=== PATIENT | male | born 1945 | race Caucasian/White ===

== ENCOUNTER 2023-08-05 12:43 | Outpatient (CLI) | payer MEDICARE, BC, SELFPAY ==
--- OUTSIDE RECORDS SUMMARY | 2023-08-05 12:52 | XMS_ITS | Encounter Summary ---
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 Organization [facility] Address [address] [place] [address] Support Name Relationship Address Phone JAVIER DE PAZ Next of Kin [phone] [place] [address] LC DE PAZLU Emergency Contact [phone] [place] [address] JAVIER DE PAZ Next of Kin [phone] [address] Insurance Providers: All historical and current Section Date Range: From patient's date of to the date document was created. This section includes the names of all active insurance providers for the patient. Insurance Provider Type of Coverage Plan Name Start of Policy Coverage End of Policy Coverage Group Number Member ID Insurance Provider's Telephone Number Policy Kevin's Name Patient's Relationship to Policy Kevin BS [place] [facility] [id number] Jan 05, 2010 [id number] [employer] ANUSHA DE PAZ PATIENT MEDICARE ([facility]) MEDICARE () PART A Jan 05, 2010 PART A [id number] [phone] ANUSHA DE PAZ PATIENT MEDICARE ([facility]) MEDICARE () PART B Jan 05, 2010 PART B [id number] [phone] ANUSHA DE PAZ PATIENT MEDICARE ([place]) MEDICARE () PART A Jan 05, 2010 PART A [id number] [facility] ANUSHA DE PAZ PATIENT MEDICARE (WN) MEDICARE (M) PART A Jan 05, 2010 PART A [id number] [phone] ANUSHA DE PAZ PATIENT MEDICARE ([facility]) MEDICARE (M) PART B Jan 05, 2010 PART B [id number] [facility] [phone] ANUSHA DE PAZ PATIENT Selected Encounter This section includes the information on record at [facility] for the Encounter. Date/Time Encounter Type Encounter Description Reason Pro vider Source Feb 19, 2023 08:08 PM Outpatient Encounter COMMUNITY CARE CONSULT I[facility] Encounter Template Text not used by [facility] Plan of Treatment: Future Appointments (+ 6 months) and Future Tests (+/- 45 days) The Plan of Treatment section includes future care activities for the patient from all [facility] treatmentfacilities. This section includes future appointments and future orders which are active, pending or scheduled. Future Appointments This section includes appointments that were scheduled to occur 6 months from the date of the Encounter, up to a maximum of 20 appointments. The data comes from all [facility] treatment facilities. Appointment Date/Time Appointment Type Appointme nt Facility Name Apr 16, 2023 12:00 PM [facility] Jul 17, 2023 03:00 PM [facility] Social History: Smoking Status (Most current) and Tobacco Use (All prior to encounter date) This section includes the most current, and the historical, smoking and tobacco- related health factors from the [facility] facility where the Encounter took place. Current Smoking Status This section includes the most current smoking, or tobacco-related health factor, from the [facility] facility where the Encounter took place. Date/Time Current Smoking Status Comment Liam itheather August 07, 2022 01:30 PM VA-TOBACCO FORMER USER [facility] Tobacco Use History This section includes a history of the smoking, or tobacco-related health factors, that were collected on or before the date of the Encounter. The data comes from the [facility] facility where the Encounter took place. 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 [facility] Mar 29, 2019 10:59 AM VA-TOBACCO USE MED NO [facility] Mar 29, 2019 10:59 AM VA-TOBACCO USE WI 30 MIN OF WAKE UP [facility] Mar 29, 2019 10:59 AM VA-TOBACCO USER EVERY DAY [facility] Feb 17, 2018 03:39 PM VA-TOBACCO USE 30 YEARS OR MORE [facility] Feb 17, 2018 03:39 PM VA-TOBACCO USE ADVICE [facility] Feb 17, 2018 03:39 PM VA-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 USE 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 NO [facility] Feb 17, 2018 03:39 PM VA-TOBACCO USE MED NO [facility] Feb 17, 2018 03:39 PM VA-TOBACCO USE WI 30 MIN OF WAKE UP [facility] Feb 17, 2018 03:39 PM VA-TOBACCO USER EVERY DAY [facility] Feb 12, 2017 12:38 PM CURRENT TOBACCO USER [facility] Apr 25, 2015 07:50 AM CURRENT TOBACCO USER [facility] Apr 21, 2014 08:25 AM CURRENT TOBACCO USER [facility] Apr 20, 2013 10:04 AM CURRENT TOBACCO USER [facility] Mar 20, 2012 09:53 AM CURRENT TOBACCO USER [facility] Feb 06, 2011 09:44 AM CURRENT TOBACCO USER [facility] Jan 02, 2010 09:22 AM CURRENT TOBACCO USER [facility] Encounter Notes: All associated encounter notes This section contains the clinical notes associated to the Encounter. Date/Time Encounter Note(s) Provider Source Feb 19, 2023 08:08 PM PHARMACY NOTE: LOCAL TITLE: PHARMACY NON [facility] CARE MEDICATIONS STANDARD TITLE: PHARMACY NOTE DATE OF NOTE: FEB 19, 2023@20:08 ENTRY DATE: FEB 19, 2023@20:08:55 AUTHOR: ZULEYKA ESTRADA EXP COSIGNER: URGENCY: STATUS: COMPLETED [facility] RECEIVED electronic prescription(s) (eRX(s)) from NON[facility] Provider: VANITA WELCH Date eRX received: Feb Outside (NON-[facility]) provider not authorized to write for prescription(s) through [facility] pharmacy. Prescription request REDIRECTED via FAX to [facility] for review: eRx Reference #: [id number] eRx Prescription Information: eRx Drug: furosemide 20 mg tablet (LASIX) eRx Qty: 45 eRx Refills: 3 eRx Days Supply: eRx Written Date: FEB 19, 2023 eRx Issue Date: Prohibit Renewals: No eRx Sig: Lasix to 20 mg on Friday, Friday and Friday. eRx Reference #: [id number] eRx Drug: potassium chloride ER 10 mEq tablet,extended release(part/cryst) (potassium chloride) eRx Qty: 45 eRx Refills: 3 eRx Days Supply: eRx Written Date: FEB 19, 2023 eRx Issue Date: Prohibit Renewals: No eRx Sig: Potassium 10 meq on Friday, Friday and Friday. /naina/ ZULEYKA ESTRADA pharmacist Signed: 02/19/2023 20:10 ZULEYKA ESTRADA [facility]
--- OUTSIDE RECORDS SUMMARY | 2023-08-05 12:52 | XMS_ITS | Continuity of Care Document ---
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 It does not include entries that were removed or entered in error. Problem Status Onset Date Problem Type Date of Resolution Comments Source CVD - Cerebrovascular Disease ([facility] 39894842) Active 03/19/20 20 Condition May 01, 2020 Entered By: YOAV CHAUHAN Comment: 03/19/20: L MCA CVA, Admit ANW. Cardio-embol ic d/t Warfarin DC [facility] CAD - Coronary Artery Disease ([facility] 61608193) Active 01/27/20 20 Condition Mar 13, 2020 Entered By: YOAV CHAUHAN Comment: 01/27/20: LAD and Dx stented w/SATHYA at [facility]. Plavix +ASA thru 01/26/21 [facility] Peripheral arterial insufficiency Active 01/21/20 20 Condition Mar 13, 2020 Entered By: YOAV CHAUHAN Comment: 01/21/20: L femoral Art occlusion per [facility]-->Fem -Tibial bypass planned [facility] Allergic rhinitis (SNOMED CT 07988807) Active Condition [facility] Atrial fibrillation (SNOMED CT 56703163) Active Condition Apr 26, 2015 Entered By: YOAV CHAUHAN Comment: Warfarin through Miryam Rodriguez [facility] Co-Managed Care Active Condition Dec 25, 2017 Entered By: YOAV CHAUHAN Comment: Dr Garcia, Michael [place], F: [phone] , [facility] COPD - Chronic Obstructive Pulmonary Disease ([facility] [id number]) Active Condition Dec 25, 2017 Entered By: YOAV CHAUHAN Comment: Mometasone & Albuterol MDI's [facility] [place] of toe Active Condition Sep 08, 2019 Entered By: YOAV CHAUHAN Comment: R middle toe [facility] Current smoker Active Condition Apr 082015 Entered By: YOAV CHAUHAN Comment: Cigars, not cigarettes [facility] Essential hypertension (SNOMED CT 80549466) Active Condition [facility] Glucose intolerance Active Condition [facility] Nocturia due to benign prostatic hypertrophy Active Condition [facility] Health Maintenance (ICD-9-CM V65.9) Inactive Condition 04/26/2015 [place] MANCILLA [facility] Diagnosis: ICD-10-CM Z00.01 Encounter for general adult medical exam w abnormal findings [facility] Diagnosis [facility] Diagnosis: ICD-10-CM Z79.01 halfway (current) use of anticoagulants Active Diagnosis [facility] Diagnosis: ICD-10-CM Z76.0 Encounter for issue of repeat prescription Active Diagnosis [facility] Medications Combined list of outpatient medications from Department of Defense and Veterans Affairs facilities.Medications provided include 1) outpatient medications from the last 15 months, and 2) patient-reported medications. Medication Details Route Status Patient Instructions Prescription Expires Prescription Number Last Dispense Date Ordering Provider Order Date Order Qty Source ALBUTEROL 90MCG/ACTUA T (CFC-F) INHL,ORAL,8 .5GM DOSE COUNTER INHALE 2 PUFFS BY INHALATI ON FOUR TIMES A DAY NEEDED FOR SHORTNES S OF BREATH INHALA TION HOLD 07/17/2024 [id number] AFRICA CHAUHAN 2023 2 [facility] ALBUTEROL 90MCG/ACTUA T (CFC-F) INHL,ORAL,8 .5GM DOSE COUNTER INHALE 2 PUFFS BY INHALATI ON FOUR TIMES A DAY NEEDED FOR SHORTNES S OF BREATH INHALA TION DISCONT INUED 08/08/2023 [id number] 3 AFRICA CHAUHAN 2022 2 [facility] APIXABAN 5MG TAB TAKE ONE TABLET BY MOUTH EVERY 12 HOURS TO PREVENT BLOOD CLOTS AND STROKE (ELIQUIS ) ORALLY ACTIVE 05/29/2024 [id number] 4 MARIANO GARCIA 2023 180 [facility] APIXABAN 5MG TAB TAKE ONE TABLET BY MOUTH EVERY 12 HOURS TO PREVENT BLOOD CLOTS AND STROKE (ELIQUIS ) ORALLY DISCONT INUED 05/09/2023 [id number] 3 MARIANO GARCIA 2022 180 [facility] APIXABAN 5MG TAB TAKE ONE TABLET BY MOUTH EVERY 12 HOURS TAKE DIRECTED BY [facility], . (TRAVELI NG VET-CONT INUATION OF THERAPY) ORAL 06/08/2022 [id number] 3 CÉSAR GALLEGOS 2022 28 [facility] KEATING [facility] CHOLECALCIF JONNA 25MCG (1,000UNIT) TAB TAKE FIVE TABLETS BY MOUTH QOD ORALLY ACTIVE AFRICA CHAUHAN 2016 [facility] FLUOCINONID E 0.1% CREAM,TOP APPLY A THIN LAYER TOPICALL Y TWICE A DAY NEEDED FOR RASH TOPICA LLY ACTIVE 12/13/2023 [id number] 3 AFRICA CHAUHAN 2022 60 [facility] FLUTICASONE 250MCG/SALM ETEROL 50MCG INHL,ORAL,D ISKUS,60 INHALE 1 PUFF BY INHALATI ON TWICE A DAY FOR COPD INHALA TION ACTIVE 07/17/2024 [id number] 4 AFRICA CHAUHAN 2023 3 [facility] FLUTICASONE 250MCG/SALM ETEROL 50MCG INHL,ORAL,D ISKUS,60 INHALE 1 PUFF BY INHALATI ON TWICE A DAY FOR COPD THIS REPLACES YOUR MOMETASO NE INHALA TION DISCONT INUED 08/08/2023 [id number] 4 AFRICA CHAUHAN 2022 3 [facility] FUROSEMIDE 20MG TAB TAKE ONE TABLET BY MOUTH THREE TIMES A WEEK FOR HEART FAILURE ORALLY ACTIVE 02/25/2024 [id number] 3 Hong DONAHUE 2022 39 [facility] FUROSEMIDE 20MG TAB TAKE ONE TABLET BY MOUTH EVERY OTHER DAY FOR HEART FAILURE ORALLY DISCONT INUED (EDIT) 08/13/2023 [id number] 3 AFRICA CHAUHAN [place] 2022 45 [facility] FUROSEMIDE 20MG TAB TAKE ONE TABLET BY MOUTH EVERY MORNING FOR HEART FAILURE ORALLY DISCONT INUED 08/08/2023 [id number] 3 AFRICA CHAUHAN [place] 2022 90 [facility] FUROSEMIDE 20MG TAB TAKE ONE TABLET BY MOUTH EVERY MORNING FOR HEART FAILURE ORALLY DISCONT INUED 11/16/2022 [id number] 3 CHAUHAN, AFRICA CHARLTON 2021 90 [facility] HYDROCHLORO THIAZIDE 12.5MG TAB TAKE ONE TABLET BY MOUTH EVERY DAY FOR BLOOD PRESSURE ORALLY DISCONT INUED 08/08/2023 [id number] 3 CHAUHAN, AFRICA CHARLTON 2022 90 [facility] METOPROLOL SUCCINATE 100MG TAB,SA TAKE ONE AND ONE-HALF TABLETS BY MOUTH EVERY DAY ORALLY DISCONT INUED 11/16/2022 [id number] 3 TIEN AFRICA CHARLTON 2021 135 [facility] METOPROLOL SUCCINATE 50MG TAB,SA TAKE THREE TABLETS BY MOUTH EVERY DAY FOR BLOOD PRESSURE ORALLY DISCONT INUED 08/08/2023 [id number] 3 CHAUHAN, AFRICA CHARLTON 2022 270 [facility] METOPROLOL TARTRATE 100MG TAB TAKE ONE TABLET BY MOUTH TWICE A DAY FOR BLOOD PRESSURE ORALLY ACTIVE 12/13/2023 [id number] 4 TIEN AFRICA CHARLTON 2022 180 [facility] MOMETASONE FUROATE 220MCG/INHL INHL,ORAL,6 0 INHALE 1 PUFF BY MOUTH TWICE A DAY TO PREVENT TROUBLE BREATHIN G TWIST COVER ON AND OFF TO LOAD NEXT DOSERI NSE MOUTH AFTER USING * DO NOT WASH INHALER ORALLY DISCONT INUED 11/16/2022 [id number] 3 CHAUHAN, AFRICA LATESHA 2021 3 [facility] NIFEDIPINE (EQV-CC) 60MG TAB,SA TAKE ONE TABLET BY MOUTH EVERY DAY FOR BLOOD PRESSURE ORALLY DISCONT INUED BY PROVIDE R 08/08/2023 [id number] 3 AFRICA CHAUHAN 2022 90 [facility] NIFEDIPINE (EQV-CC) 60MG TAB,SA TAKE ONE TABLET BY MOUTH EVERY DAY FOR BLOOD PRESSURE ORALLY DISCONT INUED 09/11/2022 [id number] 3 AFRICA CHAUHAN 2022 90 [facility] NIFEDIPINE (EQV-CC) 60MG TAB,SA TAKE ONE TABLET BY MOUTH EVERY DAY FOR BLOOD PRESSURE ORALLY DISCONT INUED 08/28/2022 [id number] 3 AFRICA CHAUHAN 2022 90 [facility] NIFEDIPINE (EQV-CC) 90MG TAB,SA TAKE ONE TABLET BY MOUTH EVERY DAY FOR BLOOD PRESSURE ORALLY SUSPEND ED 07/17/2024 [id number] 4 AFRICA CHAUHAN 2023 90 [facility] NIFEDIPINE (EQV-CC) 90MG TAB,SA TAKE ONE TABLET BY MOUTH EVERY DAY FOR BLOOD PRESSURE INCREASE D DOSE PER CO-MANAG ED CARE INCREASE D DOSE PER CO-MANAG ED CARE ORALLY DISCONT INUED 12/13/2023 [id number] 4 AFRICA CHAUHAN 2022 90 [facility] POTASSIUM CHLORIDE 10MEQ TAB,SA TAKE ONE TABLET BY MOUTH THREE TIMES A WEEK FOR POTASSIU M SUPPLEME NT TAKE WITH FUROSEMI DE ORALLY ACTIVE 02/25/2024 [id number] 3 Hong DONAHUE UCESAR A 2022 39 [facility] POTASSIUM CHLORIDE 10MEQ TAB,SA TAKE ONE TABLET BY MOUTH EVERY OTHER DAY FOR POTASSIU M SUPPLEME NT ORALLY DISCONT INUED (EDIT) 08/13/2023 [id number] 3 AFRICA CHAUHAN 2022 45 [facility] POTASSIUM CHLORIDE 10MEQ TAB,SA TAKE ONE TABLET BY MOUTH EVERY DAY FOR CONGESTI VE HEART FAILURE ORALLY DISCONT INUED 08/08/2023 [id number] 3 AFRICA CHAUHAN 2022 90 [facility] POTASSIUM CHLORIDE 10MEQ TAB,SA TAKE ONE TABLET BY MOUTH EVERY DAY FOR CONGESTI VE HEART FAILURE ORALLY DISCONT INUED 11/16/2022 [id number] 3 AFRICA CHAUHAN 2021 90 [facility] ROSUVASTATI N CA 20MG TAB TAKE ONE TABLET BY MOUTH AT BEDTIME FOR CORONARY ARTERY DISEASE ORALLY HOLD 07/17/2024 [id number] AFRICA CHAUHAN 2023 90 [facility] ROSUVASTATI N CA 20MG TAB TAKE ONE TABLET BY MOUTH AT BEDTIME FOR CORONARY ARTERY DISEASE ORALLY DISCONT INUED 08/08/2023 [id number] 4 AFRICA CHAUHAN 2022 90 [facility] ROSUVASTATI N CA 40MG TAB TAKE ONE-HALF TABLET BY MOUTH AT BEDTIME FOR CORONARY ARTERY DISEASE ORALLY DISCONT INUED 11/15/2022 [id number] 3 AFRICA CHAUHAN 2021 45 [facility] TAMSULOSIN HCL 0.4MG CAP TAKE ONE CAPSULE BY MOUTH EVERY EVENING FOR PROSTATE ORALLY ACTIVE 07/17/2024 [id number] 4 AFRICA CHAUHAN 2023 30 [facility] Allergies, Adverse Reactions, Alerts Combined list of allergies from Department of Defense and Veterans Affairs facilities. It does not include entries that were removed or entered in error. Substance Category Reaction Severity Reaction type Status Date Reported Comments Source LISINOPRIL Propensity to adverse reactions to drug (finding) Cough active 0 [facility] Immunizations Combined list of available immunizations from the Department of Defense and Veterans Affairs facilities. Immunization Series Date Given Administered By Site Reaction Lot Number CVX Code Drug Admissions Assistant Status Comments Source COVID-19 ([employer]), MRNA, LNP-S, BIVALENT, PF, 30 MCG/0.3 ML DOSE 2022 300 complet ed [facility] COVID-19 (PFIZER), MRNA, LNP-S, PF, 30 MCG/0.3 ML DOSE, JAMES-SUCROSE (AGES 12+ YEARS) 2021 217 complet ed [facility] COVID-19 (PFIZER), MRNA, LNP-S, PF, 30 MCG/0.3 ML DOSE 2020 208 complet ed [facility] ZOSTER RECOMBINANT 2 2020 187 complet [facility] INFLUENZA VACCINE, QUADRIVALENT, ADJUVANTED 2020 205 complet ed [facility] INFLUENZA, UNSPECIFIED FORMULATION 2020 88 complet ed [facility] ZOSTER RECOMBINANT 1 2020 187 complet [facility] COVID-19 (PFIZER), MRNA, LNP-S, PF, 30 MCG/0.3 ML DOSE 2 2020 208 complet ed [facility] COVID-19 (PFIZER), MRNA, LNP-S, PF, 30 MCG/0.3 ML DOSE 1 2020 208 complet ed [facility] INFLUENZA VACCINE, QUADRIVALENT, ADJUVANTED 2019 205 complet ed [facility] INFLUENZA, TRIVALENT, ADJUVANTED 2018 168 complet ed [facility] INFLUENZA, SEASONAL, INJECTABLE 2018 141 complet ed [facility] INFLUENZA, SEASONAL, INJECTABLE 2017 141 complet ed [facility] INFLUENZA, TRIVALENT, ADJUVANTED 2017 168 complet ed [facility] INFLUENZA, HIGH DOSE SEASONAL 2016 135 complet ed [facility] PNEUMOCOCCAL POLYSACCHARID E PPV23 2016 33 complet ed [employer] , [id number], 06/03/18 [facility] TD (ADULT), 2 LF TETANUS TOXOID, PRESERVATIVE FREE, ADSORBED 2016 09 complet ed [employer] [id number], 12/19/18 [facility] INFLUENZA, HIGH DOSE SEASONAL 2016 135 complet ed [facility] PNEUMOCOCCAL POLYSACCHARID E PPV23 2016 33 complet ed [facility] INFLUENZA, HIGH DOSE SEASONAL 2015 135 complet ed [facility] PNEUMOCOCCAL CONJUGATE PCV 13 2015 133 complet ed [employer] [facility] PNEUMOCOCCAL CONJUGATE PCV 13 2014 133 complet ed [facility] INFLUENZA, UNSPECIFIED FORMULATION 2013 88 complet ed [facility] INFLUENZA, UNSPECIFIED FORMULATION 2013 88 complet ed [facility] INFLUENZA, UNSPECIFIED FORMULATION 2011 88 complet ed [facility] INFLUENZA, UNSPECIFIED FORMULATION 2010 88 complet ed [facility] PNEUMOCOCCAL, UNSPECIFIED FORMULATION 2009 109 complet ed [employer],093 02, 011 [facility] TDAP 2009 115 complet ed [facility] ZOSTER LIVE 2008 121 complet ed [facility] TDAP 2007 115 complet ed private [facility] ZOSTER LIVE 2006 121 complet ed [facility] Results Combined list of recent chemistry, hematology and other laboratory results from Department of Defense and Veterans Affairs, ranging from 15 months to all on record, depending upon the facility. Order Name Results Value Reference Range Date Interpretation Specimen Comments Source URINALYS IS COLOR OF URINE COLORLES S 07/16 Specimen Type: URINE No comment entered. Ordering Provider: TERRENCE CHAUHAN Report Released Date/Time: Jul 17, 2023 04:23 PM Reporting Lab: [facility] [address] Performing Lab: [facility] [address] [facility] URINALYS IS SPECIFIC GRAVITY OF URINE 1.006 1.003 - 1.035 07/16 Specimen Type: URINE No comment entered. Ordering Provider: TERRENCE CHAUHAN Report Released Date/Time: Jul 17, 2023 04:23 PM Reporting Lab: [facility] [address] Performing Lab: [facility] [address] [facility] URINALYS IS BILIRUBIN. TOTAL [PRESENCE] IN URINE BY TEST STRIP NEGATIVE 07/16 Specimen Type: URINE No comment entered. Ordering Provider: TERRENCE CHAUHAN Report Released Date/Time: Jul 17, 2023 04:23 PM Reporting Lab: [facility] [address] Performing Lab: [facility] [address] [place] [facility] URINALYS IS KETONES [MASS/VOLU ME] IN URINE BY TEST STRIP NEGATIVE 07/16 Specimen Type: URINE No comment entered. Ordering Provider: TERRENCE CHAUHAN Report Released Date/Time: Jul 17, 2023 04:23 PM Reporting Lab: [facility] [address] Performing Lab: [facility] [address] [place] [facility] URINALYS IS GLUCOSE [MASS/VOLU ME] IN URINE BY TEST STRIP NEGATIVE 07/16 Specimen Type: URINE No comment entered. Ordering Provider: TERRENCE CHAUHAN Report Released Date/Time: Jul 17, 2023 04:23 PM Reporting Lab: [facility] [address] Performing Lab: [facility] [address] [place] [facility] URINALYS IS PROTEIN [MASS/VOLU ME] IN URINE BY TEST STRIP NEGATIVE 07/16 Specimen Type: URINE No comment entered. Ordering Provider: TERRENCE CHAUHAN Report Released Date/Time: Jul 17, 2023 04:23 PM Reporting Lab: [facility] [address] Performing Lab: [facility] [address] [place] [facility] URINALYS IS PH OF URINE BY TEST STRIP 7.0 5.0 - 8.0 07/16 Specimen Type: URINE No comment entered. Ordering Provider: TERRENCE CHAUHAN Report Released Date/Time: Jul 17, 2023 04:23 PM Reporting Lab: [facility] [address] Performing Lab: [facility] [address] [place] [facility] URINALYS IS LEUKOCYTES [#/AREA] IN URINE SEDIMENT BY MICROSCOPY HIGH POWER FIELD <1 0 - 7 07/16 Specimen Type: URINE No comment entered. Ordering Provider: TERRENCE CHAUHAN Report Released Date/Time: Jul 17, 2023 04:23 PM Reporting Lab: [facility] [address] Performing Lab: [facility] [address] [place] [facility] URINALYS IS BACTERIA [PRESENCE] IN URINE SEDIMENT BY LIGHT MICROSCOPY NONE SEEN 07/16 Specimen Type: URINE No comment entered. Ordering Provider: TERRENCE CHAUHAN Report Released Date/Time: Jul 17, 2023 04:23 PM Reporting Lab: [facility] [address] Performing Lab: [facility] [address] [place] [facility] URINALYS IS ERYTHROCYT ES [#/AREA] IN URINE SEDIMENT BY MICROSCOPY HIGH POWER FIELD <1 0 - 3 07/16 Specimen Type: URINE No comment entered. Ordering Provider: TERRENCE CHAUHAN Report Released Date/Time: Jul 17, 2023 04:23 PM Reporting Lab: [facility] [address] Performing Lab: [facility] [address] [place] [facility] URINALYS IS APPEARANCE OF URINE CLEAR 07/16 Specimen Type: URINE No comment entered. Ordering Provider: TERRENCE CHAUHAN Report Released Date/Time: Jul 17, 2023 04:23 PM Reporting Lab: [facility] [address] Performing Lab: [facility] [phone] [place] [facility] URINALYS IS EPITHELIAL CELLS.SQUA MOUS [#/AREA] IN URINE SEDIMENT BY MICROSCOPY HIGH POWER FIELD NONE SEEN 07/16 Specimen Type: URINE No comment entered. Ordering Provider: TERRENCE CHAUHAN Report Released Date/Time: Jul 17, 2023 04:23 PM Reporting Lab: [facility] [address] Performing Lab: [facility] [address] [place] [facility] URINALYS IS HEMOGLOBIN [PRESENCE] IN URINE BY TEST STRIP NEGATIVE 07/16 Specimen Type: URINE No comment entered. Ordering Provider: TERRENCE CHAUHAN Report Released Date/Time: Jul 17, 2023 04:23 PM Reporting Lab: [facility] [address] Performing Lab: [facility] [address] [place] [facility] URINALYS IS NITRITE [PRESENCE] IN URINE BY TEST STRIP NEGATIVE 07/16 Specimen Type: URINE No comment entered. Ordering Provider: TERRENCE CHAUHAN Report Released Date/Time: Jul 17, 2023 04:23 PM Reporting Lab: [facility] [address] Performing Lab: [facility] [address] [place] [facility] URINALYS IS LEUKOCYTE ESTERASE [PRESENCE] IN URINE BY TEST STRIP NEGATIVE 07/16 Specimen Type: URINE No comment entered. Ordering Provider: TERRENCE CHAUHAN Report Released Date/Time: Jul 17, 2023 04:23 PM Reporting Lab: [facility] [address] Performing Lab: [facility] [address] [place] [facility] HEMOGLOB IN A1C HEMOGLOBIN A1C/HEMOGL OBIN.TOTAL IN BLOOD 6.0 4.0 - 6.0 07/16 Specimen Type: BLOOD Comment: Values obtained from A1C measurement s can vary. For typical A1C assays, a reported value of 7.0 could actually be between 6.7 and 7.3 if measured by a reference method. A reported value of 9.0 could actually be between 8.7 and 9.3. Ref: http://www. ngsp.org/[place] Pdata.asp Ordering Provider: TERRENCE CHAUHAN Report Released Date/Time: August 07, 2022 02:21 PM Reporting Lab: [facility] [address] Performing Lab: [facility] [address] [place] [facility] BASIC METABOLI C PANEL+MG CREATININE [MASS/VOLU ME] IN SERUM OR PLASMA 1.3 0.7 - 1.2 07/16 H Specimen Type: PLASMA No comment entered. Ordering Provider: TERRENCE CHAUHAN Report Released Date/Time: August 07, 2022 02:21 PM Reporting Lab: [facility] [address] Performing Lab: [facility] [address] [place] [facility] BASIC METABOLI C PANEL+MG UREA NITROGEN [MASS/VOLU ME] IN SERUM OR PLASMA 15 8 - 26 07/16 Specimen Type: PLASMA No comment entered. Ordering Provider: TERRENCE CHAUHAN Report Released Date/Time: August 07, 2022 02:21 PM Reporting Lab: [facility] [address] Performing Lab: [facility] [address] [place] [facility] BASIC METABOLI C PANEL+MG GLUCOSE [MASS/VOLU ME] IN SERUM OR PLASMA 84 70 - 100 07/16 Specimen Type: PLASMA No comment entered. Ordering Provider: TERRENCE CHAUHAN Report Released Date/Time: August 07, 2022 02:21 PM Reporting Lab: [facility] [address] Performing Lab: [facility] [address] [place] [facility] BASIC METABOLI C PANEL+MG SODIUM [MOLES/VOL UME] IN SERUM OR PLASMA 137 136 - 145 07/16 Specimen Type: PLASMA No comment entered. Ordering Provider: TERRENCE CHAUHAN Report Released Date/Time: August 07, 2022 02:21 PM Reporting Lab: [facility] [address] Performing Lab: [facility] [address] [place] [facility] BASIC METABOLI C PANEL+MG POTASSIUM [MOLES/VOL UME] IN SERUM OR PLASMA 4.6 3.5 - 5.1 07/16 Specimen Type: PLASMA No comment entered. Ordering Provider: TERRENCE CHAUHAN Report Released Date/Time: August 07, 2022 02:21 PM Reporting Lab: [facility] [address] Performing Lab: [facility] [address] [place] [facility] BASIC METABOLI C PANEL+MG CHLORIDE [MOLES/VOL UME] IN SERUM OR PLASMA 105 98 - 107 07/16 Specimen Type: PLASMA No comment entered. Ordering Provider: TERRENCE CHAUHAN Report Released Date/Time: August 07, 2022 02:21 PM Reporting Lab: [facility] [address] Performing Lab: [facility] [address] [place] [facility] BASIC METABOLI C PANEL+MG CARBON DIOXIDE, TOTAL [MOLES/VOL UME] IN SERUM OR PLASMA 24 22 - 29 07/16 Specimen Type: PLASMA No comment entered. Ordering Provider: TERRENCE CHAUHAN Report Released Date/Time: August 07, 2022 02:21 PM Reporting Lab: [facility] [address] Performing Lab: [facility] [address] [place] [facility] BASIC METABOLI C PANEL+MG CALCIUM [MASS/VOLU ME] IN SERUM OR PLASMA 8.9 8.4 - 10.2 07/16 Specimen Type: PLASMA No comment entered. Ordering Provider: TERRENCE CHAUHAN Report Released Date/Time: August 07, 2022 02:21 PM Reporting Lab: [facility] [address] Performing Lab: [facility] [address] [place] [facility] BASIC METABOLI C PANEL+MG MAGNESIUM [MASS/VOLU ME] IN SERUM OR PLASMA 2.1 1.6 - 2.6 07/16 Specimen Type: PLASMA No comment entered. Ordering Provider: TERRENCE CHAUHAN Report Released Date/Time: August 07, 2022 02:21 PM Reporting Lab: [facility] [address] Performing Lab: [facility] [address] [place] [facility] BASIC METABOLI C PANEL+MG ANION GAP IN SERUM OR PLASMA 8 5 - 15 07/16 Specimen Type: PLASMA No comment entered. Ordering Provider: TERRENCE CHAUHAN Report Released Date/Time: August 07, 2022 02:21 PM Reporting Lab: [facility] [address] Performing Lab: [facility] [address] [place] [facility] BASIC METABOLI C PANEL+MG GLOMERULAR FILTRATION RATE/1.73 SQ M.PREDICTE D [VOLUME RATE/AREA] IN SERUM, PLASMA OR BLOOD BY CREATININE -BASED FORMULA (CKD-EPI 2020) 56 60 07/16 L Specimen Type: PLASMA No comment entered. Ordering Provider: TERRENCE CHAUHAN Report Released Date/Time: August 07, 2022 02:21 PM Reporting Lab: [facility] [address] Performing Lab: [facility] [address] [place] [facility] CBC LEUKOCYTES [#/VOLUME] IN BLOOD BY AUTOMATED COUNT 8.72 4.0 - 11.0 07/16 Specimen Type: BLOOD No comment entered. Ordering Provider: TERRENCE CHAUHAN Report Released Date/Time: August 07, 2022 02:21 PM Reporting Lab: [facility] [address] Performing Lab: [facility] [address] [place] [facility] CBC ERYTHROCYT ES [#/VOLUME] IN BLOOD BY AUTOMATED COUNT 4.11 4.6 - 6.2 07/16 L Specimen Type: BLOOD No comment entered. Ordering Provider: TERRENCE CHAUHAN Report Released Date/Time: August 07, 2022 02:21 PM Reporting Lab: [facility] [address] Performing Lab: [facility] [id number] [place] [facility] CBC HEMOGLOBIN [MASS/VOLU ME] IN BLOOD 13.4 13.5 - 17.9 07/16 L Specimen Type: BLOOD No comment entered. Ordering Provider: TERRENCE CHAUHAN Report Released Date/Time: August 07, 2022 02:21 PM Reporting Lab: [facility] [id number] Performing Lab: [facility] [address] [place] [facility] CBC HEMATOCRIT [VOLUME FRACTION] OF BLOOD BY AUTOMATED COUNT 39.7 41 - 54 07/16 L Specimen Type: BLOOD No comment entered. Ordering Provider: TERRENCE CHAUHAN Report Released Date/Time: August 07, 2022 02:21 PM Reporting Lab: [facility] [id number] Performing Lab: [facility] [address] [place] [facility] CBC MCV [ENTITIC VOLUME] BY AUTOMATED COUNT 96.6 80 - 100 07/16 Specimen Type: BLOOD No comment entered. Ordering Provider: TERRENCE CHAUHAN Report Released Date/Time: August 07, 2022 02:21 PM Reporting Lab: [facility] [address] Performing Lab: [facility] [address] [place] [facility] CBC MCH [ENTITIC MASS] BY AUTOMATED COUNT 32.6 27 - 33 07/16 Specimen Type: BLOOD No comment entered. Ordering Provider: TERRENCE CHAUHAN Report Released Date/Time: August 07, 2022 02:21 PM Reporting Lab: [facility] [address] Performing Lab: [facility] [address] [place] [facility] CBC MCHC [MASS/VOLU ME] BY AUTOMATED COUNT 33.8 32.0 - 37.5 07/16 Specimen Type: BLOOD No comment entered. Ordering Provider: TERRENCE CHAUHAN Report Released Date/Time: August 07, 2022 02:21 PM Reporting Lab: [facility] [address] Performing Lab: [facility] [address] [place] [facility] CBC PLATELETS [#/VOLUME] IN BLOOD BY AUTOMATED COUNT 159 150 - 400 07/16 Specimen Type: BLOOD No comment entered. Ordering Provider: TERRENCE CHAUHAN Report Released Date/Time: August 07, 2022 02:21 PM Reporting Lab: [facility] [address] Performing Lab: [facility] [address] [place] [facility] CBC PLATELET MEAN VOLUME [ENTITIC VOLUME] IN BLOOD BY AUTOMATED COUNT 9.6 7.4 - 10.4 07/16 Specimen Type: BLOOD No comment entered. Ordering Provider: TERRENCE CHAUHAN Report Released Date/Time: August 07, 2022 02:21 PM Reporting Lab: [facility] [address] Performing Lab: [facility] [address] [place] [facility] CBC ERYTHROCYT E DISTRIBUTI ON WIDTH [RATIO] BY AUTOMATED COUNT 14.1 11.5 - 14.5 07/16 Specimen Type: BLOOD No comment entered. Ordering Provider: TERRENCE CHAUHAN Report Released Date/Time: August 07, 2022 02:21 PM Reporting Lab: [facility] [address] Performing Lab: [facility] [address] [place] [facility] LIVER FUNCTION TESTS BILIRUBIN. TOTAL [MASS/VOLU ME] IN SERUM OR PLASMA 0.8 0.2 - 1.2 07/16 Specimen Type: PLASMA No comment entered. Ordering Provider: TERRENCE CHAUHAN Report Released Date/Time: August 07, 2022 02:21 PM Reporting Lab: [facility] [address] Performing Lab: [facility] [address] [place] [facility] LIVER FUNCTION TESTS ALKALINE PHOSPHATAS E [ENZYMATIC ACTIVITY/V OLUME] IN SERUM OR PLASMA 52 40 - 150 07/16 Specimen Type: PLASMA No comment entered. Ordering Provider: TERRENCE CHAUHAN Report Released Date/Time: August 07, 2022 02:21 PM Reporting Lab: [facility] [address] Performing Lab: [facility] [address] [place] [facility] LIVER FUNCTION TESTS ALANINE AMINOTRANS FERASE [ENZYMATIC ACTIVITY/V OLUME] IN SERUM OR PLASMA 20 <55 - 55 07/16 Specimen Type: PLASMA No comment entered. Ordering Provider: TERRENCE CHAUHAN Report Released Date/Time: August 07, 2022 02:21 PM Reporting Lab: [facility] [address] Performing Lab: [facility] [address] [place] [facility] LIVER FUNCTION TESTS ASPARTATE AMINOTRANS FERASE [ENZYMATIC ACTIVITY/V OLUME] IN SERUM OR PLASMA 19 <34 - 34 07/16 Specimen Type: PLASMA No comment entered. Ordering Provider: TERRENCE CHAUHAN Report Released Date/Time: August 07, 2022 02:21 PM Reporting Lab: [facility] [address] Performing Lab: [facility] [address] [place] [facility] LIVER FUNCTION TESTS GAMMA GLUTAMYL TRANSFERAS E [ENZYMATIC ACTIVITY/V OLUME] IN SERUM OR PLASMA 38 <64 - 64 07/16 Specimen Type: PLASMA No comment entered. Ordering Provider: TERRENCE CHAUHAN Report Released Date/Time: August 07, 2022 02:21 PM Reporting Lab: [facility] [address] Performing Lab: [facility] [address] [place] [facility] PSA PROSTATE SPECIFIC AG [MASS/VOLU ME] IN SERUM OR PLASMA 3.84 <4.00 - 4.00 07/16 Specimen Type: SERUM No comment entered. Ordering Provider: TERRENCE CHAUHAN Report Released Date/Time: August 07, 2022 02:21 PM Reporting Lab: [facility] [address] Performing Lab: [place] [address] [place] [facility] CREATINI NE(INCLU SATHYA EGFR) CREATININE [MASS/VOLU ME] IN SERUM OR PLASMA 1.2 0.7 - 1.2 04/16 Specimen Type: PLASMA No comment entered. Ordering Provider: HUYEN HYLTON Report Released Date/Time: Mar 07, 2023 02:00 PM Reporting Lab: [facility] [address] Performing Lab: [facility] [address] [place] [facility] CREATINI NE(INCLU SATHYA EGFR) GLOMERULAR FILTRATION RATE/1.73 SQ M.PREDICTE D [VOLUME RATE/AREA] IN SERUM, PLASMA OR BLOOD BY CREATININE -BASED FORMULA (CKD-EPI 2020) 62 60 04/16 Specimen Type: PLASMA No comment entered. Ordering Provider: HUYEN HYLTON Report Released Date/Time: Mar 07, 2023 02:00 PM Reporting Lab: [facility] [address] Performing Lab: [place] [id number] [facility] CBC LEUKOCYTES [#/VOLUME] IN BLOOD BY AUTOMATED COUNT 8.06 4.0 - 11.0 04/16 Specimen Type: BLOOD No comment entered. Ordering Provider: HUYEN HYLTON Report Released Date/Time: Mar 07, 2023 02:00 PM Reporting Lab: [place] [address] Performing Lab: [facility] [address] [place] [facility] CBC ERYTHROCYT ES [#/VOLUME] IN BLOOD BY AUTOMATED COUNT 4.03 4.6 - 6.2 04/16 L Specimen Type: BLOOD No comment entered. Ordering Provider: HUYEN HYLTON Report Released Date/Time: Mar 07, 2023 02:00 PM Reporting Lab: [facility] [address] Performing Lab: [facility] [address] [place] [facility] CBC HEMOGLOBIN [MASS/VOLU ME] IN BLOOD 13.1 13.5 - 17.9 04/16 L Specimen Type: BLOOD No comment entered. Ordering Provider: HUYEN HYLTON Report Released Date/Time: Mar 07, 2023 02:00 PM Reporting Lab: [place] [address] Performing Lab: [place] [id number] [place] [facility] CBC HEMATOCRIT [VOLUME FRACTION] OF BLOOD BY AUTOMATED COUNT 38.9 41 - 54 04/16 L Specimen Type: BLOOD No comment entered. Ordering Provider: HUYEN HYLTON Report Released Date/Time: Mar 07, 2023 02:00 PM Reporting Lab: [facility] [address] Performing Lab: [facility] [address] [place] [facility] CBC MCV [ENTITIC VOLUME] BY AUTOMATED COUNT 96.5 80 - 100 04/16 Specimen Type: BLOOD No comment entered. Ordering Provider: HUYEN HYLTON Report Released Date/Time: Mar 07, 2023 02:00 PM Reporting Lab: [facility] [address] Performing Lab: [facility] [address] [place] [facility] CBC MCH [ENTITIC MASS] BY AUTOMATED COUNT 32.5 27 - 33 04/16 Specimen Type: BLOOD No comment entered. Ordering Provider: HUYEN HYLTON Report Released Date/Time: Mar 07, 2023 02:00 PM Reporting Lab: [facility] [address] Performing Lab: [facility] [address] [place] [facility] CBC MCHC [MASS/VOLU ME] BY AUTOMATED COUNT 33.7 32.0 - 37.5 04/16 Specimen Type: BLOOD No comment entered. Ordering Provider: HUYEN HYLTON Report Released Date/Time: Mar 07, 2023 02:00 PM Reporting Lab: [facility] [address] Performing Lab: [place] [address] [place] [facility] CBC PLATELETS [#/VOLUME] IN BLOOD BY AUTOMATED COUNT 157 150 - 400 04/16 Specimen Type: BLOOD No comment entered. Ordering Provider: HUYEN HYLTON Report Released Date/Time: Mar 07, 2023 02:00 PM Reporting Lab: [facility] [address] Performing Lab: [facility] [address] [place] [facility] CBC PLATELET MEAN VOLUME [ENTITIC VOLUME] IN BLOOD BY AUTOMATED COUNT 9.7 7.4 - 10.4 04/16 Specimen Type: BLOOD No comment entered. Ordering Provider: HUYEN HYLTON Report Released Date/Time: Mar 07, 2023 02:00 PM Reporting Lab: [facility] [address] Performing Lab: [facility] [address] [place] [facility] CBC ERYTHROCYT E DISTRIBUTI ON WIDTH [RATIO] BY AUTOMATED COUNT 14.5 11.5 - 14.5 04/16 Specimen Type: BLOOD No comment entered. Ordering Provider: HUYEN HYLTON Report Released Date/Time: Mar 07, 2023 02:00 PM Reporting Lab: [facility] [address] Performing Lab: [facility] [address] [place] [facility] AST/SGOT ASPARTATE AMINOTRANS FERASE [ENZYMATIC ACTIVITY/V OLUME] IN SERUM OR PLASMA 22 <34 - 34 04/16 Specimen Type: PLASMA No comment entered. Ordering Provider: HUYEN HYLTON Report Released Date/Time: Mar 07, 2023 02:00 PM Reporting Lab: [facility] [address] Performing Lab: [facility] [address] [place] [facility] ALT/SGPT ALANINE AMINOTRANS FERASE [ENZYMATIC ACTIVITY/V OLUME] IN SERUM OR PLASMA 19 <55 - 55 04/16 Specimen Type: PLASMA No comment entered. Ordering Provider: HUYEN HYLTON Report Released Date/Time: Mar 07, 2023 02:00 PM Reporting Lab: [facility] [address] Performing Lab: [facility] [address] [place] [facility] Vital Signs Combined list of inpatient and outpatient Vital Signs from Department of Defense and Veterans Affairs, ranging from 12 months to all on record, depending upon the facility. Vital Sign Value Date Comments Source Encounters Combined list of: 1) Encounters from 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 2) Encounters from the Department of Defense facilities going back up to 280 months. Location Location Details Encounter Type Encounter Number Reason For Visit Attending Provider ADM Date DC Date Status Disposition Source [place] [facility] Outpatient Encounter [id number] 02/13 [facility] [place] [facility] Outpatient Encounter [id number] OLESYA ROGERS 02/14 [facility] [place] [facility] Outpatient Encounter [id number] 02/14 [facility] [place] [facility] Outpatient Encounter [id number] 04/24 [facility] EMERGENC[facility] VISIT [facility] [place] [id number] Diagnos is: ICD-10- CM Z76.0 Encount er for issue of repeat prescri ption<b r/> AICHA GALLEGOS 05/09 [facility] Outpatient Encounter [id number] 05/09 [facility] [place] [facility] Outpatient Encounter [id number] 06/12 [facility] [place] [facility] Outpatient Encounter [id number] 07/15 [place] [facility] [place] [facility] OFFICE O/P EST MOD 30-39 MIN [id number] Diagnos is: ICD-10- CM Z00.01 Encount er for general adult medical exam w abnorma l finding s
DANETTE LIN LY E 08/07 [place] [facility] [place] [facility] Outpatient Encounter [id number] 08/07 [place] [facility] [place] [facility] Outpatient Encounter [id number] OLESYA ROGERS 08/12 [place] [facility] [place] [facility] Outpatient Encounter [id number] OLESYA ROGERS M 08/12 [place] [facility] [place] [facility] Outpatient Encounter [id number] Ana CHAUHAN 09/12 [place] [facility] [place] [facility] Outpatient Encounter [id number] 11/06 [place] [facility] [place] [facility] Outpatient Encounter [id number] 12/08 [place] [facility] [place] [facility] Outpatient Encounter [id number] 12/12 [place] [facility] [place] [facility] Outpatient Encounter [id number] 01/17 [place] [facility] [place] [facility] Outpatient Encounter [id number] 02/19 [place] [facility] [place] [facility] Outpatient Encounter [id number] 02/24 [place] [facility] [place] [facility] Outpatient Encounter [id number] 03/07 [place] [facility] [place] [facility] QNHP OL DIG ASSMT&MGMT 5-10 [id number] Diagnos is: 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
ELLEN GARCIA 05/29 [facility] OFFICE O/P EST MOD 30 MIN [id number] Diagnos is: ICD-10- CM Z00.01 Encount er for general adult medical exam w abnorma l finding s
Ana CHAUHAN 07/16 [facility] Outpatient Encounter [id number] 07/17 [facility] Social History Combined list of available smoking, tobacco, and other social history from Department of Defense and Veterans Affairs facilities. Social History Type Response Date Comment Sour e Tobacco smoking status NHIS NE-TOBACCO FORMER USER 07/17/2023 [facility] History of tobacco use NE-TOBACCO QUIT 1 TO < 5 YRS 07/17/2023 [facility] History of tobacco use NE-TOBACCO FORMER USER 08/07/2022 [facility] History of tobacco use NE-TOBACCO FORMER USER 10/16/2020 [facility] History of tobacco use NE-TOBACCO USE CO UNSEL NO 03/29/2019 [facility] History of tobacco use NE-TOBACCO USE WI 30 MIN OF WAKEUP 02/17/2018 [facility] History of tobacco use CURRENT TOBACCO USER 02/12/2017 [facility] History of tobacco use CURRENT TOBACCO USER 04/25/2015 [facility] History of tobacco use CURRENT TOBACCO USER 04/21/2014 [facility] History of tobacco use CURRENT TOBACCO USER 04/20/2013 [facility] History of tobacco use CURRENT TOBACCO USER 03/20/2012 [facility] History of tobacco use CURRENT TOBACCO USER 02/06/2011 [facility] History of tobacco use CURRENT TOBACCO USER 01/02/2010 [facility]
--- OUTSIDE RECORDS SUMMARY | 2023-08-05 12:52 | XMS_ITS | Encounter Summary ---
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 Organization [facility] Address [address] [place] [address] Support Name Relationship Address Phone JAVIER DE PAZ Next of Kin [phone] [place] [address] LC DE PAZLU Emergency Contact [phone] [place] [phone] JAVIER DE PAZ Next of Kin [phone] [place] [address] Insurance Providers: All historical and current [...] Patient's Relationship to Policy Kevin BS [place] [facility] ([facility]) [facility] [id number] Jan 05, 2010 [id number] [employer] ANUSHA DE PAZ PATIENT MEDICARE ([facility]) MEDICARE () PART A Jan 05, 2010 PART A [id number] [phone] ANUSHA DE PAZ PATIENT MEDICARE (WN) MEDICARE () PART B Jan 05, 2010 PART B [id number] ANUSHA DE PAZ PATIENT MEDICARE (WN) MEDICARE () PART A Jan 05, 2010 PART A [id number] [facility] ANUSHA DE PAZ PATIENT MEDICARE (WN) MEDICARE (M) PART B Jan 05, 2010 PART B [id number] [facility] [phone] ANUSHA DE PAZ PATIENT MEDICARE ([facility]) MEDICARE () PART A Jan 05, 2010 PART A [id number] [facility] [phone] ANUSHA DE PAZ PATIENT Selected Encounter This section includes the information on record at [facility] for the Encounter. Date/Time Encounter Type Encounter Description Reason Pro vider Source August 07, 2022 03:17 PM Outpatient Encounter [facility] Encounter Template Text not used by [facility] Plan of Treatment: Future Appointments (+ 6 months) and Future Tests (+/- 45 days) The Plan of Treatment section includes future care activities for the patient from all [facility] treatmentfacilities. This section includes future appointments and future orders which are active, pending or scheduled. Future Appointments This section includes appointments that were scheduled to occur 6 months from the date of the Encounter, up to a maximum of 20 appointments. The data comes from all [facility] treatment facilities. Appointment Date/Time Appointment Type Appointme nt Facility Name Sep 11, 2022 08:30 AM AMBULATORY - NONE [facility] Lab Results: +/- 30 days of the encounter This section includes the Chemistry and Hematology Lab Results on record with [facility] for the patient. Radiology Reports and Pathology Reports are provided separately, in subsequent sections. Lab Results This section contains the Chemistry/Hematology Results that were resulted 30 days before or 30 daysafter the date of the Encounter. Date/Time Source Result Type Result - Unit Interpretation Reference Range Comment August 07, 2022 01:16 PM [facility] HEMOGLOBIN A1C Specimen Type: BLOOD Comment: Values obtained from A1C measurements can vary. For typical A1C assays, a reported value of 7.0 could actually be between 6.7 and 7.3 if measured by a reference method. A reported value of 9.0 could actually be between 8.7 and 9.3. Ref: http://www.ngs p.org/CAPdata. asp Ordering Provider: SARAH CHAUHAN Report Released Date/Time: May 30, 2022 06:05 AM Reporting Lab: [facility] [phone] Performing Lab: [facility] [phone] HEMOGLOBIN A1C 5.9 4.0-6.0 August 07, 2022 01:16 PM [facility] BASIC METABOLIC PANEL+MG Specimen Type: PLASMA No comment entered. Ordering Provider: SARAH CHAUHAN Report Released Date/Time: May 30, 2022 06:05 AM Reporting Lab: [facility] [phone] Performing Lab: [facility] [id number] CREATININE 1.0 0.7-1.2 UREA NITROGEN 16 8-26 GLUCOSE 106 H 70-100 SODIUM 136 136-145 POTASSIUM 3.9 3.5-5.1 CHLORIDE 102 98-107 CO2 25 22-29 CALCIUM 9.1 8.4-10.2 MAGNESIUM 1.9 1.6-2.6 ANION GAP 9 5-15 .CREAT EGFR(CKD-EPI) 78 >60 August 07, 2022 01:16 PM [facility] LIVER FUNCTION TESTS Specimen Type: PLASMA No comment entered. Ordering Provider: SARAH CHAUHAN Report Released Date/Time: May 30, 2022 06:05 AM Reporting Lab: [facility] [id number] Performing Lab: [facility] [phone] BILIRUBIN, TOTAL 1.3 H 0.2-1.2 ALKALINE PHOSPHATASE 51 40-150 ALT/SGPT 14 <55 AST/SGOT 13 <34 GAMMA GTP 36 <64 DIR. BILIRUBIN 0.4 <0.5 August 07, 2022 01:16 PM [facility] CBC Specimen Type: BLOOD No comment entered. Ordering Provider: SARAH CHAUHAN Report Released Date/Time: May 30, 2022 06:05 AM Reporting Lab: [facility] [phone] Performing Lab: [facility] [phone] WBC 10.37 4.0-11.0 RBC 4.03 L 4.6-6.2 HGB 12.7 L 13.5-17.9 HCT 38.6 L 41-54 MCV 95.8 80-100 MCH 31.5 27-33 MCHC 32.9 32.0-37.5 PLT 173 150-400 MPV 9.7 7.4-10.4 RDW 13.8 11.5-14.5 August 07, 2022 01:16 PM [facility] AST/SGOT Specimen Type: PLASMA No comment entered. Ordering Provider: GALINDO HYLTON Report Released Date/Time: Jul 15, 2022 08:30 AM Reporting Lab: [facility] [phone] Performing Lab: [facility] [phone] AST/SGOT 12 <34 August 07, 2022 01:16 PM [facility] CREATININE(INCLUDES EGFR) Specimen Type: PLASMA No comment entered. Ordering Provider: GALINDO HYLTON Report Released Date/Time: Jul 15, 2022 08:30 AM Reporting Lab: [facility] [phone] Performing Lab: [facility] [address] CREATININE 1.0 0.7-1.2 .CREAT EGFR(CKD-EPI) 78 >60 August 07, 2022 01:16 PM [facility] CBC Specimen Type: BLOOD No comment entered. Ordering Provider: GALINDO HYLTON Report Released Date/Time: Jul 15, 2022 08:30 AM Reporting Lab: [facility] [phone] Performing Lab: [facility] [address] WBC 10.43 4.0-11.0 RBC 4.02 L 4.6-6.2 HGB 12.7 L 13.5-17.9 HCT 38.4 L 41-54 MCV 95.5 80-100 MCH 31.6 27-33 MCHC 33.1 32.0-37.5 PLT 161 150-400 MPV 9.4 7.4-10.4 RDW 13.8 11.5-14.5 August 07, 2022 01:16 PM [facility] ALT/SGPT Specimen Type: PLASMA No comment entered. Ordering Provider: GALINDO HYLTON Report Released Date/Time: Jul 15, 2022 08:30 AM Reporting Lab: [facility] [phone] Performing Lab: [facility] [phone] ALT/SGPT 12 <55 Vital Signs: All taken on the encounter date This section contains inpatient and outpatient Vital Signs collected on the date of the Encounter. Date/Time Temperature Pulse Blood Pressure Respiratory Rate SP02 Pain Height Weight Body Mass Index Source August 07, 2022 01:30 PM 97.6 F 86 /min 146/83 mm[Hg] 16 /min 97 % 1 197 lb 25 [facility] Social History: Smoking Status (Most current) and Tobacco Use (All prior to encounter date) This section includes the most current, and the historical, smoking and tobacco- related health factors from the [facility] facility where the Encounter took place. Current Smoking Status This section includes the most current smoking, or tobacco-related health factor, from the [facility] facility where the Encounter took place. Date/Time Current Smoking Status Comment Liam ity August 07, 2022 01:30 PM VA-TOBACCO FORMER USER [facility] Tobacco Use History This section includes a history of the smoking, or tobacco-related health factors, that were collected on or before the date of the Encounter. The data comes from the [facility] facility where the Encounter took place. 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 [facility] Mar 29, 2019 10:59 AM VA-TOBACCO USE MED NO [facility] Mar 29, 2019 10:59 AM VA-TOBACCO USE WI 30 MIN OF WAKE UP [facility] Mar 29, 2019 10:59 AM VA-TOBACCO USER EVERY DAY [facility] Feb 17, 2018 03:39 PM VA-TOBACCO USE 30 YEARS OR MORE [facility] Feb 17, 2018 03:39 PM VA-TOBACCO USE ADVICE [facility] Feb 17, 2018 03:39 PM 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 [facility] Feb 17, 2018 03:39 PM VA-TOBACCO USE MED NO [facility] Feb 17, 2018 03:39 PM VA-TOBACCO USE WI 30 MIN OF WAKE UP [facility] Feb 17, 2018 03:39 PM VA-TOBACCO USER EVERY DAY [facility] Feb 12, 2017 12:38 PM CURRENT TOBACCO USER [facility] Apr 25, 2015 07:50 AM CURRENT TOBACCO USER [facility] Apr 21, 2014 08:25 AM CURRENT TOBACCO USER [facility] Apr 20, 2013 10:04 AM CURRENT TOBACCO USER [facility] Mar 20, 2012 09:53 AM CURRENT TOBACCO USER [facility] Feb 06, 2011 09:44 AM CURRENT TOBACCO USER [facility] Jan 02, 2010 09:22 AM CURRENT TOBACCO USER [facility] Encounter Notes: All associated encounter notes This section contains the clinical notes associated to the Encounter. Date/Time Encounter Note(s) Provider Source August 07, 2022 03:17 PM EDUCATION NOTE: LOCAL TITLE: EDUCATION MEDICATION INSTRUCTION STANDARD TITLE: EDUCATION NOTE DATE OF NOTE: AUGUST 07, 2022@15:17 ENTRY DATE: AUGUST 07, 2022@15:17:37 AUTHOR: YOMI JOINER EXP COSIGNER: URGENCY: STATUS: COMPLETED MEDICATION EDUCATION PARTICIPANTS: Patient TEACHING STRATEGY: Face to Face READINESS TO LEARN: No barriers identified LEARNING NEEDS/OBJECTIVES Participant(s) indicates readiness to learn and has been instructed on indications, side effects, and directions for use. Participant(s) will receive medication information sheets for medications filled. Education included discussion of the following: New medication(s): WIXELA, ALBUTEROL MDI PATIENT/FAMILY RESPONSE (OUTCOME): Verbalizes critical information about the topic FOLLOW-UP RECOMMENDED: None needed /naina/ YOMI JOINER Pharmacist Signed: 08/07/2022 15:18 YOMI JOINER [facility]
--- OUTSIDE RECORDS SUMMARY | 2023-08-05 12:52 | XMS_ITS | Encounter Summary ---
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 Organization [facility] Address [address] [place] [address] Support Name Relationship Address Phone JAVIER DE PAZ Next of Kin [phone] [place] [address] LC DE PAZLU Emergency Contact [address] [place], [place] [phone] JAVIER DE PAZ Next of Kin [phone] [place] [address] Insurance Providers: All historical and current [...] Patient's Relationship to Policy Kevin BS [place] [facility] [id number] Jan 05, 2010 [id number] [employer] ANUSHA DE PAZ PATIENT MEDICARE (WNR) MEDICARE () PART A Jan 05, 2010 PART A [id number] [phone] ANUSHA DE PAZ PATIENT MEDICARE (WNR) MEDICARE (M) PART B Jan 05, 2010 PART B [id number] [phone] ANUSHA DE PAZ PATIENT MEDICARE (WNR) MEDICARE (M) PART A Jan 05, 2010 PART A [id number] [facility] ANUSHA DE PAZ PATIENT MEDICARE (WNR) MEDICARE (M) PART A Jan 05, 2010 PART A [id number] [facility] [phone] ANUSHA DE PAZ PATIENT MEDICARE (WNR) MEDICARE () PART B Jan 05, 2010 PART B [id number] [facility] [phone] ANUSHA DE PAZ PATIENT Selected Encounter This section includes the information on record at AL for the Encounter. Date/Time Encounter Type Encounter Description Reason Provider Source Jul 17, 2023 03:00 PM OFFICE O/P EST MOD 30 MIN PRIMARY CARE/MEDICINE ICD-10-CM Z00.01 Encounter for general adult medical exam w abnormal findings SARAH CONCEPCION E Encounter Template Text not used by AL Assessments - Encounter Diagnoses This section includes the primary and secondary diagnoses documented for the Encounter. Date/Time Primary/Secondary Diagnosis Diagnosis Name Provider Source Jul 18, 2023 06:19 AM PRIMARY Encounter for general adult medical exam w abnormal findings ANAIS CONCEPCION [facility] Jul 18, 2023 06:19 AM SECONDARY Athscl heart disease of [place] coronary artery w/o ang pctrs CONCEPCION,ANAIS VASQUEZ [facility] Jul 18, 2023 06:19 AM SECONDARY Benign prostatic hyperplasia with lower urinary tract symp ANAIS CONCEPCION [facility] Jul 18, 2023 06:19 AM SECONDARY Cerebrovascular disease, unspecified CONCEPCION,ANAIS [facility] Jul 18, 2023 06:19 AM SECONDARY Chronic atrial fibrillation, unspecified CONCEPCION,ANAIS VASQUEZ [facility] Jul 18, 2023 06:19 AM SECONDARY Chronic obstructive pulmonary disease, unspecified CONCEPCION,ANAIS [facility] Jul 18, 2023 06:19 AM SECONDARY Essential (primary) hypertension [facility]NA[facility] Jul 18, 2023 06:19 AM SECONDARY Hyperglycemia, unspecified [facility]CEPCIONANAIS [facility] Jul 18, 2023 06:19 AM SECONDARY Peripheral vascular disease, unspecified CONCEPCION,ANAIS [facility] Lab Results: +/- 30 days of the encounter This section includes the Chemistry and Hematology Lab Results on record with AL for the patient. Radiology Reports and Pathology Reports are provided separately, in subsequent sections. Lab Results This section contains the Chemistry/Hematology Results that were resulted 30 days before or 30 daysafter the date of the Encounter. Date/Time Source Result Type Result - Unit Interpretation Reference Range Comment Jul 17, 2023 04:34 PM [facility] URINALYSIS Specimen Type: URINE No comment entered. Ordering Provider: SARAH CONCEPCION Report Released Date/Time: Jul 17, 2023 04:23 PM Reporting Lab: [facility] [id number] Performing Lab: [facility] [id number] URINE COLOR COLORLESS SPECIFIC GRAVITY 1.006 1.003-1.035 URINE BILIRUBIN NEGATIVE NEGATIVE URINE KETONES NEGATIVE NEGATIVE URINE GLUCOSE NEGATIVE See_Comment URINE PROTEIN NEGATIVE See_Comment URINE PH 7.0 5.0-8.0 URINE WBC/HPF <1 0-7 URINE BACTERIA NONE SEEN URINE RBC/HPF <1 0-3 APPEARANCE CLEAR SQUAMOUS EPITHELIAL NONE SEEN URINE BLOOD NEGATIVE NEGATIVE URINE NITRITE NEGATIVE NEGATIVE LEUKOCYTE ESTERASE NEGATIVE NEGATIVE Jul 17, 2023 02:17 PM [facility] HEMOGLOBIN A1C Specimen Type: BLOOD Comment: Values obtained from A1C measurements can vary. For typical A1C assays, a reported value of 7.0 could actually be between 6.7 and 7.3 if measured by a reference method. A reported value of 9.0 could actually be between 8.7 and 9.3. Ref: http://www.ngs p.org/CAPdata. asp Ordering Provider: SARAH CONCEPCION Report Released Date/Time: August 07, 2022 02:21 PM Reporting Lab: [facility] [id number] Performing Lab: [facility] [address] HEMOGLOBIN A1C 6.0 4.0-6.0 Jul 17, 2023 02:17 PM [facility] BASIC METABOLIC PANEL+MG Specimen Type: PLASMA No comment entered. Ordering Provider: SARAH CONCEPCION Report Released Date/Time: August 07, 2022 02:21 PM Reporting Lab: [facility] [id number] Performing Lab: [facility] [address] CREATININE 1.3 H 0.7-1.2 UREA NITROGEN 15 8-26 GLUCOSE 84 70-100 SODIUM 137 136-145 POTASSIUM 4.6 3.5-5.1 CHLORIDE 105 98-107 CO2 24 22-29 CALCIUM 8.9 8.4-10.2 MAGNESIUM 2.1 1.6-2.6 ANION GAP 8 5-15 .CREAT EGFR(CKD-EPI) 56 L >60 Jul 17, 2023 02:17 PM [facility] CBC Specimen Type: BLOOD No comment entered. Ordering Provider: SARAH CONCEPCION Report Released Date/Time: August 07, 2022 02:21 PM Reporting Lab: [facility] [id number] Performing Lab: [facility] [address] WBC 8.72 4.0-11.0 RBC 4.11 L 4.6-6.2 HGB 13.4 L 13.5-17.9 HCT 39.7 L 41-54 MCV 96.6 80-100 MCH 32.6 27-33 MCHC 33.8 32.0-37.5 PLT 159 150-400 MPV 9.6 7.4-10.4 RDW 14.1 11.5-14.5 Jul 17, 2023 02:17 PM [facility] LIVER FUNCTION TESTS Specimen Type: PLASMA No comment entered. Ordering Provider: SARAH CONCEPCOIN Report Released Date/Time: August 07, 2022 02:21 PM Reporting Lab: [facility] [address] Performing Lab: [facility] [address] BILIRUBIN, TOTAL 0.8 0.2-1.2 ALKALINE PHOSPHATASE 52 40-150 ALT/SGPT 20 <55 AST/SGOT 19 <34 GAMMA GTP 38 <64 Jul 17, 2023 02:17 PM [facility] PSA Specimen Type: SERUM No comment entered. Ordering Provider: SARAH CONCEPCION Report Released Date/Time: August 07, 2022 02:21 PM Reporting Lab: [facility] [address] Performing Lab: [facility] [address] PSA 3.84 <4.00 Vital Signs: All taken on the encounter date This section contains inpatient and outpatient Vital Signs collected on the date of the Encounter. Date/Time Temperature Pulse Blood Pressure Respiratory Rate SP02 Pain Height Weight Body Mass Index Source Jul 17, 2023 03:21 PM 74 142/90 [facility] Jul 17, 2023 03:03 PM 98.1 82 135/93 16 96 0 74 202.7 26 [facility] Social History: Smoking Status (Most current) and Tobacco Use (All prior to encounter date) This section includes the most current, and the historical, smoking and tobacco- related health factors from the AL facility where the Encounter took place. Current Smoking Status This section includes the most current smoking, or tobacco-related health factor, from the AL facility where the Encounter took place. Date/Time Current Smoking Status Comment Liam ity Jul 17, 2023 03:00 PM VA-TOBACCO FORMER USER [facility] Tobacco Use History This section includes a history of the smoking, or tobacco-related health factors, that were collected on or before the date of the Encounter. The data comes from the AL facility where the Encounter took place. 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 [facility] Mar 29, 2019 10:59 AM VA-TOBACCO USE MED NO [facility] Mar 29, 2019 10:59 AM VA-TOBACCO USE WI 30 MIN OF WAKE UP [facility] Mar 29, 2019 10:59 AM VA-TOBACCO USER EVERY DAY [facility] Feb 17, 2018 03:39 PM VA-TOBACCO USE 30 YEARS OR MORE [facility] Feb 17, 2018 03:39 PM VA-TOBACCO USE ADVICE [facility] Feb 17, 2018 03:39 PM VA-TOBACCO USE MANAGER CUSTOMER NO [facility] Feb 17, 2018 03:39 PM VA-TOBACCO USE MED NO [facility] Feb 17, 2018 03:39 PM VA-TOBACCO USE WI 30 MIN OF WAKE UP [facility] Feb 17, 2018 03:39 PM VA-TOBACCO USER EVERY DAY [facility] Feb 12, 2017 12:38 PM CURRENT TOBACCO USER [facility] Apr 25, 2015 07:50 AM CURRENT TOBACCO USER [facility] Apr 21, 2014 08:25 AM CURRENT TOBACCO USER [facility] Apr 20, 2013 10:04 AM CURRENT TOBACCO USER [facility] Mar 20, 2012 09:53 AM CURRENT TOBACCO USER [facility] Feb 06, 2011 09:44 AM CURRENT TOBACCO USER [facility] Jan 02, 2010 09:22 AM CURRENT TOBACCO USER [facility] Encounter Notes: All associated encounter notes This section contains the clinical notes associated to the Encounter. Date/Time Encounter Note(s) Provider Source Jul 17, 2023 04:32 PM ADMINISTRATIVE NOTE: LOCAL TITLE: AFTER VISIT SUMMARY NOTE STANDARD TITLE: ADMINISTRATIVE NOTE DICT DATE: JUL 17, 2023@16:32:08 ENTRY DATE: JUL 17, 2023@16:32:08 DICTATED BY: MORGAN CONCEPCION EXP COSIGNER: URGENCY: STATUS: COMPLETED The patient was provided with a copy of an after-visit summary at the conclusion of the visit. A copy of the after-visit summary provided to the patient is available in [employer]. SCANNED DOCUMENT SIGNATURE NOT REQUIRED Electronically Filed: 07/17/2023 by: Morgan Concepcion MD Staff Physician MORGAN CONCEPCION [facility] Jul 17, 2023 03:25 PM INTERNAL MEDICINE NOTE: LOCAL TITLE: MEDICINE CLINIC NOTE STANDARD TITLE: INTERNAL MEDICINE NOTE DATE OF NOTE: JUL 17, 2023@15:25 ENTRY DATE: JUL 17, 2023@15:25:20 AUTHOR: MORGAN CONCEPCION EXP DENISIGNER: URGENCY: STATUS: COMPLETED ASSESSMENT AND PLAN Co-Managed Health Care. 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 No focal deficits. Does appear to have some receptive cognitive difficulties. Atrial fibrillation on Apixaban for anticoagulation, Metoprolol SA for rate control. Coronary artery disease status post stenting in 2020. Rosuvastatin for lipids. Hypertension treated with Nifedipine SA. L leg edema on Furosemide/KCl M-W-F. Trial of w/holding Furosemide to see if cramping will improve, continue daytime use of compression stocking(s). BPH w/Bladder Outlet Obstruction and >100ml void residual today. Trial Tamsulosin 0.4mg qday. f/u by phone next week. Lab results discussed w/pt, letter sent. Return to Clinic: Annual exam. 's 78 yr old male here for Annual Co-Management exam and follow up of problems per problem list. Co-Managed at [facility] in [place], last seen 3 months ago. 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 No focal deficits at this point. Atrial fibrillation, apixaban for anticoagulation and Metoprolol succinate for rate control. Previous stent placement in 2019. Hypertension on Nifedipine SA and Metoprolol succinate. 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 Still follows with [facility] for this. Wears knee-high compression stocking on the left leg and takes Furosemide 3 days a week. Notes cramping if he does not drink 3 glasses of water every day and wonders if it is related to the furosemide. COPD with continued exertional dyspnea. Treated with Wixela and Albuterol inhaler as needed for acute exacerbations. Hyperglycemia/prediabetes, A1c typically around 6.0%. He decided against particiapation in the IMPACT study of Metformin and prediabetes and heart disease. History of acute prostatitis in 2020 with normal PSA following treatment. He notes significant issues with polyuria at night and sense of incomplete voiding. SH: PMH/PSH/ALLERGIES Active problems - Computerized Problem List is the source for the followin. Essential hypertension (SNOMED CT 99461570) 2. Atrial fibrillation (SNOMED CT 85847424) - Warfarin through [facility] 3. Allergic rhinitis (SNOMED CT 03147994) 4. Current smoker - Cigars, not cigarettes 5. Glucose intolerance 6. COPD - Chronic Obstructive Pulmonary Disease ([facility] [id number]) - Mometasone & Albuterol MDI's 7. Co-Managed Care - Dr Garcia, [facility], F: [phone], 8. [place] of toe - R middle toe 9. Peripheral arterial insufficiency - 01/21/20: L femoral Art occlusion per [facility]-->Fem-Tibial bypass planned 10. CAD - Coronary Artery Disease ([facility] [id number]) - 01/27/20: LAD and Dx stented w/SATHYA at [facility]. Plavix +ASA thru 01/26/21 11. CVD - Cerebrovascular Disease ([facility] [id number]) - 03/19/20: L MCA CVA, Admit ANW. Cardio-embolic d/t Warfarin DC SURGERIES - NONE FOUND LISINOPRIL (Mar 05, 2010) FINAL MEDICATION RECONCILIATION See Medication Reconciliation below IM - Immunizations ADMINISTERED Immunization Series Date Facility Reaction Info COVID-19 ([facility]), MRNA, LNP-S, * 04/24/2022 [facility] [facility] COVID-19 ([facility]), MRNA, LNP-S, * 02/09/2021 [facility] [facility] COVID-19 ([facility]), MRNA, LNP-S, * 2 [facility] ([facility]), MRNA, LNP-S, * 1 05/27/2020 [facility]* COVID-19 ([facility] [facility]), MRNA, LNP-S, * 08/24/2021 [facility] [facility] INFLUENZA VACCINE, QUADRIVALENT,* 12/29/2020 [facility] [facility] INFLU[place] VACCINE, QUADRIVALENT,* 01/06/2020 [facility] [facility] [place], HIGH DOSE SEASONAL 02/12/2017 [place]* INFLUENZA, HIGH DOSE SEASONAL 04/09/2016 [facility] [facility] IN[place], HIGH DOSE SEASONAL 04/25/2015 [place] INFLUENZA, SEASONAL, INJECTABLE [place]* INFLUENZA, SEASONAL, INJECTABLE [place] INFLUENZA, TRIVALENT, ADJUVANTED 02/24/2019 [facility] [facility] INFLUEN[place], TRIVALENT, ADJUVANTED 12/23/2017 [facility] [facility] INFLUENZA, UNSPECIFIED FORMULATI* 12/29/2020 [facility]* INFLUENZA, UNSPECIFIED FORMULATI* 02/07/2014 [place] INFLUENZA, UNSPECIFIED FORMULATI* 04/20/2013 [place] INFLUENZA, UNSPECIFIED FORMULATI* 03/20/2012 [place]* INFLUENZA, UNSPECIFIED FORMULATI* 02/06/2011 [place]* PNEUMOCOCCAL CONJUGATE PCV 13 04/25/2015 [place] <C> PNEUMOCOCCAL CONJUGATE PCV 13 07/05/2014 [facility] [facility] PNEUMOCOCCAL POLYSACCHARIDE PPV23 02/12/2017 [place]* <C> PNEUMOCOCCAL POLYSACCHARIDE PPV23 04/09/2016 [facility] [facility] PNEUMOCOCCAL, UNSPECIFIED FORMUL* 01/02/2010 [place]* <C> TD (ADULT), 2 LF TETANUS TOXOID,* 02/12/2017 [place]* <C> TDAP 04/24/2009 [facility] [facility] TDAP 04/07/2007 [place]* <C> ZOSTER LIVE [place] ZOSTER LIVE 10/31/2006 [facility] [facility] ZOSTER RECOMBINANT 2 01/18/2021 [place]* ZOSTER RECOMBINANT 1 10/16/2020 [place]* CONTRAINDICATED No data available REFUSED ======= Immunization Date Facility Info INFLUENZA, UNSPECIFIED FORMULATI* 08/07/2022 [place]* <I> <C> See the Detailed Immunizations Health Summary Component[DIM] for Comments <I> See the Detailed Immunizations Health Summary Component[DIM] for Additional Information * Value is truncated; see the Detailed Immunizations Health Summary Component [DIM] for complete text EXAM Today's vital signs per nurse: Pulse 74 (07/17/2023 15:21) Blood pressure Measurement DT BP 07/17/2023 15:21 142/90 07/17/2023 15:03 135/93 08/07/2022 13:30 146/83 Weight Measurement DT WEIGHT LB(KG)[BMI] 07/17/2023 15:03 202.7(91.94)[26] 08/07/2022 13:30 197(89.36)[25] 10/16/2020 14:11 182(82.55)[23] BMI 26.1 Ambulatory without assistance or devices. No respiratory distress evident. Conversant and seems to have some difficulty understanding our conversation, asks for clarification multiple times. No carotid bruits. Heart sounds are irregularly irregular, no murmurs. Lungs are clear and full throughout. Compression stocking on the left leg. Extensive scarring over the medial lower leg, suggesting possibility of compartment syndrome surgery related to his vascular disease. PVR: 111 ml LAB PROSTATE SPECIFIC ANTIGEN: 3.84 HGB A1C: 6.0 GLUCOSE: 84 UREA NITROGEN: 15 CREATININE: 1.3 H CREATININE EGFR (CKD-EPI): 56 L SODIUM: 137 POTASSIUM: 4.6 MAGNESIUM: 2.1 CHLORIDE: 105 CO2: 24 CALCIUM: 8.9 ANION GAP: 8 BILIRUBIN,TOTAL: 0.8 ALKALINE PHOSPHATASE(37C): 52 SGOT(37C): 19 SGPT(37C): 20 GAMMA-GTP(): 38 WBC: 8.72 RBC: 4.11 L HGB: 13.4 L HCT: 39.7 L MCV: 96.6 MCH: 32.6 MCHC: 33.8 RDW: 14.1 PLT: 159 MPV: 9.6 Collection DT Spec HGBA1C 07/17/2023 14:17 BLOOD 6.0 08/07/2022 13:16 BLOOD 5.9 10/16/2020 13:54 BLOOD 6.0 PSA 3.84 SERUM (07/17/23 14:17) 14.49 H SERUM (10/16/20 13:54) 2.60 SERUM (03/29/19 10:06) Medication Reconciliation: Education Evaluations *Was medication education provided for NEW medications or CHANGES to medications? (including medication name, dose, route, reason for use, and potential side effects). Yes. Verbal education was provided to patient/caregiver and patient/caregiver verbalized understanding. TERATOGENIC MED & CONTRACEPTION REVIEW (Optional)... = MEDICATION RECONCILIATION = List Given: An updated medication list was provided to the patient/caregiver. Active and Recently Outpatient Medications (including Supplies): Issue Date Status Last Fill Active Outpatient Medications Refills Expiration 1) ALBUTEROL 90MCG (CFC-F) 200D ORAL INHL ACTIVE Issu:08-07-22 Qty: 2 for 50 days Sig: INHALE 2 Refills: 6 Last:08-07-22 PUFFS BY INHALATION FOUR TIMES A DAY Expr:08-08-23 NEEDED FOR SHORTNESS OF BREATH 2) APIXABAN 5MG TAB Qty: 180 for 90 days ACTIVE Issu:05-29-23 Sig: TAKE ONE TABLET BY MOUTH EVERY 12 Refills: 3 Last:06-08-23 HOURS TO PREVENT BLOOD CLOTS AND Expr:05-29-24 STROKE (ELIQUIS) 3) FLUOCINONIDE 0.1% TOP CREAM Qty: 60 for ACTIVE Issu:12-12-22 30 days Sig: APPLY A THIN LAYER Refills: 2 Last:12-13-22 TOPICALLY TWICE A DAY NEEDED FOR Expr:12-13-23 RASH 4) FLUTICAS 250/SALMETEROL 50 INHL DISK 60 ACTIVE Issu:08-07-22 Qty: 3 for 90 days Sig: INHALE 1 PUFF Refills: 0 Last:04-24-23 BY INHALATION TWICE A DAY FOR COPD Expr:08-08-23 THIS REPLACES YOUR MOMETASONE 5) FUROSEMIDE 20MG TAB Qty: 39 for 90 days ACTIVE Issu:02-24-23 Sig: TAKE ONE TABLET BY MOUTH THREE Refills: 3 Last:02-28-23 TIMES A WEEK FOR HEART FAILURE Expr:02-25-24 6) METOPROLOL TARTRATE 100MG TAB Qty: 180 ACTIVE Issu:12-12-22 for 90 days Sig: TAKE ONE TABLET BY Refills: 1 Last:06-20-23 MOUTH TWICE A DAY FOR BLOOD PRESSURE Expr:12-13-23 7) NIFEDIPINE (EQV-CC) 90MG SA TAB Qty: 90 ACTIVE Issu:12-12-22 for 90 days Sig: TAKE ONE TABLET BY Refills: 2 Last:07-01-23 MOUTH EVERY DAY FOR BLOOD PRESSURE Expr:12-13-23 INCREASED DOSE PER CO-MANAGED CARE 8) POTASSIUM CHLORIDE 10MEQ SA TAB Qty: 39 ACTIVE Issu:02-24-23 for 90 days Sig: TAKE ONE TABLET BY Refills: 3 Last:02-28-23 MOUTH THREE TIMES A WEEK FOR POTASSIUM Expr:02-25-24 SUPPLEMENT TAKE WITH FUROSEMIDE 9) ROSUVASTATIN CA 20MG TAB Qty: 90 for 90 ACTIVE Issu:08-07-22 days Sig: TAKE ONE TABLET BY MOUTH AT Refills: 0 Last:06-09-23 BEDTIME FOR CORONARY ARTERY DISEASE Expr:08-08-23 10) TAMSULOSIN HCL 0.4MG CAP Qty: 30 for 30 ACTIVE Issu:07-17-23 days Sig: TAKE ONE CAPSULE BY MOUTH Refills: 11 Last:07-17-23 EVERY EVENING FOR PROSTATE Expr:07-17-24 Issue Date Status Last Fill Pending Outpatient Medications Refills Expiration 1) ALBUTEROL 90MCG (CFC-F) 200D ORAL INHL PENDING Qty: 2 Sig: INHALE 2 PUFFS BY Refills: 0 INHALATION FOUR TIMES A DAY NEEDED 2) FLUTICAS 250/SALMETEROL 50 INHL DISK 60 PENDING Qty: 3 Sig: INHALE 1 PUFF BY Refills: 0 INHALATION TWICE A DAY THIS REPLACES YOUR MOMETASONE 3) NIFEDIPINE (EQV-CC) 90MG SA TAB Qty: 90 PENDING Sig: TAKE ONE TABLET BY MOUTH EVERY Refills: 0 DAY INCREASED DOSE PER CO-MANAGED CARE 4) ROSUVASTATIN CA 20MG TAB Qty: 90 Sig: PENDING TAKE ONE TABLET BY MOUTH AT BEDTIME Refills: 0 Issue Date Status Last Fill Inactive Outpatient Medications Refills Expiration 1) APIXABAN 5MG TAB Qty: 180 for 90 days DISCONTINUED Issu:05-08-22 Sig: TAKE ONE TABLET BY MOUTH EVERY 12 Refills: 0 Last:03-20-23 HOURS TO PREVENT BLOOD CLOTS AND Expr:05-09-23 STROKE (ELIQUIS) 2) FUROSEMIDE 20MG TAB Qty: 45 for 90 days DISCONTINUED Issu:08-12-22 Sig: TAKE ONE TABLET BY MOUTH EVERY (EDIT) Last:11-08-22 OTHER DAY FOR HEART FAILURE Refills: 2 Expr:08-13-23 3) FUROSEMIDE 20MG TAB Qty: 90 for 90 days DISCONTINUED Issu:08-07-22 Sig: TAKE ONE TABLET BY MOUTH EVERY Refills: 3 Last:08-07-22 MORNING FOR HEART FAILURE Expr:08-08-23 4) HYDROCHLOROTHIAZIDE 12.5MG TAB Qty: 90 DISCONTINUED Issu:08-07-22 for 90 days Sig: TAKE ONE TABLET BY Refills: 3 Last:08-07-22 MOUTH EVERY DAY FOR BLOOD PRESSURE Expr:08-08-23 5) METOPROLOL SUCCINATE 50MG SA TAB Qty: DISCONTINUED Issu:08-07-22 270 for 90 days Sig: TAKE THREE Refills: 3 Last:09-23-22 TABLETS BY MOUTH EVERY DAY FOR BLOOD Expr:08-08-23 PRESSURE 6) NIFEDIPINE (EQV-CC) 60MG SA TAB Qty: 90 DISCONTINUED Issu:08-07-22 for 90 days Sig: TAKE ONE TABLET BY Refills: 2 Last:02-20-23 MOUTH EVERY DAY FOR BLOOD PRESSURE Expr:08-08-23 7) POTASSIUM CHLORIDE 10MEQ SA TAB Qty: 45 DISCONTINUED Issu:08-12-22 for 90 days Sig: TAKE ONE TABLET BY (EDIT) Last:11-08-22 MOUTH EVERY OTHER DAY FOR POTASSIUM Refills: 2 Expr:08-13-23 SUPPLEMENT 8) POTASSIUM CHLORIDE 10MEQ SA TAB Qty: 90 DISCONTINUED Issu:08-07-22 for 90 days Sig: TAKE ONE TABLET BY Refills: 3 Last:08-07-22 MOUTH EVERY DAY FOR CONGESTIVE HEART Expr:08-08-23 FAILURE Start Date Active Non-VA Medications Refills Expiration 1) Non-VA CHOLECALCIF 25MCG (D3-1,000UNIT) ACTIVE TAB Si UNIT MOUTH EVERY OTHER DAY 23 Total Medications Follow Up Colonoscopy: Colonoscopy is due based on information available to this reminder. Patient has arranged or is choosing to arrange a Colonoscopy independent of and w/out assistance from this AL. Through [facility]. /naina/ Morgan Concepcion MD Staff Physician Signed: 07/18/2023 06:19 MORGAN CONCEPCION [facility] Jul 17, 2023 03:09 PM INTERNAL MEDICINE OUTPATIENT NOTE: LOCAL TITLE: MEDICINE CLINIC NURSING NOTE STANDARD TITLE: INTERNAL MEDICINE OUTPATIENT NOTE DATE OF NOTE: JUL 17, 2023@15:09 ENTRY DATE: JUL 17, 2023@15:09:18 AUTHOR: ANNA COTTRELL EXP COSIGNER: URGENCY: STATUS: COMPLETED MEDICINE CLINIC NURSING NOTE Has ADDENDA TYPE OF VISIT: Appointment Check In Type of appointment: In-person appointment REASON FOR VISIT: Annual and some concerns related increased need to urinate and needs medication renewal ALLERGIES: LISINOPRIL (Mar 05, 2010) VITAL SIGNS: Blood Pressure: 135/93 (07/17/2023 15:03) Pulse: 82 (07/17/2023 15:03) Respiration: 16 (07/17/2023 15:03) Temperature: 98.1 F [36.7 C] (07/17/2023 15:03) Weight: 202.7 lb [91.94 kg] (07/17/2023 15:03) Height: 74 in [188.0 cm] (07/17/2023 15:03) BMI: 26.1 O2 Sat: 96% (07/17/2023 15:03) Pain: 0 (07/17/2023 15:03) PAIN SCREEN: Patient is not having significant pain that they wish to discuss with their provider today. MEDICATION Active Outpatient Medications (including Supplies): ALBUTEROL 90MCG (CFC-F) 200D ORAL INHL INHALE 2 PUFFS BY ACTIVE INHALATION FOUR TIMES A DAY NEEDED FOR SHORTNESS OF BREATH APIXABAN 5MG TAB TAKE ONE TABLET BY MOUTH EVERY 12 HOURS ACTIVE TO PREVENT BLOOD CLOTS AND STROKE (ELIQUIS) FLUOCINONIDE 0.1% TOP CREAM APPLY A THIN LAYER TOPICALLY ACTIVE TWICE A DAY NEEDED FOR RASH FLUTICAS 250/SALMETEROL 50 INHL DISK 60 INHALE 1 PUFF BY ACTIVE INHALATION TWICE A DAY FOR COPD THIS REPLACES YOUR MOMETASONE FUROSEMIDE 20MG TAB TAKE ONE TABLET BY MOUTH THREE TIMES A ACTIVE WEEK FOR HEART FAILURE METOPROLOL TARTRATE 100MG TAB TAKE ONE TABLET BY MOUTH ACTIVE TWICE A DAY FOR BLOOD PRESSURE NIFEDIPINE (EQV-CC) 60MG SA TAB TAKE ONE TABLET BY MOUTH ACTIVE EVERY DAY FOR BLOOD PRESSURE NIFEDIPINE (EQV-CC) 90MG SA TAB TAKE ONE TABLET BY MOUTH ACTIVE EVERY DAY FOR BLOOD PRESSURE INCREASED DOSE PER CO-MANAGED CARE POTASSIUM CHLORIDE 10MEQ SA TAB TAKE ONE TABLET BY MOUTH ACTIVE THREE TIMES A WEEK FOR POTASSIUM SUPPLEMENT TAKE WITH FUROSEMIDE ROSUVASTATIN CA 20MG TAB TAKE ONE TABLET BY MOUTH AT ACTIVE BEDTIME FOR CORONARY ARTERY DISEASE Non-VA CHOLECALCIF 25MCG (D3-1,000UNIT) TAB 5000 UNIT ACTIVE MOUTH EVERY OTHER DAY Over the Counter/Herbal Medications: The patient denies taking any outside medications or herbals. Nursing Annual Screening: Fall History Screen During the past 12 months, have you had any falls? Patient does not report any falls in the past 12 months. MEDICATIONS: Patient is on one of the following medication classes: Antihypertensives, Antidepressants, Antipsychotics, Diuretics, or Controlled substance medication used for pain. Script Talk Screen Are you able to read your prescription bottles with your glasses, magnifiers or other aids? Yes or patient not taking any prescriptions. Skin Screen Patient reports any current pressure ulcers, a history of pressure ulcers, or a wound from a medical social consultant or Patient is bed-confined or a wheelchair-user or Patient requires assistance to transfer/change position No, Skin Screen is Negative Home Abuse/Violence Screen Is your home free of abuse and violence? Yes MOVE! Program Screen Body Mass Index (BMI)= 26.1 [place]: Collection DT Specimen Test Name Result Units Ref Range 07/17/2023 14:17 BLOOD !! HEMOGLOBIN A1C 6.0 % 4.0 - 6.0 !! Indicates COMMENTS AVAILABLE...Refer to Interim Lab Report. Wil Kaplan Hgb A1C: No data available [place] Hgb A1C: No data available Point of Care Hgb A1C: POC HGB A1C____ Outpatient Nutrition Screen Body Mass Index (BMI)= 26.1 [place]: Collection DT Specimen Test Name Result Units Ref Range 07/17/2023 14:17 BLOOD !! HEMOGLOBIN A1C 6.0 % 4.0 - 6.0 !! Indicates COMMENTS AVAILABLE...Refer to Interim Lab Report. Wil Kaplan Hgb A1C: No data available [place] Hgb A1C: No data available Point of Care Hgb A1C: POC HGB A1C____ Is patient's BMI less than 18.5? No Does patient have swallowing, coughing, or chewing problems affecting oral intake? No Has patient experienced unplanned weight loss or gain greater than 10 pounds over the last 2 months? No Is patient's Hgb A1C (Glycosylated Hemoglobin) greater than 9.5? No Is patient receiving Total Parenteral Nutrition (TPN) or Tube Feedings? No Patient Health Education Screen BARRIERS/SPECIAL NEEDS: Physical limitations Hearing limitations Visual limitations PREFERRED STYLE OF LEARNING: Watching something Listening Reading Client Assistive Service (GABBY) Screen Does the patient require assistance with outpatient visit? No Tobacco Use Screening: The patient is a former tobacco user. The patient quit one to less than 5 years ago. Alcohol Use Screen (AUDIT-C): Alcohol Screen: SCREEN FOR ALCOHOL (AUDIT-C) An alcohol screening test (AUDIT-C) was positive (score=6). 1. How often did you have a drink containing alcohol in the past year? Consider a drink to be a 12 ounce can or bottle of regular beer, 8 ounces of malt liquor, a 5 ounce glass of table wine, or a 1.5 ounce shot of liquor (like scotch, gin, or vodka). Four or more times a week 2. How many drinks containing alcohol did you have on a typical day when you were drinking in the past year? Three or four drinks 3. How often did you have six or more drinks on one occasion in the past year? Less than monthly Licensed Independent Provider notified of positive screen and need for follow-up. Name of provider notified: Morgan Concepcion Homelessness/Food Insecurity Screen: In the past 2 months, have you been living in stable housing that you own, rent, or stay in as part of a household? Yes - Living in stable housing. Are you worried or concerned that in the next 2 months you may NOT have stable housing that you own, rent, or stay in as part of a household? No - Not worried about housing near future The reports the following: Within the past 12 months, you worried whether your food would run out before you got money to buy more. Never true Within the past 12 months, the food you bought just didn't last and you didn't have money to get more. Never true Food Assistance Programs [facility] Food Assistance [facility] Depression Screening: Perform PHQ-2 A PHQ-2 screen was performed. The score was 0 which is a negative screen for depression. Over the past two weeks, how often have you been bothered by the following problems? 1. Little interest or pleasure in doing things Not at all 2. Feeling down, depressed, or hopeless Not at all Suicide Screen: C-SSRS Screening Boyle-Suicide Severity Rating Scale (C-SSRS Screener) 1. Over the past month, have you wished you were or wished you could go to sleep and not wake up? No 2. Over the past month, have you had any actual thoughts of killing yourself? No 3. Over the past month, have you been thinking about how you might do this? Response not required due to responses to other questions. 4. Over the past month, have you had these thoughts and had some intention of acting on them? Response not required due to responses to other questions. 5. Over the past month, have you started to work out or worked out the details of how to kill yourself? Response not required due to responses to other questions. 6. If yes, at any time in the past month did you intend to carry out this plan? Response not required due to responses to other questions. 7. In your lifetime, have you ever done anything, started to do anything, or prepared to do anything to end your life (for example, collected pills, obtained a gun, gave away valuables, went to the roof but didn't jump)? No 8. If YES, was this within the past 3 months? Response not required due to responses to other questions. /naina/ ANNA COTTRELL SOLAR POWER INSTALLER Signed: 07/17/2023 15:19 07/17/2023 ADDENDUM STATUS: COMPLETED Procedure: Residual Urine Participant instructed and verbalized understanding of procedure. Patient instructed and verbalizes that they have emptied the bladder completely. Ultrasound RU: 111 ting /naina/ ANNA COTTRELL SOLAR POWER INSTALLER Signed: 07/17/2023 16:33 ANNA COTTRELL [facility] Jul 17, 2023 02:25 PM ADVANCE DIRECTIVE: LOCAL TITLE: AD NOTIFICATION AND SCREENING STANDARD TITLE: ADVANCE DIRECTIVE DATE OF NOTE: JUL 17, 2023@14:25 ENTRY DATE: JUL 17, 2023@14:25:41 AUTHOR: AURELIA EGAN EXP COSIGNER: URGENCY: STATUS: COMPLETED ADVANCE DIRECTIVE NOTIFICATION: Patient was given written notification of the following rights: 1. Accept or refuse any medical treatment. 2. Complete a durable power of assistant city attorney for health care. 3. Complete a living will. ADVANCE DIRECTIVE SCREENING: Does patient have an Advance Directive? The patient does not have an Advance Directive. The patient does not wish to create an Advance Directive for health care. Comment: DECLINED /naina/ AURELIA EGAN [facility] Corporate Account Director Signed: 07/17/2023 14:26 AURELIA EGAN [facility]
--- OUTSIDE RECORDS SUMMARY | 2023-08-05 12:52 | XMS_ITS | Encounter Summary ---
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 Organization [facility] ns Affairs Address [address] [place] [address] Support Name Relationship Address Phone JAVIER DE PAZ Next of Kin [phone] [address] [address] DE PAZLU Emergency Contact [phone] [phone] JAVIER DE PAZ Next of Kin [phone] [address] [address] Insurance Providers: All historical [...] Kevin's Name Patient's Relationship to Policy Kevin BC BS [place] [facility] ([facility]) [facility] [id number] Jan 05, 2010 [id number] DEPENDS ON GROUP ANUSHA DE PAZ PATIENT MEDICARE (WN) MEDICARE () PART A Jan 05, 2010 PART A [id number] [phone] ANUSHA DE PAZ PATIENT MEDICARE (WNR) MEDICARE (M) PART B Jan 05, 2010 PART B [id number] [phone] ANUSHA DE PAZ PATIENT MEDICARE (WNR) MEDICARE (M) PART A Jan 05, 2010 PART A [id number] [facility] ANUSHA DE PAZ PATIENT MEDICARE (WNR) MEDICARE (M) PART A Jan 05, 2010 PART A [id number] ANUSHA DE PAZ PATIENT MEDICARE (WNR) MEDICARE (M) PART B Jan 05, 2010 PART B [id number] [facility] [phone] ANUSHA DE PAZ PATIENT Selected Encounter This section includes the information on record at [place] for the Encounter. Date/Time Encounter Type Encounter Description Reason Pro vider Source Jul 18, 2023 12:00 AM Outpatient Encounter EVENT (HISTORICAL) IHE Encounter Template Text not used by [place] Lab Results: +/- 30 days of the [...] Range Comment Jul 17, 2023 04:34 PM [facility] URINALYSIS Specimen Type: URINE No comment entered. Ordering Provider: SARAH CHAUHAN Report Released Date/Time: Jul 17, 2023 04:23 PM Reporting Lab: [facility] [id number] Performing Lab: [facility] [id number] URINE COLOR COLORLESS SPECIFIC GRAVITY 1.006 1.003-1.035 URINE BILIRUBIN NEGATIVE NEGATIVE URINE KETONES NEGATIVE NEGATIVE URINE GLUCOSE NEGATIVE See_Comment URINE PROTEIN NEGATIVE See_Comment URINE PH 7.0 5.0-8.0 URINE WBC/HPF <1 0-7 URINE BACTERIA NONE SEEN URINE RBC/HPF <1 0-3 APPEARANCE CLEAR SQUAMOUS EPITHELIAL NONE SEEN URINE BLOOD NEGATIVE NEGATIVE URINE NITRITE NEGATIVE NEGATIVE LEUKOCYTE ESTERASE NEGATIVE NEGATIVE Jul 17, 2023 02:17 PM [facility] HEMOGLOBIN A1C Specimen Type: BLOOD Comment: Values obtained from A1C measurements can vary. For typical A1C assays, a reported value of 7.0 could actually be between 6.7 and 7.3 if measured by a reference method. A reported value of 9.0 could actually be between 8.7 and 9.3. Ref: http://www.ngs p.org/CAPdata. asp Ordering Provider: SARAH CHAUHAN Report Released Date/Time: August 07, 2022 02:21 PM Reporting Lab: [facility] [id number] Performing Lab: [facility] [id number] HEMOGLOBIN A1C 6.0 4.0-6.0 Jul 17, 2023 02:17 PM [facility] BASIC METABOLIC PANEL+MG Specimen Type: PLASMA No comment entered. Ordering Provider: SARAH CHAUHAN Report Released Date/Time: August 07, 2022 02:21 PM Reporting Lab: [facility] [id number] Performing Lab: [facility] [id number] CREATININE 1.3 H 0.7-1.2 UREA NITROGEN 15 8-26 GLUCOSE 84 70-100 SODIUM 137 136-145 POTASSIUM 4.6 3.5-5.1 CHLORIDE 105 98-107 CO2 24 22-29 CALCIUM 8.9 8.4-10.2 MAGNESIUM 2.1 1.6-2.6 ANION GAP 8 5-15 .CREAT EGFR(CKD-EPI) 56 L >60 Jul 17, 2023 02:17 PM [facility] CBC Specimen Type: BLOOD No comment entered. Ordering Provider: SARAH CHAUHAN Report Released Date/Time: August 07, 2022 02:21 PM Reporting Lab: [facility] [phone] Performing Lab: [facility] [id number] WBC 8.72 4.0-11.0 RBC 4.11 L 4.6-6.2 HGB 13.4 L 13.5-17.9 HCT 39.7 L 41-54 MCV 96.6 80-100 MCH 32.6 27-33 MCHC 33.8 32.0-37.5 PLT 159 150-400 MPV 9.6 7.4-10.4 RDW 14.1 11.5-14.5 Jul 17, 2023 02:17 PM [facility] LIVER FUNCTION TESTS Specimen Type: PLASMA No comment entered. Ordering Provider: SARAH CHAUHAN Report Released Date/Time: August 07, 2022 02:21 PM Reporting Lab: [facility] [phone] Performing Lab: [facility] [address] BILIRUBIN, TOTAL 0.8 0.2-1.2 ALKALINE PHOSPHATASE 52 40-150 ALT/SGPT 20 <55 AST/SGOT 19 <34 GAMMA GTP 38 <64 Jul 17, 2023 02:17 PM [facility] PSA Specimen Type: SERUM No comment entered. Ordering Provider: SARAH CHAUHAN Report Released Date/Time: August 07, 2022 02:21 PM Reporting Lab: [facility] [id number] Performing Lab: [facility] [address] PSA 3.84 <4.00 Social History: Smoking Status (Most current) and [...] took place. Date/Time Current Smoking Status Comment Facil ity Jul 17, 2023 03:00 PM VA-TOBACCO FORMER USER [facility] Tobacco Use History This section includes a history of the smoking, or tobacco-related health factors, that were collected on or before the date of the Encounter. The data comes from the [place] facility where the Encounter took place. Date/Time Smoking Status/Tobacco Use Comment F acility Jul 17, 2023 03:00 PM VA-TOBACCO QUIT 1 TO < 5 YRS [facility] August 07, 2022 01:30 PM VA-TOBACCO FORMER USER [facility] August 07, 2022 01:30 PM VA-TOBACCO QUIT 1 TO < 5 YRS [facility] Oct 16, 2020 02:45 PM VA-TOBACCO FORMER USER [facility] Oct 16, 2020 02:45 PM VA-TOBACCO QUIT 15 YRS OR MORE [facility] Mar 29, 2019 10:59 AM VA-TOBACCO USE > 1 5 LESS THAN 30 YEARS [facility] Mar 29, 2019 10:59 AM VA-TOBACCO USE ADVICE [facility] Mar 29, 2019 10:59 AM VA-TOBACCO USE CRUSHED STONE GRADER NO [facility] Mar 29, 2019 10:59 AM VA-TOBACCO USE MED NO [facility] Mar 29, 2019 10:59 AM VA-TOBACCO USE WI 30 MIN OF WAKE UP [facility] Mar 29, 2019 10:59 AM VA-TOBACCO USER EVERY DAY [facility] Feb 17, 2018 03:39 PM VA-TOBACCO USE 30 YEARS OR MORE [facility] Feb 17, 2018 03:39 PM VA-TOBACCO USE ADVICE [facility] Feb 17, 2018 03:39 PM VA-TOBACCO USE CRUSHED STONE GRADER NO [facility] Feb 17, 2018 03:39 PM VA-TOBACCO USE MED NO [facility] Feb 17, 2018 03:39 PM VA-TOBACCO USE WI 30 MIN OF WAKE UP [facility] Feb 17, 2018 03:39 PM VA-TOBACCO USER EVERY DAY [facility] Feb 12, 2017 12:38 PM CURRENT TOBACCO USER [facility] Apr 25, 2015 07:50 AM CURRENT TOBACCO USER [facility] Apr 21, 2014 08:25 AM CURRENT TOBACCO USER [facility] Apr 20, 2013 10:04 AM CURRENT TOBACCO USER [facility] Mar 20, 2012 09:53 AM CURRENT TOBACCO USER [facility] Feb 06, 2011 09:44 AM CURRENT TOBACCO USER [facility] Jan 02, 2010 09:22 AM CURRENT TOBACCO USER [facility]
--- OUTSIDE RECORDS SUMMARY | 2023-08-05 12:52 | XMS_ITS | Encounter Summary ---
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 Organization Department of Vetera Affairs Address [address] [place] [address] Support Name Relationship Address Phone JAVIER DE PAZ Next of Kin [address] [place] [address] LC DE PAZLU Emergency Contact [phone] [address] [place] [phone] JAVIER DE PAZ Next [place] [address] [place] [address] Insurance Providers: All historical and current [...] Patient's Relationship to Policy Kevin BS [facility] ORGANIZ [id number] Jan 05, 2010 [id number] DEPENDS ON GROUP ANUSHA DE PAZ PATIENT MEDICARE ([facility]) MEDICARE () PART A Jan 05, 2010 PART A [id number] [phone] ANUSHA DE PAZ PATIENT MEDICARE (WN) MEDICARE () PART B Jan 05, 2010 PART B [id number] [phone] ANUSHA DE PAZ PATIENT MEDICARE (WN) MEDICARE () PART A Jan 05, 2010 PART A [id number] [facility] ANUSHA DE PAZ PATIENT MEDICARE (WNR) MEDICARE (M) PART A Jan 05, 2010 PART A [id number] [phone] ANUSHA DE PAZ PATIENT MEDICARE ([facility]) MEDICARE () PART B Jan 05, 2010 PART B [id number] [facility] [phone] ANUSHA DE PAZ PATIENT Selected Encounter This section includes the information on record at [place] for the Encounter. Date/Time Encounter Type Encounter Description Reason Provider Source May 29, 2023 09:41 AM QNHP OL DIG ASSMT&MGMT 5-10 CLINICAL PHARMACY ICD-10-CM Z79.01 long term care social worker (current) use of anticoagulants GERRI GARCIA [facility] Encounter Template Text not used by [place] Assessments - Encounter Diagnoses This section includes the primary and secondary diagnoses documented for the Encounter. Date/Time Primary/Secondary Diagnosis Diagnosis Name Provider Source May 29, 2023 09:46 AM PRIMARY care home (current) use of anticoagulants GERRI GARCIA [facility] May 29, 2023 09:46 AM SECONDARY Unspecified atrial fibrillation GERRI GARCIA [facility] Plan of Treatment: Future Appointments (+ 6 months) and Future Tests (+/- 45 days) The Plan of Treatment section includes future care activities for the patient from [facility] [place] [facility] This section includes future appointments and future orders which are active, pending or scheduled. Future Appointments This section includes appointments that were scheduled to occur 6 months from the date of the Encounter, up to a maximum of 20 appointments. The data comes from all [place] treatment facilities. Appointment Date/Time Appointment Type Appointme nt Facility Name Jul 17, 2023 03:00 PM AMBULATORY - MEDICINE [facility] Social History: Smoking Status (Most current) and Tobacco Use (All prior to encounter date) This section includes the most current, and the historical, smoking and tobacco- related health factors from the [place] facility where the Encounter took place. Current Smoking Status This section includes the most current smoking, or tobacco-related health factor, from the [place] facility where the Encounter took place. Date/Time Current Smoking Status Comment Facil ity August 07, 2022 01:30 PM VA-TOBACCO FORMER USER [facility] Tobacco Use History This section includes a history of the smoking, or tobacco-related health factors, that were collected on or before the date of the Encounter. The data comes from the [place] facility where the Encounter took place. Date/Time Smoking Status/Tobacco Use Comment F acility August 07, 2022 01:30 PM [place]-TOBACCO QUIT 1 TO < 5 YRS [facility] Oct 16, 2020 02:45 PM VA-TOBACCO FORMER USER [facility] Oct 16, 2020 02:45 PM VA-TOBACCO QUIT 15 YRS OR MORE [facility] Mar 29, 2019 10:59 AM VA-TOBACCO USE > 1 5 LESS THAN 30 YEARS [facility] Mar 29, 2019 10:59 AM VA-TOBACCO USE ADVICE [facility] Mar 29, 2019 10:59 AM VA-TOBACCO USE TECHNICAL ENGINEER NO [facility] Mar 29, 2019 10:59 AM VA-TOBACCO USE MED NO [facility] Mar 29, 2019 10:59 AM VA-TOBACCO USE [place] 30 MIN OF WAKE UP [facility] Mar 29, 2019 10:59 AM VA-TOBACCO USER EVERY DAY [facility] Feb 17, 2018 03:39 PM VA-TOBACCO USE 30 YEARS OR MORE [facility] Feb 17, 2018 03:39 PM VA-TOBACCO USE ADVICE [facility] Feb 17, 2018 03:39 PM VA-TOBACCO USE TECHNICAL ENGINEER NO [facility] Feb 17, 2018 03:39 PM VA-TOBACCO USE MED NO [facility] Feb 17, 2018 03:39 PM VA-TOBACCO USE WI 30 MIN OF WAKE UP [facility] Feb 17, 2018 03:39 PM VA-TOBACCO USER EVERY DAY [facility] Feb 12, 2017 12:38 PM CURRENT TOBACCO USER [facility] Apr 25, 2015 07:50 AM CURRENT TOBACCO USER [facility] Apr 21, 2014 08:25 AM CURRENT TOBACCO USER [facility] Apr 20, 2013 10:04 AM CURRENT TOBACCO USER [facility] Mar 20, 2012 09:53 AM CURRENT TOBACCO USER [facility] Feb 06, 2011 09:44 AM CURRENT TOBACCO USER [facility] Jan 02, 2010 09:22 AM CURRENT TOBACCO USER [facility] Encounter Notes: All associated encounter notes This section contains the clinical notes associated to the Encounter. Date/Time Encounter Note(s) Provider Source May 29, 2023 09:41 AM PHARMACY OUTPATIEN T MEDICATION MGT NOTE: LOCAL TITLE: PHARMACY ANTICOAGULATION CLINIC F/U STANDARD TITLE: PHARMACY OUTPATIENT MEDICATION MGT NOTE DATE OF NOTE: MAY 29, 2023@09:41 ENTRY DATE: MAY 29, 2023@09:41:20 AUTHOR: COURT GARCIA COSIGNER: URGENCY: STATUS: COMPLETED DOAC DASHBOARD ALERT - Anticoagulant: Apixaban 5mg every 12 hours (6AM &6PM) - Indication: Atrial fibrillation - Relevant PMH: - 03/19/20 CVA, INR was 1.6 at the time - SATHYA X2 (non-VA) 01/2020 - Prior major bleeds: none - Prior anticoagulants: warfarin - Start date: 03/2020 - Anticipated duration: indefinite - CHADS2-VASC = 7 (age-2, CVA-2, htn, vasc dis, HF) - HAS-BLED = 4 (age, anemia, CVA, alc) SUBJECTIVE/OBJECTIVE: Obtained from chart review. Dashboard flags: Renewal due Labs ==== Age: 78 Height: 75 in [190.5 cm] (10/16/2020 14:11) Weight: 197 lb [89.36 kg] (08/07/2022 13:30) Collection DT Specimen Test Name Result Units Ref Range 04/16/2023 11:34 PLASMA CREATININE 1.2 mg/dL 0.7 - 1.2 08/07/2022 13:16 PLASMA CREATININE 1.0 mg/dL 0.7 - 1.2 08/07/2022 13:16 PLASMA CREATININE 1.0 mg/dL 0.7 - 1.2 12/13/2021 10:43 PLASMA CREATININE 1.0 mg/dL 0.7 - 1.2 05/22/2021 14:19 PLASMA CREATININE 1.0 mg/dL 0.7 - 1.2 10/16/2020 13:54 PLASMA CREATININE 0.9 mg/dL 0.7 - 1.2 03/29/2019 10:06 PLASMA CREATININE 0.9 mg/dL 0.7 - 1.2 03/18/2018 13:20 PLASMA!! CREATININE 0.8 mg/dL .7 - 1.2 02/12/2017 12:08 PLASMA CREATININE 0.8 mg/dL .7 - 1.2 04/25/2015 06:33 PLASMA CREATININE 0.9 mg/dL .7 - 1.2 Cockcroft & Gault (Actual body weight) = 64.1 mL/min Collection DT Spec WBC HGB HCT PLT MCV 04/16/2023 11:34 BLOOD 8.06 13.1 L 38.9 L 157 96.5 08/07/2022 13:16 BLOOD 10.37 12.7 L 38.6 L 173 95.8 08/07/2022 13:16 BLOOD 10.43 12.7 L 38.4 L 161 95.5 Collection DT Specimen Test Name Result Units Ref Range 08/07/2022 13:16 PLASMA BILIRUBIN, TOTAL 1.3 H mg/dL 0.2 - 1.2 08/07/2022 13:16 PLASMA ALKALINE PHOSPHAT 51 U/L 40 - 150 04/16/2023 11:34 PLASMA AST/SGOT 22 U/L Ref: <=34 04/16/2023 11:34 PLASMA ALT/SGPT 19 U/L Ref: <=55 08/07/2022 13:16 PLASMA GAMMA GTP 36 U/L Ref: <=64 08/07/2022 13:16 PLASMA DIR. BILIRUBIN 0.4 mg/dL Ref: <=0.5 ASSESSMENT/PLAN: Per chart review, appropriate for continued anticoagulant use. No contraindications noted. Benefit of therapy continues to outweigh risk. Lab monitoring current and without concern. No evidence of recent bleeding or thrombotic events. - Continue anticoagulation at current dose. - Monitor dashboard for labs, drug interactions, and compliance. - Dashboard flags reviewed/cleared, if applicable. - Lab monitoring frequency defined by dashboard or as clinically indicated. - Rx reviewed - renewed for 90ds w/ refills. Time spent: 15 min /naina/ Court Garcia, Pharm.D. Clinical Dowel Pin Worker Signed: 05/29/2023 09:46 [address] GARC[address] [facility]
--- OUTSIDE RECORDS SUMMARY | 2023-08-05 12:52 | XMS_ITS | Encounter Summary ---
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 Organization [facility] Address [address] [place] [address] Support Name Relationship Address Phone JAVIER DE PAZ Next of Kin [id number] [place] [address] LC DE PAZLU Emergency Contact [address] [place], [place] [phone] JAVIER DE PAZ Next of Kin [phone] [place] [address] Insurance Providers: All historical and current [...] Patient's Relationship to Policy Kevin BS [place] [facility] ([facility] [id number] Jan 05, 2010 [id number] [employer] ON [employer] ANUSHA DE PAZ PATIENT MEDICARE ([facility]) MEDICARE (M) PART A Jan 05, 2010 PART A [id number] [phone] ANUSHA DE PAZ PATIENT MEDICARE (WN) MEDICARE (M) PART B Jan 05, 2010 PART B [id number] [phone] ANUSHA DE PAZ PATIENT MEDICARE (WNR) MEDICARE (M) PART A Jan 05, 2010 PART A [id number] [facility] ANUSHA DE PAZ PATIENT MEDICARE (WNR) MEDICARE (M) PART A Jan 05, 2010 PART A [id number] [facility] [phone] ANUSHA DE PAZ PATIENT MEDICARE (WNR) MEDICARE (M) PART B Jan 05, 2010 PART B [id number] [facility] [phone] DE PAZANUSHA SUBRAMANIAN PATIENT Selected Encounter This section includes the information on record at [place] for the Encounter. Date/Time Encounter Type Encounter Description Reason Provider Source August 07, 2022 01:30 PM OFFICE O/P EST MOD 30-39 MIN PRIMARY CARE/MEDICINE ICD-10-CM Z00.01 Encounter for general adult medical exam w abnormal findings FEROZ LIN Encounter Template Text not used by [place] Assessments - Encounter Diagnoses This section includes the primary and secondary diagnoses documented for the Encounter. Date/Time Primary/Secondary Diagnosis Diagnosis Name Provider Source August 07, 2022 05:21 PM PRIMARY Encounter for general adult medical exam w abnormal findings ANAIS CON[facility] August 07, 2022 05:21 PM SECONDARY Athscl heart disease of [place] coronary artery w/o ang pctrs ANAIS [facility] August 07, 2022 05:21 PM SECONDARY Cerebrovascular disease, unspecified [facility] August 07, 2022 05:21 PM SECONDARY Chronic atrial fibrillation, unspecified [facility] August 07, 2022 05:21 PM SECONDARY Chronic obstructive pulmonary disease, unspecified [facility] August 07, 2022 05:21 PM SECONDARY Essential (primary) hypertension ANAIS [facility] August 07, 2022 05:21 PM SECONDARY Peripheral vascular disease, unspecified [facility] August 07, 2022 05:21 PM SECONDARY [facility] Plan of Treatment: Future Appointments (+ 6 months) and Future Tests (+/- 45 days) The Plan of Treatment section includes future care activities for the patient from [facility]. This section includes future appointments and future orders which are active, pending or scheduled. Future Appointments This section includes appointments that were scheduled to occur 6 months from the date of the Encounter, up to a maximum of 20 appointments. The data comes from all [place] treatment facilities. Appointment Date/Time Appointment Type Appointme nt Facility Name Sep 11, 2022 08:30 AM [facility] Results: +/- 30 days of the encounter This section includes the Chemistry and Hematology Lab Results on record with [place] for the patient. Radiology Reports and Pathology Reports are provided separately, in subsequent sections. Lab Results This section contains the Chemistry/Hematology Results that were resulted 30 days before or 30 daysafter the date of the Encounter. Date/Time Source Result Type Result - Unit Interpretation Reference Range Comment August 07, 2022 01:16 PM [facility] HEMOGLOBIN A1C Specimen Type: BLOOD Comment: Values obtained from A1C measurements can vary. For typical A1C assays, a reported value of 7.0 could actually be between 6.7 and 7.3 if measured by a reference method. A reported value of 9.0 could actually be between 8.7 and 9.3. Ref: [email or web address] [email or web address]/CAPdata. asp Ordering Provider: SARAH CONCEPCION Report Released Date/Time: May 30, 2022 06:05 AM Reporting Lab: [facility] [id number] Performing Lab: [facility] [id number] HEMOGLOBIN A1C 5.9 4.0-6.0 August 07, 2022 01:16 PM [facility] BASIC METABOLIC PANEL+MG Specimen Type: PLASMA No comment entered. Ordering Provider: SARAH CONCEPCION Report Released Date/Time: May 30, 2022 06:05 AM Reporting Lab: [facility] [id number] Performing Lab: [facility] [id number] CREATININE 1.0 0.7-1.2 UREA NITROGEN 16 8-26 GLUCOSE 106 H 70-100 SODIUM 136 136-145 POTASSIUM 3.9 3.5-5.1 CHLORIDE 102 98-107 CO2 25 22-29 CALCIUM 9.1 8.4-10.2 MAGNESIUM 1.9 1.6-2.6 ANION GAP 9 5-15 .CREAT EGFR(CKD-EPI) 78 >60 August 07, 2022 01:16 PM [facility] CBC Specimen Type: BLOOD No comment entered. Ordering Provider: SARAH CONCEPCION Report Released Date/Time: May 30, 2022 06:05 AM Reporting Lab: [facility] [id number] Performing Lab: [facility] [id number] WBC 10.37 4.0-11.0 RBC 4.03 L 4.6-6.2 HGB 12.7 L 13.5-17.9 HCT 38.6 L 41-54 MCV 95.8 80-100 MCH 31.5 27-33 MCHC 32.9 32.0-37.5 PLT 173 150-400 MPV 9.7 7.4-10.4 RDW 13.8 11.5-14.5 August 07, 2022 01:16 PM [facility] LIVER FUNCTION TESTS Specimen Type: PLASMA No comment entered. Ordering Provider: SARAH CONCEPCION Report Released Date/Time: May 30, 2022 06:05 AM Reporting Lab: [facility] [phone] Performing Lab: [facility] [phone] BILIRUBIN, TOTAL 1.3 H 0.2-1.2 ALKALINE PHOSPHATASE 51 40-150 ALT/SGPT 14 <55 AST/SGOT 13 <34 GAMMA GTP 36 <64 DIR. BILIRUBIN 0.4 <0.5 August 07, 2022 01:16 PM [facility] CREATININE(INCLUDES EGFR) Specimen Type: PLASMA No comment entered. Ordering Provider: GALINDO HYLTON Report Released Date/Time: Jul 15, 2022 08:30 AM Reporting Lab: [facility] [phone] Performing Lab: [facility] [phone] CREATININE 1.0 0.7-1.2 .CREAT EGFR(CKD-EPI) 78 >60 August 07, 2022 01:16 PM [facility] CBC Specimen Type: BLOOD No comment entered. Ordering Provider: GALINDO HYLTON Report Released Date/Time: Jul 15, 2022 08:30 AM Reporting Lab: [facility] [phone] Performing Lab: [facility] [id number] WBC 10.43 4.0-11.0 RBC 4.02 L 4.6-6.2 HGB 12.7 L 13.5-17.9 HCT 38.4 L 41-54 MCV 95.5 80-100 MCH 31.6 27-33 MCHC 33.1 32.0-37.5 PLT 161 150-400 MPV 9.4 7.4-10.4 RDW 13.8 11.5-14.5 August 07, 2022 01:16 PM [facility] AST/SGOT Specimen Type: PLASMA No comment entered. Ordering Provider: GALINDO HYLTON Report Released Date/Time: Jul 15, 2022 08:30 AM Reporting Lab: [facility] [phone] Performing Lab: [facility] [phone] AST/SGOT 12 <34 August 07, 2022 01:16 PM [facility] ALT/SGPT Specimen Type: PLASMA No comment entered. Ordering Provider: GALINDO HYLTON Report Released Date/Time: Jul 15, 2022 08:30 AM Reporting Lab: [facility] [phone] Performing Lab: [facility] [phone] ALT/SGPT 12 <55 Vital Signs: All taken on the encounter date This section contains inpatient and outpatient Vital Signs collected on the date of the Encounter. Date/Time Temperature Pulse Blood Pressure Respiratory Rate SP02 Pain Height Weight Body Mass Index Source August 07, 2022 01:30 PM 97.6 F 86 /min 146/83 mm[Hg] 16 /min 97 % 1 197 lb 25 [place] [facility] Social History: Smoking Status (Most current) and Tobacco Use (All prior to encounter date) This section includes the most current, and the historical, smoking and tobacco- related health factors from the [place] facility where the Encounter took place. Current Smoking Status This section includes the most current smoking, or tobacco-related health factor, from the [place] facility where the Encounter took place. Date/Time Current Smoking Status Comment Liam shah August 07, 2022 01:30 PM VA-TOBACCO FORMER USER [facility] Tobacco Use History This section includes a history of the smoking, or tobacco-related health factors, that were collected on or before the date of the Encounter. The data comes from the [place] facility where the Encounter took place. Date/Time Smoking Status/Tobacco Use Comment F amy August 07, 2022 01:30 PM VA-TOBACCO QUIT 1 TO < 5 YRS [facility] Oct 16, 2020 02:45 PM VA-TOBACCO FORMER USER [facility] Oct 16, 2020 02:45 PM VA-TOBACCO QUIT 15 YRS OR MORE [facility] Mar 29, 2019 10:59 AM VA-TOBACCO USE > 1 5 LESS THAN 30 YEARS [facility] Mar 29, 2019 10:59 AM VA-TOBACCO USE ADVICE [facility] Mar 29, 2019 10:59 AM VA-TOBACCO USE COLLATOR NO [facility] Mar 29, 2019 10:59 AM VA-TOBACCO USE MED NO [facility] Mar 29, 2019 10:59 AM VA-TOBACCO USE WI 30 MIN OF WAKE UP [facility] Mar 29, 2019 10:59 AM VA-TOBACCO USER EVERY DAY [facility] Feb 17, 2018 03:39 PM VA-TOBACCO USE 30 YEARS OR MORE [facility] Feb 17, 2018 03:39 PM VA-TOBACCO USE ADVICE [facility] Feb 17, 2018 03:39 PM VA-TOBACCO USE COLLATOR NO [facility] Feb 17, 2018 03:39 PM VA-TOBACCO USE MED NO [facility] Feb 17, 2018 03:39 PM VA-TOBACCO USE WI 30 MIN OF WAKE UP [facility] Feb 17, 2018 03:39 PM VA-TOBACCO USER EVERY DAY [facility] Feb 12, 2017 12:38 PM CURRENT TOBACCO USER [facility] Apr 25, 2015 07:50 AM CURRENT TOBACCO USER [facility] Apr 21, 2014 08:25 AM CURRENT TOBACCO USER [facility] Apr 20, 2013 10:04 AM CURRENT TOBACCO USER [facility] Mar 20, 2012 09:53 AM CURRENT TOBACCO USER [facility] Feb 06, 2011 09:44 AM CURRENT TOBACCO USER [facility] Jan 02, 2010 09:22 AM CURRENT TOBACCO USER [facility] Encounter Notes: All associated encounter notes This section contains the clinical notes associated to the Encounter. Date/Time Encounter Note(s) Provider Source August 07, 2022 02:16 PM ADMINISTRATIVE NOTE: LOCAL TITLE: AFTER VISIT SUMMARY NOTE STANDARD TITLE: ADMINISTRATIVE NOTE DICT DATE: AUGUST 07, 2022@14:16:15 ENTRY DATE: AUGUST 07, 2022@14:16:15 DICTATED BY: MORGAN CONCEPCION COSIGNER: URGENCY: STATUS: COMPLETED The patient was provided with a copy of an after-visit summary at the conclusion of the visit. A copy of the after-visit summary provided to the patient is available in [employer]. SCANNED DOCUMENT SIGNATURE NOT REQUIRED Electronically Filed: 08/07/2022 by: Morgan Concepcion MD Staff Physician MORGAN CON[facility]PC[facility] August 07, 2022 01:40 PM INTERNAL MEDICINE NOTE: LOCAL TITLE: MEDICINE CLINIC NOTE STANDARD TITLE: INTERNAL MEDICINE NOTE DATE OF NOTE: AUGUST 07, 2022@13:40 ENTRY DATE: AUGUST 07, 2022@13:40:09 AUTHOR: MORGAN CONCEPCIONIGNER: URGENCY: STATUS: COMPLETED MEDICINE CLINIC NOTE Has ADDENDA ASSESSMENT AND PLAN Co-Managed Health Care. Immunizations up to date COPD with continued exertional dyspnea. New prescription for Wixela in place of mometasone. Encouraged him to use his Albuterol inhaler as needed for acute exacerbations. Atrial fibrillation, apixaban for anticoagulation and Metoprolol succinate for rate control. Previous stent placement in 2019. Peripheral artery disease with left femoral artery occlusion followed by [facility]. 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 No focal deficits at this point. Hypertension with fair treatment on Nifedipine SA and HCTZ, in addition to the Metoprolol succinate. Hypoglycemia/prediabetes, A1c down to 5.9% today. He was interested in speaking with the study RN regarding the IMPACT study of Metformin and prediabetes and heart disease. History of acute prostatitis in 2020 with normal PSA following treatment. Mild anemia persists, likely related to his anticoagulation. Excessive alcohol use, encouraged him to have no more than 2 alcoholic drinks in a day. Lab results discussed w/pt, letter sent. Return to Clinic: Annual exam. 77 yr old male here for Annual Co-Management exam and follow up of problems per problem list. Co-Managed at [facility] in [place]. Increasing exertional dyspnea despite Mometasone BID. Used his Albuterol MDI in the middle of the night for the first time last week and that really helped! Chronic atrial fibrillation on Apixaban and Metoprolol succinate, no bleeding significant bruising issues. Noted to have elevated PSA above 14 with suspected acute prostatitis when I last saw him in late 2020. Follow-up PSA done a month later by his Co-Managed Care physician showed that it had returned to a normal level, around 2.5. He denies any further urinary symptoms. Hypertension treated with Nifedipine and HCTZ. Mild hyperglycemia in the past, A1c as high as 6.1% in 2019. Mild anemia noted since October,, hemoglobin in the mid 11 range the lowest seen. Likely related to his anticoagulation therapy. SH: Lives in [place], has regular physician there that he sees for Annual Medicare exam. His daughter lives in [place] and often comes with him, but she was home sick today. Tells me that he has 3 cocktails every evening and we discussed that it may be a bit much. [facility]/PSH/ALLERGIES Active problems - Computerized Problem List is the source for the followin. Essential hypertension (SNOMED CT 11582358) 2. Atrial fibrillation (SNOMED CT 49923172) - Warfarin through [facility] 3. Allergic rhinitis (SNOMED CT 25730820) 4. Current smoker - Cigars, not cigarettes 5. Glucose intolerance 6. COPD - Chronic Obstructive Pulmonary Disease ([facility] 24927301) - Mometasone & Albuterol MDI's 7. Co-Managed Care - Dr Garcia, [facility], F: [phone], 8. [place] of toe - R middle toe 9. Peripheral arterial insufficiency - 01/21/20: L femoral Art occlusion per [facility]-->Fem-Tibial bypass planned 10. CAD - Coronary Artery Disease ([facility] [id number]) - 01/27/20: LAD and Dx stented w/SATHYA at [facility]. Plavix +ASA thru 01/26/21 11. CVD - Cerebrovascular Disease ([facility] [id number]) - 03/19/20: L MCA CVA, Admit ANW. Cardio-embolic d/t Warfarin DC SURGERIES - NONE FOUND LISINOPRIL (Mar 05, 2010) FINAL MEDICATION RECONCILIATION See Medication Reconciliation below IM - Immunizations Immunization Series Date Facility Reaction Info COVID-19 ([employer]), MRNA, LNP-S, P* 2 06/17/2020 [place]* 1 05/27/2020 [place]* INFLUENZA, HIGH DOSE [place] 02/12/2017 [place] 04/25/2015 [place] INFLUENZA, SEASONAL, INJECTABLE [place]* [place] INFLUENZA, UNSPECIFIED FORMULATIO* 12/29/2020 [facility]* 02/07/2014 [place] 04/20/2013 [place] 03/20/2012 [place] 02/06/2011 [place] PNEUMOCOCCAL CONJUGATE PCV 13 04/25/2015 [place] <C> PNEUMOCOCCAL POLYSACCHARIDE PPV23 02/12/2017 [place] <C> PNEUMOCOCCAL, UNSPECIFIED FORMULA* 01/02/2010 [place] <C> TD (ADULT), 2 LF TETANUS TOXOID,* 02/12/2017 [place] <C> TDAP 04/07/2007 [facility]* <C> ZOSTER LIVE [place] ZOSTER RECOMBINANT 2 01/18/2021 [place]* 1 10/16/2020 [place] EXAM Today's vital signs per nurse: Pulse 86 (08/07/2022 13:30) Blood pressure Measurement DT BP 08/07/2022 13:30 146/83 10/16/2020 14:11 118/78 09/08/2019 08:33 137/87 Weight Measurement DT WEIGHT LB(KG)[BMI] 08/07/2022 13:30 197(89.36)[25] 10/16/2020 14:11 182(82.55)[23] 09/08/2019 08:33 182(82.55)[23] BMI 24.7 Walks in without assistance, though he does have mildly unsteady gait. He called his daughter, Hanna, on the phone and she was part of our visit for several minutes. She often comes with him to his appointments. No cervical adenopathy or carotid bruits. Heart sounds are irregularly irregular, pulse in the 80s to 90 range. Lungs are clear and full. No significant lower extremity edema. LAB HGB A1C: 5.9 GLUCOSE: 106 H SODIUM: 136 POTASSIUM: 3.9 MAGNESIUM: 1.9 CHLORIDE: 102 CO2: 25 CALCIUM: 9.1 ANION GAP: 9 ALKALINE PHOSPHATASE(37C): 51 SGOT(37C): 13 SGPT(37C): 14 GAMMA-GTP(): 36 WBC: 10.37 RBC: 4.03 L HGB: 12.7 L HCT: 38.6 L MCV: 95.8 MCH: 31.5 MCHC: 32.9 RDW: 13.8 PLT: 173 MPV: 9.7 HGB 12.7 L BLOOD (08/07/22 13:16) 13.3 L BLOOD (12/13/21 10:43) Collection DT Spec HGBA1C 08/07/2022 13:16 BLOOD 5.9 10/16/2020 13:54 BLOOD 6.0 03/29/2019 10:06 BLOOD 6.1 H PSA 2.48 (f/u done at [facility] 11/24/20) PSA 14.49 H SERUM (10/16/20 13:54) 2.60 SERUM (03/29/19 10:06) Follow-up Pos Alcohol : Patient's AUDIT-C score was greater than or equal to 5; brief alcohol intervention is indicated. Shared concern that the patient may be drinking at unhealthy levels known to increase his/her risk of alcohol related health problems. Specifically the following were reviewed: High blood pressure, stroke, dementia The patient was advised/informed to drink within safe limits, which are no more than 2 drinks per day on average and no more than 4 drinks on any one day AND no more than 14 drinks per week. Will discuss again at next visit. Medication Reconciliation: Education Evaluations *Was medication education provided for NEW medications or CHANGES to medications? (including medication name, dose, route, reason for use, and potential side effects). No new medications or medication changes during this encounter. TERATOGENIC MED & CONTRACEPTION REVIEW (Optional)... = [...] TAB Qty: 180 for 90 days ACTIVE Issu:05-08-22 Sig: TAKE ONE TABLET BY MOUTH EVERY 12 Refills: 3 Last:05-26-22 HOURS TO PREVENT BLOOD CLOTS AND Expr:05-09-23 STROKE (ELIQUIS) 3) FLUTICAS 250/SALMETEROL 50 INHL DISK 60 ACTIVE Issu:08-07-22 Qty: 3 for 90 days Sig: INHALE 1 PUFF Refills: 3 Last:08-07-22 BY INHALATION TWICE A DAY FOR COPD Expr:08-08-23 THIS REPLACES YOUR MOMETASONE 4) FUROSEMIDE 20MG TAB Qty: 90 for 90 days ACTIVE Issu:11-15-21 Sig: TAKE ONE TABLET BY MOUTH EVERY Refills: 1 Last:06-06-22 MORNING FOR HEART FAILURE Expr:11-16-22 5) HYDROCHLOROTHIAZIDE 25MG TAB Qty: 45 ACTIVE Issu:11-15-21 for 90 days Sig: TAKE ONE-HALF TABLET Refills: 3 Last:11-16-21 BY MOUTH EVERY DAY Expr:11-16-22 6) METOPROLOL SUCCINATE 100MG SA TAB Qty: ACTIVE (S) Issu:11-15-21 135 for 90 days Sig: TAKE ONE AND Refills: 0 Last:09-22-22 ONE-HALF TABLETS BY MOUTH EVERY DAY Expr:11-16-22 7) NIFEDIPINE (EQV-CC) 60MG SA TAB Qty: 90 ACTIVE Issu:06-13-22 for 90 days Sig: TAKE ONE TABLET BY Refills: 0 Last:08-19-22 MOUTH EVERY DAY FOR BLOOD PRESSURE Expr:09-11-22 8) POTASSIUM CHLORIDE 10MEQ SA TAB Qty: 90 ACTIVE Issu:11-15-21 for 90 days Sig: TAKE ONE TABLET BY Refills: 0 Last:08-15-22 MOUTH EVERY DAY FOR CONGESTIVE HEART Expr:11-16-22 FAILURE 9) ROSUVASTATIN CA 40MG TAB Qty: 45 for 90 ACTIVE Issu:11-14-21 days Sig: TAKE ONE-HALF TABLET BY Refills: 1 Last:05-16-22 MOUTH AT BEDTIME FOR CORONARY ARTERY Expr:11-15-22 DISEASE Issue Date Status Last Fill Pending Outpatient Medications Refills Expiration 1) FUROSEMIDE 20MG TAB Qty: 90 Sig: TAKE PENDING ONE TABLET BY MOUTH EVERY MORNING FOR Refills: 0 HEART FAILURE 2) HYDROCHLOROTHIAZIDE 12.5MG TAB Qty: 90 PENDING Sig: TAKE ONE TABLET BY MOUTH EVERY Refills: 0 DAY 3) METOPROLOL SUCCINATE 50MG SA TAB Qty: PENDING 135 Sig: TAKE THREE TABLETS BY MOUTH Refills: 0 EVERY DAY 4) NIFEDIPINE (EQV-CC) 60MG SA TAB Qty: 90 PENDING Sig: TAKE ONE TABLET BY MOUTH EVERY Refills: 0 DAY 5) POTASSIUM CHLORIDE 10MEQ SA TAB Qty: 90 PENDING Sig: TAKE ONE TABLET BY MOUTH EVERY Refills: 0 DAY FOR CONGESTIVE HEART FAILURE 6) ROSUVASTATIN CA 20MG TAB Qty: 90 Sig: PENDING TAKE ONE TABLET BY MOUTH AT BEDTIME Refills: 0 FOR CORONARY ARTERY DISEASE Issue Date Status Last Fill Inactive Outpatient Medications Refills Expiration 1) APIXABAN 5MG TAB Qty: 180 for 90 days DISCONTINUED Issu:05-11-21 Sig: TAKE ONE TABLET BY MOUTH EVERY 12 Refills: 0 Last:03-07-22 HOURS TO PREVENT BLOOD CLOTS AND Expr:05-12-22 STROKE (ELIQUIS) 2) CLOPIDOGREL BISULFATE 75MG TAB Qty: 90 DISCONTINUED Issu:08-07-21 for 90 days Sig: TAKE ONE TABLET BY Refills: 0 Last:10-28-21 MOUTH EVERY DAY FOR STENT THROUGH Expr:08-08-22 12/06/21 3) MOMETASONE FUROATE 220MCG ORAL INHL 60 DISCONTINUED Issu:11-15-21 Qty: 3 for 90 days Sig: INHALE 1 PUFF Refills: 1 Last:06-10-22 BY MOUTH TWICE A DAY TO PREVENT Expr:11-16-22 TROUBLE BREATHING TWIST COVER ON AND OFF TO LOAD NEXT DOSERINSE MOUTH AFTER USING * DO NOT WASH INHALER 4) NIFEDIPINE (EQV-CC) 60MG SA TAB Qty: 90 DISCONTINUED Issu:05-30-22 for 90 days Sig: TAKE ONE TABLET BY Refills: 0 Last:05-31-22 MOUTH EVERY DAY FOR BLOOD PRESSURE Expr:08-28-22 Start Date Active Non-VA Medications Refills Expiration 1) Non-VA CHOLECALCIF 25MCG (D3-1,000UNIT) ACTIVE TAB Si UNIT MOUTH EVERY OTHER DAY 20 Total Medications /naina/ Morgan Concepcion MD Staff Physician Signed: 08/07/2022 17:21 08/12/2022 ADDENDUM STATUS: COMPLETED Daughter states that he has not been taking HCTZ for several months; I will Discontinue from our Medication List. Per her message, I will also change Furosemide and KCl to QOD use, as he is currently using it that way. /naina/ Morgan Concepcion MD Staff Physician Signed: 08/12/2022 10:39 Receipt Acknowledged By: 08/12/2022 10:42 /es/ ARIS ROGERS RN REGISTERED NURSE MORGAN CONCEPCION [facility] August 07, 2022 01:33 PM INTERNAL MEDICINE OUTPATIENT NOTE: LOCAL TITLE: MEDICINE CLINIC NURSING NOTE STANDARD TITLE: INTERNAL MEDICINE OUTPATIENT NOTE DATE OF NOTE: AUGUST 07, 2022@13:33 ENTRY DATE: AUGUST 07, 2022@13:33:30 AUTHOR: JENNY DAVALOS EXP COSIGNER: URGENCY: STATUS: COMPLETED TYPE OF VISIT: Appointment Check In Type of appointment: In-person appointment REASON FOR VISIT: Annual visit ALLERGIES: LISINOPRIL (Mar 05, 2010) VITAL SIGNS: Blood Pressure: 146/83 (08/07/2022 13:30) recheck 145/79 Pulse: 86 (08/07/2022 13:30) Respiration: 16 (08/07/2022 13:30) Temperature: 97.6 F [36.4 C] (08/07/2022 13:30) Weight: 197 lb [89.36 kg] (08/07/2022 13:30) Height: 75 in [190.5 cm] (10/16/2020 14:11) BMI: 24.7 O2 Sat: 97% (08/07/2022 13:30) Pain: 1 (08/07/2022 13:30) PAIN SCREEN: Patient is having significant pain that they would like to talk to their provider about today. Old (Chronic) (began more than 6 months ago) Patient states their average pain this past week is 1 Patient states the average number on how the chronic pain affects their enjoyment of life the past week is 1 Patient states during the past week the average number on how the pain has interfered with their general activity is 1 Pain Education Patient indicates readiness to learn and verbalizes understanding of the following: Understanding what pain is Has concerns/questions, advised to discuss with provider MEDICATION Active Outpatient Medications (including Supplies): APIXABAN 5MG TAB TAKE ONE TABLET BY MOUTH EVERY 12 HOURS ACTIVE TO PREVENT BLOOD CLOTS AND STROKE (ELIQUIS) FUROSEMIDE 20MG TAB TAKE ONE TABLET BY MOUTH EVERY MORNING ACTIVE FOR HEART FAILURE HYDROCHLOROTHIAZIDE 25MG TAB TAKE ONE-HALF TABLET BY MOUTH ACTIVE EVERY DAY METOPROLOL SUCCINATE 100MG SA TAB TAKE ONE AND ONE-HALF ACTIVE (S) TABLETS BY MOUTH EVERY DAY MOMETASONE FUROATE 220MCG ORAL INHL 60 INHALE 1 PUFF BY ACTIVE MOUTH TWICE A DAY TO PREVENT TROUBLE BREATHING TWIST COVER ON AND OFF TO LOAD NEXT DOSERINSE MOUTH AFTER USING * DO NOT WASH INHALER NIFEDIPINE (EQV-CC) 60MG SA TAB TAKE ONE TABLET BY MOUTH ACTIVE EVERY DAY FOR BLOOD PRESSURE POTASSIUM CHLORIDE 10MEQ SA TAB TAKE ONE TABLET BY MOUTH ACTIVE EVERY DAY FOR CONGESTIVE HEART FAILURE ROSUVASTATIN CA 40MG TAB TAKE ONE-HALF TABLET BY MOUTH AT ACTIVE BEDTIME FOR CORONARY ARTERY DISEASE Non-VA CHOLECALCIF 25MCG (D3-1,000UNIT) TAB 5000 UNIT ACTIVE MOUTH EVERY OTHER DAY Over the Counter/Herbal Medications: The patient states that they take some outside medications and/or herbals. Toxic Exposure Screening: The /caregiver was asked if they believe the experienced any toxic exposure(s), such as Airborne Hazards and Open Burn Pit, [place] [employer] related exposures, Agent [place], Radiation, contaminated water at [place] or other such exposures, while serving in the [employer]. has no concerns about toxic exposure(s) while serving in the [employer]. The /caregiver was informed that we will continue to ask this screening question every 5 years. They can contact their provider/healthcare team if they have concerns about exposures and would like to be screened sooner. Printed information was offered and provided if desired. Suicide Screen: C-SSRS Screening [place] Suicide Severity Rating Scale (C-SSRS) screener 1. Over the past month, have you [...] required due to responses to other questions. Influenza Immunization: The patient declines to receive the recommended dose of seasonal influenza vaccine. Immunization: INFLUENZA, UNSPECIFIED FORMULATION Refusal Reason: PATIENT DECISION Patient refuses all immunization(s) in the FLU group Date Documented: 08/07/22 13:35 Depression Screening: Perform PHQ-2 A PHQ-2 screen was performed. The score was 0 which is a negative screen for depression. Over the past two weeks, how often have you been bothered by the following problems? 1. Little interest or pleasure in doing things Not at all 2. Feeling down, depressed, or hopeless Not at all Alcohol Use Screen (AUDIT-C): Alcohol Screen: SCREEN FOR ALCOHOL (AUDIT-C) An alcohol screening test (AUDIT-C) was positive (score=5). 1. How often did you have a drink containing alcohol in the past year? Four or more times a week 2. How many drinks containing alcohol did you have on a typical day when you were drinking in the past year? Three or four drinks 3. How often did you have six or more drinks on one occasion in the past year? Never Tobacco Use Screening: The patient is a former tobacco user. The patient quit one to less than 5 years ago. Nursing Annual Screening: Fall History Screen During the past 12 months, have you had any falls? Patient does not report any falls in the past 12 months. MEDICATIONS: Patient is on one of the following medication classes: Antihypertensives, Antidepressants, Antipsychotics, Diuretics, or Controlled substance medication used for pain. FALL RISK ADVICE: Fall Risk Advice provided. Handout entitled Fall Prevention At Home reviewed and given to patient and/or significant other. Script Talk Screen Are you able to read your prescription bottles with your glasses, magnifiers or other aids? Yes or patient not taking any prescriptions. Skin Screen Patient reports any current pressure ulcers, a history of pressure ulcers, or a wound from a biomedical engineering aide or Patient is bed-confined or a wheelchair-user or Patient requires assistance to transfer/change position No, Skin Screen is Negative Home Abuse/Violence Screen Is your home free of abuse and violence? Yes MOVE! Program Screen Body Mass Index (BMI)= 24.7 Tate: Collection DT Specimen Test Name Result Units Ref Range 08/07/2022 13:16 BLOOD !! HEMOGLOBIN A1C 5.9 % 4.0 - 6.0 !! Indicates COMMENTS AVAILABLE...Refer to Interim Lab Report. [place] Hgb A1C: No data available [place] Hgb A1C: No data available Point of Care Hgb A1C: POC HGB A1C____ Outpatient Nutrition Screen Body Mass Index (BMI)= 24.7 Tate: Collection DT Specimen Test Name Result Units Ref Range 08/07/2022 13:16 BLOOD !! HEMOGLOBIN A1C 5.9 % 4.0 - 6.0 !! Indicates COMMENTS AVAILABLE...Refer to Interim Lab Report. [place] Hgb A1C: No data available [place] Hgb A1C: No data available Point of [...] No Patient Health Education Screen BARRIERS/SPECIAL NEEDS: Visual limitations PREFERRED STYLE OF LEARNING: No preference stated Client Assistive Service (GABBY) Screen Does the patient require assistance with outpatient visit? Naomie /naina/ JENNY DAVALOS LPN LPN Signed: 08/07/2022 13:38 JENNY DAVALOS [facility]
--- OUTSIDE RECORDS SUMMARY | 2023-08-05 12:52 | XMS_ITS | Encounter Summary ---
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 Organization [facility] Address [address] [place] [address] Support Name Relationship Address Phone JAVIER DE PAZ Next of Kin [phone] [place] [address] LC DE PAZLU Emergency Contact [phone] [place] [address] JAVIER DE PAZ Next of Kin [phone] [address] Insurance Providers: All historical [...] Patient's Relationship to Policy Kevin BS [place] [facility] [id number] Jan 05, 2010 [id number] [employer] ANUSHA DE PAZ PATIENT MEDICARE ([facility]) MEDICARE () PART A Jan 05, 2010 PART A [id number] ANUSHA DE PAZ PATIENT MEDICARE ([facility]) MEDICARE () PART B Jan 05, 2010 PART B [id number] ANUSHA DE PAZ PATIENT MEDICARE (WN) MEDICARE () PART A Jan 05, 2010 PART A [id number] [facility] ANUSHA DE PAZ PATIENT MEDICARE (WN) MEDICARE (M) PART A Jan 05, 2010 PART A [id number] [phone] ANUSHA DE PAZ PATIENT MEDICARE ([facility]) MEDICARE (M) PART B Jan 05, 2010 PART B [id number] [facility] [phone] ANUSHA DE PAZ PATIENT Selected Encounter This section includes the information on record at [facility] for the Encounter. Date/Time Encounter Type Encounter Description Reason Pro vider Source Nov 06, 2022 11:12 AM Outpatient Encounter COMMUNITY CARE CONSULT IHE Encounter Template Text not used by [facility] Plan of Treatment: Future Appointments (+ 6 months) and Future Tests (+/- 45 days) The Plan of Treatment section includes future care activities for the patient from all [facility] treatmentfacilities. This section includes future appointments and future orders which are active, pending or scheduled. Future Appointments This section includes appointments that were scheduled to occur 6 months from the date of the Encounter, up to a maximum of 20 appointments. The data comes from all [place] treatment facilities. Appointment Date/Time Appointment Type Appointme nt Facility Name Apr 16, 2023 12:00 PM AMBULATORY - NONE [facility] Social History: Smoking Status (Most current) and Tobacco Use (All prior to encounter date) This section includes the most current, and the historical, smoking and tobacco- related health factors from the [facility] facility where the Encounter took place. Current Smoking Status This section includes the most current smoking, or tobacco-related health factor, from the [place] facility where the Encounter took place. Date/Time Current Smoking Status Comment Facil ity August 07, 2022 01:30 PM VA-TOBACCO FORMER USER [facility] Tobacco Use History This section includes a history of the smoking, or tobacco-related health factors, that were collected on or before the date of the Encounter. The data comes from the [place] facility where the Encounter took place. Date/Time Smoking Status/Tobacco Use Comment F acility August 07, 2022 01:30 PM VA-TOBACCO QUIT 1 TO < 5 YRS [facility] Oct 16, 2020 02:45 PM VA-TOBACCO FORMER USER [facility] Oct 16, 2020 02:45 PM VA-TOBACCO QUIT 15 YRS OR MORE [facility] Mar 29, 2019 10:59 AM VA-TOBACCO USE > 1 5 LESS THAN 30 YEARS [facility] Mar 29, 2019 10:59 AM VA-TOBACCO USE ADVICE [facility] Mar 29, 2019 10:59 AM VA-TOBACCO USE TRACER CLERK NO [facility] Mar 29, 2019 10:59 AM VA-TOBACCO USE MED NO [facility] Mar 29, 2019 10:59 AM VA-TOBACCO USE WI 30 MIN OF WAKE UP [facility] Mar 29, 2019 10:59 AM VA-TOBACCO USER EVERY DAY [facility] Feb 17, 2018 03:39 PM VA-TOBACCO USE 30 YEARS OR MORE [facility] Feb 17, 2018 03:39 PM VA-TOBACCO USE ADVICE [facility] Feb 17, 2018 03:39 PM VA-TOBACCO USE TRACER CLERK NO [facility] Feb 17, 2018 03:39 PM VA-TOBACCO USE MED NO [facility] Feb 17, 2018 03:39 PM VA-TOBACCO USE WI 30 MIN OF WAKE UP [facility] Feb 17, 2018 03:39 PM VA-TOBACCO USER EVERY DAY [facility] Feb 12, 2017 12:38 PM CURRENT TOBACCO USER [facility] Apr 25, 2015 07:50 AM CURRENT TOBACCO USER [facility] Apr 21, 2014 08:25 AM CURRENT TOBACCO USER [facility] Apr 20, 2013 10:04 AM CURRENT TOBACCO USER [facility] Mar 20, 2012 09:53 AM CURRENT TOBACCO USER [facility] Feb 06, 2011 09:44 AM CURRENT TOBACCO USER [facility] Jan 02, 2010 09:22 AM CURRENT TOBACCO USER [facility] Encounter Notes: All associated encounter notes This section contains the clinical notes associated to the Encounter. Date/Time Encounter Note(s) Provider Source Nov 06, 2022 11:12 AM PHARMACY NOTE: LOCAL TITLE: PHARMACY NON [place] CARE MEDICATIONS STANDARD TITLE: PHARMACY NOTE DATE OF NOTE: NOV 06, 2022@11:12 ENTRY DATE: NOV 06, 2022@11:12:23 AUTHOR: ZOFIA CORREA COSIGNER: URGENCY: STATUS: COMPLETED [facility] Outpatient Pharmacy RECEIVED electronic prescription(s) (eRX(s)) from NON-VA Provider: VANITA WELCH Date eRX received: Nov not eligible to receive non-VA prescription(s) at this time. Prescription(s) REDIRECTED via FAX to [facility] ([facility] eRx Prescription Information: 1. ANUSHA DE PAZ 45 NIFEdipine ER 90 mg melly WELCH MA N 11/06/22 2. ANUSHA DE PAZ 45 metoprolol succinate ZAYDA WELCH N 11/06/22 3. ANUSHA DE PAZ 45 fluocinonide 0.05 % melly WELCH MA N 11/06/22 4. ANUSHA DE PAZ 45 mometasone 220 mcg/ac ZAYDA WELCH 11/06/22 5. ANUSHA DE PAZ 45 potassium chloride ER ZAYDA WELCH 11/06/22 6. ANUSHA DE PAZ 45 furosemide 20 mg tabl ZAYDA WELCH 11/06/22 7. ANUSHA DE PAZ 45 rosuvastatin 20 mg ta ZAYDA WELCH 11/06/22 8. ANUSHA DE PAZ 45 metoprolol succinate ZAYDA WELCH 11/06/22 /naina/ JB GOMEZ Pharmacist Signed: 11/06/2022 11:17 JB CORREA [facility]
--- OUTSIDE RECORDS SUMMARY | 2023-08-05 12:52 | XMS_ITS | Clinical Summary ---
Author Name Unknown Organization [facility] Address [place], [place] [address] Care Team Providers Care Line Decorator Name Role Phone Klever Monte MD Primary Care Provider [phone] Allergies Active Allergy Reactions Criticality Noted Date Comments Lisinopril Cough 03/05/2010 Medications Medication Sig Dispensed Refills Start Date End Date Status albuterol HFA (PRO-AIR; VENTOLIN; PROVENTIL) 90 mcg/actuation inhalerIndications: Panlobular emphysema (HC) Inhale 1-2 Puffs by mouth every 4 hours if needed (cough or wheezing). 0 05/16/2021 Active cholecalciferol, Vitamin D3, 5,000 unit tab tabletIndications:V itamin D deficiency Take 1 orally every other day 0 05/16/2021 Active Blood Pressure MonitorIndications: Essential hypertension For home use to monitor BP 1 Each 07/02/2021 Active metoprolol succinate (TOPROL XL) 100 mg Sustained-Release tabletIndications:C oronary artery disease involving [place] coronary artery of [place] heart with angina pectoris (HC),Permanent atrial fibrillation with rapid ventricular response (HC) Take 1 Tablet (100 mg) by mouth two times daily. 180 Tablet 3 11/06/2022 Active fluocinonide 0.05% topical (LIDEX) 0.05 % creamIndications:Mehta nd eczema Apply topically to affected area(s) two times daily. 30 g 2 11/06/2022 Active rosuvastatin (CRESTOR) 20 mg tabletIndications:C erebrovascular accident (CVA) due to thrombosis of left anterior cerebral artery (HC) Take 1 Tablet (20 mg) by mouth at bedtime. 90 Tablet 3 11/06/2022 Active apixaban (ELIQUIS) 5 mg tabletIndications:P ermanent atrial fibrillation with rapid ventricular response (HC),Cerebrovascula r accident (CVA) due to thrombosis of left anterior cerebral artery (HC) Take 1 Tablet (5 mg) by mouth two times daily. 180 Tablet 3 11/06/2022 Active NIFEdipine (PROCARDIA XL) 90 mg extended-release tabletIndications:P ermanent atrial fibrillation with rapid ventricular response (HC) Take 1 Tablet (90 mg) by mouth once daily before a meal. 90 Tablet 3 11/06/2022 Active fluticasone propion-salmeteroL (ADVAIR) 250-50 mcg/Dose diskus inhaler Inhale 1 Puff by mouth every 12 hours. Active furosemide (LASIX) 20 mg tabletIndications:C hronic diastolic congestive heart failure (HC) Lasix to 20 mg on Friday, Friday and Friday. 45 Tablet 3 02/19/2023 Active potassium chloride 10 mEq extended-release tablet (part/cryst)Indicat ions:Chronic diastolic congestive heart failure (HC) Potassium 10 meq on Friday, Friday and Friday. 45 Tablet 3 02/19/2023 Active trimethoprim-sulfam ethoxazole, 160-800 mg, (BACTRIM DS, SEPTRA DS) tabIndications:Cell ulitis, unspecified cellulitis site Take 1 Tablet by mouth two times daily for 7 days. 14 Tablet 08/01/2023 08/08/2023 Active Active Problems Problem Noted Date Diagnosed Date Chronic diastolic congestive heart failure 08/01 Surgical wound, non healing 05/26/2020 Open wound of right great toe 05/26/2020 Cerebrovascular accident (CV A) due to thrombosis of left anterior cerebral artery 04/05/2020 Stroke 03/20/2020 Acute ischemic stroke 03/20/2020 BPH (benign prostatic hyperplasia) 03/19/2020 Permanent atrial fibrillatio n with rapid ventricular response 02/11/2020 Coronary artery disease invo lving [place] coronary artery of [place] heart with angina pectoris 01/27/2020 Overview: - coronary angiogram 01/27/2020 - PCI to LAD and LCx PAD (peripheral artery disease) 11/08/2019 Overview: Hx of left femoral- PT bypass 07/18/20 1. ultrasound-guided percutaneous access of the right common femoral artery 2. Diagnostic pelvic angiogram 3. Diagnostic left lower extremity angiogram 4. Plain balloon angioplasty of the left common femoral to posterior tibial artery great saphenous vein bypass with a 4 mm x 200 mm plain balloon 5. Drug-coated balloon angioplasty of the left common femoral to posterior tibial artery great saphenous vein bypass with a 4 mm x 200 mm followed by 150 mm long balloon 6. Percutaneous closure of the right common femoral artery with a single Perclose pro glide device 08/01/20 1. LLE angiogram 2. COOK VACUUM KETTLE of [place] peroneal Panlobular emphysema 10/21/2018 COPD exacerbation 09/09/2018 Acute on chronic systolic CHF (congestive heart failure) 09/09/2018 Pulmonary hypertension 11/11/2016 Overview: Noted on 11/04/16 echo Vitamin D deficiency 03/27/2015 Cardiomyopathy 03/21/2015 Overview: EF 45-50% on 11/04/16 echo Adenomatous colon polyp 03/05/2012 Overview: Colonoscopy 02/2012 polyps repeat in 5 years Pulmonary nodules 04/24/2009 Benign neoplasm of colon 12/15/2006 Overview: Colonoscopy 03/2017 polyp repeat in 5 years Colonoscopy 11/2022 multiple TA, repeat in 3 years Benign localized hyperplasia of prostate without urinary obstruction and other lower urinary tract symptoms (LUTS) 10/31/2006 Impotence of organic origin 10/31/2006 Tobacco use disorder 10/31/2006 Chronic atrial fibrillation 08/07/2006 Hyponatremia Wound, surgical, infected Resolved Problems Problem Noted Date Diagnosed Date Resolved Date Anticoagulation monitoring, DOAC 06/02/2020 09/09/2022 Concern about stroke without diagnosis 03/19/2020 03/20/2020 Anticoagulation monitoring, INR range 2-3 02/21/2014 06/02/2020 Secondary cardiomyopathy, unspecified 10/31/2006 03/21/2015 Impaired fasting glucose Encounters Date Type Department Care Team Description 08/04/2023 8:35 AM CDT Office Visit [facility] [address] [place] [address] Jena Pascual PA Follow Up (Boil) 08/04/2023 Travel 08/01/2023 8:35 AM CDT Office Visit [facility] [address] [place] [address] Jena Pascual PA Derm Problem 08/01/2023 Travel from Last 3 Months Immunizations Name Administration Dates Next Due AMB INFLUENZA IIV3 (AGE 65+ YRS) PF (Flu Clinic Only) 02/24/2019 COVID-19 vaccine (Pfizer-Bio NTech 30mcg/0.3mL) 12YO+ JAMES-SUCROSE PF, MDV 08/24/2021 COVID-19 vaccine ([employer]-Bio NTech 30mcg/0.3mL) PF, MDV 06/17/2020,05/27/2020 Influenza Virus, Unspecified 12/29/2020, 01/05/2018,02/12/2017,2015,02/07/2014,04/20/2013,03/20/2012,1 04/08/2010 Influenza, High-dose Inactivated 04/09/2016 Influenza, IIV3 (Age >=3 years) 02/05/2019 Influenza, Inactivated AIIV4 (Age 65+ Years) Preserv Free 12/29/2020,01/06/2020 Influenza, Inactivated IIV3 (Age 65+ Years) Preserv Free 12/23/2017 Pneumococcal Poly,23-Valent (Pneumovax) 02/12/2017,04/09/2016,12/14/1997 Pneumococcal conj 13-Valent (Prevnar 13) 04/25/2015,07/05/2014 Pneumococcal, Unspecified 01/02/2010 Td (Age >=7 Years) 02/12/2017 Tdap 04/24/2009,04/07/2007 Zoster (Shingrix-RZV, recombinant) 01/18/2021, Zoster (Zostavax-ZVL, live) 04/07/2008, 7 Family History Medical History Relation Name Comments Other Father accidental deat h at 40 Diabetes Mother Other Mother dementia Diabetes Sister 5 Relation Name Status Comments Brother 1 Alive Brother 2 Alive Daughter 1 Alive Daughter 2 Alive Daughter 3 Alive Father (Age 40) accidental Mother (Age 92) dementia Sister 1 Alive Sister 2 Alive Sister 3 Alive Sister 4 Alive Sister 5 Social History Tobacco Use Types Packs/Day Years Used Date Smoking Tobacco: Former Cigarettes 1 28.8 0 04/07/1991 - 01/15/2020 Cigars Smokeless Tobacco: Never Tobacco Cessation:Counseling Given: Yes Comments:TIP 02/08/2020, 01/28/2020 Alcohol Use Standard Drinks/Week Comments Not Currently 0 (1 standard drink = 0.6 oz pur e alcohol) see screening PHQ-2 Answer Date Recorded PHQ-2 TOTAL SCORE 0 11/06/2022 Social Connections Answer Date Recorded Frequency of Communication with Friends and Fami ly 0 08/01/2023 Alcohol Use Answer Date Recorded How often do you have a drink containing alcohol ? 4 11/06/2022 How many drinks containing a lcohol do you have on a typical day when you are drinking? 1 11/06/2022 How often do you have five or more drinks on one occasion? 2 11/06/2022 Financial Resource Strain Answer Date R ecorded Difficulty of Paying Living Expenses 3 08/01/2023 Difficulty of Paying Living Expenses Not on file 08/01/2023 Food Insecurity Answer Date Recorded Worried About Running Out of Food in the Last Ye ar 1 08/01/2023 Transportation Needs Answer Date Record ed Lack of Transportation (Medical) 1 08/01/2023 Housing Stability Answer Date Recorded Unable to Pay for Housing in the Last Year 1 08/01/2023 Sex and Gender Information Value Date Recorded Sex Assigned at Not on file Gender Identity Not on file Sexual Orientation Not on file Obstetrics History Last Filed Vital Signs Vital Sign Reading Time Taken Comments Blood Pressure 112/68 08/04/2023 8:35 AM CDT Pulse 77 08/04/2023 8:35 AM CDT Temperature 36.5 ??C (97.7 ??F) 08/04/2023 8:35 AM CD T Respiratory Rate 18 03/17/2023 3:35 PM SPLITTER OPERATOR Oxygen Saturation 96% 08/04/2023 8:35 AM CDT Inhaled Oxygen Concentration - - Weight 90.7 kg (200 lb) 08/04/2023 8:35 AM CDT Height 190.5 cm (6' 3) 03/17/2023 2:07 PM SPLITTER OPERATOR Body Mass Index 25 03/17/2023 2:07 PM SPLITTER OPERATOR Plan of Treatment Upcoming Encounters Date Type Department Care Team (Late st Contact Info) Description 08/06/2023 1:40 PM CDT Nurse/Clinic Staff Only [facility] [address] [place] [address] Health Maintenance Due Date Last Done Comments Low Dose CT (for lung CA) ag e 50-80 08/30/2011 08/29/2010 COVID-19 vaccine series ( season) 2022 04/24/2022, 08/24/2021, 02/09/2021, Additional history exists BMI (ht and wt on same day) for age 18+ 11/07/2023 11/06/2022, 11/01/2021, 05/16/2021, Additional history exists Medicare Wellness for age 65+ 11/07/2023, 05/16/2021, 10/12/2019, Additional history exists Depression screening for age 12+ 11/09/2023 11/08/2022, 11/06/2022, 11/06/2022, Additional history exists Influenza for age 65+ 12/07/2023 12/29/2020 , 12/29/2020, 01/06/2020, Additional history exists Tetanus booster 02/12/2027 02/12/2017, 04/07, 04/07/2007 Tdap Completed 04/24/2009, 04/07/2007 Pneumococcal series for age 65+ Completed 02/12/2017, 04/09/2016, 04/25/2015, Additional history exists Zoster (shingles) series for age 50+ Completed 01/18/2021, 10/16/2020, 04/07/2008, Additional history exists Hepatitis C screening for ag e 18-79 Completed 05/16/2021 Procedures Procedure Name Priority Date/Time Associated Diagnosis Comments AEROBIC BACTERIAL CULTURE, STAIN Routine 08/01/2023 9:30 AM CDT Abscess of back ANTI HCV Routine 05/16/2021 3:20 PM SPLITTER OPERATOR Need for hepatitis C screening test CT CHEST WO Routine 08/29/2010 4:53 PM CDT Pulmonary nodules from Last 3 Months or Most Recently Relevant to Health Maintenance Results * AEROBIC BACTERIAL CULTURE, STAIN (08/01/2023 9:30 AM CDT) CULTURE No Growth. 08/03/2023 3:00 PM CDT [facility] GRAM STAIN 4+ RBCs 08/03/2023 3:00 PM CDT [facility] GRAM STAIN 1+ PMNs 08/03/2023 3:00 PM CDT [facility] GRAM STAIN No Epithelial cells 08/03/2023 3:00 PM CDT [facility] GRAM STAIN 4+ Gram Positive Cocci 08/03/2023 3:00 PM CDT [facility] GRAM STAIN 3+ Gram Negative Bacilli 08/03/2023 3:00 PM CDT [facility] Other (Other) Non-Blood / Unknown 08/01/2023 9:30 AM CDT 08/01/2023 9:31 AM CDT [facility] [address] [place], [place] [address] * ANTI HCV (05/16/2021 3:20 PM SPLITTER OPERATOR) HEPATITIS C ANTIBODY Non-React edelmira Non-React edelmira 05/17/2021 1:21 AM SPLITTER OPERATOR [facility] Comment:Antibodies to HCV no t detected; does not exclude the possibility of exposure to HCV. Blood BLOOD SPECIMEN / Unknown Venipuncture / Unknown 05/16/2021 3:20 PM SPLITTER OPERATOR 05/16/2021 3:25 PM SPLITTER OPERATOR Zak Garcia MD SEND OUTS [facility] [address] [place] [address], [place] * CT CHEST WO CONTRAST (08/29/2010 4:53 PM CDT) Anatomical Region Laterality Modality CHEST, THORAX, HEART Computed To mography Impressions 08/30/2010 2:43 PM CDT ?? 1. ??The previously-seen pulmonary nodules have resolved. 2. ??The infiltrate at the left lung base has also resolved. ?? 3. ??No masses, nodules or significant mediastinal lymphadenopathy is identified. 4. ??There is some scattered fibrosis seen, particularly in the right middle lobe, but the previous infiltrates have resolved. ?? 5. ??Incidental note is made of a stable diverticulum off there stomach and a probable 3.8-cm cyst off the right kidney on image #153 of series #2. ? Narrative 08/30/2010 2:[address] CHEST WITHOUT CONTRAST CLINICAL HISTORY: ??Follow up pulmonary nodule. ?? TECHNIQUE: ??The chest was scanned from the apices through the lung bases without contrast. ?? COMPARISON: ??Prior CT of the chest of 09/27/08. ?? FINDINGS: ??The previously-seen nodule in the right upper lobe appears to have resolved. ??The nodule in the right lung seen previously near the oblique fissure in the right lower lobe has also resolved and the 3 to 4-mm nodule in the right upper lobe on image #67 is also not seen with certainty. ??Lungs are now clear. ??No masses or nodules are identified. ?? There is some fibrosis seen in the region of the right middle lobe on image #79 of series #3, and there are some scattered emphysematous changes noted. ??The moderate-sized area of atelectasis or consolidation involving the basilar portion of the left lower lobe has resolved. ?? Procedure Note Naman Lenz MD - 08/30/2010 CT CHEST WITHOUT CONTRAST CLINICAL HISTORY: Follow up pulmonary nodule. TECHNIQUE: The chest was scanned from the apices through the lung baseswithout contrast. COMPARISON: Prior CT of the chest of 09/27/08. FINDINGS: The previously-seen nodule in the right upper lobe appears tohave resolved. The nodule in the right lung seen previously near theoblique fissure in the right lower lobe has also resolved and the 3 to4-mm nodule in the right upper lobe on image #67 is also not seen withcertainty. Lungs are now clear. No masses or nodules are identified.There is some fibrosis seen in the region of the right middle lobe onimage #79 of series #3, and there are some scattered emphysematous changesnoted. The moderate-sized area of atelectasis or consolidation involvingthe basilar portion of the left lower lobe has resolved. IMPRESSION: 1. The previously-seen pulmonary nodules have resolved. 2. The infiltrate at the left lung base has also resolved. 3. No masses, nodules or significant mediastinal lymphadenopathy isidentified. 4. There is some scattered fibrosis seen, particularly in the rightmiddle lobe, but the previous infiltrates have resolved. 5. Incidental note is made of a stable diverticulum off there stomach raj probable 3.8-cm cyst off the right kidney on image #153 of series #2. Zak Garcia MD CT from Last 3 Months or Most Recently Relevant to Health Maintenance Advance Directives * Full Code (Latest Code Status on File) Date Activated Date Inactivated Comments 08/01/2020 10:36 PM 08/02/2020 1:46 PM Question Answer Comments Code Status Discussion: Discussed * Full Code Date Activated Date Inactivated Comments 03/19/2020 6:44 PM 03/21/2020 5:11 PM Question Answer Comments Code Status Discussion: Discussed * Full Code Date Activated Date Inactivated Comments 03/13/2020 6:56 PM 03/16/2020 4:39 PM Question Answer Comments Code Status Discussion: Discussed * Full Code Date Activated Date Inactivated Comments 02/02/2020 6:13 AM 02/17/2020 12:53 PM Question Answer Comments Code Status Discussion: Not Discussed * Full Code Date Activated Date Inactivated Comments 01/27/2020 3:22 PM 01/28/2020 2:06 PM Question Answer Comments Code Status Discussion: Discussed Care Teams Line Decorator Relationship Specialty Start Date End Date Klever Monte [place] [address] PCP - General Family Practice 06/12/22
--- OUTSIDE RECORDS SUMMARY | 2023-08-05 12:52 | XMS_ITS | Encounter Summary ---
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 Organization [facility] Address [address] [place] [address] Support Name Relationship Address Phone JAVIER DE PAZ Next of Kin [address] [place] [address] [place] Emergency Contact [phone] [place] [address] JAVIER DE PAZ Next of Kin [address] [address] [address] Insurance Providers: All historical [...] Patient's Relationship to Policy Kevin BS [place] [facility] ([facility]) [facility] [id number] Jan 05, 2010 [id number] [employer] ANUSHA DE PAZ PATIENT MEDICARE ([facility]) MEDICARE () PART A Jan 05, 2010 PART A [id number] [phone] ANUSHA DE PAZ PATIENT MEDICARE ([facility]) MEDICARE () PART B Jan 05, 2010 PART B [id number] [phone] ANUSHA DE PAZ PATIENT MEDICARE (WN) MEDICARE () PART A Jan 05, 2010 PART A [id number] [facility] ANUSHA DE PAZ PATIENT MEDICARE (WN) MEDICARE (M) PART A Jan 05, 2010 PART A [id number] [phone] ANUSHA DE PAZ PATIENT MEDICARE ([facility]) MEDICARE (M) PART B Jan 05, 2010 PART B [id number] [facility] [phone] ANUSHA DE PAZ PATIENT Selected Encounter This section includes the information on record at [place] for the Encounter. Date/Time Encounter Type Encounter Description Reason Pro vider Source Dec 08, 2022 11:11 AM Outpatient Encounter [facility] CONSULT IHE Encounter Template Text not used by [place] Plan of Treatment: Future Appointments (+ 6 months) and Future Tests (+/- 45 days) The Plan of Treatment section includes future care activities for the patient from all [place] treatmentfacilities. This section includes future appointments and future orders which are active, pending or scheduled. Future Appointments This section includes appointments that were scheduled to occur 6 months from the date of the Encounter, up to a maximum of 20 appointments. The data comes from all [place] treatment facilities. Appointment Date/Time Appointment Type Appointme nt Facility Name Apr 16, 2023 12:00 PM AMBULATORY - NONE [facility] Social History: Smoking Status (Most current) and Tobacco Use (All prior to encounter date) This section includes the most current, and the historical, smoking and tobacco- related health factors from the PR facility where the Encounter took place. Current Smoking Status This section includes the most current smoking, or tobacco-related health factor, from the PR facility where the Encounter took place. Date/Time Current Smoking Status Comment Facil ity August 07, 2022 01:30 PM VA-TOBACCO FORMER USER [facility] Tobacco Use History This section includes a history of the smoking, or tobacco-related health factors, that were collected on or before the date of the Encounter. The data comes from the PR facility where the Encounter took place. 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 NO [facility] Mar 29, 2019 10:59 AM VA-TOBACCO USE MED NO [facility] Mar 29, 2019 10:59 AM VA-TOBACCO USE WI 30 MIN OF WAKE UP [facility] Mar 29, 2019 10:59 AM VA-TOBACCO USER EVERY DAY [facility] Feb 17, 2018 03:39 PM VA-TOBACCO USE 30 YEARS OR MORE [facility] Feb 17, 2018 03:39 PM VA-TOBACCO USE ADVICE [facility] Feb 17, 2018 03:39 PM VA-TOBACCO USE 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 NO [facility] Feb 17, 2018 03:39 PM VA-TOBACCO USE MED NO [facility] Feb 17, 2018 03:39 PM VA-TOBACCO USE WI 30 MIN OF WAKE UP [facility] Feb 17, 2018 03:39 PM VA-TOBACCO USER EVERY DAY [facility] Feb 12, 2017 12:38 PM CURRENT TOBACCO USER [facility] Apr 25, 2015 07:50 AM CURRENT TOBACCO USER [facility] Apr 21, 2014 08:25 AM CURRENT TOBACCO USER [facility] Apr 20, 2013 10:04 AM CURRENT TOBACCO USER [facility] Mar 20, 2012 09:53 AM CURRENT TOBACCO USER [facility] Feb 06, 2011 09:44 AM CURRENT TOBACCO USER [facility] Jan 02, 2010 09:22 AM CURRENT TOBACCO USER [facility] Encounter Notes: All associated encounter notes This section contains the clinical notes associated to the Encounter. Date/Time Encounter Note(s) Provider Source Dec 08, 2022 11:11 AM PHARMACY NOTE: LOCAL TITLE: PHARMACY NON PR CARE MEDICATIONS STANDARD TITLE: PHARMACY NOTE DATE OF NOTE: DEC 08, 2022@11:11 ENTRY DATE: DEC 08, 2022@11:11:15 AUTHOR: NATHEN MCPHERSON EXP COSIGNER: URGENCY: STATUS: COMPLETED [facility] Outpatient Pharmacy RECEIVED electronic prescription(s) (eRX(s)) from NON-PR Provider: VANITA WELCH Date eRX received: Dec [place] not eligible to receive non-VA prescription(s) at this time. Prescription(s) REDIRECTED via FAX to: [X][facility] ([facility]ual) [facility] [ ]Other: [ ] [facility] ([facility]) [ ] [facility] eRx Reference #: [id number] eRx Prescription Information: eRx Drug: mometasone 200 mcg/actuation HFA aerosol inhaler eRx Qty: 3 eRx Refills: 3 eRx Days Supply: eRx Written Date: DEC 06, 2022 eRx Issue Date: Prohibit Renewals: No eRx Sig: Inhale 1 Puff by mouth two times daily. /naina/ NATHEN MCPHERSON Pharmacist Signed: 12/08/2022 11:12 NATHEN MCPHERSON [facility]
--- OUTSIDE RECORDS SUMMARY | 2023-08-05 12:53 | XMS_ITS | Data Portability ---
Author Name Unknown Address [address] [place] [address] Phone [phone] Organization [place] [facility], [employer] Address [address] [place] [address] Assessment Encounter Date Assessment Date Assessment LastModified by Organization Details LastModified Time 04/24/2022 04/24/2022 Nails debrided 1-5 as previously documented. The patient will be seen in 3 months or sooner if problems arise. Not available 04/24/2022 11:14:41 07/24/2022 07/24/2022 Nails debrided 1-5 as previously documented. The patient will be seen in 3 months or sooner if problems arise. ABN signed today. Not available 07/24/2022 10:35:51 10/23/2022 10/23/2022 Nails debrided 1-5 as previously documented. The patient will be seen in 3 months or sooner if problems arise. ABN signed today. Not available 10/23/2022 11:44:47 Plan of Treatment Reminders Order Date Submit Date Provider Last Modified By Organization Details Last Modified Time Details Appointments None record ed. Lab None record ed. Referral None record ed. Procedures None record ed. Surgeries None record ed. Imaging None record ed. Medication Orders None record ed. Patient TargetsNo targets recorded. Patient InstructionsNo instructions recorded. Reason for Referral None Reported. Problems Name Status Onset Date Resolution Date Notes Provider Name and Address Organization Details Recorded Time Tobacco user Active 2015 Tobacco user; Original Code: 711094781 Origi nal Codesystem: SNOMED CT Classificati on: Medical Confirm ation Status: Probable Not Available [facility] Onychomycosis of toenails Active 2015 Onychomycosis of toenails; Original Code: 5960434850 Orig inal Codesystem: SNOMED CT Classificati on: Medical Confirm ation Status: Confirmed Not Available [facility] 09:10:17 Heart disease Active 2021 Heart disease; Original Code: 37498793 Origin al Codesystem: SNOMED CT Classificati on: Medical Confirm ation Status: Confirmed Not Available [facility] 09:10:17 Corns and callus Active 2015 Corns and callus; Original Code: 084782959 Origi nal Codesystem: SNOMED CT Classificati on: Medical Confirm ation Status: Confirmed Not Available [facility] 09:10:17 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; Original Code: 6415314171 Orig inal Codesystem: SNOMED CT Classificati on: Medical Confirm ation Status: Confirmed Not Available [facility] 09:10:17 Foot pain Active 2015 Foot pain; Original Code: 388563438 Origi nal Codesystem: SNOMED CT Classificati on: Medical Confirm ation Status: Confirmed Not Available [facility] 3 09:10:17 Acquired hallux valgus Active 2015 Acquired hallux valgus; Original Code: 759485271 Origi nal Codesystem: SNOMED CT Classificati on: Medical Confirm ation Status: Confirmed Not Available [facility] 3 09:10:17 Acquired hallux malleus Active 2015 Acquired hallux malleus; Original Code: 80348120 Origin al Codesystem: SNOMED CT Classificati on: Medical Confirm ation Status: Confirmed Not Available [facility] 3 09:10:17 Atrial fibrillation Active 2015 Atrial fibrillation; Original Code: 84238588 Origin al Codesystem: SNOMED CT Classificati on: Medical Confirm ation Status: Confirmed Not Available [facility] 3 09:10:17 Hypertensive disorder Active 2015 Hypertensive disorder; Original Code: 7552606120 Orig inal Codesystem: SNOMED CT Classificati on: Medical Confirm ation Status: Confirmed Not Available [facility] 09:10:17 Notes:H/O: anticoagulant the bharti Original Code: 758040047 Original Codesystem: SNOMED CT Classification: Medical Confirmation Status: Confirmed Problem Notes None recorded. Procedures Surgical History Date Name Laterality Status Provider Name and Address Organization Details Recorded Time 10/24/[address] Hong Andres, DIANE [address] [place] [address], [phone], [facility] 10/23/2022 11:44:57 07/25/[address] Hong Andres DPM [address] [place] [address], [phone], [facility] 07/24/2022 10:35:10 04/24/[address] Hong Andres DPM [address] [place] [address], [phone], [facility] 04/24/2022 11:13:18 Imaging Results None recorded. Procedure Notes None recorded. Medical Equipment None Reported. Allergies No known drug allergies Medications Name Sig Start Date Stop Date Status Note LastModified by Organization Details LastModified Time fluocinonide 0.05 % topical cream APPLY TOPICALLY TO AFFECTED AREA(S) 2 TIMES DAILY active Not Available Not Available No t Available Vitals Date Recorded Body height Body mass index (BMI) Body weight Provider Name and Address Organization Details Last Updated DateTime 04/24/2022 190.5 cm 25 kg/m2 16793.47 g [facility] 04/24/2022 10:32:58 Social History None recorded. Functional Status None recorded. Mental Status None recorded. Family History Nothing Reported. Medical History No medical history recorded. Past Encounters Encounter ID Performer Location Encounter Start Date Encounter Closed Date Diagnosis/Indication Diagnosis SNOMED-CT Code [id number] Too Andres DPM [place] [facility] [address] [place] [address] 04/24/2022 10:31:04 04/24/2022 13:46:36 Onychomycosis 577881041 Peripheral vascular disease 138151366 4776 Too Andres DPM [place] [facility] [address] [place] [address] 07/24/2022 10:14:25 07/25/2022 09:45:42 Onychomycosis 593781276 Peripheral vascular disease [id number] 7314 Too Andres DPM [place] [facility] [address] [place] [address] 10/23/2022 10:13:43 10/24/2022 09:44:58 Onychomycosis 676778270 Peripheral vascular disease 260005252 Health Concerns Section Related Observation LastModified by Organization Detai ls LastModified Time None Recorded Concern Status LastModified by Organization Details LastModified Time None Recorded Advance Directives Directive None Recorded Payers Encounter Date Sequence Insurance Name Policy Number Policy Kevin Covered Member ID Kevin Member ID Guarantor Name 10/23/2022 1 [place] [id number] Bola Zurita [id number] Bola Zurita 07/24/2022 1 [place] [id number] Bola Zurita [id number] Bola Zurita 04/24/2022 1 [place] [id number] Bola Zurita [id number] Bola Zurita Notes Date Note Type Note Provider Name and Address Organization Details Recorded Time 04/24/2022 text/html HPI Notes: Pawel salmeron is a 77 year old male established patient who presents with the chief complaint. Presents today for evaluation of problematic toenails and feet in general. They relate chronic thickening and deformity to their toenails that has not responded to self-trimming, topical ecoa-ert-vgtootc anti-fungal therapy, foot soaks, and other similar conservative treatments. Nails are painful with catching on shoegear and socks. Denies any recent foot injury or infection. Claudication symptoms: No Burning symptoms: No Paresthesia: Subjective numbness to the left lower extremity consistent with his previous surgical procedures performed through Vascular surgery in the [facility] Patient presents for further evaluation and treatment options. Too Andres DPM [address] [place], [phone], [facility] 04/24/2022 11:14:44 07/24/2022 text/html HPI Notes: Pawel salmeron is a 77 year old male established patient who presents with the chief complaint. Presents today for evaluation of problematic toenails and feet in general. They relate chronic thickening and deformity to their toenails that has not responded to self-trimming, topical vxwy-sxl-tlnsphv anti-fungal therapy, foot soaks, and other similar conservative treatments. Nails are painful with catching on shoegear and socks. Denies any recent foot injury or infection. Claudication symptoms: No Burning symptoms: No Paresthesia: Subjective numbness to the left lower extremity consistent with his previous surgical procedures performed through Vascular surgery in [facility] Patient presents for further evaluation and treatment options. Too Andres DPM [address] [place], [address], [facility] 07/24/2022 10:35:54 10/23/2022 text/html HPI Notes: Pawel salmeron is a 77 year old male established patient who presents with the chief complaint. Presents today for evaluation of problematic toenails and feet in general. They relate chronic thickening and deformity to their toenails that has not responded to self-trimming, topical aqfj-lud-ogyqywv anti-fungal therapy, foot soaks, and other similar conservative treatments. Nails are painful with catching on shoegear and socks. Denies any recent foot injury or infection. Claudication symptoms: No Burning symptoms: No Paresthesia: Subjective numbness to the left lower extremity consistent with his previous surgical procedures performed through Vascular surgery in [facility] Patient presents for further evaluation and treatment options. Too Andres DPM [address] [place], [address], [facility] 10/23/2022 11:45:19
== END 2023-08-05 12:44 | disposition home or self-care (01) ==
LOC: WOUND 12:48
PROVIDERS: PCP Family Medicine; Visit Provider Nurse Practitioner Family
DX: L02.212 Cutaneous abscess of back [any part, except buttock and flank] (principal); L72.0 Epidermal cyst
CPT/HCPCS: 11043; 87070; 88304; G0463

== ENCOUNTER 2023-08-07 11:38 | Outpatient (CLI) | payer MEDICARE, BC, SELFPAY ==
--- OUTSIDE RECORDS SUMMARY | 2023-08-07 11:40 | XMS_ITS | Clinical Summary ---
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 LLE angiogram 2. 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 [phone] Unknown, Doctor 08/04/2023 8:35 AM CDT Office Visit [facility] [address] [place] [address] Jena Pascual PA Follow Up (Boil) 08/04/2023 Travel 08/01/2023 8:35 AM CDT Office Visit [facility] [address] [place] [address] Jena Pascual PA Derm Problem 08/01/2023 Travel from Last 3 Months Immunizations Name Administration Dates Next Due AMB INFLUENZA IIV3 (AGE 65+ YRS) PF (Flu Clinic Only) 02/24/2019 COVID-19 vaccine (Pfizer-Bio NTech 30mcg/0.3mL) 12YO+ JAMES-SUCROSE PF, MDV 08/24/2021 COVID-19 vaccine (PanTheryx-Bio NTech 30mcg/0.3mL) PF, MDV 06/17/2020,05/27/2020 Influenza Virus, [...] T Respiratory Rate 18 03/17/2023 3:35 PM PIT SUPERVISOR Oxygen Saturation 96% 08/04/2023 8:35 AM CDT Inhaled Oxygen Concentration - - Weight 90.7 kg (200 lb) 08/04/2023 8:35 AM CDT Height 190.5 cm (6' 3) 03/17/2023 2:07 PM PIT SUPERVISOR Body Mass Index 25 03/17/2023 2:07 PM PIT SUPERVISOR Plan of Treatment Health Maintenance Due Date Last Done Comments Low Dose CT (for lung CA) ag e 50-80 08/30/2011 08/29/2010 COVID-19 vaccine series (2022- season) 2022 04/24/2022, 08/24/2021, 02/09/2021, Additional history [...] back ANTI HCV Routine 05/16/2021 3:20 PM PIT SUPERVISOR Need for hepatitis C screening test CT CHEST WO Routine 08/29/2010 4:53 PM CDT Pulmonary nodules from Last 3 Months or Most Recently Relevant to Health Maintenance Results * AEROBIC BACTERIAL CULTURE, STAIN (08/01/2023 9:30 AM CDT) Pathologist [facility] CULTURE No Growth. 08/03/2023 3:00 PM CDT [facility] GRAM STAIN 4+ RBCs 08/03/2023 3:00 PM CDT [facility] GRAM STAIN 1+ PMNs 08/03/2023 3:00 PM CDT [facility] GRAM STAIN No Epithelial cells 08/03/2023 3:00 PM CDT [facility] GRAM STAIN 4+ Gram Positive Cocci 08/03/2023 3:00 PM CDT [facility] GRAM STAIN 3+ Gram Negative Bacilli 08/03/2023 3:00 PM CDT [facility] Other (Other) Non-Blood / Unknown 08/01/2023 9:30 AM CDT 08/01/2023 9:31 AM CDT Jena RICHARDSON [facility] [address] * ANTI HCV (05/16/2021 3:20 PM PIT SUPERVISOR) HEPATITIS C ANTIBODY Non-React edelmira Non-React edelmira 05/17/2021 1:21 AM PIT SUPERVISOR [facility] Comment:Antibodies to HCV no t detected; does not exclude the possibility of exposure to HCV. Blood BLOOD SPECIMEN / Unknown Venipuncture / Unknown 05/16/2021 3:20 PM PIT SUPERVISOR 05/16/2021 3:25 PM PIT SUPERVISOR Zak Garcia MD SEND OUTS [facility] [address] [place] [address], [place] * CT CHEST WO CONTRAST (08/29/2010 [...] Comments Code Status Discussion: Discussed Care Teams Vending Supervisor Relationship Specialty Start Date End Date Klever Monte MD [address] [place] [address] PCP - General Family Practice 06/12/22
--- OUTSIDE RECORDS SUMMARY | 2023-08-07 11:40 | XMS_ITS | Continuity of Care Document ---
Author Name [facility] Organization [facility] Care Team Providers Care Mask Inspector Name Role Phone [facility] Unavailable Unavailable Problems Combined list of problems from Department of Defense and Veterans Affairs facilities. It does not include entries that were removed or entered in error. Problem Status Onset Date Problem Type Date of Resolution Comments Source CVD - Cerebrovascular Disease ([facility] 24864587) Active 03/19/20 20 Condition May 01, 2020 Entered By: YOAV CHAUHAN Comment: 03/19/20: L MCA CVA, Admit ANW. Cardio-embol ic d/t Warfarin DC [facility] CAD - Coronary Artery Disease ([facility] 47256348) Active 01/27/20 20 Condition Mar 13, 2020 Entered By: YOAV CHAUAHN Comment: 01/27/20: LAD and Dx stented w/SATHYA at [facility]. Plavix +ASA thru 01/26/21 [facility] Peripheral arterial insufficiency Active 01/21/20 20 Condition Mar 13, 2020 Entered By: YOAV CHAUHAN Comment: 01/21/20: L femoral Art occlusion per [facility]-->Fem -Tibial bypass planned [facility] Allergic rhinitis (SNOMED CT 77862183) Active Condition [facility] Atrial fibrillation (SNOMED CT 62159327) Active Condition Apr 26, 2015 Entered By: YOAV CHAUHAN Comment: Warfarin through Miryam Rodriguez [facility] Co-Managed Care Active Condition Dec 25, 2017 Entered By: YOAV CHAUHAN Comment: Dr Garcia, Michael [place], F: [phone] , [facility] COPD - Chronic Obstructive Pulmonary Disease ([facility] 73993221) Active Condition Dec 25, 2017 Entered By: YOAV CHAUHAN Comment: Mometasone & Albuterol MDI's [facility] [place] of toe Active Condition Sep 08, 2019 Entered By: YOAV CHAUHAN Comment: R middle toe [facility] Current smoker Active Condition Apr 082015 Entered By: YOAV CHAUHAN Comment: Cigars, not cigarettes [facility] Essential hypertension (SNOMED CT 37390110) Active Condition [facility] Glucose intolerance Active Condition [facility] Nocturia due to benign prostatic hypertrophy Active Condition [facility] Health Maintenance (ICD-9-CM V65.9) Inactive Condition 04/26/[address] [facility] Diagnosis: ICD-10-CM Z00.01 Encounter for general adult medical exam w abnormal findings [facility] Diagnosis: ICD-10-CM Z79.01 custodial (current) use of anticoagulants [facility] Diagnosis: ICD-10-CM Z76.0 Encounter for issue of repeat prescription Active Diagnosis [facility] Medications Combined list of outpatient medications from [...] S OF BREATH INHALA TION HOLD 07/17/2024 [id number] AFRICA CHAUHAN 2023 2 [facility] ALBUTEROL 90MCG/ACTUA T (CFC-F) INHL,ORAL,8 .5GM DOSE COUNTER INHALE 2 PUFFS BY INHALATI ON FOUR TIMES A DAY NEEDED FOR SHORTNES S OF BREATH INHALA TION DISCONT INUED 08/08/2023 [id number] 3 AFRICA CHAUHAN 2022 2 [facility] APIXABAN 5MG TAB TAKE ONE TABLET BY MOUTH EVERY 12 HOURS TO PREVENT BLOOD CLOTS AND STROKE (ELIQUIS ) ORALLY ACTIVE 05/29/2024 [id number] MARIANO GARCIA 2023 180 [facility] APIXABAN 5MG TAB TAKE ONE TABLET BY MOUTH EVERY 12 HOURS TO PREVENT BLOOD CLOTS AND STROKE (ELIQUIS ) ORALLY DISCONT INUED 05/09/2023 [id number] 3 MARIANO GARCIA 2022 180 [facility] APIXABAN 5MG TAB TAKE ONE TABLET BY MOUTH EVERY 12 HOURS TAKE DIRECTED BY [facility], [phone]. (TRAVELI NG VET-CONT INUATION OF THERAPY) ORAL 06/08/2022 [id number] CÉSAR GALLEGOS 2022 28 [facility] L CHOLECALCIF JONNA 25MCG (1,000UNIT) TAB TAKE FIVE TABLETS BY MOUTH QOD ORALLY ACTIVE AFRICA CHAUHAN 2016 [facility] FLUOCINONID E 0.1% CREAM,TOP APPLY A THIN LAYER TOPICALL Y TWICE A DAY NEEDED FOR RASH TOPICA LLY ACTIVE 12/13/2023 [id number] 3 AFRICA CHAUHAN 2022 60 [facility] FLUTICASONE 250MCG/SALM ETEROL 50MCG INHL,ORAL,D ISKUS,60 INHALE 1 PUFF BY INHALATI ON TWICE A DAY FOR COPD INHALA TION ACTIVE 07/17/2024 [id number] 4 AFRICA CHAUHAN 2023 3 [facility] FLUTICASONE 250MCG/SALM ETEROL 50MCG INHL,ORAL,D ISKUS,60 INHALE 1 PUFF BY INHALATI ON TWICE A DAY FOR COPD THIS REPLACES YOUR MOMETASO NE INHALA TION DISCONT INUED 08/08/2023 [id number] 4 AFRICA CHAUHAN 2022 3 [facility] FUROSEMIDE 20MG TAB TAKE ONE TABLET BY MOUTH THREE TIMES A WEEK FOR HEART FAILURE ORALLY ACTIVE 02/25/2024 [id number] 3 Hong DONAHUE 2022 39 [facility] FUROSEMIDE 20MG TAB TAKE ONE TABLET BY MOUTH EVERY OTHER DAY FOR HEART FAILURE ORALLY DISCONT INUED (EDIT) 08/13/2023 [id number] 3 AFRICA CHAUHAN [place] 2022 45 [facility] FUROSEMIDE 20MG TAB TAKE ONE TABLET BY MOUTH EVERY MORNING FOR HEART FAILURE ORALLY DISCONT INUED 08/08/2023 [id number] 3 AFRICA CHAUHAN [place] 2022 90 [facility] FUROSEMIDE 20MG TAB TAKE ONE TABLET BY MOUTH EVERY MORNING FOR HEART FAILURE ORALLY DISCONT INUED 11/16/2022 [id number] 3 CHAUHAN, AFRICA CHARLTON 2021 90 [facility] HYDROCHLORO THIAZIDE 12.5MG TAB TAKE ONE TABLET BY MOUTH EVERY DAY FOR BLOOD PRESSURE ORALLY DISCONT INUED 08/08/2023 [id number] 3 CHAUHAN, AFRICA CHARLTON 2022 90 [facility] METOPROLOL SUCCINATE 100MG TAB,SA TAKE ONE AND ONE-HALF TABLETS BY MOUTH EVERY DAY ORALLY DISCONT INUED 11/16/2022 [id number] 3 TIEN AFRICA CHARLTON 2021 135 [facility] METOPROLOL SUCCINATE 50MG TAB,SA TAKE THREE TABLETS BY MOUTH EVERY DAY FOR BLOOD PRESSURE ORALLY DISCONT INUED 08/08/2023 [id number] 3 CHAUHAN, AFRICA CHARLTON 2022 270 [facility] METOPROLOL TARTRATE 100MG TAB TAKE ONE TABLET BY MOUTH TWICE A DAY FOR BLOOD PRESSURE ORALLY ACTIVE 12/13/2023 [id number] 4 TIEN AFRICA CHARLTON 2022 180 [facility] MOMETASONE FUROATE 220MCG/INHL INHL,ORAL,6 0 INHALE 1 PUFF BY MOUTH TWICE A DAY TO PREVENT TROUBLE BREATHIN G TWIST COVER ON AND OFF TO LOAD NEXT DOSERI NSE MOUTH AFTER USING * DO NOT WASH INHALER ORALLY DISCONT INUED 11/16/2022 [id number] 3 CHAUHAN, AFRICA LATESHA 2021 3 [facility] NIFEDIPINE (EQV-CC) 60MG TAB,SA TAKE ONE TABLET BY MOUTH EVERY DAY FOR BLOOD PRESSURE ORALLY DISCONT INUED BY PROVIDE R 08/08/2023 [id number] 3 AFRICA CHAUHAN 2022 90 [facility] NIFEDIPINE (EQV-CC) 60MG TAB,SA TAKE ONE TABLET BY MOUTH EVERY DAY FOR BLOOD PRESSURE ORALLY DISCONT INUED 09/11/2022 [id number] 3 AFRICA CHAUHAN 2022 90 [facility] NIFEDIPINE (EQV-CC) 60MG TAB,SA TAKE ONE TABLET BY MOUTH EVERY DAY FOR BLOOD PRESSURE ORALLY DISCONT INUED 08/28/2022 [id number] 3 AFRICA CHAUHAN 2022 90 [facility] NIFEDIPINE (EQV-CC) 90MG TAB,SA TAKE ONE TABLET BY MOUTH EVERY DAY FOR BLOOD PRESSURE ORALLY SUSPEND ED 07/17/2024 [id number] 4 AFRICA CHAUHAN 2023 90 [facility] NIFEDIPINE (EQV-CC) 90MG TAB,SA TAKE ONE TABLET BY MOUTH EVERY DAY FOR BLOOD PRESSURE INCREASE D DOSE PER CO-MANAG ED CARE INCREASE D DOSE PER CO-MANAG ED CARE ORALLY DISCONT INUED 12/13/2023 [id number] 4 AFRICA CHAUHAN 2022 90 [facility] POTASSIUM CHLORIDE 10MEQ TAB,SA TAKE ONE TABLET BY MOUTH THREE TIMES A WEEK FOR POTASSIU M SUPPLEME NT TAKE WITH FUROSEMI DE ORALLY ACTIVE 02/25/2024 [id number] 3 Hong DONAHUE UCESAR A 2022 39 [facility] POTASSIUM CHLORIDE 10MEQ TAB,SA TAKE ONE TABLET BY MOUTH EVERY OTHER DAY FOR POTASSIU M SUPPLEME NT ORALLY DISCONT INUED (EDIT) 08/13/2023 [id number] 3 AFRICA CHAUHAN 2022 45 [facility] POTASSIUM CHLORIDE 10MEQ TAB,SA TAKE ONE TABLET BY MOUTH EVERY DAY FOR CONGESTI VE HEART FAILURE ORALLY DISCONT INUED 08/08/2023 [id number] 3 AFRICA CHAUHAN 2022 90 [facility] POTASSIUM CHLORIDE 10MEQ TAB,SA TAKE ONE TABLET BY MOUTH EVERY DAY FOR CONGESTI VE HEART FAILURE ORALLY DISCONT INUED 11/16/2022 [id number] 3 AFRICA CHAUHAN 2021 90 [facility] ROSUVASTATI N CA 20MG TAB TAKE ONE TABLET BY MOUTH AT BEDTIME FOR CORONARY ARTERY DISEASE ORALLY HOLD 07/17/2024 [id number] AFRICA CHAUHAN 2023 90 [facility] ROSUVASTATI N CA 20MG TAB TAKE ONE TABLET BY MOUTH AT BEDTIME FOR CORONARY ARTERY DISEASE ORALLY DISCONT INUED 08/08/2023 [id number] 4 AFRICA CHAUHAN 2022 90 [facility] ROSUVASTATI N CA 40MG TAB TAKE ONE-HALF TABLET BY MOUTH AT BEDTIME FOR CORONARY ARTERY DISEASE ORALLY DISCONT INUED 11/15/2022 [id number] 3 AFRICA CHAUHAN 2021 45 [facility] TAMSULOSIN HCL 0.4MG CAP TAKE ONE CAPSULE BY MOUTH EVERY EVENING FOR PROSTATE ORALLY ACTIVE 07/17/2024 [id number] 4 AFRICA CHAUHAN 2023 30 [facility] Allergies, Adverse Reactions, Alerts Combined list of allergies from Department of Defense and Veterans Affairs facilities. It does not include entries that were removed or entered in error. Substance Category Reaction Severity Reaction type Status Date Reported Comments Source LISINOPRIL Propensity to adverse reactions to drug (finding) Cough active 0 [facility] Immunizations Combined list of available immunizations from the Department of Defense and Veterans Affairs facilities. Immunization Series Date Given Administered By Site Reaction Lot Number CVX Code Drug Car Dispatcher Status Comments Source COVID-19 (CrowdMed), MRNA, LNP-S, BIVALENT, PF, 30 MCG/0.3 ML DOSE 2022 300 complet ed [facility] COVID-19 (PFIZER), MRNA, LNP-S, PF, 30 MCG/0.3 ML DOSE, JAMES-SUCROSE (AGES 12+ YEARS) 2021 217 complet ed [facility] COVID-19 (PFIZER), MRNA, LNP-S, PF, 30 MCG/0.3 ML DOSE 2020 208 complet ed [facility] ZOSTER RECOMBINANT 2 2020 187 complet [facility] INFLUENZA VACCINE, QUADRIVALENT, ADJUVANTED 2020 205 complet ed [facility] INFLUENZA, UNSPECIFIED FORMULATION 2020 88 complet ed [facility] ZOSTER RECOMBINANT 1 2020 187 complet [facility] COVID-19 (PFIZER), MRNA, LNP-S, PF, 30 MCG/0.3 ML DOSE 2 2020 208 complet ed [facility] COVID-19 (PFIZER), MRNA, LNP-S, PF, 30 MCG/0.3 ML DOSE 1 2020 208 complet ed [facility] INFLUENZA VACCINE, QUADRIVALENT, ADJUVANTED 2019 205 complet ed [facility] INFLUENZA, TRIVALENT, ADJUVANTED 2018 168 complet ed [facility] INFLUENZA, SEASONAL, INJECTABLE 2018 141 complet ed [facility] INFLUENZA, SEASONAL, INJECTABLE 2017 141 complet ed [facility] INFLUENZA, TRIVALENT, ADJUVANTED 2017 168 complet ed [facility] INFLUENZA, HIGH DOSE SEASONAL 2016 135 complet ed [facility] PNEUMOCOCCAL POLYSACCHARID E PPV23 2016 33 complet ed [employer] , [id number], 06/03/18 [facility] TD (ADULT), 2 LF TETANUS TOXOID, PRESERVATIVE FREE, ADSORBED 2016 09 complet ed [employer] [id number], 12/19/18 [facility] INFLUENZA, HIGH DOSE SEASONAL 2016 135 complet ed [facility] PNEUMOCOCCAL POLYSACCHARID E PPV23 2016 33 complet ed [facility] INFLUENZA, HIGH DOSE SEASONAL 2015 135 complet ed [facility] PNEUMOCOCCAL CONJUGATE PCV 13 2015 133 complet ed [employer] [facility] PNEUMOCOCCAL CONJUGATE PCV 13 2014 133 complet ed [facility] INFLUENZA, UNSPECIFIED FORMULATION 2013 88 complet ed [facility] INFLUENZA, UNSPECIFIED FORMULATION 2013 88 complet ed [facility] INFLUENZA, UNSPECIFIED FORMULATION 2011 88 complet ed [facility] INFLUENZA, UNSPECIFIED FORMULATION 2010 88 complet ed [facility] PNEUMOCOCCAL, UNSPECIFIED FORMULATION 2009 109 complet ed [employer],093 02, 011 [facility] TDAP 2009 115 complet ed [facility] ZOSTER LIVE 2008 121 complet ed [facility] TDAP 2007 115 complet ed private [facility] ZOSTER LIVE 2006 121 complet ed [facility] Results Combined list of recent chemistry, hematology [...] Jul 17, 2023 04:23 PM Reporting Lab: [facility] [address] Performing Lab: [facility] [address] [facility] URINALYS IS SPECIFIC GRAVITY OF URINE 1.006 1.003 - 1.035 07/16 Specimen Type: URINE No comment entered. Ordering Provider: TERRENCE CHAUHAN Report Released Date/Time: Jul 17, 2023 04:23 PM Reporting Lab: [facility] [address] Performing Lab: [facility] [address] [facility] URINALYS IS BILIRUBIN. TOTAL [PRESENCE] IN URINE BY TEST STRIP NEGATIVE 07/16 Specimen Type: URINE No comment entered. Ordering Provider: TERRENCE CHAUHAN Report Released Date/Time: Jul 17, 2023 04:23 PM Reporting Lab: [facility] [address] Performing Lab: [facility] [address] [place] [facility] URINALYS IS KETONES [MASS/VOLU ME] IN URINE BY TEST STRIP NEGATIVE 07/16 Specimen Type: URINE No comment entered. Ordering Provider: TERRENCE CHAUHAN Report Released Date/Time: Jul 17, 2023 04:23 PM Reporting Lab: [facility] [address] Performing Lab: [facility] [address] [place] [address] [facility] URINALYS IS GLUCOSE [MASS/VOLU ME] IN URINE BY TEST STRIP NEGATIVE 07/16 Specimen Type: URINE No comment entered. Ordering Provider: TERRENCE CHAUHAN Report Released Date/Time: Jul 17, 2023 04:23 PM Reporting Lab: [facility] [address] Performing Lab: [facility] [address] [place] [address] [facility] URINALYS IS PROTEIN [MASS/VOLU ME] IN URINE BY TEST STRIP NEGATIVE 07/16 Specimen Type: URINE No comment entered. Ordering Provider: TERRENCE CHAUHAN Report Released Date/Time: Jul 17, 2023 04:23 PM Reporting Lab: [facility] [address] Performing Lab: [facility] [phone] [place] [address] [facility] URINALYS IS PH OF URINE BY TEST STRIP 7.0 5.0 - 8.0 07/16 Specimen Type: URINE No comment entered. Ordering Provider: TERRENCE CHAUHAN Report Released Date/Time: Jul 17, 2023 04:23 PM Reporting Lab: [facility] [address] Performing Lab: [facility] [address] [place] [facility] URINALYS IS LEUKOCYTES [#/AREA] IN URINE SEDIMENT BY MICROSCOPY HIGH POWER FIELD <1 0 - 7 07/16 Specimen Type: URINE No comment entered. Ordering Provider: TERRENCE CHAUHAN Report Released Date/Time: Jul 17, 2023 04:23 PM Reporting Lab: [facility] [phone] Performing Lab: [facility] [address] [place] [address] [facility] URINALYS IS BACTERIA [PRESENCE] IN URINE SEDIMENT BY LIGHT MICROSCOPY NONE SEEN 07/16 Specimen Type: URINE No comment entered. Ordering Provider: TERRENCE CHAUHAN Report Released Date/Time: Jul 17, 2023 04:23 PM Reporting Lab: [facility] [phone] Performing Lab: [facility] [address] [place] [facility] URINALYS IS ERYTHROCYT ES [#/AREA] IN URINE SEDIMENT BY MICROSCOPY HIGH POWER FIELD <1 0 - 3 07/16 Specimen Type: URINE No comment entered. Ordering Provider: TERRENCE CHAUHAN Report Released Date/Time: Jul 17, 2023 04:23 PM Reporting Lab: [facility] [address] Performing Lab: [facility] [address] [place] [facility] URINALYS IS APPEARANCE OF URINE CLEAR 07/16 Specimen Type: URINE No comment entered. Ordering Provider: TERRENCE CHAUHAN Report Released Date/Time: Jul 17, 2023 04:23 PM Reporting Lab: [facility] [address] Performing Lab: [facility] [address] [place] [address] [facility] URINALYS IS EPITHELIAL CELLS.SQUA MOUS [#/AREA] IN URINE SEDIMENT BY MICROSCOPY HIGH POWER FIELD NONE SEEN 07/16 Specimen Type: URINE No comment entered. Ordering Provider: TERRENCE CHAUHAN Report Released Date/Time: Jul 17, 2023 04:23 PM Reporting Lab: [facility] [address] Performing Lab: [facility] [address] [place] [facility] URINALYS IS HEMOGLOBIN [PRESENCE] IN URINE BY TEST STRIP NEGATIVE 07/16 Specimen Type: URINE No comment entered. Ordering Provider: TERRENCE CHAUHAN Report Released Date/Time: Jul 17, 2023 04:23 PM Reporting Lab: [facility] [phone] Performing Lab: [facility] [address] [place] [facility] URINALYS IS NITRITE [PRESENCE] IN URINE BY TEST STRIP NEGATIVE 07/16 Specimen Type: URINE No comment entered. Ordering Provider: TERRENCE CHAUHAN Report Released Date/Time: Jul 17, 2023 04:23 PM Reporting Lab: [facility] [address] Performing Lab: [facility] [address] [place] [address] [facility] URINALYS IS LEUKOCYTE ESTERASE [PRESENCE] IN URINE BY TEST STRIP NEGATIVE 07/16 Specimen Type: URINE No comment entered. Ordering Provider: TERRENCE CHAUHAN Report Released Date/Time: Jul 17, 2023 04:23 PM Reporting Lab: [facility] [address] Performing Lab: [facility] [address] [place] [facility] HEMOGLOB IN A1C HEMOGLOBIN A1C/HEMOGL OBIN.TOTAL IN [...] August 07, 2022 02:21 PM Reporting Lab: [facility] [address] Performing Lab: [facility] [address] [place] [address] [facility] BASIC METABOLI C PANEL+MG CREATININE [MASS/VOLU ME] IN SERUM OR PLASMA 1.3 0.7 - 1.2 07/16 H Specimen Type: PLASMA No comment entered. Ordering Provider: TERRENCE CHAUHAN Report Released Date/Time: August 07, 2022 02:21 PM Reporting Lab: [facility] [address] Performing Lab: [facility] [address] [place] [address] [facility] BASIC METABOLI C PANEL+MG UREA NITROGEN [MASS/VOLU ME] IN SERUM OR PLASMA 15 8 - 26 07/16 Specimen Type: PLASMA No comment entered. Ordering Provider: TERRENEC CHAUHAN Report Released Date/Time: August 07, 2022 02:21 PM Reporting Lab: [facility] [address] Performing Lab: [facility] [address] [place] [facility] BASIC METABOLI C PANEL+MG GLUCOSE [MASS/VOLU ME] IN SERUM OR PLASMA 84 70 - 100 07/16 Specimen Type: PLASMA No comment entered. Ordering Provider: TERRENCE CHAUHAN Report Released Date/Time: August 07, 2022 02:21 PM Reporting Lab: [facility] [phone] Performing Lab: [facility] [address] [place] [facility] BASIC METABOLI C PANEL+MG SODIUM [MOLES/VOL UME] IN SERUM OR PLASMA 137 136 - 145 07/16 Specimen Type: PLASMA No comment entered. Ordering Provider: TERRENCE CHAUHAN Report Released Date/Time: August 07, 2022 02:21 PM Reporting Lab: [facility] [address] Performing Lab: [facility] [address] [place] [facility] BASIC METABOLI C PANEL+MG POTASSIUM [MOLES/VOL UME] IN SERUM OR PLASMA 4.6 3.5 - 5.1 07/16 Specimen Type: PLASMA No comment entered. Ordering Provider: TERRENCE CHAUHAN Report Released Date/Time: August 07, 2022 02:21 PM Reporting Lab: [facility] [address] Performing Lab: [facility] [address] [place] [address] [facility] BASIC METABOLI C PANEL+MG CHLORIDE [MOLES/VOL UME] IN SERUM OR PLASMA 105 98 - 107 07/16 Specimen Type: PLASMA No comment entered. Ordering Provider: TERRENCE CHAUHAN Report Released Date/Time: August 07, 2022 02:21 PM Reporting Lab: [facility] [address] Performing Lab: [facility] [address] [place] [facility] BASIC METABOLI C PANEL+MG CARBON DIOXIDE, TOTAL [MOLES/VOL UME] IN SERUM OR PLASMA 24 22 - 29 07/16 Specimen Type: PLASMA No comment entered. Ordering Provider: TERRENCE CHAUHAN Report Released Date/Time: August 07, 2022 02:21 PM Reporting Lab: [facility] [address] Performing Lab: [facility] [address] [place] [facility] BASIC METABOLI C PANEL+MG CALCIUM [MASS/VOLU ME] IN SERUM OR PLASMA 8.9 8.4 - 10.2 07/16 Specimen Type: PLASMA No comment entered. Ordering Provider: ETRRENCE CHAUHAN Report Released Date/Time: August 07, 2022 02:21 PM Reporting Lab: [facility] [address] Performing Lab: [facility] [address] [place] [facility] BASIC METABOLI C PANEL+MG MAGNESIUM [MASS/VOLU ME] IN SERUM OR PLASMA 2.1 1.6 - 2.6 07/16 Specimen Type: PLASMA No comment entered. Ordering Provider: TERRENCE CHAUHAN Report Released Date/Time: August 07, 2022 02:21 PM Reporting Lab: [facility] [address] Performing Lab: [facility] [address] [place] [address] [facility] BASIC METABOLI C PANEL+MG ANION GAP IN SERUM OR PLASMA 8 5 - 15 07/16 Specimen Type: PLASMA No comment entered. Ordering Provider: TERRENCE CHAUHAN Report Released Date/Time: August 07, 2022 02:21 PM Reporting Lab: [facility] [address] Performing Lab: [facility] [address] [place] [address] [facility] BASIC METABOLI C PANEL+MG GLOMERULAR FILTRATION RATE/1.73 SQ M.PREDICTE D [VOLUME RATE/AREA] IN SERUM, PLASMA OR BLOOD BY CREATININE -BASED FORMULA (CKD-EPI 2020) 56 60 07/16 L Specimen Type: PLASMA No comment entered. Ordering Provider: TERRENCE CHAUHAN Report Released Date/Time: August 07, 2022 02:21 PM Reporting Lab: [facility] [address] Performing Lab: [facility] [address] [place] [facility] CBC LEUKOCYTES [#/VOLUME] IN BLOOD BY AUTOMATED COUNT 8.72 4.0 - 11.0 07/16 Specimen Type: BLOOD No comment entered. Ordering Provider: TERRENCE CHAUHAN Report Released Date/Time: August 07, 2022 02:21 PM Reporting Lab: [facility] [address] Performing Lab: [facility] [address] [place] [address] [facility] CBC ERYTHROCYT ES [#/VOLUME] IN BLOOD BY AUTOMATED COUNT 4.11 4.6 - 6.2 07/16 L Specimen Type: BLOOD No comment entered. Ordering Provider: TERRENCE CHAUHAN Report Released Date/Time: August 07, 2022 02:21 PM Reporting Lab: [facility] [address] Performing Lab: [facility] [address] [place] [facility] CBC HEMOGLOBIN [MASS/VOLU ME] IN BLOOD 13.4 13.5 - 17.9 07/16 L Specimen Type: BLOOD No comment entered. Ordering Provider: TERRENCE CHAUHAN Report Released Date/Time: August 07, 2022 02:21 PM Reporting Lab: [facility] [address] Performing Lab: [facility] [address] [place] [facility] CBC HEMATOCRIT [VOLUME FRACTION] OF BLOOD BY AUTOMATED COUNT 39.7 41 - 54 07/16 L Specimen Type: BLOOD No comment entered. Ordering Provider: TERRENCE CHAUHAN Report Released Date/Time: August 07, 2022 02:21 PM Reporting Lab: [facility] [address] Performing Lab: [facility] [address] [place] [facility] CBC MCV [ENTITIC VOLUME] BY AUTOMATED COUNT 96.6 80 - 100 07/16 Specimen Type: BLOOD No comment entered. Ordering Provider: TERRENCE CHAUHAN Report Released Date/Time: August 07, 2022 02:21 PM Reporting Lab: [facility] [address] Performing Lab: [facility] [address] [place] [facility] CBC MCH [ENTITIC MASS] BY AUTOMATED COUNT 32.6 27 - 33 07/16 Specimen Type: BLOOD No comment entered. Ordering Provider: TERRENCE CHAUHAN Report Released Date/Time: August 07, 2022 02:21 PM Reporting Lab: [facility] [address] Performing Lab: [facility] [address] [place] [facility] CBC MCHC [MASS/VOLU ME] BY AUTOMATED COUNT 33.8 32.0 - 37.5 07/16 Specimen Type: BLOOD No comment entered. Ordering Provider: TERRENCE CHAUHAN Report Released Date/Time: August 07, 2022 02:21 PM Reporting Lab: [facility] [phone] Performing Lab: [facility] [phone] [place] [facility] CBC PLATELETS [#/VOLUME] IN BLOOD BY AUTOMATED COUNT 159 150 - 400 07/16 Specimen Type: BLOOD No comment entered. Ordering Provider: TERRENCE CHAUHAN Report Released Date/Time: August 07, 2022 02:21 PM Reporting Lab: [facility] [phone] Performing Lab: [facility] [phone] [place] [facility] CBC PLATELET MEAN VOLUME [ENTITIC VOLUME] IN BLOOD BY AUTOMATED COUNT 9.6 7.4 - 10.4 07/16 Specimen Type: BLOOD No comment entered. Ordering Provider: TERRENCE CHAUHAN Report Released Date/Time: August 07, 2022 02:21 PM Reporting Lab: [facility] [phone] Performing Lab: [facility] [phone] [place] [facility] CBC ERYTHROCYT E DISTRIBUTI ON WIDTH [RATIO] BY AUTOMATED COUNT 14.1 11.5 - 14.5 07/16 Specimen Type: BLOOD No comment entered. Ordering Provider: TERRENCE CHAUHAN Report Released Date/Time: August 07, 2022 02:21 PM Reporting Lab: [facility] [phone] Performing Lab: [facility] [phone] [place] [address] [facility] LIVER FUNCTION TESTS BILIRUBIN. TOTAL [MASS/VOLU ME] IN SERUM OR PLASMA 0.8 0.2 - 1.2 07/16 Specimen Type: PLASMA No comment entered. Ordering Provider: TERRENCE CHAUHAN Report Released Date/Time: August 07, 2022 02:21 PM Reporting Lab: [facility] [phone] Performing Lab: [facility] [id number] [place] [facility] LIVER FUNCTION TESTS ALKALINE PHOSPHATAS E [ENZYMATIC ACTIVITY/V OLUME] IN SERUM OR PLASMA 52 40 - 150 07/16 Specimen Type: PLASMA No comment entered. Ordering Provider: TERRENCE CHAUHAN Report Released Date/Time: August 07, 2022 02:21 PM Reporting Lab: [facility] [address] Performing Lab: [facility] [address] [place] [address] [facility] LIVER FUNCTION TESTS ALANINE AMINOTRANS FERASE [ENZYMATIC ACTIVITY/V OLUME] IN SERUM OR PLASMA 20 <55 - 55 07/16 Specimen Type: PLASMA No comment entered. Ordering Provider: TERRENCE CHAUHAN Report Released Date/Time: August 07, 2022 02:21 PM Reporting Lab: [facility] [address] Performing Lab: [facility] [address] [place] [facility] LIVER FUNCTION TESTS ASPARTATE AMINOTRANS FERASE [ENZYMATIC ACTIVITY/V OLUME] IN SERUM OR PLASMA 19 <34 - 34 07/16 Specimen Type: PLASMA No comment entered. Ordering Provider: TERRENCE CHAUHAN Report Released Date/Time: August 07, 2022 02:21 PM Reporting Lab: [facility] [address] Performing Lab: [facility] [address] [place] [facility] LIVER FUNCTION TESTS GAMMA GLUTAMYL TRANSFERAS E [ENZYMATIC ACTIVITY/V OLUME] IN SERUM OR PLASMA 38 <64 - 64 07/16 Specimen Type: PLASMA No comment entered. Ordering Provider: TERRENCE CHAUHAN Report Released Date/Time: August 07, 2022 02:21 PM Reporting Lab: [facility] [address] Performing Lab: [facility] [address] [place] [facility] PSA PROSTATE SPECIFIC AG [MASS/VOLU ME] IN SERUM OR PLASMA 3.84 <4.00 - 4.00 07/16 Specimen Type: SERUM No comment entered. Ordering Provider: TERRENCE CHAUHAN Report Released Date/Time: August 07, 2022 02:21 PM Reporting Lab: [facility] [address] Performing Lab: [place] [address] [place] [address] [facility] CREATINI NE(INCLU SATHYA EGFR) CREATININE [MASS/VOLU ME] IN SERUM OR PLASMA 1.2 0.7 - 1.2 04/16 Specimen Type: PLASMA No comment entered. Ordering Provider: HUYEN HYLTON Report Released Date/Time: Mar 07, 2023 02:00 PM Reporting Lab: [facility] [address] Performing Lab: [facility] [address] [place] [address] [facility] CREATINI NE(INCLU SATHYA EGFR) GLOMERULAR FILTRATION RATE/1.73 SQ M.PREDICTE D [VOLUME RATE/AREA] IN SERUM, PLASMA OR BLOOD BY CREATININE -BASED FORMULA (CKD-EPI 2020) 62 60 04/16 Specimen Type: PLASMA No comment entered. Ordering Provider: HUYEN HYLTON Report Released Date/Time: Mar 07, 2023 02:00 PM Reporting Lab: [facility] [address] Performing Lab: [place] [id number] [facility] CBC LEUKOCYTES [#/VOLUME] IN BLOOD BY AUTOMATED COUNT 8.06 4.0 - 11.0 04/16 Specimen Type: BLOOD No comment entered. Ordering Provider: HUYEN HYLTON Report Released Date/Time: Mar 07, 2023 02:00 PM Reporting Lab: [place] [address] Performing Lab: [facility] [address] [place] [address] [facility] CBC ERYTHROCYT ES [#/VOLUME] IN BLOOD BY AUTOMATED COUNT 4.03 4.6 - 6.2 04/16 L Specimen Type: BLOOD No comment entered. Ordering Provider: HUYEN HYLTON Report Released Date/Time: Mar 07, 2023 02:00 PM Reporting Lab: [facility] [address] Performing Lab: [facility] [address] [place] [facility] CBC HEMOGLOBIN [MASS/VOLU ME] IN BLOOD 13.1 13.5 - 17.9 04/16 L Specimen Type: BLOOD No comment entered. Ordering Provider: HUYEN HYLTON Report Released Date/Time: Mar 07, 2023 02:00 PM Reporting Lab: [place] [address] Performing Lab: [place] [id number] [place] [facility] CBC HEMATOCRIT [VOLUME FRACTION] OF BLOOD BY AUTOMATED COUNT 38.9 41 - 54 04/16 L Specimen Type: BLOOD No comment entered. Ordering Provider: HUYEN HYLTON Report Released Date/Time: Mar 07, 2023 02:00 PM Reporting Lab: [facility] [address] Performing Lab: [facility] [address] [place] [address] [facility] CBC MCV [ENTITIC VOLUME] BY AUTOMATED COUNT 96.5 80 - 100 04/16 Specimen Type: BLOOD No comment entered. Ordering Provider: HUYEN HYLTON Report Released Date/Time: Mar 07, 2023 02:00 PM Reporting Lab: [facility] [address] Performing Lab: [facility] [address] [place] [facility] CBC MCH [ENTITIC MASS] BY AUTOMATED COUNT 32.5 27 - 33 04/16 Specimen Type: BLOOD No comment entered. Ordering Provider: HUYEN HYLTON Report Released Date/Time: Mar 07, 2023 02:00 PM Reporting Lab: [facility] [address] Performing Lab: [facility] [address] [place] [facility] CBC MCHC [MASS/VOLU ME] BY AUTOMATED COUNT 33.7 32.0 - 37.5 04/16 Specimen Type: BLOOD No comment entered. Ordering Provider: HUYEN HYLTON Report Released Date/Time: Mar 07, 2023 02:00 PM Reporting Lab: [facility] [address] Performing Lab: [place] [address] [place] [facility] CBC PLATELETS [#/VOLUME] IN BLOOD BY AUTOMATED COUNT 157 150 - 400 04/16 Specimen Type: BLOOD No comment entered. Ordering Provider: HUYEN HYLTON Report Released Date/Time: Mar 07, 2023 02:00 PM Reporting Lab: [facility] [address] Performing Lab: [facility] [address] [place] [facility] CBC PLATELET MEAN VOLUME [ENTITIC VOLUME] IN BLOOD BY AUTOMATED COUNT 9.7 7.4 - 10.4 04/16 Specimen Type: BLOOD No comment entered. Ordering Provider: HUYEN HYLTON Report Released Date/Time: Mar 07, 2023 02:00 PM Reporting Lab: [facility] [address] Performing Lab: [facility] [address] [place] [address] [facility] CBC ERYTHROCYT E DISTRIBUTI ON WIDTH [RATIO] BY AUTOMATED COUNT 14.5 11.5 - 14.5 04/16 Specimen Type: BLOOD No comment entered. Ordering Provider: HUYEN HYLTON Report Released Date/Time: Mar 07, 2023 02:00 PM Reporting Lab: [facility] [address] Performing Lab: [facility] [address] [place] [facility] AST/SGOT ASPARTATE AMINOTRANS FERASE [ENZYMATIC ACTIVITY/V OLUME] IN SERUM OR PLASMA 22 <34 - 34 04/16 Specimen Type: PLASMA No comment entered. Ordering Provider: HUYEN HYLTON Report Released Date/Time: Mar 07, 2023 02:00 PM Reporting Lab: [facility] [address] Performing Lab: [facility] [address] [place] [facility] ALT/SGPT ALANINE AMINOTRANS FERASE [ENZYMATIC ACTIVITY/V OLUME] IN SERUM OR PLASMA 19 <55 - 55 04/16 Specimen Type: PLASMA No comment entered. Ordering Provider: HUYEN HYLTON Report Released Date/Time: Mar 07, 2023 02:00 PM Reporting Lab: [facility] [address] Performing Lab: [facility] [address] [place] [facility] Vital Signs Combined list of inpatient and [...] DC Date Status Disposition Source [place] [facility] Outpatient Encounter [id number] 02/13 [facility] [place] [facility] Outpatient Encounter [id number] OLESYA ROGERS 02/14 [facility] [place] [facility] Outpatient Encounter [id number] 02/14 [facility] [place] [facility] Outpatient Encounter [id number] 04/24 [facility] EMERGENCY DEPT VISIT [facility] [id number] Diagnos is: ICD-10- CM Z76.0 Encount er for issue of repeat prescri ption<b r/> AICHA GALLEGOS 05/09 [facility] HOSPITA L [facility] Outpatient Encounter [id number] 05/09 [facility] [place] [facility] Outpatient Encounter [id number] 06/12 [facility] [place] [facility] Outpatient Encounter [id number] 07/[address] [place] [facility] [place] [facility] OFFICE O/P EST MOD 30-39 MIN [id number] Diagnos is: ICD-10- CM Z00.01 Encount er for general adult medical exam w abnorma l finding s
DANETTE LIN LY E 08/[address] [place] [facility] [facility] [place] [facility] Outpatient Encounter [id number] 08/[address] [place] [facility] [place] [facility] Outpatient Encounter [id number] OLESYA ROGERS 08/[address] [place] [facility] [place] [facility] Outpatient Encounter [id number] OLESYA ROGERS M 08/[address] [place] [facility] [place] [facility] Outpatient Encounter [id number] Ana CHAUHAN 09/12 [place] [place] [facility] Outpatient Encounter [id number] 11/06 [facility] [place] [facility] Outpatient Encounter [id number] 12/[address] [place] [facility] [place] [facility] Outpatient Encounter [id number] 12/[address] [place] [facility] [place] [facility] Outpatient Encounter [id number] 01/17 [place] [facility] [place] [facility] Outpatient Encounter [id number] 02/[address] [place] [facility] [place] [facility] Outpatient Encounter [id number] 02/[address] [place] [facility] [place] [facility] Outpatient Encounter [id number] 03/07 [place] [facility] [place] [facility] QNHP OL DIG ASSMT&MGMT 5-10 [id number] Diagnos is: ICD-10- CM Z79.01 custodial (curren t) use of anticoa gulants
ELLEN GARCIA 05/29 [facility] OFFICE O/P EST MOD 30 MIN [id number] Diagnos is: ICD-10- CM Z00.01 Encount er for general adult medical exam w abnorma l finding s
Ana CHAUHAN 07/16 [facility] Outpatient Encounter [id number] 07/17 [facility] Social History Combined list of available smoking, tobacco, and other social history from Department of Defense and Veterans Affairs facilities. Social History Type Response Date Comment Sour e Tobacco smoking status NHIS NV-TOBACCO FORMER USER 07/17/2023 [facility] History of tobacco use NV-TOBACCO QUIT 1 TO < 5 YRS 07/17/2023 [facility] History of tobacco use NV-TOBACCO FORMER USER 08/07/2022 [facility] History of tobacco use NV-TOBACCO FORMER USER 10/16/2020 [facility] History of tobacco use NV-TOBACCO USE CO UNSEL NO 03/29/2019 [facility] History of tobacco use NV-TOBACCO USE WI 30 MIN OF WAKEUP 02/17/2018 [facility] History of tobacco use CURRENT TOBACCO USER 02/12/2017 [facility] History of tobacco use CURRENT TOBACCO USER 04/25/2015 [facility] History of tobacco use CURRENT TOBACCO USER 04/21/2014 [facility] History of tobacco use CURRENT TOBACCO USER 04/20/2013 [facility] History of tobacco use CURRENT TOBACCO USER 03/20/2012 [facility] History of tobacco use CURRENT TOBACCO USER 02/06/2011 [facility] History of tobacco use CURRENT TOBACCO USER 01/02/2010 [facility]
--- OUTSIDE RECORDS SUMMARY | 2023-08-07 11:41 | XMS_ITS | Data Portability ---
Author Name Unknown Address [address] [place] [address] Phone [phone] Organization [place] [facility], [employer] Address [address] [place] [address] Assessment Encounter Date Assessment Date Assessment LastModified [...] user Active 2015 Tobacco user; Original Code: 888079840 Origi nal Codesystem: SNOMED CT Classificati on: Medical Confirm ation Status: Probable Not Available [facility] Onychomycosis of toenails Active 2015 Onychomycosis of toenails; Original Code: 9090778974 Orig inal Codesystem: SNOMED CT Classificati on: Medical Confirm ation Status: Confirmed Not Available [facility] 3 09:10:17 Heart disease Active 2021 Heart disease; Original Code: 41602033 Origin al Codesystem: SNOMED CT Classificati on: Medical Confirm ation Status: Confirmed Not Available [facility] 3 09:10:17 Corns and callus Active 2015 Corns and callus; Original Code: 981214721 Origi nal Codesystem: SNOMED CT Classificati on: Medical Confirm ation Status: Confirmed Not Available [facility] 3 09:10:17 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; Original Code: 2615111226 Orig inal Codesystem: SNOMED CT Classificati on: Medical Confirm ation Status: Confirmed Not Available [facility] 3 09:10:17 Foot pain Active 2015 Foot pain; Original Code: 439172010 Origi nal Codesystem: SNOMED CT Classificati on: Medical Confirm ation Status: Confirmed Not Available [facility] 3 09:10:17 Acquired hallux valgus Active 2015 Acquired hallux valgus; Original Code: 633107562 Origi nal Codesystem: SNOMED CT Classificati on: Medical Confirm ation Status: Confirmed Not Available [facility] 3 09:10:17 Acquired hallux malleus Active 2015 Acquired hallux malleus; Original Code: 83161941 Origin al Codesystem: SNOMED CT Classificati on: Medical Confirm ation Status: Confirmed Not Available [facility] 3 09:10:17 Atrial fibrillation Active 2015 Atrial fibrillation; Original Code: 50736331 Origin al Codesystem: SNOMED CT Classificati on: Medical Confirm ation Status: Confirmed Not Available [facility] 3 09:10:17 Hypertensive disorder Active 2015 Hypertensive disorder; Original Code: 4979169202 Orig inal Codesystem: SNOMED CT Classificati on: Medical Confirm ation Status: Confirmed Not Available [facility] 09:10:17 Notes:H/O: anticoagulant the bharti Original Code: 923674232 Original Codesystem: SNOMED CT Classification: Medical Confirmation Status: Confirmed Problem Notes None recorded. Procedures Surgical History Date Name Laterality Status Provider Name and Address Organization Details Recorded Time 10/24/[address] Hong Andres, DIANE [address] [place] [address], [phone], [facility] 10/23/2022 11:44:57 07/25/[address] Hong Andres DPM [address] [place] [address], [phone], [facility] 07/24/2022 10:35:10 04/24/[address] Hong Andres DPM [address] [place] [address], [phone], [facility] 04/24/2022 11:13:18 [...] Updated DateTime 04/24/2022 190.5 cm 25 kg/m2 15238.47 g Mamta ness [facility] 04/24/2022 10:32:58 Social History None recorded. Functional Status None recorded. Mental Status None recorded. Family History Nothing Reported. Medical History No medical history recorded. Past Encounters Encounter ID Performer Location Encounter Start Date Encounter Closed Date Diagnosis/Indication Diagnosis SNOMED-CT Code [id number] Too Andres DPM [facility] [address] [place] [address] 04/24/2022 10:31:04 04/24/2022 13:46:36 Onychomycosis 301043361 Peripheral vascular disease [id number] 4776 Too Andres DPM [facility] [address] [place] [address] 07/24/2022 10:14:25 07/25/2022 09:45:42 Onychomycosis 888594246 Peripheral vascular disease [id number] 7314 Too Andres DPM [facility] [address] [place] [address] 10/23/2022 10:13:43 10/24/2022 09:44:58 Onychomycosis 941266484 Peripheral vascular disease 827180995 Health Concerns Section Related Observation LastModified by Organization Detai ls LastModified Time None Recorded Concern Status LastModified by Organization Details LastModified Time None Recorded Advance Directives Directive None Recorded Payers Encounter Date Sequence Insurance Name Policy Number Policy Kevin Covered Member ID Kevin Member ID Guarantor Name 10/23/2022 1 [place] [id number] Bola Zurita [id number] Bola Zurita 07/24/2022 1 [place] [id number] Bola Zurita [id number] Bola Zurita 04/24/2022 1 [place] [id number] Bola Zurita [id number] Bola Zurita Notes Date Note Type Note Provider Name and Address Organization Details Recorded Time 04/24/2022 text/html HPI Notes: Pawel salmeron is a 77 year old male established patient who presents with the chief complaint. Presents today for evaluation of problematic toenails and feet in general. They relate chronic thickening and deformity to their toenails that has not responded to self-trimming, topical yvsx-iuc-ldbhzqs anti-fungal therapy, foot soaks, and other similar conservative treatments. Nails are painful with catching on shoegear and socks. Denies any recent foot injury or infection. Claudication symptoms: No Burning symptoms: No Paresthesia: Subjective numbness to the left lower extremity consistent with his previous surgical procedures performed through [facility] surgery in the [facility] Patient presents for further evaluation and treatment options. Too Andres DPM [address] [place], [address], [facility] 04/24/2022 11:14:44 07/24/2022 text/html HPI Notes: Pawel salmeron is a 77 year old male established patient who presents with the chief complaint. Presents today for evaluation of problematic toenails and feet in general. They relate chronic thickening and deformity to their toenails that has not responded to self-trimming, topical wrxi-ksz-wsliybm anti-fungal therapy, foot soaks, and other similar conservative treatments. Nails are painful with catching on shoegear and socks. Denies any recent foot injury or infection. Claudication symptoms: No Burning symptoms: No Paresthesia: Subjective numbness to the left lower extremity consistent with his previous surgical procedures performed through Vascular surgery in [facility] Patient presents for further evaluation and treatment options. Too Andres DPM [address] [place], [address], [facility] 07/24/2022 10:35:54 10/23/2022 text/html HPI Notes: Pawel salmeron is a 77 year old male established patient who presents with the chief complaint. Presents today for evaluation of problematic toenails and feet in general. They relate chronic thickening and deformity to their toenails that has not responded to self-trimming, topical suqx-opb-rzclkyj anti-fungal therapy, foot soaks, and other similar conservative treatments. Nails are painful with catching on shoegear and socks. Denies any recent foot injury or infection. Claudication symptoms: No Burning symptoms: No Paresthesia: Subjective numbness to the left lower extremity consistent with his previous surgical procedures performed through Vascular surgery in [facility] Patient presents for further evaluation and treatment options. Too Andres DPM [address] [place], [address], [facility] 10/23/2022 11:45:19
== END 2023-08-07 11:39 | disposition home or self-care (01) ==
LOC: WOUND 11:38
PROVIDERS: PCP Family Medicine; Visit Provider Nurse Practitioner Family
DX: L02.212 Cutaneous abscess of back [any part, except buttock and flank] (principal)
CPT/HCPCS: G0463

== ENCOUNTER 2023-08-11 10:59 | Outpatient (CLI) | payer MEDICARE, BC, SELFPAY ==
--- OUTSIDE RECORDS SUMMARY | 2023-08-11 11:02 | XMS_ITS | Continuity of Care Document ---
Author Name [facility] Organization [facility] Care Team Providers Care Hot Kettle Tender Name Role Phone [facility] Unavailable Unavailable Problems Combined list of problems from Department of Defense and Veterans Affairs facilities. It does not include entries that were removed or entered in error. Problem Status Onset Date Problem Type Date of Resolution Comments Source CVD - Cerebrovascular Disease ([facility] 85315122) Active 03/19/20 20 Condition May 01, 2020 Entered By: YOAV CHAUHAN Comment: 03/19/20: L MCA CVA, Admit ANW. Cardio-embol ic d/t Warfarin DC [facility] CAD - Coronary Artery Disease ([facility] [id number]) Active 01/27/20 20 Condition Mar 13, 2020 Entered By: YOAV CHAUHAN Comment: 01/27/20: LAD and Dx stented w/SATHYA at [facility]. Plavix +ASA thru 01/26/21 [facility] Peripheral arterial insufficiency Active 01/21/20 20 Condition Mar 13, 2020 Entered By: YOAV CHAUHAN Comment: 01/21/20: L femoral Art occlusion per [facility]-->Fem -Tibial bypass planned [facility] Allergic rhinitis (SNOMED CT 28170368) Active Condition [facility] Atrial fibrillation (SNOMED CT 06157209) Active Condition Apr 26, 2015 Entered By: YOAV CHAUHAN Comment: Warfarin through Miryam Rodriguez [facility] Co-Managed Care Active Condition Dec 25, 2017 Entered By: YOAV CHAUHAN Comment: Dr Garcia, Michael [place], F: [phone] , [facility] COPD - Chronic Obstructive Pulmonary Disease ([facility] 57419397) Active Condition Dec 25, 2017 Entered By: YOAV CHAUHAN Comment: Mometasone & Albuterol MDI's [facility] [place] of toe Active Condition Sep 08, 2019 Entered By: YOAV CHAUHAN Comment: R middle toe [facility] Current smoker Active Condition Apr 082015 Entered By: YOAV CHAUHAN Comment: Cigars, not cigarettes [facility] Essential hypertension (SNOMED CT 13574228) Active Condition [facility] Glucose intolerance Active Condition [facility] Nocturia due to benign prostatic hypertrophy Active Condition [facility] Health Maintenance (ICD-9-CM V65.9) Inactive Condition 04/26/2015 BELGICA MANCILLA [facility] Diagnosis: ICD-10-CM Z00.01 Encounter for general adult medical exam w abnormal findings Active Diagnosis [facility] Diagnosis: ICD-10-CM Z79.01 [facility] (current) use of anticoagulants Active Diagnosis [facility] [place] [facility] Diagnosis: ICD-10-CM Z76.0 Encounter for issue of repeat prescription Active Diagnosis [facility] Medications Combined list of outpatient medications from [...] S OF BREATH INHALA TION HOLD 07/17/2024 [id number] AFRICA CHAUHAN 2023 2 [facility] ALBUTEROL 90MCG/ACTUA T (CFC-F) INHL,ORAL,8 .5GM DOSE COUNTER INHALE 2 PUFFS BY INHALATI ON FOUR TIMES A DAY NEEDED FOR SHORTNES S OF BREATH INHALA TION DISCONT INUED 08/08/2023 [id number] 3 AFRICA CHAUHAN 2022 2 [facility] APIXABAN 5MG TAB TAKE ONE TABLET BY MOUTH EVERY 12 HOURS TO PREVENT BLOOD CLOTS AND STROKE (ELIQUIS ) ORALLY ACTIVE 05/29/2024 [id number] 4 MARIANO GARCIA 2023 180 [facility] APIXABAN 5MG TAB TAKE ONE TABLET BY MOUTH EVERY 12 HOURS TO PREVENT BLOOD CLOTS AND STROKE (ELIQUIS ) ORALLY DISCONT INUED 05/09/2023 [id number] 3 MARIANO GARCIA 2022 180 [facility] APIXABAN 5MG TAB TAKE ONE TABLET BY MOUTH EVERY 12 HOURS TAKE DIRECTED BY [facility], . (TRAVELI NG VET-CONT INUATION OF THERAPY) ORAL 06/08/2022 [id number] CÉSAR GALLEGOS 2022 28 MARCUS KEATING [facility] CHOLECALCIF JONNA 25MCG (1,000UNIT) TAB TAKE FIVE TABLETS BY MOUTH QOD ORALLY ACTIVE AFRICA CHAUHAN 2016 [facility] FLUOCINONID E 0.1% CREAM,TOP APPLY A THIN LAYER TOPICALL Y TWICE A DAY NEEDED FOR RASH TOPICA LLY ACTIVE 12/13/2023 [id number] 3 AFRICA CHAUHAN 2022 60 [facility] FLUTICASONE 250MCG/SALM ETEROL 50MCG INHL,ORAL,D ISKUS,60 INHALE 1 PUFF BY INHALATI ON TWICE A DAY FOR COPD INHALA TION ACTIVE 07/17/2024 [id number] 4 AFRICA CHAUHAN 2023 3 [facility] FLUTICASONE 250MCG/SALM ETEROL 50MCG INHL,ORAL,D ISKUS,60 INHALE 1 PUFF BY INHALATI ON TWICE A DAY FOR COPD THIS REPLACES YOUR MOMETASO NE INHALA TION DISCONT INUED 08/08/2023 [id number] 4 AFRICA CHAUHAN 2022 3 [facility] FUROSEMIDE 20MG TAB TAKE ONE TABLET BY MOUTH THREE TIMES A WEEK FOR HEART FAILURE ORALLY ACTIVE 02/25/2024 [id number] 3 Hong DONAHUE 2022 39 [facility] FUROSEMIDE 20MG TAB TAKE ONE TABLET BY MOUTH EVERY OTHER DAY FOR HEART FAILURE ORALLY DISCONT INUED (EDIT) 08/13/2023 [id number] 3 AFRICA CHAUHAN [place] 2022 45 [facility] FUROSEMIDE 20MG TAB TAKE ONE TABLET BY MOUTH EVERY MORNING FOR HEART FAILURE ORALLY DISCONT INUED 08/08/2023 [id number] 3 AFRICA CHAUHAN [place] 2022 90 [facility] FUROSEMIDE 20MG TAB TAKE ONE TABLET BY MOUTH EVERY MORNING FOR HEART FAILURE ORALLY DISCONT INUED 11/16/2022 [id number] CHAUHAN, AFRICA CHARLTON 2021 90 [facility] HYDROCHLORO THIAZIDE 12.5MG TAB TAKE ONE TABLET BY MOUTH EVERY DAY FOR BLOOD PRESSURE ORALLY DISCONT INUED 08/08/2023 [id number] 3 CHAUHAN, AFRICA CHARLTON 2022 90 [facility] METOPROLOL SUCCINATE 100MG TAB,SA TAKE ONE AND ONE-HALF TABLETS BY MOUTH EVERY DAY ORALLY DISCONT INUED 11/16/2022 [id number] 3 TIEN AFRICA CHARLTON 2021 135 [facility] METOPROLOL SUCCINATE 50MG TAB,SA TAKE THREE TABLETS BY MOUTH EVERY DAY FOR BLOOD PRESSURE ORALLY DISCONT INUED 08/08/2023 [id number] CHAUHAN, AFRICA CHARLTON 2022 270 [facility] METOPROLOL TARTRATE 100MG TAB TAKE ONE TABLET BY MOUTH TWICE A DAY FOR BLOOD PRESSURE ORALLY ACTIVE 12/13/2023 [id number] 4 TIEN AFRICA CHARLTON 2022 180 [facility] MOMETASONE FUROATE 220MCG/INHL INHL,ORAL,6 0 INHALE 1 PUFF BY MOUTH TWICE A DAY TO PREVENT TROUBLE BREATHIN G TWIST COVER ON AND OFF TO LOAD NEXT DOSERI NSE MOUTH AFTER USING * DO NOT WASH INHALER ORALLY DISCONT INUED 11/16/2022 [id number] CHAUHAN, AFRICA LATESHA 2021 3 [facility] NIFEDIPINE (EQV-CC) 60MG TAB,SA TAKE ONE TABLET BY MOUTH EVERY DAY FOR BLOOD PRESSURE ORALLY DISCONT INUED BY PROVIDE R 08/08/2023 [id number] 3 AFRICA CHAUHAN 2022 90 [facility] NIFEDIPINE (EQV-CC) 60MG TAB,SA TAKE ONE TABLET BY MOUTH EVERY DAY FOR BLOOD PRESSURE ORALLY DISCONT INUED 09/11/2022 [id number] 3 AFRICA CHAUHAN 2022 90 [facility] NIFEDIPINE (EQV-CC) 60MG TAB,SA TAKE ONE TABLET BY MOUTH EVERY DAY FOR BLOOD PRESSURE ORALLY DISCONT INUED 08/28/2022 [id number] 3 AFRICA CHAUHAN 2022 90 [facility] NIFEDIPINE (EQV-CC) 90MG TAB,SA TAKE ONE TABLET BY MOUTH EVERY DAY FOR BLOOD PRESSURE ORALLY SUSPEND ED 07/17/2024 [id number] 4 AFRICA CHAUHAN 2023 90 [facility] NIFEDIPINE (EQV-CC) 90MG TAB,SA TAKE ONE TABLET BY MOUTH EVERY DAY FOR BLOOD PRESSURE INCREASE D DOSE PER CO-MANAG ED CARE INCREASE D DOSE PER CO-MANAG ED CARE ORALLY DISCONT INUED 12/13/2023 [id number] 4 AFRICA CHAUHAN 2022 90 [facility] POTASSIUM CHLORIDE 10MEQ TAB,SA TAKE ONE TABLET BY MOUTH THREE TIMES A WEEK FOR POTASSIU M SUPPLEME NT TAKE WITH FUROSEMI DE ORALLY ACTIVE 02/25/2024 [id number] 3 Hong DONAHUE [facility]ES[facility] A 2022 39 [facility] POTASSIUM CHLORIDE 10MEQ TAB,SA TAKE ONE TABLET BY MOUTH EVERY OTHER DAY FOR POTASSIU M SUPPLEME NT ORALLY DISCONT INUED (EDIT) 08/13/2023 [id number] 3 AFRICA CHAUHAN 2022 45 [facility] POTASSIUM CHLORIDE 10MEQ TAB,SA TAKE ONE TABLET BY MOUTH EVERY DAY FOR CONGESTI VE HEART FAILURE ORALLY DISCONT INUED 08/08/2023 [id number] 3 AFRICA CHAUHAN 2022 90 [facility] POTASSIUM CHLORIDE 10MEQ TAB,SA TAKE ONE TABLET BY MOUTH EVERY DAY FOR CONGESTI VE HEART FAILURE ORALLY DISCONT INUED 11/16/2022 [id number] 3 AFRICA CHAUHAN 2021 90 [facility] ROSUVASTATI N CA 20MG TAB TAKE ONE TABLET BY MOUTH AT BEDTIME FOR CORONARY ARTERY DISEASE ORALLY HOLD 07/17/2024 [id number] AFRICA CHAUHAN 2023 90 [facility] ROSUVASTATI N CA 20MG TAB TAKE ONE TABLET BY MOUTH AT BEDTIME FOR CORONARY ARTERY DISEASE ORALLY DISCONT INUED 08/08/2023 [id number] 4 AFRICA CHAUHAN 2022 90 [facility] ROSUVASTATI N CA 40MG TAB TAKE ONE-HALF TABLET BY MOUTH AT BEDTIME FOR CORONARY ARTERY DISEASE ORALLY DISCONT INUED 11/15/2022 [id number] 3 AFRICA CHAUHAN 2021 45 [facility] TAMSULOSIN HCL 0.4MG CAP TAKE ONE CAPSULE BY MOUTH EVERY EVENING FOR PROSTATE ORALLY ACTIVE 07/17/2024 [id number] 4 AFRICA CHAUHAN 2023 30 [facility] Allergies, Adverse Reactions, Alerts Combined list of allergies from Department of Defense and Veterans Affairs facilities. It does not include entries that were removed or entered in error. Substance Category Reaction Severity Reaction type Status Date Reported Comments Source LISINOPRIL Propensity to adverse reactions to drug (finding) Cough active 0 [facility] Immunizations Combined list of available immunizations from the Department of Defense and Veterans Affairs facilities. Immunization Series Date Given Administered By Site Reaction Lot Number CVX Code Drug Shuttle Fitting Supervisor Status Comments Source COVID-19 (Mercateo), MRNA, LNP-S, BIVALENT, PF, 30 MCG/0.3 ML DOSE 2022 300 complet ed [facility] COVID-19 (PFIZER), MRNA, LNP-S, PF, 30 MCG/0.3 ML DOSE, JAMES-SUCROSE (AGES 12+ YEARS) 2021 217 complet ed [facility] COVID-19 (PFIZER), MRNA, LNP-S, PF, 30 MCG/0.3 ML DOSE 2020 208 complet ed [facility] ZOSTER RECOMBINANT 2 2020 187 complet [facility] INFLUENZA VACCINE, QUADRIVALENT, ADJUVANTED 2020 205 complet ed [facility] INFLUENZA, UNSPECIFIED FORMULATION 2020 88 complet ed [facility] ZOSTER RECOMBINANT 1 2020 187 complet [facility] COVID-19 (PFIZER), MRNA, LNP-S, PF, 30 MCG/0.3 ML DOSE 2 2020 208 complet ed [facility] COVID-19 (PFIZER), MRNA, LNP-S, PF, 30 MCG/0.3 ML DOSE 1 2020 208 complet ed [facility] INFLUENZA VACCINE, QUADRIVALENT, ADJUVANTED 2019 205 complet ed [facility] INFLUENZA, TRIVALENT, ADJUVANTED 2018 168 complet ed [facility] INFLUENZA, SEASONAL, INJECTABLE 2018 141 complet ed [facility] INFLUENZA, SEASONAL, INJECTABLE 2017 141 complet ed [facility] INFLUENZA, TRIVALENT, ADJUVANTED 2017 168 complet ed [facility] INFLUENZA, HIGH DOSE SEASONAL 2016 135 complet ed [facility] PNEUMOCOCCAL POLYSACCHARID E PPV23 2016 33 complet ed [employer] , [id number], 06/03/18 [facility] TD (ADULT), 2 LF TETANUS TOXOID, PRESERVATIVE FREE, ADSORBED 2016 09 complet ed [employer] [id number], 12/19/18 [facility] INFLUENZA, HIGH DOSE SEASONAL 2016 135 complet ed [facility] PNEUMOCOCCAL POLYSACCHARID E PPV23 2016 33 complet ed [facility] INFLUENZA, HIGH DOSE SEASONAL 2015 135 complet ed [facility] PNEUMOCOCCAL CONJUGATE PCV 13 2015 133 complet ed [employer] [facility] PNEUMOCOCCAL CONJUGATE PCV 13 2014 133 complet ed [facility] INFLUENZA, UNSPECIFIED FORMULATION 2013 88 complet ed [facility] INFLUENZA, UNSPECIFIED FORMULATION 2013 88 complet ed [facility] INFLUENZA, UNSPECIFIED FORMULATION 2011 88 complet ed [facility] INFLUENZA, UNSPECIFIED FORMULATION 2010 88 complet ed [facility] PNEUMOCOCCAL, UNSPECIFIED FORMULATION 2009 109 complet ed [employer],093 02, 011 [facility] TDAP 2009 115 complet ed [facility] ZOSTER LIVE 2008 121 complet ed [facility] TDAP 2007 115 complet ed private [facility] ZOSTER LIVE 2006 121 complet ed [facility] Results Combined list of recent [...] Jul 17, 2023 04:23 PM Reporting Lab: [facility] [phone] Performing Lab: [facility] [address] [facility] URINALYS IS SPECIFIC GRAVITY OF URINE 1.006 1.003 - 1.035 07/16 Specimen Type: URINE No comment entered. Ordering Provider: TERRENCE CHAUHAN Report Released Date/Time: Jul 17, 2023 04:23 PM Reporting Lab: [facility] [address] Performing Lab: [facility] [address] [facility] URINALYS IS BILIRUBIN. TOTAL [PRESENCE] IN URINE BY TEST STRIP NEGATIVE 07/16 Specimen Type: URINE No comment entered. Ordering Provider: TERRENCE CHAUHAN Report Released Date/Time: Jul 17, 2023 04:23 PM Reporting Lab: [facility] [address] Performing Lab: [facility] [address] [place] [facility] URINALYS IS KETONES [MASS/VOLU ME] IN URINE BY TEST STRIP NEGATIVE 07/16 Specimen Type: URINE No comment entered. Ordering Provider: TERRENCE CHAUHAN Report Released Date/Time: Jul 17, 2023 04:23 PM Reporting Lab: [facility] [address] Performing Lab: [facility] [address] [place] [facility] URINALYS IS GLUCOSE [MASS/VOLU ME] IN URINE BY TEST STRIP NEGATIVE 07/16 Specimen Type: URINE No comment entered. Ordering Provider: TERRENCE CHAUHAN Report Released Date/Time: Jul 17, 2023 04:23 PM Reporting Lab: [facility] [address] Performing Lab: [facility] [address] [place] [facility] URINALYS IS PROTEIN [MASS/VOLU ME] IN URINE BY TEST STRIP NEGATIVE 07/16 Specimen Type: URINE No comment entered. Ordering Provider: TERRENCE CHAUHAN Report Released Date/Time: Jul 17, 2023 04:23 PM Reporting Lab: [facility] [address] Performing Lab: [facility] [address] [place] [facility] URINALYS IS PH OF URINE BY TEST STRIP 7.0 5.0 - 8.0 07/16 Specimen Type: URINE No comment entered. Ordering Provider: TERRENCE CHAUHAN Report Released Date/Time: Jul 17, 2023 04:23 PM Reporting Lab: [facility] [address] Performing Lab: [facility] [address] [place] [facility] URINALYS IS LEUKOCYTES [#/AREA] IN URINE SEDIMENT BY MICROSCOPY HIGH POWER FIELD <1 0 - 7 07/16 Specimen Type: URINE No comment entered. Ordering Provider: TERRENCE CHAUHAN Report Released Date/Time: Jul 17, 2023 04:23 PM Reporting Lab: [facility] [address] Performing Lab: [facility] [address] [place] [facility] URINALYS IS BACTERIA [PRESENCE] IN URINE SEDIMENT BY LIGHT MICROSCOPY NONE SEEN 07/16 Specimen Type: URINE No comment entered. Ordering Provider: TERRENCE CHAUHAN Report Released Date/Time: Jul 17, 2023 04:23 PM Reporting Lab: [facility] [address] Performing Lab: [facility] [address] [place] [facility] URINALYS IS ERYTHROCYT ES [#/AREA] IN URINE SEDIMENT BY MICROSCOPY HIGH POWER FIELD <1 0 - 3 07/16 Specimen Type: URINE No comment entered. Ordering Provider: TERRENCE CHAUHAN Report Released Date/Time: Jul 17, 2023 04:23 PM Reporting Lab: [facility] [address] Performing Lab: [facility] [address] [place] [facility] URINALYS IS APPEARANCE OF URINE CLEAR 07/16 Specimen Type: URINE No comment entered. Ordering Provider: TERRENCE CHAUHAN Report Released Date/Time: Jul 17, 2023 04:23 PM Reporting Lab: [facility] [address] Performing Lab: [facility] [address] [place] [facility] URINALYS IS EPITHELIAL CELLS.SQUA MOUS [#/AREA] IN URINE SEDIMENT BY MICROSCOPY HIGH POWER FIELD NONE SEEN 07/16 Specimen Type: URINE No comment entered. Ordering Provider: TERRENCE CHAUHAN Report Released Date/Time: Jul 17, 2023 04:23 PM Reporting Lab: [facility] [address] Performing Lab: [facility] [address] [place] [facility] URINALYS IS HEMOGLOBIN [PRESENCE] IN URINE BY TEST STRIP NEGATIVE 07/16 Specimen Type: URINE No comment entered. Ordering Provider: TERRENCE CHAUHAN Report Released Date/Time: Jul 17, 2023 04:23 PM Reporting Lab: [facility] [address] Performing Lab: [facility] [address] [place] [facility] URINALYS IS NITRITE [PRESENCE] IN URINE BY TEST STRIP NEGATIVE 07/16 Specimen Type: URINE No comment entered. Ordering Provider: TERRENCE CHAUHAN Report Released Date/Time: Jul 17, 2023 04:23 PM Reporting Lab: [facility] [address] Performing Lab: [facility] [address] [place] [facility] URINALYS IS LEUKOCYTE ESTERASE [PRESENCE] IN URINE BY TEST STRIP NEGATIVE 07/16 Specimen Type: URINE No comment entered. Ordering Provider: TERRENCE CHAUHAN Report Released Date/Time: Jul 17, 2023 04:23 PM Reporting Lab: [facility] [address] Performing Lab: [facility] [address] [place] [facility] HEMOGLOB IN A1C HEMOGLOBIN A1C/HEMOGL OBIN.TOTAL [...] August 07, 2022 02:21 PM Reporting Lab: [facility] [address] Performing Lab: [facility] [address] [place] [facility] BASIC METABOLI C PANEL+MG CREATININE [MASS/VOLU ME] IN SERUM OR PLASMA 1.3 0.7 - 1.2 07/16 H Specimen Type: PLASMA No comment entered. Ordering Provider: TERRENCE CHAUHAN Report Released Date/Time: August 07, 2022 02:21 PM Reporting Lab: [facility] [address] Performing Lab: [facility] [address] [place] [facility] BASIC METABOLI C PANEL+MG UREA NITROGEN [MASS/VOLU ME] IN SERUM OR PLASMA 15 8 - 26 07/16 Specimen Type: PLASMA No comment entered. Ordering Provider: TERRENCE CHAUHAN Report Released Date/Time: August 07, 2022 02:21 PM Reporting Lab: [facility] [address] Performing Lab: [facility] [address] [place] [facility] BASIC METABOLI C PANEL+MG GLUCOSE [MASS/VOLU ME] IN SERUM OR PLASMA 84 70 - 100 07/16 Specimen Type: PLASMA No comment entered. Ordering Provider: TERRENCE CHAUHAN Report Released Date/Time: August 07, 2022 02:21 PM Reporting Lab: [facility] [address] Performing Lab: [facility] [address] [place] [facility] BASIC METABOLI C PANEL+MG SODIUM [MOLES/VOL UME] IN SERUM OR PLASMA 137 136 - 145 07/16 Specimen Type: PLASMA No comment entered. Ordering Provider: TERRENCE CHAUHAN Report Released Date/Time: August 07, 2022 02:21 PM Reporting Lab: [facility] [address] Performing Lab: [facility] [address] [place] [facility] BASIC METABOLI C PANEL+MG POTASSIUM [MOLES/VOL UME] IN SERUM OR PLASMA 4.6 3.5 - 5.1 07/16 Specimen Type: PLASMA No comment entered. Ordering Provider: TERRENCE CHAUHAN Report Released Date/Time: August 07, 2022 02:21 PM Reporting Lab: [facility] [address] Performing Lab: [facility] [address] [place] [facility] BASIC METABOLI C PANEL+MG CHLORIDE [MOLES/VOL UME] IN SERUM OR PLASMA 105 98 - 107 07/16 Specimen Type: PLASMA No comment entered. Ordering Provider: TERRENCE CHAUHAN Report Released Date/Time: August 07, 2022 02:21 PM Reporting Lab: [facility] [address] Performing Lab: [facility] [address] [place] [facility] BASIC METABOLI C PANEL+MG CARBON DIOXIDE, TOTAL [MOLES/VOL UME] IN SERUM OR PLASMA 24 22 - 29 07/16 Specimen Type: PLASMA No comment entered. Ordering Provider: TERRENCE CHAUHAN Report Released Date/Time: August 07, 2022 02:21 PM Reporting Lab: [facility] [address] Performing Lab: [facility] [address] [place] [facility] BASIC METABOLI C PANEL+MG CALCIUM [MASS/VOLU ME] IN SERUM OR PLASMA 8.9 8.4 - 10.2 07/16 Specimen Type: PLASMA No comment entered. Ordering Provider: TERRENCE CHAUHAN Report Released Date/Time: August 07, 2022 02:21 PM Reporting Lab: [facility] [address] Performing Lab: [facility] [address] [place] [facility] BASIC METABOLI C PANEL+MG MAGNESIUM [MASS/VOLU ME] IN SERUM OR PLASMA 2.1 1.6 - 2.6 07/16 Specimen Type: PLASMA No comment entered. Ordering Provider: TERRENCE CHAUHAN Report Released Date/Time: August 07, 2022 02:21 PM Reporting Lab: [facility] [address] Performing Lab: [facility] [address] [place] [facility] BASIC METABOLI C PANEL+MG ANION GAP IN SERUM OR PLASMA 8 5 - 15 07/16 Specimen Type: PLASMA No comment entered. Ordering Provider: TERRENCE CHAUHAN Report Released Date/Time: August 07, 2022 02:21 PM Reporting Lab: [facility] [address] Performing Lab: [facility] [address] [place] [facility] BASIC METABOLI C PANEL+MG GLOMERULAR FILTRATION RATE/1.73 SQ M.PREDICTE D [VOLUME RATE/AREA] IN SERUM, PLASMA OR BLOOD BY CREATININE -BASED FORMULA (CKD-EPI 2020) 56 60 07/16 L Specimen Type: PLASMA No comment entered. Ordering Provider: TERRENCE CHAUHAN Report Released Date/Time: August 07, 2022 02:21 PM Reporting Lab: [facility] [address] Performing Lab: [facility] [address] [place] [facility] CBC LEUKOCYTES [#/VOLUME] IN BLOOD BY AUTOMATED COUNT 8.72 4.0 - 11.0 07/16 Specimen Type: BLOOD No comment entered. Ordering Provider: TERRENCE CHAUHAN Report Released Date/Time: August 07, 2022 02:21 PM Reporting Lab: [facility] [address] Performing Lab: [facility] [address] [place] [facility] CBC ERYTHROCYT ES [#/VOLUME] IN BLOOD BY AUTOMATED COUNT 4.11 4.6 - 6.2 07/16 L Specimen Type: BLOOD No comment entered. Ordering Provider: TERRENCE CHAUHAN Report Released Date/Time: August 07, 2022 02:21 PM Reporting Lab: [facility] [address] Performing Lab: [facility] [address] [place] [facility] CBC HEMOGLOBIN [MASS/VOLU ME] IN BLOOD 13.4 13.5 - 17.9 07/16 L Specimen Type: BLOOD No comment entered. Ordering Provider: TERRENCE CHAUHAN Report Released Date/Time: August 07, 2022 02:21 PM Reporting Lab: [facility] [address] Performing Lab: [facility] [address] [place] [facility] CBC HEMATOCRIT [VOLUME FRACTION] OF BLOOD BY AUTOMATED COUNT 39.7 41 - 54 07/16 L Specimen Type: BLOOD No comment entered. Ordering Provider: TERRENCE CHAUHAN Report Released Date/Time: August 07, 2022 02:21 PM Reporting Lab: [facility] [address] Performing Lab: [facility] [address] [place] [facility] CBC MCV [ENTITIC VOLUME] BY AUTOMATED COUNT 96.6 80 - 100 07/16 Specimen Type: BLOOD No comment entered. Ordering Provider: TERRENCE CHAUHAN Report Released Date/Time: August 07, 2022 02:21 PM Reporting Lab: [facility] [id number] Performing Lab: [facility] [address] [place] [facility] CBC MCH [ENTITIC MASS] BY AUTOMATED COUNT 32.6 27 - 33 07/16 Specimen Type: BLOOD No comment entered. Ordering Provider: TERRENCE CHAUHAN Report Released Date/Time: August 07, 2022 02:21 PM Reporting Lab: [facility] [phone] Performing Lab: [facility] [address] [place] [facility] CBC MCHC [MASS/VOLU ME] BY AUTOMATED COUNT 33.8 32.0 - 37.5 07/16 Specimen Type: BLOOD No comment entered. Ordering Provider: TERRENCE CHAUHAN Report Released Date/Time: August 07, 2022 02:21 PM Reporting Lab: [facility] [phone] Performing Lab: [facility] [phone] [place] [facility] CBC PLATELETS [#/VOLUME] IN BLOOD BY AUTOMATED COUNT 159 150 - 400 07/16 Specimen Type: BLOOD No comment entered. Ordering Provider: TERRENCE CHAUHAN Report Released Date/Time: August 07, 2022 02:21 PM Reporting Lab: [facility] [phone] Performing Lab: [facility] [phone] [place] [facility] CBC PLATELET MEAN VOLUME [ENTITIC VOLUME] IN BLOOD BY AUTOMATED COUNT 9.6 7.4 - 10.4 07/16 Specimen Type: BLOOD No comment entered. Ordering Provider: TERRENCE CHAUHAN Report Released Date/Time: August 07, 2022 02:21 PM Reporting Lab: [facility] [address] Performing Lab: [facility] [address] [place] [facility] CBC ERYTHROCYT E DISTRIBUTI ON WIDTH [RATIO] BY AUTOMATED COUNT 14.1 11.5 - 14.5 07/16 Specimen Type: BLOOD No comment entered. Ordering Provider: TERRENCE CHAUHAN Report Released Date/Time: August 07, 2022 02:21 PM Reporting Lab: [facility] [address] Performing Lab: [facility] [address] [place] [facility] LIVER FUNCTION TESTS BILIRUBIN. TOTAL [MASS/VOLU ME] IN SERUM OR PLASMA 0.8 0.2 - 1.2 07/16 Specimen Type: PLASMA No comment entered. Ordering Provider: TERRENCE CHAUHAN Report Released Date/Time: August 07, 2022 02:21 PM Reporting Lab: [facility] [address] Performing Lab: [facility] [address] [place] [facility] LIVER FUNCTION TESTS ALKALINE PHOSPHATAS E [ENZYMATIC ACTIVITY/V OLUME] IN SERUM OR PLASMA 52 40 - 150 07/16 Specimen Type: PLASMA No comment entered. Ordering Provider: TERRENCE CHAUHAN Report Released Date/Time: August 07, 2022 02:21 PM Reporting Lab: [facility] [address] Performing Lab: [facility] [address] [place] [facility] LIVER FUNCTION TESTS ALANINE AMINOTRANS FERASE [ENZYMATIC ACTIVITY/V OLUME] IN SERUM OR PLASMA 20 <55 - 55 07/16 Specimen Type: PLASMA No comment entered. Ordering Provider: TERRENCE CHAUHAN Report Released Date/Time: August 07, 2022 02:21 PM Reporting Lab: [facility] [address] Performing Lab: [facility] [address] [place] [facility] LIVER FUNCTION TESTS ASPARTATE AMINOTRANS FERASE [ENZYMATIC ACTIVITY/V OLUME] IN SERUM OR PLASMA 19 <34 - 34 07/16 Specimen Type: PLASMA No comment entered. Ordering Provider: TERRENCE CHAUHAN Report Released Date/Time: August 07, 2022 02:21 PM Reporting Lab: [facility] [address] Performing Lab: [facility] [address] [place] [facility] LIVER FUNCTION TESTS GAMMA GLUTAMYL TRANSFERAS E [ENZYMATIC ACTIVITY/V OLUME] IN SERUM OR PLASMA 38 <64 - 64 07/16 Specimen Type: PLASMA No comment entered. Ordering Provider: TERRENCE CHAUHAN Report Released Date/Time: August 07, 2022 02:21 PM Reporting Lab: [facility] [address] Performing Lab: [facility] [address] [place] [facility] PSA PROSTATE SPECIFIC AG [MASS/VOLU ME] IN SERUM OR PLASMA 3.84 <4.00 - 4.00 07/16 Specimen Type: SERUM No comment entered. Ordering Provider: TERRENCE CHAUHAN Report Released Date/Time: August 07, 2022 02:21 PM Reporting Lab: [facility] [address] Performing Lab: [place] [address] [place] [facility] CREATINI NE(INCLU SATHYA EGFR) CREATININE [MASS/VOLU ME] IN SERUM OR PLASMA 1.2 0.7 - 1.2 04/16 Specimen Type: PLASMA No comment entered. Ordering Provider: HUYEN HYLTON Report Released Date/Time: Mar 07, 2023 02:00 PM Reporting Lab: [facility] [address] Performing Lab: [facility] [address] [place] [facility] CREATINI NE(INCLU SATHYA EGFR) GLOMERULAR FILTRATION RATE/1.73 SQ M.PREDICTE D [VOLUME RATE/AREA] IN SERUM, PLASMA OR BLOOD BY CREATININE -BASED FORMULA (CKD-EPI 2020) 62 60 04/16 Specimen Type: PLASMA No comment entered. Ordering Provider: HUYEN HYLTON Report Released Date/Time: Mar 07, 2023 02:00 PM Reporting Lab: [facility] [address] Performing Lab: [place] [id number] [facility] CBC LEUKOCYTES [#/VOLUME] IN BLOOD BY AUTOMATED COUNT 8.06 4.0 - 11.0 04/16 Specimen Type: BLOOD No comment entered. Ordering Provider: HUYEN HYLTON Report Released Date/Time: Mar 07, 2023 02:00 PM Reporting Lab: [place] [address] Performing Lab: [facility] [address] [place] [facility] CBC ERYTHROCYT ES [#/VOLUME] IN BLOOD BY AUTOMATED COUNT 4.03 4.6 - 6.2 04/16 L Specimen Type: BLOOD No comment entered. Ordering Provider: HUYEN HYLTON Report Released Date/Time: Mar 07, 2023 02:00 PM Reporting Lab: [facility] [address] Performing Lab: [facility] [address] [place] [facility] CBC HEMOGLOBIN [MASS/VOLU ME] IN BLOOD 13.1 13.5 - 17.9 04/16 L Specimen Type: BLOOD No comment entered. Ordering Provider: HUYEN HYLTON Report Released Date/Time: Mar 07, 2023 02:00 PM Reporting Lab: [place] [address] Performing Lab: [place] [phone] [place] [facility] CBC HEMATOCRIT [VOLUME FRACTION] OF BLOOD BY AUTOMATED COUNT 38.9 41 - 54 04/16 L Specimen Type: BLOOD No comment entered. Ordering Provider: HUYEN HYLTON Report Released Date/Time: Mar 07, 2023 02:00 PM Reporting Lab: [facility] [address] Performing Lab: [facility] [address] [place] [facility] CBC MCV [ENTITIC VOLUME] BY AUTOMATED COUNT 96.5 80 - 100 04/16 Specimen Type: BLOOD No comment entered. Ordering Provider: HUYEN HYLTON Report Released Date/Time: Mar 07, 2023 02:00 PM Reporting Lab: [facility] [address] Performing Lab: [facility] [address] [place] [facility] CBC MCH [ENTITIC MASS] BY AUTOMATED COUNT 32.5 27 - 33 04/16 Specimen Type: BLOOD No comment entered. Ordering Provider: HUYEN HYLTON Report Released Date/Time: Mar 07, 2023 02:00 PM Reporting Lab: [facility] [address] Performing Lab: [facility] [address] [place] [facility] CBC MCHC [MASS/VOLU ME] BY AUTOMATED COUNT 33.7 32.0 - 37.5 04/16 Specimen Type: BLOOD No comment entered. Ordering Provider: HUYEN HYLTON Report Released Date/Time: Mar 07, 2023 02:00 PM Reporting Lab: [facility] [address] Performing Lab: [place] [address] [place] [facility] CBC PLATELETS [#/VOLUME] IN BLOOD BY AUTOMATED COUNT 157 150 - 400 04/16 Specimen Type: BLOOD No comment entered. Ordering Provider: HUYEN HYLTON Report Released Date/Time: Mar 07, 2023 02:00 PM Reporting Lab: [facility] [address] Performing Lab: [facility] [address] [place] [facility] CBC PLATELET MEAN VOLUME [ENTITIC VOLUME] IN BLOOD BY AUTOMATED COUNT 9.7 7.4 - 10.4 04/16 Specimen Type: BLOOD No comment entered. Ordering Provider: HUYEN HYLTON Report Released Date/Time: Mar 07, 2023 02:00 PM Reporting Lab: [facility] [address] Performing Lab: [facility] [address] [place] [facility] CBC ERYTHROCYT E DISTRIBUTI ON WIDTH [RATIO] BY AUTOMATED COUNT 14.5 11.5 - 14.5 04/16 Specimen Type: BLOOD No comment entered. Ordering Provider: HUYEN HYLTON Report Released Date/Time: Mar 07, 2023 02:00 PM Reporting Lab: [facility] [address] Performing Lab: [facility] [address] [place] [facility] AST/SGOT ASPARTATE AMINOTRANS FERASE [ENZYMATIC ACTIVITY/V OLUME] IN SERUM OR PLASMA 22 <34 - 34 04/16 Specimen Type: PLASMA No comment entered. Ordering Provider: HUYEN HYLTON Report Released Date/Time: Mar 07, 2023 02:00 PM Reporting Lab: [facility] [address] Performing Lab: [facility] [address] [place] [facility] ALT/SGPT ALANINE AMINOTRANS FERASE [ENZYMATIC ACTIVITY/V OLUME] IN SERUM OR PLASMA 19 <55 - 55 04/16 Specimen Type: PLASMA No comment entered. Ordering Provider: HUYEN HYLTON Report Released Date/Time: Mar 07, 2023 02:00 PM Reporting Lab: [facility] [address] Performing Lab: [facility] [address] [place] [facility] Vital Signs Combined list of inpatient [...] DC Date Status Disposition Source [place] [facility] Outpatient Encounter [id number] 02/13 [facility] [place] [facility] Outpatient Encounter [id number] OLESYA ROGERS 02/14 [facility] [place] [facility] Outpatient Encounter [id number] 02/14 [facility] [place] [facility] Outpatient Encounter [id number] 04/24 [facility] EMERGENCY DEPT VISIT [facility] [id number] Diagnos is: ICD-10- CM Z76.0 Encount er for issue of repeat prescri ption<b r/> AICHA GALLEGOS 05/09 [facility] Outpatient Encounter [id number] 05/09 [facility] [place] [facility] Outpatient Encounter [id number] 06/12 [facility] [place] [facility] Outpatient Encounter [id number] 07/15 [place] [facility] [place] [facility] OFFICE O/P EST MOD 30-39 MIN [id number] Diagnos is: ICD-10- CM Z00.01 Encount er for general adult medical exam w abnorma l finding s
DANETTE LIN LY E 08/07 [place] [facility] [place] [facility] Outpatient Encounter [id number] 08/07 [place] [facility] [place] [facility] Outpatient Encounter [id number] OLESYA ROGERS 08/12 [place] [facility] [place] [facility] Outpatient Encounter [id number] OLESYA ROGERS M 08/12 [place] [facility] [place] [facility] Outpatient Encounter [id number] Ana CHAUHAN 09/12 [place] [facility] [place] [facility] Outpatient Encounter [id number] 11/06 [place] [facility] [place] [facility] Outpatient Encounter [id number] 12/08 [place] [facility] [place] [facility] Outpatient Encounter [id number] 12/12 [place] [facility] [place] [facility] Outpatient Encounter [id number] 01/17 [place] [facility] [place] [facility] Outpatient Encounter [id number] 02/19 [place] [facility] [place] [facility] Outpatient Encounter [id number] 02/24 [place] [facility] [place] [facility] Outpatient Encounter [id number] 03/07 [place] [facility] [place] [facility] QNHP OL DIG ASSMT&MGMT 5-10 [id number] Diagnos is: ICD-10- CM Z79.01 [facility] (curren t) use of anticoa gulants
ELLEN GARCIA 05/29 [facility] OFFICE O/P EST MOD 30 MIN [id number] Diagnos is: ICD-10- CM Z00.01 Encount er for general adult medical exam w abnorma l finding s
Ana CHAUHAN 07/16 [facility] Outpatient Encounter [id number] 07/17 [facility] Social History Combined list of available smoking, tobacco, and other social history from Department of Defense and Veterans Affairs facilities. Social History Type Response Date Comment Sour e Tobacco smoking status NHIS [place] FORMER USER 07/17/2023 [facility] History of tobacco use [place]-TOBACCO QUIT 1 TO < 5 YRS 07/17/2023 [facility] History of tobacco use [place] FORMER USER 08/07/2022 [facility] History of tobacco use [place]-TO[place]CO FORMER USER 10/16/2020 [facility] History of tobacco use [place]-TO[place]ACCO USE CO UNSEL NO 03/29/2019 [facility] History of tobacco use [place]-TOBACCO USE WI 30 MIN OF WAKEUP 02/17/2018 [facility] History of tobacco use CURRENT TOBACCO USER 02/12/2017 [facility] History of tobacco use CURRENT TOBACCO USER 04/25/2015 [facility] History of tobacco use CURRENT TOBACCO USER 04/21/2014 [facility] History of tobacco use CURRENT TOBACCO USER 04/20/2013 [facility] History of tobacco use CURRENT TOBACCO USER 03/20/2012 [facility] History of tobacco use CURRENT TOBACCO USER 02/06/2011 [facility] History of tobacco use CURRENT TOBACCO USER 01/02/2010 [facility]
--- OUTSIDE RECORDS SUMMARY | 2023-08-11 11:02 | XMS_ITS | Clinical Summary ---
Author Name Unknown Organization [facility] Address [place], [place] [address] Care Team Providers Care Job Checker Name Role Phone Klever Monte MD Primary Care Provider [phone]- [phone] Allergies Active Allergy Reactions Criticality Noted Date [...] mg Sustained-Release tabletIndications:C oronary artery disease involving [facility] coronary artery of [facility] [place] heart with angina pectoris (HC),Permanent atrial fibrillation [...] 7 days. 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 LLE angiogram 2. ADMINISTRATION PHYSICIAN of [facility] peroneal Panlobular emphysema 10/21/2018 COPD exacerbation 09/09/2018 [...] Department Care Team Description 08/05/2023 Lab Requisition [facility] [phone] Unknown, Doctor 08/04/2023 8:35 AM CDT Office Visit [facility] [address] [place] [address] Jena Pascual PA Follow Up (Boil) 08/04/2023 Travel 08/01/2023 8:35 AM CDT Office Visit [facility] [address] [place] [address] Jean Pascual PA Derm Problem 08/01/2023 Travel from Last 3 Months Immunizations Name Administration Dates Next Due AMB INFLUENZA IIV3 (AGE 65+ YRS) PF (Flu Clinic Only) 02/24/2019 COVID-19 vaccine (Pfizer-Bio NTech 30mcg/0.3mL) 12YO+ JAMES-SUCROSE PF, MDV 08/24/2021 COVID-19 vaccine (Pfizer-Bio NTech 30mcg/0.3mL) PF, MDV 06/17/2020,05/27/2020 Influenza Virus, [...] T Respiratory Rate 18 03/17/2023 3:35 PM BEEF SELECTOR Oxygen Saturation 96% 08/04/2023 8:35 AM CDT Inhaled Oxygen Concentration - - Weight 90.7 kg (200 lb) 08/04/2023 8:35 AM CDT Height 190.5 cm (6' 3) 03/17/2023 2:07 PM BEEF SELECTOR Body Mass Index 25 03/17/2023 2:07 PM BEEF SELECTOR Plan of Treatment Health Maintenance Due Date [...] Procedure Name Priority Date/Time Associated Diagnosis Comments LAB TRACKING EVENT Routine 08/05/2023 2: 01 PM CDT PATH TISSUE EXAM Routine 08/05/2023 2:01 PM CDT AEROBIC BACTERIAL CULTURE, STAIN Routine 08/01/2023 9:30 AM CDT Abscess of back ANTI HCV Routine 05/16/2021 3:20 PM [facility]EE[facility]OR Need for hepatitis C screening test CT CHEST WO Routine 08/29/2010 4:53 PM CDT Pulmonary nodules from Last 3 Months or Most Recently Relevant to Health Maintenance Results * LAB TRACKING EVENT (08/05/2023 2:01 PM CDT) Other (Other) Client Collect / Unknown 08/05/2023 2:01 PM CDT 08/05/2023 9:37 PM CDT Doctor Unknown LAB BILL ONLY [facility] [address] [place] [place] [address], * PATH TISSUE EXAM (08/05/2023 2:01 PM CDT) Case Report Pathology Report ?Case: [id number] ? Authorizing Provider: ??Unknown, Doctor ?Collected: ? 08/05/2023 1401 ? Ordering Location: ? [facility] ?Received: ?08/06/2023 1013 ? Pathologist: ? Jose Rinaldi MD ? Specimen: ?Back ? 08/07/2023 4:47 PM CDT [facility] Final Diagnosis A) SKIN, BACK, CYST, EXCISION: 1. Epidermoid cyst 2. Negative for dysplasia or malignancy 08/07/2023 4:47 PM CDT [facility] Clinical Information back cyst 08/07/2023 4:47 PM CDT [facility] Gross Description A) Received in formalin, labeled with the patient's name and date of , is a 1.5 x 1.1 x 0.3 cm aggregate of pale-garcia cyst wall fragments admixed with garcia-white soft, friable cyst contents. ??The specimen is filtered and submitted entirely in 1 cassette. [facility] 08/06/2023 08/07/2023 4:47 PM CDT [facility] Microscopic Description The final diagnosis is based on microscopic examination of appropriate sections of all specimens. 08/07/2023 4:47 PM CDT [facility] Additional Information Interpreted at [facility] - [address] [address] 08/07/2023 4:47 PM CDT [facility] Other (Back) 08/05/2023 2:01 PM CDT 08/06/2023 10:13 AM CDT Doctor Unknown PATHOLOGY/CYTOLOGY [facility] [address] [place] [address], * AEROBIC BACTERIAL CULTURE, STAIN (08/01/2023 9:30 AM CDT) CULTURE No Growth. 08/03/2023 3:00 PM CDT [facility] GRAM STAIN 4+ RBCs 08/03/2023 3:00 PM CDT [facility] GRAM STAIN 1+ PMNs 08/03/2023 3:00 PM CDT [facility] GRAM STAIN No Epithelial cells 08/03/2023 3:00 PM CDT [facility] GRAM STAIN 4+ Gram Positive Cocci 08/03/2023 3:00 PM CDT [facility] GRAM STAIN 3+ Gram Negative Bacilli 08/03/2023 3:00 PM CDT [facility] Other (Other) Non-Blood / Unknown 08/01/2023 9:30 AM CDT 08/01/2023 9:31 AM CDT Jena RICHARDSON MICROBIOLOGY [facility] [address] [place] [address], * ANTI HCV (05/16/2021 3:20 PM BEEF SELECTOR) HEPATITIS C ANTIBODY Non-React edelmira Non-React edelmira 05/17/2021 1:21 AM BEEF SELECTOR [facility] Comment:Antibodies to HCV no t detected; does not exclude the possibility of exposure to HCV. Blood BLOOD SPECIMEN / Unknown Venipuncture / Unknown 05/16/2021 3:20 PM BEEF [facility]OR 05/16/2021 3:25 PM BEEF SELECTOR Zak Garcia MD SEND OUTS [facility] [address] [place] [address], * CT CHEST WO CONTRAST (08/29/2010 4:53 [...] Comments Code Status Discussion: Discussed Care Teams Job Checker Relationship Specialty Start Date End Date Klever Monte MD [address] [place] [address] PCP - General Family Practice 06/12/22
--- OUTSIDE RECORDS SUMMARY | 2023-08-11 11:02 | XMS_ITS | Data Portability ---
Author Name Unknown Address [address] [place] [address] Phone [phone] Organization [place] [facility], [employer] Address [address] [place] [address] Assessment Encounter Date Assessment Date Assessment LastModified [...] user Active 2015 Tobacco user; Original Code: 655976897 Origi nal Codesystem: SNOMED CT Classificati on: Medical Confirm ation Status: Probable Not Available [facility] Onychomycosis of toenails Active 2015 Onychomycosis of toenails; Original Code: 8287343784 Orig inal Codesystem: SNOMED CT Classificati on: Medical Confirm ation Status: Confirmed Not Available [facility] 09:10:17 Heart disease Active 2021 Heart disease; Original Code: 31206653 Origin al Codesystem: SNOMED CT Classificati on: Medical Confirm ation Status: Confirmed Not Available [facility] 09:10:17 Corns and callus Active 2015 Corns and callus; Original Code: [id number] Origi nal Codesystem: SNOMED CT Classificati on: Medical Confirm ation Status: Confirmed Not Available [facility] 09:10:17 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; Original Code: 4711498589 Orig inal Codesystem: SNOMED CT Classificati on: Medical Confirm ation Status: Confirmed Not Available [facility] 09:10:17 Foot pain Active 2015 Foot pain; Original Code: 917450639 Origi nal Codesystem: SNOMED CT Classificati on: Medical Confirm ation Status: Confirmed Not Available [facility] 09:10:17 Acquired hallux valgus Active 2015 Acquired hallux valgus; Original Code: 994830911 Origi nal Codesystem: SNOMED CT Classificati on: Medical Confirm ation Status: Confirmed Not Available [facility] 09:10:17 Acquired hallux malleus Active 2015 Acquired hallux malleus; Original Code: 09404351 Origin al Codesystem: SNOMED CT Classificati on: Medical Confirm ation Status: Confirmed Not Available [facility] 09:10:17 Atrial fibrillation Active 2015 Atrial fibrillation; Original Code: 95099727 Origin al Codesystem: SNOMED CT Classificati on: Medical Confirm ation Status: Confirmed Not Available [facility] 09:10:17 Hypertensive disorder Active 2015 Hypertensive disorder; Original Code: 2953632629 Orig inal Codesystem: SNOMED CT Classificati on: Medical Confirm ation Status: Confirmed Not Available [facility] 09:10:17 Notes:H/O: anticoagulant the bharti Original Code: 555999392 Original Codesystem: SNOMED CT Classification: Medical Confirmation Status: Confirmed Problem Notes None recorded. Procedures Surgical History Date Name Laterality Status Provider Name and Address Organization Details Recorded Time 10/24/[address] Hong Andres, DIANE [address] [place] [address], [phone], [facility] 10/23/2022 11:44:57 07/25/[address] Hong Andres DPM [address] [place] [address], [phone], [facility] 07/24/2022 10:35:10 04/24/[address] Hong Andres DPM [address] [place] [address], [phone], [facility] 04/24/2022 11:13:18 Imaging [...] Updated DateTime 04/24/2022 190.5 cm 25 kg/m2 89815.47 g Mamta ness [facility] 04/24/2022 10:32:58 Social History None recorded. Functional Status None recorded. Mental Status None recorded. Family History Nothing Reported. Medical History No medical history recorded. Past Encounters Encounter ID Performer Location Encounter Start Date Encounter Closed Date Diagnosis/Indication Diagnosis SNOMED-CT Code [id number] Too Andres DPM [place] [facility] [address] [place] [address] 04/24/2022 10:31:04 04/24/2022 13:46:36 Onychomycosis 704498524 Peripheral vascular disease [id number] Too Andres DPM [place] [facility] [address] [place] [address] 07/24/2022 10:14:25 07/25/2022 09:45:42 Onychomycosis 309327639 Peripheral vascular disease [id number] Too Andres DPM [place] [facility] [address] [place] [address] 10/23/2022 10:13:43 10/24/2022 09:44:58 Onychomycosis 467456601 Peripheral vascular disease 733447074 Health Concerns Section Related Observation LastModified by Organization Detai ls LastModified Time None Recorded Concern Status LastModified by Organization Details LastModified Time None Recorded Advance Directives Directive None Recorded Payers Encounter Date Sequence Insurance Name Policy Number Policy Kevin Covered Member ID Kevin Member ID Guarantor Name 10/23/2022 1 [place] [id number] Bola Zurita [id number] Bola Zurita 07/24/2022 1 [place] [id number] Bola Zurita [id number] Bola Zurita 04/24/2022 1 [place] [id number] Bola Zurita [id number] Bola Zurita Notes Date Note Type Note Provider Name and Address Organization Details Recorded Time 04/24/2022 text/html HPI Notes: Pawel salmeron is a 77 year old male established patient who presents with the chief complaint. Presents today for evaluation of problematic toenails and feet in general. They relate chronic thickening and deformity to their toenails that has not responded to self-trimming, topical qczx-cvf-aqtwgbr anti-fungal therapy, foot soaks, and other similar conservative treatments. Nails are painful with catching on shoegear and socks. Denies any recent foot injury or infection. Claudication symptoms: No Burning symptoms: No Paresthesia: Subjective numbness to the left lower extremity consistent with his previous surgical procedures performed through [facility] Patient presents for further evaluation and treatment options. Too Andres DPM [address] [place], [address], [facility] 04/24/2022 11:14:44 07/24/2022 text/html HPI Notes: Pawel salmeron is a 77 year old male established patient who presents with the chief complaint. Presents today for evaluation of problematic toenails and feet in general. They relate chronic thickening and deformity to their toenails that has not responded to self-trimming, topical myrs-pvi-rsrkjka anti-fungal therapy, foot soaks, and other similar conservative treatments. Nails are painful with catching on shoegear and socks. Denies any recent foot injury or infection. Claudication symptoms: No Burning symptoms: No Paresthesia: Subjective numbness to the left lower extremity consistent with his previous surgical procedures performed through Vascular surgery in [facility] Patient presents for further evaluation and treatment options. Too Andres DPM [address] [place], [address], [facility] 07/24/2022 10:35:54 10/23/2022 text/html HPI Notes: Pawel salmeron is a 77 year old male established patient who presents with the chief complaint. Presents today for evaluation of problematic toenails and feet in general. They relate chronic thickening and deformity to their toenails that has not responded to self-trimming, topical odcn-vsr-yfmeinf anti-fungal therapy, foot soaks, and other similar conservative treatments. Nails are painful with catching on shoegear and socks. Denies any recent foot injury or infection. Claudication symptoms: No Burning symptoms: No Paresthesia: Subjective numbness to the left lower extremity consistent with his previous surgical procedures performed through [facility]ascular surgery in [facility] Patient presents for further evaluation and treatment options. Too Andres DPM [address] [place], [address], [facility] 10/23/2022 11:45:19
== END 2023-08-11 11:00 | disposition home or self-care (01) ==
LOC: WOUND 11:00
PROVIDERS: PCP Family Medicine; Visit Provider Family Medicine
DX: L02.212 Cutaneous abscess of back [any part, except buttock and flank] (principal); L72.0 Epidermal cyst
CPT/HCPCS: 11042

== ENCOUNTER 2023-08-13 10:11 | Outpatient (CLI) | payer MEDICARE, BC, SELFPAY ==
--- OUTSIDE RECORDS SUMMARY | 2023-08-13 10:13 | XMS_ITS | Clinical Summary ---
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 LLE angiogram 2. MANAGER OF CASE of [place] peroneal Panlobular emphysema 10/21/2018 COPD exacerbation 09/09/2018 [...] Department Care Team Description 08/05/2023 Lab Requisition [facility] [phone] Unknown, Doctor 08/04/2023 8:35 AM CDT Office Visit [facility] [address] [place] [address] Jena Pascual PA Follow Up (Boil) 08/04/2023 Travel 08/01/2023 8:35 AM CDT Office Visit [facility] [address] [place] [address] Jena Pascual PA Derm Problem 08/01/2023 Travel [...] T Respiratory Rate 18 03/17/2023 3:35 PM [facility] Oxygen Saturation 96% 08/04/2023 8:35 AM CDT Inhaled Oxygen Concentration - - Weight 90.7 kg (200 lb) 08/04/2023 8:35 AM CDT Height 190.5 cm (6' 3) 03/17/2023 2:07 PM [facility] Body Mass Index 25 03/17/2023 2:07 PM [facility] Plan of Treatment Health Maintenance Due Date [...] back ANTI HCV Routine 05/16/2021 3:20 PM [facility] Need for hepatitis C screening test CT CHEST WO Routine 08/29/2010 4:53 PM CDT Pulmonary nodules from Last 3 Months or Most Recently Relevant to Health Maintenance Results * LAB TRACKING EVENT (08/05/2023 2:01 PM CDT) Other (Other) Client Collect / Unknown 08/05/2023 2:01 PM CDT 08/05/2023 9:37 PM CDT Doctor Unknown LAB BILL ONLY [facility] [address] [place] [address], * PATH TISSUE EXAM (08/05/2023 2:01 PM CDT) Case Report Pathology Report ?Case: [id number] ? Authorizing Provider: ??Unknown, Doctor ?Collected: ? 08/05/2023 1401 ? Ordering Location: ? [facility] ?Received: ?08/06/2023 1013 ? Pathologist: ? Jose Rinaldi MD ? Specimen: ?Back ? 08/07/2023 4:47 PM CDT [facility] Final Diagnosis A) SKIN, BACK, CYST, EXCISION: 1. Epidermoid cyst 2. Negative for dysplasia or malignancy 08/07/2023 4:47 PM CDT [facility] Clinical Information back cyst 08/07/2023 4:47 PM CDT [facility] Gross Description A) Received in formalin, labeled with the patient's name and date of , is a 1.5 x 1.1 x 0.3 cm aggregate of pale-garcia cyst wall fragments admixed with garcia-white soft, friable cyst contents. ??The specimen is filtered and submitted entirely in 1 cassette. [facility] 08/06/2023 08/07/2023 4:47 PM CDT [facility] Microscopic Description The final diagnosis is based on microscopic examination of appropriate sections of all specimens. 08/07/2023 4:47 PM CDT [facility] Additional Information Interpreted at [facility] - [address], [place] [address] 08/07/2023 4:47 PM CDT [facility] Other (Back) 08/05/2023 2:01 PM CDT 08/06/2023 10:13 AM CDT Doctor Unknown PATHOLOGY/CYTOLOGY [facility] [address] [place] [address], * AEROBIC BACTERIAL CULTURE, STAIN (08/01/2023 9:30 AM CDT) CULTURE No Growth. 08/03/2023 3:00 PM CDT [facility] GRAM STAIN 4+ RBCs 08/03/2023 3:00 PM CDT [facility] GRAM STAIN 1+ PMNs 08/03/2023 3:00 PM CDT [facility] GRAM STAIN No Epithelial cells 08/03/2023 3:00 PM CDT [facility] GRAM STAIN 4+ Gram Positive Cocci 08/03/2023 3:00 PM CDT [facility] GRAM STAIN 3+ Gram Negative Bacilli 08/03/2023 3:00 PM CDT [facility] Other (Other) Non-Blood / Unknown 08/01/2023 9:30 AM CDT 08/01/2023 9:31 AM CDT Jena RICHARDSON MICROBIOLOGY [facility] [address] [place] [address], * ANTI HCV (05/16/2021 3:20 PM [facility]) HEPATITIS C ANTIBODY Non-React edelmira Non-React edelmira 05/17/2021 1:21 AM [facility] Comment:Antibodies to HCV no t detected; does not exclude the possibility of exposure to HCV. Blood BLOOD SPECIMEN / Unknown Venipuncture / Unknown 05/16/2021 3:20 PM [facility] 05/16/2021 3:25 PM [facility] Zak Garcia MD SEND OUTS [facility] [address] [place] [address], * CT CHEST WO CONTRAST (08/29/2010 4:53 [...] Comments Code Status Discussion: Discussed Care Teams Ultra Sound Technician Relationship Specialty Start Date End Date Klever Monte MD [address] [place] [address] PCP - General Family Practice 06/12/22
--- OUTSIDE RECORDS SUMMARY | 2023-08-13 10:13 | XMS_ITS | Continuity of Care Document ---
Author Name [facility] Organization [facility] Care Team Providers Care Associate Editor Name Role Phone [facility] Unavailable Unavailable Problems Combined list of problems from Department of Defense and Veterans Affairs facilities. It does not include entries that were removed or entered in error. Problem Status Onset Date Problem Type Date of Resolution Comments Source CVD - Cerebrovascular Disease ([facility] 54437350) Active 03/19/20 20 Condition May 01, 2020 Entered By: YOAV CHAUHAN Comment: 03/19/20: L MCA CVA, Admit ANW. Cardio-embol ic d/t Warfarin DC [facility] CAD - Coronary Artery Disease ([facility] [id number]) Active 01/27/20 20 Condition Mar 13, 2020 Entered By: YOAV CHAUHAN Comment: 01/27/20: LAD and Dx stented w/SATHYA at [facility]. Plavix +ASA thru 01/26/21 [facility] Peripheral arterial insufficiency Active 01/21/20 20 Condition Mar 13, 2020 Entered By: YOAV CHAUHAN Comment: 01/21/20: L femoral Art occlusion per [facility]-->Fem -Tibial bypass planned [facility] Allergic rhinitis (SNOMED CT 12135516) Active Condition [facility] Atrial fibrillation (SNOMED CT 01798072) Active Condition Apr 26, 2015 Entered By: YOAV CHAUHAN Comment: Warfarin through Miryam Rodriguez [facility] Co-Managed Care Active Condition Dec 25, 2017 Entered By: YOAV CHAUHAN Comment: Dr Garcia, [place], F: [phone] , [facility] COPD - Chronic Obstructive Pulmonary Disease ([facility] [id number]) Active Condition Dec 25, 2017 Entered By: YOAV CHAUHAN Comment: Mometasone & Albuterol MDI's [facility] [place] of toe Active Condition Sep 08, 2019 Entered By: YOAV CHAUHAN Comment: R middle toe [facility] Current smoker Active Condition Apr 082015 Entered By: YOAV CHAUHAN Comment: Cigars, not cigarettes [facility] Essential hypertension (SNOMED CT 27369167) Active Condition [facility] Glucose intolerance Active Condition [facility] Nocturia due to benign prostatic hypertrophy Active Condition [facility] Health Maintenance (ICD-9-CM V65.9) Inactive Condition 04/26/2015 BELGICA MANCILLA [facility] Diagnosis: ICD-10-CM Z00.01 Encounter for general adult medical exam w abnormal findings Active Diagnosis [facility] Diagnosis: ICD-10-CM Z79.01 half-way (current) use of anticoagulants Active Diagnosis [facility] Knox [facility] Diagnosis: ICD-10-CM Z76.0 Encounter for issue of repeat prescription Active Diagnosis [facility] Medications Combined list of outpatient medications [...] S OF BREATH INHALA TION HOLD 07/17/2024 [id number] AFRICA CHAUHAN 2023 2 [facility] ALBUTEROL 90MCG/ACTUA T (CFC-F) INHL,ORAL,8 .5GM DOSE COUNTER INHALE 2 PUFFS BY INHALATI ON FOUR TIMES A DAY NEEDED FOR SHORTNES S OF BREATH INHALA TION DISCONT INUED 08/08/2023 [id number] 3 AFRICA CHAUHAN [address] [facility] APIXABAN 5MG TAB TAKE ONE TABLET BY MOUTH EVERY 12 HOURS TO PREVENT BLOOD CLOTS AND STROKE (ELIQUIS ) ORALLY ACTIVE 05/29/2024 [id number] 4 MARIAN[address] GARCIA [address] [facility] APIXABAN 5MG TAB TAKE ONE TABLET BY MOUTH EVERY 12 HOURS TO PREVENT BLOOD CLOTS AND STROKE (ELIQUIS ) ORALLY DISCONT INUED 05/09/2023 [id number] 3 MARIANO GARCIA 2022 180 [facility] CHOLECALCIF JONNA 25MCG (1,000UNIT) TAB TAKE FIVE TABLETS BY MOUTH QOD ORALLY ACTIVE AFRICA CHAUHAN 2016 [facility] FLUOCINONID E 0.1% CREAM,TOP APPLY A THIN LAYER TOPICALL Y TWICE A DAY NEEDED FOR RASH TOPICA LLY ACTIVE 12/13/2023 [id number] 3 AFRICA CHAUHAN 2022 60 [facility] FLUTICASONE 250MCG/SALM ETEROL 50MCG INHL,ORAL,D ISKUS,60 INHALE 1 PUFF BY INHALATI ON TWICE A DAY FOR COPD INHALA TION ACTIVE 07/17/2024 [id number] 4 AFRICA CHAUHAN 2023 3 [facility] FLUTICASONE 250MCG/SALM ETEROL 50MCG INHL,ORAL,D ISKUS,60 INHALE 1 PUFF BY INHALATI ON TWICE A DAY FOR COPD THIS REPLACES YOUR MOMETASO NE INHALA TION DISCONT INUED 08/08/2023 [id number] 4 AFRICA CHAUHAN 2022 3 [facility] FUROSEMIDE 20MG TAB TAKE ONE TABLET BY MOUTH THREE TIMES A WEEK FOR HEART FAILURE ORALLY ACTIVE 02/25/2024 [id number] Hong DONAHUE 2022 39 [facility] FUROSEMIDE 20MG TAB TAKE ONE TABLET BY MOUTH EVERY OTHER DAY FOR HEART FAILURE ORALLY DISCONT INUED (EDIT) 08/13/2023 [id number] 3 AFRICA CHAUHAN 2022 45 [facility] FUROSEMIDE 20MG TAB TAKE ONE TABLET BY MOUTH EVERY MORNING FOR HEART FAILURE ORALLY DISCONT INUED 08/08/2023 [id number] 3 AFRICA CHAUHAN 2022 90 [facility] FUROSEMIDE 20MG TAB TAKE ONE TABLET BY MOUTH EVERY MORNING FOR HEART FAILURE ORALLY DISCONT INUED 11/16/2022 [id number] 3 AFRICA CHAUHAN 2021 90 [facility] HYDROCHLORO THIAZIDE 12.5MG TAB TAKE ONE TABLET BY MOUTH EVERY DAY FOR BLOOD PRESSURE ORALLY DISCONT INUED 08/08/2023 [id number] 3 AFRICA CHAUHAN 2022 90 [facility] METOPROLOL SUCCINATE 100MG TAB,SA TAKE ONE AND ONE-HALF TABLETS BY MOUTH EVERY DAY ORALLY DISCONT INUED 11/16/2022 [id number] 3 AFRICA CHAUHAN 2021 135 [facility] METOPROLOL SUCCINATE 50MG TAB,SA TAKE THREE TABLETS BY MOUTH EVERY DAY FOR BLOOD PRESSURE ORALLY DISCONT INUED 08/08/2023 [id number] 3 AFRICA CHAUHAN 2022 270 [facility] METOPROLOL TARTRATE 100MG TAB TAKE ONE TABLET BY MOUTH TWICE A DAY FOR BLOOD PRESSURE ORALLY ACTIVE 12/13/2023 [id number] 4 AFRICA CHAUHAN 2022 180 [facility] MOMETASONE FUROATE 220MCG/INHL INHL,ORAL,6 0 INHALE 1 PUFF BY MOUTH TWICE A DAY TO PREVENT TROUBLE BREATHIN G TWIST COVER ON AND OFF TO LOAD NEXT DOSERI NSE MOUTH AFTER USING * DO NOT WASH INHALER ORALLY DISCONT INUED 11/16/2022 [id number] 3 AFRICA CHAUHAN 2021 3 [facility] NIFEDIPINE (EQV-CC) 60MG TAB,SA TAKE ONE TABLET BY MOUTH EVERY DAY FOR BLOOD PRESSURE ORALLY DISCONT INUED BY PROVIDE R 08/08/2023 [id number] 3 AFRICA CHAUHAN 2022 90 [facility] NIFEDIPINE (EQV-CC) 60MG TAB,SA TAKE ONE TABLET BY MOUTH EVERY DAY FOR BLOOD PRESSURE ORALLY DISCONT INUED 09/11/2022 [id number] 3 AFRICA CHAUHAN 2022 90 [facility] NIFEDIPINE (EQV-CC) 60MG TAB,SA TAKE ONE TABLET BY MOUTH EVERY DAY FOR BLOOD PRESSURE ORALLY DISCONT INUED 08/28/2022 [id number] 3 AFRICA CHAUHAN 2022 90 [facility] NIFEDIPINE (EQV-CC) 90MG TAB,SA TAKE ONE TABLET BY MOUTH EVERY DAY FOR BLOOD PRESSURE ORALLY SUSPEND ED 07/17/2024 [id number] 4 AFRICA CHAUHAN 2023 90 [facility] NIFEDIPINE (EQV-CC) 90MG TAB,SA TAKE ONE TABLET BY MOUTH EVERY DAY FOR BLOOD PRESSURE INCREASE D DOSE PER CO-MANAG ED CARE INCREASE D DOSE PER CO-MANAG ED CARE ORALLY DISCONT INUED 12/13/2023 [id number] 4 AFRICA CHAUHAN 2022 90 [facility] POTASSIUM CHLORIDE 10MEQ TAB,SA TAKE ONE TABLET BY MOUTH THREE TIMES A WEEK FOR POTASSIU M SUPPLEME NT TAKE WITH FUROSEMI DE ORALLY ACTIVE 02/25/2024 [id number] 3 Hong DONAHUE A 2022 39 [facility] POTASSIUM CHLORIDE 10MEQ TAB,SA TAKE ONE TABLET BY MOUTH EVERY OTHER DAY FOR POTASSIU M SUPPLEME NT ORALLY DISCONT INUED (EDIT) 08/13/2023 [id number] 3 AFRICA CHAUHAN 2022 45 [facility] POTASSIUM CHLORIDE 10MEQ TAB,SA TAKE ONE TABLET BY MOUTH EVERY DAY FOR CONGESTI VE HEART FAILURE ORALLY DISCONT INUED 08/08/2023 [id number] 3 AFRICA CHAUHAN 2022 90 [facility] POTASSIUM CHLORIDE 10MEQ TAB,SA TAKE ONE TABLET BY MOUTH EVERY DAY FOR CONGESTI VE HEART FAILURE ORALLY DISCONT INUED 11/16/2022 [id number] 3 AFRICA CHAUHAN 2021 90 [facility] ROSUVASTATI N CA 20MG TAB TAKE ONE TABLET BY MOUTH AT BEDTIME FOR CORONARY ARTERY DISEASE ORALLY HOLD 07/17/2024 [id number] AFRICA CHAUHAN [place] [address] [facility] ROSUVASTATI N CA 20MG TAB TAKE ONE TABLET BY MOUTH AT BEDTIME FOR CORONARY ARTERY DISEASE ORALLY DISCONT INUED 08/08/2023 [id number] 4 AFRICA CHAUHAN [place] [address] [facility] ROSUVASTATI N CA 40MG TAB TAKE ONE-HALF TABLET BY MOUTH AT BEDTIME FOR CORONARY ARTERY DISEASE ORALLY DISCONT INUED 11/15/2022 [id number] 3 AFRICA CHAUHAN LATESHA [address] [facility] TAMSULOSIN HCL 0.4MG CAP TAKE ONE CAPSULE BY MOUTH EVERY EVENING FOR PROSTATE ORALLY SUSPEND ED 07/17/2024 [id number] 4 AFRICA CHAUHAN [place] [address] [facility] Allergies, Adverse Reactions, Alerts Combined list of allergies from Department of Defense and Veterans Affairs facilities. It does not include entries that were removed or entered in error. Substance Category Reaction Severity Reaction type Status Date Reported Comments Source LISINOPRIL Propensity to adverse reactions to drug (finding) Cough active 0 [facility] Immunizations Combined list of available immunizations from the Department of Defense and Veterans Affairs facilities. 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 COVID-19 (Sefaira), MRNA, LNP-S, PF, 30 MCG/0.3 ML DOSE, JAMES-SUCROSE (AGES 12+ YEARS) [address] [facility] COVID-19 (Sefaira), MRNA, LNP-S, PF, 30 MCG/0.3 ML DOSE [address] [facility] ZOSTER RECOMBINANT [address] [facility] INFLUENZA VACCINE, QUADRIVALENT, ADJUVANTED [address] [facility] INFLUENZA, UNSPECIFIED FORMULATION [address] [facility] ZOSTER RECOMBINANT [address] [facility] COVID-19 (PFIZER), MRNA, LNP-S, PF, 30 MCG/0.3 ML DOSE 2 [address] [facility] COVID-19 (PFIZER), MRNA, LNP-S, PF, 30 MCG/0.3 ML DOSE 1 [address] [facility] INFLUENZA VACCINE, QUADRIVALENT, ADJUVANTED [address] [facility] INFLUENZA, TRIVALENT, ADJUVANTED [address] [facility] INFLUENZA, SEASONAL, INJECTABLE [address] [facility] INFLUENZA, SEASONAL, INJECTABLE [address] [facility] INFLUENZA, TRIVALENT, ADJUVANTED [address] [facility] INFLUENZA, HIGH DOSE SEASONAL [address] [facility] PNEUMOCOCCAL POLYSACCHARID E PPV23 2016 33 complet ed [employer] , [id number], 06/03/18 [facility] TD (ADULT), 2 LF TETANUS TOXOID, PRESERVATIVE FREE, ADSORBED 2016 09 complet ed [employer] [id number], 12/19/18 [facility] INFLUENZA, HIGH DOSE SEASONAL [address] [facility] PNEUMOCOCCAL POLYSACCHARID E PPV23 [address] [facility] INFLUENZA, HIGH DOSE SEASONAL [address] [facility] PNEUMOCOCCAL CONJUGATE PCV 13 2015 133 complet ed [employer] M [facility] PNEUMOCOCCAL CONJUGATE PCV 13 [address] [facility] INFLUENZA, UNSPECIFIED FORMULATION [address] [facility] INFLUENZA, UNSPECIFIED FORMULATION [address] [facility] INFLUENZA, UNSPECIFIED FORMULATION [address] [facility] INFLUENZA, UNSPECIFIED FORMULATION [address] [facility] PNEUMOCOCCAL, UNSPECIFIED FORMULATION 2009 109 complet ed [employer],093 02, 011 [facility] TDAP [address] [facility] ZOSTER LIVE [address] [facility] TDAP [address] [facility] ZOSTER LIVE [address] [facility] Results Combined list of recent chemistry, hematology [...] Jul 17, 2023 04:23 PM Reporting Lab: [facility] [address] Performing Lab: [facility] [address] [facility] URINALYS IS SPECIFIC GRAVITY OF URINE 1.006 1.003 - 1.035 07/16 Specimen Type: URINE No comment entered. Ordering Provider: TERRENCE CHAUHAN Report Released Date/Time: Jul 17, 2023 04:23 PM Reporting Lab: [facility] [address] Performing Lab: [facility] [address] [facility] URINALYS IS BILIRUBIN. TOTAL [PRESENCE] IN URINE BY TEST STRIP NEGATIVE 07/16 Specimen Type: URINE No comment entered. Ordering Provider: TERRENCE CHAUHAN Report Released Date/Time: Jul 17, 2023 04:23 PM Reporting Lab: [facility] [address] Performing Lab: [facility] [address] [facility] URINALYS IS KETONES [MASS/VOLU ME] IN URINE BY TEST STRIP NEGATIVE 07/16 Specimen Type: URINE No comment entered. Ordering Provider: TERRENCE CHAUHAN Report Released Date/Time: Jul 17, 2023 04:23 PM Reporting Lab: [facility] [address] Performing Lab: [facility] [address] [place] [facility] URINALYS IS GLUCOSE [MASS/VOLU ME] IN URINE BY TEST STRIP NEGATIVE 07/16 Specimen Type: URINE No comment entered. Ordering Provider: TERRENCE CHAUHAN Report Released Date/Time: Jul 17, 2023 04:23 PM Reporting Lab: [facility] [address] Performing Lab: [facility] [address] [place] [facility] URINALYS IS PROTEIN [MASS/VOLU ME] IN URINE BY TEST STRIP NEGATIVE 07/16 Specimen Type: URINE No comment entered. Ordering Provider: TERRENCE CHAUHAN Report Released Date/Time: Jul 17, 2023 04:23 PM Reporting Lab: [facility] [phone] Performing Lab: [facility] [address] [place] [facility] URINALYS IS PH OF URINE BY TEST STRIP 7.0 5.0 - 8.0 07/16 Specimen Type: URINE No comment entered. Ordering Provider: TERRENCE CHAUHAN Report Released Date/Time: Jul 17, 2023 04:23 PM Reporting Lab: [facility] [address] Performing Lab: [facility] [address] [place] [facility] URINALYS IS LEUKOCYTES [#/AREA] IN URINE SEDIMENT BY MICROSCOPY HIGH POWER FIELD <1 0 - 7 07/16 Specimen Type: URINE No comment entered. Ordering Provider: TERRENCE CHAUHAN Report Released Date/Time: Jul 17, 2023 04:23 PM Reporting Lab: [facility] [address] Performing Lab: [facility] [address] [place] [facility] URINALYS IS BACTERIA [PRESENCE] IN URINE SEDIMENT BY LIGHT MICROSCOPY NONE SEEN 07/16 Specimen Type: URINE No comment entered. Ordering Provider: TERRENCE CHAUHAN Report Released Date/Time: Jul 17, 2023 04:23 PM Reporting Lab: [facility] [phone] Performing Lab: [facility] [address] [place] [facility] URINALYS IS ERYTHROCYT ES [#/AREA] IN URINE SEDIMENT BY MICROSCOPY HIGH POWER FIELD <1 0 - 3 07/16 Specimen Type: URINE No comment entered. Ordering Provider: TERRENCE CHAUHAN Report Released Date/Time: Jul 17, 2023 04:23 PM Reporting Lab: [facility] [address] Performing Lab: [facility] [address] [place] [facility] URINALYS IS APPEARANCE OF URINE CLEAR 07/16 Specimen Type: URINE No comment entered. Ordering Provider: TERRENCE CHAUHAN Report Released Date/Time: Jul 17, 2023 04:23 PM Reporting Lab: [facility] [address] Performing Lab: [facility] [address] [place] [facility] URINALYS IS EPITHELIAL CELLS.SQUA MOUS [#/AREA] IN URINE SEDIMENT BY MICROSCOPY HIGH POWER FIELD NONE SEEN 07/16 Specimen Type: URINE No comment entered. Ordering Provider: TERRENCE CHAUHAN Report Released Date/Time: Jul 17, 2023 04:23 PM Reporting Lab: [facility] [address] Performing Lab: [facility] [address] [place] [facility] URINALYS IS HEMOGLOBIN [PRESENCE] IN URINE BY TEST STRIP NEGATIVE 07/16 Specimen Type: URINE No comment entered. Ordering Provider: TERRENCE CHAUHAN Report Released Date/Time: Jul 17, 2023 04:23 PM Reporting Lab: [facility] [address] Performing Lab: [facility] [address] [place] [facility] URINALYS IS NITRITE [PRESENCE] IN URINE BY TEST STRIP NEGATIVE 07/16 Specimen Type: URINE No comment entered. Ordering Provider: TERRENCE CHAUHAN Report Released Date/Time: Jul 17, 2023 04:23 PM Reporting Lab: [facility] [address] Performing Lab: [facility] [address] [place] [facility] URINALYS IS LEUKOCYTE ESTERASE [PRESENCE] IN URINE BY TEST STRIP NEGATIVE 07/16 Specimen Type: URINE No comment entered. Ordering Provider: TERRENCE CHAUHAN Report Released Date/Time: Jul 17, 2023 04:23 PM Reporting Lab: [facility] [address] Performing Lab: [facility] [address] [place] [facility] HEMOGLOB IN A1C HEMOGLOBIN A1C/HEMOGL OBIN.TOTAL [...] August 07, 2022 02:21 PM Reporting Lab: [facility] [address] Performing Lab: [facility] [address] [place] [facility] BASIC METABOLI C PANEL+MG CREATININE [MASS/VOLU ME] IN SERUM OR PLASMA 1.3 0.7 - 1.2 07/16 H Specimen Type: PLASMA No comment entered. Ordering Provider: TERRENCE CHAUHAN Report Released Date/Time: August 07, 2022 02:21 PM Reporting Lab: [facility] [address] Performing Lab: [facility] [address] [place] [facility] BASIC METABOLI C PANEL+MG UREA NITROGEN [MASS/VOLU ME] IN SERUM OR PLASMA 15 8 - 26 07/16 Specimen Type: PLASMA No comment entered. Ordering Provider: TERRENCE CHAUHAN Report Released Date/Time: August 07, 2022 02:21 PM Reporting Lab: [facility] [address] Performing Lab: [facility] [address] [place] [facility] BASIC METABOLI C PANEL+MG GLUCOSE [MASS/VOLU ME] IN SERUM OR PLASMA 84 70 - 100 07/16 Specimen Type: PLASMA No comment entered. Ordering Provider: TERRENCE CHAUHAN Report Released Date/Time: August 07, 2022 02:21 PM Reporting Lab: [facility] [address] Performing Lab: [facility] [address] [place] [facility] BASIC METABOLI C PANEL+MG SODIUM [MOLES/VOL UME] IN SERUM OR PLASMA 137 136 - 145 07/16 Specimen Type: PLASMA No comment entered. Ordering Provider: TERRENCE CHAUHAN Report Released Date/Time: August 07, 2022 02:21 PM Reporting Lab: [facility] [address] Performing Lab: [facility] [address] [place] [facility] BASIC METABOLI C PANEL+MG POTASSIUM [MOLES/VOL UME] IN SERUM OR PLASMA 4.6 3.5 - 5.1 07/16 Specimen Type: PLASMA No comment entered. Ordering Provider: TERRENCE CHAUHAN Report Released Date/Time: August 07, 2022 02:21 PM Reporting Lab: [facility] [address] Performing Lab: [facility] [address] [place] [facility] BASIC METABOLI C PANEL+MG CHLORIDE [MOLES/VOL UME] IN SERUM OR PLASMA 105 98 - 107 07/16 Specimen Type: PLASMA No comment entered. Ordering Provider: TERRENCE CHAUHAN Report Released Date/Time: August 07, 2022 02:21 PM Reporting Lab: [facility] [address] Performing Lab: [facility] [address] [place] [facility] BASIC METABOLI C PANEL+MG CARBON DIOXIDE, TOTAL [MOLES/VOL UME] IN SERUM OR PLASMA 24 22 - 29 07/16 Specimen Type: PLASMA No comment entered. Ordering Provider: TERRENCE CHAUHAN Report Released Date/Time: August 07, 2022 02:21 PM Reporting Lab: [facility] [address] Performing Lab: [facility] [address] [place] [facility] BASIC METABOLI C PANEL+MG CALCIUM [MASS/VOLU ME] IN SERUM OR PLASMA 8.9 8.4 - 10.2 07/16 Specimen Type: PLASMA No comment entered. Ordering Provider: TERRENCE CHAUHAN Report Released Date/Time: August 07, 2022 02:21 PM Reporting Lab: [facility] [address] Performing Lab: [facility] [address] [place] [facility] BASIC METABOLI C PANEL+MG MAGNESIUM [MASS/VOLU ME] IN SERUM OR PLASMA 2.1 1.6 - 2.6 07/16 Specimen Type: PLASMA No comment entered. Ordering Provider: TERRENCE CHAUHAN Report Released Date/Time: August 07, 2022 02:21 PM Reporting Lab: [facility] [address] Performing Lab: [facility] [address] [place] [facility] BASIC METABOLI C PANEL+MG ANION GAP IN SERUM OR PLASMA 8 5 - 15 07/16 Specimen Type: PLASMA No comment entered. Ordering Provider: TERRENCE CHAUHAN Report Released Date/Time: August 07, 2022 02:21 PM Reporting Lab: [facility] [address] Performing Lab: [facility] [address] [place] [facility] BASIC METABOLI C PANEL+MG GLOMERULAR FILTRATION RATE/1.73 SQ M.PREDICTE D [VOLUME RATE/AREA] IN SERUM, PLASMA OR BLOOD BY CREATININE -BASED FORMULA (CKD-EPI 2020) 56 60 07/16 L Specimen Type: PLASMA No comment entered. Ordering Provider: TERRENCE CHAUHAN Report Released Date/Time: August 07, 2022 02:21 PM Reporting Lab: [facility] [address] Performing Lab: [facility] [address] [place] [facility] CBC LEUKOCYTES [#/VOLUME] IN BLOOD BY AUTOMATED COUNT 8.72 4.0 - 11.0 07/16 Specimen Type: BLOOD No comment entered. Ordering Provider: TERRENCE CHAUHAN Report Released Date/Time: August 07, 2022 02:21 PM Reporting Lab: [facility] [address] Performing Lab: [facility] [address] [place] [facility] CBC ERYTHROCYT ES [#/VOLUME] IN BLOOD BY AUTOMATED COUNT 4.11 4.6 - 6.2 07/16 L Specimen Type: BLOOD No comment entered. Ordering Provider: TERRENCE CHAUHAN Report Released Date/Time: August 07, 2022 02:21 PM Reporting Lab: [facility] [address] Performing Lab: [facility] [address] [place] [facility] CBC HEMOGLOBIN [MASS/VOLU ME] IN BLOOD 13.4 13.5 - 17.9 07/16 L Specimen Type: BLOOD No comment entered. Ordering Provider: TERRENCE CHAUHAN Report Released Date/Time: August 07, 2022 02:21 PM Reporting Lab: [facility] [address] Performing Lab: [facility] [address] [place] [facility] CBC HEMATOCRIT [VOLUME FRACTION] OF BLOOD BY AUTOMATED COUNT 39.7 41 - 54 07/16 L Specimen Type: BLOOD No comment entered. Ordering Provider: TERRENCE CHAUHAN Report Released Date/Time: August 07, 2022 02:21 PM Reporting Lab: [facility] [phone] Performing Lab: [facility] [phone] [place] [facility] CBC MCV [ENTITIC VOLUME] BY AUTOMATED COUNT 96.6 80 - 100 07/16 Specimen Type: BLOOD No comment entered. Ordering Provider: TERRENCE CHAUHAN Report Released Date/Time: August 07, 2022 02:21 PM Reporting Lab: [facility] [phone] Performing Lab: [facility] [id number] [place] [facility] CBC MCH [ENTITIC MASS] BY AUTOMATED COUNT 32.6 27 - 33 07/16 Specimen Type: BLOOD No comment entered. Ordering Provider: TERRENCE CHAUHAN Report Released Date/Time: August 07, 2022 02:21 PM Reporting Lab: [facility] [id number] Performing Lab: [facility] [phone] [place] [facility] CBC MCHC [MASS/VOLU ME] BY AUTOMATED COUNT 33.8 32.0 - 37.5 07/16 Specimen Type: BLOOD No comment entered. Ordering Provider: TERRENCE CHAUHAN Report Released Date/Time: August 07, 2022 02:21 PM Reporting Lab: [facility] [phone] Performing Lab: [facility] [phone] [place] [facility] CBC PLATELETS [#/VOLUME] IN BLOOD BY AUTOMATED COUNT 159 150 - 400 07/16 Specimen Type: BLOOD No comment entered. Ordering Provider: TERRENCE CHAUHAN Report Released Date/Time: August 07, 2022 02:21 PM Reporting Lab: [facility] [address] Performing Lab: [facility] [address] [place] [facility] CBC PLATELET MEAN VOLUME [ENTITIC VOLUME] IN BLOOD BY AUTOMATED COUNT 9.6 7.4 - 10.4 07/16 Specimen Type: BLOOD No comment entered. Ordering Provider: TERRENCE CHAUHAN Report Released Date/Time: August 07, 2022 02:21 PM Reporting Lab: [facility] [address] Performing Lab: [facility] [address] [place] [facility] CBC ERYTHROCYT E DISTRIBUTI ON WIDTH [RATIO] BY AUTOMATED COUNT 14.1 11.5 - 14.5 07/16 Specimen Type: BLOOD No comment entered. Ordering Provider: TERRENCE CHAUHAN Report Released Date/Time: August 07, 2022 02:21 PM Reporting Lab: [facility] [address] Performing Lab: [facility] [address] [place] [facility] LIVER FUNCTION TESTS BILIRUBIN. TOTAL [MASS/VOLU ME] IN SERUM OR PLASMA 0.8 0.2 - 1.2 04/11 /2024 Specimen Type: PLASMA No comment entered. Ordering Provider: TERRENCE CHAUHAN Report Released Date/Time: August 07, 2022 02:21 PM Reporting Lab: [facility] [address] Performing Lab: [facility] [address] [place] [facility] LIVER FUNCTION TESTS ALKALINE PHOSPHATAS E [ENZYMATIC ACTIVITY/V OLUME] IN SERUM OR PLASMA 52 40 - 150 07/16 Specimen Type: PLASMA No comment entered. Ordering Provider: TERRENCE CHAUHAN Report Released Date/Time: August 07, 2022 02:21 PM Reporting Lab: [facility] [address] Performing Lab: [facility] [address] [place] [facility] LIVER FUNCTION TESTS ALANINE AMINOTRANS FERASE [ENZYMATIC ACTIVITY/V OLUME] IN SERUM OR PLASMA 20 <55 - 55 07/16 Specimen Type: PLASMA No comment entered. Ordering Provider: TERRENCE CHAUHAN Report Released Date/Time: August 07, 2022 02:21 PM Reporting Lab: [facility] [address] Performing Lab: [facility] [address] [place] [facility] LIVER FUNCTION TESTS ASPARTATE AMINOTRANS FERASE [ENZYMATIC ACTIVITY/V OLUME] IN SERUM OR PLASMA 19 <34 - 34 07/16 Specimen Type: PLASMA No comment entered. Ordering Provider: TERRENCE CHAUHAN Report Released Date/Time: August 07, 2022 02:21 PM Reporting Lab: [facility] [address] Performing Lab: [facility] [address] [place] [facility] LIVER FUNCTION TESTS GAMMA GLUTAMYL TRANSFERAS E [ENZYMATIC ACTIVITY/V OLUME] IN SERUM OR PLASMA 38 <64 - 64 07/16 Specimen Type: PLASMA No comment entered. Ordering Provider: TERRENCE CHAUHAN Report Released Date/Time: August 07, 2022 02:21 PM Reporting Lab: [facility] [address] Performing Lab: [facility] [address] [place] [facility] PSA PROSTATE SPECIFIC AG [MASS/VOLU ME] IN SERUM OR PLASMA 3.84 <4.00 - 4.00 07/16 Specimen Type: SERUM No comment entered. Ordering Provider: TERRENCE CHAUHAN Report Released Date/Time: August 07, 2022 02:21 PM Reporting Lab: [facility] [address] Performing Lab: [place] [phone] [facility] CREATINI NE(INCLU SATHYA EGFR) CREATININE [MASS/VOLU ME] IN SERUM OR PLASMA 1.2 0.7 - 1.2 04/16 Specimen Type: PLASMA No comment entered. Ordering Provider: HUYEN HYLTON Report Released Date/Time: Mar 07, 2023 02:00 PM Reporting Lab: [place] [address] Performing Lab: [address] [facility] CREATINI NE(INCLU SATHYA EGFR) GLOMERULAR FILTRATION RATE/1.73 SQ M.PREDICTE D [VOLUME RATE/AREA] IN SERUM, PLASMA OR BLOOD BY CREATININE -BASED FORMULA (CKD-EPI 2020) 62 60 04/16 Specimen Type: PLASMA No comment entered. Ordering Provider: HUYEN HYLTON Report Released Date/Time: Mar 07, 2023 02:00 PM Reporting Lab: [facility] [address] Performing Lab: [place] [address] [facility] AST/SGOT ASPARTATE AMINOTRANS FERASE [ENZYMATIC ACTIVITY/V OLUME] IN SERUM OR PLASMA 22 <34 - 34 04/16 Specimen Type: PLASMA No comment entered. Ordering Provider: HUYEN HYLTON Report Released Date/Time: Mar 07, 2023 02:00 PM Reporting Lab: [facility] [address] Performing Lab: [facility] [address] [facility] CBC LEUKOCYTES [#/VOLUME] IN BLOOD BY AUTOMATED COUNT 8.06 4.0 - 11.0 04/16 Specimen Type: BLOOD No comment entered. Ordering Provider: HUYEN HYLTON Report Released Date/Time: Mar 07, 2023 02:00 PM Reporting Lab: [address] Performing Lab: [address] [place] [facility] CBC ERYTHROCYT ES [#/VOLUME] IN BLOOD BY AUTOMATED COUNT 4.03 4.6 - 6.2 04/16 L Specimen Type: BLOOD No comment entered. Ordering Provider: HUYEN HYLTON Report Released Date/Time: Mar 07, 2023 02:00 PM Reporting Lab: [address] Performing Lab: [place] [id number] [place] [facility] CBC HEMOGLOBIN [MASS/VOLU ME] IN BLOOD 13.1 13.5 - 17.9 04/16 L Specimen Type: BLOOD No comment entered. Ordering Provider: HUYEN HYLTON Report Released Date/Time: Mar 07, 2023 02:00 PM Reporting Lab: [place] [address] Performing Lab: [place] [address] [place] [facility] CBC HEMATOCRIT [VOLUME FRACTION] OF BLOOD BY AUTOMATED COUNT 38.9 41 - 54 04/16 L Specimen Type: BLOOD No comment entered. Ordering Provider: HUYEN HYLTON Report Released Date/Time: Mar 07, 2023 02:00 PM Reporting Lab: [facility] [address] Performing Lab: [facility] [address] [place] [facility] CBC MCV [ENTITIC VOLUME] BY AUTOMATED COUNT 96.5 80 - 100 04/16 Specimen Type: BLOOD No comment entered. Ordering Provider: HUYEN HYLTON Report Released Date/Time: Mar 07, 2023 02:00 PM Reporting Lab: [facility] [address] Performing Lab: [address] [place] [facility] CBC MCH [ENTITIC MASS] BY AUTOMATED COUNT 32.5 27 - 33 04/16 Specimen Type: BLOOD No comment entered. Ordering Provider: HUYEN HYLTON Report Released Date/Time: Mar 07, 2023 02:00 PM Reporting Lab: [facility] [address] Performing Lab: [facility] [address] [place] [facility] CBC MCHC [MASS/VOLU ME] BY AUTOMATED COUNT 33.7 32.0 - 37.5 04/16 Specimen Type: BLOOD No comment entered. Ordering Provider: HUYEN HYLTON Report Released Date/Time: Mar 07, 2023 02:00 PM Reporting Lab: [facility] [address] Performing Lab: [facility] [address] [facility] CBC PLATELETS [#/VOLUME] IN BLOOD BY AUTOMATED COUNT 157 150 - 400 04/16 Specimen Type: BLOOD No comment entered. Ordering Provider: HUYEN HYLTON Report Released Date/Time: Mar 07, 2023 02:00 PM Reporting Lab: [facility] [address] Performing Lab: [facility] [address] [facility] CBC PLATELET MEAN VOLUME [ENTITIC VOLUME] IN BLOOD BY AUTOMATED COUNT 9.7 7.4 - 10.4 04/16 Specimen Type: BLOOD No comment entered. Ordering Provider: HUYEN HYLTON Report Released Date/Time: Mar 07, 2023 02:00 PM Reporting Lab: [facility] [address] Performing Lab: [facility] [address] [facility] CBC ERYTHROCYT E DISTRIBUTI ON WIDTH [RATIO] BY AUTOMATED COUNT 14.5 11.5 - 14.5 04/16 Specimen Type: BLOOD No comment entered. Ordering Provider: HUYEN HYLTON Report Released Date/Time: Mar 07, 2023 02:00 PM Reporting Lab: [facility] [address] Performing Lab: [facility] [address] [facility] ALT/SGPT ALANINE AMINOTRANS FERASE [ENZYMATIC ACTIVITY/V OLUME] IN SERUM OR PLASMA 19 <55 - 55 04/16 Specimen Type: PLASMA No comment entered. Ordering Provider: HUYEN HYLTON Report Released Date/Time: Mar 07, 2023 02:00 PM Reporting Lab: [facility] [address] Performing Lab: [facility] [address] [place] [facility] Vital Signs Combined list of inpatient [...] DC Date Status Disposition Source [place] [facility] Outpatient Encounter [id number] 02/13 [facility] [place] [facility] Outpatient Encounter [id number] OLESYA ROGERS 02/14 [facility] [place] [facility] Outpatient Encounter [id number] 02/14 [facility] [place] [facility] Outpatient Encounter [id number] 04/24 [facility] EMERGENCY DEPT VISIT [place] MDM [id number] Diagnos is: ICD-10- CM Z76.0 Encount er for issue of repeat prescri ption<b r/> AICHA GALLEGOS 05/09 [facility] Outpatient Encounter [id number] 05/09 [facility] Encounter [id number] 06/12 [facility] [place] [facility] Outpatient Encounter [id number] 07/15 [facility] [place] [facility] OFFICE O/P EST MOD 30-39 MIN [id number] Diagnos is: ICD-10- CM Z00.01 Encount er for general adult medical exam w abnorma l finding s
RILEYDANETTE LY E 08/07 [place] [facility] [place] [facility] Out[place] Encounter [id number] 08/07 [place] [facility] [place] [facility] Outpatient Encounter [id number] OLESYA ROGERS HIA M 08/12 [place] [facility] [place] [facility] Outpatient Encounter [id number] OLESYA ROGERSA M 08/12 [place] [facility] [place] [facility] Outpatient Encounter [id number] Ana CHAUHAN 09/12 [place] [facility] [place] [facility] Outpatient Encounter [id number] 11/06 [place] [facility] [place] [facility] Outpatient Encounter [id number] 12/08 [place] [facility] [place] [facility] Outpatient Encounter [id number] 12/12 [place] [facility] [place] [facility] Outpatient Encounter [id number] 01/17 [place] [facility] [place] [facility] Outpatient Encounter [id number] 02/19 [place] [facility] [place] [facility] Outpatient Encounter [id number] 02/24 [place] [facility] [place] [facility] Outpatient Encounter [id number] 03/07 [place] [facility] [place] [facility] QNHP OL DIG ASSMT&MGMT 5-10 [id number] Diagnos is: ICD-10- CM Z79.01 casino porter (curren t) use of anticoa gulants
ELLEN GARCIA 05/29 [facility] [place] [facility] OFFICE O/P EST MOD 30 MIN [id number] Diagnos is: ICD-10- CM Z00.01 Encount er for general adult medical exam w abnorma l finding s
Ana CHAUHAN 07/16 [facility] Outpatient Encounter [id number] 07/17 [facility] Social History Combined list of available smoking, tobacco, and other social history from Department of Defense and Veterans Affairs facilities. Social History Type Response Date Comment Sourc e Tobacco smoking status [facility]-TOBACCO FORMER USER 07/17/2023 [facility] of [facility] 07/17/2023 [facility] History [facility] tobacco use [place] FORMER USER 08/07/2022 [facility] History of tobacco use [place]-TO[place]ACCO FORMER USER 10/16/2020 [facility] History of [facility] NO 03/29/2019 [facility] History of tobacco use [place]-TOBACCO USE WI 30 MIN OF WAKEUP 02/17/2018 [facility] History of tobacco use CURRENT TOBACCO USER 02/12/2017 [facility] History of tobacco use CURRENT TOBACCO USER 04/25/2015 [facility] History of tobacco use CURRENT TOBACCO USER 04/21/2014 [facility] History of tobacco use CURRENT TOBACCO USER 04/20/2013 [facility] History of tobacco use CURRENT TOBACCO USER 03/20/2012 [facility] History of tobacco use CURRENT TOBACCO USER 02/06/2011 [facility] History of tobacco use CURRENT TOBACCO USER 01/02/2010 [facility]
--- OUTSIDE RECORDS SUMMARY | 2023-08-13 10:14 | XMS_ITS | Data Portability ---
Author Name Unknown Address [address] [place] [address] Phone [phone] Organization [place] [facility], [employer] Address [address] [place] [address] Assessment Encounter Date Assessment Date Assessment LastModified [...] user Active 2015 Tobacco user; Original Code: 816403611 Origi nal Codesystem: SNOMED CT Classificati on: Medical Confirm ation Status: Probable Not Available [facility] 09[facility]17 Onychomycosis of toenails Active 2015 Onychomycosis of toenails; Original Code: 8384958673 Orig inal Codesystem: SNOMED CT Classificati on: Medical Confirm ation Status: Confirmed Not Available [facility] 09:10:17 Heart disease Active 2021 Heart disease; Original Code: 80627632 Origin al Codesystem: SNOMED CT Classificati on: Medical Confirm ation Status: Confirmed Not Available [facility] 09:10:17 Corns and callus Active 2015 Corns and callus; Original Code: 276391179 Origi nal Codesystem: SNOMED CT Classificati on: Medical Confirm ation Status: Confirmed Not Available [facility] 09:10:17 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; Original Code: 1776516288 Orig inal Codesystem: SNOMED CT Classificati on: Medical Confirm ation Status: Confirmed Not Available [facility] 09:10:17 Foot pain Active 2015 Foot pain; Original Code: 690542408 Origi nal Codesystem: SNOMED CT Classificati on: Medical Confirm ation Status: Confirmed Not Available [facility] 09:10:17 Acquired hallux valgus Active 2015 Acquired hallux valgus; Original Code: 571375204 Origi nal Codesystem: SNOMED CT Classificati on: Medical Confirm ation Status: Confirmed Not Available [facility] 09:10:17 Acquired hallux malleus Active 2015 Acquired hallux malleus; Original Code: 19152148 Origin al Codesystem: SNOMED CT Classificati on: Medical Confirm ation Status: Confirmed Not Available [facility] 09:10:17 Atrial fibrillation Active 2015 Atrial fibrillation; Original Code: 22245106 Origin al Codesystem: SNOMED CT Classificati on: Medical Confirm ation Status: Confirmed Not Available [facility] 09:10:17 Hypertensive disorder Active 2015 Hypertensive disorder; Original Code: 4017841619 Orig inal Codesystem: SNOMED CT Classificati on: Medical Confirm ation Status: Confirmed Not Available [facility] 09:10:17 Notes:H/O: anticoagulant the bharti Original Code: 048106938 Original Codesystem: SNOMED CT Classification: Medical Confirmation Status: Confirmed Problem Notes None recorded. Procedures Surgical History Date Name Laterality Status Provider Name and Address Organization Details Recorded Time 10/24/[address] Hong Andres, DIANE [address] [place] [address], [phone], [facility] 10/23/2022 11:44:57 07/25/[address] Hong Andres DPM [address] [place] [address], [phone], [facility] 07/24/2022 10:35:10 04/24/[address] Hong Andres DPM [address] [place] [address], [phone], [facility] 04/24/2022 11:13:18 Imaging [...] Updated DateTime 04/24/2022 190.5 cm 25 kg/m2 65057.47 g Mamta ness [facility] 04/24/2022 10:32:58 Social History None recorded. Functional Status None recorded. Mental Status None recorded. Family History Nothing Reported. Medical History No medical history recorded. Past Encounters Encounter ID Performer Location Encounter Start Date Encounter Closed Date Diagnosis/Indication Diagnosis SNOMED-CT Code [id number] Too Andres DPM [facility] [address] [place] [address] 04/24/2022 10:31:04 04/24/2022 13:46:36 Onychomycosis 621476493 Peripheral vascular disease [id number] Too Andres DPM [facility] [address] [place] [address] 07/24/2022 10:14:25 07/25/2022 09:45:42 Onychomycosis 750872783 Peripheral vascular disease [id number] 7314 Too Andres DPM [facility] [address] [place] [address] 10/23/2022 10:13:43 10/24/2022 09:44:58 Onychomycosis 221996495 Peripheral vascular disease 241612937 Health Concerns Section Related Observation LastModified by Organization Detai ls LastModified Time None Recorded Concern Status LastModified by Organization Details LastModified Time None Recorded Advance Directives Directive None Recorded Payers Encounter Date Sequence Insurance Name Policy Number Policy Kevin Covered Member ID Kevin Member ID Guarantor Name 10/23/2022 1 [place] [id number] Bola Zurita [id number] Bola Zurita 07/24/2022 1 [place] [id number] Bola Zurita [id number] Bola Zurita 04/24/2022 1 [place] [id number] Bola Zurita [id number] Bola Zurita Notes Date Note Type Note Provider Name and Address Organization Details Recorded Time 04/24/2022 text/html HPI Notes: Pawel salmeron is a 77 year old male established patient who presents with the chief complaint. Presents today for evaluation of problematic toenails and feet in general. They relate chronic thickening and deformity to their toenails that has not responded to self-trimming, topical deui-tja-kjeuibu anti-fungal therapy, foot soaks, and other similar conservative treatments. Nails are painful with catching on shoegear and socks. Denies any recent foot injury or infection. Claudication symptoms: No Burning symptoms: No Paresthesia: Subjective numbness to the left lower extremity consistent with his previous surgical procedures performed through [facility] surgery in the [facility] Patient presents for further evaluation and treatment options. Too Andres DPM [address] [place], [address], [facility] 04/24/2022 11:14:44 07/24/2022 text/html HPI Notes: Pawel salmeron is a 77 year old male established patient who presents with the chief complaint. Presents today for evaluation of problematic toenails and feet in general. They relate chronic thickening and deformity to their toenails that has not responded to self-trimming, topical ytsr-bfk-hzpmzph anti-fungal therapy, foot soaks, and other similar conservative treatments. Nails are painful with catching on shoegear and socks. Denies any recent foot injury or infection. Claudication symptoms: No Burning symptoms: No Paresthesia: Subjective numbness to the left lower extremity consistent with his previous surgical procedures performed through [facility] in [facility] Patient presents for further evaluation and treatment options. Too Andres DPM [address] [place], [address], [facility] 07/24/2022 10:35:54 10/23/2022 text/html HPI Notes: Pawel salmeron is a 77 year old male established patient who presents with the chief complaint. Presents today for evaluation of problematic toenails and feet in general. They relate chronic thickening and deformity to their toenails that has not responded to self-trimming, topical ekbf-job-vdziwje anti-fungal therapy, foot soaks, and other similar conservative treatments. Nails are painful with catching on shoegear and socks. Denies any recent foot injury or infection. Claudication symptoms: No Burning symptoms: No Paresthesia: Subjective numbness to the left lower extremity consistent with his previous surgical procedures performed through [facility] in [facility] Patient presents for further evaluation and treatment options. Too Andres DPM [address] [place], [address], [facility] 10/23/2022 11:45:19
== END 2023-08-13 10:12 | disposition home or self-care (01) ==
LOC: WOUND 10:11
PROVIDERS: PCP Family Medicine; Visit Provider Nurse Practitioner Family
DX: Z48.00 Encounter for change or removal of nonsurgical wound dressing (principal); L02.212 Cutaneous abscess of back [any part, except buttock and flank]; L72.0 Epidermal cyst
CPT/HCPCS: G0463

== ENCOUNTER 2023-08-15 15:15 | Outpatient (CLI) | payer MEDICARE, BC, SELFPAY ==
--- OUTSIDE RECORDS SUMMARY | 2023-08-15 15:17 | XMS_ITS | Clinical Summary ---
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 LLE angiogram 2. 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 Panlobular emphysema 10/21/2018 COPD exacerbation 09/09/2018 [...] Department Care Team Description 08/05/2023 Lab Requisition [facility] [phone] Unknown, Doctor 08/04/2023 8:35 AM CDT Office Visit [facility] [address] [place] [address] Jena Pascual PA Follow Up (Boil) 08/04/2023 Travel 08/01/2023 8:35 AM CDT Office Visit [facility] [address] [place] [address] Jena Pascual PA Derm Problem 08/01/2023 Travel [...] T Respiratory Rate 18 03/17/2023 3:35 PM A P MANAGER Oxygen Saturation 96% 08/04/2023 8:35 AM CDT Inhaled Oxygen Concentration - - Weight 90.7 kg (200 lb) 08/04/2023 8:35 AM CDT Height 190.5 cm (6' 3) 03/17/2023 2:07 PM A P MANAGER Body Mass Index 25 03/17/2023 2:07 PM A P MANAGER Plan of Treatment Health Maintenance Due Date [...] back ANTI HCV Routine 05/16/2021 3:20 PM A P MANAGER Need for hepatitis C screening test CT CHEST WO Routine 08/29/2010 4:53 PM CDT Pulmonary nodules from Last 3 Months or Most Recently Relevant to Health Maintenance Results * LAB TRACKING EVENT (08/05/2023 2:01 PM CDT) Other (Other) Client Collect / Unknown 08/05/2023 2:01 PM CDT 08/05/2023 9:37 PM CDT Doctor Unknown LAB BILL ONLY [facility] [address] [place] [place] [address], * PATH TISSUE EXAM (08/05/2023 2:01 PM CDT) Case Report Pathology Report ?Case: [id number] ? Authorizing Provider: ??Unknown, Doctor ?Collected: ? 08/05/2023 1401 ? Ordering Location: ? [facility] ?Received: ?08/06/2023 1013 ? Pathologist: ? Jose Rinaldi MD ? Specimen: ?Back ? 08/07/2023 4:47 PM CDT [facility] Final Diagnosis A) SKIN, BACK, CYST, EXCISION: 1. Epidermoid cyst 2. Negative for dysplasia or malignancy 08/07/2023 4:47 PM CDT [facility] Clinical Information back cyst 08/07/2023 4:47 PM CDT [facility] Gross Description A) Received in formalin, labeled with the patient's name and date of , is a 1.5 x 1.1 x 0.3 cm aggregate of pale-garcia cyst wall fragments admixed with garcia-white soft, friable cyst contents. ??The specimen is filtered and submitted entirely in 1 cassette. [facility] 08/06/2023 08/07/2023 4:47 PM CDT [facility] Microscopic Description The final diagnosis is based on microscopic examination of appropriate sections of all specimens. 08/07/2023 4:47 PM CDT [facility] Additional Information Interpreted at [facility] - [address], [place] [address] 08/07/2023 4:47 PM CDT [facility] Other (Back) 08/05/2023 2:01 PM CDT 08/06/2023 10:13 AM CDT Doctor Unknown PATHOLOGY/CYTOLOGY [facility] [address] [place] [address], * AEROBIC BACTERIAL CULTURE, STAIN (08/01/2023 9:30 AM CDT) CULTURE No Growth. 08/03/2023 3:00 PM CDT [facility] GRAM STAIN 4+ RBCs 08/03/2023 3:00 PM CDT [facility] GRAM STAIN 1+ PMNs 08/03/2023 3:00 PM CDT [facility] GRAM STAIN No Epithelial cells 08/03/2023 3:00 PM CDT [facility] GRAM STAIN 4+ Gram Positive Cocci 08/03/2023 3:00 PM CDT [facility] GRAM STAIN 3+ Gram Negative Bacilli 08/03/2023 3:00 PM CDT [facility] Other (Other) Non-Blood / Unknown 08/01/2023 9:30 AM CDT 08/01/2023 9:31 AM CDT Jena RICHARDSON MICROBIOLOGY [facility] [address] [place] [address], * ANTI HCV (05/16/2021 3:20 PM A P MANAGER) HEPATITIS C ANTIBODY Non-React edelmira Non-React edelmira 05/17/2021 1:21 AM A P MANAGER [facility] Comment:Antibodies to HCV no t detected; does not exclude the possibility of exposure to HCV. Blood BLOOD SPECIMEN / Unknown Venipuncture / Unknown 05/16/2021 3:20 PM A P MANAGER 05/16/2021 3:25 PM A P MANAGER Zak Garcia MD SEND OUTS [facility] [address] [place] [address], * CT CHEST WO CONTRAST (08/29/2010 4:53 [...] Comments Code Status Discussion: Discussed Care Teams Computer Trainer Relationship Specialty Start Date End Date Klever Monte MD [address] [place] [address] PCP - General Family Practice 06/12/22
--- OUTSIDE RECORDS SUMMARY | 2023-08-15 15:18 | XMS_ITS | Continuity of Care Document ---
Author Name [facility] Organization [facility] Care Team Providers Care Hydrometallurgical Engineer Name Role Phone [facility] Unavailable Unavailable Problems Combined list of problems from Department of Defense and Veterans Affairs facilities. It does not include entries that were removed or entered in error. Problem Status Onset Date Problem Type Date of Resolution Comments Source CVD - Cerebrovascular Disease ([facility] 57406393) Active 03/19/20 20 Condition May 01, 2020 Entered By: YOAV CHAUHAN Comment: 03/19/20: L MCA CVA, Admit ANW. Cardio-embol ic d/t Warfarin DC [facility] CAD - Coronary Artery Disease ([facility] 43074946) Active 01/27/20 20 Condition Mar 13, 2020 Entered By: YOAV CHAUHAN Comment: 01/27/20: LAD and Dx stented w/SATHYA at [facility]. Plavix +ASA thru 01/26/21 [facility] Peripheral arterial insufficiency Active 01/21/20 20 Condition Mar 13, 2020 Entered By: YOAV CHAUHAN Comment: 01/21/20: L femoral Art occlusion per [facility]-->Fem -Tibial bypass planned [facility] Allergic rhinitis (SNOMED CT 27133663) Active Condition [facility] Atrial fibrillation (SNOMED CT 30494154) Active Condition Apr 26, 2015 Entered By: YOAV CHAUHAN Comment: Warfarin through Miry[facility] Rodriguez [facility] Co-Managed Care Active Condition Dec 25, 2017 Entered By: YOAV CHAUHAN Comment: Dr Garcia, Michael [place], F: [phone] , [facility] COPD - Chronic Obstructive Pulmonary Disease ([facility] 22439250) Active Condition Dec 25, 2017 Entered By: YOAV CHAUHAN Comment: Mometasone & Albuterol MDI's [facility] Baker of toe Active Condition Sep 08, 2019 Entered By: YOAV CHAUHAN Comment: R middle toe [facility] Current smoker Active Condition Apr 082015 Entered By: YOAV CHAUHAN Comment: Cigars, not cigarettes [facility] Essential hypertension (SNOMED CT 06250449) Active Condition [facility] Glucose intolerance Active Condition [facility] Nocturia due to benign prostatic hypertrophy Active Condition [facility] Health Maintenance (ICD-9-CM V65.9) Inactive Condition 04/26/2015 BELGICA MANCILLA [facility] Diagnosis: ICD-10-CM Z00.01 Encounter for general adult medical exam w abnormal findings [facility] Diagnosis: 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 [facility] Diagnosis: ICD-10-CM Z76.0 Encounter for issue of repeat prescription Active Diagnosis [facility] Medications Combined list of outpatient medications [...] S OF BREATH INHALA TION HOLD 07/17/2024 [id number] AFRICA CHAUHAN 2023 2 [facility] ALBUTEROL 90MCG/ACTUA T (CFC-F) INHL,ORAL,8 .5GM DOSE COUNTER INHALE 2 PUFFS BY INHALATI ON FOUR TIMES A DAY NEEDED FOR SHORTNES S OF BREATH INHALA TION DISCONT INUED 08/08/2023 [id number] 3 AFRICA CHAUHAN 2022 2 [facility] APIXABAN 5MG TAB TAKE ONE TABLET BY MOUTH EVERY 12 HOURS TO PREVENT BLOOD CLOTS AND STROKE (ELIQUIS ) ORALLY ACTIVE 05/29/2024 [id number] MARIANO GARCIA 2023 180 [facility] APIXABAN 5MG TAB TAKE ONE TABLET BY MOUTH EVERY 12 HOURS TO PREVENT BLOOD CLOTS AND STROKE (ELIQUIS ) ORALLY DISCONT INUED 05/09/2023 [id number] 3 MARIANO GARCIA 2022 180 [facility] CHOLECALCIF JONNA 25MCG (1,000UNIT) TAB TAKE FIVE TABLETS BY MOUTH QOD ORALLY ACTIVE AFRICA CHAUHAN 2016 [facility] FLUOCINONID E 0.1% CREAM,TOP APPLY A THIN LAYER TOPICALL Y TWICE A DAY NEEDED FOR RASH TOPICA LLY ACTIVE 12/13/2023 [id number] 3 AFRICA CHAUHAN 2022 60 [facility] FLUTICASONE 250MCG/SALM ETEROL 50MCG INHL,ORAL,D ISKUS,60 INHALE 1 PUFF BY INHALATI ON TWICE A DAY FOR COPD INHALA TION ACTIVE 07/17/2024 [id number] 4 AFRICA CHAUHAN 2023 3 [facility] FLUTICASONE 250MCG/SALM ETEROL 50MCG INHL,ORAL,D ISKUS,60 INHALE 1 PUFF BY INHALATI ON TWICE A DAY FOR COPD THIS REPLACES YOUR MOMETASO NE INHALA TION DISCONT INUED 08/08/2023 [id number] 4 AFRICA CHAUHAN 2022 3 [facility] FUROSEMIDE 20MG TAB TAKE ONE TABLET BY MOUTH THREE TIMES A WEEK FOR HEART FAILURE ORALLY ACTIVE 02/25/2024 [id number] 3 Hong DONAHUE 2022 39 [facility] FUROSEMIDE 20MG TAB TAKE ONE TABLET BY MOUTH EVERY OTHER DAY FOR HEART FAILURE ORALLY DISCONT INUED (EDIT) 08/13/2023 [id number] 3 AFRICA CHAUHAN 2022 45 [facility] FUROSEMIDE 20MG TAB TAKE ONE TABLET BY MOUTH EVERY MORNING FOR HEART FAILURE ORALLY DISCONT INUED 08/08/2023 [id number] 3 AFRICA CHAUHAN 2022 90 [facility] FUROSEMIDE 20MG TAB TAKE ONE TABLET BY MOUTH EVERY MORNING FOR HEART FAILURE ORALLY DISCONT INUED 11/16/2022 [id number] 3 AFRICA CHAUHAN 2021 90 [facility] HYDROCHLORO THIAZIDE 12.5MG TAB TAKE ONE TABLET BY MOUTH EVERY DAY FOR BLOOD PRESSURE ORALLY DISCONT INUED 08/08/2023 [id number] 3 AFRICA CHAUHAN 2022 90 [facility] METOPROLOL SUCCINATE 100MG TAB,SA TAKE ONE AND ONE-HALF TABLETS BY MOUTH EVERY DAY ORALLY DISCONT INUED 11/16/2022 [id number] 3 AFRICA CHAUHAN 2021 135 [facility] METOPROLOL SUCCINATE 50MG TAB,SA TAKE THREE TABLETS BY MOUTH EVERY DAY FOR BLOOD PRESSURE ORALLY DISCONT INUED 08/08/2023 [id number] 3 AFRICA CHAUHAN 2022 270 [facility] METOPROLOL TARTRATE 100MG TAB TAKE ONE TABLET BY MOUTH TWICE A DAY FOR BLOOD PRESSURE ORALLY ACTIVE 12/13/2023 [id number] 4 AFRICA CHAUHAN 2022 180 [facility] MOMETASONE FUROATE 220MCG/INHL INHL,ORAL,6 0 INHALE 1 PUFF BY MOUTH TWICE A DAY TO PREVENT TROUBLE BREATHIN G TWIST COVER ON AND OFF TO LOAD NEXT DOSERI NSE MOUTH AFTER USING * DO NOT WASH INHALER ORALLY DISCONT INUED 11/16/2022 [id number] 3 AFRICA CHAUHAN 2021 3 [facility] NIFEDIPINE (EQV-CC) 60MG TAB,SA TAKE ONE TABLET BY MOUTH EVERY DAY FOR BLOOD PRESSURE ORALLY DISCONT INUED BY PROVIDE R 08/08/2023 [id number] 3 AFRICA CHAUHAN 2022 90 [facility] NIFEDIPINE (EQV-CC) 60MG TAB,SA TAKE ONE TABLET BY MOUTH EVERY DAY FOR BLOOD PRESSURE ORALLY DISCONT INUED 09/11/2022 [id number] 3 AFRICA CHAUHAN 2022 90 [facility] NIFEDIPINE (EQV-CC) 60MG TAB,SA TAKE ONE TABLET BY MOUTH EVERY DAY FOR BLOOD PRESSURE ORALLY DISCONT INUED 08/28/2022 [id number] 3 AFRICA CHAUHAN 2022 90 [facility] NIFEDIPINE (EQV-CC) 90MG TAB,SA TAKE ONE TABLET BY MOUTH EVERY DAY FOR BLOOD PRESSURE ORALLY SUSPEND ED 07/17/2024 [id number] 4 AFRICA CHAUHAN 2023 90 [facility] NIFEDIPINE (EQV-CC) 90MG TAB,SA TAKE ONE TABLET BY MOUTH EVERY DAY FOR BLOOD PRESSURE INCREASE D DOSE PER CO-MANAG ED CARE INCREASE D DOSE PER CO-MANAG ED CARE ORALLY DISCONT INUED 12/13/2023 [id number] 4 AFRICA CHAUHAN 2022 90 [facility] POTASSIUM CHLORIDE 10MEQ TAB,SA TAKE ONE TABLET BY MOUTH THREE TIMES A WEEK FOR POTASSIU M SUPPLEME NT TAKE WITH FUROSEMI DE ORALLY ACTIVE 02/25/2024 [id number] 3 Hong DONAHUE A 2022 39 [facility] POTASSIUM CHLORIDE 10MEQ TAB,SA TAKE ONE TABLET BY MOUTH EVERY OTHER DAY FOR POTASSIU M SUPPLEME NT ORALLY DISCONT INUED (EDIT) 08/13/2023 [id number] 3 AFRICA CHAUHAN 2022 45 [facility] POTASSIUM CHLORIDE 10MEQ TAB,SA TAKE ONE TABLET BY MOUTH EVERY DAY FOR CONGESTI VE HEART FAILURE ORALLY DISCONT INUED 08/08/2023 [id number] 3 AFRICA CHAUHAN 2022 90 [facility] POTASSIUM CHLORIDE 10MEQ TAB,SA TAKE ONE TABLET BY MOUTH EVERY DAY FOR CONGESTI VE HEART FAILURE ORALLY DISCONT INUED 11/16/2022 [id number] 3 AFRICA CHAUHAN 2021 90 [facility] ROSUVASTATI N CA 20MG TAB TAKE ONE TABLET BY MOUTH AT BEDTIME FOR CORONARY ARTERY DISEASE ORALLY HOLD 07/17/2024 [id number] AFRICA CHAUHAN 2023 90 [facility] ROSUVASTATI N CA 20MG TAB TAKE ONE TABLET BY MOUTH AT BEDTIME FOR CORONARY ARTERY DISEASE ORALLY DISCONT INUED 08/08/2023 [id number] 4 AFRICA CHAUHAN 2022 90 [facility] TAMSULOSIN HCL 0.4MG CAP TAKE ONE CAPSULE BY MOUTH EVERY EVENING FOR PROSTATE ORALLY ACTIVE 07/17/2024 [id number] 4 AFRICA CHAUHAN 2023 30 [facility] Allergies, Adverse Reactions, Alerts Combined list of allergies from Department of Defense and Veterans Affairs facilities. It does not include entries that were removed or entered in error. Substance Category Reaction Severity Reaction type Status Date Reported Comments Source LISINOPRIL Propensity to adverse reactions to drug (finding) Cough active 0 [facility] Immunizations Combined list of available immunizations from the Department of Defense and Veterans Affairs facilities. Immunization Series Date Given Administered By Site Reaction Lot Number CVX Code Drug Oceanographer Assistant Status Comments Source COVID-19 (FaceOn Mobile), MRNA, LNP-S, BIVALENT, PF, 30 MCG/0.3 ML DOSE 2022 300 complet ed [facility] COVID-19 (PFIZER), MRNA, LNP-S, PF, 30 MCG/0.3 ML DOSE, JAMES-SUCROSE (AGES 12+ YEARS) 2021 217 complet ed [facility] COVID-19 (PFIZER), MRNA, LNP-S, PF, 30 MCG/0.3 ML DOSE 2020 208 complet ed [facility] ZOSTER RECOMBINANT 2 2020 187 complet ed [facility] INFLUENZA VACCINE, QUADRIVALENT, ADJUVANTED 2020 205 complet ed [facility] INFLUENZA, UNSPECIFIED FORMULATION 2020 88 complet ed [facility] ZOSTER RECOMBINANT 1 2020 187 complet ed [facility] COVID-19 (FaceOn Mobile), MRNA, LNP-S, PF, 30 MCG/0.3 ML DOSE 2 2020 208 complet ed [facility] COVID-19 (PFIZER), MRNA, LNP-S, PF, 30 MCG/0.3 ML DOSE 1 2020 208 complet ed [facility] INFLUENZA VACCINE, QUADRIVALENT, ADJUVANTED 2019 205 complet ed [facility] INFLUENZA, TRIVALENT, ADJUVANTED 2018 168 complet ed [facility] INFLUENZA, SEASONAL, INJECTABLE 2018 141 complet ed [facility] INFLUENZA, SEASONAL, INJECTABLE 2017 141 complet ed [facility] INFLUENZA, TRIVALENT, ADJUVANTED 2017 168 complet ed [facility] INFLUENZA, HIGH DOSE SEASONAL 2016 135 complet ed [facility] PNEUMOCOCCAL POLYSACCHARID E PPV23 2016 33 complet ed [employer] , [id number], 06/03/18 [facility] TD (ADULT), 2 LF TETANUS TOXOID, PRESERVATIVE FREE, ADSORBED 2016 09 complet ed [employer] [id number], 12/19/18 [facility] INFLUENZA, HIGH DOSE SEASONAL 2016 135 complet ed [facility] PNEUMOCOCCAL POLYSACCHARID E PPV23 2016 33 complet ed [facility] INFLUENZA, HIGH DOSE SEASONAL 2015 135 complet ed [facility] PNEUMOCOCCAL CONJUGATE PCV 13 2015 133 complet ed [employer] [facility] PNEUMOCOCCAL CONJUGATE PCV 13 2014 133 complet ed [facility] INFLUENZA, UNSPECIFIED FORMULATION 2013 88 complet ed [facility] INFLUENZA, UNSPECIFIED FORMULATION 2013 88 complet ed [facility] INFLUENZA, UNSPECIFIED FORMULATION 2011 88 complet ed [facility] INFLUENZA, UNSPECIFIED FORMULATION 2010 88 complet ed [facility] PNEUMOCOCCAL, UNSPECIFIED FORMULATION 2009 109 complet ed [employer],093 02,10/21/ 011 [facility] TDAP 2009 115 complet ed [facility] ZOSTER LIVE 2008 121 complet ed [facility] TDAP 2007 115 complet ed private [facility] ZOSTER LIVE 2006 121 complet ed [facility] Results Combined list of recent [...] Jul 17, 2023 04:23 PM Reporting Lab: [facility] [address] Performing Lab: [facility] [address] [facility]INAL[facility] IS SPECIFIC GRAVITY OF URINE 1.006 1.003 - 1.035 07/16 Specimen Type: URINE No comment entered. Ordering Provider: TERRENCE CHAUHAN Report Released Date/Time: Jul 17, 2023 04:23 PM Reporting Lab: [facility] [address] Performing Lab: [facility] [address] [facility] URINALYS IS BILIRUBIN. TOTAL [PRESENCE] IN URINE BY TEST STRIP NEGATIVE 07/16 Specimen Type: URINE No comment entered. Ordering Provider: TERRENCE CHAUHAN Report Released Date/Time: Jul 17, 2023 04:23 PM Reporting Lab: [facility] [address] Performing Lab: [facility] [address] [facility] IS KETONES [MASS/VOLU ME] IN URINE BY TEST STRIP NEGATIVE 07/16 Specimen Type: URINE No comment entered. Ordering Provider: TERRENEC CHAUHAN Report Released Date/Time: Jul 17, 2023 04:23 PM Reporting Lab: [facility] [address] Performing Lab: [facility] [address] [facility] URINALYS IS GLUCOSE [MASS/VOLU ME] IN URINE BY TEST STRIP NEGATIVE 07/16 Specimen Type: URINE No comment entered. Ordering Provider: TERRENCE CHAUHAN Report Released Date/Time: Jul 17, 2023 04:23 PM Reporting Lab: [facility] [address] Performing Lab: [address] [place] [facility] URINALYS IS PROTEIN [MASS/VOLU ME] IN URINE BY TEST STRIP NEGATIVE 07/16 Specimen Type: URINE No comment entered. Ordering Provider: TERRENCE CHAUHAN Report Released Date/Time: Jul 17, 2023 04:23 PM Reporting Lab: [facility] [address] Performing Lab: [facility] [address] [place] [facility] URINALYS IS PH OF URINE BY TEST STRIP 7.0 5.0 - 8.0 07/16 Specimen Type: URINE No comment entered. Ordering Provider: TERRENCE CHAUHAN Report Released Date/Time: Jul 17, 2023 04:23 PM Reporting Lab: [facility] [address] Performing Lab: [facility] [address] [place] [facility] URINALYS IS LEUKOCYTES [#/AREA] IN URINE SEDIMENT BY MICROSCOPY HIGH POWER FIELD <1 0 - 7 07/16 Specimen Type: URINE No comment entered. Ordering Provider: TERRENCE CHAUHAN Report Released Date/Time: Jul 17, 2023 04:23 PM Reporting Lab: [facility] [address] Performing Lab: [facility] [address] [place] [facility] URINALYS IS BACTERIA [PRESENCE] IN URINE SEDIMENT BY LIGHT MICROSCOPY NONE SEEN 07/16 Specimen Type: URINE No comment entered. Ordering Provider: TERRENCE CHAUHAN Report Released Date/Time: Jul 17, 2023 04:23 PM Reporting Lab: [facility] [address] Performing Lab: [facility] [address] [place] [facility] URINALYS IS ERYTHROCYT ES [#/AREA] IN URINE SEDIMENT BY MICROSCOPY HIGH POWER FIELD <1 0 - 3 07/16 Specimen Type: URINE No comment entered. Ordering Provider: TERRENCE CHAUHAN Report Released Date/Time: Jul 17, 2023 04:23 PM Reporting Lab: [facility] [address] Performing Lab: [facility] [address] [place] [facility] URINALYS IS APPEARANCE OF URINE CLEAR 07/16 Specimen Type: URINE No comment entered. Ordering Provider: TERRENCE CHAUHAN Report Released Date/Time: Jul 17, 2023 04:23 PM Reporting Lab: [facility] [address] Performing Lab: [facility] [address] [place] [facility] URINALYS IS EPITHELIAL CELLS.SQUA MOUS [#/AREA] IN URINE SEDIMENT BY MICROSCOPY HIGH POWER FIELD NONE SEEN 07/16 Specimen Type: URINE No comment entered. Ordering Provider: TERRENCE CHAUHAN Report Released Date/Time: Jul 17, 2023 04:23 PM Reporting Lab: [facility] [address] Performing Lab: [facility] [address] [place] [facility] URINALYS IS HEMOGLOBIN [PRESENCE] IN URINE BY TEST STRIP NEGATIVE 07/16 Specimen Type: URINE No comment entered. Ordering Provider: TERRENCE CHAUHAN Report Released Date/Time: Jul 17, 2023 04:23 PM Reporting Lab: [facility] [address] Performing Lab: [facility] [address] [place] [facility] URINALYS IS NITRITE [PRESENCE] IN URINE BY TEST STRIP NEGATIVE 07/16 Specimen Type: URINE No comment entered. Ordering Provider: TERRENCE CHAUHAN Report Released Date/Time: Jul 17, 2023 04:23 PM Reporting Lab: [facility] [address] Performing Lab: [facility] [address] [place] [facility] URINALYS IS LEUKOCYTE ESTERASE [PRESENCE] IN URINE BY TEST STRIP NEGATIVE 07/16 Specimen Type: URINE No comment entered. Ordering Provider: TERRENCE CHAUHAN Report Released Date/Time: Jul 17, 2023 04:23 PM Reporting Lab: [facility] [address] Performing Lab: [facility] [address] [place] [facility] HEMOGLOB IN A1C HEMOGLOBIN A1C/HEMOGL OBIN.TOTAL [...] August 07, 2022 02:21 PM Reporting Lab: [facility] [address] Performing Lab: [facility] [address] [place] [facility] BASIC METABOLI C PANEL+MG CREATININE [MASS/VOLU ME] IN SERUM OR PLASMA 1.3 0.7 - 1.2 07/16 H Specimen Type: PLASMA No comment entered. Ordering Provider: TERRENCE CHAUHAN Report Released Date/Time: August 07, 2022 02:21 PM Reporting Lab: [facility] [address] Performing Lab: [facility] [address] [place] [facility] BASIC METABOLI C PANEL+MG UREA NITROGEN [MASS/VOLU ME] IN SERUM OR PLASMA 15 8 - 26 07/16 Specimen Type: PLASMA No comment entered. Ordering Provider: TERRENCE CHAUHAN Report Released Date/Time: August 07, 2022 02:21 PM Reporting Lab: [facility] [address] Performing Lab: [facility] [address] [place] [facility] BASIC METABOLI C PANEL+MG GLUCOSE [MASS/VOLU ME] IN SERUM OR PLASMA 84 70 - 100 07/16 Specimen Type: PLASMA No comment entered. Ordering Provider: TERRENCE CHAUHAN Report Released Date/Time: August 07, 2022 02:21 PM Reporting Lab: [facility] [address] Performing Lab: [facility] [address] [place] [facility] BASIC METABOLI C PANEL+MG SODIUM [MOLES/VOL UME] IN SERUM OR PLASMA 137 136 - 145 07/16 Specimen Type: PLASMA No comment entered. Ordering Provider: TERRENCE CHAUHAN Report Released Date/Time: August 07, 2022 02:21 PM Reporting Lab: [facility] [address] Performing Lab: [facility] [address] [place] [facility] BASIC METABOLI C PANEL+MG POTASSIUM [MOLES/VOL UME] IN SERUM OR PLASMA 4.6 3.5 - 5.1 07/16 Specimen Type: PLASMA No comment entered. Ordering Provider: TERRENCE CHAHUAN Report Released Date/Time: August 07, 2022 02:21 PM Reporting Lab: [facility] [address] Performing Lab: [facility] [address] [place] [facility] BASIC METABOLI C PANEL+MG CHLORIDE [MOLES/VOL UME] IN SERUM OR PLASMA 105 98 - 107 07/16 Specimen Type: PLASMA No comment entered. Ordering Provider: TERRENCE CHAUHAN Report Released Date/Time: August 07, 2022 02:21 PM Reporting Lab: [facility] [address] Performing Lab: [facility] [address] [place] [facility] BASIC METABOLI C PANEL+MG CARBON DIOXIDE, TOTAL [MOLES/VOL UME] IN SERUM OR PLASMA 24 22 - 29 07/16 Specimen Type: PLASMA No comment entered. Ordering Provider: TERRENCE CHAUHAN Report Released Date/Time: August 07, 2022 02:21 PM Reporting Lab: [facility] [address] Performing Lab: [facility] [address] [place] [facility] BASIC METABOLI C PANEL+MG CALCIUM [MASS/VOLU ME] IN SERUM OR PLASMA 8.9 8.4 - 10.2 07/16 Specimen Type: PLASMA No comment entered. Ordering Provider: TERRENCE CHAUHAN Report Released Date/Time: August 07, 2022 02:21 PM Reporting Lab: [facility] [address] Performing Lab: [facility] [address] [place] [facility] BASIC METABOLI C PANEL+MG MAGNESIUM [MASS/VOLU ME] IN SERUM OR PLASMA 2.1 1.6 - 2.6 07/16 Specimen Type: PLASMA No comment entered. Ordering Provider: TERRENCE CHAUHAN Report Released Date/Time: August 07, 2022 02:21 PM Reporting Lab: [facility] [address] Performing Lab: [facility] [address] [place] [facility] BASIC METABOLI C PANEL+MG ANION GAP IN SERUM OR PLASMA 8 5 - 15 07/16 Specimen Type: PLASMA No comment entered. Ordering Provider: TERRENCE CHAUHAN Report Released Date/Time: August 07, 2022 02:21 PM Reporting Lab: [facility] [address] Performing Lab: [facility] [address] [place] [facility] BASIC METABOLI C PANEL+MG GLOMERULAR FILTRATION RATE/1.73 SQ M.PREDICTE D [VOLUME RATE/AREA] IN SERUM, PLASMA OR BLOOD BY CREATININE -BASED FORMULA (CKD-EPI 2020) 56 60 07/16 L Specimen Type: PLASMA No comment entered. Ordering Provider: TERRENCE CHAUHAN Report Released Date/Time: August 07, 2022 02:21 PM Reporting Lab: [facility] [address] Performing Lab: [facility] [address] [place] [facility] CBC LEUKOCYTES [#/VOLUME] IN BLOOD BY AUTOMATED COUNT 8.72 4.0 - 11.0 07/16 Specimen Type: BLOOD No comment entered. Ordering Provider: TERRENCE CHAUHAN Report Released Date/Time: August 07, 2022 02:21 PM Reporting Lab: [facility] [address] Performing Lab: [facility] [address] [place] [facility] CBC ERYTHROCYT ES [#/VOLUME] IN BLOOD BY AUTOMATED COUNT 4.11 4.6 - 6.2 07/16 L Specimen Type: BLOOD No comment entered. Ordering Provider: TERRENCE CHAUHAN Report Released Date/Time: August 07, 2022 02:21 PM Reporting Lab: [facility] [address] Performing Lab: [facility] [address] [place] [facility] CBC HEMOGLOBIN [MASS/VOLU ME] IN BLOOD 13.4 13.5 - 17.9 07/16 L Specimen Type: BLOOD No comment entered. Ordering Provider: TERRENCE CHAHUAN Report Released Date/Time: August 07, 2022 02:21 PM Reporting Lab: [facility] [address] Performing Lab: [facility] [address] [place] [facility] CBC HEMATOCRIT [VOLUME FRACTION] OF BLOOD BY AUTOMATED COUNT 39.7 41 - 54 07/16 L Specimen Type: BLOOD No comment entered. Ordering Provider: TERRENCE CHAUHAN Report Released Date/Time: August 07, 2022 02:21 PM Reporting Lab: [facility] [address] Performing Lab: [facility] [address] [place] [facility] CBC MCV [ENTITIC VOLUME] BY AUTOMATED COUNT 96.6 80 - 100 07/16 Specimen Type: BLOOD No comment entered. Ordering Provider: TERRENCE CHAUHAN Report Released Date/Time: August 07, 2022 02:21 PM Reporting Lab: [facility] [address] Performing Lab: [facility] [address] [place] [facility] CBC MCH [ENTITIC MASS] BY AUTOMATED COUNT 32.6 27 - 33 07/16 Specimen Type: BLOOD No comment entered. Ordering Provider: TERRENCE CHAUHAN Report Released Date/Time: August 07, 2022 02:21 PM Reporting Lab: [facility] [address] Performing Lab: [facility] [address] [place] [facility] CBC MCHC [MASS/VOLU ME] BY AUTOMATED COUNT 33.8 32.0 - 37.5 07/16 Specimen Type: BLOOD No comment entered. Ordering Provider: TERRENCE CHAUHAN Report Released Date/Time: August 07, 2022 02:21 PM Reporting Lab: [facility] [address] Performing Lab: [facility] [address] [facility] CBC PLATELETS [#/VOLUME] IN BLOOD BY AUTOMATED COUNT 159 150 - 400 07/16 Specimen Type: BLOOD No comment entered. Ordering Provider: TERRENCE CHAUHAN Report Released Date/Time: August 07, 2022 02:21 PM Reporting Lab: [facility] [phone] Performing Lab: [facility] [phone] [place] [facility] CBC PLATELET MEAN VOLUME [ENTITIC VOLUME] IN BLOOD BY AUTOMATED COUNT 9.6 7.4 - 10.4 07/16 Specimen Type: BLOOD No comment entered. Ordering Provider: TERRENCE CHAUHAN Report Released Date/Time: August 07, 2022 02:21 PM Reporting Lab: [facility] [address] Performing Lab: [facility] [phone] [facility] ERYTHROCYT E DISTRIBUTI ON WIDTH [RATIO] BY AUTOMATED COUNT 14.1 11.5 - 14.5 07/16 Specimen Type: BLOOD No comment entered. Ordering Provider: TERRENCE CHAUHAN Report Released Date/Time: August 07, 2022 02:21 PM Reporting Lab: [facility] [phone] Performing Lab: [facility] [address] [facility] LIVER FUNCTION TESTS BILIRUBIN. TOTAL [MASS/VOLU ME] IN SERUM OR PLASMA 0.8 0.2 - 1.2 07/16 Specimen Type: PLASMA No comment entered. Ordering Provider: TERRENCE CHAUHAN Report Released Date/Time: August 07, 2022 02:21 PM Reporting Lab: [facility] [address] Performing Lab: [facility] [address] [place] [facility] LIVER FUNCTION TESTS ALKALINE PHOSPHATAS E [ENZYMATIC ACTIVITY/V OLUME] IN SERUM OR PLASMA 52 40 - 150 07/16 Specimen Type: PLASMA No comment entered. Ordering Provider: TERRENCE CHAUHAN Report Released Date/Time: August 07, 2022 02:21 PM Reporting Lab: [facility] [address] Performing Lab: [facility] [address] [place] [facility] LIVER FUNCTION TESTS ALANINE AMINOTRANS FERASE [ENZYMATIC ACTIVITY/V OLUME] IN SERUM OR PLASMA 20 <55 - 55 07/16 Specimen Type: PLASMA No comment entered. Ordering Provider: TERRENCE CHAUHAN Report Released Date/Time: August 07, 2022 02:21 PM Reporting Lab: [facility] [address] Performing Lab: [facility] [address] [place] [facility] LIVER FUNCTION TESTS ASPARTATE AMINOTRANS FERASE [ENZYMATIC ACTIVITY/V OLUME] IN SERUM OR PLASMA 19 <34 - 34 07/16 Specimen Type: PLASMA No comment entered. Ordering Provider: TERRENCE CHAUHAN Report Released Date/Time: August 07, 2022 02:21 PM Reporting Lab: [facility] [address] Performing Lab: [facility] [address] [place] [facility] LIVER FUNCTION TESTS GAMMA GLUTAMYL TRANSFERAS E [ENZYMATIC ACTIVITY/V OLUME] IN SERUM OR PLASMA 38 <64 - 64 07/16 Specimen Type: PLASMA No comment entered. Ordering Provider: TERRENCE CHAUHAN Report Released Date/Time: August 07, 2022 02:21 PM Reporting Lab: [facility] [address] Performing Lab: [facility] [address] [place] [facility] PSA PROSTATE SPECIFIC AG [MASS/VOLU ME] IN SERUM OR PLASMA 3.84 <4.00 - 4.00 07/16 Specimen Type: SERUM No comment entered. Ordering Provider: TERRENCE CHAUHAN Report Released Date/Time: August 07, 2022 02:21 PM Reporting Lab: [facility] [address] Performing Lab: [facility] [address] [place] [facility] CREATINI NE(INCLU SATHYA EGFR) CREATININE [MASS/VOLU ME] IN SERUM OR PLASMA 1.2 0.7 - 1.2 04/16 Specimen Type: PLASMA No comment entered. Ordering Provider: HUYEN HYLTON Report Released Date/Time: Mar 07, 2023 02:00 PM Reporting Lab: [facility] [address] Performing Lab: [facility] [address] [place] [facility] CREATINI NE(INCLU SATHYA EGFR) GLOMERULAR FILTRATION RATE/1.73 SQ M.PREDICTE D [VOLUME RATE/AREA] IN SERUM, PLASMA OR BLOOD BY CREATININE -BASED FORMULA (CKD-EPI 2020) 62 60 04/16 Specimen Type: PLASMA No comment entered. Ordering Provider: HUYEN HYLTON Report Released Date/Time: Mar 07, 2023 02:00 PM Reporting Lab: [facility] [address] Performing Lab: [facility] [address] [place] [facility] AST/SGOT ASPARTATE AMINOTRANS FERASE [ENZYMATIC ACTIVITY/V OLUME] IN SERUM OR PLASMA 22 <34 - 34 04/16 Specimen Type: PLASMA No comment entered. Ordering Provider: HUYEN HYLTON Report Released Date/Time: Mar 07, 2023 02:00 PM Reporting Lab: [facility] [address] Performing Lab: [facility] [address] [place] [facility] CBC LEUKOCYTES [#/VOLUME] IN BLOOD BY AUTOMATED COUNT 8.06 4.0 - 11.0 04/16 Specimen Type: BLOOD No comment entered. Ordering Provider: HUYEN HYLTON S Report Released Date/Time: Mar 07, 2023 02:00 PM Reporting Lab: [facility] [address] Performing Lab: [facility] [address] [place] [facility] CBC ERYTHROCYT ES [#/VOLUME] IN BLOOD BY AUTOMATED COUNT 4.03 4.6 - 6.2 04/16 L Specimen Type: BLOOD No comment entered. Ordering Provider: HUYEN HYLTON S Report Released Date/Time: Mar 07, 2023 02:00 PM Reporting Lab: [facility] [address] Performing Lab: [place] [address] [place] [facility] CBC HEMOGLOBIN [MASS/VOLU ME] IN BLOOD 13.1 13.5 - 17.9 04/16 L Specimen Type: BLOOD No comment entered. Ordering Provider: HUYEN HYLTON S Report Released Date/Time: Mar 07, 2023 02:00 PM Reporting Lab: [facility] [address] Performing Lab: [address] [place] [facility] CBC HEMATOCRIT [VOLUME FRACTION] OF BLOOD BY AUTOMATED COUNT 38.9 41 - 54 04/16 L Specimen Type: BLOOD No comment entered. Ordering Provider: HUYEN HYLTON S Report Released Date/Time: Mar 07, 2023 02:00 PM Reporting Lab: [facility] [address] Performing Lab: [facility] [address] [place] [facility] CBC MCV [ENTITIC VOLUME] BY AUTOMATED COUNT 96.5 80 - 100 04/16 Specimen Type: BLOOD No comment entered. Ordering Provider: HUYEN HYLTON S Report Released Date/Time: Mar 07, 2023 02:00 PM Reporting Lab: [facility] [address] Performing Lab: [facility] [address] [place] [facility] CBC MCH [ENTITIC MASS] BY AUTOMATED COUNT 32.5 27 - 33 04/16 Specimen Type: BLOOD No comment entered. Ordering Provider: HUYEN HYLTON S Report Released Date/Time: Mar 07, 2023 02:00 PM Reporting Lab: [facility] [address] Performing Lab: [facility] [address] [place] [facility] CBC MCHC [MASS/VOLU ME] BY AUTOMATED COUNT 33.7 32.0 - 37.5 04/16 Specimen Type: BLOOD No comment entered. Ordering Provider: HUYEN HYLTON Report Released Date/Time: Mar 07, 2023 02:00 PM Reporting Lab: [facility] [address] Performing Lab: [facility] [address] [place] [facility] CBC PLATELETS [#/VOLUME] IN BLOOD BY AUTOMATED COUNT 157 150 - 400 04/16 Specimen Type: BLOOD No comment entered. Ordering Provider: HUYEN HYLTON S Report Released Date/Time: Mar 07, 2023 02:00 PM Reporting Lab: [facility] [address] Performing Lab: [facility] [address] [place] [facility] CBC PLATELET MEAN VOLUME [ENTITIC VOLUME] IN BLOOD BY AUTOMATED COUNT 9.7 7.4 - 10.4 04/16 Specimen Type: BLOOD No comment entered. Ordering Provider: HUYEN HYLTON Report Released Date/Time: Mar 07, 2023 02:00 PM Reporting Lab: [facility] [address] Performing Lab: [facility] [address] [facility] CBC ERYTHROCYT E DISTRIBUTI ON WIDTH [RATIO] BY AUTOMATED COUNT 14.5 11.5 - 14.5 04/16 Specimen Type: BLOOD No comment entered. Ordering Provider: HUYEN HYLTON Report Released Date/Time: Mar 07, 2023 02:00 PM Reporting Lab: [facility] [address] Performing Lab: [facility] [address] [place] [facility] ALT/SGPT ALANINE AMINOTRANS FERASE [ENZYMATIC ACTIVITY/V OLUME] IN SERUM OR PLASMA 19 <55 - 55 04/16 Specimen Type: PLASMA No comment entered. Ordering Provider: HUYEN HYLTON Report Released Date/Time: Mar 07, 2023 02:00 PM Reporting Lab: [facility] [address] Performing Lab: [facility] [address] [facility] Vital Signs Combined list of inpatient and outpatient Vital Signs from Department of Defense and Veterans Affairs, ranging from 12 months to all on record, depending upon the facility. Vital Sign Value Date Comments Source Encounters Combined list of: 1) Encounters from [facility] facilities going back up to thelast 18 months. 2) Encounters from the Department of [facility] facilities going back up to 280 months. Location Location Details Encounter Type Encounter Number Reason For Visit Attending Provider ADM Date DC Date Status Disposition Source [place] [facility] Outpatient Encounter [id number] OLESYA ROGERS 02/14 [facility] [place] [facility] Outpatient Encounter [id number] 02/14 [facility] [place] [facility] Outpatient Encounter [id number] 04/24 [facility] EMERGENCY DEPT VISIT SF MDM [id number] Diagnos is: ICD-10- CM Z76.0 Encount er for issue of repeat prescri ption<b r/> AICHA GALLEGOS 05/09 [facility] Outpatient Encounter [id number] 05/09 [facility] Outpatient Encounter [id number] 06/12 [facility] [place] [facility] Outpatient Encounter [id number] 07/15 [facility] OFF[facility] O/P EST MOD 30-39 MIN [id number] Diagnos is: ICD-10- CM Z00.01 Encount er for general adult medical exam w abnorma l finding s
DANETTE LIN E 08/07 [facility] [place] [facility] Outpatient Encounter [id number] 08/07 [facility] [place] [facility] Outpatient Encounter [id number] OLESYA ROGERS 08/12 [facility] [place] [facility] Outpatient Encounter [id number] OLESYA ROGERS 08/12 [place] [facility] [place] [facility] Outpatient Encounter [id number] Ana CHAUHAN 09/12 [place] [facility] [place] [facility] Outpatient Encounter [id number] 11/06 [place] [facility] [place] [facility] Outpatient Encounter [id number] 12/08 [place] [facility] [place] [facility] Outpatient Encounter [id number] 12/12 [place] [facility] [place] [facility] Outpatient Encounter [id number] 01/17 [place] [place] [facility] Outpatient Encounter [id number] 02/19 [place] [facility] [place] [facility] Outpatient Encounter [id number] 02/24 [place] [facility] [place] [facility] Outpatient Encounter [id number] 03/07 [facility] [place] [facility] QNHP OL DIG ASSMT&MGMT 5-10 [id number] Diagnos is: ICD-10- CM Z79.01 FPC (curren t) use of anticoa gulants
ELLEN GARCIA 05/29 [facility] [place] [facility] OFF[place] O/P EST MOD 30 MIN [id number] Diagnos is: ICD-10- CM Z00.01 Encount er for general adult medical exam w abnorma l finding s
Ana CHAUHAN 07/16 [place] [facility] [place] [facility] Outpatient Encounter [id number] 07/17 [facility] Social History Combined list of available smoking, tobacco, and other social history from Department of Defense and Veterans Affairs facilities. Social History Type Response Date Comment Sour e Tobacco smoking status NHIS VA-TOBACCO FORMER USER 07/17/2023 [facility] History of tobacco use [place]-TOBACCO QUIT 1 TO < 5 YRS 07/17/2023 [facility] History of tobacco use VA-TOBACCO FORMER USER 08/07/2022 [facility] History of tobacco use [place]-TOBACCO FORMER USER 10/16/2020 [facility] History of tobacco use NJ-TOBACCO USE CO UNSEL NO 03/29/2019 [facility] History of tobacco use NJ-TOBACCO USE WI 30 MIN OF WAKEUP 02/17/2018 [facility] History of tobacco use CURRENT TOBACCO USER 02/12/2017 [facility] History of tobacco use CURRENT TOBACCO USER 04/25/2015 [facility] History of tobacco use CURRENT TOBACCO USER 04/21/2014 [facility] History of tobacco use CURRENT TOBACCO USER 04/20/2013 [facility] History of tobacco use CURRENT TOBACCO USER 03/20/2012 [facility] History of tobacco use CURRENT TOBACCO USER 02/06/2011 [facility] History of tobacco use CURRENT TOBACCO USER 01/02/2010 [facility]
--- OUTSIDE RECORDS SUMMARY | 2023-08-15 15:18 | XMS_ITS | Data Portability ---
Author Name Unknown Address [address] [place] [address] Phone [phone] Organization [place] [facility], [employer] Address [address] [place] [address] Assessment Encounter Date Assessment Date Assessment LastModified [...] user Active 2015 Tobacco user; Original Code: 668195559 Origi nal Codesystem: SNOMED CT Classificati on: Medical Confirm ation Status: Probable Not Available [facility] Onychomycosis of toenails Active 2015 Onychomycosis of toenails; Original Code: 0552701744 Orig inal Codesystem: SNOMED CT Classificati on: Medical Confirm ation Status: Confirmed Not Available [facility] 09:10:17 Heart disease Active 2021 Heart disease; Original Code: 72341668 Origin al Codesystem: SNOMED CT Classificati on: Medical Confirm ation Status: Confirmed Not Available [facility] 3 09:10:17 Corns and callus Active 2015 Corns and callus; Original Code: 666017419 Origi nal Codesystem: SNOMED CT Classificati on: Medical Confirm ation Status: Confirmed Not Available [facility] 3 09:10:17 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; Original Code: 0479203780 Orig inal Codesystem: SNOMED CT Classificati on: Medical Confirm ation Status: Confirmed Not Available [facility] 3 09:10:17 Foot pain Active 2015 Foot pain; Original Code: 231516714 Origi nal Codesystem: SNOMED CT Classificati on: Medical Confirm ation Status: Confirmed Not Available [facility] 3 09:10:17 Acquired hallux valgus Active 2015 Acquired hallux valgus; Original Code: 637929381 Origi nal Codesystem: SNOMED CT Classificati on: Medical Confirm ation Status: Confirmed Not Available [facility] 3 09:10:17 Acquired hallux malleus Active 2015 Acquired hallux malleus; Original Code: 71609911 Origin al Codesystem: SNOMED CT Classificati on: Medical Confirm ation Status: Confirmed Not Available [facility] 3 09:10:17 Atrial fibrillation Active 2015 Atrial fibrillation; Original Code: 79687895 Origin al Codesystem: SNOMED CT Classificati on: Medical Confirm ation Status: Confirmed Not Available [facility] 3 09:10:17 Hypertensive disorder Active 2015 Hypertensive disorder; Original Code: 9735777938 Orig inal Codesystem: SNOMED CT Classificati on: Medical Confirm ation Status: Confirmed Not Available [facility] 09:10:17 Notes:H/O: anticoagulant the bharti Original Code: 024188482 Original Codesystem: SNOMED CT Classification: Medical Confirmation Status: Confirmed Problem Notes None recorded. Procedures Surgical History Date Name Laterality Status Provider Name and Address Organization Details Recorded Time 10/24/[address] Hong Andres DPM [address] [place] [address], [phone], [facility] 10/23/2022 11:44:57 07/25/[address] Hong Andres DPM [address] [place] [address], [phone], [facility] 07/24/2022 10:35:10 04/24/[address] Hong Andres DPM [address] [place] [address], [phone], [facility] 04/24/2022 11:13:18 [...] Updated DateTime 04/24/2022 190.5 cm 25 kg/m2 66163.47 g Mamta Corbett [facility] 04/24/2022 10:32:58 Social History None recorded. Functional Status None recorded. Mental Status None recorded. Family History Nothing Reported. Medical History No medical history recorded. Past Encounters Encounter ID Performer Location Encounter Start Date Encounter Closed Date Diagnosis/Indication Diagnosis SNOMED-CT Code [id number] Too Andres DPM [facility] [address] [place] [address] [address] [place] [address] 04/24/2022 10:31:04 04/24/2022 13:46:36 Onychomycosis 348453033 Peripheral vascular disease [id number] Too Andres DPM [facility] [address] [place] [address] 07/24/2022 10:14:25 07/25/2022 09:45:42 Onychomycosis 963341417 Peripheral vascular disease [id number] 7314 oTo Andres DPM [facility] [address] [place] [address] 10/23/2022 10:13:43 10/24/2022 09:44:58 Onychomycosis 758075391 Peripheral vascular disease [id number] Health Concerns Section Related Observation LastModified by Organization Detai ls LastModified Time None Recorded Concern Status LastModified by Organization Details LastModified Time None Recorded Advance Directives Directive None Recorded Payers Encounter Date Sequence Insurance Name Policy Number Policy Kevin Covered Member ID Kevin Member ID Guarantor Name 10/23/2022 1 [facility]: ([place] [id number] Bola Zurita [id number] Bola Zurita 07/24/2022 1 [place] [id number] Bola Zurita [id number] Bola Zurita 04/24/2022 1 [place] [id number] Bola Zurita [id number] Bola Zurita Notes Date Note Type Note Provider Name and Address Organization Details Recorded Time 04/24/2022 text/html HPI Notes: Pawel salmeron is a 77 year old male established patient who presents with the chief complaint. Presents today for evaluation of problematic toenails and feet in general. They relate chronic thickening and deformity to their toenails that has not responded to self-trimming, topical pbnj-ukn-vvgchyu anti-fungal therapy, foot soaks, and other similar conservative treatments. Nails are painful with catching on shoegear and socks. Denies any recent foot injury or infection. Claudication symptoms: No Burning symptoms: No Paresthesia: Subjective numbness to the left lower extremity consistent with his previous surgical procedures performed through [facility] in the [facility] Patient presents for further evaluation and treatment options. Too Andres DPM [address] [place] [address], [phone], [facility] 04/24/2022 11:14:44 07/24/2022 text/html HPI Notes: Pawel salmeron is a 77 year old male established patient who presents with the chief complaint. Presents today for evaluation of problematic toenails and feet in general. They relate chronic thickening and deformity to their toenails that has not responded to self-trimming, topical qakc-hsx-fkdqfgz anti-fungal therapy, foot soaks, and other similar conservative treatments. Nails are painful with catching on shoegear and socks. Denies any recent foot injury or infection. Claudication symptoms: No Burning symptoms: No Paresthesia: Subjective numbness to the left lower extremity consistent with his previous surgical procedures performed through [facility] in [facility] Patient presents for further evaluation and treatment options. Too Andres DPM [address] [place], [address], [facility] 07/24/2022 10:35:54 10/23/2022 text/html HPI Notes: Pawel salmeron is a 77 year old male established patient who presents with the chief complaint. Presents today for evaluation of problematic toenails and feet in general. They relate chronic thickening and deformity to their toenails that has not responded to self-trimming, topical diid-kbs-qzeszfw anti-fungal therapy, foot soaks, and other similar conservative treatments. Nails are painful with catching on shoegear and socks. Denies any recent foot injury or infection. Claudication symptoms: No Burning symptoms: No Paresthesia: Subjective numbness to the left lower extremity consistent with his previous surgical procedures performed through [facility] in [facility] Patient presents for further evaluation and treatment options. Too Andres DPM [address] [place], [address], [facility] 10/23/2022 11:45:19
== END 2023-08-15 15:16 | disposition home or self-care (01) ==
LOC: WOUND 15:15
PROVIDERS: PCP Family Medicine; Visit Provider Nurse Practitioner Family
DX: L02.212 Cutaneous abscess of back [any part, except buttock and flank] (principal); L72.0 Epidermal cyst
CPT/HCPCS: G0463

== ENCOUNTER 2023-08-19 14:57 | Outpatient (CLI) | payer MEDICARE, BC, SELFPAY ==
--- OUTSIDE RECORDS SUMMARY | 2023-08-19 14:59 | XMS_ITS | Data Portability ---
Author Name Unknown Address [address] [place] [address] Phone [phone] Organization [place] [facility], [employer] Address [address] [place] [address] Assessment Encounter Date Assessment Date Assessment LastModified [...] user Active 2015 Tobacco user; Original Code: [id number] Origi nal Codesystem: SNOMED CT Classificati on: Medical Confirm ation Status: Probable Not Available [facility]17 Onychomycosis of toenails Active 2015 Onychomycosis of toenails; Original Code: [id number] Orig inal Codesystem: SNOMED CT Classificati on: Medical Confirm ation Status: Confirmed Not Available [facility] 09:10:17 Heart disease Active 2021 Heart disease; Original Code: [id number] Origin al Codesystem: SNOMED CT Classificati on: Medical Confirm ation Status: Confirmed Not Available [facility] 3 09:10:17 Corns and callus Active 2015 Corns and callus; Original Code: [id number] Origi nal Codesystem: SNOMED CT Classificati on: Medical Confirm ation Status: Confirmed Not Available [facility] 3 09:10:17 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; Original Code: [id number] Orig inal Codesystem: SNOMED CT Classificati on: Medical Confirm ation Status: Confirmed Not Available [facility] 3 09:10:17 Foot pain Active 2015 Foot pain; Original Code: 310801366 Origi nal Codesystem: SNOMED CT Classificati on: Medical Confirm ation Status: Confirmed Not Available [facility] 3 09:10:17 Acquired hallux valgus Active 2015 Acquired hallux valgus; Original Code: 903560346 Origi nal Codesystem: SNOMED CT Classificati on: Medical Confirm ation Status: Confirmed Not Available [facility] 3 09:10:17 Acquired hallux malleus Active 2015 Acquired hallux malleus; Original Code: 90103281 Origin al Codesystem: SNOMED CT Classificati on: Medical Confirm ation Status: Confirmed Not Available [facility] 3 09:10:17 Atrial fibrillation Active 2015 Atrial fibrillation; Original Code: 72884698 Origin al Codesystem: SNOMED CT Classificati on: Medical Confirm ation Status: Confirmed Not Available [facility] 3 09:10:17 Hypertensive disorder Active 2015 Hypertensive disorder; Original Code: [id number] Orig inal Codesystem: SNOMED CT Classificati on: Medical Confirm ation Status: Confirmed Not Available [facility] 09:10:17 Notes:H/O: anticoagulant the bharti Original Code: [id number] Original Codesystem: SNOMED CT Classification: Medical Confirmation Status: Confirmed Problem Notes None recorded. Procedures Surgical History Date Name Laterality Status Provider Name and Address Organization Details Recorded Time 10/24/[address] Hong Andres DPM [address] [place] [address], [phone], [facility] 10/23/2022 11:44:57 07/25/[address] Hong Andres DPM [address] [place] [address], [phone], [facility] 07/24/2022 10:35:10 04/24/[address] Hong Andres DPM [address] [place] [address], [phone], [facility] 04/24/2022 [...] Updated DateTime 04/24/2022 190.5 cm 25 kg/m2 08437.47 g Mamta Corbett [facility] 04/24/2022 10:32:58 Social History None recorded. Functional Status None recorded. Mental Status None recorded. Family History Nothing Reported. Medical History No medical history recorded. Past Encounters Encounter ID Performer Location Encounter Start Date Encounter Closed Date Diagnosis/Indication Diagnosis SNOMED-CT Code [id number] Too Andres DPM [facility] [address] [place] [address] [address] [place] [address] 04/24/2022 10:31:04 04/24/2022 13:46:36 Onychomycosis [id number] Peripheral vascular disease [id number] Too Andres DPM [facility] [address] [place] [address] 07/24/2022 10:14:25 07/25/2022 09:45:42 Onychomycosis 934985976 Peripheral vascular disease [id number] Too Andres DPM [facility] [address] [place] [address] 10/23/2022 10:13:43 10/24/2022 09:44:58 Onychomycosis 972364025 Peripheral vascular disease [id number] Health Concerns Section Related Observation LastModified by Organization Detai ls LastModified Time None Recorded Concern Status LastModified by Organization Details LastModified Time None Recorded Advance Directives Directive None Recorded Payers Encounter Date Sequence Insurance Name Policy Number Policy Kevin Covered Member ID Kevin Member ID Guarantor Name 10/23/2022 1 [facility]: (MEDICARE [place]PLAC[place]) [id number] Bola Zurita [id number] Bola Zurita 07/24/2022 1 [employer] [id number] Bola Zurita [id number] Bola Zurita 04/24/2022 1 [place] [id number] Bola Zurita [id number] Bola Zurita Notes Date Note Type Note Provider Name and Address Organization Details Recorded Time 04/24/2022 text/html HPI Notes: Pawel salmeron is a 77 year old male established patient who presents with the chief complaint. Presents today for evaluation of problematic toenails and feet in general. They relate chronic thickening and deformity to their toenails that has not responded to self-trimming, topical besv-dpt-oksyaqi anti-fungal therapy, foot soaks, and other similar conservative treatments. Nails are painful with catching on shoegear and socks. Denies any recent foot injury or infection. Claudication symptoms: No Burning symptoms: No Paresthesia: Subjective numbness to the left lower extremity consistent with his previous surgical procedures performed through Vascular surgery in the [facility] Patient presents for further evaluation and treatment options. Too Andres DPM [address] [place] [address], [phone], [facility] 04/24/2022 11:14:44 07/24/2022 text/html HPI Notes: Pawel salmeron is a 77 year old male established patient who presents with the chief complaint. Presents today for evaluation of problematic toenails and feet in general. They relate chronic thickening and deformity to their toenails that has not responded to self-trimming, topical dkda-ljx-heqjgbv anti-fungal therapy, foot soaks, and other similar conservative treatments. Nails are painful with catching on shoegear and socks. Denies any recent foot injury or infection. Claudication symptoms: No Burning symptoms: No Paresthesia: Subjective numbness to the left lower extremity consistent with his previous surgical procedures performed through Vascular surgery in [facility] Patient presents for further evaluation and treatment options. Too Andres DPM [address] [place], [address], [facility] 07/24/2022 10:35:54 10/23/2022 text/html HPI Notes: Pawel salmeron is a 77 year old male established patient who presents with the chief complaint. Presents today for evaluation of problematic toenails and feet in general. They relate chronic thickening and deformity to their toenails that has not responded to self-trimming, topical whzb-eam-svrjhsn anti-fungal therapy, foot soaks, and other similar conservative treatments. Nails are painful with catching on shoegear and socks. Denies any recent foot injury or infection. Claudication symptoms: No Burning symptoms: No Paresthesia: Subjective numbness to the left lower extremity consistent with his previous surgical procedures performed through Vascular surgery in [facility] Patient presents for further evaluation and treatment options. Too Andres DPM [address] [place], [address], [facility] 10/23/2022 11:45:19
--- OUTSIDE RECORDS SUMMARY | 2023-08-19 14:59 | XMS_ITS | Continuity of Care Document ---
Author Name [facility] Organization [facility] Care Team Providers Care Events And Promotions Assistant Name Role Phone [facility] Unavailable Unavailable Problems Combined list of problems from Department of Defense and Veterans Affairs facilities. It does not include entries that were removed or entered in error. Problem Status Onset Date Problem Type Date of Resolution Comments Source CVD - Cerebrovascular Disease ([facility] 28898301) Active 03/19/20 20 Condition May 01, 2020 Entered By: YOAV CHAUHAN Comment: 03/19/20: L MCA CVA, Admit ANW. Cardio-embol ic d/t Warfarin DC [facility] CAD - Coronary Artery Disease ([facility] 16458526) Active 01/27/20 20 Condition Mar 13, 2020 Entered By: YOAV CHAUHAN Comment: 01/27/20: LAD and Dx stented w/SATHYA at [facility]. Plavix +ASA thru 01/26/21 [facility] Peripheral arterial insufficiency Active 01/21/20 20 Condition Mar 13, 2020 Entered By: YOAV CHAUHAN Comment: 01/21/20: L femoral Art occlusion per [facility]-->Fem -Tibial bypass planned [facility] Allergic rhinitis (SNOMED CT 82000260) Active Condition [facility] Atrial fibrillation (SNOMED CT 72712259) Active Condition Apr 26, 2015 Entered By: YOAV CHAUHAN Comment: Warfarin through Miryam Rodriguez [facility] Co-Managed Care Active Condition Dec 25, 2017 Entered By: YOAV CHAUHAN Comment: Dr Garcia, Michael Moroni, F: [phone] , [facility] COPD - Chronic Obstructive Pulmonary Disease ([facility] 07896812) Active Condition Dec 25, 2017 Entered By: YOAV CHAUHAN Comment: Mometasone & Albuterol MDI's [facility] [place] of toe Active Condition Sep 08, 2019 Entered By: YOAV CHAUHAN Comment: R middle toe [facility] Current smoker Active Condition Apr 082015 Entered By: YOAV CHAUHAN Comment: Cigars, not cigarettes [facility] Essential hypertension (SNOMED CT 88177234) Active Condition [facility] Glucose intolerance Active Condition [facility] Nocturia due to benign prostatic hypertrophy Active Condition [facility] Health Maintenance (ICD-9-CM V65.9) Inactive Condition 04/26/2015 BELGICA MANCILLA [facility] Diagnosis: ICD-10-CM Z00.01 Encounter for general adult medical exam w abnormal findings [facility] Diagnosis: ICD-10-CM Z79.01 buttermaker continuous churn (current) use of anticoagulants [facility] Diagnosis: ICD-10-CM Z76.0 Encounter for [...] S OF BREATH INHALA TION HOLD 07/17/2024 [id number] AFRICA CHAUHAN 2023 2 [facility] ALBUTEROL 90MCG/ACTUA T (CFC-F) INHL,ORAL,8 .5GM DOSE COUNTER INHALE 2 PUFFS BY INHALATI ON FOUR TIMES A DAY NEEDED FOR SHORTNES S OF BREATH INHALA TION DISCONT INUED 08/08/2023 [id number] 3 AFRICA CHAUHAN 2022 2 [facility] APIXABAN 5MG TAB TAKE ONE TABLET BY MOUTH EVERY 12 HOURS TO PREVENT BLOOD CLOTS AND STROKE (ELIQUIS ) ORALLY ACTIVE 05/29/2024 [id number] 4 MARIANO GARCIA 2023 180 [facility] APIXABAN 5MG TAB TAKE ONE TABLET BY MOUTH EVERY 12 HOURS TO PREVENT BLOOD CLOTS AND STROKE (ELIQUIS ) ORALLY DISCONT INUED 05/09/2023 [id number] 3 MARIANO GARCIA 2022 180 [facility] CHOLECALCIF JONNA 25MCG (1,000UNIT) TAB TAKE FIVE TABLETS BY MOUTH QOD ORALLY ACTIVE AFRICA CHAUHAN 2016 [facility] FLUOCINONID E 0.1% CREAM,TOP APPLY A THIN LAYER TOPICALL Y TWICE A DAY NEEDED FOR RASH TOPICA LLY ACTIVE 12/13/2023 [id number] 3 AFRICA CHAUHAN 2022 60 [facility] FLUTICASONE 250MCG/SALM ETEROL 50MCG INHL,ORAL,D ISKUS,60 INHALE 1 PUFF BY INHALATI ON TWICE A DAY FOR COPD INHALA TION ACTIVE 07/17/2024 [id number] 4 AFRICA CHAUHAN 2023 3 [facility] FLUTICASONE 250MCG/SALM ETEROL 50MCG INHL,ORAL,D ISKUS,60 INHALE 1 PUFF BY INHALATI ON TWICE A DAY FOR COPD THIS REPLACES YOUR MOMETASO NE INHALA TION DISCONT INUED 08/08/2023 [id number] 4 AFRICA CHAUHAN 2022 3 [facility] FUROSEMIDE 20MG TAB TAKE ONE TABLET BY MOUTH THREE TIMES A WEEK FOR HEART FAILURE ORALLY ACTIVE 02/25/2024 [id number] 3 Hong DONAHUE 2022 39 [facility] FUROSEMIDE 20MG TAB TAKE ONE TABLET BY MOUTH EVERY OTHER DAY FOR HEART FAILURE ORALLY DISCONT INUED (EDIT) 08/13/2023 [id number] 3 AFRICA CHAUHAN 2022 45 [facility] FUROSEMIDE 20MG TAB TAKE ONE TABLET BY MOUTH EVERY MORNING FOR HEART FAILURE ORALLY DISCONT INUED 08/08/2023 [id number] 3 AFRICA CHAUHAN 2022 90 [facility] FUROSEMIDE 20MG TAB TAKE ONE TABLET BY MOUTH EVERY MORNING FOR HEART FAILURE ORALLY DISCONT INUED 11/16/2022 [id number] 3 AFRICA CHAUHAN 2021 90 [facility] HYDROCHLORO THIAZIDE 12.5MG TAB TAKE ONE TABLET BY MOUTH EVERY DAY FOR BLOOD PRESSURE ORALLY DISCONT INUED 08/08/2023 [id number] 3 AFRICA CHAUHAN 2022 90 [facility] METOPROLOL SUCCINATE 100MG TAB,SA TAKE ONE AND ONE-HALF TABLETS BY MOUTH EVERY DAY ORALLY DISCONT INUED 11/16/2022 [id number] 3 AFRICA CHAUHAN 2021 135 [facility] METOPROLOL SUCCINATE 50MG TAB,SA TAKE THREE TABLETS BY MOUTH EVERY DAY FOR BLOOD PRESSURE ORALLY DISCONT INUED 08/08/2023 [id number] 3 AFRICA CHAUHAN 2022 270 [facility] METOPROLOL TARTRATE 100MG TAB TAKE ONE TABLET BY MOUTH TWICE A DAY FOR BLOOD PRESSURE ORALLY ACTIVE 12/13/2023 [id number] 4 AFRICA CHAUHAN 2022 180 [facility] MOMETASONE FUROATE 220MCG/INHL INHL,ORAL,6 0 INHALE 1 PUFF BY MOUTH TWICE A DAY TO PREVENT TROUBLE BREATHIN G TWIST COVER ON AND OFF TO LOAD NEXT DOSERI NSE MOUTH AFTER USING * DO NOT WASH INHALER ORALLY DISCONT INUED 11/16/2022 [id number] 3 AFRICA CHAUHAN 2021 3 [facility] NIFEDIPINE (EQV-CC) 60MG TAB,SA TAKE ONE TABLET BY MOUTH EVERY DAY FOR BLOOD PRESSURE ORALLY DISCONT INUED BY PROVIDE R 08/08/2023 [id number] 3 AFRICA CHAUHAN 2022 90 [facility] NIFEDIPINE (EQV-CC) 60MG TAB,SA TAKE ONE TABLET BY MOUTH EVERY DAY FOR BLOOD PRESSURE ORALLY DISCONT INUED 09/11/2022 [id number] 3 AFRICA CHAUHAN 2022 90 [facility] NIFEDIPINE (EQV-CC) 60MG TAB,SA TAKE ONE TABLET BY MOUTH EVERY DAY FOR BLOOD PRESSURE ORALLY DISCONT INUED 08/28/2022 [id number] 3 AFRICA CHAUHAN 2022 90 [facility] NIFEDIPINE (EQV-CC) 90MG TAB,SA TAKE ONE TABLET BY MOUTH EVERY DAY FOR BLOOD PRESSURE ORALLY SUSPEND ED 07/17/2024 [id number] 4 AFRICA CHAUHAN 2023 90 [facility] NIFEDIPINE (EQV-CC) 90MG TAB,SA TAKE ONE TABLET BY MOUTH EVERY DAY FOR BLOOD PRESSURE INCREASE D DOSE PER CO-MANAG ED CARE INCREASE D DOSE PER CO-MANAG ED CARE ORALLY DISCONT INUED 12/13/2023 [id number] 4 AFRICA CHAUHAN 2022 90 [facility] POTASSIUM CHLORIDE 10MEQ TAB,SA TAKE ONE TABLET BY MOUTH THREE TIMES A WEEK FOR POTASSIU M SUPPLEME NT TAKE WITH FUROSEMI DE ORALLY ACTIVE 02/25/2024 [id number] 3 Hong DONAHUE A 2022 39 [facility] POTASSIUM CHLORIDE 10MEQ TAB,SA TAKE ONE TABLET BY MOUTH EVERY OTHER DAY FOR POTASSIU M SUPPLEME NT ORALLY DISCONT INUED (EDIT) 08/13/2023 [id number] 3 AFRICA CHAUHAN 2022 45 [facility] POTASSIUM CHLORIDE 10MEQ TAB,SA TAKE ONE TABLET BY MOUTH EVERY DAY FOR CONGESTI VE HEART FAILURE ORALLY DISCONT INUED 08/08/2023 [id number] 3 AFRICA CHAUHAN 2022 90 [facility] POTASSIUM CHLORIDE 10MEQ TAB,SA TAKE ONE TABLET BY MOUTH EVERY DAY FOR CONGESTI VE HEART FAILURE ORALLY DISCONT INUED 11/16/2022 [id number] 3 AFRICA CHAUHAN 2021 90 [facility] ROSUVASTATI N CA 20MG TAB TAKE ONE TABLET BY MOUTH AT BEDTIME FOR CORONARY ARTERY DISEASE ORALLY HOLD 07/17/2024 [id number] AFRICA CHAUHAN 2023 90 [facility] ROSUVASTATI N CA 20MG TAB TAKE ONE TABLET BY MOUTH AT BEDTIME FOR CORONARY ARTERY DISEASE ORALLY DISCONT INUED 08/08/2023 [id number] 4 AFRICA CHAUHAN 2022 90 [facility] TAMSULOSIN HCL 0.4MG CAP TAKE ONE CAPSULE BY MOUTH EVERY EVENING FOR PROSTATE ORALLY ACTIVE 07/17/2024 [id number] 4 AFRICA CHAUHAN 2023 30 [facility] Allergies, Adverse Reactions, Alerts Combined list of allergies from Department of Defense and Veterans Affairs facilities. It does not include entries that were removed or entered in error. Substance Category Reaction Severity Reaction type Status Date Reported Comments Source LISINOPRIL Propensity to adverse reactions to drug (finding) Cough active 0 [facility] Immunizations Combined list of available immunizations from the Department of Defense and Veterans Affairs facilities. Immunization Series Date Given Administered By Site Reaction Lot Number CVX Code Drug Beverage Specialist Status Comments Source COVID-19 ([employer] ASA), MRNA, LNP-S, BIVALENT, PF, 30 MCG/0.3 ML DOSE 2022 300 complet ed [facility] COVID-19 (PFIZER), MRNA, LNP-S, PF, 30 MCG/0.3 ML DOSE, JAMES-SUCROSE (AGES 12+ YEARS) 2021 217 complet ed [facility] COVID-19 (PFIZER), MRNA, LNP-S, PF, 30 MCG/0.3 ML DOSE 2020 208 complet ed [facility] ZOSTER RECOMBINANT 2 2020 187 complet ed [facility] INFLUENZA VACCINE, QUADRIVALENT, ADJUVANTED 2020 205 complet ed [facility] INFLUENZA, UNSPECIFIED FORMULATION 2020 88 complet ed [facility] ZOSTER RECOMBINANT 1 2020 187 complet ed [facility] COVID-19 ([employer] ASA), MRNA, LNP-S, PF, 30 MCG/0.3 ML DOSE 2 2020 208 complet ed [facility] COVID-19 (PFIZER), MRNA, LNP-S, PF, 30 MCG/0.3 ML DOSE 1 2020 208 complet ed [facility] INFLUENZA VACCINE, QUADRIVALENT, ADJUVANTED 2019 205 complet ed [facility] INFLUENZA, TRIVALENT, ADJUVANTED 2018 168 complet ed [facility] INFLUENZA, SEASONAL, INJECTABLE 2018 141 complet ed [facility] INFLUENZA, SEASONAL, INJECTABLE 2017 141 complet ed [facility] INFLUENZA, TRIVALENT, ADJUVANTED 2017 168 complet ed [facility] INFLUENZA, HIGH DOSE SEASONAL 2016 135 complet ed [facility] PNEUMOCOCCAL POLYSACCHARID E PPV23 2016 33 complet ed [employer] , [id number], 06/03/18 [facility] TD (ADULT), 2 LF TETANUS TOXOID, PRESERVATIVE FREE, ADSORBED 2016 09 complet ed [employer] [id number], 12/19/18 [facility] INFLUENZA, HIGH DOSE SEASONAL 2016 135 complet ed [facility] PNEUMOCOCCAL POLYSACCHARID E PPV23 2016 33 complet ed [facility] INFLUENZA, HIGH DOSE SEASONAL 2015 135 complet ed [facility] PNEUMOCOCCAL CONJUGATE PCV 13 2015 133 complet ed [employer] [facility] PNEUMOCOCCAL CONJUGATE PCV 13 2014 133 complet ed [facility] INFLUENZA, UNSPECIFIED FORMULATION 2013 88 complet ed [facility] INFLUENZA, UNSPECIFIED FORMULATION 2013 88 complet ed [facility] INFLUENZA, UNSPECIFIED FORMULATION 2011 88 complet ed [facility] INFLUENZA, UNSPECIFIED FORMULATION 2010 88 complet ed [facility] PNEUMOCOCCAL, UNSPECIFIED FORMULATION 2009 109 complet ed [employer],093 02,10/21/ 011 [facility] TDAP 2009 115 complet ed [facility] ZOSTER LIVE 2008 121 complet ed [facility] TDAP 2007 115 complet ed private [facility] ZOSTER LIVE 2006 121 complet ed [facility] Results Combined list of recent chemistry, [...] Jul 17, 2023 04:23 PM Reporting Lab: [facility] [address] Performing Lab: [facility] [address] [facility] URINALYS IS SPECIFIC GRAVITY OF URINE 1.006 1.003 - 1.035 07/16 Specimen Type: URINE No comment entered. Ordering Provider: TERRENCE CHAUHAN Report Released Date/Time: Jul 17, 2023 04:23 PM Reporting Lab: [facility] [address] Performing Lab: [facility] [address] [facility] URINALYS IS BILIRUBIN. TOTAL [PRESENCE] IN URINE BY TEST STRIP NEGATIVE 07/16 Specimen Type: URINE No comment entered. Ordering Provider: TERRENCE CHAUHAN Report Released Date/Time: Jul 17, 2023 04:23 PM Reporting Lab: [facility] [address] Performing Lab: [facility] [address] [facility] URINALYS IS KETONES [MASS/VOLU ME] IN URINE BY TEST STRIP NEGATIVE 07/16 Specimen Type: URINE No comment entered. Ordering Provider: TERRENCE CHAUHAN Report Released Date/Time: Jul 17, 2023 04:23 PM Reporting Lab: [facility] [address] Performing Lab: [facility] [address] [facility] URINALYS IS GLUCOSE [MASS/VOLU ME] IN URINE BY TEST STRIP NEGATIVE 07/16 Specimen Type: URINE No comment entered. Ordering Provider: TERRENCE CHAUHAN Report Released Date/Time: Jul 17, 2023 04:23 PM Reporting Lab: [facility] [address] Performing Lab: [address] [place] [facility] URINALYS IS PROTEIN [MASS/VOLU ME] IN URINE BY TEST STRIP NEGATIVE 07/16 Specimen Type: URINE No comment entered. Ordering Provider: TERRENCE CHAUHAN Report Released Date/Time: Jul 17, 2023 04:23 PM Reporting Lab: [facility] [address] Performing Lab: [facility] [address] [place] [facility] URINALYS IS PH OF URINE BY TEST STRIP 7.0 5.0 - 8.0 07/16 Specimen Type: URINE No comment entered. Ordering Provider: TERRENCE CHAUHAN Report Released Date/Time: Jul 17, 2023 04:23 PM Reporting Lab: [facility] [address] Performing Lab: [facility] [address] [place] [facility] URINALYS IS LEUKOCYTES [#/AREA] IN URINE SEDIMENT BY MICROSCOPY HIGH POWER FIELD <1 0 - 7 07/16 Specimen Type: URINE No comment entered. Ordering Provider: TERRENCE CHAUHAN Report Released Date/Time: Jul 17, 2023 04:23 PM Reporting Lab: [facility] [address] Performing Lab: [facility] [address] [place] [facility] URINALYS IS BACTERIA [PRESENCE] IN URINE SEDIMENT BY LIGHT MICROSCOPY NONE SEEN 07/16 Specimen Type: URINE No comment entered. Ordering Provider: TERRENCE CHAUHAN Report Released Date/Time: Jul 17, 2023 04:23 PM Reporting Lab: [facility] [address] Performing Lab: [facility] [address] [place] [facility] URINALYS IS ERYTHROCYT ES [#/AREA] IN URINE SEDIMENT BY MICROSCOPY HIGH POWER FIELD <1 0 - 3 07/16 Specimen Type: URINE No comment entered. Ordering Provider: TERRENCE CHAUHAN Report Released Date/Time: Jul 17, 2023 04:23 PM Reporting Lab: [facility] [address] Performing Lab: [facility] [address] [place] [facility] URINALYS IS APPEARANCE OF URINE CLEAR 07/16 Specimen Type: URINE No comment entered. Ordering Provider: TERRENCE CHAUHAN Report Released Date/Time: Jul 17, 2023 04:23 PM Reporting Lab: [facility] [address] Performing Lab: [facility] [address] [place] [facility] URINALYS IS EPITHELIAL CELLS.SQUA MOUS [#/AREA] IN URINE SEDIMENT BY MICROSCOPY HIGH POWER FIELD NONE SEEN 07/16 Specimen Type: URINE No comment entered. Ordering Provider: TERRENCE CHAUHAN Report Released Date/Time: Jul 17, 2023 04:23 PM Reporting Lab: [facility] [address] Performing Lab: [facility] [address] [place] [facility] URINALYS IS HEMOGLOBIN [PRESENCE] IN URINE BY TEST STRIP NEGATIVE 07/16 Specimen Type: URINE No comment entered. Ordering Provider: TERRENCE CHAUHAN Report Released Date/Time: Jul 17, 2023 04:23 PM Reporting Lab: [facility] [address] Performing Lab: [facility] [address] [place] [facility] URINALYS IS NITRITE [PRESENCE] IN URINE BY TEST STRIP NEGATIVE 07/16 Specimen Type: URINE No comment entered. Ordering Provider: TERRENCE CHAUHAN Report Released Date/Time: Jul 17, 2023 04:23 PM Reporting Lab: [facility] [address] Performing Lab: [facility] [address] [place] [facility] URINALYS IS LEUKOCYTE ESTERASE [PRESENCE] IN URINE BY TEST STRIP NEGATIVE 07/16 Specimen Type: URINE No comment entered. Ordering Provider: TERRENCE CHAUHAN Report Released Date/Time: Jul 17, 2023 04:23 PM Reporting Lab: [facility] [address] Performing Lab: [facility] [address] [place] [facility] HEMOGLOB IN A1C HEMOGLOBIN A1C/HEMOGL [...] August 07, 2022 02:21 PM Reporting Lab: [facility] [address] Performing Lab: [facility] [address] [place] [facility] BASIC METABOLI C PANEL+MG CREATININE [MASS/VOLU ME] IN SERUM OR PLASMA 1.3 0.7 - 1.2 07/16 H Specimen Type: PLASMA No comment entered. Ordering Provider: TERRENCE CHAUHAN Report Released Date/Time: August 07, 2022 02:21 PM Reporting Lab: [facility] [address] Performing Lab: [facility] [address] [place] [facility] BASIC METABOLI C PANEL+MG UREA NITROGEN [MASS/VOLU ME] IN SERUM OR PLASMA 15 8 - 26 07/16 Specimen Type: PLASMA No comment entered. Ordering Provider: TERRENCE CHAUHAN Report Released Date/Time: August 07, 2022 02:21 PM Reporting Lab: [facility] [address] Performing Lab: [facility] [address] [place] [facility] BASIC METABOLI C PANEL+MG GLUCOSE [MASS/VOLU ME] IN SERUM OR PLASMA 84 70 - 100 07/16 Specimen Type: PLASMA No comment entered. Ordering Provider: TERRENCE CHUAHAN Report Released Date/Time: August 07, 2022 02:21 PM Reporting Lab: [facility] [address] Performing Lab: [facility] [address] [place] [facility] BASIC METABOLI C PANEL+MG SODIUM [MOLES/VOL UME] IN SERUM OR PLASMA 137 136 - 145 07/16 Specimen Type: PLASMA No comment entered. Ordering Provider: TERRENCE CHAUHAN Report Released Date/Time: August 07, 2022 02:21 PM Reporting Lab: [facility] [address] Performing Lab: [facility] [address] [place] [facility] BASIC METABOLI C PANEL+MG POTASSIUM [MOLES/VOL UME] IN SERUM OR PLASMA 4.6 3.5 - 5.1 07/16 Specimen Type: PLASMA No comment entered. Ordering Provider: TERRENCE CHAUHAN Report Released Date/Time: August 07, 2022 02:21 PM Reporting Lab: [facility] [address] Performing Lab: [facility] [address] [place] [facility] BASIC METABOLI C PANEL+MG CHLORIDE [MOLES/VOL UME] IN SERUM OR PLASMA 105 98 - 107 07/16 Specimen Type: PLASMA No comment entered. Ordering Provider: TERRENCE CHAUHAN Report Released Date/Time: August 07, 2022 02:21 PM Reporting Lab: [facility] [address] Performing Lab: [facility] [address] [place] [facility] BASIC METABOLI C PANEL+MG CARBON DIOXIDE, TOTAL [MOLES/VOL UME] IN SERUM OR PLASMA 24 22 - 29 07/16 Specimen Type: PLASMA No comment entered. Ordering Provider: TERRENCE CHAUHAN Report Released Date/Time: August 07, 2022 02:21 PM Reporting Lab: [facility] [address] Performing Lab: [facility] [address] [place] [facility] BASIC METABOLI C PANEL+MG CALCIUM [MASS/VOLU ME] IN SERUM OR PLASMA 8.9 8.4 - 10.2 07/16 Specimen Type: PLASMA No comment entered. Ordering Provider: TERRENCE CHAUHAN Report Released Date/Time: August 07, 2022 02:21 PM Reporting Lab: [facility] [address] Performing Lab: [facility] [address] [place] [facility] BASIC METABOLI C PANEL+MG MAGNESIUM [MASS/VOLU ME] IN SERUM OR PLASMA 2.1 1.6 - 2.6 07/16 Specimen Type: PLASMA No comment entered. Ordering Provider: TERRENCE CHAUHAN Report Released Date/Time: August 07, 2022 02:21 PM Reporting Lab: [facility] [address] Performing Lab: [facility] [address] [place] [facility] BASIC METABOLI C PANEL+MG ANION GAP IN SERUM OR PLASMA 8 5 - 15 07/16 Specimen Type: PLASMA No comment entered. Ordering Provider: TERRENCE CHAUHAN Report Released Date/Time: August 07, 2022 02:21 PM Reporting Lab: [facility] [address] Performing Lab: [facility] [address] [place] [facility] BASIC METABOLI C PANEL+MG GLOMERULAR FILTRATION RATE/1.73 SQ M.PREDICTE D [VOLUME RATE/AREA] IN SERUM, PLASMA OR BLOOD BY CREATININE -BASED FORMULA (CKD-EPI 2020) 56 60 07/16 L Specimen Type: PLASMA No comment entered. Ordering Provider: TERRENCE CHAUHAN Report Released Date/Time: August 07, 2022 02:21 PM Reporting Lab: [facility] [address] Performing Lab: [facility] [address] [place] [facility] CBC LEUKOCYTES [#/VOLUME] IN BLOOD BY AUTOMATED COUNT 8.72 4.0 - 11.0 07/16 Specimen Type: BLOOD No comment entered. Ordering Provider: TERRENCE CHAUHAN Report Released Date/Time: August 07, 2022 02:21 PM Reporting Lab: [facility] [address] Performing Lab: [facility] [address] [place] [facility] CBC ERYTHROCYT ES [#/VOLUME] IN BLOOD BY AUTOMATED COUNT 4.11 4.6 - 6.2 07/16 L Specimen Type: BLOOD No comment entered. Ordering Provider: TERRENCE CHAUHAN Report Released Date/Time: August 07, 2022 02:21 PM Reporting Lab: [facility] [address] Performing Lab: [facility] [address] [place] [facility] CBC HEMOGLOBIN [MASS/VOLU ME] IN BLOOD 13.4 13.5 - 17.9 07/16 L Specimen Type: BLOOD No comment entered. Ordering Provider: TERRENCE CHAUHAN Report Released Date/Time: August 07, 2022 02:21 PM Reporting Lab: [facility] [phone] Performing Lab: [facility] [id number] [place] [facility] CBC HEMATOCRIT [VOLUME FRACTION] OF BLOOD BY AUTOMATED COUNT 39.7 41 - 54 07/16 L Specimen Type: BLOOD No comment entered. Ordering Provider: TERRENCE CHAUHAN Report Released Date/Time: August 07, 2022 02:21 PM Reporting Lab: [facility] [phone] Performing Lab: [facility] [phone] [place] [facility] CBC MCV [ENTITIC VOLUME] BY AUTOMATED COUNT 96.6 80 - 100 07/16 Specimen Type: BLOOD No comment entered. Ordering Provider: TERRENCE CHAUHAN Report Released Date/Time: August 07, 2022 02:21 PM Reporting Lab: [facility] [phone] Performing Lab: [facility] [address] [place] [facility] CBC MCH [ENTITIC MASS] BY AUTOMATED COUNT 32.6 27 - 33 07/16 Specimen Type: BLOOD No comment entered. Ordering Provider: TERRENCE CHAUHAN Report Released Date/Time: August 07, 2022 02:21 PM Reporting Lab: [facility] [address] Performing Lab: [facility] [address] [place] [facility] CBC MCHC [MASS/VOLU ME] BY AUTOMATED COUNT 33.8 32.0 - 37.5 07/16 Specimen Type: BLOOD No comment entered. Ordering Provider: TERRENCE CHAUHAN Report Released Date/Time: August 07, 2022 02:21 PM Reporting Lab: [facility] [address] Performing Lab: [facility] [address] [facility] CBC PLATELETS [#/VOLUME] IN BLOOD BY AUTOMATED COUNT 159 150 - 400 07/16 Specimen Type: BLOOD No comment entered. Ordering Provider: TERRENCE CHAUHAN Report Released Date/Time: August 07, 2022 02:21 PM Reporting Lab: [facility] [address] Performing Lab: [facility] [address] [place] [facility] CBC PLATELET MEAN VOLUME [ENTITIC VOLUME] IN BLOOD BY AUTOMATED COUNT 9.6 7.4 - 10.4 07/16 Specimen Type: BLOOD No comment entered. Ordering Provider: TERRENCE CHAUHAN Report Released Date/Time: August 07, 2022 02:21 PM Reporting Lab: [facility] [address] Performing Lab: [facility] [address] [facility] CBC ERYTHROCYT E DISTRIBUTI ON WIDTH [RATIO] BY AUTOMATED COUNT 14.1 11.5 - 14.5 07/16 Specimen Type: BLOOD No comment entered. Ordering Provider: TERRENCE CHAUHAN Report Released Date/Time: August 07, 2022 02:21 PM Reporting Lab: [facility] [address] Performing Lab: [facility] [address] [facility] LIVER FUNCTION TESTS BILIRUBIN. TOTAL [MASS/VOLU ME] IN SERUM OR PLASMA 0.8 0.2 - 1.2 07/16 Specimen Type: PLASMA No comment entered. Ordering Provider: TERRENCE CHAUHAN Report Released Date/Time: August 07, 2022 02:21 PM Reporting Lab: [facility] [address] Performing Lab: [facility] [address] [place] [facility] LIVER FUNCTION TESTS ALKALINE PHOSPHATAS E [ENZYMATIC ACTIVITY/V OLUME] IN SERUM OR PLASMA 52 40 - 150 07/16 Specimen Type: PLASMA No comment entered. Ordering Provider: TERRENCE CHAUHAN Report Released Date/Time: August 07, 2022 02:21 PM Reporting Lab: [facility] [address] Performing Lab: [facility] [address] [place] [facility] LIVER FUNCTION TESTS ALANINE AMINOTRANS FERASE [ENZYMATIC ACTIVITY/V OLUME] IN SERUM OR PLASMA 20 <55 - 55 07/16 Specimen Type: PLASMA No comment entered. Ordering Provider: TERRENCE CHAUHAN Report Released Date/Time: August 07, 2022 02:21 PM Reporting Lab: [facility] [address] Performing Lab: [facility] [address] [place] [facility] LIVER FUNCTION TESTS ASPARTATE AMINOTRANS FERASE [ENZYMATIC ACTIVITY/V OLUME] IN SERUM OR PLASMA 19 <34 - 34 07/16 Specimen Type: PLASMA No comment entered. Ordering Provider: TERRENCE CHAUHAN Report Released Date/Time: August 07, 2022 02:21 PM Reporting Lab: [facility] [address] Performing Lab: [facility] [address] [place] [facility] LIVER FUNCTION TESTS GAMMA GLUTAMYL TRANSFERAS E [ENZYMATIC ACTIVITY/V OLUME] IN SERUM OR PLASMA 38 <64 - 64 07/16 Specimen Type: PLASMA No comment entered. Ordering Provider: TERRENCE CHAUHAN Report Released Date/Time: August 07, 2022 02:21 PM Reporting Lab: [facility] [address] Performing Lab: [facility] [address] [place] [facility] PSA PROSTATE SPECIFIC AG [MASS/VOLU ME] IN SERUM OR PLASMA 3.84 <4.00 - 4.00 07/16 Specimen Type: SERUM No comment entered. Ordering Provider: TERRENCE CHAUHAN Report Released Date/Time: August 07, 2022 02:21 PM Reporting Lab: [facility] [address] Performing Lab: [facility] [address] [place] [facility] CREATINI NE(INCLU SATHYA EGFR) CREATININE [MASS/VOLU ME] IN SERUM OR PLASMA 1.2 0.7 - 1.2 04/16 Specimen Type: PLASMA No comment entered. Ordering Provider: HUYEN HYLTON Report Released Date/Time: Mar 07, 2023 02:00 PM Reporting Lab: [facility] [address] Performing Lab: [facility] [address] [place] [facility] CREATINI NE(INCLU SATHYA EGFR) GLOMERULAR FILTRATION RATE/1.73 SQ M.PREDICTE D [VOLUME RATE/AREA] IN SERUM, PLASMA OR BLOOD BY CREATININE -BASED FORMULA (CKD-EPI 2020) 62 60 04/16 Specimen Type: PLASMA No comment entered. Ordering Provider: HUYEN HYLTON Report Released Date/Time: Mar 07, 2023 02:00 PM Reporting Lab: [facility] [address] Performing Lab: [facility] [address] [place] [facility] AST/SGOT ASPARTATE AMINOTRANS FERASE [ENZYMATIC ACTIVITY/V OLUME] IN SERUM OR PLASMA 22 <34 - 34 04/16 Specimen Type: PLASMA No comment entered. Ordering Provider: HUYEN HYLTON Report Released Date/Time: Mar 07, 2023 02:00 PM Reporting Lab: [facility] [address] Performing Lab: [facility] [address] [place] [facility] CBC LEUKOCYTES [#/VOLUME] IN BLOOD BY AUTOMATED COUNT 8.06 4.0 - 11.0 04/16 Specimen Type: BLOOD No comment entered. Ordering Provider: HUYEN HYLTON S Report Released Date/Time: Mar 07, 2023 02:00 PM Reporting Lab: [facility] [address] Performing Lab: [facility] [address] [place] [facility] CBC ERYTHROCYT ES [#/VOLUME] IN BLOOD BY AUTOMATED COUNT 4.03 4.6 - 6.2 04/16 L Specimen Type: BLOOD No comment entered. Ordering Provider: HUYEN HYLTON S Report Released Date/Time: Mar 07, 2023 02:00 PM Reporting Lab: [facility] [address] Performing Lab: [place] [address] [place] [facility] CBC HEMOGLOBIN [MASS/VOLU ME] IN BLOOD 13.1 13.5 - 17.9 04/16 L Specimen Type: BLOOD No comment entered. Ordering Provider: HUYEN HYLTON S Report Released Date/Time: Mar 07, 2023 02:00 PM Reporting Lab: [facility] [address] Performing Lab: [address] [place] [facility] CBC HEMATOCRIT [VOLUME FRACTION] OF BLOOD BY AUTOMATED COUNT 38.9 41 - 54 04/16 L Specimen Type: BLOOD No comment entered. Ordering Provider: HUYEN HYLTON S Report Released Date/Time: Mar 07, 2023 02:00 PM Reporting Lab: [facility] [address] Performing Lab: [facility] [address] [place] [facility] CBC MCV [ENTITIC VOLUME] BY AUTOMATED COUNT 96.5 80 - 100 04/16 Specimen Type: BLOOD No comment entered. Ordering Provider: HUYEN HYLTON S Report Released Date/Time: Mar 07, 2023 02:00 PM Reporting Lab: [facility] [address] Performing Lab: [facility] [address] [place] [facility] CBC MCH [ENTITIC MASS] BY AUTOMATED COUNT 32.5 27 - 33 04/16 Specimen Type: BLOOD No comment entered. Ordering Provider: HUYEN HYLTON S Report Released Date/Time: Mar 07, 2023 02:00 PM Reporting Lab: [facility] [address] Performing Lab: [facility] [address] [place] [facility] CBC MCHC [MASS/VOLU ME] BY AUTOMATED COUNT 33.7 32.0 - 37.5 04/16 Specimen Type: BLOOD No comment entered. Ordering Provider: HUYEN HYLTON Report Released Date/Time: Mar 07, 2023 02:00 PM Reporting Lab: [facility] [address] Performing Lab: [facility] [address] [place] [facility] CBC PLATELETS [#/VOLUME] IN BLOOD BY AUTOMATED COUNT 157 150 - 400 04/16 Specimen Type: BLOOD No comment entered. Ordering Provider: HUYEN HYLTON S Report Released Date/Time: Mar 07, 2023 02:00 PM Reporting Lab: [facility] [address] Performing Lab: [facility] [address] [place] [facility] CBC PLATELET MEAN VOLUME [ENTITIC VOLUME] IN BLOOD BY AUTOMATED COUNT 9.7 7.4 - 10.4 04/16 Specimen Type: BLOOD No comment entered. Ordering Provider: HUYEN HYLTON Report Released Date/Time: Mar 07, 2023 02:00 PM Reporting Lab: [facility] [address] Performing Lab: [facility] [address] [facility] CBC ERYTHROCYT E DISTRIBUTI ON WIDTH [RATIO] BY AUTOMATED COUNT 14.5 11.5 - 14.5 04/16 Specimen Type: BLOOD No comment entered. Ordering Provider: HUYEN HYLTON Report Released Date/Time: Mar 07, 2023 02:00 PM Reporting Lab: [facility] [address] Performing Lab: [facility] [address] [place] [facility] ALT/SGPT ALANINE AMINOTRANS FERASE [ENZYMATIC ACTIVITY/V OLUME] IN SERUM OR PLASMA 19 <55 - 55 04/16 Specimen Type: PLASMA No comment entered. Ordering Provider: HUYEN HYLTON Report Released Date/Time: Mar 07, 2023 02:00 PM Reporting Lab: [facility] [address] Performing Lab: [facility] [address] [facility] Vital Signs Combined list of inpatient and outpatient Vital Signs from Department of Defense and Veterans Affairs, ranging from 12 months to all on record, depending upon the facility. Vital Sign Value Date Comments Source Encounters Combined list of: 1) Encounters from [facility] facilities going back up to thelast 18 months. 2) Encounters from the Department of [facility] facilities going back up to 280 months. Location Location Details Encounter Type Encounter Number Reason For Visit Attending Provider ADM Date DC Date Status Disposition Source [place] [facility] Outpatient Encounter [id number] OLESYA ROGERS 02/14 [facility] [place] [facility] Outpatient Encounter [id number] 02/14 [facility] [place] [facility] Outpatient Encounter [id number] 04/24 [facility] VIS[facility] [place] MDM [id number] Diagnos is: ICD-10- CM Z76.0 Encount er for issue of repeat prescri ption<b r/> AICHA GALLEGOS 05/09 [facility] Outpatient Encounter [id number] 05/09 [facility] Outpatient Encounter [id number] 06/12 [facility] [place] [facility] Outpatient Encounter [id number] 07/15 [facility] OFFICE O/P EST MOD 30-39 MIN [id number] Diagnos is: ICD-10- CM Z00.01 Encount er for general adult medical exam w abnorma l finding s
DANETTE LIN E 08/07 [facility] [place] [facility] Outpatient Encounter [id number] 08/07 [facility] [place] [facility] Outpatient Encounter [id number] OLESYA ROGERS 08/12 [facility] [place] [facility] Outpatient Encounter [id number] OLESYA ROGERS 08/12 [place] [facility] [place] [facility] Outpatient Encounter [id number] Ana CHAUHAN 09/12 [place] [facility] [place] [facility] Outpatient Encounter [id number] 11/06 [place] [facility] [place] [facility] Outpatient Encounter [id number] 12/08 [place] [facility] [place] [facility] Outpatient Encounter [id number] 12/12 [place] [facility] [place] [facility] Outpatient Encounter [id number] 01/17 [place] [facility] [place] [facility] Outpatient Encounter [id number] 02/19 [place] [facility] [place] [facility] Outpatient Encounter [id number] 02/24 [place] [facility] [place] [facility] Outpatient Encounter [id number] 03/07 [facility] [place] [facility] QNHP OL DIG ASSMT&MGMT 5-10 [id number] Diagnos is: ICD-10- CM Z79.01 nursing home (curren t) use of anticoa gulants
ELLEN GARCIA 05/29 [facility] [place] [facility] OFFICE O/P EST MOD 30 MIN [id number] Diagnos is: ICD-10- CM Z00.01 Encount er for general adult medical exam w abnorma l finding s
Ana CHAUHAN 07/16 [place] [facility] [place] [facility] Outpatient Encounter [id number] 07/17 [facility] Social History Combined list of available smoking, tobacco, and other social history from Department of Defense and Veterans Affairs facilities. Social History Type Response Date Comment Sour e Tobacco smoking status NHIS VA-TOBACCO FORMER USER 07/17/2023 [facility] History of tobacco use MT-TOBACCO QUIT 1 TO < 5 YRS 07/17/2023 [facility] History of tobacco use VA-TOBACCO FORMER USER 08/07/2022 [facility] History of tobacco use MT-TOBACCO FORMER USER 10/16/2020 [facility] History of tobacco use MT-TOBACCO USE CO UNSEL NO 03/29/2019 [facility] History of tobacco use MT-TOBACCO USE WI 30 MIN OF WAKEUP 02/17/2018 [facility] History of tobacco use CURRENT TOBACCO USER 02/12/2017 [facility] History of tobacco use CURRENT TOBACCO USER 04/25/2015 [facility] History of tobacco use CURRENT TOBACCO USER 04/21/2014 [facility] History of tobacco use CURRENT TOBACCO USER 04/20/2013 [facility] History of tobacco use CURRENT TOBACCO USER 03/20/2012 [facility] History of tobacco use CURRENT TOBACCO USER 02/06/2011 [facility] History of tobacco use CURRENT TOBACCO USER 01/02/2010 [facility]
--- OUTSIDE RECORDS SUMMARY | 2023-08-19 14:59 | XMS_ITS | Clinical Summary ---
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 LLE angiogram 2. 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 Panlobular emphysema 10/21/2018 COPD exacerbation 09/09/2018 [...] Department Care Team Description 08/05/2023 Lab Requisition [facility] [phone] Unknown, Doctor 08/04/2023 8:35 AM CDT Office Visit [facility] [address] [place] [address] Jena Pascual PA Follow Up (Boil) 08/04/2023 Travel 08/01/2023 8:35 AM CDT Office Visit [facility] [address] [place] [address] Jena Pascual PA Derm Problem 08/01/2023 Travel [...] T Respiratory Rate 18 03/17/2023 3:35 PM MAINTENANCE MACHINE REPAIRER Oxygen Saturation 96% 08/04/2023 8:35 AM CDT Inhaled Oxygen Concentration - - Weight 90.7 kg (200 lb) 08/04/2023 8:35 AM CDT Height 190.5 cm (6' 3) 03/17/2023 2:07 PM MAINTENANCE MACHINE REPAIRER Body Mass Index 25 03/17/2023 2:07 PM MAINTENANCE MACHINE REPAIRER Plan of Treatment Health Maintenance Due Date [...] back ANTI HCV Routine 05/16/2021 3:20 PM MAINTENANCE MACHINE REPAIRER Need for hepatitis C screening test CT CHEST WO Routine 08/29/2010 4:53 PM CDT Pulmonary nodules from Last 3 Months or Most Recently Relevant to Health Maintenance Results * LAB TRACKING EVENT (08/05/2023 2:01 PM CDT) Other (Other) Client Collect / Unknown 08/05/2023 2:01 PM CDT 08/05/2023 9:37 PM CDT Doctor Unknown LAB BILL ONLY [facility] [address] [place] [address], * PATH TISSUE EXAM (08/05/2023 2:01 PM CDT) Case Report Pathology Report ?Case: [id number] ? Authorizing Provider: ??Unknown, Doctor ?Collected: ? 08/05/2023 1401 ? Ordering Location: ? [facility] ?Received: ?08/06/2023 1013 ? Pathologist: ? Jose Rinaldi MD ? Specimen: ?Back ? 08/07/2023 4:47 PM CDT [facility] Final Diagnosis A) SKIN, BACK, CYST, EXCISION: 1. Epidermoid cyst 2. Negative for dysplasia or malignancy 08/07/2023 4:47 PM CDT [facility] Clinical Information back cyst 08/07/2023 4:47 PM CDT [facility] Gross Description A) Received in formalin, labeled with the patient's name and date of , is a 1.5 x 1.1 x 0.3 cm aggregate of pale-garcia cyst wall fragments admixed with garcia-white soft, friable cyst contents. ??The specimen is filtered and submitted entirely in 1 cassette. [facility] 08/06/2023 08/07/2023 4:47 PM CDT [facility] Microscopic Description The final diagnosis is based on microscopic examination of appropriate sections of all specimens. 08/07/2023 4:47 PM CDT [facility] Additional Information Interpreted at [facility] - [address], [place] [address] 08/07/2023 4:47 PM CDT [facility] Other (Back) 08/05/2023 2:01 PM CDT 08/06/2023 10:13 AM CDT Doctor Unknown PATHOLOGY/CYTOLOGY [facility] [address] [place] [address], * AEROBIC BACTERIAL CULTURE, STAIN (08/01/2023 9:30 AM CDT) CULTURE No Growth. 08/03/2023 3:00 PM CDT [facility] GRAM STAIN 4+ RBCs 08/03/2023 3:00 PM CDT [facility] GRAM STAIN 1+ PMNs 08/03/2023 3:00 PM CDT [facility] GRAM STAIN No Epithelial cells 08/03/2023 3:00 PM CDT [facility] GRAM STAIN 4+ Gram Positive Cocci 08/03/2023 3:00 PM CDT [facility] GRAM STAIN 3+ Gram Negative Bacilli 08/03/2023 3:00 PM CDT [facility] Other (Other) Non-Blood / Unknown 08/01/2023 9:30 AM CDT 08/01/2023 9:31 AM CDT Jena RICHARDSON MICROBIOLOGY [facility] [address] [place] [address], * ANTI HCV (05/16/2021 3:20 PM MAINTENANCE MACHINE REPAIRER) HEPATITIS C ANTIBODY Non-React edelmira Non-React edelmira 05/17/2021 1:21 AM MAINTENANCE MACHINE REPAIRER [facility] Comment:Antibodies to HCV no t detected; does not exclude the possibility of exposure to HCV. Blood BLOOD SPECIMEN / Unknown Venipuncture / Unknown 05/16/2021 3:20 PM MAINTENANCE MACHINE REPAIRER 05/16/2021 3:25 PM MAINTENANCE MACHINE REPAIRER Zak Garcia MD SEND OUTS [facility] [address] [place] [address], * CT CHEST WO CONTRAST (08/29/2010 4:53 [...] Comments Code Status Discussion: Discussed Care Teams Senior Clinical Sas Programmer Relationship Specialty Start Date End Date Klever Monte MD [address] [place] [address] PCP - General Family Practice 06/12/22
== END 2023-08-19 14:58 | disposition home or self-care (01) ==
LOC: WOUND 14:57
PROVIDERS: PCP Family Medicine; Visit Provider Nurse Practitioner Family
DX: L02.212 Cutaneous abscess of back [any part, except buttock and flank] (principal); L72.0 Epidermal cyst
CPT/HCPCS: 97597

== ENCOUNTER 2023-08-22 14:52 | Outpatient (CLI) | payer MEDICARE, BC, SELFPAY ==
--- OUTSIDE RECORDS SUMMARY | 2023-08-22 14:54 | XMS_ITS | Clinical Summary ---
Author Name Unknown Organization [employer] [facility] [employer] Address [place], [place] [address] Care Team Providers Care System Manager Name Role Phone Klever Monte MD Primary Care Provider [phone] Allergies Active Allergy Reactions Criticality Noted Date [...] mg Sustained-Release tabletIndications:C oronary artery disease involving [place] coronary artery of [place] heart with angina pectoris (HC),Permanent atrial fibrillation [...] response 02/11/2020 Coronary artery disease invo lving [place] coronary artery of [place] heart with angina pectoris 01/27/2020 Overview: - [...] glide device 08/01/20 1. LLE angiogram 2. 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 Panlobular emphysema 10/21/2018 COPD exacerbation 09/09/2018 [...] Department Care Team Description 08/05/2023 Lab Requisition [facility] [phone] Unknown, Doctor 08/04/2023 8:35 AM CDT Office Visit [facility] [address] [place] [address] Jena Pascual PA Follow Up (Boil) 08/04/2023 Travel 08/01/2023 8:35 AM CDT Office Visit [facility] [address] [place] [address] Jena Pascual PA Derm Problem 08/01/2023 Travel [...] T Respiratory Rate 18 03/17/2023 3:35 PM TECHNOLOGY COACH Oxygen Saturation 96% 08/04/2023 8:35 AM CDT Inhaled Oxygen Concentration - - Weight 90.7 kg (200 lb) 08/04/2023 8:35 AM CDT Height 190.5 cm (6' 3) 03/17/2023 2:07 PM TECHNOLOGY COACH Body Mass Index 25 03/17/2023 2:07 PM TECHNOLOGY COACH Plan of Treatment Health Maintenance Due Date [...] back ANTI HCV Routine 05/16/2021 3:20 PM TECHNOLOGY COACH Need for hepatitis C screening test CT CHEST WO Routine 08/29/2010 4:53 PM CDT Pulmonary nodules from Last 3 Months or Most Recently Relevant to Health Maintenance Results * LAB TRACKING EVENT (08/05/2023 2:01 PM CDT) Other (Other) Client Collect / Unknown 08/05/2023 2:01 PM CDT 08/05/2023 9:37 PM CDT Doctor Unknown LAB BILL ONLY [facility] [address] [place] [address], * PATH TISSUE EXAM (08/05/2023 2:01 PM CDT) Case Report Pathology Report ?Case: [id number] ? Authorizing Provider: ??Unknown, Doctor ?Collected: ? 08/05/2023 1401 ? Ordering Location: ? [facility] ?Received: ?08/06/2023 1013 ? Pathologist: ? Jose Rinaldi MD ? Specimen: ?Back ? 08/07/2023 4:47 PM CDT [facility] Final Diagnosis A) SKIN, BACK, CYST, EXCISION: 1. Epidermoid cyst 2. Negative for dysplasia or malignancy 08/07/2023 4:47 PM CDT [facility] Clinical Information back cyst 08/07/2023 4:47 PM CDT [facility] Gross Description A) Received in formalin, labeled with the patient's name and date of , is a 1.5 x 1.1 x 0.3 cm aggregate of pale-garcia cyst wall fragments admixed with garcia-white soft, friable cyst contents. ??The specimen is filtered and submitted entirely in 1 cassette. [facility] 08/06/2023 08/07/2023 4:47 PM CDT [facility] Microscopic Description The final diagnosis is based on microscopic examination of appropriate sections of all specimens. 08/07/2023 4:47 PM CDT [facility] Additional Information Interpreted at [facility] [place] [place] [facility] [place] [address] [address] 08/07/2023 4:47 PM CDT [facility] Other (Back) 08/05/2023 2:01 PM CDT 08/06/2023 10:13 AM CDT Doctor Unknown PATHOLOGY/CYTOLOGY [facility] [address] [place] [address], * AEROBIC BACTERIAL CULTURE, STAIN (08/01/2023 9:30 AM CDT) CULTURE No Growth. 08/03/2023 3:00 PM CDT [facility] GRAM STAIN 4+ RBCs 08/03/2023 3:00 PM CDT [facility] GRAM STAIN 1+ PMNs 08/03/2023 3:00 PM CDT [facility] GRAM STAIN No Epithelial cells 08/03/2023 3:00 PM CDT [facility] GRAM STAIN 4+ Gram Positive Cocci 08/03/2023 3:00 PM CDT [facility] GRAM STAIN 3+ Gram Negative Bacilli 08/03/2023 3:00 PM CDT [facility] Other (Other) Non-Blood / Unknown 08/01/2023 9:30 AM CDT 08/01/2023 9:31 AM CDT Jena RICHARDSON MICROBIOLOGY [facility] [address] [place] [address], * ANTI HCV (05/16/2021 3:20 PM TECHNOLOGY COACH) HEPATITIS C ANTIBODY Non-React edelmira Non-React edelmira 05/17/2021 1:21 AM TECHNOLOGY COACH [facility] Comment:Antibodies to HCV no t detected; does not exclude the possibility of exposure to HCV. Blood BLOOD SPECIMEN / Unknown Venipuncture / Unknown 05/16/2021 3:20 PM TECHNOLOGY COACH 05/16/2021 3:25 PM TECHNOLOGY COACH Zak Garcia MD SEND OUTS [facility] [address] [place] [address], * CT CHEST WO CONTRAST (08/29/2010 4:53 [...] Comments Code Status Discussion: Discussed Care Teams System Manager Relationship Specialty Start Date End Date Klever Monte MD [address] [place] [address] PCP - General Family Practice 06/12/22
--- OUTSIDE RECORDS SUMMARY | 2023-08-22 14:55 | XMS_ITS | Continuity of Care Document ---
Author Name [facility] Organization [facility] Care Team Providers Care Global Sales Executive Name Role Phone [facility] Unavailable Unavailable Problems Combined list of problems from Department of Defense and Veterans Affairs facilities. It does not include entries that were removed or entered in error. Problem Status Onset Date Problem Type Date of Resolution Comments Source CVD - Cerebrovascular Disease ([facility] 45535335) Active 03/19/20 20 Condition May 01, 2020 Entered By: YOAV CHAUHAN Comment: 03/19/20: L MCA CVA, Admit ANW. Cardio-embol ic d/t Warfarin DC [facility] CAD - Coronary Artery Disease ([facility] 08753006) Active 01/27/20 20 Condition Mar 13, 2020 Entered By: YOAV CHAUHAN Comment: 01/27/20: LAD and Dx stented w/SATHYA at [facility]. Plavix +ASA thru 01/26/21 [facility] Peripheral arterial insufficiency Active 01/21/20 20 Condition Mar 13, 2020 Entered By: YOAV CHAUHAN Comment: 01/21/20: L femoral Art occlusion per [facility]-->Fem -Tibial bypass planned [facility] Allergic rhinitis (SNOMED CT 31455567) Active Condition [facility] Atrial fibrillation (SNOMED CT 90005592) Active Condition Apr 26, 2015 Entered By: YOAV CHAUHAN Comment: Warfarin through Miryam Rodriguez [facility] Co-Managed Care Active Condition Dec 25, 2017 Entered By: YOAV CHAUHAN Comment: Dr Garcia, Michael Bassfield, F: [phone] , [facility] COPD - Chronic Obstructive Pulmonary Disease ([facility] 65033121) Active Condition Dec 25, 2017 Entered By: YOAV CHAUHAN Comment: Mometasone & Albuterol MDI's [facility] [place] toe Active Condition Sep 08, 2019 Entered By: YOAV CHAUHAN Comment: R middle toe [facility] Current smoker Active Condition Apr 082015 Entered By: YOAV CHAUHAN Comment: Cigars, not cigarettes [facility] Essential hypertension (SNOMED CT 45378033) Active Condition [facility] Glucose intolerance Active Condition [facility] Nocturia due to benign prostatic hypertrophy Active Condition [facility] Health Maintenance (ICD-9-CM V65.9) Inactive Condition 04/26/2015 [facility] Diagnosis: ICD-10-CM Z00.01 Encounter for general adult medical exam w abnormal findings Active Diagnosis [facility] Diagnosis: 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 Diagnosis [facility]ALAN Knox [facility] Diagnosis: ICD-10-CM Z76.0 Encounter for issue of repeat prescription Active Diagnosis [facility] Medications Combined list of outpatient medications [...] S OF BREATH INHALA TION HOLD 07/17/2024 [id number] AFRICA CHAUHAN 2023 2 [facility] ALBUTEROL 90MCG/ACTUA T (CFC-F) INHL,ORAL,8 .5GM DOSE COUNTER INHALE 2 PUFFS BY INHALATI ON FOUR TIMES A DAY NEEDED FOR SHORTNES S OF BREATH INHALA TION DISCONT INUED 08/08/2023 [id number] 3 AFRICA CHAUHAN 2022 2 [facility] APIXABAN 5MG TAB TAKE ONE TABLET BY MOUTH EVERY 12 HOURS TO PREVENT BLOOD CLOTS AND STROKE (ELIQUIS ) ORALLY ACTIVE 05/29/2024 [id number] MARIANO GARCIA 2023 180 [facility] APIXABAN 5MG TAB TAKE ONE TABLET BY MOUTH EVERY 12 HOURS TO PREVENT BLOOD CLOTS AND STROKE (ELIQUIS ) ORALLY DISCONT INUED 05/09/2023 [id number] 3 MARIANO GARCIA 2022 180 [facility] CHOLECALCIF JONNA 25MCG (1,000UNIT) TAB TAKE FIVE TABLETS BY MOUTH QOD ORALLY ACTIVE AFRICA CHAUHAN 2016 [facility] FLUOCINONID E 0.1% CREAM,TOP APPLY A THIN LAYER TOPICALL Y TWICE A DAY NEEDED FOR RASH TOPICA LLY ACTIVE 12/13/2023 [id number] 3 AFRICA CHAUHAN 2022 60 [facility] FLUTICASONE 250MCG/SALM ETEROL 50MCG INHL,ORAL,D ISKUS,60 INHALE 1 PUFF BY INHALATI ON TWICE A DAY FOR COPD INHALA TION ACTIVE 07/17/2024 [id number] 4 AFRICA CHAUHAN 2023 3 [facility] FLUTICASONE 250MCG/SALM ETEROL 50MCG INHL,ORAL,D ISKUS,60 INHALE 1 PUFF BY INHALATI ON TWICE A DAY FOR COPD THIS REPLACES YOUR MOMETASO NE INHALA TION DISCONT INUED 08/08/2023 [id number] 4 AFRICA CHAUHAN 2022 3 [facility] FUROSEMIDE 20MG TAB TAKE ONE TABLET BY MOUTH THREE TIMES A WEEK FOR HEART FAILURE ORALLY ACTIVE 02/25/2024 [id number] 3 Hong DONAHUE 2022 39 [facility] FUROSEMIDE 20MG TAB TAKE ONE TABLET BY MOUTH EVERY OTHER DAY FOR HEART FAILURE ORALLY DISCONT INUED (EDIT) 08/13/2023 [id number] 3 AFRICA CHAUHAN 2022 45 [facility] FUROSEMIDE 20MG TAB TAKE ONE TABLET BY MOUTH EVERY MORNING FOR HEART FAILURE ORALLY DISCONT INUED 08/08/2023 [id number] 3 AFRICA CHAUHAN 2022 90 [facility] FUROSEMIDE 20MG TAB TAKE ONE TABLET BY MOUTH EVERY MORNING FOR HEART FAILURE ORALLY DISCONT INUED 11/16/2022 [id number] 3 AFRICA CHAUHAN 2021 90 [facility] HYDROCHLORO THIAZIDE 12.5MG TAB TAKE ONE TABLET BY MOUTH EVERY DAY FOR BLOOD PRESSURE ORALLY DISCONT INUED 08/08/2023 [id number] 3 AFRICA CHAUHAN 2022 90 [facility] METOPROLOL SUCCINATE 100MG TAB,SA TAKE ONE AND ONE-HALF TABLETS BY MOUTH EVERY DAY ORALLY DISCONT INUED 11/16/2022 [id number] 3 AFRICA CHAUHAN 2021 135 [facility] METOPROLOL SUCCINATE 50MG TAB,SA TAKE THREE TABLETS BY MOUTH EVERY DAY FOR BLOOD PRESSURE ORALLY DISCONT INUED 08/08/2023 [id number] 3 AFRICA CHAUHAN 2022 270 [facility] METOPROLOL TARTRATE 100MG TAB TAKE ONE TABLET BY MOUTH TWICE A DAY FOR BLOOD PRESSURE ORALLY ACTIVE 12/13/2023 [id number] 4 AFRICA CHAUHAN 2022 180 [facility] MOMETASONE FUROATE 220MCG/INHL INHL,ORAL,6 0 INHALE 1 PUFF BY MOUTH TWICE A DAY TO PREVENT TROUBLE BREATHIN G TWIST COVER ON AND OFF TO LOAD NEXT DOSERI NSE MOUTH AFTER USING * DO NOT WASH INHALER ORALLY DISCONT INUED 11/16/2022 [id number] 3 AFRICA CHAUHAN 2021 3 [facility] NIFEDIPINE (EQV-CC) 60MG TAB,SA TAKE ONE TABLET BY MOUTH EVERY DAY FOR BLOOD PRESSURE ORALLY DISCONT INUED BY PROVIDE R 08/08/2023 [id number] 3 AFRICA CHAUHAN 2022 90 [facility] NIFEDIPINE (EQV-CC) 60MG TAB,SA TAKE ONE TABLET BY MOUTH EVERY DAY FOR BLOOD PRESSURE ORALLY DISCONT INUED 09/11/2022 [id number] 3 AFRICA CHAUHAN 2022 90 [facility] NIFEDIPINE (EQV-CC) 60MG TAB,SA TAKE ONE TABLET BY MOUTH EVERY DAY FOR BLOOD PRESSURE ORALLY DISCONT INUED 08/28/2022 [id number] 3 AFRICA CHAUHAN 2022 90 [facility] NIFEDIPINE (EQV-CC) 90MG TAB,SA TAKE ONE TABLET BY MOUTH EVERY DAY FOR BLOOD PRESSURE ORALLY SUSPEND ED 07/17/2024 [id number] 4 AFRICA CHAUHAN 2023 90 [facility] NIFEDIPINE (EQV-CC) 90MG TAB,SA TAKE ONE TABLET BY MOUTH EVERY DAY FOR BLOOD PRESSURE INCREASE D DOSE PER CO-MANAG ED CARE INCREASE D DOSE PER CO-MANAG ED CARE ORALLY DISCONT INUED 12/13/2023 [id number] 4 AFRICA CHAUHAN 2022 90 [facility] POTASSIUM CHLORIDE 10MEQ TAB,SA TAKE ONE TABLET BY MOUTH THREE TIMES A WEEK FOR POTASSIU M SUPPLEME NT TAKE WITH FUROSEMI DE ORALLY ACTIVE 02/25/2024 [id number] 3 Hong DONAHUE A 2022 39 [facility] POTASSIUM CHLORIDE 10MEQ TAB,SA TAKE ONE TABLET BY MOUTH EVERY OTHER DAY FOR POTASSIU M SUPPLEME NT ORALLY DISCONT INUED (EDIT) 08/13/2023 [id number] 3 AFRICA CHAUHAN 2022 45 [facility] POTASSIUM CHLORIDE 10MEQ TAB,SA TAKE ONE TABLET BY MOUTH EVERY DAY FOR CONGESTI VE HEART FAILURE ORALLY DISCONT INUED 08/08/2023 [id number] 3 AFRICA CHAUHAN 2022 90 [facility] POTASSIUM CHLORIDE 10MEQ TAB,SA TAKE ONE TABLET BY MOUTH EVERY DAY FOR CONGESTI VE HEART FAILURE ORALLY DISCONT INUED 11/16/2022 [id number] 3 AFRICA CHAUHAN 2021 90 [facility] ROSUVASTATI N CA 20MG TAB TAKE ONE TABLET BY MOUTH AT BEDTIME FOR CORONARY ARTERY DISEASE ORALLY HOLD 07/17/2024 [id number] AFRICA CHAUHAN 2023 90 [facility] ROSUVASTATI N CA 20MG TAB TAKE ONE TABLET BY MOUTH AT BEDTIME FOR CORONARY ARTERY DISEASE ORALLY DISCONT INUED 08/08/2023 [id number] 4 AFRICA CHAUHAN 2022 90 [facility] TAMSULOSIN HCL 0.4MG CAP TAKE ONE CAPSULE BY MOUTH EVERY EVENING FOR PROSTATE ORALLY ACTIVE 07/17/2024 [id number] 4 AFRICA CHAUHAN 2023 30 [facility] Allergies, Adverse Reactions, Alerts Combined list of allergies from Department of Defense and Veterans Affairs facilities. It does not include entries that were removed or entered in error. Substance Category Reaction Severity Reaction type Status Date Reported Comments Source LISINOPRIL Propensity to adverse reactions to drug (finding) Cough active 0 [facility] Immunizations Combined list of available immunizations from the Department of Defense and Veterans Affairs facilities. Immunization Series Date Given Administered By Site Reaction Lot Number CVX Code Drug Electrode Cleaner Status Comments Source COVID-19 (Giggzo), MRNA, LNP-S, BIVALENT, PF, 30 MCG/0.3 ML DOSE 2022 300 complet ed [facility] COVID-19 (PFIZER), MRNA, LNP-S, PF, 30 MCG/0.3 ML DOSE, JAMES-SUCROSE (AGES 12+ YEARS) 2021 217 complet ed [facility] COVID-19 (PFIZER), MRNA, LNP-S, PF, 30 MCG/0.3 ML DOSE 2020 208 complet ed [facility] ZOSTER RECOMBINANT 2 2020 187 complet ed [facility] INFLUENZA VACCINE, QUADRIVALENT, ADJUVANTED 2020 205 complet ed [facility] INFLUENZA, UNSPECIFIED FORMULATION 2020 88 complet ed [facility] ZOSTER RECOMBINANT 1 2020 187 complet ed [facility] COVID-19 (Giggzo), MRNA, LNP-S, PF, 30 MCG/0.3 ML DOSE 2 2020 208 complet ed [facility] COVID-19 (PFIZER), MRNA, LNP-S, PF, 30 MCG/0.3 ML DOSE 1 2020 208 complet ed [facility] INFLUENZA VACCINE, QUADRIVALENT, ADJUVANTED 2019 205 complet ed [facility] INFLUENZA, TRIVALENT, ADJUVANTED 2018 168 complet ed [facility] INFLUENZA, SEASONAL, INJECTABLE 2018 141 complet ed [facility] INFLUENZA, SEASONAL, INJECTABLE 2017 141 complet ed [facility] INFLUENZA, TRIVALENT, ADJUVANTED 2017 168 complet ed [facility] INFLUENZA, HIGH DOSE SEASONAL 2016 135 complet ed [facility] PNEUMOCOCCAL POLYSACCHARID E PPV23 2016 33 complet ed [employer] , [id number], 06/03/18 [facility] TD (ADULT), 2 LF TETANUS TOXOID, PRESERVATIVE FREE, ADSORBED 2016 09 complet ed [employer] [id number], 12/19/18 [facility] INFLUENZA, HIGH DOSE SEASONAL 2016 135 complet ed [facility] PNEUMOCOCCAL POLYSACCHARID E PPV23 2016 33 complet ed [facility] INFLUENZA, HIGH DOSE SEASONAL 2015 135 complet ed [facility] PNEUMOCOCCAL CONJUGATE PCV 13 2015 133 complet ed [employer] [facility] PNEUMOCOCCAL CONJUGATE PCV 13 2014 133 complet ed [facility] INFLUENZA, UNSPECIFIED FORMULATION 2013 88 complet ed [facility] INFLUENZA, UNSPECIFIED FORMULATION 2013 88 complet ed [facility] INFLUENZA, UNSPECIFIED FORMULATION 2011 88 complet ed [facility] INFLUENZA, UNSPECIFIED FORMULATION 2010 88 complet ed [facility] PNEUMOCOCCAL, UNSPECIFIED FORMULATION 2009 109 complet ed [employer],093 02,10/21/ 011 [facility] TDAP 2009 115 complet ed [facility] ZOSTER LIVE 2008 121 complet ed [facility] TDAP 2007 115 complet ed private [facility] ZOSTER LIVE 2006 121 complet ed [facility] Results Combined list of recent [...] PM Reporting Lab: [facility] [address] Performing Lab: [facility] [address] [facility] URINALYS IS SPECIFIC GRAVITY OF URINE 1.006 1.003 - 1.035 07/16 Specimen Type: URINE No comment entered. Ordering Provider: TERRENCE CHAUHAN Report Released Date/Time: Jul 17, 2023 04:23 PM Reporting Lab: [facility] [address] Performing Lab: [facility] [address] [facility] URINALYS IS BILIRUBIN. TOTAL [PRESENCE] IN URINE BY TEST STRIP NEGATIVE 07/16 Specimen Type: URINE No comment entered. Ordering Provider: TERRENCE CHAUHAN Report Released Date/Time: Jul 17, 2023 04:23 PM Reporting Lab: [facility] [address] Performing Lab: [facility] [address] [facility] URINALYS IS KETONES [MASS/VOLU ME] IN URINE BY TEST STRIP NEGATIVE 07/16 Specimen Type: URINE No comment entered. Ordering Provider: TERRENCE CHAUHAN Report Released Date/Time: Jul 17, 2023 04:23 PM Reporting Lab: [facility] [address] Performing Lab: [facility] [address] [facility] URINALYS IS GLUCOSE [MASS/VOLU ME] IN URINE BY TEST STRIP NEGATIVE 07/16 Specimen Type: URINE No comment entered. Ordering Provider: TERRENCE CHAUHAN Report Released Date/Time: Jul 17, 2023 04:23 PM Reporting Lab: [facility] [address] Performing Lab: [address] [place] [facility] URINALYS IS PROTEIN [MASS/VOLU ME] IN URINE BY TEST STRIP NEGATIVE 07/16 Specimen Type: URINE No comment entered. Ordering Provider: TERRENCE CHAUHAN Report Released Date/Time: Jul 17, 2023 04:23 PM Reporting Lab: [facility] [address] Performing Lab: [facility] [address] [place] [facility] URINALYS IS PH OF URINE BY TEST STRIP 7.0 5.0 - 8.0 07/16 Specimen Type: URINE No comment entered. Ordering Provider: TERRENCE CHAUHAN Report Released Date/Time: Jul 17, 2023 04:23 PM Reporting Lab: [facility] [address] Performing Lab: [facility] [address] [place] [facility] URINALYS IS LEUKOCYTES [#/AREA] IN URINE SEDIMENT BY MICROSCOPY HIGH POWER FIELD <1 0 - 7 07/16 Specimen Type: URINE No comment entered. Ordering Provider: TERRENCE CHAUHAN Report Released Date/Time: Jul 17, 2023 04:23 PM Reporting Lab: [facility] [address] Performing Lab: [facility] [address] [place] [facility] URINALYS IS BACTERIA [PRESENCE] IN URINE SEDIMENT BY LIGHT MICROSCOPY NONE SEEN 07/16 Specimen Type: URINE No comment entered. Ordering Provider: TERRENCE CHAUHAN Report Released Date/Time: Jul 17, 2023 04:23 PM Reporting Lab: [facility] [address] Performing Lab: [facility] [address] [place] [facility] URINALYS IS ERYTHROCYT ES [#/AREA] IN URINE SEDIMENT BY MICROSCOPY HIGH POWER FIELD <1 0 - 3 07/16 Specimen Type: URINE No comment entered. Ordering Provider: TERRENCE CHAUHAN Report Released Date/Time: Jul 17, 2023 04:23 PM Reporting Lab: [facility] [address] Performing Lab: [facility] [address] [place] [facility] URINALYS IS APPEARANCE OF URINE CLEAR 07/16 Specimen Type: URINE No comment entered. Ordering Provider: TERRENCE CHAUHAN Report Released Date/Time: Jul 17, 2023 04:23 PM Reporting Lab: [facility] [address] Performing Lab: [facility] [address] [place] [facility] URINALYS IS EPITHELIAL CELLS.SQUA MOUS [#/AREA] IN URINE SEDIMENT BY MICROSCOPY HIGH POWER FIELD NONE SEEN 07/16 Specimen Type: URINE No comment entered. Ordering Provider: TERRENCE CHAUHAN Report Released Date/Time: Jul 17, 2023 04:23 PM Reporting Lab: [facility] [address] Performing Lab: [facility] [address] [place] [facility] URINALYS IS HEMOGLOBIN [PRESENCE] IN URINE BY TEST STRIP NEGATIVE 07/16 Specimen Type: URINE No comment entered. Ordering Provider: TERRENCE CHAUHAN Report Released Date/Time: Jul 17, 2023 04:23 PM Reporting Lab: [facility] [address] Performing Lab: [facility] [address] [place] [facility] URINALYS IS NITRITE [PRESENCE] IN URINE BY TEST STRIP NEGATIVE 07/16 Specimen Type: URINE No comment entered. Ordering Provider: TERRENCE CHAUHAN Report Released Date/Time: Jul 17, 2023 04:23 PM Reporting Lab: [facility] [address] Performing Lab: [facility] [address] [place] [facility] URINALYS IS LEUKOCYTE ESTERASE [PRESENCE] IN URINE BY TEST STRIP NEGATIVE 07/16 Specimen Type: URINE No comment entered. Ordering Provider: TERRENCE CHAUHAN Report Released Date/Time: Jul 17, 2023 04:23 PM Reporting Lab: [facility] [address] Performing Lab: [facility] [address] [place] [facility] HEMOGLOB IN A1C HEMOGLOBIN A1C/HEMOGL OBIN.TOTAL [...] PM Reporting Lab: [facility] [address] Performing Lab: [facility] [address] [place] [facility] BASIC METABOLI C PANEL+MG CREATININE [MASS/VOLU ME] IN SERUM OR PLASMA 1.3 0.7 - 1.2 07/16 H Specimen Type: PLASMA No comment entered. Ordering Provider: TERRENCE CHAUHAN Report Released Date/Time: August 07, 2022 02:21 PM Reporting Lab: [facility] [address] Performing Lab: [facility] [address] [place] [facility] BASIC METABOLI C PANEL+MG UREA NITROGEN [MASS/VOLU ME] IN SERUM OR PLASMA 15 8 - 26 07/16 Specimen Type: PLASMA No comment entered. Ordering Provider: TERRENCE CHAUHAN Report Released Date/Time: August 07, 2022 02:21 PM Reporting Lab: [facility] [address] Performing Lab: [facility] [address] [place] [facility] BASIC METABOLI C PANEL+MG GLUCOSE [MASS/VOLU ME] IN SERUM OR PLASMA 84 70 - 100 07/16 Specimen Type: PLASMA No comment entered. Ordering Provider: TERRENCE CHAUHAN Report Released Date/Time: August 07, 2022 02:21 PM Reporting Lab: [facility] [address] Performing Lab: [facility] [address] [place] [facility] BASIC METABOLI C PANEL+MG SODIUM [MOLES/VOL UME] IN SERUM OR PLASMA 137 136 - 145 07/16 Specimen Type: PLASMA No comment entered. Ordering Provider: TERRENCE CHAUHAN Report Released Date/Time: August 07, 2022 02:21 PM Reporting Lab: [facility] [address] Performing Lab: [facility] [address] [place] [facility] BASIC METABOLI C PANEL+MG POTASSIUM [MOLES/VOL UME] IN SERUM OR PLASMA 4.6 3.5 - 5.1 07/16 Specimen Type: PLASMA No comment entered. Ordering Provider: TERRENCE CHAUHAN Report Released Date/Time: August 07, 2022 02:21 PM Reporting Lab: [facility] [address] Performing Lab: [facility] [address] [place] [facility] BASIC METABOLI C PANEL+MG CHLORIDE [MOLES/VOL UME] IN SERUM OR PLASMA 105 98 - 107 07/16 Specimen Type: PLASMA No comment entered. Ordering Provider: TERRENCE CHAUHAN Report Released Date/Time: August 07, 2022 02:21 PM Reporting Lab: [facility] [address] Performing Lab: [facility] [address] [place] [facility] BASIC METABOLI C PANEL+MG CARBON DIOXIDE, TOTAL [MOLES/VOL UME] IN SERUM OR PLASMA 24 22 - 29 07/16 Specimen Type: PLASMA No comment entered. Ordering Provider: TERRENCE CHAUHAN Report Released Date/Time: August 07, 2022 02:21 PM Reporting Lab: [facility] [address] Performing Lab: [facility] [address] [place] [facility] BASIC METABOLI C PANEL+MG CALCIUM [MASS/VOLU ME] IN SERUM OR PLASMA 8.9 8.4 - 10.2 07/16 Specimen Type: PLASMA No comment entered. Ordering Provider: TERRENCE CHAUHAN Report Released Date/Time: August 07, 2022 02:21 PM Reporting Lab: [facility] [address] Performing Lab: [facility] [address] [place] [facility] BASIC METABOLI C PANEL+MG MAGNESIUM [MASS/VOLU ME] IN SERUM OR PLASMA 2.1 1.6 - 2.6 07/16 Specimen Type: PLASMA No comment entered. Ordering Provider: TERRENCE CHAUHAN Report Released Date/Time: August 07, 2022 02:21 PM Reporting Lab: [facility] [address] Performing Lab: [facility] [address] [place] [facility] BASIC METABOLI C PANEL+MG ANION GAP IN SERUM OR PLASMA 8 5 - 15 07/16 Specimen Type: PLASMA No comment entered. Ordering Provider: TERRENCE CHAUHAN Report Released Date/Time: August 07, 2022 02:21 PM Reporting Lab: [facility] [address] Performing Lab: [facility] [address] [place] [facility] BASIC METABOLI C PANEL+MG GLOMERULAR FILTRATION RATE/1.73 SQ M.PREDICTE D [VOLUME RATE/AREA] IN SERUM, PLASMA OR BLOOD BY CREATININE -BASED FORMULA (CKD-EPI 2020) 56 60 07/16 L Specimen Type: PLASMA No comment entered. Ordering Provider: TERRENCE CHAUHAN Report Released Date/Time: August 07, 2022 02:21 PM Reporting Lab: [facility] [address] Performing Lab: [facility] [address] [place] [facility] CBC LEUKOCYTES [#/VOLUME] IN BLOOD BY AUTOMATED COUNT 8.72 4.0 - 11.0 07/16 Specimen Type: BLOOD No comment entered. Ordering Provider: TERRENCE CHAUHAN Report Released Date/Time: August 07, 2022 02:21 PM Reporting Lab: [facility] [address] Performing Lab: [facility] [address] [place] [facility] CBC ERYTHROCYT ES [#/VOLUME] IN BLOOD BY AUTOMATED COUNT 4.11 4.6 - 6.2 07/16 L Specimen Type: BLOOD No comment entered. Ordering Provider: TERRENCE CHAUHAN Report Released Date/Time: August 07, 2022 02:21 PM Reporting Lab: [facility] [address] Performing Lab: [facility] [address] [place] [facility] CBC HEMOGLOBIN [MASS/VOLU ME] IN BLOOD 13.4 13.5 - 17.9 07/16 L Specimen Type: BLOOD No comment entered. Ordering Provider: TERRENCE CHAUHAN Report Released Date/Time: August 07, 2022 02:21 PM Reporting Lab: [facility] [address] Performing Lab: [facility] [address] [place] [facility] CBC HEMATOCRIT [VOLUME FRACTION] OF BLOOD BY AUTOMATED COUNT 39.7 41 - 54 07/16 L Specimen Type: BLOOD No comment entered. Ordering Provider: TERRENCE CHAUHAN Report Released Date/Time: August 07, 2022 02:21 PM Reporting Lab: [facility] [address] Performing Lab: [facility] [address] [place] [facility] CBC MCV [ENTITIC VOLUME] BY AUTOMATED COUNT 96.6 80 - 100 07/16 Specimen Type: BLOOD No comment entered. Ordering Provider: TERRENCE CHAUHAN Report Released Date/Time: August 07, 2022 02:21 PM Reporting Lab: [facility] [address] Performing Lab: [facility] [address] [place] [facility] CBC MCH [ENTITIC MASS] BY AUTOMATED COUNT 32.6 27 - 33 07/16 Specimen Type: BLOOD No comment entered. Ordering Provider: TERRENCE CHAUHAN Report Released Date/Time: August 07, 2022 02:21 PM Reporting Lab: [facility] [address] Performing Lab: [facility] [phone] [place] [facility] CBC MCHC [MASS/VOLU ME] BY AUTOMATED COUNT 33.8 32.0 - 37.5 07/16 Specimen Type: BLOOD No comment entered. Ordering Provider: TERRENCE CHAUHAN Report Released Date/Time: August 07, 2022 02:21 PM Reporting Lab: [facility] [address] Performing Lab: [facility] [id number] [facility] CBC PLATELETS [#/VOLUME] IN BLOOD BY AUTOMATED COUNT 159 150 - 400 07/16 Specimen Type: BLOOD No comment entered. Ordering Provider: TERRENCE CHAUHAN Report Released Date/Time: August 07, 2022 02:21 PM Reporting Lab: [facility] [address] Performing Lab: [facility] [phone] [place] [facility] CBC PLATELET MEAN VOLUME [ENTITIC VOLUME] IN BLOOD BY AUTOMATED COUNT 9.6 7.4 - 10.4 07/16 Specimen Type: BLOOD No comment entered. Ordering Provider: TERRENCE CHAUHAN Report Released Date/Time: August 07, 2022 02:21 PM Reporting Lab: [facility] [id number] Performing Lab: [facility] [address] [facility] CBC ERYTHROCYT E DISTRIBUTI ON WIDTH [RATIO] BY AUTOMATED COUNT 14.1 11.5 - 14.5 07/16 Specimen Type: BLOOD No comment entered. Ordering Provider: TERRENCE CHAUHAN Report Released Date/Time: August 07, 2022 02:21 PM Reporting Lab: [facility] [address] Performing Lab: [facility] [address] [facility] LIVER FUNCTION TESTS BILIRUBIN. TOTAL [MASS/VOLU ME] IN SERUM OR PLASMA 0.8 0.2 - 1.2 07/16 Specimen Type: PLASMA No comment entered. Ordering Provider: TERRENCE CHAUHAN Report Released Date/Time: August 07, 2022 02:21 PM Reporting Lab: [facility] [address] Performing Lab: [facility] [address] [place] [facility] LIVER FUNCTION TESTS ALKALINE PHOSPHATAS E [ENZYMATIC ACTIVITY/V OLUME] IN SERUM OR PLASMA 52 40 - 150 07/16 Specimen Type: PLASMA No comment entered. Ordering Provider: TERRENCE CHAUHAN Report Released Date/Time: August 07, 2022 02:21 PM Reporting Lab: [facility] [address] Performing Lab: [facility] [address] [place] [facility] LIVER FUNCTION TESTS ALANINE AMINOTRANS FERASE [ENZYMATIC ACTIVITY/V OLUME] IN SERUM OR PLASMA 20 <55 - 55 07/16 Specimen Type: PLASMA No comment entered. Ordering Provider: TERRENCE CHAUHAN Report Released Date/Time: August 07, 2022 02:21 PM Reporting Lab: [facility] [address] Performing Lab: [facility] [address] [place] [facility] LIVER FUNCTION TESTS ASPARTATE AMINOTRANS FERASE [ENZYMATIC ACTIVITY/V OLUME] IN SERUM OR PLASMA 19 <34 - 34 07/16 Specimen Type: PLASMA No comment entered. Ordering Provider: TERRENCE CHAUHAN Report Released Date/Time: August 07, 2022 02:21 PM Reporting Lab: [facility] [address] Performing Lab: [facility] [address] [place] [facility] LIVER FUNCTION TESTS GAMMA GLUTAMYL TRANSFERAS E [ENZYMATIC ACTIVITY/V OLUME] IN SERUM OR PLASMA 38 <64 - 64 07/16 Specimen Type: PLASMA No comment entered. Ordering Provider: TERRENCE CHAUHAN Report Released Date/Time: August 07, 2022 02:21 PM Reporting Lab: [facility] [address] Performing Lab: [facility] [address] [place] [facility] PSA PROSTATE SPECIFIC AG [MASS/VOLU ME] IN SERUM OR PLASMA 3.84 <4.00 - 4.00 07/16 Specimen Type: SERUM No comment entered. Ordering Provider: TERRENCE CHAUHAN Report Released Date/Time: August 07, 2022 02:21 PM Reporting Lab: [facility] [address] Performing Lab: [facility] [address] [place] [facility] CREATINI NE(INCLU SATHYA EGFR) CREATININE [MASS/VOLU ME] IN SERUM OR PLASMA 1.2 0.7 - 1.2 04/16 Specimen Type: PLASMA No comment entered. Ordering Provider: HUYEN HYLTON Report Released Date/Time: Mar 07, 2023 02:00 PM Reporting Lab: [facility] [address] Performing Lab: [facility] [address] [place] [facility] CREATINI NE(INCLU SATHYA EGFR) GLOMERULAR FILTRATION RATE/1.73 SQ M.PREDICTE D [VOLUME RATE/AREA] IN SERUM, PLASMA OR BLOOD BY CREATININE -BASED FORMULA (CKD-EPI 2020) 62 60 04/16 Specimen Type: PLASMA No comment entered. Ordering Provider: HUYEN HYLTON Report Released Date/Time: Mar 07, 2023 02:00 PM Reporting Lab: [facility] [address] Performing Lab: [facility] [address] [place] [facility] AST/SGOT ASPARTATE AMINOTRANS FERASE [ENZYMATIC ACTIVITY/V OLUME] IN SERUM OR PLASMA 22 <34 - 34 04/16 Specimen Type: PLASMA No comment entered. Ordering Provider: HUYEN HYLTON Report Released Date/Time: Mar 07, 2023 02:00 PM Reporting Lab: [facility] [address] Performing Lab: [facility] [address] [place] [facility] CBC LEUKOCYTES [#/VOLUME] IN BLOOD BY AUTOMATED COUNT 8.06 4.0 - 11.0 04/16 Specimen Type: BLOOD No comment entered. Ordering Provider: HUYEN HYLTON S Report Released Date/Time: Mar 07, 2023 02:00 PM Reporting Lab: [facility] [address] Performing Lab: [facility] [address] [place] [facility] CBC ERYTHROCYT ES [#/VOLUME] IN BLOOD BY AUTOMATED COUNT 4.03 4.6 - 6.2 04/16 L Specimen Type: BLOOD No comment entered. Ordering Provider: HUYEN HYLTON S Report Released Date/Time: Mar 07, 2023 02:00 PM Reporting Lab: [facility] [address] Performing Lab: [place] [address] [place] [facility] CBC HEMOGLOBIN [MASS/VOLU ME] IN BLOOD 13.1 13.5 - 17.9 04/16 L Specimen Type: BLOOD No comment entered. Ordering Provider: HUYEN HYLTON S Report Released Date/Time: Mar 07, 2023 02:00 PM Reporting Lab: [facility] [address] Performing Lab: [address] [place] [facility] CBC HEMATOCRIT [VOLUME FRACTION] OF BLOOD BY AUTOMATED COUNT 38.9 41 - 54 04/16 L Specimen Type: BLOOD No comment entered. Ordering Provider: HUYEN HYLTON S Report Released Date/Time: Mar 07, 2023 02:00 PM Reporting Lab: [facility] [address] Performing Lab: [facility] [address] [place] [facility] CBC MCV [ENTITIC VOLUME] BY AUTOMATED COUNT 96.5 80 - 100 04/16 Specimen Type: BLOOD No comment entered. Ordering Provider: HUYEN HYLTON S Report Released Date/Time: Mar 07, 2023 02:00 PM Reporting Lab: [facility] [address] Performing Lab: [facility] [address] [place] [facility] CBC MCH [ENTITIC MASS] BY AUTOMATED COUNT 32.5 27 - 33 04/16 Specimen Type: BLOOD No comment entered. Ordering Provider: HUYEN HYLTON S Report Released Date/Time: Mar 07, 2023 02:00 PM Reporting Lab: [facility] [address] Performing Lab: [facility] [address] [place] [facility] CBC MCHC [MASS/VOLU ME] BY AUTOMATED COUNT 33.7 32.0 - 37.5 04/16 Specimen Type: BLOOD No comment entered. Ordering Provider: HUYEN HYLTON Report Released Date/Time: Mar 07, 2023 02:00 PM Reporting Lab: [facility] [address] Performing Lab: [facility] [address] [place] [facility] CBC PLATELETS [#/VOLUME] IN BLOOD BY AUTOMATED COUNT 157 150 - 400 04/16 Specimen Type: BLOOD No comment entered. Ordering Provider: HUYEN HYLTON S Report Released Date/Time: Mar 07, 2023 02:00 PM Reporting Lab: [facility] [address] Performing Lab: [facility] [address] [place] [facility] CBC PLATELET MEAN VOLUME [ENTITIC VOLUME] IN BLOOD BY AUTOMATED COUNT 9.7 7.4 - 10.4 04/16 Specimen Type: BLOOD No comment entered. Ordering Provider: HUYEN HYLTON Report Released Date/Time: Mar 07, 2023 02:00 PM Reporting Lab: [facility] [address] Performing Lab: [facility] [address] [facility] CBC ERYTHROCYT E DISTRIBUTI ON WIDTH [RATIO] BY AUTOMATED COUNT 14.5 11.5 - 14.5 04/16 Specimen Type: BLOOD No comment entered. Ordering Provider: HUYEN HYLTON Report Released Date/Time: Mar 07, 2023 02:00 PM Reporting Lab: [facility] [address] Performing Lab: [facility] [address] [place] [facility] ALT/SGPT ALANINE AMINOTRANS FERASE [ENZYMATIC ACTIVITY/V OLUME] IN SERUM OR PLASMA 19 <55 - 55 04/16 Specimen Type: PLASMA No comment entered. Ordering Provider: HUYEN HYLTON Report Released Date/Time: Mar 07, 2023 02:00 PM Reporting Lab: [facility] [address] Performing Lab: [facility] [address] [facility] Vital Signs Combined list of inpatient and outpatient Vital Signs from Department of Defense and Veterans Affairs, ranging from 12 months to all on record, depending upon the facility. Vital Sign Value Date Comments Source Encounters Combined list of: 1) Encounters from [facility] facilities going back up to thelast 18 months. 2) Encounters from the Department of [facility] facilities going back up to 280 months. Location Location Details Encounter Type Encounter Number Reason For Visit Attending Provider ADM Date DC Date Status Disposition Source [place] [facility] Outpatient Encounter [id number] OLESYA ROGERS 02/14 [facility] [place] [facility] Outpatient Encounter [id number] 02/14 [facility] [place] [facility] Outpatient Encounter [id number] 04/24 [facility] EM[facility]PT VISIT SF MDM [id number] Diagnos is: ICD-10- CM Z76.0 Encount er for issue of repeat prescri ption<b r/> AICHA GALLEGOS 05/09 [facility] Outpatient Encounter [id number] 05/09 [facility] Outpatient Encounter [id number] 06/12 [facility] [place] [facility] Outpatient Encounter [id number] 07/15 [facility] OFFICE O/P EST MOD 30-39 MIN [id number] Diagnos is: ICD-10- CM Z00.01 Encount er for general adult medical exam w abnorma l finding s
DANETTE LIN E 08/07 [facility] [place] [facility] Outpatient Encounter [id number] 08/07 [facility] [place] [facility] Outpatient Encounter [id number] OLESYA ROGERS 08/12 [facility] [place] [facility] Outpatient Encounter [id number] OLESYA ROGERS 08/12 [place] [facility] [place] [facility] Out[place] Encounter [id number] Ana CHAUHAN 09/12 [place] [facility] [place] [facility] Outpatient Encounter [id number] 11/06 [place] [facility] [place] [facility] Outpatient Encounter [id number] 12/08 [place] [facility] [place] [facility] Outpatient Encounter [id number] 12/12 [place] [facility] [place] [facility] Out[place] [facility]counter [id number] 01/17 [place] [facility] [place] [facility] Out[facility] Encounter [id number] 02/19 [facility] [place] [facility] Outpatient Encounter [id number] 02/24 [place] [facility] [place] [facility] Outpatient Encounter [id number] 03/07 [facility] [place] [facility] QNHP OL DIG ASSMT&MGMT 5-10 [id number] Diagnos is: ICD-10- CM Z79.01 penitentiary (curren t) use of anticoa gulants
ELLEN GARCIA 05/29 [facility] [place] [facility] OFFICE O/P EST MOD 30 MIN [id number] Diagnos is: ICD-10- CM Z00.01 Encount er for general adult medical exam w abnorma l finding s
Ana CHAUHAN 07/16 [place] [facility] [place] [facility] Outpatient Encounter [id number] 07/17 [facility] Social History Combined list of available smoking, tobacco, and other social history from Department of Defense and Veterans Affairs facilities. Social History Type Response Date Comment Sour e Tobacco smoking status NHIS [place]-TOBACCO FORMER USER 07/17/2023 [facility] History of tobacco use [place] QU[place] 1 TO < 5 YRS 07/17/2023 [facility] History of tobacco use VA-TOBACCO FORMER USER 08/07/2022 [facility] History of tobacco use [place] FORMER US[place] 10/16/2020 [facility] History of tobacco use [place]-TO[place] USE CO UNSEL NO 03/29/2019 [facility] History of tobacco use [place]-TOBACCO USE WI 30 MIN OF WAKEUP 02/17/2018 [facility] History of tobacco use CURRENT TOBACCO USER 02/12/2017 [facility] History of tobacco use CURRENT TOBACCO USER 04/25/2015 [facility] History of tobacco use CURRENT TOBACCO USER 04/21/2014 [facility] History of tobacco use CURRENT TOBACCO USER 04/20/2013 [facility] History of tobacco use CURRENT TOBACCO USER 03/20/2012 [facility] History of tobacco use CURRENT TOBACCO USER 02/06/2011 [facility] History of tobacco use CURRENT TOBACCO USER 01/02/2010 [facility]
--- OUTSIDE RECORDS SUMMARY | 2023-08-22 14:55 | XMS_ITS | Data Portability ---
Author Name Unknown Address [address] [place] [address] Phone [phone] Organization [place] - [facility], [employer] Address [address] [place] [address] Assessment Encounter Date Assessment Date Assessment LastModified [...] user Active 2015 Tobacco user; Original Code: 287797766 Origi nal Codesystem: SNOMED CT Classificati on: Medical Confirm ation Status: Probable Not Available [facility] 09[facility]17 Onychomycosis of toenails Active 2015 Onychomycosis of toenails; Original Code: 3213327391 Orig inal Codesystem: SNOMED CT Classificati on: Medical Confirm ation Status: Confirmed Not Available [facility] 09:10:17 Heart disease Active 2021 Heart disease; Original Code: 02363011 Origin al Codesystem: SNOMED CT Classificati on: Medical Confirm ation Status: Confirmed Not Available [facility] 09:10:17 Corns and callus Active 2015 Corns and callus; Original Code: 200906847 Origi nal Codesystem: SNOMED CT Classificati on: Medical Confirm ation Status: Confirmed Not Available [facility] 09:10:17 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; Original Code: 3448316509 Orig inal Codesystem: SNOMED CT Classificati on: Medical Confirm ation Status: Confirmed Not Available [facility] 09:10:17 Foot pain Active 2015 Foot pain; Original Code: 505911200 Origi nal Codesystem: SNOMED CT Classificati on: Medical Confirm ation Status: Confirmed Not Available [facility] 09:10:17 Acquired hallux valgus Active 2015 Acquired hallux valgus; Original Code: 135145101 Origi nal Codesystem: SNOMED CT Classificati on: Medical Confirm ation Status: Confirmed Not Available [facility] 09:10:17 Acquired hallux malleus Active 2015 Acquired hallux malleus; Original Code: 32593926 Origin al Codesystem: SNOMED CT Classificati on: Medical Confirm ation Status: Confirmed Not Available [facility] 3 09:10:17 Atrial fibrillation Active 2015 Atrial fibrillation; Original Code: 99192730 Origin al Codesystem: SNOMED CT Classificati on: Medical Confirm ation Status: Confirmed Not Available [facility] 3 09:10:17 Hypertensive disorder Active 2015 Hypertensive disorder; Original Code: 8772061836 Orig inal Codesystem: SNOMED CT Classificati on: Medical Confirm ation Status: Confirmed Not Available [facility] 09:10:17 Notes:H/O: anticoagulant the bharti Original Code: 733668604 Original Codesystem: SNOMED CT Classification: Medical Confirmation Status: Confirmed Problem Notes None recorded. Procedures Surgical History Date Name Laterality Status Provider Name and Address Organization Details Recorded Time 10/24/[address] Hong Andres DPM [address] [place] [address], [phone], [facility] 10/23/2022 11:44:57 07/25/[address] Hong Andres DPM [address] [place] [address], [phone], [facility] 07/24/2022 10:35:10 04/24/[address] Hong Andres DPM [address] [place] [address], [phone], [facility] 04/24/2022 [...] Updated DateTime 04/24/2022 190.5 cm 25 kg/m2 17239.47 g Mamta [facility] 04/24/2022 10:32:58 Social History None recorded. Functional Status None recorded. Mental Status None recorded. Family History Nothing Reported. Medical History No medical history recorded. Past Encounters Encounter ID Performer Location Encounter Start Date Encounter Closed Date Diagnosis/Indication Diagnosis SNOMED-CT Code [id number] Too Andres DPM [facility] [address] [place] [address] [address] [place] [address] 04/24/2022 10:31:04 04/24/2022 13:46:36 Onychomycosis 607432515 Peripheral vascular disease [id number] Too Andres DPM [facility] [address] [place] [address] 07/24/2022 10:14:25 07/25/2022 09:45:42 Onychomycosis 293659356 Peripheral vascular disease [id number] 7314 Too Andres DPM [facility] [address] [place] [address] 10/23/2022 10:13:43 10/24/2022 09:44:58 Onychomycosis 905649384 Peripheral vascular disease 242647003 Health Concerns Section Related Observation LastModified by Organization Detai ls LastModified Time None Recorded Concern Status LastModified by Organization Details LastModified Time None Recorded Advance Directives Directive None Recorded Payers Encounter Date Sequence Insurance Name Policy Number Policy Kevin Covered Member ID Kevin Member ID Guarantor Name 10/23/2022 1 [facility] ([place]PL[place] [id number] Bola Zurita [id number] Bola Zurita 07/24/2022 1 [employer] [id number] Bola Zurita [id number] Bola Zurita 04/24/2022 1 [place] [id number] Bola Zurita [id number] Bola Zurita Notes Date Note Type Note Provider Name and Address Organization Details Recorded Time 04/24/2022 text/html HPI Notes: Pawel salmeron is a 77 year old male established patient who presents with the chief complaint. Presents today for evaluation of problematic toenails and feet in general. They relate chronic thickening and deformity to their toenails that has not responded to self-trimming, topical gvla-ntj-knlvwmm anti-fungal therapy, foot soaks, and other similar conservative treatments. Nails are painful with catching on shoegear and socks. Denies any recent foot injury or infection. Claudication symptoms: No Burning symptoms: No Paresthesia: Subjective numbness to the left lower extremity consistent with his previous surgical procedures performed through [facility] surgery in the [facility] Patient presents for further evaluation and treatment options. Too Andres DPM [address] [place] [address], [phone], [facility] - [facility] 04/24/2022 11:14:44 07/24/2022 text/html HPI Notes: Pawel salmeron is a 77 year old male established patient who presents with the chief complaint. Presents today for evaluation of problematic toenails and feet in general. They relate chronic thickening and deformity to their toenails that has not responded to self-trimming, topical iink-uel-rqyhaky anti-fungal therapy, foot soaks, and other similar conservative treatments. Nails are painful with catching on shoegear and socks. Denies any recent foot injury or infection. Claudication symptoms: No Burning symptoms: No Paresthesia: Subjective numbness to the left lower extremity consistent with his previous surgical procedures performed through [facility] surgery in [facility] Patient presents for further evaluation and treatment options. Too Andres DPM [address] [place], [address], [facility] 07/24/2022 10:35:54 10/23/2022 text/html HPI Notes: Pawel salmeron is a 77 year old male established patient who presents with the chief complaint. Presents today for evaluation of problematic toenails and feet in general. They relate chronic thickening and deformity to their toenails that has not responded to self-trimming, topical joqx-uzq-datzspi anti-fungal therapy, foot soaks, and other similar conservative treatments. Nails are painful with catching on shoegear and socks. Denies any recent foot injury or infection. Claudication symptoms: No Burning symptoms: No Paresthesia: Subjective numbness to the left lower extremity consistent with his previous surgical procedures performed through [facility] in [facility] Patient presents for further evaluation and treatment options. Too Andres DPM [address] [place], [address], [facility] 10/23/2022 11:45:19
== END 2023-08-22 14:53 | disposition home or self-care (01) ==
LOC: WOUND 14:53
PROVIDERS: PCP Family Medicine; Visit Provider Nurse Practitioner Family
DX: L02.212 Cutaneous abscess of back [any part, except buttock and flank] (principal); L72.0 Epidermal cyst
CPT/HCPCS: G0463

== ENCOUNTER 2023-08-25 09:29 | Outpatient (CLI) | payer MEDICARE, BC, SELFPAY ==
--- OUTSIDE RECORDS SUMMARY | 2023-08-25 09:31 | XMS_ITS | Encounter Summary ---
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 Organization Department of Vetera Affairs Address [address] [place] [address] Support Name Relationship Address Phone JAVIER DE PAZ Next of [place] [address] [place] [address] LC DE PAZLU Emergency Contact [phone] [place] [phone] JAVIER DE PAZ Next of [place] [phone] [place] [address] Insurance Providers: All historical and current [...] Patient's Relationship to Policy Kevin BS [place] [facility] ([facility]) [facility] ORGANIZ [id number] Jan 05, 2010 [id number] DEPEN[employer] ON [employer] ANUSHA DE PAZ PATIENT MEDICARE ([facility]) MEDICARE () PART A Jan 05, 2010 PART A [id number] [phone] ANUSHA DE PAZ PATIENT MEDICARE (WN) MEDICARE (M) PART B Jan 05, 2010 PART B [id number] [phone] ANUSHA DE PAZ PATIENT MEDICARE (WN) MEDICARE () PART A Jan 05, 2010 PART A [id number] [facility] ANUSHA DE PAZ PATIENT MEDICARE (WNR) MEDICARE (M) PART A Jan 05, 2010 PART A [id number] [phone] ANUSHA DE PAZ PATIENT MEDICARE ([facility]) MEDICARE () PART B Jan 05, 2010 PART B [id number] [facility] [phone] ANUSHA DE PAZ PATIENT Selected Encounter This section includes the information on record at MD for the Encounter. Date/Time Encounter Type Encounter Description Reason Provider Source May 29, 2023 09:41 AM QNHP OL DIG ASSMT&MGMT 5-10 CLINICAL PHARMACY ICD-10-CM Z79.01 director long term care (current) use of anticoagulants EGRRI GARCIA [facility] Encounter Template Text not used by MD Assessments - Encounter Diagnoses This section includes the primary and secondary diagnoses documented for the Encounter. Date/Time Primary/Secondary Diagnosis Diagnosis Name Provider Source May 29, 2023 09:46 AM PRIMARY director long term care (current) use of anticoagulants GERRI GARCIA [facility] May 29, 2023 09:46 AM SECONDARY Unspecified atrial fibrillation GERRI GARCIA [facility] Plan of Treatment: Future Appointments (+ 6 months) and Future Tests (+/- 45 days) The Plan of Treatment section includes future care activities for the patient from all [facility] This section includes future appointments and future orders which are active, pending or scheduled. Future Appointments This section includes appointments that were scheduled to occur 6 months from the date of the Encounter, up to a maximum of 20 appointments. The data comes from all MD treatment facilities. Appointment Date/Time Appointment Type Appointme nt Facility Name Jul 17, 2023 03:00 PM AMBULATORY - MEDICINE [facility] Social History: Smoking Status (Most current) and Tobacco Use (All prior to encounter date) This section includes the most current, and the historical, smoking and tobacco- related health factors from the MD facility where the Encounter took place. Current Smoking Status This section includes the most current smoking, or tobacco-related health factor, from the MD facility where the Encounter took place. Date/Time Current Smoking Status Comment Facil ity August 07, 2022 01:30 PM MD-TOBACCO QUIT 1 TO < 5 YRS [facility] Tobacco Use History This section includes a history of the smoking, or tobacco-related health factors, that were collected on or before the date of the Encounter. The data comes from the MD facility where the Encounter took place. Date/Time Smoking Status/Tobacco Use Comment F acility August 07, 2022 01:30 PM MD-TOBACCO QUIT 1 TO < 5 YRS [facility] Oct 16, 2020 02:45 PM VA-TOBACCO FORMER USER [facility] Oct 16, 2020 02:45 PM VA-TOBACCO QUIT 15 YRS OR MORE [facility] Mar 29, 2019 10:59 AM VA-TOBACCO USE > 1 5 LESS THAN 30 YEARS [facility] Mar 29, 2019 10:59 AM VA-TOBACCO USE ADVICE [facility] Mar 29, 2019 10:59 AM VA-TOBACCO USE NATIONAL BUSINESS DIRECTOR NO [facility] Mar 29, 2019 10:59 AM VA-TOBACCO USE MED NO [facility] Mar 29, 2019 10:59 AM VA-TOBACCO USE WI 30 MIN OF WAKE UP [facility] Mar 29, 2019 10:59 AM VA-TOBACCO USER EVERY DAY [facility] Feb 17, 2018 03:39 PM VA-TOBACCO USE 30 YEARS OR MORE [facility] Feb 17, 2018 03:39 PM VA-TOBACCO USE ADVICE [facility] Feb 17, 2018 03:39 PM VA-TOBACCO USE NATIONAL BUSINESS DIRECTOR NO [facility] Feb 17, 2018 03:39 PM VA-TOBACCO USE MED NO [facility] Feb 17, 2018 03:39 PM VA-TOBACCO USE [place] 30 MIN OF WAKE UP [facility] Feb 17, 2018 03:39 PM VA-TOBACCO USER EVERY DAY [facility] Feb 12, 2017 12:38 PM CURRENT TOBACCO USER [facility] Apr 25, 2015 07:50 AM CURRENT TOBACCO USER [facility] Apr 21, 2014 08:25 AM CURRENT TOBACCO USER [facility] Apr 20, 2013 10:04 AM CURRENT TOBACCO USER [facility] Mar 20, 2012 09:53 AM CURRENT TOBACCO USER [facility] Feb 06, 2011 09:44 AM CURRENT TOBACCO USER [facility] Jan 02, 2010 09:22 AM CURRENT TOBACCO USER [facility] Encounter Notes: All associated encounter notes [...] 15 min /naina/ Court Garcia, Pharm.D. Clinical Solar Process Engineer Signed: 05/29/2023 09:46 [address] GARCIA [facility]
--- OUTSIDE RECORDS SUMMARY | 2023-08-25 09:31 | XMS_ITS | Encounter Summary ---
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 Organization Department of Vetera ns Affairs Address [address] [place] [address] Support Name Relationship Address Phone JAVIER DE PAZ Next of Kin [address] [place] [address] LC DE PAZLU Emergency Contact [phone] [address] [place] [phone] JAVIER DE PAZ Next of Kin [address] [address] [address] Insurance Providers: All historical [...] Relationship to Policy Kevin BC BS TX [facility] ([facility]) [facility] ORGANIZ [id number] Jan 05, 2010 [id number] [employer]EN[employer] ON [employer] ANUSHA DE PAZ PATIENT MEDICARE ([facility]) MEDICARE () PART A Jan 05, 2010 PART A [id number] [phone] ANUSHA DE PAZ PATIENT MEDICARE ([facility]) MEDICARE () PART B Jan 05, 2010 PART B [id number] [phone] ANUSHA DE PAZ PATIENT MEDICARE ([facility]) MEDICARE () PART A Jan 05, 2010 PART A [id number] [facility] ANUSHA DE PAZ PATIENT MEDICARE ([facility]) MEDICARE () PART B Jan 05, 2010 PART B [id number] [facility] [phone] ANUSHA DE PAZ PATIENT MEDICARE ([facility]) MEDICARE (M) PART A Jan 05, 2010 PART A [id number] [facility] [phone] ANUSHA DE PAZ PATIENT Selected Encounter This section includes the information on record at [place] for the Encounter. Date/Time Encounter Type Encounter Description Reason Pro vider Source Dec 08, 2022 11:11 AM Outpatient Encounter COMMUNITY CARE CONSULT IHE Encounter Template Text not used by SD Plan of Treatment: Future Appointments (+ 6 months) and Future Tests (+/- 45 days) The Plan of Treatment section includes future care activities for the patient from all [place] treatmentfacilities. This section includes future appointments and future orders which are active, pending or scheduled. Future Appointments This section includes appointments that were scheduled to occur 6 months from the date of the Encounter, up to a maximum of 20 appointments. The data comes from all [place] treatment facilities. Appointment Date/Time Appointment Type Appointme nt Facility Name Apr 16, 2023 12:00 PM AMBULATORY - NONE [facility] Social History: Smoking Status (Most current) and Tobacco Use (All prior to encounter date) This section includes the most current, and the historical, smoking and tobacco- related health factors from the SD facility where the Encounter took place. Current Smoking Status This section includes the most current smoking, or tobacco-related health factor, from the [place] facility where the Encounter took place. Date/Time Current Smoking Status Comment Facil ity August 07, 2022 01:30 PM VA-TOBACCO FORMER USER [facility] Tobacco Use History This section includes a history of the smoking, or tobacco-related health factors, that were collected on or before the date of the Encounter. The data comes from the [place] facility where the Encounter took place. 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 [facility] Mar 29, 2019 10:59 AM VA-TOBACCO USE MED NO [facility] Mar 29, 2019 10:59 AM VA-TOBACCO USE WI 30 MIN OF WAKE UP [facility] Mar 29, 2019 10:59 AM VA-TOBACCO USER EVERY DAY [facility] Feb 17, 2018 03:39 PM VA-TOBACCO USE 30 YEARS OR MORE [facility] Feb 17, 2018 03:39 PM VA-TOBACCO USE ADVICE [facility] Feb 17, 2018 03:39 PM 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 [facility] Feb 17, 2018 03:39 PM VA-TOBACCO USE MED NO [facility] Feb 17, 2018 03:39 PM VA-TOBACCO USE WI 30 MIN OF WAKE UP [facility] Feb 17, 2018 03:39 PM VA-TOBACCO USER EVERY DAY [facility] Feb 12, 2017 12:38 PM CURRENT TOBACCO USER [facility] Apr 25, 2015 07:50 AM CURRENT TOBACCO USER [facility] Apr 21, 2014 08:25 AM CURRENT TOBACCO USER [facility] Apr 20, 2013 10:04 AM CURRENT TOBACCO USER [facility] Mar 20, 2012 09:53 AM CURRENT TOBACCO USER [facility] Feb 06, 2011 09:44 AM CURRENT TOBACCO USER [facility] Jan 02, 2010 09:22 AM CURRENT TOBACCO USER [facility] Encounter Notes: All associated encounter notes This section contains the clinical notes associated to the Encounter. Date/Time Encounter Note(s) Provider Source Dec 08, 2022 11:11 AM PHARMACY NOTE: LOCAL TITLE: PHARMACY NON [place] CARE MEDICATIONS STANDARD TITLE: PHARMACY NOTE DATE OF NOTE: DEC 08, 2022@11:11 ENTRY DATE: DEC 08, 2022@11:11:15 AUTHOR: NATHEN MCPHERSON EXP COSIGNER: URGENCY: STATUS: COMPLETED [facility] Outpatient Pharmacy RECEIVED electronic prescription(s) (eRX(s)) from NON-SD Provider: VANITA WELCH Date eRX received: Dec [place] not eligible to receive non-VA prescription(s) at this time. Prescription(s) REDIRECTED via FAX to: [X][facility] (Dual) Care [ ]Other: [ ] [facility] ([facility]) [ ] [facility] eRx Reference #: [id number] eRx Prescription Information: eRx Drug: mometasone 200 mcg/actuation HFA aerosol inhaler eRx Qty: 3 eRx Refills: 3 eRx Days Supply: eRx Written Date: DEC 06, 2022 eRx Issue Date: Prohibit Renewals: No eRx Sig: Inhale 1 Puff by mouth two times daily. /naina/ NATHEN MCPHERSON Pharmacist Signed: 12/08/2022 11:12 NATHEN MCPHERSON [facility]
--- OUTSIDE RECORDS SUMMARY | 2023-08-25 09:31 | XMS_ITS | Encounter Summary ---
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 Organization Department of Vetera ns Affairs Address [address] [place] [address] Support Name Relationship Address Phone JAVIER DE PAZ Next of Kin [address] [place] [address] LC DE PAZLU Emergency Contact [address] [place] [phone] JAVIER DE PAZ Next of Kin [address] [address] [address] Insurance Providers: All historical [...] Relationship to Policy Kevin BC BS [place] [facility] ([facility]) [facility] ORGANIZ [id number] Jan 05, 2010 [id number] DEPENDS ON GROUP ANUSHA DE PAZ PATIENT MEDICARE ([facility]) MEDICARE () PART A Jan 05, 2010 PART A [id number] [phone] ANUSHA DE PAZ PATIENT MEDICARE ([facility]) MEDICARE () PART B Jan 05, 2010 PART B [id number] [phone] ANUSHA DE PAZ PATIENT MEDICARE (WN) MEDICARE () PART A Jan 05, 2010 PART A [id number] [facility] ANUSHA DE PAZ PATIENT MEDICARE (WN) MEDICARE () PART A Jan 05, 2010 PART A [id number] [phone] ANUSHA DE PAZ PATIENT MEDICARE ([facility]) MEDICARE (M) PART B Jan 05, 2010 PART B [id number] [facility] [phone] ANUSHA DE PAZ PATIENT Selected Encounter This section includes the information on record at [place] for the Encounter. Date/Time Encounter Type Encounter Description Reason Pro vider Source Feb 19, 2023 08:08 PM Outpatient Encounter COMMUNITY CARE CONSULT IHE Encounter Template Text not used by MA Plan of Treatment: Future Appointments (+ 6 months) and Future Tests (+/- 45 days) The Plan of Treatment section includes future care activities for the patient from all [place] treatmentfacilities. This section includes future appointments and future orders which are active, pending or scheduled. Future Appointments This section includes appointments that were scheduled to occur 6 months from the date of the Encounter, up to a maximum of 20 appointments. The data comes from all [place] treatment facilities. Appointment Date/Time Appointment Type Appointme nt Facility Name Apr 16, 2023 12:00 PM [facility] Jul 17, 2023 03:00 PM [facility] - [facility]ICINE [facility] Social History: Smoking Status (Most current) and Tobacco Use (All prior to encounter date) This section includes the most current, and the historical, smoking and tobacco- related health factors from the [place] facility where the Encounter took place. Current Smoking Status This section includes the most current smoking, or tobacco-related health factor, from the [place] facility where the Encounter took place. Date/Time Current Smoking Status Comment Liam itheather August 07, 2022 01:30 PM VA-TOBACCO FORMER USER [facility] Tobacco Use History This section includes a history of the smoking, or tobacco-related health factors, that were collected on or before the date of the Encounter. The data comes from the [place] facility where the Encounter took place. 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 [facility] Mar 29, 2019 10:59 AM VA-TOBACCO USE MED NO [facility] Mar 29, 2019 10:59 AM VA-TOBACCO USE WI 30 MIN OF WAKE UP [facility] Mar 29, 2019 10:59 AM VA-TOBACCO USER EVERY DAY [facility] Feb 17, 2018 03:39 PM VA-TOBACCO USE 30 YEARS OR MORE [facility] Feb 17, 2018 03:39 PM VA-TOBACCO USE ADVICE [facility] Feb 17, 2018 03:39 PM 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 [facility] Feb 17, 2018 03:39 PM VA-TOBACCO USE MED NO [facility] Feb 17, 2018 03:39 PM VA-TOBACCO USE WI 30 MIN OF WAKE UP [facility] Feb 17, 2018 03:39 PM VA-TOBACCO USER EVERY DAY [facility] Feb 12, 2017 12:38 PM CURRENT TOBACCO USER [facility] Apr 25, 2015 07:50 AM CURRENT TOBACCO USER [facility] Apr 21, 2014 08:25 AM CURRENT TOBACCO USER [facility] Apr 20, 2013 10:04 AM CURRENT TOBACCO USER [facility] Mar 20, 2012 09:53 AM CURRENT TOBACCO USER [facility] Feb 06, 2011 09:44 AM CURRENT TOBACCO USER [facility] Jan 02, 2010 09:22 AM CURRENT TOBACCO USER [facility] Encounter Notes: All associated encounter notes This section contains the clinical notes associated to the Encounter. Date/Time Encounter Note(s) Provider Source Feb 19, 2023 08:08 PM PHARMACY NOTE: LOCAL TITLE: PHARMACY NON [place] CARE MEDICATIONS STANDARD TITLE: PHARMACY NOTE DATE OF NOTE: FEB 19, 2023@20:08 ENTRY DATE: FEB 19, 2023@20:08:55 AUTHOR: ZULEYKA ESTRADA EXP COSIGNER: URGENCY: STATUS: COMPLETED [facility] RECEIVED electronic prescription(s) (eRX(s)) from NON-[place] Provider: VANITA WELCH Date eRX received: Feb Outside (NON-VA) provider not authorized to write for prescription(s) through [place] pharmacy. Prescription request REDIRECTED via FAX to [facility] for review: eRx Reference #: [id number] eRx Prescription Information: eRx Drug: furosemide 20 mg tablet (LASIX) eRx Qty: 45 eRx Refills: 3 eRx Days Supply: eRx Written Date: FEB 19, 2023 eRx Issue Date: Prohibit Renewals: No eRx Sig: Lasix to 20 mg on Friday, Friday and Friday. eRx Reference #: [id number] eRx Drug: potassium chloride ER 10 mEq tablet,extended release(part/cryst) (potassium chloride) eRx Qty: 45 eRx Refills: 3 eRx Days Supply: eRx Written Date: FEB 19, 2023 eRx Issue Date: Prohibit Renewals: No eRx Sig: Potassium 10 meq on Friday, Friday and Friday. /naina/ ZULEYKA ESTRADA pharmacist Signed: 02/19/2023 20:10 ZULEYKA ESTRADA [facility]
--- OUTSIDE RECORDS SUMMARY | 2023-08-25 09:31 | XMS_ITS | Continuity of Care Document ---
Author Name [facility] Organization [facility] Care Team Providers Care Jukebox Operator Name Role Phone [facility] Unavailable Unavailable Problems Combined list of problems from Department of Defense and Veterans Affairs facilities. It does not include entries that were removed or entered in error. Problem Status Onset Date Problem Type Date of Resolution Comments Source CVD - Cerebrovascular Disease ([facility] 77280406) Active 03/19/20 20 Condition May 01, 2020 Entered By: YOAV CHAUHAN Comment: 03/19/20: L MCA CVA, Admit ANW. Cardio-embol ic d/t Warfarin DC [facility] CAD - Coronary Artery Disease ([facility] 99698836) Active 01/27/20 20 Condition Mar 13, 2020 Entered By: YOAV CHAUHAN Comment: 01/27/20: LAD and Dx stented w/SATHYA at [facility]. Plavix +ASA thru 01/26/21 [facility] Peripheral arterial insufficiency Active 01/21/20 20 Condition Mar 13, 2020 Entered By: YOAV CHAUHAN Comment: 01/21/20: L femoral Art occlusion per [facility]-->Fem -Tibial bypass planned [facility] Allergic rhinitis (SNOMED CT 38417111) Active Condition [facility] Atrial fibrillation (SNOMED CT 57604722) Active Condition Apr 26, 2015 Entered By: YOAV CHAUHAN Comment: Warfarin through Miryam Rodriguez [facility] Co-Managed Care Active Condition Dec 25, 2017 Entered By: YOAV CHAUHAN Comment: Dr Garcia, Michael Red Bud, F: [phone] , [facility] COPD - Chronic Obstructive Pulmonary Disease ([facility] 28713155) Active Condition Dec 25, 2017 Entered By: YOAV CHAUHAN Comment: Mometasone & Albuterol MDI's [facility] [place] of toe Active Condition Sep 08, 2019 Entered By: YOAV CHAUHAN Comment: R middle toe [facility] Current smoker Active Condition Apr 082015 Entered By: YOAV CHAUHAN Comment: Cigars, not cigarettes [facility] Essential hypertension (SNOMED CT 92457613) Active Condition [facility] Glucose intolerance Active Condition [facility] Nocturia due to benign prostatic hypertrophy Active Condition [facility] Health Maintenance (ICD-9-CM V65.9) Inactive Condition 04/26/2015 BELGICA MANCILLA [facility] Diagnosis: ICD-10-CM Z00.01 Encounter for general adult medical exam w abnormal findings [facility] Diagnosis: 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 [facility] Diagnosis: ICD-10-CM Z76.0 Encounter for issue of repeat prescription Active Diagnosis [facility] Medications Combined list of outpatient medications from [...] S OF BREATH INHALA TION HOLD 07/17/2024 [id number] AFRICA CHAUHAN 2023 2 [facility] ALBUTEROL 90MCG/ACTUA T (CFC-F) INHL,ORAL,8 .5GM DOSE COUNTER INHALE 2 PUFFS BY INHALATI ON FOUR TIMES A DAY NEEDED FOR SHORTNES S OF BREATH INHALA TION DISCONT INUED 08/08/2023 [id number] 3 AFRICA CHAUHAN 2022 2 [facility] APIXABAN 5MG TAB TAKE ONE TABLET BY MOUTH EVERY 12 HOURS TO PREVENT BLOOD CLOTS AND STROKE (ELIQUIS ) ORALLY ACTIVE 05/29/2024 [id number] 4 MARIANO GARCIA 2023 180 [facility] APIXABAN 5MG TAB TAKE ONE TABLET BY MOUTH EVERY 12 HOURS TO PREVENT BLOOD CLOTS AND STROKE (ELIQUIS ) ORALLY DISCONT INUED 05/09/2023 [id number] 3 MARIANO GARCIA 2022 180 [facility] CHOLECALCIF JONNA 25MCG (1,000UNIT) TAB TAKE FIVE TABLETS BY MOUTH QOD ORALLY ACTIVE AFRICA CHAUHAN 2016 [facility] FLUOCINONID E 0.1% CREAM,TOP APPLY A THIN LAYER TOPICALL Y TWICE A DAY NEEDED FOR RASH TOPICA LLY ACTIVE 12/13/2023 [id number] 3 AFRICA CHAUHAN 2022 60 [facility] FLUTICASONE 250MCG/SALM ETEROL 50MCG INHL,ORAL,D ISKUS,60 INHALE 1 PUFF BY INHALATI ON TWICE A DAY FOR COPD INHALA TION ACTIVE 07/17/2024 [id number] 4 AFRICA CHAUHAN 2023 3 [facility] FLUTICASONE 250MCG/SALM ETEROL 50MCG INHL,ORAL,D ISKUS,60 INHALE 1 PUFF BY INHALATI ON TWICE A DAY FOR COPD THIS REPLACES YOUR MOMETASO NE INHALA TION DISCONT INUED 08/08/2023 [id number] 4 AFRICA CHAUHAN 2022 3 [facility] FUROSEMIDE 20MG TAB TAKE ONE TABLET BY MOUTH THREE TIMES A WEEK FOR HEART FAILURE ORALLY ACTIVE 02/25/2024 [id number] 3 Hong DONAHUE 2022 39 [facility] FUROSEMIDE 20MG TAB TAKE ONE TABLET BY MOUTH EVERY OTHER DAY FOR HEART FAILURE ORALLY DISCONT INUED (EDIT) 08/13/2023 [id number] 3 AFRICA CHAUHAN 2022 45 [facility] FUROSEMIDE 20MG TAB TAKE ONE TABLET BY MOUTH EVERY MORNING FOR HEART FAILURE ORALLY DISCONT INUED 08/08/2023 [id number] 3 AFRICA CHAUHAN 2022 90 [facility] FUROSEMIDE 20MG TAB TAKE ONE TABLET BY MOUTH EVERY MORNING FOR HEART FAILURE ORALLY DISCONT INUED 11/16/2022 [id number] 3 AFRICA CHAUHAN 2021 90 [facility] HYDROCHLORO THIAZIDE 12.5MG TAB TAKE ONE TABLET BY MOUTH EVERY DAY FOR BLOOD PRESSURE ORALLY DISCONT INUED 08/08/2023 [id number] 3 AFRICA CHAUHAN 2022 90 [facility] METOPROLOL SUCCINATE 100MG TAB,SA TAKE ONE AND ONE-HALF TABLETS BY MOUTH EVERY DAY ORALLY DISCONT INUED 11/16/2022 [id number] 3 AFRICA CHAUHAN 2021 135 [facility] METOPROLOL SUCCINATE 50MG TAB,SA TAKE THREE TABLETS BY MOUTH EVERY DAY FOR BLOOD PRESSURE ORALLY DISCONT INUED 08/08/2023 [id number] 3 AFRICA CHAUHAN 2022 270 [facility] METOPROLOL TARTRATE 100MG TAB TAKE ONE TABLET BY MOUTH TWICE A DAY FOR BLOOD PRESSURE ORALLY ACTIVE 12/13/2023 [id number] 4 AFRICA CHAUHAN 2022 180 [facility] MOMETASONE FUROATE 220MCG/INHL INHL,ORAL,6 0 INHALE 1 PUFF BY MOUTH TWICE A DAY TO PREVENT TROUBLE BREATHIN G TWIST COVER ON AND OFF TO LOAD NEXT DOSERI NSE MOUTH AFTER USING * DO NOT WASH INHALER ORALLY DISCONT INUED 11/16/2022 [id number] 3 AFRICA CHAUHAN 2021 3 [facility] NIFEDIPINE (EQV-CC) 60MG TAB,SA TAKE ONE TABLET BY MOUTH EVERY DAY FOR BLOOD PRESSURE ORALLY DISCONT INUED BY PROVIDE R 08/08/2023 [id number] 3 AFRICA CHAUHAN 2022 90 [facility] NIFEDIPINE (EQV-CC) 60MG TAB,SA TAKE ONE TABLET BY MOUTH EVERY DAY FOR BLOOD PRESSURE ORALLY DISCONT INUED 09/11/2022 [id number] 3 AFRICA CHAUHAN 2022 90 [facility] NIFEDIPINE (EQV-CC) 60MG TAB,SA TAKE ONE TABLET BY MOUTH EVERY DAY FOR BLOOD PRESSURE ORALLY DISCONT INUED 08/28/2022 [id number] 3 AFRICA CHAUHAN 2022 90 [facility] NIFEDIPINE (EQV-CC) 90MG TAB,SA TAKE ONE TABLET BY MOUTH EVERY DAY FOR BLOOD PRESSURE ORALLY SUSPEND ED 07/17/2024 [id number] 4 AFRICA CHAUHAN 2023 90 [facility] NIFEDIPINE (EQV-CC) 90MG TAB,SA TAKE ONE TABLET BY MOUTH EVERY DAY FOR BLOOD PRESSURE INCREASE D DOSE PER CO-MANAG ED CARE INCREASE D DOSE PER CO-MANAG ED CARE ORALLY DISCONT INUED 12/13/2023 [id number] 4 AFRICA CHAUHAN 2022 90 [facility] POTASSIUM CHLORIDE 10MEQ TAB,SA TAKE ONE TABLET BY MOUTH THREE TIMES A WEEK FOR POTASSIU M SUPPLEME NT TAKE WITH FUROSEMI DE ORALLY ACTIVE 02/25/2024 [id number] 3 Hong DONAHUE A 2022 39 [facility] POTASSIUM CHLORIDE 10MEQ TAB,SA TAKE ONE TABLET BY MOUTH EVERY OTHER DAY FOR POTASSIU M SUPPLEME NT ORALLY DISCONT INUED (EDIT) 08/13/2023 [id number] 3 AFRICA CHAUHAN 2022 45 [facility] POTASSIUM CHLORIDE 10MEQ TAB,SA TAKE ONE TABLET BY MOUTH EVERY DAY FOR CONGESTI VE HEART FAILURE ORALLY DISCONT INUED 08/08/2023 [id number] 3 AFRICA CHAUHAN 2022 90 [facility] POTASSIUM CHLORIDE 10MEQ TAB,SA TAKE ONE TABLET BY MOUTH EVERY DAY FOR CONGESTI VE HEART FAILURE ORALLY DISCONT INUED 11/16/2022 [id number] 3 AFRICA CHAUHAN 2021 90 [facility] ROSUVASTATI N CA 20MG TAB TAKE ONE TABLET BY MOUTH AT BEDTIME FOR CORONARY ARTERY DISEASE ORALLY HOLD 07/17/2024 [id number] AFRICA CHAUHAN 2023 90 [facility] ROSUVASTATI N CA 20MG TAB TAKE ONE TABLET BY MOUTH AT BEDTIME FOR CORONARY ARTERY DISEASE ORALLY DISCONT INUED 08/08/2023 [id number] 4 AFRICA CHAUHAN 2022 90 [facility] TAMSULOSIN HCL 0.4MG CAP TAKE ONE CAPSULE BY MOUTH EVERY EVENING FOR PROSTATE ORALLY ACTIVE 07/17/2024 [id number] 4 AFRICA CHAUHAN 2023 30 [facility] Allergies, Adverse Reactions, Alerts Combined list of allergies from Department of Defense and Veterans Affairs facilities. It does not include entries that were removed or entered in error. Substance Category Reaction Severity Reaction type Status Date Reported Comments Source LISINOPRIL Propensity to adverse reactions to drug (finding) Cough active 0 [facility] Immunizations Combined list of available immunizations from the Department of Defense and Veterans Affairs facilities. Immunization Series Date Given Administered By Site Reaction Lot Number CVX Code Drug Testboard Operator Status Comments Source COVID-19 (Beatpacking), MRNA, LNP-S, BIVALENT, PF, 30 MCG/0.3 ML DOSE 2022 300 complet ed [facility] COVID-19 (PFIZER), MRNA, LNP-S, PF, 30 MCG/0.3 ML DOSE, JAMES-SUCROSE (AGES 12+ YEARS) 2021 217 complet ed [facility] COVID-19 (PFIZER), MRNA, LNP-S, PF, 30 MCG/0.3 ML DOSE 2020 208 complet ed [facility] ZOSTER RECOMBINANT 2 2020 187 complet ed [facility] INFLUENZA VACCINE, QUADRIVALENT, ADJUVANTED 2020 205 complet ed [facility] INFLUENZA, UNSPECIFIED FORMULATION 2020 88 complet ed [facility] ZOSTER RECOMBINANT 1 2020 187 complet ed [facility] COVID-19 (Beatpacking), MRNA, LNP-S, PF, 30 MCG/0.3 ML DOSE 2 2020 208 complet ed [facility] COVID-19 (PFIZER), MRNA, LNP-S, PF, 30 MCG/0.3 ML DOSE 1 2020 208 complet ed [facility] INFLUENZA VACCINE, QUADRIVALENT, ADJUVANTED 2019 205 complet ed [facility] INFLUENZA, TRIVALENT, ADJUVANTED 2018 168 complet ed [facility] INFLUENZA, SEASONAL, INJECTABLE 2018 141 complet ed [facility] INFLUENZA, SEASONAL, INJECTABLE 2017 141 complet ed [facility] INFLUENZA, TRIVALENT, ADJUVANTED 2017 168 complet ed [facility] INFLUENZA, HIGH DOSE SEASONAL 2016 135 complet ed [facility] PNEUMOCOCCAL POLYSACCHARID E PPV23 2016 33 complet ed [employer] , [id number], 06/03/18 [facility] TD (ADULT), 2 LF TETANUS TOXOID, PRESERVATIVE FREE, ADSORBED 2016 09 complet ed [employer] [id number], 12/19/18 [facility] INFLUENZA, HIGH DOSE SEASONAL 2016 135 complet ed [facility] PNEUMOCOCCAL POLYSACCHARID E PPV23 2016 33 complet ed [facility] INFLUENZA, HIGH DOSE SEASONAL 2015 135 complet ed [facility] PNEUMOCOCCAL CONJUGATE PCV 13 2015 133 complet ed [employer] [facility] PNEUMOCOCCAL CONJUGATE PCV 13 2014 133 complet ed [facility] INFLUENZA, UNSPECIFIED FORMULATION 2013 88 complet ed [facility] INFLUENZA, UNSPECIFIED FORMULATION 2013 88 complet ed [facility] INFLUENZA, UNSPECIFIED FORMULATION 2011 88 complet ed [facility] INFLUENZA, UNSPECIFIED FORMULATION 2010 88 complet ed [facility] PNEUMOCOCCAL, UNSPECIFIED FORMULATION 2009 109 complet ed [employer],093 02,10/21/ 011 [facility] TDAP 2009 115 complet ed [facility] ZOSTER LIVE 2008 121 complet ed [facility] TDAP 2007 115 complet ed private [facility] ZOSTER LIVE 2006 121 complet ed [facility] Results Combined list of recent [...] Jul 17, 2023 04:23 PM Reporting Lab: [facility] [address] Performing Lab: [facility] [address] [facility] URINALYS IS SPECIFIC GRAVITY OF URINE 1.006 1.003 - 1.035 07/16 Specimen Type: URINE No comment entered. Ordering Provider: TERRENCE CHAUHAN Report Released Date/Time: Jul 17, 2023 04:23 PM Reporting Lab: [facility] [address] Performing Lab: [facility] [address] [facility] URINALYS IS BILIRUBIN. TOTAL [PRESENCE] IN URINE BY TEST STRIP NEGATIVE 07/16 Specimen Type: URINE No comment entered. Ordering Provider: TERRENCE CHAUHAN Report Released Date/Time: Jul 17, 2023 04:23 PM Reporting Lab: [facility] [address] Performing Lab: [facility] [address] [facility] URINALYS IS KETONES [MASS/VOLU ME] IN URINE BY TEST STRIP NEGATIVE 07/16 Specimen Type: URINE No comment entered. Ordering Provider: TERRENCE CHAUHAN Report Released Date/Time: Jul 17, 2023 04:23 PM Reporting Lab: [facility] [address] Performing Lab: [facility] [address] [facility] URINALYS IS GLUCOSE [MASS/VOLU ME] IN URINE BY TEST STRIP NEGATIVE 07/16 Specimen Type: URINE No comment entered. Ordering Provider: TERRENCE CHAUHAN Report Released Date/Time: Jul 17, 2023 04:23 PM Reporting Lab: [facility] [address] Performing Lab: [id number] [place] [facility] URINALYS IS PROTEIN [MASS/VOLU ME] IN URINE BY TEST STRIP NEGATIVE 07/16 Specimen Type: URINE No comment entered. Ordering Provider: TERRENCE CHAUHAN Report Released Date/Time: Jul 17, 2023 04:23 PM Reporting Lab: [facility] [address] Performing Lab: [facility] [address] [place] [facility] URINALYS IS PH OF URINE BY TEST STRIP 7.0 5.0 - 8.0 07/16 Specimen Type: URINE No comment entered. Ordering Provider: TERRENCE CHAUHAN Report Released Date/Time: Jul 17, 2023 04:23 PM Reporting Lab: [facility] [address] Performing Lab: [facility] [address] [place] [facility] URINALYS IS LEUKOCYTES [#/AREA] IN URINE SEDIMENT BY MICROSCOPY HIGH POWER FIELD <1 0 - 7 07/16 Specimen Type: URINE No comment entered. Ordering Provider: TERRENCE CHAUHAN Report Released Date/Time: Jul 17, 2023 04:23 PM Reporting Lab: [facility] [address] Performing Lab: [facility] [address] [place] [facility] URINALYS IS BACTERIA [PRESENCE] IN URINE SEDIMENT BY LIGHT MICROSCOPY NONE SEEN 07/16 Specimen Type: URINE No comment entered. Ordering Provider: TERRENCE CHAUHAN Report Released Date/Time: Jul 17, 2023 04:23 PM Reporting Lab: [facility] [address] Performing Lab: [facility] [address] [place] [facility] URINALYS IS ERYTHROCYT ES [#/AREA] IN URINE SEDIMENT BY MICROSCOPY HIGH POWER FIELD <1 0 - 3 07/16 Specimen Type: URINE No comment entered. Ordering Provider: TERRENCE CHAUHAN Report Released Date/Time: Jul 17, 2023 04:23 PM Reporting Lab: [facility] [address] Performing Lab: [facility] [address] [place] [facility] URINALYS IS APPEARANCE OF URINE CLEAR 07/16 Specimen Type: URINE No comment entered. Ordering Provider: TERRENCE CHAUHAN Report Released Date/Time: Jul 17, 2023 04:23 PM Reporting Lab: [facility] [address] Performing Lab: [facility] [address] [place] [facility] URINALYS IS EPITHELIAL CELLS.SQUA MOUS [#/AREA] IN URINE SEDIMENT BY MICROSCOPY HIGH POWER FIELD NONE SEEN 07/16 Specimen Type: URINE No comment entered. Ordering Provider: TERRENCE CHAUHAN Report Released Date/Time: Jul 17, 2023 04:23 PM Reporting Lab: [facility] [address] Performing Lab: [facility] [address] [place] [facility] URINALYS IS HEMOGLOBIN [PRESENCE] IN URINE BY TEST STRIP NEGATIVE 07/16 Specimen Type: URINE No comment entered. Ordering Provider: TERRENCE CHAUHAN Report Released Date/Time: Jul 17, 2023 04:23 PM Reporting Lab: [facility] [address] Performing Lab: [facility] [address] [place] [facility] URINALYS IS NITRITE [PRESENCE] IN URINE BY TEST STRIP NEGATIVE 07/16 Specimen Type: URINE No comment entered. Ordering Provider: TERRENCE CHAUHAN Report Released Date/Time: Jul 17, 2023 04:23 PM Reporting Lab: [facility] [address] Performing Lab: [facility] [address] [place] [facility] URINALYS IS LEUKOCYTE ESTERASE [PRESENCE] IN URINE BY TEST STRIP NEGATIVE 07/16 Specimen Type: URINE No comment entered. Ordering Provider: TERRENCE CHAUHAN Report Released Date/Time: Jul 17, 2023 04:23 PM Reporting Lab: [facility] [address] Performing Lab: [facility] [address] [place] [facility] HEMOGLOB IN A1C HEMOGLOBIN A1C/HEMOGL OBIN.TOTAL IN [...] August 07, 2022 02:21 PM Reporting Lab: [facility] [address] Performing Lab: [facility] [address] [place] [facility] BASIC METABOLI C PANEL+MG CREATININE [MASS/VOLU ME] IN SERUM OR PLASMA 1.3 0.7 - 1.2 07/16 H Specimen Type: PLASMA No comment entered. Ordering Provider: TERRENCE CHAUHAN Report Released Date/Time: August 07, 2022 02:21 PM Reporting Lab: [facility] [address] Performing Lab: [facility] [address] [place] [facility] BASIC METABOLI C PANEL+MG UREA NITROGEN [MASS/VOLU ME] IN SERUM OR PLASMA 15 8 - 26 07/16 Specimen Type: PLASMA No comment entered. Ordering Provider: TERRENCE CHAUHAN Report Released Date/Time: August 07, 2022 02:21 PM Reporting Lab: [facility] [address] Performing Lab: [facility] [address] [place] [facility] BASIC METABOLI C PANEL+MG GLUCOSE [MASS/VOLU ME] IN SERUM OR PLASMA 84 70 - 100 07/16 Specimen Type: PLASMA No comment entered. Ordering Provider: TERRENCE CHAUHAN Report Released Date/Time: August 07, 2022 02:21 PM Reporting Lab: [facility] [address] Performing Lab: [facility] [address] [place] [facility] BASIC METABOLI C PANEL+MG SODIUM [MOLES/VOL UME] IN SERUM OR PLASMA 137 136 - 145 07/16 Specimen Type: PLASMA No comment entered. Ordering Provider: TERRENCE CHAUHAN Report Released Date/Time: August 07, 2022 02:21 PM Reporting Lab: [facility] [address] Performing Lab: [facility] [address] [place] [facility] METABOLI C PANEL+MG POTASSIUM [MOLES/VOL UME] IN SERUM OR PLASMA 4.6 3.5 - 5.1 07/16 Specimen Type: PLASMA No comment entered. Ordering Provider: TERRENCE CHAUHAN Report Released Date/Time: August 07, 2022 02:21 PM Reporting Lab: [facility] [address] Performing Lab: [facility] [address] [place] [facility] BASIC METABOLI C PANEL+MG CHLORIDE [MOLES/VOL UME] IN SERUM OR PLASMA 105 98 - 107 07/16 Specimen Type: PLASMA No comment entered. Ordering Provider: TERRENCE CHAUHAN Report Released Date/Time: August 07, 2022 02:21 PM Reporting Lab: [facility] [address] Performing Lab: [facility] [address] [place] [facility] METABOLI C PANEL+MG CARBON DIOXIDE, TOTAL [MOLES/VOL UME] IN SERUM OR PLASMA 24 22 - 29 07/16 Specimen Type: PLASMA No comment entered. Ordering Provider: TERRENCE CHAUHAN Report Released Date/Time: August 07, 2022 02:21 PM Reporting Lab: [facility] [address] Performing Lab: [facility] [address] [place] [facility] METABOLI C PANEL+MG CALCIUM [MASS/VOLU ME] IN SERUM OR PLASMA 8.9 8.4 - 10.2 07/16 Specimen Type: PLASMA No comment entered. Ordering Provider: TERRENCE CHAUHAN Report Released Date/Time: August 07, 2022 02:21 PM Reporting Lab: [facility] [address] Performing Lab: [facility] [address] [place] [facility] METABOLI C PANEL+MG MAGNESIUM [MASS/VOLU ME] IN SERUM OR PLASMA 2.1 1.6 - 2.6 07/16 Specimen Type: PLASMA No comment entered. Ordering Provider: TERRENCE CHAUHAN Report Released Date/Time: August 07, 2022 02:21 PM Reporting Lab: [facility] [address] Performing Lab: [facility] [address] [place] [facility] METABOLI C PANEL+MG ANION GAP IN SERUM OR PLASMA 8 5 - 15 07/16 Specimen Type: PLASMA No comment entered. Ordering Provider: TERRENCE CHAUHAN Report Released Date/Time: August 07, 2022 02:21 PM Reporting Lab: [facility] [address] Performing Lab: [facility] [address] [place] [facility]OLI C PANEL+MG GLOMERULAR FILTRATION RATE/1.73 SQ M.PREDICTE D [VOLUME RATE/AREA] IN SERUM, PLASMA OR BLOOD BY CREATININE -BASED FORMULA (CKD-EPI 2020) 56 60 07/16 L Specimen Type: PLASMA No comment entered. Ordering Provider: TERRENCE CHAUHAN Report Released Date/Time: August 07, 2022 02:21 PM Reporting Lab: [facility] [address] Performing Lab: [facility] [address] [place] [facility] LIVER FUNCTION TESTS BILIRUBIN. TOTAL [MASS/VOLU ME] IN SERUM OR PLASMA 0.8 0.2 - 1.2 07/16 Specimen Type: PLASMA No comment entered. Ordering Provider: TERRENCE CHAUHAN Report Released Date/Time: August 07, 2022 02:21 PM Reporting Lab: [facility] [address] Performing Lab: [facility] [address] [place] [facility] LIVER FUNCTION TESTS ALKALINE PHOSPHATAS E [ENZYMATIC ACTIVITY/V OLUME] IN SERUM OR PLASMA 52 40 - 150 07/16 Specimen Type: PLASMA No comment entered. Ordering Provider: TERRENCE CHAUHAN Report Released Date/Time: August 07, 2022 02:21 PM Reporting Lab: [facility] [address] Performing Lab: [facility] [address] [place] [facility] LIVER FUNCTION TESTS ALANINE AMINOTRANS FERASE [ENZYMATIC ACTIVITY/V OLUME] IN SERUM OR PLASMA 20 <55 - 55 07/16 Specimen Type: PLASMA No comment entered. Ordering Provider: TERRENCE CHAUHAN Report Released Date/Time: August 07, 2022 02:21 PM Reporting Lab: [facility] [address] Performing Lab: [facility] [address] [place] [facility] LIVER FUNCTION TESTS ASPARTATE AMINOTRANS FERASE [ENZYMATIC ACTIVITY/V OLUME] IN SERUM OR PLASMA 19 <34 - 34 07/16 Specimen Type: PLASMA No comment entered. Ordering Provider: TERRENCE CHAUHAN Report Released Date/Time: August 07, 2022 02:21 PM Reporting Lab: [facility] [address] Performing Lab: [facility] [address] [place] [facility] LIVER FUNCTION TESTS GAMMA GLUTAMYL TRANSFERAS E [ENZYMATIC ACTIVITY/V OLUME] IN SERUM OR PLASMA 38 <64 - 64 07/16 Specimen Type: PLASMA No comment entered. Ordering Provider: TERRENCE CHAUHAN Report Released Date/Time: August 07, 2022 02:21 PM Reporting Lab: [facility] [address] Performing Lab: [facility] [address] [place] [facility] CBC LEUKOCYTES [#/VOLUME] IN BLOOD BY AUTOMATED COUNT 8.72 4.0 - 11.0 07/16 Specimen Type: BLOOD No comment entered. Ordering Provider: TERRENCE CHAUHAN Report Released Date/Time: August 07, 2022 02:21 PM Reporting Lab: [facility] [address] Performing Lab: [facility] [address] [place] [facility] CBC ERYTHROCYT ES [#/VOLUME] IN BLOOD BY AUTOMATED COUNT 4.11 4.6 - 6.2 07/16 L Specimen Type: BLOOD No comment entered. Ordering Provider: TERRENCE CHAUHAN Report Released Date/Time: August 07, 2022 02:21 PM Reporting Lab: [facility] [address] Performing Lab: [facility] [address] [place] [facility] CBC HEMOGLOBIN [MASS/VOLU ME] IN BLOOD 13.4 13.5 - 17.9 07/16 L Specimen Type: BLOOD No comment entered. Ordering Provider: TERRENCE CHAUHAN Report Released Date/Time: August 07, 2022 02:21 PM Reporting Lab: [facility] [id number] Performing Lab: [facility] [address] [place] [facility] HEMATOCRIT [VOLUME FRACTION] OF BLOOD BY AUTOMATED COUNT 39.7 41 - 54 07/16 L Specimen Type: BLOOD No comment entered. Ordering Provider: TERRENCE CHAUHAN Report Released Date/Time: August 07, 2022 02:21 PM Reporting Lab: [facility] [id number] Performing Lab: [facility] [id number] [place] [facility] CBC MCV [ENTITIC VOLUME] BY AUTOMATED COUNT 96.6 80 - 100 07/16 Specimen Type: BLOOD No comment entered. Ordering Provider: TERRENCE CHAUHAN Report Released Date/Time: August 07, 2022 02:21 PM Reporting Lab: [facility] [address] Performing Lab: [facility] [address] [place] [facility] CBC MCH [ENTITIC MASS] BY AUTOMATED COUNT 32.6 27 - 33 07/16 Specimen Type: BLOOD No comment entered. Ordering Provider: TERRENCE CHAUHAN Report Released Date/Time: August 07, 2022 02:21 PM Reporting Lab: [facility] [address] Performing Lab: [facility] [address] [place] [facility] CBC MCHC [MASS/VOLU ME] BY AUTOMATED COUNT 33.8 32.0 - 37.5 07/16 Specimen Type: BLOOD No comment entered. Ordering Provider: TERRENCE CHAUHAN Report Released Date/Time: August 07, 2022 02:21 PM Reporting Lab: [facility] [address] Performing Lab: [facility] [address] [place] [facility] CBC PLATELETS [#/VOLUME] IN BLOOD BY AUTOMATED COUNT 159 150 - 400 07/16 Specimen Type: BLOOD No comment entered. Ordering Provider: TERRENCE CHAUHAN Report Released Date/Time: August 07, 2022 02:21 PM Reporting Lab: [facility] [address] Performing Lab: [facility] [address] [place] [facility] CBC PLATELET MEAN VOLUME [ENTITIC VOLUME] IN BLOOD BY AUTOMATED COUNT 9.6 7.4 - 10.4 07/16 Specimen Type: BLOOD No comment entered. Ordering Provider: TERRENCE CHAUHAN Report Released Date/Time: August 07, 2022 02:21 PM Reporting Lab: [facility] [address] Performing Lab: [facility] [address] [place] [facility] CBC ERYTHROCYT E DISTRIBUTI ON WIDTH [RATIO] BY AUTOMATED COUNT 14.1 11.5 - 14.5 07/16 Specimen Type: BLOOD No comment entered. Ordering Provider: TERRENCE CHAUHAN Report Released Date/Time: August 07, 2022 02:21 PM Reporting Lab: [facility] [address] Performing Lab: [facility] [address] [place] [facility] PSA PROSTATE SPECIFIC AG [MASS/VOLU ME] IN SERUM OR PLASMA 3.84 <4.00 - 4.00 07/16 Specimen Type: SERUM No comment entered. Ordering Provider: TERRENCE CHAUHAN Report Released Date/Time: August 07, 2022 02:21 PM Reporting Lab: [facility] [address] Performing Lab: [facility] [address] [place] [facility] CREATINI NE(INCLU SATHYA EGFR) CREATININE [MASS/VOLU ME] IN SERUM OR PLASMA 1.2 0.7 - 1.2 04/16 Specimen Type: PLASMA No comment entered. Ordering Provider: HUYEN HYLTON Report Released Date/Time: Mar 07, 2023 02:00 PM Reporting Lab: [facility] [address] Performing Lab: [facility] [address] [place] [facility] CREATINI NE(INCLU SATHYA EGFR) GLOMERULAR FILTRATION RATE/1.73 SQ M.PREDICTE D [VOLUME RATE/AREA] IN SERUM, PLASMA OR BLOOD BY CREATININE -BASED FORMULA (CKD-EPI 2020) 62 60 04/16 Specimen Type: PLASMA No comment entered. Ordering Provider: HUYEN HYLTON Report Released Date/Time: Mar 07, 2023 02:00 PM Reporting Lab: [facility] [address] Performing Lab: [facility] [address] [place] [facility] AST/SGOT ASPARTATE AMINOTRANS FERASE [ENZYMATIC ACTIVITY/V OLUME] IN SERUM OR PLASMA 22 <34 - 34 04/16 Specimen Type: PLASMA No comment entered. Ordering Provider: HUYEN HYLTON Report Released Date/Time: Mar 07, 2023 02:00 PM Reporting Lab: [facility] [address] Performing Lab: [facility] [address] [place] [facility] CBC LEUKOCYTES [#/VOLUME] IN BLOOD BY AUTOMATED COUNT 8.06 4.0 - 11.0 04/16 Specimen Type: BLOOD No comment entered. Ordering Provider: HUYEN HYLTON S Report Released Date/Time: Mar 07, 2023 02:00 PM Reporting Lab: [facility] [address] Performing Lab: [facility] [address] [place] [facility] CBC ERYTHROCYT ES [#/VOLUME] IN BLOOD BY AUTOMATED COUNT 4.03 4.6 - 6.2 04/16 L Specimen Type: BLOOD No comment entered. Ordering Provider: HUYEN HYLTON S Report Released Date/Time: Mar 07, 2023 02:00 PM Reporting Lab: [facility] [address] Performing Lab: [place] [address] [place] [facility] CBC HEMOGLOBIN [MASS/VOLU ME] IN BLOOD 13.1 13.5 - 17.9 04/16 L Specimen Type: BLOOD No comment entered. Ordering Provider: HUYEN HYLTON S Report Released Date/Time: Mar 07, 2023 02:00 PM Reporting Lab: [facility] [address] Performing Lab: [address] [place] [facility] CBC HEMATOCRIT [VOLUME FRACTION] OF BLOOD BY AUTOMATED COUNT 38.9 41 - 54 04/16 L Specimen Type: BLOOD No comment entered. Ordering Provider: HUYEN HYLTON S Report Released Date/Time: Mar 07, 2023 02:00 PM Reporting Lab: [facility] [address] Performing Lab: [facility] [address] [place] [facility] CBC MCV [ENTITIC VOLUME] BY AUTOMATED COUNT 96.5 80 - 100 04/16 Specimen Type: BLOOD No comment entered. Ordering Provider: HUYEN HYLTON S Report Released Date/Time: Mar 07, 2023 02:00 PM Reporting Lab: [facility] [address] Performing Lab: [facility] [address] [place] [facility] CBC MCH [ENTITIC MASS] BY AUTOMATED COUNT 32.5 27 - 33 04/16 Specimen Type: BLOOD No comment entered. Ordering Provider: HUYEN HYLTON S Report Released Date/Time: Mar 07, 2023 02:00 PM Reporting Lab: [facility] [address] Performing Lab: [facility] [address] [place] [facility] CBC MCHC [MASS/VOLU ME] BY AUTOMATED COUNT 33.7 32.0 - 37.5 04/16 Specimen Type: BLOOD No comment entered. Ordering Provider: HUYEN HYLTON Report Released Date/Time: Mar 07, 2023 02:00 PM Reporting Lab: [facility] [address] Performing Lab: [facility] [address] [place] [facility] CBC PLATELETS [#/VOLUME] IN BLOOD BY AUTOMATED COUNT 157 150 - 400 04/16 Specimen Type: BLOOD No comment entered. Ordering Provider: HUYEN HYLTON S Report Released Date/Time: Mar 07, 2023 02:00 PM Reporting Lab: [facility] [address] Performing Lab: [facility] [address] [place] [facility] CBC PLATELET MEAN VOLUME [ENTITIC VOLUME] IN BLOOD BY AUTOMATED COUNT 9.7 7.4 - 10.4 04/16 Specimen Type: BLOOD No comment entered. Ordering Provider: HUYEN HYLTON Report Released Date/Time: Mar 07, 2023 02:00 PM Reporting Lab: [facility] [address] Performing Lab: [facility] [address] [facility] CBC ERYTHROCYT E DISTRIBUTI ON WIDTH [RATIO] BY AUTOMATED COUNT 14.5 11.5 - 14.5 04/16 Specimen Type: BLOOD No comment entered. Ordering Provider: HUYEN HYLTON Report Released Date/Time: Mar 07, 2023 02:00 PM Reporting Lab: [facility] [address] Performing Lab: [facility] [address] [place] [facility] ALT/SGPT ALANINE AMINOTRANS FERASE [ENZYMATIC ACTIVITY/V OLUME] IN SERUM OR PLASMA 19 <55 - 55 04/16 Specimen Type: PLASMA No comment entered. Ordering Provider: HUYEN HYLTON Report Released Date/Time: Mar 07, 2023 02:00 PM Reporting Lab: [facility] [address] Performing Lab: [facility] [address] [facility] Vital Signs Combined list of inpatient and outpatient Vital Signs from Department of Defense and Veterans Affairs, ranging from 12 months to all on record, depending upon the facility. Vital Sign Value Date Comments Source Encounters Combined list of: 1) Encounters from Department of [facility] facilities going back up to thelast 18 months. 2) Encounters from the Department of Defense facilities going back up to 280 months. Location Location Details Encounter Type Encounter Number Reason For Visit Attending Provider ADM Date DC Date Status Disposition Source [place] [facility] Outpatient Encounter [id number] 04/24 [facility] VISIT SF MDM [id number] Diagnos is: ICD-10- CM Z76.0 Encount er for issue of repeat prescri ption<b r/> AICHA GALLEGOS 05/09 [facility] Outpatient Encounter [id number] 05/09 [facility] Out[facility] Encounter [id number] 06/12 [facility] [place] [facility] Outpatient Encounter [id number] 07/15 [facility] [place] [facility] OFFICE O/P EST MOD 30-39 MIN [id number] Diagnos is: ICD-10- CM Z00.01 Encount er for general adult medical exam w abnorma l finding s
DANETTE LIN LY E 08/07 [facility] [place] [facility] Outpatient Encounter [id number] 08/07 [facility] [place] [facility] Outpatient Encounter [id number] OLESYA ROGERS 08/12 [facility] [place] [facility] Outpatient Encounter [id number] OLESYA ROGERS 08/12 [facility] [place] [facility] Outpatient Encounter [id number] Ana CHAUHAN 09/12 [place] [facility] [place] [facility] Outpatient Encounter [id number] 11/06 [place] [facility] [place] [facility] Outpatient Encounter [id number] 12/08 [place] [facility] [place] [facility] Outpatient Encounter [id number] 12/12 [place] [facility] [place] [facility] Outpatient Encounter [id number] 01/17 [place] [facility] [place] [facility] Outpatient Encounter [id number] 02/19 [place] [facility] [place] [facility] Outpatient Encounter [id number] 02/24 [place] [facility] [place] [facility] Outpatient Encounter [id number] 03/07 [place] [facility] [place] [facility] QNHP OL DIG ASSMT&MGMT 5-10 [id number] Diagnos is: ICD-10- CM 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
ELL[facility] GARCIA 05/29 [facility] [place] [facility] OFF[facility] O/P EST MOD 30 MIN [id number] Diagnos is: ICD-10- CM Z00.01 Encount er for general adult medical exam w abnorma l finding s
Ana CHAUHAN 07/16 [facility] [place] [facility] Outpatient Encounter [id number] 07/17 [facility] Social History Combined list of available smoking, tobacco, and other social history from Department of Defense and Veterans Affairs facilities. Social History Type Response Date Comment Sour e Tobacco smoking status [place] PR-TOBACCO FORMER USER 07/17/2023 [facility] History of tobacco use PR-TOBACCO QUIT 1 TO < 5 YRS 07/17/2023 [facility] History of tobacco use VA-TOBACCO FORMER USER 08/07/2022 [facility] History of tobacco use VA-TOBACCO FORMER USER 10/16/2020 [facility] History of tobacco use VA-TOBACCO USE CO UNSEL NO 03/29/2019 [facility] History of tobacco use VA-TOBACCO USE WI 30 MIN OF WAKEUP 02/17/2018 [facility] History of tobacco use CURRENT TOBACCO USER 02/12/2017 [facility] History of tobacco use CURRENT TOBACCO USER 04/25/2015 [facility] History of tobacco use CURRENT TOBACCO USER 04/21/2014 [facility] History of tobacco use CURRENT TOBACCO USER 04/20/2013 [facility] History of tobacco use CURRENT TOBACCO USER 03/20/2012 [facility] History of tobacco use CURRENT TOBACCO USER 02/06/2011 [facility] History of tobacco use CURRENT TOBACCO USER 01/02/2010 [facility]
--- OUTSIDE RECORDS SUMMARY | 2023-08-25 09:31 | XMS_ITS | Clinical Summary ---
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 LLE angiogram 2. WORK[employer] COMPENSATION [place] of [facility] cross peroneal Panlobular emphysema 10/21/2018 COPD exacerbation 09/09/2018 [...] Department Care Team Description 08/05/2023 Lab Requisition [facility] [phone] Unknown, Doctor 08/04/2023 8:35 AM CDT Office Visit [facility] [address] [place] [address] Jena Pascual PA Follow Up (Boil) 08/04/2023 Travel 08/01/2023 8:35 AM CDT Office Visit [facility] [address] [place] [address] Jena Pascual PA Derm Problem 08/01/2023 Travel [...] T Respiratory Rate 18 03/17/2023 3:35 PM MARKET RESEARCH SPECIALIST Oxygen Saturation 96% 08/04/2023 8:35 AM CDT Inhaled Oxygen Concentration - - Weight 90.7 kg (200 lb) 08/04/2023 8:35 AM CDT Height 190.5 cm (6' 3) 03/17/2023 2:07 PM MARKET RESEARCH SPECIALIST Body Mass Index 25 03/17/2023 2:07 PM MARKET RESEARCH SPECIALIST Plan of Treatment Health Maintenance Due Date [...] back ANTI HCV Routine 05/16/2021 3:20 PM MARKET RESEARCH SPECIALIST Need for hepatitis C screening test CT CHEST WO Routine 08/29/2010 4:53 PM CDT Pulmonary nodules from Last 3 Months or Most Recently Relevant to Health Maintenance Results * LAB TRACKING EVENT (08/05/2023 2:01 PM CDT) Other (Other) Client Collect / Unknown 08/05/2023 2:01 PM CDT 08/05/2023 9:37 PM CDT Doctor Unknown LAB BILL ONLY [facility] [address] [place] [address], * PATH TISSUE EXAM (08/05/2023 2:01 PM CDT) Case Report Pathology Report ?Case: [id number] ? Authorizing Provider: ??Unknown, Doctor ?Collected: ? 08/05/2023 1401 ? Ordering Location: ? [facility] ?Received: ?08/06/2023 1013 ? Pathologist: ? Jose Rinaldi MD ? Specimen: ?Back ? 08/07/2023 4:47 PM CDT [facility] Final Diagnosis A) SKIN, BACK, CYST, [...] [facility] Additional Information Interpreted at [facility] - [address], [place] [address] 08/07/2023 4:47 PM CDT [facility] Other (Back) 08/05/2023 2:01 PM CDT 08/06/2023 10:13 AM CDT Doctor Unknown PATHOLOGY/CYTOLOGY [facility] [address] [place] [address], * AEROBIC BACTERIAL CULTURE, STAIN (08/01/2023 9:30 AM CDT) CULTURE No Growth. 08/03/2023 3:00 PM CDT [facility] GRAM STAIN 4+ RBCs 08/03/2023 3:00 PM CDT [facility] GRAM STAIN 1+ PMNs 08/03/2023 3:00 PM CDT [facility] GRAM STAIN No Epithelial cells 08/03/2023 3:00 PM CDT [facility] GRAM STAIN 4+ Gram Positive Cocci 08/03/2023 3:00 PM CDT [facility] GRAM STAIN 3+ Gram Negative Bacilli 08/03/2023 3:00 PM CDT [facility] Other (Other) Non-Blood / Unknown 08/01/2023 9:30 AM CDT 08/01/2023 9:31 AM CDT Jena RICHARDSON MICROBIOLOGY [facility] [address] [place] [address], * ANTI HCV (05/16/2021 3:20 PM MARKET RESEARCH SPECIALIST) HEPATITIS C ANTIBODY Non-React edelmira Non-React edelmira 05/17/2021 1:21 AM MARKET RESEARCH SPECIALIST [facility] Comment:Antibodies to HCV no t detected; does not exclude the possibility of exposure to HCV. Blood BLOOD SPECIMEN / Unknown Venipuncture / Unknown 05/16/2021 3:20 PM MARKET RESEARCH SPECIALIST 05/16/2021 3:25 PM MARKET RESEARCH SPECIALIST Zak Garcia MD SEND OUTS [facility] [address] [place] [address], * CT CHEST WO CONTRAST (08/29/2010 4:53 [...] Comments Code Status Discussion: Discussed Care Teams Fruit Farmer Relationship Specialty Start Date End Date Klever Monte MD [address] [place] [address] PCP - General Family Practice 06/12/22
--- OUTSIDE RECORDS SUMMARY | 2023-08-25 09:31 | XMS_ITS | Encounter Summary ---
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 Organization [facility] Address [address] [place] [address] Support Name Relationship Address Phone JAVIER DE PAZ Next of Kin [address] [place] [address] LC DE PAZLU Emergency Contact [address] [place] [phone] JAVIER DE PAZ Next of Kin [address] [address] [address] Insurance Providers: All historical [...] Relationship to Policy Kevin BC BS [place] [facility] ([facility]) [facility] [id number] Jan 05, 2010 [id number] [employer] ANUSHA DE PAZ PATIENT MEDICARE ([facility]) MEDICARE () PART A Jan 05, 2010 PART A [id number] ANUSHA DE PAZ PATIENT MEDICARE ([facility]) MEDICARE () PART B Jan 05, 2010 PART B [id number] [phone] ANUSHA DE PAZ PATIENT MEDICARE (WN) MEDICARE () PART A Jan 05, 2010 PART A [id number] [facility] ANUSHA DE PAZ PATIENT MEDICARE (WN) MEDICARE () PART A Jan 05, 2010 PART A [id number] ANUSHA DE PAZ PATIENT MEDICARE ([facility]) MEDICARE (M) PART B Jan 05, 2010 PART B [id number] [facility] [phone] ANUSHA DE PAZ PATIENT Selected Encounter This section includes the information on record at CT for the Encounter. Date/Time Encounter Type Encounter Description Reason Pro vider Source Nov 06, 2022 11:12 AM Outpatient Encounter [facility] I[facility] Encounter Template Text not used by CT Plan of Treatment: Future Appointments (+ 6 months) and Future Tests (+/- 45 days) The Plan of Treatment section includes future care activities for the patient from all CT treatmentfacilities. This section includes future appointments and future orders which are active, pending or scheduled. Future Appointments This section includes appointments that were scheduled to occur 6 months from the date of the Encounter, up to a maximum of 20 appointments. The data comes from all CT treatment facilities. Appointment Date/Time Appointment Type Appointme nt Facility Name Apr 16, 2023 12:00 PM AMBULATORY - NONE [facility] Social History: Smoking Status (Most current) and Tobacco Use (All prior to encounter date) This section includes the most current, and the historical, smoking and tobacco- related health factors from the CT facility where the Encounter took place. Current Smoking Status This section includes the most current smoking, or tobacco-related health factor, from the CT facility where the Encounter took place. Date/Time Current Smoking Status Comment Facil ity August 07, 2022 01:30 PM VA-TOBACCO FORMER USER [facility] Tobacco Use History This section includes a history of the smoking, or tobacco-related health factors, that were collected on or before the date of the Encounter. The data comes from the CT facility where the Encounter took place. Date/Time Smoking Status/Tobacco Use Comment F acility August 07, 2022 01:30 PM VA-TOBACCO QUIT 1 TO < 5 YRS [facility] Oct 16, 2020 02:45 PM VA-TOBACCO FORMER USER [facility] Oct 16, 2020 02:45 PM VA-TOBACCO QUIT 15 YRS OR MORE [facility] Mar 29, 2019 10:59 AM VA-TOBACCO USE > 1 5 LESS THAN 30 YEARS [facility] Mar 29, 2019 10:59 AM VA-TOBACCO USE ADVICE [facility] Mar 29, 2019 10:59 AM VA-TOBACCO USE HARP REGULATOR NO [facility] Mar 29, 2019 10:59 AM VA-TOBACCO USE MED NO [facility] Mar 29, 2019 10:59 AM VA-TOBACCO USE WI 30 MIN OF WAKE UP [facility] Mar 29, 2019 10:59 AM VA-TOBACCO USER EVERY DAY [facility] Feb 17, 2018 03:39 PM VA-TOBACCO USE 30 YEARS OR MORE [facility] Feb 17, 2018 03:39 PM VA-TOBACCO USE ADVICE [facility] Feb 17, 2018 03:39 PM VA-TOBACCO USE HARP REGULATOR NO [facility] Feb 17, 2018 03:39 PM VA-TOBACCO USE MED NO [facility] Feb 17, 2018 03:39 PM VA-TOBACCO USE WI 30 MIN OF WAKE UP [facility] Feb 17, 2018 03:39 PM VA-TOBACCO USER EVERY DAY [facility] Feb 12, 2017 12:38 PM CURRENT TOBACCO USER [facility] Apr 25, 2015 07:50 AM CURRENT TOBACCO USER [facility] Apr 21, 2014 08:25 AM CURRENT TOBACCO USER [facility] Apr 20, 2013 10:04 AM CURRENT TOBACCO USER [facility] Mar 20, 2012 09:53 AM CURRENT TOBACCO USER [facility] Feb 06, 2011 09:44 AM CURRENT TOBACCO USER [facility] Jan 02, 2010 09:22 AM CURRENT TOBACCO USER [facility] Encounter Notes: All associated encounter notes This section contains the clinical notes associated to the Encounter. Date/Time Encounter Note(s) Provider Source Nov 06, 2022 11:12 AM PHARMACY NOTE: LOCAL TITLE: PHARMACY NON CT CARE MEDICATIONS STANDARD TITLE: PHARMACY NOTE DATE OF NOTE: NOV 06, 2022@11:12 ENTRY DATE: NOV 06, 2022@11:12:23 AUTHOR: ZOFIA CORREA COSIGNER: URGENCY: STATUS: COMPLETED [facility] Outpatient Pharmacy RECEIVED electronic prescription(s) (eRX(s)) from NON-VA Provider: VANITA WELCH Date eRX received: Nov not eligible to receive non-VA prescription(s) at this time. Prescription(s) REDIRECTED via FAX to [facility] (Dual[facility] Care eRx Prescription Information: 1. ANUSHA [...] GOMEZ Pharmacist Signed: 11/06/2022 11:17 JB CORREA [facility]
--- OUTSIDE RECORDS SUMMARY | 2023-08-25 09:32 | XMS_ITS | Encounter Summary ---
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 Organization Department of Vetera ns Affairs Address [address] [place] [address] Support Name Relationship Address Phone JAVIER DE PAZ Next of Kin [address] [address] [place] DE PAZLU Emergency Contact [phone] [phone] JAVIER DE PAZ Next of Kin [phone] [address] [address] Insurance Providers: All historical [...] Relationship to Policy Kevin BC BS [place] [facility] [id number] Jan 05, 2010 [id number] DEPENDS ON GROUP ANUSHA DE PAZ PATIENT MEDICARE (WN) MEDICARE (M) PART A Jan 05, 2010 PART A [id number] [phone] ANUSHA DE PAZ PATIENT MEDICARE (WNR) MEDICARE (M) PART B Jan 05, 2010 PART B [id number] [phone] ANUSHA DE PAZ PATIENT MEDICARE (WNR) MEDICARE (M) PART A Jan 05, 2010 PART A [id number] [facility] ANUSHA DE PAZ PATIENT MEDICARE (WNR) MEDICARE (M) PART A Jan 05, 2010 PART A [id number] ANUSHA DE PAZ PATIENT MEDICARE (WNR) MEDICARE (M) PART B Jan 05, 2010 PART B [id number] [facility] [phone] ANUSHA DE PAZ PATIENT Selected Encounter This section includes the information on record at DC for the Encounter. Date/Time Encounter Type Encounter Description Reason Pro vider Source Jul 18, 2023 12:00 AM Outpatient Encounter EVENT (HISTORICAL) IHE Encounter Template Text not used by DC Lab Results: +/- 30 days of the encounter This section includes the Chemistry and Hematology Lab Results on record with DC for the patient. Radiology Reports and Pathology Reports are provided separately, in subsequent sections. Lab Results This section contains the Chemistry/Hematology Results that were resulted 30 days before or 30 daysafter the date of the Encounter. Date/Time Source Result Type Result - Unit Interpretation Reference Range Comment Jul 17, 2023 04:34 PM [facility] URINALYSIS Specimen Type: URINE No comment entered. Ordering Provider: SARAH CHAUHAN Report Released Date/Time: Jul 17, 2023 04:23 PM Reporting Lab: [facility] [id number] Performing Lab: [facility] [address] URINE COLOR COLORLESS SPECIFIC GRAVITY 1.006 1.003-1.035 URINE BILIRUBIN NEGATIVE NEGATIVE URINE KETONES NEGATIVE NEGATIVE URINE GLUCOSE NEGATIVE See_Comment URINE PROTEIN NEGATIVE See_Comment URINE PH 7.0 5.0-8.0 URINE WBC/HPF <1 0-7 URINE BACTERIA NONE SEEN URINE RBC/HPF <1 0-3 APPEARANCE CLEAR SQUAMOUS EPITHELIAL NONE SEEN URINE BLOOD NEGATIVE NEGATIVE URINE NITRITE NEGATIVE NEGATIVE LEUKOCYTE ESTERASE NEGATIVE NEGATIVE Jul 17, 2023 02:17 PM [facility] HEMOGLOBIN A1C Specimen Type: BLOOD [...] August 07, 2022 02:21 PM Reporting Lab: [facility] [address] Performing Lab: [facility] [address] HEMOGLOBIN A1C 6.0 4.0-6.0 Jul 17, 2023 02:17 PM [facility] BASIC METABOLIC PANEL+MG Specimen Type: PLASMA No comment entered. Ordering Provider: SARAH CHAUHAN Report Released Date/Time: August 07, 2022 02:21 PM Reporting Lab: [facility] [address] Performing Lab: [facility] [address] CREATININE 1.3 H 0.7-1.2 UREA NITROGEN 15 8-26 GLUCOSE 84 70-100 SODIUM 137 136-145 POTASSIUM 4.6 3.5-5.1 CHLORIDE 105 98-107 CO2 24 22-29 CALCIUM 8.9 8.4-10.2 MAGNESIUM 2.1 1.6-2.6 ANION GAP 8 5-15 .CREAT EGFR(CKD-EPI) 56 L >60 Jul 17, 2023 02:17 PM [facility] CBC Specimen Type: BLOOD No comment entered. Ordering Provider: SARAH CHAUHAN Report Released Date/Time: August 07, 2022 02:21 PM Reporting Lab: [facility] [id number] Performing Lab: [facility] [address] WBC 8.72 4.0-11.0 RBC 4.11 L 4.6-6.2 HGB 13.4 L 13.5-17.9 HCT 39.7 L 41-54 MCV 96.6 80-100 MCH 32.6 27-33 MCHC 33.8 32.0-37.5 PLT 159 150-400 MPV 9.6 7.4-10.4 RDW 14.1 11.5-14.5 Jul 17, 2023 02:17 PM [facility] LIVER FUNCTION TESTS Specimen Type: PLASMA No comment entered. Ordering Provider: SARAH CHAUHAN Report Released Date/Time: August 07, 2022 02:21 PM Reporting Lab: [facility] [address] Performing Lab: [facility] [address] BILIRUBIN, TOTAL 0.8 0.2-1.2 ALKALINE PHOSPHATASE 52 40-150 ALT/SGPT 20 <55 AST/SGOT 19 <34 GAMMA GTP 38 <64 Jul 17, 2023 02:17 PM [facility] PSA Specimen Type: SERUM No comment entered. Ordering Provider: SARAH CHAUHAN Report Released Date/Time: August 07, 2022 02:21 PM Reporting Lab: [facility] [address] Performing Lab: [facility] [address] PSA 3.84 <4.00 Social History: Smoking Status (Most current) and Tobacco Use (All prior to encounter date) This section includes the most current, and the historical, smoking and tobacco- related health factors from the [place] facility where the Encounter took place. Current Smoking Status This section includes the most current smoking, or tobacco-related health factor, from the [place] facility where the Encounter took place. Date/Time Current Smoking Status Comment Facil ity Jul 17, 2023 03:00 PM VA-TOBACCO FORMER USER [facility] Tobacco Use History This section includes a history of the smoking, or tobacco-related health factors, that were collected on or before the date of the Encounter. The data comes from the [place] facility where the Encounter took place. Date/Time Smoking Status/Tobacco Use Comment F acility Jul 17, 2023 03:00 PM VA-TOBACCO QUIT 1 TO < 5 YRS [facility] August 07, 2022 01:30 PM VA-TOBACCO FORMER USER [facility] August 07, 2022 01:30 PM VA-TOBACCO QUIT 1 TO < 5 YRS [facility] Oct 16, 2020 02:45 PM VA-TOBACCO FORMER USER [facility] Oct 16, 2020 02:45 PM VA-TOBACCO QUIT 15 YRS OR MORE [facility] Mar 29, 2019 10:59 AM VA-TOBACCO USE > 1 5 LESS THAN 30 YEARS [facility] Mar 29, 2019 10:59 AM VA-TOBACCO USE ADVICE [facility] Mar 29, 2019 10:59 AM VA-TOBACCO USE CLINICAL EDUCATOR NO [facility] Mar 29, 2019 10:59 AM VA-TOBACCO USE MED NO [facility] Mar 29, 2019 10:59 AM VA-TOBACCO USE WI 30 MIN OF WAKE UP [facility] Mar 29, 2019 10:59 AM VA-TOBACCO USER EVERY DAY [facility] Feb 17, 2018 03:39 PM VA-TOBACCO USE 30 YEARS OR MORE [facility] Feb 17, 2018 03:39 PM VA-TOBACCO USE ADVICE [facility] Feb 17, 2018 03:39 PM VA-TOBACCO USE CLINICAL EDUCATOR NO [facility] Feb 17, 2018 03:39 PM VA-TOBACCO USE MED NO [facility] Feb 17, 2018 03:39 PM VA-TOBACCO USE WI 30 MIN OF WAKE UP [facility] Feb 17, 2018 03:39 PM VA-TOBACCO USER EVERY DAY [facility] Feb 12, 2017 12:38 PM CURRENT TOBACCO USER [facility] Apr 25, 2015 07:50 AM CURRENT TOBACCO USER [facility] Apr 21, 2014 08:25 AM CURRENT TOBACCO USER [facility] Apr 20, 2013 10:04 AM CURRENT TOBACCO USER [facility] Mar 20, 2012 09:53 AM CURRENT TOBACCO USER [facility] Feb 06, 2011 09:44 AM CURRENT TOBACCO USER [facility] Jan 02, 2010 09:22 AM CURRENT TOBACCO USER [facility]
--- OUTSIDE RECORDS SUMMARY | 2023-08-25 09:32 | XMS_ITS | Encounter Summary ---
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 Organization Department of Vetera ns Affairs Address [address] [place] [address] Support Name Relationship Address Phone JAVIER DE PAZ Next of [place] [address] [place] [address] LC DE PAZLU Emergency Contact [address] [address] [place], [place] [phone] JAVIER DE PAZ Next [place] [phone] [place] [address] Insurance Providers: All historical and current [...] to Policy Kevin BS [place] [facility] [id number] -[id number] Jan 05, 2010 [id number] DEPENDS ON GROUP ANUSHA DE PAZ PATIENT MEDICARE (WNR) MEDICARE (M) PART A Jan 05, 2010 PART A [id number] ANUSHA DE PAZ PATIENT MEDICARE (WNR) MEDICARE (M) PART B Jan 05, 2010 PART B [id number] [phone] ANUSHA DE PAZ PATIENT MEDICARE (WNR) MEDICARE (M) PART A Jan 05, 2010 PART A [id number] [facility] ANUSHA DE PAZ PATIENT MEDICARE (WNR) MEDICARE (M) PART A Jan 05, 2010 PART A [id number] [facility] [phone] ANUSHA DE PAZ PATIENT MEDICARE (WNR) MEDICARE () PART B Jan 05, 2010 PART B [id number] [facility] [phone] ANUSHA DE PAZ PATIENT Selected Encounter This section includes the information on record at [place] for the Encounter. Date/Time Encounter Type Encounter Description Reason Provider Source Jul 17, 2023 03:00 PM OFFICE O/P EST MOD 30 MIN PRIMARY CARE/MEDICINE ICD-10-CM Z00.01 Encounter for general adult medical exam w abnormal findings SARAH CONCEPCION E Encounter Template Text not used by [place] Assessments - Encounter Diagnoses This section includes the primary and secondary diagnoses documented for the Encounter. Date/Time Primary/Secondary Diagnosis Diagnosis Name Provider Source Jul 18, 2023 06:19 AM PRIMARY Encounter for general adult medical exam w abnormal findings ANAIS CONCEPCION [place] [facility] Jul 18, 2023 06:19 AM SECONDARY Athscl heart disease of [place] coronary artery w/o ang pctrs CONCEPCION,ANAIS VASQUEZ [place] [facility] Jul 18, 2023 06:19 AM SECONDARY Benign prostatic hyperplasia with lower urinary tract symp ANAIS CONCEPCION [facility] Jul 18, 2023 06:19 AM SECONDARY Cerebrovascular disease, unspecified CONCEPCION,ANAIS [facility] Jul 18, 2023 06:19 AM SECONDARY Chronic atrial fibrillation, unspecified CONCEPCION,ANAIS VASQUEZ [facility] Jul 18, 2023 06:19 AM SECONDARY Chronic obstructive pulmonary disease, unspecified CONCEPCION,ANAIS [facility] Jul 18, 2023 06:19 AM SECONDARY Essential (primary) hypertension TIENANAIS [facility] Jul 18, 2023 06:19 AM SECONDARY Hyperglycemia, unspecified CONCEPCIONANAIS [facility] Jul 18, 2023 06:19 AM SECONDARY Peripheral vascular disease, unspecified CONCEPCION,ANAIS [facility] Lab Results: +/- 30 days of the encounter This section includes the Chemistry and Hematology Lab Results on record with [place] for the patient. Radiology Reports and Pathology Reports are provided separately, in subsequent sections. Lab Results This section contains the Chemistry/Hematology Results that were resulted 30 days before or 30 daysafter the date of the Encounter. Date/Time Source Result Type Result - Unit Interpretation Reference Range Comment Jul 17, 2023 04:34 PM [facility] URINALYSIS Specimen Type: URINE No comment entered. Ordering Provider: SARAH CONCEPCION Report Released Date/Time: Jul 17, 2023 04:23 PM Reporting Lab: [facility] [address] Performing Lab: [facility] [address] URINE COLOR COLORLESS SPECIFIC GRAVITY 1.006 1.003-1.035 URINE BILIRUBIN NEGATIVE NEGATIVE URINE KETONES NEGATIVE NEGATIVE URINE GLUCOSE NEGATIVE See_Comment URINE PROTEIN NEGATIVE See_Comment URINE PH 7.0 5.0-8.0 URINE WBC/HPF <1 0-7 URINE BACTERIA NONE SEEN URINE RBC/HPF <1 0-3 APPEARANCE CLEAR SQUAMOUS EPITHELIAL NONE SEEN URINE BLOOD NEGATIVE NEGATIVE URINE NITRITE NEGATIVE NEGATIVE LEUKOCYTE ESTERASE NEGATIVE NEGATIVE Jul 17, 2023 02:17 PM [facility] HEMOGLOBIN A1C Specimen Type: BLOOD [...] August 07, 2022 02:21 PM Reporting Lab: [facility] [address] Performing Lab: [facility] [address] HEMOGLOBIN A1C 6.0 4.0-6.0 Jul 17, 2023 02:17 PM [facility] CBC Specimen Type: BLOOD No comment entered. Ordering Provider: SARAH CONCEPCION Report Released Date/Time: August 07, 2022 02:21 PM Reporting Lab: [facility] [address] Performing Lab: [facility] [address] WBC 8.72 4.0-11.0 RBC 4.11 L 4.6-6.2 HGB 13.4 L 13.5-17.9 HCT 39.7 L 41-54 MCV 96.6 80-100 MCH 32.6 27-33 MCHC 33.8 32.0-37.5 PLT 159 150-400 MPV 9.6 7.4-10.4 RDW 14.1 11.5-14.5 Jul 17, 2023 02:17 PM [facility] BASIC METABOLIC PANEL+MG Specimen Type: PLASMA No comment entered. Ordering Provider: SARAH CONCEPCION Report Released Date/Time: August 07, 2022 02:21 PM Reporting Lab: [facility] [address] Performing Lab: [facility] [address] CREATININE 1.3 H 0.7-1.2 UREA NITROGEN 15 8-26 GLUCOSE 84 70-100 SODIUM 137 136-145 POTASSIUM 4.6 3.5-5.1 CHLORIDE 105 98-107 CO2 24 22-29 CALCIUM 8.9 8.4-10.2 MAGNESIUM 2.1 1.6-2.6 ANION GAP 8 5-15 .CREAT EGFR(CKD-EPI) 56 L >60 Jul 17, 2023 02:17 PM [facility] PSA Specimen Type: SERUM No comment entered. Ordering Provider: SARAH CONCEPCION Report Released Date/Time: August 07, 2022 02:21 PM Reporting Lab: [facility] [address] Performing Lab: [facility] [address] PSA 3.84 <4.00 Jul 17, 2023 02:17 PM [facility] LIVER FUNCTION TESTS Specimen Type: PLASMA No comment entered. Ordering Provider: SARAH CONCEPCION Report Released Date/Time: August 07, 2022 02:21 PM Reporting Lab: [facility] [address] Performing Lab: [facility] [address] BILIRUBIN, TOTAL 0.8 0.2-1.2 ALKALINE PHOSPHATASE 52 40-150 ALT/SGPT 20 <55 AST/SGOT 19 <34 GAMMA GTP 38 <64 Vital Signs: All taken on the encounter date This section contains inpatient and outpatient Vital Signs collected on the date of the Encounter. Date/Time Temperature Pulse Blood Pressure Respiratory Rate SP02 Pain Height Weight Body Mass Index Source Jul 17, 2023 03:21 PM 74 142/90 [facility] Jul 17, 2023 03:03 PM 98.1 82 135/93 16 96 0 74 202.7 26 [facility] Social History: Smoking Status (Most current) [...] ity Jul 17, 2023 03:00 PM VA-TOBACCO QUIT 1 TO < 5 YRS [facility] Tobacco Use History This section includes a history of the smoking, or tobacco-related health factors, that were collected on or before the date of the Encounter. The data comes from the [place] facility where the Encounter took place. Date/Time Smoking Status/Tobacco Use Comment F acartie Jul 17, 2023 03:00 PM VA-TOBACCO QUIT 1 TO < 5 YRS [facility] August 07, 2022 01:30 PM VA-TOBACCO FORMER USER [facility] August 07, 2022 01:30 PM VA-TOBACCO QUIT 1 TO < 5 YRS [facility] Oct 16, 2020 02:45 PM VA-TOBACCO FORMER USER [facility] Oct 16, 2020 02:45 PM VA-TOBACCO QUIT 15 YRS OR MORE [facility] Mar 29, 2019 10:59 AM VA-TOBACCO USE > 1 5 LESS THAN 30 YEARS [facility] Mar 29, 2019 10:59 AM VA-TOBACCO USE ADVICE [facility] Mar 29, 2019 10:59 AM VA-TOBACCO USE STATE MANAGER NO [facility] Mar 29, 2019 10:59 AM VA-TOBACCO USE MED NO [facility] Mar 29, 2019 10:59 AM VA-TOBACCO USE WI 30 MIN OF WAKE UP [facility] Mar 29, 2019 10:59 AM VA-TOBACCO USER EVERY DAY [facility] Feb 17, 2018 03:39 PM VA-TOBACCO USE 30 YEARS OR MORE [facility] Feb 17, 2018 03:39 PM VA-TOBACCO USE ADVICE [facility] Feb 17, 2018 03:39 PM VA-TOBACCO USE STATE MANAGER NO [facility] Feb 17, 2018 03:39 PM VA-TOBACCO USE MED NO [facility] Feb 17, 2018 03:39 PM VA-TOBACCO USE WI 30 MIN OF WAKE UP [facility] Feb 17, 2018 03:39 PM VA-TOBACCO USER EVERY DAY [facility] Feb 12, 2017 12:38 PM CURRENT TOBACCO USER [facility] Apr 25, 2015 07:50 AM CURRENT TOBACCO USER [facility] Apr 21, 2014 08:25 AM CURRENT TOBACCO USER [facility] Apr 20, 2013 10:04 AM CURRENT TOBACCO USER [facility] Mar 20, 2012 09:53 AM CURRENT TOBACCO USER [facility] Feb 06, 2011 09:44 AM CURRENT TOBACCO USER [facility] Jan 02, 2010 09:22 AM CURRENT TOBACCO USER [facility] Encounter Notes: All associated encounter [...] provided to the patient is available in Notegraphy. SCANNED DOCUMENT SIGNATURE NOT REQUIRED Electronically Filed: 07/17/2023 by: Morgan Concepcion MD Staff Physician MORGAN CONCEPCION [facility] Jul 17, 2023 03:25 PM INTERNAL MEDICINE NOTE: LOCAL TITLE: MEDICINE CLINIC NOTE STANDARD TITLE: INTERNAL MEDICINE NOTE DATE OF NOTE: JUL 17, 2023@15:25 ENTRY DATE: JUL 17, 2023@15:25:20 AUTHOR: MORGAN CONCEPCION EXP COSIGNER: URGENCY: STATUS: COMPLETED ASSESSMENT AND PLAN Co-Managed Health Care. 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 No focal deficits. Does appear to have some receptive cognitive difficulties. Atrial fibrillation on Apixaban for anticoagulation, Metoprolol SA for rate control. Coronary artery disease status post stenting in 2020. Rosuvastatin for lipids. Hypertension treated with Nifedipine SA. L leg edema on Furosemide/KCl M-W-. Trial of w/holding Furosemide to see if [...] of problems per problem list. Co-Managed at [facility] in [place], last seen 3 months ago. History of [...] stents placed in 2019. Still follows with [facility] for this. Wears knee-high compression stocking [...] for the followin. Essential hypertension (SNOMED CT 60536255) 2. Atrial fibrillation (SNOMED CT 58505116) - Warfarin through [facility] 3. Allergic rhinitis (SNOMED CT 66623741) 4. Current smoker - Cigars, not cigarettes 5. Glucose intolerance 6. COPD - Chronic Obstructive Pulmonary Disease ([facility] 15618955) - Mometasone & Albuterol MDI's 7. Co-Managed Care - Dr Garcia, [facility], F: [phone], 8. Sod of toe - R middle toe 9. Peripheral arterial insufficiency - 01/21/20: L femoral Art occlusion per [facility]-->Fem-Tibial bypass planned 10. CAD - Coronary Artery Disease ([facility] 25474423) - 01/27/20: LAD and Dx stented w/SATHYA at [facility]. Plavix +ASA thru 01/26/21 11. CVD - Cerebrovascular Disease ([facility] 17134990) - 03/19/20: L MCA CVA, Admit ANW. Cardio-embolic d/t Warfarin DC SURGERIES - NONE FOUND LISINOPRIL (Mar 05, 2010) FINAL MEDICATION RECONCILIATION See Medication Reconciliation below IM - Immunizations ADMINISTERED Immunization Series Date Facility Reaction Info COVID-19 ([facility]), MRNA, LNP-S, * 04/24/2022 [facility] COVID-19 ([facility]), MRNA, LNP-S, * 02/09/2021 [facility] [facility] COVID-19 ([facility]), MRNA, LNP-S, * 2 06/17/2020 [facility]* COVID-19 ([employer]), MRNA, LNP-S, * 1 05/27/2020 [facility]* COVID-19 ([facility]), MRNA, LNP-S, * 08/24/2021 [facility] INFLUENZA VACCINE, QUADRIVALENT,* 12/29/2020 [facility] [facility] INFLU[place] VACCINE, QUADRIVALENT,* 01/06/2020 [facility] [facility] INFLUENZA, HIGH DOSE SEASONAL 02/12/2017 [place]* INFLUENZA, HIGH DOSE SEASONAL 04/09/2016 [facility] [facility] INFLUENZA, HIGH DOSE SEASONAL 04/25/2015 [place] INFLUENZA, [facility]ONAL, [facility], SEASONAL, INJECTABLE [place] INFLUENZA, TRIVALENT, ADJUVANTED 02/24/2019 [facility] [facility] INFLUENZA, TRIVALENT, ADJUVANTED 12/23/2017 [facility] [facility] INFLUENZA, UNSPECIFIED FORMULATI* 12/29/2020 [facility] INFLUENZA, UNSPECIFIED FORMULATI* 02/07/2014 [place]* INFLUENZA, [...] IIS TDAP 04/07/2007 [place]* <C> ZOSTER LIVE [place] ZOSTER LIVE 10/31/2006 [facility] [facility] ZOSTER RECOMBINANT [...] Last:08-07-22 MOUTH EVERY DAY FOR CONGESTIVE HEART Expr:05-03-24 FAILURE Start Date Active Non-VA Medications Refills Expiration 1) Non-VA CHOLECALCIF 25MCG (D3-1,000UNIT) ACTIVE TAB Si UNIT MOUTH EVERY OTHER DAY 23 Total Medications Follow Up Colonoscopy: Colonoscopy is due based on information available to this reminder. Patient has arranged or is choosing to arrange a Colonoscopy independent of and w/out assistance from this [place]. Through [facility]. /naina/ Morgan Concepcion MD Staff Physician Signed: 07/18/2023 06:19 MORGAN CONCEPCION [facility] Jul 17, 2023 03:09 PM INTERNAL MEDICINE [...] ulcers, or a wound from a medical parasitologist or Patient is bed-confined or a wheelchair-user or Patient requires assistance to transfer/change position No, Skin Screen is Negative Home Abuse/Violence Screen Is your home free of abuse and violence? Yes MOVE! Program Screen Body Mass Index (BMI)= 26.1 [place]: Collection DT Specimen Test Name Result Units Ref Range 07/17/2023 14:17 BLOOD !! HEMOGLOBIN A1C 6.0 % 4.0 - 6.0 !! Indicates COMMENTS AVAILABLE...Refer to Interim Lab Report. [facility] Hgb A1C: No data available [place] Hgb A1C: No data available Point of Care Hgb A1C: POC HGB A1C____ Outpatient Nutrition Screen Body Mass Index (BMI)= 26.1 [place]s: Collection DT Specimen Test Name Result Units Ref Range 07/17/2023 14:17 BLOOD !! HEMOGLOBIN A1C 6.0 % 4.0 - 6.0 !! Indicates COMMENTS AVAILABLE...Refer to Interim Lab Report. [facility] Hgb A1C: No data available [place] Hgb A1C: No data available Point of [...] Not worried about housing near future The [place] reports the following: Within the past 12 months, you worried whether your food would run out before you got money to buy more. Never true Within the past 12 months, the food you bought just didn't last and you didn't have money to get more. Never true Food Assistance Programs [facility] Food Assistance [facility] Depression Screening: Perform PHQ-2 A PHQ-2 screen was performed. The score was 0 which is a negative screen for depression. Over the past two weeks, how often have you been bothered by the following problems? 1. Little interest or pleasure in doing things Not at all 2. Feeling down, depressed, or hopeless Not at all Suicide Screen: C-SSRS Screening [place]-Suicide Severity Rating Scale (C-SSRS Screener) 1. Over [...] responses to other questions. /naina/ ANNA COTTRELL FILTER CHANGER Signed: 07/17/2023 15:19 07/17/2023 ADDENDUM STATUS: COMPLETED Procedure: Residual Urine Participant instructed and verbalized understanding of procedure. Patient instructed and verbalizes that they have emptied the bladder completely. Ultrasound RU: 111 cc /naina/ ANNA COTTRELL FILTER CHANGER Signed: 07/17/2023 16:33 ANNA COTTRELL [facility] Jul 17, 2023 02:25 PM ADVANCE DIRECTIVE: LOCAL TITLE: AD NOTIFICATION AND SCREENING STANDARD TITLE: ADVANCE DIRECTIVE DATE OF NOTE: JUL 17, 2023@14:25 ENTRY DATE: JUL 17, 2023@14:25:41 AUTHOR: AURELIA EGAN EXP COSIGNER: URGENCY: STATUS: COMPLETED ADVANCE DIRECTIVE NOTIFICATION: Patient was given written notification of the following rights: 1. Accept or refuse any medical treatment. 2. Complete a durable power of trade mark attorney for health care. 3. Complete a living will. ADVANCE DIRECTIVE SCREENING: Does patient have an Advance Directive? The patient does not have an Advance Directive. The patient does not wish to create an Advance Directive for health care. Comment: DECLINED /naina/ AURELIA EGAN Advance Brown Stock Washer Signed: 07/17/2023 14:26 AURELIA EGAN [facility]
--- OUTSIDE RECORDS SUMMARY | 2023-08-25 09:32 | XMS_ITS | Data Portability ---
Author Name Unknown Address [address] [place] [address] Phone [phone] Organization [place] [facility], [employer] Address [address] [place] [address] Assessment Encounter Date Assessment Date Assessment LastModified [...] user Active 2015 Tobacco user; Original Code: [id number] Origi nal Codesystem: SNOMED CT Classificati on: Medical Confirm ation Status: Probable Not Available [facility] Onychomycosis of toenails Active 2015 Onychomycosis of toenails; Original Code: [id number] Orig inal Codesystem: SNOMED CT Classificati on: Medical Confirm ation Status: Confirmed Not Available [facility] 09:10:17 Heart disease Active 2021 Heart disease; Original Code: 13842715 Origin al Codesystem: SNOMED CT Classificati on: Medical Confirm ation Status: Confirmed Not Available [facility] 3 09:10:17 Corns and callus Active 2015 Corns and callus; Original Code: [id number] Origi nal Codesystem: SNOMED CT Classificati on: Medical Confirm ation Status: Confirmed Not Available [facility] 3 09:10:17 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; Original Code: [id number] Orig inal Codesystem: SNOMED CT Classificati on: Medical Confirm ation Status: Confirmed Not Available [facility] 3 09:10:17 Foot pain Active 2015 Foot pain; Original Code: 511649797 Origi nal Codesystem: SNOMED CT Classificati on: Medical Confirm ation Status: Confirmed Not Available [facility] 3 09:10:17 Acquired hallux valgus Active 2015 Acquired hallux valgus; Original Code: 167130757 Origi nal Codesystem: SNOMED CT Classificati on: Medical Confirm ation Status: Confirmed Not Available [facility] 3 09:10:17 Acquired hallux malleus Active 2015 Acquired hallux malleus; Original Code: 60030611 Origin al Codesystem: SNOMED CT Classificati on: Medical Confirm ation Status: Confirmed Not Available [facility] 3 09:10:17 Atrial fibrillation Active 2015 Atrial fibrillation; Original Code: 82322668 Origin al Codesystem: SNOMED CT Classificati on: Medical Confirm ation Status: Confirmed Not Available [facility] 3 09:10:17 Hypertensive disorder Active 2015 Hypertensive disorder; Original Code: [id number] Orig inal Codesystem: SNOMED CT Classificati on: Medical Confirm ation Status: Confirmed Not Available [facility] 09:10:17 Notes:H/O: anticoagulant the bharti Original Code: [id number] Original Codesystem: SNOMED CT Classification: Medical Confirmation Status: Confirmed Problem Notes None recorded. Procedures Surgical History Date Name Laterality Status Provider Name and Address Organization Details Recorded Time 10/24/[address] Hong Andres DPM [address] [place] [address], [phone], [facility] 10/23/2022 11:44:57 07/25/[address] Hong Andres DPM [address] [place] [address], [phone], [facility] 07/24/2022 10:35:10 04/24/[address] Hong Andres DPM [address] [place] [address], [id number], [facility] [...] Updated DateTime 04/24/2022 190.5 cm 25 kg/m2 38518.47 g Mamta Corbett [facility] 04/24/2022 10:32:58 Social History None recorded. Functional Status None recorded. Mental Status None recorded. Family History Nothing Reported. Medical History No medical history recorded. Past Encounters Encounter ID Performer Location Encounter Start Date Encounter Closed Date Diagnosis/Indication Diagnosis SNOMED-CT Code [id number] Too Andres DPM [facility] [address] [place] [address] [address] [place] [address] 04/24/2022 10:31:04 04/24/2022 13:46:36 Onychomycosis [id number] Peripheral vascular disease [id number] 4776 Too Andres DPM [facility] [address] [place] [address] 07/24/2022 10:14:25 07/25/2022 09:45:42 Onychomycosis 700001767 Peripheral vascular disease [id number] 7314 Too Andres DPM [facility] [address] [place] [address] 10/23/2022 10:13:43 10/24/2022 09:44:58 Onychomycosis 362316847 Peripheral vascular disease [id number] Health Concerns Section Related Observation LastModified by Organization Detai ls LastModified Time None Recorded Concern Status LastModified by Organization Details LastModified Time None Recorded Advance Directives Directive None Recorded Payers Encounter Date Sequence Insurance Name Policy Number Policy Kevin Covered Member ID Kevin Member ID Guarantor Name 10/23/2022 1 [facility] [facility] [id number] Bola Zurita [id number] Bola Zurita 07/24/2022 1 [employer] [id number] Bola Zurita [id number] Bola Zurita 04/24/2022 1 [place] [id number] Bola Zurita [id number] Bola Zurita Notes Date Note Type Note Provider Name and Address Organization Details Recorded Time 04/24/2022 text/html HPI Notes: Pawel salmeron is a 77 year old male established patient who presents with the chief complaint. Presents today for evaluation of problematic toenails and feet in general. They relate chronic thickening and deformity to their toenails that has not responded to self-trimming, topical [id number]-zruaxma anti-fungal therapy, foot soaks, and other similar conservative treatments. Nails are painful with catching on shoegear and socks. Denies any recent foot injury or infection. Claudication symptoms: No Burning symptoms: No Paresthesia: Subjective numbness to the left lower extremity consistent with his previous surgical procedures performed through [facility] in the [facility] Patient presents for further evaluation and treatment options. Too Andres DPM [address] [place] [address], [phone], [facility] 04/24/2022 11:14:44 07/24/2022 text/html HPI Notes: Pawel salmeron is a 77 year old male established patient who presents with the chief complaint. Presents today for evaluation of problematic toenails and feet in general. They relate chronic thickening and deformity to their toenails that has not responded to self-trimming, topical [id number]-rkigmvj anti-fungal therapy, foot soaks, and other similar [...] and treatment options. Too Andres DPM [address] [place], [address], [facility] 07/24/2022 10:35:54 10/23/2022 text/html HPI Notes: Pawel salmeron is a 77 year old male established patient who presents with the chief complaint. Presents today for evaluation of problematic toenails and feet in general. They relate chronic thickening and deformity to their toenails that has not responded to self-trimming, topical [id number]-[id number] anti-fungal therapy, foot soaks, and other similar [...] and treatment options. Too Andres DPM [address] [place], [address], [facility] 10/23/2022 11:45:19
== END 2023-08-25 09:30 | disposition home or self-care (01) ==
LOC: WOUND 09:29
PROVIDERS: PCP Family Medicine; Visit Provider Nurse Practitioner Family
DX: L02.212 Cutaneous abscess of back [any part, except buttock and flank] (principal); L72.0 Epidermal cyst
CPT/HCPCS: 97597

== ENCOUNTER 2023-08-29 10:58 | Outpatient (CLI) | payer MEDICARE, BC, SELFPAY ==
--- OUTSIDE RECORDS SUMMARY | 2023-08-29 11:01 | XMS_ITS | Continuity of Care Document ---
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 It does not include entries that were removed or entered in error. Problem Status Onset Date Problem Type Date of Resolution Comments Source CVD - Cerebrovascular Disease ([facility] 93600208) Active 03/19/20 20 Condition May 01, 2020 Entered By: YOAV CHAUHAN Comment: 03/19/20: L MCA CVA, Admit ANW. Cardio-embol ic d/t Warfarin DC [facility] CAD - Coronary Artery Disease ([facility] [id number]) Active 01/27/20 20 Condition Mar 13, 2020 Entered By: YOAV CHAUHAN Comment: 01/27/20: LAD and Dx stented w/SATHYA at [facility]. Plavix +ASA thru 01/26/21 [facility] Peripheral arterial insufficiency Active 01/21/20 20 Condition Mar 13, 2020 Entered By: YOAV CHAUHAN Comment: 01/21/20: L femoral Art occlusion per [facility]-->Fem -Tibial bypass planned [facility] Allergic rhinitis (SNOMED CT 59164377) Active Condition [facility] Atrial fibrillation (SNOMED CT 39299627) Active Condition Apr 26, 2015 Entered By: YOAV CHAUHAN Comment: Warfarin through Miryam Rodriguez [facility] Co-Managed Care Active Condition Dec 25, 2017 Entered By: YOAV CHAUHAN Comment: Dr Garcia, Michael [place], F: [phone] , [facility] COPD - Chronic Obstructive Pulmonary Disease ([facility] 79401943) Active Condition Dec 25, 2017 Entered By: YOAV CHAUHAN Comment: Mometasone & Albuterol MDI's [facility] Beaver of toe Active Condition Sep 08, 2019 Entered By: YOAV CHAUHAN Comment: R middle toe [facility] Current smoker Active Condition Apr 082015 Entered By: YOAV CHAUHAN Comment: Cigars, not cigarettes [facility] Essential hypertension (SNOMED CT 71339956) Active Condition [facility] Glucose intolerance Active Condition [facility] Nocturia due to benign prostatic hypertrophy Active Condition [facility] Health Maintenance (ICD-9-CM V65.9) Inactive Condition 04/26/2015 BELGICA MANCILLA [facility] Diagnosis: ICD-10-CM Z00.01 Encounter for general adult medical exam w abnormal findings [facility] Diagnosis: 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 [facility] Diagnosis: ICD-10-CM Z76.0 Encounter for issue of repeat prescription Active Diagnosis [facility] Medications Combined list of outpatient medications from [...] S OF BREATH INHALA TION HOLD 07/17/2024 [id number] AFRICA CHAUHAN 2023 2 [facility] ALBUTEROL 90MCG/ACTUA T (CFC-F) INHL,ORAL,8 .5GM DOSE COUNTER INHALE 2 PUFFS BY INHALATI ON FOUR TIMES A DAY NEEDED FOR SHORTNES S OF BREATH INHALA TION DISCONT INUED 08/08/2023 [id number] 3 AFRICA CHAUHAN 2022 2 [facility] APIXABAN 5MG TAB TAKE ONE TABLET BY MOUTH EVERY 12 HOURS TO PREVENT BLOOD CLOTS AND STROKE (ELIQUIS ) ORALLY ACTIVE 05/29/2024 [id number] 4 MARIANO GARCIA 2023 180 [facility] APIXABAN 5MG TAB TAKE ONE TABLET BY MOUTH EVERY 12 HOURS TO PREVENT BLOOD CLOTS AND STROKE (ELIQUIS ) ORALLY DISCONT INUED 05/09/2023 [id number] 3 MARIANO GARCIA 2022 180 [facility] CHOLECALCIF JONNA 25MCG (1,000UNIT) TAB TAKE FIVE TABLETS BY MOUTH QOD ORALLY ACTIVE AFRICA CHAUHAN 2016 [facility] FLUOCINONID E 0.1% CREAM,TOP APPLY A THIN LAYER TOPICALL Y TWICE A DAY NEEDED FOR RASH TOPICA LLY ACTIVE 12/13/2023 [id number] 3 AFRICA CHAUHAN 2022 60 [facility] FLUTICASONE 250MCG/SALM ETEROL 50MCG INHL,ORAL,D ISKUS,60 INHALE 1 PUFF BY INHALATI ON TWICE A DAY FOR COPD INHALA TION ACTIVE 07/17/2024 [id number] 4 AFRICA CHAUHAN 2023 3 [facility] FLUTICASONE 250MCG/SALM ETEROL 50MCG INHL,ORAL,D ISKUS,60 INHALE 1 PUFF BY INHALATI ON TWICE A DAY FOR COPD THIS REPLACES YOUR MOMETASO NE INHALA TION DISCONT INUED 08/08/2023 [id number] 4 AFRICA CHAUHAN 2022 3 [facility] FUROSEMIDE 20MG TAB TAKE ONE TABLET BY MOUTH THREE TIMES A WEEK FOR HEART FAILURE ORALLY ACTIVE 02/25/2024 [id number] 3 Hong DONAHUE 2022 39 [facility] FUROSEMIDE 20MG TAB TAKE ONE TABLET BY MOUTH EVERY OTHER DAY FOR HEART FAILURE ORALLY DISCONT INUED (EDIT) 08/13/2023 [id number] 3 AFRICA CHAUHAN 2022 45 [facility] FUROSEMIDE 20MG TAB TAKE ONE TABLET BY MOUTH EVERY MORNING FOR HEART FAILURE ORALLY DISCONT INUED 08/08/2023 [id number] 3 AFRICA CHAUHAN 2022 90 [facility] FUROSEMIDE 20MG TAB TAKE ONE TABLET BY MOUTH EVERY MORNING FOR HEART FAILURE ORALLY DISCONT INUED 11/16/2022 [id number] 3 AFRICA CHAUHAN 2021 90 [facility] HYDROCHLORO THIAZIDE 12.5MG TAB TAKE ONE TABLET BY MOUTH EVERY DAY FOR BLOOD PRESSURE ORALLY DISCONT INUED 08/08/2023 [id number] 3 AFRICA CHAUHAN 2022 90 [facility] METOPROLOL SUCCINATE 100MG TAB,SA TAKE ONE AND ONE-HALF TABLETS BY MOUTH EVERY DAY ORALLY DISCONT INUED 11/16/2022 [id number] 3 AFRICA CHAUHAN 2021 135 [facility] METOPROLOL SUCCINATE 50MG TAB,SA TAKE THREE TABLETS BY MOUTH EVERY DAY FOR BLOOD PRESSURE ORALLY DISCONT INUED 08/08/2023 [id number] 3 AFRICA CHAUHAN 2022 270 [facility] METOPROLOL TARTRATE 100MG TAB TAKE ONE TABLET BY MOUTH TWICE A DAY FOR BLOOD PRESSURE ORALLY ACTIVE 12/13/2023 [id number] 4 AFRICA CHAUHAN 2022 180 [facility] MOMETASONE FUROATE 220MCG/INHL INHL,ORAL,6 0 INHALE 1 PUFF BY MOUTH TWICE A DAY TO PREVENT TROUBLE BREATHIN G TWIST COVER ON AND OFF TO LOAD NEXT DOSERI NSE MOUTH AFTER USING * DO NOT WASH INHALER ORALLY DISCONT INUED 11/16/2022 [id number] 3 AFRICA CHAUHAN 2021 3 [facility] NIFEDIPINE (EQV-CC) 60MG TAB,SA TAKE ONE TABLET BY MOUTH EVERY DAY FOR BLOOD PRESSURE ORALLY DISCONT INUED BY PROVIDE R 08/08/2023 [id number] 3 AFRICA CHAUHAN 2022 90 [facility] NIFEDIPINE (EQV-CC) 60MG TAB,SA TAKE ONE TABLET BY MOUTH EVERY DAY FOR BLOOD PRESSURE ORALLY DISCONT INUED 09/11/2022 [id number] 3 AFRICA CHAUHAN 2022 90 [facility] NIFEDIPINE (EQV-CC) 60MG TAB,SA TAKE ONE TABLET BY MOUTH EVERY DAY FOR BLOOD PRESSURE ORALLY DISCONT INUED 08/28/2022 [id number] 3 AFRICA CHAUHAN 2022 90 [facility] NIFEDIPINE (EQV-CC) 90MG TAB,SA TAKE ONE TABLET BY MOUTH EVERY DAY FOR BLOOD PRESSURE ORALLY SUSPEND ED 07/17/2024 [id number] 4 AFRICA CHAUHAN 2023 90 [facility] NIFEDIPINE (EQV-CC) 90MG TAB,SA TAKE ONE TABLET BY MOUTH EVERY DAY FOR BLOOD PRESSURE INCREASE D DOSE PER CO-MANAG ED CARE INCREASE D DOSE PER CO-MANAG ED CARE ORALLY DISCONT INUED 12/13/2023 [id number] 4 AFRICA CHAUHAN 2022 90 [facility] POTASSIUM CHLORIDE 10MEQ TAB,SA TAKE ONE TABLET BY MOUTH THREE TIMES A WEEK FOR POTASSIU M SUPPLEME NT TAKE WITH FUROSEMI DE ORALLY ACTIVE 02/25/2024 [id number] 3 Hong DONAHUE A 2022 39 [facility] POTASSIUM CHLORIDE 10MEQ TAB,SA TAKE ONE TABLET BY MOUTH EVERY OTHER DAY FOR POTASSIU M SUPPLEME NT ORALLY DISCONT INUED (EDIT) 08/13/2023 [id number] 3 AFRICA CHAUHAN 2022 45 [facility] POTASSIUM CHLORIDE 10MEQ TAB,SA TAKE ONE TABLET BY MOUTH EVERY DAY FOR CONGESTI VE HEART FAILURE ORALLY DISCONT INUED 08/08/2023 [id number] 3 AFRICA CHAUHAN 2022 90 [facility] POTASSIUM CHLORIDE 10MEQ TAB,SA TAKE ONE TABLET BY MOUTH EVERY DAY FOR CONGESTI VE HEART FAILURE ORALLY DISCONT INUED 11/16/2022 [id number] 3 AFRICA CHAUHAN 2021 90 [facility] ROSUVASTATI N CA 20MG TAB TAKE ONE TABLET BY MOUTH AT BEDTIME FOR CORONARY ARTERY DISEASE ORALLY HOLD 07/17/2024 [id number] AFRICA CHAUHAN 2023 90 [facility] ROSUVASTATI N CA 20MG TAB TAKE ONE TABLET BY MOUTH AT BEDTIME FOR CORONARY ARTERY DISEASE ORALLY DISCONT INUED 08/08/2023 [id number] 4 AFRICA CHAUHAN 2022 90 [facility] TAMSULOSIN HCL 0.4MG CAP TAKE ONE CAPSULE BY MOUTH EVERY EVENING FOR PROSTATE ORALLY ACTIVE 07/17/2024 [id number] 4 AFRICA CHAUHAN 2023 30 [facility] Allergies, Adverse Reactions, Alerts Combined list of allergies from Department of Defense and Veterans Affairs facilities. It does not include entries that were removed or entered in error. Substance Category Reaction Severity Reaction type Status Date Reported Comments Source LISINOPRIL Propensity to adverse reactions to drug (finding) Cough active 0 [facility] Immunizations Combined list of available immunizations from the Department of Defense and Veterans Affairs facilities. 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 Status Comments Source COVID-19 (MindQuilt), MRNA, LNP-S, BIVALENT, PF, 30 MCG/0.3 ML DOSE 2022 300 complet ed [facility] COVID-19 (PFIZER), MRNA, LNP-S, PF, 30 MCG/0.3 ML DOSE, JAMES-SUCROSE (AGES 12+ YEARS) 2021 217 complet ed [facility] COVID-19 (PFIZER), MRNA, LNP-S, PF, 30 MCG/0.3 ML DOSE 2020 208 complet ed [facility] ZOSTER RECOMBINANT 2 2020 187 complet ed [facility] INFLUENZA VACCINE, QUADRIVALENT, ADJUVANTED 2020 205 complet ed [facility] INFLUENZA, UNSPECIFIED FORMULATION 2020 88 complet ed [facility] ZOSTER RECOMBINANT 1 2020 187 complet ed [facility] COVID-19 (MindQuilt), MRNA, LNP-S, PF, 30 MCG/0.3 ML DOSE 2 2020 208 complet ed [facility] COVID-19 (PFIZER), MRNA, LNP-S, PF, 30 MCG/0.3 ML DOSE 1 2020 208 complet ed [facility] INFLUENZA VACCINE, QUADRIVALENT, ADJUVANTED 2019 205 complet ed [facility] INFLUENZA, TRIVALENT, ADJUVANTED 2018 168 complet ed [facility] INFLUENZA, SEASONAL, INJECTABLE 2018 141 complet ed [facility] INFLUENZA, SEASONAL, INJECTABLE 2017 141 complet ed [facility] INFLUENZA, TRIVALENT, ADJUVANTED 2017 168 complet ed [facility] INFLUENZA, HIGH DOSE SEASONAL 2016 135 complet ed [facility] PNEUMOCOCCAL POLYSACCHARID E PPV23 2016 33 complet ed [employer] , [id number], 06/03/18 [facility] TD (ADULT), 2 LF TETANUS TOXOID, PRESERVATIVE FREE, ADSORBED 2016 09 complet ed [employer] [id number], 12/19/18 [facility] INFLUENZA, HIGH DOSE SEASONAL 2016 135 complet ed [facility] PNEUMOCOCCAL POLYSACCHARID E PPV23 2016 33 complet ed [facility] INFLUENZA, HIGH DOSE SEASONAL 2015 135 complet ed [facility] PNEUMOCOCCAL CONJUGATE PCV 13 2015 133 complet ed [employer] [facility] PNEUMOCOCCAL CONJUGATE PCV 13 2014 133 complet ed [facility] INFLUENZA, UNSPECIFIED FORMULATION 2013 88 complet ed [facility] INFLUENZA, UNSPECIFIED FORMULATION 2013 88 complet ed [facility] INFLUENZA, UNSPECIFIED FORMULATION 2011 88 complet ed [facility] INFLUENZA, UNSPECIFIED FORMULATION 2010 88 complet ed [facility] PNEUMOCOCCAL, UNSPECIFIED FORMULATION 2009 109 complet ed [employer],093 02,10/21/ 011 [facility] TDAP 2009 115 complet ed [facility] ZOSTER LIVE 2008 121 complet ed [facility] TDAP 2007 115 complet ed private [facility] ZOSTER LIVE 2006 121 complet ed [facility] Results Combined list of recent chemistry, [...] 04:23 PM Reporting Lab: [facility] [address] Performing Lab: [facility] [address] [facility] URINALYS IS SPECIFIC GRAVITY OF URINE 1.006 1.003 - 1.035 07/16 Specimen Type: URINE No comment entered. Ordering Provider: TERRENCE CHAUHAN Report Released Date/Time: Jul 17, 2023 04:23 PM Reporting Lab: [facility] [address] Performing Lab: [facility] [address] [facility] URINALYS IS BILIRUBIN. TOTAL [PRESENCE] IN URINE BY TEST STRIP NEGATIVE 07/16 Specimen Type: URINE No comment entered. Ordering Provider: TERRENCE CHAUHAN Report Released Date/Time: Jul 17, 2023 04:23 PM Reporting Lab: [facility] [address] Performing Lab: [facility] [address] [facility] URINALYS IS KETONES [MASS/VOLU ME] IN URINE BY TEST STRIP NEGATIVE 07/16 Specimen Type: URINE No comment entered. Ordering Provider: TERRENCE CHAUHAN Report Released Date/Time: Jul 17, 2023 04:23 PM Reporting Lab: [facility] [address] Performing Lab: [facility] [address] [facility] URINALYS IS GLUCOSE [MASS/VOLU ME] IN URINE BY TEST STRIP NEGATIVE 07/16 Specimen Type: URINE No comment entered. Ordering Provider: TERRENCE CHAUHAN Report Released Date/Time: Jul 17, 2023 04:23 PM Reporting Lab: [facility] [address] Performing Lab: [address] [place] [facility] URINALYS IS PROTEIN [MASS/VOLU ME] IN URINE BY TEST STRIP NEGATIVE 07/16 Specimen Type: URINE No comment entered. Ordering Provider: TERRENCE CHAUHAN Report Released Date/Time: Jul 17, 2023 04:23 PM Reporting Lab: [facility] [address] Performing Lab: [facility] [address] [place] [facility] URINALYS IS PH OF URINE BY TEST STRIP 7.0 5.0 - 8.0 07/16 Specimen Type: URINE No comment entered. Ordering Provider: TERRENCE CHAUHAN Report Released Date/Time: Jul 17, 2023 04:23 PM Reporting Lab: [facility] [address] Performing Lab: [facility] [address] [place] [facility] URINALYS IS LEUKOCYTES [#/AREA] IN URINE SEDIMENT BY MICROSCOPY HIGH POWER FIELD <1 0 - 7 07/16 Specimen Type: URINE No comment entered. Ordering Provider: TERRENCE HCAUHAN Report Released Date/Time: Jul 17, 2023 04:23 PM Reporting Lab: [facility] [address] Performing Lab: [facility] [address] [place] [facility] URINALYS IS BACTERIA [PRESENCE] IN URINE SEDIMENT BY LIGHT MICROSCOPY NONE SEEN 07/16 Specimen Type: URINE No comment entered. Ordering Provider: TERRENCE CHAUHAN Report Released Date/Time: Jul 17, 2023 04:23 PM Reporting Lab: [facility] [address] Performing Lab: [facility] [address] [place] [facility] URINALYS IS ERYTHROCYT ES [#/AREA] IN URINE SEDIMENT BY MICROSCOPY HIGH POWER FIELD <1 0 - 3 07/16 Specimen Type: URINE No comment entered. Ordering Provider: TERRENCE CHAUHAN Report Released Date/Time: Jul 17, 2023 04:23 PM Reporting Lab: [facility] [address] Performing Lab: [facility] [address] [place] [facility] URINALYS IS APPEARANCE OF URINE CLEAR 07/16 Specimen Type: URINE No comment entered. Ordering Provider: TERERNCE CHAUHAN Report Released Date/Time: Jul 17, 2023 04:23 PM Reporting Lab: [facility] [address] Performing Lab: [facility] [address] [place] [facility] URINALYS IS EPITHELIAL CELLS.SQUA MOUS [#/AREA] IN URINE SEDIMENT BY MICROSCOPY HIGH POWER FIELD NONE SEEN 07/16 Specimen Type: URINE No comment entered. Ordering Provider: TERRENCE CHAUHAN Report Released Date/Time: Jul 17, 2023 04:23 PM Reporting Lab: [facility] [address] Performing Lab: [facility] [address] [place] [facility] URINALYS IS HEMOGLOBIN [PRESENCE] IN URINE BY TEST STRIP NEGATIVE 07/16 Specimen Type: URINE No comment entered. Ordering Provider: TERRENCE CHAUHAN Report Released Date/Time: Jul 17, 2023 04:23 PM Reporting Lab: [facility] [address] Performing Lab: [facility] [address] [place] [facility] URINALYS IS NITRITE [PRESENCE] IN URINE BY TEST STRIP NEGATIVE 07/16 Specimen Type: URINE No comment entered. Ordering Provider: TERRENCE CHAUHAN Report Released Date/Time: Jul 17, 2023 04:23 PM Reporting Lab: [facility] [address] Performing Lab: [facility] [address] [place] [facility] URINALYS IS LEUKOCYTE ESTERASE [PRESENCE] IN URINE BY TEST STRIP NEGATIVE 07/16 Specimen Type: URINE No comment entered. Ordering Provider: TERRENCE CHAUHAN Report Released Date/Time: Jul 17, 2023 04:23 PM Reporting Lab: [facility] [address] Performing Lab: [facility] [address] [place] [facility] HEMOGLOB IN A1C HEMOGLOBIN A1C/HEMOGL [...] 02:21 PM Reporting Lab: [facility] [address] Performing Lab: [facility] [address] [place] [facility] BASIC METABOLI C PANEL+MG CREATININE [MASS/VOLU ME] IN SERUM OR PLASMA 1.3 0.7 - 1.2 07/16 H Specimen Type: PLASMA No comment entered. Ordering Provider: TERRENCE CHAUHAN Report Released Date/Time: August 07, 2022 02:21 PM Reporting Lab: [facility] [address] Performing Lab: [facility] [address] [place] [facility] BASIC METABOLI C PANEL+MG UREA NITROGEN [MASS/VOLU ME] IN SERUM OR PLASMA 15 8 - 26 07/16 Specimen Type: PLASMA No comment entered. Ordering Provider: TERRENCE CHAUHAN Report Released Date/Time: August 07, 2022 02:21 PM Reporting Lab: [facility] [address] Performing Lab: [facility] [address] [place] [facility] BASIC METABOLI C PANEL+MG GLUCOSE [MASS/VOLU ME] IN SERUM OR PLASMA 84 70 - 100 07/16 Specimen Type: PLASMA No comment entered. Ordering Provider: TERRENCE CHAUHAN Report Released Date/Time: August 07, 2022 02:21 PM Reporting Lab: [facility] [address] Performing Lab: [facility] [address] [place] [facility] BASIC METABOLI C PANEL+MG SODIUM [MOLES/VOL UME] IN SERUM OR PLASMA 137 136 - 145 07/16 Specimen Type: PLASMA No comment entered. Ordering Provider: TERRENCE CHAUHAN Report Released Date/Time: August 07, 2022 02:21 PM Reporting Lab: [facility] [address] Performing Lab: [facility] [address] [place] [facility] BASIC METABOLI C PANEL+MG POTASSIUM [MOLES/VOL UME] IN SERUM OR PLASMA 4.6 3.5 - 5.1 07/16 Specimen Type: PLASMA No comment entered. Ordering Provider: TERRENCE CHAUHAN Report Released Date/Time: August 07, 2022 02:21 PM Reporting Lab: [facility] [address] Performing Lab: [facility] [address] [place] [facility] BASIC METABOLI C PANEL+MG CHLORIDE [MOLES/VOL UME] IN SERUM OR PLASMA 105 98 - 107 07/16 Specimen Type: PLASMA No comment entered. Ordering Provider: TERRENCE CHAUHAN Report Released Date/Time: August 07, 2022 02:21 PM Reporting Lab: [facility] [address] Performing Lab: [facility] [address] [place] [facility] BASIC METABOLI C PANEL+MG CARBON DIOXIDE, TOTAL [MOLES/VOL UME] IN SERUM OR PLASMA 24 22 - 29 07/16 Specimen Type: PLASMA No comment entered. Ordering Provider: TERRENCE CHAUHAN Report Released Date/Time: August 07, 2022 02:21 PM Reporting Lab: [facility] [address] Performing Lab: [facility] [address] [place] [facility] BASIC METABOLI C PANEL+MG CALCIUM [MASS/VOLU ME] IN SERUM OR PLASMA 8.9 8.4 - 10.2 07/16 Specimen Type: PLASMA No comment entered. Ordering Provider: TERRENCE CHAUHAN Report Released Date/Time: August 07, 2022 02:21 PM Reporting Lab: [facility] [address] Performing Lab: [facility] [address] [place] [facility] BASIC METABOLI C PANEL+MG MAGNESIUM [MASS/VOLU ME] IN SERUM OR PLASMA 2.1 1.6 - 2.6 07/16 Specimen Type: PLASMA No comment entered. Ordering Provider: TERRENCE CHAUHAN Report Released Date/Time: August 07, 2022 02:21 PM Reporting Lab: [facility] [address] Performing Lab: [facility] [address] [place] [facility] BASIC METABOLI C PANEL+MG ANION GAP IN SERUM OR PLASMA 8 5 - 15 07/16 Specimen Type: PLASMA No comment entered. Ordering Provider: TERRENCE CHAUHAN Report Released Date/Time: August 07, 2022 02:21 PM Reporting Lab: [facility] [address] Performing Lab: [facility] [address] [place] [facility] BASIC METABOLI C PANEL+MG GLOMERULAR FILTRATION RATE/1.73 SQ M.PREDICTE D [VOLUME RATE/AREA] IN SERUM, PLASMA OR BLOOD BY CREATININE -BASED FORMULA (CKD-EPI 2020) 56 60 07/16 L Specimen Type: PLASMA No comment entered. Ordering Provider: TERRENCE CHAUHAN Report Released Date/Time: August 07, 2022 02:21 PM Reporting Lab: [facility] [address] Performing Lab: [facility] [address] [place] [facility] LIVER FUNCTION TESTS BILIRUBIN. TOTAL [MASS/VOLU ME] IN SERUM OR PLASMA 0.8 0.2 - 1.2 07/16 Specimen Type: PLASMA No comment entered. Ordering Provider: TERRENCE CHAUHAN Report Released Date/Time: August 07, 2022 02:21 PM Reporting Lab: [facility] [address] Performing Lab: [facility] [address] [place] [facility] LIVER FUNCTION TESTS ALKALINE PHOSPHATAS E [ENZYMATIC ACTIVITY/V OLUME] IN SERUM OR PLASMA 52 40 - 150 07/16 Specimen Type: PLASMA No comment entered. Ordering Provider: TERRENCE CHAUHAN Report Released Date/Time: August 07, 2022 02:21 PM Reporting Lab: [facility] [address] Performing Lab: [facility] [address] [place] [facility] LIVER FUNCTION TESTS ALANINE AMINOTRANS FERASE [ENZYMATIC ACTIVITY/V OLUME] IN SERUM OR PLASMA 20 <55 - 55 07/16 Specimen Type: PLASMA No comment entered. Ordering Provider: TERRENCE CHAUHAN Report Released Date/Time: August 07, 2022 02:21 PM Reporting Lab: [facility] [address] Performing Lab: [facility] [address] [place] [facility] LIVER FUNCTION TESTS ASPARTATE AMINOTRANS FERASE [ENZYMATIC ACTIVITY/V OLUME] IN SERUM OR PLASMA 19 <34 - 34 07/16 Specimen Type: PLASMA No comment entered. Ordering Provider: TERRENCE CHAUHAN Report Released Date/Time: August 07, 2022 02:21 PM Reporting Lab: [facility] [address] Performing Lab: [facility] [address] [place] [facility] LIVER FUNCTION TESTS GAMMA GLUTAMYL TRANSFERAS E [ENZYMATIC ACTIVITY/V OLUME] IN SERUM OR PLASMA 38 <64 - 64 07/16 Specimen Type: PLASMA No comment entered. Ordering Provider: TERRENCE CHAUHAN Report Released Date/Time: August 07, 2022 02:21 PM Reporting Lab: [facility] [address] Performing Lab: [facility] [address] [place] [facility] CBC LEUKOCYTES [#/VOLUME] IN BLOOD BY AUTOMATED COUNT 8.72 4.0 - 11.0 07/16 Specimen Type: BLOOD No comment entered. Ordering Provider: TERRENCE CHAUHAN Report Released Date/Time: August 07, 2022 02:21 PM Reporting Lab: [facility] [address] Performing Lab: [facility] [address] [place] [facility] CBC ERYTHROCYT ES [#/VOLUME] IN BLOOD BY AUTOMATED COUNT 4.11 4.6 - 6.2 07/16 L Specimen Type: BLOOD No comment entered. Ordering Provider: TERRENCE CHAUHAN Report Released Date/Time: August 07, 2022 02:21 PM Reporting Lab: [facility] [id number] Performing Lab: [facility] [address] [place] [facility] CBC HEMOGLOBIN [MASS/VOLU ME] IN BLOOD 13.4 13.5 - 17.9 07/16 L Specimen Type: BLOOD No comment entered. Ordering Provider: TERRENCE CHAUHAN Report Released Date/Time: August 07, 2022 02:21 PM Reporting Lab: [facility] [id number] Performing Lab: [facility] [address] [place] [facility] CBC HEMATOCRIT [VOLUME FRACTION] OF BLOOD BY AUTOMATED COUNT 39.7 41 - 54 07/16 L Specimen Type: BLOOD No comment entered. Ordering Provider: TERRENCE CHAUHAN Report Released Date/Time: August 07, 2022 02:21 PM Reporting Lab: [facility] [address] Performing Lab: [facility] [id number] [place] [facility] CBC MCV [ENTITIC VOLUME] BY AUTOMATED COUNT 96.6 80 - 100 07/16 Specimen Type: BLOOD No comment entered. Ordering Provider: TERRENCE CHAUHAN Report Released Date/Time: August 07, 2022 02:21 PM Reporting Lab: [facility] [address] Performing Lab: [facility] [address] [place] [facility] CBC MCH [ENTITIC MASS] BY AUTOMATED COUNT 32.6 27 - 33 07/16 Specimen Type: BLOOD No comment entered. Ordering Provider: TERRENCE CHAUHAN Report Released Date/Time: August 07, 2022 02:21 PM Reporting Lab: [facility] [address] Performing Lab: [facility] [address] [place] [facility] CBC MCHC [MASS/VOLU ME] BY AUTOMATED COUNT 33.8 32.0 - 37.5 07/16 Specimen Type: BLOOD No comment entered. Ordering Provider: TERRENCE CHAUHAN Report Released Date/Time: August 07, 2022 02:21 PM Reporting Lab: [facility] [address] Performing Lab: [facility] [address] [place] [facility] CBC PLATELETS [#/VOLUME] IN BLOOD BY AUTOMATED COUNT 159 150 - 400 07/16 Specimen Type: BLOOD No comment entered. Ordering Provider: TERRENCE CHAUHAN Report Released Date/Time: August 07, 2022 02:21 PM Reporting Lab: [facility] [address] Performing Lab: [facility] [address] [place] [facility] CBC PLATELET MEAN VOLUME [ENTITIC VOLUME] IN BLOOD BY AUTOMATED COUNT 9.6 7.4 - 10.4 07/16 Specimen Type: BLOOD No comment entered. Ordering Provider: TERRENCE CHAUHAN Report Released Date/Time: August 07, 2022 02:21 PM Reporting Lab: [facility] [address] Performing Lab: [facility] [address] [place] [facility] CBC ERYTHROCYT E DISTRIBUTI ON WIDTH [RATIO] BY AUTOMATED COUNT 14.1 11.5 - 14.5 07/16 Specimen Type: BLOOD No comment entered. Ordering Provider: TERRENCE CHAUHAN Report Released Date/Time: August 07, 2022 02:21 PM Reporting Lab: [facility] [address] Performing Lab: [facility] [address] [place] [facility] PSA PROSTATE SPECIFIC AG [MASS/VOLU ME] IN SERUM OR PLASMA 3.84 <4.00 - 4.00 07/16 Specimen Type: SERUM No comment entered. Ordering Provider: TERRENCE CHAUHAN Report Released Date/Time: August 07, 2022 02:21 PM Reporting Lab: [facility] [address] Performing Lab: [facility] [address] [place] [facility] CREATINI NE(INCLU SATHYA EGFR) CREATININE [MASS/VOLU ME] IN SERUM OR PLASMA 1.2 0.7 - 1.2 04/16 Specimen Type: PLASMA No comment entered. Ordering Provider: HUYEN HYLTON Report Released Date/Time: Mar 07, 2023 02:00 PM Reporting Lab: [facility] [address] Performing Lab: [facility] [address] [place] [facility] CREATINI NE(INCLU SATHYA EGFR) GLOMERULAR FILTRATION RATE/1.73 SQ M.PREDICTE D [VOLUME RATE/AREA] IN SERUM, PLASMA OR BLOOD BY CREATININE -BASED FORMULA (CKD-EPI 2020) 62 60 04/16 Specimen Type: PLASMA No comment entered. Ordering Provider: HUYEN HYLTON Report Released Date/Time: Mar 07, 2023 02:00 PM Reporting Lab: [facility] [address] Performing Lab: [facility] [address] [place] [facility] AST/SGOT ASPARTATE AMINOTRANS FERASE [ENZYMATIC ACTIVITY/V OLUME] IN SERUM OR PLASMA 22 <34 - 34 04/16 Specimen Type: PLASMA No comment entered. Ordering Provider: HUYEN HYLTON Report Released Date/Time: Mar 07, 2023 02:00 PM Reporting Lab: [facility] [address] Performing Lab: [facility] [address] [place] [facility] CBC LEUKOCYTES [#/VOLUME] IN BLOOD BY AUTOMATED COUNT 8.06 4.0 - 11.0 04/16 Specimen Type: BLOOD No comment entered. Ordering Provider: HUYEN HYLTON S Report Released Date/Time: Mar 07, 2023 02:00 PM Reporting Lab: [facility] [address] Performing Lab: [facility] [address] [place] [facility] CBC ERYTHROCYT ES [#/VOLUME] IN BLOOD BY AUTOMATED COUNT 4.03 4.6 - 6.2 04/16 L Specimen Type: BLOOD No comment entered. Ordering Provider: HUYEN HYLTON S Report Released Date/Time: Mar 07, 2023 02:00 PM Reporting Lab: [facility] [address] Performing Lab: [place] [phone] [place] [facility] CBC HEMOGLOBIN [MASS/VOLU ME] IN BLOOD 13.1 13.5 - 17.9 04/16 L Specimen Type: BLOOD No comment entered. Ordering Provider: HUYEN HYLTON S Report Released Date/Time: Mar 07, 2023 02:00 PM Reporting Lab: [facility] [address] Performing Lab: [address] [place] [facility] CBC HEMATOCRIT [VOLUME FRACTION] OF BLOOD BY AUTOMATED COUNT 38.9 41 - 54 04/16 L Specimen Type: BLOOD No comment entered. Ordering Provider: HUYEN HYLTON S Report Released Date/Time: Mar 07, 2023 02:00 PM Reporting Lab: [facility] [address] Performing Lab: [facility] [address] [place] [facility] CBC MCV [ENTITIC VOLUME] BY AUTOMATED COUNT 96.5 80 - 100 04/16 Specimen Type: BLOOD No comment entered. Ordering Provider: HUYEN HYLTON S Report Released Date/Time: Mar 07, 2023 02:00 PM Reporting Lab: [facility] [address] Performing Lab: [facility] [address] [place] [facility] CBC MCH [ENTITIC MASS] BY AUTOMATED COUNT 32.5 27 - 33 04/16 Specimen Type: BLOOD No comment entered. Ordering Provider: HUYEN HYLTON S Report Released Date/Time: Mar 07, 2023 02:00 PM Reporting Lab: [facility] [address] Performing Lab: [facility] [address] [place] [facility] CBC MCHC [MASS/VOLU ME] BY AUTOMATED COUNT 33.7 32.0 - 37.5 04/16 Specimen Type: BLOOD No comment entered. Ordering Provider: HUYEN HYLTON Report Released Date/Time: Mar 07, 2023 02:00 PM Reporting Lab: [facility] [address] Performing Lab: [facility] [address] [place] [facility] CBC PLATELETS [#/VOLUME] IN BLOOD BY AUTOMATED COUNT 157 150 - 400 04/16 Specimen Type: BLOOD No comment entered. Ordering Provider: HUYEN HYLTON S Report Released Date/Time: Mar 07, 2023 02:00 PM Reporting Lab: [facility] [address] Performing Lab: [facility] [address] [place] [facility] CBC PLATELET MEAN VOLUME [ENTITIC VOLUME] IN BLOOD BY AUTOMATED COUNT 9.7 7.4 - 10.4 04/16 Specimen Type: BLOOD No comment entered. Ordering Provider: HUYEN HYLTON Report Released Date/Time: Mar 07, 2023 02:00 PM Reporting Lab: [facility] [address] Performing Lab: [facility] [address] [facility] CBC ERYTHROCYT E DISTRIBUTI ON WIDTH [RATIO] BY AUTOMATED COUNT 14.5 11.5 - 14.5 04/16 Specimen Type: BLOOD No comment entered. Ordering Provider: HUYEN HYLTON Report Released Date/Time: Mar 07, 2023 02:00 PM Reporting Lab: [facility] [address] Performing Lab: [facility] [address] [place] [facility] ALT/SGPT ALANINE AMINOTRANS FERASE [ENZYMATIC ACTIVITY/V OLUME] IN SERUM OR PLASMA 19 <55 - 55 04/16 Specimen Type: PLASMA No comment entered. Ordering Provider: HUYEN HYLTON Report Released Date/Time: Mar 07, 2023 02:00 PM Reporting Lab: [facility] [address] Performing Lab: [facility] [address] [facility] IS [facility] Vital Signs Combined list of inpatient and outpatient Vital Signs from Department of Defense and Veterans Affairs, ranging from 12 months to all on record, depending upon the facility. Vital Sign Value Date Comments Source Encounters Combined list of: 1) Encounters from Department of [facility] facilities going back up to thelast 18 months. 2) Encounters from the Department of Defense facilities going back up to 280 months. Location Location Details Encounter Type Encounter Number Reason For Visit Attending Provider ADM Date DC Date Status Disposition Source [place] [facility] Outpatient Encounter [id number] 04/24 [facility] EMERGENCY DEPT VISIT SF MDM [id number] Diagnos is: ICD-10- CM Z76.0 Encount er for issue of repeat prescri ption<b r/> AICHA GALLEGOS 05/09 [facility] Outpatient Encounter [id number] 05/09 [facility] Outpatient Encounter [id number] 06/12 [facility] [place] [facility] Outpatient Encounter [id number] 07/15 [facility] [place] [facility] OFFICE O/P EST MOD 30-39 MIN [id number] Diagnos is: ICD-10- CM Z00.01 Encount er for general adult medical exam w abnorma l finding s
DANETTE LIN LY E 08/07 [facility] [place] [facility] Outpatient Encounter [id number] 08/07 [facility] [place] [facility] Outpatient Encounter [id number] OLESYA ROGERS 08/12 [facility] [place] [facility] Outpatient Encounter [id number] OLESYA ROGERS 08/12 [facility] [place] [facility] Outpatient Encounter [id number] Ana CHAUHAN 09/12 [place] [facility] [place] [facility] Outpatient Encounter [id number] 11/06 [place] [facility] [place] [facility] Outpatient Encounter [id number] 12/08 [place] [facility] [place] [facility] Outpatient Encounter [id number] 12/12 [place] [facility] [place] [facility] Outpatient Encounter [id number] 01/17 [place] [facility] [place] [facility] Outpatient Encounter [id number] 02/19 [place] [facility] [place] [facility] Outpatient Encounter [id number] 02/24 [place] [facility] [place] [facility] Outpatient Encounter [id number] 03/07 [place] [facility] [place] [facility] QNHP OL DIG ASSMT&MGMT 5-10 [id number] Diagnos is: ICD-10- 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
ELLEN GARCIA 05/29 [facility] [place] [facility] OFFICE O/P EST MOD 30 MIN [id number] Diagnos is: ICD-10- CM Z00.01 Encount er for general adult medical exam w abnorma l finding s
Ana CHAUHAN 07/16 [facility] [place] [facility] Outpatient Encounter [id number] 07/17 [facility] Social History Combined list of available smoking, tobacco, and other social history from Department of Defense and Veterans Affairs facilities. Social History Type Response Date Comment Sour e Tobacco smoking status MAIS MS-TOBACCO FORMER USER 07/17/2023 [facility] History of tobacco use MS-TOBACCO QUIT 1 TO < 5 YRS 07/17/2023 [facility] History of tobacco use VA-TOBACCO FORMER USER 08/07/2022 [facility] History of tobacco use VA-TOBACCO FORMER USER 10/16/2020 [facility] History of tobacco use VA-TOBACCO USE CO UNSEL NO 03/29/2019 [facility] History of tobacco use VA-TOBACCO USE WI 30 MIN OF WAKEUP 02/17/2018 [facility] History of tobacco use CURRENT TOBACCO USER 02/12/2017 [facility] History of tobacco use CURRENT TOBACCO USER 04/25/2015 [facility] History of tobacco use CURRENT TOBACCO USER 04/21/2014 [facility] History of tobacco use CURRENT TOBACCO USER 04/20/2013 [facility] History of tobacco use CURRENT TOBACCO USER 03/20/2012 [facility] History of tobacco use CURRENT TOBACCO USER 02/06/2011 [facility] History of tobacco use CURRENT TOBACCO USER 01/02/2010 [facility]
--- OUTSIDE RECORDS SUMMARY | 2023-08-29 11:01 | XMS_ITS | Data Portability ---
Author Organization [place] - [facility], [employer] Address [address] [place] [address] Assessment Encounter Date Assessment Date Assessment LastModified [...] user Active 2015 Tobacco user; Original Code: 671390952 Origi nal Codesystem: SNOMED CT Classificati on: Medical Confirm ation Status: Probable Not Available [facility] 09:10:17 Onychomycosis of toenails Active 2015 Onychomycosis of toenails; Original Code: 9789772962 Orig inal Codesystem: SNOMED CT Classificati on: Medical Confirm ation Status: Confirmed Not Available [facility] 3 09:10:17 Heart disease Active 2021 Heart disease; Original Code: 86683197 Origin al Codesystem: SNOMED CT Classificati on: Medical Confirm ation Status: Confirmed Not Available [facility] 3 09:10:17 Corns and callus Active 2015 Corns and callus; Original Code: 275090587 Origi nal Codesystem: SNOMED CT Classificati on: Medical Confirm ation Status: Confirmed Not Available [facility] 3 09:10:17 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; Original Code: 4412773534 Orig inal Codesystem: SNOMED CT Classificati on: Medical Confirm ation Status: Confirmed Not Available [facility] 3 09:10:17 Foot pain Active 2015 Foot pain; Original Code: 963591447 Origi nal Codesystem: SNOMED CT Classificati on: Medical Confirm ation Status: Confirmed Not Available [facility] 3 09:10:17 Acquired hallux valgus Active 2015 Acquired hallux valgus; Original Code: 086028051 Origi nal Codesystem: SNOMED CT Classificati on: Medical Confirm ation Status: Confirmed Not Available [facility] 3 09:10:17 Acquired hallux malleus Active 2015 Acquired hallux malleus; Original Code: 21716455 Origin al Codesystem: SNOMED CT Classificati on: Medical Confirm ation Status: Confirmed Not Available [facility] 3 09:10:17 Atrial fibrillation Active 2015 Atrial fibrillation; Original Code: 15141927 Origin al Codesystem: SNOMED CT Classificati on: Medical Confirm ation Status: Confirmed Not Available [facility] 3 09:10:17 Hypertensive disorder Active 2015 Hypertensive disorder; Original Code: 8631267267 Orig inal Codesystem: SNOMED CT Classificati on: Medical Confirm ation Status: Confirmed Not Available [facility] 3 09:10:17 Notes:H/O: anticoagulant the rapy Original Code: 458272420 Original Codesystem: SNOMED CT Classification: Medical Confirmation Status: Confirmed Problem Notes None recorded. Procedures Surgical History Date Name Laterality Status Provider Name and Address Organization Details Recorded Time 10/24/[address] Hong Andres DPM [address] [place] [address], [phone], [facility] 10/23/2022 11:44:57 07/25/[address] Pitts completed Too Andres DPM [address] [place] [address], [phone], [facility] 07/24/2022 10:35:10 04/24/[address] Hong Andres DPM [address] [place] [address], [phone], [facility] 04/24/2022 11:13:18 [...] Updated DateTime 04/24/2022 190.5 cm 25 kg/m2 05996.47 g Mamta Corbett [facility] 04/24/2022 10:32:58 Social History None recorded. Functional Status None recorded. Mental Status None recorded. Family History Nothing Reported. Medical History No medical history recorded. Past Encounters Encounter ID Performer Location Encounter Start Date Encounter Closed Date Diagnosis/Indication Diagnosis SNOMED-CT Code [id number] Too Andres DPM [facility] [address] [place] [address] 04/24/2022 10:31:04 04/24/2022 13:46:36 Onychomycosis 915915394 Peripheral vascular disease [id number] [id number] Too Andres DPM [facility] [address] [place] [id number] 07/24/2022 10:14:25 07/25/2022 09:45:42 Onychomycosis 504867642 Peripheral vascular disease [id number] 7314 Too Andres DPM [facility] [address] [place] [address] 10/23/2022 10:13:43 10/24/2022 09:44:58 Onychomycosis 324619754 Peripheral vascular disease 834969819 Health Concerns Section Related Observation LastModified by Organization Detai ls LastModified Time None Recorded Concern Status LastModified by Organization Details LastModified Time None Recorded Advance Directives Directive None Recorded Payers Encounter Date Sequence Insurance Name Policy Number Policy Kevin Covered Member ID Kevin Member ID Guarantor Name 10/23/2022 1 [place] [id number] Bola Zurita [id number] Bola Zurita 07/24/2022 1 [place] [id number] Bola Zurita [id number] Bola Zurita 04/24/2022 1 [place] [id number] Bola J Parminder [id number] Bola Zurita Notes Date Note Type Note Provider Name and Address Organization Details Recorded Time 04/24/2022 text/html HPI Notes: Pawel salmeron is a 77 year old male established patient who presents with the chief complaint. Presents today for evaluation of problematic toenails and feet in general. They relate chronic thickening and deformity to their toenails that has not responded to self-trimming, topical clqi-log-owisppu anti-fungal therapy, foot soaks, and other similar conservative treatments. Nails are painful with catching on shoegear and socks. Denies any recent foot injury or infection. Claudication symptoms: No Burning symptoms: No Paresthesia: Subjective numbness to the left lower extremity consistent with his previous surgical procedures performed through [facility] surgery in [facility] Patient presents for further evaluation and treatment options. Too Andres DPM [address] [place], [address], [facility] 04/24/2022 11:14:44 07/24/2022 text/html HPI Notes: Pawel salmeron is a 77 year old male established patient who presents with the chief complaint. Presents today for evaluation of problematic toenails and feet in general. They relate chronic thickening and deformity to their toenails that has not responded to self-trimming, topical vcja-mnf-pzotffk anti-fungal therapy, foot soaks, and other similar conservative treatments. Nails are painful with catching on shoegear and socks. Denies any recent foot injury or infection. Claudication symptoms: No Burning symptoms: No Paresthesia: Subjective numbness to the left lower extremity consistent with his previous surgical procedures performed through Vascular surgery in [facility] Patient presents for further evaluation and treatment options. Too Andres DPM [address] [place], [address], [facility] 07/24/2022 10:35:54 10/23/2022 text/html HPI Notes: Pawel salmeron is a 77 year old male established patient who presents with the chief complaint. Presents today for evaluation of problematic toenails and feet in general. They relate chronic thickening and deformity to their toenails that has not responded to self-trimming, topical rkbs-qrr-qhptnku anti-fungal therapy, foot soaks, and other similar conservative treatments. Nails are painful with catching on shoegear and socks. Denies any recent foot injury or infection. Claudication symptoms: No Burning symptoms: No Paresthesia: Subjective numbness to the left lower extremity consistent with his previous surgical procedures performed through Vascular surgery in [facility] Patient presents for further evaluation and treatment options. Too Andres DPM [address] [place], [address], [facility] 10/23/2022 11:45:19
--- OUTSIDE RECORDS SUMMARY | 2023-08-29 11:01 | XMS_ITS | Clinical Summary ---
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 LLE angiogram 2. ETHANOL QUALITY LEADER of [place] peroneal Panlobular emphysema 10/21/2018 COPD exacerbation 09/09/2018 [...] Lab Requisition [facility] [phone] Unknown, Doctor 08/04/2023 8:35 AM CDT Office Visit [facility] [address] [place] [address] Jena Pascual PA Follow Up (Boil) 08/04/2023 Travel 08/01/2023 8:35 AM CDT Office Visit [facility] [address] [place] [address] Jena Pascual PA Derm Problem 08/01/2023 Travel from Last 3 Months Immunizations Name Administration Dates Next Due AMB INFLUENZA IIV3 (AGE 65+ YRS) PF (Flu Clinic Only) 02/24/2019 COVID-19 vaccine (Pfizer-Bio NTech 30mcg/0.3mL) 12YO+ JAMES-SUCROSE PF, MDV 08/24/2021 COVID-19 vaccine (Profilepasser-Bio NTech 30mcg/0.3mL) PF, MDV 06/17/2020,05/27/2020 Influenza Virus, [...] T Respiratory Rate 18 03/17/2023 3:35 PM DIETITIAN ASSISTANT Oxygen Saturation 96% 08/04/2023 8:35 AM CDT Inhaled Oxygen Concentration - - Weight 90.7 kg (200 lb) 08/04/2023 8:35 AM CDT Height 190.5 cm (6' 3) 03/17/2023 2:07 PM DIETITIAN ASSISTANT Body Mass Index 25 03/17/2023 2:07 PM DIETITIAN ASSISTANT Plan of Treatment Health Maintenance Due Date [...] back ANTI HCV Routine 05/16/2021 3:20 PM DIETITIAN ASSISTANT Need for hepatitis C screening test CT CHEST WO Routine 08/29/2010 4:53 PM CDT Pulmonary nodules from Last 3 Months or Most Recently Relevant to Health Maintenance Results * LAB TRACKING EVENT (08/05/2023 2:01 PM CDT) Other (Other) Client Collect / Unknown 08/05/2023 2:01 PM CDT 08/05/2023 9:37 PM CDT Doctor Unknown LAB BILL ONLY [facility] [address] [place] [address], * PATH TISSUE EXAM (08/05/2023 2:01 PM CDT) Case Report Pathology Report ?Case: [id number] ? Authorizing Provider: ??Unknown, Doctor ?Collected: ? 08/05/2023 1401 ? Ordering Location: ? [facility] ?Received: ?08/06/2023 1013 ? Pathologist: ? Jose Rinaldi MD ? Specimen: ?Back ? 08/07/2023 4:47 PM CDT [facility] Final Diagnosis A) SKIN, BACK, CYST, EXCISION: 1. Epidermoid cyst 2. Negative for dysplasia or malignancy 08/07/2023 4:47 PM CDT [facility] Clinical Information back cyst 08/07/2023 4:47 PM CDT [facility] Gross Description A) Received in formalin, labeled with the patient's name and date of , is a 1.5 x 1.1 x 0.3 cm aggregate of pale-garcia cyst wall fragments admixed with garcia-white soft, friable cyst contents. ??The specimen is filtered and submitted entirely in 1 cassette. LMG 08/06/2023 08/07/2023 4:47 PM CDT [facility] Microscopic Description The final diagnosis is based on microscopic examination of appropriate sections of all specimens. 08/07/2023 4:47 PM CDT [facility] Additional Information Interpreted at [facility] - [address], [place] [address] 08/07/2023 4:47 PM CDT [facility] Other (Back) 08/05/2023 2:01 PM CDT 08/06/2023 10:13 AM CDT Doctor Unknown PATHOLOGY/CYTOLOGY [facility] [address] [place] [address], * AEROBIC BACTERIAL CULTURE, STAIN (08/01/2023 9:30 AM CDT) CULTURE No Growth. 08/03/2023 3:00 PM CDT [facility] GRAM STAIN 4+ RBCs 08/03/2023 3:00 PM CDT [facility] GRAM STAIN 1+ PMNs 08/03/2023 3:00 PM CDT [facility] GRAM STAIN No Epithelial cells 08/03/2023 3:00 PM CDT [facility] GRAM STAIN 4+ Gram Positive Cocci 08/03/2023 3:00 PM CDT [facility] GRAM STAIN 3+ Gram Negative Bacilli 08/03/2023 3:00 PM CDT [facility] Other (Other) Non-Blood / Unknown 08/01/2023 9:30 AM CDT 08/01/2023 9:31 AM CDT Jena RICHARDSON [facility] [address] [place] [address], * ANTI HCV (05/16/2021 3:20 PM DIETITIAN ASSISTANT) HEPATITIS C ANTIBODY Non-React edelmira Non-React edelmira 05/17/2021 1:21 AM DIETITIAN ASSISTANT [facility] Comment:Antibodies to HCV no t detected; does not exclude the possibility of exposure to HCV. Blood BLOOD SPECIMEN / Unknown Venipuncture / Unknown 05/16/2021 3:20 PM DIETITIAN ASSISTANT 05/16/2021 3:25 PM DIETITIAN ASSISTANT Zak Garcia MD [facility] [address] [place] [address], * CT CHEST WO CONTRAST (08/29/2010 4:53 [...] Comments Code Status Discussion: Discussed Care Teams Dessert Cup Machine Feeder Relationship Specialty Start Date End Date Klever Monte MD [address] [place] [address] PCP - General Family Practice 06/12/22
== END 2023-08-29 10:59 | disposition home or self-care (01) ==
LOC: WOUND 10:58
PROVIDERS: PCP Family Medicine; Visit Provider Nurse Practitioner Family
DX: L02.212 Cutaneous abscess of back [any part, except buttock and flank] (principal); L72.0 Epidermal cyst
CPT/HCPCS: G0463

== ENCOUNTER 2023-09-02 15:30 | Outpatient (CLI) | payer MEDICARE, BC, SELFPAY ==
--- OUTSIDE RECORDS SUMMARY | 2023-09-02 15:32 | XMS_ITS | Data Portability ---
Author Organization [place] [facility], [employer] Address [address] [facility] [address] [place] [address] Assessment Encounter Date Assessment Date Assessment LastModified [...] user Active 2015 Tobacco user; Original Code: 907962780 Origi nal Codesystem: SNOMED CT Classificati on: Medical Confirm ation Status: Probable Not Available [facility] 09:10:17 Onychomycosis of toenails Active 2015 Onychomycosis of toenails; Original Code: 0166555791 Orig inal Codesystem: SNOMED CT Classificati on: Medical Confirm ation Status: Confirmed Not Available [facility] 3 09:10:17 Heart disease Active 2021 Heart disease; Original Code: 58944284 Origin al Codesystem: SNOMED CT Classificati on: Medical Confirm ation Status: Confirmed Not Available [facility] 3 09:10:17 Corns and callus Active 2015 Corns and callus; Original Code: 674163937 Origi nal Codesystem: SNOMED CT Classificati on: Medical Confirm ation Status: Confirmed Not Available [facility] 3 09:10:17 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; Original Code: 9475782595 Orig inal Codesystem: SNOMED CT Classificati on: Medical Confirm ation Status: Confirmed Not Available [facility] 3 09:10:17 Foot pain Active 2015 Foot pain; Original Code: 606159253 Origi nal Codesystem: SNOMED CT Classificati on: Medical Confirm ation Status: Confirmed Not Available [facility] 3 09:10:17 Acquired hallux valgus Active 2015 Acquired hallux valgus; Original Code: 591211570 Origi nal Codesystem: SNOMED CT Classificati on: Medical Confirm ation Status: Confirmed Not Available [facility] 3 09:10:17 Acquired hallux malleus Active 2015 Acquired hallux malleus; Original Code: 48503618 Origin al Codesystem: SNOMED CT Classificati on: Medical Confirm ation Status: Confirmed Not Available [facility] 3 09:10:17 Atrial fibrillation Active 2015 Atrial fibrillation; Original Code: 73940626 Origin al Codesystem: SNOMED CT Classificati on: Medical Confirm ation Status: Confirmed Not Available [facility] 3 09:10:17 Hypertensive disorder Active 2015 Hypertensive disorder; Original Code: 3115548150 Orig inal Codesystem: SNOMED CT Classificati on: Medical Confirm ation Status: Confirmed Not Available [facility] 3 09:10:17 Notes:H/O: anticoagulant the rapy Original Code: 257633563 Original Codesystem: SNOMED CT Classification: Medical Confirmation Status: Confirmed Problem Notes None recorded. Procedures Surgical History Date Name Laterality Status Provider Name and Address Organization Details Recorded Time 10/24/[address] Hong Andres DPM [address] [place] [address], [phone], [facility] 10/23/2022 11:44:57 07/25/[address] Pitts completed Too Andres DPM [address] [place] [address], [phone], [facility] 07/24/2022 10:35:10 04/24/[address] Hong Andres DPM [address] [place] [address], [phone], [facility] 04/24/2022 [...] Updated DateTime 04/24/2022 190.5 cm 25 kg/m2 48913.47 g Mamta Corbett [facility] 04/24/2022 10:32:58 Social History None recorded. Functional Status None recorded. Mental Status None recorded. Family History Nothing Reported. Medical History No medical history recorded. Past Encounters Encounter ID Performer Location Encounter Start Date Encounter Closed Date Diagnosis/Indication Diagnosis SNOMED-CT Code [id number] Too Andres DPM [facility] [address] [place] [phone] 04/24/2022 10:31:04 04/24/2022 13:46:36 Onychomycosis 226197982 Peripheral vascular disease [id number] Too Andres DPM [facility] [address] [place] [phone] 07/24/2022 10:14:25 07/25/2022 09:45:42 Onychomycosis 077413298 Peripheral vascular disease [id number] Too Andres DPM [facility] [address] [place] [address] 10/23/2022 10:13:43 10/24/2022 09:44:58 Onychomycosis 198955251 Peripheral vascular disease [id number] Health Concerns Section Related Observation LastModified by Organization Detai ls LastModified Time None Recorded Concern Status LastModified by Organization Details LastModified Time None Recorded Advance Directives Directive None Recorded Payers Encounter Date Sequence Insurance Name Policy Number Policy Kevin Covered Member ID Kevin Member ID Guarantor Name 10/23/2022 1 [place]IC[place]) [id number] Bola Zurita [id number] Bola Zurita 07/24/2022 1 [place] [id number] Bola Zurita [id number] Bola Zurita 04/24/2022 1 [place]) [id number] Bola J Parminder [id number] Bola Zurita Notes Date Note Type Note Provider Name and Address Organization Details Recorded Time 04/24/2022 text/html HPI Notes: Pawel salmeron is a 77 year old male established patient who presents with the chief complaint. Presents today for evaluation of problematic toenails and feet in general. They relate chronic thickening and deformity to their toenails that has not responded to self-trimming, topical mqtk-pfx-wmsjjyh anti-fungal therapy, foot soaks, and other similar conservative treatments. Nails are painful with catching on shoegear and socks. Denies any recent foot injury or infection. Claudication symptoms: No Burning symptoms: No Paresthesia: Subjective numbness to the left lower extremity consistent with his previous surgical procedures performed through Vascular surgery in the [facility] Patient presents for further evaluation and treatment options. Too Andres DPM [address] [place], [phone], [facility] 04/24/2022 11:14:44 07/24/2022 text/html HPI Notes: Pawel salmeron is a 77 year old male established patient who presents with the chief complaint. Presents today for evaluation of problematic toenails and feet in general. They relate chronic thickening and deformity to their toenails that has not responded to self-trimming, topical qico-hdg-fjqvxss anti-fungal therapy, foot soaks, and other similar conservative treatments. Nails are painful with catching on shoegear and socks. Denies any recent foot injury or infection. Claudication symptoms: No Burning symptoms: No Paresthesia: Subjective numbness to the left lower extremity consistent with his previous surgical procedures performed through Vascular surgery in [facility] Patient presents for further evaluation and treatment options. Too Andres DPM [address] [place], [phone], [facility] 07/24/2022 10:35:54 10/23/2022 text/html HPI Notes: Pawel salmeron is a 77 year old male established patient who presents with the chief complaint. Presents today for evaluation of problematic toenails and feet in general. They relate chronic thickening and deformity to their toenails that has not responded to self-trimming, topical xqmn-unr-jxrajal anti-fungal therapy, foot soaks, and other similar conservative treatments. Nails are painful with catching on shoegear and socks. Denies any recent foot injury or infection. Claudication symptoms: No Burning symptoms: No Paresthesia: Subjective numbness to the left lower extremity consistent with his previous surgical procedures performed through Vascular surgery in [facility] Patient presents for further evaluation and treatment options. Too Andres DPM [address] [place], [phone], [facility] 10/23/2022 11:45:19
--- OUTSIDE RECORDS SUMMARY | 2023-09-02 15:32 | XMS_ITS | Clinical Summary ---
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 LLE angiogram 2. 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 Panlobular emphysema 10/21/2018 COPD exacerbation 09/09/2018 [...] Department Care Team Description 08/05/2023 Lab Requisition [facility] [phone] Unknown, Doctor 08/04/2023 8:35 AM CDT Office Visit [facility] [address] [facility] [place] [address] Jena Pascual PA Follow Up (Boil) 08/04/2023 Travel 08/01/2023 8:35 AM CDT Office Visit [facility] [address] [place] [address] Jena Pascual PA Derm Problem 08/01/2023 Travel from Last 3 Months Immunizations Name Administration Dates Next Due AMB INFLUENZA IIV3 (AGE 65+ YRS) PF (Flu Clinic Only) 02/24/2019 COVID-19 vaccine (Pfizer-Bio NTech 30mcg/0.3mL) 12YO+ JAMES-SUCROSE PF, MDV 08/24/2021 COVID-19 vaccine (amiando-Bio NTech 30mcg/0.3mL) PF, MDV 06/17/2020,05/27/2020 Influenza Virus, [...] T Respiratory Rate 18 03/17/2023 3:35 PM COSMETICS SUPERVISOR Oxygen Saturation 96% 08/04/2023 8:35 AM CDT Inhaled Oxygen Concentration - - Weight 90.7 kg (200 lb) 08/04/2023 8:35 AM CDT Height 190.5 cm (6' 3) 03/17/2023 2:07 PM COSMETICS SUPERVISOR Body Mass Index 25 03/17/2023 2:07 PM COSMETICS SUPERVISOR Plan of Treatment Health Maintenance Due [...] back ANTI HCV Routine 05/16/2021 3:20 PM COSMETICS SUPERVISOR Need for hepatitis C screening test CT CHEST WO Routine 08/29/2010 4:53 PM CDT Pulmonary nodules from Last 3 Months or Most Recently Relevant to Health Maintenance Results * LAB TRACKING EVENT (08/05/2023 2:01 PM CDT) Other (Other) Client Collect / Unknown 08/05/2023 2:01 PM CDT 08/05/2023 9:37 PM CDT Doctor Unknown LAB BILL ONLY [facility] [address] [place] [address], * PATH TISSUE EXAM (08/05/2023 2:01 PM CDT) Case Report Pathology Report ?Case: [id number] ? Authorizing Provider: ??Unknown, Doctor ?Collected: ? 08/05/2023 1401 ? Ordering Location: ? [facility] ?Received: ?08/06/2023 1013 ? Pathologist: ? Jose Rinaldi MD ? Specimen: ?Back ? 08/07/2023 4:47 PM CDT [facility] Final Diagnosis A) SKIN, BACK, CYST, EXCISION: 1. Epidermoid cyst 2. Negative for dysplasia or malignancy 08/07/2023 4:47 PM CDT [facility] Clinical Information back cyst 08/07/2023 4:47 PM CDT [facility] Gross Description A) Received in formalin, labeled with the patient's name and date of , is a 1.5 x 1.1 x 0.3 cm aggregate of pale-garcia cyst wall fragments admixed with garcia-white soft, friable cyst contents. ??The specimen is filtered and submitted entirely in 1 cassette. LMG 08/06/2023 08/07/2023 4:47 PM CDT [facility] Microscopic Description The final diagnosis is based on microscopic examination of appropriate sections of all specimens. 08/07/2023 4:47 PM CDT [facility] Additional Information Interpreted at [facility] - [address], [place] [address] 08/07/2023 4:47 PM CDT [facility] Other (Back) 08/05/2023 2:01 PM CDT 08/06/2023 10:13 AM CDT Doctor Unknown PATHOLOGY/CYTOLOGY [facility] [address] [place] [address], * AEROBIC BACTERIAL CULTURE, STAIN (08/01/2023 9:30 AM CDT) CULTURE No Growth. 08/03/2023 3:00 PM CDT [facility] GRAM STAIN 4+ RBCs 08/03/2023 3:00 PM CDT [facility] GRAM STAIN 1+ PMNs 08/03/2023 3:00 PM CDT [facility] GRAM STAIN No Epithelial cells 08/03/2023 3:00 PM CDT [facility] GRAM STAIN 4+ Gram Positive Cocci 08/03/2023 3:00 PM CDT [facility] GRAM STAIN 3+ Gram Negative Bacilli 08/03/2023 3:00 PM CDT [facility] Other (Other) Non-Blood / Unknown 08/01/2023 9:30 AM CDT 08/01/2023 9:31 AM CDT Jena [facility]DSON [facility] [address] [place] [address], * ANTI HCV (05/16/2021 3:20 PM COSMETICS SUPERVISOR) HEPATITIS C ANTIBODY Non-React edelmira Non-React edelmira 05/17/2021 1:21 AM COSMETICS SUPERVISOR [facility] Comment:Antibodies to HCV no t detected; does not exclude the possibility of exposure to HCV. Blood BLOOD SPECIMEN / Unknown Venipuncture / Unknown 05/16/2021 3:20 PM COSMETICS SUPERVISOR 05/16/2021 3:25 PM COSMETICS SUPERVISOR Zak Garcia MD [facility] [address] [place] [address], * CT CHEST WO CONTRAST (08/29/2010 4:53 [...] Comments Code Status Discussion: Discussed Care Teams Skin Carver Relationship Specialty Start Date End Date Klever Monte [place] [address] PCP - General Family Practice 06/12/22
--- OUTSIDE RECORDS SUMMARY | 2023-09-02 15:32 | XMS_ITS | Continuity of Care Document ---
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 It does not include entries that were removed or entered in error. Problem Status Onset Date Problem Type Date of Resolution Comments Source CVD - Cerebrovascular Disease ([facility] [id number]) Active 03/19/20 20 Condition May 01, 2020 Entered By: YOAV CHAUHAN Comment: 03/19/20: L MCA CVA, Admit ANW. Cardio-embol ic d/t Warfarin DC [facility] CAD - Coronary Artery Disease ([facility] [id number]) Active 01/27/20 20 Condition Mar 13, 2020 Entered By: YOAV CHAUHAN Comment: 01/27/20: LAD and Dx stented w/SATHYA at [facility]. Plavix +ASA thru 01/26/21 [facility] Peripheral arterial insufficiency Active 01/21/20 20 Condition Mar 13, 2020 Entered By: YOAV CHAUHAN Comment: 01/21/20: L femoral Art occlusion per [facility]-->Fem -Tibial bypass planned [facility] Allergic rhinitis (SNOMED CT 63311177) Active Condition [facility] Atrial fibrillation (SNOMED CT 75700280) Active Condition Apr 26, 2015 Entered By: YOAV CHAUHAN Comment: Warfarin through Miryam Rodriguez [facility] Co-Managed Care Active Condition Dec 25, 2017 Entered By: YOAV CHAUHAN Comment: Dr Garcia, [place], F: [phone] , [facility] COPD - Chronic Obstructive Pulmonary Disease ([facility] [id number]) Active Condition Dec 25, 2017 Entered By: YOAV CHAUHAN Comment: Mometasone & Albuterol MDI's [facility] [place] of toe Active Condition Sep 08, 2019 Entered By: YOAV CHAUHAN Comment: R middle toe [facility] Current smoker Active Condition Apr 082015 Entered By: YOAV CHAUHAN Comment: Cigars, not cigarettes [facility] Essential hypertension (SNOMED CT 25729309) Active Condition [facility] Glucose intolerance Active Condition [facility] Nocturia due to benign prostatic hypertrophy Active Condition [facility] Health Maintenance (ICD-9-CM V65.9) Inactive Condition 04/26/[address] [facility] Diagnosis: ICD-10-CM Z00.01 Encounter for general adult medical exam w abnormal findings 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 Diagnosis: ICD-10-CM Z76.0 Encounter for issue of repeat prescription Active Diagnosis [facility] Medications Combined list of outpatient medications [...] S OF BREATH INHALA TION HOLD 07/17/2024 [id number] AFRICA CHAUHAN 2023 2 [facility] ALBUTEROL 90MCG/ACTUA T (CFC-F) INHL,ORAL,8 .5GM DOSE COUNTER INHALE 2 PUFFS BY INHALATI ON FOUR TIMES A DAY NEEDED FOR SHORTNES S OF BREATH INHALA TION DISCONT INUED 08/08/2023 [id number] 3 AFRICA CHAUHAN 2022 2 [facility] APIXABAN 5MG TAB TAKE ONE TABLET BY MOUTH EVERY 12 HOURS TO PREVENT BLOOD CLOTS AND STROKE (ELIQUIS ) ORALLY ACTIVE 05/29/2024 [id number] 4 MARIANO GARCIA 2023 180 [facility] APIXABAN 5MG TAB TAKE ONE TABLET BY MOUTH EVERY 12 HOURS TO PREVENT BLOOD CLOTS AND STROKE (ELIQUIS ) ORALLY DISCONT INUED 05/09/2023 [id number] 3 MARIANO GARCIA 2022 180 [facility] CHOLECALCIF JONNA 25MCG (1,000UNIT) TAB TAKE FIVE TABLETS BY MOUTH QOD ORALLY ACTIVE AFRICA CHAUHAN 2016 [facility] FLUOCINONID E 0.1% CREAM,TOP APPLY A THIN LAYER TOPICALL Y TWICE A DAY NEEDED FOR RASH TOPICA LLY ACTIVE 12/13/2023 [id number] 3 AFRICA CHAUHAN 2022 60 [facility] FLUTICASONE 250MCG/SALM ETEROL 50MCG INHL,ORAL,D ISKUS,60 INHALE 1 PUFF BY INHALATI ON TWICE A DAY FOR COPD INHALA TION ACTIVE 07/17/2024 [id number] 4 AFRICA CHAUHAN 2023 3 [facility] FLUTICASONE 250MCG/SALM ETEROL 50MCG INHL,ORAL,D ISKUS,60 INHALE 1 PUFF BY INHALATI ON TWICE A DAY FOR COPD THIS REPLACES YOUR MOMETASO NE INHALA TION DISCONT INUED 08/08/2023 [id number] 4 AFRICA CHAUHAN 2022 3 [facility] FUROSEMIDE 20MG TAB TAKE ONE TABLET BY MOUTH THREE TIMES A WEEK FOR HEART FAILURE ORALLY ACTIVE 02/25/2024 [id number] 3 Hong DONAHUE 2022 39 [facility] FUROSEMIDE 20MG TAB TAKE ONE TABLET BY MOUTH EVERY OTHER DAY FOR HEART FAILURE ORALLY DISCONT INUED (EDIT) 08/13/2023 [id number] 3 AFRICA CHAUHAN 2022 45 [facility] FUROSEMIDE 20MG TAB TAKE ONE TABLET BY MOUTH EVERY MORNING FOR HEART FAILURE ORALLY DISCONT INUED 08/08/2023 [id number] 3 AFRICA CHAUHAN 2022 90 [facility] FUROSEMIDE 20MG TAB TAKE ONE TABLET BY MOUTH EVERY MORNING FOR HEART FAILURE ORALLY DISCONT INUED 11/16/2022 [id number] 3 AFRICA CHAUHAN 2021 90 [facility] HYDROCHLORO THIAZIDE 12.5MG TAB TAKE ONE TABLET BY MOUTH EVERY DAY FOR BLOOD PRESSURE ORALLY DISCONT INUED 08/08/2023 [id number] 3 AFRICA CHAUHAN 2022 90 [facility] METOPROLOL SUCCINATE 100MG TAB,SA TAKE ONE AND ONE-HALF TABLETS BY MOUTH EVERY DAY ORALLY DISCONT INUED 11/16/2022 [id number] 3 AFRICA CHAUHAN 2021 135 [facility] METOPROLOL SUCCINATE 50MG TAB,SA TAKE THREE TABLETS BY MOUTH EVERY DAY FOR BLOOD PRESSURE ORALLY DISCONT INUED 08/08/2023 [id number] 3 AFRICA CHAUHAN 2022 270 [facility] METOPROLOL TARTRATE 100MG TAB TAKE ONE TABLET BY MOUTH TWICE A DAY FOR BLOOD PRESSURE ORALLY ACTIVE 12/13/2023 [id number] 4 AFRICA CHAUHAN 2022 180 [facility] MOMETASONE FUROATE 220MCG/INHL INHL,ORAL,6 0 INHALE 1 PUFF BY MOUTH TWICE A DAY TO PREVENT TROUBLE BREATHIN G TWIST COVER ON AND OFF TO LOAD NEXT DOSERI NSE MOUTH AFTER USING * DO NOT WASH INHALER ORALLY DISCONT INUED 11/16/2022 [id number] 3 AFRICA CHAUHAN 2021 3 [facility] NIFEDIPINE (EQV-CC) 60MG TAB,SA TAKE ONE TABLET BY MOUTH EVERY DAY FOR BLOOD PRESSURE ORALLY DISCONT INUED BY PROVIDE R 08/08/2023 [id number] 3 AFRICA CHAUHAN 2022 90 [facility] NIFEDIPINE (EQV-CC) 60MG TAB,SA TAKE ONE TABLET BY MOUTH EVERY DAY FOR BLOOD PRESSURE ORALLY DISCONT INUED 09/11/2022 [id number] 3 AFRICA CHAUHAN 2022 90 [facility] NIFEDIPINE (EQV-CC) 60MG TAB,SA TAKE ONE TABLET BY MOUTH EVERY DAY FOR BLOOD PRESSURE ORALLY DISCONT INUED 08/28/2022 [id number] 3 AFRICA CHAUHAN 2022 90 [facility] NIFEDIPINE (EQV-CC) 90MG TAB,SA TAKE ONE TABLET BY MOUTH EVERY DAY FOR BLOOD PRESSURE ORALLY SUSPEND ED 07/17/2024 [id number] 4 AFRICA CHAUHAN 2023 90 [facility] NIFEDIPINE (EQV-CC) 90MG TAB,SA TAKE ONE TABLET BY MOUTH EVERY DAY FOR BLOOD PRESSURE INCREASE D DOSE PER CO-MANAG ED CARE INCREASE D DOSE PER CO-MANAG ED CARE ORALLY DISCONT INUED 12/13/2023 [id number] 4 AFRICA CHAUHAN 2022 90 [facility] POTASSIUM CHLORIDE 10MEQ TAB,SA TAKE ONE TABLET BY MOUTH THREE TIMES A WEEK FOR POTASSIU M SUPPLEME NT TAKE WITH FUROSEMI DE ORALLY ACTIVE 02/25/2024 [id number] 3 Hong DONAHUE A 2022 39 [facility] POTASSIUM CHLORIDE 10MEQ TAB,SA TAKE ONE TABLET BY MOUTH EVERY OTHER DAY FOR POTASSIU M SUPPLEME NT ORALLY DISCONT INUED (EDIT) 08/13/2023 [id number] 3 AFRICA CHAUHAN 2022 45 [facility] POTASSIUM CHLORIDE 10MEQ TAB,SA TAKE ONE TABLET BY MOUTH EVERY DAY FOR CONGESTI VE HEART FAILURE ORALLY DISCONT INUED 08/08/2023 [id number] 3 AFRICA CHAUHAN 2022 90 [facility] POTASSIUM CHLORIDE 10MEQ TAB,SA TAKE ONE TABLET BY MOUTH EVERY DAY FOR CONGESTI VE HEART FAILURE ORALLY DISCONT INUED 11/16/2022 [id number] 3 AFRICA CHAUHAN 2021 90 [facility] ROSUVASTATI N CA 20MG TAB TAKE ONE TABLET BY MOUTH AT BEDTIME FOR CORONARY ARTERY DISEASE ORALLY HOLD 07/17/2024 [id number] AFRICA CHAUHAN 2023 90 [facility] ROSUVASTATI N CA 20MG TAB TAKE ONE TABLET BY MOUTH AT BEDTIME FOR CORONARY ARTERY DISEASE ORALLY DISCONT INUED 08/08/2023 [id number] 4 AFRICA CHAUHAN 2022 90 [facility] TAMSULOSIN HCL 0.4MG CAP TAKE ONE CAPSULE BY MOUTH EVERY EVENING FOR PROSTATE ORALLY ACTIVE 07/17/2024 [id number] 4 AFRICA CHAUHAN 2023 30 [facility] Allergies, Adverse Reactions, Alerts Combined list of allergies from Department of Defense and Veterans Affairs facilities. It does not include entries that were removed or entered in error. Substance Category Reaction Severity Reaction type Status Date Reported Comments Source LISINOPRIL Propensity to adverse reactions to drug (finding) Cough active 0 [facility] Immunizations Combined list of available immunizations from the Department of Defense and Veterans Affairs facilities. Immunization Series Date Given Administered By Site Reaction Lot Number CVX Code Drug Flame Burner Status Comments Source COVID-19 ([employer]), MRNA, LNP-S, BIVALENT, PF, 30 MCG/0.3 ML DOSE 2022 300 complet ed [facility] COVID-19 ([employer]), MRNA, LNP-S, PF, 30 MCG/0.3 ML DOSE, JAMES-SUCROSE (AGES 12+ YEARS) 2021 217 complet ed [facility] COVID-19 ([employer]), MRNA, LNP-S, PF, 30 MCG/0.3 ML DOSE 2020 208 complet ed [facility] ZOSTER RECOMBINANT 2 2020 187 complet ed [facility] INFLUENZA VACCINE, QUADRIVALENT, ADJUVANTED 2020 205 complet ed [facility] INFLUENZA, UNSPECIFIED FORMULATION 2020 88 complet ed [facility] ZOSTER RECOMBINANT 1 2020 187 complet ed [facility] COVID-19 ([employer]), MRNA, LNP-S, PF, 30 MCG/0.3 ML DOSE 2 2020 208 complet ed [facility] COVID-19 ([employer]), MRNA, LNP-S, PF, 30 MCG/0.3 ML DOSE 1 2020 208 complet ed [facility] INFLUENZA VACCINE, QUADRIVALENT, ADJUVANTED 2019 205 complet ed [facility] INFLUENZA, TRIVALENT, ADJUVANTED 2018 168 complet ed [facility] INFLUENZA, SEASONAL, INJECTABLE 2018 141 complet ed [facility] INFLUENZA, SEASONAL, INJECTABLE 2017 141 complet ed [facility] INFLUENZA, TRIVALENT, ADJUVANTED 2017 168 complet ed [facility] INFLUENZA, HIGH DOSE SEASONAL 2016 135 complet ed [facility] PNEUMOCOCCAL POLYSACCHARID E PPV23 2016 33 complet ed [employer] , [id number], 06/03/18 [facility] TD (ADULT), 2 LF TETANUS TOXOID, PRESERVATIVE FREE, ADSORBED 2016 09 complet ed [employer] [id number], 12/19/18 [facility] INFLUENZA, HIGH DOSE SEASONAL 2016 135 complet ed [facility] PNEUMOCOCCAL POLYSACCHARID E PPV23 2016 33 complet ed [facility] INFLUENZA, HIGH DOSE SEASONAL 2015 135 complet ed [facility] PNEUMOCOCCAL CONJUGATE PCV 13 2015 133 complet ed [employer] [facility] PNEUMOCOCCAL CONJUGATE PCV 13 2014 133 complet ed [facility] INFLUENZA, UNSPECIFIED FORMULATION 2013 88 complet ed [facility] INFLUENZA, UNSPECIFIED FORMULATION 2013 88 complet ed [facility] INFLUENZA, UNSPECIFIED FORMULATION 2011 88 complet ed [facility] INFLUENZA, UNSPECIFIED FORMULATION 2010 88 complet ed [facility] PNEUMOCOCCAL, UNSPECIFIED FORMULATION 2009 109 complet ed [employer],093 02,10/21/ 011 [facility] TDAP 2009 115 complet ed [facility] ZOSTER LIVE 2008 121 complet ed [facility] TDAP 2007 115 complet ed private [facility] ZOSTER LIVE 2006 121 complet ed [facility] Results Combined list of recent [...] Jul 17, 2023 04:23 PM Reporting Lab: [facility] [address] Performing Lab: [facility] [address] [facility] URINALYS IS SPECIFIC GRAVITY OF URINE 1.006 1.003 - 1.035 07/16 Specimen Type: URINE No comment entered. Ordering Provider: TERRENCE CHAUHAN Report Released Date/Time: Jul 17, 2023 04:23 PM Reporting Lab: [facility] [address] Performing Lab: [facility] [address] [facility] URINALYS IS BILIRUBIN. TOTAL [PRESENCE] IN URINE BY TEST STRIP NEGATIVE 07/16 Specimen Type: URINE No comment entered. Ordering Provider: TERRENCE CHAUHAN Report Released Date/Time: Jul 17, 2023 04:23 PM Reporting Lab: [facility] [address] Performing Lab: [facility] [address] [facility] URINALYS IS KETONES [MASS/VOLU ME] IN URINE BY TEST STRIP NEGATIVE 07/16 Specimen Type: URINE No comment entered. Ordering Provider: TERRENCE CHAUHAN Report Released Date/Time: Jul 17, 2023 04:23 PM Reporting Lab: [facility] [address] Performing Lab: [facility] [address] [facility] URINALYS IS GLUCOSE [MASS/VOLU ME] IN URINE BY TEST STRIP NEGATIVE 07/16 Specimen Type: URINE No comment entered. Ordering Provider: TERRENCE CHAUHAN Report Released Date/Time: Jul 17, 2023 04:23 PM Reporting Lab: [facility] [address] Performing Lab: [address] [place] [address] [facility] URINALYS IS PROTEIN [MASS/VOLU ME] IN URINE BY TEST STRIP NEGATIVE 07/16 Specimen Type: URINE No comment entered. Ordering Provider: TERRENCE CHAUHAN Report Released Date/Time: Jul 17, 2023 04:23 PM Reporting Lab: [facility] [address] Performing Lab: [facility] [address] [place] [facility] URINALYS IS PH OF URINE BY TEST STRIP 7.0 5.0 - 8.0 07/16 Specimen Type: URINE No comment entered. Ordering Provider: TERRENCE CHAUHAN Report Released Date/Time: Jul 17, 2023 04:23 PM Reporting Lab: [facility] [address] Performing Lab: [facility] [address] [place] [facility] URINALYS IS LEUKOCYTES [#/AREA] IN URINE SEDIMENT BY MICROSCOPY HIGH POWER FIELD <1 0 - 7 07/16 Specimen Type: URINE No comment entered. Ordering Provider: TERRENCE CHAUHAN Report Released Date/Time: Jul 17, 2023 04:23 PM Reporting Lab: [facility] [address] Performing Lab: [facility] [address] [place] [facility] URINALYS IS BACTERIA [PRESENCE] IN URINE SEDIMENT BY LIGHT MICROSCOPY NONE SEEN 07/16 Specimen Type: URINE No comment entered. Ordering Provider: TERRENCE CHAUHAN Report Released Date/Time: Jul 17, 2023 04:23 PM Reporting Lab: [facility] [address] Performing Lab: [facility] [address] [place] [facility] URINALYS IS ERYTHROCYT ES [#/AREA] IN URINE SEDIMENT BY MICROSCOPY HIGH POWER FIELD <1 0 - 3 07/16 Specimen Type: URINE No comment entered. Ordering Provider: TERRENCE CHAUHAN Report Released Date/Time: Jul 17, 2023 04:23 PM Reporting Lab: [facility] [address] Performing Lab: [facility] [address] [place] [facility] URINALYS IS APPEARANCE OF URINE CLEAR 07/16 Specimen Type: URINE No comment entered. Ordering Provider: TERRENCE CHAUHAN Report Released Date/Time: Jul 17, 2023 04:23 PM Reporting Lab: [facility] [address] Performing Lab: [facility] [address] [place] [facility] URINALYS IS EPITHELIAL CELLS.SQUA MOUS [#/AREA] IN URINE SEDIMENT BY MICROSCOPY HIGH POWER FIELD NONE SEEN 07/16 Specimen Type: URINE No comment entered. Ordering Provider: TERRENCE CHAUHAN Report Released Date/Time: Jul 17, 2023 04:23 PM Reporting Lab: [facility] [address] Performing Lab: [facility] [address] [place] [facility] URINALYS IS HEMOGLOBIN [PRESENCE] IN URINE BY TEST STRIP NEGATIVE 07/16 Specimen Type: URINE No comment entered. Ordering Provider: TERRENCE CHAUHAN Report Released Date/Time: Jul 17, 2023 04:23 PM Reporting Lab: [facility] [address] Performing Lab: [facility] [address] [place] [facility] URINALYS IS NITRITE [PRESENCE] IN URINE BY TEST STRIP NEGATIVE 07/16 Specimen Type: URINE No comment entered. Ordering Provider: TERRENCE CHAUHAN Report Released Date/Time: Jul 17, 2023 04:23 PM Reporting Lab: [facility] [address] Performing Lab: [facility] [address] [place] [facility] URINALYS IS LEUKOCYTE ESTERASE [PRESENCE] IN URINE BY TEST STRIP NEGATIVE 07/16 Specimen Type: URINE No comment entered. Ordering Provider: TERRNECE CHAUHAN Report Released Date/Time: Jul 17, 2023 04:23 PM Reporting Lab: [facility] [address] Performing Lab: [facility] [address] [place] [facility] HEMOGLOB IN A1C [...] August 07, 2022 02:21 PM Reporting Lab: [facility] [address] Performing Lab: [facility] [address] [place] [address] [facility] BASIC METABOLI C PANEL+MG CREATININE [MASS/VOLU ME] IN SERUM OR PLASMA 1.3 0.7 - 1.2 07/16 H Specimen Type: PLASMA No comment entered. Ordering Provider: TERRENCE CHAUHAN Report Released Date/Time: August 07, 2022 02:21 PM Reporting Lab: [facility] [address] Performing Lab: [facility] [address] [place] [address] [facility] BASIC METABOLI C PANEL+MG UREA NITROGEN [MASS/VOLU ME] IN SERUM OR PLASMA 15 8 - 26 07/16 Specimen Type: PLASMA No comment entered. Ordering Provider: TERRENCE CHAUHAN Report Released Date/Time: August 07, 2022 02:21 PM Reporting Lab: [facility] [address] Performing Lab: [facility] [address] [place] [facility] BASIC METABOLI C PANEL+MG GLUCOSE [MASS/VOLU ME] IN SERUM OR PLASMA 84 70 - 100 07/16 Specimen Type: PLASMA No comment entered. Ordering Provider: TERRENCE CHAUHAN Report Released Date/Time: August 07, 2022 02:21 PM Reporting Lab: [facility] [address] Performing Lab: [facility] [address] [place] [facility] BASIC METABOLI C PANEL+MG SODIUM [MOLES/VOL UME] IN SERUM OR PLASMA 137 136 - 145 07/16 Specimen Type: PLASMA No comment entered. Ordering Provider: TERRENCE CHAUHAN Report Released Date/Time: August 07, 2022 02:21 PM Reporting Lab: [facility] [address] Performing Lab: [facility] [address] [place] [address] [facility] BASIC METABOLI C PANEL+MG POTASSIUM [MOLES/VOL UME] IN SERUM OR PLASMA 4.6 3.5 - 5.1 07/16 Specimen Type: PLASMA No comment entered. Ordering Provider: TERRENCE CHAUHAN Report Released Date/Time: August 07, 2022 02:21 PM Reporting Lab: [facility] [address] Performing Lab: [facility] [address] [place] [facility] BASIC METABOLI C PANEL+MG CHLORIDE [MOLES/VOL UME] IN SERUM OR PLASMA 105 98 - 107 07/16 Specimen Type: PLASMA No comment entered. Ordering Provider: TERRENCE CHAUHAN Report Released Date/Time: August 07, 2022 02:21 PM Reporting Lab: [facility] [address] Performing Lab: [facility] [address] [place] [facility] BASIC METABOLI C PANEL+MG CARBON DIOXIDE, TOTAL [MOLES/VOL UME] IN SERUM OR PLASMA 24 22 - 29 07/16 Specimen Type: PLASMA No comment entered. Ordering Provider: TERRENCE CHAUHAN Report Released Date/Time: August 07, 2022 02:21 PM Reporting Lab: [facility] [address] Performing Lab: [facility] [address] [place] [facility] BASIC METABOLI C PANEL+MG CALCIUM [MASS/VOLU ME] IN SERUM OR PLASMA 8.9 8.4 - 10.2 07/16 Specimen Type: PLASMA No comment entered. Ordering Provider: TERRENCE CHAUHAN Report Released Date/Time: August 07, 2022 02:21 PM Reporting Lab: [facility] [address] Performing Lab: [facility] [address] [place] [facility] BASIC METABOLI C PANEL+MG MAGNESIUM [MASS/VOLU ME] IN SERUM OR PLASMA 2.1 1.6 - 2.6 07/16 Specimen Type: PLASMA No comment entered. Ordering Provider: TERRENCE CHAUHAN Report Released Date/Time: August 07, 2022 02:21 PM Reporting Lab: [facility] [address] Performing Lab: [facility] [address] [place] [facility] BASIC METABOLI C PANEL+MG ANION GAP IN SERUM OR PLASMA 8 5 - 15 07/16 Specimen Type: PLASMA No comment entered. Ordering Provider: TERRENCE CHAUHAN Report Released Date/Time: August 07, 2022 02:21 PM Reporting Lab: [facility] [address] Performing Lab: [facility] [address] [place] [address] [facility] BASIC METABOLI C PANEL+MG GLOMERULAR FILTRATION RATE/1.73 SQ M.PREDICTE D [VOLUME RATE/AREA] IN SERUM, PLASMA OR BLOOD BY CREATININE -BASED FORMULA (CKD-EPI 2020) 56 60 07/16 L Specimen Type: PLASMA No comment entered. Ordering Provider: TERRENCE CHAUHAN Report Released Date/Time: August 07, 2022 02:21 PM Reporting Lab: [facility] [address] Performing Lab: [facility] [address] [place] [facility] LIVER FUNCTION TESTS BILIRUBIN. TOTAL [MASS/VOLU ME] IN SERUM OR PLASMA 0.8 0.2 - 1.2 07/16 Specimen Type: PLASMA No comment entered. Ordering Provider: TERRENCE CHAUHAN Report Released Date/Time: August 07, 2022 02:21 PM Reporting Lab: [facility] [address] Performing Lab: [facility] [address] [place] [address] [facility] LIVER FUNCTION TESTS ALKALINE PHOSPHATAS E [ENZYMATIC ACTIVITY/V OLUME] IN SERUM OR PLASMA 52 40 - 150 07/16 Specimen Type: PLASMA No comment entered. Ordering Provider: TERRENCE CHAUHAN Report Released Date/Time: August 07, 2022 02:21 PM Reporting Lab: [facility] [address] Performing Lab: [facility] [address] [place] [facility] LIVER FUNCTION TESTS ALANINE AMINOTRANS FERASE [ENZYMATIC ACTIVITY/V OLUME] IN SERUM OR PLASMA 20 <55 - 55 07/16 Specimen Type: PLASMA No comment entered. Ordering Provider: TERRENCE CHAUHAN Report Released Date/Time: August 07, 2022 02:21 PM Reporting Lab: [facility] [address] Performing Lab: [facility] [address] [place] [facility] LIVER FUNCTION TESTS ASPARTATE AMINOTRANS FERASE [ENZYMATIC ACTIVITY/V OLUME] IN SERUM OR PLASMA 19 <34 - 34 07/16 Specimen Type: PLASMA No comment entered. Ordering Provider: TERRENCE CHAUHAN Report Released Date/Time: August 07, 2022 02:21 PM Reporting Lab: [facility] [address] Performing Lab: [facility] [address] [place] [facility] LIVER FUNCTION TESTS GAMMA GLUTAMYL TRANSFERAS E [ENZYMATIC ACTIVITY/V OLUME] IN SERUM OR PLASMA 38 <64 - 64 07/16 Specimen Type: PLASMA No comment entered. Ordering Provider: TERRENCE CHAUHAN Report Released Date/Time: August 07, 2022 02:21 PM Reporting Lab: [facility] [address] Performing Lab: [facility] [address] [place] [facility] CBC LEUKOCYTES [#/VOLUME] IN BLOOD BY AUTOMATED COUNT 8.72 4.0 - 11.0 07/16 Specimen Type: BLOOD No comment entered. Ordering Provider: TERRENCE CHAUHAN Report Released Date/Time: August 07, 2022 02:21 PM Reporting Lab: [facility] [address] Performing Lab: [facility] [address] [place] [address] [facility] CBC ERYTHROCYT ES [#/VOLUME] IN BLOOD BY AUTOMATED COUNT 4.11 4.6 - 6.2 07/16 L Specimen Type: BLOOD No comment entered. Ordering Provider: TERRENCE CHAUHAN Report Released Date/Time: August 07, 2022 02:21 PM Reporting Lab: [facility] [address] Performing Lab: [facility] [address] [place] [address] [facility] CBC HEMOGLOBIN [MASS/VOLU ME] IN BLOOD 13.4 13.5 - 17.9 07/16 L Specimen Type: BLOOD No comment entered. Ordering Provider: TERRENCE CHAUHAN Report Released Date/Time: August 07, 2022 02:21 PM Reporting Lab: [facility] [address] Performing Lab: [facility] [address] [place] [address] [facility] CBC HEMATOCRIT [VOLUME FRACTION] OF BLOOD BY AUTOMATED COUNT 39.7 41 - 54 07/16 L Specimen Type: BLOOD No comment entered. Ordering Provider: TERRENCE CHAUHAN Report Released Date/Time: August 07, 2022 02:21 PM Reporting Lab: [facility] [address] Performing Lab: [facility] [phone] [place] [facility] CBC MCV [ENTITIC VOLUME] BY AUTOMATED COUNT 96.6 80 - 100 07/16 Specimen Type: BLOOD No comment entered. Ordering Provider: TERRENCE CHAUHAN Report Released Date/Time: August 07, 2022 02:21 PM Reporting Lab: [facility] [address] Performing Lab: [facility] [address] [place] [facility] CBC MCH [ENTITIC MASS] BY AUTOMATED COUNT 32.6 27 - 33 07/16 Specimen Type: BLOOD No comment entered. Ordering Provider: TERRENCE CHAUHAN Report Released Date/Time: August 07, 2022 02:21 PM Reporting Lab: [facility] [address] Performing Lab: [facility] [address] [place] [address] [facility] CBC MCHC [MASS/VOLU ME] BY AUTOMATED COUNT 33.8 32.0 - 37.5 07/16 Specimen Type: BLOOD No comment entered. Ordering Provider: TERRENCE CHAUHAN Report Released Date/Time: August 07, 2022 02:21 PM Reporting Lab: [facility] [address] Performing Lab: [facility] [address] [facility] CBC PLATELETS [#/VOLUME] IN BLOOD BY AUTOMATED COUNT 159 150 - 400 07/16 Specimen Type: BLOOD No comment entered. Ordering Provider: TERRENCE CHAUHAN Report Released Date/Time: August 07, 2022 02:21 PM Reporting Lab: [facility] [address] Performing Lab: [facility] [address] [facility] CBC PLATELET MEAN VOLUME [ENTITIC VOLUME] IN BLOOD BY AUTOMATED COUNT 9.6 7.4 - 10.4 07/16 Specimen Type: BLOOD No comment entered. Ordering Provider: TERRENCE CHAUHAN Report Released Date/Time: August 07, 2022 02:21 PM Reporting Lab: [facility] [address] Performing Lab: [facility] [address] [facility] CBC ERYTHROCYT E DISTRIBUTI ON WIDTH [RATIO] BY AUTOMATED COUNT 14.1 11.5 - 14.5 07/16 Specimen Type: BLOOD No comment entered. Ordering Provider: TERRENCE CHAUHAN Report Released Date/Time: August 07, 2022 02:21 PM Reporting Lab: [facility] [address] Performing Lab: [facility] [address] [facility] PSA PROSTATE SPECIFIC AG [MASS/VOLU ME] IN SERUM OR PLASMA 3.84 <4.00 - 4.00 07/16 Specimen Type: SERUM No comment entered. Ordering Provider: TERRENCE CHAUHAN Report Released Date/Time: August 07, 2022 02:21 PM Reporting Lab: [facility] [address] Performing Lab: [facility] [address] [place] [address] [facility] CREATINI NE(INCLU SATHYA EGFR) CREATININE [MASS/VOLU ME] IN SERUM OR PLASMA 1.2 0.7 - 1.2 04/16 Specimen Type: PLASMA No comment entered. Ordering Provider: HUYEN HYLTON Report Released Date/Time: Mar 07, 2023 02:00 PM Reporting Lab: [facility] [address] Performing Lab: [facility] [address] [place] [address] [facility] CREATINI NE(INCLU SATHYA EGFR) GLOMERULAR FILTRATION RATE/1.73 SQ M.PREDICTE D [VOLUME RATE/AREA] IN SERUM, PLASMA OR BLOOD BY CREATININE -BASED FORMULA (CKD-EPI 2020) 62 60 04/16 Specimen Type: PLASMA No comment entered. Ordering Provider: HUYEN HYLTON Report Released Date/Time: Mar 07, 2023 02:00 PM Reporting Lab: [facility] [address] Performing Lab: [facility] [address] [place] [address] [facility] AST/SGOT ASPARTATE AMINOTRANS FERASE [ENZYMATIC ACTIVITY/V OLUME] IN SERUM OR PLASMA 22 <34 - 34 04/16 Specimen Type: PLASMA No comment entered. Ordering Provider: HUYEN HYLTON Report Released Date/Time: Mar 07, 2023 02:00 PM Reporting Lab: [facility] [address] Performing Lab: [facility] [address] [place] [address] [facility] CBC LEUKOCYTES [#/VOLUME] IN BLOOD BY AUTOMATED COUNT 8.06 4.0 - 11.0 04/16 Specimen Type: BLOOD No comment entered. Ordering Provider: HUYEN HYLTON S Report Released Date/Time: Mar 07, 2023 02:00 PM Reporting Lab: [facility] [address] Performing Lab: [facility] [address] [place] [address] [facility] CBC ERYTHROCYT ES [#/VOLUME] IN BLOOD BY AUTOMATED COUNT 4.03 4.6 - 6.2 04/16 L Specimen Type: BLOOD No comment entered. Ordering Provider: HUYEN HYLTON S Report Released Date/Time: Mar 07, 2023 02:00 PM Reporting Lab: [facility] [address] Performing Lab: [place] [address] [place] [address] [facility] CBC HEMOGLOBIN [MASS/VOLU ME] IN BLOOD 13.1 13.5 - 17.9 04/16 L Specimen Type: BLOOD No comment entered. Ordering Provider: HUYEN HYLTON S Report Released Date/Time: Mar 07, 2023 02:00 PM Reporting Lab: [facility] [address] Performing Lab: [address] [place] [facility] CBC HEMATOCRIT [VOLUME FRACTION] OF BLOOD BY AUTOMATED COUNT 38.9 41 - 54 04/16 L Specimen Type: BLOOD No comment entered. Ordering Provider: HUYEN HYLTON S Report Released Date/Time: Mar 07, 2023 02:00 PM Reporting Lab: [facility] [address] Performing Lab: [facility] [address] [place] [address] [facility] CBC MCV [ENTITIC VOLUME] BY AUTOMATED COUNT 96.5 80 - 100 04/16 Specimen Type: BLOOD No comment entered. Ordering Provider: HUYEN HYLTON S Report Released Date/Time: Mar 07, 2023 02:00 PM Reporting Lab: [facility] [address] Performing Lab: [facility] [address] [place] [address] [facility] CBC MCH [ENTITIC MASS] BY AUTOMATED COUNT 32.5 27 - 33 04/16 Specimen Type: BLOOD No comment entered. Ordering Provider: HUYEN HYLTON S Report Released Date/Time: Mar 07, 2023 02:00 PM Reporting Lab: [facility] [address] Performing Lab: [facility] [address] [place] [address] [facility] CBC MCHC [MASS/VOLU ME] BY AUTOMATED COUNT 33.7 32.0 - 37.5 04/16 Specimen Type: BLOOD No comment entered. Ordering Provider: HUYEN HYLTON Report Released Date/Time: Mar 07, 2023 02:00 PM Reporting Lab: [facility] [address] Performing Lab: [facility] [address] [place] [facility] CBC PLATELETS [#/VOLUME] IN BLOOD BY AUTOMATED COUNT 157 150 - 400 04/16 Specimen Type: BLOOD No comment entered. Ordering Provider: HUYEN HYLTON S Report Released Date/Time: Mar 07, 2023 02:00 PM Reporting Lab: [facility] [address] Performing Lab: [facility] [address] [place] [facility] CBC PLATELET MEAN VOLUME [ENTITIC VOLUME] IN BLOOD BY AUTOMATED COUNT 9.7 7.4 - 10.4 04/16 Specimen Type: BLOOD No comment entered. Ordering Provider: HUYEN HYLTON Report Released Date/Time: Mar 07, 2023 02:00 PM Reporting Lab: [facility] [address] Performing Lab: [facility] [address] [facility] CBC ERYTHROCYT E DISTRIBUTI ON WIDTH [RATIO] BY AUTOMATED COUNT 14.5 11.5 - 14.5 04/16 Specimen Type: BLOOD No comment entered. Ordering Provider: HUYEN HYLTON Report Released Date/Time: Mar 07, 2023 02:00 PM Reporting Lab: [facility] [address] Performing Lab: [facility] [address] [place] [facility] ALT/SGPT ALANINE AMINOTRANS FERASE [ENZYMATIC ACTIVITY/V OLUME] IN SERUM OR PLASMA 19 <55 - 55 04/16 Specimen Type: PLASMA No comment entered. Ordering Provider: HUYEN HYLTON Report Released Date/Time: Mar 07, 2023 02:00 PM Reporting Lab: [facility] [address] Performing Lab: [facility] [address] [facility] Vital Signs Combined list of inpatient and outpatient Vital Signs from Department of Defense and Veterans Affairs, ranging from 12 months to all on record, depending upon the facility. Vital Sign Value Date Comments Source Encounters Combined list of: 1) Encounters from Department of [facility] facilities going back up to thelast 18 months. 2) Encounters from the Department of Defense facilities going back up to 280 months. Location Location Details Encounter Type Encounter Number Reason For Visit Attending Provider ADM Date DC Date Status Disposition Source [place] [facility] Outpatient Encounter [id number] 04/24 [facility] EMERGENCY DEPT VISIT SF MDM [id number] Diagnos is: ICD-10- CM Z76.0 Encount er for issue of repeat prescri ption<b r/> AICHA GALLEGOS 05/09 [facility] Outpatient Encounter [id number] 05/09 [facility] Outpatient Encounter [id number] 06/12 [facility] [place] [facility] Outpatient Encounter [id number] 07/15 [facility] [place] [facility] OFFICE O/P EST MOD 30-39 MIN [id number] Diagnos is: ICD-10- CM Z00.01 Encount er for general adult medical exam w abnorma l finding s
DANETTE LIN LY E 08/07 [facility] [place] [facility] Outpatient Encounter [id number] 08/07 [facility] [place] [facility] Outpatient Encounter [id number] OLESYA ROGERS 08/12 [facility] [place] [facility] Outpatient Encounter [id number] OLESYA ROGERS 08/12 [facility] [place] [facility] Outpatient Encounter [id number] Ana CHAUHAN 09/12 [place] [facility] [place] [facility] Out[place] Encounter [id number] 11/[address] [place] [address] [facility] [place] [facility] Outpatient Encounter [id number] 12/[address] [place] [address] [facility] [place] [facility] Outpatient Encounter [id number] 12/[address] [place] [address] [facility] [place] [facility] Outpatient [facility]counter [id number] 01/[address] [place] [address] [facility] [place] [facility] Outpatient Encounter [id number] 02/[address] [place] [address] [place] [facility] Outpatient Encounter [id number] 02/24 [place] [facility] [place] [facility] Out[place] Encounter [id number] 03/07 [place] [facility] [place] 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
ELLEN GARCIA 05/29 [facility] [place] [facility] OFFICE O/P EST MOD 30 MIN [id number] Diagnos is: ICD-10- CM Z00.01 Encount er for general adult medical exam w abnorma l finding s
Ana CHAUHAN 07/16 [facility] [place] [facility] Out[facility] Encounter [id number] 07/17 [facility] Social History Combined list of available smoking, tobacco, and other social history from Department of Defense and Veterans Affairs facilities. Social History Type Response Date Comment Sour e Tobacco smoking status NCIS MT-TOBACCO FORMER USER 07/17/2023 [facility] History of tobacco use MT-TOBACCO QUIT 1 TO < 5 YRS 07/17/2023 [facility] History of tobacco use VA-TOBACCO FORMER USER 08/07/2022 [facility] History of tobacco use VA-TOBACCO FORMER USER 10/16/2020 [facility] History of tobacco use VA-TOBACCO USE CO UNSEL NO 03/29/2019 [facility] History of tobacco use VA-TOBACCO USE WI 30 MIN OF WAKEUP 02/17/2018 [facility] History of tobacco use CURRENT TOBACCO USER 02/12/2017 [facility] History of tobacco use CURRENT TOBACCO USER 04/25/2015 [facility] History of tobacco use CURRENT TOBACCO USER 04/21/2014 [facility] History of tobacco use CURRENT TOBACCO USER 04/20/2013 [facility] History of tobacco use CURRENT TOBACCO USER 03/20/2012 [facility] History of tobacco use CURRENT TOBACCO USER 02/06/2011 [facility] History of tobacco use CURRENT TOBACCO USER 01/02/2010 [facility]
== END 2023-09-02 15:31 | disposition home or self-care (01) ==
LOC: WOUND 15:30
PROVIDERS: PCP Family Medicine; Visit Provider Family Medicine
DX: L02.212 Cutaneous abscess of back [any part, except buttock and flank] (principal)
CPT/HCPCS: 11042

== ENCOUNTER 2023-09-05 07:56 | Outpatient (CLI) | payer MEDICARE, BC, SELFPAY ==
--- OUTSIDE RECORDS SUMMARY | 2023-09-05 07:58 | XMS_ITS | Clinical Summary ---
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 LLE angiogram 2. ALL SOURCE ANALYST of [place] peroneal Panlobular emphysema 10/21/2018 COPD exacerbation 09/09/2018 [...] Lab Requisition [facility] [phone] Unknown, Doctor 08/04/2023 8:35 AM CDT Office Visit [facility] [address] [facility] [address] Jena Pascual PA Follow Up (Boil) 08/04/2023 Travel 08/01/2023 8:35 AM CDT Office Visit [facility] [address] [place] [address] Jena Pascual PA Derm Problem 08/01/2023 Travel from Last 3 Months Immunizations Name Administration Dates Next Due AMB INFLUENZA IIV3 (AGE 65+ YRS) PF (Flu Clinic Only) 02/24/2019 COVID-19 vaccine (Pfizer-Bio NTech 30mcg/0.3mL) 12YO+ JAMES-SUCROSE PF, MDV 08/24/2021 COVID-19 vaccine ([place] Shell[employer]-Bio NTech 30mcg/0.3mL) PF, MDV 06/17/2020,05/27/2020 Influenza Virus, [...] T Respiratory Rate 18 03/17/2023 3:35 PM OCEANOGRAPHER PHYS[facility] Oxygen Saturation 96% 08/04/2023 8:35 AM CDT Inhaled Oxygen Concentration - - Weight 90.7 kg (200 lb) 08/04/2023 8:35 AM CDT Height 190.5 cm (6' 3) 03/17/2023 2:07 PM OCEANOGRAPHER PHYSICAL Body Mass Index 25 03/17/2023 2:07 PM OCEANOGRAPHER PHYSICAL Plan of Treatment Health Maintenance Due Date [...] back ANTI HCV Routine 05/16/2021 3:20 PM OCEANOGRAPHER PHYSICAL Need for hepatitis C screening test CT CHEST WO Routine 08/29/2010 4:53 PM CDT Pulmonary nodules from Last 3 Months or Most Recently Relevant to Health Maintenance Results * LAB TRACKING EVENT (08/05/2023 2:01 PM CDT) Other (Other) Client Collect / Unknown 08/05/2023 2:01 PM CDT 08/05/2023 9:37 PM CDT Doctor Unknown LAB BILL ONLY [facility] [address] [place] [address], * PATH TISSUE EXAM (08/05/2023 2:01 PM CDT) Case Report Pathology Report ?Case: [id number] ? Authorizing Provider: ??Unknown, Doctor ?Collected: ? 08/05/2023 1401 ? Ordering Location: ? [facility] ?Received: ?08/06/2023 1013 ? Pathologist: ? Jose Rinaldi MD ? Specimen: ?Back ? 08/07/2023 4:47 PM CDT [facility] Final Diagnosis A) SKIN, BACK, CYST, EXCISION: 1. Epidermoid cyst 2. Negative for dysplasia or malignancy 08/07/2023 4:47 PM CDT [facility] Clinical Information back cyst 08/07/2023 4:47 PM CDT [facility] Gross Description A) Received in formalin, labeled with the patient's name and date of , is a 1.5 x 1.1 x 0.3 cm aggregate of pale-garcia cyst wall fragments admixed with garcia-white soft, friable cyst contents. ??The specimen is filtered and submitted entirely in 1 cassette. [facility] 08/06/2023 08/07/2023 4:47 PM CDT [facility] Microscopic Description The final diagnosis is based on microscopic examination of appropriate sections of all specimens. 08/07/2023 4:47 PM CDT [facility] Additional Information Interpreted at [facility] - [address], [place] [address] 08/07/2023 4:47 PM CDT [facility] Other (Back) 08/05/2023 2:01 PM CDT 08/06/2023 10:13 AM CDT Doctor Unknown PATHOLOGY/CYTOLOGY [facility] [address] [place] [address], * AEROBIC BACTERIAL CULTURE, STAIN (08/01/2023 9:30 AM CDT) CULTURE No Growth. 08/03/2023 3:00 PM CDT [facility] GRAM STAIN 4+ RBCs 08/03/2023 3:00 PM CDT [facility] GRAM STAIN 1+ PMNs 08/03/2023 3:00 PM CDT [facility] GRAM STAIN No Epithelial cells 08/03/2023 3:00 PM CDT [facility] GRAM STAIN 4+ Gram Positive Cocci 08/03/2023 3:00 PM CDT [facility] GRAM STAIN 3+ Gram Negative Bacilli 08/03/2023 3:00 PM CDT [facility] Other (Other) Non-Blood / Unknown 08/01/2023 9:30 AM CDT 08/01/2023 9:31 AM CDT Jena RICHARDSON MICROBIOLOGY [facility] [address] [place] [address], * ANTI HCV (05/16/2021 3:20 PM OCEANOGRAPHER PHYSICAL) HEPATITIS C ANTIBODY Non-React edemlira Non-React edelmira 05/17/2021 1:21 AM OCEANOGRAPHER PHYSICAL [facility] Comment:Antibodies to HCV no t detected; does not exclude the possibility of exposure to HCV. Blood BLOOD SPECIMEN / Unknown Venipuncture / Unknown 05/16/2021 3:20 PM OCEANOGRAPHER PHYSICAL 05/16/2021 3:25 PM OCEANOGRAPHER PHYSICAL Zak Garcia MD SEND OUTS [facility] [address] [place] [address], * CT CHEST WO CONTRAST (08/29/2010 4:53 [...] Comments Code Status Discussion: Discussed Care Teams Business Database Analyst Relationship Specialty Start Date End Date Klever Monte [place] [address] [place] [address] PCP - General Family Practice 06/12/22
--- OUTSIDE RECORDS SUMMARY | 2023-09-05 07:58 | XMS_ITS | Data Portability ---
Author Organization [place] - [facility], [employer] Address [address] [place] [address] Assessment Encounter Date Assessment Date Assessment LastModified [...] user Active 2015 Tobacco user; Original Code: [id number] Origi nal Codesystem: SNOMED CT Classificati on: Medical Confirm ation Status: Probable Not Available [facility] Onychomycosis of toenails Active 2015 Onychomycosis of toenails; Original Code: [id number] Orig inal Codesystem: SNOMED CT Classificati on: Medical Confirm ation Status: Confirmed Not Available [facility] 09:10:17 Heart disease Active 2021 Heart disease; Original Code: [id number] Origin al Codesystem: SNOMED CT Classificati on: Medical Confirm ation Status: Confirmed Not Available [facility] 3 09:10:17 Corns and callus Active 2015 Corns and callus; Original Code: [id number] Origi nal Codesystem: SNOMED CT Classificati on: Medical Confirm ation Status: Confirmed Not Available [facility] 3 09:10:17 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; Original Code: [id number] Orig inal Codesystem: SNOMED CT Classificati on: Medical Confirm ation Status: Confirmed Not Available [facility] 3 09:10:17 Foot pain Active 2015 Foot pain; Original Code: [id number] Origi nal Codesystem: SNOMED CT Classificati on: Medical Confirm ation Status: Confirmed Not Available [facility] 3 09:10:17 Acquired hallux valgus Active 2015 Acquired hallux valgus; Original Code: 199728641 Origi nal Codesystem: SNOMED CT Classificati on: Medical Confirm ation Status: Confirmed Not Available [facility] 3 09:10:17 Acquired hallux malleus Active 2015 Acquired hallux malleus; Original Code: 68582361 Origin al Codesystem: SNOMED CT Classificati on: Medical Confirm ation Status: Confirmed Not Available [facility] 3 09:10:17 Atrial fibrillation Active 2015 Atrial fibrillation; Original Code: 23438491 Origin al Codesystem: SNOMED CT Classificati on: Medical Confirm ation Status: Confirmed Not Available [facility] 3 09:10:17 Hypertensive disorder Active 2015 Hypertensive disorder; Original Code: [id number] Orig inal Codesystem: SNOMED CT Classificati on: Medical Confirm ation Status: Confirmed Not Available [facility] 3 09:10:17 Notes:H/O: anticoagulant the rapy Original Code: [id number] Original Codesystem: SNOMED CT Classification: Medical Confirmation Status: Confirmed Problem Notes None recorded. Procedures Surgical History Date Name Laterality Status Provider Name and Address Organization Details Recorded Time 10/24/[address] Hong Andres DPM [address] [place] [address], [phone], [facility] 10/23/2022 11:44:57 07/25/[address] Pitts completed Too Andres DPM [address] [place] [address], [phone], [facility] 07/24/2022 10:35:10 04/24/[address] Hong Andres DPM [address] [place] [address], [phone], [facility] 04/24/2022 11:13:18 [...] Updated DateTime 04/24/2022 190.5 cm 25 kg/m2 65374.47 g Mamta Corbett [facility] 04/24/2022 10:32:58 Social History None recorded. Functional Status None recorded. Mental Status None recorded. Family History Nothing Reported. Medical History No medical history recorded. Past Encounters Encounter ID Performer Location Encounter Start Date Encounter Closed Date Diagnosis/Indication Diagnosis SNOMED-CT Code [id number] Too Andres DPM [facility] [address] [place] [id number] 04/24/2022 10:31:04 04/24/2022 13:46:36 Onychomycosis [id number] Peripheral vascular disease [id number] Too Andres DPM [facility] [address] [place] [phone] 07/24/2022 10:14:25 07/25/2022 09:45:42 Onychomycosis 537091972 Peripheral vascular disease [id number] Too Andres DPM [facility] [address] [place] [address] 10/23/2022 10:13:43 10/24/2022 09:44:58 Onychomycosis [id number] Peripheral vascular disease [id number] Health Concerns Section Related Observation LastModified by Organization Detai ls LastModified Time None Recorded Concern Status LastModified by Organization Details LastModified Time None Recorded Advance Directives Directive None Recorded Payers Encounter Date Sequence Insurance Name Policy Number Policy Kevin Covered Member ID Kevin Member ID Guarantor Name 10/23/2022 1 [employer] [id number] Bola Zurita [id number] Bola Zurita 07/24/2022 1 [place] [id number] Bola Zurita [id number] Bola Zurita 04/24/2022 1 [place] [id number] Bola J Parminder [id number] Bola Zurita Notes Date Note Type Note Provider Name and Address Organization Details Recorded Time 04/24/2022 text/html HPI Notes: Pawel salmeron is a 77 year old male established patient who presents with the chief complaint. Presents today for evaluation of problematic toenails and feet in general. They relate chronic thickening and deformity to their toenails that has not responded to self-trimming, topical xgef-oin-sldzlnu anti-fungal therapy, foot soaks, and other similar conservative treatments. Nails are painful with catching on shoegear and socks. Denies any recent foot injury or infection. Claudication symptoms: No Burning symptoms: No Paresthesia: Subjective numbness to the left lower extremity consistent with his previous surgical procedures performed through [facility] Patient presents for further evaluation and treatment options. Too Andres DPM [address] [place], [address], [facility] 04/24/2022 11:14:44 07/24/2022 text/html HPI Notes: Pawel salmeron is a 77 year old male established patient who presents with the chief complaint. Presents today for evaluation of problematic toenails and feet in general. They relate chronic thickening and deformity to their toenails that has not responded to self-trimming, topical ayow-ifi-zsaktiu anti-fungal therapy, foot soaks, and other similar conservative treatments. Nails are painful with catching on shoegear and socks. Denies any recent foot injury or infection. Claudication symptoms: No Burning symptoms: No Paresthesia: Subjective numbness to the left lower extremity consistent with his previous surgical procedures performed through [facility] in [facility] Patient presents for further evaluation and treatment options. Too Andres DPM [address] [place], [phone], [facility] 07/24/2022 10:35:54 10/23/2022 text/html HPI Notes: Pawel salmeron is a 77 year old male established patient who presents with the chief complaint. Presents today for evaluation of problematic toenails and feet in general. They relate chronic thickening and deformity to their toenails that has not responded to self-trimming, topical ujjs-kod-hmanvil anti-fungal therapy, foot soaks, and other similar conservative treatments. Nails are painful with catching on shoegear and socks. Denies any recent foot injury or infection. Claudication symptoms: No Burning symptoms: No Paresthesia: Subjective numbness to the left lower extremity consistent with his previous surgical procedures performed through [facility] in [facility] Patient presents for further evaluation and treatment options. Too Andres DPM [address] [place], [address], [facility] 10/23/2022 11:45:19
--- OUTSIDE RECORDS SUMMARY | 2023-09-05 07:58 | XMS_ITS | Continuity of Care Document ---
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 It does not include entries that were removed or entered in error. Problem Status Onset Date Problem Type Date of Resolution Comments Source CVD - Cerebrovascular Disease ([facility] 01288584) Active 03/19/20 20 Condition May 01, 2020 Entered By: YOAV CHAUHAN Comment: 03/19/20: L MCA CVA, Admit ANW. Cardio-embol ic d/t Warfarin DC [facility] CAD - Coronary Artery Disease ([facility] 36351531) Active 01/27/20 20 Condition Mar 13, 2020 Entered By: YOAV CHAUHAN Comment: 01/27/20: LAD and Dx stented w/SATHYA at [facility]. Plavix +ASA thru 01/26/21 [facility] Peripheral arterial insufficiency Active 01/21/20 20 Condition Mar 13, 2020 Entered By: YOAV CHAUHAN Comment: 01/21/20: L femoral Art occlusion per [facility]-->Fem -Tibial bypass planned [facility] Allergic rhinitis (SNOMED CT 39376466) Active Condition [facility] Atrial fibrillation (SNOMED CT 01309620) Active Condition Apr 26, 2015 Entered By: YOAV CHAUHAN Comment: Warfarin through Miryam Rodriguez [facility] Co-Managed Care Active Condition Dec 25, 2017 Entered By: YOAV CHAUHAN Comment: Dr Garcia, Michael Gordon, F: [phone] , [facility] COPD - Chronic Obstructive Pulmonary Disease ([facility] [id number]) Active Condition Dec 25, 2017 Entered By: YOAV CHAUHAN Comment: Mometasone & Albuterol MDI's [facility] [place] of toe Active Condition Sep 08, 2019 Entered By: YOAV CHAUHAN Comment: R middle toe [facility] Current smoker Active Condition Apr 082015 Entered By: YOAV CHAUHAN Comment: Cigars, not cigarettes [facility] Essential hypertension (SNOMED CT 96310597) Active Condition [facility] Glucose intolerance Active Condition [facility] Nocturia due to benign prostatic hypertrophy Active Condition [facility] Health Maintenance (ICD-9-CM V65.9) Inactive Condition 04/26/2015 BELGICA MANCILLA [facility] Diagnosis: ICD-10-CM Z00.01 Encounter for general adult medical exam w abnormal findings Active 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 Knox [facility] Diagnosis: ICD-10-CM Z76.0 Encounter for issue of repeat prescription Active Diagnosis [facility] Medications Combined list of outpatient medications [...] S OF BREATH INHALA TION HOLD 07/17/2024 [id number] AFRICA CHAUHAN [address] [facility] [address] ALBUTEROL 90MCG/ACTUA T (CFC-F) INHL,ORAL,8 .5GM DOSE COUNTER INHALE 2 PUFFS BY INHALATI ON FOUR TIMES A DAY NEEDED FOR SHORTNES S OF BREATH INHALA TION DISCONT INUED 08/08/2023 [id number] 3 AFRICA CHAUHAN [address] [facility] APIXABAN 5MG TAB TAKE ONE TABLET BY MOUTH EVERY 12 HOURS TO PREVENT BLOOD CLOTS AND STROKE (ELIQUIS ) ORALLY ACTIVE 05/29/2024 [id number] MARIANO GARCIA [address] [facility] APIXABAN 5MG TAB TAKE ONE TABLET BY MOUTH EVERY 12 HOURS TO PREVENT BLOOD CLOTS AND STROKE (ELIQUIS ) ORALLY DISCONT INUED 05/09/2023 [id number] 3 MARIANO GARCIA 2022 180 [facility] CHOLECALCIF JONNA 25MCG (1,000UNIT) TAB TAKE FIVE TABLETS BY MOUTH QOD ORALLY ACTIVE AFRICA CHAUHAN 2016 [facility] FLUOCINONID E 0.1% CREAM,TOP APPLY A THIN LAYER TOPICALL Y TWICE A DAY NEEDED FOR RASH TOPICA LLY ACTIVE 12/13/2023 [id number] 3 AFRICA CHAUHAN 2022 60 [facility] FLUTICASONE 250MCG/SALM ETEROL 50MCG INHL,ORAL,D ISKUS,60 INHALE 1 PUFF BY INHALATI ON TWICE A DAY FOR COPD INHALA TION ACTIVE 07/17/2024 [id number] 4 AFRICA CHAUHAN 2023 3 [facility] FLUTICASONE 250MCG/SALM ETEROL 50MCG INHL,ORAL,D ISKUS,60 INHALE 1 PUFF BY INHALATI ON TWICE A DAY FOR COPD THIS REPLACES YOUR MOMETASO NE INHALA TION DISCONT INUED 08/08/2023 [id number] 4 AFRICA CHAUHAN 2022 3 [facility] FUROSEMIDE 20MG TAB TAKE ONE TABLET BY MOUTH THREE TIMES A WEEK FOR HEART FAILURE ORALLY ACTIVE 02/25/2024 [id number] 3 Hong DONAHUE 2022 39 [facility] FUROSEMIDE 20MG TAB TAKE ONE TABLET BY MOUTH EVERY OTHER DAY FOR HEART FAILURE ORALLY DISCONT INUED (EDIT) 08/13/2023 [id number] 3 AFRICA CHAUHAN 2022 45 [facility] FUROSEMIDE 20MG TAB TAKE ONE TABLET BY MOUTH EVERY MORNING FOR HEART FAILURE ORALLY DISCONT INUED 08/08/2023 [id number] 3 AFRICA CHAUHAN 2022 90 [facility] FUROSEMIDE 20MG TAB TAKE ONE TABLET BY MOUTH EVERY MORNING FOR HEART FAILURE ORALLY DISCONT INUED 11/16/2022 [id number] 3 AFRICA CHAUHAN [address] [facility] HYDROCHLORO THIAZIDE 12.5MG TAB TAKE ONE TABLET BY MOUTH EVERY DAY FOR BLOOD PRESSURE ORALLY DISCONT INUED 08/08/2023 [id number] 3 AFRICA CHAUHAN 2022 90 [facility] METOPROLOL SUCCINATE 100MG TAB,SA TAKE ONE AND ONE-HALF TABLETS BY MOUTH EVERY DAY ORALLY DISCONT INUED 11/16/2022 [id number] 3 AFRICA CHAUHAN [address] [facility] METOPROLOL SUCCINATE 50MG TAB,SA TAKE THREE TABLETS BY MOUTH EVERY DAY FOR BLOOD PRESSURE ORALLY DISCONT INUED 08/08/2023 [id number] 3 AFRICA CHAUHAN 2022 270 [facility] METOPROLOL TARTRATE 100MG TAB TAKE ONE TABLET BY MOUTH TWICE A DAY FOR BLOOD PRESSURE ORALLY ACTIVE 12/13/2023 [id number] 4 AFRICA CHAUHAN 2022 180 [facility] MOMETASONE FUROATE 220MCG/INHL INHL,ORAL,6 0 INHALE 1 PUFF BY MOUTH TWICE A DAY TO PREVENT TROUBLE BREATHIN G TWIST COVER ON AND OFF TO LOAD NEXT DOSERI NSE MOUTH AFTER USING * DO NOT WASH INHALER ORALLY DISCONT INUED 11/16/2022 [id number] 3 AFRICA CHAUHAN 2021 3 [facility] NIFEDIPINE (EQV-CC) 60MG TAB,SA TAKE ONE TABLET BY MOUTH EVERY DAY FOR BLOOD PRESSURE ORALLY DISCONT INUED BY PROVIDE R 08/08/2023 [id number] 3 AFRICA CHAUHAN 2022 90 [facility] NIFEDIPINE (EQV-CC) 60MG TAB,SA TAKE ONE TABLET BY MOUTH EVERY DAY FOR BLOOD PRESSURE ORALLY DISCONT INUED 09/11/2022 [id number] 3 AFRICA CHAUHAN 2022 90 [facility] NIFEDIPINE (EQV-CC) 90MG TAB,SA TAKE ONE TABLET BY MOUTH EVERY DAY FOR BLOOD PRESSURE ORALLY ACTIVE 07/17/2024 [id number] 4 AFRICA CHAUHAN 2023 90 [facility] NIFEDIPINE (EQV-CC) 90MG TAB,SA TAKE ONE TABLET BY MOUTH EVERY DAY FOR BLOOD PRESSURE INCREASE D DOSE PER CO-MANAG ED CARE INCREASE D DOSE PER CO-MANAG ED CARE ORALLY DISCONT INUED 12/13/2023 [id number] 4 AFRICA CHAUHAN 2022 90 [facility] POTASSIUM CHLORIDE 10MEQ TAB,SA TAKE ONE TABLET BY MOUTH THREE TIMES A WEEK FOR POTASSIU M SUPPLEME NT TAKE WITH FUROSEMI DE ORALLY ACTIVE 02/25/2024 [id number] 3 Hong DONAHUE A 2022 39 [facility] POTASSIUM CHLORIDE 10MEQ TAB,SA TAKE ONE TABLET BY MOUTH EVERY OTHER DAY FOR POTASSIU M SUPPLEME NT ORALLY DISCONT INUED (EDIT) 08/13/2023 [id number] 3 AFRICA CHAUHAN 2022 45 [facility] POTASSIUM CHLORIDE 10MEQ TAB,SA TAKE ONE TABLET BY MOUTH EVERY DAY FOR CONGESTI VE HEART FAILURE ORALLY DISCONT INUED 08/08/2023 [id number] 3 AFRICA CHAUHAN 2022 90 [facility] POTASSIUM CHLORIDE 10MEQ TAB,SA TAKE ONE TABLET BY MOUTH EVERY DAY FOR CONGESTI VE HEART FAILURE ORALLY DISCONT INUED 11/16/2022 [id number] 3 AFRICA CHAUHAN 2021 90 [facility] ROSUVASTATI N CA 20MG TAB TAKE ONE TABLET BY MOUTH AT BEDTIME FOR CORONARY ARTERY DISEASE ORALLY HOLD 07/17/2024 [id number] AFRICA CHAUHAN 2023 90 [facility] ROSUVASTATI N CA 20MG TAB TAKE ONE TABLET BY MOUTH AT BEDTIME FOR CORONARY ARTERY DISEASE ORALLY DISCONT INUED 08/08/2023 [id number] 4 AFRICA CHAUHAN [address] [facility] TAMSULOSIN HCL 0.4MG CAP TAKE ONE CAPSULE BY MOUTH EVERY EVENING FOR PROSTATE ORALLY ACTIVE 07/17/2024 [id number] 4 AFRICA CHAUHAN [address] [facility] Allergies, Adverse Reactions, Alerts Combined list of allergies from Department of Defense and Veterans Affairs facilities. It does not include entries that were removed or entered in error. Substance Category Reaction Severity Reaction type Status Date Reported Comments Source LISINOPRIL Propensity to adverse reactions to drug (finding) Cough active 0 [facility] Immunizations Combined list of available immunizations from the Department of [facility] and [facility] facilities. Immunization Series Date Given Administered By Site Reaction Lot Number CVX Code Drug Rn Wellness Status Comments Source COVID-19 ([facility]FE [facility]), MRNA, LNP-S, BIVALENT, PF, 30 MCG/0.3 ML DOSE [address] [facility] COVID-19 (LYFE Kitchen), MRNA, LNP-S, PF, 30 MCG/0.3 ML DOSE, JAMES-SUCROSE (AGES 12+ YEARS) [address] [facility] COVID-19 (LYFE Kitchen), MRNA, LNP-S, PF, 30 MCG/0.3 ML DOSE [address] [facility] ZOSTER RECOMBINANT [address] [facility] INFLUENZA VACCINE, QUADRIVALENT, ADJUVANTED [address] [facility] INFLUENZA, UNSPECIFIED FORMULATION [address] [facility] ZOSTER RECOMBINANT 1 [address] [facility] COVID-19 (LYFE Kitchen), MRNA, LNP-S, PF, 30 MCG/0.3 ML DOSE 2 [address] [facility] COVID-19 ([facility]FE Kitchen), MRNA, LNP-S, PF, 30 MCG/0.3 ML DOSE 1 [address] [facility] INFLUENZA VACCINE, QUADRIVALENT, ADJUVANTED [address] [facility] INFLUENZA, TRIVALENT, ADJUVANTED [address] [facility] INFLUENZA, SEASONAL, INJECTABLE [address] [facility] INFLUENZA, SEASONAL, INJECTABLE [address] [facility] INFLUENZA, TRIVALENT, ADJUVANTED [address] [facility] INFLUENZA, HIGH DOSE SEASONAL [address] [facility] PNEUMOCOCCAL POLYSACCHARID E PPV23 2016 33 complet ed [employer] , [id number], 06/03/18 [facility] TD (ADULT), 2 LF TETANUS TOXOID, PRESERVATIVE FREE, ADSORBED 2016 09 complet ed [employer] [id number], 12/19/18 [facility] INFLUENZA, HIGH DOSE SEASONAL [address] [facility] PNEUMOCOCCAL POLYSACCHARID E PPV23 [address] [facility] INFLUENZA, HIGH DOSE SEASONAL [address] [facility] PNEUMOCOCCAL CONJUGATE PCV 13 2015 133 complet ed [employer] M [facility] PNEUMOCOCCAL CONJUGATE PCV 13 [address] [facility] INFLUENZA, UNSPECIFIED FORMULATION [address] [facility] INFLUENZA, UNSPECIFIED FORMULATION [address] [facility] INFLUENZA, UNSPECIFIED FORMULATION [address] [facility] INFLUENZA, UNSPECIFIED FORMULATION [address] [facility] PNEUMOCOCCAL, UNSPECIFIED FORMULATION 2009 109 complet ed [employer],093 02, 011 [facility] TDAP [address] [facility] ZOSTER LIVE [address] [facility] TDAP [address] [facility] ZOSTER LIVE [address] [facility] Results Combined list of recent chemistry, hematology [...] Jul 17, 2023 04:23 PM Reporting Lab: [facility] [address] Performing Lab: [facility] [address] [place] [facility] URINALYS IS SPECIFIC GRAVITY OF URINE 1.006 1.003 - 1.035 07/16 Specimen Type: URINE No comment entered. Ordering Provider: TERRENCE CHAUHAN Report Released Date/Time: Jul 17, 2023 04:23 PM Reporting Lab: [facility] [address] Performing Lab: [facility] [address] [place] [facility] URINALYS IS BILIRUBIN. TOTAL [PRESENCE] IN URINE BY TEST STRIP NEGATIVE 07/16 Specimen Type: URINE No comment entered. Ordering Provider: TERRENCE CHAUHAN Report Released Date/Time: Jul 17, 2023 04:23 PM Reporting Lab: [facility] [address] Performing Lab: [facility] [address] [place] [facility] URINALYS IS KETONES [MASS/VOLU ME] IN URINE BY TEST STRIP NEGATIVE 07/16 Specimen Type: URINE No comment entered. Ordering Provider: TERRENCE CHAUHAN Report Released Date/Time: Jul 17, 2023 04:23 PM Reporting Lab: [facility] [address] Performing Lab: [facility] [address] [place] [facility] URINALYS IS GLUCOSE [MASS/VOLU ME] IN URINE BY TEST STRIP NEGATIVE 07/16 Specimen Type: URINE No comment entered. Ordering Provider: TERRENCE CHAUHAN Report Released Date/Time: Jul 17, 2023 04:23 PM Reporting Lab: [facility] [address] Performing Lab: [facility] [address] [place] [facility] URINALYS IS PROTEIN [MASS/VOLU ME] IN URINE BY TEST STRIP NEGATIVE 07/16 Specimen Type: URINE No comment entered. Ordering Provider: TERRENCE CHAUHAN Report Released Date/Time: Jul 17, 2023 04:23 PM Reporting Lab: [facility] [address] Performing Lab: [facility] [address] [place] [facility] URINALYS IS PH OF URINE BY TEST STRIP 7.0 5.0 - 8.0 07/16 Specimen Type: URINE No comment entered. Ordering Provider: TERRENCE CHAUHAN Report Released Date/Time: Jul 17, 2023 04:23 PM Reporting Lab: [facility] [address] Performing Lab: [facility] [address] [place] [facility] URINALYS IS LEUKOCYTES [#/AREA] IN URINE SEDIMENT BY MICROSCOPY HIGH POWER FIELD <1 0 - 7 07/16 Specimen Type: URINE No comment entered. Ordering Provider: TERRENCE CHAUHAN Report Released Date/Time: Jul 17, 2023 04:23 PM Reporting Lab: [facility] [address] Performing Lab: [facility] [address] [place] [facility] URINALYS IS BACTERIA [PRESENCE] IN URINE SEDIMENT BY LIGHT MICROSCOPY NONE SEEN 07/16 Specimen Type: URINE No comment entered. Ordering Provider: TERRENCE CHAUHAN Report Released Date/Time: Jul 17, 2023 04:23 PM Reporting Lab: [facility] [address] Performing Lab: [facility] [address] [place] [facility] URINALYS IS ERYTHROCYT ES [#/AREA] IN URINE SEDIMENT BY MICROSCOPY HIGH POWER FIELD <1 0 - 3 07/16 Specimen Type: URINE No comment entered. Ordering Provider: TERRENCE CHAUHAN Report Released Date/Time: Jul 17, 2023 04:23 PM Reporting Lab: [facility] [address] Performing Lab: [facility] [address] [place] [facility] URINALYS IS APPEARANCE OF URINE CLEAR 07/16 Specimen Type: URINE No comment entered. Ordering Provider: TERRENCE CHAUHAN Report Released Date/Time: Jul 17, 2023 04:23 PM Reporting Lab: [facility] [address] Performing Lab: [facility] [address] [place] [facility] URINALYS IS EPITHELIAL CELLS.SQUA MOUS [#/AREA] IN URINE SEDIMENT BY MICROSCOPY HIGH POWER FIELD NONE SEEN 07/16 Specimen Type: URINE No comment entered. Ordering Provider: TERRENCE CHAUHAN Report Released Date/Time: Jul 17, 2023 04:23 PM Reporting Lab: [facility] [address] Performing Lab: [facility] [address] [place] [facility] URINALYS IS HEMOGLOBIN [PRESENCE] IN URINE BY TEST STRIP NEGATIVE 07/16 Specimen Type: URINE No comment entered. Ordering Provider: TERRENCE CHAUHAN Report Released Date/Time: Jul 17, 2023 04:23 PM Reporting Lab: [facility] [address] Performing Lab: [facility] [address] [place] [facility] URINALYS IS NITRITE [PRESENCE] IN URINE BY TEST STRIP NEGATIVE 07/16 Specimen Type: URINE No comment entered. Ordering Provider: TERRENCE CHAUHAN Report Released Date/Time: Jul 17, 2023 04:23 PM Reporting Lab: [facility] [address] Performing Lab: [facility] [address] [place] [facility] URINALYS IS LEUKOCYTE ESTERASE [PRESENCE] IN URINE BY TEST STRIP NEGATIVE 07/16 Specimen Type: URINE No comment entered. Ordering Provider: TERRENCE CHAUHAN Report Released Date/Time: Jul 17, 2023 04:23 PM Reporting Lab: [facility] [address] Performing Lab: [facility] [address] [place] [facility] HEMOGLOB IN A1C HEMOGLOBIN A1C/HEMOGL [...] August 07, 2022 02:21 PM Reporting Lab: [facility] [address] Performing Lab: [facility] [address] [place] [facility] BASIC METABOLI C PANEL+MG CREATININE [MASS/VOLU ME] IN SERUM OR PLASMA 1.3 0.7 - 1.2 07/16 H Specimen Type: PLASMA No comment entered. Ordering Provider: TERRENCE CHAUHAN Report Released Date/Time: August 07, 2022 02:21 PM Reporting Lab: [facility] [address] Performing Lab: [facility] [address] [place] [facility] BASIC METABOLI C PANEL+MG UREA NITROGEN [MASS/VOLU ME] IN SERUM OR PLASMA 15 8 - 26 07/16 Specimen Type: PLASMA No comment entered. Ordering Provider: TERRENCE CHAUHAN Report Released Date/Time: August 07, 2022 02:21 PM Reporting Lab: [facility] [address] Performing Lab: [facility] [address] [place] [facility] BASIC METABOLI C PANEL+MG GLUCOSE [MASS/VOLU ME] IN SERUM OR PLASMA 84 70 - 100 07/16 Specimen Type: PLASMA No comment entered. Ordering Provider: TERRENCE CHAUHAN Report Released Date/Time: August 07, 2022 02:21 PM Reporting Lab: [facility] [address] Performing Lab: [facility] [address] [place] [facility] BASIC METABOLI C PANEL+MG SODIUM [MOLES/VOL UME] IN SERUM OR PLASMA 137 136 - 145 07/16 Specimen Type: PLASMA No comment entered. Ordering Provider: TERRENCE CHAUHAN Report Released Date/Time: August 07, 2022 02:21 PM Reporting Lab: [facility] [address] Performing Lab: [facility] [address] [place] [facility] BASIC METABOLI C PANEL+MG POTASSIUM [MOLES/VOL UME] IN SERUM OR PLASMA 4.6 3.5 - 5.1 07/16 Specimen Type: PLASMA No comment entered. Ordering Provider: TERRENCE CHAUHAN Report Released Date/Time: August 07, 2022 02:21 PM Reporting Lab: [facility] [address] Performing Lab: [facility] [address] [place] [facility] BASIC METABOLI C PANEL+MG CHLORIDE [MOLES/VOL UME] IN SERUM OR PLASMA 105 98 - 107 07/16 Specimen Type: PLASMA No comment entered. Ordering Provider: TERRENCE CHAUHAN Report Released Date/Time: August 07, 2022 02:21 PM Reporting Lab: [facility] [address] Performing Lab: [facility] [address] [place] [facility] BASIC METABOLI C PANEL+MG CARBON DIOXIDE, TOTAL [MOLES/VOL UME] IN SERUM OR PLASMA 24 22 - 29 07/16 Specimen Type: PLASMA No comment entered. Ordering Provider: TERRENCE CHAUHAN Report Released Date/Time: August 07, 2022 02:21 PM Reporting Lab: [facility] [address] Performing Lab: [facility] [address] [place] [facility] BASIC METABOLI C PANEL+MG CALCIUM [MASS/VOLU ME] IN SERUM OR PLASMA 8.9 8.4 - 10.2 07/16 Specimen Type: PLASMA No comment entered. Ordering Provider: TERRENCE CHAUHAN Report Released Date/Time: August 07, 2022 02:21 PM Reporting Lab: [facility] [address] Performing Lab: [facility] [address] [place] [facility] BASIC METABOLI C PANEL+MG MAGNESIUM [MASS/VOLU ME] IN SERUM OR PLASMA 2.1 1.6 - 2.6 07/16 Specimen Type: PLASMA No comment entered. Ordering Provider: TERRENCE CHAUHAN Report Released Date/Time: August 07, 2022 02:21 PM Reporting Lab: [facility] [address] Performing Lab: [facility] [address] [place] [facility] BASIC METABOLI C PANEL+MG ANION GAP IN SERUM OR PLASMA 8 5 - 15 07/16 Specimen Type: PLASMA No comment entered. Ordering Provider: TERRENCE CHAUHAN Report Released Date/Time: August 07, 2022 02:21 PM Reporting Lab: [facility] [address] Performing Lab: [facility] [address] [place] [facility] BASIC METABOLI C PANEL+MG GLOMERULAR FILTRATION RATE/1.73 SQ M.PREDICTE D [VOLUME RATE/AREA] IN SERUM, PLASMA OR BLOOD BY CREATININE -BASED FORMULA (CKD-EPI 2020) 56 60 07/16 L Specimen Type: PLASMA No comment entered. Ordering Provider: TERRENCE CHAUHAN Report Released Date/Time: August 07, 2022 02:21 PM Reporting Lab: [facility] [address] Performing Lab: [facility] [address] [place] [facility] CBC LEUKOCYTES [#/VOLUME] IN BLOOD BY AUTOMATED COUNT 8.72 4.0 - 11.0 07/16 Specimen Type: BLOOD No comment entered. Ordering Provider: TERRENCE CHAUHAN Report Released Date/Time: August 07, 2022 02:21 PM Reporting Lab: [facility] [address] Performing Lab: [facility] [address] [place] [facility] CBC ERYTHROCYT ES [#/VOLUME] IN BLOOD BY AUTOMATED COUNT 4.11 4.6 - 6.2 07/16 L Specimen Type: BLOOD No comment entered. Ordering Provider: TERRENCE CHAUHAN Report Released Date/Time: August 07, 2022 02:21 PM Reporting Lab: [facility] [address] Performing Lab: [facility] [address] [place] [facility] CBC HEMOGLOBIN [MASS/VOLU ME] IN BLOOD 13.4 13.5 - 17.9 07/16 L Specimen Type: BLOOD No comment entered. Ordering Provider: TERRENCE CHAUHAN Report Released Date/Time: August 07, 2022 02:21 PM Reporting Lab: [facility] [address] Performing Lab: [facility] [address] [place] [facility] CBC HEMATOCRIT [VOLUME FRACTION] OF BLOOD BY AUTOMATED COUNT 39.7 41 - 54 07/16 L Specimen Type: BLOOD No comment entered. Ordering Provider: TERRENCE CHAUHAN Report Released Date/Time: August 07, 2022 02:21 PM Reporting Lab: [facility] [address] Performing Lab: [facility] [address] [place] [facility] CBC MCV [ENTITIC VOLUME] BY AUTOMATED COUNT 96.6 80 - 100 07/16 Specimen Type: BLOOD No comment entered. Ordering Provider: TERRENCE CHAUHAN Report Released Date/Time: August 07, 2022 02:21 PM Reporting Lab: [facility] [address] Performing Lab: [facility] [address] [place] [facility] CBC MCH [ENTITIC MASS] BY AUTOMATED COUNT 32.6 27 - 33 07/16 Specimen Type: BLOOD No comment entered. Ordering Provider: TERRENCE CHAUHAN Report Released Date/Time: August 07, 2022 02:21 PM Reporting Lab: [facility] [address] Performing Lab: [facility] [address] [place] [facility] CBC MCHC [MASS/VOLU ME] BY AUTOMATED COUNT 33.8 32.0 - 37.5 07/16 Specimen Type: BLOOD No comment entered. Ordering Provider: TERRENCE CHAUHAN Report Released Date/Time: August 07, 2022 02:21 PM Reporting Lab: [facility] [address] Performing Lab: [facility] [address] [place] [facility] CBC PLATELETS [#/VOLUME] IN BLOOD BY AUTOMATED COUNT 159 150 - 400 07/16 Specimen Type: BLOOD No comment entered. Ordering Provider: TERRENCE CHAUHAN Report Released Date/Time: August 07, 2022 02:21 PM Reporting Lab: [facility] [address] Performing Lab: [facility] [address] [place] [facility] CBC PLATELET MEAN VOLUME [ENTITIC VOLUME] IN BLOOD BY AUTOMATED COUNT 9.6 7.4 - 10.4 07/16 Specimen Type: BLOOD No comment entered. Ordering Provider: TERRENCE CHAUHAN Report Released Date/Time: August 07, 2022 02:21 PM Reporting Lab: [facility] [address] Performing Lab: [facility] [address] [facility] IS [facility] CBC ERYTHROCYT E DISTRIBUTI ON WIDTH [RATIO] BY AUTOMATED COUNT 14.1 11.5 - 14.5 07/16 Specimen Type: BLOOD No comment entered. Ordering Provider: TERRENCE CHAUHAN Report Released Date/Time: August 07, 2022 02:21 PM Reporting Lab: [facility] [address] Performing Lab: [facility] [address] [facility] IS [facility] LIVER FUNCTION TESTS BILIRUBIN. TOTAL [MASS/VOLU ME] IN SERUM OR PLASMA 0.8 0.2 - 1.2 07/16 Specimen Type: PLASMA No comment entered. Ordering Provider: TERRENCE CHAUHAN Report Released Date/Time: August 07, 2022 02:21 PM Reporting Lab: [facility] [address] Performing Lab: [facility] [address] [place] [facility] LIVER FUNCTION TESTS ALKALINE PHOSPHATAS E [ENZYMATIC ACTIVITY/V OLUME] IN SERUM OR PLASMA 52 40 - 150 07/16 Specimen Type: PLASMA No comment entered. Ordering Provider: TERRENCE CHAUHAN Report Released Date/Time: August 07, 2022 02:21 PM Reporting Lab: [facility] [address] Performing Lab: [facility] [address] [place] [facility] LIVER FUNCTION TESTS ALANINE AMINOTRANS FERASE [ENZYMATIC ACTIVITY/V OLUME] IN SERUM OR PLASMA 20 <55 - 55 07/16 Specimen Type: PLASMA No comment entered. Ordering Provider: TERRENCE CHAUHAN Report Released Date/Time: August 07, 2022 02:21 PM Reporting Lab: [facility] [address] Performing Lab: [facility] [address] [place] [facility] LIVER FUNCTION TESTS ASPARTATE AMINOTRANS FERASE [ENZYMATIC ACTIVITY/V OLUME] IN SERUM OR PLASMA 19 <34 - 34 07/16 Specimen Type: PLASMA No comment entered. Ordering Provider: TERRENCE CHAUHAN Report Released Date/Time: August 07, 2022 02:21 PM Reporting Lab: [facility] [address] Performing Lab: [facility] [address] [place] [facility] LIVER FUNCTION TESTS GAMMA GLUTAMYL TRANSFERAS E [ENZYMATIC ACTIVITY/V OLUME] IN SERUM OR PLASMA 38 <64 - 64 07/16 Specimen Type: PLASMA No comment entered. Ordering Provider: TERRENCE CHAUHAN Report Released Date/Time: August 07, 2022 02:21 PM Reporting Lab: [facility] [address] Performing Lab: [facility] [address] [place] [facility] PSA PROSTATE SPECIFIC AG [MASS/VOLU ME] IN SERUM OR PLASMA 3.84 <4.00 - 4.00 07/16 Specimen Type: SERUM No comment entered. Ordering Provider: TERRENCE CHAUHAN Report Released Date/Time: August 07, 2022 02:21 PM Reporting Lab: [facility] [address] Performing Lab: [facility] [address] [place] [facility] CREATINI NE(INCLU SATHYA EGFR) CREATININE [MASS/VOLU ME] IN SERUM OR PLASMA 1.2 0.7 - 1.2 04/16 Specimen Type: PLASMA No comment entered. Ordering Provider: HUYEN HYLTON Report Released Date/Time: Mar 07, 2023 02:00 PM Reporting Lab: [facility] [address] Performing Lab: [facility] [address] [place] [facility] CREATINI NE(INCLU SATHYA EGFR) GLOMERULAR FILTRATION RATE/1.73 SQ M.PREDICTE D [VOLUME RATE/AREA] IN SERUM, PLASMA OR BLOOD BY CREATININE -BASED FORMULA (CKD-EPI 2020) 62 60 04/16 Specimen Type: PLASMA No comment entered. Ordering Provider: HUYEN HYLTON Report Released Date/Time: Mar 07, 2023 02:00 PM Reporting Lab: [facility] [address] Performing Lab: [place] [address] [place] [facility] AST/SGOT ASPARTATE AMINOTRANS FERASE [ENZYMATIC ACTIVITY/V OLUME] IN SERUM OR PLASMA 22 <34 - 34 04/16 Specimen Type: PLASMA No comment entered. Ordering Provider: HUYEN HYLTON Report Released Date/Time: Mar 07, 2023 02:00 PM Reporting Lab: [facility] [address] Performing Lab: [facility] [address] [place] [facility] CBC LEUKOCYTES [#/VOLUME] IN BLOOD BY AUTOMATED COUNT 8.06 4.0 - 11.0 04/16 Specimen Type: BLOOD No comment entered. Ordering Provider: HUYEN HYLTON Report Released Date/Time: Mar 07, 2023 02:00 PM Reporting Lab: [facility] [address] Performing Lab: [facility] [address] [place] [facility] CBC ERYTHROCYT ES [#/VOLUME] IN BLOOD BY AUTOMATED COUNT 4.03 4.6 - 6.2 04/16 L Specimen Type: BLOOD No comment entered. Ordering Provider: HUYEN HYLTON Report Released Date/Time: Mar 07, 2023 02:00 PM Reporting Lab: [facility] [address] Performing Lab: [facility] [address] [place] [facility] CBC HEMOGLOBIN [MASS/VOLU ME] IN BLOOD 13.1 13.5 - 17.9 04/16 L Specimen Type: BLOOD No comment entered. Ordering Provider: HUYEN HYLTON Report Released Date/Time: Mar 07, 2023 02:00 PM Reporting Lab: [facility] [address] Performing Lab: [place] [address] [place] [facility] CBC HEMATOCRIT [VOLUME FRACTION] OF BLOOD BY AUTOMATED COUNT 38.9 41 - 54 04/16 L Specimen Type: BLOOD No comment entered. Ordering Provider: HUYEN HYLTON Report Released Date/Time: Mar 07, 2023 02:00 PM Reporting Lab: [facility] [address] Performing Lab: [place] [address] [place] [facility] CBC MCV [ENTITIC VOLUME] BY AUTOMATED COUNT 96.5 80 - 100 04/16 Specimen Type: BLOOD No comment entered. Ordering Provider: HUYEN HYLTON Report Released Date/Time: Mar 07, 2023 02:00 PM Reporting Lab: [facility] [address] Performing Lab: [facility] [address] [place] [facility] CBC MCH [ENTITIC MASS] BY AUTOMATED COUNT 32.5 27 - 33 04/16 Specimen Type: BLOOD No comment entered. Ordering Provider: HUYEN HYLTON Report Released Date/Time: Mar 07, 2023 02:00 PM Reporting Lab: [facility] [address] Performing Lab: [facility] [address] [place] [facility] CBC MCHC [MASS/VOLU ME] BY AUTOMATED COUNT 33.7 32.0 - 37.5 04/16 Specimen Type: BLOOD No comment entered. Ordering Provider: HUYEN HYLTON Report Released Date/Time: Mar 07, 2023 02:00 PM Reporting Lab: [facility] [address] Performing Lab: [facility] [address] [place] [facility] CBC PLATELETS [#/VOLUME] IN BLOOD BY AUTOMATED COUNT 157 150 - 400 04/16 Specimen Type: BLOOD No comment entered. Ordering Provider: HUYEN HYLTON Report Released Date/Time: Mar 07, 2023 02:00 PM Reporting Lab: [facility] [address] Performing Lab: [facility] [address] [facility] CBC PLATELET MEAN VOLUME [ENTITIC VOLUME] IN BLOOD BY AUTOMATED COUNT 9.7 7.4 - 10.4 04/16 Specimen Type: BLOOD No comment entered. Ordering Provider: HUYEN HYLTON Report Released Date/Time: Mar 07, 2023 02:00 PM Reporting Lab: [facility] [address] Performing Lab: [facility] [address] [facility] CBC ERYTHROCYT E DISTRIBUTI ON WIDTH [RATIO] BY AUTOMATED COUNT 14.5 11.5 - 14.5 04/16 Specimen Type: BLOOD No comment entered. Ordering Provider: HUYEN HYLTON Report Released Date/Time: Mar 07, 2023 02:00 PM Reporting Lab: [facility] [address] Performing Lab: [facility] [address] [facility] ALT/SGPT ALANINE AMINOTRANS FERASE [ENZYMATIC ACTIVITY/V OLUME] IN SERUM OR PLASMA 19 <55 - 55 04/16 Specimen Type: PLASMA No comment entered. Ordering Provider: HUYEN HYLTON Report Released Date/Time: Mar 07, 2023 02:00 PM Reporting Lab: [facility] [address] Performing Lab: [facility] [address] [facility] IS [facility] Vital Signs Combined list of [...] DC Date Status Disposition Source [place] [facility] Outpatient Encounter [id number] 04/[address] [facility] [facility] [place] VISIT SF MDM [id number] Diagnos is: ICD-10- CM Z76.0 Encount er for issue of repeat prescri ption<b r/> AICHA GALLEGOS 05/09 [facility] Outpatient Encounter [id number] 05/09 [facility] [place] [facility] Outpatient Encounter [id number] 06/[address] [facility] [place] [facility] Outpatient Encounter [id number] 07/[address] [facility] [place] [facility] OFFICE O/P EST MOD 30-39 MIN [id number] Diagnos is: ICD-10- CM Z00.01 Encount er for general adult medical exam w abnorma l finding s
DANETTE LIN LY E 08/07 [facility] [place] [facility] Outpatient Encounter [id number] 08/[address] [facility] [place] [facility] Outpatient Encounter [id number] OLESYA ROGERS 08/[address] [facility] [place] [facility] Outpatient Encounter [id number] OLESYA ROGERS 08/[address] [facility] [place] [facility] Outpatient Encounter [id number] Ana CHAUHAN 09/[address] [facility] [place] [facility] Outpatient Encounter [id number] 11/06 [place] [facility] [place] [facility] Outpatient Encounter [id number] 12/08 [place] [facility] [place] [facility] Outpatient Encounter [id number] 12/12 [place] [facility] [place] [facility] Outpatient Encounter [id number] 01/17 [place] [place] [facility] Outpatient Encounter [id number] 02/19 [place] [facility] [place] [facility] Outpatient Encounter [id number] 02/24 [place] [facility] [place] [facility] Outpatient Encounter [id number] 03/[address] 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
ELLEN GARCIA 05/[address] [facility] [place] [facility] OFFICE O/P EST MOD 30 MIN [id number] Diagnos is: ICD-10- CM Z00.01 Encount er for general adult medical exam w abnorma l finding s
Ana CHAUHAN 07/[address] [facility] [place] [facility] Outpatient Encounter [id number] 07/[address] [facility] Social History Combined list of available smoking, tobacco, and other social history from [employer] and [facility] Affairs facilities. Social History Type Response Date Comment Sourc e Tobacco smoking status NHIS MT-TOBACCO FORMER USER 07/17/2023 [facility] History of tobacco use MT-TOBACCO QUIT 1 TO < 5 YRS 07/17/2023 [facility] History of tobacco use MT-TOBACCO QUIT 1 TO < 5 YRS 08/07/2022 [facility] History of tobacco use MT-TOBACCO FORMER USER 10/16/2020 [facility] History of tobacco use MT-TOBACCO USE CO UNSEL NO 03/29/2019 [facility] History of tobacco use VA-TOBACCO USE WI 30 MIN OF WAKEUP 02/17/2018 [facility] History of tobacco use CURRENT TOBACCO USER 02/12/2017 [facility] History of tobacco use CURRENT TOBACCO USER 04/25/2015 [facility] History of tobacco use CURRENT TOBACCO USER 04/21/2014 [facility] History of tobacco use CURRENT TOBACCO USER 04/20/2013 [facility] History of tobacco use CURRENT TOBACCO USER 03/20/2012 [facility] History of tobacco use CURRENT TOBACCO USER 02/06/2011 [facility] History of tobacco use CURRENT TOBACCO USER 01/02/2010 [facility]
== END 2023-09-05 07:57 | disposition home or self-care (01) ==
LOC: WOUND 07:56
PROVIDERS: PCP Family Medicine; Visit Provider Nurse Practitioner Family
DX: L02.212 Cutaneous abscess of back [any part, except buttock and flank] (principal)
CPT/HCPCS: G0463

== ENCOUNTER 2023-09-09 14:55 | Outpatient (CLI) | payer MEDICARE, BC, SELFPAY | END 2023-09-09 14:56 | disposition home or self-care (01) | LOC: WOUND 14:55 | PROVIDERS: PCP Family Medicine; Visit Provider Nurse Practitioner Family | DX: L02.212 Cutaneous abscess of back [any part, except buttock and flank] (principal) | CPT/HCPCS: 11042 ==

== ENCOUNTER 2023-09-15 10:14 | Outpatient (CLI) | payer MEDICARE, BC, SELFPAY ==
--- OUTSIDE RECORDS SUMMARY | 2023-09-15 10:17 | XMS_ITS | Clinical Summary ---
Author Organization [employer] [facility] [employer] [facility] Address [place], [place] [address] Care Team Providers Care Co Founder Name Role Phone Klever Monte MD Primary Care Provider [phone] Allergies Active Allergy Reactions Criticality Noted Date Comments Lisinopril Cough 03/05/2010 Medications Medication Sig Dispensed Refills Start Date End Date Status albuterol HFA (PRO-AIR; VENTOLIN; PROVENTIL) 90 mcg/actuation inhalerIndications:P anlobular emphysema (HC) Inhale 1-2 Puffs by mouth every 4 hours if needed (cough or wheezing). 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 180 Tablet 3 11/06/2022 Active fluocinonide 0.05% topical (LIDEX) 0.05 % creamIndications:Cm d eczema Apply topically to affected area(s) two times daily. 30 g 2 11/06/2022 Active rosuvastatin (CRESTOR) 20 mg tabletIndications:Ce rebrovascular accident (CVA) due to thrombosis of left anterior cerebral artery (HC) Take 1 Tablet (20 mg) by mouth at bedtime. 90 Tablet 3 11/06/2022 Active apixaban (ELIQUIS) 5 mg tabletIndications:Pe rmanent atrial fibrillation with rapid ventricular response (HC),Cerebrovascular accident (CVA) due to thrombosis of left anterior cerebral artery (HC) Take 1 Tablet (5 mg) by mouth two times daily. 180 Tablet 3 11/06/2022 Active NIFEdipine (PROCARDIA XL) 90 mg extended-release tabletIndications:Pe rmanent atrial fibrillation with rapid ventricular response (HC) Take 1 Tablet (90 mg) by mouth once daily before a meal. 90 Tablet 3 11/06/2022 Active fluticasone propion-salmeteroL (ADVAIR) 250-50 mcg/Dose diskus inhaler Inhale 1 Puff by mouth every 12 hours. Active furosemide (LASIX) 20 mg tabletIndications:Ch ronic diastolic congestive heart failure (HC) Lasix to 20 mg on Friday, Friday and Friday. 45 Tablet 3 02/19/2023 Active potassium chloride 10 mEq extended-release tablet (part/cryst)Indicati ons:Chronic diastolic congestive heart failure (HC) Potassium 10 meq on Friday, Friday and Friday. 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 LLE angiogram 2. 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 Panlobular emphysema 10/21/2018 COPD exacerbation 09/09/2018 [...] Department Care Team Description 08/05/2023 Lab Requisition [facility] [phone] Unknown, Doctor 08/04/2023 8:35 AM CDT Office Visit [facility] [address] [place] [address] Jena Pascual PA Follow Up (Boil) 08/04/2023 Travel 08/01/2023 8:35 AM CDT Office Visit [facility] [address] [place] [address] Jena Pascual PA Derm Problem 08/01/2023 Travel [...] T Respiratory Rate 18 03/17/2023 3:35 PM FABRICATION SUPERVISOR Oxygen Saturation 96% 08/04/2023 8:35 AM CDT Inhaled Oxygen Concentration - - Weight 90.7 kg (200 lb) 08/04/2023 8:35 AM CDT Height 190.5 cm (6' 3) 03/17/2023 2:07 PM FABRICATION SUPERVISOR Body Mass Index 25 03/17/2023 2:07 PM FABRICATION SUPERVISOR Plan of Treatment Health Maintenance Due [...] back ANTI HCV Routine 05/16/2021 3:20 PM FABRICATION SUPERVISOR Need for hepatitis C screening test CT CHEST WO Routine 08/29/2010 4:53 PM CDT Pulmonary nodules from Last 3 Months or Most Recently Relevant to Health Maintenance Results * LAB TRACKING EVENT (08/05/2023 2:01 PM CDT) Other (Other) Client Collect / Unknown 08/05/2023 2:01 PM CDT 08/05/2023 9:37 PM CDT Doctor Unknown LAB BILL ONLY [facility] [address] [place] [address], * PATH TISSUE EXAM (08/05/2023 2:01 PM CDT) Case Report Pathology Report ?Case: [id number] ? Authorizing Provider: ??Unknown, Doctor ?Collected: ? 08/05/2023 1401 ? Ordering Location: ? [facility] ?Received: ?08/06/2023 1013 ? Pathologist: ? Jose Rinaldi MD ? Specimen: ?Back ? 08/07/2023 4:47 PM CDT [facility] Final Diagnosis A) SKIN, BACK, CYST, EXCISION: 1. Epidermoid cyst 2. Negative for dysplasia or malignancy 08/07/2023 4:47 PM CDT [facility] Clinical Information back cyst 08/07/2023 4:47 PM CDT [facility] Gross Description A) Received in formalin, labeled with the patient's name and date of , is a 1.5 x 1.1 x 0.3 cm aggregate of pale-garcia cyst wall fragments admixed with garcia-white soft, friable cyst contents. ??The specimen is filtered and submitted entirely in 1 cassette. [facility] 08/06/2023 08/07/2023 4:47 PM CDT [facility] Microscopic Description The final diagnosis is based on microscopic examination of appropriate sections of all specimens. 08/07/2023 4:47 PM CDT [facility] Additional Information Interpreted at [facility] - [address], [place] [address] 08/07/2023 4:47 PM CDT [facility] Other (Back) 08/05/2023 2:01 PM CDT 08/06/2023 10:13 AM CDT Doctor Unknown PATHOLOGY/CYTOLOGY [facility] [address] [place] [address], * AEROBIC BACTERIAL CULTURE, STAIN (08/01/2023 9:30 AM CDT) CULTURE No Growth. 08/03/2023 3:00 PM CDT [facility] GRAM STAIN 4+ RBCs 08/03/2023 3:00 PM CDT [facility] GRAM STAIN 1+ PMNs 08/03/2023 3:00 PM CDT [facility] GRAM STAIN No Epithelial cells 08/03/2023 3:00 PM CDT [facility] GRAM STAIN 4+ Gram Positive Cocci 08/03/2023 3:00 PM CDT [facility] GRAM STAIN 3+ Gram Negative Bacilli 08/03/2023 3:00 PM CDT [facility] Other (Other) Non-Blood / Unknown 08/01/2023 9:30 AM CDT 08/01/2023 9:31 AM CDT Jena RICHARDSON MICROBIOLOGY [facility] [address] [place] [address], * ANTI HCV (05/16/2021 3:20 PM FABRICATION SUPERVISOR) HEPATITIS C ANTIBODY Non-React edelmira Non-React edelmira 05/17/2021 1:21 AM FABRICATION SUPERVISOR [facility] Comment:Antibodies to HCV no t detected; does not exclude the possibility of exposure to HCV. Blood BLOOD SPECIMEN / Unknown Venipuncture / Unknown 05/16/2021 3:20 PM FABRICATION SUPERVISOR 05/16/2021 3:25 PM FABRICATION SUPERVISOR Zak Garcia MD SEND OUTS Performing Organization Address City/[facility]/ZIP Co de Phone Number [facility] [address] [place] [address], * CT CHEST WO CONTRAST (08/29/2010 4:53 [...] Comments Code Status Discussion: Discussed Care Teams Co Founder Relationship Specialty Start Date End Date Klever Monte MD [address] [place] [address] PCP - General Family Practice 06/12/22
--- OUTSIDE RECORDS SUMMARY | 2023-09-15 10:17 | XMS_ITS | Continuity of Care Document ---
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 It does not include entries that were removed or entered in error. Problem Status Onset Date Problem Type Date of Resolution Comments Source CVD - Cerebrovascular Disease ([facility] [id number]) Active 03/19/20 20 Condition May 01, 2020 Entered By: YOAV CHAUHAN Comment: 03/19/20: L MCA CVA, Admit ANW. Cardio-embol ic d/t Warfarin DC [facility] CAD - Coronary Artery Disease ([facility] [id number]) Active 01/27/20 20 Condition Mar 13, 2020 Entered By: YOAV CHAUHAN Comment: 01/27/20: LAD and Dx stented w/SATHYA at [facility]. Plavix +ASA thru 01/26/21 [facility] Peripheral arterial insufficiency Active 01/21/20 20 Condition Mar 13, 2020 Entered By: YOAV CHAUHAN Comment: 01/21/20: L femoral Art occlusion per [facility]-->Fem -Tibial bypass planned [facility] Allergic rhinitis (SNOMED CT 26697749) Active Condition [facility] Atrial fibrillation (SNOMED CT 07391199) Active Condition Apr 26, 2015 Entered By: YOAV CHAUHAN Comment: Warfarin through Miryam Rodriguez [facility] Co-Managed Care Active Condition Dec 25, 2017 Entered By: YOAV CHAUHAN Comment: Dr Garcia, Michael [place], F: [phone] , [facility] COPD - Chronic Obstructive Pulmonary Disease ([facility] [id number]) Active Condition Dec 25, 2017 Entered By: YOAV CHAUHAN Comment: Mometasone & Albuterol MDI's [facility] [place] of toe Active Condition Sep 08, 2019 Entered By: YOAV CHAUHAN Comment: R middle toe [facility] Current smoker Active Condition Apr 082015 Entered By: YOAV CHAUHAN Comment: Cigars, not cigarettes [facility] Essential hypertension (SNOMED CT 05021195) Active Condition [facility] Glucose intolerance Active Condition [facility] Nocturia due to benign prostatic hypertrophy Active Condition 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 Active Diagnosis [facility] Lisette [facility] Diagnosis: ICD-10-CM Z76.0 Encounter for issue of repeat prescription Active Diagnosis [facility] Medications Combined list of outpatient [...] DAY NEEDED FOR SHORTNES S OF BREATH RESPIR ATORY (INHAL ATION) HOLD 07/17/2024 [id number] AFRICA CHAUHAN 2023 2 [facility] ALBUTEROL 90MCG/ACTUA T (CFC-F) INHL,ORAL,8 .5GM DOSE COUNTER INHALE 2 PUFFS BY INHALATI ON FOUR TIMES A DAY NEEDED FOR SHORTNES S OF BREATH RESPIR ATORY (INHAL ATION) DISCONT INUED 08/08/2023 [id number] 3 AFRICA CHAUHAN [address] [facility] APIXABAN 5MG TAB TAKE ONE TABLET BY MOUTH EVERY 12 HOURS TO PREVENT BLOOD CLOTS AND STROKE (ELIQUIS ) ORAL ACTIVE 05/29/2024 [id number] 4 MARIANO GARCIA [address] [facility] APIXABAN 5MG TAB TAKE ONE TABLET BY MOUTH EVERY 12 HOURS TO PREVENT BLOOD CLOTS AND STROKE (ELIQUIS ) ORAL DISCONT INUED 05/09/2023 [id number] 3 MARIANO GARCIA 2022 180 [place] [facility] CHOLECALCIF JONNA 25MCG (1,000UNIT) TAB TAKE FIVE TABLETS BY MOUTH QOD ORAL ACTIVE AFRICA CHAUHAN 2016 [facility] [facility] FLUOCINONID E 0.1% CREAM,TOP APPLY A THIN LAYER TOPICALL Y TWICE A DAY NEEDED FOR RASH TOPICA L ACTIVE 12/13/2023 [id number] 3 AFRICA CHAUHAN 2022 60 [facility] FLUTICASONE 250MCG/SALM ETEROL 50MCG INHL,ORAL,D ISKUS,60 INHALE 1 PUFF BY INHALATI ON TWICE A DAY FOR COPD RESPIR ATORY (INHAL ATION) ACTIVE 07/17/2024 [id number] 4 AFRICA CHAUHAN 2023 3 [facility] FLUTICASONE 250MCG/SALM ETEROL 50MCG INHL,ORAL,D ISKUS,60 INHALE 1 PUFF BY INHALATI ON TWICE A DAY FOR COPD THIS REPLACES YOUR MOMETASO NE RESPIR ATORY (INHAL ATION) DISCONT INUED 08/08/2023 [id number] 4 AFRICA CHAUHAN 2022 3 [facility] FUROSEMIDE 20MG TAB TAKE ONE TABLET BY MOUTH THREE TIMES A WEEK FOR HEART FAILURE ORAL ACTIVE 02/25/2024 [id number] 3 Hong DONAHUE 2022 39 [facility] FUROSEMIDE 20MG TAB TAKE ONE TABLET BY MOUTH EVERY OTHER DAY FOR HEART FAILURE ORAL DISCONT INUED (EDIT) 08/13/2023 [id number] 3 AFRICA CHAUHAN 2022 45 [facility] FUROSEMIDE 20MG TAB TAKE ONE TABLET BY MOUTH EVERY MORNING FOR HEART FAILURE ORAL DISCONT INUED 08/08/2023 [id number] 3 AFRICA CHAUHAN [place] 2022 90 [facility] HYDROCHLORO THIAZIDE 12.5MG TAB TAKE ONE TABLET BY MOUTH EVERY DAY FOR BLOOD PRESSURE ORAL DISCONT INUED 08/08/2023 [id number] TIEN AFRICA LATESHA 2022 90 [facility] METOPROLOL SUCCINATE 100MG TAB,SA TAKE ONE AND ONE-HALF TABLETS BY MOUTH EVERY DAY ORAL DISCONT INUED 11/16/2022 [id number] 3 CHAUHAN AFRICA LATESHA 2021 135 [facility] METOPROLOL SUCCINATE 50MG TAB,SA TAKE THREE TABLETS BY MOUTH EVERY DAY FOR BLOOD PRESSURE ORAL DISCONT INUED 08/08/2023 [id number] CHAUHAN, AFRICA LATESHA 2022 270 [facility] METOPROLOL TARTRATE 100MG TAB TAKE ONE TABLET BY MOUTH TWICE A DAY FOR BLOOD PRESSURE ORAL ACTIVE 12/13/2023 [id number] CHAUHAN, AFRICA LATESHA 2022 180 [facility] NIFEDIPINE (EQV-CC) 60MG TAB,SA TAKE ONE TABLET BY MOUTH EVERY DAY FOR BLOOD PRESSURE ORAL DISCONT INUED BY PROVIDE R 08/08/2023 [id number] 3 CHAUHAN, AFRICA LATESHA 2022 90 [facility] NIFEDIPINE (EQV-CC) 60MG TAB,SA TAKE ONE TABLET BY MOUTH EVERY DAY FOR BLOOD PRESSURE ORAL DISCONT INUED 09/11/2022 [id number] 3 CHAUHAN, AFRICA LATESHA 2022 90 [facility] NIFEDIPINE (EQV-CC) 90MG TAB,SA TAKE ONE TABLET BY MOUTH EVERY DAY FOR BLOOD PRESSURE ORAL ACTIVE 07/17/2024 [id number] 4 AFRICA CHAUHAN 2023 90 [facility] NIFEDIPINE (EQV-CC) 90MG TAB,SA TAKE ONE TABLET BY MOUTH EVERY DAY FOR BLOOD PRESSURE INCREASE D DOSE PER CO-MANAG ED CARE INCREASE D DOSE PER CO-MANAG ED CARE ORAL DISCONT INUED 12/13/2023 [id number] 4 AFRICA CHAUHAN 2022 90 [place] [facility] [facility] POTASSIUM CHLORIDE 10MEQ TAB,SA TAKE ONE TABLET BY MOUTH THREE TIMES A WEEK FOR POTRICARDOIU M SUPPLEME NT TAKE WITH FUROSEMI DE ORAL ACTIVE 02/25/2024 [id number] 3 Hong DONAHUE UCES[facility] A 2022 39 [facility] POTASSIUM CHLORIDE 10MEQ TAB,SA TAKE ONE TABLET BY MOUTH EVERY OTHER DAY FOR KARLOSIU M SUPPLEME NT ORAL DISCONT INUED (EDIT) 08/13/2023 [id number] 3 AFRICA CHAUHAN 2022 45 [facility] [employer] [facility] POTASSIUM CHLORIDE 10MEQ TAB,SA TAKE ONE TABLET BY MOUTH EVERY DAY FOR CONGESTI VE HEART FAILURE ORAL DISCONT INUED 08/08/2023 [id number] 3 AFRICA CHAUHAN 2022 90 [facility] POTASSIUM CHLORIDE 10MEQ TAB,SA TAKE ONE TABLET BY MOUTH EVERY DAY FOR CONGESTI VE HEART FAILURE ORAL DISCONT INUED 11/16/2022 [id number] 3 AFRICA CHAUHAN [address] [facility] ROSUVASTATI N CA 20MG TAB TAKE ONE TABLET BY MOUTH AT BEDTIME FOR CORONARY ARTERY DISEASE ORAL HOLD 07/17/2024 [id number] AFRICA CHAUHAN 2023 90 [facility] ROSUVASTATI N CA 20MG TAB TAKE ONE TABLET BY MOUTH AT BEDTIME FOR CORONARY ARTERY DISEASE ORAL DISCONT INUED 08/08/2023 [id number] 4 AFRICA CHAUHAN 2022 90 [facility] TAMSULOSIN HCL 0.4MG CAP TAKE ONE CAPSULE BY MOUTH EVERY EVENING FOR PROSTATE ORAL ACTIVE 07/17/2024 [id number] 4 AFRICA CHAUHAN 2023 30 [facility] Allergies, Adverse Reactions, Alerts Combined list of allergies from Department of Defense and Veterans Affairs facilities. It does not include entries that were removed or entered in error. Substance Category Reaction Severity Reaction type Status Date Reported Comments Source YENIFERPRIL Propensity to adverse reactions to drug (finding) Cough active 0 [facility] Immunizations Combined list of available immunizations from the Department of Defense and Veterans Affairs facilities. Immunization Series Date Given Administered By Site Reaction Lot Number CVX Code Drug Sign Erector Status Comments Source COVID-19 (CabbyGo), MRNA, LNP-S, BIVALENT, PF, 30 MCG/0.3 ML DOSE [address] [facility] COVID-19 (PFIZER), MRNA, LNP-S, PF, 30 MCG/0.3 ML DOSE, JAMES-SUCROSE (AGES 12+ YEARS) 2021 217 complet [facility] COVID-19 (CabbyGo), MRNA, LNP-S, PF, 30 MCG/0.3 ML DOSE 2020 208 complet [facility] ZOSTER RECOMBINANT 2 2020 187 complet [facility] INFLUENZA VACCINE, QUADRIVALENT, ADJUVANTED 2020 205 complet [facility] INFLUENZA, UNSPECIFIED FORMULATION 2020 88 complet [facility] ZOSTER RECOMBINANT 1 2020 187 complet [facility] COVID-19 (C[employer]byGo), MRNA, LNP-S, PF, 30 MCG/0.3 ML DOSE 2 2020 208 complet [facility] COVID-19 ([employer]Go), MRNA, LNP-S, PF, 30 MCG/0.3 ML DOSE 1 2020 208 complet [facility] INFLUENZA VACCINE, QUADRIVALENT, ADJUVANTED 2019 205 complet [facility] INFLUENZA, TRIVALENT, ADJUVANTED 2018 168 complet [facility] INFLUENZA, SEASONAL, INJECTABLE 2018 141 complet [facility] INFLUENZA, SEASONAL, INJECTABLE 2017 141 complet [facility] INFLUENZA, TRIVALENT, ADJUVANTED 2017 168 complet [facility] INFLUENZA, HIGH DOSE SEASONAL 2016 135 complet [facility] PNEUMOCOCCAL POLYSACCHARID E PPV23 2016 33 complet ed [employer] , [id number], 06/03/18 [facility] TD (ADULT), 2 LF TETANUS TOXOID, PRESERVATIVE FREE, ADSORBED 2016 09 complet ed [employer] [id number], 12/19/18 [facility] INFLUENZA, HIGH DOSE SEASONAL [address] [facility] PNEUMOCOCCAL POLYSACCHARID E PPV23 [address] [facility] INFLUENZA, HIGH DOSE SEASONAL [address] [facility] PNEUMOCOCCAL CONJUGATE PCV 13 2015 133 complet ed [employer] [facility] M [facility] PNEUMOCOCCAL CONJUGATE PCV 13 [address] [facility] INFLUENZA, UNSPECIFIED FORMULATION [address] [facility] INFLUENZA, UNSPECIFIED FORMULATION [address] [facility] INFLUENZA, UNSPECIFIED FORMULATION [address] [facility] INFLUENZA, UNSPECIFIED FORMULATION [address] [facility] PNEUMOCOCCAL, UNSPECIFIED FORMULATION 2009 109 complet ed [employer],093 02, [address]11 [facility] TDAP [address] [facility] ZOSTER LIVE [address] [facility] TDAP [address] [facility] ZOSTER LIVE [address] [facility] Results Combined list of recent chemistry, [...] Jul 17, 2023 04:23 PM Reporting Lab: [facility] [address] Performing Lab: [facility] [address] [facility] URINALYS IS SPECIFIC GRAVITY OF URINE 1.006 1.003 - 1.035 07/16 Specimen Type: URINE No comment entered. Ordering Provider: TERRENCE CHAUHAN Report Released Date/Time: Jul 17, 2023 04:23 PM Reporting Lab: [facility] [address] Performing Lab: [facility] [address] [place] [employer] [facility] URINALYS IS BILIRUBIN. TOTAL [PRESENCE] IN URINE BY TEST STRIP NEGATIVE 07/16 Specimen Type: URINE No comment entered. Ordering Provider: TERRENCE CHAUHAN Report Released Date/Time: Jul 17, 2023 04:23 PM Reporting Lab: [facility] [address] Performing Lab: [facility] [address] [place] [employer] [facility] URINALYS IS KETONES [MASS/VOLU ME] IN URINE BY TEST STRIP NEGATIVE 07/16 Specimen Type: URINE No comment entered. Ordering Provider: TERRENCE CHAUHAN Report Released Date/Time: Jul 17, 2023 04:23 PM Reporting Lab: [facility] [address] Performing Lab: [facility] [address] [place] [employer] [facility] URINALYS IS GLUCOSE [MASS/VOLU ME] IN URINE BY TEST STRIP NEGATIVE mg/dL 07/16 Specimen Type: URINE No comment entered. Ordering Provider: TERRENCE CHAUHAN Report Released Date/Time: Jul 17, 2023 04:23 PM Reporting Lab: [facility] [address] Performing Lab: [facility] [address] [place] [employer] [facility] URINALYS IS PROTEIN [MASS/VOLU ME] IN URINE BY TEST STRIP NEGATIVE mg/dL 07/16 Specimen Type: URINE No comment entered. Ordering Provider: TERRENCE CHAUHAN Report Released Date/Time: Jul 17, 2023 04:23 PM Reporting Lab: [facility] [address] Performing Lab: [facility] [address] [place] [employer] [facility] URINALYS IS PH OF URINE BY TEST STRIP 7.0 5.0 - 8.0 07/16 Specimen Type: URINE No comment entered. Ordering Provider: TERRENCE CHAUHAN Report Released Date/Time: Jul 17, 2023 04:23 PM Reporting Lab: [facility] [address] Performing Lab: [facility] [address] [place] [employer] [facility] [facility] URINALYS IS LEUKOCYTES [#/AREA] IN URINE SEDIMENT BY MICROSCOPY HIGH POWER FIELD <1/[HPF] 0 - 7 07/16 Specimen Type: URINE No comment entered. Ordering Provider: TERRENCE CHAUHAN Report Released Date/Time: Jul 17, 2023 04:23 PM Reporting Lab: [facility] [address] Performing Lab: [facility] [address] [place] [employer] [facility] [facility] URINALYS IS BACTERIA [PRESENCE] IN URINE SEDIMENT BY LIGHT MICROSCOPY NONE SEEN 07/16 Specimen Type: URINE No comment entered. Ordering Provider: TERRENCE CHAUHAN Report Released Date/Time: Jul 17, 2023 04:23 PM Reporting Lab: [facility] [address] Performing Lab: [facility] [address] [place] [employer] [facility] [facility] URINALYS IS ERYTHROCYT ES [#/AREA] IN URINE SEDIMENT BY MICROSCOPY HIGH POWER FIELD <1/[HPF] 0 - 3 07/16 Specimen Type: URINE No comment entered. Ordering Provider: TERRENCE CHAUHAN Report Released Date/Time: Jul 17, 2023 04:23 PM Reporting Lab: [facility] [address] Performing Lab: [facility] [address] [place] [employer] [facility] [employer] [facility] URINALYS IS APPEARANCE OF URINE CLEAR 07/16 Specimen Type: URINE No comment entered. Ordering Provider: TERRENCE CHAUHAN Report Released Date/Time: Jul 17, 2023 04:23 PM Reporting Lab: [facility] [address] Performing Lab: [facility] [address] [place] [employer] [facility] [facility] URINALYS IS EPITHELIAL CELLS.SQUA MOUS [#/AREA] IN URINE SEDIMENT BY MICROSCOPY HIGH POWER FIELD NONE SEEN/[HP F] 07/16 Specimen Type: URINE No comment entered. Ordering Provider: TERRENCE CHAUHAN Report Released Date/Time: Jul 17, 2023 04:23 PM Reporting Lab: [facility] [address] Performing Lab: [facility] [address] [facility] URINALYS IS HEMOGLOBIN [PRESENCE] IN URINE BY TEST STRIP NEGATIVE 07/16 Specimen Type: URINE No comment entered. Ordering Provider: TERRENCE CHAUHAN Report Released Date/Time: Jul 17, 2023 04:23 PM Reporting Lab: [facility] [address] Performing Lab: [facility] [address] [facility] URINALYS IS NITRITE [PRESENCE] IN URINE BY TEST STRIP NEGATIVE 07/16 Specimen Type: URINE No comment entered. Ordering Provider: TERRENCE CHAUHAN Report Released Date/Time: Jul 17, 2023 04:23 PM Reporting Lab: [facility] [address] Performing Lab: [facility] [address] [facility] URINALYS IS LEUKOCYTE ESTERASE [PRESENCE] IN URINE BY TEST STRIP NEGATIVE 07/16 Specimen Type: URINE No comment entered. Ordering Provider: TERRENCE CHAUHAN Report Released Date/Time: Jul 17, 2023 04:23 PM Reporting Lab: [facility] [address] Performing Lab: [facility] [address] [facility] HEMOGLOB IN A1C HEMOGLOBIN A1C/HEMOGL OBIN.TOTAL IN [...] August 07, 2022 02:21 PM Reporting Lab: [facility] [address] Performing Lab: [facility] [address] [place] [employer] BASIC METABOLI C PANEL+MG CREATININE [MASS/VOLU ME] IN SERUM OR PLASMA 1.3 mg/dL 0.7 - 1.2 07/16 H Specimen Type: PLASMA No comment entered. Ordering Provider: TERRENCE CHAUHAN Report Released Date/Time: August 07, 2022 02:21 PM Reporting Lab: [facility] [address] Performing Lab: [facility] [address] [place] [employer] BASIC METABOLI C PANEL+MG UREA NITROGEN [MASS/VOLU ME] IN SERUM OR PLASMA 15 mg/dL 8 - 26 07/16 Specimen Type: PLASMA No comment entered. Ordering Provider: TERRENCE CHAUHAN Report Released Date/Time: August 07, 2022 02:21 PM Reporting Lab: [facility] [address] Performing Lab: [facility] [address] [place] [employer] BASIC METABOLI C PANEL+MG GLUCOSE [MASS/VOLU ME] IN SERUM OR PLASMA 84 mg/dL 70 - 100 07/16 Specimen Type: PLASMA No comment entered. Ordering Provider: TERRENCE CHAUHAN Report Released Date/Time: August 07, 2022 02:21 PM Reporting Lab: [facility] [address] Performing Lab: [facility] [address] [place] [employer] BASIC METABOLI C PANEL+MG SODIUM [MOLES/VOL UME] IN SERUM OR PLASMA 137 mmol/L 136 - 145 07/16 Specimen Type: PLASMA No comment entered. Ordering Provider: TERRENCE CHAUHAN Report Released Date/Time: August 07, 2022 02:21 PM Reporting Lab: [facility] [address] Performing Lab: [facility] [address] [place] [employer] BASIC METABOLI C PANEL+MG POTASSIUM [MOLES/VOL UME] IN SERUM OR PLASMA 4.6 mmol/L 3.5 - 5.1 07/16 Specimen Type: PLASMA No comment entered. Ordering Provider: TERRENCE CHAUHAN Report Released Date/Time: August 07, 2022 02:21 PM Reporting Lab: [facility] [address] Performing Lab: [facility] [address] [place] [employer] BASIC METABOLI C PANEL+MG CHLORIDE [MOLES/VOL UME] IN SERUM OR PLASMA 105 mmol/L 98 - 107 07/16 Specimen Type: PLASMA No comment entered. Ordering Provider: TERRENCE CHAUHAN Report Released Date/Time: August 07, 2022 02:21 PM Reporting Lab: [facility] [address] Performing Lab: [facility] [address] [place] [employer] BASIC METABOLI C PANEL+MG CARBON DIOXIDE, TOTAL [MOLES/VOL UME] IN SERUM OR PLASMA 24 mmol/L 22 - 29 07/16 Specimen Type: PLASMA No comment entered. Ordering Provider: TERRENCE CHAUHAN Report Released Date/Time: August 07, 2022 02:21 PM Reporting Lab: [facility] [address] Performing Lab: [facility] [address] [place] [employer] BASIC METABOLI C PANEL+MG CALCIUM [MASS/VOLU ME] IN SERUM OR PLASMA 8.9 mg/dL 8.4 - 10.2 07/16 Specimen Type: PLASMA No comment entered. Ordering Provider: TERRENCE CHAUHAN Report Released Date/Time: August 07, 2022 02:21 PM Reporting Lab: [facility] [address] Performing Lab: [facility] [address] [place] [employer] BASIC METABOLI C PANEL+MG MAGNESIUM [MASS/VOLU ME] IN SERUM OR PLASMA 2.1 mg/dL 1.6 - 2.6 07/16 Specimen Type: PLASMA No comment entered. Ordering Provider: TERRENCE CHAUHAN Report Released Date/Time: August 07, 2022 02:21 PM Reporting Lab: [facility] [address] Performing Lab: [facility] [address] [place] [employer] BASIC METABOLI C PANEL+MG ANION GAP IN SERUM OR PLASMA 8 mmol/L 5 - 15 07/16 Specimen Type: PLASMA No comment entered. Ordering Provider: TERRENCE CHAUHAN Report Released Date/Time: August 07, 2022 02:21 PM Reporting Lab: [facility] [address] Performing Lab: [facility] [address] [place] [employer] BASIC METABOLI C PANEL+MG GLOMERULAR FILTRATION RATE/1.73 SQ M.PREDICTE D [VOLUME RATE/AREA] IN SERUM, PLASMA OR BLOOD BY CREATININE -BASED FORMULA (CKD-EPI 2020) 56 60 07/16 L Specimen Type: PLASMA No comment entered. Ordering Provider: TERRENCE CHAUHAN Report Released Date/Time: August 07, 2022 02:21 PM Reporting Lab: [facility] [address] Performing Lab: [facility] [address] [place] [employer] CBC LEUKOCYTES [#/VOLUME] IN BLOOD BY AUTOMATED COUNT 8.72 10*3/uL 4.0 - 11.0 07/16 Specimen Type: BLOOD No comment entered. Ordering Provider: TERRENCE CHAUHAN Report Released Date/Time: August 07, 2022 02:21 PM Reporting Lab: [facility] [address] Performing Lab: [facility] [address] [place] [employer] CBC ERYTHROCYT ES [#/VOLUME] IN BLOOD BY AUTOMATED COUNT 4.11 10*6/uL 4.6 - 6.2 07/16 L Specimen Type: BLOOD No comment entered. Ordering Provider: TERRENCE CHAUHAN Report Released Date/Time: August 07, 2022 02:21 PM Reporting Lab: [facility] [address] Performing Lab: [facility] [address] [place] [employer] CBC HEMOGLOBIN [MASS/VOLU ME] IN BLOOD 13.4 g/dL 13.5 - 17.9 07/16 L Specimen Type: BLOOD No comment entered. Ordering Provider: TERRENCE CHAUHAN Report Released Date/Time: August 07, 2022 02:21 PM Reporting Lab: [facility] [address] Performing Lab: [facility] [address] [place] [employer] CBC HEMATOCRIT [VOLUME FRACTION] OF BLOOD BY AUTOMATED COUNT 39.7 41 - 54 07/16 L Specimen Type: BLOOD No comment entered. Ordering Provider: TERRENCE CHAUHAN Report Released Date/Time: August 07, 2022 02:21 PM Reporting Lab: [facility] [address] Performing Lab: [facility] [address] [place] [employer] CBC MCV [ENTITIC VOLUME] BY AUTOMATED COUNT 96.6 fL 80 - 100 07/16 Specimen Type: BLOOD No comment entered. Ordering Provider: TERRENCE CHAUHAN Report Released Date/Time: August 07, 2022 02:21 PM Reporting Lab: [facility] [address] Performing Lab: [facility] [address] [place] [employer] CBC MCH [ENTITIC MASS] BY AUTOMATED COUNT 32.6 pg 27 - 33 07/16 Specimen Type: BLOOD No comment entered. Ordering Provider: TERRENCE CHAUHAN Report Released Date/Time: August 07, 2022 02:21 PM Reporting Lab: [facility] [address] Performing Lab: [facility] [address] [place] [employer] CBC MCHC [MASS/VOLU ME] BY AUTOMATED COUNT 33.8 g/dL 32.0 - 37.5 07/16 Specimen Type: BLOOD No comment entered. Ordering Provider: TERRENCE CHAUHAN Report Released Date/Time: August 07, 2022 02:21 PM Reporting Lab: [facility] [address] Performing Lab: [facility] [address] [place] [employer] CBC PLATELETS [#/VOLUME] IN BLOOD BY AUTOMATED COUNT 159 10*3/uL 150 - 400 07/16 Specimen Type: BLOOD No comment entered. Ordering Provider: TERRENCE CHAUHAN Report Released Date/Time: August 07, 2022 02:21 PM Reporting Lab: [facility] [address] Performing Lab: [facility] [address] [place] [employer] CBC PLATELET MEAN VOLUME [ENTITIC VOLUME] IN BLOOD BY AUTOMATED COUNT 9.6 fL 7.4 - 10.4 07/16 Specimen Type: BLOOD No comment entered. Ordering Provider: TERRENCE CHAUHAN Report Released Date/Time: August 07, 2022 02:21 PM Reporting Lab: [facility] [address] Performing Lab: [facility] [address] [place] [employer] CBC ERYTHROCYT E DISTRIBUTI ON WIDTH [RATIO] BY AUTOMATED COUNT 14.1 11.5 - 14.5 07/16 Specimen Type: BLOOD No comment entered. Ordering Provider: TERRENCE CHAUHAN Report Released Date/Time: August 07, 2022 02:21 PM Reporting Lab: [facility] [address] Performing Lab: [facility] [address] [place] [employer] LIVER FUNCTION TESTS BILIRUBIN. TOTAL [MASS/VOLU ME] IN SERUM OR PLASMA 0.8 mg/dL 0.2 - 1.2 07/16 Specimen Type: PLASMA No comment entered. Ordering Provider: TERRENCE CHAUHAN Report Released Date/Time: August 07, 2022 02:21 PM Reporting Lab: [facility] [address] Performing Lab: [facility] [address] [place] [facility] LIVER FUNCTION TESTS ALKALINE PHOSPHATAS E [ENZYMATIC ACTIVITY/V OLUME] IN SERUM OR PLASMA 52 U/L 40 - 150 07/16 Specimen Type: PLASMA No comment entered. Ordering Provider: TERRENCE CHAUHAN Report Released Date/Time: August 07, 2022 02:21 PM Reporting Lab: [facility] [address] Performing Lab: [facility] [address] [place] [facility] [facility] LIVER FUNCTION TESTS ALANINE AMINOTRANS FERASE [ENZYMATIC ACTIVITY/V OLUME] IN SERUM OR PLASMA 20 U/L <55 - 55 07/16 Specimen Type: PLASMA No comment entered. Ordering Provider: TERRENCE CHAUHAN Report Released Date/Time: August 07, 2022 02:21 PM Reporting Lab: [facility] [address] Performing Lab: [facility] [address] [place] [employer] [facility] LIVER FUNCTION TESTS ASPARTATE AMINOTRANS FERASE [ENZYMATIC ACTIVITY/V OLUME] IN SERUM OR PLASMA 19 U/L <34 - 34 07/16 Specimen Type: PLASMA No comment entered. Ordering Provider: TERRENCE CHAUHAN Report Released Date/Time: August 07, 2022 02:21 PM Reporting Lab: [facility] [address] Performing Lab: [facility] [address] [place] [employer] [facility] [employer] [facility] LIVER FUNCTION TESTS GAMMA GLUTAMYL TRANSFERAS E [ENZYMATIC ACTIVITY/V OLUME] IN SERUM OR PLASMA 38 U/L <64 - 64 07/16 Specimen Type: PLASMA No comment entered. Ordering Provider: TERRENCE CHAUHAN Report Released Date/Time: August 07, 2022 02:21 PM Reporting Lab: [facility] [address] Performing Lab: [facility] [address] [place] [employer] [facility] PSA PROSTATE SPECIFIC AG [MASS/VOLU ME] IN SERUM OR PLASMA 3.84 ng/mL <4.00 - 4.00 07/16 Specimen Type: SERUM No comment entered. Ordering Provider: TERRENCE CHAUHAN Report Released Date/Time: August 07, 2022 02:21 PM Reporting Lab: [facility] [address] Performing Lab: [facility] [address] [place] [employer] [facility] CREATINI NE(INCLU SATHYA EGFR) CREATININE [MASS/VOLU ME] IN SERUM OR PLASMA 1.2 mg/dL 0.7 - 1.2 04/16 Specimen Type: PLASMA No comment entered. Ordering Provider: HUYEN HYLTON Report Released Date/Time: Mar 07, 2023 02:00 PM Reporting Lab: [facility] [address] Performing Lab: [facility] [address] [place] [employer] [facility] CREATINI NE(INCLU SATHYA EGFR) GLOMERULAR FILTRATION RATE/1.73 SQ M.PREDICTE D [VOLUME RATE/AREA] IN SERUM, PLASMA OR BLOOD BY CREATININE -BASED FORMULA (CKD-EPI 2020) 62 60 04/16 Specimen Type: PLASMA No comment entered. Ordering Provider: HUYEN HYLTON Report Released Date/Time: Mar 07, 2023 02:00 PM Reporting Lab: [facility] [address] Performing Lab: [facility] [address] [facility] [employer] [facility] CBC LEUKOCYTES [#/VOLUME] IN BLOOD BY AUTOMATED COUNT 8.06 10*3/uL 4.0 - 11.0 04/16 Specimen Type: BLOOD No comment entered. Ordering Provider: HUYEN HYLTON Report Released Date/Time: Mar 07, 2023 02:00 PM Reporting Lab: [facility] [address] Performing Lab: [facility] [address] [place] [employer] [facility] CBC ERYTHROCYT ES [#/VOLUME] IN BLOOD BY AUTOMATED COUNT 4.03 10*6/uL 4.6 - 6.2 04/16 L Specimen Type: BLOOD No comment entered. Ordering Provider: HUYEN HYLTON Report Released Date/Time: Mar 07, 2023 02:00 PM Reporting Lab: [facility] [address] Performing Lab: [facility] [address] [place] [employer] [facility] [facility] CBC HEMOGLOBIN [MASS/VOLU ME] IN BLOOD 13.1 g/dL 13.5 - 17.9 04/16 L Specimen Type: BLOOD No comment entered. Ordering Provider: HUYEN HYLTON Report Released Date/Time: Mar 07, 2023 02:00 PM Reporting Lab: [facility] [address] Performing Lab: [facility] [address] [place] [employer] [facility] CBC HEMATOCRIT [VOLUME FRACTION] OF BLOOD BY AUTOMATED COUNT 38.9 41 - 54 04/16 L Specimen Type: BLOOD No comment entered. Ordering Provider: HUYEN HYLTON S Report Released Date/Time: Mar 07, 2023 02:00 PM Reporting Lab: [facility] [address] Performing Lab: [place] [phone] [place] [employer] CBC MCV [ENTITIC VOLUME] BY AUTOMATED COUNT 96.5 fL 80 - 100 04/16 Specimen Type: BLOOD No comment entered. Ordering Provider: HUYEN HYLTON S Report Released Date/Time: Mar 07, 2023 02:00 PM Reporting Lab: [facility] [address] Performing Lab: [facility] [address] [place] [employer] [facility] [facility] CBC MCH [ENTITIC MASS] BY AUTOMATED COUNT 32.5 pg 27 - 33 04/16 Specimen Type: BLOOD No comment entered. Ordering Provider: HUYEN HYLTON S Report Released Date/Time: Mar 07, 2023 02:00 PM Reporting Lab: [facility] [address] Performing Lab: [facility] [address] [place] [employer] [facility] [employer] CBC MCHC [MASS/VOLU ME] BY AUTOMATED COUNT 33.7 g/dL 32.0 - 37.5 04/16 Specimen Type: BLOOD No comment entered. Ordering Provider: HUYEN HYLTON S Report Released Date/Time: Mar 07, 2023 02:00 PM Reporting Lab: [facility] [address] Performing Lab: [facility] [address] [place] [employer] [facility] CBC PLATELETS [#/VOLUME] IN BLOOD BY AUTOMATED COUNT 157 10*3/uL 150 - 400 04/16 Specimen Type: BLOOD No comment entered. Ordering Provider: HUYEN HYLTON Report Released Date/Time: Mar 07, 2023 02:00 PM Reporting Lab: [facility] [address] Performing Lab: [facility] [address] [place] [employer] [facility] CBC PLATELET MEAN VOLUME [ENTITIC VOLUME] IN BLOOD BY AUTOMATED COUNT 9.7 fL 7.4 - 10.4 04/16 Specimen Type: BLOOD No comment entered. Ordering Provider: HUYEN HYLTON S Report Released Date/Time: Mar 07, 2023 02:00 PM Reporting Lab: [facility] [address] Performing Lab: [facility] [address] [place] [employer] [facility] CBC ERYTHROCYT E DISTRIBUTI ON WIDTH [RATIO] BY AUTOMATED COUNT 14.5 11.5 - 14.5 04/16 Specimen Type: BLOOD No comment entered. Ordering Provider: HUYEN HYLTON S Report Released Date/Time: Mar 07, 2023 02:00 PM Reporting Lab: [facility] [address] Performing Lab: [facility] [address] [place] [employer] [facility] AST/SGOT ASPARTATE AMINOTRANS FERASE [ENZYMATIC ACTIVITY/V OLUME] IN SERUM OR PLASMA 22 U/L <34 - 34 04/16 Specimen Type: PLASMA No comment entered. Ordering Provider: HUYEN HYLTON S Report Released Date/Time: Mar 07, 2023 02:00 PM Reporting Lab: [facility] [address] Performing Lab: [facility] [address] [place] [employer] [facility] ALT/SGPT ALANINE AMINOTRANS FERASE [ENZYMATIC ACTIVITY/V OLUME] IN SERUM OR PLASMA 19 U/L <55 - 55 04/16 Specimen Type: PLASMA No comment entered. Ordering Provider: HUYEN HYLTON S Report Released Date/Time: Mar 07, 2023 02:00 PM Reporting Lab: [facility] [address] Performing Lab: [facility] [address] [place] [employer] [facility] Vital Signs Combined list of inpatient and [...] DC Date Status Disposition Source [place] [facility] Outpatient Encounter [id number] 04/24 [facility] EM[facility] VISIT SF MDM [id number] Diagnos is: ICD-10- CM Z76.0 Encount er for issue of repeat prescri ption<b r/> AICHA GALLEGOS Ana 05/09 [facility] Outpatient Encounter [id number] 05/09 [facility] [place] [facility] Outpatient Encounter [id number] 06/12 [facility] [place] [facility] [facility] Outpatient Encounter [id number] 07/15 [facility] [place] [facility] OFFICE O/P EST MOD 30-39 MIN [id number] Diagnos is: ICD-10- CM Z00.01 Encount er for general adult medical exam w abnorma l finding s
RILEY,DANETTE LY E 08/07 [facility] [place] [facility] Outpatient Encounter [id number] 08/07 [facility] [place] [facility] Outpatient Encounter [id number] OLESYA ROGERS 08/12 [facility] [place] [facility] Outpatient Encounter [id number] OLESYA ROGERS 08/12 [place] [facility] [place] [facility] Out[place] Encounter [id number] Ana CHAUHAN 09/12 [place] [facility] [place] [facility] Outpatient Encounter [id number] 11/06 [place] [facility] [place] [facility] Outpatient Encounter [id number] 12/08 [place] [facility] [place] [facility] Outpatient Encounter [id number] 12/12 [place] [facility] [place] [facility] Outpatient Encounter [id number] 01/17 [place] [facility] [place] [facility] Outpatient Encounter [id number] 02/19 [place] [facility] [place] [facility] Outpatient Encounter [id number] 02/24 [place] [facility] [place] [facility] Outpatient Encounter [id number] 03/07 [place] [facility] QNHP OL DIG ASSMT&MGMT 5-10 [id number] Diagnos is: ICD-10- CM Z79.01 shelter (curren t) use of anticoa gulants
ELLEN GARCIA 05/29 [facility] [place] [facility] OFF[facility] O/P EST MOD 30 MIN [id number] Diagnos is: ICD-10- CM Z00.01 Encount er for general adult medical exam w abnorma l finding s
Ana CHAUHAN 07/16 [facility] [place] [facility] Outpatient Encounter [id number] 07/17 [facility] Social History Combined list of available smoking, tobacco, and other social history from [facility] and [facility] facilities. Social History Type Response Date Comment Sour e Tobacco smoking status WYIS DC-TOBACCO FORMER USER 07/17/2023 [facility] History of tobacco use DC-TOBACCO QUIT 1 TO < 5 YRS 07/17/2023 [facility] History of tobacco use DC-TOBACCO QUIT 1 TO < 5 YRS 08/07/2022 [facility] History of tobacco use DC-TOBACCO FORMER USER 10/16/2020 [facility] History of tobacco use DC-TOBACCO USE MED NO 03/29/2019 [facility] History of tobacco use DC-TOBACCO USE WI 30 MIN OF WAKEUP 02/17/2018 [facility] History of tobacco use CURRENT TOBACCO USER 02/12/2017 [facility] History of tobacco use CURRENT TOBACCO USER 04/25/2015 [facility] History of tobacco use CURRENT TOBACCO USER 04/21/2014 [facility] History of tobacco use CURRENT TOBACCO USER 04/20/2013 [facility] History of tobacco use CURRENT TOBACCO USER 03/20/2012 [facility] History of tobacco use CURRENT TOBACCO USER 02/06/2011 [facility] History of tobacco use CURRENT TOBACCO USER 01/02/2010 [facility]
--- OUTSIDE RECORDS SUMMARY | 2023-09-15 10:17 | XMS_ITS | Data Portability ---
Author Organization [place] [facility], [employer] Address [address] [place] [address] Assessment Encounter Date Assessment Date Assessment LastModified [...] user Active 2015 Tobacco user; Original Code: 571587605 Origi nal Codesystem: SNOMED CT Classificati on: Medical Confirm ation Status: Probable Not Available [facility] 09:10[facility]17 Onychomycosis of toenails Active 2015 Onychomycosis of toenails; Original Code: 7805053242 Orig inal Codesystem: SNOMED CT Classificati on: Medical Confirm ation Status: Confirmed Not Available [facility] 09:10:17 Heart disease Active 2021 Heart disease; Original Code: 03621671 Origin al Codesystem: SNOMED CT Classificati on: Medical Confirm ation Status: Confirmed Not Available [facility] 3 09:10:17 Corns and callus Active 2015 Corns and callus; Original Code: 670410664 Origi nal Codesystem: SNOMED CT Classificati on: Medical Confirm ation Status: Confirmed Not Available [facility] 3 09:10:17 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; Original Code: 8077907250 Orig inal Codesystem: SNOMED CT Classificati on: Medical Confirm ation Status: Confirmed Not Available [facility] 3 09:10:17 Foot pain Active 2015 Foot pain; Original Code: 717418669 Origi nal Codesystem: SNOMED CT Classificati on: Medical Confirm ation Status: Confirmed Not Available [facility] 3 09:10:17 Acquired hallux valgus Active 2015 Acquired hallux valgus; Original Code: 337216663 Origi nal Codesystem: SNOMED CT Classificati on: Medical Confirm ation Status: Confirmed Not Available [facility] 3 09:10:17 Acquired hallux malleus Active 2015 Acquired hallux malleus; Original Code: 12944529 Origin al Codesystem: SNOMED CT Classificati on: Medical Confirm ation Status: Confirmed Not Available [facility] 09:10:17 Atrial fibrillation Active 2015 Atrial fibrillation; Original Code: 73104592 Origin al Codesystem: SNOMED CT Classificati on: Medical Confirm ation Status: Confirmed Not Available [facility] 09:10:17 Hypertensive disorder Active 2015 Hypertensive disorder; Original Code: 3624869904 Orig inal Codesystem: SNOMED CT Classificati on: Medical Confirm ation Status: Confirmed Not Available [facility] 3 09:10:17 Notes:H/O: anticoagulant the rapy Original Code: 859757480 Original Codesystem: SNOMED CT Classification: Medical Confirmation Status: Confirmed Problem Notes None recorded. Procedures Surgical History Date Name Laterality Status Provider Name and Address Organization Details Recorded Time 10/24/[address] Hong Andres DPM [address] [place] [address], [phone], [facility] 10/23/2022 11:44:57 07/25/[address] Pitts completed Too Andres DPM [address] [place] [address], [phone], [facility] 07/24/2022 10:35:10 04/24/[address] Hong Andres DPM [address] [place] [address], [phone], [facility] [...] Updated DateTime 04/24/2022 190.5 cm 25 kg/m2 75039.47 g Mamta Corbett [facility] 04/24/2022 10:32:58 Social History None recorded. Functional Status None recorded. Mental Status None recorded. Family History Nothing Reported. Medical History No medical history recorded. Past Encounters Encounter ID Performer Location Encounter Start Date Encounter Closed Date Diagnosis/Indication Diagnosis SNOMED-CT Code [id number] Too Andres DPM [facility] [address] [place] [id number] 04/24/2022 10:31:04 04/24/2022 13:46:36 Onychomycosis 781805876 Peripheral vascular disease 352121105 [id number] Too Andres DPM [facility] [address] [place] [id number] 07/24/2022 10:14:25 07/25/2022 09:45:42 Onychomycosis 885148761 Peripheral vascular disease [id number] Too Andres DPM [facility] [address] [place] [address] 10/23/2022 10:13:43 10/24/2022 09:44:58 Onychomycosis 053752057 Peripheral vascular disease 100426760 Health Concerns Section Related Observation LastModified by Organization Detai ls LastModified Time None Recorded Concern Status LastModified by Organization Details LastModified Time None Recorded Advance Directives Directive None Recorded Payers Encounter Date Sequence Insurance Name Policy Number Policy Kevin Covered Member ID Kevin Member ID Guarantor Name 10/23/2022 1 [employer] [id number] Bola Zurita [id number] Bola Zurita 07/24/2022 1 [employer] [id number] Bola Zurita [id number] Bola Zurita 04/24/2022 1 [place] [id number] Bola J Parminder [id number] Bola Zurita Notes Date Note Type Note Provider Name and Address Organization Details Recorded Time 04/24/2022 text/html HPI Notes: Pawel salmeron is a 77 year old male established patient who presents with the chief complaint. Presents today for evaluation of problematic toenails and feet in general. They relate chronic thickening and deformity to their toenails that has not responded to self-trimming, topical gdji-wjk-uzdidnm anti-fungal therapy, foot soaks, and other similar conservative treatments. Nails are painful with catching on shoegear and socks. Denies any recent foot injury or infection. Claudication symptoms: No Burning symptoms: No Paresthesia: Subjective numbness to the left lower extremity consistent with his previous surgical procedures performed through [facility] in the [facility] Patient presents for further evaluation and treatment options. Too Andres DPM [address] [place], [address], [facility] 04/24/2022 11:14:44 07/24/2022 text/html HPI Notes: Pawel salmeron is a 77 year old male established patient who presents with the chief complaint. Presents today for evaluation of problematic toenails and feet in general. They relate chronic thickening and deformity to their toenails that has not responded to self-trimming, topical klqe-gjy-ylsqlje anti-fungal therapy, foot soaks, and other similar conservative treatments. Nails are painful with catching on shoegear and socks. Denies any recent foot injury or infection. Claudication symptoms: No Burning symptoms: No Paresthesia: Subjective numbness to the left lower extremity consistent with his previous surgical procedures performed through [facility]ascular surgery in [facility] Patient presents for further evaluation and treatment options. Too Andres DPM [address] [place], [address], [facility] 07/24/2022 10:35:54 10/23/2022 text/html HPI Notes: Pawel salmeron is a 77 year old male established patient who presents with the chief complaint. Presents today for evaluation of problematic toenails and feet in general. They relate chronic thickening and deformity to their toenails that has not responded to self-trimming, topical mbnw-wob-kuhzlmg anti-fungal therapy, foot soaks, and other similar conservative treatments. Nails are painful with catching on shoegear and socks. Denies any recent foot injury or infection. Claudication symptoms: No Burning symptoms: No Paresthesia: Subjective numbness to the left lower extremity consistent with his previous surgical procedures performed through [facility]ascular surgery in [facility] Patient presents for further evaluation and treatment options. Too Andres DPM [address] [place], [address], [facility] 10/23/2022 11:45:19
== END 2023-09-15 10:15 | disposition home or self-care (01) ==
LOC: WOUND 10:14
PROVIDERS: PCP Family Medicine; Visit Provider Nurse Practitioner Family
DX: L72.0 Epidermal cyst (principal)
CPT/HCPCS: 11042

== ENCOUNTER 2023-09-18 15:14 | Outpatient (CLI) | payer MEDICARE, BC, SELFPAY ==
--- OUTSIDE RECORDS SUMMARY | 2023-09-18 15:23 | XMS_ITS | Clinical Summary ---
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 LLE angiogram 2. 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 MANAGER of hop[place] peroneal Panlobular emphysema 10/21/2018 COPD exacerbation 09/09/2018 [...] Department Care Team Description 08/05/2023 Lab Requisition [facility] [phone] Unknown, Doctor 08/04/2023 8:35 AM CDT Office Visit [facility] [address] [place] [address] Jena Pascual PA Follow Up (Boil) 08/04/2023 Travel 08/01/2023 8:35 AM CDT Office Visit [facility] [address] [facility] [place] [address] Jena Pascual PA Derm Problem 08/01/2023 Travel [...] T Respiratory Rate 18 03/17/2023 3:35 PM SCENE PAINTER Oxygen Saturation 96% 08/04/2023 8:35 AM CDT Inhaled Oxygen Concentration - - Weight 90.7 kg (200 lb) 08/04/2023 8:35 AM CDT Height 190.5 cm (6' 3) 03/17/2023 2:07 PM SCENE PAINTER Body Mass Index 25 03/17/2023 2:07 PM SCENE PAINTER Plan of Treatment Health Maintenance Due Date [...] back ANTI HCV Routine 05/16/2021 3:20 PM SCENE PAINTER Need for hepatitis C screening test CT CHEST WO Routine 08/29/2010 4:53 PM CDT Pulmonary nodules from Last 3 Months or Most Recently Relevant to Health Maintenance Results * LAB TRACKING EVENT (08/05/2023 2:01 PM CDT) Other (Other) Client Collect / Unknown 08/05/2023 2:01 PM CDT 08/05/2023 9:37 PM CDT Doctor Unknown LAB BILL ONLY [facility] [address] [place] [address], * PATH TISSUE EXAM (08/05/2023 2:01 PM CDT) Case Report Pathology Report ?Case: [id number] ? Authorizing Provider: ??Unknown, Doctor ?Collected: ? 08/05/2023 1401 ? Ordering Location: ? [facility] ?Received: ?08/06/2023 1013 ? Pathologist: ? Jose Rinaldi MD ? Specimen: ?Back ? 08/07/2023 4:47 PM CDT [facility] Final Diagnosis A) SKIN, BACK, CYST, EXCISION: 1. Epidermoid cyst 2. Negative for dysplasia or malignancy 08/07/2023 4:47 PM CDT [facility] Clinical Information back cyst 08/07/2023 4:47 PM CDT [facility] Gross Description A) Received in formalin, labeled with the patient's name and date of , is a 1.5 x 1.1 x 0.3 cm aggregate of pale-garcia cyst wall fragments admixed with garcia-white soft, friable cyst contents. ??The specimen is filtered and submitted entirely in 1 cassette. [facility] 08/06/2023 08/07/2023 4:47 PM CDT [facility] Microscopic Description The final diagnosis is based on microscopic examination of appropriate sections of all specimens. 08/07/2023 4:47 PM CDT [facility] Additional Information Interpreted at [facility] - [address], [place] [address] 08/07/2023 4:47 PM CDT [facility] Other (Back) 08/05/2023 2:01 PM CDT 08/06/2023 10:13 AM CDT Doctor Unknown PATHOLOGY/CYTOLOGY [facility] [address] [place] [address], * AEROBIC BACTERIAL CULTURE, STAIN (08/01/2023 9:30 AM CDT) CULTURE No Growth. 08/03/2023 3:00 PM CDT [facility] GRAM STAIN 4+ RBCs 08/03/2023 3:00 PM CDT [facility] GRAM STAIN 1+ PMNs 08/03/2023 3:00 PM CDT [facility] GRAM STAIN No Epithelial cells 08/03/2023 3:00 PM CDT [facility] GRAM STAIN 4+ Gram Positive Cocci 08/03/2023 3:00 PM CDT [facility] GRAM STAIN 3+ Gram Negative Bacilli 08/03/2023 3:00 PM CDT [facility] Other (Other) Non-Blood / Unknown 08/01/2023 9:30 AM CDT 08/01/2023 9:31 AM CDT Jena RICHARDSON MICROBIOLOGY [facility] [address] [place] [address], * ANTI HCV (05/16/2021 3:20 PM SCENE PAINTER) HEPATITIS C ANTIBODY Non-React edelmira Non-React edelmira 05/17/2021 1:21 AM SCENE PAINTER [facility] Comment:Antibodies to HCV no t detected; does not exclude the possibility of exposure to HCV. Blood BLOOD SPECIMEN / Unknown Venipuncture / Unknown 05/16/2021 3:20 PM SCENE PAINTER 05/16/2021 3:25 PM SCENE PAINTER Zak Garcia MD SEND OUTS Performing Organization Address City/[facility]/ZIP Co de Phone Number [facility] [address] [place] [address], * CT CHEST WO CONTRAST (08/29/2010 4:53 [...] Comments Code Status Discussion: Discussed Care Teams Accounting Analyst Relationship Specialty Start Date End Date Klever Monte MD [address] [place] [address] PCP - General Family Practice 06/12/22
--- OUTSIDE RECORDS SUMMARY | 2023-09-18 15:23 | XMS_ITS | Continuity of Care Document ---
Author Name [facility] Organization [facility] Care Team Providers Care Plating Foreman Name Role Phone [facility] Unavailable Unavailable Problems Combined list of problems from Department of Defense and Veterans Affairs facilities. It does not include entries that were removed or entered in error. Problem Status Onset Date Problem Type Date of Resolution Comments Source CVD - Cerebrovascular Disease ([facility] [id number]) Active 03/19/20 20 Condition May 01, 2020 Entered By: YOAV CHAUHAN Comment: 03/19/20: L MCA CVA, Admit ANW. Cardio-embol ic d/t Warfarin DC [facility] CAD - Coronary Artery Disease ([facility] [id number]) Active 01/27/20 20 Condition Mar 13, 2020 Entered By: YOAV CHAUHAN Comment: 01/27/20: LAD and Dx stented w/SATHYA at [facility]. Plavix +ASA thru 01/26/21 [facility] Peripheral arterial insufficiency Active 01/21/20 20 Condition Mar 13, 2020 Entered By: YOAV CHAUHAN Comment: 01/21/20: L femoral Art occlusion per [facility]-->Fem -Tibial bypass planned [facility] Allergic rhinitis (SNOMED CT 40440637) Active Condition [facility] Atrial fibrillation (SNOMED CT 27608433) Active Condition Apr 26, 2015 Entered By: YOAV CHAUHAN Comment: Warfarin through Miryam Rodriguez [facility] Co-Managed Care Active Condition Dec 25, 2017 Entered By: YOAV CHAUHAN Comment: Dr Garcia, [employer], F: [phone] , [facility] COPD - Chronic Obstructive Pulmonary Disease ([facility] [id number]) Active Condition Dec 25, 2017 Entered By: YOAV CHAUHAN Comment: Mometasone & Albuterol MDI's [facility] [place] of toe Active Condition Sep 08, 2019 Entered By: YOAV CHAUHAN Comment: R middle toe [facility] Current smoker Active Condition Apr 082015 Entered By: YOAV CHAUHAN Comment: Cigars, not cigarettes [facility] Essential hypertension (SNOMED CT 52562222) Active Condition [facility] Glucose intolerance Active Condition [facility] Nocturia due to benign prostatic hypertrophy Active Condition [facility] Health Maintenance (ICD-9-CM V65.9) Inactive Condition 04/26/2015 BELGICA MANCILLA [facility] Diagnosis: ICD-10-CM Z00.01 Encounter for general adult medical exam w abnormal findings Active Diagnosis [facility] MARYVALESHANNA DENNIS [facility] Diagnosis: ICD-10-CM 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 [facility] MARYVALECAT Lisette [facility] Diagnosis: ICD-10-CM Z76.0 Encounter for issue of repeat prescription Active Diagnosis [facility] Medications Combined list of outpatient medications [...] BREATH RESPIR ATORY (INHAL ATION) HOLD 07/17/2024 [id number] AFRICA CHAUHAN 2023 2 [facility] MARYVALESHANNA [facility] ALBUTEROL 90MCG/ACTUA T (CFC-F) INHL,ORAL,8 .5GM DOSE COUNTER INHALE 2 PUFFS BY INHALATI ON FOUR TIMES A DAY NEEDED FOR SHORTNES S OF BREATH RESPIR ATORY (INHAL ATION) DISCONT INUED 08/08/2023 [id number] 3 AFRICA CHAUHAN 2022 2 [facility] APIXABAN 5MG TAB TAKE ONE TABLET BY MOUTH EVERY 12 HOURS TO PREVENT BLOOD CLOTS AND STROKE (ELIQUIS ) ORAL ACTIVE 05/29/2024 [id number] 4 MARIANO GARCIA 2023 180 [facility] APIXABAN 5MG TAB TAKE ONE TABLET BY MOUTH EVERY 12 HOURS TO PREVENT BLOOD CLOTS AND STROKE (ELIQUIS ) ORAL DISCONT INUED 05/09/2023 [id number] 3 MARIANO GARCIA 2022 180 [facility] CHOLECALCIF JONNA 25MCG (1,000UNIT) TAB TAKE FIVE TABLETS BY MOUTH QOD ORAL ACTIVE AFRICA CHAUHAN 2016 [facility] FLUOCINONID E 0.1% CREAM,TOP APPLY A THIN LAYER TOPICALL Y TWICE A DAY NEEDED FOR RASH TOPICA L ACTIVE 12/13/2023 [id number] 3 AFRICA CHAUHAN 2022 60 [facility] FLUTICASONE 250MCG/SALM ETEROL 50MCG INHL,ORAL,D ISKUS,60 INHALE 1 PUFF BY INHALATI ON TWICE A DAY FOR COPD RESPIR ATORY (INHAL ATION) ACTIVE 07/17/2024 [id number] 4 AFRICA CHAUHAN 2023 3 [facility] FLUTICASONE 250MCG/SALM ETEROL 50MCG INHL,ORAL,D ISKUS,60 INHALE 1 PUFF BY INHALATI ON TWICE A DAY FOR COPD THIS REPLACES YOUR MOMETASO NE RESPIR ATORY (INHAL ATION) DISCONT INUED 08/08/2023 [id number] 4 AFRICA CHAUHAN 2022 3 [facility] FUROSEMIDE 20MG TAB TAKE ONE TABLET BY MOUTH THREE TIMES A WEEK FOR HEART FAILURE ORAL ACTIVE 02/25/2024 [id number] 3 Hong DONAHUE 2022 39 [facility] FUROSEMIDE 20MG TAB TAKE ONE TABLET BY MOUTH EVERY OTHER DAY FOR HEART FAILURE ORAL DISCONT INUED (EDIT) 08/13/2023 [id number] 3 AFRICA CHAUHAN 2022 45 [facility] FUROSEMIDE 20MG TAB TAKE ONE TABLET BY MOUTH EVERY MORNING FOR HEART FAILURE ORAL DISCONT INUED 08/08/2023 [id number] 3 AFRICA CHAUHAN [place] 2022 90 [facility] HYDROCHLORO THIAZIDE 12.5MG TAB TAKE ONE TABLET BY MOUTH EVERY DAY FOR BLOOD PRESSURE ORAL DISCONT INUED 08/08/2023 [id number] 3 TIEN AFRICA LATESHA 2022 90 [facility] METOPROLOL SUCCINATE 100MG TAB,SA TAKE ONE AND ONE-HALF TABLETS BY MOUTH EVERY DAY ORAL DISCONT INUED 11/16/2022 [id number] 3 CHAUHAN AFRICA LATESHA 2021 135 [facility] METOPROLOL SUCCINATE 50MG TAB,SA TAKE THREE TABLETS BY MOUTH EVERY DAY FOR BLOOD PRESSURE ORAL DISCONT INUED 08/08/2023 [id number] 3 CHAUHAN, AFRICA LATESHA 2022 270 [facility] METOPROLOL TARTRATE 100MG TAB TAKE ONE TABLET BY MOUTH TWICE A DAY FOR BLOOD PRESSURE ORAL ACTIVE 12/13/2023 [id number] 4 CHAUHAN, AFRICA LATESHA 2022 180 [facility] NIFEDIPINE (EQV-CC) 60MG TAB,SA TAKE ONE TABLET BY MOUTH EVERY DAY FOR BLOOD PRESSURE ORAL DISCONT INUED BY PROVIDE R 08/08/2023 [id number] 3 CHAUHAN, AFRICA LATESHA 2022 90 [facility] NIFEDIPINE (EQV-CC) 60MG TAB,SA TAKE ONE TABLET BY MOUTH EVERY DAY FOR BLOOD PRESSURE ORAL DISCONT INUED 09/11/2022 [id number] 3 CHAUHAN, AFRICA LATESHA 2022 90 [facility] NIFEDIPINE (EQV-CC) 90MG TAB,SA TAKE ONE TABLET BY MOUTH EVERY DAY FOR BLOOD PRESSURE ORAL ACTIVE 07/17/2024 [id number] 4 AFRICA CHAUHAN 2023 90 [facility] NIFEDIPINE (EQV-CC) 90MG TAB,SA TAKE ONE TABLET BY MOUTH EVERY DAY FOR BLOOD PRESSURE INCREASE D DOSE PER CO-MANAG ED CARE INCREASE D DOSE PER CO-MANAG ED CARE ORAL DISCONT INUED 12/13/2023 [id number] 4 AFRICA CHAUHAN 2022 90 [place] [facility] POTASSIUM CHLORIDE 10MEQ TAB,SA TAKE ONE TABLET BY MOUTH THREE TIMES A WEEK FOR POTRICARDOIU M SUPPLEME NT TAKE WITH FUROSEMI DE ORAL ACTIVE 02/25/2024 [id number] 3 Hong DONAHUE UCESAR A 2022 39 [facility] POTASSIUM CHLORIDE 10MEQ TAB,SA TAKE ONE TABLET BY MOUTH EVERY OTHER DAY FOR KARLOSIU M SUPPLEME NT ORAL DISCONT INUED (EDIT) 08/13/2023 [id number] 3 AFRICA CHAUHAN 2022 45 [facility] [place] [facility] POTASSIUM CHLORIDE 10MEQ TAB,SA TAKE ONE TABLET BY MOUTH EVERY DAY FOR CONGESTI VE HEART FAILURE ORAL DISCONT INUED 08/08/2023 [id number] 3 AFRICA CHAUHAN 2022 90 [facility] [place] [facility] POTASSIUM CHLORIDE 10MEQ TAB,SA TAKE ONE TABLET BY MOUTH EVERY DAY FOR CONGESTI VE HEART FAILURE ORAL DISCONT INUED 11/16/2022 [id number] 3 AFRICA CHAUHAN 2021 90 [facility] ROSUVASTATI N CA 20MG TAB TAKE ONE TABLET BY MOUTH AT BEDTIME FOR CORONARY ARTERY DISEASE ORAL HOLD 07/17/2024 [id number] AFRICA CHAUHAN 2023 90 [facility] [place] [facility] ROSUVASTATI N CA 20MG TAB TAKE ONE TABLET BY MOUTH AT BEDTIME FOR CORONARY ARTERY DISEASE ORAL DISCONT INUED 08/08/2023 [id number] 4 AFRICA CHAUHAN 2022 90 [facility] [place] [facility] TAMSULOSIN HCL 0.4MG CAP TAKE ONE CAPSULE BY MOUTH EVERY EVENING FOR PROSTATE ORAL ACTIVE 07/17/2024 [id number] 4 AFRICA CHAUHAN 2023 30 [facility] [place] [facility] Allergies, Adverse Reactions, Alerts Combined list of allergies from Department of Defense and Veterans Affairs facilities. It does not include entries that were removed or entered in error. Substance Category Reaction Severity Reaction type Status Date Reported Comments Source YENIFERPRIL Propensity to adverse reactions to drug (finding) Cough active 0 [facility] Immunizations Combined list of available immunizations from the Department of Defense and Veterans Affairs facilities. 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 Status Comments Source COVID-19 (BrightBytes), MRNA, LNP-S, BIVALENT, PF, 30 MCG/0.3 ML DOSE 2022 300 complet ed [facility] COVID-19 (PFIZER), MRNA, LNP-S, PF, 30 MCG/0.3 ML DOSE, JAMES-SUCROSE (AGES 12+ YEARS) 2021 217 complet [facility] COVID-19 ([employer]), MRNA, LNP-S, PF, 30 MCG/0.3 ML DOSE 2020 208 complet [facility] ZOSTER RECOMBINANT 2 2020 187 complet [facility] INFLUENZA VACCINE, QUADRIVALENT, ADJUVANTED 2020 205 complet [facility] INFLUENZA, UNSPECIFIED FORMULATION 2020 88 complet [facility] ZOSTER RECOMBINANT 1 2020 187 complet [facility] COVID-19 ([employer]), MRNA, LNP-S, PF, 30 MCG/0.3 ML DOSE 2 2020 208 complet [facility] COVID-19 ([employer]), MRNA, LNP-S, PF, 30 MCG/0.3 ML DOSE 1 2020 208 complet [facility] INFLUENZA VACCINE, QUADRIVALENT, ADJUVANTED 2019 205 complet [facility] INFLUENZA, TRIVALENT, ADJUVANTED 2018 168 complet [facility] INFLUENZA, SEASONAL, INJECTABLE 2018 141 complet [facility] INFLUENZA, SEASONAL, INJECTABLE 2017 141 complet [facility] INFLUENZA, TRIVALENT, ADJUVANTED 2017 168 complet [facility] INFLUENZA, HIGH DOSE SEASONAL 2016 135 complet [facility] PNEUMOCOCCAL POLYSACCHARID E PPV23 2016 33 complet ed [employer] , [id number], 06/03/18 [facility] TD (ADULT), 2 [...] Jul 17, 2023 04:23 PM Reporting Lab: [facility] [address] Performing Lab: [facility] [address] [facility] URINALYS IS SPECIFIC GRAVITY OF URINE 1.006 1.003 - 1.035 07/16 Specimen Type: URINE No comment entered. Ordering Provider: TERRENCE CHAUHAN Report Released Date/Time: Jul 17, 2023 04:23 PM Reporting Lab: [facility] [address] Performing Lab: [facility] [address] [place] [facility] URINALYS IS BILIRUBIN. TOTAL [PRESENCE] IN URINE BY TEST STRIP NEGATIVE 07/16 Specimen Type: URINE No comment entered. Ordering Provider: TERRENCE CHAUHAN Report Released Date/Time: Jul 17, 2023 04:23 PM Reporting Lab: [facility] [address] Performing Lab: [facility] [address] [place] [facility] URINALYS IS KETONES [MASS/VOLU ME] IN URINE BY TEST STRIP NEGATIVE 07/16 Specimen Type: URINE No comment entered. Ordering Provider: TERRENCE CHAUHAN Report Released Date/Time: Jul 17, 2023 04:23 PM Reporting Lab: [facility] [address] Performing Lab: [facility] [address] [place] [facility] URINALYS IS GLUCOSE [MASS/VOLU ME] IN URINE BY TEST STRIP NEGATIVE mg/dL 07/16 Specimen Type: URINE No comment entered. Ordering Provider: TERRENCE CHAUHAN Report Released Date/Time: Jul 17, 2023 04:23 PM Reporting Lab: [facility] [address] Performing Lab: [facility] [address] [place] [facility] URINALYS IS PROTEIN [MASS/VOLU ME] IN URINE BY TEST STRIP NEGATIVE mg/dL 07/16 Specimen Type: URINE No comment entered. Ordering Provider: TERRENCE CHAUHAN Report Released Date/Time: Jul 17, 2023 04:23 PM Reporting Lab: [facility] [address] Performing Lab: [facility] [address] [place] [facility] URINALYS IS PH OF URINE BY TEST STRIP 7.0 5.0 - 8.0 07/16 Specimen Type: URINE No comment entered. Ordering Provider: TERRENCE CAHUHAN Report Released Date/Time: Jul 17, 2023 04:23 PM Reporting Lab: [facility] [address] Performing Lab: [facility] [address] [place] [facility] URINALYS IS LEUKOCYTES [#/AREA] IN URINE SEDIMENT BY MICROSCOPY HIGH POWER FIELD <1/[HPF] 0 - 7 07/16 Specimen Type: URINE No comment entered. Ordering Provider: TERRENCE CHAUHAN Report Released Date/Time: Jul 17, 2023 04:23 PM Reporting Lab: [facility] [address] Performing Lab: [facility] [address] [place] [facility] URINALYS IS BACTERIA [PRESENCE] IN URINE SEDIMENT BY LIGHT MICROSCOPY NONE SEEN 07/16 Specimen Type: URINE No comment entered. Ordering Provider: TERRENCE CHAUHAN Report Released Date/Time: Jul 17, 2023 04:23 PM Reporting Lab: [facility] [address] Performing Lab: [facility] [address] [place] [facility] URINALYS IS ERYTHROCYT ES [#/AREA] IN URINE SEDIMENT BY MICROSCOPY HIGH POWER FIELD <1/[HPF] 0 - 3 07/16 Specimen Type: URINE No comment entered. Ordering Provider: TERRENCE CHAUHAN Report Released Date/Time: Jul 17, 2023 04:23 PM Reporting Lab: [facility] [address] Performing Lab: [facility] [address] [place] [facility] URINALYS IS APPEARANCE OF URINE CLEAR 07/16 Specimen Type: URINE No comment entered. Ordering Provider: TERRENCE CHAUHAN Report Released Date/Time: Jul 17, 2023 04:23 PM Reporting Lab: [facility] [address] Performing Lab: [facility] [address] [place] [facility] URINALYS IS EPITHELIAL CELLS.SQUA MOUS [#/AREA] IN URINE SEDIMENT BY MICROSCOPY HIGH POWER FIELD NONE SEEN/[HP F] 07/16 Specimen Type: URINE No comment entered. Ordering Provider: TERRENCE CHAUHAN Report Released Date/Time: Jul 17, 2023 04:23 PM Reporting Lab: [facility] [address] Performing Lab: [facility] [address] [facility] URINALYS IS HEMOGLOBIN [PRESENCE] IN URINE BY TEST STRIP NEGATIVE 07/16 Specimen Type: URINE No comment entered. Ordering Provider: TERRENCE CHAUHAN Report Released Date/Time: Jul 17, 2023 04:23 PM Reporting Lab: [facility] [address] Performing Lab: [facility] [address] [facility] URINALYS IS NITRITE [PRESENCE] IN URINE BY TEST STRIP NEGATIVE 07/16 Specimen Type: URINE No comment entered. Ordering Provider: TERRENCE CHAUHAN Report Released Date/Time: Jul 17, 2023 04:23 PM Reporting Lab: [facility] [address] Performing Lab: [facility] [address] [facility] URINALYS IS LEUKOCYTE ESTERASE [PRESENCE] IN URINE BY TEST STRIP NEGATIVE 07/16 Specimen Type: URINE No comment entered. Ordering Provider: TERRENCE CHAUHAN Report Released Date/Time: Jul 17, 2023 04:23 PM Reporting Lab: [facility] [address] Performing Lab: [facility] [address] [facility] HEMOGLOB IN A1C HEMOGLOBIN A1C/HEMOGL OBIN.TOTAL IN [...] August 07, 2022 02:21 PM Reporting Lab: [facility] [address] Performing Lab: [facility] [address] [place] [facility] BASIC METABOLI C PANEL+MG CREATININE [MASS/VOLU ME] IN SERUM OR PLASMA 1.3 mg/dL 0.7 - 1.2 07/16 H Specimen Type: PLASMA No comment entered. Ordering Provider: TERRENCE CHAUHAN Report Released Date/Time: August 07, 2022 02:21 PM Reporting Lab: [facility] [address] Performing Lab: [facility] [address] [place] [facility] BASIC METABOLI C PANEL+MG UREA NITROGEN [MASS/VOLU ME] IN SERUM OR PLASMA 15 mg/dL 8 - 26 07/16 Specimen Type: PLASMA No comment entered. Ordering Provider: TERRENCE CHAUHAN Report Released Date/Time: August 07, 2022 02:21 PM Reporting Lab: [facility] [address] Performing Lab: [facility] [address] [place] [facility] BASIC METABOLI C PANEL+MG GLUCOSE [MASS/VOLU ME] IN SERUM OR PLASMA 84 mg/dL 70 - 100 07/16 Specimen Type: PLASMA No comment entered. Ordering Provider: TERRENCE CHAUHAN Report Released Date/Time: August 07, 2022 02:21 PM Reporting Lab: [facility] [address] Performing Lab: [facility] [address] [place] [facility] BASIC METABOLI C PANEL+MG SODIUM [MOLES/VOL UME] IN SERUM OR PLASMA 137 mmol/L 136 - 145 07/16 Specimen Type: PLASMA No comment entered. Ordering Provider: TERRENCE CHAUHAN Report Released Date/Time: August 07, 2022 02:21 PM Reporting Lab: [facility] [address] Performing Lab: [facility] [address] [place] [facility] BASIC METABOLI C PANEL+MG POTASSIUM [MOLES/VOL UME] IN SERUM OR PLASMA 4.6 mmol/L 3.5 - 5.1 07/16 Specimen Type: PLASMA No comment entered. Ordering Provider: TERRENCE CHAUHAN Report Released Date/Time: August 07, 2022 02:21 PM Reporting Lab: [facility] [address] Performing Lab: [facility] [address] [place] [facility] BASIC METABOLI C PANEL+MG CHLORIDE [MOLES/VOL UME] IN SERUM OR PLASMA 105 mmol/L 98 - 107 07/16 Specimen Type: PLASMA No comment entered. Ordering Provider: TERRENCE CHAUHAN Report Released Date/Time: August 07, 2022 02:21 PM Reporting Lab: [facility] [address] Performing Lab: [facility] [address] [place] [facility] BASIC METABOLI C PANEL+MG CARBON DIOXIDE, TOTAL [MOLES/VOL UME] IN SERUM OR PLASMA 24 mmol/L 22 - 29 07/16 Specimen Type: PLASMA No comment entered. Ordering Provider: TERRENCE CHAUHAN Report Released Date/Time: August 07, 2022 02:21 PM Reporting Lab: [facility] [address] Performing Lab: [facility] [address] [place] [facility] BASIC METABOLI C PANEL+MG CALCIUM [MASS/VOLU ME] IN SERUM OR PLASMA 8.9 mg/dL 8.4 - 10.2 07/16 Specimen Type: PLASMA No comment entered. Ordering Provider: TERRENCE CHAUHAN Report Released Date/Time: August 07, 2022 02:21 PM Reporting Lab: [facility] [address] Performing Lab: [facility] [address] [place] [facility] BASIC METABOLI C PANEL+MG MAGNESIUM [MASS/VOLU ME] IN SERUM OR PLASMA 2.1 mg/dL 1.6 - 2.6 07/16 Specimen Type: PLASMA No comment entered. Ordering Provider: TERRENCE CHAUHAN Report Released Date/Time: August 07, 2022 02:21 PM Reporting Lab: [facility] [address] Performing Lab: [facility] [address] [place] [facility] BASIC METABOLI C PANEL+MG ANION GAP IN SERUM OR PLASMA 8 mmol/L 5 - 15 07/16 Specimen Type: PLASMA No comment entered. Ordering Provider: TERRENCE CHAUHAN Report Released Date/Time: August 07, 2022 02:21 PM Reporting Lab: [facility] [address] Performing Lab: [facility] [address] [place] [facility] BASIC METABOLI C PANEL+MG GLOMERULAR FILTRATION RATE/1.73 SQ M.PREDICTE D [VOLUME RATE/AREA] IN SERUM, PLASMA OR BLOOD BY CREATININE -BASED FORMULA (CKD-EPI 2020) 56 60 07/16 L Specimen Type: PLASMA No comment entered. Ordering Provider: TERRENCE CHAUHAN Report Released Date/Time: August 07, 2022 02:21 PM Reporting Lab: [facility] [address] Performing Lab: [facility] [address] [place] [facility] CBC LEUKOCYTES [#/VOLUME] IN BLOOD BY AUTOMATED COUNT 8.72 10*3/uL 4.0 - 11.0 07/16 Specimen Type: BLOOD No comment entered. Ordering Provider: TERRENCE CHAUHAN Report Released Date/Time: August 07, 2022 02:21 PM Reporting Lab: [facility] [address] Performing Lab: [facility] [address] [place] [facility] CBC ERYTHROCYT ES [#/VOLUME] IN BLOOD BY AUTOMATED COUNT 4.11 10*6/uL 4.6 - 6.2 07/16 L Specimen Type: BLOOD No comment entered. Ordering Provider: TERRENCE CHAUHAN Report Released Date/Time: August 07, 2022 02:21 PM Reporting Lab: [facility] [address] Performing Lab: [facility] [address] [place] [facility] CBC HEMOGLOBIN [MASS/VOLU ME] IN BLOOD 13.4 g/dL 13.5 - 17.9 07/16 L Specimen Type: BLOOD No comment entered. Ordering Provider: TERRENCE CHAUHAN Report Released Date/Time: August 07, 2022 02:21 PM Reporting Lab: [facility] [address] Performing Lab: [facility] [address] [place] [facility] CBC HEMATOCRIT [VOLUME FRACTION] OF BLOOD BY AUTOMATED COUNT 39.7 41 - 54 07/16 L Specimen Type: BLOOD No comment entered. Ordering Provider: TERRENCE CHAUHAN Report Released Date/Time: August 07, 2022 02:21 PM Reporting Lab: [facility] [address] Performing Lab: [facility] [address] [place] [facility] CBC MCV [ENTITIC VOLUME] BY AUTOMATED COUNT 96.6 fL 80 - 100 07/16 Specimen Type: BLOOD No comment entered. Ordering Provider: TERRENCE CHAUHAN Report Released Date/Time: August 07, 2022 02:21 PM Reporting Lab: [facility] [address] Performing Lab: [facility] [address] [place] [facility] CBC MCH [ENTITIC MASS] BY AUTOMATED COUNT 32.6 pg 27 - 33 07/16 Specimen Type: BLOOD No comment entered. Ordering Provider: TERRENCE CHAUHAN Report Released Date/Time: August 07, 2022 02:21 PM Reporting Lab: [facility] [address] Performing Lab: [facility] [address] [place] [facility] CBC MCHC [MASS/VOLU ME] BY AUTOMATED COUNT 33.8 g/dL 32.0 - 37.5 07/16 Specimen Type: BLOOD No comment entered. Ordering Provider: TERRENCE CHAUHAN Report Released Date/Time: August 07, 2022 02:21 PM Reporting Lab: [facility] [address] Performing Lab: [facility] [address] [place] [facility] CBC PLATELETS [#/VOLUME] IN BLOOD BY AUTOMATED COUNT 159 10*3/uL 150 - 400 07/16 Specimen Type: BLOOD No comment entered. Ordering Provider: TERRENCE CHAUHAN Report Released Date/Time: August 07, 2022 02:21 PM Reporting Lab: [facility] [address] Performing Lab: [facility] [address] [place] [facility] CBC PLATELET MEAN VOLUME [ENTITIC VOLUME] IN BLOOD BY AUTOMATED COUNT 9.6 fL 7.4 - 10.4 07/16 Specimen Type: BLOOD No comment entered. Ordering Provider: TERRENCE CHAUHAN Report Released Date/Time: August 07, 2022 02:21 PM Reporting Lab: [facility] [address] Performing Lab: [facility] [address] [place] [facility] CBC ERYTHROCYT E DISTRIBUTI ON WIDTH [RATIO] BY AUTOMATED COUNT 14.1 11.5 - 14.5 07/16 Specimen Type: BLOOD No comment entered. Ordering Provider: TERRENCE CHAUHAN Report Released Date/Time: August 07, 2022 02:21 PM Reporting Lab: [facility] [address] Performing Lab: [facility] [address] [place] [facility] LIVER FUNCTION TESTS BILIRUBIN. TOTAL [MASS/VOLU ME] IN SERUM OR PLASMA 0.8 mg/dL 0.2 - 1.2 07/16 Specimen Type: PLASMA No comment entered. Ordering Provider: TERRENCE CHAUHAN Report Released Date/Time: August 07, 2022 02:21 PM Reporting Lab: [facility] [address] Performing Lab: [facility] [address] [place] [facility] LIVER FUNCTION TESTS ALKALINE PHOSPHATAS E [ENZYMATIC ACTIVITY/V OLUME] IN SERUM OR PLASMA 52 U/L 40 - 150 07/16 Specimen Type: PLASMA No comment entered. Ordering Provider: TERRENCE CHAUHAN Report Released Date/Time: August 07, 2022 02:21 PM Reporting Lab: [facility] [address] Performing Lab: [facility] [facility] [address] [place] [facility] LIVER FUNCTION TESTS ALANINE AMINOTRANS FERASE [ENZYMATIC ACTIVITY/V OLUME] IN SERUM OR PLASMA 20 U/L <55 - 55 07/16 Specimen Type: PLASMA No comment entered. Ordering Provider: TERRENCE CHAUHAN Report Released Date/Time: August 07, 2022 02:21 PM Reporting Lab: [facility] [address] Performing Lab: [facility] [address] [place] [facility] LIVER FUNCTION TESTS ASPARTATE AMINOTRANS FERASE [ENZYMATIC ACTIVITY/V OLUME] IN SERUM OR PLASMA 19 U/L <34 - 34 07/16 Specimen Type: PLASMA No comment entered. Ordering Provider: TERRENCE CHAUHAN Report Released Date/Time: August 07, 2022 02:21 PM Reporting Lab: [facility] [address] Performing Lab: [facility] [address] [place] [facility] LIVER FUNCTION TESTS GAMMA GLUTAMYL TRANSFERAS E [ENZYMATIC ACTIVITY/V OLUME] IN SERUM OR PLASMA 38 U/L <64 - 64 07/16 Specimen Type: PLASMA No comment entered. Ordering Provider: TERRENCE CHAUHAN Report Released Date/Time: August 07, 2022 02:21 PM Reporting Lab: [facility] [address] Performing Lab: [facility] [address] [place] [facility] PSA PROSTATE SPECIFIC AG [MASS/VOLU ME] IN SERUM OR PLASMA 3.84 ng/mL <4.00 - 4.00 07/16 Specimen Type: SERUM No comment entered. Ordering Provider: TERRENCE CHAUHAN Report Released Date/Time: August 07, 2022 02:21 PM Reporting Lab: [facility] [address] Performing Lab: [facility] [address] [place] [facility] CREATINI NE(INCLU SATHYA EGFR) CREATININE [MASS/VOLU ME] IN SERUM OR PLASMA 1.2 mg/dL 0.7 - 1.2 04/16 Specimen Type: PLASMA No comment entered. Ordering Provider: HUYEN HYLTON Report Released Date/Time: Mar 07, 2023 02:00 PM Reporting Lab: [facility] [address] Performing Lab: [facility] [address] [place] [facility] CREATINI NE(INCLU SATHYA EGFR) GLOMERULAR FILTRATION RATE/1.73 SQ M.PREDICTE D [VOLUME RATE/AREA] IN SERUM, PLASMA OR BLOOD BY CREATININE -BASED FORMULA (CKD-EPI 2020) 62 60 04/16 Specimen Type: PLASMA No comment entered. Ordering Provider: HUYEN HYLTON Report Released Date/Time: Mar 07, 2023 02:00 PM Reporting Lab: [facility] [address] Performing Lab: [facility] [address] [facility] [place] [facility] CBC LEUKOCYTES [#/VOLUME] IN BLOOD BY AUTOMATED COUNT 8.06 10*3/uL 4.0 - 11.0 04/16 Specimen Type: BLOOD No comment entered. Ordering Provider: HUYEN HYLTON Report Released Date/Time: Mar 07, 2023 02:00 PM Reporting Lab: [facility] [address] Performing Lab: [facility] [address] [place] [facility] CBC ERYTHROCYT ES [#/VOLUME] IN BLOOD BY AUTOMATED COUNT 4.03 10*6/uL 4.6 - 6.2 04/16 L Specimen Type: BLOOD No comment entered. Ordering Provider: HUYEN HYLTON Report Released Date/Time: Mar 07, 2023 02:00 PM Reporting Lab: [facility] [address] Performing Lab: [facility] [address] [place] [facility] CBC HEMOGLOBIN [MASS/VOLU ME] IN BLOOD 13.1 g/dL 13.5 - 17.9 04/16 L Specimen Type: BLOOD No comment entered. Ordering Provider: HUYEN HYLTON Report Released Date/Time: Mar 07, 2023 02:00 PM Reporting Lab: [facility] [address] Performing Lab: [facility] [address] [place] [facility] CBC HEMATOCRIT [VOLUME FRACTION] OF BLOOD BY AUTOMATED COUNT 38.9 41 - 54 04/16 L Specimen Type: BLOOD No comment entered. Ordering Provider: HUYEN HYLTON S Report Released Date/Time: Mar 07, 2023 02:00 PM Reporting Lab: [facility] [address] Performing Lab: [place] [address] [place] [facility] CBC MCV [ENTITIC VOLUME] BY AUTOMATED COUNT 96.5 fL 80 - 100 04/16 Specimen Type: BLOOD No comment entered. Ordering Provider: HUYEN HYLTON S Report Released Date/Time: Mar 07, 2023 02:00 PM Reporting Lab: [facility] [address] Performing Lab: [facility] [address] [place] [facility] CBC MCH [ENTITIC MASS] BY AUTOMATED COUNT 32.5 pg 27 - 33 04/16 Specimen Type: BLOOD No comment entered. Ordering Provider: HUYEN HYLTON S Report Released Date/Time: Mar 07, 2023 02:00 PM Reporting Lab: [facility] [address] Performing Lab: [facility] [address] [place] [facility] CBC MCHC [MASS/VOLU ME] BY AUTOMATED COUNT 33.7 g/dL 32.0 - 37.5 04/16 Specimen Type: BLOOD No comment entered. Ordering Provider: HUYEN HYLTON S Report Released Date/Time: Mar 07, 2023 02:00 PM Reporting Lab: [facility] [address] Performing Lab: [facility] [address] [place] [facility] CBC PLATELETS [#/VOLUME] IN BLOOD BY AUTOMATED COUNT 157 10*3/uL 150 - 400 04/16 Specimen Type: BLOOD No comment entered. Ordering Provider: HUYEN HYLTON Report Released Date/Time: Mar 07, 2023 02:00 PM Reporting Lab: [facility] [address] Performing Lab: [facility] [address] [place] [facility] CBC PLATELET MEAN VOLUME [ENTITIC VOLUME] IN BLOOD BY AUTOMATED COUNT 9.7 fL 7.4 - 10.4 04/16 Specimen Type: BLOOD No comment entered. Ordering Provider: HUYEN HYLTON S Report Released Date/Time: Mar 07, 2023 02:00 PM Reporting Lab: [facility] [address] Performing Lab: [facility] [address] [place] [facility] CBC ERYTHROCYT E DISTRIBUTI ON WIDTH [RATIO] BY AUTOMATED COUNT 14.5 11.5 - 14.5 04/16 Specimen Type: BLOOD No comment entered. Ordering Provider: HUYEN HYLTON S Report Released Date/Time: Mar 07, 2023 02:00 PM Reporting Lab: [facility] [address] Performing Lab: [facility] [address] [place] [facility] AST/SGOT ASPARTATE AMINOTRANS FERASE [ENZYMATIC ACTIVITY/V OLUME] IN SERUM OR PLASMA 22 U/L <34 - 34 04/16 Specimen Type: PLASMA No comment entered. Ordering Provider: HUYEN HYLTON S Report Released Date/Time: Mar 07, 2023 02:00 PM Reporting Lab: [facility] [address] Performing Lab: [facility] [address] [place] [facility] ALT/SGPT ALANINE AMINOTRANS FERASE [ENZYMATIC ACTIVITY/V OLUME] IN SERUM OR PLASMA 19 U/L <55 - 55 04/16 Specimen Type: PLASMA No comment entered. Ordering Provider: HUYEN HYLTON S Report Released Date/Time: Mar 07, 2023 02:00 PM Reporting Lab: [facility] [address] Performing Lab: [facility] [address] [place] [facility] Vital Signs Combined list of inpatient and [...] DC Date Status Disposition Source [place] [facility] Outpatient Encounter [id number] 04/24 [facility] [place] [facility] EMERGENCY DEPT VISIT SF MDM [id number] Diagnos is: ICD-10- CM Z76.0 Encount er for issue of repeat prescri ption<b r/> AICHA GALLEGOS Ana 05/09 [facility] Outpatient Encounter [id number] 05/09 [facility] [place] [facility] Outpatient Encounter [id number] 06/12 [facility] [place] [facility] [place] [facility] Outpatient Encounter [id number] 07/15 [facility] [place] [facility] [place] [facility] OFFICE O/P EST MOD 30-39 MIN [id number] Diagnos is: ICD-10- CM Z00.01 Encount er for general adult medical exam w abnorma l finding s
RILEY,DANETTE LY E 08/07 [facility] [place] [facility] [place] [facility] Outpatient Encounter [id number] 08/07 [facility] [place] [facility] [place] [facility] Outpatient Encounter [id number] OLESYA ROGERS 08/12 [facility] [place] [facility] [place] [facility] Outpatient Encounter [id number] OLESYA ROGERS 08/12 [place] [facility] [place] [facility] Outpatient Encounter [id number] Ana CHAUHAN 09/12 [place] [facility] [place] [facility] Outpatient Encounter [id number] 11/06 [place] [facility] [place] [facility] Outpatient Encounter [id number] 12/08 [place] [facility] [place] [facility] Outpatient Encounter [id number] 12/12 [place] [facility] [place] [facility] Outpatient Encounter [id number] 01/17 [place] [facility] [place] [facility] Outpatient Encounter [id number] 02/19 [place] [facility] [place] [facility] Outpatient Encounter [id number] 02/24 [place] [facility] [place] [facility] Outpatient Encounter [id number] 03/07 [place] [facility] QNHP OL DIG ASSMT&MGMT 5-10 [id number] Diagnos is: ICD-10- CM Z79.01 [facility] (curren t) use of anticoa gulants
ELLEN GARCIA 05/29 [facility] [place] [facility] [place] [facility] OFFICE O/P EST MOD 30 MIN [id number] Diagnos is: ICD-10- CM Z00.01 Encount er for general adult medical exam w abnorma l finding s
Ana CHAUHAN 07/16 [facility] [place] [facility] [place] [facility] Outpatient Encounter [id number] 07/17 [facility] [place] [facility] Social History Combined list of available smoking, tobacco, and other social history from [facility] and [facility] facilities. Social History Type Response Date Comment Sour e Tobacco smoking status VTIS ME-TOBACCO FORMER USER 07/17/2023 [facility] History of tobacco use ME-TOBACCO QUIT 1 TO < 5 YRS 07/17/2023 [facility] History of tobacco use ME-TOBACCO QUIT 1 TO < 5 YRS 08/07/2022 [facility] History of tobacco use ME-TOBACCO FORMER USER 10/16/2020 [facility] History of tobacco use ME-TOBACCO USE MED NO 03/29/2019 [facility] History of tobacco use ME-TOBACCO USE WI 30 MIN OF WAKEUP 02/17/2018 [facility] History of tobacco use CURRENT TOBACCO USER 02/12/2017 [facility] History of tobacco use CURRENT TOBACCO USER 04/25/2015 [facility] History of tobacco use CURRENT TOBACCO USER 04/21/2014 [facility] History of tobacco use CURRENT TOBACCO USER 04/20/2013 [facility] History of tobacco use CURRENT TOBACCO USER 03/20/2012 [facility] History of tobacco use CURRENT TOBACCO USER 02/06/2011 [facility] History of tobacco use CURRENT TOBACCO USER 01/02/2010 [facility]
--- OUTSIDE RECORDS SUMMARY | 2023-09-18 15:24 | XMS_ITS | Data Portability ---
Author Organization [place] [facility], [employer] Address [address] [facility] [place] [address] Assessment Encounter Date Assessment Date Assessment LastModified [...] user Active 2015 Tobacco user; Original Code: 560065631 Origi nal Codesystem: SNOMED CT Classificati on: Medical Confirm ation Status: Probable Not Available [facility] 09:10:17 Onychomycosis of toenails Active 2015 Onychomycosis of toenails; Original Code: 0207462025 Orig inal Codesystem: SNOMED CT Classificati on: Medical Confirm ation Status: Confirmed Not Available [facility] 09:10:17 Heart disease Active 2021 Heart disease; Original Code: 06115617 Origin al Codesystem: SNOMED CT Classificati on: Medical Confirm ation Status: Confirmed Not Available [facility] 3 09:10:17 Corns and callus Active 2015 Corns and callus; Original Code: 314318923 Origi nal Codesystem: SNOMED CT Classificati on: Medical Confirm ation Status: Confirmed Not Available [facility] 3 09:10:17 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; Original Code: 1624849655 Orig inal Codesystem: SNOMED CT Classificati on: Medical Confirm ation Status: Confirmed Not Available [facility] 3 09:10:17 Foot pain Active 2015 Foot pain; Original Code: 935125950 Origi nal Codesystem: SNOMED CT Classificati on: Medical Confirm ation Status: Confirmed Not Available [facility] 3 09:10:17 Acquired hallux valgus Active 2015 Acquired hallux valgus; Original Code: 779239969 Origi nal Codesystem: SNOMED CT Classificati on: Medical Confirm ation Status: Confirmed Not Available [facility] 3 09:10:17 Acquired hallux malleus Active 2015 Acquired hallux malleus; Original Code: 14611899 Origin al Codesystem: SNOMED CT Classificati on: Medical Confirm ation Status: Confirmed Not Available [facility] 3 09:10:17 Atrial fibrillation Active 2015 Atrial fibrillation; Original Code: 82204454 Origin al Codesystem: SNOMED CT Classificati on: Medical Confirm ation Status: Confirmed Not Available [facility] 3 09:10:17 Hypertensive disorder Active 2015 Hypertensive disorder; Original Code: 2937025448 Orig inal Codesystem: SNOMED CT Classificati on: Medical Confirm ation Status: Confirmed Not Available [facility] 3 09:10:17 Notes:H/O: anticoagulant the rapy Original Code: 322795501 Original Codesystem: SNOMED CT Classification: Medical Confirmation Status: Confirmed Problem Notes None recorded. Procedures Surgical History Date Name Laterality Status Provider Name and Address Organization Details Recorded Time 10/24/[address] Hong Andres DPM [address] [place] [address], [phone], [facility] 10/23/2022 11:44:57 07/25/[address] Pitts completed Too Andres DPM [address] [place] [address], [phone], [facility] 07/24/2022 10:35:10 04/24/[address] Hong Andres DPM [address] [place] [address], [phone], [facility] 04/24/2022 11:13:18 Imaging [...] Updated DateTime 04/24/2022 190.5 cm 25 kg/m2 44794.47 g Mamta Corbett [facility] 04/24/2022 10:32:58 Social History None recorded. Functional Status None recorded. Mental Status None recorded. Family History Nothing Reported. Medical History No medical history recorded. Past Encounters Encounter ID Performer Location Encounter Start Date Encounter Closed Date Diagnosis/Indication Diagnosis SNOMED-CT Code [id number] Too Andres DPM [place] [facility] [address] [place] [id number] 04/24/2022 10:31:04 04/24/2022 13:46:36 Onychomycosis 351199689 Peripheral vascular disease [id number] Too Andres DPM [facility] [address] [place] [phone] 07/24/2022 10:14:25 07/25/2022 09:45:42 Onychomycosis 067020448 Peripheral vascular disease [id number] Too Andres DPM [place] [facility] [address] [place] [address] 10/23/2022 10:13:43 10/24/2022 09:44:58 Onychomycosis 005251006 Peripheral vascular disease 572729197 Health Concerns Section Related Observation LastModified by Organization Detai ls LastModified Time None Recorded Concern Status LastModified by Organization Details LastModified Time None Recorded Advance Directives Directive None Recorded Payers Encounter Date Sequence Insurance Name Policy Number Policy Kevin Covered Member ID Kevin Member ID Guarantor Name 10/23/2022 1 [employer]) [id number] Bola Zurita [id number] Bola Zurita 07/24/2022 1 [place] [id number] Bola Zurita [id number] Bola Zurita 04/24/2022 1 [place]) [id number] Bola J Parminder [id number] Bola Zurita Notes Date Note Type Note Provider Name and Address Organization Details Recorded Time 04/24/2022 text/html HPI Notes: Pawel salmeron is a 77 year old male established patient who presents with the chief complaint. Presents today for evaluation of problematic toenails and feet in general. They relate chronic thickening and deformity to their toenails that has not responded to self-trimming, topical pfwf-azm-nociqyf anti-fungal therapy, foot soaks, and other similar [...] and treatment options. Too Andres DPM [address] [place], [address], [facility] 04/24/2022 11:14:44 07/24/2022 text/html HPI Notes: Pawel salmeron is a 77 year old male established patient who presents with the chief complaint. Presents today for evaluation of problematic toenails and feet in general. They relate chronic thickening and deformity to their toenails that has not responded to self-trimming, topical wfzj-ytl-matalme anti-fungal therapy, foot soaks, and other similar conservative treatments. Nails are painful with catching on shoegear and socks. Denies any recent foot injury or infection. Claudication symptoms: No Burning symptoms: No Paresthesia: Subjective numbness to the left lower extremity consistent with his previous surgical procedures [facility] Patient presents for further evaluation and treatment options. Too Andres DPM [address] [place], [address], [facility] 07/24/2022 10:35:54 10/23/2022 text/html HPI Notes: Pawel salmeron is a 77 year old male established patient who presents with the chief complaint. Presents today for evaluation of problematic toenails and feet in general. They relate chronic thickening and deformity to their toenails that has not responded to self-trimming, topical dvqq-mxo-lpbzkfh anti-fungal therapy, foot soaks, and other similar conservative treatments. Nails are painful with catching on shoegear and socks. Denies any recent foot injury or infection. Claudication symptoms: No Burning symptoms: No Paresthesia: Subjective numbness to the left lower extremity consistent with his previous surgical procedures performed through [facility] Patient presents for further evaluation and treatment options. Too Andres DPM [address] [place], [address], [facility] 10/23/2022 11:45:19
== END 2023-09-18 15:15 | disposition home or self-care (01) ==
LOC: WOUND 15:21
PROVIDERS: PCP Family Medicine; Visit Provider Nurse Practitioner Family
DX: L72.0 Epidermal cyst (principal)
CPT/HCPCS: G0463

== ENCOUNTER 2023-09-22 13:25 | Outpatient (CLI) | payer MEDICARE, BC, SELFPAY ==
--- OUTSIDE RECORDS SUMMARY | 2023-09-22 13:28 | XMS_ITS | Data Portability ---
Author Organization [place] - [facility], [employer] Address [address] [facility] [place] [address] Assessment Encounter Date Assessment Date Assessment LastModified [...] user Active 2015 Tobacco user; Original Code: 639352335 Origi nal Codesystem: SNOMED CT Classificati on: Medical Confirm ation Status: Probable Not Available [facility] 09:10:17 Onychomycosis of toenails Active 2015 Onychomycosis of toenails; Original Code: 5708544502 Orig inal Codesystem: SNOMED CT Classificati on: Medical Confirm ation Status: Confirmed Not Available [facility] 09:10:17 Heart disease Active 2021 Heart disease; Original Code: 50858300 Origin al Codesystem: SNOMED CT Classificati on: Medical Confirm ation Status: Confirmed Not Available [facility] 3 09:10:17 Corns and callus Active 2015 Corns and callus; Original Code: 049576119 Origi nal Codesystem: SNOMED CT Classificati on: Medical Confirm ation Status: Confirmed Not Available [facility] 3 09:10:17 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; Original Code: 3546880834 Orig inal Codesystem: SNOMED CT Classificati on: Medical Confirm ation Status: Confirmed Not Available [facility] 3 09:10:17 Foot pain Active 2015 Foot pain; Original Code: 259497016 Origi nal Codesystem: SNOMED CT Classificati on: Medical Confirm ation Status: Confirmed Not Available [facility] 3 09:10:17 Acquired hallux valgus Active 2015 Acquired hallux valgus; Original Code: 128392490 Origi nal Codesystem: SNOMED CT Classificati on: Medical Confirm ation Status: Confirmed Not Available [facility] 3 09:10:17 Acquired hallux malleus Active 2015 Acquired hallux malleus; Original Code: 83355431 Origin al Codesystem: SNOMED CT Classificati on: Medical Confirm ation Status: Confirmed Not Available [facility] 3 09:10:17 Atrial fibrillation Active 2015 Atrial fibrillation; Original Code: 25939768 Origin al Codesystem: SNOMED CT Classificati on: Medical Confirm ation Status: Confirmed Not Available [facility] 3 09:10:17 Hypertensive disorder Active 2015 Hypertensive disorder; Original Code: 5422938477 Orig inal Codesystem: SNOMED CT Classificati on: Medical Confirm ation Status: Confirmed Not Available [facility] 3 09:10:17 Notes:H/O: anticoagulant the rapy Original Code: 747970798 Original Codesystem: SNOMED CT Classification: Medical Confirmation Status: Confirmed Problem Notes None recorded. Procedures Surgical History Date Name Laterality Status Provider Name and Address Organization Details Recorded Time 10/24/[address] Hong Andres DPM [address] [place] [address], [phone], [facility] 10/23/2022 11:44:57 07/25/[address] Pitts completed Too Andres DPM [address] [place] [address], [phone], [facility] 07/24/2022 10:35:10 04/24/[address] Hong Adnres DPM [address] [place] [address], [phone], [facility] [...] Updated DateTime 04/24/2022 190.5 cm 25 kg/m2 93281.47 g Mamta Corbett [facility] 04/24/2022 10:32:58 Social History None recorded. Functional Status None recorded. Mental Status None recorded. Family History Nothing Reported. Medical History No medical history recorded. Past Encounters Encounter ID Performer Location Encounter Start Date Encounter Closed Date Diagnosis/Indication Diagnosis SNOMED-CT Code [id number] Too Andres DPM [facility] [facility] [address] [place] [phone] 04/24/2022 10:31:04 04/24/2022 13:46:36 Onychomycosis 464523107 Peripheral vascular disease [id number] Too Andres DPM [facility] [address] [place] [id number] 07/24/2022 10:14:25 07/25/2022 09:45:42 Onychomycosis 631179258 Peripheral vascular disease [id number] Too Andres DPM [place] [facility] [address] [place] [address] 10/23/2022 10:13:43 10/24/2022 09:44:58 Onychomycosis 569900246 Peripheral vascular disease 500488637 Health Concerns Section Related Observation LastModified by Organization Detai ls LastModified Time None Recorded Concern Status LastModified by Organization Details LastModified Time None Recorded Advance Directives Directive None Recorded Payers Encounter Date Sequence Insurance Name Policy Number Policy Kevin Covered Member ID Kevin Member ID Guarantor Name 10/23/2022 1 [place]) [id number] Bola Zurita [id number] Bola Zurita 07/24/2022 1 [place] [id number] Bola Zurita [id number] Bola Zurita 04/24/2022 1 [place]) [id number] Bola J Parminder [id number] Bola Zurita Notes Date Note Type Note Provider Name and Address Organization Details Recorded Time 04/24/2022 text/html HPI Notes: Pawel salmeron is a 77 year old male established patient who presents with the chief complaint. Presents today for evaluation of problematic toenails and feet in general. They relate chronic thickening and deformity to their toenails that has not responded to self-trimming, topical nahs-mkr-nmlmrnt anti-fungal therapy, foot soaks, and other similar conservative treatments. Nails are painful with catching on shoegear and socks. Denies any recent foot injury or infection. Claudication symptoms: No Burning symptoms: No Paresthesia: Subjective numbness to the left lower extremity consistent with his previous surgical procedures performed through Vascular surgery in the [facility] Patient presents for further evaluation and treatment options. Too Andres DPM [address] [place], [address], [facility] 04/24/2022 11:14:44 07/24/2022 text/html HPI Notes: Pawel salmeron is a 77 year old male established patient who presents with the chief complaint. Presents today for evaluation of problematic toenails and feet in general. They relate chronic thickening and deformity to their toenails that has not responded to self-trimming, topical ttwx-mxz-kofseoc anti-fungal therapy, foot soaks, and other similar conservative treatments. Nails are painful with catching on shoegear and socks. Denies any recent foot injury or infection. Claudication symptoms: No Burning symptoms: No Paresthesia: Subjective numbness to the left lower extremity consistent with his previous surgical procedures performed through Vascular surgery in [facility] Patient presents for further evaluation and treatment options. Too Andres DPM [address] [place], [address], [facility] 07/24/2022 10:35:54 10/23/2022 text/html HPI Notes: Pawel salmeron is a 77 year old male established patient who presents with the chief complaint. Presents today for evaluation of problematic toenails and feet in general. They relate chronic thickening and deformity to their toenails that has not responded to self-trimming, topical cqex-waa-etfujpg anti-fungal therapy, foot soaks, and other similar conservative treatments. Nails are painful with catching on shoegear and socks. Denies any recent foot injury or infection. Claudication symptoms: No Burning symptoms: No Paresthesia: Subjective numbness to the left lower extremity consistent with his previous surgical procedures performed through Vascular surgery in [facility] Patient presents for further evaluation and treatment options. Too Andres DPM [address] [place], [address], [facility] 10/23/2022 11:45:19
--- OUTSIDE RECORDS SUMMARY | 2023-09-22 13:28 | XMS_ITS | Clinical Summary ---
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 LLE angiogram 2. LIBRARY HISTORIAN of [place] peroneal Panlobular emphysema 10/21/2018 COPD exacerbation 09/09/2018 [...] Department Care Team Description 08/05/2023 Lab Requisition [facility] [phone] Unknown, Doctor 08/04/2023 8:35 AM CDT Office Visit [facility] [address] [place] [address] Jena Pascual PA Follow Up (Boil) 08/04/2023 Travel 08/01/2023 8:35 AM CDT Office Visit [facility] [address] [place] [address] Jena Pascual PA Derm Problem 08/01/2023 Travel [...] T Respiratory Rate 18 03/17/2023 3:35 PM RETAIL ASSISTANT MANAGER Oxygen Saturation 96% 08/04/2023 8:35 AM CDT Inhaled Oxygen Concentration - - Weight 90.7 kg (200 lb) 08/04/2023 8:35 AM CDT Height 190.5 cm (6' 3) 03/17/2023 2:07 PM RETAIL ASSISTANT MANAGER Body Mass Index 25 03/17/2023 2:07 PM RETAIL ASSISTANT MANAGER Plan of Treatment Health Maintenance Due [...] back ANTI HCV Routine 05/16/2021 3:20 PM RETAIL ASSISTANT MANAGER Need for hepatitis C screening test CT CHEST WO Routine 08/29/2010 4:53 PM CDT Pulmonary nodules from Last 3 Months or Most Recently Relevant to Health Maintenance Results * LAB TRACKING EVENT (08/05/2023 2:01 PM CDT) Other (Other) Client Collect / Unknown 08/05/2023 2:01 PM CDT 08/05/2023 9:37 PM CDT Doctor Unknown LAB BILL ONLY [facility] [address] [place] [address], * PATH TISSUE EXAM (08/05/2023 2:01 PM CDT) Case Report Pathology Report ?Case: [id number] ? Authorizing Provider: ??Unknown, Doctor ?Collected: ? 08/05/2023 1401 ? Ordering Location: ? [facility] ?Received: ?08/06/2023 1013 ? Pathologist: ? Jose Rinaldi MD ? Specimen: ?Back ? 08/07/2023 4:47 PM CDT [facility] Final Diagnosis A) SKIN, BACK, CYST, EXCISION: 1. Epidermoid cyst 2. Negative for dysplasia or malignancy 08/07/2023 4:47 PM CDT [facility] Clinical Information back cyst 08/07/2023 4:47 PM CDT [facility] Gross Description A) Received in formalin, labeled with the patient's name and date of , is a 1.5 x 1.1 x 0.3 cm aggregate of pale-garcia cyst wall fragments admixed with garcia-white soft, friable cyst contents. ??The specimen is filtered and submitted entirely in 1 cassette. [facility] 08/06/2023 08/07/2023 4:47 PM CDT [facility] Microscopic Description The final diagnosis is based on microscopic examination of appropriate sections of all specimens. 08/07/2023 4:47 PM CDT [facility] Additional Information Interpreted at [facility] - [address], [place] [address] 08/07/2023 4:47 PM CDT [facility] Other (Back) 08/05/2023 2:01 PM CDT 08/06/2023 10:13 AM CDT Doctor Unknown PATHOLOGY/CYTOLOGY [facility] [address] [place] [address], * AEROBIC BACTERIAL CULTURE, STAIN (08/01/2023 9:30 AM CDT) CULTURE No Growth. 08/03/2023 3:00 PM CDT [facility] GRAM STAIN 4+ RBCs 08/03/2023 3:00 PM CDT [facility] GRAM STAIN 1+ PMNs 08/03/2023 3:00 PM CDT [facility] GRAM STAIN No Epithelial cells 08/03/2023 3:00 PM CDT [facility] GRAM STAIN 4+ Gram Positive Cocci 08/03/2023 3:00 PM CDT [facility] GRAM STAIN 3+ Gram Negative Bacilli 08/03/2023 3:00 PM CDT [facility] Other (Other) Non-Blood / Unknown 08/01/2023 9:30 AM CDT 08/01/2023 9:31 AM CDT Jena RICHARDSON MICROBIOLOGY [facility] [address] [place] [address], * ANTI HCV (05/16/2021 3:20 PM RETAIL ASSISTANT MANAGER) HEPATITIS C ANTIBODY Non-React edelmira Non-React edelmira 05/17/2021 1:21 AM RETAIL ASSISTANT MANAGER [facility] Comment:Antibodies to HCV no t detected; does not exclude the possibility of exposure to HCV. Blood BLOOD SPECIMEN / Unknown Venipuncture / Unknown 05/16/2021 3:20 PM RETAIL ASSISTANT MANAGER 05/16/2021 3:25 PM RETAIL ASSISTANT MANAGER Zak Garcia MD SEND OUTS Performing Organization Address City/[facility]/ZIP Co de Phone Number [facility] [address] [place] [address], * CT CHEST WO CONTRAST (08/29/2010 4:53 [...] Comments Code Status Discussion: Discussed Care Teams Bulwark Carpenter Relationship Specialty Start Date End Date Klever Monte MD [address] [place] [address] PCP - General Family Practice 06/12/22
== END 2023-09-22 13:26 | disposition home or self-care (01) ==
LOC: WOUND 13:26
PROVIDERS: PCP Family Medicine; Visit Provider Family Medicine
DX: L72.0 Epidermal cyst (principal)
CPT/HCPCS: 11042

== ENCOUNTER 2023-09-25 15:45 | Outpatient (CLI) | payer MEDICARE, BC, SELFPAY ==
--- OUTSIDE RECORDS SUMMARY | 2023-09-25 15:47 | XMS_ITS | Data Portability ---
Author Organization [place] - [facility], [employer] Address [address] [facility] [place] [address] Assessment Encounter Date Assessment Date Assessment LastModified [...] user Active 2015 Tobacco user; Original Code: 785684949 Origi nal Codesystem: SNOMED CT Classificati on: Medical Confirm ation Status: Probable Not Available [facility]17 Onychomycosis of toenails Active 2015 Onychomycosis of toenails; Original Code: 4856198458 Orig inal Codesystem: SNOMED CT Classificati on: Medical Confirm ation Status: Confirmed Not Available [facility] 3 09:10:17 Heart disease Active 2021 Heart disease; Original Code: 45585357 Origin al Codesystem: SNOMED CT Classificati on: Medical Confirm ation Status: Confirmed Not Available [facility] 3 09:10:17 Corns and callus Active 2015 Corns and callus; Original Code: 683945940 Origi nal Codesystem: SNOMED CT Classificati on: Medical Confirm ation Status: Confirmed Not Available [facility] 3 09:10:17 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; Original Code: 2468648706 Orig inal Codesystem: SNOMED CT Classificati on: Medical Confirm ation Status: Confirmed Not Available [facility] 3 09:10:17 Foot pain Active 2015 Foot pain; Original Code: 386488402 Origi nal Codesystem: SNOMED CT Classificati on: Medical Confirm ation Status: Confirmed Not Available [facility] 3 09:10:17 Acquired hallux valgus Active 2015 Acquired hallux valgus; Original Code: 950811344 Origi nal Codesystem: SNOMED CT Classificati on: Medical Confirm ation Status: Confirmed Not Available [facility] 3 09:10:17 Acquired hallux malleus Active 2015 Acquired hallux malleus; Original Code: 02650290 Origin al Codesystem: SNOMED CT Classificati on: Medical Confirm ation Status: Confirmed Not Available [facility] 3 09:10:17 Atrial fibrillation Active 2015 Atrial fibrillation; Original Code: 97084812 Origin al Codesystem: SNOMED CT Classificati on: Medical Confirm ation Status: Confirmed Not Available [facility] 3 09:10:17 Hypertensive disorder Active 2015 Hypertensive disorder; Original Code: 9978249485 Orig inal Codesystem: SNOMED CT Classificati on: Medical Confirm ation Status: Confirmed Not Available [facility] 3 09:10:17 Notes:H/O: anticoagulant the rapy Original Code: 023099861 Original Codesystem: SNOMED CT Classification: Medical Confirmation Status: Confirmed Problem Notes None recorded. Procedures Surgical History Date Name Laterality Status Provider Name and Address Organization Details Recorded Time 10/24/[address] Hong Andres DPM [address] [place] [address], [phone], [facility] 10/23/2022 11:44:57 07/25/[address] Pitts completed Too Andres DPM [address] [place] [address], [phone], [facility] 07/24/2022 10:35:10 04/24/[address] Hong Andres DPM [address] [place] [address], [phone], [facility] 04/24/2022 11:13:18 [...] Updated DateTime 04/24/2022 190.5 cm 25 kg/m2 88325.47 g Mamta Corbett [facility] 04/24/2022 10:32:58 Social History None recorded. Functional Status None recorded. Mental Status None recorded. Family History Nothing Reported. Medical History No medical history recorded. Past Encounters Encounter ID Performer Location Encounter Start Date Encounter Closed Date Diagnosis/Indication Diagnosis SNOMED-CT Code [id number] Too Andres DPM [facility] [facility] [address] [place] [id number] 04/24/2022 10:31:04 04/24/2022 13:46:36 Onychomycosis 944768091 Peripheral vascular disease 927672032 [id number] Too Andres DPM [facility] [address] [place] [id number] 07/24/2022 10:14:25 07/25/2022 09:45:42 Onychomycosis 484139826 Peripheral vascular disease 695251925 7314 Too Andres DPM [place] [facility] [address] [place] [address] 10/23/2022 10:13:43 10/24/2022 09:44:58 Onychomycosis 445954599 Peripheral vascular disease 201714958 Health Concerns Section Related Observation LastModified by Organization Detai ls LastModified Time None Recorded Concern Status LastModified by Organization Details LastModified Time None Recorded Advance Directives Directive None Recorded Payers Encounter Date Sequence Insurance Name Policy Number Policy Kevin Covered Member ID Kevin Member ID Guarantor Name 10/23/2022 1 [place]) [id number] Bola Zurita [id number] Bola Zurita 07/24/2022 1 [place]) [id number] Bola Zurita [id number] Bola Zurita 04/24/2022 1 [place]) [id number] Bola J Parminder [id number] Bola Zurita Notes Date Note Type Note Provider Name and Address Organization Details Recorded Time 04/24/2022 text/html HPI Notes: Pawel salmeron is a 77 year old male established patient who presents with the chief complaint. Presents today for evaluation of problematic toenails and feet in general. They relate chronic thickening and deformity to their toenails that has not responded to self-trimming, topical vkbe-wpm-yybcjms anti-fungal therapy, foot soaks, and other similar conservative treatments. Nails are painful with catching on shoegear and socks. Denies any recent foot injury or infection. Claudication symptoms: No Burning symptoms: No Paresthesia: Subjective numbness to the left lower extremity consistent with his previous surgical procedures performed through Vascular surgery in the [facility] Patient presents for further evaluation and treatment options. Too Andres DPM [address] [place], [address], [facility] 04/24/2022 11:14:44 07/24/2022 text/html HPI Notes: Pawel salmeron is a 77 year old male established patient who presents with the chief complaint. Presents today for evaluation of problematic toenails and feet in general. They relate chronic thickening and deformity to their toenails that has not responded to self-trimming, topical vnba-fhp-blmyrvt anti-fungal therapy, foot soaks, and other similar conservative treatments. Nails are painful with catching on shoegear and socks. Denies any recent foot injury or infection. Claudication symptoms: No Burning symptoms: No Paresthesia: Subjective numbness to the left lower extremity consistent with his previous surgical procedures performed through Vascular surgery in [facility] Patient presents for further evaluation and treatment options. Too Andres DPM [address] [place], [address], [facility] 07/24/2022 10:35:54 10/23/2022 text/html HPI Notes: Pawel salmeron is a 77 year old male established patient who presents with the chief complaint. Presents today for evaluation of problematic toenails and feet in general. They relate chronic thickening and deformity to their toenails that has not responded to self-trimming, topical cels-ruf-tpjefyy anti-fungal therapy, foot soaks, and other similar conservative treatments. Nails are painful with catching on shoegear and socks. Denies any recent foot injury or infection. Claudication symptoms: No Burning symptoms: No Paresthesia: Subjective numbness to the left lower extremity consistent with his previous surgical procedures performed through Vascular surgery in [facility] Patient presents for further evaluation and treatment options. Too Andres DPM [address] [place], [address], [facility] 10/23/2022 11:45:19
--- OUTSIDE RECORDS SUMMARY | 2023-09-25 15:47 | XMS_ITS | Clinical Summary ---
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 LLE angiogram 2. 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 Panlobular emphysema 10/21/2018 COPD exacerbation 09/09/2018 [...] Department Care Team Description 08/05/2023 Lab Requisition [facility] [phone] Unknown, Doctor 08/04/2023 8:35 AM CDT Office Visit [facility] [address] [place] [address] Jena Pascual PA Follow Up (Boil) 08/04/2023 Travel 08/01/2023 8:35 AM CDT Office Visit [facility] [address] [place] [address] Jena Pascual PA Derm Problem 08/01/2023 Travel [...] T Respiratory Rate 18 03/17/2023 3:35 PM REGULATORY COMPLIANCE MANAGER Oxygen Saturation 96% 08/04/2023 8:35 AM CDT Inhaled Oxygen Concentration - - Weight 90.7 kg (200 lb) 08/04/2023 8:35 AM CDT Height 190.5 cm (6' 3) 03/17/2023 2:07 PM REGULATORY COMPLIANCE MANAGER Body Mass Index 25 03/17/2023 2:07 PM REGULATORY COMPLIANCE MANAGER Plan of Treatment Health Maintenance Due [...] back ANTI HCV Routine 05/16/2021 3:20 PM REGULATORY COMPLIANCE MANAGER Need for hepatitis C screening test CT CHEST WO Routine 08/29/2010 4:53 PM CDT Pulmonary nodules from Last 3 Months or Most Recently Relevant to Health Maintenance Results * LAB TRACKING EVENT (08/05/2023 2:01 PM CDT) Other (Other) Client Collect / Unknown 08/05/2023 2:01 PM CDT 08/05/2023 9:37 PM CDT Doctor Unknown LAB BILL ONLY [facility] [address] [place] [address], * PATH TISSUE EXAM (08/05/2023 2:01 PM CDT) Case Report Pathology Report ?Case: [id number] ? Authorizing Provider: ??Unknown, Doctor ?Collected: ? 08/05/2023 1401 ? Ordering Location: ? [facility] ?Received: ?08/06/2023 1013 ? Pathologist: ? Jose Rinaldi MD ? Specimen: ?Back ? 08/07/2023 4:47 PM CDT [facility] Final Diagnosis A) SKIN, BACK, CYST, EXCISION: 1. Epidermoid cyst 2. Negative for dysplasia or malignancy 08/07/2023 4:47 PM CDT [facility] [place] [facility] Clinical Information back cyst 08/07/2023 4:47 PM CDT [facility] Gross Description A) Received in formalin, labeled with the patient's name and date of , is a 1.5 x 1.1 x 0.3 cm aggregate of pale-garcia cyst wall fragments admixed with garcia-white soft, friable cyst contents. ??The specimen is filtered and submitted entirely in 1 cassette. [facility] 08/06/2023 08/07/2023 4:47 PM CDT [facility] Microscopic Description The final diagnosis is based on microscopic examination of appropriate sections of all specimens. 08/07/2023 4:47 PM CDT [facility] Additional Information Interpreted at [facility] - [address], [place] [address] 08/07/2023 4:47 PM CDT [facility] Other (Back) 08/05/2023 2:01 PM CDT 08/06/2023 10:13 AM CDT Doctor Unknown PATHOLOGY/CYTOLOGY [facility] [address] [place] [address], * AEROBIC BACTERIAL CULTURE, STAIN (08/01/2023 9:30 AM CDT) CULTURE No Growth. 08/03/2023 3:[address] [facility] GRAM STAIN 4+ RBCs 08/03/2023 3:[address] [facility] GRAM STAIN 1+ PMNs 08/03/2023 3:[address] [facility] GRAM STAIN No Epithelial cells 08/03/2023 3:[address] [facility] GRAM STAIN 4+ Gram Positive Cocci 08/03/2023 3:[address] [facility] GRAM STAIN 3+ Gram Negative Bacilli 08/03/2023 3:[address] [facility] Other (Other) Non-Blood / Unknown 08/01/2023 9:30 AM CDT 08/01/2023 9:31 AM CDT Jena RICHARDSON MICROBIOLOGY [facility] [address] [place] [address], * ANTI HCV (05/16/2021 3:20 PM REGULATORY COMPLIANCE MANAGER) HEPATITIS C ANTIBODY Non-React edelmira Non-React edelmira 05/17/2021 1:21 AM REGULATORY COMPLIANCE MANAGER [facility] Comment:Antibodies to HCV no t detected; does not exclude the possibility of exposure to HCV. Blood BLOOD SPECIMEN / Unknown Venipuncture / Unknown 05/16/2021 3:20 PM REGULATORY COMPLIANCE MANAGER 05/16/2021 3:25 PM REGULATORY COMPLIANCE MANAGER Zak Garcia MD SEND OUTS Performing Organization Address City/[facility]/ZIP Co de Phone Number [facility] [address] [place] [address], * CT CHEST WO CONTRAST (08/29/2010 4:53 [...] Comments Code Status Discussion: Discussed Care Teams Director Digital Sales Relationship Specialty Start Date End Date Klever Monte MD [address] [place] [address] PCP - General Family Practice 06/12/22
--- OUTSIDE RECORDS SUMMARY | 2023-09-25 15:47 | XMS_ITS | Continuity of Care Document ---
Author Name [facility] Organization [facility] Care Team Providers Care Typewriter Assembly And Parts Inspector Name Role Phone [facility] Unavailable Unavailable Problems Combined list of problems from Department of Defense and Veterans Affairs facilities. It does not include entries that were removed or entered in error. Problem Status Onset Date Problem Type Date of Resolution Comments Source CVD - Cerebrovascular Disease ([facility] [id number]) Active 03/19/20 20 Condition May 01, 2020 Entered By: YOAV CHAUHAN Comment: 03/19/20: L MCA CVA, Admit ANW. Cardio-embol ic d/t Warfarin DC [facility] CAD - Coronary Artery Disease ([facility] [id number]) Active 01/27/20 20 Condition Mar 13, 2020 Entered By: YOAV CHAUHAN Comment: 01/27/20: LAD and Dx stented w/SATHYA at [facility]. Plavix +ASA thru 01/26/21 [facility] Peripheral arterial insufficiency Active 01/21/20 20 Condition Mar 13, 2020 Entered By: YOAV CHAUHAN Comment: 01/21/20: L femoral Art occlusion per [facility]-->Fem -Tibial bypass planned [facility] Allergic rhinitis (SNOMED [place] 28643288) Active Condition [facility] Atrial fibrillation (SNOMED CT 41335545) Active Condition Apr 26, 2015 Entered By: YOAV CHAUHAN Comment: Warfarin through Miryam Rodriguez [facility] Co-Managed Care Active Condition Dec 25, 2017 Entered By: YOAV CHAUHAN Comment: Dr Garcia, Michael Horicon, F: [phone] , [facility] COPD - Chronic Obstructive Pulmonary Disease ([facility] [id number]) Active Condition Dec 25, 2017 Entered By: YOAV CHAUHAN Comment: Mometasone & Albuterol MDI's [facility] [place] of toe Active Condition Sep 08, 2019 Entered By: YOAV CHAUHAN Comment: R middle toe [facility] Current smoker Active Condition Apr 082015 Entered By: YOAV CHAUHAN Comment: Cigars, not cigarettes [facility] Essential hypertension (SNOMED CT 14073738) Active Condition [facility] Glucose intolerance Active Condition [facility] Nocturia due to benign prostatic hypertrophy Active Condition [facility] Health Maintenance (ICD-9-CM V65.9) Inactive Condition 04/26/2015 BELGICA MANCILLA [facility] Diagnosis: ICD-10-CM Z00.01 Encounter for general adult medical exam w abnormal findings [facility] Diagnosis: ICD-10-CM 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 [facility] Diagnosis: ICD-10-CM Z76.0 Encounter for issue of repeat prescription Active Diagnosis [facility] Medications Combined list of outpatient [...] S OF BREATH RESPIR ATORY (INHAL ATION) ACTIVE 07/17/2024 [id number] 4 AFRICA CHAUHAN 2023 2 [facility] ALBUTEROL 90MCG/ACTUA T (CFC-F) INHL,ORAL,8 .5GM DOSE COUNTER INHALE 2 PUFFS BY INHALATI ON FOUR TIMES A DAY NEEDED FOR SHORTNES S OF BREATH RESPIR ATORY (INHAL ATION) DISCONT INUED 08/08/2023 [id number] 3 AFRICA CHAUHAN 2022 2 [facility] APIXABAN 5MG TAB TAKE ONE TABLET BY MOUTH EVERY 12 HOURS TO PREVENT BLOOD CLOTS AND STROKE (ELIQUIS ) ORAL ACTIVE 05/29/2024 [id number] 4 MARIANO GARCIA 2023 180 [place] [facility] APIXABAN 5MG TAB TAKE ONE TABLET BY MOUTH EVERY 12 HOURS TO PREVENT BLOOD CLOTS AND STROKE (ELIQUIS ) ORAL DISCONT INUED 05/09/2023 [id number] 3 MARIANO GARCIA 2022 180 [facility] [facility] CHOLECALCIF JONNA 25MCG (1,000UNIT) TAB TAKE FIVE TABLETS BY MOUTH QOD ORAL ACTIVE AFRICA CHAUHAN 2016 [facility] FLUOCINONID E 0.1% CREAM,TOP APPLY A THIN LAYER TOPICALL Y TWICE A DAY NEEDED FOR RASH TOPICA L ACTIVE 12/13/2023 [id number] 3 AFRICA CHAUHAN 2022 60 [facility] FLUTICASONE 250MCG/SALM ETEROL 50MCG INHL,ORAL,D ISKUS,60 INHALE 1 PUFF BY INHALATI ON TWICE A DAY FOR COPD RESPIR ATORY (INHAL ATION) ACTIVE 07/17/2024 [id number] 4 AFRICA CHAUHAN 2023 3 [facility] FLUTICASONE 250MCG/SALM ETEROL 50MCG INHL,ORAL,D ISKUS,60 INHALE 1 PUFF BY INHALATI ON TWICE A DAY FOR COPD THIS REPLACES YOUR MOMETASO NE RESPIR ATORY (INHAL ATION) DISCONT INUED 08/08/2023 [id number] 4 AFRICA CHAUHAN 2022 3 [facility] FUROSEMIDE 20MG TAB TAKE ONE TABLET BY MOUTH THREE TIMES A WEEK FOR HEART FAILURE ORAL ACTIVE 02/25/2024 [id number] 3 Hong DONAHUE 2022 39 [facility] FUROSEMIDE 20MG TAB TAKE ONE TABLET BY MOUTH EVERY OTHER DAY FOR HEART FAILURE ORAL DISCONT INUED (EDIT) 08/13/2023 [id number] 3 AFRICA CHAUHAN 2022 45 [facility] FUROSEMIDE 20MG TAB TAKE ONE TABLET BY MOUTH EVERY MORNING FOR HEART FAILURE ORAL DISCONT INUED 08/08/2023 [id number] 3 AFRICA CHAUHAN 2022 90 [facility] HYDROCHLORO THIAZIDE 12.5MG TAB TAKE ONE TABLET BY MOUTH EVERY DAY FOR BLOOD PRESSURE ORAL DISCONT INUED 08/08/2023 [id number] 3 AFRICA CHAUHAN 2022 90 [facility] METOPROLOL SUCCINATE 100MG TAB,SA TAKE ONE AND ONE-HALF TABLETS BY MOUTH EVERY DAY ORAL DISCONT INUED 11/16/2022 [id number] 3 AFRICA CHAUHAN 2021 135 [facility] METOPROLOL SUCCINATE 50MG TAB,SA TAKE THREE TABLETS BY MOUTH EVERY DAY FOR BLOOD PRESSURE ORAL DISCONT INUED 08/08/2023 [id number] 3 AFRICA CHAUHAN 2022 270 [facility] METOPROLOL TARTRATE 100MG TAB TAKE ONE TABLET BY MOUTH TWICE A DAY FOR BLOOD PRESSURE ORAL ACTIVE 12/13/2023 [id number] 4 AFRICA CHAUHAN [place] 2022 180 [facility] NIFEDIPINE (EQV-CC) 60MG TAB,SA TAKE ONE TABLET BY MOUTH EVERY DAY FOR BLOOD PRESSURE ORAL DISCONT INUED BY PROVIDE R 08/08/2023 [id number] 3 AFRICA CHAUHAN [place] 2022 90 [facility] NIFEDIPINE (EQV-CC) 60MG TAB,SA TAKE ONE TABLET BY MOUTH EVERY DAY FOR BLOOD PRESSURE ORAL DISCONT INUED 09/11/2022 [id number] 3 AFRICA CHAUHAN [place] 2022 90 [facility] NIFEDIPINE (EQV-CC) 90MG TAB,SA TAKE ONE TABLET BY MOUTH EVERY DAY FOR BLOOD PRESSURE ORAL ACTIVE 07/17/2024 [id number] 4 AFRICA CHAUHAN [place] 2023 90 [facility] NIFEDIPINE (EQV-CC) 90MG TAB,SA TAKE ONE TABLET BY MOUTH EVERY DAY FOR BLOOD PRESSURE INCREASE D DOSE PER CO-MANAG ED CARE INCREASE D DOSE PER CO-MANAG ED CARE ORAL DISCONT INUED 12/13/2023 [id number] 4 AFRICA CHAUHAN 2022 90 [facility] POTASSIUM CHLORIDE 10MEQ TAB,SA TAKE ONE TABLET BY MOUTH THREE TIMES A WEEK FOR POTASSIU M SUPPLEME NT TAKE WITH FUROSEMI DE ORAL ACTIVE 02/25/2024 [id number] 3 Hong DONAHUE [facility]ESAR A 2022 39 [facility] POTASSIUM CHLORIDE 10MEQ TAB,SA TAKE ONE TABLET BY MOUTH EVERY OTHER DAY FOR POTRICARDOIU M SUPPLEME NT ORAL DISCONT INUED (EDIT) 08/13/2023 [id number] 3 AFRICA CHAUHAN 2022 45 [facility] POTASSIUM CHLORIDE 10MEQ TAB,SA TAKE ONE TABLET BY MOUTH EVERY DAY FOR CONGESTI VE HEART FAILURE ORAL DISCONT INUED 08/08/2023 [id number] 3 AFRICA CHAUHAN 2022 90 [facility] POTASSIUM CHLORIDE 10MEQ TAB,SA TAKE ONE TABLET BY MOUTH EVERY DAY FOR CONGESTI VE HEART FAILURE ORAL DISCONT INUED 11/16/2022 [id number] 3 AFRICA CHAUHAN 2021 90 [facility] ROSUVASTATI N CA 20MG TAB TAKE ONE TABLET BY MOUTH AT BEDTIME FOR CORONARY ARTERY DISEASE ORAL ACTIVE 07/17/2024 [id number] 4 AFRICA CHAUHAN 2023 90 [facility] ROSUVASTATI N CA 20MG TAB TAKE ONE TABLET BY MOUTH AT BEDTIME FOR CORONARY ARTERY DISEASE ORAL DISCONT INUED 08/08/2023 [id number] 4 AFRICA CHAUHAN 2022 90 [facility] TAMSULOSIN HCL 0.4MG CAP TAKE ONE CAPSULE BY MOUTH EVERY EVENING FOR PROSTATE ORAL ACTIVE 07/17/2024 [id number] 4 AFRICA CHAUHAN 2023 30 [facility] Allergies, Adverse Reactions, Alerts Combined list of allergies from Department of Defense and Veterans Affairs facilities. It does not include entries that were removed or entered in error. Substance Category Reaction Severity Reaction type Status Date Reported Comments Source LISINOPRIL Propensity to adverse reactions to drug (finding) Cough active 0 [facility] Immunizations Combined list of available immunizations from the Department of Defense and Veterans Affairs facilities. 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 Status Comments Source COVID-19 (Qoof), MRNA, LNP-S, BIVALENT, PF, 30 MCG/0.3 ML DOSE 2022 300 complet [facility] COVID-19 (Qoof), MRNA, LNP-S, PF, 30 MCG/0.3 ML DOSE, JAMES-SUCROSE (AGES 12+ YEARS) 2021 217 complet [facility] COVID-19 (Qoof), MRNA, LNP-S, PF, 30 MCG/0.3 ML DOSE 2020 208 complet [facility] ZOSTER RECOMBINANT 2 2020 187 complet [facility] INFLUENZA VACCINE, QUADRIVALENT, ADJUVANTED 2020 205 complet [facility] INFLUENZA, UNSPECIFIED FORMULATION 2020 88 complet [facility] ZOSTER RECOMBINANT 1 2020 187 complet [facility] COVID-19 (Qoof), MRNA, LNP-S, PF, 30 MCG/0.3 ML DOSE 2 2020 208 complet [facility] COVID-19 (Qoof), MRNA, LNP-S, PF, 30 MCG/0.3 ML DOSE 1 2020 208 complet [facility] INFLUENZA VACCINE, QUADRIVALENT, ADJUVANTED 2019 205 complet [facility] INFLUENZA, TRIVALENT, ADJUVANTED 2018 168 complet [facility] INFLUENZA, SEASONAL, INJECTABLE 2018 141 complet [facility] INFLUENZA, SEASONAL, INJECTABLE 2017 141 complet [facility] INFLUENZA, TRIVALENT, ADJUVANTED 2017 168 complet [facility] INFLUENZA, HIGH DOSE SEASONAL 2016 135 complet [facility] PNEUMOCOCCAL POLYSACCHARID E PPV23 2016 33 complet ed [employer] , [id number], 06/03/18 [facility] TD (ADULT), 2 LF TETANUS TOXOID, PRESERVATIVE FREE, ADSORBED 2016 09 complet ed [employer] [id number], 12/19/18 [facility] INFLUENZA, HIGH DOSE SEASONAL 2016 135 complet ed [facility] PNEUMOCOCCAL POLYSACCHARID E PPV23 2016 33 complet ed [facility] INFLUENZA, HIGH DOSE SEASONAL 2015 135 complet ed [facility] PNEUMOCOCCAL CONJUGATE PCV 13 2015 133 complet ed [employer] [facility] PNEUMOCOCCAL CONJUGATE PCV 13 2014 133 complet ed [facility] INFLUENZA, UNSPECIFIED FORMULATION 2013 88 complet ed [facility] INFLUENZA, UNSPECIFIED FORMULATION 2013 88 complet ed [facility] INFLUENZA, UNSPECIFIED FORMULATION 2011 88 complet ed [facility] INFLUENZA, UNSPECIFIED FORMULATION 2010 88 complet ed [facility] PNEUMOCOCCAL, UNSPECIFIED FORMULATION 2009 109 complet ed merck,093 02, 011 [facility] TDAP 2009 115 complet ed [facility] ZOSTER LIVE 2008 121 complet ed [facility] TDAP 2007 115 complet ed private [facility] ZOSTER LIVE 2006 121 complet ed [facility] Results Combined list of recent [...] 04:23 PM Reporting Lab: [facility] [address] Performing Lab: [facility] [address] [facility] URINALYS IS SPECIFIC GRAVITY OF URINE 1.006 1.003 - 1.035 07/16 Specimen Type: URINE No comment entered. Ordering Provider: TERRENCE CHAUHAN Report Released Date/Time: Jul 17, 2023 04:23 PM Reporting Lab: [facility] [address] Performing Lab: [facility] [address] [place] [facility] URINALYS IS BILIRUBIN. TOTAL [PRESENCE] IN URINE BY TEST STRIP NEGATIVE 07/16 Specimen Type: URINE No comment entered. Ordering Provider: TERRENCE CHAUHAN Report Released Date/Time: Jul 17, 2023 04:23 PM Reporting Lab: [facility] [address] Performing Lab: [facility] [address] [place] [facility] URINALYS IS KETONES [MASS/VOLU ME] IN URINE BY TEST STRIP NEGATIVE 07/16 Specimen Type: URINE No comment entered. Ordering Provider: TERRENCE CHAUHAN Report Released Date/Time: Jul 17, 2023 04:23 PM Reporting Lab: [facility] [address] Performing Lab: [facility] [address] [place] [facility] URINALYS IS GLUCOSE [MASS/VOLU ME] IN URINE BY TEST STRIP NEGATIVE mg/dL 07/16 Specimen Type: URINE No comment entered. Ordering Provider: TERRENCE CHAUHAN Report Released Date/Time: Jul 17, 2023 04:23 PM Reporting Lab: [facility] [address] Performing Lab: [facility] [address] [place] [facility] URINALYS IS PROTEIN [MASS/VOLU ME] IN URINE BY TEST STRIP NEGATIVE mg/dL 07/16 Specimen Type: URINE No comment entered. Ordering Provider: TERRENCE CHAUHAN Report Released Date/Time: Jul 17, 2023 04:23 PM Reporting Lab: [facility] [address] Performing Lab: [facility] [address] [place] [facility] URINALYS IS PH OF URINE BY TEST STRIP 7.0 5.0 - 8.0 07/16 Specimen Type: URINE No comment entered. Ordering Provider: TERRENCE CHAUHAN Report Released Date/Time: Jul 17, 2023 04:23 PM Reporting Lab: [facility] [address] Performing Lab: [facility] [address] [place] [facility] URINALYS IS LEUKOCYTES [#/AREA] IN URINE SEDIMENT BY MICROSCOPY HIGH POWER FIELD <1/[HPF] 0 - 7 07/16 Specimen Type: URINE No comment entered. Ordering Provider: TERRENCE CHAUHAN Report Released Date/Time: Jul 17, 2023 04:23 PM Reporting Lab: [facility] [address] Performing Lab: [facility] [address] [place] [facility] URINALYS IS BACTERIA [PRESENCE] IN URINE SEDIMENT BY LIGHT MICROSCOPY NONE SEEN 07/16 Specimen Type: URINE No comment entered. Ordering Provider: TERRENCE CHAUHAN Report Released Date/Time: Jul 17, 2023 04:23 PM Reporting Lab: [facility] [address] Performing Lab: [facility] [address] [place] [facility] URINALYS IS ERYTHROCYT ES [#/AREA] IN URINE SEDIMENT BY MICROSCOPY HIGH POWER FIELD <1/[HPF] 0 - 3 07/16 Specimen Type: URINE No comment entered. Ordering Provider: TERRENCE CHAUHAN Report Released Date/Time: Jul 17, 2023 04:23 PM Reporting Lab: [facility] [address] Performing Lab: [facility] [address] [place] [facility] URINALYS IS APPEARANCE OF URINE CLEAR 07/16 Specimen Type: URINE No comment entered. Ordering Provider: TERRENCE CHAUHAN Report Released Date/Time: Jul 17, 2023 04:23 PM Reporting Lab: [facility] [address] Performing Lab: [facility] [address] [place] [facility] URINALYS IS EPITHELIAL CELLS.SQUA MOUS [#/AREA] IN URINE SEDIMENT BY MICROSCOPY HIGH POWER FIELD NONE SEEN/[HP F] 04/11 /2024 Specimen Type: URINE No comment entered. Ordering Provider: TERRENCE CHAUHAN Report Released Date/Time: Jul 17, 2023 04:23 PM Reporting Lab: [facility] [address] Performing Lab: [facility] [address] [place] [facility] URINALYS IS HEMOGLOBIN [PRESENCE] IN URINE BY TEST STRIP NEGATIVE 07/16 Specimen Type: URINE No comment entered. Ordering Provider: TERRENCE CHAUHAN Report Released Date/Time: Jul 17, 2023 04:23 PM Reporting Lab: [facility] [address] Performing Lab: [facility] [address] [facility] URINALYS IS NITRITE [PRESENCE] IN URINE BY TEST STRIP NEGATIVE 07/16 Specimen Type: URINE No comment entered. Ordering Provider: TERRENCE CHAUHAN Report Released Date/Time: Jul 17, 2023 04:23 PM Reporting Lab: [facility] [address] Performing Lab: [facility] [address] [place] [facility] URINALYS IS LEUKOCYTE ESTERASE [PRESENCE] IN URINE BY TEST STRIP NEGATIVE 07/16 Specimen Type: URINE No comment entered. Ordering Provider: TERRENCE CHAUHAN Report Released Date/Time: Jul 17, 2023 04:23 PM Reporting Lab: [facility] [address] Performing Lab: [facility] [address] [facility] HEMOGLOB IN A1C HEMOGLOBIN A1C/HEMOGL OBIN.TOTAL [...] 02:21 PM Reporting Lab: [facility] [address] Performing Lab: [facility] [address] [place] [facility] BASIC METABOLI C PANEL+MG CREATININE [MASS/VOLU ME] IN SERUM OR PLASMA 1.3 mg/dL 0.7 - 1.2 07/16 H Specimen Type: PLASMA No comment entered. Ordering Provider: TERRENCE CHAUHAN Report Released Date/Time: August 07, 2022 02:21 PM Reporting Lab: [facility] [address] Performing Lab: [facility] [address] [place] [facility] BASIC METABOLI C PANEL+MG UREA NITROGEN [MASS/VOLU ME] IN SERUM OR PLASMA 15 mg/dL 8 - 26 07/16 Specimen Type: PLASMA No comment entered. Ordering Provider: TERRENCE CHAUHAN Report Released Date/Time: August 07, 2022 02:21 PM Reporting Lab: [facility] [address] Performing Lab: [facility] [address] [place] [facility] BASIC METABOLI C PANEL+MG GLUCOSE [MASS/VOLU ME] IN SERUM OR PLASMA 84 mg/dL 70 - 100 07/16 Specimen Type: PLASMA No comment entered. Ordering Provider: TERRENCE CHAUHAN Report Released Date/Time: August 07, 2022 02:21 PM Reporting Lab: [facility] [address] Performing Lab: [facility] [address] [place] [facility] BASIC METABOLI C PANEL+MG SODIUM [MOLES/VOL UME] IN SERUM OR PLASMA 137 mmol/L 136 - 145 07/16 Specimen Type: PLASMA No comment entered. Ordering Provider: TERRENCE CHAUHAN Report Released Date/Time: August 07, 2022 02:21 PM Reporting Lab: [facility] [address] Performing Lab: [facility] [address] [place] [facility] BASIC METABOLI C PANEL+MG POTASSIUM [MOLES/VOL UME] IN SERUM OR PLASMA 4.6 mmol/L 3.5 - 5.1 07/16 Specimen Type: PLASMA No comment entered. Ordering Provider: TERRENCE CHAUHAN Report Released Date/Time: August 07, 2022 02:21 PM Reporting Lab: [facility] [address] Performing Lab: [facility] [address] [place] [facility] BASIC METABOLI C PANEL+MG CHLORIDE [MOLES/VOL UME] IN SERUM OR PLASMA 105 mmol/L 98 - 107 07/16 Specimen Type: PLASMA No comment entered. Ordering Provider: TERRENCE CHAUHAN Report Released Date/Time: August 07, 2022 02:21 PM Reporting Lab: [facility] [address] Performing Lab: [facility] [address] [place] [facility] BASIC METABOLI C PANEL+MG CARBON DIOXIDE, TOTAL [MOLES/VOL UME] IN SERUM OR PLASMA 24 mmol/L 22 - 29 07/16 Specimen Type: PLASMA No comment entered. Ordering Provider: TERRENCE CHAUHAN Report Released Date/Time: August 07, 2022 02:21 PM Reporting Lab: [facility] [address] Performing Lab: [facility] [address] [place] [facility] BASIC METABOLI C PANEL+MG CALCIUM [MASS/VOLU ME] IN SERUM OR PLASMA 8.9 mg/dL 8.4 - 10.2 07/16 Specimen Type: PLASMA No comment entered. Ordering Provider: TERRENCE CHAUHAN Report Released Date/Time: August 07, 2022 02:21 PM Reporting Lab: [facility] [address] Performing Lab: [facility] [address] [place] [facility] BASIC METABOLI C PANEL+MG MAGNESIUM [MASS/VOLU ME] IN SERUM OR PLASMA 2.1 mg/dL 1.6 - 2.6 07/16 Specimen Type: PLASMA No comment entered. Ordering Provider: TERRENCE CHAUHAN Report Released Date/Time: August 07, 2022 02:21 PM Reporting Lab: [facility] [address] Performing Lab: [facility] [address] [place] [facility] BASIC METABOLI C PANEL+MG ANION GAP IN SERUM OR PLASMA 8 mmol/L 5 - 15 07/16 Specimen Type: PLASMA No comment entered. Ordering Provider: TERRENCE CHAUHAN Report Released Date/Time: August 07, 2022 02:21 PM Reporting Lab: [facility] [address] Performing Lab: [facility] [address] [place] [facility] BASIC METABOLI C PANEL+MG GLOMERULAR FILTRATION RATE/1.73 SQ M.PREDICTE D [VOLUME RATE/AREA] IN SERUM, PLASMA OR BLOOD BY CREATININE -BASED FORMULA (CKD-EPI 2020) 56 60 07/16 L Specimen Type: PLASMA No comment entered. Ordering Provider: TERRENCE CHAUHAN Report Released Date/Time: August 07, 2022 02:21 PM Reporting Lab: [facility] [address] Performing Lab: [facility] [address] [place] [facility] CBC LEUKOCYTES [#/VOLUME] IN BLOOD BY AUTOMATED COUNT 8.72 10*3/uL 4.0 - 11.0 07/16 Specimen Type: BLOOD No comment entered. Ordering Provider: TERRENCE CHAUHAN Report Released Date/Time: August 07, 2022 02:21 PM Reporting Lab: [facility] [address] Performing Lab: [facility] [address] [place] [facility] CBC ERYTHROCYT ES [#/VOLUME] IN BLOOD BY AUTOMATED COUNT 4.11 10*6/uL 4.6 - 6.2 07/16 L Specimen Type: BLOOD No comment entered. Ordering Provider: TERRENCE CHAUHAN Report Released Date/Time: August 07, 2022 02:21 PM Reporting Lab: [facility] [address] Performing Lab: [facility] [address] [place] [facility] CBC HEMOGLOBIN [MASS/VOLU ME] IN BLOOD 13.4 g/dL 13.5 - 17.9 07/16 L Specimen Type: BLOOD No comment entered. Ordering Provider: TERRENCE CHAUHAN Report Released Date/Time: August 07, 2022 02:21 PM Reporting Lab: [facility] [address] Performing Lab: [facility] [address] [place] [facility] CBC HEMATOCRIT [VOLUME FRACTION] OF BLOOD BY AUTOMATED COUNT 39.7 41 - 54 07/16 L Specimen Type: BLOOD No comment entered. Ordering Provider: TERRENCE CHAUHAN Report Released Date/Time: August 07, 2022 02:21 PM Reporting Lab: [facility] [address] Performing Lab: [facility] [address] [place] [facility] CBC MCV [ENTITIC VOLUME] BY AUTOMATED COUNT 96.6 fL 80 - 100 07/16 Specimen Type: BLOOD No comment entered. Ordering Provider: TERRENCE CHAUHAN Report Released Date/Time: August 07, 2022 02:21 PM Reporting Lab: [facility] [address] Performing Lab: [facility] [address] [place] [facility] CBC MCH [ENTITIC MASS] BY AUTOMATED COUNT 32.6 pg 27 - 33 07/16 Specimen Type: BLOOD No comment entered. Ordering Provider: TERRENCE CHAUHAN Report Released Date/Time: August 07, 2022 02:21 PM Reporting Lab: [facility] [address] Performing Lab: [facility] [address] [place] [facility] CBC MCHC [MASS/VOLU ME] BY AUTOMATED COUNT 33.8 g/dL 32.0 - 37.5 07/16 Specimen Type: BLOOD No comment entered. Ordering Provider: TERRENCE CHAUHAN Report Released Date/Time: August 07, 2022 02:21 PM Reporting Lab: [facility] [address] Performing Lab: [facility] [address] [place] [facility] CBC PLATELETS [#/VOLUME] IN BLOOD BY AUTOMATED COUNT 159 10*3/uL 150 - 400 07/16 Specimen Type: BLOOD No comment entered. Ordering Provider: TERRENCE CHAUHAN Report Released Date/Time: August 07, 2022 02:21 PM Reporting Lab: [facility] [address] Performing Lab: [facility] [address] [place] [facility] CBC PLATELET MEAN VOLUME [ENTITIC VOLUME] IN BLOOD BY AUTOMATED COUNT 9.6 fL 7.4 - 10.4 07/16 Specimen Type: BLOOD No comment entered. Ordering Provider: TERRENCE CHAUHAN Report Released Date/Time: August 07, 2022 02:21 PM Reporting Lab: [facility] [address] Performing Lab: [facility] [address] [facility] CBC ERYTHROCYT E DISTRIBUTI ON WIDTH [RATIO] BY AUTOMATED COUNT 14.1 11.5 - 14.5 07/16 Specimen Type: BLOOD No comment entered. Ordering Provider: TERRENCE CHAUHAN Report Released Date/Time: August 07, 2022 02:21 PM Reporting Lab: [facility] [id number] Performing Lab: [facility] [id number] [place] [facility] LIVER FUNCTION TESTS BILIRUBIN. TOTAL [MASS/VOLU ME] IN SERUM OR PLASMA 0.8 mg/dL 0.2 - 1.2 07/16 Specimen Type: PLASMA No comment entered. Ordering Provider: TERRENCE CHAUHAN Report Released Date/Time: August 07, 2022 02:21 PM Reporting Lab: [facility] [address] Performing Lab: [facility] [address] [place] [facility] LIVER FUNCTION TESTS ALKALINE PHOSPHATAS E [ENZYMATIC ACTIVITY/V OLUME] IN SERUM OR PLASMA 52 U/L 40 - 150 07/16 Specimen Type: PLASMA No comment entered. Ordering Provider: TERRENCE CHAUHAN Report Released Date/Time: August 07, 2022 02:21 PM Reporting Lab: [facility] [address] Performing Lab: [facility] [address] [place] [facility] LIVER FUNCTION TESTS ALANINE AMINOTRANS FERASE [ENZYMATIC ACTIVITY/V OLUME] IN SERUM OR PLASMA 20 U/L <55 - 55 07/16 Specimen Type: PLASMA No comment entered. Ordering Provider: TERRENCE CHAUHAN Report Released Date/Time: August 07, 2022 02:21 PM Reporting Lab: [facility] [address] Performing Lab: [facility] [address] [place] [facility] LIVER FUNCTION TESTS ASPARTATE AMINOTRANS FERASE [ENZYMATIC ACTIVITY/V OLUME] IN SERUM OR PLASMA 19 U/L <34 - 34 07/16 Specimen Type: PLASMA No comment entered. Ordering Provider: TERRENCE CHAUHAN Report Released Date/Time: August 07, 2022 02:21 PM Reporting Lab: [facility] [address] Performing Lab: [facility] [address] [place] [facility] LIVER FUNCTION TESTS GAMMA GLUTAMYL TRANSFERAS E [ENZYMATIC ACTIVITY/V OLUME] IN SERUM OR PLASMA 38 U/L <64 - 64 07/16 Specimen Type: PLASMA No comment entered. Ordering Provider: TERRENCE CHAUHAN Report Released Date/Time: August 07, 2022 02:21 PM Reporting Lab: [facility] [address] Performing Lab: [facility] [address] [place] [facility] PSA PROSTATE SPECIFIC AG [MASS/VOLU ME] IN SERUM OR PLASMA 3.84 ng/mL <4.00 - 4.00 07/16 Specimen Type: SERUM No comment entered. Ordering Provider: TERRENCE CHAUHAN Report Released Date/Time: August 07, 2022 02:21 PM Reporting Lab: [facility] [address] Performing Lab: [facility] [address] [facility] CREATINI NE(INCLU SATHYA EGFR) CREATININE [MASS/VOLU ME] IN SERUM OR PLASMA 1.2 mg/dL 0.7 - 1.2 04/16 Specimen Type: PLASMA No comment entered. Ordering Provider: WIEMANN,MAT THEW S Report Released Date/Time: Mar 07, 2023 02:00 PM Reporting Lab: [facility] [address] Performing Lab: [facility] [address] [place] [facility] CREATINI NE(INCLU SATHYA EGFR) GLOMERULAR FILTRATION RATE/1.73 SQ M.PREDICTE D [VOLUME RATE/AREA] IN SERUM, PLASMA OR BLOOD BY CREATININE -BASED FORMULA (CKD-EPI 2020) 62 60 04/16 Specimen Type: PLASMA No comment entered. Ordering Provider: HUYEN HYLTON S Report Released Date/Time: Mar 07, 2023 02:00 PM Reporting Lab: [facility] [address] Performing Lab: [place] [address] [place] [facility] CBC LEUKOCYTES [#/VOLUME] IN BLOOD BY AUTOMATED COUNT 8.06 10*3/uL 4.0 - 11.0 04/16 Specimen Type: BLOOD No comment entered. Ordering Provider: HUYEN HYLTON S Report Released Date/Time: Mar 07, 2023 02:00 PM Reporting Lab: [facility] [address] Performing Lab: [facility] [address] [place] [facility] CBC ERYTHROCYT ES [#/VOLUME] IN BLOOD BY AUTOMATED COUNT 4.03 10*6/uL 4.6 - 6.2 04/16 L Specimen Type: BLOOD No comment entered. Ordering Provider: HUYEN HYLTON S Report Released Date/Time: Mar 07, 2023 02:00 PM Reporting Lab: [facility] [address] Performing Lab: [facility] [address] [place] [facility] CBC HEMOGLOBIN [MASS/VOLU ME] IN BLOOD 13.1 g/dL 13.5 - 17.9 04/16 L Specimen Type: BLOOD No comment entered. Ordering Provider: HUYEN HYLTON S Report Released Date/Time: Mar 07, 2023 02:00 PM Reporting Lab: [facility] [address] Performing Lab: [facility] [address] [place] [facility] CBC HEMATOCRIT [VOLUME FRACTION] OF BLOOD BY AUTOMATED COUNT 38.9 41 - 54 04/16 L Specimen Type: BLOOD No comment entered. Ordering Provider: HUYEN HYLTON Report Released Date/Time: Mar 07, 2023 02:00 PM Reporting Lab: [facility] [address] Performing Lab: [facility] [address] [place] [facility] CBC MCV [ENTITIC VOLUME] BY AUTOMATED COUNT 96.5 fL 80 - 100 04/16 Specimen Type: BLOOD No comment entered. Ordering Provider: HUYEN HYLTON S Report Released Date/Time: Mar 07, 2023 02:00 PM Reporting Lab: [facility] [address] Performing Lab: [facility] [address] [place] [facility] CBC MCH [ENTITIC MASS] BY AUTOMATED COUNT 32.5 pg 27 - 33 04/16 Specimen Type: BLOOD No comment entered. Ordering Provider: HUYEN HYLTON Report Released Date/Time: Mar 07, 2023 02:00 PM Reporting Lab: [facility] [address] Performing Lab: [facility] [address] [place] [facility] CBC MCHC [MASS/VOLU ME] BY AUTOMATED COUNT 33.7 g/dL 32.0 - 37.5 04/16 Specimen Type: BLOOD No comment entered. Ordering Provider: HUYEN HYLTON Report Released Date/Time: Mar 07, 2023 02:00 PM Reporting Lab: [facility] [address] Performing Lab: [facility] [address] [place] [facility] CBC PLATELETS [#/VOLUME] IN BLOOD BY AUTOMATED COUNT 157 10*3/uL 150 - 400 04/16 Specimen Type: BLOOD No comment entered. Ordering Provider: HUYEN HYLTON S Report Released Date/Time: Mar 07, 2023 02:00 PM Reporting Lab: [facility] [address] Performing Lab: [facility] [address] [place] [facility] CBC PLATELET MEAN VOLUME [ENTITIC VOLUME] IN BLOOD BY AUTOMATED COUNT 9.7 fL 7.4 - 10.4 04/16 Specimen Type: BLOOD No comment entered. Ordering Provider: HUYEN HYLTON S Report Released Date/Time: Mar 07, 2023 02:00 PM Reporting Lab: [facility] [address] Performing Lab: [facility] [address] [place] [facility] CBC ERYTHROCYT E DISTRIBUTI ON WIDTH [RATIO] BY AUTOMATED COUNT 14.5 11.5 - 14.5 04/16 Specimen Type: BLOOD No comment entered. Ordering Provider: HUYEN HYLTON S Report Released Date/Time: Mar 07, 2023 02:00 PM Reporting Lab: [facility] [address] Performing Lab: [facility] [address] [place] [facility] AST/SGOT ASPARTATE AMINOTRANS FERASE [ENZYMATIC ACTIVITY/V OLUME] IN SERUM OR PLASMA 22 U/L <34 - 34 04/16 Specimen Type: PLASMA No comment entered. Ordering Provider: HUYEN HYLTON S Report Released Date/Time: Mar 07, 2023 02:00 PM Reporting Lab: [facility] [address] Performing Lab: [facility] [address] [place] [facility] ALT/SGPT ALANINE AMINOTRANS FERASE [ENZYMATIC ACTIVITY/V OLUME] IN SERUM OR PLASMA 19 U/L <55 - 55 04/16 Specimen Type: PLASMA No comment entered. Ordering Provider: HUYEN HYLTON Report Released Date/Time: Mar 07, 2023 02:00 PM Reporting Lab: [facility] [address] Performing Lab: [facility] [address] [place] [facility] Vital Signs Combined list of [...] ADM Date DC Date Status Disposition Source [facility] Outpatient Encounter [id number] 04/24 [facility] EMERGENCY [facility]PT VISIT SF MDM [id number] Diagnos is: ICD-10- CM Z76.0 Encount er for issue of repeat prescri ption<b r/> ALYSSIAEDMUNDOAICHA Perez 05/09 [facility] Outpatient Encounter [id number] 05/09 [facility] [place] [facility] Outpatient Encounter [id number] 06/12 [place] [facility] [place] [facility] Outpatient Encounter [id number] 07/15 [facility] [place] [facility] OFFICE O/P EST MOD 30-39 MIN [id number] Diagnos is: ICD-10- CM Z00.01 Encount er for general adult medical exam w abnorma l finding s
DANETTE LIN LY E 08/07 [facility] [place] [facility] Outpatient Encounter [id number] 08/07 [facility] [place] [facility] Outpatient Encounter [id number] OLESYA ROGERS 08/12 [place] [facility] [place] [facility] Outpatient Encounter [id number] OLESYA ROGERS 08/12 [place] [facility] [place] [facility] Outpatient Encounter [id number] Ana CHAUHAN 09/12 [place] [facility] [place] [facility] Outpatient Encounter [id number] 11/06 [place] [facility] [place] [facility] Outpatient Encounter [id number] 12/08 [place] [facility] [place] [facility] Outpatient Encounter [id number] 12/12 [place] [facility] [place] [facility] Outpatient Encounter [id number] 01/17 [place] [facility] [place] [facility] Outpatient Encounter [id number] 02/19 [place] [facility] [place] [facility] Outpatient Encounter [id number] 02/24 [place] [facility] [place] [facility] Outpatient Encounter [id number] 03/07 [place] [facility] QNHP OL DIG ASSMT&MGMT 5-10 [id number] Diagnos is: ICD-10- 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
ELLEN GARCIA 05/29 [facility] OFFICE O/P EST MOD 30 MIN [id number] Diagnos is: ICD-10- CM Z00.01 Encount er for general adult medical exam w abnorma l finding s
Ana CHAUHAN 07/16 [facility] [place] [facility] Outpatient Encounter [id number] 07/17 [facility] Social History Combined list of available smoking, tobacco, and other social history from [employer] and [facility] facilities. 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 07/17/2023 [facility] History of tobacco use UT-TOBACCO QUIT 1 TO < 5 YRS 07/17/2023 [facility] History of tobacco use UT-TOBACCO FORMER USER 08/07/2022 [facility] History of tobacco use UT-TOBACCO FORMER USER 10/16/2020 [facility] History of tobacco use UT-TOBACCO USE CO UNSEL NO 03/29/2019 [facility] History of tobacco use UT-TOBACCO USER E VERY DAY 02/17/2018 [facility] History of tobacco use CURRENT TOBACCO USER 02/12/2017 [facility] History of tobacco use CURRENT TOBACCO USER 04/25/2015 [facility] History of tobacco use CURRENT TOBACCO USER 04/21/2014 [facility] History of tobacco use CURRENT TOBACCO USER 04/20/2013 [facility] History of tobacco use CURRENT TOBACCO USER 03/20/2012 [facility] History of tobacco use CURRENT TOBACCO USER 02/06/2011 [facility] History of tobacco use CURRENT TOBACCO USER 01/02/2010 [facility]
== END 2023-09-25 15:46 | disposition home or self-care (01) ==
LOC: WOUND 15:45
PROVIDERS: PCP Family Medicine; Visit Provider Family Medicine
DX: L72.0 Epidermal cyst (principal)
CPT/HCPCS: G0463

== ENCOUNTER 2023-09-29 10:24 | Outpatient (CLI) | payer MEDICARE, BC, SELFPAY ==
--- OUTSIDE RECORDS SUMMARY | 2023-09-29 10:26 | XMS_ITS | Continuity of Care Document ---
Author Name [facility] Organization [facility] Care Team Providers Care Travelers' Aid Worker Name Role Phone [facility] Unavailable Unavailable Problems Combined list of problems from Department of Defense and Veterans Affairs facilities. It does not include entries that were removed or entered in error. Problem Status Onset Date Problem Type Date of Resolution Comments Source CVD - Cerebrovascular Disease (RUST [id number]) Active 03/19/20 20 Condition May 01, 2020 Entered By: YOAV CHAUHAN Comment: 03/19/20: L MCA CVA, Admit ANW. Cardio-embol ic d/t Warfarin DC [facility] CAD - Coronary Artery Disease (RUST [id number]) Active 01/27/20 20 Condition Mar 13, 2020 Entered By: YOAV CHAUHAN Comment: 01/27/20: LAD and Dx stented w/SATHYA at [facility]. Plavix +ASA thru 01/26/21 [facility] Peripheral arterial insufficiency Active 01/21/20 20 Condition Mar 13, 2020 Entered By: YOAV CHAUHAN Comment: 01/21/20: L femoral Art occlusion per [facility]-->Fem -Tibial bypass planned [facility] Allergic rhinitis (SNOMED CT 92069442) Active Condition [facility] Atrial fibrillation (SNOMED CT 32642062) Active Condition Apr 26, 2015 Entered By: YOAV CHAUHAN Comment: Warfarin through Miryam Rodriguez [facility] Co-Managed Care Active Condition Dec 25, 2017 Entered By: YOAV CHAUHAN Comment: Dr Garcia, [place], F: [phone] , [facility] COPD - Chronic Obstructive Pulmonary Disease (RUST [id number]) Active Condition Dec 25, 2017 Entered By: YOAV CHAUHAN Comment: Mometasone & Albuterol MDI's [facility] [place] of toe Active Condition Sep 08, 2019 Entered By: YOAV CHAUHAN Comment: R middle toe [facility] Current smoker Active Condition Apr 082015 Entered By: YOAV CHAUHAN Comment: Cigars, not cigarettes [facility] Essential hypertension (SNOMED CT 58475039) Active Condition [facility] Glucose intolerance Active Condition [facility] Nocturia due to benign prostatic hypertrophy Active Condition [facility] Health Maintenance (ICD-9-CM V65.9) Inactive Condition 04/26/2015 BELGICA MANCILLA [facility] Diagnosis: ICD-10-CM Z00.01 Encounter for general adult medical exam w abnormal findings [facility] Diagnosis: 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 [facility] Lisette [facility] Diagnosis: ICD-10-CM Z76.0 Encounter for issue of repeat prescription Active Diagnosis [facility] Medications Combined list of outpatient medications [...] BREATH RESPIR ATORY (INHAL ATION) ACTIVE 07/17/2024 [id number] 4 AFRICA CHAUHAN 2023 2 [facility] ALBUTEROL 90MCG/ACTUA T (CFC-F) INHL,ORAL,8 .5GM DOSE COUNTER INHALE 2 PUFFS BY INHALATI ON FOUR TIMES A DAY NEEDED FOR SHORTNES S OF BREATH RESPIR ATORY (INHAL ATION) DISCONT INUED 08/08/2023 [id number] 3 AFRICA CHAUHAN 2022 2 [facility] APIXABAN 5MG TAB TAKE ONE TABLET BY MOUTH EVERY 12 HOURS TO PREVENT BLOOD CLOTS AND STROKE (ELIQUIS ) ORAL ACTIVE 05/29/2024 [id number] 4 MARIANO GARCIA 2023 180 [facility] APIXABAN 5MG TAB TAKE ONE TABLET BY MOUTH EVERY 12 HOURS TO PREVENT BLOOD CLOTS AND STROKE (ELIQUIS ) ORAL DISCONT INUED 05/09/2023 [id number] 3 MARIANO GARCIA 2022 180 [facility] CHOLECALCIF JONNA 25MCG (1,000UNIT) TAB TAKE FIVE TABLETS BY MOUTH QOD ORAL ACTIVE AFRICA CHAUHAN 2016 [facility] FLUOCINONID E 0.1% CREAM,TOP APPLY A THIN LAYER TOPICALL Y TWICE A DAY NEEDED FOR RASH TOPICA L ACTIVE 12/13/2023 [id number] 3 AFRICA CHAUHAN 2022 60 [facility] FLUTICASONE 250MCG/SALM ETEROL 50MCG INHL,ORAL,D ISKUS,60 INHALE 1 PUFF BY INHALATI ON TWICE A DAY FOR COPD RESPIR ATORY (INHAL ATION) ACTIVE 07/17/2024 [id number] 4 AFRICA CHAUHAN 2023 3 [facility] FLUTICASONE 250MCG/SALM ETEROL 50MCG INHL,ORAL,D ISKUS,60 INHALE 1 PUFF BY INHALATI ON TWICE A DAY FOR COPD THIS REPLACES YOUR MOMETASO NE RESPIR ATORY (INHAL ATION) DISCONT INUED 08/08/2023 [id number] 4 AFRICA CHAUHAN 2022 3 [facility] FUROSEMIDE 20MG TAB TAKE ONE TABLET BY MOUTH THREE TIMES A WEEK FOR HEART FAILURE ORAL ACTIVE 02/25/2024 [id number] 3 Hong DONAHUE 2022 39 [facility] FUROSEMIDE 20MG TAB TAKE ONE TABLET BY MOUTH EVERY OTHER DAY FOR HEART FAILURE ORAL DISCONT INUED (EDIT) 08/13/2023 [id number] 3 AFRICA CHAUHAN 2022 45 [facility] FUROSEMIDE 20MG TAB TAKE ONE TABLET BY MOUTH EVERY MORNING FOR HEART FAILURE ORAL DISCONT INUED 08/08/2023 [id number] 3 AFRICA CHAUHAN 2022 90 [facility] HYDROCHLORO THIAZIDE 12.5MG TAB TAKE ONE TABLET BY MOUTH EVERY DAY FOR BLOOD PRESSURE ORAL DISCONT INUED 08/08/2023 [id number] 3 AFRICA CHAUHAN 2022 90 [facility] METOPROLOL SUCCINATE 100MG TAB,SA TAKE ONE AND ONE-HALF TABLETS BY MOUTH EVERY DAY ORAL DISCONT INUED 11/16/2022 [id number] 3 AFRICA CHAUHAN 2021 135 [facility] METOPROLOL SUCCINATE 50MG TAB,SA TAKE THREE TABLETS BY MOUTH EVERY DAY FOR BLOOD PRESSURE ORAL DISCONT INUED 08/08/2023 [id number] 3 AFRICA CHAUHAN 2022 270 [facility] METOPROLOL TARTRATE 100MG TAB TAKE ONE TABLET BY MOUTH TWICE A DAY FOR BLOOD PRESSURE ORAL ACTIVE 12/13/2023 [id number] 4 AFRICA CHAUHAN [place] 2022 180 [facility] NIFEDIPINE (EQV-CC) 60MG TAB,SA TAKE ONE TABLET BY MOUTH EVERY DAY FOR BLOOD PRESSURE ORAL DISCONT INUED BY PROVIDE R 08/08/2023 [id number] 3 AFRICA CHAUHAN [place] 2022 90 [facility] NIFEDIPINE (EQV-CC) 60MG TAB,SA TAKE ONE TABLET BY MOUTH EVERY DAY FOR BLOOD PRESSURE ORAL DISCONT INUED 09/11/2022 [id number] 3 AFRICA CHAUHAN [place] 2022 90 [facility] NIFEDIPINE (EQV-CC) 90MG TAB,SA TAKE ONE TABLET BY MOUTH EVERY DAY FOR BLOOD PRESSURE ORAL ACTIVE 07/17/2024 [id number] 4 AFRICA CHAUHAN [place] 2023 90 [facility] NIFEDIPINE (EQV-CC) 90MG TAB,SA TAKE ONE TABLET BY MOUTH EVERY DAY FOR BLOOD PRESSURE INCREASE D DOSE PER CO-MANAG ED CARE INCREASE D DOSE PER CO-MANAG ED CARE ORAL DISCONT INUED 12/13/2023 [id number] 4 AFRICA CHAUHAN 2022 90 [facility] POTASSIUM CHLORIDE 10MEQ TAB,SA TAKE ONE TABLET BY MOUTH THREE TIMES A WEEK FOR POTASSIU M SUPPLEME NT TAKE WITH FUROSEMI DE ORAL ACTIVE 02/25/2024 [id number] 3 Hong DONAHUE [facility] A 2022 39 [facility] POTASSIUM CHLORIDE 10MEQ TAB,SA TAKE ONE TABLET BY MOUTH EVERY OTHER DAY FOR POTRICARDOIU M SUPPLEME NT ORAL DISCONT INUED (EDIT) 08/13/2023 [id number] 3 AFRICA CHAUHAN 2022 45 [facility] POTASSIUM CHLORIDE 10MEQ TAB,SA TAKE ONE TABLET BY MOUTH EVERY DAY FOR CONGESTI VE HEART FAILURE ORAL DISCONT INUED 08/08/2023 [id number] 3 AFRICA CHAUHAN 2022 90 [facility] POTASSIUM CHLORIDE 10MEQ TAB,SA TAKE ONE TABLET BY MOUTH EVERY DAY FOR CONGESTI VE HEART FAILURE ORAL DISCONT INUED 11/16/2022 [id number] 3 AFRICA CHAUHAN 2021 90 [facility] ROSUVASTATI N CA 20MG TAB TAKE ONE TABLET BY MOUTH AT BEDTIME FOR CORONARY ARTERY DISEASE ORAL ACTIVE 07/17/2024 [id number] 4 AFRICA CHAUHAN 2023 90 [facility] ROSUVASTATI N CA 20MG TAB TAKE ONE TABLET BY MOUTH AT BEDTIME FOR CORONARY ARTERY DISEASE ORAL DISCONT INUED 08/08/2023 [id number] 4 AFRICA CHAUHAN 2022 90 [facility] TAMSULOSIN HCL 0.4MG CAP TAKE ONE CAPSULE BY MOUTH EVERY EVENING FOR PROSTATE ORAL ACTIVE 07/17/2024 [id number] 4 AFRICA CHAUHAN 2023 30 [facility] Allergies, Adverse Reactions, Alerts Combined list of allergies from Department of Defense and Veterans Affairs facilities. It does not include entries that were removed or entered in error. Substance Category Reaction Severity Reaction type Status Date Reported Comments Source LISINOPRIL Propensity to adverse reactions to drug (finding) Cough active 0 [facility] Immunizations Combined list of available immunizations from the Department of Defense and Veterans Affairs facilities. Immunization Series Date Given Administered By Site Reaction Lot Number CVX Code Drug Civil Design Technician Status Comments Source COVID-19 (Zixi), MRNA, LNP-S, BIVALENT, PF, 30 MCG/0.3 ML DOSE 2022 300 complet [facility] COVID-19 (Zixi), MRNA, LNP-S, PF, 30 MCG/0.3 ML DOSE, JAMES-SUCROSE (AGES 12+ YEARS) 2021 217 complet [facility] COVID-19 (Zixi), MRNA, LNP-S, PF, 30 MCG/0.3 ML DOSE 2020 208 complet [facility] ZOSTER RECOMBINANT 2 2020 187 complet [facility] INFLUENZA VACCINE, QUADRIVALENT, ADJUVANTED 2020 205 complet [facility] INFLUENZA, UNSPECIFIED FORMULATION 2020 88 complet [facility] ZOSTER RECOMBINANT 1 2020 187 complet [facility] COVID-19 (Zixi), MRNA, LNP-S, PF, 30 MCG/0.3 ML DOSE 2 2020 208 complet [facility] COVID-19 (Zixi), MRNA, LNP-S, PF, 30 MCG/0.3 ML DOSE 1 2020 208 complet [facility] INFLUENZA VACCINE, QUADRIVALENT, ADJUVANTED 2019 205 complet [facility] INFLUENZA, TRIVALENT, ADJUVANTED 2018 168 complet [facility] INFLUENZA, SEASONAL, INJECTABLE 2018 141 complet [facility] INFLUENZA, SEASONAL, INJECTABLE 2017 141 complet [facility] INFLUENZA, TRIVALENT, ADJUVANTED 2017 168 complet [facility] INFLUENZA, HIGH DOSE SEASONAL 2016 135 complet [facility] PNEUMOCOCCAL POLYSACCHARID E PPV23 2016 33 complet ed [employer] , [id number], 06/03/18 [facility] TD (ADULT), 2 LF TETANUS TOXOID, PRESERVATIVE FREE, ADSORBED 2016 09 complet ed [employer] [id number], 12/19/18 [facility] INFLUENZA, HIGH DOSE SEASONAL 2016 135 complet ed [facility] PNEUMOCOCCAL POLYSACCHARID E PPV23 2016 33 complet ed [facility] INFLUENZA, HIGH DOSE SEASONAL 2015 135 complet ed [facility] PNEUMOCOCCAL CONJUGATE PCV 13 2015 133 complet ed [employer] [facility] PNEUMOCOCCAL CONJUGATE PCV 13 2014 133 complet ed [facility] INFLUENZA, UNSPECIFIED FORMULATION 2013 88 complet ed [facility] INFLUENZA, UNSPECIFIED FORMULATION 2013 88 complet ed [facility] INFLUENZA, UNSPECIFIED FORMULATION 2011 88 complet ed [facility] INFLUENZA, UNSPECIFIED FORMULATION 2010 88 complet ed [facility] PNEUMOCOCCAL, UNSPECIFIED FORMULATION 2009 109 complet ed [employer],093 02, 011 [facility] TDAP 2009 115 complet ed [facility] ZOSTER LIVE 2008 121 complet ed [facility] TDAP 2007 115 complet ed private [facility] ZOSTER LIVE 2006 121 complet ed [facility] Results Combined list of recent chemistry, [...] Jul 17, 2023 04:23 PM Reporting Lab: [facility] [address] Performing Lab: [facility] [address] [facility] URINALYS IS SPECIFIC GRAVITY OF URINE 1.006 1.003 - 1.035 07/16 Specimen Type: URINE No comment entered. Ordering Provider: TERRENCE CHAUHAN Report Released Date/Time: Jul 17, 2023 04:23 PM Reporting Lab: [facility] [address] Performing Lab: [facility] [address] [place] [facility] URINALYS IS BILIRUBIN. TOTAL [PRESENCE] IN URINE BY TEST STRIP NEGATIVE 07/16 Specimen Type: URINE No comment entered. Ordering Provider: TERRENCE CHAUHAN Report Released Date/Time: Jul 17, 2023 04:23 PM Reporting Lab: [facility] [address] Performing Lab: [facility] [address] [place] [facility] URINALYS IS KETONES [MASS/VOLU ME] IN URINE BY TEST STRIP NEGATIVE 07/16 Specimen Type: URINE No comment entered. Ordering Provider: TERRENCE CHAUHAN Report Released Date/Time: Jul 17, 2023 04:23 PM Reporting Lab: [facility] [address] Performing Lab: [facility] [address] [place] [facility] URINALYS IS GLUCOSE [MASS/VOLU ME] IN URINE BY TEST STRIP NEGATIVE mg/dL 07/16 Specimen Type: URINE No comment entered. Ordering Provider: TERRENCE CHAUHAN Report Released Date/Time: Jul 17, 2023 04:23 PM Reporting Lab: [facility] [address] Performing Lab: [facility] [address] [place] [facility] URINALYS IS PROTEIN [MASS/VOLU ME] IN URINE BY TEST STRIP NEGATIVE mg/dL 07/16 Specimen Type: URINE No comment entered. Ordering Provider: TERRENCE CHAUHAN Report Released Date/Time: Jul 17, 2023 04:23 PM Reporting Lab: [facility] [address] Performing Lab: [facility] [address] [place] [facility] URINALYS IS PH OF URINE BY TEST STRIP 7.0 5.0 - 8.0 07/16 Specimen Type: URINE No comment entered. Ordering Provider: TERRENCE CHAUHAN Report Released Date/Time: Jul 17, 2023 04:23 PM Reporting Lab: [facility] [address] Performing Lab: [facility] [address] [place] [facility] URINALYS IS LEUKOCYTES [#/AREA] IN URINE SEDIMENT BY MICROSCOPY HIGH POWER FIELD <1/[HPF] 0 - 7 07/16 Specimen Type: URINE No comment entered. Ordering Provider: TERRENCE CHAUHAN Report Released Date/Time: Jul 17, 2023 04:23 PM Reporting Lab: [facility] [address] Performing Lab: [facility] [address] [place] [facility] URINALYS IS BACTERIA [PRESENCE] IN URINE SEDIMENT BY LIGHT MICROSCOPY NONE SEEN 07/16 Specimen Type: URINE No comment entered. Ordering Provider: TERRENCE CHAUHAN Report Released Date/Time: Jul 17, 2023 04:23 PM Reporting Lab: [facility] [address] Performing Lab: [facility] [address] [place] [facility] URINALYS IS ERYTHROCYT ES [#/AREA] IN URINE SEDIMENT BY MICROSCOPY HIGH POWER FIELD <1/[HPF] 0 - 3 07/16 Specimen Type: URINE No comment entered. Ordering Provider: TERRENCE CHAUHAN Report Released Date/Time: Jul 17, 2023 04:23 PM Reporting Lab: [facility] [address] Performing Lab: [facility] [address] [place] [facility] URINALYS IS APPEARANCE OF URINE CLEAR 07/16 Specimen Type: URINE No comment entered. Ordering Provider: TERRENCE CHAUHAN Report Released Date/Time: Jul 17, 2023 04:23 PM Reporting Lab: [facility] [address] Performing Lab: [facility] [address] [place] [facility] URINALYS IS EPITHELIAL CELLS.SQUA MOUS [#/AREA] IN URINE SEDIMENT BY MICROSCOPY HIGH POWER FIELD NONE SEEN/[HP F] 04/11 /2024 Specimen Type: URINE No comment entered. Ordering Provider: TERRENCE CHAUHAN Report Released Date/Time: Jul 17, 2023 04:23 PM Reporting Lab: [facility] [address] Performing Lab: [facility] [address] [place] [facility] URINALYS IS HEMOGLOBIN [PRESENCE] IN URINE BY TEST STRIP NEGATIVE 07/16 Specimen Type: URINE No comment entered. Ordering Provider: TERRENCE CHAUHAN Report Released Date/Time: Jul 17, 2023 04:23 PM Reporting Lab: [facility] [address] Performing Lab: [facility] [address] [facility] URINALYS IS NITRITE [PRESENCE] IN URINE BY TEST STRIP NEGATIVE 07/16 Specimen Type: URINE No comment entered. Ordering Provider: TERRENCE CHAUHAN Report Released Date/Time: Jul 17, 2023 04:23 PM Reporting Lab: [facility] [address] Performing Lab: [facility] [address] [place] [facility] URINALYS IS LEUKOCYTE ESTERASE [PRESENCE] IN URINE BY TEST STRIP NEGATIVE 07/16 Specimen Type: URINE No comment entered. Ordering Provider: TERRENCE CHAUHAN Report Released Date/Time: Jul 17, 2023 04:23 PM Reporting Lab: [facility] [address] Performing Lab: [facility] [address] [facility] HEMOGLOB [...] August 07, 2022 02:21 PM Reporting Lab: [facility] [address] Performing Lab: [facility] [address] [place] [facility] BASIC METABOLI C PANEL+MG CREATININE [MASS/VOLU ME] IN SERUM OR PLASMA 1.3 mg/dL 0.7 - 1.2 07/16 H Specimen Type: PLASMA No comment entered. Ordering Provider: TERRENCE CHAUHAN Report Released Date/Time: August 07, 2022 02:21 PM Reporting Lab: [facility] [address] Performing Lab: [facility] [address] [place] [facility] BASIC METABOLI C PANEL+MG UREA NITROGEN [MASS/VOLU ME] IN SERUM OR PLASMA 15 mg/dL 8 - 26 07/16 Specimen Type: PLASMA No comment entered. Ordering Provider: TERRENCE CHAUHAN Report Released Date/Time: August 07, 2022 02:21 PM Reporting Lab: [facility] [address] Performing Lab: [facility] [address] [place] [facility] BASIC METABOLI C PANEL+MG GLUCOSE [MASS/VOLU ME] IN SERUM OR PLASMA 84 mg/dL 70 - 100 07/16 Specimen Type: PLASMA No comment entered. Ordering Provider: TERRENCE CHAUHAN Report Released Date/Time: August 07, 2022 02:21 PM Reporting Lab: [facility] [address] Performing Lab: [facility] [address] [place] [facility] BASIC METABOLI C PANEL+MG SODIUM [MOLES/VOL UME] IN SERUM OR PLASMA 137 mmol/L 136 - 145 07/16 Specimen Type: PLASMA No comment entered. Ordering Provider: TERRENCE CHAUHAN Report Released Date/Time: August 07, 2022 02:21 PM Reporting Lab: [facility] [address] Performing Lab: [facility] [address] [place] [facility] BASIC METABOLI C PANEL+MG POTASSIUM [MOLES/VOL UME] IN SERUM OR PLASMA 4.6 mmol/L 3.5 - 5.1 07/16 Specimen Type: PLASMA No comment entered. Ordering Provider: TERRENCE CHAUHAN Report Released Date/Time: August 07, 2022 02:21 PM Reporting Lab: [facility] [address] Performing Lab: [facility] [address] [place] [facility] BASIC METABOLI C PANEL+MG CHLORIDE [MOLES/VOL UME] IN SERUM OR PLASMA 105 mmol/L 98 - 107 07/16 Specimen Type: PLASMA No comment entered. Ordering Provider: TERRENCE CHAUHAN Report Released Date/Time: August 07, 2022 02:21 PM Reporting Lab: [facility] [address] Performing Lab: [facility] [address] [place] [facility] BASIC METABOLI C PANEL+MG CARBON DIOXIDE, TOTAL [MOLES/VOL UME] IN SERUM OR PLASMA 24 mmol/L 22 - 29 07/16 Specimen Type: PLASMA No comment entered. Ordering Provider: TERRENCE CHAUHAN Report Released Date/Time: August 07, 2022 02:21 PM Reporting Lab: [facility] [address] Performing Lab: [facility] [address] [place] [facility] BASIC METABOLI C PANEL+MG CALCIUM [MASS/VOLU ME] IN SERUM OR PLASMA 8.9 mg/dL 8.4 - 10.2 07/16 Specimen Type: PLASMA No comment entered. Ordering Provider: TERRENCE CHAUHAN Report Released Date/Time: August 07, 2022 02:21 PM Reporting Lab: [facility] [address] Performing Lab: [facility] [address] [place] [facility] BASIC METABOLI C PANEL+MG MAGNESIUM [MASS/VOLU ME] IN SERUM OR PLASMA 2.1 mg/dL 1.6 - 2.6 07/16 Specimen Type: PLASMA No comment entered. Ordering Provider: TERRENCE CHAUHAN Report Released Date/Time: August 07, 2022 02:21 PM Reporting Lab: [facility] [address] Performing Lab: [facility] [address] [place] [facility] BASIC METABOLI C PANEL+MG ANION GAP IN SERUM OR PLASMA 8 mmol/L 5 - 15 07/16 Specimen Type: PLASMA No comment entered. Ordering Provider: TERRENCE CHAUHAN Report Released Date/Time: August 07, 2022 02:21 PM Reporting Lab: [facility] [address] Performing Lab: [facility] [address] [place] [facility] BASIC METABOLI C PANEL+MG GLOMERULAR FILTRATION RATE/1.73 SQ M.PREDICTE D [VOLUME RATE/AREA] IN SERUM, PLASMA OR BLOOD BY CREATININE -BASED FORMULA (CKD-EPI 2020) 56 60 07/16 L Specimen Type: PLASMA No comment entered. Ordering Provider: TERRENCE CHAUHAN Report Released Date/Time: August 07, 2022 02:21 PM Reporting Lab: [facility] [address] Performing Lab: [facility] [address] [place] [facility] CBC LEUKOCYTES [#/VOLUME] IN BLOOD BY AUTOMATED COUNT 8.72 10*3/uL 4.0 - 11.0 07/16 Specimen Type: BLOOD No comment entered. Ordering Provider: TERRENCE CHAUHAN Report Released Date/Time: August 07, 2022 02:21 PM Reporting Lab: [facility] [address] Performing Lab: [facility] [address] [place] [facility] CBC ERYTHROCYT ES [#/VOLUME] IN BLOOD BY AUTOMATED COUNT 4.11 10*6/uL 4.6 - 6.2 07/16 L Specimen Type: BLOOD No comment entered. Ordering Provider: TERRENCE CHAUHAN Report Released Date/Time: August 07, 2022 02:21 PM Reporting Lab: [facility] [address] Performing Lab: [facility] [address] [place] [facility] CBC HEMOGLOBIN [MASS/VOLU ME] IN BLOOD 13.4 g/dL 13.5 - 17.9 07/16 L Specimen Type: BLOOD No comment entered. Ordering Provider: TERRENCE CHAUHAN Report Released Date/Time: August 07, 2022 02:21 PM Reporting Lab: [facility] [address] Performing Lab: [facility] [address] [place] [facility] CBC HEMATOCRIT [VOLUME FRACTION] OF BLOOD BY AUTOMATED COUNT 39.7 41 - 54 07/16 L Specimen Type: BLOOD No comment entered. Ordering Provider: TERRENCE CHAUHAN Report Released Date/Time: August 07, 2022 02:21 PM Reporting Lab: [facility] [address] Performing Lab: [facility] [address] [place] [facility] CBC MCV [ENTITIC VOLUME] BY AUTOMATED COUNT 96.6 fL 80 - 100 07/16 Specimen Type: BLOOD No comment entered. Ordering Provider: TERRENCE CHAUHAN Report Released Date/Time: August 07, 2022 02:21 PM Reporting Lab: [facility] [address] Performing Lab: [facility] [address] [place] [facility] CBC MCH [ENTITIC MASS] BY AUTOMATED COUNT 32.6 pg 27 - 33 07/16 Specimen Type: BLOOD No comment entered. Ordering Provider: TERRENCE CHAUHAN Report Released Date/Time: August 07, 2022 02:21 PM Reporting Lab: [facility] [id number] Performing Lab: [facility] [phone] [place] [facility] CBC MCHC [MASS/VOLU ME] BY AUTOMATED COUNT 33.8 g/dL 32.0 - 37.5 07/16 Specimen Type: BLOOD No comment entered. Ordering Provider: TERRENCE CHAUHAN Report Released Date/Time: August 07, 2022 02:21 PM Reporting Lab: [facility] [id number] Performing Lab: [facility] [phone] [place] [facility] CBC PLATELETS [#/VOLUME] IN BLOOD BY AUTOMATED COUNT 159 10*3/uL 150 - 400 07/16 Specimen Type: BLOOD No comment entered. Ordering Provider: TERRENCE CHAUHAN Report Released Date/Time: August 07, 2022 02:21 PM Reporting Lab: [facility] [phone] Performing Lab: [facility] [phone] [place] [facility] CBC PLATELET MEAN VOLUME [ENTITIC VOLUME] IN BLOOD BY AUTOMATED COUNT 9.6 fL 7.4 - 10.4 07/16 Specimen Type: BLOOD No comment entered. Ordering Provider: TERRENCE CHAUHAN Report Released Date/Time: August 07, 2022 02:21 PM Reporting Lab: [facility] [address] Performing Lab: [facility] [address] [facility] CBC ERYTHROCYT E DISTRIBUTI ON WIDTH [RATIO] BY AUTOMATED COUNT 14.1 11.5 - 14.5 07/16 Specimen Type: BLOOD No comment entered. Ordering Provider: TERRENCE CHAUHAN Report Released Date/Time: August 07, 2022 02:21 PM Reporting Lab: [facility] [address] Performing Lab: [facility] [address] [place] [facility] LIVER FUNCTION TESTS BILIRUBIN. TOTAL [MASS/VOLU ME] IN SERUM OR PLASMA 0.8 mg/dL 0.2 - 1.2 07/16 Specimen Type: PLASMA No comment entered. Ordering Provider: TERRENCE CHAUHAN Report Released Date/Time: August 07, 2022 02:21 PM Reporting Lab: [facility] [address] Performing Lab: [facility] [address] [place] [facility] LIVER FUNCTION TESTS ALKALINE PHOSPHATAS E [ENZYMATIC ACTIVITY/V OLUME] IN SERUM OR PLASMA 52 U/L 40 - 150 07/16 Specimen Type: PLASMA No comment entered. Ordering Provider: TERRENCE CHAUHAN Report Released Date/Time: August 07, 2022 02:21 PM Reporting Lab: [facility] [address] Performing Lab: [facility] [address] [place] [facility] LIVER FUNCTION TESTS ALANINE AMINOTRANS FERASE [ENZYMATIC ACTIVITY/V OLUME] IN SERUM OR PLASMA 20 U/L <55 - 55 07/16 Specimen Type: PLASMA No comment entered. Ordering Provider: TERRENCE CHAUHAN Report Released Date/Time: August 07, 2022 02:21 PM Reporting Lab: [facility] [address] Performing Lab: [facility] [address] [place] [facility] LIVER FUNCTION TESTS ASPARTATE AMINOTRANS FERASE [ENZYMATIC ACTIVITY/V OLUME] IN SERUM OR PLASMA 19 U/L <34 - 34 07/16 Specimen Type: PLASMA No comment entered. Ordering Provider: TERRENCE CHAUHAN Report Released Date/Time: August 07, 2022 02:21 PM Reporting Lab: [facility] [address] Performing Lab: [facility] [address] [place] [facility] LIVER FUNCTION TESTS GAMMA GLUTAMYL TRANSFERAS E [ENZYMATIC ACTIVITY/V OLUME] IN SERUM OR PLASMA 38 U/L <64 - 64 07/16 Specimen Type: PLASMA No comment entered. Ordering Provider: TERRENCE CHAUHAN Report Released Date/Time: August 07, 2022 02:21 PM Reporting Lab: [facility] [address] Performing Lab: [facility] [address] [place] [facility] PSA PROSTATE SPECIFIC AG [MASS/VOLU ME] IN SERUM OR PLASMA 3.84 ng/mL <4.00 - 4.00 07/16 Specimen Type: SERUM No comment entered. Ordering Provider: TERRENCE CHAUHAN Report Released Date/Time: August 07, 2022 02:21 PM Reporting Lab: [facility] [address] Performing Lab: [facility] [address] [facility] CREATINI NE(INCLU SATHYA EGFR) CREATININE [MASS/VOLU ME] IN SERUM OR PLASMA 1.2 mg/dL 0.7 - 1.2 04/16 Specimen Type: PLASMA No comment entered. Ordering Provider: WIEMANN,MAT THEW S Report Released Date/Time: Mar 07, 2023 02:00 PM Reporting Lab: [facility] [address] Performing Lab: [facility] [address] [place] [facility] CREATINI NE(INCLU SATHYA EGFR) GLOMERULAR FILTRATION RATE/1.73 SQ M.PREDICTE D [VOLUME RATE/AREA] IN SERUM, PLASMA OR BLOOD BY CREATININE -BASED FORMULA (CKD-EPI 2020) 62 60 04/16 Specimen Type: PLASMA No comment entered. Ordering Provider: HUYEN HYLTON S Report Released Date/Time: Mar 07, 2023 02:00 PM Reporting Lab: [facility] [address] Performing Lab: [place] [address] [place] [facility] CBC LEUKOCYTES [#/VOLUME] IN BLOOD BY AUTOMATED COUNT 8.06 10*3/uL 4.0 - 11.0 04/16 Specimen Type: BLOOD No comment entered. Ordering Provider: HUYEN HYLTON S Report Released Date/Time: Mar 07, 2023 02:00 PM Reporting Lab: [facility] [address] Performing Lab: [facility] [address] [place] [facility] CBC ERYTHROCYT ES [#/VOLUME] IN BLOOD BY AUTOMATED COUNT 4.03 10*6/uL 4.6 - 6.2 04/16 L Specimen Type: BLOOD No comment entered. Ordering Provider: HUYEN HYLTON S Report Released Date/Time: Mar 07, 2023 02:00 PM Reporting Lab: [facility] [address] Performing Lab: [facility] [address] [place] [facility] CBC HEMOGLOBIN [MASS/VOLU ME] IN BLOOD 13.1 g/dL 13.5 - 17.9 04/16 L Specimen Type: BLOOD No comment entered. Ordering Provider: HUYEN HYLTON S Report Released Date/Time: Mar 07, 2023 02:00 PM Reporting Lab: [facility] [address] Performing Lab: [facility] [address] [place] [facility] CBC HEMATOCRIT [VOLUME FRACTION] OF BLOOD BY AUTOMATED COUNT 38.9 41 - 54 04/16 L Specimen Type: BLOOD No comment entered. Ordering Provider: HUYEN HYLTON Report Released Date/Time: Mar 07, 2023 02:00 PM Reporting Lab: [facility] [address] Performing Lab: [facility] [address] [place] [facility] CBC MCV [ENTITIC VOLUME] BY AUTOMATED COUNT 96.5 fL 80 - 100 04/16 Specimen Type: BLOOD No comment entered. Ordering Provider: HUYEN HYLTON S Report Released Date/Time: Mar 07, 2023 02:00 PM Reporting Lab: [facility] [address] Performing Lab: [facility] [address] [place] [facility] CBC MCH [ENTITIC MASS] BY AUTOMATED COUNT 32.5 pg 27 - 33 04/16 Specimen Type: BLOOD No comment entered. Ordering Provider: HUYEN HYLTON Report Released Date/Time: Mar 07, 2023 02:00 PM Reporting Lab: [facility] [address] Performing Lab: [facility] [address] [place] [facility] CBC MCHC [MASS/VOLU ME] BY AUTOMATED COUNT 33.7 g/dL 32.0 - 37.5 04/16 Specimen Type: BLOOD No comment entered. Ordering Provider: HUYEN HYLTON Report Released Date/Time: Mar 07, 2023 02:00 PM Reporting Lab: [facility] [address] Performing Lab: [facility] [address] [place] [facility] CBC PLATELETS [#/VOLUME] IN BLOOD BY AUTOMATED COUNT 157 10*3/uL 150 - 400 04/16 Specimen Type: BLOOD No comment entered. Ordering Provider: HUYEN HYLTON S Report Released Date/Time: Mar 07, 2023 02:00 PM Reporting Lab: [facility] [address] Performing Lab: [facility] [address] [place] [facility] CBC PLATELET MEAN VOLUME [ENTITIC VOLUME] IN BLOOD BY AUTOMATED COUNT 9.7 fL 7.4 - 10.4 04/16 Specimen Type: BLOOD No comment entered. Ordering Provider: HUYEN HYLTON S Report Released Date/Time: Mar 07, 2023 02:00 PM Reporting Lab: [facility] [address] Performing Lab: [facility] [address] [place] [facility] CBC ERYTHROCYT E DISTRIBUTI ON WIDTH [RATIO] BY AUTOMATED COUNT 14.5 11.5 - 14.5 04/16 Specimen Type: BLOOD No comment entered. Ordering Provider: HUYEN HYLTON S Report Released Date/Time: Mar 07, 2023 02:00 PM Reporting Lab: [facility] [address] Performing Lab: [facility] [address] [place] [facility] AST/SGOT ASPARTATE AMINOTRANS FERASE [ENZYMATIC ACTIVITY/V OLUME] IN SERUM OR PLASMA 22 U/L <34 - 34 04/16 Specimen Type: PLASMA No comment entered. Ordering Provider: HUYEN HYLTON S Report Released Date/Time: Mar 07, 2023 02:00 PM Reporting Lab: [facility] [address] Performing Lab: [facility] [address] [place] [facility] ALT/SGPT ALANINE AMINOTRANS FERASE [ENZYMATIC ACTIVITY/V OLUME] IN SERUM OR PLASMA 19 U/L <55 - 55 04/16 Specimen Type: PLASMA No comment entered. Ordering Provider: HUYEN HYLTON Report Released Date/Time: Mar 07, 2023 02:00 PM Reporting Lab: [facility] [address] Performing Lab: [facility] [address] [place] [facility] Vital Signs Combined [...] ADM Date DC Date Status [facility] Outpatient Encounter [id number] 04/[facility] EMERGENCY DEPT VISIT SF MDM [id number] Diagnos is: ICD-10- CM Z76.0 Encount er for issue of repeat prescri ption<b r/> ALYSSIAEDMUNDOAICHA Perez 05/09 [facility] Outpatient Encounter [id number] 05/09 [facility] [place] [facility] Outpatient Encounter [id number] 06/12 [place] [facility] [place] [facility] Outpatient Encounter [id number] 07/15 [facility] [place] [facility] OFFICE O/P EST MOD 30-39 MIN [id number] Diagnos is: ICD-10- CM Z00.01 Encount er for general adult medical exam w abnorma l finding s
DANETTE LIN LY E 08/07 [facility] [place] [facility] Outpatient Encounter [id number] 08/07 [facility] [place] [facility] Outpatient Encounter [id number] OLESYA ROGERS 08/12 [place] [facility] [place] [facility] Outpatient Encounter [id number] OLESYA ROGERS 08/12 [place] [facility] [place] [facility] Outpatient Encounter [id number] Ana CHAUHAN 09/12 [place] [facility] [place] [facility] Outpatient Encounter [id number] 11/06 [place] [facility] [place] [facility] Outpatient Encounter [id number] 12/08 [place] [facility] [place] [facility] Outpatient Encounter [id number] 12/12 [place] [place] [facility] Outpatient Encounter [id number] 01/17 [place] [place] [facility] Outpatient Encounter [id number] 02/19 [place] [facility] [place] [facility] Outpatient Encounter [id number] 02/24 [place] [place] [facility] Outpatient Encounter [id number] 03/07 [place] [facility] QNHP OL DIG ASSMT&MGMT 5-10 [id number] Diagnos is: ICD-10- 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
ELLEN GARCIA 05/29 [facility] OFFICE O/P EST MOD 30 MIN [id number] Diagnos is: ICD-10- CM Z00.01 Encount er for general adult medical exam w abnorma l finding s
Ana CHAUHAN 07/16 [facility] [place] [facility] Outpatient Encounter [id number] 07/17 [facility] Social History Combined list of available smoking, tobacco, and other social history from [employer] and [facility] Affairs facilities. Social History Type Response Date Comment Sour e Tobacco smoking status NHIS IN-TOBACCO FORMER USER 07/17/2023 [facility] History of tobacco use IN-TOBACCO QUIT 1 TO < 5 YRS 07/17/2023 [facility] History of tobacco use IN-TOBACCO FORMER USER 08/07/2022 [facility] History of tobacco use IN-TOBACCO FORMER USER 10/16/2020 [facility] History of tobacco use IN-TOBACCO USE CO UNSEL NO 03/29/2019 [facility] History of tobacco use IN-TOBACCO USER E VERY DAY 02/17/2018 [facility] History of tobacco use CURRENT TOBACCO USER 02/12/2017 [facility] History of tobacco use CURRENT TOBACCO USER 04/25/2015 [facility] History of tobacco use CURRENT TOBACCO USER 04/21/2014 [facility] History of tobacco use CURRENT TOBACCO USER 04/20/2013 [facility] History of tobacco use CURRENT TOBACCO USER 03/20/2012 [facility] History of tobacco use CURRENT TOBACCO USER 02/06/2011 [facility] History of tobacco use CURRENT TOBACCO USER 01/02/2010 [facility]
--- OUTSIDE RECORDS SUMMARY | 2023-09-29 10:26 | XMS_ITS | Clinical Summary ---
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 LLE angiogram 2. 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 Panlobular emphysema 10/21/2018 COPD exacerbation 09/09/2018 [...] Lab Requisition [facility] [phone] Unknown, Doctor 08/04/2023 8:35 AM CDT Office Visit [facility] [address] [place] [address] Jena Pascual PA Follow Up (Boil) 08/04/2023 Travel 08/01/2023 8:35 AM CDT Office Visit [facility] [address] [place] [address] Jena Pascual PA Derm Problem 08/01/2023 Travel [...] T Respiratory Rate 18 03/17/2023 3:35 PM CLINIC ASSISTANT Oxygen Saturation 96% 08/04/2023 8:35 AM CDT Inhaled Oxygen Concentration - - Weight 90.7 kg (200 lb) 08/04/2023 8:35 AM CDT Height 190.5 cm (6' 3) 03/17/2023 2:07 PM CLINIC ASSISTANT Body Mass Index 25 03/17/2023 2:07 PM CLINIC ASSISTANT Plan of Treatment Health Maintenance Due [...] back ANTI HCV Routine 05/16/2021 3:20 PM CLINIC ASSISTANT Need for hepatitis C screening test CT CHEST WO Routine 08/29/2010 4:53 PM CDT Pulmonary nodules from Last 3 Months or Most Recently Relevant to Health Maintenance Results * LAB TRACKING EVENT (08/05/2023 2:01 PM CDT) Other (Other) Client Collect / Unknown 08/05/2023 2:01 PM CDT 08/05/2023 9:37 PM CDT Doctor Unknown LAB BILL ONLY [facility] [address] [place] [address], * PATH TISSUE EXAM (08/05/2023 2:01 PM CDT) Case Report Pathology Report ?Case: [id number] ? Authorizing Provider: ??Unknown, Doctor ?Collected: ? 08/05/2023 1401 ? Ordering Location: ? [facility] ?Received: ?08/06/2023 1013 ? Pathologist: ? Jose Rinaldi MD ? Specimen: ?Back ? 08/07/2023 4:47 PM CDT [facility] Final Diagnosis A) SKIN, BACK, CYST, EXCISION: 1. Epidermoid cyst 2. Negative for dysplasia or malignancy 08/07/2023 4:47 PM CDT [facility] Clinical Information back cyst 08/07/2023 4:47 PM CDT [facility] Gross Description A) Received in formalin, labeled with the patient's name and date of , is a 1.5 x 1.1 x 0.3 cm aggregate of pale-garcia cyst wall fragments admixed with agrcia-white soft, friable cyst contents. ??The specimen is filtered and submitted entirely in 1 cassette. [facility] 08/06/2023 08/07/2023 4:47 PM CDT [facility] Microscopic Description The final diagnosis is based on microscopic examination of appropriate sections of all specimens. 08/07/2023 4:47 PM CDT [facility] Additional Information Interpreted at [facility] - [address], [place] [address] 08/07/2023 4:47 PM CDT [facility] Other (Back) 08/05/2023 2:01 PM CDT 08/06/2023 10:13 AM CDT Doctor Unknown PATHOLOGY/CYTOLOGY [facility] [address] [place] [address], * AEROBIC BACTERIAL CULTURE, STAIN (08/01/2023 9:30 AM CDT) CULTURE No Growth. 08/03/2023 3:00 PM CDT [facility] GRAM STAIN 4+ RBCs 08/03/2023 3:00 PM CDT [facility] GRAM STAIN 1+ PMNs 08/03/2023 3:00 PM CDT [facility] GRAM STAIN No Epithelial cells 08/03/2023 3:00 PM CDT [facility] GRAM STAIN 4+ Gram Positive Cocci 08/03/2023 3:00 PM CDT [facility] GRAM STAIN 3+ Gram Negative Bacilli 08/03/2023 3:00 PM CDT [facility] Other (Other) Non-Blood / Unknown 08/01/2023 9:30 AM CDT 08/01/2023 9:31 AM CDT Jena RICHARDSON MICROBIOLOGY [facility] [address] [place] [address], * ANTI HCV (05/16/2021 3:20 PM CLINIC ASSISTANT) HEPATITIS C ANTIBODY Non-React edelmira Non-React edelmira 05/17/2021 1:21 AM CLINIC ASSISTANT [facility] Comment:Antibodies to HCV no t detected; does not exclude the possibility of exposure to HCV. Blood BLOOD SPECIMEN / Unknown Venipuncture / Unknown 05/16/2021 3:20 PM CLINIC ASSISTANT 05/16/2021 3:25 PM CLINIC ASSISTANT Zak Garcia MD SEND OUTS Performing Organization Address City/[facility]/ZIP Co de Phone Number [facility] [address] [place] [address], * CT CHEST WO CONTRAST (08/29/2010 4:53 [...] Comments Code Status Discussion: Discussed Care Teams Special Procedures Tech Relationship Specialty Start Date End Date Klever Monte MD [address] [place] [address] PCP - General Family Practice 06/12/22
--- OUTSIDE RECORDS SUMMARY | 2023-09-29 10:27 | XMS_ITS | Data Portability ---
Author Organization [place] - [facility], [employer] Address [address] [place] [address] Assessment Encounter Date Assessment Date Assessment LastModified [...] user Active 2015 Tobacco user; Original Code: 377283714 Origi nal Codesystem: SNOMED CT Classificati on: Medical Confirm ation Status: Probable Not Available [facility] Onychomycosis of toenails Active 2015 Onychomycosis of toenails; Original Code: 7879061617 Orig inal Codesystem: SNOMED CT Classificati on: Medical Confirm ation Status: Confirmed Not Available [facility] 09:10:17 Heart disease Active 2021 Heart disease; Original Code: 76968451 Origin al Codesystem: SNOMED CT Classificati on: Medical Confirm ation Status: Confirmed Not Available [facility] 3 09:10:17 Corns and callus Active 2015 Corns and callus; Original Code: 162901764 Origi nal Codesystem: SNOMED CT Classificati on: Medical Confirm ation Status: Confirmed Not Available [facility] 3 09:10:17 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; Original Code: 9822365244 Orig inal Codesystem: SNOMED CT Classificati on: Medical Confirm ation Status: Confirmed Not Available [facility] 3 09:10:17 Foot pain Active 2015 Foot pain; Original Code: 834439981 Origi nal Codesystem: SNOMED CT Classificati on: Medical Confirm ation Status: Confirmed Not Available [facility] 3 09:10:17 Acquired hallux valgus Active 2015 Acquired hallux valgus; Original Code: 667521643 Origi nal Codesystem: SNOMED CT Classificati on: Medical Confirm ation Status: Confirmed Not Available [facility] 3 09:10:17 Acquired hallux malleus Active 2015 Acquired hallux malleus; Original Code: 34266555 Origin al Codesystem: SNOMED CT Classificati on: Medical Confirm ation Status: Confirmed Not Available [facility] 3 09:10:17 Atrial fibrillation Active 2015 Atrial fibrillation; Original Code: 84857177 Origin al Codesystem: SNOMED CT Classificati on: Medical Confirm ation Status: Confirmed Not Available [facility] 3 09:10:17 Hypertensive disorder Active 2015 Hypertensive disorder; Original Code: 2608363176 Orig inal Codesystem: SNOMED CT Classificati on: Medical Confirm ation Status: Confirmed Not Available [facility] 3 09:10:17 Notes:H/O: anticoagulant the rapy Original Code: 062831735 Original Codesystem: SNOMED CT Classification: Medical Confirmation Status: Confirmed Problem Notes None recorded. Procedures Surgical History Date Name Laterality Status Provider Name and Address Organization Details Recorded Time 10/24/[address] Hong Andres DPM [address] [place] [address], [phone], [facility] 10/23/2022 11:44:57 07/25/[address] Pitts completed Too Andres DPM [address] [place] [address], [phone], [facility] 07/24/2022 10:35:10 04/24/[address] Hong Andres DPM [address] [place] [address], [phone], [facility] 04/24/2022 11:13:18 [...] Updated DateTime 04/24/2022 190.5 cm 25 kg/m2 94043.47 g Mamta Corbett [facility] 04/24/2022 10:32:58 Social History None recorded. Functional Status None recorded. Mental Status None recorded. Family History Nothing Reported. Medical History No medical history recorded. Past Encounters Encounter ID Performer Location Encounter Start Date Encounter Closed Date Diagnosis/Indication Diagnosis SNOMED-CT Code [id number] Too Andres DPM [facility] [address] [place] [phone] 04/24/2022 10:31:04 04/24/2022 13:46:36 Onychomycosis [id number] Peripheral vascular disease [id number] Too Andres DPM [facility] [address] [place] [phone] 07/24/2022 10:14:25 07/25/2022 09:45:42 Onychomycosis 499194826 Peripheral vascular disease 867218814 [id number] Too Andres DPM [facility] [address] [place] [address] 10/23/2022 10:13:43 10/24/2022 09:44:58 Onychomycosis 000061575 Peripheral vascular disease 484557163 Health Concerns Section Related Observation LastModified by Organization Detai ls LastModified Time None Recorded Concern Status LastModified by Organization Details LastModified Time None Recorded Advance Directives Directive None Recorded Payers Encounter Date Sequence Insurance Name Policy Number Policy Kevin Covered Member ID Kevin Member ID Guarantor Name 04/24/2022 1 [employer] [id number] Bola Zurita [id number] Bola Zurita 07/24/2022 1 [place] [id number] Bola Zurita [id number] Bola Zurita 10/23/2022 1 [place] [id number] Bola J Parminder [id number] Bola Zurita Notes Date Note Type Note Provider Name and Address Organization Details Recorded Time 04/24/2022 text/html HPI Notes: Pawel salmeron is a 77 year old male established patient who presents with the chief complaint. Presents today for evaluation of problematic toenails and feet in general. They relate chronic thickening and deformity to their toenails that has not responded to self-trimming, topical tuyq-mko-alfrfwi anti-fungal therapy, foot soaks, and other similar [...] and treatment options. Too Andres DPM [address] [place], [phone], [facility] 04/24/2022 11:14:44 07/24/2022 text/html HPI Notes: Pawel salmeron is a 77 year old male established patient who presents with the chief complaint. Presents today for evaluation of problematic toenails and feet in general. They relate chronic thickening and deformity to their toenails that has not responded to self-trimming, topical lpxr-bex-uugyfvg anti-fungal therapy, foot soaks, and other similar conservative treatments. Nails are painful with catching on shoegear and socks. Denies any recent foot injury or infection. Claudication symptoms: No Burning symptoms: No Paresthesia: Subjective numbness to the left lower extremity consistent with his previous surgical procedures performed through [facility] Patient presents for further evaluation and treatment options. Too Andres DPM [address] [place], [phone], [facility] 07/24/2022 10:35:54 10/23/2022 text/html HPI Notes: Pawel salmeron is a 77 year old male established patient who presents with the chief complaint. Presents today for evaluation of problematic toenails and feet in general. They relate chronic thickening and deformity to their toenails that has not responded to self-trimming, topical dzuo-hqq-clrfjlv anti-fungal therapy, foot soaks, and other similar conservative treatments. Nails are painful with catching on shoegear and socks. Denies any recent foot injury or infection. Claudication symptoms: No Burning symptoms: No Paresthesia: Subjective numbness to the left lower extremity consistent with his previous surgical procedures performed through [facility] Patient presents for further evaluation and treatment options. Too Andres DPM [address] [place], [phone], [facility] 10/23/2022 11:45:19
== END 2023-09-29 10:25 | disposition home or self-care (01) ==
LOC: WOUND 10:24
PROVIDERS: PCP Family Medicine; Visit Provider Nurse Practitioner Family
DX: L72.0 Epidermal cyst (principal)
CPT/HCPCS: 11042

== ENCOUNTER 2023-10-02 15:21 | Outpatient (CLI) | payer MEDICARE, BC, SELFPAY ==
--- OUTSIDE RECORDS SUMMARY | 2023-10-02 15:23 | XMS_ITS | Clinical Summary ---
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 Panlobular emphysema 10/21/2018 COPD exacerbation 09/09/2018 [...] 08/05/2023 Lab Requisition [facility] [phone] Unknown, Doctor 08/04/2023 8:35 AM CDT Office Visit [facility] [address] [place] [address] Jena Pascual PA Follow Up (Boil) 08/04/2023 Travel 08/01/2023 8:35 AM CDT Office Visit [facility] [address] [facility] [place] [address] Jena Pascual PA Derm Problem 08/01/2023 Travel [...] T Respiratory Rate 18 03/17/2023 3:35 PM [employer] Oxygen Saturation 96% 08/04/2023 8:35 AM CDT Inhaled Oxygen Concentration - - Weight 90.7 kg (200 lb) 08/04/2023 8:35 AM CDT Height 190.5 cm (6' 3) 03/17/2023 2:07 PM [employer] Body Mass Index 25 03/17/2023 2:07 PM [employer] Plan of Treatment Health Maintenance Due Date [...] back ANTI HCV Routine 05/16/2021 3:20 PM [employer] Need for hepatitis C screening test CT CHEST WO Routine 08/29/2010 4:53 PM CDT Pulmonary nodules from Last 3 Months or Most Recently Relevant to Health Maintenance Results * LAB TRACKING EVENT (08/05/2023 2:01 PM CDT) Other (Other) Client Collect / Unknown 08/05/2023 2:01 PM CDT 08/05/2023 9:37 PM CDT Doctor Unknown LAB BILL ONLY [facility] [address] [place] [address], * PATH TISSUE EXAM (08/05/2023 2:01 PM CDT) Case Report Pathology Report ?Case: [id number] ? Authorizing Provider: ??Unknown, Doctor ?Collected: ? 08/05/2023 1401 ? Ordering Location: ? [facility] ?Received: ?08/06/2023 1013 ? Pathologist: ? Jose Rinaldi MD ? Specimen: ?Back ? 08/07/2023 4:47 PM CDT [facility] Final Diagnosis A) SKIN, BACK, CYST, EXCISION: 1. Epidermoid cyst 2. Negative for dysplasia or malignancy 08/07/2023 4:47 PM CDT [facility] Clinical Information back cyst 08/07/2023 4:47 PM CDT [facility] Gross Description A) Received in formalin, labeled with the patient's name and date of , is a 1.5 x 1.1 x 0.3 cm aggregate of pale-garcia cyst wall fragments admixed with garcia-white soft, friable cyst contents. ??The specimen is filtered and submitted entirely in 1 cassette. [facility] 08/06/2023 08/07/2023 4:47 PM CDT [facility] Microscopic Description The final diagnosis is based on microscopic examination of appropriate sections of all specimens. 08/07/2023 4:47 PM CDT [facility] Additional Information Interpreted at [facility] - [address], [place] [address] 08/07/2023 4:47 PM CDT [facility] Other (Back) 08/05/2023 2:01 PM CDT 08/06/2023 10:13 AM CDT Doctor Unknown PATHOLOGY/CYTOLOGY [facility] [address] [place] [address], * AEROBIC BACTERIAL CULTURE, STAIN (08/01/2023 9:30 AM CDT) CULTURE No Growth. 08/03/2023 3:00 PM CDT [facility] GRAM STAIN 4+ RBCs 08/03/2023 3:00 PM CDT [facility] GRAM STAIN 1+ PMNs 08/03/2023 3:00 PM CDT [facility] GRAM STAIN No Epithelial cells 08/03/2023 3:00 PM CDT [facility] GRAM STAIN 4+ Gram Positive Cocci 08/03/2023 3:00 PM CDT [facility] GRAM STAIN 3+ Gram Negative Bacilli 08/03/2023 3:00 PM CDT [facility] Other (Other) Non-Blood / Unknown 08/01/2023 9:30 AM CDT 08/01/2023 9:31 AM CDT Jena RICHARDSON MICROBIOLOGY [facility] [address] [place] [address], * ANTI HCV (05/16/2021 3:20 PM [employer]) HEPATITIS C ANTIBODY Non-React edelmira Non-React edelmira 05/17/2021 1:21 AM [employer] [facility] Comment:Antibodies to HCV no t detected; does not exclude the possibility of exposure to HCV. Blood BLOOD SPECIMEN / Unknown Venipuncture / Unknown 05/16/2021 3:20 PM [employer] 05/16/2021 3:25 PM [employer] Zak Garcia MD SEND OUTS Performing Organization Address City/[facility]/ZIP Co de Phone Number [facility] [address] [place] [address], * CT CHEST WO CONTRAST (08/29/2010 4:53 [...] Comments Code Status Discussion: Discussed Care Teams Application Assistant Relationship Specialty Start Date End Date Klever Monte MD [address] [place] [address] PCP - General Family Practice 06/12/22
--- OUTSIDE RECORDS SUMMARY | 2023-10-02 15:23 | XMS_ITS | Continuity of Care Document ---
Author Name [facility] Organization [facility] Care Team Providers Care Gym Manager Name Role Phone [facility] Unavailable Unavailable Problems Combined list of problems from Department of Defense and Veterans Affairs facilities. It does not include entries that were removed or entered in error. Problem Status Onset Date Problem Type Date of Resolution Comments Source CVD - Cerebrovascular Disease ([facility] 90153941) Active 03/19/20 20 Condition May 01, 2020 Entered By: YOAV CHAUHAN Comment: 03/19/20: L MCA CVA, Admit ANW. Cardio-embol ic d/t Warfarin DC [facility] CAD - Coronary Artery Disease ([facility] [id number]) Active 01/27/20 20 Condition Mar 13, 2020 Entered By: YOAV CHAUHAN Comment: 01/27/20: LAD and Dx stented w/SATHYA at [facility]. Plavix +ASA thru 01/26/21 [facility] Peripheral arterial insufficiency Active 01/21/20 20 Condition Mar 13, 2020 Entered By: YOAV CHAUHAN Comment: 01/21/20: L femoral Art occlusion per [facility]-->Fem -Tibial bypass planned [facility] Allergic rhinitis (SNOMED CT 85751361) Active Condition [facility] Atrial fibrillation (SNOMED CT 95312204) Active Condition Apr 26, 2015 Entered By: YOAV CHAUHAN Comment: Warfarin through Miryam Rodriguez [facility] Co-Managed Care Active Condition Dec 25, 2017 Entered By: YOAV CHAUHAN Comment: Dr Garcia, Michael [place], F: [phone] , [facility] COPD - Chronic Obstructive Pulmonary Disease ([facility] [id number]) Active Condition Dec 25, 2017 Entered By: YOAV CHAUHAN Comment: Mometasone & Albuterol MDI's [facility] [place] of toe Active Condition Sep 08, 2019 Entered By: YOAV CHAUHAN Comment: R middle toe [facility] Current smoker Active Condition Apr 082015 Entered By: YOAV CHAUHAN Comment: Cigars, not cigarettes [facility] Essential hypertension (SNOMED CT 25346449) Active Condition [facility] Glucose intolerance Active Condition [facility] Nocturia due to benign prostatic hypertrophy Active Condition [facility] Health Maintenance (ICD-9-CM V65.9) Inactive Condition 04/26/2015 BELGICA MANCILLA [facility] Diagnosis: ICD-10-CM Z00.01 Encounter for general adult medical exam w abnormal findings [facility] Diagnosis: 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 [facility] Diagnosis: ICD-10-CM Z76.0 Encounter for issue of repeat prescription Active Diagnosis [facility] Medications Combined list of outpatient [...] BREATH RESPIR ATORY (INHAL ATION) ACTIVE 07/17/2024 [id number] AFRICA CHAUHAN 2023 2 [facility] ALBUTEROL 90MCG/ACTUA T (CFC-F) INHL,ORAL,8 .5GM DOSE COUNTER INHALE 2 PUFFS BY INHALATI ON FOUR TIMES A DAY NEEDED FOR SHORTNES S OF BREATH RESPIR ATORY (INHAL ATION) DISCONT INUED 08/08/2023 [id number] 3 AFRICA CHAUHAN 2022 2 [facility] APIXABAN 5MG TAB TAKE ONE TABLET BY MOUTH EVERY 12 HOURS TO PREVENT BLOOD CLOTS AND STROKE (ELIQUIS ) ORAL ACTIVE 05/29/2024 [id number] 4 MARIANO GARCIA 2023 180 [facility] APIXABAN 5MG TAB TAKE ONE TABLET BY MOUTH EVERY 12 HOURS TO PREVENT BLOOD CLOTS AND STROKE (ELIQUIS ) ORAL DISCONT INUED 05/09/2023 [id number] 3 MARIANO GARCIA 2022 180 [facility] CHOLECALCIF JONNA 25MCG (1,000UNIT) TAB TAKE FIVE TABLETS BY MOUTH QOD ORAL ACTIVE AFRICA CHAUHAN 2016 [facility] FLUOCINONID E 0.1% CREAM,TOP APPLY A THIN LAYER TOPICALL Y TWICE A DAY NEEDED FOR RASH TOPICA L ACTIVE 12/13/2023 [id number] 3 AFRICA CHAUHAN 2022 60 [facility] FLUTICASONE 250MCG/SALM ETEROL 50MCG INHL,ORAL,D ISKUS,60 INHALE 1 PUFF BY INHALATI ON TWICE A DAY FOR COPD RESPIR ATORY (INHAL ATION) ACTIVE 07/17/2024 [id number] 4 AFRICA CHAUHAN 2023 3 [facility] FLUTICASONE 250MCG/SALM ETEROL 50MCG INHL,ORAL,D ISKUS,60 INHALE 1 PUFF BY INHALATI ON TWICE A DAY FOR COPD THIS REPLACES YOUR MOMETASO NE RESPIR ATORY (INHAL ATION) DISCONT INUED 08/08/2023 [id number] 4 AFRICA CHAUHAN 2022 3 [facility] FUROSEMIDE 20MG TAB TAKE ONE TABLET BY MOUTH THREE TIMES A WEEK FOR HEART FAILURE ORAL ACTIVE 02/25/2024 [id number] 3 Hong DONAHUE 2022 39 [facility] FUROSEMIDE 20MG TAB TAKE ONE TABLET BY MOUTH EVERY OTHER DAY FOR HEART FAILURE ORAL DISCONT INUED (EDIT) 08/13/2023 [id number] 3 AFRICA CHAUHAN 2022 45 [facility] FUROSEMIDE 20MG TAB TAKE ONE TABLET BY MOUTH EVERY MORNING FOR HEART FAILURE ORAL DISCONT INUED 08/08/2023 [id number] 3 AFRICA CHAUHAN 2022 90 [facility] HYDROCHLORO THIAZIDE 12.5MG TAB TAKE ONE TABLET BY MOUTH EVERY DAY FOR BLOOD PRESSURE ORAL DISCONT INUED 08/08/2023 [id number] 3 AFRICA CHAUHAN 2022 90 [facility] METOPROLOL SUCCINATE 50MG TAB,SA TAKE THREE TABLETS BY MOUTH EVERY DAY FOR BLOOD PRESSURE ORAL DISCONT INUED 08/08/2023 [id number] 3 AFRICA CHAUHAN 2022 270 [facility] METOPROLOL TARTRATE 100MG TAB TAKE ONE TABLET BY MOUTH TWICE A DAY FOR BLOOD PRESSURE ORAL ACTIVE 12/13/2023 [id number] 4 AFRICA CHAUHAN 2022 180 [facility] NIFEDIPINE (EQV-CC) 60MG TAB,SA TAKE ONE TABLET BY MOUTH EVERY DAY FOR BLOOD PRESSURE ORAL DISCONT INUED BY PROVIDE R 08/08/2023 [id number] 3 AFRICA CHAUHAN 2022 90 [facility] NIFEDIPINE (EQV-CC) 60MG TAB,SA TAKE ONE TABLET BY MOUTH EVERY DAY FOR BLOOD PRESSURE ORAL DISCONT INUED 09/11/2022 [id number] 3 AFRICA CHAUHAN 2022 90 [facility] NIFEDIPINE (EQV-CC) 90MG TAB,SA TAKE ONE TABLET BY MOUTH EVERY DAY FOR BLOOD PRESSURE ORAL ACTIVE 07/17/2024 [id number] 4 AFRICA CHAUHAN 2023 90 [facility] NIFEDIPINE (EQV-CC) 90MG TAB,SA TAKE ONE TABLET BY MOUTH EVERY DAY FOR BLOOD PRESSURE INCREASE D DOSE PER CO-MANAG ED CARE INCREASE D DOSE PER CO-MANAG ED CARE ORAL DISCONT INUED 12/13/2023 [id number] 4 AFRICA CHAUHAN [place] 2022 90 [facility] POTASSIUM CHLORIDE 10MEQ TAB,SA TAKE ONE TABLET BY MOUTH THREE TIMES A WEEK FOR POTASSIU M SUPPLEME NT TAKE WITH FUROSEMI DE ORAL ACTIVE 02/25/2024 [id number] 3 Hong DONAHUE [facility]ES[facility] A 2022 39 [facility] POTASSIUM CHLORIDE 10MEQ TAB,SA TAKE ONE TABLET BY MOUTH EVERY OTHER DAY FOR POTASSIU M SUPPLEME NT ORAL DISCONT INUED (EDIT) 08/13/2023 [id number] 3 AFRICA CHAUHAN 2022 45 [facility] POTASSIUM CHLORIDE 10MEQ TAB,SA TAKE ONE TABLET BY MOUTH EVERY DAY FOR CONGESTI VE HEART FAILURE ORAL DISCONT INUED 08/08/2023 [id number] 3 AFRICA CHAUHAN 2022 90 [facility] POTASSIUM CHLORIDE 10MEQ TAB,SA TAKE ONE TABLET BY MOUTH EVERY DAY FOR CONGESTI VE HEART FAILURE ORAL DISCONT INUED 11/16/2022 [id number] 3 AFRICA CHAUHAN 2021 90 [facility] ROSUVASTATI N CA 20MG TAB TAKE ONE TABLET BY MOUTH AT BEDTIME FOR CORONARY ARTERY DISEASE ORAL ACTIVE 07/17/2024 [id number] 4 AFRICA CHAUHAN 2023 90 [facility] ROSUVASTATI N CA 20MG TAB TAKE ONE TABLET BY MOUTH AT BEDTIME FOR CORONARY ARTERY DISEASE ORAL DISCONT INUED 08/08/2023 [id number] 4 AFRICA CHAUHAN 2022 90 [facility] TAMSULOSIN HCL 0.4MG CAP TAKE ONE CAPSULE BY MOUTH EVERY EVENING FOR PROSTATE ORAL ACTIVE 07/17/2024 [id number] 4 AFRICA CHAUHAN 2023 30 [facility] Allergies, Adverse Reactions, Alerts Combined list of allergies from Department of Defense and Veterans Affairs facilities. It does not include entries that were removed or entered in error. Substance Category Reaction Severity Reaction type Status Date Reported Comments Source LISINOPRIL Propensity to adverse reactions to drug (finding) Cough active 0 [facility] Immunizations Combined list of available immunizations from the Department of Defense and Veterans Affairs facilities. Immunization Series Date Given Administered By Site Reaction Lot Number CVX Code Drug Curer Foam Rubber Status Comments Source COVID-19 ([facility]), MRNA, LNP-S, BIVALENT, PF, 30 MCG/0.3 ML DOSE 2022 300 complet [facility] COVID-19 ([facility]), MRNA, LNP-S, PF, 30 MCG/0.3 ML DOSE, JAMES-SUCROSE (AGES 12+ YEARS) 2021 217 complet ed [facility] COVID-19 ([facility]), MRNA, LNP-S, PF, 30 MCG/0.3 ML DOSE 2020 208 complet [facility] ZOSTER RECOMBINANT 2 2020 187 complet [facility] INFLUENZA VACCINE, QUADRIVALENT, ADJUVANTED 2020 205 complet [facility] INFLUENZA, UNSPECIFIED FORMULATION 2020 88 complet [facility] ZOSTER RECOMBINANT 1 2020 187 complet [facility] COVID-19 ([facility]), MRNA, LNP-S, PF, 30 MCG/0.3 ML DOSE 2 2020 208 complet [facility] COVID-19 ([facility]), MRNA, LNP-S, PF, 30 MCG/0.3 ML DOSE 1 2020 208 complet [facility] INFLUENZA VACCINE, QUADRIVALENT, ADJUVANTED 2019 205 complet [facility] INFLUENZA, TRIVALENT, ADJUVANTED 2018 168 complet [facility] INFLUENZA, SEASONAL, INJECTABLE 2018 141 complet [facility] INFLUENZA, SEASONAL, INJECTABLE 2017 141 complet [facility] INFLUENZA, TRIVALENT, ADJUVANTED 2017 168 complet [facility] INFLUENZA, HIGH DOSE SEASONAL 2016 135 complet [facility] PNEUMOCOCCAL POLYSACCHARID E PPV23 2016 33 complet ed [employer] , [id number], 06/03/18 [facility] TD (ADULT), 2 [...] Jul 17, 2023 04:23 PM Reporting Lab: [facility] [address] Performing Lab: [facility] [address] [facility] URINALYS IS SPECIFIC GRAVITY OF URINE 1.006 1.003 - 1.035 07/16 Specimen Type: URINE No comment entered. Ordering Provider: TERRENCE CHAUHAN Report Released Date/Time: Jul 17, 2023 04:23 PM Reporting Lab: [facility] [address] Performing Lab: [facility] [address] [place] [facility] URINALYS IS BILIRUBIN. TOTAL [PRESENCE] IN URINE BY TEST STRIP NEGATIVE 07/16 Specimen Type: URINE No comment entered. Ordering Provider: TERRENCE CHAUHAN Report Released Date/Time: Jul 17, 2023 04:23 PM Reporting Lab: [facility] [address] Performing Lab: [facility] [address] [place] [facility] URINALYS IS KETONES [MASS/VOLU ME] IN URINE BY TEST STRIP NEGATIVE 07/16 Specimen Type: URINE No comment entered. Ordering Provider: TERRENCE CHAUHAN Report Released Date/Time: Jul 17, 2023 04:23 PM Reporting Lab: [facility] [address] Performing Lab: [facility] [address] [place] [facility] URINALYS IS GLUCOSE [MASS/VOLU ME] IN URINE BY TEST STRIP NEGATIVE mg/dL 07/16 Specimen Type: URINE No comment entered. Ordering Provider: TERRENCE CHAUHAN Report Released Date/Time: Jul 17, 2023 04:23 PM Reporting Lab: [facility] [address] Performing Lab: [facility] [address] [place] [facility] URINALYS IS PROTEIN [MASS/VOLU ME] IN URINE BY TEST STRIP NEGATIVE mg/dL 07/16 Specimen Type: URINE No comment entered. Ordering Provider: TERRENCE CHAUHAN Report Released Date/Time: Jul 17, 2023 04:23 PM Reporting Lab: [facility] [address] Performing Lab: [facility] [address] [place] [facility] URINALYS IS PH OF URINE BY TEST STRIP 7.0 5.0 - 8.0 07/16 Specimen Type: URINE No comment entered. Ordering Provider: TERRENCE CHAUHAN Report Released Date/Time: Jul 17, 2023 04:23 PM Reporting Lab: [facility] [address] Performing Lab: [facility] [address] [place] [facility] URINALYS IS LEUKOCYTES [#/AREA] IN URINE SEDIMENT BY MICROSCOPY HIGH POWER FIELD <1/[HPF] 0 - 7 07/16 Specimen Type: URINE No comment entered. Ordering Provider: TERRENCE CHAUHAN Report Released Date/Time: Jul 17, 2023 04:23 PM Reporting Lab: [facility] [address] Performing Lab: [facility] [address] [place] [facility] URINALYS IS BACTERIA [PRESENCE] IN URINE SEDIMENT BY LIGHT MICROSCOPY NONE SEEN 07/16 Specimen Type: URINE No comment entered. Ordering Provider: TERRENCE CHAUHAN Report Released Date/Time: Jul 17, 2023 04:23 PM Reporting Lab: [facility] [address] Performing Lab: [facility] [address] [place] [facility] URINALYS IS ERYTHROCYT ES [#/AREA] IN URINE SEDIMENT BY MICROSCOPY HIGH POWER FIELD <1/[HPF] 0 - 3 07/16 Specimen Type: URINE No comment entered. Ordering Provider: TERRENCE CHAUHAN Report Released Date/Time: Jul 17, 2023 04:23 PM Reporting Lab: [facility] [address] Performing Lab: [facility] [address] [place] [facility] URINALYS IS APPEARANCE OF URINE CLEAR 07/16 Specimen Type: URINE No comment entered. Ordering Provider: TERRENCE CHAUHAN Report Released Date/Time: Jul 17, 2023 04:23 PM Reporting Lab: [facility] [address] Performing Lab: [facility] [address] [place] [facility] URINALYS IS EPITHELIAL CELLS.SQUA MOUS [#/AREA] IN URINE SEDIMENT BY MICROSCOPY HIGH POWER FIELD NONE SEEN/[HP F] 07/16 Specimen Type: URINE No comment entered. Ordering Provider: TERRENCE CHAUHAN Report Released Date/Time: Jul 17, 2023 04:23 PM Reporting Lab: [facility] [address] Performing Lab: [facility] [address] [place] [facility] URINALYS IS HEMOGLOBIN [PRESENCE] IN URINE BY TEST STRIP NEGATIVE 07/16 Specimen Type: URINE No comment entered. Ordering Provider: TERRENCE CHAUHAN Report Released Date/Time: Jul 17, 2023 04:23 PM Reporting Lab: [facility] [address] Performing Lab: [facility] [address] [place] [facility] URINALYS IS NITRITE [PRESENCE] IN URINE BY TEST STRIP NEGATIVE 07/16 Specimen Type: URINE No comment entered. Ordering Provider: TERRENCE CHAUHAN Report Released Date/Time: Jul 17, 2023 04:23 PM Reporting Lab: [facility] [address] Performing Lab: [facility] [address] [place] [facility] URINALYS IS LEUKOCYTE ESTERASE [PRESENCE] IN URINE BY TEST STRIP NEGATIVE 07/16 Specimen Type: URINE No comment entered. Ordering Provider: TERRENCE CHAUHAN Report Released Date/Time: Jul 17, 2023 04:23 PM Reporting Lab: [facility] [address] Performing Lab: [facility] [address] [place] [facility] HEMOGLOB IN A1C [...] August 07, 2022 02:21 PM Reporting Lab: [facility] [address] Performing Lab: [facility] [address] [place] [facility] BASIC METABOLI C PANEL+MG CREATININE [MASS/VOLU ME] IN SERUM OR PLASMA 1.3 mg/dL 0.7 - 1.2 07/16 H Specimen Type: PLASMA No comment entered. Ordering Provider: TERRENCE CHAUHAN Report Released Date/Time: August 07, 2022 02:21 PM Reporting Lab: [facility] [address] Performing Lab: [facility] [address] [place] [facility] BASIC METABOLI C PANEL+MG UREA NITROGEN [MASS/VOLU ME] IN SERUM OR PLASMA 15 mg/dL 8 - 26 07/16 Specimen Type: PLASMA No comment entered. Ordering Provider: TERRENCE CHAUHAN Report Released Date/Time: August 07, 2022 02:21 PM Reporting Lab: [facility] [address] Performing Lab: [facility] [address] [place] [facility] BASIC METABOLI C PANEL+MG GLUCOSE [MASS/VOLU ME] IN SERUM OR PLASMA 84 mg/dL 70 - 100 07/16 Specimen Type: PLASMA No comment entered. Ordering Provider: TERRENCE CHAUHAN Report Released Date/Time: August 07, 2022 02:21 PM Reporting Lab: [facility] [address] Performing Lab: [facility] [address] [place] [facility] BASIC METABOLI C PANEL+MG SODIUM [MOLES/VOL UME] IN SERUM OR PLASMA 137 mmol/L 136 - 145 07/16 Specimen Type: PLASMA No comment entered. Ordering Provider: TERRENCE CHAUHAN Report Released Date/Time: August 07, 2022 02:21 PM Reporting Lab: [facility] [address] Performing Lab: [facility] [address] [place] [facility] BASIC METABOLI C PANEL+MG POTASSIUM [MOLES/VOL UME] IN SERUM OR PLASMA 4.6 mmol/L 3.5 - 5.1 07/16 Specimen Type: PLASMA No comment entered. Ordering Provider: TERRENCE CHAUHAN Report Released Date/Time: August 07, 2022 02:21 PM Reporting Lab: [facility] [address] Performing Lab: [facility] [address] [place] [facility] BASIC METABOLI C PANEL+MG CHLORIDE [MOLES/VOL UME] IN SERUM OR PLASMA 105 mmol/L 98 - 107 07/16 Specimen Type: PLASMA No comment entered. Ordering Provider: TERRENCE CHAUHAN Report Released Date/Time: August 07, 2022 02:21 PM Reporting Lab: [facility] [address] Performing Lab: [facility] [address] [place] [facility] BASIC METABOLI C PANEL+MG CARBON DIOXIDE, TOTAL [MOLES/VOL UME] IN SERUM OR PLASMA 24 mmol/L 22 - 29 07/16 Specimen Type: PLASMA No comment entered. Ordering Provider: TERRENCE CHAUHAN Report Released Date/Time: August 07, 2022 02:21 PM Reporting Lab: [facility] [address] Performing Lab: [facility] [address] [place] [facility] BASIC METABOLI C PANEL+MG CALCIUM [MASS/VOLU ME] IN SERUM OR PLASMA 8.9 mg/dL 8.4 - 10.2 07/16 Specimen Type: PLASMA No comment entered. Ordering Provider: TERRENCE CHAUHAN Report Released Date/Time: August 07, 2022 02:21 PM Reporting Lab: [facility] [address] Performing Lab: [facility] [address] [place] [facility] BASIC METABOLI C PANEL+MG MAGNESIUM [MASS/VOLU ME] IN SERUM OR PLASMA 2.1 mg/dL 1.6 - 2.6 07/16 Specimen Type: PLASMA No comment entered. Ordering Provider: TERRENCE CHAUHAN Report Released Date/Time: August 07, 2022 02:21 PM Reporting Lab: [facility] [address] Performing Lab: [facility] [address] [place] [facility] BASIC METABOLI C PANEL+MG ANION GAP IN SERUM OR PLASMA 8 mmol/L 5 - 15 07/16 Specimen Type: PLASMA No comment entered. Ordering Provider: TERRENCE CHAUHAN Report Released Date/Time: August 07, 2022 02:21 PM Reporting Lab: [facility] [address] Performing Lab: [facility] [address] [place] [facility] BASIC METABOLI C PANEL+MG GLOMERULAR FILTRATION RATE/1.73 SQ M.PREDICTE D [VOLUME RATE/AREA] IN SERUM, PLASMA OR BLOOD BY CREATININE -BASED FORMULA (CKD-EPI 2020) 56 60 07/16 L Specimen Type: PLASMA No comment entered. Ordering Provider: TERRENCE CHAUHAN Report Released Date/Time: August 07, 2022 02:21 PM Reporting Lab: [facility] [address] Performing Lab: [facility] [address] [place] [facility] LIVER FUNCTION TESTS BILIRUBIN. TOTAL [MASS/VOLU ME] IN SERUM OR PLASMA 0.8 mg/dL 0.2 - 1.2 07/16 Specimen Type: PLASMA No comment entered. Ordering Provider: TERRENCE CHAUHAN Report Released Date/Time: August 07, 2022 02:21 PM Reporting Lab: [facility] [address] Performing Lab: [facility] [address] [place] [facility] LIVER FUNCTION TESTS ALKALINE PHOSPHATAS E [ENZYMATIC ACTIVITY/V OLUME] IN SERUM OR PLASMA 52 U/L 40 - 150 07/16 Specimen Type: PLASMA No comment entered. Ordering Provider: TERRENCE CHAUHAN Report Released Date/Time: August 07, 2022 02:21 PM Reporting Lab: [facility] [address] Performing Lab: [facility] [address] [place] [facility] LIVER FUNCTION TESTS ALANINE AMINOTRANS FERASE [ENZYMATIC ACTIVITY/V OLUME] IN SERUM OR PLASMA 20 U/L <55 - 55 07/16 Specimen Type: PLASMA No comment entered. Ordering Provider: TERRENCE CHAUHAN Report Released Date/Time: August 07, 2022 02:21 PM Reporting Lab: [facility] [address] Performing Lab: [facility] [address] [place] [facility] LIVER FUNCTION TESTS ASPARTATE AMINOTRANS FERASE [ENZYMATIC ACTIVITY/V OLUME] IN SERUM OR PLASMA 19 U/L <34 - 34 07/16 Specimen Type: PLASMA No comment entered. Ordering Provider: TERRENCE CHAUHAN Report Released Date/Time: August 07, 2022 02:21 PM Reporting Lab: [facility] [address] Performing Lab: [facility] [address] [place] [facility] LIVER FUNCTION TESTS GAMMA GLUTAMYL TRANSFERAS E [ENZYMATIC ACTIVITY/V OLUME] IN SERUM OR PLASMA 38 U/L <64 - 64 07/16 Specimen Type: PLASMA No comment entered. Ordering Provider: TERRENCE CHAUHAN Report Released Date/Time: August 07, 2022 02:21 PM Reporting Lab: [facility] [address] Performing Lab: [facility] [address] [place] [facility] CBC LEUKOCYTES [#/VOLUME] IN BLOOD BY AUTOMATED COUNT 8.72 10*3/uL 4.0 - 11.0 07/16 Specimen Type: BLOOD No comment entered. Ordering Provider: TERRENCE CHAUHAN Report Released Date/Time: August 07, 2022 02:21 PM Reporting Lab: [facility] [address] Performing Lab: [facility] [address] [place] [facility] CBC ERYTHROCYT ES [#/VOLUME] IN BLOOD BY AUTOMATED COUNT 4.11 10*6/uL 4.6 - 6.2 07/16 L Specimen Type: BLOOD No comment entered. Ordering Provider: TERRENCE CHAUHAN Report Released Date/Time: August 07, 2022 02:21 PM Reporting Lab: [facility] [address] Performing Lab: [facility] [address] [place] [facility] CBC HEMOGLOBIN [MASS/VOLU ME] IN BLOOD 13.4 g/dL 13.5 - 17.9 07/16 L Specimen Type: BLOOD No comment entered. Ordering Provider: TERRENCE CHAUHAN Report Released Date/Time: August 07, 2022 02:21 PM Reporting Lab: [facility] [address] Performing Lab: [facility] [address] [place] [facility] CBC HEMATOCRIT [VOLUME FRACTION] OF BLOOD BY AUTOMATED COUNT 39.7 41 - 54 07/16 L Specimen Type: BLOOD No comment entered. Ordering Provider: TERRENCE CHAUHAN Report Released Date/Time: August 07, 2022 02:21 PM Reporting Lab: [facility] [address] Performing Lab: [facility] [address] [place] [facility] CBC MCV [ENTITIC VOLUME] BY AUTOMATED COUNT 96.6 fL 80 - 100 07/16 Specimen Type: BLOOD No comment entered. Ordering Provider: TERRENCE CHAUHAN Report Released Date/Time: August 07, 2022 02:21 PM Reporting Lab: [facility] [address] Performing Lab: [facility] [address] [place] [facility] CBC MCH [ENTITIC MASS] BY AUTOMATED COUNT 32.6 pg 27 - 33 07/16 Specimen Type: BLOOD No comment entered. Ordering Provider: TERRENCE CHAUHAN Report Released Date/Time: August 07, 2022 02:21 PM Reporting Lab: [facility] [address] Performing Lab: [facility] [address] [place] [facility] CBC MCHC [MASS/VOLU ME] BY AUTOMATED COUNT 33.8 g/dL 32.0 - 37.5 07/16 Specimen Type: BLOOD No comment entered. Ordering Provider: TERRENCE CHAUHAN Report Released Date/Time: August 07, 2022 02:21 PM Reporting Lab: [facility] [address] Performing Lab: [facility] [address] [place] [facility] CBC PLATELETS [#/VOLUME] IN BLOOD BY AUTOMATED COUNT 159 10*3/uL 150 - 400 07/16 Specimen Type: BLOOD No comment entered. Ordering Provider: TERRENCE CHAUHAN Report Released Date/Time: August 07, 2022 02:21 PM Reporting Lab: [facility] [address] Performing Lab: [facility] [address] [place] [facility] CBC PLATELET MEAN VOLUME [ENTITIC VOLUME] IN BLOOD BY AUTOMATED COUNT 9.6 fL 7.4 - 10.4 07/16 Specimen Type: BLOOD No comment entered. Ordering Provider: TERRENCE CHAUHAN Report Released Date/Time: August 07, 2022 02:21 PM Reporting Lab: [facility] [id number] Performing Lab: [facility] [address] [place] [facility] CBC ERYTHROCYT E DISTRIBUTI ON WIDTH [RATIO] BY AUTOMATED COUNT 14.1 11.5 - 14.5 07/16 Specimen Type: BLOOD No comment entered. Ordering Provider: TERRENCE CHAUHAN Report Released Date/Time: August 07, 2022 02:21 PM Reporting Lab: [facility] [id number] Performing Lab: [facility] [address] [place] [facility] HOSPITAL PSA PROSTATE SPECIFIC AG [MASS/VOLU ME] IN SERUM OR PLASMA 3.84 ng/mL <4.00 - 4.00 07/16 Specimen Type: SERUM No comment entered. Ordering Provider: TERRENCE CHAUHAN Report Released Date/Time: August 07, 2022 02:21 PM Reporting Lab: [facility] [address] Performing Lab: [facility] [address] [place] [facility] CREATINI NE(INCLU SATHYA EGFR) CREATININE [MASS/VOLU ME] IN SERUM OR PLASMA 1.2 mg/dL 0.7 - 1.2 04/16 Specimen Type: PLASMA No comment entered. Ordering Provider: HUYEN HYLTON Report Released Date/Time: Mar 07, 2023 02:00 PM Reporting Lab: [facility] [address] Performing Lab: [facility] [address] [place] [facility] CREATINI NE(INCLU SATHYA EGFR) GLOMERULAR FILTRATION RATE/1.73 SQ M.PREDICTE D [VOLUME RATE/AREA] IN SERUM, PLASMA OR BLOOD BY CREATININE -BASED FORMULA (CKD-EPI 2020) 62 60 04/16 Specimen Type: PLASMA No comment entered. Ordering Provider: HUYEN HYLTON S Report Released Date/Time: Mar 07, 2023 02:00 PM Reporting Lab: [address] Performing Lab: [place] [id number] [facility] CBC LEUKOCYTES [#/VOLUME] IN BLOOD BY AUTOMATED COUNT 8.06 10*3/uL 4.0 - 11.0 04/16 Specimen Type: BLOOD No comment entered. Ordering Provider: HUYEN HYLTON S Report Released Date/Time: Mar 07, 2023 02:00 PM Reporting Lab: [facility] [address] Performing Lab: [place] [address] [facility] CBC ERYTHROCYT ES [#/VOLUME] IN BLOOD BY AUTOMATED COUNT 4.03 10*6/uL 4.6 - 6.2 04/16 L Specimen Type: BLOOD No comment entered. Ordering Provider: HUYEN HYLTON S Report Released Date/Time: Mar 07, 2023 02:00 PM Reporting Lab: [facility] [address] Performing Lab: [facility] [address] [place] [facility] CBC HEMOGLOBIN [MASS/VOLU ME] IN BLOOD 13.1 g/dL 13.5 - 17.9 04/16 L Specimen Type: BLOOD No comment entered. Ordering Provider: HUYEN HYLTON S Report Released Date/Time: Mar 07, 2023 02:00 PM Reporting Lab: [facility] [address] Performing Lab: [facility] [address] [facility] CBC HEMATOCRIT [VOLUME FRACTION] OF BLOOD BY AUTOMATED COUNT 38.9 41 - 54 04/16 L Specimen Type: BLOOD No comment entered. Ordering Provider: HUYEN HYLTON S Report Released Date/Time: Mar 07, 2023 02:00 PM Reporting Lab: [facility] [address] Performing Lab: [facility] [address] [place] [facility] CBC MCV [ENTITIC VOLUME] BY AUTOMATED COUNT 96.5 fL 80 - 100 04/16 Specimen Type: BLOOD No comment entered. Ordering Provider: HUYEN HYLTON Report Released Date/Time: Mar 07, 2023 02:00 PM Reporting Lab: [facility] [address] Performing Lab: [place] [address] [place] [facility] CBC MCH [ENTITIC MASS] BY AUTOMATED COUNT 32.5 pg 27 - 33 04/16 Specimen Type: BLOOD No comment entered. Ordering Provider: HUYEN HYLTON Report Released Date/Time: Mar 07, 2023 02:00 PM Reporting Lab: [place] [address] Performing Lab: [place] [address] [place] [facility] CBC MCHC [MASS/VOLU ME] BY AUTOMATED COUNT 33.7 g/dL 32.0 - 37.5 04/16 Specimen Type: BLOOD No comment entered. Ordering Provider: HUYEN HYLTON Report Released Date/Time: Mar 07, 2023 02:00 PM Reporting Lab: [place] [phone] Performing Lab: [place] [phone] [place] [facility] CBC PLATELETS [#/VOLUME] IN BLOOD BY AUTOMATED COUNT 157 10*3/uL 150 - 400 04/16 Specimen Type: BLOOD No comment entered. Ordering Provider: HUYEN HYLTON Report Released Date/Time: Mar 07, 2023 02:00 PM Reporting Lab: [facility] [address] Performing Lab: [facility] [address] [place] [facility] CBC PLATELET MEAN VOLUME [ENTITIC VOLUME] IN BLOOD BY AUTOMATED COUNT 9.7 fL 7.4 - 10.4 04/16 Specimen Type: BLOOD No comment entered. Ordering Provider: HUYEN HYLTON Report Released Date/Time: Mar 07, 2023 02:00 PM Reporting Lab: [facility] [address] Performing Lab: [facility] [address] [place] [facility] CBC ERYTHROCYT E DISTRIBUTI ON WIDTH [RATIO] BY AUTOMATED COUNT 14.5 11.5 - 14.5 04/16 Specimen Type: BLOOD No comment entered. Ordering Provider: HUYEN HYLTON Report Released Date/Time: Mar 07, 2023 02:00 PM Reporting Lab: [facility] [address] Performing Lab: [facility] [address] [facility] AST/SGOT ASPARTATE AMINOTRANS FERASE [ENZYMATIC ACTIVITY/V OLUME] IN SERUM OR PLASMA 22 U/L <34 - 34 04/16 Specimen Type: PLASMA No comment entered. Ordering Provider: HUYEN HYLTON Report Released Date/Time: Mar 07, 2023 02:00 PM Reporting Lab: [facility] [address] Performing Lab: [facility] [address] [facility] ALT/SGPT ALANINE AMINOTRANS FERASE [ENZYMATIC ACTIVITY/V OLUME] IN SERUM OR PLASMA 19 U/L <55 - 55 04/16 Specimen Type: PLASMA No comment entered. Ordering Provider: HUYEN HYLTON Report Released Date/Time: Mar 07, 2023 02:00 PM Reporting Lab: [facility] [address] Performing Lab: [facility] [address] [facility] Vital Signs Combined list of inpatient [...] ADM Date DC Date Status Disposition Source [facility] Outpatient Encounter [id number] 04/24 NATALY DENNIS [facility] EMERGENCY DEPT VISIT [place] [id number] Diagnos is: ICD-10- CM Z76.0 Encount er for issue of repeat prescri ption<b r/> ALYSSIAAICHA WYATT CLIFTON Perez 05/09 [facility] Outpatient Encounter [id number] 05/09 [facility] [place] [facility] Outpatient Encounter [id number] 06/12 [place] [facility] [place] [facility] Outpatient Encounter [id number] 07/15 [place] [facility] [place] [facility] OFFICE O/P EST MOD 30-39 MIN [id number] Diagnos is: ICD-10- CM Z00.01 Encount er for general adult medical exam w abnorma l finding s
DANETTE LIN LY E 08/07 [facility] [place] [facility] Outpatient Encounter [id number] 08/07 [place] [facility] [place] [facility] Outpatient Encounter [id number] OLESYA ROGERS 08/12 [place] [facility] [place] [facility] Outpatient Encounter [id number] OLESYA ROGERS 08/12 [place] [facility] [place] [facility] Outpatient Encounter [id number] Ana CHAUHAN 09/12 [place] [facility] [place] [facility] Outpatient Encounter [id number] 11/06 [place] [facility] [place] [facility] Outpatient Encounter [id number] 12/08 [place] [facility] [place] [facility] Outpatient Encounter [id number] 12/12 [place] [facility] [facility] [place] [facility] Outpatient Encounter [id number] 01/17 [place] [facility] [place] [facility] Outpatient Encounter [id number] 02/19 [facility] [place] [facility] Outpatient Encounter [id number] 02/24 [facility] [place] [facility] Outpatient Encounter [id number] 03/07 [facility] QNHP OL DIG ASSMT&MGMT 5-10 [id number] Diagnos is: ICD-10- CM Z79.01 penitentiary (curren t) use of anticoa gulants
ELLEN GARCIA 05/29 [facility] [place] [facility] OFFICE O/P EST MOD 30 MIN [id number] Diagnos is: ICD-10- CM Z00.01 Encount er for general adult medical exam w abnorma l finding s
Ana CHAUHAN 07/16 [facility] [place] [facility] Outpatient Encounter [id number] 07/17 [facility] Social History Combined list of available smoking, tobacco, and other social history from [employer] and [facility] Affairs facilities. Social History Type Response Date Comment Sourc e Tobacco smoking status NHIS [place]-TOBACCO FORMER USER 07/17/2023 [facility] History of tobacco use WA-TOBACCO QUIT 1 TO < 5 YRS 07/17/2023 [facility] History of tobacco use WA-TOBACCO QUIT 1 TO < 5 YRS 08/07/2022 [facility] History of tobacco use WA-TOBACCO FORMER USER 10/16/2020 [facility] History of tobacco use WA-TOBACCO USE MED NO 03/29/2019 [facility] History of tobacco use VA-TOBACCO USER E VERY DAY 02/17/2018 [facility] History of tobacco use CURRENT TOBACCO USER 02/12/2017 [facility] History of tobacco use CURRENT TOBACCO USER 04/25/2015 [facility] History of tobacco use CURRENT TOBACCO USER 04/21/2014 [facility] History of tobacco use CURRENT TOBACCO USER 04/20/2013 [facility] History of tobacco use CURRENT TOBACCO USER 03/20/2012 [facility] History of tobacco use CURRENT TOBACCO USER 02/06/2011 [facility] History of tobacco use CURRENT TOBACCO USER 01/02/2010 [facility]
--- OUTSIDE RECORDS SUMMARY | 2023-10-02 15:24 | XMS_ITS | Data Portability ---
Author Organization [place] [facility], [employer] Address [address] [facility] [place] [address] Assessment Encounter Date Assessment Date Assessment LastModified [...] user Active 2015 Tobacco user; Original Code: 018579822 Origi nal Codesystem: SNOMED CT Classificati on: Medical Confirm ation Status: Probable Not Available [facility]17 Onychomycosis of toenails Active 2015 Onychomycosis of toenails; Original Code: 5295338917 Orig inal Codesystem: SNOMED CT Classificati on: Medical Confirm ation Status: Confirmed Not Available [facility] 3 09:10:17 Heart disease Active 2021 Heart disease; Original Code: 48392319 Origin al Codesystem: SNOMED CT Classificati on: Medical Confirm ation Status: Confirmed Not Available [facility] 3 09:10:17 Corns and callus Active 2015 Corns and callus; Original Code: 623553370 Origi nal Codesystem: SNOMED CT Classificati on: Medical Confirm ation Status: Confirmed Not Available [facility] 3 09:10:17 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; Original Code: 9213973143 Orig inal Codesystem: SNOMED CT Classificati on: Medical Confirm ation Status: Confirmed Not Available [facility] 3 09:10:17 Foot pain Active 2015 Foot pain; Original Code: 749369072 Origi nal Codesystem: SNOMED CT Classificati on: Medical Confirm ation Status: Confirmed Not Available [facility] 3 09:10:17 Acquired hallux valgus Active 2015 Acquired hallux valgus; Original Code: 495822469 Origi nal Codesystem: SNOMED CT Classificati on: Medical Confirm ation Status: Confirmed Not Available [facility] 3 09:10:17 Acquired hallux malleus Active 2015 Acquired hallux malleus; Original Code: 11853324 Origin al Codesystem: SNOMED CT Classificati on: Medical Confirm ation Status: Confirmed Not Available [facility] 3 09:10:17 Atrial fibrillation Active 2015 Atrial fibrillation; Original Code: 31205132 Origin al Codesystem: SNOMED CT Classificati on: Medical Confirm ation Status: Confirmed Not Available [facility] 3 09:10:17 Hypertensive disorder Active 2015 Hypertensive disorder; Original Code: 6669929719 Orig inal Codesystem: SNOMED CT Classificati on: Medical Confirm ation Status: Confirmed Not Available [facility] 3 09:10:17 Notes:H/O: anticoagulant the rapy Original Code: 886321968 Original Codesystem: SNOMED CT Classification: Medical Confirmation Status: Confirmed Problem Notes None recorded. Procedures Surgical History Date Name Laterality Status Provider Name and Address Organization Details Recorded Time 10/24/[address] Hong Andres DPM [address] [place] [address], [phone], [facility] 10/23/2022 11:44:57 07/25/[address] Pitts completed Too Andres DPM [address] [place] [address], [phone], [facility] 07/24/2022 10:35:10 04/24/[address] Hong Andres DPM [address] [place] [address], [phone], [facility] 04/24/2022 [...] Updated DateTime 04/24/2022 190.5 cm 25 kg/m2 62877.47 g Mamta Corbett [facility] 04/24/2022 10:32:58 Social History None recorded. Functional Status None recorded. Mental Status None recorded. Family History Nothing Reported. Medical History No medical history recorded. Past Encounters Encounter ID Performer Location Encounter Start Date Encounter Closed Date Diagnosis/Indication Diagnosis SNOMED-CT Code [id number] Too Andres DPM [facility] [address] [place] [address] 04/24/2022 10:31:04 04/24/2022 13:46:36 Onychomycosis 931694021 Peripheral vascular disease [id number] Too Andres DPM [facility] [address] [place] [address] 07/24/2022 10:14:25 07/25/2022 09:45:42 Onychomycosis 698954284 Peripheral vascular disease [id number] Too Andres DPM [facility] [address] [place] [address] 10/23/2022 10:13:43 10/24/2022 09:44:58 Onychomycosis 207240671 Peripheral vascular disease 380544202 Health Concerns Section Related Observation LastModified by Organization Detai ls LastModified Time None Recorded Concern Status LastModified by Organization Details LastModified Time None Recorded Advance Directives Directive None Recorded Payers Encounter Date Sequence Insurance Name Policy Number Policy Kevin Covered Member ID Kevin Member ID Guarantor Name 04/24/2022 1 [place] [id number] Bola Zurita [id number] Bola Zurita 07/24/2022 1 [place] [id number] Bola Zurita [id number] Bola Zurita 10/23/2022 1 [place]) [id number] Bola J Parminder [id number] Bola Zurita Notes Date Note Type Note Provider Name and Address Organization Details Recorded Time 04/24/2022 text/html HPI Notes: Pawel salmeron is a 77 year old male established patient who presents with the chief complaint. Presents today for evaluation of problematic toenails and feet in general. They relate chronic thickening and deformity to their toenails that has not responded to self-trimming, topical ylza-wyd-iaoknoj anti-fungal therapy, foot soaks, and other similar conservative treatments. Nails are painful with catching on shoegear and socks. Denies any recent foot injury or infection. Claudication symptoms: No Burning symptoms: No Paresthesia: Subjective numbness to the left lower extremity consistent with his previous surgical procedures performed through Vascular surgery in the [facility] Patient presents for further evaluation and treatment options. Too Andres DPM [address] [place], [address], [facility] 04/24/2022 11:14:44 07/24/2022 text/html HPI Notes: Pawel salmreon is a 77 year old male established patient who presents with the chief complaint. Presents today for evaluation of problematic toenails and feet in general. They relate chronic thickening and deformity to their toenails that has not responded to self-trimming, topical musj-shg-oyarkso anti-fungal therapy, foot soaks, and other similar conservative treatments. Nails are painful with catching on shoegear and socks. Denies any recent foot injury or infection. Claudication symptoms: No Burning symptoms: No Paresthesia: Subjective numbness to the left lower extremity consistent with his previous surgical procedures performed through Vascular surgery in [facility] Patient presents for further evaluation and treatment options. Too Andres DPM [address] [place], [address], [facility] 07/24/2022 10:35:54 10/23/2022 text/html HPI Notes: Pawel salmeron is a 77 year old male established patient who presents with the chief complaint. Presents today for evaluation of problematic toenails and feet in general. They relate chronic thickening and deformity to their toenails that has not responded to self-trimming, topical raab-ozb-vumkyyy anti-fungal therapy, foot soaks, and other similar conservative treatments. Nails are painful with catching on shoegear and socks. Denies any recent foot injury or infection. Claudication symptoms: No Burning symptoms: No Paresthesia: Subjective numbness to the left lower extremity consistent with his previous surgical procedures performed through [facility] surgery in [facility] Patient presents for further evaluation and treatment options. Too Andres DPM [address] [place], [address], [facility] 10/23/2022 11:45:19
== END 2023-10-02 15:22 | disposition home or self-care (01) ==
LOC: WOUND 15:21
PROVIDERS: PCP Family Medicine; Visit Provider Nurse Practitioner Family
DX: L72.0 Epidermal cyst (principal)
CPT/HCPCS: G0463

== ENCOUNTER 2023-10-07 13:40 | Outpatient (CLI) | payer MEDICARE, BC, SELFPAY ==
--- OUTSIDE RECORDS SUMMARY | 2023-10-07 13:41 | XMS_ITS | Clinical Summary ---
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 LLE angiogram 2. 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 [phone] Unknown, Doctor 08/04/2023 8:35 AM CDT Office Visit [facility] [address] [place] [address] Jena Pascual PA Follow Up (Boil) 08/04/2023 Travel 08/01/2023 8:35 AM CDT Office Visit [facility] [address] [place] [address] Jena Pascual PA Derm Problem 08/01/2023 Travel [...] T Respiratory Rate 18 03/17/2023 3:35 PM TREASURY DIRECTOR Oxygen Saturation 96% 08/04/2023 8:35 AM CDT Inhaled Oxygen Concentration - - Weight 90.7 kg (200 lb) 08/04/2023 8:35 AM CDT Height 190.5 cm (6' 3) 03/17/2023 2:07 PM TREASURY DIRECTOR Body Mass Index 25 03/17/2023 2:07 PM TREASURY DIRECTOR Plan of Treatment Health Maintenance Due Date [...] back ANTI HCV Routine 05/16/2021 3:20 PM TREASURY DIRECTOR Need for hepatitis C screening test CT CHEST WO Routine 08/29/2010 4:53 PM CDT Pulmonary nodules from Last 3 Months or Most Recently Relevant to Health Maintenance Results * LAB TRACKING EVENT (08/05/2023 2:01 PM CDT) Other (Other) Client Collect / Unknown 08/05/2023 2:01 PM CDT 08/05/2023 9:37 PM CDT Doctor Unknown LAB BILL ONLY [facility] [address] [place] [address], * PATH TISSUE EXAM (08/05/2023 2:01 PM CDT) Case Report Pathology Report ?Case: [id number] ? Authorizing Provider: ??Unknown, Doctor ?Collected: ? 08/05/2023 1401 ? Ordering Location: ? [facility] ?Received: ?08/06/2023 1013 ? Pathologist: ? Jose Rinaldi MD ? Specimen: ?Back ? 08/07/2023 4:47 PM CDT [facility] Final Diagnosis A) SKIN, BACK, CYST, EXCISION: 1. Epidermoid cyst 2. Negative for dysplasia or malignancy 08/07/2023 4:47 PM CDT [facility] Clinical Information back cyst 08/07/2023 4:47 PM CDT [facility] Gross Description A) Received in formalin, labeled with the patient's name and date of , is a 1.5 x 1.1 x 0.3 cm aggregate of pale-garcia cyst wall fragments admixed with garcia-white soft, friable cyst contents. ??The specimen is filtered and submitted entirely in 1 cassette. [facility] 08/06/2023 08/07/2023 4:47 PM CDT [facility] Microscopic Description The final diagnosis is based on microscopic examination of appropriate sections of all specimens. 08/07/2023 4:47 PM CDT [facility] Additional Information Interpreted at [facility] - [address] [place] [address] [address] 08/07/2023 4:47 PM CDT [facility] Other (Back) 08/05/2023 2:01 PM CDT 08/06/2023 10:13 AM CDT Doctor Unknown PATHOLOGY/CYTOLOGY [facility] [address] [place] [address], * AEROBIC BACTERIAL CULTURE, STAIN (08/01/2023 9:30 AM CDT) CULTURE No Growth. 08/03/2023 3:00 PM CDT [facility] GRAM STAIN 4+ RBCs 08/03/2023 3:00 PM CDT [facility] GRAM STAIN 1+ PMNs 08/03/2023 3:00 PM CDT [facility] GRAM STAIN No Epithelial cells 08/03/2023 3:00 PM CDT [facility] GRAM STAIN 4+ Gram Positive Cocci 08/03/2023 3:00 PM CDT [facility] GRAM STAIN 3+ Gram Negative Bacilli 08/03/2023 3:00 PM CDT [facility] Other (Other) Non-Blood / Unknown 08/01/2023 9:30 AM CDT 08/01/2023 9:31 AM CDT Jena RICHARDSON MICROBIOLOGY [facility] [address] [place] [address], * ANTI HCV (05/16/2021 3:20 PM TREASURY DIRECTOR) HEPATITIS C ANTIBODY Non-React edelmira Non-React edelmira 05/17/2021 1:21 AM TREASURY DIRECTOR [facility] Comment:Antibodies to HCV no t detected; does not exclude the possibility of exposure to HCV. Blood BLOOD SPECIMEN / Unknown Venipuncture / Unknown 05/16/2021 3:20 PM TREASURY DIRECTOR 05/16/2021 3:25 PM TREASURY DIRECTOR Zak Garcia MD SEND OUTS Performing Organization Address City/Va Hospital/ZIP Co de Phone Number [facility] [address] [place] [address], * CT CHEST WO CONTRAST (08/29/2010 4:53 [...] Comments Code Status Discussion: Discussed Care Teams Germ Drier Relationship Specialty Start Date End Date Klever Monte MD [address] [place] [address] PCP - General Family Practice 06/12/22
--- OUTSIDE RECORDS SUMMARY | 2023-10-07 13:42 | XMS_ITS | Continuity of Care Document ---
Author Name [facility] Organization [facility] Care Team Providers Care Mechanical Engineering Specialist Name Role Phone [facility] Unavailable Unavailable Problems Combined list of problems from Department of Defense and Veterans Affairs facilities. It does not include entries that were removed or entered in error. Problem Status Onset Date Problem Type Date of Resolution Comments Source CVD - Cerebrovascular Disease ([facility] 07601177) Active 03/19/20 20 Condition May 01, 2020 Entered By: OYAV CHAUHAN Comment: 03/19/20: L MCA CVA, Admit ANW. Cardio-embol ic d/t Warfarin DC [facility] CAD - Coronary Artery Disease ([facility] [id number]) Active 01/27/20 20 Condition Mar 13, 2020 Entered By: YOAV CHAUHAN Comment: 01/27/20: LAD and Dx stented w/SATHYA at [facility]. Plavix +ASA thru 01/26/21 [facility] Peripheral arterial insufficiency Active 01/21/20 20 Condition Mar 13, 2020 Entered By: YOAV CHAUHAN Comment: 01/21/20: L femoral Art occlusion per [facility]-->Fem -Tibial bypass planned [facility] Allergic rhinitis (SNOMED CT 57052936) Active Condition [facility] Atrial fibrillation (SNOMED CT 54344719) Active Condition Apr 26, 2015 Entered By: YOAV CHAUHAN Comment: Warfarin through Miryam Rodriguez [facility] Co-Managed Care Active Condition Dec 25, 2017 Entered By: YOAV CHAUHAN Comment: Dr Garcia, Michael Thaxton, F: [phone] , [facility] COPD - Chronic Obstructive Pulmonary Disease ([facility] 10013300) Active Condition Dec 25, 2017 Entered By: YOAV CHAUHAN Comment: Mometasone & Albuterol MDI's [facility] [place] of toe Active Condition Sep 08, 2019 Entered By: YOAV CHAUHAN Comment: R middle toe [facility] Current smoker Active Condition Apr 082015 Entered By: YOAV CHAUHAN Comment: Cigars, not cigarettes [facility] Essential hypertension (SNOMED CT 03225416) Active Condition [facility] Glucose intolerance Active Condition [facility] Nocturia due to benign prostatic hypertrophy Active Condition [facility] Health Maintenance (ICD-9-CM V65.9) Inactive Condition 04/26/2015 [facility] Diagnosis: ICD-10-CM Z00.01 Encounter for general adult medical exam w abnormal findings [facility] Diagnosis: 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 Medication Details Route Status Patient Instructions Prescription Expires Prescription Number Last Dispense Date Ordering Provider Order Date Order Qty Source ALBUTEROL 90MCG/ACTUA T (CFC-F) INHL,ORAL,8 .5GM DOSE COUNTER ALBUTERO L 90MCG/AC TUAT (CFC-F) INHL,ORA L,8.5GM DOSE COUNTER Active INHALE 2 PUFFS BY INHALATI ON FOUR TIMES A DAY NEEDED FOR SHORTNES S OF BREATH FOR SHORTNES S OF BREATH Jul 17, 2023 2 Jul 17, 2024 [id number] Sep 24, 2023 AFRICA CHAUHAN [facility] RESPIR ATORY (INHAL ATION) ACTIVE 07/17/2024 [id number] AFRICA CHAUHAN 2023 2 [facility] ALBUTEROL 90MCG/ACTUA T (CFC-F) INHL,ORAL,8 .5GM DOSE COUNTER ALBUTERO L 90MCG/AC TUAT (CFC-F) INHL,ORA L,8.5GM DOSE COUNTER Disconti nued INHALE 2 PUFFS BY INHALATI ON FOUR TIMES A DAY NEEDED FOR SHORTNES S OF BREATH FOR SHORTNES S OF BREATH August 07, 2022 2 August 08, 2023 [id number] August 07, 2022 AFRICA CHAUHAN [facility] RESPIR ATORY (INHAL ATION) DISCONT INUED 08/08/2023 [id number] AFRICA CHAUHAN 2022 2 [facility] APIXABAN 5MG TAB APIXABAN 5MG TAB Active TAKE ONE TABLET BY MOUTH EVERY 12 HOURS TO PREVENT BLOOD CLOTS AND STROKE (ELIQUIS ) May 29, 2023 180 May 29, 2024 [id number] C September 04, 2023 ZOFIA GARCIA [facility] ORAL ACTIVE 05/29/2024 [id number] MARIANO GARCIA 2023 180 [facility] APIXABAN 5MG TAB APIXABAN 5MG TAB Disconti nued TAKE ONE TABLET BY MOUTH EVERY 12 HOURS TO PREVENT BLOOD CLOTS AND STROKE (ELIQUIS ) May 08, 2022 180 May 09, 2023 [id number] B Mar 20, 2023 ZOFIA GARCIA [facility] ORAL DISCONT INUED 05/09/2023 [id number] MARIANO GARCIA 2022 180 [facility] CHOLECALCIF JONNA 25MCG (1,000UNIT) TAB CHOLECAL CIFEROL 25MCG (1,000UN IT) TAB Non-VA TAKE FIVE TABLETS BY MOUTH QOD Feb 12, 2017 [facility] Document ed by: AFRICA CHAUHAN Document ed at: [facility] ORAL ACTIVE AFRICA CHAUHAN 2016 [facility] FLUOCINONID E 0.1% CREAM,TOP FLUOCINO NIDE 0.1% CREAM,TO P Active APPLY A THIN LAYER TOPICALL Y TWICE A DAY NEEDED FOR RASH FOR RASH Dec 12, 2022 60 Dec 13, 2023 [id number] Dec 13, 2022 AFRICA CHAUHAN [facility] TOPICA L ACTIVE 12/13/2023 [id number] AFRICA CHAUHAN 2022 60 [place] [facility] FLUTICASONE 250MCG/SALM ETEROL 50MCG INHL,ORAL,D ISKUS,60 FLUTICAS ONE 250MCG/S ALMETERO L 50MCG INHL,ORA L,DISKUS ,60 Active INHALE 1 PUFF BY INHALATI ON TWICE A DAY FOR COPD FOR COPD Jul 17, 2023 3 Jul 17, 2024 [id number] Jul 18, 2023 [facility] (INHAL ATION) ACTIVE 07/17/2024 [id number] AFRICA CHAUHAN 2023 3 [place] [facility] FLUTICASONE 250MCG/SALM ETEROL 50MCG INHL,ORAL,D ISKUS,60 FLUTICAS ONE 250MCG/S ALMETERO L 50MCG INHL,ORA L,DISKUS ,60 Disconti nued INHALE 1 PUFF BY INHALATI ON TWICE A DAY FOR COPD THIS REPLACES YOUR MOMETASO NE FOR COPD August 07, 2022 3 August 08, 2023 [id number] Apr 24, 2023 AFRICA CHAUHANO [facility] RESPIR ATORY (INHAL ATION) DISCONT INUED 08/08/2023 [id number] AFRICA CHAUHAN 2022 3 [facility] FUROSEMIDE 20MG TAB FUROSEMI DE 20MG TAB Active TAKE ONE TABLET BY MOUTH THREE TIMES A WEEK FOR HEART FAILURE FOR HEART FAILURE Feb 24, 2023 39 Feb 25, 2024 [id number] Feb 28, 2023 SASHA DONAHUE [facility] ORAL ACTIVE 02/25/2024 [id number] Hong DONAHUE A 2022 39 [facility] FUROSEMIDE 20MG TAB FUROSEMI DE 20MG TAB Disconti nued TAKE ONE TABLET BY MOUTH EVERY OTHER DAY FOR HEART FAILURE FOR HEART FAILURE August 12, 2022 45 August 13, 2023 [id number] Nov 08, 2022 AFRICA CHAUHANAPO L[facility] ORAL DISCONT INUED (EDIT) 08/13/2023 [id number] 3 AFRICA CHAUHAN 2022 45 [place] [facility] FUROSEMIDE 20MG TAB FUROSEMI DE 20MG TAB Disconti nued TAKE ONE TABLET BY MOUTH EVERY MORNING FOR HEART FAILURE FOR HEART FAILURE August 07, 2022 90 August 08, 2023 [id number] August 07, 2022 AFRICA CHAUHAN [facility] ORAL DISCONT INUED 08/08/2023 [id number] AFRICA CHAUHAN 2022 90 [place] [facility] HYDROCHLORO THIAZIDE 12.5MG TAB HYDROCHL OROTHIAZ LAURA 12.5MG TAB Disconti nued TAKE ONE TABLET BY MOUTH EVERY DAY FOR BLOOD PRESSURE FOR BLOOD PRESSURE August 07, 2022 90 August 08, 2023 [id number] August 07, 2022 [facility] ORAL DISCONT INUED 08/08/2023 [id number] AFRICA CHAUHAN 2022 90 [place] [facility] METOPROLOL SUCCINATE 50MG TAB,SA METOPROL OL SUCCINAT E 50MG TAB,SA Disconti nued TAKE THREE TABLETS BY MOUTH EVERY DAY FOR BLOOD PRESSURE FOR BLOOD PRESSURE August 07, 2022 270 August 08, 2023 [id number] Sep 23, 2022 [facility]FRICA [facility]AUHAN [facility] ORAL DISCONT INUED 08/08/2023 [id number] AFRICA CHAUHAN 2022 270 [facility] METOPROLOL TARTRATE 100MG TAB METOPROL OL TARTRATE 100MG TAB Active TAKE ONE TABLET BY MOUTH TWICE A DAY FOR BLOOD PRESSURE FOR BLOOD PRESSURE Dec 12, 2022 180 Dec 13, 2023 [id number] Sep 24, 2023 AFRICA CHAUHAN [facility] ORAL ACTIVE 12/13/2023 [id number] 4 AFRICA CHAUHAN 2022 180 [facility] NIFEDIPINE (EQV-CC) 60MG TAB,SA NIFEDIPI NE (EQV-CC) 60MG TAB,SA Disconti nued TAKE ONE TABLET BY MOUTH EVERY DAY FOR BLOOD PRESSURE FOR BLOOD PRESSURE August 07, 2022 90 August 08, 2023 [id number] Feb 20, 2023 AFRICA CHAUHAN [facility] ORAL DISCONT INUED BY PROVIDE R 08/08/2023 [id number] AFRICA CHAUHAN 2022 90 [place] [facility] NIFEDIPINE (EQV-CC) 60MG TAB,SA NIFEDIPI NE (EQV-CC) 60MG TAB,SA Disconti nued TAKE ONE TABLET BY MOUTH EVERY DAY FOR BLOOD PRESSURE FOR BLOOD PRESSURE Jun 13, 2022 90 Sep 11, 2022 [id number] August 19, 2022 AFRICA CHAUHAN [facility] ORAL DISCONT INUED 09/11/2022 [id number] AFRICA CHAUHAN 2022 90 [facility] NIFEDIPINE (EQV-CC) 90MG TAB,SA NIFEDIPI NE (EQV-CC) 90MG TAB,SA Active TAKE ONE TABLET BY MOUTH EVERY DAY FOR BLOOD PRESSURE FOR BLOOD PRESSURE Jul 17, 2023 90 Jul 17, 2024 [id number] Sep 19, 2023 AFRICA CHAUHAN [facility] ORAL ACTIVE 07/17/2024 [id number] 4 AFRICA CHAUHAN 2023 90 [facility] NIFEDIPINE (EQV-CC) 90MG TAB,SA NIFEDIPI NE (EQV-CC) 90MG TAB,SA Disconti nued TAKE ONE TABLET BY MOUTH EVERY DAY FOR BLOOD PRESSURE INCREASE D DOSE PER CO-MANAG ED CARE INCREASE D DOSE PER CO-MANAG ED CARE FOR BLOOD PRESSURE Dec 12, 2022 90 Dec 13, 2023 [id number] Jul 01, 2023 AFRICA CHAUHAN [facility] ORAL DISCONT INUED 12/13/2023 [id number] AFRICA CHAUHAN 2022 90 [facility] POTASSIUM CHLORIDE 10MEQ TAB,SA POTASSIU M CHLORIDE 10MEQ TAB,SA Active TAKE ONE TABLET BY MOUTH THREE TIMES A WEEK FOR POTASSIU M SUPPLEME NT TAKE WITH FUROSEMI DE FOR POTASSIU M SUPPLEME NT Feb 24, 2023 39 Feb 25, 2024 [id number] Feb 28, 2023 [facility] ORAL ACTIVE 02/25/2024 [id number] Hong DONAHUE MUNIRAJALYN Parra 2022 39 [facility] POTASSIUM CHLORIDE 10MEQ TAB,SA POTASSIU M CHLORIDE 10MEQ TAB,SA Disconti nued TAKE ONE TABLET BY MOUTH EVERY OTHER DAY FOR POTASSIU M SUPPLEME NT FOR POTASSIU M SUPPLEME NT August 12, 2022 45 August 13, 2023 [id number] Nov 08, 2022 AFRICA CHAUHAN [facility] ORAL DISCONT INUED (EDIT) 08/13/2023 [id number] 3 AFRICA CHAUHAN 2022 45 [facility] POTASSIUM CHLORIDE 10MEQ TAB,SA POTASSIU M CHLORIDE 10MEQ TAB,SA Disconti nued TAKE ONE TABLET BY MOUTH EVERY DAY FOR CONGESTI VE HEART FAILURE FOR POTASSIU M SUPPLEME NT August 07, 2022 90 August 08, 2023 [id number] August 07, 2022 AFRICA CHAUHAN [facility] ORAL DISCONT INUED 08/08/2023 [id number] AFRICA CHAUHAN 2022 90 [facility] POTASSIUM CHLORIDE 10MEQ TAB,SA POTASSIU M CHLORIDE 10MEQ TAB,SA Disconti nued TAKE ONE TABLET BY MOUTH EVERY DAY FOR CONGESTI VE HEART FAILURE Nov 15, 2021 90 Nov 16, 2022 [id number] August 15, 2022 AFRICA CHAUHAN [facility] ORAL DISCONT INUED 11/16/2022 [id number] AFRICA CHAUHAN 2021 90 [facility] ROSUVASTATI N CA 20MG TAB ROSUVAST ATIN CA 20MG TAB Active TAKE ONE TABLET BY MOUTH AT BEDTIME FOR CORONARY ARTERY DISEASE FOR CORONARY ARTERY DISEASE Jul 17, 2023 90 Jul 17, 2024 [id number] Sep 24, 2023 AFRICA CHAUHAN [facility] ORAL ACTIVE 07/17/2024 [id number] AFRICA CHAUHAN 2023 90 [facility] ROSUVASTATI N CA 20MG TAB ROSUVAST ATIN CA 20MG TAB Disconti nued TAKE ONE TABLET BY MOUTH AT BEDTIME FOR CORONARY ARTERY DISEASE FOR CORONARY ARTERY DISEASE August 07, 2022 90 August 08, 2023 [id number] Jun 09, 2023 AFRICA CHAUHAN [facility] ORAL DISCONT INUED 08/08/2023 [id number] AFRICA CHAUHAN 2022 90 [facility] TAMSULOSIN HCL 0.4MG CAP TAMSULOS IN HCL 0.4MG CAP Active TAKE ONE CAPSULE BY MOUTH EVERY EVENING FOR PROSTATE FOR PROSTATE Jul 17, 2023Jul 17, 2024 [id number] Oct 05, 2023 AFRICA CHAUHAN [facility] ORAL ACTIVE 07/17/2024 [id number] 4 AFRICA CHAUHAN 2023 30 [facility] Allergies, Adverse Reactions, Alerts Combined list of allergies from Department of Defense and Veterans Affairs facilities. It does not include entries that were removed or entered in error. Substance Category Reaction Severity Reaction type Status Date Reported Comments Source LISINOPRIL Propensity to adverse reactions to drug (finding) Cough active 0 [facility] Immunizations Combined list of available immunizations from the Department of Defense and Veterans Affairs facilities. Immunization Series Date Given Administered By Site Reaction Lot Number CVX Code Drug Fish Icer Status Comments Source COVID-19 (Tuee), MRNA, LNP-S, BIVALENT, PF, 30 MCG/0.3 ML DOSE 2022 300 complet ed [facility] COVID-19 (PFIZER), MRNA, LNP-S, PF, 30 MCG/0.3 ML DOSE, JAMES-SUCROSE (AGES 12+ YEARS) 2021 217 complet ed [facility] COVID-19 (Tuee), MRNA, LNP-S, PF, 30 MCG/0.3 ML DOSE 2020 208 complet ed [facility] ZOSTER RECOMBINANT 2 2020 187 complet ed [facility] INFLUENZA VACCINE, QUADRIVALENT, ADJUVANTED 2020 205 complet ed [facility] INFLUENZA, UNSPECIFIED FORMULATION 2020 88 complet ed [facility] ZOSTER RECOMBINANT 1 2020 187 complet [facility] COVID-19 (PFIZER), MRNA, LNP-S, PF, 30 MCG/0.3 ML DOSE 2 2020 208 complet ed [facility] COVID-19 (PFIZER), MRNA, LNP-S, PF, 30 MCG/0.3 ML DOSE 1 2020 208 complet ed [facility] INFLUENZA VACCINE, QUADRIVALENT, ADJUVANTED 2019 205 complet ed [facility] INFLUENZA, TRIVALENT, ADJUVANTED 2018 168 complet ed [facility] INFLUENZA, SEASONAL, INJECTABLE 2018 141 complet ed [facility] INFLUENZA, SEASONAL, INJECTABLE 2017 141 complet ed [facility] INFLUENZA, TRIVALENT, ADJUVANTED 2017 168 complet ed [facility] INFLUENZA, HIGH DOSE SEASONAL 2016 135 complet ed [facility] PNEUMOCOCCAL POLYSACCHARID E PPV23 2016 33 complet ed [employer] , [id number], 06/03/18 [facility] TD (ADULT), 2 LF TETANUS TOXOID, PRESERVATIVE FREE, ADSORBED 2016 09 complet ed [employer] [id number], 12/19/18 [facility] INFLUENZA, HIGH DOSE SEASONAL 2016 135 complet ed [facility] PNEUMOCOCCAL POLYSACCHARID E PPV23 2016 33 complet ed [facility] INFLUENZA, HIGH DOSE SEASONAL 2015 135 complet ed [facility] PNEUMOCOCCAL CONJUGATE PCV 13 2015 133 complet ed [employer] [facility] PNEUMOCOCCAL CONJUGATE PCV 13 2014 133 complet ed [facility] INFLUENZA, UNSPECIFIED FORMULATION 2013 88 complet ed [facility] INFLUENZA, UNSPECIFIED FORMULATION 2013 88 complet ed [facility] INFLUENZA, UNSPECIFIED FORMULATION 2011 88 complet ed [facility] INFLUENZA, UNSPECIFIED FORMULATION 2010 88 complet ed [facility] PNEUMOCOCCAL, UNSPECIFIED FORMULATION 2009 109 complet ed [employer],093 02, 011 [facility] TDAP 2009 115 complet ed [facility] ZOSTER LIVE 2008 121 complet ed [facility] TDAP 2007 115 complet ed private [facility] ZOSTER LIVE 2006 121 complet ed [facility] Results Combined list of recent chemistry, hematology [...] Jul 17, 2023 04:23 PM Reporting Lab: [facility] [address] Performing Lab: [facility] [address] [facility] URINALYS IS SPECIFIC GRAVITY OF URINE 1.006 1.003 - 1.035 07/16 Specimen Type: URINE No comment entered. Ordering Provider: TERRENCE CHAUHAN Report Released Date/Time: Jul 17, 2023 04:23 PM Reporting Lab: [facility] [phone] Performing Lab: [facility] [address] [facility] URINALYS IS BILIRUBIN. TOTAL [PRESENCE] IN URINE BY TEST STRIP NEGATIVE 07/16 Specimen Type: URINE No comment entered. Ordering Provider: TERRENCE CHAUHAN Report Released Date/Time: Jul 17, 2023 04:23 PM Reporting Lab: [facility] [address] Performing Lab: [facility] [phone] [facility] URINALYS IS KETONES [MASS/VOLU ME] IN URINE BY TEST STRIP NEGATIVE 07/16 Specimen Type: URINE No comment entered. Ordering Provider: TERRENCE CHAUHAN Report Released Date/Time: Jul 17, 2023 04:23 PM Reporting Lab: [facility] [phone] Performing Lab: [facility] [address] [place] [facility] URINALYS IS GLUCOSE [MASS/VOLU ME] IN URINE BY TEST STRIP NEGATIVE mg/dL 07/16 Specimen Type: URINE No comment entered. Ordering Provider: TERRENCE CHAUHAN Report Released Date/Time: Jul 17, 2023 04:23 PM Reporting Lab: [facility] [phone] Performing Lab: [facility] [phone] [place] [facility] URINALYS IS PROTEIN [MASS/VOLU ME] IN URINE BY TEST STRIP NEGATIVE mg/dL 07/16 Specimen Type: URINE No comment entered. Ordering Provider: TERRENCE CHAUHAN Report Released Date/Time: Jul 17, 2023 04:23 PM Reporting Lab: [facility] [address] Performing Lab: [facility] [address] [place] [facility] URINALYS IS PH OF URINE BY TEST STRIP 7.0 5.0 - 8.0 07/16 Specimen Type: URINE No comment entered. Ordering Provider: TERRENCE CHAUHAN Report Released Date/Time: Jul 17, 2023 04:23 PM Reporting Lab: [facility] [phone] Performing Lab: [facility] [phone] [facility] URINALYS IS LEUKOCYTES [#/AREA] IN URINE SEDIMENT BY MICROSCOPY HIGH POWER FIELD <1/[HPF] 0 - 7 07/16 Specimen Type: URINE No comment entered. Ordering Provider: TERRENCE CHAUHAN Report Released Date/Time: Jul 17, 2023 04:23 PM Reporting Lab: [facility] [phone] Performing Lab: [facility] [address] [place] [facility] URINALYS IS BACTERIA [PRESENCE] IN URINE SEDIMENT BY LIGHT MICROSCOPY NONE SEEN 07/16 Specimen Type: URINE No comment entered. Ordering Provider: TERRENCE CHAUHAN Report Released Date/Time: Jul 17, 2023 04:23 PM Reporting Lab: [facility] [address] Performing Lab: [facility] [address] [place] [facility] URINALYS IS ERYTHROCYT ES [#/AREA] IN URINE SEDIMENT BY MICROSCOPY HIGH POWER FIELD <1/[HPF] 0 - 3 07/16 Specimen Type: URINE No comment entered. Ordering Provider: TERRENCE CHAUHAN Report Released Date/Time: Jul 17, 2023 04:23 PM Reporting Lab: [facility] [address] Performing Lab: [facility] [address] [place] [facility] URINALYS IS APPEARANCE OF URINE CLEAR 07/16 Specimen Type: URINE No comment entered. Ordering Provider: TERRENCE CHAUHAN Report Released Date/Time: Jul 17, 2023 04:23 PM Reporting Lab: [facility] [address] Performing Lab: [facility] [address] [place] [facility] URINALYS IS EPITHELIAL CELLS.SQUA MOUS [#/AREA] IN URINE SEDIMENT BY MICROSCOPY HIGH POWER FIELD NONE SEEN/[HP F] 07/16 Specimen Type: URINE No comment entered. Ordering Provider: TERRENCE CHUAHAN Report Released Date/Time: Jul 17, 2023 04:23 PM Reporting Lab: [facility] [phone] Performing Lab: [facility] [phone] [place] [facility] URINALYS IS HEMOGLOBIN [PRESENCE] IN URINE BY TEST STRIP NEGATIVE 07/16 Specimen Type: URINE No comment entered. Ordering Provider: TERRENCE CHAUHAN Report Released Date/Time: Jul 17, 2023 04:23 PM Reporting Lab: [facility] [address] Performing Lab: [facility] [address] [place] [facility] URINALYS IS NITRITE [PRESENCE] IN URINE BY TEST STRIP NEGATIVE 07/16 Specimen Type: URINE No comment entered. Ordering Provider: TERRENCE CHAUHAN Report Released Date/Time: Jul 17, 2023 04:23 PM Reporting Lab: [facility] [address] Performing Lab: [facility] [address] [facility] URINALYS IS LEUKOCYTE ESTERASE [PRESENCE] IN URINE BY TEST STRIP NEGATIVE 07/16 Specimen Type: URINE No comment entered. Ordering Provider: TERRENCE CHAUHAN Report Released Date/Time: Jul 17, 2023 04:23 PM Reporting Lab: [facility] [address] Performing Lab: [facility] [address] [facility] HEMOGLOB IN A1C HEMOGLOBIN A1C/HEMOGL [...] August 07, 2022 02:21 PM Reporting Lab: [facility] [address] Performing Lab: [facility] [address] [facility] CBC LEUKOCYTES [#/VOLUME] IN BLOOD BY AUTOMATED COUNT 8.72 10*3/uL 4.0 - 11.0 07/16 Specimen Type: BLOOD No comment entered. Ordering Provider: TERRENCE CHAUHAN Report Released Date/Time: August 07, 2022 02:21 PM Reporting Lab: [facility] [address] Performing Lab: [facility] [address] [facility] CBC ERYTHROCYT ES [#/VOLUME] IN BLOOD BY AUTOMATED COUNT 4.11 10*6/uL 4.6 - 6.2 07/16 L Specimen Type: BLOOD No comment entered. Ordering Provider: TERRENCE CHAUHAN Report Released Date/Time: August 07, 2022 02:21 PM Reporting Lab: [facility] [address] Performing Lab: [facility] [address] [place] [facility] CBC HEMOGLOBIN [MASS/VOLU ME] IN BLOOD 13.4 g/dL 13.5 - 17.9 07/16 L Specimen Type: BLOOD No comment entered. Ordering Provider: TERRENCE CHAUHAN Report Released Date/Time: August 07, 2022 02:21 PM Reporting Lab: [facility] [address] Performing Lab: [facility] [address] [place] [facility] CBC HEMATOCRIT [VOLUME FRACTION] OF BLOOD BY AUTOMATED COUNT 39.7 41 - 54 07/16 L Specimen Type: BLOOD No comment entered. Ordering Provider: TERRENCE CHAUHAN Report Released Date/Time: August 07, 2022 02:21 PM Reporting Lab: [facility] [address] Performing Lab: [facility] [address] [place] [facility] CBC MCV [ENTITIC VOLUME] BY AUTOMATED COUNT 96.6 fL 80 - 100 07/16 Specimen Type: BLOOD No comment entered. Ordering Provider: TERRENCE CHAUHAN Report Released Date/Time: August 07, 2022 02:21 PM Reporting Lab: [facility] [address] Performing Lab: [facility] [address] [place] [facility] CBC MCH [ENTITIC MASS] BY AUTOMATED COUNT 32.6 pg 27 - 33 07/16 Specimen Type: BLOOD No comment entered. Ordering Provider: TERRENCE CHAUHAN Report Released Date/Time: August 07, 2022 02:21 PM Reporting Lab: [facility] [phone] Performing Lab: [facility] [phone] [place] [facility] CBC MCHC [MASS/VOLU ME] BY AUTOMATED COUNT 33.8 g/dL 32.0 - 37.5 07/16 Specimen Type: BLOOD No comment entered. Ordering Provider: TERRENCE CHAUHAN Report Released Date/Time: August 07, 2022 02:21 PM Reporting Lab: [facility] [id number] Performing Lab: [facility] [phone] [place] [facility] CBC PLATELETS [#/VOLUME] IN BLOOD BY AUTOMATED COUNT 159 10*3/uL 150 - 400 07/16 Specimen Type: BLOOD No comment entered. Ordering Provider: TERRENCE CHAUHAN Report Released Date/Time: August 07, 2022 02:21 PM Reporting Lab: [facility] [phone] Performing Lab: [facility] [phone] [facility] CBC PLATELET MEAN VOLUME [ENTITIC VOLUME] IN BLOOD BY AUTOMATED COUNT 9.6 fL 7.4 - 10.4 07/16 Specimen Type: BLOOD No comment entered. Ordering Provider: TERRENCE CHAUHAN Report Released Date/Time: August 07, 2022 02:21 PM Reporting Lab: [facility] [phone] Performing Lab: [facility] [phone] [facility] CBC ERYTHROCYT E DISTRIBUTI ON WIDTH [RATIO] BY AUTOMATED COUNT 14.1 11.5 - 14.5 07/16 Specimen Type: BLOOD No comment entered. Ordering Provider: TERRENCE CHAUHAN Report Released Date/Time: August 07, 2022 02:21 PM Reporting Lab: [facility] [phone] Performing Lab: [facility] [phone] [facility] BASIC METABOLI C PANEL+MG CREATININE [MASS/VOLU ME] IN SERUM OR PLASMA 1.3 mg/dL 0.7 - 1.2 07/16 H Specimen Type: PLASMA No comment entered. Ordering Provider: TERRENCE CHAUHAN Report Released Date/Time: August 07, 2022 02:21 PM Reporting Lab: [facility] [address] Performing Lab: [facility] [address] [place] [facility] BASIC METABOLI C PANEL+MG UREA NITROGEN [MASS/VOLU ME] IN SERUM OR PLASMA 15 mg/dL 8 - 26 07/16 Specimen Type: PLASMA No comment entered. Ordering Provider: TERRENCE CHAUHAN Report Released Date/Time: August 07, 2022 02:21 PM Reporting Lab: [facility] [address] Performing Lab: [facility] [address] [place] [facility] BASIC METABOLI C PANEL+MG GLUCOSE [MASS/VOLU ME] IN SERUM OR PLASMA 84 mg/dL 70 - 100 07/16 Specimen Type: PLASMA No comment entered. Ordering Provider: TERRENCE CHAUHAN Report Released Date/Time: August 07, 2022 02:21 PM Reporting Lab: [facility] [address] Performing Lab: [facility] [address] [place] [facility] BASIC METABOLI C PANEL+MG SODIUM [MOLES/VOL UME] IN SERUM OR PLASMA 137 mmol/L 136 - 145 07/16 Specimen Type: PLASMA No comment entered. Ordering Provider: TERRENCE CHAUHAN Report Released Date/Time: August 07, 2022 02:21 PM Reporting Lab: [facility] [address] Performing Lab: [facility] [address] [place] [facility] BASIC METABOLI C PANEL+MG POTASSIUM [MOLES/VOL UME] IN SERUM OR PLASMA 4.6 mmol/L 3.5 - 5.1 07/16 Specimen Type: PLASMA No comment entered. Ordering Provider: TERRENCE CHAUHAN Report Released Date/Time: August 07, 2022 02:21 PM Reporting Lab: [facility] [address] Performing Lab: [facility] [address] [place] [facility] BASIC METABOLI C PANEL+MG CHLORIDE [MOLES/VOL UME] IN SERUM OR PLASMA 105 mmol/L 98 - 107 07/16 Specimen Type: PLASMA No comment entered. Ordering Provider: TERRENCE CHAUHAN Report Released Date/Time: August 07, 2022 02:21 PM Reporting Lab: [facility] [address] Performing Lab: [facility] [address] [place] [facility] BASIC METABOLI C PANEL+MG CARBON DIOXIDE, TOTAL [MOLES/VOL UME] IN SERUM OR PLASMA 24 mmol/L 22 - 29 07/16 Specimen Type: PLASMA No comment entered. Ordering Provider: TERRENCE CHAUHAN Report Released Date/Time: August 07, 2022 02:21 PM Reporting Lab: [facility] [address] Performing Lab: [facility] [address] [place] [facility] BASIC METABOLI C PANEL+MG CALCIUM [MASS/VOLU ME] IN SERUM OR PLASMA 8.9 mg/dL 8.4 - 10.2 07/16 Specimen Type: PLASMA No comment entered. Ordering Provider: TERRENCE CHAUHAN Report Released Date/Time: August 07, 2022 02:21 PM Reporting Lab: [facility] [address] Performing Lab: [facility] [address] [place] [facility] BASIC METABOLI C PANEL+MG MAGNESIUM [MASS/VOLU ME] IN SERUM OR PLASMA 2.1 mg/dL 1.6 - 2.6 07/16 Specimen Type: PLASMA No comment entered. Ordering Provider: TERRENCE HCAUHAN Report Released Date/Time: August 07, 2022 02:21 PM Reporting Lab: [facility] [address] Performing Lab: [facility] [address] [place] [facility] BASIC METABOLI C PANEL+MG ANION GAP IN SERUM OR PLASMA 8 mmol/L 5 - 15 07/16 Specimen Type: PLASMA No comment entered. Ordering Provider: TERRENCE CHAUHAN Report Released Date/Time: August 07, 2022 02:21 PM Reporting Lab: [facility] [address] Performing Lab: [facility] [address] [place] [facility] BASIC METABOLI C PANEL+MG GLOMERULAR FILTRATION RATE/1.73 SQ M.PREDICTE D [VOLUME RATE/AREA] IN SERUM, PLASMA OR BLOOD BY CREATININE -BASED FORMULA (CKD-EPI 2020) 56 60 07/16 L Specimen Type: PLASMA No comment entered. Ordering Provider: TERRENCE CHAUHAN Report Released Date/Time: August 07, 2022 02:21 PM Reporting Lab: [facility] [address] Performing Lab: [facility] [address] [place] [facility] LIVER FUNCTION TESTS BILIRUBIN. TOTAL [MASS/VOLU ME] IN SERUM OR PLASMA 0.8 mg/dL 0.2 - 1.2 07/16 Specimen Type: PLASMA No comment entered. Ordering Provider: TERRENCE CHAUHAN Report Released Date/Time: August 07, 2022 02:21 PM Reporting Lab: [facility] [address] Performing Lab: [facility] [address] [place] [facility] LIVER FUNCTION TESTS ALKALINE PHOSPHATAS E [ENZYMATIC ACTIVITY/V OLUME] IN SERUM OR PLASMA 52 U/L 40 - 150 07/16 Specimen Type: PLASMA No comment entered. Ordering Provider: TERRENCE CHAUHAN Report Released Date/Time: August 07, 2022 02:21 PM Reporting Lab: [facility] [address] Performing Lab: [facility] [address] [place] [facility] LIVER FUNCTION TESTS ALANINE AMINOTRANS FERASE [ENZYMATIC ACTIVITY/V OLUME] IN SERUM OR PLASMA 20 U/L <55 - 55 07/16 Specimen Type: PLASMA No comment entered. Ordering Provider: TERRENCE CHAUHAN Report Released Date/Time: August 07, 2022 02:21 PM Reporting Lab: [facility] [address] Performing Lab: [facility] [address] [place] [facility] LIVER FUNCTION TESTS ASPARTATE AMINOTRANS FERASE [ENZYMATIC ACTIVITY/V OLUME] IN SERUM OR PLASMA 19 U/L <34 - 34 07/16 Specimen Type: PLASMA No comment entered. Ordering Provider: TERRENCE CHAUHAN Report Released Date/Time: August 07, 2022 02:21 PM Reporting Lab: [facility] [address] Performing Lab: [facility] [address] [place] [facility] LIVER FUNCTION TESTS GAMMA GLUTAMYL TRANSFERAS E [ENZYMATIC ACTIVITY/V OLUME] IN SERUM OR PLASMA 38 U/L <64 - 64 07/16 Specimen Type: PLASMA No comment entered. Ordering Provider: TERRENCE CHAUHAN Report Released Date/Time: August 07, 2022 02:21 PM Reporting Lab: [place] [id number] Performing Lab: [place] [address] [place] [facility] PSA PROSTATE SPECIFIC AG [MASS/VOLU ME] IN SERUM OR PLASMA 3.84 ng/mL <4.00 - 4.00 07/16 Specimen Type: SERUM No comment entered. Ordering Provider: TERRENCE CHAUHAN Report Released Date/Time: August 07, 2022 02:21 PM Reporting Lab: [place] [address] Performing Lab: [place] [address] [place] [facility] CREATINI NE(INCLU SATHYA EGFR) CREATININE [MASS/VOLU ME] IN SERUM OR PLASMA 1.2 mg/dL 0.7 - 1.2 04/16 Specimen Type: PLASMA No comment entered. Ordering Provider: HUYEN HYLTON Report Released Date/Time: Mar 07, 2023 02:00 PM Reporting Lab: [place] [address] Performing Lab: [place] [address] [place] [facility] CREATINI NE(INCLU SATHYA EGFR) GLOMERULAR FILTRATION RATE/1.73 SQ M.PREDICTE D [VOLUME RATE/AREA] IN SERUM, PLASMA OR BLOOD BY CREATININE -BASED FORMULA (CKD-EPI 2020) 62 60 04/16 Specimen Type: PLASMA No comment entered. Ordering Provider: HUYEN HYLTON Report Released Date/Time: Mar 07, 2023 02:00 PM Reporting Lab: [address] Performing Lab: [address] [facility] CBC LEUKOCYTES [#/VOLUME] IN BLOOD BY AUTOMATED COUNT 8.06 10*3/uL 4.0 - 11.0 04/16 Specimen Type: BLOOD No comment entered. Ordering Provider: HUYEN HYLTON Report Released Date/Time: Mar 07, 2023 02:00 PM Reporting Lab: [place] [address] Performing Lab: [place] [address] [place] [facility] CBC ERYTHROCYT ES [#/VOLUME] IN BLOOD BY AUTOMATED COUNT 4.03 10*6/uL 4.6 - 6.2 04/16 L Specimen Type: BLOOD No comment entered. Ordering Provider: HUYEN HYLTON Report Released Date/Time: Mar 07, 2023 02:00 PM Reporting Lab: [place] [address] Performing Lab: [place] [address] [place] [facility] CBC HEMOGLOBIN [MASS/VOLU ME] IN BLOOD 13.1 g/dL 13.5 - 17.9 04/16 L Specimen Type: BLOOD No comment entered. Ordering Provider: HUYEN HYLTON Report Released Date/Time: Mar 07, 2023 02:00 PM Reporting Lab: [place] [address] Performing Lab: [place] [address] [place] [facility] CBC HEMATOCRIT [VOLUME FRACTION] OF BLOOD BY AUTOMATED COUNT 38.9 41 - 54 04/16 L Specimen Type: BLOOD No comment entered. Ordering Provider: HUYEN HYLTON Report Released Date/Time: Mar 07, 2023 02:00 PM Reporting Lab: [place] [address] Performing Lab: [place] [address] [facility] CBC MCV [ENTITIC VOLUME] BY AUTOMATED COUNT 96.5 fL 80 - 100 04/16 Specimen Type: BLOOD No comment entered. Ordering Provider: HUYEN HYLTON Report Released Date/Time: Mar 07, 2023 02:00 PM Reporting Lab: [place] [address] Performing Lab: [place] [address] [place] [facility] CBC MCH [ENTITIC MASS] BY AUTOMATED COUNT 32.5 pg 27 - 33 04/16 Specimen Type: BLOOD No comment entered. Ordering Provider: HUYEN HYLTON Report Released Date/Time: Mar 07, 2023 02:00 PM Reporting Lab: [facility] [address] Performing Lab: [facility] [address] [place] [facility] CBC MCHC [MASS/VOLU ME] BY AUTOMATED COUNT 33.7 g/dL 32.0 - 37.5 04/16 Specimen Type: BLOOD No comment entered. Ordering Provider: HUYEN HYLTON Report Released Date/Time: Mar 07, 2023 02:00 PM Reporting Lab: [facility] [address] Performing Lab: [facility] [address] [place] [facility] CBC PLATELETS [#/VOLUME] IN BLOOD BY AUTOMATED COUNT 157 10*3/uL 150 - 400 04/16 Specimen Type: BLOOD No comment entered. Ordering Provider: HUYEN HYLTON Report Released Date/Time: Mar 07, 2023 02:00 PM Reporting Lab: [facility] [address] Performing Lab: [facility] [address] [facility] CBC PLATELET MEAN VOLUME [ENTITIC VOLUME] IN BLOOD BY AUTOMATED COUNT 9.7 fL 7.4 - 10.4 04/16 Specimen Type: BLOOD No comment entered. Ordering Provider: HUYEN HYLTON Report Released Date/Time: Mar 07, 2023 02:00 PM Reporting Lab: [facility] [address] Performing Lab: [facility] [address] [facility] CBC ERYTHROCYT E DISTRIBUTI ON WIDTH [RATIO] BY AUTOMATED COUNT 14.5 11.5 - 14.5 04/16 Specimen Type: BLOOD No comment entered. Ordering Provider: HUYEN HYLTON Report Released Date/Time: Mar 07, 2023 02:00 PM Reporting Lab: [facility] [address] Performing Lab: [facility] [address] [place] [facility] AST/SGOT ASPARTATE AMINOTRANS FERASE [ENZYMATIC ACTIVITY/V OLUME] IN SERUM OR PLASMA 22 U/L <34 - 34 04/16 Specimen Type: PLASMA No comment entered. Ordering Provider: HUYEN HYLTON Report Released Date/Time: Mar 07, 2023 02:00 PM Reporting Lab: [facility] [address] Performing Lab: [facility] [address] [place] [facility] ALT/SGPT ALANINE AMINOTRANS FERASE [ENZYMATIC ACTIVITY/V OLUME] IN SERUM OR PLASMA 19 U/L <55 - 55 04/16 Specimen Type: PLASMA No comment entered. Ordering Provider: HUYEN HYLTON Report Released Date/Time: Mar 07, 2023 02:00 PM Reporting Lab: [facility] [address] Performing Lab: [facility] [address] [place] [facility] Vital Signs Combined list of inpatient [...] DC Date Status Disposition Source [place] [facility] Outpatient Encounter [id number] 04/24 [facility] EMERGENCY DEPT VISIT SF MDM [id number] Diagnos is: ICD-10- CM Z76.0 Encount er for issue of repeat prescri ption<b r/> AICHA GALLEGOS 05/09 [facility] Outpatient Encounter [id number] 05/09 [facility] [place] [facility] Outpatient Encounter [id number] 06/12 [place] [facility] [place] [facility] Outpatient Encounter [id number] 07/15 [place] [facility] [place] [facility] OFFICE O/P EST MOD 30-39 MIN [id number] Diagnos is: ICD-10- CM Z00.01 Encount er for general adult medical exam w abnorma l finding s
RILEYDANETTE LY E 08/07 [place] [facility] [place] [facility] Out[place] Encounter [id number] 08/07 [place] [facility] [place] [facility] Outpatient Encounter [id number] OLESYA ROGERS HIA M 08/12 [place] [facility] [place] [facility] Outpatient Encounter [id number] OLESYA ROGERS HIA M 08/12 [place] [facility] [place] [facility] Out[place] Encounter [id number] Ana CHAUHAN 09/12 [place] [facility] [place] [facility] Out[place] Encounter [id number] 11/06 [place] [facility] [place] [facility] Out[place] Encounter [id number] 12/08 [place] [facility] [place] [facility] Outpatient Encounter [id number] 12/12 [place] [facility] [place] [facility] Outpatient Encounter [id number] 01/17 [place] [facility] [place] [facility] Out[place] Encounter [id number] 02/19 [place] [facility] [place] [facility] Outpatient Encounter [id number] 02/24 [place] [facility] [place] [facility] Out[facility] Encounter [id number] 03/07 [facility] [place] [facility] QNHP OL DIG ASSMT&MGMT 5-10 [id number] Diagnos is: ICD-10- CM Z79.01 [employer] (curren t) use of anticoa gulants
ELLEN GARCIA 05/29 [facility] OFFICE O/P EST MOD 30 MIN [id number] Diagnos is: ICD-10- CM Z00.01 Encount er for general adult medical exam w abnorma l finding s
Ana CHAUHAN [place] 07/16 [facility] [place] [facility] Outpatient Encounter [id number] 07/17 [facility] Social History Combined list of available smoking, tobacco, and other social history from [facility] and [facility] Affairs facilities. Social History Type Response Date Comment [facility] e Tobacco smoking status [place]-TOBACCO FORMER USER 07/17/2023 [facility] History of tobacco use ND-TOBACCO QUIT 1 TO < 5 YRS 07/17/2023 [facility] History of tobacco use ND-TOBACCO FORMER USER 08/07/2022 [facility] of [facility] OR [facility]/16/2020 [facility] History of tobacco use ND-TOBACCO USE CO UNSEL NO 03/29/2019 [facility] History of tobacco use ND-TOBACCO USE WI 30 MIN OF WAKEUP 02/17/2018 [facility] History of tobacco use CURRENT TOBACCO USER 02/12/2017 [facility] History of tobacco use CURRENT TOBACCO USER 04/25/2015 [facility] History of tobacco use CURRENT TOBACCO USER 04/21/2014 [facility] History of tobacco use CURRENT TOBACCO USER 04/20/2013 [facility] History of tobacco use CURRENT TOBACCO USER 03/20/2012 [facility] History of tobacco use CURRENT TOBACCO USER 02/06/2011 [facility] History of tobacco use CURRENT TOBACCO USER 01/02/2010 [facility]
--- OUTSIDE RECORDS SUMMARY | 2023-10-07 13:42 | XMS_ITS | Encounter Summary ---
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 [place] [facility] [place] Address [address] [place] [address] Care Team Providers Care Subacute Nurse Name Role Phone AFRICA CHAUHAN Primary Care Provider Unavaila ble Insurance Providers: All historical and current Section [...] Policy Kevin BS [place] [facility] ([facility]) [facility] [id number] Jan 05, 2010 [id number] [employer] ANUSHA DE PAZ PATIENT MEDICARE ([facility]) MEDICARE () PART A Jan 05, 2010 PART A [id number] [phone] ANUSHA DE PAZ PATIENT MEDICARE (WNR) MEDICARE (M) PART B Jan 05, 2010 PART B [id number] [phone] ANUSHA DE PAZ PATIENT MEDICARE (WNR) MEDICARE () PART A Jan 05, 2010 PART A [id number] [facility] ANUSHA DE PAZ PATIENT MEDICARE (WNR) MEDICARE (M) PART A Jan 05, 2010 PART A [id number] ANUSHA DE PAZ PATIENT MEDICARE (WNR) MEDICARE (M) PART B Jan 05, 2010 PART B [id number] [facility] [phone] ANUSHA DE PAZ PATIENT Selected Encounter This [...] Range Comment Jul 17, 2023 04:34 PM [facility] URINALYSIS Specimen Type: URINE No comment entered. Ordering Provider: SARAH CHAUHAN Report Released Date/Time: Jul 17, 2023 04:23 PM Reporting Lab: [facility] [address] Performing Lab: [facility] [address] URINE COLOR COLORLESS SPECIFIC GRAVITY 1.006 1.003-1.035 URINE BILIRUBIN NEGATIVE NEGATIVE URINE KETONES NEGATIVE NEGATIVE URINE GLUCOSE NEGATIVE mg/dL See_Comment URINE PROTEIN NEGATIVE mg/dL See_Comment URINE PH 7.0 5.0-8.0 URINE WBC/HPF <1 /[HPF] 0-7 URINE BACTERIA NONE SEEN URINE RBC/HPF <1 /[HPF] 0-3 APPEARANCE CLEAR SQUAMOUS EPITHELIAL NONE SEEN /[HPF] URINE BLOOD NEGATIVE NEGATIVE URINE NITRITE NEGATIVE NEGATIVE LEUKOCYTE ESTERASE NEGATIVE NEGATIVE Jul 17, 2023 02:17 PM [facility] HEMOGLOBIN A1C Specimen Type: BLOOD Comment: Values [...] 07, 2022 02:21 PM Reporting Lab: [facility] [address] Performing Lab: [facility] [address] HEMOGLOBIN A1C 6.0 4.0-6.0 Jul 17, 2023 02:17 PM [facility] BASIC METABOLIC PANEL+MG Specimen Type: PLASMA No comment entered. Ordering Provider: SARAH CHAUHAN Report Released Date/Time: August 07, 2022 02:21 PM Reporting Lab: [facility] [address] Performing Lab: [facility] [address] CREATININE 1.3 mg/dL H 0.7-1.2 UREA NITROGEN 15 mg/dL 8-26 GLUCOSE 84 mg/dL 70-100 SODIUM 137 mmol/L 136-145 POTASSIUM 4.6 mmol/L 3.5-5.1 CHLORIDE 105 mmol/L 98-107 CO2 24 mmol/L 22-29 CALCIUM 8.9 mg/dL 8.4-10.2 MAGNESIUM 2.1 mg/dL 1.6-2.6 ANION GAP 8 mmol/L 5-15 .CREAT EGFR(CKD-EPI) 56 L >60 Jul 17, 2023 02:17 PM [facility] CBC Specimen Type: BLOOD No comment entered. Ordering Provider: SARAH CHAUHAN Report Released Date/Time: August 07, 2022 02:21 PM Reporting Lab: [facility] [address] Performing Lab: [facility] [address] WBC 8.72 10*3/uL 4.0-11.0 RBC 4.11 10*6/uL L 4.6-6.2 HGB 13.4 g/dL L 13.5-17.9 HCT 39.7 L 41-54 MCV 96.6 fL 80-100 MCH 32.6 pg 27-33 MCHC 33.8 g/dL 32.0-37.5 PLT 159 10*3/uL 150-400 MPV 9.6 fL 7.4-10.4 RDW 14.1 11.5-14.5 Jul 17, 2023 02:17 PM [facility] LIVER FUNCTION TESTS Specimen Type: PLASMA No comment entered. Ordering Provider: SARAH CHAUHAN Report Released Date/Time: August 07, 2022 02:21 PM Reporting Lab: [facility] [address] Performing Lab: [facility] [address] BILIRUBIN, TOTAL 0.8 mg/dL 0.2-1.2 ALKALINE PHOSPHATASE 52 U/L 40-150 ALT/SGPT 20 U/L <55 AST/SGOT 19 U/L <34 GAMMA GTP 38 U/L <64 Jul 17, 2023 02:17 PM [facility] PSA Specimen Type: SERUM No comment entered. Ordering Provider: SARAH CHAUHAN Report Released Date/Time: August 07, 2022 02:21 PM Reporting Lab: [facility] [address] Performing Lab: [facility] [address] PSA 3.84 ng/mL <4.00 Social History: Smoking Status (Most current) [...] Date/Time Current Smoking Status Comment Liam shah Jul 17, 2023 03:00 PM VA-TOBACCO FORMER USER [facility] Tobacco Use History This section includes a history of the smoking, or tobacco-related health factors, that were collected on or before the date of the Encounter. The data comes from the [place] facility where the Encounter took place. 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
--- OUTSIDE RECORDS SUMMARY | 2023-10-07 13:42 | XMS_ITS | Encounter Summary ---
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 Phone AFRICA CHAUHAN Primary Care [...] Kevin's Name Patient's Relationship to Policy Kevin OPHELIA [place] [facility] ([facility] ORGANIZ [id number] Jan 05, 2010 [id number] DEPENDS ON GROUP ANUSHA DE PAZ PATIENT MEDICARE (WNR) MEDICARE (M) PART A Jan 05, 2010 PART A [id number] [phone] ANUSHA DE PAZ PATIENT MEDICARE (WNR) MEDICARE (M) PART B Jan 05, 2010 PART B [id number] [phone] ANUSHA DE PAZ PATIENT MEDICARE (WNR) MEDICARE (M) PART A Jan 05, 2010 PART A [id number] [facility] ANUSHA DE PAZ PATIENT MEDICARE (WNR) MEDICARE (M) PART A Jan 05, 2010 PART A [id number] [phone] ANUSHA DE PAZ PATIENT MEDICARE (WNR) MEDICARE (M) PART B Jan 05, 2010 PART B [id number] [facility] [phone] ANUSHA DE PAZ PATIENT Selected Encounter This section includes the information on record at [place] for the Encounter. Date/Time Encounter Type Encounter Description Reason Pro vider Source Nov 06, 2022 11:12 AM Outpatient Encounter COMMUNITY CARE CONSULT IHE Encounter Template Text not used by DE Plan of Treatment: Future Appointments (+ 6 months) and Future Tests (+/- 45 days) The Plan of Treatment section includes future care activities for the patient from all DE treatmentfacilities. This section includes future appointments and future orders which are active, pending or scheduled. Future Appointments This section includes appointments that were scheduled to occur 6 months from the date of the Encounter, up to a maximum of 20 appointments. The data comes from all DE treatment facilities. Appointment Date/Time Appointment Type Appointme nt Facility Name Apr 16, 2023 12:00 PM AMBULATORY - NONE [facility] Social History: Smoking Status (Most current) and Tobacco Use (All prior to encounter date) This section includes the most current, and the historical, smoking and tobacco- related health factors from the DE facility where the Encounter took place. Current Smoking Status This section includes the most current smoking, or tobacco-related health factor, from the DE facility where the Encounter took place. Date/Time Current Smoking Status Comment Facil ity August 07, 2022 01:30 PM DE-TOBACCO QUIT 1 TO < 5 YRS [facility] Tobacco Use History This section includes a history of the smoking, or tobacco-related health factors, that were collected on or before the date of the Encounter. The data comes from the DE facility where the Encounter took place. 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 [facility] Mar 29, 2019 10:59 AM VA-TOBACCO USE MED NO [facility] Mar 29, 2019 10:59 AM VA-TOBACCO USE WI 30 MIN OF WAKE UP [facility] Mar 29, 2019 10:59 AM VA-TOBACCO USER EVERY DAY [facility] Feb 17, 2018 03:39 PM VA-TOBACCO USE 30 YEARS OR MORE [facility] Feb 17, 2018 03:39 PM VA-TOBACCO USE ADVICE [facility] Feb 17, 2018 03:39 PM 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 [facility] Feb 17, 2018 03:39 PM VA-TOBACCO USE MED NO [facility] Feb 17, 2018 03:39 PM VA-TOBACCO USE WI 30 MIN OF WAKE UP [facility] Feb 17, 2018 03:39 PM VA-TOBACCO USER EVERY DAY [facility] Feb 12, 2017 12:38 PM CURRENT TOBACCO USER [facility] Apr 25, 2015 07:50 AM CURRENT TOBACCO USER [facility] Apr 21, 2014 08:25 AM CURRENT TOBACCO USER [facility] Apr 20, 2013 10:04 AM CURRENT TOBACCO USER [facility] Mar 20, 2012 09:53 AM CURRENT TOBACCO USER [facility] Feb 06, 2011 09:44 AM CURRENT TOBACCO USER [facility] Jan 02, 2010 09:22 AM CURRENT TOBACCO USER [facility] Encounter Notes: All associated encounter notes This section contains the clinical notes associated to the Encounter. Date/Time Encounter Note(s) Provider Source Nov 06, 2022 11:12 AM PHARMACY NOTE: LOCAL TITLE: PHARMACY NON DE CARE MEDICATIONS STANDARD TITLE: PHARMACY NOTE DATE OF NOTE: NOV 06, 2022@11:12 ENTRY DATE: NOV 06, 2022@11:12:23 AUTHOR: ZOFIA CORREA COSIGNER: URGENCY: STATUS: COMPLETED [facility] Outpatient Pharmacy RECEIVED electronic prescription(s) (eRX(s)) from NON-VA Provider: VANITA WELCH Date eRX received: Nov [place] not eligible to receive non-VA prescription(s) at this time. Prescription(s) REDIRECTED via FAX to [facility] (Dual) Care eRx Prescription Information: 1. ANUSHA DE PAZ 45 NIFEdipine ER 90 mg melly WELCH MA N 11/06/22 2. ANUSHA DE PAZ 45 metoprolol succinate ZAYDA WELCH 11/06/22 3. ANUSHA DE PAZ 45 fluocinonide 0.05 % melly WELCH MA N 11/06/22 4. ANUSHA DE PAZ 45 mometasone 220 mcg/ac ZAYDA WELCH N 11/06/22 5. ANUSHA DE PAZ 45 potassium chloride ER ZAYDA WELCH 11/06/22 6. ANUSHA DE PAZ 45 furosemide 20 mg tabl ZAYDA WELCH N 11/06/22 7. ANUSHA DE PAZ 45 rosuvastatin 20 mg ta ZAYDA WELCH 11/06/22 8. ANUSAH DE PAZ 45 metoprolol succinate ZAYDA WELCH 11/06/22 /es/ JB GOMEZ Pharmacist Signed: 11/06/2022 11:17 JB CORREA [facility]
--- OUTSIDE RECORDS SUMMARY | 2023-10-07 13:42 | XMS_ITS | Encounter Summary ---
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 [place] Organization [facility] [place] [facility] [place] Address [address] [place] [address] Care Team Providers Care Demolition Specialist Name Role Phone AFRICA CONCEPCION Primary Care Provider Unavaila ble Insurance Providers: [...] Policy Kevin BC BS [place] [facility] ORGANIZ [id number] Jan 05, 2010 [id number] DEPENDS ON GROUP DE PAZANUSHA PATIENT MEDICARE (WNR) MEDICARE (M) PART A Jan 05, 2010 PART A [id number] [phone] ANUSHA DE PAZ PATIENT MEDICARE (WNR) MEDICARE (M) PART B Jan 05, 2010 PART B [id number] [phone] ANUSHA DE PAZ PATIENT MEDICARE (WNR) MEDICARE (M) PART A Jan 05, 2010 [id number] [facility] ANUSHA DE PAZ PATIENT MEDICARE (WNR) MEDICARE (M) PART A Jan 05, 2010 PART A [id number] [facility] [phone] ANUSHA DE PAZ PATIENT MEDICARE (WNR) MEDICARE (M) PART B Jan 05, 2010 PART B [id number] [facility] [phone] ANUSHA DE PAZ PATIENT Selected Encounter This section includes the information on record at ID for the Encounter. Date/Time Encounter Type Encounter Description Reason Provider Source Jul 17, 2023 03:00 PM OFFICE O/P EST MOD 30 MIN PRIMARY CARE/MEDICINE ICD-10-CM Z00.01 Encounter for general adult medical exam w abnormal findings SARAH CONCEPCION E Encounter Template Text not used by ID Assessments - Encounter Diagnoses This section includes the primary and secondary diagnoses documented for the Encounter. Date/Time Primary/Secondary Diagnosis Diagnosis Name Provider Source Jul 18, 2023 06:19 AM PRIMARY Encounter for general adult medical exam w abnormal findings ANAIS CONCEPCION [place] [facility] Jul 18, 2023 06:19 AM SECONDARY Aths[place] heart disease of [place] coronary artery w/o ang pctrs ANAIS CONCEPCION [facility] Jul 18, 2023 06:19 AM SECONDARY Benign prostatic hyperplasia with lower urinary tract symp CONCEPCIONANAIS YU [facility] Jul 18, 2023 06:19 AM SECONDARY Cerebrovascular disease, unspecified CONCEPCION,ANAIS VASQUEZ [facility] Jul 18, 2023 06:19 AM SECONDARY Chronic atrial fibrillation, unspecified CONCEPCION,CHAR [facility] Jul 18, 2023 06:19 AM SECONDARY Chronic obstructive pulmonary disease, unspecified CONCEPCION,ANAIS VASQUEZ [place] [facility] Jul 18, 2023 06:19 AM SECONDARY Essential (primary) hypertension CONCEPCIONANAIS CH[facility]STINA [facility] Jul 18, 2023 06:19 AM SECONDARY Hyperglycemia, unspecified CONCEPCIONANAIS [facility] Jul 18, 2023 06:19 AM SECONDARY Peripheral vascular disease, unspecified CONCEPCION,ANAIS VASQUEZ [facility] Lab Results: +/- 30 days of the encounter This section includes the Chemistry and Hematology Lab Results on record with ID for the patient. Radiology Reports and Pathology Reports are provided separately, in subsequent sections. Lab Results This section contains the Chemistry/Hematology Results that were resulted 30 days before or 30 daysafter the date of the Encounter. Date/Time Source Result Type Result - Unit Interpretation Reference Range Comment Jul 17, 2023 04:34 PM [facility] URINALYSIS Specimen Type: URINE No comment entered. Ordering Provider: SARAH CONCEPCION Report Released Date/Time: Jul 17, 2023 04:23 PM Reporting Lab: [facility] [id number] Performing Lab: [facility] [id number] URINE COLOR COLORLESS SPECIFIC GRAVITY 1.006 1.003-1.035 [...] NEGATIVE NEGATIVE Jul 17, 2023 02:17 PM [facility] HEMOGLOBIN A1C Specimen Type: BLOOD [...] August 07, 2022 02:21 PM Reporting Lab: [facility] [id number] Performing Lab: [facility] [id number] HEMOGLOBIN A1C 6.0 4.0-6.0 Jul 17, 2023 02:17 PM [facility] BASIC METABOLIC PANEL+MG Specimen Type: PLASMA No comment entered. Ordering Provider: SARAH CONCEPCION Report Released Date/Time: August 07, 2022 02:21 PM Reporting Lab: [facility] [id number] Performing Lab: [facility] [phone] CREATININE 1.3 mg/dL H 0.7-1.2 UREA NITROGEN 15 mg/dL 8-26 GLUCOSE 84 mg/dL 70-100 SODIUM 137 mmol/L 136-145 POTASSIUM 4.6 mmol/L 3.5-5.1 CHLORIDE 105 mmol/L 98-107 CO2 24 mmol/L 22-29 CALCIUM 8.9 mg/dL 8.4-10.2 MAGNESIUM 2.1 mg/dL 1.6-2.6 ANION GAP 8 mmol/L 5-15 .CREAT EGFR(CKD-EPI) 56 L >60 Jul 17, 2023 02:17 PM [facility] CBC Specimen Type: BLOOD No comment entered. Ordering Provider: SARAH CONCEPCION Report Released Date/Time: August 07, 2022 02:21 PM Reporting Lab: [facility] [address] Performing Lab: [facility] [id number] WBC 8.72 10*3/uL 4.0-11.0 RBC 4.11 10*6/uL L 4.6-6.2 HGB 13.4 g/dL L 13.5-17.9 HCT 39.7 L 41-54 MCV 96.6 fL 80-100 MCH 32.6 pg 27-33 MCHC 33.8 g/dL 32.0-37.5 PLT 159 10*3/uL 150-400 MPV 9.6 fL 7.4-10.4 RDW 14.1 11.5-14.5 Jul 17, 2023 02:17 PM [facility] LIVER FUNCTION TESTS Specimen Type: PLASMA No comment entered. Ordering Provider: SARAH CONCEPCION Report Released Date/Time: August 07, 2022 02:21 PM Reporting Lab: [facility] [id number] Performing Lab: [facility] [address] BILIRUBIN, TOTAL 0.8 mg/dL 0.2-1.2 ALKALINE PHOSPHATASE 52 U/L 40-150 ALT/SGPT 20 U/L <55 AST/SGOT 19 U/L <34 GAMMA GTP 38 U/L <64 Jul 17, 2023 02:17 PM [facility] PSA Specimen Type: SERUM No comment entered. Ordering Provider: SARAH CONCEPCION Report Released Date/Time: August 07, 2022 02:21 PM Reporting Lab: [facility] [address] Performing Lab: [facility] [address] PSA 3.84 ng/mL <4.00 Vital Signs: All taken on the encounter date This section contains inpatient and outpatient Vital Signs collected on the date of the Encounter. Date/Time Temperature Pulse Blood Pressure Respiratory Rate SP02 Pain Height Weight Body Mass Index Source Jul 17, 2023 03:21 PM 74 142/90 [facility] Jul 17, 2023 03:03 PM 98.1 82 135/93 16 96 0 74 202.7 26 [facility] Social History: Smoking Status (Most current) and Tobacco Use (All prior to encounter date) This section includes the most current, and the historical, smoking and tobacco- related health factors from the ID facility where the Encounter took place. Current Smoking Status This section includes the most current smoking, or tobacco-related health factor, from the ID facility where the Encounter took place. Date/Time Current Smoking Status Comment Facil ity Jul 17, 2023 03:00 PM VA-TOBACCO FORMER USER [facility] Tobacco Use History This section includes a history of the smoking, or tobacco-related health factors, that were collected on or before the date of the Encounter. The data comes from the ID facility where the Encounter took place. Date/Time Smoking Status/Tobacco Use Comment F acility Jul 17, 2023 03:00 PM VA-TOBACCO QUIT 1 TO < 5 YRS [facility] August 07, 2022 01:30 PM VA-TOBACCO FORMER USER [facility] August 07, 2022 01:30 PM VA-TOBACCO QUIT 1 TO < 5 YRS [facility] Oct 16, 2020 02:45 PM VA-TOBACCO FORMER USER [facility] Oct 16, 2020 02:45 PM VA-TOBACCO QUIT 15 YRS OR MORE [facility] Mar 29, 2019 10:59 AM VA-TOBACCO USE > 1 5 LESS THAN 30 YEARS [facility] Mar 29, 2019 10:59 AM VA-TOBACCO USE ADVICE [facility] Mar 29, 2019 10:59 AM VA-TOBACCO USE CONTROL EQUIPMENT ELECTRICIAN NO [facility] Mar 29, 2019 10:59 AM VA-TOBACCO USE MED NO [facility] Mar 29, 2019 10:59 AM VA-TOBACCO USE WI 30 MIN OF WAKE UP [facility] Mar 29, 2019 10:59 AM VA-TOBACCO USER EVERY DAY [facility] Feb 17, 2018 03:39 PM VA-TOBACCO USE 30 YEARS OR MORE [facility] Feb 17, 2018 03:39 PM VA-TOBACCO USE ADVICE [facility] Feb 17, 2018 03:39 PM VA-TOBACCO USE CONTROL EQUIPMENT ELECTRICIAN NO [facility] Feb 17, 2018 03:39 PM VA-TOBACCO USE MED NO [facility] Feb 17, 2018 03:39 PM VA-TOBACCO USE WI 30 MIN OF WAKE UP [facility] Feb 17, 2018 03:39 PM ID-TOBACCO USER EVERY DAY [facility] Feb 12, 2017 12:38 PM CURRENT TOBACCO USER [facility] Apr 25, 2015 07:50 AM CURRENT TOBACCO USER [facility] Apr 21, 2014 08:25 AM CURRENT TOBACCO USER [facility] Apr 20, 2013 10:04 AM CURRENT TOBACCO USER [facility] Mar 20, 2012 09:53 AM CURRENT TOBACCO USER [facility] Feb 06, 2011 09:44 AM CURRENT TOBACCO USER [facility] Jan 02, 2010 09:22 AM CURRENT TOBACCO USER [facility] Encounter Notes: All associated encounter notes This section contains the clinical notes associated to the Encounter. Date/Time Encounter Note(s) Provider Source Jul 17, 2023 04:32 PM ADMINISTRATIVE NOTE: LOCAL TITLE: AFTER VISIT SUMMARY NOTE STANDARD TITLE: ADMINISTRATIVE NOTE DICT DATE: JUL 17, 2023@16:32:08 ENTRY DATE: JUL 17, 2023@16:32:08 DICTATED BY: AFRICA CONCEPCION EXP COSIGNER: URGENCY: STATUS: COMPLETED The patient was provided with a copy of an after-visit summary at the conclusion of the visit. A copy of the after-visit summary provided to the patient is available in [facility]. SCANNED DOCUMENT SIGNATURE NOT REQUIRED Electronically Filed: 07/17/2023 by: Africa Concepcion MD Staff Physician AFRICA CONCEPCION [facility] Jul 17, 2023 03:25 PM INTERNAL MEDICINE NOTE: LOCAL TITLE: MEDICINE CLINIC NOTE STANDARD TITLE: INTERNAL MEDICINE NOTE DATE OF NOTE: JUL 17, 2023@15:25 ENTRY DATE: JUL 17, 2023@15:25:20 AUTHOR: AFRICA CONCEPCION EXP COSIGNER: URGENCY: STATUS: COMPLETED ASSESSMENT AND PLAN Co-Managed Health Care. 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 No focal deficits. Does appear to have some receptive cognitive difficulties. Atrial fibrillation on Apixaban for anticoagulation, Metoprolol SA for rate control. Coronary artery disease status post stenting in 2019. Rosuvastatin for lipids. Hypertension treated with Nifedipine [...] of problems per problem list. Co-Managed at [facility] in [place], last seen 3 months ago. 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 No focal deficits at this point. Atrial fibrillation, apixaban for anticoagulation and Metoprolol succinate for rate control. Previous stent placement in 2020. Hypertension on Nifedipine SA and Metoprolol succinate. 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 Still follows with Michael for this. Wears knee-high compression stocking on [...] for the followin. Essential hypertension (SNOMED CT 16310109) 2. Atrial fibrillation (SNOMED CT 40807123) - Warfarin through [facility] 3. Allergic rhinitis (SNOMED CT 96093541) 4. Current smoker - Cigars, not cigarettes 5. Glucose intolerance 6. COPD - Chronic Obstructive Pulmonary Disease ([facility] [id number]) - Mometasone & Albuterol MDI's 7. Co-Managed Care - Dr Garcia [facility], F: [phone], 8. [place] of toe - R middle toe 9. Peripheral arterial insufficiency - 01/21/20: L femoral Art occlusion per [facility]-->Fem-Tibial bypass planned 10. CAD - Coronary Artery Disease ([facility] [id number]) - 01/27/20: LAD and Dx stented w/SATHYA at [facility]. Plavix +ASA thru 01/26/21 11. CVD - Cerebrovascular Disease ([facility] [id number]) - 03/19/20: L MCA CVA, Admit ANW. Cardio-embolic d/t Warfarin DC SURGERIES - NONE FOUND LISINOPRIL (Mar 05, 2010) FINAL MEDICATION RECONCILIATION See Medication Reconciliation below IM - Immunizations ADMINISTERED Immunization Series Date Facility Reaction Info COVID-19 ([facility]), MRNA, LNP-S, * 04/24/2022 [facility] [facility] COVID-19 ([facility]), MRNA, LNP-S, * 02/09/2021 [facility] [facility] COVID-19 ([facility]), MRNA, LNP-S, * 2 06/17/2020 [facility]* COVID-19 ([facility]), MRNA, LNP-S, * 1 05/27/2020 [facility]* COVID-19 ([facility]), MRNA, LNP-S, * 08/24/2021 [facility] [facility] INFLUENZA VACCINE, QUADRIVALENT,* 12/29/2020 [facility] [facility] INFLUEN[place] VACCINE, QUADRIVALENT,* 01/06/2020 [facility] [facility] INFLUENZA, HIGH DOSE SEASONAL 02/12/2017 [place]* INFLUENZA, HIGH DOSE SEASONAL 04/09/2016 [facility] [facility] INFLUENZA, HIGH DOSE SEASONAL 04/25/2015 [place]* INFLUENZA, SEASONAL, INJECTABLE [facility] INFLU[facility], SEASONAL, INJECTABLE [place] INFLUENZA, TRIVALENT, ADJUVANTED 02/24/2019 [facility] [facility] INFLUEN[place], [...] [facility] TDAP 04/07/2007 [place]* <C> ZOSTER LIVE [place] ZOSTER LIVE 10/31/2006 [facility] [facility] ZOSTER RECOMBINANT [...] independent of and w/out assistance from this ID. Through /naina/ Africa Concepcion MD Staff Physician Signed: 07/18/2023 06:19 AFRICA CONCEPCION [place] [facility] Jul 17, 2023 03:09 PM [...] pressure ulcers, or a wound from a registered medical assistant or Patient is bed-confined or a wheelchair-user or Patient requires assistance to transfer/change position No, Skin Screen is Negative Home Abuse/Violence Screen Is your home free of abuse and violence? Yes MOVE! Program Screen Body Mass Index (BMI)= 26.1 [place]: Collection DT Specimen Test Name Result Units Ref Range 07/17/2023 14:17 BLOOD !! HEMOGLOBIN A1C 6.0 % 4.0 - 6.0 !! Indicates COMMENTS AVAILABLE...Refer to Interim Lab Report. [place] Hgb A1C: No data available [place] Hgb A1C: No data available Point of Care Hgb A1C: POC HGB A1C____ Outpatient Nutrition Screen Body Mass Index (BMI)= 26.1 [place]: Collection DT Specimen Test Name Result Units Ref Range 07/17/2023 14:17 BLOOD !! HEMOGLOBIN A1C 6.0 % 4.0 - 6.0 !! Indicates COMMENTS AVAILABLE...Refer to Interim Lab Report. [place] Hgb A1C: No data available [place] Hgb A1C: No data available Point of [...] need for follow-up. Name of provider notified: Africa Concepcion Homelessness/Food Insecurity Screen: In the past [...] Not worried about housing near future [facility] [place] reports the following: Within the past 12 months, you worried whether your food would run out before you got money to buy more. Never true Within the past 12 months, the food you bought just didn't last and you didn't have money to get more. Never true Food Assistance Programs [facility] Food Assistance Programs [facility] Depression Screening: Perform PHQ-2 A PHQ-2 screen was performed. The score was 0 which is a negative screen for depression. Over the past two weeks, how often have you been bothered by the following problems? 1. Little interest or pleasure in doing things Not at all 2. Feeling down, depressed, or hopeless Not at all Suicide Screen: C-SSRS Screening [place]-Suicide Severity Rating Scale (C-SSRS Screener) 1. Over [...] responses to other questions. /naina/ ANNA COTTRELL EXERCISE MANAGER Signed: 07/17/2023 15:19 07/17/2023 ADDENDUM STATUS: COMPLETED Procedure: Residual Urine Participant instructed and verbalized understanding of procedure. Patient instructed and verbalizes that they have emptied the bladder completely. Ultrasound RU: 111 cc /naina/ ANNA COTTRELL EXERCISE MANAGER Signed: 07/17/2023 16:33 ANNA COTTRELL [facility] Jul 17, 2023 02:25 PM ADVANCE DIRECTIVE: LOCAL TITLE: AD NOTIFICATION AND SCREENING STANDARD TITLE: ADVANCE DIRECTIVE DATE OF NOTE: JUL 17, 2023@14:25 ENTRY DATE: JUL 17, 2023@14:25:41 AUTHOR: AURELIA EGAN EXP COSIGNER: URGENCY: STATUS: COMPLETED ADVANCE DIRECTIVE NOTIFICATION: Patient was given written notification of the following rights: 1. Accept or refuse any medical treatment. 2. Complete a durable power of lab support service tech for health care. 3. Complete a living will. ADVANCE DIRECTIVE SCREENING: Does patient have an Advance Directive? The patient does not have an Advance Directive. The patient does not wish to create an Advance Directive for health care. Comment: DECLINED /sonu EGAN Advance Marine Water Tender Signed: 07/17/2023 14:26 AURELIA EGAN [facility]
--- OUTSIDE RECORDS SUMMARY | 2023-10-07 13:42 | XMS_ITS | Encounter Summary ---
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 [place] [facility] [place] [facility] [place] Address [address] [place] [address] Care Team Providers Care Belt Loop Maker Name Role Phone AFRICA CHAUHAN Primary Care [...] Patient's Relationship to Policy Kevin BS [place] [facility] ([facility]) [facility] ORGANIZ [id number] Jan 05, 2010 [id number] DEPENDS ON GROUP DE PAZANUSHA PATIENT MEDICARE (WNR) MEDICARE (M) PART A Jan 05, 2010 PART A [id number] [phone] ANUSHA DE PAZ PATIENT MEDICARE (WNR) MEDICARE (M) PART B Jan 05, 2010 PART B [id number] [phone] ANUSHA DE PAZ PATIENT MEDICARE (WNR) MEDICARE (M) PART A Jan 05, 2010 PART A [id number] ANUSHA DE PAZ PATIENT MEDICARE (WNR) MEDICARE (M) PART B Jan 05, 2010 PART B [id number] [phone] ANUSHA DE PAZ PATIENT MEDICARE (WNR) MEDICARE (M) PART A Jan 05, 2010 PART A [id number] [facility] [phone] ANUSHA DE PAZ PATIENT Selected Encounter This section includes the information on record at [place] for the Encounter. Date/Time Encounter Type Encounter Description Reason Pro vider Source Feb 19, 2023 08:08 PM Outpatient Encounter COMMUNITY CARE CONSULT IHE Encounter Template Text not used by [place] Plan of Treatment: Future Appointments (+ 6 months) and Future Tests (+/- 45 days) The Plan of Treatment section includes future care activities for the patient from all [place] [facility]. This section includes future appointments and future orders which are active, pending or scheduled. Future Appointments This section includes appointments that were scheduled to occur 6 months from the date of the Encounter, up to a maximum of 20 appointments. The data comes from all [place] treatment facilities. Appointment Date/Time Appointment Type Appointme nt Facility Name Apr 16, 2023 12:00 PM AMBULATORY - NONE [facility] Jul 17, 2023 03:00 PM [facility] Social History: Smoking Status (Most current) and Tobacco Use (All prior to encounter date) This section includes the most current, and the historical, smoking and tobacco- related health factors from the [place] facility where the Encounter took place. Current Smoking Status This section includes the most current smoking, or tobacco-related health factor, from the [place] facility where the Encounter took place. Date/Time Current Smoking Status Comment Liam ity August 07, 2022 01:30 PM VA-TOBACCO FORMER USER [facility] Tobacco Use History This section includes a history of the smoking, or tobacco-related health factors, that were collected on or before the date of the Encounter. The data comes from the [place] facility where the Encounter took place. Date/Time [...] Mar 29, 2019 10:59 AM VA-TOBACCO USE SASH REPAIRER NO [facility] Mar 29, 2019 10:59 [...] Feb 17, 2018 03:39 PM VA-TOBACCO USE SASH REPAIRER NO [facility] Feb 17, 2018 03:39 [...] PM PHARMACY NOTE: LOCAL TITLE: PHARMACY NON [place] CARE MEDICATIONS STANDARD TITLE: PHARMACY NOTE DATE OF NOTE: FEB 19, 2023@20:08 ENTRY DATE: FEB 19, 2023@20:08:55 AUTHOR: ZULEYKA ESTRADA EXP COSIGNER: URGENCY: STATUS: COMPLETED [facility] RECEIVED electronic prescription(s) (eRX(s)) from NON-[place] Provider: VANITA WELCH Date eRX received: Feb Outside (NON-VA) provider not authorized to write for prescription(s) through [place] pharmacy. Prescription request REDIRECTED via FAX to [facility] for review: eRx Reference #: [id number] eRx Prescription Information: eRx Drug: furosemide 20 mg tablet (LASIX) eRx Qty: 45 eRx Refills: 3 eRx Days Supply: eRx Written Date: FEB 19, 2023 eRx Issue Date: Prohibit Renewals: No eRx Sig: Lasix to 20 mg on Friday, Friday and Friday. eRx Reference #: [id number] eRx Drug: potassium chloride ER 10 mEq tablet,extended release(part/cryst) (potassium chloride) eRx Qty: 45 eRx Refills: 3 eRx Days Supply: eRx Written Date: FEB 19, 2023 eRx Issue Date: Prohibit Renewals: No eRx Sig: Potassium 10 meq on Friday, Friday and Friday. /naina/ ZULEYKA ESTRADA pharmacist Signed: 02/19/2023 20:10 ZULEYKA ESTRADA [facility]
--- OUTSIDE RECORDS SUMMARY | 2023-10-07 13:42 | XMS_ITS | Encounter Summary ---
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 [place] [facility] [place] Address [address] [place] [address] Care Team Providers Care Screen Roller Name Role Phone AFRICA CHAHUAN Primary Care Provider Unavaila ble Insurance Providers: [...] Patient's Relationship to Policy Kevin OP[place] [facility] ([facility]) [facility] ORGANIZ [id number] Jan 05, 2010 [id number] DEPENDS ON GROUP ANUSHA DE PAZ PATIENT MEDICARE (WNR) MEDICARE (M) PART A Jan 05, 2010 PART A [id number] [phone] ANUSHA DE PAZ PATIENT MEDICARE (WNR) MEDICARE (M) PART B Jan 05, 2010 PART B [id number] [phone] ANUSHA DE PAZ PATIENT MEDICARE (WNR) MEDICARE (M) PART A Jan 05, 2010 PART A [id number] [facility] ANUSHA DE PAZ PATIENT MEDICARE (WNR) MEDICARE (M) PART A Jan 05, 2010 PART A [id number] [phone] ANUSHA DE PAZ PATIENT MEDICARE (WNR) MEDICARE (M) PART B Jan 05, 2010 PART B [id number] [facility] [phone] ANUSHA DE PAZ PATIENT Selected Encounter This section includes the information on record at [place] for the Encounter. Date/Time Encounter Type Encounter Description Reason Pro vider Source Dec 08, 2022 11:11 AM Outpatient Encounter COMMUNITY CARE CONSULT IHE Encounter Template Text not used by [place] Plan of Treatment: Future Appointments (+ 6 months) and Future Tests (+/- 45 days) The Plan of Treatment section includes future care activities for the patient from all [place] treatmentfacilities. This section includes future appointments and future orders which are active, pending or scheduled. Future Appointments This section includes appointments that were scheduled to occur 6 months from the date of the Encounter, up to a maximum of 20 appointments. The data comes from all [place] treatment facilities. Appointment Date/Time Appointment Type Appointme nt Facility Name Apr 16, 2023 12:00 PM AMBULATORY - NONE [facility] Social History: Smoking Status (Most current) and Tobacco Use (All prior to encounter date) This section includes the most current, and the historical, smoking and tobacco- related health factors from the [place] facility where the Encounter took place. Current Smoking Status This section includes the most current smoking, or tobacco-related health factor, from the [place] facility where the Encounter took place. Date/Time Current Smoking Status Comment Facil ity August 07, 2022 01:30 PM VA-TOBACCO FORMER USER [facility] Tobacco Use History This section includes a history of the smoking, or tobacco-related health factors, that were collected on or before the date of the Encounter. The data comes from the [place] facility where the Encounter took place. 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 NO [facility] Mar 29, 2019 10:59 AM VA-TOBACCO USE MED NO [facility] Mar 29, 2019 10:59 AM VA-TOBACCO USE WI 30 MIN OF WAKE UP [facility] Mar 29, 2019 10:59 AM VA-TOBACCO USER EVERY DAY [facility] Feb 17, 2018 03:39 PM VA-TOBACCO USE 30 YEARS OR MORE [facility] Feb 17, 2018 03:39 PM VA-TOBACCO USE ADVICE [facility] Feb 17, 2018 03:39 PM VA-TOBACCO USE CHAIN PULLER NO [facility] Feb 17, 2018 03:39 PM VA-TOBACCO USE MED NO [facility] Feb 17, 2018 03:39 PM VA-TOBACCO USE WI 30 MIN OF WAKE UP [facility] Feb 17, 2018 03:39 PM VA-TOBACCO USER EVERY DAY [facility] Feb 12, 2017 12:38 PM CURRENT TOBACCO USER [facility] Apr 25, 2015 07:50 AM CURRENT TOBACCO USER [facility] Apr 21, 2014 08:25 AM CURRENT TOBACCO USER [facility] Apr 20, 2013 10:04 AM CURRENT TOBACCO USER [facility] Mar 20, 2012 09:53 AM CURRENT TOBACCO USER [facility] Feb 06, 2011 09:44 AM CURRENT TOBACCO USER [facility] Jan 02, 2010 09:22 AM CURRENT TOBACCO USER [facility] Encounter Notes: All associated encounter notes This section contains the clinical notes associated to the Encounter. Date/Time Encounter Note(s) Provider Source Dec 08, 2022 11:11 AM PHARMACY NOTE: LOCAL TITLE: PHARMACY NON [place] CARE MEDICATIONS STANDARD TITLE: PHARMACY NOTE DATE OF NOTE: DEC 08, 2022@11:11 ENTRY DATE: DEC 08, 2022@11:11:15 AUTHOR: NATHEN MCPHERSON COSIGNER: URGENCY: STATUS: COMPLETED [facility] RECEIVED electronic prescription(s) (eRX(s)) from NON-[place] Provider: VANITA WELCH Date eRX received: Dec not eligible to receive non-VA prescription(s) at this time. Prescription(s) REDIRECTED via FAX to: [X][facility]) [facility] [ ]Other: [ ] [facility] ([facility]) [ ] [facility] eRx Reference #: [id number] eRx Prescription Information: eRx Drug: mometasone 200 mcg/actuation HFA aerosol inhaler eRx Qty: 3 eRx Refills: 3 eRx Days Supply: eRx Written Date: DEC 06, 2022 eRx Issue Date: Prohibit Renewals: No eRx Sig: Inhale 1 Puff by mouth two times daily. /es/ NATHEN MCPHERSON Pharmacist Signed: 12/08/2022 11:12 NATHEN MCPHERSON [facility]
--- OUTSIDE RECORDS SUMMARY | 2023-10-07 13:43 | XMS_ITS | Data Portability ---
Author Organization [place] - [facility], [employer] Address [address] [facility] [place] [address] Assessment Encounter Date Assessment Date Assessment LastModified [...] user Active 2015 Tobacco user; Original Code: 637223634 Origi nal Codesystem: SNOMED CT Classificati on: Medical Confirm ation Status: Probable Not Available [facility] 09:10:17 Onychomycosis of toenails Active 2015 Onychomycosis of toenails; Original Code: 0272859980 Orig inal Codesystem: SNOMED CT Classificati on: Medical Confirm ation Status: Confirmed Not Available [facility] 09:10:17 Heart disease Active 2021 Heart disease; Original Code: 82496141 Origin al Codesystem: SNOMED CT Classificati on: Medical Confirm ation Status: Confirmed Not Available [facility] 3 09:10:17 Corns and callus Active 2015 Corns and callus; Original Code: 064671497 Origi nal Codesystem: SNOMED CT Classificati on: Medical Confirm ation Status: Confirmed Not Available [facility] 3 09:10:17 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; Original Code: 0574285679 Orig inal Codesystem: SNOMED CT Classificati on: Medical Confirm ation Status: Confirmed Not Available [facility] 3 09:10:17 Foot pain Active 2015 Foot pain; Original Code: 555170007 Origi nal Codesystem: SNOMED CT Classificati on: Medical Confirm ation Status: Confirmed Not Available [facility] 3 09:10:17 Acquired hallux valgus Active 2015 Acquired hallux valgus; Original Code: 442225237 Origi nal Codesystem: SNOMED CT Classificati on: Medical Confirm ation Status: Confirmed Not Available [facility] 3 09:10:17 Acquired hallux malleus Active 2015 Acquired hallux malleus; Original Code: 32530458 Origin al Codesystem: SNOMED CT Classificati on: Medical Confirm ation Status: Confirmed Not Available [facility] 09:10:17 Atrial fibrillation Active 2015 Atrial fibrillation; Original Code: 75639660 Origin al Codesystem: SNOMED CT Classificati on: Medical Confirm ation Status: Confirmed Not Available [facility] 09:10:17 Hypertensive disorder Active 2015 Hypertensive disorder; Original Code: 2819275099 Orig inal Codesystem: SNOMED CT Classificati on: Medical Confirm ation Status: Confirmed Not Available [facility] 3 09:10:17 Notes:H/O: anticoagulant the rapy Original Code: 308576460 Original Codesystem: SNOMED CT Classification: Medical Confirmation Status: Confirmed Problem Notes None recorded. Procedures Surgical History Date Name Laterality Status Provider Name and Address Organization Details Recorded Time 10/24/[address] Hong Andres DPM [address] [place] [address], [phone], [facility] 10/23/2022 11:44:57 07/25/[address] Pitts completed Too Andres DPM [address] [place] [address], [phone], [facility] 07/24/2022 10:35:10 04/24/[address] Hong Andres DPM [address] [place] [address], [phone], [facility] [...] Updated DateTime 04/24/2022 190.5 cm 25 kg/m2 76053.47 g Mamta Corbett [facility] 04/24/2022 10:32:58 Social History None recorded. Functional Status None recorded. Mental Status None recorded. Family History Nothing Reported. Medical History No medical history recorded. Past Encounters Encounter ID Performer Location Encounter Start Date Encounter Closed Date Diagnosis/Indication Diagnosis SNOMED-CT Code [id number] Too Andres DPM [facility] [address] [place] [phone] 04/24/2022 10:31:04 04/24/2022 13:46:36 Onychomycosis 394892804 Peripheral vascular disease [id number] [id number] Too Andres DPM [facility] [address] [place] [phone] 07/24/2022 10:14:25 07/25/2022 09:45:42 Onychomycosis 041979158 Peripheral vascular disease [id number] Too Andres DPM [facility] [address] [place] [address] 10/23/2022 10:13:43 10/24/2022 09:44:58 Onychomycosis 375975866 Peripheral vascular disease 515564625 Health Concerns Section Related Observation LastModified by Organization Detai ls LastModified Time None Recorded Concern Status LastModified by Organization Details LastModified Time None Recorded Advance Directives Directive None Recorded Payers Encounter Date Sequence Insurance Name Policy Number Policy Kevin Covered Member ID Kevin Member ID Guarantor Name 04/24/2022 1 [place]) [id number] Bola Zurita [id number] Bola Zurita 07/24/2022 1 [place] [id number] Bola Zurita [id number] Bola Zurita 10/23/2022 1 [place]) [id number] Bola J Parminder [id number] Bola Zurita Notes Date Note Type Note Provider Name and Address Organization Details Recorded Time 04/24/2022 text/html HPI Notes: Pawel salmeron is a 77 year old male established patient who presents with the chief complaint. Presents today for evaluation of problematic toenails and feet in general. They relate chronic thickening and deformity to their toenails that has not responded to self-trimming, topical bqlj-ltp-rubkilb anti-fungal therapy, foot soaks, and other similar conservative treatments. Nails are painful with catching on shoegear and socks. Denies any recent foot injury or infection. Claudication symptoms: No Burning symptoms: No Paresthesia: Subjective numbness to the left lower extremity consistent with his previous surgical procedures performed through Vascular surgery in the [facility] Patient presents for further evaluation and treatment options. Too Andres DPM [address] [place], [phone], [facility] 04/24/2022 11:14:44 07/24/2022 text/html HPI Notes: Pawel salmeron is a 77 year old male established patient who presents with the chief complaint. Presents today for evaluation of problematic toenails and feet in general. They relate chronic thickening and deformity to their toenails that has not responded to self-trimming, topical hrci-jyb-cctuqyb anti-fungal therapy, foot soaks, and other similar conservative treatments. Nails are painful with catching on shoegear and socks. Denies any recent foot injury or infection. Claudication symptoms: No Burning symptoms: No Paresthesia: Subjective numbness to the left lower extremity consistent with his previous surgical procedures performed through Vascular surgery in [facility] Patient presents for further evaluation and treatment options. Too Andres DPM [address] [place], [phone], [facility] 07/24/2022 10:35:54 10/23/2022 text/html HPI Notes: Pawel salmeron is a 77 year old male established patient who presents with the chief complaint. Presents today for evaluation of problematic toenails and feet in general. They relate chronic thickening and deformity to their toenails that has not responded to self-trimming, topical ujpg-pdw-cugudjp anti-fungal therapy, foot soaks, and other similar conservative treatments. Nails are painful with catching on shoegear and socks. Denies any recent foot injury or infection. Claudication symptoms: No Burning symptoms: No Paresthesia: Subjective numbness to the left lower extremity consistent with his previous surgical procedures performed through Vascular surgery in [facility] Patient presents for further evaluation and treatment options. Too Andres DPM [address] [place], [phone], [facility] 10/23/2022 11:45:19
== END 2023-10-07 13:41 | disposition home or self-care (01) ==
LOC: WOUND 13:40
PROVIDERS: PCP Family Medicine; Visit Provider Physician Assistant Surgical
DX: L72.0 Epidermal cyst (principal)
CPT/HCPCS: 11042

== ENCOUNTER 2023-10-10 14:50 | Outpatient (CLI) | payer MEDICARE, BC, SELFPAY ==
--- OUTSIDE RECORDS SUMMARY | 2023-10-10 14:52 | XMS_ITS | Clinical Summary ---
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 LLE angiogram 2. 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 Panlobular emphysema 10/21/2018 COPD exacerbation 09/09/2018 [...] Lab Requisition [facility] [phone] Unknown, Doctor 08/04/2023 8:35 AM CDT Office Visit [facility] [address] [place] [address] Jena Pascual PA Follow Up (Boil) 08/04/2023 Travel 08/01/2023 8:35 AM CDT Office Visit [facility] [address] [facility] [place] [address] Jena Pascual PA Derm Problem 08/01/2023 Travel [...] T Respiratory Rate 18 03/17/2023 3:35 PM CRYPTOLOGIC TECHNICIAN Oxygen Saturation 96% 08/04/2023 8:35 AM CDT Inhaled Oxygen Concentration - - Weight 90.7 kg (200 lb) 08/04/2023 8:35 AM CDT Height 190.5 cm (6' 3) 03/17/2023 2:07 PM CRYPTOLOGIC TECHNICIAN Body Mass Index 25 03/17/2023 2:07 PM CRYPTOLOGIC TECHNICIAN Plan of Treatment Health Maintenance Due Date [...] back ANTI HCV Routine 05/16/2021 3:20 PM CRYPTOLOGIC TECHNICIAN Need for hepatitis C screening test CT CHEST WO Routine 08/29/2010 4:53 PM CDT Pulmonary nodules from Last 3 Months or Most Recently Relevant to Health Maintenance Results * LAB TRACKING EVENT (08/05/2023 2:01 PM CDT) Other (Other) Client Collect / Unknown 08/05/2023 2:01 PM CDT 08/05/2023 9:37 PM CDT Doctor Unknown LAB BILL ONLY [facility] [address] [place] [address], * PATH TISSUE EXAM (08/05/2023 2:01 PM CDT) Case Report Pathology Report ?Case: [id number] ? Authorizing Provider: ??Unknown, Doctor ?Collected: ? 08/05/2023 1401 ? Ordering Location: ? [facility] ?Received: ?08/06/2023 1013 ? Pathologist: ? Jose Rinaldi MD ? Specimen: ?Back ? 08/07/2023 4:47 PM CDT [facility] Final Diagnosis A) SKIN, BACK, CYST, EXCISION: 1. Epidermoid cyst 2. Negative for dysplasia or malignancy 08/07/2023 4:47 PM CDT [facility] Clinical Information back cyst 08/07/2023 4:47 PM CDT [facility] Gross Description A) Received in formalin, labeled with the patient's name and date of , is a 1.5 x 1.1 x 0.3 cm aggregate of pale-garcia cyst wall fragments admixed with garcia-white soft, friable cyst contents. ??The specimen is filtered and submitted entirely in 1 cassette. [facility] 08/06/2023 08/07/2023 4:47 PM CDT [facility] Microscopic Description The final diagnosis is based on microscopic examination of appropriate sections of all specimens. 08/07/2023 4:47 PM CDT [facility] Additional Information Interpreted at [facility] - [address] [address] 08/07/2023 4:47 PM CDT [facility] Other (Back) 08/05/2023 2:01 PM CDT 08/06/2023 10:13 AM CDT Doctor Unknown PATHOLOGY/CYTOLOGY [facility] [address] [place] [address], * AEROBIC BACTERIAL CULTURE, STAIN (08/01/2023 9:30 AM CDT) CULTURE No Growth. 08/03/2023 3:00 PM CDT [facility] GRAM STAIN 4+ RBCs 08/03/2023 3:00 PM CDT [facility] GRAM STAIN 1+ PMNs 08/03/2023 3:00 PM CDT [facility] GRAM STAIN No Epithelial cells 08/03/2023 3:00 PM CDT [facility] GRAM STAIN 4+ Gram Positive Cocci 08/03/2023 3:00 PM CDT [facility] GRAM STAIN 3+ Gram Negative Bacilli 08/03/2023 3:00 PM CDT [facility] Other (Other) Non-Blood / Unknown 08/01/2023 9:30 AM CDT 08/01/2023 9:31 AM CDT Jena RICHARDSON MICROBIOLOGY [facility] [address] [place] [address], * ANTI HCV (05/16/2021 3:20 PM CRYPTOLOGIC TECHNICIAN) HEPATITIS C ANTIBODY Non-React edelmira Non-React edelmira 05/17/2021 1:21 AM CRYPTOLOGIC TECHNICIAN [facility] Comment:Antibodies to HCV no t detected; does not exclude the possibility of exposure to HCV. Blood BLOOD SPECIMEN / Unknown Venipuncture / Unknown 05/16/2021 3:20 PM CRYPTOLOGIC TECHNICIAN 05/16/2021 3:25 PM CRYPTOLOGIC TECHNICIAN Zak Garcia MD SEND OUTS Performing Organization Address City/[facility]/ZIP Co de Phone Number [facility] [address] [place] [address], * CT CHEST WO CONTRAST (08/29/2010 4:53 [...] Comments Code Status Discussion: Discussed Care Teams Automation Tester Relationship Specialty Start Date End Date Klever Monte MD [address] [place] [address] PCP - General Family Practice 06/12/22
--- OUTSIDE RECORDS SUMMARY | 2023-10-10 14:52 | XMS_ITS | Data Portability ---
Author Organization [place] [facility], [employer] Address [address] [facility] [place] [address] Assessment Encounter Date Assessment Date Assessment LastModified [...] user Active 2015 Tobacco user; Original Code: [id number] Origi nal Codesystem: SNOMED CT Classificati on: Medical Confirm ation Status: Probable Not Available [facility] 09:10:17 Onychomycosis of toenails Active 2015 Onychomycosis of toenails; Original Code: [id number] Orig inal Codesystem: SNOMED CT Classificati on: Medical Confirm ation Status: Confirmed Not Available [facility] 09:10:17 Heart disease Active 2021 Heart disease; Original Code: [id number] Origin al Codesystem: SNOMED CT Classificati on: Medical Confirm ation Status: Confirmed Not Available [facility] 3 09:10:17 Corns and callus Active 2015 Corns and callus; Original Code: [id number] Origi nal Codesystem: SNOMED CT Classificati on: Medical Confirm ation Status: Confirmed Not Available [facility] 3 09:10:17 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; Original Code: [id number] Orig inal Codesystem: SNOMED CT Classificati on: Medical Confirm ation Status: Confirmed Not Available [facility] 3 09:10:17 Foot pain Active 2015 Foot pain; Original Code: [id number] Origi nal Codesystem: SNOMED CT Classificati on: Medical Confirm ation Status: Confirmed Not Available [facility] 3 09:10:17 Acquired hallux valgus Active 2015 Acquired hallux valgus; Original Code: 469439199 Origi nal Codesystem: SNOMED CT Classificati on: Medical Confirm ation Status: Confirmed Not Available [facility] 3 09:10:17 Acquired hallux malleus Active 2015 Acquired hallux malleus; Original Code: 41018570 Origin al Codesystem: SNOMED CT Classificati on: Medical Confirm ation Status: Confirmed Not Available [facility] 3 09:10:17 Atrial fibrillation Active 2015 Atrial fibrillation; Original Code: 05788449 Origin al Codesystem: SNOMED CT Classificati on: Medical Confirm ation Status: Confirmed Not Available [facility] 3 09:10:17 Hypertensive disorder Active 2015 Hypertensive disorder; Original Code: [id number] Orig inal Codesystem: SNOMED CT Classificati on: Medical Confirm ation Status: Confirmed Not Available [facility] 3 09:10:17 Notes:H/O: anticoagulant the rapy Original Code: [id number] Original Codesystem: SNOMED CT Classification: Medical Confirmation Status: Confirmed Problem Notes None recorded. Procedures Surgical History Date Name Laterality Status Provider Name and Address Organization Details Recorded Time 10/24/[address] Hong Andres DPM [address] [place] [address], [phone], [facility] 10/23/2022 11:44:57 07/25/[address] Pitts completed Too Andres DPM [address] [place] [address], [phone], [facility] 07/24/2022 10:35:10 04/24/[address] Hong Andres DPM [address] [place] [address], [phone], [facility] 04/24/2022 11:13:18 Imaging [...] Updated DateTime 04/24/2022 190.5 cm 25 kg/m2 55828.47 g Mamta Corbett [facility] 04/24/2022 10:32:58 Social History None recorded. Functional Status None recorded. Mental Status None recorded. Family History Nothing Reported. Medical History No medical history recorded. Past Encounters Encounter ID Performer Location Encounter Start Date Encounter Closed Date Diagnosis/Indication Diagnosis SNOMED-CT Code [id number] Too Andres DPM [facility] [address] [place] [id number] 04/24/2022 10:31:04 04/24/2022 13:46:36 Onychomycosis [id number] Peripheral vascular disease [id number] Too Andres DPM [facility] [address] [place] [id number] 07/24/2022 10:14:25 07/25/2022 09:45:42 Onychomycosis 502375939 Peripheral vascular disease [id number] Too Andres DPM [facility] [address] [place] [id number] 10/23/2022 10:13:43 10/24/2022 09:44:58 Onychomycosis [id number] Peripheral vascular disease 107112780 Health Concerns Section Related Observation LastModified by Organization Detai ls LastModified Time None Recorded Concern Status LastModified by Organization Details LastModified Time None Recorded Advance Directives Directive None Recorded Payers Encounter Date Sequence Insurance Name Policy Number Policy Kevin Covered Member ID Kevin Member ID Guarantor Name 04/24/2022 1 [employer] [id number] Bola Zurita [id number] Bola Zurita 07/24/2022 1 [employer] [id number] Bola Zurita [id number] Bola Zurita 10/23/2022 1 [place] [id number] Bola J Parminder [id number] Bola Zurita Notes Date Note Type Note Provider Name and Address Organization Details Recorded Time 04/24/2022 text/html HPI Notes: Pawel salmeron is a 77 year old male established patient who presents with the chief complaint. Presents today for evaluation of problematic toenails and feet in general. They relate chronic thickening and deformity to their toenails that has not responded to self-trimming, topical sacx-yic-eiisotr anti-fungal therapy, foot soaks, and other similar conservative treatments. Nails are painful with catching on shoegear and socks. Denies any recent foot injury or infection. Claudication symptoms: No Burning symptoms: No Paresthesia: Subjective numbness to the left lower extremity consistent with his previous surgical procedures performed through [facility] in the [facility] Patient presents for further evaluation and treatment options. Too Andres DPM [address] [place], [phone], [facility] 04/24/2022 11:14:44 07/24/2022 text/html HPI Notes: Pawel salmeron is a 77 year old male established patient who presents with the chief complaint. Presents today for evaluation of problematic toenails and feet in general. They relate chronic thickening and deformity to their toenails that has not responded to self-trimming, topical zsqk-zfw-wwikuvr anti-fungal therapy, foot soaks, and other similar conservative treatments. Nails are painful with catching on shoegear and socks. Denies any recent foot injury or infection. Claudication symptoms: No Burning symptoms: No Paresthesia: Subjective numbness to the left lower extremity consistent with his previous surgical procedures performed through [facility] in [facility] Patient presents for further evaluation and treatment options. Too Andres DPM [address] [place], [phone], [facility] 07/24/2022 10:35:54 10/23/2022 text/html HPI Notes: Pawel salmeron is a 77 year old male established patient who presents with the chief complaint. Presents today for evaluation of problematic toenails and feet in general. They relate chronic thickening and deformity to their toenails that has not responded to self-trimming, topical vybn-hfu-wppozmi anti-fungal therapy, foot soaks, and other similar conservative treatments. Nails are painful with catching on shoegear and socks. Denies any recent foot injury or infection. Claudication symptoms: No Burning symptoms: No Paresthesia: Subjective numbness to the left lower extremity consistent with his previous surgical procedures performed through [facility] Patient presents for further evaluation and treatment options. Too Andres DPM [address] [place], [phone], [facility] 10/23/2022 11:45:19
--- OUTSIDE RECORDS SUMMARY | 2023-10-10 14:52 | XMS_ITS | Continuity of Care Document ---
Author Name [facility] Organization [facility] Care Team Providers Care Mri Supervisor Name Role Phone [facility] Unavailable Unavailable Problems Combined list of problems from Department of Defense and Veterans Affairs facilities. It does not include entries that were removed or entered in error. Problem Status Onset Date Problem Type Date of Resolution Comments Source CVD - Cerebrovascular Disease ([facility] [id number]) Active 03/19/20 20 Condition May 01, 2020 Entered By: YOAV CHAUHAN Comment: 03/19/20: L MCA CVA, Admit ANW. Cardio-embol ic d/t Warfarin DC [facility] CAD - Coronary Artery Disease ([facility] [id number]) Active 01/27/20 20 Condition Mar 13, 2020 Entered By: YOAV CHAUHAN Comment: 01/27/20: LAD and Dx stented w/SATHYA at [facility]. Plavix +ASA thru 01/26/21 [facility] Peripheral arterial insufficiency Active 01/21/20 20 Condition Mar 13, 2020 Entered By: YOAV CHAUHAN Comment: 01/21/20: L femoral Art occlusion per [facility]-->Fem -Tibial bypass planned [facility] Allergic rhinitis (SNOMED CT 62325618) Active Condition [facility] Atrial fibrillation (SNOMED CT 74444307) Active Condition Apr 26, 2015 Entered By: YOAV CHAUHAN Comment: Warfarin through Miryam Rodriguez [facility] Co-Managed Care Active Condition Dec 25, 2017 Entered By: YOAV CHAUHAN Comment: Dr Garcia, Michael Eden, F: [phone] , [facility] COPD - Chronic Obstructive Pulmonary Disease ([facility] [id number]) Active Condition Dec 25, 2017 Entered By: YOAV CHAUHAN Comment: Mometasone & Albuterol MDI's [facility] Dunlap of toe Active Condition Sep 08, 2019 Entered By: YOAV CHAUHAN Comment: R middle toe [facility] Current smoker Active Condition Apr 082015 Entered By: YOAV CHAUHAN Comment: Cigars, not cigarettes [facility] Essential hypertension (SNOMED CT 55757390) Active Condition [facility] Glucose intolerance Active Condition [facility] Nocturia due to benign prostatic hypertrophy Active Condition [facility] Health Maintenance (ICD-9-CM V65.9) Inactive Condition 04/26/2015 [facility] Diagnosis: ICD-10-CM Z00.01 Encounter for general adult medical exam w abnormal findings [facility] Diagnosis: 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 [facility] Diagnosis: ICD-10-CM Z76.0 Encounter for issue of repeat prescription Active Diagnosis [facility] Medications Combined list of outpatient [...] Jul 17, 2023 2 Jul 17, 2024 [id number] Sep 24, 2023 AFRICA CHAUHAN [facility] RESPIR ATORY (INHAL ATION) ACTIVE 07/17/2024 [id number] AFRICA CHAUHNA 2023 2 [facility] ALBUTEROL 90MCG/ACTUA T (CFC-F) INHL,ORAL,8 .5GM DOSE COUNTER ALBUTERO L 90MCG/AC TUAT (CFC-F) INHL,ORA L,8.5GM DOSE COUNTER Disconti nued INHALE 2 PUFFS BY INHALATI ON FOUR TIMES A DAY NEEDED FOR SHORTNES S OF BREATH FOR SHORTNES S OF BREATH August 07, 2022 2 August 08, 2023 [id number] August 07, 2022 AFRICA CHAUHAN [facility] RESPIR ATORY (INHAL ATION) DISCONT INUED 08/08/2023 [id number] AFRICA CHAUHAN 2022 2 [facility] APIXABAN 5MG TAB APIXABAN 5MG TAB Active TAKE ONE TABLET BY MOUTH EVERY 12 HOURS TO PREVENT BLOOD CLOTS AND STROKE (ELIQUIS ) May 29, 2023 180 May 29, 2024 [id number] C September 04, 2023 ZOFIA GARCIA [facility] ORAL ACTIVE 05/29/2024 [id number] MARIANO GARCIA 2023 180 [facility] APIXABAN 5MG TAB APIXABAN 5MG TAB Disconti nued TAKE ONE TABLET BY MOUTH EVERY 12 HOURS TO PREVENT BLOOD CLOTS AND STROKE (ELIQUIS ) May 08, 2022 180 May 09, 2023 [id number] Mar 20, 2023 ZOFIA GARCIA [facility] ORAL DISCONT INUED 05/09/2023 [id number] MARIANO GARCIA 2022 180 [facility] CHOLECALCIF JONNA 25MCG (1,000UNIT) TAB CHOLECAL CIFEROL 25MCG (1,000UN IT) TAB Non-VA TAKE FIVE TABLETS BY MOUTH QOD Feb 12, 2017 Non-VA Document ed by: AFRICA CHAUHAN Document ed at: [facility] ORAL ACTIVE AFRICA CHAUHAN 2016 [facility] FLUOCINONID E 0.1% CREAM,TOP FLUOCINO NIDE 0.1% CREAM,TO P Active APPLY A THIN LAYER TOPICALL Y TWICE A DAY NEEDED FOR RASH FOR RASH Dec 12, 2022 60 Dec 13, 2023 [id number] Dec 13, 2022 AFRICA CHAUHAN [facility] TOPICA L ACTIVE 12/13/2023 [id number] AFRICA CHAUHAN 2022 60 [place] [facility] FLUTICASONE 250MCG/SALM ETEROL 50MCG INHL,ORAL,D ISKUS,60 FLUTICAS ONE 250MCG/S ALMETERO L 50MCG INHL,ORA L,DISKUS ,60 Active INHALE 1 PUFF BY INHALATI ON TWICE A DAY FOR COPD FOR COPD Jul 17, 2023 3 Jul 17, 2024 [id number] Jul 18, 2023 [facility] (INHAL ATION) ACTIVE 07/17/2024 [id number] AFRICA CHAUHAN 2023 3 [place] [facility] FLUTICASONE 250MCG/SALM ETEROL 50MCG INHL,ORAL,D ISKUS,60 FLUTICAS ONE 250MCG/S ALMETERO L 50MCG INHL,ORA L,DISKUS ,60 Disconti nued INHALE 1 PUFF BY INHALATI ON TWICE A DAY FOR COPD THIS REPLACES YOUR MOMETASO NE FOR COPD August 07, 2022 3 August 08, 2023 [id number] Apr 24, 2023 AFRICA CHAUHANO L[place] [facility] RESPIR ATORY (INHAL ATION) DISCONT INUED 08/08/2023 [id number] [facility]FRICA [facility]AUHAN 2022 3 [facility] FUROSEMIDE 20MG TAB FUROSEMI DE 20MG TAB Active TAKE ONE TABLET BY MOUTH THREE TIMES A WEEK FOR HEART FAILURE FOR HEART FAILURE Feb 24, 2023 39 Feb 25, 2024 [id number] Feb 28, 2023 SASHA DONAHUE [facility] ORAL ACTIVE 02/25/2024 [id number] Hong DONAHUE A 2022 39 [facility] FUROSEMIDE 20MG TAB FUROSEMI DE 20MG TAB Disconti nued TAKE ONE TABLET BY MOUTH EVERY OTHER DAY FOR HEART FAILURE FOR HEART FAILURE August 12, 2022 45 August 13, 2023 [id number] Nov 08, 2022 AFRICA CHAUHANAPO LIS [facility] ORAL DISCONT INUED (EDIT) 08/13/2023 [id number] AFRICA CHAUHAN 2022 45 [place] [facility] FUROSEMIDE 20MG TAB FUROSEMI DE 20MG TAB Disconti nued TAKE ONE TABLET BY MOUTH EVERY MORNING FOR HEART FAILURE FOR HEART FAILURE August 07, 2022 90 August 08, 2023 [id number] August 07, 2022 AFRICA CHAUHAN [facility] ORAL DISCONT INUED 08/08/2023 [id number] AFRICA CHAUHAN 2022 90 [place] [facility] HYDROCHLORO THIAZIDE 12.5MG TAB HYDROCHL OROTHIAZ LAURA 12.5MG TAB Disconti nued TAKE ONE TABLET BY MOUTH EVERY DAY FOR BLOOD PRESSURE FOR BLOOD PRESSURE August 07, 2022 90 August 08, 2023 [id number] August 07, 2022 [facility] ORAL DISCONT INUED 08/08/2023 [id number] AFRICA CHAUHAN 2022 90 [place] [facility] METOPROLOL SUCCINATE 50MG TAB,SA METOPROL OL SUCCINAT E 50MG TAB,SA Disconti nued TAKE THREE TABLETS BY MOUTH EVERY DAY FOR BLOOD PRESSURE FOR BLOOD PRESSURE August 07, 2022 270 August 08, 2023 [id number] Sep 23, 2022 [facility] DISCONT INUED 08/08/2023 [id number] AFRICA CHAUHAN 2022 270 [facility] METOPROLOL TARTRATE 100MG TAB METOPROL OL TARTRATE 100MG TAB Active TAKE ONE TABLET BY MOUTH TWICE A DAY FOR BLOOD PRESSURE FOR BLOOD PRESSURE Dec 12, 2022 180 Dec 13, 2023 [id number] Sep 24, 2023 AFRICA CHAUHAN [facility] ORAL ACTIVE 12/13/2023 [id number] AFRICA CHAUHAN 2022 180 [facility] NIFEDIPINE (EQV-CC) 60MG TAB,SA NIFEDIPI NE (EQV-CC) 60MG TAB,SA Disconti nued TAKE ONE TABLET BY MOUTH EVERY DAY FOR BLOOD PRESSURE FOR BLOOD PRESSURE August 07, 2022 90 August 08, 2023 [id number] Feb 20, 2023 AFRICA CHAUHAN [facility] ORAL DISCONT INUED BY PROVIDE R 08/08/2023 [id number] AFRICA CHAUHAN 2022 90 [place] [facility] NIFEDIPINE (EQV-CC) 60MG TAB,SA NIFEDIPI NE (EQV-CC) 60MG TAB,SA Disconti nued TAKE ONE TABLET BY MOUTH EVERY DAY FOR BLOOD PRESSURE FOR BLOOD PRESSURE Jun 13, 2022 90 Sep 11, 2022 [id number] August 19, 2022 AFRICA CHAUHAN [facility] ORAL DISCONT INUED 09/11/2022 [id number] AFRICA CHAUHAN 2022 90 [facility] NIFEDIPINE (EQV-CC) 90MG TAB,SA NIFEDIPI NE (EQV-CC) 90MG TAB,SA Active TAKE ONE TABLET BY MOUTH EVERY DAY FOR BLOOD PRESSURE FOR BLOOD PRESSURE Jul 17, 2023 90 Jul 17, 2024 [id number] Sep 19, 2023 AFRICA CHAUHAN [facility] ORAL ACTIVE 07/17/2024 [id number] AFRICA CHAUHAN 2023 90 [facility] NIFEDIPINE (EQV-CC) 90MG TAB,SA NIFEDIPI NE (EQV-CC) 90MG TAB,SA Disconti nued TAKE ONE TABLET BY MOUTH EVERY DAY FOR BLOOD PRESSURE INCREASE D DOSE PER CO-MANAG ED CARE INCREASE D DOSE PER CO-MANAG ED CARE FOR BLOOD PRESSURE Dec 12, 2022 90 Dec 13, 2023 [id number] Jul 01, 2023 AFRICA CHAUHAN [facility] ORAL DISCONT INUED 12/13/2023 [id number] AFRICA CHAUHAN 2022 90 [facility] POTASSIUM CHLORIDE 10MEQ TAB,SA POTASSIU M CHLORIDE 10MEQ TAB,SA Active TAKE ONE TABLET BY MOUTH THREE TIMES A WEEK FOR POTASSIU M SUPPLEME NT TAKE WITH FUROSEMI DE FOR POTASSIU M SUPPLEME NT Feb 24, 2023 39 Feb 25, 2024 [id number] Feb 28, 2023 [facility] 02/25/2024 [id number] Hong DONAHUE MUNIRAJALYN Parra 2022 39 [facility] POTASSIUM CHLORIDE 10MEQ TAB,SA POTASSIU M CHLORIDE 10MEQ TAB,SA Disconti nued TAKE ONE TABLET BY MOUTH EVERY OTHER DAY FOR POTASSIU M SUPPLEME NT FOR POTASSIU M SUPPLEME NT August 12, 2022 45 August 13, 2023 [id number] Nov 08, 2022 AFRICA CHAUHAN [facility] ORAL DISCONT INUED (EDIT) 08/13/2023 [id number] AFRICA CHAUHAN 2022 45 [facility] POTASSIUM CHLORIDE 10MEQ TAB,SA POTASSIU M CHLORIDE 10MEQ TAB,SA Disconti nued TAKE ONE TABLET BY MOUTH EVERY DAY FOR CONGESTI VE HEART FAILURE FOR POTASSIU M SUPPLEME NT August 07, 2022 90 August 08, 2023 [id number] August 07, 2022 AFRICA CHAUHAN [facility] ORAL DISCONT INUED 08/08/2023 [id number] AFRICA CHAUHAN 2022 90 [facility] POTASSIUM CHLORIDE 10MEQ TAB,SA POTASSIU M CHLORIDE 10MEQ TAB,SA Disconti nued TAKE ONE TABLET BY MOUTH EVERY DAY FOR CONGESTI VE HEART FAILURE Nov 15, 2021 90 Nov 16, 2022 [id number] August 15, 2022 AFRICA CHAUHAN [facility] ORAL DISCONT INUED 11/16/2022 [id number] AFRICA CHAUHAN 2021 90 [facility] ROSUVASTATI N CA 20MG TAB ROSUVAST ATIN CA 20MG TAB Active TAKE ONE TABLET BY MOUTH AT BEDTIME FOR CORONARY ARTERY DISEASE FOR CORONARY ARTERY DISEASE Jul 17, 2023 90 Jul 17, 2024 [id number] Sep 24, 2023 AFRICA CHAUHAN [facility] ORAL ACTIVE 07/17/2024 [id number] AFRICA CHAUHAN 2023 90 [facility] ROSUVASTATI N CA 20MG TAB ROSUVAST ATIN CA 20MG TAB Disconti nued TAKE ONE TABLET BY MOUTH AT BEDTIME FOR CORONARY ARTERY DISEASE FOR CORONARY ARTERY DISEASE August 07, 2022 90 August 08, 2023 [id number] Jun 09, 2023 AFRICA CHAUHAN [facility] ORAL DISCONT INUED 08/08/2023 [id number] AFRICA CHAUHAN 2022 90 [facility] TAMSULOSIN HCL 0.4MG CAP TAMSULOS IN HCL 0.4MG CAP Active TAKE ONE CAPSULE BY MOUTH EVERY EVENING FOR PROSTATE FOR PROSTATE Jul 17, 2023Jul 17, 2024 [id number] Oct 05, 2023 AFRICA CHAUHAN [facility] ORAL ACTIVE 07/17/2024 [id number] 4 AFRICA CHAUHAN 2023 30 [facility] Allergies, Adverse Reactions, Alerts Combined list of allergies from Department of Defense and Veterans Affairs facilities. It does not include entries that were removed or entered in error. Substance Category Reaction Severity Reaction type Status Date Reported Comments Source LISINOPRIL Propensity to adverse reactions to drug (finding) Cough active 0 [facility] Immunizations Combined list of available immunizations from the Department of Defense and Veterans Affairs facilities. 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 Status Comments Source COVID-19 ([employer] (ServiceCEO)), MRNA, LNP-S, BIVALENT, PF, 30 MCG/0.3 ML DOSE 2022 300 complet ed [facility] COVID-19 (PFIZER), MRNA, LNP-S, PF, 30 MCG/0.3 ML DOSE, JAMES-SUCROSE (AGES 12+ YEARS) 2021 217 complet ed [facility] COVID-19 ([employer] (ServiceCEO)), MRNA, LNP-S, PF, 30 MCG/0.3 ML DOSE 2020 208 complet ed [facility] ZOSTER RECOMBINANT 2 2020 187 complet ed [facility] INFLUENZA VACCINE, QUADRIVALENT, ADJUVANTED 2020 205 complet ed [facility] INFLUENZA, UNSPECIFIED FORMULATION 2020 88 complet ed [facility] ZOSTER RECOMBINANT 1 2020 187 complet [facility] COVID-19 (PFIZER), MRNA, LNP-S, PF, 30 [...] PPV23 2016 33 complet ed [employer] , [id number], 06/03/18 [facility] TD (ADULT), [...] 2009 109 complet ed [employer]ck,093 02, 011 [facility] TDAP 2009 [...] Jul 17, 2023 04:23 PM Reporting Lab: [facility] [address] Performing Lab: [facility] [address] [facility] URINALYS IS SPECIFIC GRAVITY OF URINE 1.006 1.003 - 1.035 07/16 Specimen Type: URINE No comment entered. Ordering Provider: TERRENCE CHAUHAN Report Released Date/Time: Jul 17, 2023 04:23 PM Reporting Lab: [facility] [phone] Performing Lab: [facility] [phone] [facility] URINALYS IS BILIRUBIN. TOTAL [PRESENCE] IN URINE BY TEST STRIP NEGATIVE 07/16 Specimen Type: URINE No comment entered. Ordering Provider: TERRENCE CHAUHAN Report Released Date/Time: Jul 17, 2023 04:23 PM Reporting Lab: [facility] [address] Performing Lab: [facility] [address] [facility] URINALYS IS KETONES [MASS/VOLU ME] IN URINE BY TEST STRIP NEGATIVE 07/16 Specimen Type: URINE No comment entered. Ordering Provider: TERRENCE CHAUHAN Report Released Date/Time: Jul 17, 2023 04:23 PM Reporting Lab: [facility] [phone] Performing Lab: [facility] [address] [place] [facility] URINALYS IS GLUCOSE [MASS/VOLU ME] IN URINE BY TEST STRIP NEGATIVE mg/dL 07/16 Specimen Type: URINE No comment entered. Ordering Provider: TERRENCE CHAUHAN Report Released Date/Time: Jul 17, 2023 04:23 PM Reporting Lab: [facility] [address] Performing Lab: [facility] [address] [place] [facility] URINALYS IS PROTEIN [MASS/VOLU ME] IN URINE BY TEST STRIP NEGATIVE mg/dL 07/16 Specimen Type: URINE No comment entered. Ordering Provider: TERRENCE CHAUHAN Report Released Date/Time: Jul 17, 2023 04:23 PM Reporting Lab: [facility] [address] Performing Lab: [facility] [address] [place] [facility] URINALYS IS PH OF URINE BY TEST STRIP 7.0 5.0 - 8.0 07/16 Specimen Type: URINE No comment entered. Ordering Provider: TERRENCE CHAUHAN Report Released Date/Time: Jul 17, 2023 04:23 PM Reporting Lab: [facility] [phone] Performing Lab: [facility] [phone] [facility] URINALYS IS LEUKOCYTES [#/AREA] IN URINE SEDIMENT BY MICROSCOPY HIGH POWER FIELD <1/[HPF] 0 - 7 07/16 Specimen Type: URINE No comment entered. Ordering Provider: TERRENCE CHAUHAN Report Released Date/Time: Jul 17, 2023 04:23 PM Reporting Lab: [facility] [address] Performing Lab: [facility] [address] [place] [facility] URINALYS IS BACTERIA [PRESENCE] IN URINE SEDIMENT BY LIGHT MICROSCOPY NONE SEEN 07/16 Specimen Type: URINE No comment entered. Ordering Provider: TERRENCE CHAUHAN Report Released Date/Time: Jul 17, 2023 04:23 PM Reporting Lab: [facility] [address] Performing Lab: [facility] [address] [place] [facility] URINALYS IS ERYTHROCYT ES [#/AREA] IN URINE SEDIMENT BY MICROSCOPY HIGH POWER FIELD <1/[HPF] 0 - 3 07/16 Specimen Type: URINE No comment entered. Ordering Provider: TERRENCE CHAUHAN Report Released Date/Time: Jul 17, 2023 04:23 PM Reporting Lab: [facility] [address] Performing Lab: [facility] [address] [place] [facility] URINALYS IS APPEARANCE OF URINE CLEAR 07/16 Specimen Type: URINE No comment entered. Ordering Provider: TERRENCE CHAUHAN Report Released Date/Time: Jul 17, 2023 04:23 PM Reporting Lab: [facility] [phone] Performing Lab: [facility] [phone] [place] [facility] URINALYS IS EPITHELIAL CELLS.SQUA MOUS [#/AREA] IN URINE SEDIMENT BY MICROSCOPY HIGH POWER FIELD NONE SEEN/[HP F] 07/16 Specimen Type: URINE No comment entered. Ordering Provider: TERRENCE CHAUHAN Report Released Date/Time: Jul 17, 2023 04:23 PM Reporting Lab: [facility] [address] Performing Lab: [facility] [address] [place] [facility] URINALYS IS HEMOGLOBIN [PRESENCE] IN URINE BY TEST STRIP NEGATIVE 07/16 Specimen Type: URINE No comment entered. Ordering Provider: TERRENCE CHAUHAN Report Released Date/Time: Jul 17, 2023 04:23 PM Reporting Lab: [facility] [address] Performing Lab: [facility] [address] [place] [facility] URINALYS IS NITRITE [PRESENCE] IN URINE BY TEST STRIP NEGATIVE 07/16 Specimen Type: URINE No comment entered. Ordering Provider: TERRENCE CHAUHAN Report Released Date/Time: Jul 17, 2023 04:23 PM Reporting Lab: [facility] [address] Performing Lab: [facility] [address] [place] [facility] URINALYS IS LEUKOCYTE ESTERASE [PRESENCE] IN URINE BY TEST STRIP NEGATIVE 07/16 Specimen Type: URINE No comment entered. Ordering Provider: TERRENCE CHAUHAN Report Released Date/Time: Jul 17, 2023 04:23 PM Reporting Lab: [facility] [address] Performing Lab: [facility] [phone] [facility] HEMOGLOB IN A1C HEMOGLOBIN A1C/HEMOGL OBIN.TOTAL [...] August 07, 2022 02:21 PM Reporting Lab: [facility] [address] Performing Lab: [facility] [address] [facility] CBC LEUKOCYTES [#/VOLUME] IN BLOOD BY AUTOMATED COUNT 8.72 10*3/uL 4.0 - 11.0 07/16 Specimen Type: BLOOD No comment entered. Ordering Provider: TERRENCE CHAUHAN Report Released Date/Time: August 07, 2022 02:21 PM Reporting Lab: [facility] [address] Performing Lab: [facility] [address] [facility] CBC ERYTHROCYT ES [#/VOLUME] IN BLOOD BY AUTOMATED COUNT 4.11 10*6/uL 4.6 - 6.2 07/16 L Specimen Type: BLOOD No comment entered. Ordering Provider: TERRENCE CHAUHAN Report Released Date/Time: August 07, 2022 02:21 PM Reporting Lab: [facility] [address] Performing Lab: [facility] [address] [place] [facility] CBC HEMOGLOBIN [MASS/VOLU ME] IN BLOOD 13.4 g/dL 13.5 - 17.9 07/16 L Specimen Type: BLOOD No comment entered. Ordering Provider: TERRENCE CHAUHAN Report Released Date/Time: August 07, 2022 02:21 PM Reporting Lab: [facility] [address] Performing Lab: [facility] [address] [place] [facility] CBC HEMATOCRIT [VOLUME FRACTION] OF BLOOD BY AUTOMATED COUNT 39.7 41 - 54 07/16 L Specimen Type: BLOOD No comment entered. Ordering Provider: TERRENCE CHAUHAN Report Released Date/Time: August 07, 2022 02:21 PM Reporting Lab: [facility] [address] Performing Lab: [facility] [address] [place] [facility] CBC MCV [ENTITIC VOLUME] BY AUTOMATED COUNT 96.6 fL 80 - 100 07/16 Specimen Type: BLOOD No comment entered. Ordering Provider: TERRENCE CHAUHAN Report Released Date/Time: August 07, 2022 02:21 PM Reporting Lab: [facility] [address] Performing Lab: [facility] [address] [place] [facility] CBC MCH [ENTITIC MASS] BY AUTOMATED COUNT 32.6 pg 27 - 33 07/16 Specimen Type: BLOOD No comment entered. Ordering Provider: TERRENCE CHAUHAN Report Released Date/Time: August 07, 2022 02:21 PM Reporting Lab: [facility] [address] Performing Lab: [facility] [address] [place] [facility] CBC MCHC [MASS/VOLU ME] BY AUTOMATED COUNT 33.8 g/dL 32.0 - 37.5 07/16 Specimen Type: BLOOD No comment entered. Ordering Provider: TERRENCE CHAUHAN Report Released Date/Time: August 07, 2022 02:21 PM Reporting Lab: [facility] [address] Performing Lab: [facility] [address] [place] [facility] CBC PLATELETS [#/VOLUME] IN BLOOD BY AUTOMATED COUNT 159 10*3/uL 150 - 400 07/16 Specimen Type: BLOOD No comment entered. Ordering Provider: TERRENCE CHAUHAN Report Released Date/Time: August 07, 2022 02:21 PM Reporting Lab: [facility] [address] Performing Lab: [facility] [address] [place] [facility] CBC PLATELET MEAN VOLUME [ENTITIC VOLUME] IN BLOOD BY AUTOMATED COUNT 9.6 fL 7.4 - 10.4 07/16 Specimen Type: BLOOD No comment entered. Ordering Provider: TERRENCE CHAUHAN Report Released Date/Time: August 07, 2022 02:21 PM Reporting Lab: [facility] [address] Performing Lab: [facility] [address] [place] [facility] CBC ERYTHROCYT E DISTRIBUTI ON WIDTH [RATIO] BY AUTOMATED COUNT 14.1 11.5 - 14.5 07/16 Specimen Type: BLOOD No comment entered. Ordering Provider: TERRENCE CHAUHAN Report Released Date/Time: August 07, 2022 02:21 PM Reporting Lab: [facility] [address] Performing Lab: [facility] [address] [place] [facility] BASIC METABOLI C PANEL+MG CREATININE [MASS/VOLU ME] IN SERUM OR PLASMA 1.3 mg/dL 0.7 - 1.2 07/16 H Specimen Type: PLASMA No comment entered. Ordering Provider: TERRENCE CHAUHAN Report Released Date/Time: August 07, 2022 02:21 PM Reporting Lab: [facility] [address] Performing Lab: [facility] [address] [place] [facility] BASIC METABOLI C PANEL+MG UREA NITROGEN [MASS/VOLU ME] IN SERUM OR PLASMA 15 mg/dL 8 - 26 07/16 Specimen Type: PLASMA No comment entered. Ordering Provider: TERRENCE CHAUHAN Report Released Date/Time: August 07, 2022 02:21 PM Reporting Lab: [facility] [address] Performing Lab: [facility] [address] [place] [facility] BASIC METABOLI C PANEL+MG GLUCOSE [MASS/VOLU ME] IN SERUM OR PLASMA 84 mg/dL 70 - 100 07/16 Specimen Type: PLASMA No comment entered. Ordering Provider: TERRENCE CHAUHAN Report Released Date/Time: August 07, 2022 02:21 PM Reporting Lab: [facility] [phone] Performing Lab: [facility] [phone] [place] [facility] PANEL+MG SODIUM [MOLES/VOL UME] IN SERUM OR PLASMA 137 mmol/L 136 - 145 07/16 Specimen Type: PLASMA No comment entered. Ordering Provider: TERRENCE CHAUHAN Report Released Date/Time: August 07, 2022 02:21 PM Reporting Lab: [facility] [phone] Performing Lab: [facility] [phone] [place] [facility] PANEL+MG POTASSIUM [MOLES/VOL UME] IN SERUM OR PLASMA 4.6 mmol/L 3.5 - 5.1 07/16 Specimen Type: PLASMA No comment entered. Ordering Provider: TERRENCE CHAUHAN Report Released Date/Time: August 07, 2022 02:21 PM Reporting Lab: [facility] [phone] Performing Lab: [facility] [phone] [place] [facility] PANEL+MG CHLORIDE [MOLES/VOL UME] IN SERUM OR PLASMA 105 mmol/L 98 - 107 07/16 Specimen Type: PLASMA No comment entered. Ordering Provider: TERRENCE CHAUHAN Report Released Date/Time: August 07, 2022 02:21 PM Reporting Lab: [facility] [phone] Performing Lab: [facility] [phone] [place] [facility] PANEL+MG CARBON DIOXIDE, TOTAL [MOLES/VOL UME] IN SERUM OR PLASMA 24 mmol/L 22 - 29 07/16 Specimen Type: PLASMA No comment entered. Ordering Provider: TERRENCE CHAUHAN Report Released Date/Time: August 07, 2022 02:21 PM Reporting Lab: [facility] [phone] Performing Lab: [facility] [facility] [address] [place] [facility] BASIC METABOLI C PANEL+MG CALCIUM [MASS/VOLU ME] IN SERUM OR PLASMA 8.9 mg/dL 8.4 - 10.2 07/16 Specimen Type: PLASMA No comment entered. Ordering Provider: TERRENCE CHAUHAN Report Released Date/Time: August 07, 2022 02:21 PM Reporting Lab: [facility] [address] Performing Lab: [facility] [address] [place] [facility] BASIC METABOLI C PANEL+MG MAGNESIUM [MASS/VOLU ME] IN SERUM OR PLASMA 2.1 mg/dL 1.6 - 2.6 07/16 Specimen Type: PLASMA No comment entered. Ordering Provider: TERRENCE CHAUHAN Report Released Date/Time: August 07, 2022 02:21 PM Reporting Lab: [facility] [address] Performing Lab: [facility] [address] [place] [facility] BASIC METABOLI C PANEL+MG ANION GAP IN SERUM OR PLASMA 8 mmol/L 5 - 15 07/16 Specimen Type: PLASMA No comment entered. Ordering Provider: TERRENCE CHAUHAN Report Released Date/Time: August 07, 2022 02:21 PM Reporting Lab: [facility] [address] Performing Lab: [facility] [address] [place] [facility] BASIC METABOLI C PANEL+MG GLOMERULAR FILTRATION RATE/1.73 SQ M.PREDICTE D [VOLUME RATE/AREA] IN SERUM, PLASMA OR BLOOD BY CREATININE -BASED FORMULA (CKD-EPI 2020) 56 60 07/16 L Specimen Type: PLASMA No comment entered. Ordering Provider: TERRENCE CHAUHAN Report Released Date/Time: August 07, 2022 02:21 PM Reporting Lab: [facility] [address] Performing Lab: [facility] [address] [place] [facility] LIVER FUNCTION TESTS BILIRUBIN. TOTAL [MASS/VOLU ME] IN SERUM OR PLASMA 0.8 mg/dL 0.2 - 1.2 07/16 Specimen Type: PLASMA No comment entered. Ordering Provider: TERRENCE CHAUHAN Report Released Date/Time: August 07, 2022 02:21 PM Reporting Lab: [facility] [address] Performing Lab: [facility] [address] [place] [facility] LIVER FUNCTION TESTS ALKALINE PHOSPHATAS E [ENZYMATIC ACTIVITY/V OLUME] IN SERUM OR PLASMA 52 U/L 40 - 150 07/16 Specimen Type: PLASMA No comment entered. Ordering Provider: TERRENCE CHAUHAN Report Released Date/Time: August 07, 2022 02:21 PM Reporting Lab: [facility] [address] Performing Lab: [facility] [address] [place] [facility] LIVER FUNCTION TESTS ALANINE AMINOTRANS FERASE [ENZYMATIC ACTIVITY/V OLUME] IN SERUM OR PLASMA 20 U/L <55 - 55 07/16 Specimen Type: PLASMA No comment entered. Ordering Provider: TERRENCE CHAUHAN Report Released Date/Time: August 07, 2022 02:21 PM Reporting Lab: [facility] [address] Performing Lab: [facility] [address] [place] [facility] LIVER FUNCTION TESTS ASPARTATE AMINOTRANS FERASE [ENZYMATIC ACTIVITY/V OLUME] IN SERUM OR PLASMA 19 U/L <34 - 34 07/16 Specimen Type: PLASMA No comment entered. Ordering Provider: TERRENCE CHAUHAN Report Released Date/Time: August 07, 2022 02:21 PM Reporting Lab: [facility] [address] Performing Lab: [facility] [address] [place] [facility] LIVER FUNCTION TESTS GAMMA GLUTAMYL TRANSFERAS E [ENZYMATIC ACTIVITY/V OLUME] IN SERUM OR PLASMA 38 U/L <64 - 64 07/16 Specimen Type: PLASMA No comment entered. Ordering Provider: TERRENCE CHAUHAN Report Released Date/Time: August 07, 2022 02:21 PM Reporting Lab: [place] [id number] Performing Lab: [place] [address] [place] [facility] PSA PROSTATE SPECIFIC AG [MASS/VOLU ME] IN SERUM OR PLASMA 3.84 ng/mL <4.00 - 4.00 07/16 Specimen Type: SERUM No comment entered. Ordering Provider: TERRENCE CHAUHAN Report Released Date/Time: August 07, 2022 02:21 PM Reporting Lab: [place] [address] Performing Lab: [place] [address] [place] [facility] CREATINI NE(INCLU SATHYA EGFR) CREATININE [MASS/VOLU ME] IN SERUM OR PLASMA 1.2 mg/dL 0.7 - 1.2 04/16 Specimen Type: PLASMA No comment entered. Ordering Provider: HUYEN HYLTON Report Released Date/Time: Mar 07, 2023 02:00 PM Reporting Lab: [place] [address] Performing Lab: [place] [address] [place] [facility] CREATINI NE(INCLU SATHYA EGFR) GLOMERULAR FILTRATION RATE/1.73 SQ M.PREDICTE D [VOLUME RATE/AREA] IN SERUM, PLASMA OR BLOOD BY CREATININE -BASED FORMULA (CKD-EPI 2020) 62 60 04/16 Specimen Type: PLASMA No comment entered. Ordering Provider: HUYEN HYLTON Report Released Date/Time: Mar 07, 2023 02:00 PM Reporting Lab: [address] Performing Lab: [address] [facility] CBC LEUKOCYTES [#/VOLUME] IN BLOOD BY AUTOMATED COUNT 8.06 10*3/uL 4.0 - 11.0 04/16 Specimen Type: BLOOD No comment entered. Ordering Provider: HUYEN HYLTON Report Released Date/Time: Mar 07, 2023 02:00 PM Reporting Lab: [place] [address] Performing Lab: [place] [address] [place] [facility] CBC ERYTHROCYT ES [#/VOLUME] IN BLOOD BY AUTOMATED COUNT 4.03 10*6/uL 4.6 - 6.2 04/16 L Specimen Type: BLOOD No comment entered. Ordering Provider: HUYEN HYLTON Report Released Date/Time: Mar 07, 2023 02:00 PM Reporting Lab: [place] [address] Performing Lab: [place] [address] [place] [facility] CBC HEMOGLOBIN [MASS/VOLU ME] IN BLOOD 13.1 g/dL 13.5 - 17.9 04/16 L Specimen Type: BLOOD No comment entered. Ordering Provider: HUYEN HYLTON Report Released Date/Time: Mar 07, 2023 02:00 PM Reporting Lab: [place] [address] Performing Lab: [place] [address] [place] [facility] CBC HEMATOCRIT [VOLUME FRACTION] OF BLOOD BY AUTOMATED COUNT 38.9 41 - 54 04/16 L Specimen Type: BLOOD No comment entered. Ordering Provider: HUYEN HYLTON Report Released Date/Time: Mar 07, 2023 02:00 PM Reporting Lab: [place] [address] Performing Lab: [place] [address] [facility] CBC MCV [ENTITIC VOLUME] BY AUTOMATED COUNT 96.5 fL 80 - 100 04/16 Specimen Type: BLOOD No comment entered. Ordering Provider: HUYEN HYLTON Report Released Date/Time: Mar 07, 2023 02:00 PM Reporting Lab: [place] [address] Performing Lab: [place] [address] [place] [facility] CBC MCH [ENTITIC MASS] BY AUTOMATED COUNT 32.5 pg 27 - 33 04/16 Specimen Type: BLOOD No comment entered. Ordering Provider: HUYEN HYLTON Report Released Date/Time: Mar 07, 2023 02:00 PM Reporting Lab: [facility] [address] Performing Lab: [facility] [address] [place] [facility] CBC MCHC [MASS/VOLU ME] BY AUTOMATED COUNT 33.7 g/dL 32.0 - 37.5 04/16 Specimen Type: BLOOD No comment entered. Ordering Provider: HUYEN HYLTON Report Released Date/Time: Mar 07, 2023 02:00 PM Reporting Lab: [facility] [address] Performing Lab: [facility] [address] [place] [facility] CBC PLATELETS [#/VOLUME] IN BLOOD BY AUTOMATED COUNT 157 10*3/uL 150 - 400 04/16 Specimen Type: BLOOD No comment entered. Ordering Provider: HUYEN HYLTON Report Released Date/Time: Mar 07, 2023 02:00 PM Reporting Lab: [facility] [address] Performing Lab: [facility] [address] [facility] CBC PLATELET MEAN VOLUME [ENTITIC VOLUME] IN BLOOD BY AUTOMATED COUNT 9.7 fL 7.4 - 10.4 04/16 Specimen Type: BLOOD No comment entered. Ordering Provider: HUYEN HYLTON Report Released Date/Time: Mar 07, 2023 02:00 PM Reporting Lab: [facility] [address] Performing Lab: [facility] [address] [facility] CBC ERYTHROCYT E DISTRIBUTI ON WIDTH [RATIO] BY AUTOMATED COUNT 14.5 11.5 - 14.5 04/16 Specimen Type: BLOOD No comment entered. Ordering Provider: HUYEN HYLTON Report Released Date/Time: Mar 07, 2023 02:00 PM Reporting Lab: [facility] [address] Performing Lab: [facility] [address] [place] [facility] AST/SGOT ASPARTATE AMINOTRANS FERASE [ENZYMATIC ACTIVITY/V OLUME] IN SERUM OR PLASMA 22 U/L <34 - 34 04/16 Specimen Type: PLASMA No comment entered. Ordering Provider: HUYEN HYLTON Report Released Date/Time: Mar 07, 2023 02:00 PM Reporting Lab: [facility] [address] Performing Lab: [facility] [address] [place] [facility] ALT/SGPT ALANINE AMINOTRANS FERASE [ENZYMATIC ACTIVITY/V OLUME] IN SERUM OR PLASMA 19 U/L <55 - 55 04/16 Specimen Type: PLASMA No comment entered. Ordering Provider: HUYEN HYLTON Report Released Date/Time: Mar 07, 2023 02:00 PM Reporting Lab: [facility] [address] Performing Lab: [facility] [address] [place] [facility] Vital Signs Combined list of [...] DC Date Status Disposition Source [place] [facility] Outpatient Encounter [id number] 04/24 [facility] VIS[facility] MDM [id number] Diagnos is: ICD-10- CM Z76.0 Encount er for issue of repeat prescri ption<b r/> AICHA GALLEGOS 05/09 [facility] Outpatient Encounter [id number] 05/09 [facility] [place] [facility] Outpatient Encounter [id number] 06/12 [place] [facility] [place] [facility] Outpatient Encounter [id number] 07/15 [place] [facility] [place] [facility] OFFICE O/P EST MOD 30-39 MIN [id number] Diagnos is: ICD-10- CM Z00.01 Encount er for general adult medical exam w abnorma l finding s
RILEYDANETTE LY E 08/07 [place] [facility] [place] [facility] Outpatient Encounter [id number] 08/07 [place] [facility] [place] [facility] Outpatient Encounter [id number] OLESYA ROGERS HIA M 08/12 [place] [facility] [place] [facility] Outpatient Encounter [id number] OLESYA ROGERS HIA M 08/12 [place] [facility] [place] [facility] Outpatient Encounter [id number] Ana CHAUHAN 09/12 [place] [facility] [place] [facility] Outpatient Encounter [id number] 11/06 [place] [facility] [place] [facility] Outpatient Encounter [id number] 12/08 [place] [facility] [place] [facility] Outpatient Encounter [id number] 12/12 [place] [facility] [place] [facility] Outpatient Encounter [id number] 01/17 [place] [facility] [place] [facility] Outpatient Encounter [id number] 02/19 [place] [facility] [place] [facility] Outpatient Encounter [id number] 02/24 [place] [facility] [place] [facility] Outpatient Encounter [id number] 03[facility]07 [facility] [place] [facility] QNHP OL DIG ASSMT&MGMT 5-10 [id number] Diagnos is: ICD-10- CM 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
ELLEN GARCIA 05/29 [facility] OFFICE O/P EST MOD 30 MIN [id number] Diagnos is: ICD-10- CM Z00.01 Encount er for general adult medical exam w abnorma l finding s
Ana CHAUHAN [place] 07/16 [facility] [place] [facility] Outpatient Encounter [id number] 07/17 [facility] Social History Combined list of available smoking, tobacco, and other social history from [employer] and [facility] Affairs facilities. Social History Type Response Date Comment [facility] e Tobacco smoking status FLIS [place]-TOBACCO FORMER USER 07/17/2023 [facility] History of tobacco use AZ-TOBACCO QUIT 1 TO < 5 YRS 07/17/2023 [facility] History of tobacco use [place]-TOBACCO FORMER USER 08/07/2022 [facility] MORE [facility]/16/2020 [facility] History of tobacco use AZ-TOBACCO USE CO UNSEL NO 03/29/2019 [facility] History of tobacco use AZ-TOBACCO USE WI 30 MIN OF WAKEUP 02/17/2018 [facility] History of tobacco use CURRENT TOBACCO USER 02/12/2017 [facility] History of tobacco use CURRENT TOBACCO USER 04/25/2015 [facility] History of tobacco use CURRENT TOBACCO USER 04/21/2014 [facility] History of tobacco use CURRENT TOBACCO USER 04/20/2013 [facility] History of tobacco use CURRENT TOBACCO USER 03/20/2012 [facility] History of tobacco use CURRENT TOBACCO USER 02/06/2011 [facility] History of tobacco use CURRENT TOBACCO USER 01/02/2010 [facility]
== END 2023-10-10 14:51 | disposition home or self-care (01) ==
LOC: WOUND 14:50
PROVIDERS: PCP Family Medicine; Visit Provider Physician Assistant Surgical
DX: L72.0 Epidermal cyst (principal)
CPT/HCPCS: G0463

== ENCOUNTER 2023-10-13 10:59 | Outpatient (CLI) | payer MEDICARE, BC, SELFPAY ==
--- OUTSIDE RECORDS SUMMARY | 2023-10-13 11:01 | XMS_ITS | Continuity of Care Document ---
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 It does not include entries that were removed or entered in error. Problem Status Onset Date Problem Type Date of Resolution Comments Source CVD - Cerebrovascular Disease ([facility] 14792405) Active 03/19/20 20 Condition May 01, 2020 Entered By: YOAV CHAUHAN Comment: 03/19/20: L MCA CVA, Admit ANW. Cardio-embol ic d/t Warfarin DC [facility] CAD - Coronary Artery Disease ([facility] 09722845) Active 01/27/20 20 Condition Mar 13, 2020 Entered By: YOAV CHAUHAN Comment: 01/27/20: LAD and Dx stented w/SATHYA at [facility]. Plavix +ASA thru 01/26/21 [facility] Peripheral arterial insufficiency Active 01/21/20 20 Condition Mar 13, 2020 Entered By: YOAV CHAUHAN Comment: 01/21/20: L femoral Art occlusion per [facility]-->Fem -Tibial bypass planned [facility] Allergic rhinitis (SNOMED CT 40791783) Active Condition [facility] Atrial fibrillation (SNOMED CT 93815652) Active Condition Apr 26, 2015 Entered By: YOAV CHAUHAN Comment: Warfarin through Miryam Rodriguez [facility] Co-Managed Care Active Condition Dec 25, 2017 Entered By: YOAV CHAUHAN Comment: Dr Garcia, Michael Hazen, F: [phone] , [facility] COPD - Chronic Obstructive Pulmonary Disease ([facility] 28417091) Active Condition Dec 25, 2017 Entered By: YOAV CHAUHAN Comment: Mometasone & Albuterol MDI's [facility] [place] of toe Active Condition Sep 08, 2019 Entered By: YOAV CHAUHAN Comment: R middle toe [facility] Current smoker Active Condition Apr 082015 Entered By: YOAV CHAUHAN Comment: Cigars, not cigarettes [facility] Essential hypertension (SNOMED CT 76516917) Active Condition [facility] Glucose intolerance Active Condition [facility] Nocturia due to benign prostatic hypertrophy Active Condition [facility] Health Maintenance (ICD-9-CM V65.9) Inactive Condition 04/26/2015 [facility] Diagnosis: ICD-10-CM Z00.01 Encounter for general adult medical exam w abnormal findings [facility] 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 [place] [facility] Diagnosis: ICD-10-CM Z76.0 Encounter for issue of repeat prescription Active Diagnosis [facility] Medications Combined list of [...] Jul 17, 2023 2 Jul 17, 2024 [id number] Sep 24, 2023 AFRICA CHAUHAN [facility] RESPIR ATORY (INHAL ATION) ACTIVE 07/17/2024 [id number] AFRICA CHAUHAN 2023 2 [facility] ALBUTEROL 90MCG/ACTUA T (CFC-F) INHL,ORAL,8 .5GM DOSE COUNTER ALBUTERO L 90MCG/AC TUAT (CFC-F) INHL,ORA L,8.5GM DOSE COUNTER Disconti nued INHALE 2 PUFFS BY INHALATI ON FOUR TIMES A DAY NEEDED FOR SHORTNES S OF BREATH FOR SHORTNES S OF BREATH August 07, 2022 2 August 08, 2023 [id number] August 07, 2022 AFRICA CHAUHAN [facility] RESPIR ATORY (INHAL ATION) DISCONT INUED 08/08/2023 [id number] AFRICA CHAUHAN 2022 2 [facility] APIXABAN 5MG TAB APIXABAN 5MG TAB Active TAKE ONE TABLET BY MOUTH EVERY 12 HOURS TO PREVENT BLOOD CLOTS AND STROKE (ELIQUIS ) May 29, 2023 180 May 29, 2024 [id number] C September 04, 2023 ZOFIA GARCIA [facility] ORAL ACTIVE 05/29/2024 [id number] MARIANO GARCIA 2023 180 [facility] APIXABAN 5MG TAB APIXABAN 5MG TAB Disconti nued TAKE ONE TABLET BY MOUTH EVERY 12 HOURS TO PREVENT BLOOD CLOTS AND STROKE (ELIQUIS ) May 08, 2022 180 May 09, 2023 [id number] B Mar 20, 2023 ZOFIA GARCIA [facility] ORAL DISCONT INUED 05/09/2023 [id number] MARIANO GARCIA 2022 180 [facility] CHOLECALCIF JONNA 25MCG (1,000UNIT) TAB CHOLECAL CIFEROL 25MCG (1,000UN IT) TAB Non-VA TAKE FIVE TABLETS BY MOUTH QOD Feb 12, 2017 Non-[facility] Document ed by: AFRICA CHAUHAN Document ed at: [facility] ORAL ACTIVE AFRICA CHAUHAN 2016 [facility] FLUOCINONID E 0.1% CREAM,TOP FLUOCINO NIDE 0.1% CREAM,TO P Active APPLY A THIN LAYER TOPICALL Y TWICE A DAY NEEDED FOR RASH FOR RASH Dec 12, 2022 60 Dec 13, 2023 [id number] Dec 13, 2022 AFRICA CHAUHAN [facility] TOPICA L ACTIVE 12/13/2023 [id number] AFRICA CHAUHAN 2022 60 [place] [facility] [facility] FLUTICASONE 250MCG/SALM ETEROL 50MCG INHL,ORAL,D ISKUS,60 FLUTICAS ONE 250MCG/S ALMETERO L 50MCG INHL,ORA L,DISKUS ,60 Active INHALE 1 PUFF BY INHALATI ON TWICE A DAY FOR COPD FOR COPD Jul 17, 2023 3 Jul 17, 2024 [id number] Jul 18, 2023 AFRICA CHAUHAN [facility] RESPIR ATORY (INHAL ATION) ACTIVE 07/17/2024 [id number] 4 AFRICA CHAUHAN 2023 3 [place] [facility] FLUTICASONE 250MCG/SALM ETEROL 50MCG INHL,ORAL,D ISKUS,60 FLUTICAS ONE 250MCG/S ALMETERO L 50MCG INHL,ORA L,DISKUS ,60 Disconti nued INHALE 1 PUFF BY INHALATI ON TWICE A DAY FOR COPD THIS REPLACES YOUR MOMETASO NE FOR COPD August 07, 2022 3 August 08, 2023 [id number] Apr 24, 2023 A[place]ICA CHAUHAN[place] [facility] RESPIR ATORY (INHAL ATION) DISCONT INUED 08/08/2023 [id number] AFRICA CHAUHAN 2022 3 [facility] [place] [place] [facility] FUROSEMIDE 20MG TAB FUROSEMI DE 20MG TAB Active TAKE ONE TABLET BY MOUTH THREE TIMES A WEEK FOR HEART FAILURE FOR HEART FAILURE Feb 24, 2023 39 Feb 25, 2024 [id number] Feb 28, 2023 SASHA DONAHUE A [facility] ORAL ACTIVE 02/25/2024 [id number] Hong DONAHUE A 2022 39 [facility] FUROSEMIDE 20MG TAB FUROSEMI DE 20MG TAB Disconti nued TAKE ONE TABLET BY MOUTH EVERY OTHER DAY FOR HEART FAILURE FOR HEART FAILURE August 12, 2022 45 August 13, 2023 [id number] Nov 08, 2022 AFRICA CHAUHANAPO [place] [facility] ORAL DISCONT INUED (EDIT) 08/13/2023 [id number] 3 AFRICA CHAUHAN 2022 45 [place] [facility] FUROSEMIDE 20MG TAB FUROSEMI DE 20MG TAB Disconti nued TAKE ONE TABLET BY MOUTH EVERY MORNING FOR HEART FAILURE FOR HEART FAILURE August 07, 2022 90 August 08, 2023 [id number] August 07, [address] [facility] ORAL DISCONT INUED 08/08/2023 [id number] AFRICA CHAUHAN 2022 90 [place] [facility] HYDROCHLORO THIAZIDE 12.5MG TAB HYDROCHL OROTHIAZ LAURA 12.5MG TAB Disconti nued TAKE ONE TABLET BY MOUTH EVERY DAY FOR BLOOD PRESSURE FOR BLOOD PRESSURE August 07, 2022 90 August 08, 2023 [id number] August 07, 2022 [facility] ORAL DISCONT INUED 08/08/2023 [id number] AFRICA CHAUHAN 2022 90 [place] [facility] METOPROLOL SUCCINATE 50MG TAB,SA METOPROL OL SUCCINAT E 50MG TAB,SA Disconti nued TAKE THREE TABLETS BY MOUTH EVERY DAY FOR BLOOD PRESSURE FOR BLOOD PRESSURE August 07, 2022 270 August 08, 2023 [id number] Sep 23, 2022 [facility]ICA [facility]AUHAN [facility] ORAL DISCONT INUED 08/08/2023 [id number] AFRICA CHAUHAN 2022 270 [facility] [place] [place] [facility] METOPROLOL TARTRATE 100MG TAB METOPROL OL TARTRATE 100MG TAB Active TAKE ONE TABLET BY MOUTH TWICE A DAY FOR BLOOD PRESSURE FOR BLOOD PRESSURE Dec 12, 2022 180 Dec 13, 2023 [id number] Sep 24, [address] [facility] ORAL ACTIVE 12/13/2023 [id number] 4 AFRICA CHAUHAN 2022 180 [facility] [place] [facility] NIFEDIPINE (EQV-CC) 60MG TAB,SA NIFEDIPI NE (EQV-CC) 60MG TAB,SA Disconti nued TAKE ONE TABLET BY MOUTH EVERY DAY FOR BLOOD PRESSURE FOR BLOOD PRESSURE August 07, 2022 90 August 08, 2023 [id number] Feb 20, [address] [facility] ORAL DISCONT INUED BY PROVIDE R 08/08/2023 [id number] AFRICA CHAUHAN 2022 90 [place] [facility] NIFEDIPINE (EQV-CC) 60MG TAB,SA NIFEDIPI NE (EQV-CC) 60MG TAB,SA Disconti nued TAKE ONE TABLET BY MOUTH EVERY DAY FOR BLOOD PRESSURE FOR BLOOD PRESSURE Jun 13, 2022 90 Sep 11, 2022 [id number] August 19, [address] [facility] ORAL DISCONT INUED 09/11/2022 [id number] AFRICA CHAUHAN 2022 90 [facility] NIFEDIPINE (EQV-CC) 90MG TAB,SA NIFEDIPI NE (EQV-CC) 90MG TAB,SA Active TAKE ONE TABLET BY MOUTH EVERY DAY FOR BLOOD PRESSURE FOR BLOOD PRESSURE Jul 17, 2023 90 Jul 17, 2024 [id number] Sep 19, [address] [facility] ORAL ACTIVE 07/17/2024 [id number] 4 AFRICA CHAUHAN 2023 90 [facility] NIFEDIPINE (EQV-CC) 90MG TAB,SA NIFEDIPI NE (EQV-CC) 90MG TAB,SA Disconti nued TAKE ONE TABLET BY MOUTH EVERY DAY FOR BLOOD PRESSURE INCREASE D DOSE PER CO-MANAG ED CARE INCREASE D DOSE PER CO-MANAG ED CARE FOR BLOOD PRESSURE Dec 12, 2022 90 Dec 13, 2023 [id number] Jul 01, [address] [facility] ORAL DISCONT INUED 12/13/2023 [id number] AFRICA CHAUHAN 2022 90 [facility] POTASSIUM CHLORIDE 10MEQ TAB,SA POTASSIU M CHLORIDE 10MEQ TAB,SA Active TAKE ONE TABLET BY MOUTH THREE TIMES A WEEK FOR POTASSIU M SUPPLEME NT TAKE WITH FUROSEMI DE FOR POTASSIU M SUPPLEME NT Feb 24, 2023 39 Feb 25, 2024 [id number] Feb 28, 2023 [facility] OR[facility]IVE 02/25/2024 [id number] Hong DONAHUE MUNIRAJALYN Parra 2022 39 [facility] POTASSIUM CHLORIDE 10MEQ TAB,SA POTASSIU M CHLORIDE 10MEQ TAB,SA Disconti nued TAKE ONE TABLET BY MOUTH EVERY OTHER DAY FOR POTASSIU M SUPPLEME NT FOR POTASSIU M SUPPLEME NT August 12, 2022 45 August 13, 2023 [id number] Nov 08, 2022 AFRICA CHAUHAN [facility] ORAL DISCONT INUED (EDIT) 08/13/2023 [id number] AFRICA CHAUHAN 2022 45 [facility] [place] [place] [facility] POTASSIUM CHLORIDE 10MEQ TAB,SA POTASSIU M CHLORIDE 10MEQ TAB,SA Disconti nued TAKE ONE TABLET BY MOUTH EVERY DAY FOR CONGESTI VE HEART FAILURE FOR POTASSIU M SUPPLEME NT August 07, 2022 90 August 08, 2023 [id number] August 07, [address] [facility] ORAL DISCONT INUED 08/08/2023 [id number] AFRICA CHAUHAN 2022 90 [facility] POTASSIUM CHLORIDE 10MEQ TAB,SA POTASSIU M CHLORIDE 10MEQ TAB,SA Disconti nued TAKE ONE TABLET BY MOUTH EVERY DAY FOR CONGESTI VE HEART FAILURE Nov 15, 2021 90 Nov 16, 2022 [id number] August 15, [address] [facility] ORAL DISCONT INUED 11/16/2022 [id number] AFRICA CHAUHAN 2021 90 [facility] ROSUVASTATI N CA 20MG TAB ROSUVAST ATIN CA 20MG TAB Active TAKE ONE TABLET BY MOUTH AT BEDTIME FOR CORONARY ARTERY DISEASE FOR CORONARY ARTERY DISEASE Jul 17, 2023 90 Jul 17, 2024 [id number] Sep 24, [address] [facility] ORAL ACTIVE 07/17/2024 [id number] AFRICA CHAUHAN 2023 90 [facility] ROSUVASTATI N CA 20MG TAB ROSUVAST ATIN CA 20MG TAB Disconti nued TAKE ONE TABLET BY MOUTH AT BEDTIME FOR CORONARY ARTERY DISEASE FOR CORONARY ARTERY DISEASE August 07, 2022 90 August 08, 2023 [id number] Jun 09, 2023 AFRICA CHAUHAN [facility] ORAL DISCONT INUED 08/08/2023 [id number] AFRICA CHAUHAN 2022 90 [facility] TAMSULOSIN HCL 0.4MG CAP TAMSULOS IN HCL 0.4MG CAP Active TAKE ONE CAPSULE BY MOUTH EVERY EVENING FOR PROSTATE FOR PROSTATE Jul 17, 2023Jul 17, 2024 [id number] Oct 05, 2023 AFRICA CHAUHAN [facility] ORAL ACTIVE 07/17/2024 [id number] AFRICA CHAUHAN 2023 30 [facility] Allergies, Adverse Reactions, Alerts Combined [...] Site Reaction Lot Number CVX Code Drug Hand Tube Bender Status Comments Source COVID-19 (Live Shuttle), MRNA, LNP-S, BIVALENT, PF, 30 MCG/0.3 ML DOSE 2022 300 complet ed [facility] COVID-19 (PFIZER), MRNA, LNP-S, PF, 30 MCG/0.3 ML DOSE, JAMES-SUCROSE (AGES 12+ YEARS) 2021 217 complet ed [facility] COVID-19 (Live Shuttle), MRNA, LNP-S, PF, 30 MCG/0.3 ML DOSE 2020 208 complet ed [facility] ZOSTER RECOMBINANT 2 2020 187 complet ed [facility] INFLUENZA VACCINE, QUADRIVALENT, ADJUVANTED 2020 205 complet ed [facility] INFLUENZA, UNSPECIFIED FORMULATION 2020 88 complet ed [facility] ZOSTER RECOMBINANT 1 2020 187 complet [facility] COVID-19 (PFIZER), MRNA, LNP-S, PF, 30 MCG/0.3 ML DOSE 2 2020 208 complet ed [facility] COVID-19 (PFIZER), MRNA, LNP-S, PF, 30 MCG/0.3 ML DOSE 1 2020 208 complet ed [facility] INFLUENZA VACCINE, QUADRIVALENT, ADJUVANTED 2019 205 complet ed [facility] INFLUENZA, TRIVALENT, ADJUVANTED 2018 168 complet ed [facility] INFLUENZA, SEASONAL, INJECTABLE 2018 141 complet ed [facility] INFLUENZA, SEASONAL, INJECTABLE 2017 141 complet ed [facility] INFLUENZA, TRIVALENT, ADJUVANTED 2017 168 complet ed [facility] INFLUENZA, HIGH DOSE SEASONAL 2016 135 complet ed [facility] PNEUMOCOCCAL POLYSACCHARID E PPV23 2016 33 complet ed [employer] , [id number], 06/03/18 [facility] TD (ADULT), 2 [...] Jul 17, 2023 04:23 PM Reporting Lab: [facility] [phone] Performing Lab: [facility] [address] [facility] URINALYS IS SPECIFIC GRAVITY OF URINE 1.006 1.003 - 1.035 07/16 Specimen Type: URINE No comment entered. Ordering Provider: TERRENCE CHAUHAN Report Released Date/Time: Jul 17, 2023 04:23 PM Reporting Lab: [facility] [address] Performing Lab: [facility] [address] [facility] URINALYS IS BILIRUBIN. TOTAL [PRESENCE] IN URINE BY TEST STRIP NEGATIVE 07/16 Specimen Type: URINE No comment entered. Ordering Provider: TERRENCE CHAUHAN Report Released Date/Time: Jul 17, 2023 04:23 PM Reporting Lab: [facility] [address] Performing Lab: [facility] [address] [facility] URINALYS IS KETONES [MASS/VOLU ME] IN URINE BY TEST STRIP NEGATIVE 07/16 Specimen Type: URINE No comment entered. Ordering Provider: TERRENCE CHAUHAN Report Released Date/Time: Jul 17, 2023 04:23 PM Reporting Lab: [facility] [address] Performing Lab: [facility] [address] [place] [facility] URINALYS IS GLUCOSE [MASS/VOLU ME] IN URINE BY TEST STRIP NEGATIVE mg/dL 07/16 Specimen Type: URINE No comment entered. Ordering Provider: TERRENCE CHAUHAN Report Released Date/Time: Jul 17, 2023 04:23 PM Reporting Lab: [facility] [address] Performing Lab: [facility] [address] [place] [facility] URINALYS IS PROTEIN [MASS/VOLU ME] IN URINE BY TEST STRIP NEGATIVE mg/dL 07/16 Specimen Type: URINE No comment entered. Ordering Provider: TERRENCE CHAUHAN Report Released Date/Time: Jul 17, 2023 04:23 PM Reporting Lab: [facility] [address] Performing Lab: [facility] [address] [place] [facility] URINALYS IS PH OF URINE BY TEST STRIP 7.0 5.0 - 8.0 07/16 Specimen Type: URINE No comment entered. Ordering Provider: TERRENCE CHAUHAN Report Released Date/Time: Jul 17, 2023 04:23 PM Reporting Lab: [facility] [address] Performing Lab: [facility] [address] [facility] URINALYS IS LEUKOCYTES [#/AREA] IN URINE SEDIMENT BY MICROSCOPY HIGH POWER FIELD <1/[HPF] 0 - 7 07/16 Specimen Type: URINE No comment entered. Ordering Provider: TERRENCE CHAUHAN Report Released Date/Time: Jul 17, 2023 04:23 PM Reporting Lab: [facility] [address] Performing Lab: [facility] [address] [place] [facility] URINALYS IS BACTERIA [PRESENCE] IN URINE SEDIMENT BY LIGHT MICROSCOPY NONE SEEN 07/16 Specimen Type: URINE No comment entered. Ordering Provider: TERRENCE CHAUHAN Report Released Date/Time: Jul 17, 2023 04:23 PM Reporting Lab: [facility] [address] Performing Lab: [facility] [address] [place] [facility] URINALYS IS ERYTHROCYT ES [#/AREA] IN URINE SEDIMENT BY MICROSCOPY HIGH POWER FIELD <1/[HPF] 0 - 3 07/16 Specimen Type: URINE No comment entered. Ordering Provider: TERRENCE CHAUHAN Report Released Date/Time: Jul 17, 2023 04:23 PM Reporting Lab: [facility] [address] Performing Lab: [facility] [address] [place] [facility] URINALYS IS APPEARANCE OF URINE CLEAR 07/16 Specimen Type: URINE No comment entered. Ordering Provider: TERRENCE CHAUHAN Report Released Date/Time: Jul 17, 2023 04:23 PM Reporting Lab: [facility] [address] Performing Lab: [facility] [address] [place] [facility] URINALYS IS EPITHELIAL CELLS.SQUA MOUS [#/AREA] IN URINE SEDIMENT BY MICROSCOPY HIGH POWER FIELD NONE SEEN/[HP F] 07/16 Specimen Type: URINE No comment entered. Ordering Provider: TERRENCE CHAHUAN Report Released Date/Time: Jul 17, 2023 04:23 PM Reporting Lab: [facility] [address] Performing Lab: [facility] [address] [place] [facility] URINALYS IS HEMOGLOBIN [PRESENCE] IN URINE BY TEST STRIP NEGATIVE 07/16 Specimen Type: URINE No comment entered. Ordering Provider: TERRENCE CHAUHAN Report Released Date/Time: Jul 17, 2023 04:23 PM Reporting Lab: [facility] [address] Performing Lab: [facility] [address] [place] [facility] URINALYS IS NITRITE [PRESENCE] IN URINE BY TEST STRIP NEGATIVE 07/16 Specimen Type: URINE No comment entered. Ordering Provider: TERRENCE CHAUHAN Report Released Date/Time: Jul 17, 2023 04:23 PM Reporting Lab: [facility] [address] Performing Lab: [facility] [address] [facility] URINALYS IS LEUKOCYTE ESTERASE [PRESENCE] IN URINE BY TEST STRIP NEGATIVE 07/16 Specimen Type: URINE No comment entered. Ordering Provider: TERRENCE CHAUHAN Report Released Date/Time: Jul 17, 2023 04:23 PM Reporting Lab: [facility] [address] Performing Lab: [facility] [address] [facility] HEMOGLOB IN A1C HEMOGLOBIN A1C/HEMOGL OBIN.TOTAL [...] August 07, 2022 02:21 PM Reporting Lab: [facility] [address] Performing Lab: [facility] [address] [facility] CBC LEUKOCYTES [#/VOLUME] IN BLOOD BY AUTOMATED COUNT 8.72 10*3/uL 4.0 - 11.0 07/16 Specimen Type: BLOOD No comment entered. Ordering Provider: TERRENCE CHAUHAN Report Released Date/Time: August 07, 2022 02:21 PM Reporting Lab: [facility] [address] Performing Lab: [facility] [address] [facility] CBC ERYTHROCYT ES [#/VOLUME] IN BLOOD BY AUTOMATED COUNT 4.11 10*6/uL 4.6 - 6.2 07/16 L Specimen Type: BLOOD No comment entered. Ordering Provider: TERRENCE CHAUHAN Report Released Date/Time: August 07, 2022 02:21 PM Reporting Lab: [facility] [address] Performing Lab: [facility] [address] [place] [facility] CBC HEMOGLOBIN [MASS/VOLU ME] IN BLOOD 13.4 g/dL 13.5 - 17.9 07/16 L Specimen Type: BLOOD No comment entered. Ordering Provider: TERRENCE CHAUHAN Report Released Date/Time: August 07, 2022 02:21 PM Reporting Lab: [facility] [address] Performing Lab: [facility] [address] [place] [facility] CBC HEMATOCRIT [VOLUME FRACTION] OF BLOOD BY AUTOMATED COUNT 39.7 41 - 54 07/16 L Specimen Type: BLOOD No comment entered. Ordering Provider: TERRENCE CHAUHAN Report Released Date/Time: August 07, 2022 02:21 PM Reporting Lab: [facility] [address] Performing Lab: [facility] [address] [place] [facility] CBC MCV [ENTITIC VOLUME] BY AUTOMATED COUNT 96.6 fL 80 - 100 07/16 Specimen Type: BLOOD No comment entered. Ordering Provider: TERRENCE CHAUHAN Report Released Date/Time: August 07, 2022 02:21 PM Reporting Lab: [facility] [address] Performing Lab: [facility] [address] [place] [facility] CBC MCH [ENTITIC MASS] BY AUTOMATED COUNT 32.6 pg 27 - 33 07/16 Specimen Type: BLOOD No comment entered. Ordering Provider: TERRENCE CHAUHAN Report Released Date/Time: August 07, 2022 02:21 PM Reporting Lab: [facility] [address] Performing Lab: [facility] [address] [place] [facility] CBC MCHC [MASS/VOLU ME] BY AUTOMATED COUNT 33.8 g/dL 32.0 - 37.5 07/16 Specimen Type: BLOOD No comment entered. Ordering Provider: TERRENCE CHAUHAN Report Released Date/Time: August 07, 2022 02:21 PM Reporting Lab: [facility] [address] Performing Lab: [facility] [address] [place] [facility] CBC PLATELETS [#/VOLUME] IN BLOOD BY AUTOMATED COUNT 159 10*3/uL 150 - 400 07/16 Specimen Type: BLOOD No comment entered. Ordering Provider: TERRENCE CHAUHAN Report Released Date/Time: August 07, 2022 02:21 PM Reporting Lab: [facility] [address] Performing Lab: [facility] [address] [place] [facility] CBC PLATELET MEAN VOLUME [ENTITIC VOLUME] IN BLOOD BY AUTOMATED COUNT 9.6 fL 7.4 - 10.4 07/16 Specimen Type: BLOOD No comment entered. Ordering Provider: TERRENCE CHAUHAN Report Released Date/Time: August 07, 2022 02:21 PM Reporting Lab: [facility] [address] Performing Lab: [facility] [address] [place] [facility] CBC ERYTHROCYT E DISTRIBUTI ON WIDTH [RATIO] BY AUTOMATED COUNT 14.1 11.5 - 14.5 07/16 Specimen Type: BLOOD No comment entered. Ordering Provider: TERRENCE CHAUHAN Report Released Date/Time: August 07, 2022 02:21 PM Reporting Lab: [facility] [phone] Performing Lab: [facility] [address] [place] [facility] BASIC METABOLI C PANEL+MG CREATININE [MASS/VOLU ME] IN SERUM OR PLASMA 1.3 mg/dL 0.7 - 1.2 07/16 H Specimen Type: PLASMA No comment entered. Ordering Provider: TERRENCE CHAUHAN Report Released Date/Time: August 07, 2022 02:21 PM Reporting Lab: [facility] [phone] Performing Lab: [facility] [phone] [place] [facility] BASIC METABOLI C PANEL+MG UREA NITROGEN [MASS/VOLU ME] IN SERUM OR PLASMA 15 mg/dL 8 - 26 07/16 Specimen Type: PLASMA No comment entered. Ordering Provider: TERRENCE CHAUHAN Report Released Date/Time: August 07, 2022 02:21 PM Reporting Lab: [facility] [phone] Performing Lab: [facility] [address] [place] [facility] BASIC METABOLI C PANEL+MG GLUCOSE [MASS/VOLU ME] IN SERUM OR PLASMA 84 mg/dL 70 - 100 07/16 Specimen Type: PLASMA No comment entered. Ordering Provider: TERRENCE CHAUHAN Report Released Date/Time: August 07, 2022 02:21 PM Reporting Lab: [facility] [phone] Performing Lab: [facility] [address] [place] [facility] BASIC METABOLI C PANEL+MG SODIUM [MOLES/VOL UME] IN SERUM OR PLASMA 137 mmol/L 136 - 145 07/16 Specimen Type: PLASMA No comment entered. Ordering Provider: TERRENCE CHAUHAN Report Released Date/Time: August 07, 2022 02:21 PM Reporting Lab: [facility] [phone] Performing Lab: [facility] [phone] [place] [facility] BASIC METABOLI C PANEL+MG POTASSIUM [MOLES/VOL UME] IN SERUM OR PLASMA 4.6 mmol/L 3.5 - 5.1 07/16 Specimen Type: PLASMA No comment entered. Ordering Provider: TERRENCE CHAUHAN Report Released Date/Time: August 07, 2022 02:21 PM Reporting Lab: [facility] [address] Performing Lab: [facility] [address] [place] [facility] BASIC METABOLI C PANEL+MG CHLORIDE [MOLES/VOL UME] IN SERUM OR PLASMA 105 mmol/L 98 - 107 07/16 Specimen Type: PLASMA No comment entered. Ordering Provider: TERRENCE CHAUHAN Report Released Date/Time: August 07, 2022 02:21 PM Reporting Lab: [facility] [address] Performing Lab: [facility] [address] [place] [facility] BASIC METABOLI C PANEL+MG CARBON DIOXIDE, TOTAL [MOLES/VOL UME] IN SERUM OR PLASMA 24 mmol/L 22 - 29 07/16 Specimen Type: PLASMA No comment entered. Ordering Provider: TERRENCE CHAUHAN Report Released Date/Time: August 07, 2022 02:21 PM Reporting Lab: [facility] [address] Performing Lab: [facility] [address] [place] [facility] BASIC METABOLI C PANEL+MG CALCIUM [MASS/VOLU ME] IN SERUM OR PLASMA 8.9 mg/dL 8.4 - 10.2 07/16 Specimen Type: PLASMA No comment entered. Ordering Provider: TERRENCE CHAUHAN Report Released Date/Time: August 07, 2022 02:21 PM Reporting Lab: [facility] [address] Performing Lab: [facility] [address] [place] [facility] BASIC METABOLI C PANEL+MG MAGNESIUM [MASS/VOLU ME] IN SERUM OR PLASMA 2.1 mg/dL 1.6 - 2.6 07/16 Specimen Type: PLASMA No comment entered. Ordering Provider: TERRENCE CHAUHAN Report Released Date/Time: August 07, 2022 02:21 PM Reporting Lab: [facility] [address] Performing Lab: [facility] [address] [place] [facility] BASIC METABOLI C PANEL+MG ANION GAP IN SERUM OR PLASMA 8 mmol/L 5 - 15 07/16 Specimen Type: PLASMA No comment entered. Ordering Provider: TERRENCE CHAUHAN Report Released Date/Time: August 07, 2022 02:21 PM Reporting Lab: [facility] [address] Performing Lab: [facility] [address] [place] [facility] BASIC METABOLI C PANEL+MG GLOMERULAR FILTRATION RATE/1.73 SQ M.PREDICTE D [VOLUME RATE/AREA] IN SERUM, PLASMA OR BLOOD BY CREATININE -BASED FORMULA (CKD-EPI 2020) 56 60 07/16 L Specimen Type: PLASMA No comment entered. Ordering Provider: TERRENCE CHAUHAN Report Released Date/Time: August 07, 2022 02:21 PM Reporting Lab: [facility] [address] Performing Lab: [facility] [address] [place] [facility] LIVER FUNCTION TESTS BILIRUBIN. TOTAL [MASS/VOLU ME] IN SERUM OR PLASMA 0.8 mg/dL 0.2 - 1.2 07/16 Specimen Type: PLASMA No comment entered. Ordering Provider: TERRENCE CHAUHAN Report Released Date/Time: August 07, 2022 02:21 PM Reporting Lab: [facility] [address] Performing Lab: [facility] [address] [place] [facility] LIVER FUNCTION TESTS ALKALINE PHOSPHATAS E [ENZYMATIC ACTIVITY/V OLUME] IN SERUM OR PLASMA 52 U/L 40 - 150 07/16 Specimen Type: PLASMA No comment entered. Ordering Provider: TERRENCE CHAUHAN Report Released Date/Time: August 07, 2022 02:21 PM Reporting Lab: [facility] [address] Performing Lab: [facility] [address] [place] [facility] LIVER FUNCTION TESTS ALANINE AMINOTRANS FERASE [ENZYMATIC ACTIVITY/V OLUME] IN SERUM OR PLASMA 20 U/L <55 - 55 07/16 Specimen Type: PLASMA No comment entered. Ordering Provider: TERRENCE CHAUHAN Report Released Date/Time: August 07, 2022 02:21 PM Reporting Lab: [facility] [address] Performing Lab: [facility] [address] [place] [facility] LIVER FUNCTION TESTS ASPARTATE AMINOTRANS FERASE [ENZYMATIC ACTIVITY/V OLUME] IN SERUM OR PLASMA 19 U/L <34 - 34 07/16 Specimen Type: PLASMA No comment entered. Ordering Provider: TERRENCE CHAUHAN Report Released Date/Time: August 07, 2022 02:21 PM Reporting Lab: [facility] [address] Performing Lab: [facility] [address] [place] [facility] LIVER FUNCTION TESTS GAMMA GLUTAMYL TRANSFERAS E [ENZYMATIC ACTIVITY/V OLUME] IN SERUM OR PLASMA 38 U/L <64 - 64 07/16 Specimen Type: PLASMA No comment entered. Ordering Provider: TERRENCE CHAUHAN Report Released Date/Time: August 07, 2022 02:21 PM Reporting Lab: [place] [id number] Performing Lab: [place] [address] [place] [facility] PSA PROSTATE SPECIFIC AG [MASS/VOLU ME] IN SERUM OR PLASMA 3.84 ng/mL <4.00 - 4.00 07/16 Specimen Type: SERUM No comment entered. Ordering Provider: TERRENCE CHAUHAN Report Released Date/Time: August 07, 2022 02:21 PM Reporting Lab: [place] [address] Performing Lab: [place] [address] [place] [facility] CREATINI NE(INCLU SATHYA EGFR) CREATININE [MASS/VOLU ME] IN SERUM OR PLASMA 1.2 mg/dL 0.7 - 1.2 04/16 Specimen Type: PLASMA No comment entered. Ordering Provider: HUYEN HYLTON Report Released Date/Time: Mar 07, 2023 02:00 PM Reporting Lab: [place] [address] Performing Lab: [place] [address] [place] [facility] CREATINI NE(INCLU SATHYA EGFR) GLOMERULAR FILTRATION RATE/1.73 SQ M.PREDICTE D [VOLUME RATE/AREA] IN SERUM, PLASMA OR BLOOD BY CREATININE -BASED FORMULA (CKD-EPI 2020) 62 60 04/16 Specimen Type: PLASMA No comment entered. Ordering Provider: HUYEN HYLTON Report Released Date/Time: Mar 07, 2023 02:00 PM Reporting Lab: [address] Performing Lab: [address] [place] [facility] CBC LEUKOCYTES [#/VOLUME] IN BLOOD BY AUTOMATED COUNT 8.06 10*3/uL 4.0 - 11.0 04/16 Specimen Type: BLOOD No comment entered. Ordering Provider: HUYEN HYLTON Report Released Date/Time: Mar 07, 2023 02:00 PM Reporting Lab: [place] [address] Performing Lab: [place] [address] [place] [facility] CBC ERYTHROCYT ES [#/VOLUME] IN BLOOD BY AUTOMATED COUNT 4.03 10*6/uL 4.6 - 6.2 04/16 L Specimen Type: BLOOD No comment entered. Ordering Provider: HUYEN HYLTON Report Released Date/Time: Mar 07, 2023 02:00 PM Reporting Lab: [place] [address] Performing Lab: [place] [address] [place] [facility] CBC HEMOGLOBIN [MASS/VOLU ME] IN BLOOD 13.1 g/dL 13.5 - 17.9 04/16 L Specimen Type: BLOOD No comment entered. Ordering Provider: HUYEN HYLTON Report Released Date/Time: Mar 07, 2023 02:00 PM Reporting Lab: [place] [address] Performing Lab: [place] [address] [place] [facility] CBC HEMATOCRIT [VOLUME FRACTION] OF BLOOD BY AUTOMATED COUNT 38.9 41 - 54 04/16 L Specimen Type: BLOOD No comment entered. Ordering Provider: HUYEN HYLTON Report Released Date/Time: Mar 07, 2023 02:00 PM Reporting Lab: [place] [address] Performing Lab: [place] [address] [facility] CBC MCV [ENTITIC VOLUME] BY AUTOMATED COUNT 96.5 fL 80 - 100 04/16 Specimen Type: BLOOD No comment entered. Ordering Provider: HUYEN HYLTON Report Released Date/Time: Mar 07, 2023 02:00 PM Reporting Lab: [place] [address] Performing Lab: [place] [address] [place] [facility] CBC MCH [ENTITIC MASS] BY AUTOMATED COUNT 32.5 pg 27 - 33 04/16 Specimen Type: BLOOD No comment entered. Ordering Provider: HUYEN HYLTON Report Released Date/Time: Mar 07, 2023 02:00 PM Reporting Lab: [facility] [address] Performing Lab: [facility] [address] [place] [facility] CBC MCHC [MASS/VOLU ME] BY AUTOMATED COUNT 33.7 g/dL 32.0 - 37.5 04/16 Specimen Type: BLOOD No comment entered. Ordering Provider: HUYEN HYLTON Report Released Date/Time: Mar 07, 2023 02:00 PM Reporting Lab: [facility] [address] Performing Lab: [facility] [address] [place] [facility] CBC PLATELETS [#/VOLUME] IN BLOOD BY AUTOMATED COUNT 157 10*3/uL 150 - 400 04/16 Specimen Type: BLOOD No comment entered. Ordering Provider: HUYEN HYLTON Report Released Date/Time: Mar 07, 2023 02:00 PM Reporting Lab: [facility] [address] Performing Lab: [facility] [address] [facility] CBC PLATELET MEAN VOLUME [ENTITIC VOLUME] IN BLOOD BY AUTOMATED COUNT 9.7 fL 7.4 - 10.4 04/16 Specimen Type: BLOOD No comment entered. Ordering Provider: HUYEN HYLTON Report Released Date/Time: Mar 07, 2023 02:00 PM Reporting Lab: [facility] [address] Performing Lab: [facility] [address] [facility] CBC ERYTHROCYT E DISTRIBUTI ON WIDTH [RATIO] BY AUTOMATED COUNT 14.5 11.5 - 14.5 04/16 Specimen Type: BLOOD No comment entered. Ordering Provider: HUYEN HYLTON Report Released Date/Time: Mar 07, 2023 02:00 PM Reporting Lab: [facility] [address] Performing Lab: [facility] [address] [place] [facility] AST/SGOT ASPARTATE AMINOTRANS FERASE [ENZYMATIC ACTIVITY/V OLUME] IN SERUM OR PLASMA 22 U/L <34 - 34 04/16 Specimen Type: PLASMA No comment entered. Ordering Provider: HUYEN HYLTON Report Released Date/Time: Mar 07, 2023 02:00 PM Reporting Lab: [facility] [address] Performing Lab: [facility] [address] [place] [facility] ALT/SGPT ALANINE AMINOTRANS FERASE [ENZYMATIC ACTIVITY/V OLUME] IN SERUM OR PLASMA 19 U/L <55 - 55 04/16 Specimen Type: PLASMA No comment entered. Ordering Provider: HUYEN HYLTON Report Released Date/Time: Mar 07, 2023 02:00 PM Reporting Lab: [facility] [address] Performing Lab: [facility] [address] [place] [facility] Vital Signs Combined list of inpatient and [...] DC Date Status Disposition Source [place] [facility] Outpatient Encounter [id number] 04/24 [facility] EMERGENCY DEPT VISIT [place] MDM [id number] Diagnos is: ICD-10- CM Z76.0 Encount er for issue of repeat prescri ption<b r/> AICHA GALLEGOS 05/09 [facility] Outpatient Encounter [id number] 05/09 [facility] [place] [facility] Outpatient Encounter [id number] 06/12 [place] [facility] [place] [facility] Outpatient Encounter [id number] 07/15 [place] [facility] [place] [facility] OFFICE O/P EST MOD 30-39 MIN [id number] Diagnos is: ICD-10- CM Z00.01 Encount er for general adult medical exam w abnorma l finding s
RILEYDANETTE LY E 08/07 [place] [facility] [place] [facility] Outpatient Encounter [id number] 08/07 [place] [facility] [place] [facility] Outpatient Encounter [id number] OLESYA ROGERS HIA M 08/12 [place] [facility] [place] [facility] Outpatient Encounter [id number] OLESYA ROGERS HIA M 08/12 [place] [facility] [place] [facility] Outpatient Encounter [id number] Ana CHAUHAN 09/12 [place] [facility] [place] [facility] Outpatient Encounter [id number] 11/06 [place] [facility] [place] [facility] Outpatient Encounter [id number] 12/08 [place] [facility] [place] [facility] Outpatient Encounter [id number] 12/12 [place] [facility] [place] [facility] Outpatient Encounter [id number] 01/17 [place] [facility] [place] [facility] Outpatient Encounter [id number] 02/19 [place] [facility] [place] [facility] Outpatient Encounter [id number] 02/24 [place] [facility] [place] [facility] Outpatient Encounter [id number] 03/07 [facility] [place] [facility] 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
ELLEN GARCIA 05/29 [facility] OFFICE O/P EST MOD 30 MIN [id number] Diagnos is: ICD-10- CM Z00.01 Encount er for general adult medical exam w abnorma l finding s
Ana CHAUHAN [place] 07/16 [facility] [place] [facility] Outpatient Encounter [id number] 07/17 [facility] Social History Combined list of available smoking, tobacco, and other social history from [facility] and [facility] Affairs facilities. Social History Type Response Date Comment [facility] Tobacco smoking status TNIS RI-TOBACCO FORMER USER 07/17/2023 [facility] History of tobacco use RI-TOBACCO QUIT 1 TO < 5 YRS 07/17/2023 [facility] History of tobacco use RI-TOBACCO FORMER USER 08/07/2022 [facility] of [facility] OR MORE 10/16/2020 [facility] History of tobacco use RI-TOBACCO USE CO UNSEL NO 03/29/2019 [facility] History of tobacco use RI-TOBACCO USE WI 30 MIN OF WAKEUP 02/17/2018 [...]
--- OUTSIDE RECORDS SUMMARY | 2023-10-13 11:01 | XMS_ITS | Clinical Summary ---
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 LLE angiogram 2. 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 of igiugig peroneal Panlobular emphysema 10/21/2018 COPD exacerbation 09/09/2018 [...] Department Care Team Description 08/05/2023 Lab Requisition [facility] [phone] Unknown, Doctor 08/04/2023 8:35 AM CDT Office Visit [facility] [address] [place] [address] Jena Pascual PA Follow Up (Boil) 08/04/2023 Travel 08/01/2023 8:35 AM CDT Office Visit [facility] [address] [facility] [place] [address] Jena Pascual PA Derm Problem 08/01/2023 Travel [...] T Respiratory Rate 18 03/17/2023 3:35 PM CRM ARCHITECT Oxygen Saturation 96% 08/04/2023 8:35 AM CDT Inhaled Oxygen Concentration - - Weight 90.7 kg (200 lb) 08/04/2023 8:35 AM CDT Height 190.5 cm (6' 3) 03/17/2023 2:07 PM CRM ARCHITECT Body Mass Index 25 03/17/2023 2:07 PM CRM ARCHITECT Plan of Treatment Health Maintenance Due Date [...] back ANTI HCV Routine 05/16/2021 3:20 PM CRM ARCHITECT Need for hepatitis C screening test CT [...] [facility] [address] [place] [address], * PATH TISSUE EXAM (08/05/2023 2:01 PM CDT) Case Report Pathology Report ?Case: [id number] ? Authorizing Provider: ??Unknown, Doctor ?Collected: ? 08/05/2023 1401 ? Ordering Location: ? [facility] ?Received: ?08/06/2023 1013 ? Pathologist: ? Jose Rinaldi MD ? Specimen: ?Back ? 08/07/2023 4:47 PM CDT [facility] Final Diagnosis A) SKIN, BACK, CYST, EXCISION: 1. Epidermoid cyst 2. Negative for dysplasia or malignancy 08/07/2023 4:47 PM CDT [facility] Clinical Information back cyst 08/07/2023 4:47 PM CDT [facility] Gross Description A) Received in formalin, labeled with the patient's name and date of , is a 1.5 x 1.1 x 0.3 cm aggregate of pale-garcia cyst wall fragments admixed with garcia-white soft, friable cyst contents. ??The specimen is filtered and submitted entirely in 1 cassette. [facility] 08/06/2023 08/07/2023 4:47 PM CDT [facility] Microscopic Description The final diagnosis is based on microscopic examination of appropriate sections of all specimens. 08/07/2023 4:47 PM CDT [facility] Additional Information Interpreted at [facility] - [address] [place] [address], [place] [address] 08/07/2023 4:47 PM CDT [facility] Other (Back) 08/05/2023 2:01 PM CDT 08/06/2023 10:13 AM CDT Doctor Unknown PATHOLOGY/CYTOLOGY [facility] [address] [place] [address], * AEROBIC BACTERIAL CULTURE, STAIN (08/01/2023 9:30 AM CDT) CULTURE No Growth. 08/03/2023 3:00 PM CDT [facility] GRAM STAIN 4+ RBCs 08/03/2023 3:00 PM CDT [facility] GRAM STAIN 1+ PMNs 08/03/2023 3:00 PM CDT [facility] GRAM STAIN No Epithelial cells 08/03/2023 3:00 PM CDT [facility] GRAM STAIN 4+ Gram Positive Cocci 08/03/2023 3:00 PM CDT [facility] GRAM STAIN 3+ Gram Negative Bacilli 08/03/2023 3:00 PM CDT [facility] Other (Other) Non-Blood / Unknown 08/01/2023 9:30 AM CDT 08/01/2023 9:31 AM CDT Jena RICHARDSON MICROBIOLOGY [facility] [address] [place] [address], * ANTI HCV (05/16/2021 3:20 PM CRM ARCHITECT) HEPATITIS C ANTIBODY Non-React edelmira Non-React edelmira 05/17/2021 1:21 AM CRM ARCHITECT [facility] Comment:Antibodies to HCV no t detected; does not exclude the possibility of exposure to HCV. Blood BLOOD SPECIMEN / Unknown Venipuncture / Unknown 05/16/2021 3:20 PM CRM ARCHITECT 05/16/2021 3:25 PM CRM ARCHITECT Zak Garcia MD SEND OUTS Performing Organization Address City/[facility]/ZIP Co de Phone Number [facility] [address] [place] [address], * CT CHEST WO CONTRAST (08/29/2010 4:53 [...] Comments Code Status Discussion: Discussed Care Teams Fiber Optic Splicer Relationship Specialty Start Date End Date Klever Monte MD [address] [place] [address] PCP - General Family Practice 06/12/22
== END 2023-10-13 11:00 | disposition home or self-care (01) ==
LOC: WOUND 10:59
PROVIDERS: PCP Family Medicine; Visit Provider Nurse Practitioner Family
DX: L72.0 Epidermal cyst (principal); S61.211A Laceration without foreign body of left index finger without damage to nail, initial encounter
CPT/HCPCS: 97597; 97602

== ENCOUNTER 2023-10-16 15:38 | Outpatient (CLI) | payer MEDICARE, BC, SELFPAY ==
--- OUTSIDE RECORDS SUMMARY | 2023-10-16 15:41 | XMS_ITS | Continuity of Care Document ---
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 It does not include entries that were removed or entered in error. Problem Status Onset Date Problem Type Date of Resolution Comments Source CVD - Cerebrovascular Disease ([facility] 16014304) Active 03/19/20 20 Condition May 01, 2020 Entered By: YOAV CHAUHAN Comment: 03/19/20: L MCA CVA, Admit ANW. Cardio-embol ic d/t Warfarin DC [facility] CAD - Coronary Artery Disease ([facility] [id number]) Active 01/27/20 20 Condition Mar 13, 2020 Entered By: YOAV CHAUHAN Comment: 01/27/20: LAD and Dx stented w/SATHYA at [facility]. Plavix +ASA thru 01/26/21 [facility] Peripheral arterial insufficiency Active 01/21/20 20 Condition Mar 13, 2020 Entered By: YOAV CHAUHAN Comment: 01/21/20: L femoral Art occlusion per [facility]-->Fem -Tibial bypass planned [facility] Allergic rhinitis (SNOMED CT 28896705) Active Condition [facility] Atrial fibrillation (SNOMED CT 59399919) Active Condition Apr 26, 2015 Entered By: YOAV CHAUHAN Comment: Warfarin through Miryam Rodriguez [facility] Co-Managed Care Active Condition Dec 25, 2017 Entered By: YOAV CHAUHAN Comment: Dr Garcia, Michael [place], F: [phone] , [facility] COPD - Chronic Obstructive Pulmonary Disease ([facility] [id number]) Active Condition Dec 25, 2017 Entered By: YOAV CHAUHAN Comment: Mometasone & Albuterol MDI's [facility] [place] of toe Active Condition Sep 08, 2019 Entered By: YOAV CHAUHAN Comment: R middle toe [facility] Current smoker Active Condition Apr 082015 Entered By: YOAV CHAUHAN Comment: Cigars, not cigarettes [facility] Essential hypertension (SNOMED CT 14457740) Active Condition [facility] Glucose intolerance Active Condition [facility] Nocturia due to benign prostatic hypertrophy Active Condition [facility] Health Maintenance (ICD-9-CM V65.9) Inactive Condition 04/26/2015 [facility] Diagnosis: ICD-10-CM Z00.01 Encounter for general adult medical exam w abnormal findings [facility] Diagnosis: 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 Active Diagnosis [facility] Diagnosis: ICD-10-CM Z76.0 Encounter for issue of repeat prescription Active Diagnosis [facility] Medications Combined list of outpatient [...] Jul 17, 2023 2 Jul 17, 2024 [id number] Sep 24, 2023 AFIRCA CHAUHAN [facility] RESPIR ATORY (INHAL ATION) ACTIVE 07/17/2024 [id number] AFRICA CHAUHAN 2023 2 [facility] ALBUTEROL 90MCG/ACTUA T (CFC-F) INHL,ORAL,8 .5GM DOSE COUNTER ALBUTERO L 90MCG/AC TUAT (CFC-F) INHL,ORA L,8.5GM DOSE COUNTER Disconti nued INHALE 2 PUFFS BY INHALATI ON FOUR TIMES A DAY NEEDED FOR SHORTNES S OF BREATH FOR SHORTNES S OF BREATH August 07, 2022 2 August 08, 2023 [id number] August 07, 2022 AFRICA CHAUHAN [facility] RESPIR ATORY (INHAL ATION) DISCONT INUED 08/08/2023 [id number] AFRICA CHAUHAN 2022 2 [facility] APIXABAN 5MG TAB APIXABAN 5MG TAB Active TAKE ONE TABLET BY MOUTH EVERY 12 HOURS TO PREVENT BLOOD CLOTS AND STROKE (ELIQUIS ) May 29, 2023 180 May 29, 2024 [id number] C September 04, 2023 ZOFIA GARCIA [facility] ORAL ACTIVE 05/29/2024 [id number] MARIANO GARCIA 2023 180 [facility] APIXABAN 5MG TAB APIXABAN 5MG TAB Disconti nued TAKE ONE TABLET BY MOUTH EVERY 12 HOURS TO PREVENT BLOOD CLOTS AND STROKE (ELIQUIS ) May 08, 2022 180 May 09, 2023 [id number] Mar 20, 2023 ZOFIA GARCIA [facility] ORAL DISCONT INUED 05/09/2023 [id number] MARIANO GARCIA 2022 180 [facility] CHOLECALCIF JONNA 25MCG (1,000UNIT) TAB CHOLECAL CIFEROL 25MCG (1,000UN IT) TAB Non-VA TAKE FIVE TABLETS BY MOUTH QOD Feb 12, 2017 [facility] Document ed by: AFRICA CHAUHAN Document ed at: [facility] ORAL ACTIVE AFRICA CHAUHAN 2016 [facility] FLUOCINONID E 0.1% CREAM,TOP FLUOCINO NIDE 0.1% CREAM,TO P Active APPLY A THIN LAYER TOPICALL Y TWICE A DAY NEEDED FOR RASH FOR RASH Dec 12, 2022 60 Dec 13, 2023 [id number] Dec 13, 2022 AFRICA CHAUHAN [facility] TOPICA L ACTIVE 12/13/2023 [id number] 3 AFRICA CHAUHAN 2022 60 [place] [facility] FLUTICASONE 250MCG/SALM ETEROL 50MCG INHL,ORAL,D ISKUS,60 FLUTICAS ONE 250MCG/S ALMETERO L 50MCG INHL,ORA L,DISKUS ,60 Active INHALE 1 PUFF BY INHALATI ON TWICE A DAY FOR COPD FOR COPD Jul 17, 2023 3 Jul 17, 2024 [id number] Oct 15, 2023 A[facility]ICA [facility]AUHAN [facility] RESPIR ATORY (INHAL ATION) ACTIVE 07/17/2024 [id number] 4 AFRICA CHAUHAN 2023 3 [place] [facility] FLUTICASONE 250MCG/SALM ETEROL 50MCG INHL,ORAL,D ISKUS,60 FLUTICAS ONE 250MCG/S ALMETERO L 50MCG INHL,ORA L,DISKUS ,60 Disconti nued INHALE 1 PUFF BY INHALATI ON TWICE A DAY FOR COPD THIS REPLACES YOUR MOMETASO NE FOR COPD August 07, 2022 3 August 08, 2023 [id number] Apr 24, 2023 AFRICA CHAUHANO [place] [facility] RESPIR ATORY (INHAL ATION) DISCONT INUED 08/08/2023 [id number] AFRICA CHAUHAN 2022 3 [facility] FUROSEMIDE 20MG TAB FUROSEMI DE 20MG TAB Active TAKE ONE TABLET BY MOUTH THREE TIMES A WEEK FOR HEART FAILURE FOR HEART FAILURE Feb 24, 2023 39 Feb 25, 2024 [id number] Feb 28, 2023 SASHA DONAHUE [facility] ORAL ACTIVE 02/25/2024 [id number] Hong DONAHUE A 2022 39 [facility] FUROSEMIDE 20MG TAB FUROSEMI DE 20MG TAB Disconti nued TAKE ONE TABLET BY MOUTH EVERY OTHER DAY FOR HEART FAILURE FOR HEART FAILURE August 12, 2022 45 August 13, 2023 [id number] Nov 08, 2022 AFRICA CHAUHANAPO L[place] [facility] ORAL DISCONT INUED (EDIT) 08/13/2023 [id number] 3 AFRICA CHAUHAN 2022 45 [place] [facility] FUROSEMIDE 20MG TAB FUROSEMI DE 20MG TAB Disconti nued TAKE ONE TABLET BY MOUTH EVERY MORNING FOR HEART FAILURE FOR HEART FAILURE August 07, 2022 90 August 08, 2023 [id number] August 07, [address] [facility] ORAL DISCONT INUED 08/08/2023 [id number] AFRICA CHAUHAN 2022 90 [place] [facility] HYDROCHLORO THIAZIDE 12.5MG TAB HYDROCHL OROTHIAZ LAURA 12.5MG TAB Disconti nued TAKE ONE TABLET BY MOUTH EVERY DAY FOR BLOOD PRESSURE FOR BLOOD PRESSURE August 07, 2022 90 August 08, 2023 [id number] August 07, 2022 [facility] ORAL DISCONT INUED 08/08/2023 [id number] AFRICA CHAUHAN 2022 90 [place] [facility] METOPROLOL SUCCINATE 50MG TAB,SA METOPROL OL SUCCINAT E 50MG TAB,SA Disconti nued TAKE THREE TABLETS BY MOUTH EVERY DAY FOR BLOOD PRESSURE FOR BLOOD PRESSURE August 07, 2022 270 August 08, 2023 [id number] Sep 23, 2022 [facility] DISCONT INU[facility] 08/08/2023 [id number] AFRICA CHAUHAN 2022 270 [facility] METOPROLOL TARTRATE 100MG TAB METOPROL OL TARTRATE 100MG TAB Active TAKE ONE TABLET BY MOUTH TWICE A DAY FOR BLOOD PRESSURE FOR BLOOD PRESSURE Dec 12, 2022 180 Dec 13, 2023 [id number] Sep 24, [address] [facility] ORAL ACTIVE 12/13/2023 [id number] 4 AFRICA CHAUHAN 2022 180 [facility] NIFEDIPINE (EQV-CC) 60MG TAB,SA NIFEDIPI NE (EQV-CC) 60MG TAB,SA Disconti nued TAKE ONE TABLET BY MOUTH EVERY DAY FOR BLOOD PRESSURE FOR BLOOD PRESSURE August 07, 2022 90 August 08, 2023 [id number] Feb 20, [address] [facility] ORAL DISCONT INUED BY PROVIDE R 08/08/2023 [id number] AFRICA CHAUHAN 2022 90 [place] [facility] NIFEDIPINE (EQV-CC) 60MG TAB,SA NIFEDIPI NE (EQV-CC) 60MG TAB,SA Disconti nued TAKE ONE TABLET BY MOUTH EVERY DAY FOR BLOOD PRESSURE FOR BLOOD PRESSURE Jun 13, 2022 90 Sep 11, 2022 [id number] August 19, [address] [facility] ORAL DISCONT INUED 09/11/2022 [id number] AFRICA CHAUHAN 2022 90 [facility] NIFEDIPINE (EQV-CC) 90MG TAB,SA NIFEDIPI NE (EQV-CC) 90MG TAB,SA Active TAKE ONE TABLET BY MOUTH EVERY DAY FOR BLOOD PRESSURE FOR BLOOD PRESSURE Jul 17, 2023 90 Jul 17, 2024 [id number] Sep 19, [address] [facility] ORAL ACTIVE 07/17/2024 [id number] AFRICA CHAUHAN 2023 90 [facility] NIFEDIPINE (EQV-CC) 90MG TAB,SA NIFEDIPI NE (EQV-CC) 90MG TAB,SA Disconti nued TAKE ONE TABLET BY MOUTH EVERY DAY FOR BLOOD PRESSURE INCREASE D DOSE PER CO-MANAG ED CARE INCREASE D DOSE PER CO-MANAG ED CARE FOR BLOOD PRESSURE Dec 12, 2022 90 Dec 13, 2023 [id number] Jul 01, [address] [facility] ORAL DISCONT INUED 12/13/2023 [id number] AFRICA CHAUHAN 2022 90 [facility] POTASSIUM CHLORIDE 10MEQ TAB,SA POTASSIU M CHLORIDE 10MEQ TAB,SA Active TAKE ONE TABLET BY MOUTH THREE TIMES A WEEK FOR POTASSIU M SUPPLEME NT TAKE WITH FUROSEMI DE FOR POTASSIU M SUPPLEME NT Feb 24, 2023 39 Feb 25, 2024 [id number] Feb 28, 2023 [facility] OR[facility]IVE 02/25/2024 [id number] Hong DONAHUE MUNIRAJALYN Parra 2022 39 [facility] POTASSIUM CHLORIDE 10MEQ TAB,SA POTASSIU M CHLORIDE 10MEQ TAB,SA Disconti nued TAKE ONE TABLET BY MOUTH EVERY OTHER DAY FOR POTASSIU M SUPPLEME NT FOR POTASSIU M SUPPLEME NT August 12, 2022 45 August 13, 2023 [id number] Nov 08, 2022 AFRICA CHAUHAN [facility] ORAL DISCONT INUED (EDIT) 08/13/2023 [id number] AFRICA CHAUHAN 2022 45 [facility] POTASSIUM CHLORIDE 10MEQ TAB,SA POTASSIU M CHLORIDE 10MEQ TAB,SA Disconti nued TAKE ONE TABLET BY MOUTH EVERY DAY FOR CONGESTI VE HEART FAILURE FOR POTASSIU M SUPPLEME NT August 07, 2022 90 August 08, 2023 [id number] August 07, [address] [facility] ORAL DISCONT INUED 08/08/2023 [id number] AFRICA CHAUHAN 2022 90 [facility] POTASSIUM CHLORIDE 10MEQ TAB,SA POTASSIU M CHLORIDE 10MEQ TAB,SA Disconti nued TAKE ONE TABLET BY MOUTH EVERY DAY FOR CONGESTI VE HEART FAILURE Nov 15, 2021 90 Nov 16, 2022 [id number] August 15, [address] [facility] ORAL DISCONT INUED 11/16/2022 [id number] AFRICA CHAUHAN 2021 90 [facility] ROSUVASTATI N CA 20MG TAB ROSUVAST ATIN CA 20MG TAB Active TAKE ONE TABLET BY MOUTH AT BEDTIME FOR CORONARY ARTERY DISEASE FOR CORONARY ARTERY DISEASE Jul 17, 2023 90 Jul 17, 2024 [id number] Sep 24, [address] [facility] ORAL ACTIVE 07/17/2024 [id number] AFRICA CHAUHAN 2023 90 [facility] ROSUVASTATI N CA 20MG TAB ROSUVAST ATIN CA 20MG TAB Disconti nued TAKE ONE TABLET BY MOUTH AT BEDTIME FOR CORONARY ARTERY DISEASE FOR CORONARY ARTERY DISEASE August 07, 2022 90 August 08, 2023 [id number] Jun 09, 2023 AFRICA CHAUHAN [facility] ORAL DISCONT INUED 08/08/2023 [id number] AFRICA CHAUHAN 2022 90 [facility] TAMSULOSIN HCL 0.4MG CAP TAMSULOS IN HCL 0.4MG CAP Active TAKE ONE CAPSULE BY MOUTH EVERY EVENING FOR PROSTATE FOR PROSTATE Jul 17, 2023Jul 17, 2024 [id number] Oct 05, 2023 AFRICA CHAUHAN [facility] ORAL ACTIVE 07/17/2024 [id number] AFRICA CHAUHAN 2023 30 [facility] Site Reaction Lot Number CVX 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 Comments Source COVID-19 ([employer]), MRNA, LNP-S, BIVALENT, PF, 30 MCG/0.3 ML DOSE 2022 300 complet ed [facility] COVID-19 (PFIZER), MRNA, LNP-S, PF, 30 MCG/0.3 ML DOSE, JAMES-SUCROSE (AGES 12+ YEARS) 2021 217 complet ed [facility] COVID-19 ([employer]), MRNA, LNP-S, PF, 30 MCG/0.3 ML DOSE 2020 208 complet ed [facility] ZOSTER RECOMBINANT 2 2020 187 complet ed [facility] INFLUENZA VACCINE, QUADRIVALENT, ADJUVANTED 2020 205 complet ed [facility] INFLUENZA, UNSPECIFIED FORMULATION 2020 88 complet ed [facility] ZOSTER RECOMBINANT 1 2020 187 complet [facility] COVID-19 (PFIZER), MRNA, LNP-S, PF, 30 [...] PPV23 2016 33 complet ed [employer] , [id number], 06/03/18 [facility] TD (ADULT), 2 [...] 2009 109 complet ed [employer],093 02, 011 [facility] TDAP 2009 115 [...] 17, 2023 04:23 PM Reporting Lab: [facility] [address] Performing Lab: [facility] [address] [facility] URINALYS IS SPECIFIC GRAVITY OF URINE 1.006 1.003 - 1.035 07/16 Specimen Type: URINE No comment entered. Ordering Provider: TERRENCE CHAUHAN Report Released Date/Time: Jul 17, 2023 04:23 PM Reporting Lab: [facility] [address] Performing Lab: [facility] [address] [facility] URINALYS IS BILIRUBIN. TOTAL [PRESENCE] IN URINE BY TEST STRIP NEGATIVE 07/16 Specimen Type: URINE No comment entered. Ordering Provider: TERRENCE CHAUHAN Report Released Date/Time: Jul 17, 2023 04:23 PM Reporting Lab: [facility] [address] Performing Lab: [facility] [phone] [facility] URINALYS IS KETONES [MASS/VOLU ME] IN URINE BY TEST STRIP NEGATIVE 07/16 Specimen Type: URINE No comment entered. Ordering Provider: TERRENCE CHAUHAN Report Released Date/Time: Jul 17, 2023 04:23 PM Reporting Lab: [facility] [address] Performing Lab: [facility] [address] [place] [facility] URINALYS IS GLUCOSE [MASS/VOLU ME] IN URINE BY TEST STRIP NEGATIVE mg/dL 07/16 Specimen Type: URINE No comment entered. Ordering Provider: TERRENCE CHAUHAN Report Released Date/Time: Jul 17, 2023 04:23 PM Reporting Lab: [facility] [address] Performing Lab: [facility] [address] [place] [facility] URINALYS IS PROTEIN [MASS/VOLU ME] IN URINE BY TEST STRIP NEGATIVE mg/dL 07/16 Specimen Type: URINE No comment entered. Ordering Provider: TERRENCE CHAUHAN Report Released Date/Time: Jul 17, 2023 04:23 PM Reporting Lab: [facility] [address] Performing Lab: [facility] [address] [place] [facility] URINALYS IS PH OF URINE BY TEST STRIP 7.0 5.0 - 8.0 07/16 Specimen Type: URINE No comment entered. Ordering Provider: TERRENCE CHAUHAN Report Released Date/Time: Jul 17, 2023 04:23 PM Reporting Lab: [facility] [address] Performing Lab: [facility] [address] [facility] URINALYS IS LEUKOCYTES [#/AREA] IN URINE SEDIMENT BY MICROSCOPY HIGH POWER FIELD <1/[HPF] 0 - 7 07/16 Specimen Type: URINE No comment entered. Ordering Provider: TERRENCE CHAUHAN Report Released Date/Time: Jul 17, 2023 04:23 PM Reporting Lab: [facility] [address] Performing Lab: [facility] [address] [place] [facility] URINALYS IS BACTERIA [PRESENCE] IN URINE SEDIMENT BY LIGHT MICROSCOPY NONE SEEN 07/16 Specimen Type: URINE No comment entered. Ordering Provider: TERRENCE CHAUHAN Report Released Date/Time: Jul 17, 2023 04:23 PM Reporting Lab: [facility] [address] Performing Lab: [facility] [address] [place] [facility] URINALYS IS ERYTHROCYT ES [#/AREA] IN URINE SEDIMENT BY MICROSCOPY HIGH POWER FIELD <1/[HPF] 0 - 3 07/16 Specimen Type: URINE No comment entered. Ordering Provider: TERRENCE CHAUHAN Report Released Date/Time: Jul 17, 2023 04:23 PM Reporting Lab: [facility] [address] Performing Lab: [facility] [address] [place] [facility] URINALYS IS APPEARANCE OF URINE CLEAR 07/16 Specimen Type: URINE No comment entered. Ordering Provider: TERRENCE CHAUHAN Report Released Date/Time: Jul 17, 2023 04:23 PM Reporting Lab: [facility] [phone] Performing Lab: [facility] [address] [place] [facility] URINALYS IS EPITHELIAL CELLS.SQUA MOUS [#/AREA] IN URINE SEDIMENT BY MICROSCOPY HIGH POWER FIELD NONE SEEN/[HP F] 07/16 Specimen Type: URINE No comment entered. Ordering Provider: TERRENCE CHAUHAN Report Released Date/Time: Jul 17, 2023 04:23 PM Reporting Lab: [facility] [address] Performing Lab: [facility] [address] [place] [facility] URINALYS IS HEMOGLOBIN [PRESENCE] IN URINE BY TEST STRIP NEGATIVE 07/16 Specimen Type: URINE No comment entered. Ordering Provider: TERRENCE CHAUHAN Report Released Date/Time: Jul 17, 2023 04:23 PM Reporting Lab: [facility] [address] Performing Lab: [facility] [address] [place] [facility] URINALYS IS NITRITE [PRESENCE] IN URINE BY TEST STRIP NEGATIVE 07/16 Specimen Type: URINE No comment entered. Ordering Provider: TERRENCE CHAUHAN Report Released Date/Time: Jul 17, 2023 04:23 PM Reporting Lab: [facility] [address] Performing Lab: [facility] [address] [place] [facility] URINALYS IS LEUKOCYTE ESTERASE [PRESENCE] IN URINE BY TEST STRIP NEGATIVE 07/16 Specimen Type: URINE No comment entered. Ordering Provider: TERRENCE CHAUHAN Report Released Date/Time: Jul 17, 2023 04:23 PM Reporting Lab: [facility] [address] Performing Lab: [facility] [address] [place] [facility] HEMOGLOB IN A1C HEMOGLOBIN A1C/HEMOGL [...] 07, 2022 02:21 PM Reporting Lab: [facility] [address] Performing Lab: [facility] [address] [place] [facility] BASIC METABOLI C PANEL+MG CREATININE [MASS/VOLU ME] IN SERUM OR PLASMA 1.3 mg/dL 0.7 - 1.2 07/16 H Specimen Type: PLASMA No comment entered. Ordering Provider: TERRENCE CHAUHAN Report Released Date/Time: August 07, 2022 02:21 PM Reporting Lab: [facility] [address] Performing Lab: [facility] [address] [place] [facility] BASIC METABOLI C PANEL+MG UREA NITROGEN [MASS/VOLU ME] IN SERUM OR PLASMA 15 mg/dL 8 - 26 07/16 Specimen Type: PLASMA No comment entered. Ordering Provider: TERRENCE CHAUHAN Report Released Date/Time: August 07, 2022 02:21 PM Reporting Lab: [facility] [address] Performing Lab: [facility] [address] [place] [facility] BASIC METABOLI C PANEL+MG GLUCOSE [MASS/VOLU ME] IN SERUM OR PLASMA 84 mg/dL 70 - 100 07/16 Specimen Type: PLASMA No comment entered. Ordering Provider: TERRENCE CHAUHAN Report Released Date/Time: August 07, 2022 02:21 PM Reporting Lab: [facility] [address] Performing Lab: [facility] [address] [place] [facility] BASIC METABOLI C PANEL+MG SODIUM [MOLES/VOL UME] IN SERUM OR PLASMA 137 mmol/L 136 - 145 07/16 Specimen Type: PLASMA No comment entered. Ordering Provider: TERRENCE CHAUHAN Report Released Date/Time: August 07, 2022 02:21 PM Reporting Lab: [facility] [address] Performing Lab: [facility] [address] [place] [facility] BASIC METABOLI C PANEL+MG POTASSIUM [MOLES/VOL UME] IN SERUM OR PLASMA 4.6 mmol/L 3.5 - 5.1 07/16 Specimen Type: PLASMA No comment entered. Ordering Provider: TERRENCE CHAUHAN Report Released Date/Time: August 07, 2022 02:21 PM Reporting Lab: [facility] [address] Performing Lab: [facility] [address] [place] [facility] BASIC METABOLI C PANEL+MG CHLORIDE [MOLES/VOL UME] IN SERUM OR PLASMA 105 mmol/L 98 - 107 07/16 Specimen Type: PLASMA No comment entered. Ordering Provider: TERRENCE CHAUHAN Report Released Date/Time: August 07, 2022 02:21 PM Reporting Lab: [facility] [address] Performing Lab: [facility] [address] [place] [facility] BASIC METABOLI C PANEL+MG CARBON DIOXIDE, TOTAL [MOLES/VOL UME] IN SERUM OR PLASMA 24 mmol/L 22 - 29 07/16 Specimen Type: PLASMA No comment entered. Ordering Provider: TERRENCE CHAUHAN Report Released Date/Time: August 07, 2022 02:21 PM Reporting Lab: [facility] [address] Performing Lab: [facility] [address] [place] [facility] BASIC METABOLI C PANEL+MG CALCIUM [MASS/VOLU ME] IN SERUM OR PLASMA 8.9 mg/dL 8.4 - 10.2 07/16 Specimen Type: PLASMA No comment entered. Ordering Provider: TERRENCE CHAUHAN Report Released Date/Time: August 07, 2022 02:21 PM Reporting Lab: [facility] [address] Performing Lab: [facility] [address] [place] [facility] BASIC METABOLI C PANEL+MG MAGNESIUM [MASS/VOLU ME] IN SERUM OR PLASMA 2.1 mg/dL 1.6 - 2.6 07/16 Specimen Type: PLASMA No comment entered. Ordering Provider: TERRENCE CHAUHAN Report Released Date/Time: August 07, 2022 02:21 PM Reporting Lab: [facility] [address] Performing Lab: [facility] [address] [place] [facility] BASIC METABOLI C PANEL+MG ANION GAP IN SERUM OR PLASMA 8 mmol/L 5 - 15 07/16 Specimen Type: PLASMA No comment entered. Ordering Provider: TERRENCE CHAUHAN Report Released Date/Time: August 07, 2022 02:21 PM Reporting Lab: [facility] [address] Performing Lab: [facility] [address] [place] [facility] BASIC METABOLI C PANEL+MG GLOMERULAR FILTRATION RATE/1.73 SQ M.PREDICTE D [VOLUME RATE/AREA] IN SERUM, PLASMA OR BLOOD BY CREATININE -BASED FORMULA (CKD-EPI 2020) 56 60 07/16 L Specimen Type: PLASMA No comment entered. Ordering Provider: TERRENCE CHAUHAN Report Released Date/Time: August 07, 2022 02:21 PM Reporting Lab: [facility] [address] Performing Lab: [facility] [address] [place] [facility] LIVER FUNCTION TESTS BILIRUBIN. TOTAL [MASS/VOLU ME] IN SERUM OR PLASMA 0.8 mg/dL 0.2 - 1.2 07/16 Specimen Type: PLASMA No comment entered. Ordering Provider: TERRENCE CHAUHAN Report Released Date/Time: August 07, 2022 02:21 PM Reporting Lab: [facility] [phone] Performing Lab: [facility] [phone] [place] [facility] LIVER FUNCTION TESTS ALKALINE PHOSPHATAS E [ENZYMATIC ACTIVITY/V OLUME] IN SERUM OR PLASMA 52 U/L 40 - 150 07/16 Specimen Type: PLASMA No comment entered. Ordering Provider: TERRENCE CHAUHAN Report Released Date/Time: August 07, 2022 02:21 PM Reporting Lab: [facility] [phone] Performing Lab: [facility] [phone] [place] [facility] LIVER FUNCTION TESTS ALANINE AMINOTRANS FERASE [ENZYMATIC ACTIVITY/V OLUME] IN SERUM OR PLASMA 20 U/L <55 - 55 07/16 Specimen Type: PLASMA No comment entered. Ordering Provider: TERRENCE CHAUHAN Report Released Date/Time: August 07, 2022 02:21 PM Reporting Lab: [facility] [phone] Performing Lab: [facility] [phone] [place] [facility] LIVER FUNCTION TESTS ASPARTATE AMINOTRANS FERASE [ENZYMATIC ACTIVITY/V OLUME] IN SERUM OR PLASMA 19 U/L <34 - 34 07/16 Specimen Type: PLASMA No comment entered. Ordering Provider: TERRENCE CHAUHAN Report Released Date/Time: August 07, 2022 02:21 PM Reporting Lab: [facility] [phone] Performing Lab: [facility] [phone] [place] [facility] LIVER FUNCTION TESTS GAMMA GLUTAMYL TRANSFERAS E [ENZYMATIC ACTIVITY/V OLUME] IN SERUM OR PLASMA 38 U/L <64 - 64 07/16 Specimen Type: PLASMA No comment entered. Ordering Provider: TERRENCE CHAUHAN Report Released Date/Time: August 07, 2022 02:21 PM Reporting Lab: [facility] [phone] Performing Lab: [facility] [phone] [place] [facility] CBC LEUKOCYTES [#/VOLUME] IN BLOOD BY AUTOMATED COUNT 8.72 10*3/uL 4.0 - 11.0 07/16 Specimen Type: BLOOD No comment entered. Ordering Provider: TERRENCE CHAUHAN Report Released Date/Time: August 07, 2022 02:21 PM Reporting Lab[facility] [facility] [address] Performing Lab: [facility] [address] [place] [facility] CBC ERYTHROCYT ES [#/VOLUME] IN BLOOD BY AUTOMATED COUNT 4.11 10*6/uL 4.6 - 6.2 07/16 L Specimen Type: BLOOD No comment entered. Ordering Provider: TERRENCE CHAUHAN Report Released Date/Time: August 07, 2022 02:21 PM Reporting Lab: [facility] [address] Performing Lab: [facility] [address] [place] [facility] CBC HEMOGLOBIN [MASS/VOLU ME] IN BLOOD 13.4 g/dL 13.5 - 17.9 07/16 L Specimen Type: BLOOD No comment entered. Ordering Provider: TERRENCE CHAUHAN Report Released Date/Time: August 07, 2022 02:21 PM Reporting Lab: [facility] [address] Performing Lab: [facility] [address] [place] [facility] CBC HEMATOCRIT [VOLUME FRACTION] OF BLOOD BY AUTOMATED COUNT 39.7 41 - 54 07/16 L Specimen Type: BLOOD No comment entered. Ordering Provider: TERRENCE CHAUHAN Report Released Date/Time: August 07, 2022 02:21 PM Reporting Lab: [facility] [address] Performing Lab: [facility] [address] [place] [facility] CBC MCV [ENTITIC VOLUME] BY AUTOMATED COUNT 96.6 fL 80 - 100 07/16 Specimen Type: BLOOD No comment entered. Ordering Provider: TERRENCE CHAUHAN Report Released Date/Time: August 07, 2022 02:21 PM Reporting Lab: [facility] [address] Performing Lab: [facility] [address] [place] [facility] CBC MCH [ENTITIC MASS] BY AUTOMATED COUNT 32.6 pg 27 - 33 07/16 Specimen Type: BLOOD No comment entered. Ordering Provider: TERRENCE CHAUHAN Report Released Date/Time: August 07, 2022 02:21 PM Reporting Lab: [facility] [address] Performing Lab: [facility] [address] [place] [facility] CBC MCHC [MASS/VOLU ME] BY AUTOMATED COUNT 33.8 g/dL 32.0 - 37.5 07/16 Specimen Type: BLOOD No comment entered. Ordering Provider: TERRENCE CHAUHAN Report Released Date/Time: August 07, 2022 02:21 PM Reporting Lab: [facility] [address] Performing Lab: [facility] [address] [place] [facility] CBC PLATELETS [#/VOLUME] IN BLOOD BY AUTOMATED COUNT 159 10*3/uL 150 - 400 07/16 Specimen Type: BLOOD No comment entered. Ordering Provider: TERRENCE CHAUHAN Report Released Date/Time: August 07, 2022 02:21 PM Reporting Lab: [facility] [address] Performing Lab: [facility] [address] [place] [facility] CBC PLATELET MEAN VOLUME [ENTITIC VOLUME] IN BLOOD BY AUTOMATED COUNT 9.6 fL 7.4 - 10.4 07/16 Specimen Type: BLOOD No comment entered. Ordering Provider: TERRENCE CHAUHAN Report Released Date/Time: August 07, 2022 02:21 PM Reporting Lab: [facility] [address] Performing Lab: [facility] [address] [place] [facility] CBC ERYTHROCYT E DISTRIBUTI ON WIDTH [RATIO] BY AUTOMATED COUNT 14.1 11.5 - 14.5 07/16 Specimen Type: BLOOD No comment entered. Ordering Provider: TERRENCE CHAUHAN Report Released Date/Time: August 07, 2022 02:21 PM Reporting Lab: [address] Performing Lab: [place] [address] [place] [facility] PSA PROSTATE SPECIFIC AG [MASS/VOLU ME] IN SERUM OR PLASMA 3.84 ng/mL <4.00 - 4.00 07/16 Specimen Type: SERUM No comment entered. Ordering Provider: TERRENCE CHAUHAN Report Released Date/Time: August 07, 2022 02:21 PM Reporting Lab: [place] [address] Performing Lab: [place] [address] [place] [facility] CREATINI NE(INCLU SATHYA EGFR) CREATININE [MASS/VOLU ME] IN SERUM OR PLASMA 1.2 mg/dL 0.7 - 1.2 04/16 Specimen Type: PLASMA No comment entered. Ordering Provider: HUYEN HYLTON Report Released Date/Time: Mar 07, 2023 02:00 PM Reporting Lab: [place] [address] Performing Lab: [place] [address] [place] [facility] CREATINI NE(INCLU SATHYA EGFR) GLOMERULAR FILTRATION RATE/1.73 SQ M.PREDICTE D [VOLUME RATE/AREA] IN SERUM, PLASMA OR BLOOD BY CREATININE -BASED FORMULA (CKD-EPI 2020) 62 60 04/16 Specimen Type: PLASMA No comment entered. Ordering Provider: HUYEN HYLTON Report Released Date/Time: Mar 07, 2023 02:00 PM Reporting Lab: [address] Performing Lab: [address] [facility] CBC LEUKOCYTES [#/VOLUME] IN BLOOD BY AUTOMATED COUNT 8.06 10*3/uL 4.0 - 11.0 04/16 Specimen Type: BLOOD No comment entered. Ordering Provider: HUYEN HYLTON Report Released Date/Time: Mar 07, 2023 02:00 PM Reporting Lab: [place] [address] Performing Lab: [place] [address] [place] [facility] CBC ERYTHROCYT ES [#/VOLUME] IN BLOOD BY AUTOMATED COUNT 4.03 10*6/uL 4.6 - 6.2 04/16 L Specimen Type: BLOOD No comment entered. Ordering Provider: HUYEN HYLTON Report Released Date/Time: Mar 07, 2023 02:00 PM Reporting Lab: [place] [address] Performing Lab: [place] [address] [place] [facility] CBC HEMOGLOBIN [MASS/VOLU ME] IN BLOOD 13.1 g/dL 13.5 - 17.9 04/16 L Specimen Type: BLOOD No comment entered. Ordering Provider: HUYEN HYLTON Report Released Date/Time: Mar 07, 2023 02:00 PM Reporting Lab: [place] [address] Performing Lab: [place] [address] [place] [facility] CBC HEMATOCRIT [VOLUME FRACTION] OF BLOOD BY AUTOMATED COUNT 38.9 41 - 54 04/16 L Specimen Type: BLOOD No comment entered. Ordering Provider: HUYEN HYLTON Report Released Date/Time: Mar 07, 2023 02:00 PM Reporting Lab: [place] [address] Performing Lab: [place] [address] [facility] CBC MCV [ENTITIC VOLUME] BY AUTOMATED COUNT 96.5 fL 80 - 100 04/16 Specimen Type: BLOOD No comment entered. Ordering Provider: HUYEN HYLTON Report Released Date/Time: Mar 07, 2023 02:00 PM Reporting Lab: [place] [address] Performing Lab: [place] [address] [place] [facility] CBC MCH [ENTITIC MASS] BY AUTOMATED COUNT 32.5 pg 27 - 33 04/16 Specimen Type: BLOOD No comment entered. Ordering Provider: HUYEN HYLTON Report Released Date/Time: Mar 07, 2023 02:00 PM Reporting Lab: [facility] [address] Performing Lab: [facility] [address] [place] [facility] CBC MCHC [MASS/VOLU ME] BY AUTOMATED COUNT 33.7 g/dL 32.0 - 37.5 04/16 Specimen Type: BLOOD No comment entered. Ordering Provider: HUYEN HYLTON Report Released Date/Time: Mar 07, 2023 02:00 PM Reporting Lab: [facility] [address] Performing Lab: [facility] [address] [place] [facility] CBC PLATELETS [#/VOLUME] IN BLOOD BY AUTOMATED COUNT 157 10*3/uL 150 - 400 04/16 Specimen Type: BLOOD No comment entered. Ordering Provider: HUYEN HYLTON Report Released Date/Time: Mar 07, 2023 02:00 PM Reporting Lab: [facility] [address] Performing Lab: [facility] [address] [facility] CBC PLATELET MEAN VOLUME [ENTITIC VOLUME] IN BLOOD BY AUTOMATED COUNT 9.7 fL 7.4 - 10.4 04/16 Specimen Type: BLOOD No comment entered. Ordering Provider: HUYEN HYLTON Report Released Date/Time: Mar 07, 2023 02:00 PM Reporting Lab: [facility] [address] Performing Lab: [facility] [address] [facility] CBC ERYTHROCYT E DISTRIBUTI ON WIDTH [RATIO] BY AUTOMATED COUNT 14.5 11.5 - 14.5 04/16 Specimen Type: BLOOD No comment entered. Ordering Provider: HUYEN HYLTON Report Released Date/Time: Mar 07, 2023 02:00 PM Reporting Lab: [facility] [address] Performing Lab: [facility] [address] [place] [facility] AST/SGOT ASPARTATE AMINOTRANS FERASE [ENZYMATIC ACTIVITY/V OLUME] IN SERUM OR PLASMA 22 U/L <34 - 34 04/16 Specimen Type: PLASMA No comment entered. Ordering Provider: HUYEN HYLTON Report Released Date/Time: Mar 07, 2023 02:00 PM Reporting Lab: [facility] [address] Performing Lab: [facility] [address] [place] [facility] ALT/SGPT ALANINE AMINOTRANS FERASE [ENZYMATIC ACTIVITY/V OLUME] IN SERUM OR PLASMA 19 U/L <55 - 55 04/16 Specimen Type: PLASMA No comment entered. Ordering Provider: HUYEN HYLTON Report Released Date/Time: Mar 07, 2023 02:00 PM Reporting Lab: [facility] [address] Performing Lab: [facility] [address] [place] [facility] Vital Signs Combined list of [...] DC Date Status Disposition Source [place] [facility] Outpatient Encounter [id number] 04/24 [facility] EMERGENCY DEPT VISIT SF MDM [id number] Diagnos is: ICD-10- CM Z76.0 Encount er for issue of repeat prescri ption<b r/> AICHA GALLEGOS 05/09 [facility] L [facility] Outpatient Encounter [id number] 05/09 [facility] [place] [facility] Outpatient Encounter [id number] 06/12 [place] [facility] [place] [facility] Outpatient Encounter [id number] 07/15 [place] [facility] [place] [facility] OFFICE O/P EST MOD 30-39 MIN [id number] Diagnos is: ICD-10- CM Z00.01 Encount er for general adult medical exam w abnorma l finding s
RILEYDANETTE LY E 08/07 [place] [place] [facility] Outpatient Encounter [id number] 08/07 [place] [place] [facility] Outpatient Encounter [id number] OLESYA ROGERS HIA M 08/12 [place] [place] [facility] Outpatient Encounter [id number] OLESYA ROGERS HIA M 08/12 [place] [place] [facility] Outpatient Encounter [id number] Ana CHAUHAN 09/12 [place] [place] [facility] Outpatient Encounter [id number] 11/06 [place] [place] [facility] Outpatient Encounter [id number] 12/08 [place] [place] [facility] Outpatient Encounter [id number] 12/12 [place] [facility] [place] [facility] Outpatient Encounter [id number] 01/17 [place] [facility] [place] [facility] Outpatient Encounter [id number] 02/19 [place] [facility] [place] [facility] Outpatient Encounter [id number] 02/24 [place] [place] [facility] Outpatient Encounter [id number] 03/07 [facility] [place] [facility] QNHP OL DIG ASSMT&MGMT 5-10 [id number] Diagnos is: ICD-10- CM Z79.01 long-term (curren t) use of anticoa gulants
[facility] O[facility]P EST MOD 30 MIN [id number] Diagnos is: ICD-10- CM Z00.01 Encount er for general adult medical exam w abnorma l finding s
Ana CHAUHAN [place] 07/16 [facility] [place] [facility] Outpatient Encounter [id number] 07/17 [facility] Social History Combined list of available smoking, tobacco, and other social history from [facility] and [facility] facilities. Social History Type Response Date Comment [facility] Tobacco smoking status IAIS [place]-TOBACCO FORMER USER 07/17/2023 [facility] of [facility] 07/17/2023 [facility] History of tobacco use [place]-TOBACCO FORMER USER 08/07/2022 [facility] History of tobacco use [place]-TOBACCO FORMER USER 10/16/2020 [facility] History of tobacco use WA-TOBACCO USE CO UNSEL NO 03/29/2019 [facility] History of tobacco use WA-TOBACCO USE [place] 30 MIN OF WAKEUP 02/17/2018 [facility] History of [...]
--- OUTSIDE RECORDS SUMMARY | 2023-10-16 15:41 | XMS_ITS | Data Portability ---
Author Organization [place] [facility], [employer] Address [address] [place] [address] Assessment Encounter Date Assessment Date Assessment LastModified [...] user Active 2015 Tobacco user; Original Code: 993311868 Origi nal Codesystem: SNOMED CT Classificati on: Medical Confirm ation Status: Probable Not Available [facility] Onychomycosis of toenails Active 2015 Onychomycosis of toenails; Original Code: 8916365035 Orig inal Codesystem: SNOMED CT Classificati on: Medical Confirm ation Status: Confirmed Not Available [facility] 3 09:10:17 Heart disease Active 2021 Heart disease; Original Code: 91324451 Origin al Codesystem: SNOMED CT Classificati on: Medical Confirm ation Status: Confirmed Not Available [facility] 3 09:10:17 Corns and callus Active 2015 Corns and callus; Original Code: 982175731 Origi nal Codesystem: SNOMED CT Classificati on: Medical Confirm ation Status: Confirmed Not Available [facility] 3 09:10:17 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; Original Code: 7224985504 Orig inal Codesystem: SNOMED CT Classificati on: Medical Confirm ation Status: Confirmed Not Available [facility] 3 09:10:17 Foot pain Active 2015 Foot pain; Original Code: 375378260 Origi nal Codesystem: SNOMED CT Classificati on: Medical Confirm ation Status: Confirmed Not Available [facility] 3 09:10:17 Acquired hallux valgus Active 2015 Acquired hallux valgus; Original Code: 305145363 Origi nal Codesystem: SNOMED CT Classificati on: Medical Confirm ation Status: Confirmed Not Available [facility] 3 09:10:17 Acquired hallux malleus Active 2015 Acquired hallux malleus; Original Code: 49202796 Origin al Codesystem: SNOMED CT Classificati on: Medical Confirm ation Status: Confirmed Not Available [facility] 3 09:10:17 Atrial fibrillation Active 2015 Atrial fibrillation; Original Code: 93296166 Origin al Codesystem: SNOMED CT Classificati on: Medical Confirm ation Status: Confirmed Not Available [facility] 3 09:10:17 Hypertensive disorder Active 2015 Hypertensive disorder; Original Code: 6547409195 Orig inal Codesystem: SNOMED CT Classificati on: Medical Confirm ation Status: Confirmed Not Available [facility] 3 09:10:17 Notes:H/O: anticoagulant the rapy Original Code: 219716730 Original Codesystem: SNOMED CT Classification: Medical Confirmation Status: Confirmed Problem Notes None recorded. Procedures Surgical History Date Name Laterality Status Provider Name and Address Organization Details Recorded Time 10/24/[address] Hong Andres DPM [address] [place] [address], [phone], [facility] 10/23/2022 11:44:57 07/25/[address] Pitts completed Too Andres DPM [address] [place] [address], [phone], [facility] 07/24/2022 10:35:10 04/24/[address] Hong Andres DPM [address] [place] [address], [phone], [facility] 04/24/2022 11:13:18 [...] Updated DateTime 04/24/2022 190.5 cm 25 kg/m2 58859.47 g Mamta Corbett [facility] 04/24/2022 10:32:58 Social History None recorded. Functional Status None recorded. Mental Status None recorded. Family History Nothing Reported. Medical History No medical history recorded. Past Encounters Encounter ID Performer Location Encounter Start Date Encounter Closed Date Diagnosis/Indication Diagnosis SNOMED-CT Code [id number] Too Andres DPM [facility] [address] [place] [phone] 04/24/2022 10:31:04 04/24/2022 13:46:36 Onychomycosis 407493302 Peripheral vascular disease [id number] Too Andres DPM [facility] [address] [place] [phone] 07/24/2022 10:14:25 07/25/2022 09:45:42 Onychomycosis 209754544 Peripheral vascular disease 610241551 7314 Too Andres DPM [facility] [address] [place] [address] 10/23/2022 10:13:43 10/24/2022 09:44:58 Onychomycosis 120621810 Peripheral vascular disease 940055649 Health Concerns Section Related Observation LastModified by Organization Detai ls LastModified Time None Recorded Concern Status LastModified by Organization Details LastModified Time None Recorded Advance Directives Directive None Recorded Payers Encounter Date Sequence Insurance Name Policy Number Policy Kevin Covered Member ID Kevin Member ID Guarantor Name 04/24/2022 1 [employer] [id number] Bola Zurita [id number] Bola Zurita 07/24/2022 1 [place] [id number] Bola Zurita [id number] Bola Zurita 10/23/2022 1 [place]) [id number] Bola J Parminder [id number] Bola Zurita Notes Date Note Type Note Provider Name and Address Organization Details Recorded Time 04/24/2022 text/html HPI Notes: Pawel salmeron is a 77 year old male established patient who presents with the chief complaint. Presents today for evaluation of problematic toenails and feet in general. They relate chronic thickening and deformity to their toenails that has not responded to self-trimming, topical hvpy-fsj-gjgtdvg anti-fungal therapy, foot soaks, and other similar conservative treatments. Nails are painful with catching on shoegear and socks. Denies any recent foot injury or infection. Claudication symptoms: No Burning symptoms: No Paresthesia: Subjective numbness to the left lower extremity consistent with his previous surgical procedures performed through [facility] Patient presents for further evaluation and treatment options. Too Andres DPM [address] [place], [address], [facility] 04/24/2022 11:14:44 07/24/2022 text/html HPI Notes: Pawel salmeron is a 77 year old male established patient who presents with the chief complaint. Presents today for evaluation of problematic toenails and feet in general. They relate chronic thickening and deformity to their toenails that has not responded to self-trimming, topical yief-jtk-wumw[place] anti-fungal therapy, foot soaks, and other similar conservative treatments. Nails are painful with catching on shoegear and socks. Denies any recent foot injury or infection. Claudication symptoms: No Burning symptoms: No Paresthesia: Subjective numbness to the left lower extremity consistent with his previous surgical procedures performed through [facility] Patient presents for further evaluation and treatment options. Too Andres DPM [address] [place], [address], [facility] 07/24/2022 10:35:54 10/23/2022 text/html HPI Notes: Pawel salmeron is a 77 year old male established patient who presents with the chief complaint. Presents today for evaluation of problematic toenails and feet in general. They relate chronic thickening and deformity to their toenails that has not responded to self-trimming, topical sulb-zhy-iijlanm anti-fungal therapy, foot soaks, and other similar conservative treatments. Nails are painful with catching on shoegear and socks. Denies any recent foot injury or infection. Claudication symptoms: No Burning symptoms: No Paresthesia: Subjective numbness to the left lower extremity consistent with his previous surgical procedures performed through [facility] Patient presents for further evaluation and treatment options. Too Andres DPM [address] [place], [address], [facility] 10/23/2022 11:45:19
--- OUTSIDE RECORDS SUMMARY | 2023-10-16 15:41 | XMS_ITS | Clinical Summary ---
Author Organization [facility] Address [place], [place] [address] Care Team Providers Care Professor Of Theatre Name Role Phone Klever Monte MD Primary Care Provider [phone]- [phone] Allergies Active Allergy Reactions Criticality Noted Date [...] glide device 08/01/20 1. 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 Panlobular emphysema 10/21/2018 COPD [...] Requisition [facility] [phone] Unknown, Doctor 08/04/2023 8:35 AM CDT Office Visit [facility] [address] [place] [address] Jena Pascual PA Follow Up (Boil) 08/04/2023 Travel 08/01/2023 8:35 AM CDT Office Visit [facility] [address] [facility] [place] [address] Jena Pascual PA Derm Problem 08/01/2023 Travel [...] T Respiratory Rate 18 03/17/2023 3:35 PM PUBLIC RELATIONS ASSISTANT Oxygen Saturation 96% 08/04/2023 8:35 AM CDT Inhaled Oxygen Concentration - - Weight 90.7 kg (200 lb) 08/04/2023 8:35 AM CDT Height 190.5 cm (6' 3) 03/17/2023 2:07 PM PUBLIC RELATIONS ASSISTANT Body Mass Index 25 03/17/2023 2:07 PM PUBLIC RELATIONS ASSISTANT Plan of Treatment Health Maintenance Due [...] back ANTI HCV Routine 05/16/2021 3:20 PM PUBLIC RELATIONS ASSISTANT Need for hepatitis C screening test CT CHEST WO Routine 08/29/2010 4:53 PM CDT Pulmonary nodules from Last 3 Months or Most Recently Relevant to Health Maintenance Results * LAB TRACKING EVENT (08/05/2023 2:01 PM CDT) Other (Other) Client Collect / Unknown 08/05/2023 2:01 PM CDT 08/05/2023 9:37 PM CDT Doctor Unknown LAB BILL ONLY [facility] [address] [place] [address], * PATH TISSUE EXAM (08/05/2023 2:01 PM CDT) Case Report Pathology Report ?Case: [id number] ? Authorizing Provider: ??Unknown, Doctor ?Collected: ? 08/05/2023 1401 ? Ordering Location: ? [facility] ?Received: ?08/06/2023 1013 ? Pathologist: ? Jose Rinaldi MD ? Specimen: ?Back ? 08/07/2023 4:47 PM CDT [facility] Final Diagnosis A) SKIN, BACK, CYST, EXCISION: 1. Epidermoid cyst 2. Negative for dysplasia or malignancy 08/07/2023 4:47 PM CDT [facility] Clinical Information back cyst 08/07/2023 4:47 PM CDT [facility] Gross Description A) Received in formalin, labeled with the patient's name and date of , is a 1.5 x 1.1 x 0.3 cm aggregate of pale-garcia cyst wall fragments admixed with garcia-white soft, friable cyst contents. ??The specimen is filtered and submitted entirely in 1 cassette. [facility] 08/06/2023 08/07/2023 4:47 PM CDT [facility] Microscopic Description The final diagnosis is based on microscopic examination of appropriate sections of all specimens. 08/07/2023 4:47 PM CDT [facility] Additional Information Interpreted at [facility] - [address] [address] 08/07/2023 4:47 PM CDT [facility] Other (Back) 08/05/2023 2:01 PM CDT 08/06/2023 10:13 AM CDT Doctor Unknown PATHOLOGY/CYTOLOGY [facility] [address] [place] [address], * AEROBIC BACTERIAL CULTURE, STAIN (08/01/2023 9:30 AM CDT) CULTURE No Growth. 08/03/2023 3:00 PM CDT [facility] GRAM STAIN 4+ RBCs 08/03/2023 3:00 PM CDT [facility] GRAM STAIN 1+ PMNs 08/03/2023 3:00 PM CDT [facility] GRAM STAIN No Epithelial cells 08/03/2023 3:00 PM CDT [facility] GRAM STAIN 4+ Gram Positive Cocci 08/03/2023 3:00 PM CDT [facility] GRAM STAIN 3+ Gram Negative Bacilli 08/03/2023 3:00 PM CDT [facility] Other (Other) Non-Blood / Unknown 08/01/2023 9:30 AM CDT 08/01/2023 9:31 AM CDT Jena RICHARDSON MICROBIOLOGY [facility] [address] [place] [address], * ANTI HCV (05/16/2021 3:20 PM PUBLIC RELATIONS ASSISTANT) HEPATITIS C ANTIBODY Non-React edelmira Non-React edelmira 05/17/2021 1:21 AM PUBLIC RELATIONS ASSISTANT [facility] Comment:Antibodies to HCV no t detected; does not exclude the possibility of exposure to HCV. Blood BLOOD SPECIMEN / Unknown Venipuncture / Unknown 05/16/2021 3:20 PM PUBLIC RELATIONS ASSISTANT 05/16/2021 3:25 PM PUBLIC RELATIONS ASSISTANT Zak Garcia MD SEND OUTS Performing Organization Address City/[facility]/ZIP Co de Phone Number [facility] [address] [place] [address], * CT CHEST WO CONTRAST (08/29/2010 4:53 [...] Comments Code Status Discussion: Discussed Care Teams Professor Of Theatre Relationship Specialty Start Date End Date Klever Monte MD [address] [place] [address] PCP - General Family Practice 06/12/22
== END 2023-10-16 15:39 | disposition home or self-care (01) ==
LOC: WOUND 15:39
PROVIDERS: PCP Family Medicine; Visit Provider Nurse Practitioner Family
DX: L72.0 Epidermal cyst (principal); S61.211A Laceration without foreign body of left index finger without damage to nail, initial encounter
CPT/HCPCS: G0463

== ENCOUNTER 2023-10-20 10:22 | Outpatient (CLI) | payer MEDICARE, BC, SELFPAY ==
--- OUTSIDE RECORDS SUMMARY | 2023-10-20 10:24 | XMS_ITS | Clinical Summary ---
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 Panlobular emphysema 10/21/2018 COPD exacerbation 09/09/2018 [...] Department Care Team Description 08/05/2023 Lab Requisition [facility] [phone] Unknown, Doctor 08/04/2023 8:35 AM CDT Office Visit [facility] [address] [place] [address] Jena Pascual PA Follow Up (Boil) 08/04/2023 Travel 08/01/2023 8:35 AM CDT Office Visit [facility] [address] [place] [address] Jena Pascual PA Derm Problem 08/01/2023 Travel [...] T Respiratory Rate 18 03/17/2023 3:35 PM [employer]NALS INTELLIGENCE Oxygen Saturation 96% 08/04/2023 8:35 AM CDT Inhaled Oxygen Concentration - - Weight 90.7 kg (200 lb) 08/04/2023 8:35 AM CDT Height 190.5 cm (6' 3) 03/17/2023 2:07 PM [employer] Body Mass Index 25 03/17/2023 2:07 PM [employer]ICATION SIGNALS INTELLIGENCE Plan of Treatment Health Maintenance Due Date [...] back ANTI HCV Routine 05/16/2021 3:20 PM COMMUNICATION SIGNALS INTELLIGENCE Need for hepatitis C screening test CT CHEST WO Routine 08/29/2010 4:53 PM CDT Pulmonary nodules from Last 3 Months or Most Recently Relevant to Health Maintenance Results * LAB TRACKING EVENT (08/05/2023 2:01 PM CDT) Other (Other) Client Collect / Unknown 08/05/2023 2:01 PM CDT 08/05/2023 9:37 PM CDT Doctor Unknown LAB BILL ONLY [facility] [address] [place] [address], * PATH TISSUE EXAM (08/05/2023 2:01 PM CDT) Case Report Pathology Report ?Case: [id number] ? Authorizing Provider: ??Unknown, Doctor ?Collected: ? 08/05/2023 1401 ? Ordering Location: ? [facility] ?Received: ?08/06/2023 1013 ? Pathologist: ? Jose Rinaldi MD ? Specimen: ?Back ? 08/07/2023 4:47 PM CDT [facility] Final Diagnosis A) SKIN, BACK, CYST, EXCISION: 1. Epidermoid cyst 2. Negative for dysplasia or malignancy 08/07/2023 4:47 PM CDT [facility] Clinical Information back cyst 08/07/2023 4:47 PM CDT [facility] Gross Description A) Received in formalin, labeled with the patient's name and date of , is a 1.5 x 1.1 x 0.3 cm aggregate of pale-garcia cyst wall fragments admixed with garcia-white soft, friable cyst contents. ??The specimen is filtered and submitted entirely in 1 cassette. [facility] 08/06/2023 08/07/2023 4:47 PM CDT [facility] Microscopic Description The final diagnosis is based on microscopic examination of appropriate sections of all specimens. 08/07/2023 4:47 PM CDT [facility] Additional Information Interpreted at [facility] - [address] [address] 08/07/2023 4:47 PM CDT [facility] Other (Back) 08/05/2023 2:01 PM CDT 08/06/2023 10:13 AM CDT Doctor Unknown PATHOLOGY/CYTOLOGY [facility] [address] [place] [address], * AEROBIC BACTERIAL CULTURE, STAIN (08/01/2023 9:30 AM CDT) CULTURE No Growth. 08/03/2023 3:00 PM CDT [facility] GRAM STAIN 4+ RBCs 08/03/2023 3:00 PM CDT [facility] GRAM STAIN 1+ PMNs 08/03/2023 3:00 PM CDT [facility] GRAM STAIN No Epithelial cells 08/03/2023 3:00 PM CDT [facility] GRAM STAIN 4+ Gram Positive Cocci 08/03/2023 3:00 PM CDT [facility] GRAM STAIN 3+ Gram Negative Bacilli 08/03/2023 3:00 PM CDT [facility] Other (Other) Non-Blood / Unknown 08/01/2023 9:30 AM CDT 08/01/2023 9:31 AM CDT Jena RICHARDSON MICROBIOLOGY [facility] [address] [place] [address], * ANTI HCV (05/16/2021 3:20 PM COMMUNICATION SIGNALS INTELLIGENCE) HEPATITIS C ANTIBODY Non-React edelmira Non-React edelmira 05/17/2021 1:21 AM COMM[employer] SIGNALS INTELLIGENCE [facility] Comment:Antibodies to HCV no t detected; does not exclude the possibility of exposure to HCV. Blood BLOOD SPECIMEN / Unknown Venipuncture / Unknown 05/16/2021 3:20 PM COMM[employer]ICATION SIGNALS INTELLIGENCE 05/16/2021 3:25 PM COMM[employer]NALS INTELLIGENCE Zak Garcia MD SEND OUTS Performing Organization Address City/[facility]/ZIP Co de Phone Number [facility] [address] [place] [address], * CT CHEST WO CONTRAST (08/29/2010 4:53 [...] Comments Code Status Discussion: Discussed Care Teams Asphalt Distributor Operator Relationship Specialty Start Date End Date Klever Monte MD [address] [place] [address] PCP - General Family Practice 06/12/22
--- OUTSIDE RECORDS SUMMARY | 2023-10-20 10:24 | XMS_ITS | Continuity of Care Document ---
Author Name [facility] Organization [facility] Care Team Providers [facility] Pricing Consultant Name Role Phone [facility] Unavailable Unavailable Problems Combined list of problems from Department of Defense and Veterans Affairs facilities. It does not include entries that were removed or entered in error. Problem Status Onset Date Problem Type Date of Resolution Comments Source CVD - Cerebrovascular Disease ([facility] [id number]) Active 03/19/20 20 Condition May 01, 2020 Entered By: YOAV CHAUHAN Comment: 03/19/20: L MCA CVA, Admit ANW. Cardio-embol ic d/t Warfarin DC [facility] CAD - Coronary Artery Disease ([facility] [id number]) Active 01/27/20 20 Condition Mar 13, 2020 Entered By: YOAV CHAUHAN Comment: 01/27/20: LAD and Dx stented w/SATHYA at [facility]. Plavix +ASA thru 01/26/21 [facility] Peripheral arterial insufficiency Active 01/21/20 20 Condition Mar 13, 2020 Entered By: YOAV CHAUHAN Comment: 01/21/20: L femoral Art occlusion per [facility]-->Fem -Tibial bypass planned [facility] Allergic rhinitis (SNOMED CT 30919894) Active Condition [facility] Atrial fibrillation (SNOMED CT 42749175) Active Condition Apr 26, 2015 Entered By: YOAV CHAUHAN Comment: Warfarin through Miryam Rodriguez [facility] Co-Managed Care Active Condition Dec 25, 2017 Entered By: YOAV CHAUHAN Comment: Dr Garcia, Michael Mccarr, F: [phone] , [facility] COPD - Chronic Obstructive Pulmonary Disease ([facility] [id number]) Active Condition Dec 25, 2017 Entered By: YOAV CHAUHAN Comment: Mometasone & Albuterol MDI's [facility] [place] of toe Active Condition Sep 08, 2019 Entered By: YOAV CHAUHAN Comment: R middle toe [facility] Current smoker Active Condition Apr 082015 Entered By: YOAV CHAUHAN Comment: Cigars, not cigarettes [facility] Essential hypertension (SNOMED CT 72746891) Active Condition [facility] Glucose intolerance Active Condition [facility] Nocturia due to benign prostatic hypertrophy Active Condition [facility] Health Maintenance (ICD-9-CM V65.9) Inactive Condition 04/26/2015 [facility] Diagnosis: ICD-10-CM Z00.01 Encounter for general adult medical exam w abnormal findings [facility] Diagnosis: ICD-10-CM Z79.01 meterman (current) use of anticoagulants Active Diagnosis [facility] Diagnosis: ICD-10-CM Z76.0 Encounter for issue of repeat prescription Active Diagnosis [facility] Medications Combined list of outpatient medications [...] Jul 17, 2023 2 Jul 17, 2024 [id number] Sep 24, 2023 AFRICA CHAUHAN [facility] RESPIR ATORY (INHAL ATION) ACTIVE 07/17/2024 [id number] AFRICA CHAUHAN 2023 2 [facility] ALBUTEROL 90MCG/ACTUA T (CFC-F) INHL,ORAL,8 .5GM DOSE COUNTER ALBUTERO L 90MCG/AC TUAT (CFC-F) INHL,ORA L,8.5GM DOSE COUNTER Disconti nued INHALE 2 PUFFS BY INHALATI ON FOUR TIMES A DAY NEEDED FOR SHORTNES S OF BREATH FOR SHORTNES S OF BREATH August 07, 2022 2 August 08, 2023 [id number] August 07, 2022 AFRICA CHAUHAN [facility] RESPIR ATORY (INHAL ATION) DISCONT INUED 08/08/2023 [id number] AFRICA CHAUHAN 2022 2 [facility] APIXABAN 5MG TAB APIXABAN 5MG TAB Active TAKE ONE TABLET BY MOUTH EVERY 12 HOURS TO PREVENT BLOOD CLOTS AND STROKE (ELIQUIS ) May 29, 2023 180 May 29, 2024 [id number] C September 04, 2023 ZOFIA GARCIA [facility] ORAL ACTIVE 05/29/2024 [id number] MARIANO GARCIA 2023 180 [facility] APIXABAN 5MG TAB APIXABAN 5MG TAB Disconti nued TAKE ONE TABLET BY MOUTH EVERY 12 HOURS TO PREVENT BLOOD CLOTS AND STROKE (ELIQUIS ) May 08, 2022 180 May 09, 2023 [id number] Mar 20, 2023 ZOFIA GARCIA [facility] ORAL DISCONT INUED 05/09/2023 [id number] MARIANO GARCIA 2022 180 [facility] CHOLECALCIF JONNA 25MCG (1,000UNIT) TAB CHOLECAL CIFEROL 25MCG (1,000UN IT) TAB Non-VA TAKE FIVE TABLETS BY MOUTH QOD Feb 12, 2017 Non-[facility] Document ed by: AFRICA CHAUHAN Document ed at: [facility] ORAL ACTIVE AFRICA CHAUHAN 2016 [facility] FLUOCINONID E 0.1% CREAM,TOP FLUOCINO NIDE 0.1% CREAM,TO P Active APPLY A THIN LAYER TOPICALL Y TWICE A DAY NEEDED FOR RASH FOR RASH Dec 12, 2022 60 Dec 13, 2023 [id number] Dec 13, 2022 AFRICA CHAUHAN [facility] TOPICA L ACTIVE 12/13/2023 [id number] 3 AFRICA CHAUHAN 2022 60 [place] [facility] FLUTICASONE 250MCG/SALM ETEROL 50MCG INHL,ORAL,D ISKUS,60 FLUTICAS ONE 250MCG/S ALMETERO L 50MCG INHL,ORA L,DISKUS ,60 Active INHALE 1 PUFF BY INHALATI ON TWICE A DAY FOR COPD FOR COPD Jul 17, 2023 3 Jul 17, 2024 [id number] Oct 15, 2023 AFRICA CHAUHNA [facility] RESPIR ATORY (INHAL ATION) ACTIVE 07/17/2024 [id number] 4 AFRICA CHAUHAN 2023 3 [place] [facility] FLUTICASONE 250MCG/SALM ETEROL 50MCG INHL,ORAL,D ISKUS,60 FLUTICAS ONE 250MCG/S ALMETERO L 50MCG INHL,ORA L,DISKUS ,60 Disconti nued INHALE 1 PUFF BY INHALATI ON TWICE A DAY FOR COPD THIS REPLACES YOUR MOMETASO NE FOR COPD August 07, 2022 3 August 08, 2023 [id number] Apr 24, 2023 AFRICA CHAUHANO LIS [facility] RESPIR ATORY (INHAL ATION) DISCONT INUED 08/08/2023 [id number] AFRICA CHAUHAN 2022 3 [facility] FUROSEMIDE 20MG TAB FUROSEMI DE 20MG TAB Active TAKE ONE TABLET BY MOUTH THREE TIMES A WEEK FOR HEART FAILURE FOR HEART FAILURE Feb 24, 2023 39 Feb 25, 2024 [id number] Feb 28, 2023 SASHA DONAHUE A [facility] ORAL ACTIVE 02/25/2024 [id number] Hong DONAHUE A 2022 39 [facility] FUROSEMIDE 20MG TAB FUROSEMI DE 20MG TAB Disconti nued TAKE ONE TABLET BY MOUTH EVERY OTHER DAY FOR HEART FAILURE FOR HEART FAILURE August 12, 2022 45 August 13, 2023 [id number] Nov 08, 2022 AFRICA CHAUHANAPO LIS [facility] ORAL DISCONT INUED (EDIT) 08/13/2023 [id number] 3 AFRICA CHAUHAN 2022 45 [place] [facility] FUROSEMIDE 20MG TAB FUROSEMI DE 20MG TAB Disconti nued TAKE ONE TABLET BY MOUTH EVERY MORNING FOR HEART FAILURE FOR HEART FAILURE August 07, 2022 90 August 08, 2023 [id number] August 07, 2022 AFRICA CHAUHAN [facility] ORAL DISCONT INUED 08/08/2023 [id number] AFRICA CHAUHAN 2022 90 [place] [facility] HYDROCHLORO THIAZIDE 12.5MG TAB HYDROCHL OROTHIAZ LAURA 12.5MG TAB Disconti nued TAKE ONE TABLET BY MOUTH EVERY DAY FOR BLOOD PRESSURE FOR BLOOD PRESSURE August 07, 2022 90 August 08, 2023 [id number] August 07, 2022 [facility] ORAL DISCONT INUED 08/08/2023 [id number] AFRICA CHAUHAN 2022 90 [place] [facility] METOPROLOL SUCCINATE 50MG TAB,SA METOPROL OL SUCCINAT E 50MG TAB,SA Disconti nued TAKE THREE TABLETS BY MOUTH EVERY DAY FOR BLOOD PRESSURE FOR BLOOD PRESSURE August 07, 2022 270 August 08, 2023 [id number] Sep 23, 2022 [facility]FRICA [facility]AUHAN [facility] OR[facility] DISCONT INUED 08/08/2023 [id number] AFRICA CHAUHAN 2022 270 [facility] METOPROLOL TARTRATE 100MG TAB METOPROL OL TARTRATE 100MG TAB Active TAKE ONE TABLET BY MOUTH TWICE A DAY FOR BLOOD PRESSURE FOR BLOOD PRESSURE Dec 12, 2022 180 Dec 13, 2023 [id number] Sep 24, 2023 AFRICA CHAUHAN [facility] ORAL ACTIVE 12/13/2023 [id number] AFRICA CHAUHAN 2022 180 [facility] NIFEDIPINE (EQV-CC) 60MG TAB,SA NIFEDIPI NE (EQV-CC) 60MG TAB,SA Disconti nued TAKE ONE TABLET BY MOUTH EVERY DAY FOR BLOOD PRESSURE FOR BLOOD PRESSURE August 07, 2022 90 August 08, 2023 [id number] Feb 20, 2023 AFRICA CHAUHAN [facility] ORAL DISCONT INUED BY PROVIDE R 08/08/2023 [id number] AFRICA CHAUHAN 2022 90 [place] [facility] NIFEDIPINE (EQV-CC) 60MG TAB,SA NIFEDIPI NE (EQV-CC) 60MG TAB,SA Disconti nued TAKE ONE TABLET BY MOUTH EVERY DAY FOR BLOOD PRESSURE FOR BLOOD PRESSURE Jun 13, 2022 90 Sep 11, 2022 [id number] August 19, 2022 AFRICA CHAUHAN [facility] ORAL DISCONT INUED 09/11/2022 [id number] AFRICA CHAUHAN 2022 90 [facility] NIFEDIPINE (EQV-CC) 90MG TAB,SA NIFEDIPI NE (EQV-CC) 90MG TAB,SA Active TAKE ONE TABLET BY MOUTH EVERY DAY FOR BLOOD PRESSURE FOR BLOOD PRESSURE Jul 17, 2023 90 Jul 17, 2024 [id number] Sep 19, 2023 AFRICA CHAUHAN [facility] ORAL ACTIVE 07/17/2024 [id number] AFRICA CHAUHAN 2023 90 [facility] NIFEDIPINE (EQV-CC) 90MG TAB,SA NIFEDIPI NE (EQV-CC) 90MG TAB,SA Disconti nued TAKE ONE TABLET BY MOUTH EVERY DAY FOR BLOOD PRESSURE INCREASE D DOSE PER CO-MANAG ED CARE INCREASE D DOSE PER CO-MANAG ED CARE FOR BLOOD PRESSURE Dec 12, 2022 90 Dec 13, 2023 [id number] Jul 01, 2023 AFRICA CHAUHAN [facility] ORAL DISCONT INUED 12/13/2023 [id number] AFRICA CHAUHAN 2022 90 [facility] POTASSIUM CHLORIDE 10MEQ TAB,SA POTASSIU M CHLORIDE 10MEQ TAB,SA Active TAKE ONE TABLET BY MOUTH THREE TIMES A WEEK FOR POTASSIU M SUPPLEME NT TAKE WITH FUROSEMI DE FOR POTASSIU M SUPPLEME NT Feb 24, 2023 39 Feb 25, 2024 [id number] Feb 28, 2023 [facility] OR[facility]IVE 02/25/2024 [id number] Hong DONAHUE MUNIRAJALYN Parra 2022 39 [facility] POTASSIUM CHLORIDE 10MEQ TAB,SA POTASSIU M CHLORIDE 10MEQ TAB,SA Disconti nued TAKE ONE TABLET BY MOUTH EVERY OTHER DAY FOR POTASSIU M SUPPLEME NT FOR POTASSIU M SUPPLEME NT August 12, 2022 45 August 13, 2023 [id number] Nov 08, 2022 AFRICA CHAUHAN [facility] ORAL DISCONT INUED (EDIT) 08/13/2023 [id number] AFRICA CHAUHAN 2022 45 [facility] POTASSIUM CHLORIDE 10MEQ TAB,SA POTASSIU M CHLORIDE 10MEQ TAB,SA Disconti nued TAKE ONE TABLET BY MOUTH EVERY DAY FOR CONGESTI VE HEART FAILURE FOR POTASSIU M SUPPLEME NT August 07, 2022 90 August 08, 2023 [id number] August 07, 2022 AFRICA CHAUHAN [facility] ORAL DISCONT INUED 08/08/2023 [id number] AFRICA CHAUHAN 2022 90 [facility] POTASSIUM CHLORIDE 10MEQ TAB,SA POTASSIU M CHLORIDE 10MEQ TAB,SA Disconti nued TAKE ONE TABLET BY MOUTH EVERY DAY FOR CONGESTI VE HEART FAILURE Nov 15, 2021 90 Nov 16, 2022 [id number] August 15, 2022 AFRICA CHAUHAN [facility] ORAL DISCONT INUED 11/16/2022 [id number] AFRICA CHAUHAN 2021 90 [facility] ROSUVASTATI N CA 20MG TAB ROSUVAST ATIN CA 20MG TAB Active TAKE ONE TABLET BY MOUTH AT BEDTIME FOR CORONARY ARTERY DISEASE FOR CORONARY ARTERY DISEASE Jul 17, 2023 90 Jul 17, 2024 [id number] Sep 24, 2023 AFRICA CHAUHAN [facility] ORAL ACTIVE 07/17/2024 [id number] AFRICA CHAUHAN 2023 90 [facility] ROSUVASTATI N CA 20MG TAB ROSUVAST ATIN CA 20MG TAB Disconti nued TAKE ONE TABLET BY MOUTH AT BEDTIME FOR CORONARY ARTERY DISEASE FOR CORONARY ARTERY DISEASE August 07, 2022 90 August 08, 2023 [id number] Jun 09, 2023 AFRICA CHAUHAN [facility] ORAL DISCONT INUED 08/08/2023 [id number] AFRICA CHAUHAN 2022 90 [facility] TAMSULOSIN HCL 0.4MG CAP TAMSULOS IN HCL 0.4MG CAP Active TAKE ONE CAPSULE BY MOUTH EVERY EVENING FOR PROSTATE FOR PROSTATE Jul 17, 2023Jul 17, 2024 [id number] Oct 05, 2023 AFRICA CHAUHAN [facility] ORAL ACTIVE 07/17/2024 [id number] 4 AFRICA CHAUHAN 2023 30 [facility] Allergies, Adverse Reactions, Alerts Combined list of allergies from Department of Defense and Veterans Affairs facilities. It does not include entries that were removed or entered in error. Substance Category Reaction Severity Reaction type Status Date Reported Comments Source LISINOPRIL Propensity to adverse reactions to drug (finding) Cough active [address] [facility] Immunizations Combined list of available immunizations from the Department of Defense and Veterans Affairs facilities. Immunization Series Date Given Administered By Site Reaction Lot Number CVX Code Drug Auto Washer Status Comments Source COVID-19 (EnvironmentIQ), MRNA, LNP-S, BIVALENT, PF, 30 MCG/0.3 ML DOSE 2022 300 complet ed [facility] COVID-19 (PFIZER), MRNA, LNP-S, PF, 30 MCG/0.3 ML DOSE, JAMES-SUCROSE (AGES 12+ YEARS) 2021 217 complet ed [facility] COVID-19 ([employer]IQ), MRNA, LNP-S, PF, 30 MCG/0.3 ML DOSE 2020 208 complet ed [facility] ZOSTER RECOMBINANT 2 2020 187 complet ed [facility] INFLUENZA VACCINE, QUADRIVALENT, ADJUVANTED 2020 205 complet ed [facility] INFLUENZA, UNSPECIFIED FORMULATION 2020 88 complet ed [facility] ZOSTER RECOMBINANT 1 2020 187 complet [facility] COVID-19 (PFIZER), MRNA, LNP-S, PF, 30 MCG/0.3 ML DOSE 2 2020 208 complet ed [facility] COVID-19 (PFIZER), MRNA, LNP-S, PF, 30 MCG/0.3 ML DOSE 1 2020 208 complet ed [facility] INFLUENZA VACCINE, QUADRIVALENT, ADJUVANTED 2019 205 complet ed [facility] INFLUENZA, TRIVALENT, ADJUVANTED 2018 168 complet ed [facility] INFLUENZA, SEASONAL, INJECTABLE 2018 141 complet ed [facility] INFLUENZA, SEASONAL, INJECTABLE 2017 141 complet ed [facility] INFLUENZA, TRIVALENT, ADJUVANTED 2017 168 complet ed [facility] INFLUENZA, HIGH DOSE SEASONAL 2016 135 complet ed [facility] PNEUMOCOCCAL POLYSACCHARID E PPV23 2016 33 complet ed [employer] , [id number], 06/03/18 [facility] TD (ADULT), 2 LF TETANUS TOXOID, PRESERVATIVE FREE, ADSORBED 2016 09 complet ed [employer] [id number], 12/19/18 [facility] INFLUENZA, HIGH DOSE SEASONAL 2016 135 complet ed [facility] PNEUMOCOCCAL POLYSACCHARID E PPV23 2016 33 complet ed [facility] INFLUENZA, HIGH DOSE SEASONAL 2015 135 complet ed [facility] PNEUMOCOCCAL CONJUGATE PCV 13 2015 133 complet ed [employer] [facility] PNEUMOCOCCAL CONJUGATE PCV 13 2014 133 complet ed [facility] INFLUENZA, UNSPECIFIED FORMULATION 2013 88 complet ed [facility] INFLUENZA, UNSPECIFIED FORMULATION 2013 88 complet ed [facility] INFLUENZA, UNSPECIFIED FORMULATION 2011 88 complet ed [facility] INFLUENZA, UNSPECIFIED FORMULATION 2010 88 complet ed [facility] PNEUMOCOCCAL, UNSPECIFIED FORMULATION 2009 109 complet ed [employer]ck,093 02, 011 [facility] TDAP 2009 115 complet ed [facility] ZOSTER LIVE 2008 121 complet ed [facility] TDAP 2007 115 complet ed private [facility] ZOSTER LIVE 2006 121 complet ed [facility] Results Combined list of recent chemistry, [...] Jul 17, 2023 04:23 PM Reporting Lab: [facility] [phone] Performing Lab: [facility] [phone] [facility] URINALYS IS SPECIFIC GRAVITY OF URINE 1.006 1.003 - 1.035 07/16 Specimen Type: URINE No comment entered. Ordering Provider: TERRENCE CHAUHAN Report Released Date/Time: Jul 17, 2023 04:23 PM Reporting Lab: [facility] [phone] Performing Lab: [facility] [phone] [facility] IS BILIRUBIN. TOTAL [PRESENCE] IN URINE BY TEST STRIP NEGATIVE 07/16 Specimen Type: URINE No comment entered. Ordering Provider: TERRENCE CHAUHAN Report Released Date/Time: Jul 17, 2023 04:23 PM Reporting Lab: [facility] [phone] Performing Lab: [facility] [address] [facility] URINALYS IS KETONES [MASS/VOLU ME] IN URINE BY TEST STRIP NEGATIVE 07/16 Specimen Type: URINE No comment entered. Ordering Provider: TERRENCE CHAUHAN Report Released Date/Time: Jul 17, 2023 04:23 PM Reporting Lab: [facility] [phone] Performing Lab: [facility] [phone] [place] [facility] URINALYS IS GLUCOSE [MASS/VOLU ME] IN URINE BY TEST STRIP NEGATIVE mg/dL 07/16 Specimen Type: URINE No comment entered. Ordering Provider: TERRENCE CHAUHAN Report Released Date/Time: Jul 17, 2023 04:23 PM Reporting Lab: [facility] [address] Performing Lab: [facility] [phone] [place] [facility] URINALYS IS PROTEIN [MASS/VOLU ME] IN URINE BY TEST STRIP NEGATIVE mg/dL 07/16 Specimen Type: URINE No comment entered. Ordering Provider: TERRENCE CHAUHAN Report Released Date/Time: Jul 17, 2023 04:23 PM Reporting Lab: [facility] [phone] Performing Lab: [facility] [phone] [place] [facility] URINALYS IS PH OF URINE BY TEST STRIP 7.0 5.0 - 8.0 07/16 Specimen Type: URINE No comment entered. Ordering Provider: TERRENCE CHAUHAN Report Released Date/Time: Jul 17, 2023 04:23 PM Reporting Lab: [facility] [phone] Performing Lab: [facility] [phone] [facility] UR[facility] LEUKOCYTES [#/AREA] IN URINE SEDIMENT BY MICROSCOPY HIGH POWER FIELD <1/[HPF] 0 - 7 07/16 Specimen Type: URINE No comment entered. Ordering Provider: TERRENCE CHAUHAN Report Released Date/Time: Jul 17, 2023 04:23 PM Reporting Lab: [facility] [phone] Performing Lab: [facility] [address] [place] [facility] URINALYS IS BACTERIA [PRESENCE] IN URINE SEDIMENT BY LIGHT MICROSCOPY NONE SEEN 07/16 Specimen Type: URINE No comment entered. Ordering Provider: TERRENCE CHAUHAN Report Released Date/Time: Jul 17, 2023 04:23 PM Reporting Lab: [facility] [phone] Performing Lab: [facility] [address] [place] [facility] URINALYS IS ERYTHROCYT ES [#/AREA] IN URINE SEDIMENT BY MICROSCOPY HIGH POWER FIELD <1/[HPF] 0 - 3 07/16 Specimen Type: URINE No comment entered. Ordering Provider: TERRENCE CHAUHAN Report Released Date/Time: Jul 17, 2023 04:23 PM Reporting Lab: [facility] [phone] Performing Lab: [facility] [phone] [place] [facility] URINALYS IS APPEARANCE OF URINE CLEAR 07/16 Specimen Type: URINE No comment entered. Ordering Provider: TERRENCE CHAUHAN Report Released Date/Time: Jul 17, 2023 04:23 PM Reporting Lab: [facility] [phone] Performing Lab: [facility] [phone] [place] [facility] URINALYS IS EPITHELIAL CELLS.SQUA MOUS [#/AREA] IN URINE SEDIMENT BY MICROSCOPY HIGH POWER FIELD NONE SEEN/[HP F] 07/16 Specimen Type: URINE No comment entered. Ordering Provider: TERRENCE CHAUHAN Report Released Date/Time: Jul 17, 2023 04:23 PM Reporting Lab: [facility] [phone] Performing Lab: [facility] [phone] [place] [facility] URINALYS IS HEMOGLOBIN [PRESENCE] IN URINE BY TEST STRIP NEGATIVE 07/16 Specimen Type: URINE No comment entered. Ordering Provider: TERRENCE CHAUHAN Report Released Date/Time: Jul 17, 2023 04:23 PM Reporting Lab: [facility] [address] Performing Lab: [facility] [address] [place] [facility] URINALYS IS NITRITE [PRESENCE] IN URINE BY TEST STRIP NEGATIVE 07/16 Specimen Type: URINE No comment entered. Ordering Provider: TERRENCE CHAUHAN Report Released Date/Time: Jul 17, 2023 04:23 PM Reporting Lab: [facility] [address] Performing Lab: [facility] [address] [place] [facility] URINALYS IS LEUKOCYTE ESTERASE [PRESENCE] IN URINE BY TEST STRIP NEGATIVE 07/16 Specimen Type: URINE No comment entered. Ordering Provider: TERRENCE CHAUHAN Report Released Date/Time: Jul 17, 2023 04:23 PM Reporting Lab: [facility] [phone] Performing Lab: [facility] [address] [place] [facility] HEMOGLOB IN A1C HEMOGLOBIN A1C/HEMOGL OBIN.TOTAL [...] August 07, 2022 02:21 PM Reporting Lab: [facility] [address] Performing Lab: [facility] [address] [place] [facility] BASIC METABOLI C PANEL+MG CREATININE [MASS/VOLU ME] IN SERUM OR PLASMA 1.3 mg/dL 0.7 - 1.2 07/16 H Specimen Type: PLASMA No comment entered. Ordering Provider: TERRENCE CHAUHAN Report Released Date/Time: August 07, 2022 02:21 PM Reporting Lab: [facility] [address] Performing Lab: [facility] [address] [place] [facility] BASIC METABOLI C PANEL+MG UREA NITROGEN [MASS/VOLU ME] IN SERUM OR PLASMA 15 mg/dL 8 - 26 07/16 Specimen Type: PLASMA No comment entered. Ordering Provider: TERRENCE CHAUHAN Report Released Date/Time: August 07, 2022 02:21 PM Reporting Lab: [facility] [address] Performing Lab: [facility] [address] [place] [facility] BASIC METABOLI C PANEL+MG GLUCOSE [MASS/VOLU ME] IN SERUM OR PLASMA 84 mg/dL 70 - 100 07/16 Specimen Type: PLASMA No comment entered. Ordering Provider: TERRENCE CHAUHAN Report Released Date/Time: August 07, 2022 02:21 PM Reporting Lab: [facility] [phone] Performing Lab: [facility] [address] [place] [facility] BASIC METABOLI C PANEL+MG SODIUM [MOLES/VOL UME] IN SERUM OR PLASMA 137 mmol/L 136 - 145 07/16 Specimen Type: PLASMA No comment entered. Ordering Provider: TERRENCE CHAUHAN Report Released Date/Time: August 07, 2022 02:21 PM Reporting Lab: [facility] [address] Performing Lab: [facility] [address] [place] [facility] BASIC METABOLI C PANEL+MG POTASSIUM [MOLES/VOL UME] IN SERUM OR PLASMA 4.6 mmol/L 3.5 - 5.1 07/16 Specimen Type: PLASMA No comment entered. Ordering Provider: TERRENCE CHAUHAN Report Released Date/Time: August 07, 2022 02:21 PM Reporting Lab: [facility] [phone] Performing Lab: [facility] [address] [place] [facility] BASIC METABOLI C PANEL+MG CHLORIDE [MOLES/VOL UME] IN SERUM OR PLASMA 105 mmol/L 98 - 107 07/16 Specimen Type: PLASMA No comment entered. Ordering Provider: TERRENCE CHAUHAN Report Released Date/Time: August 07, 2022 02:21 PM Reporting Lab: [facility] [address] Performing Lab: [facility] [address] [place] [facility] BASIC METABOLI C PANEL+MG CARBON DIOXIDE, TOTAL [MOLES/VOL UME] IN SERUM OR PLASMA 24 mmol/L 22 - 29 07/16 Specimen Type: PLASMA No comment entered. Ordering Provider: TERRENCE CHAUHAN Report Released Date/Time: August 07, 2022 02:21 PM Reporting Lab: [facility] [phone] Performing Lab: [facility] [phone] [place] [facility] PANEL+MG CALCIUM [MASS/VOLU ME] IN SERUM OR PLASMA 8.9 mg/dL 8.4 - 10.2 07/16 Specimen Type: PLASMA No comment entered. Ordering Provider: TERRENCE CHAUHAN Report Released Date/Time: August 07, 2022 02:21 PM Reporting Lab: [facility] [phone] Performing Lab: [facility] [phone] [place] [facility] PANEL+MG MAGNESIUM [MASS/VOLU ME] IN SERUM OR PLASMA 2.1 mg/dL 1.6 - 2.6 07/16 Specimen Type: PLASMA No comment entered. Ordering Provider: TERRENCE CHAUHAN Report Released Date/Time: August 07, 2022 02:21 PM Reporting Lab: [facility] [phone] Performing Lab: [facility] [phone] [place] [facility] PANEL+MG ANION GAP IN SERUM OR PLASMA 8 mmol/L 5 - 15 07/16 Specimen Type: PLASMA No comment entered. Ordering Provider: TERRENCE CHAUHAN Report Released Date/Time: August 07, 2022 02:21 PM Reporting Lab: [facility] [phone] Performing Lab: [facility] [phone] [place] [facility] PANEL+MG GLOMERULAR FILTRATION RATE/1.73 SQ M.PREDICTE D [VOLUME RATE/AREA] IN SERUM, PLASMA OR BLOOD BY CREATININE -BASED FORMULA (CKD-EPI 2020) 56 60 07/16 L Specimen Type: PLASMA No comment entered. Ordering Provider: TERRENCE CHAUHAN Report Released Date/Time: August 07, 2022 02:21 PM Reporting Lab: [facility] [phone] Performing Lab: [facility] [phone] [place] [facility] LIVER FUNCTION TESTS BILIRUBIN. TOTAL [MASS/VOLU ME] IN SERUM OR PLASMA 0.8 mg/dL 0.2 - 1.2 07/16 Specimen Type: PLASMA No comment entered. Ordering Provider: TERRENCE CHAUHAN Report Released Date/Time: August 07, 2022 02:21 PM Reporting Lab: [facility] [address] Performing Lab: [facility] [address] [place] [facility] LIVER FUNCTION TESTS ALKALINE PHOSPHATAS E [ENZYMATIC ACTIVITY/V OLUME] IN SERUM OR PLASMA 52 U/L 40 - 150 07/16 Specimen Type: PLASMA No comment entered. Ordering Provider: TERRENCE CHAUHAN Report Released Date/Time: August 07, 2022 02:21 PM Reporting Lab: [facility] [address] Performing Lab: [facility] [address] [place] [facility] LIVER FUNCTION TESTS ALANINE AMINOTRANS FERASE [ENZYMATIC ACTIVITY/V OLUME] IN SERUM OR PLASMA 20 U/L <55 - 55 07/16 Specimen Type: PLASMA No comment entered. Ordering Provider: TERRENCE CHAUHAN Report Released Date/Time: August 07, 2022 02:21 PM Reporting Lab: [facility] [address] Performing Lab: [facility] [address] [place] [facility] LIVER FUNCTION TESTS ASPARTATE AMINOTRANS FERASE [ENZYMATIC ACTIVITY/V OLUME] IN SERUM OR PLASMA 19 U/L <34 - 34 07/16 Specimen Type: PLASMA No comment entered. Ordering Provider: TERRENCE CHAUHAN Report Released Date/Time: August 07, 2022 02:21 PM Reporting Lab: [facility] [address] Performing Lab: [facility] [address] [place] [facility] LIVER FUNCTION TESTS GAMMA GLUTAMYL TRANSFERAS E [ENZYMATIC ACTIVITY/V OLUME] IN SERUM OR PLASMA 38 U/L <64 - 64 07/16 Specimen Type: PLASMA No comment entered. Ordering Provider: TERRENCE CHAUHAN Report Released Date/Time: August 07, 2022 02:21 PM Reporting Lab: [facility] [address] Performing Lab: [facility] [address] [place] [facility] CBC LEUKOCYTES [#/VOLUME] IN BLOOD BY AUTOMATED COUNT 8.72 10*3/uL 4.0 - 11.0 07/16 Specimen Type: BLOOD No comment entered. Ordering Provider: TERRENCE CHAUHAN Report Released Date/Time: August 07, 2022 02:21 PM Reporting Lab: [facility] [address] Performing Lab: [facility] [address] [place] [facility] CBC ERYTHROCYT ES [#/VOLUME] IN BLOOD BY AUTOMATED COUNT 4.11 10*6/uL 4.6 - 6.2 07/16 L Specimen Type: BLOOD No comment entered. Ordering Provider: TERRENCE CHAUHAN Report Released Date/Time: August 07, 2022 02:21 PM Reporting Lab: [facility] [address] Performing Lab: [facility] [address] [place] [facility] CBC HEMOGLOBIN [MASS/VOLU ME] IN BLOOD 13.4 g/dL 13.5 - 17.9 07/16 L Specimen Type: BLOOD No comment entered. Ordering Provider: TERRENCE CHAUHAN Report Released Date/Time: August 07, 2022 02:21 PM Reporting Lab: [facility] [address] Performing Lab: [facility] [address] [place] [facility] CBC HEMATOCRIT [VOLUME FRACTION] OF BLOOD BY AUTOMATED COUNT 39.7 41 - 54 07/16 L Specimen Type: BLOOD No comment entered. Ordering Provider: TERRENCE CHAUHAN Report Released Date/Time: August 07, 2022 02:21 PM Reporting Lab: [facility] [address] Performing Lab: [facility] [address] [place] [facility] CBC MCV [ENTITIC VOLUME] BY AUTOMATED COUNT 96.6 fL 80 - 100 07/16 Specimen Type: BLOOD No comment entered. Ordering Provider: TERRENCE CHAUHAN Report Released Date/Time: August 07, 2022 02:21 PM Reporting Lab: [facility] [address] Performing Lab: [facility] [address] [place] [facility] CBC MCH [ENTITIC MASS] BY AUTOMATED COUNT 32.6 pg 27 - 33 07/16 Specimen Type: BLOOD No comment entered. Ordering Provider: TERRENCE CHAUHAN Report Released Date/Time: August 07, 2022 02:21 PM Reporting Lab: [facility] [address] Performing Lab: [facility] [address] [place] [facility] CBC MCHC [MASS/VOLU ME] BY AUTOMATED COUNT 33.8 g/dL 32.0 - 37.5 07/16 Specimen Type: BLOOD No comment entered. Ordering Provider: TERRENCE CHAUHAN Report Released Date/Time: August 07, 2022 02:21 PM Reporting Lab: [facility] [address] Performing Lab: [facility] [address] [place] [facility] CBC PLATELETS [#/VOLUME] IN BLOOD BY AUTOMATED COUNT 159 10*3/uL 150 - 400 07/16 Specimen Type: BLOOD No comment entered. Ordering Provider: TERRENCE CHAUHAN Report Released Date/Time: August 07, 2022 02:21 PM Reporting Lab: [facility] [address] Performing Lab: [facility] [address] [place] [facility] CBC PLATELET MEAN VOLUME [ENTITIC VOLUME] IN BLOOD BY AUTOMATED COUNT 9.6 fL 7.4 - 10.4 07/16 Specimen Type: BLOOD No comment entered. Ordering Provider: TERRENCE CHAUHAN Report Released Date/Time: August 07, 2022 02:21 PM Reporting Lab: [facility] [address] Performing Lab: [facility] [address] [place] [facility] CBC ERYTHROCYT E DISTRIBUTI ON WIDTH [RATIO] BY AUTOMATED COUNT 14.1 11.5 - 14.5 07/16 Specimen Type: BLOOD No comment entered. Ordering Provider: TERRENCE CHAUHAN Report Released Date/Time: August 07, 2022 02:21 PM Reporting Lab: [address] Performing Lab: [place] [address] [place] [facility] PSA PROSTATE SPECIFIC AG [MASS/VOLU ME] IN SERUM OR PLASMA 3.84 ng/mL <4.00 - 4.00 07/16 Specimen Type: SERUM No comment entered. Ordering Provider: TERRENCE CHAUHAN Report Released Date/Time: August 07, 2022 02:21 PM Reporting Lab: [place] [address] Performing Lab: [place] [address] [place] [facility] CREATINI NE(INCLU SATHYA EGFR) CREATININE [MASS/VOLU ME] IN SERUM OR PLASMA 1.2 mg/dL 0.7 - 1.2 04/16 Specimen Type: PLASMA No comment entered. Ordering Provider: HUYEN HYLTON Report Released Date/Time: Mar 07, 2023 02:00 PM Reporting Lab: [place] [address] Performing Lab: [place] [address] [place] [facility] CREATINI NE(INCLU SATHYA EGFR) GLOMERULAR FILTRATION RATE/1.73 SQ M.PREDICTE D [VOLUME RATE/AREA] IN SERUM, PLASMA OR BLOOD BY CREATININE -BASED FORMULA (CKD-EPI 2020) 62 60 04/16 Specimen Type: PLASMA No comment entered. Ordering Provider: HUYEN HYLTON Report Released Date/Time: Mar 07, 2023 02:00 PM Reporting Lab: [address] Performing Lab: [address] [facility] CBC LEUKOCYTES [#/VOLUME] IN BLOOD BY AUTOMATED COUNT 8.06 10*3/uL 4.0 - 11.0 04/16 Specimen Type: BLOOD No comment entered. Ordering Provider: HUYEN HYLTON Report Released Date/Time: Mar 07, 2023 02:00 PM Reporting Lab: [place] [address] Performing Lab: [place] [address] [place] [facility] CBC ERYTHROCYT ES [#/VOLUME] IN BLOOD BY AUTOMATED COUNT 4.03 10*6/uL 4.6 - 6.2 04/16 L Specimen Type: BLOOD No comment entered. Ordering Provider: HUYEN HYLTON Report Released Date/Time: Mar 07, 2023 02:00 PM Reporting Lab: [place] [address] Performing Lab: [place] [address] [place] [facility] CBC HEMOGLOBIN [MASS/VOLU ME] IN BLOOD 13.1 g/dL 13.5 - 17.9 04/16 L Specimen Type: BLOOD No comment entered. Ordering Provider: HUYEN HYLTON Report Released Date/Time: Mar 07, 2023 02:00 PM Reporting Lab: [place] [address] Performing Lab: [place] [address] [place] [facility] CBC HEMATOCRIT [VOLUME FRACTION] OF BLOOD BY AUTOMATED COUNT 38.9 41 - 54 04/16 L Specimen Type: BLOOD No comment entered. Ordering Provider: HUYEN HYLTON Report Released Date/Time: Mar 07, 2023 02:00 PM Reporting Lab: [place] [address] Performing Lab: [place] [address] [facility] CBC MCV [ENTITIC VOLUME] BY AUTOMATED COUNT 96.5 fL 80 - 100 04/16 Specimen Type: BLOOD No comment entered. Ordering Provider: HUYEN HYLTON Report Released Date/Time: Mar 07, 2023 02:00 PM Reporting Lab: [place] [address] Performing Lab: [place] [address] [place] [facility] CBC MCH [ENTITIC MASS] BY AUTOMATED COUNT 32.5 pg 27 - 33 04/16 Specimen Type: BLOOD No comment entered. Ordering Provider: HUYEN HYLTON Report Released Date/Time: Mar 07, 2023 02:00 PM Reporting Lab: [facility] [address] Performing Lab: [facility] [address] [place] [facility] CBC MCHC [MASS/VOLU ME] BY AUTOMATED COUNT 33.7 g/dL 32.0 - 37.5 04/16 Specimen Type: BLOOD No comment entered. Ordering Provider: HUYEN HYLTON Report Released Date/Time: Mar 07, 2023 02:00 PM Reporting Lab: [facility] [address] Performing Lab: [facility] [address] [place] [facility] CBC PLATELETS [#/VOLUME] IN BLOOD BY AUTOMATED COUNT 157 10*3/uL 150 - 400 04/16 Specimen Type: BLOOD No comment entered. Ordering Provider: HUYEN HYLTON Report Released Date/Time: Mar 07, 2023 02:00 PM Reporting Lab: [facility] [address] Performing Lab: [facility] [address] [facility] CBC PLATELET MEAN VOLUME [ENTITIC VOLUME] IN BLOOD BY AUTOMATED COUNT 9.7 fL 7.4 - 10.4 04/16 Specimen Type: BLOOD No comment entered. Ordering Provider: HUYEN HYLTON Report Released Date/Time: Mar 07, 2023 02:00 PM Reporting Lab: [facility] [address] Performing Lab: [facility] [address] [facility] CBC ERYTHROCYT E DISTRIBUTI ON WIDTH [RATIO] BY AUTOMATED COUNT 14.5 11.5 - 14.5 04/16 Specimen Type: BLOOD No comment entered. Ordering Provider: HUYEN HYLTON Report Released Date/Time: Mar 07, 2023 02:00 PM Reporting Lab: [facility] [address] Performing Lab: [facility] [address] [place] [facility] AST/SGOT ASPARTATE AMINOTRANS FERASE [ENZYMATIC ACTIVITY/V OLUME] IN SERUM OR PLASMA 22 U/L <34 - 34 04/16 Specimen Type: PLASMA No comment entered. Ordering Provider: HUYEN HYLTON Report Released Date/Time: Mar 07, 2023 02:00 PM Reporting Lab: [facility] [address] Performing Lab: [facility] [address] [place] [facility] ALT/SGPT ALANINE AMINOTRANS FERASE [ENZYMATIC ACTIVITY/V OLUME] IN SERUM OR PLASMA 19 U/L <55 - 55 04/16 Specimen Type: PLASMA No comment entered. Ordering Provider: HUYEN HYLTON Report Released Date/Time: Mar 07, 2023 02:00 PM Reporting Lab: [facility] [address] Performing Lab: [facility] [address] [place] [facility] Vital Signs Combined list of inpatient [...] DC Date Status Disposition Source [place] [facility] Outpatient Encounter [id number] 04/24 [facility] EMERGENCY DEPT VISIT SF MDM [id number] Diagnos is: ICD-10- CM Z76.0 Encount er for issue of repeat prescri ption<b r/> AICHA GALLEGOS 05/09 [facility] H[facility]ITA L [facility] Outpatient Encounter [id number] 05/09 [facility] [place] [facility] Outpatient Encounter [id number] 06/12 [place] [facility] [place] [facility] Outpatient Encounter [id number] 07/15 [place] [facility] [place] [facility] OFFICE O/P EST MOD 30-39 MIN [id number] Diagnos is: ICD-10- CM Z00.01 Encount er for general adult medical exam w abnorma l finding s
RILEYDANETTE LY E 08/07 [place] [facility] [place] [facility] Outpatient Encounter [id number] 08/07 [place] [facility] [place] [facility] Outpatient Encounter [id number] OLESYA ROGERS HIA M 08/12 [place] [facility] [place] [facility] Outpatient Encounter [id number] OLESYA ROGERS HIA M 08/12 [place] [facility] [place] [facility] Outpatient Encounter [id number] Ana CHAUHAN 09/12 [place] [facility] [place] [facility] Outpatient Encounter [id number] 11/06 [place] [facility] [place] [facility] Outpatient Encounter [id number] 12/08 [place] [facility] [place] [facility] Outpatient Encounter [id number] 12/12 [place] [facility] [place] [facility] Outpatient Encounter [id number] 01/17 [place] [facility] [place] [facility] Outpatient Encounter [id number] 02/19 [place] [facility] [place] [facility] Outpatient Encounter [id number] 02/24 [place] [facility] [place] [facility] Outpatient Encounter [id number] 03/07 [facility] [place] [facility] QNHP OL DIG ASSMT&MGMT 5-10 [id number] Diagnos is: ICD-10- CM Z79.01 senior living (curren t) use of anticoa gulants
ELLEN GARCIA 05/29 [facility] OFFICE O/P EST MOD 30 MIN [id number] Diagnos is: ICD-10- CM Z00.01 Encount er for general adult medical exam w abnorma l finding s
Ana CHAUHAN B[place]ON [place] 07/16 [facility] [place] [facility] Outpatient Encounter [id number] 07/17 [facility] Social History Combined list of available smoking, tobacco, and other social history from [employer] and [facility] Affairs facilities. Social History Type Response Date Comment [facility] e Tobacco smoking status MIIS OR-TOBACCO FORMER USER 07/17/2023 [facility] of [facility]2023 [facility] History of tobacco use OR-TOBACCO FORMER USER 08/07/2022 [facility] History of tobacco use OR-TOBACCO FORMER USER 10/16/2020 [facility] History of tobacco use OR-TOBACCO USE CO UNSEL NO 03/29/2019 [facility] History of tobacco use OR-TOBACCO USE WI 30 MIN OF WAKEUP 02/17/2018 [facility] History of tobacco use CURRENT TOBACCO USER 02/12/2017 [facility] History of tobacco use CURRENT TOBACCO USER 04/25/2015 [facility] History of tobacco use CURRENT TOBACCO USER 04/21/2014 [facility] History of tobacco use CURRENT TOBACCO USER 04/20/2013 [facility] History of tobacco use CURRENT TOBACCO USER 03/20/2012 [facility] History of tobacco use CURRENT TOBACCO USER 02/06/2011 [facility] History of tobacco use CURRENT TOBACCO USER 01/02/2010 [facility]
--- OUTSIDE RECORDS SUMMARY | 2023-10-20 10:25 | XMS_ITS | Data Portability ---
Author Organization [place] [facility], [employer] Address [address] [address] Assessment Encounter Date Assessment Date Assessment LastModified [...] user Active 2015 Tobacco user; Original Code: 550175425 Origi nal Codesystem: SNOMED CT Classificati on: Medical Confirm ation Status: Probable Not Available [facility] 09:[facility]17 Onychomycosis of toenails Active 2015 Onychomycosis of toenails; Original Code: 0490211076 Orig inal Codesystem: SNOMED CT Classificati on: Medical Confirm ation Status: Confirmed Not Available [facility] 3 09:10:17 Heart disease Active 2021 Heart disease; Original Code: 69375205 Origin al Codesystem: SNOMED CT Classificati on: Medical Confirm ation Status: Confirmed Not Available [facility] 3 09:10:17 Corns and callus Active 2015 Corns and callus; Original Code: 143625375 Origi nal Codesystem: SNOMED CT Classificati on: Medical Confirm ation Status: Confirmed Not Available [facility] 3 09:10:17 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; Original Code: 2579964889 Orig inal Codesystem: SNOMED CT Classificati on: Medical Confirm ation Status: Confirmed Not Available [facility] 3 09:10:17 Foot pain Active 2015 Foot pain; Original Code: 236836039 Origi nal Codesystem: SNOMED CT Classificati on: Medical Confirm ation Status: Confirmed Not Available [facility] 3 09:10:17 Acquired hallux valgus Active 2015 Acquired hallux valgus; Original Code: 654371887 Origi nal Codesystem: SNOMED CT Classificati on: Medical Confirm ation Status: Confirmed Not Available [facility] 3 09:10:17 Acquired hallux malleus Active 2015 Acquired hallux malleus; Original Code: 65642688 Origin al Codesystem: SNOMED CT Classificati on: Medical Confirm ation Status: Confirmed Not Available [facility] 3 09:10:17 Atrial fibrillation Active 2015 Atrial fibrillation; Original Code: 05427644 Origin al Codesystem: SNOMED CT Classificati on: Medical Confirm ation Status: Confirmed Not Available [facility] 3 09:10:17 Hypertensive disorder Active 2015 Hypertensive disorder; Original Code: 2989203176 Orig inal Codesystem: SNOMED CT Classificati on: Medical Confirm ation Status: Confirmed Not Available [facility] 3 09:10:17 Notes:H/O: anticoagulant the rapy Original Code: 828264776 Original Codesystem: SNOMED CT Classification: Medical Confirmation Status: Confirmed Problem Notes None recorded. Procedures Surgical History Date Name Laterality Status Provider Name and Address Organization Details Recorded Time 10/24/[address] Hong Andres DPM [address] [place] [address], [phone], [facility] 10/23/2022 11:44:57 07/25/[address] Pitts completed Too Andres DPM [address] [place] [address], [phone], [facility] 07/24/2022 10:35:10 04/24/[address] Hong Andres DPM [address] [place] [address], [phone], [facility] 04/24/2022 [...] Updated DateTime 04/24/2022 190.5 cm 25 kg/m2 10393.47 g Mamta Cobrett [facility] 04/24/2022 10:32:58 Social History None recorded. Functional Status None recorded. Mental Status None recorded. Family History Nothing Reported. Medical History No medical history recorded. Past Encounters Encounter ID Performer Location Encounter Start Date Encounter Closed Date Diagnosis/Indication Diagnosis SNOMED-CT Code [id number] Too Andres DPM [place] [address] [place] [phone] 04/24/2022 10:31:04 04/24/2022 13:46:36 Onychomycosis 516621849 Peripheral vascular disease [id number] Too Andres DPM [facility] [address] [place] [address] 07/24/2022 10:14:25 07/25/2022 09:45:42 Onychomycosis 038438544 Peripheral vascular disease 057879154 7314 Too Andres DPM [place] [facility] [address] [place] [address] 10/23/2022 10:13:43 10/24/2022 09:44:58 Onychomycosis 655515869 Peripheral vascular disease 599534444 Health Concerns Section Related Observation LastModified by Organization Detai ls LastModified Time None Recorded Concern Status LastModified by Organization Details LastModified Time None Recorded Advance Directives Directive None Recorded Payers Encounter Date Sequence Insurance Name Policy Number Policy Kevin Covered Member ID Kevin Member ID Guarantor Name 04/24/2022 1 [employer] [id number] Bola Zurita [id number] Bola Zurita 07/24/2022 1 [place] [id number] Bola Zurita [id number] Bola Zurita 10/23/2022 1 [place] [id number] Bola J Parminder [id number] Bola Zurita Notes Date Note Type Note Provider Name and Address Organization Details Recorded Time 04/24/2022 text/html HPI Notes: Pawel salmeron is a 77 year old male established patient who presents with the chief complaint. Presents today for evaluation of problematic toenails and feet in general. They relate chronic thickening and deformity to their toenails that has not responded to self-trimming, topical aymk-qlw-mvvjjva anti-fungal therapy, foot soaks, and other similar conservative treatments. Nails are painful with catching on shoegear and socks. Denies any recent foot injury or infection. Claudication symptoms: No Burning symptoms: No Paresthesia: Subjective numbness to the left lower extremity consistent with his previous surgical procedures [facility] Patient presents for further evaluation and treatment options. Too Andres DPM [address] [place], [address], [facility] 04/24/2022 11:14:44 07/24/2022 text/html HPI Notes: Pawel salmeron is a 77 year old male established patient who presents with the chief complaint. Presents today for evaluation of problematic toenails and feet in general. They relate chronic thickening and deformity to their toenails that has not responded to self-trimming, topical tsre-dtt-mhgewdg anti-fungal therapy, foot soaks, and other similar conservative treatments. Nails are painful with catching on shoegear and socks. Denies any recent foot injury or infection. Claudication symptoms: No Burning symptoms: No Paresthesia: Subjective numbness to the left lower extremity consistent with his previous surgical procedures performed through [facility] in [facility] Patient presents for further evaluation and treatment options. Too Andres DPM [address] [place], [address], [facility] 07/24/2022 10:35:54 10/23/2022 text/html HPI Notes: Pawel salmeron is a 77 year old male established patient who presents with the chief complaint. Presents today for evaluation of problematic toenails and feet in general. They relate chronic thickening and deformity to their toenails that has not responded to self-trimming, topical feob-lqg-fvscpva anti-fungal therapy, foot soaks, and other similar conservative treatments. Nails are painful with catching on shoegear and socks. Denies any recent foot injury or infection. Claudication symptoms: No Burning symptoms: No Paresthesia: Subjective numbness to the left lower extremity consistent with his previous surgical procedures performed through [facility] in [facility] Patient presents for further evaluation and treatment options. Too Andres DPM [address] [place], [address], [facility] 10/23/2022 11:45:19
== END 2023-10-20 10:23 | disposition home or self-care (01) ==
LOC: WOUND 10:22
PROVIDERS: PCP Family Medicine; Visit Provider Physician Assistant Surgical
DX: L72.0 Epidermal cyst (principal)
CPT/HCPCS: 97597

== ENCOUNTER 2023-10-27 10:23 | Outpatient (CLI) | payer MEDICARE, BC, SELFPAY ==
--- OUTSIDE RECORDS SUMMARY | 2023-10-27 10:27 | XMS_ITS | Clinical Summary ---
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 LLE angiogram 2. 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 [address] [place] [address] Jena Pascual PA Follow Up (Boil) 08/04/2023 Travel 08/01/2023 8:35 AM CDT Office Visit [facility] [address] [place] [address] Jena Pascual PA Derm Problem 08/01/2023 Travel [...] T Respiratory Rate 18 03/17/2023 3:35 PM [employer] Oxygen Saturation 96% 08/04/2023 8:35 AM CDT Inhaled Oxygen Concentration - - Weight 90.7 kg (200 lb) 08/04/2023 8:35 AM CDT Height 190.5 cm (6' 3) 03/17/2023 2:07 PM [employer] Body Mass Index 25 03/17/2023 2:07 PM [employer] Plan of Treatment Health Maintenance Due Date [...] back ANTI HCV Routine 05/16/2021 3:20 PM [employer] Need for hepatitis C screening test CT [...] [facility] [address] [place] [address], * PATH TISSUE EXAM (08/05/2023 2:01 PM CDT) Case Report Pathology Report ?Case: [id number] ? Authorizing Provider: ??Unknown, Doctor ?Collected: ? 08/05/2023 1401 ? Ordering Location: ? [facility] ?Received: ?08/06/2023 1013 ? Pathologist: ? Jose Rinaldi MD ? Specimen: ?Back ? 08/07/2023 4:[address] [facility] Final Diagnosis A) SKIN, [...] [facility] Additional Information Interpreted at [facility] - [address], [place] [address] 08/07/2023 4:47 PM CDT [facility] Other (Back) 08/05/2023 2:01 PM CDT 08/06/2023 10:13 AM CDT Doctor Unknown PATHOLOGY/CYTOLOGY [facility] [address] [place] [address], * AEROBIC BACTERIAL CULTURE, STAIN (08/01/2023 9:30 AM CDT) CULTURE No Growth. 08/03/2023 3:00 PM CDT [facility] GRAM STAIN 4+ RBCs 08/03/2023 3:00 PM CDT [facility] GRAM STAIN 1+ PMNs 08/03/2023 3:00 PM CDT [facility] GRAM STAIN No Epithelial cells 08/03/2023 3:00 PM CDT [facility] GRAM STAIN 4+ Gram Positive Cocci 08/03/2023 3:00 PM CDT [facility] GRAM STAIN 3+ Gram Negative Bacilli 08/03/2023 3:00 PM CDT [facility] Other (Other) Non-Blood / Unknown 08/01/2023 9:30 AM CDT 08/01/2023 9:31 AM CDT Jena RICHARDSON MICROBIOLOGY [facility] [address] [place] [address], * ANTI HCV (05/16/2021 3:20 PM [employer]) HEPATITIS C ANTIBODY Non-React edelmira Non-React edelmira 05/17/2021 1:21 AM [employer] [facility] Comment:Antibodies to HCV no t detected; does not exclude the possibility of exposure to HCV. Blood BLOOD SPECIMEN / Unknown Venipuncture / Unknown 05/16/2021 3:20 PM [employer] 05/16/2021 3:25 PM [employer] Zak Garcia MD SEND OUTS Performing Organization Address City/[facility]/ZIP Co de Phone Number [facility] [address] [place] [address], * CT CHEST WO CONTRAST (08/29/2010 4:53 [...] Comments Code Status Discussion: Discussed Care Teams Material Control Manager Relationship Specialty Start Date End Date Klever Monte MD [address] [place] [address] PCP - General Family Practice 06/12/22
--- OUTSIDE RECORDS SUMMARY | 2023-10-27 10:27 | XMS_ITS | Continuity of Care Document ---
Author Name [facility] Organization [facility] Care Team Providers Care Entry Level Software Developer Name Role Phone [facility] Unavailable Unavailable Problems Combined list of problems from Department of Defense and Veterans Affairs facilities. It does not include entries that were removed or entered in error. Problem Status Onset Date Problem Type Date of Resolution Comments Source CVD - Cerebrovascular Disease ([facility] 04702631) Active 03/19/20 20 Condition May 01, 2020 Entered By: YOAV CHAUHAN Comment: 03/19/20: L MCA CVA, Admit ANW. Cardio-embol ic d/t Warfarin DC [facility] CAD - Coronary Artery Disease ([facility] 86299389) Active 01/27/20 20 Condition Mar 13, 2020 Entered By: YOAV CHAUHAN Comment: 01/27/20: LAD and Dx stented w/SATHYA at [facility]. Plavix +ASA thru 01/26/21 [facility] Peripheral arterial insufficiency Active 01/21/20 20 Condition Mar 13, 2020 Entered By: YOAV CHAUHAN Comment: 01/21/20: L femoral Art occlusion per [facility]-->Fem -Tibial bypass planned [facility] Allergic rhinitis (SNOMED CT 78354082) Active Condition [facility] Atrial fibrillation (SNOMED CT 65761142) Active Condition Apr 26, 2015 Entered By: YOAV CHAUHAN Comment: Warfarin through [facility]iry[facility] Rodriguez [facility] Co-Managed Care Active Condition Dec 25, 2017 Entered By: YOAV CHAUHAN Comment: Dr Garcia, Michael Elmo, F: [phone] , [facility] COPD - Chronic Obstructive Pulmonary Disease ([facility] 52204195) Active Condition Dec 25, 2017 Entered By: YOAV CHAUHAN Comment: Mometasone & Albuterol MDI's [facility] Bradley of toe Active Condition Sep 08, 2019 Entered By: YOAV CHAUHAN Comment: R middle toe [facility] Current smoker Active Condition Apr 082015 Entered By: YOAV CHAUHAN Comment: Cigars, not cigarettes [facility] Essential hypertension (SNOMED CT 52359958) Active Condition [facility] Glucose intolerance Active Condition [facility] Nocturia due to benign prostatic hypertrophy Active Condition [facility] Health Maintenance (ICD-9-CM V65.9) Inactive Condition 04/26/2015 [facility] Diagnosis: ICD-10-CM Z00.01 Encounter for general adult medical exam w abnormal findings [facility] Diagnosis: ICD-10-CM Z79.01 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 Active Diagnosis [facility] Diagnosis: ICD-10-CM Z76.0 Encounter for issue [...] Jul 17, 2023 2 Jul 17, 2024 [id number] Sep 24, 2023 AFRICA CHAUHAN [facility] RESPIR ATORY (INHAL ATION) ACTIVE 07/17/2024 [id number] AFRICA CHAUHAN 2023 2 [facility] ALBUTEROL 90MCG/ACTUA T (CFC-F) INHL,ORAL,8 .5GM DOSE COUNTER ALBUTERO L 90MCG/AC TUAT (CFC-F) INHL,ORA L,8.5GM DOSE COUNTER Disconti nued INHALE 2 PUFFS BY INHALATI ON FOUR TIMES A DAY NEEDED FOR SHORTNES S OF BREATH FOR SHORTNES S OF BREATH August 07, 2022 2 August 08, 2023 [id number] August 07, 2022 AFRICA CHAUHAN [facility] RESPIR ATORY (INHAL ATION) DISCONT INUED 08/08/2023 [id number] AFRICA CHAUHAN 2022 2 [facility] APIXABAN 5MG TAB APIXABAN 5MG TAB Active TAKE ONE TABLET BY MOUTH EVERY 12 HOURS TO PREVENT BLOOD CLOTS AND STROKE (ELIQUIS ) May 29, 2023 180 May 29, 2024 [id number] C September 04, 2023 ZOFIA GARCIA [facility] ORAL ACTIVE 05/29/2024 [id number] MARIANO GARCIA 2023 180 [facility] APIXABAN 5MG TAB APIXABAN 5MG TAB Disconti nued TAKE ONE TABLET BY MOUTH EVERY 12 HOURS TO PREVENT BLOOD CLOTS AND STROKE (ELIQUIS ) May 08, 2022 180 May 09, 2023 [id number] B Mar 20, 2023 ZOFIA GARCIA [facility] ORAL DISCONT INUED 05/09/2023 [id number] MARIANO GARCIA 2022 180 [facility] CHOLECALCIF JONNA 25MCG (1,000UNIT) TAB CHOLECAL CIFEROL 25MCG (1,000UN IT) TAB Non-VA TAKE FIVE TABLETS BY MOUTH QOD Feb 12, 2017 [facility] Document ed by: AFRICA CHAUHAN Document ed at: [facility] ORAL ACTIVE AFRICA CHAUHAN 2016 [facility] FLUOCINONID E 0.1% CREAM,TOP FLUOCINO NIDE 0.1% CREAM,TO P Active APPLY A THIN LAYER TOPICALL Y TWICE A DAY NEEDED FOR RASH FOR RASH Dec 12, 2022 60 Dec 13, 2023 [id number] Dec 13, 2022 AFRICA CHAUHAN [facility] TOPICA L ACTIVE 12/13/2023 [id number] 3 AFRICA CHAUHAN 2022 60 [facility] FLUTICASONE 250MCG/SALM ETEROL 50MCG INHL,ORAL,D ISKUS,60 FLUTICAS ONE 250MCG/S ALMETERO L 50MCG INHL,ORA L,DISKUS ,60 Active INHALE 1 PUFF BY INHALATI ON TWICE A DAY FOR COPD FOR COPD Jul 17, 2023 3 Jul 17, 2024 [id number] Oct 15, 2023 A[facility]ICA CHAUHAN [facility] RESPIR AT[facility] (INHAL ATION) ACTIVE 07/17/2024 [id number] AFRICA CHAUHAN 2023 3 [facility] [facility] FLUTICASONE 250MCG/SALM ETEROL 50MCG INHL,ORAL,D ISKUS,60 FLUTICAS ONE 250MCG/S ALMETERO L 50MCG INHL,ORA L,DISKUS ,60 Disconti nued INHALE 1 PUFF BY INHALATI ON TWICE A DAY FOR COPD THIS REPLACES YOUR MOMETASO NE FOR COPD August 07, 2022 3 August 08, 2023 [id number] Apr 24, 2023 A[facility]ICA CHAUHAN[facility] RESPIR ATORY (INHAL ATION) DISCONT INUED 08/08/2023 [id number] AFRICA CHAUHAN 2022 3 [facility] FUROSEMIDE 20MG TAB FUROSEMI DE 20MG TAB Active TAKE ONE TABLET BY MOUTH THREE TIMES A WEEK FOR HEART FAILURE FOR HEART FAILURE Feb 24, 2023 39 Feb 25, 2024 [id number] Feb 28, 2023 SASHA DONAHUE [facility] ORAL ACTIVE 02/25/2024 [id number] Hong DONAHUE A 2022 39 [facility] FUROSEMIDE 20MG TAB FUROSEMI DE 20MG TAB Disconti nued TAKE ONE TABLET BY MOUTH EVERY OTHER DAY FOR HEART FAILURE FOR HEART FAILURE August 12, 2022 45 August 13, 2023 [id number] Nov 08, 2022 [facility]ICA [facility]AUHANA[facility] ORAL DISCONT INUED (EDIT) 08/13/2023 [id number] AFRICA CHAUHAN 2022 45 [place] [facility] FUROSEMIDE 20MG TAB FUROSEMI DE 20MG TAB Disconti nued TAKE ONE TABLET BY MOUTH EVERY MORNING FOR HEART FAILURE FOR HEART FAILURE August 07, 2022 90 August 08, 2023 [id number] August 07, 2022 AFRICA CHAUHAN [facility] ORAL DISCONT INUED 08/08/2023 [id number] AFRICA CHAUHAN 2022 90 [place] [facility] HYDROCHLORO THIAZIDE 12.5MG TAB HYDROCHL OROTHIAZ LAURA 12.5MG TAB Disconti nued TAKE ONE TABLET BY MOUTH EVERY DAY FOR BLOOD PRESSURE FOR BLOOD PRESSURE August 07, 2022 90 August 08, 2023 [id number] August 07, 2022 [facility]AN [facility] ORAL DISCONT INUED 08/08/2023 [id number] AFRICA CHAUHAN 2022 90 [place] [facility] METOPROLOL SUCCINATE 50MG TAB,SA METOPROL OL SUCCINAT E 50MG TAB,SA Disconti nued TAKE THREE TABLETS BY MOUTH EVERY DAY FOR BLOOD PRESSURE FOR BLOOD PRESSURE August 07, 2022 270 August 08, 2023 [id number] Sep 23, 2022 AFRICA CHAUHAN [facility] ORAL DISCONT INUED 08/08/2023 [id number] AFRICA CHAUHAN 2022 270 [facility] METOPROLOL TARTRATE 100MG TAB METOPROL OL TARTRATE 100MG TAB Active TAKE ONE TABLET BY MOUTH TWICE A DAY FOR BLOOD PRESSURE FOR BLOOD PRESSURE Dec 12, 2022 180 Dec 13, 2023 [id number] Sep 24, 2023 AFRICA CHAUHAN [facility] ORAL ACTIVE 12/13/2023 [id number] AFRICA CHAUHAN 2022 180 [facility] NIFEDIPINE (EQV-CC) 60MG TAB,SA NIFEDIPI NE (EQV-CC) 60MG TAB,SA Disconti nued TAKE ONE TABLET BY MOUTH EVERY DAY FOR BLOOD PRESSURE FOR BLOOD PRESSURE August 07, 2022 90 August 08, 2023 [id number] Feb 20, 2023 AFRICA CHAUHAN [facility] ORAL DISCONT INUED BY PROVIDE R 08/08/2023 [id number] AFRICA CHAUHAN 2022 90 [place] [facility] NIFEDIPINE (EQV-CC) 60MG TAB,SA NIFEDIPI NE (EQV-CC) 60MG TAB,SA Disconti nued TAKE ONE TABLET BY MOUTH EVERY DAY FOR BLOOD PRESSURE FOR BLOOD PRESSURE Jun 13, 2022 90 Sep 11, 2022 [id number] August 19, 2022 AFRICA CHAUHAN [facility] ORAL DISCONT INUED 09/11/2022 [id number] 3 AFRICA CHAUHAN 2022 90 [facility] NIFEDIPINE (EQV-CC) 90MG TAB,SA NIFEDIPI NE (EQV-CC) 90MG TAB,SA Active TAKE ONE TABLET BY MOUTH EVERY DAY FOR BLOOD PRESSURE FOR BLOOD PRESSURE Jul 17, 2023 90 Jul 17, 2024 [id number] Sep 19, 2023 AFRICA CHAUHAN [facility] ORAL ACTIVE 07/17/2024 [id number] 4 AFRICA CHAUHAN 2023 90 [facility] NIFEDIPINE (EQV-CC) 90MG TAB,SA NIFEDIPI NE (EQV-CC) 90MG TAB,SA Disconti nued TAKE ONE TABLET BY MOUTH EVERY DAY FOR BLOOD PRESSURE INCREASE D DOSE PER CO-MANAG ED CARE INCREASE D DOSE PER CO-MANAG ED CARE FOR BLOOD PRESSURE Dec 12, 2022 90 Dec 13, 2023 [id number] Jul 01, 2023 AFRICA CHAUHAN [facility] ORAL DISCONT INUED 12/13/2023 [id number] AFRICA CHAUHAN 2022 90 [facility] POTASSIUM CHLORIDE 10MEQ TAB,SA POTASSIU M CHLORIDE 10MEQ TAB,SA Active TAKE ONE TABLET BY MOUTH THREE TIMES A WEEK FOR POTASSIU M SUPPLEME NT TAKE WITH FUROSEMI DE FOR POTASSIU M SUPPLEME NT Feb 24, 2023 39 Feb 25, 2024 [id number] Feb 28, 2023 [facility] 02/25/2024 [id number] Hong DONAHUE MUNIRAJALYN Parra 2022 39 [facility] POTASSIUM CHLORIDE 10MEQ TAB,SA POTASSIU M CHLORIDE 10MEQ TAB,SA Disconti nued TAKE ONE TABLET BY MOUTH EVERY OTHER DAY FOR POTASSIU M SUPPLEME NT FOR POTASSIU M SUPPLEME NT August 12, 2022 45 August 13, 2023 [id number] Nov 08, 2022 AFRICA CHAUHAN [facility] ORAL DISCONT INUED (EDIT) 08/13/2023 [id number] AFRICA CHAUHAN 2022 45 [facility] POTASSIUM CHLORIDE 10MEQ TAB,SA POTASSIU M CHLORIDE 10MEQ TAB,SA Disconti nued TAKE ONE TABLET BY MOUTH EVERY DAY FOR CONGESTI VE HEART FAILURE FOR POTASSIU M SUPPLEME NT August 07, 2022 90 August 08, 2023 [id number] August 07, 2022 AFRICA CHAUHAN [facility] ORAL DISCONT INUED 08/08/2023 [id number] AFRICA CHAUHAN 2022 90 [facility] POTASSIUM CHLORIDE 10MEQ TAB,SA POTASSIU M CHLORIDE 10MEQ TAB,SA Disconti nued TAKE ONE TABLET BY MOUTH EVERY DAY FOR CONGESTI VE HEART FAILURE Nov 15, 2021 90 Nov 16, 2022 [id number] August 15, 2022 AFRICA CHAUHAN [facility] ORAL DISCONT INUED 11/16/2022 [id number] AFRICA CHAUHAN 2021 90 [facility] ROSUVASTATI N CA 20MG TAB ROSUVAST ATIN CA 20MG TAB Active TAKE ONE TABLET BY MOUTH AT BEDTIME FOR CORONARY ARTERY DISEASE FOR CORONARY ARTERY DISEASE Jul 17, 2023 90 Jul 17, 2024 [id number] Sep 24, 2023 AFRICA CHAUHAN [facility] ORAL ACTIVE 07/17/2024 [id number] AFRICA CHAUHAN 2023 90 [facility] ROSUVASTATI N CA 20MG TAB ROSUVAST ATIN CA 20MG TAB Disconti nued TAKE ONE TABLET BY MOUTH AT BEDTIME FOR CORONARY ARTERY DISEASE FOR CORONARY ARTERY DISEASE August 07, 2022 90 August 08, 2023 [id number] Jun 09, 2023 AFRICA CHAUHAN [facility] ORAL DISCONT INUED 08/08/2023 [id number] AFRICA CHAUHAN 2022 90 [facility] TAMSULOSIN HCL 0.4MG CAP TAMSULOS IN HCL 0.4MG CAP Active TAKE ONE CAPSULE BY MOUTH EVERY EVENING FOR PROSTATE FOR PROSTATE Jul 17, 2023Jul 17, 2024 [id number] Oct 05, 2023 AFRICA CHAUHAN [facility] ORAL ACTIVE 07/17/2024 [id number] AFRICA CHAUHAN 2023 30 [facility] Allergies, Adverse Reactions, Alerts Combined list [...] Site Reaction Lot Number CVX Code Drug Rotary Helper Status Comments Source COVID-19 ([employer]), MRNA, LNP-S, BIVALENT, PF, 30 MCG/0.3 ML DOSE 2022 300 complet ed [facility] COVID-19 ([employer]), MRNA, LNP-S, PF, 30 MCG/0.3 ML DOSE, JAMES-SUCROSE (AGES 12+ YEARS) 2021 217 complet ed [facility] COVID-19 ([employer]), MRNA, LNP-S, PF, 30 MCG/0.3 ML DOSE 2020 208 complet ed [facility] ZOSTER RECOMBINANT 2 2020 187 complet ed [facility] INFLUENZA VACCINE, QUADRIVALENT, ADJUVANTED 2020 205 complet ed [facility] INFLUENZA, UNSPECIFIED FORMULATION 2020 88 complet ed [facility] ZOSTER RECOMBINANT 1 2020 187 complet [facility] COVID-19 (P[employer]), MRNA, LNP-S, PF, 30 MCG/0.3 ML DOSE 2 2020 208 complet ed [facility] COVID-19 ([employer]), MRNA, LNP-S, PF, 30 MCG/0.3 ML DOSE 1 2020 208 complet ed [facility] INFLUENZA VACCINE, QUADRIVALENT, ADJUVANTED 2019 205 complet ed [facility] INFLUENZA, TRIVALENT, ADJUVANTED 2018 168 complet ed [facility] INFLUENZA, SEASONAL, INJECTABLE 2018 141 complet ed [facility] INFLUENZA, SEASONAL, INJECTABLE 2017 141 complet ed [facility] INFLUENZA, TRIVALENT, ADJUVANTED 2017 168 complet ed [facility] INFLUENZA, HIGH DOSE SEASONAL 2016 135 complet ed [facility] PNEUMOCOCCAL POLYSACCHARID E PPV23 2016 33 complet ed [employer] , [id number], 06/03/18 [facility] TD (ADULT), 2 LF TETANUS TOXOID, PRESERVATIVE FREE, ADSORBED 2016 09 complet ed [employer] [id number], 12/19/18 [facility] INFLUENZA, HIGH DOSE SEASONAL 2016 135 complet ed [facility] PNEUMOCOCCAL POLYSACCHARID E PPV23 2016 33 complet ed [facility] INFLUENZA, HIGH DOSE SEASONAL 2015 135 complet ed [facility] PNEUMOCOCCAL CONJUGATE PCV 13 2015 133 complet ed [employer] [facility] PNEUMOCOCCAL CONJUGATE PCV 13 2014 133 complet ed [facility] INFLUENZA, UNSPECIFIED FORMULATION 2013 88 complet ed [facility] INFLUENZA, UNSPECIFIED FORMULATION 2013 88 complet ed [facility] INFLUENZA, UNSPECIFIED FORMULATION 2011 88 complet ed [facility] INFLUENZA, UNSPECIFIED FORMULATION 2010 88 complet ed [facility] PNEUMOCOCCAL, UNSPECIFIED FORMULATION 2009 109 complet ed [employer],093 02, 011 [facility] TDAP 2009 115 complet ed [facility] ZOSTER LIVE 2008 121 complet ed [facility] TDAP 2007 115 complet ed private [facility] ZOSTER LIVE 2006 121 complet ed [facility] Results Combined list of recent chemistry, [...] Jul 17, 2023 04:23 PM Reporting Lab: [facility] [address] Performing Lab: [facility] [address] [facility] URINALYS IS SPECIFIC GRAVITY OF URINE 1.006 1.003 - 1.035 07/16 Specimen Type: URINE No comment entered. Ordering Provider: TERRENCE CHAUHAN Report Released Date/Time: Jul 17, 2023 04:23 PM Reporting Lab: [facility] [address] Performing Lab: [facility] [address] [facility] URINALYS IS BILIRUBIN. TOTAL [PRESENCE] IN URINE BY TEST STRIP NEGATIVE 07/16 Specimen Type: URINE No comment entered. Ordering Provider: TERRENCE CHAUHAN Report Released Date/Time: Jul 17, 2023 04:23 PM Reporting Lab: [facility] [address] Performing Lab: [facility] [address] [facility] URINALYS IS KETONES [MASS/VOLU ME] IN URINE BY TEST STRIP NEGATIVE 07/16 Specimen Type: URINE No comment entered. Ordering Provider: TERRENCE CHAUHAN Report Released Date/Time: Jul 17, 2023 04:23 PM Reporting Lab: [facility] [address] Performing Lab: [facility] [address] [place] [facility] URINALYS IS GLUCOSE [MASS/VOLU ME] IN URINE BY TEST STRIP NEGATIVE mg/dL 07/16 Specimen Type: URINE No comment entered. Ordering Provider: TERRENCE CHAUHAN Report Released Date/Time: Jul 17, 2023 04:23 PM Reporting Lab: [facility] [address] Performing Lab: [facility] [address] [place] [facility] URINALYS IS PROTEIN [MASS/VOLU ME] IN URINE BY TEST STRIP NEGATIVE mg/dL 07/16 Specimen Type: URINE No comment entered. Ordering Provider: TERRENCE CHAUHAN Report Released Date/Time: Jul 17, 2023 04:23 PM Reporting Lab: [facility] [address] Performing Lab: [facility] [address] [place] [facility] URINALYS IS PH OF URINE BY TEST STRIP 7.0 5.0 - 8.0 07/16 Specimen Type: URINE No comment entered. Ordering Provider: TERRENCE CHAUHAN Report Released Date/Time: Jul 17, 2023 04:23 PM Reporting Lab: [facility] [address] Performing Lab: [facility] [address] [facility] LEUKOCYTES [#/AREA] IN URINE SEDIMENT BY MICROSCOPY HIGH POWER FIELD <1/[HPF] 0 - 7 07/16 Specimen Type: URINE No comment entered. Ordering Provider: TERRENCE CHAUHAN Report Released Date/Time: Jul 17, 2023 04:23 PM Reporting Lab: [facility] [address] Performing Lab: [facility] [address] [place] [facility] URINALYS IS BACTERIA [PRESENCE] IN URINE SEDIMENT BY LIGHT MICROSCOPY NONE SEEN 07/16 Specimen Type: URINE No comment entered. Ordering Provider: TERRENCE CHAUHAN Report Released Date/Time: Jul 17, 2023 04:23 PM Reporting Lab: [facility] [address] Performing Lab: [facility] [address] [place] [facility] URINALYS IS ERYTHROCYT ES [#/AREA] IN URINE SEDIMENT BY MICROSCOPY HIGH POWER FIELD <1/[HPF] 0 - 3 07/16 Specimen Type: URINE No comment entered. Ordering Provider: TERRENCE CHAUHAN Report Released Date/Time: Jul 17, 2023 04:23 PM Reporting Lab: [facility] [address] Performing Lab: [facility] [address] [place] [facility] URINALYS IS APPEARANCE OF URINE CLEAR 07/16 Specimen Type: URINE No comment entered. Ordering Provider: TERRENCE CHAUHAN Report Released Date/Time: Jul 17, 2023 04:23 PM Reporting Lab: [facility] [address] Performing Lab: [facility] [address] [place] [facility] URINALYS IS EPITHELIAL CELLS.SQUA MOUS [#/AREA] IN URINE SEDIMENT BY MICROSCOPY HIGH POWER FIELD NONE SEEN/[HP F] 07/16 Specimen Type: URINE No comment entered. Ordering Provider: TERRENCE CHAUHAN Report Released Date/Time: Jul 17, 2023 04:23 PM Reporting Lab: [facility] [address] Performing Lab: [facility] [address] [place] [facility] URINALYS IS HEMOGLOBIN [PRESENCE] IN URINE BY TEST STRIP NEGATIVE 07/16 Specimen Type: URINE No comment entered. Ordering Provider: TERRENCE CHAUHAN Report Released Date/Time: Jul 17, 2023 04:23 PM Reporting Lab: [facility] [address] Performing Lab: [facility] [address] [place] [facility] URINALYS IS NITRITE [PRESENCE] IN URINE BY TEST STRIP NEGATIVE 07/16 Specimen Type: URINE No comment entered. Ordering Provider: TERRENCE CHAUHAN Report Released Date/Time: Jul 17, 2023 04:23 PM Reporting Lab: [facility] [address] Performing Lab: [facility] [address] [facility] URINALYS IS LEUKOCYTE ESTERASE [PRESENCE] IN URINE BY TEST STRIP NEGATIVE 07/16 Specimen Type: URINE No comment entered. Ordering Provider: TERRENCE CHAUHAN Report Released Date/Time: Jul 17, 2023 04:23 PM Reporting Lab: [facility] [address] Performing Lab: [facility] [address] [facility] HEMOGLOB IN A1C HEMOGLOBIN A1C/HEMOGL OBIN.TOTAL [...] August 07, 2022 02:21 PM Reporting Lab: [facility] [address] Performing Lab: [facility] [address] [facility] BASIC METABOLI C PANEL+MG CREATININE [MASS/VOLU ME] IN SERUM OR PLASMA 1.3 mg/dL 0.7 - 1.2 07/16 H Specimen Type: PLASMA No comment entered. Ordering Provider: TERRENCE CHAUHAN Report Released Date/Time: August 07, 2022 02:21 PM Reporting Lab: [facility] [address] Performing Lab: [facility] [address] [facility] BASIC METABOLI C PANEL+MG UREA NITROGEN [MASS/VOLU ME] IN SERUM OR PLASMA 15 mg/dL 8 - 26 07/16 Specimen Type: PLASMA No comment entered. Ordering Provider: TERRENCE CHAUHAN Report Released Date/Time: August 07, 2022 02:21 PM Reporting Lab: [facility] [address] Performing Lab: [facility] [address] [place] [facility] BASIC METABOLI C PANEL+MG GLUCOSE [MASS/VOLU ME] IN SERUM OR PLASMA 84 mg/dL 70 - 100 07/16 Specimen Type: PLASMA No comment entered. Ordering Provider: TERRENCE CHAUHAN Report Released Date/Time: August 07, 2022 02:21 PM Reporting Lab: [facility] [address] Performing Lab: [facility] [address] [place] [facility] BASIC METABOLI C PANEL+MG SODIUM [MOLES/VOL UME] IN SERUM OR PLASMA 137 mmol/L 136 - 145 07/16 Specimen Type: PLASMA No comment entered. Ordering Provider: TERRENCE CHAUHAN Report Released Date/Time: August 07, 2022 02:21 PM Reporting Lab: [facility] [address] Performing Lab: [facility] [address] [place] [facility] BASIC METABOLI C PANEL+MG POTASSIUM [MOLES/VOL UME] IN SERUM OR PLASMA 4.6 mmol/L 3.5 - 5.1 07/16 Specimen Type: PLASMA No comment entered. Ordering Provider: TERRENCE CHAUHAN Report Released Date/Time: August 07, 2022 02:21 PM Reporting Lab: [facility] [address] Performing Lab: [facility] [address] [place] [facility] BASIC METABOLI C PANEL+MG CHLORIDE [MOLES/VOL UME] IN SERUM OR PLASMA 105 mmol/L 98 - 107 07/16 Specimen Type: PLASMA No comment entered. Ordering Provider: TERRENCE CHAUHAN Report Released Date/Time: August 07, 2022 02:21 PM Reporting Lab: [facility] [address] Performing Lab: [facility] [address] [place] [facility] BASIC METABOLI C PANEL+MG CARBON DIOXIDE, TOTAL [MOLES/VOL UME] IN SERUM OR PLASMA 24 mmol/L 22 - 29 07/16 Specimen Type: PLASMA No comment entered. Ordering Provider: TERRENCE CHAUHAN Report Released Date/Time: August 07, 2022 02:21 PM Reporting Lab: [facility] [address] Performing Lab: [facility] [address] [place] [facility] BASIC METABOLI C PANEL+MG CALCIUM [MASS/VOLU ME] IN SERUM OR PLASMA 8.9 mg/dL 8.4 - 10.2 07/16 Specimen Type: PLASMA No comment entered. Ordering Provider: TERRENCE CHAUHAN Report Released Date/Time: August 07, 2022 02:21 PM Reporting Lab: [facility] [address] Performing Lab: [facility] [address] [place] [facility] BASIC METABOLI C PANEL+MG MAGNESIUM [MASS/VOLU ME] IN SERUM OR PLASMA 2.1 mg/dL 1.6 - 2.6 07/16 Specimen Type: PLASMA No comment entered. Ordering Provider: TERRENCE CHAUHAN Report Released Date/Time: August 07, 2022 02:21 PM Reporting Lab: [facility] [address] Performing Lab: [facility] [address] [place] [facility] BASIC METABOLI C PANEL+MG ANION GAP IN SERUM OR PLASMA 8 mmol/L 5 - 15 07/16 Specimen Type: PLASMA No comment entered. Ordering Provider: TERRENCE CHAUHAN Report Released Date/Time: August 07, 2022 02:21 PM Reporting Lab: [facility] [address] Performing Lab: [facility] [address] [place] [facility] BASIC METABOLI C PANEL+MG GLOMERULAR FILTRATION RATE/1.73 SQ M.PREDICTE D [VOLUME RATE/AREA] IN SERUM, PLASMA OR BLOOD BY CREATININE -BASED FORMULA (CKD-EPI 2020) 56 60 07/16 L Specimen Type: PLASMA No comment entered. Ordering Provider: TERRENCE CHAUHAN Report Released Date/Time: August 07, 2022 02:21 PM Reporting Lab: [facility] [address] Performing Lab: [facility] [address] [place] [facility] CBC LEUKOCYTES [#/VOLUME] IN BLOOD BY AUTOMATED COUNT 8.72 10*3/uL 4.0 - 11.0 07/16 Specimen Type: BLOOD No comment entered. Ordering Provider: TERRENCE CHAUHAN Report Released Date/Time: August 07, 2022 02:21 PM Reporting Lab: [facility] [address] Performing Lab: [facility] [address] [place] [facility] CBC ERYTHROCYT ES [#/VOLUME] IN BLOOD BY AUTOMATED COUNT 4.11 10*6/uL 4.6 - 6.2 07/16 L Specimen Type: BLOOD No comment entered. Ordering Provider: TERRENCE CHAUHAN Report Released Date/Time: August 07, 2022 02:21 PM Reporting Lab: [facility] [address] Performing Lab: [facility] [address] [place] [facility] CBC HEMOGLOBIN [MASS/VOLU ME] IN BLOOD 13.4 g/dL 13.5 - 17.9 07/16 L Specimen Type: BLOOD No comment entered. Ordering Provider: TERRENCE CHAUHAN Report Released Date/Time: August 07, 2022 02:21 PM Reporting Lab: [facility] [address] Performing Lab: [facility] [address] [place] [facility] CBC HEMATOCRIT [VOLUME FRACTION] OF BLOOD BY AUTOMATED COUNT 39.7 41 - 54 07/16 L Specimen Type: BLOOD No comment entered. Ordering Provider: TERRENCE CHAUHAN Report Released Date/Time: August 07, 2022 02:21 PM Reporting Lab: [facility] [phone] Performing Lab: [facility] [address] [place] [facility] CBC MCV [ENTITIC VOLUME] BY AUTOMATED COUNT 96.6 fL 80 - 100 07/16 Specimen Type: BLOOD No comment entered. Ordering Provider: TERRENCE CHAUHAN Report Released Date/Time: August 07, 2022 02:21 PM Reporting Lab: [facility] [address] Performing Lab: [facility] [address] [place] [facility] CBC MCH [ENTITIC MASS] BY AUTOMATED COUNT 32.6 pg 27 - 33 07/16 Specimen Type: BLOOD No comment entered. Ordering Provider: TERRENCE CHAUHAN Report Released Date/Time: August 07, 2022 02:21 PM Reporting Lab: [facility] [address] Performing Lab: [facility] [address] [facility] CBC MCHC [MASS/VOLU ME] BY AUTOMATED COUNT 33.8 g/dL 32.0 - 37.5 07/16 Specimen Type: BLOOD No comment entered. Ordering Provider: TERRENCE CHAUHAN Report Released Date/Time: August 07, 2022 02:21 PM Reporting Lab: [facility] [address] Performing Lab: [facility] [address] [facility] CBC PLATELETS [#/VOLUME] IN BLOOD BY AUTOMATED COUNT 159 10*3/uL 150 - 400 07/16 Specimen Type: BLOOD No comment entered. Ordering Provider: TERRENCE CHAUHAN Report Released Date/Time: August 07, 2022 02:21 PM Reporting Lab: [facility] [address] Performing Lab: [facility] [address] [facility] CBC PLATELET MEAN VOLUME [ENTITIC VOLUME] IN BLOOD BY AUTOMATED COUNT 9.6 fL 7.4 - 10.4 07/16 Specimen Type: BLOOD No comment entered. Ordering Provider: TERRENCE CHAUHAN Report Released Date/Time: August 07, 2022 02:21 PM Reporting Lab: [facility] [address] Performing Lab: [facility] [address] [facility] CBC ERYTHROCYT E DISTRIBUTI ON WIDTH [RATIO] BY AUTOMATED COUNT 14.1 11.5 - 14.5 07/16 Specimen Type: BLOOD No comment entered. Ordering Provider: TERRENCE CHAUHAN Report Released Date/Time: August 07, 2022 02:21 PM Reporting Lab: [facility] [address] Performing Lab: [facility] [address] [facility] LIVER FUNCTION TESTS BILIRUBIN. TOTAL [MASS/VOLU ME] IN SERUM OR PLASMA 0.8 mg/dL 0.2 - 1.2 07/16 Specimen Type: PLASMA No comment entered. Ordering Provider: TERRENCE CHAUHAN Report Released Date/Time: August 07, 2022 02:21 PM Reporting Lab: [facility] [address] Performing Lab: [facility] [address] [facility] LIVER FUNCTION TESTS ALKALINE PHOSPHATAS E [ENZYMATIC ACTIVITY/V OLUME] IN SERUM OR PLASMA 52 U/L 40 - 150 07/16 Specimen Type: PLASMA No comment entered. Ordering Provider: TERRENCE CHAUHAN Report Released Date/Time: August 07, 2022 02:21 PM Reporting Lab: [facility] [address] Performing Lab: [facility] [address] [facility] LIVER FUNCTION TESTS ALANINE AMINOTRANS FERASE [ENZYMATIC ACTIVITY/V OLUME] IN SERUM OR PLASMA 20 U/L <55 - 55 07/16 Specimen Type: PLASMA No comment entered. Ordering Provider: TERRENCE CHAUHAN Report Released Date/Time: August 07, 2022 02:21 PM Reporting Lab: [facility] [address] Performing Lab: [facility] [address] [facility] LIVER FUNCTION TESTS ASPARTATE AMINOTRANS FERASE [ENZYMATIC ACTIVITY/V OLUME] IN SERUM OR PLASMA 19 U/L <34 - 34 07/16 Specimen Type: PLASMA No comment entered. Ordering Provider: TERRENCE CHAUHAN Report Released Date/Time: August 07, 2022 02:21 PM Reporting Lab: [facility] [address] Performing Lab: [facility] [address] [facility] LIVER FUNCTION TESTS GAMMA GLUTAMYL TRANSFERAS E [ENZYMATIC ACTIVITY/V OLUME] IN SERUM OR PLASMA 38 U/L <64 - 64 07/16 Specimen Type: PLASMA No comment entered. Ordering Provider: TERRENCE CHAUHAN Report Released Date/Time: August 07, 2022 02:21 PM Reporting Lab: [place] [id number] Performing Lab: [place] [address] [facility] PSA PROSTATE SPECIFIC AG [MASS/VOLU ME] IN SERUM OR PLASMA 3.84 ng/mL <4.00 - 4.00 07/16 Specimen Type: SERUM No comment entered. Ordering Provider: TERRENCE CHAUHAN Report Released Date/Time: August 07, 2022 02:21 PM Reporting Lab: [place] [address] Performing Lab: [place] [address] [facility] CREATINI NE(INCLU SATHYA EGFR) CREATININE [MASS/VOLU ME] IN SERUM OR PLASMA 1.2 mg/dL 0.7 - 1.2 04/16 Specimen Type: PLASMA No comment entered. Ordering Provider: HUYEN HYLTON Report Released Date/Time: Mar 07, 2023 02:00 PM Reporting Lab: [place] [address] Performing Lab: [place] [address] [facility] CREATINI NE(INCLU SATHYA EGFR) GLOMERULAR FILTRATION RATE/1.73 SQ M.PREDICTE D [VOLUME RATE/AREA] IN SERUM, PLASMA OR BLOOD BY CREATININE -BASED FORMULA (CKD-EPI 2020) 62 60 04/16 Specimen Type: PLASMA No comment entered. Ordering Provider: HUYEN HYLTON Report Released Date/Time: Mar 07, 2023 02:00 PM Reporting Lab: [address] Performing Lab: [address] [facility] CBC LEUKOCYTES [#/VOLUME] IN BLOOD BY AUTOMATED COUNT 8.06 10*3/uL 4.0 - 11.0 04/16 Specimen Type: BLOOD No comment entered. Ordering Provider: HUYEN HYLTON Report Released Date/Time: Mar 07, 2023 02:00 PM Reporting Lab: [place] [address] Performing Lab: [place] [address] [facility] CBC ERYTHROCYT ES [#/VOLUME] IN BLOOD BY AUTOMATED COUNT 4.03 10*6/uL 4.6 - 6.2 04/16 L Specimen Type: BLOOD No comment entered. Ordering Provider: HUYEN HYLTON Report Released Date/Time: Mar 07, 2023 02:00 PM Reporting Lab: [place] [address] Performing Lab: [place] [address] [facility] CBC HEMOGLOBIN [MASS/VOLU ME] IN BLOOD 13.1 g/dL 13.5 - 17.9 04/16 L Specimen Type: BLOOD No comment entered. Ordering Provider: HUYEN HYLTON Report Released Date/Time: Mar 07, 2023 02:00 PM Reporting Lab: [place] [address] Performing Lab: [place] [address] [facility] CBC HEMATOCRIT [VOLUME FRACTION] OF BLOOD BY AUTOMATED COUNT 38.9 41 - 54 04/16 L Specimen Type: BLOOD No comment entered. Ordering Provider: HUYEN HYLTON Report Released Date/Time: Mar 07, 2023 02:00 PM Reporting Lab: [place] [address] Performing Lab: [place] [address] [facility] CBC MCV [ENTITIC VOLUME] BY AUTOMATED COUNT 96.5 fL 80 - 100 04/16 Specimen Type: BLOOD No comment entered. Ordering Provider: HUYEN HYLTON Report Released Date/Time: Mar 07, 2023 02:00 PM Reporting Lab: [place] [address] Performing Lab: [place] [address] [facility] CBC MCH [ENTITIC MASS] BY AUTOMATED COUNT 32.5 pg 27 - 33 04/16 Specimen Type: BLOOD No comment entered. Ordering Provider: HUYEN HYLTON Report Released Date/Time: Mar 07, 2023 02:00 PM Reporting Lab: [facility] [address] Performing Lab: [facility] [address] [facility] CBC MCHC [MASS/VOLU ME] BY AUTOMATED COUNT 33.7 g/dL 32.0 - 37.5 04/16 Specimen Type: BLOOD No comment entered. Ordering Provider: HUYEN HYLTON Report Released Date/Time: Mar 07, 2023 02:00 PM Reporting Lab: [facility] [address] Performing Lab: [facility] [address] [facility] CBC PLATELETS [#/VOLUME] IN BLOOD BY AUTOMATED COUNT 157 10*3/uL 150 - 400 04/16 Specimen Type: BLOOD No comment entered. Ordering Provider: HUYEN HYLTON Report Released Date/Time: Mar 07, 2023 02:00 PM Reporting Lab: [facility] [address] Performing Lab: [facility] [address] [facility] CBC PLATELET MEAN VOLUME [ENTITIC VOLUME] IN BLOOD BY AUTOMATED COUNT 9.7 fL 7.4 - 10.4 04/16 Specimen Type: BLOOD No comment entered. Ordering Provider: HUYEN HYLTON Report Released Date/Time: Mar 07, 2023 02:00 PM Reporting Lab: [facility] [address] Performing Lab: [facility] [address] [facility] CBC ERYTHROCYT E DISTRIBUTI ON WIDTH [RATIO] BY AUTOMATED COUNT 14.5 11.5 - 14.5 04/16 Specimen Type: BLOOD No comment entered. Ordering Provider: HUYEN HYLTON Report Released Date/Time: Mar 07, 2023 02:00 PM Reporting Lab: [facility] [address] Performing Lab: [facility] [address] [facility] AST/SGOT ASPARTATE AMINOTRANS FERASE [ENZYMATIC ACTIVITY/V OLUME] IN SERUM OR PLASMA 22 U/L <34 - 34 04/16 Specimen Type: PLASMA No comment entered. Ordering Provider: HUYEN HYLTON Report Released Date/Time: Mar 07, 2023 02:00 PM Reporting Lab: [facility] [address] Performing Lab: [facility] [address] [facility] ALT/SGPT ALANINE AMINOTRANS FERASE [ENZYMATIC ACTIVITY/V OLUME] IN SERUM OR PLASMA 19 U/L <55 - 55 04/16 Specimen Type: PLASMA No comment entered. Ordering Provider: HUYEN HYLTON Report Released Date/Time: Mar 07, 2023 02:00 PM Reporting Lab: [facility] [address] Performing Lab: [facility] [address] [facility] Vital Signs Combined list of inpatient [...] ADM Date DC Date Status Disposition Source [facility] EMERGENCY DEPT VISIT SF MDM [id number] Diagnos is: ICD-10- CM Z76.0 Encount er for issue of repeat prescri ption<b r/> AICHA GALLEGOS 05/09 [facility] Outpatient Encounter [id number] 05/09 [facility] Outpatient Encounter [id number] 06/12 [facility] Out[facility] Encounter [id number] 07/15 [facility] OFFICE O/P EST MOD 30-39 MIN [id number] Diagnos is: ICD-10- CM Z00.01 Encount er for general adult medical exam w abnorma l finding s
DEDANETTE VALDEZ LY E 08/07 [facility] Out[facility] Encounter [id number] 08/07 [facility] Outpatient Encounter [id number] JUSTIN ROGERSHong GLORIA M 08/12 [facility] Outpatient Encounter [id number] KENOLESYA GLORIA M 08/12 [facility] Outpatient Encounter [id number] Ana CHAUHAN 09/12 [facility] Outpatient Encounter [id number] 11/06 [facility] Out[facility] Encounter [id number] 12/08 [facility] Outpatient Encounter [id number] 12/12 [facility] Outpatient Encounter [id number] 01/17 [facility] Outpatient Encounter [id number] 02/19 [facility] Outpatient Encounter [id number] 02/24 [facility] Outpatient Encounter [id number] 03/07 [facility] QNHP OL DIG ASSMT&MGMT 5-10 [id number] Diagnos is: ICD-10- CM Z79.01 [facility] (curren t) use of anticoa gulants
ELLEN GARCIA 05/29 [facility] OFFICE O/P EST MOD 30 MIN [id number] Diagnos is: ICD-10- CM Z00.01 Encount er for general adult medical exam w abnorma l finding s
Ana CHAUHAN 07/16 [facility] Outpatient Encounter [id number] 07/17 [facility] Social History Combined list of available smoking, tobacco, and other social history from Department of Defense and Veterans Affairs facilities. Social History Type Response Date Comment Sour e Tobacco smoking status NCIS DE-TOBACCO FORMER USER 07/17/2023 [facility] 5 Y[facility] 07/17/2023 [facility] History of tobacco use DE-TOBACCO FORMER USER 08/07/2022 [facility] History of tobacco use DE-TOBACCO FORMER USER 10/16/2020 [facility] UNSEL NO 03/29/2019 [facility] History of tobacco use DE-TOBACCO USE [place] 30 MIN OF WAKEUP 02/17/2018 [...]
== END 2023-10-27 10:24 | disposition home or self-care (01) ==
LOC: WOUND 10:23
PROVIDERS: PCP Family Medicine; Visit Provider Nurse Practitioner Family
DX: L72.0 Epidermal cyst (principal)
CPT/HCPCS: 11042

== ENCOUNTER 2023-11-03 10:23 | Outpatient (CLI) | payer MEDICARE, BC, SELFPAY ==
--- OUTSIDE RECORDS SUMMARY | 2023-11-03 10:27 | XMS_ITS | Clinical Summary ---
Author Organization [employer] [facility] Address [place], [place] [address] Care Team Providers Care Apparel Stock Checker Name Role Phone Klever Monte MD Primary Care Provider [phone] Allergies Active Allergy Reactions Criticality Noted Date [...] glide device 08/01/20 1. 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 [phone] Unknown, Doctor 08/04/2023 8:35 AM CDT Office Visit [facility] [address] [place], [place] [id number] Jena Pascual PA Follow Up (Boil) 08/04/2023 Travel from Last 3 Months Immunizations Name [...] T Respiratory Rate 18 03/17/2023 3:35 PM PLANT PROPAGATOR Oxygen Saturation 96% 08/04/2023 8:35 AM CDT Inhaled Oxygen Concentration - - Weight 90.7 kg (200 lb) 08/04/2023 8:35 AM CDT Height 190.5 cm (6' 3) 03/17/2023 2:07 PM PLANT PROPAGATOR Body Mass Index 25 03/17/2023 2:07 PM PLANT PROPAGATOR Plan of Treatment Health Maintenance Due Date [...] TISSUE EXAM Routine 08/05/2023 2:01 PM CDT ANTI HCV Routine 05/16/2021 3:20 PM PLANT PROPAGATOR Need for hepatitis C screening test CT CHEST WO Routine 08/29/2010 4:53 PM CDT Pulmonary nodules from Last 3 Months or Most Recently Relevant to Health Maintenance Results * LAB TRACKING EVENT (08/05/2023 2:01 PM CDT) Other (Other) Client Collect / Unknown 08/05/2023 2:01 PM CDT 08/05/2023 9:37 PM CDT Doctor Unknown LAB BILL ONLY [facility] [address] [place] [address], * PATH TISSUE EXAM (08/05/2023 2:01 PM CDT) Case Report Pathology Report ?Case: [id number] ? Authorizing Provider: ??Unknown, Doctor ?Collected: ? 08/05/2023 1401 ? Ordering Location: ? [facility] ?Received: ?08/06/2023 1013 ? Pathologist: ? Jose Rinaldi MD ? Specimen: ?Back ? 08/07/2023 4:47 PM CDT [facility] Final Diagnosis A) SKIN, BACK, CYST, EXCISION: 1. Epidermoid cyst 2. Negative for dysplasia or malignancy 08/07/2023 4:47 PM CDT [facility] Clinical Information back cyst 08/07/2023 4:47 PM CDT [facility] Gross Description A) Received in formalin, labeled with the patient's name and date of , is a 1.5 x 1.1 x 0.3 cm aggregate of pale-garcia cyst wall fragments admixed with garcia-white soft, friable cyst contents. ??The specimen is filtered and submitted entirely in 1 cassette. [facility] 08/06/2023 08/07/2023 4:47 PM CDT [facility] Microscopic Description The final diagnosis is based on microscopic examination of appropriate sections of all specimens. 08/07/2023 4:47 PM CDT [facility] Additional Information Interpreted at [facility] - [address], [place] [address] 08/07/2023 4:47 PM CDT [facility] Other (Back) 08/05/2023 2:01 PM CDT 08/06/2023 10:13 AM CDT Doctor Unknown PATHOLOGY/CYTOLOGY [facility] [address] [place] [address], * ANTI HCV (05/16/2021 3:20 PM PLANT PROPAGATOR) HEPATITIS C ANTIBODY Non-React edelmira Non-React edelmira 05/17/2021 1:21 AM PLANT PROPAGATOR [facility] Comment:Antibodies to HCV no t detected; does not exclude the possibility of exposure to HCV. Blood BLOOD SPECIMEN / Unknown Venipuncture / Unknown 05/16/2021 3:20 PM PLANT PROPAGATOR 05/16/2021 3:25 PM PLANT PROPAGATOR Zak Garcia MD SEND OUTS [facility] [address] [place] [address], [place] * CT CHEST WO CONTRAST (08/29/2010 [...] Comments Code Status Discussion: Discussed Care Teams Apparel Stock Checker Relationship Specialty Start Date End Date Klever Monte MD [address] [place] [address] PCP - General Family Practice 06/12/22
--- OUTSIDE RECORDS SUMMARY | 2023-11-03 10:27 | XMS_ITS | Continuity of Care Document ---
Author Name [facility] Organization [facility] Care Team Providers Care College Associate Name Role Phone [facility] Unavailable Unavailable Problems Combined list of problems from Department of Defense and Veterans Affairs facilities. It does not include entries that were removed or entered in error. Problem Status Onset Date Problem Type Date of Resolution Comments Source CVD - Cerebrovascular Disease ([facility] 23078664) Active 03/19/20 20 Condition May 01, 2020 Entered By: YOAV CHAUHAN Comment: 03/19/20: L MCA CVA, Admit ANW. Cardio-embol ic d/t Warfarin DC [facility] CAD - Coronary Artery Disease ([facility] 80726349) Active 01/27/20 20 Condition Mar 13, 2020 Entered By: YOAV CHAUHAN Comment: 01/27/20: LAD and Dx stented w/SATHYA at [facility]. Plavix +ASA thru 01/26/21 [facility] Peripheral arterial insufficiency Active 01/21/20 20 Condition Mar 13, 2020 Entered By: YOAV CHAUHAN Comment: 01/21/20: L femoral Art occlusion per [facility]-->Fem -Tibial bypass planned [facility] Allergic rhinitis (SNOMED CT 59183420) Active Condition [facility] Atrial fibrillation (SNOMED CT 01815666) Active Condition Apr 26, 2015 Entered By: YOAV CHAUHAN Comment: Warfarin through Miryam Rodriguez [facility] Co-Managed Care Active Condition Dec 25, 2017 Entered By: YOAV CHAUHAN Comment: Dr Garcia, Michael Durham, F: [phone] , [facility] COPD - Chronic Obstructive Pulmonary Disease ([facility] 02066520) Active Condition Dec 25, 2017 Entered By: YOAV CHAUHAN Comment: Mometasone & Albuterol MDI's [facility] [place] of toe Active Condition Sep 08, 2019 Entered By: YOAV CHAUHAN Comment: R middle toe [facility] Current smoker Active Condition Apr 082015 Entered By: YOAV CHAUHAN Comment: Cigars, not cigarettes [facility] Essential hypertension (SNOMED CT 59042236) Active Condition [facility] Glucose intolerance Active Condition [facility] Nocturia due to benign prostatic hypertrophy Active Condition [facility] Health Maintenance (ICD-9-CM V65.9) Inactive Condition 04/26/2015 [facility] Diagnosis: ICD-10-CM Z00.01 Encounter for general adult medical exam w abnormal findings [facility] Diagnosis: 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 [facility] Diagnosis: ICD-10-CM Z76.0 Encounter for issue of repeat prescription Active Diagnosis [facility] Medications Combined list of outpatient medications from [...] Jul 17, 2023 2 Jul 17, 2024 [id number] Sep 24, 2023 AFRICA CHAUHAN [facility] RESPIR ATORY (INHAL ATION) ACTIVE 07/17/2024 [id number] AFRICA CHAUHAN 2023 2 [facility] ALBUTEROL 90MCG/ACTUA T (CFC-F) INHL,ORAL,8 .5GM DOSE COUNTER ALBUTERO L 90MCG/AC TUAT (CFC-F) INHL,ORA L,8.5GM DOSE COUNTER Disconti nued INHALE 2 PUFFS BY INHALATI ON FOUR TIMES A DAY NEEDED FOR SHORTNES S OF BREATH FOR SHORTNES S OF BREATH August 07, 2022 2 August 08, 2023 [id number] August 07, 2022 AFRICA CHAUHAN [facility] RESPIR ATORY (INHAL ATION) DISCONT INUED 08/08/2023 [id number] FARICA CHAUHAN 2022 2 [facility] APIXABAN 5MG TAB APIXABAN 5MG TAB Active TAKE ONE TABLET BY MOUTH EVERY 12 HOURS TO PREVENT BLOOD CLOTS AND STROKE (ELIQUIS ) May 29, 2023 180 May 29, 2024 [id number] C September 04, 2023 ZOFIA GARCIA [facility] ORAL ACTIVE 05/29/2024 [id number] MARIANO GARCIA 2023 180 [facility] APIXABAN 5MG TAB APIXABAN 5MG TAB Disconti nued TAKE ONE TABLET BY MOUTH EVERY 12 HOURS TO PREVENT BLOOD CLOTS AND STROKE (ELIQUIS ) May 08, 2022 180 May 09, 2023 [id number] Mar 20, 2023 ZOFIA GARCIA [facility] ORAL DISCONT INUED 05/09/2023 [id number] 3 MARIANO GARCIA 2022 180 [facility] CHOLECALCIF JONNA 25MCG (1,000UNIT) TAB CHOLECAL CIFEROL 25MCG (1,000UN IT) TAB Non-VA TAKE FIVE TABLETS BY MOUTH QOD Feb 12, 2017 Non-[facility] Document ed by: AFRICA CHAUHAN Document ed at: [facility] ORAL ACTIVE AFRICA CHAUHAN 2016 [facility] FLUOCINONID E 0.1% CREAM,TOP FLUOCINO NIDE 0.1% CREAM,TO P Active APPLY A THIN LAYER TOPICALL Y TWICE A DAY NEEDED FOR RASH FOR RASH Dec 12, 2022 60 Dec 13, 2023 [id number] Dec 13, 2022 AFRICA CHAUHAN [facility] TOPICA L ACTIVE 12/13/2023 [id number] AFRICA CHAUHAN 2022 60 [facility] FLUTICASONE 250MCG/SALM ETEROL 50MCG INHL,ORAL,D ISKUS,60 FLUTICAS ONE 250MCG/S ALMETERO L 50MCG INHL,ORA L,DISKUS ,60 Active INHALE 1 PUFF BY INHALATI ON TWICE A DAY FOR COPD FOR COPD Jul 17, 2023 3 Jul 17, 2024 [id number] Oct 15, 2023 [facility]AU[facility]AN [facility] (INHAL ATION) ACTIVE 07/17/2024 [id number] AFRICA CHAUHAN 2023 3 [place] [facility] FLUTICASONE 250MCG/SALM ETEROL 50MCG INHL,ORAL,D ISKUS,60 FLUTICAS ONE 250MCG/S ALMETERO L 50MCG INHL,ORA L,DISKUS ,60 Disconti nued INHALE 1 PUFF BY INHALATI ON TWICE A DAY FOR COPD THIS REPLACES YOUR MOMETASO NE FOR COPD August 07, 2022 3 August 08, 2023 [id number] Apr 24, 2023 AFRICA CHAUHANO [facility] [facility] RESPIR ATORY (INHAL ATION) DISCONT INUED 08/08/2023 [id number] AFRICA CHAUHAN 2022 3 [facility] FUROSEMIDE 20MG TAB FUROSEMI DE 20MG TAB Active TAKE ONE TABLET BY MOUTH THREE TIMES A WEEK FOR HEART FAILURE FOR HEART FAILURE Feb 24, 2023 39 Feb 25, 2024 [id number] Feb 28, 2023 SASHA DONAHUE [facility] ORAL ACTIVE 02/25/2024 [id number] Hong DONAHUE A 2022 39 [facility] FUROSEMIDE 20MG TAB FUROSEMI DE 20MG TAB Disconti nued TAKE ONE TABLET BY MOUTH EVERY OTHER DAY FOR HEART FAILURE FOR HEART FAILURE August 12, 2022 45 August 13, 2023 [id number] Nov 08, 2022 AFRICA CHAUHANAPO LIS [facility] ORAL DISCONT INUED (EDIT) 08/13/2023 [id number] AFRICA CHAUHAN 2022 45 [place] [facility] FUROSEMIDE 20MG TAB FUROSEMI DE 20MG TAB Disconti nued TAKE ONE TABLET BY MOUTH EVERY MORNING FOR HEART FAILURE FOR HEART FAILURE August 07, 2022 90 August 08, 2023 [id number] August 07, 2022 AFRICA CHAUHAN [facility] ORAL DISCONT INUED 08/08/2023 [id number] AFRICA CHAUHAN 2022 90 [place] [facility] HYDROCHLORO THIAZIDE 12.5MG TAB HYDROCHL OROTHIAZ LAURA 12.5MG TAB Disconti nued TAKE ONE TABLET BY MOUTH EVERY DAY FOR BLOOD PRESSURE FOR BLOOD PRESSURE August 07, 2022 90 August 08, 2023 [id number] August 07, 2022 [facility]AN [facility] ORAL DISCONT INUED 08/08/2023 [id number] AFRICA CHAUHAN 2022 90 [place] [facility] METOPROLOL SUCCINATE 50MG TAB,SA METOPROL OL SUCCINAT E 50MG TAB,SA Disconti nued TAKE THREE TABLETS BY MOUTH EVERY DAY FOR BLOOD PRESSURE FOR BLOOD PRESSURE August 07, 2022 270 August 08, 2023 [id number] Sep 23, 2022 [facility]ICA [facility]AN [facility] DISCONT INUED 08/08/2023 [id number] AFRICA CHAUHAN 2022 270 [facility] METOPROLOL TARTRATE 100MG TAB METOPROL OL TARTRATE 100MG TAB Active TAKE ONE TABLET BY MOUTH TWICE A DAY FOR BLOOD PRESSURE FOR BLOOD PRESSURE Dec 12, 2022 180 Dec 13, 2023 [id number] Sep 24, 2023 AFRICA CHAUHAN [facility] ORAL ACTIVE 12/13/2023 [id number] AFRICA CHAUHAN 2022 180 [facility] NIFEDIPINE (EQV-CC) 60MG TAB,SA NIFEDIPI NE (EQV-CC) 60MG TAB,SA Disconti nued TAKE ONE TABLET BY MOUTH EVERY DAY FOR BLOOD PRESSURE FOR BLOOD PRESSURE August 07, 2022 90 August 08, 2023 [id number] Feb 20, 2023 AFRICA CHAUHAN [facility] ORAL DISCONT INUED BY PROVIDE R 08/08/2023 [id number] AFRICA CHAUHAN 2022 90 [place] [facility] NIFEDIPINE (EQV-CC) 60MG TAB,SA NIFEDIPI NE (EQV-CC) 60MG TAB,SA Disconti nued TAKE ONE TABLET BY MOUTH EVERY DAY FOR BLOOD PRESSURE FOR BLOOD PRESSURE Jun 13, 2022 90 Sep 11, 2022 [id number] August 19, 2022 AFRICA CHAUHAN [facility] ORAL DISCONT INUED 09/11/2022 [id number] 3 AFRICA CHAUHAN 2022 90 [facility] NIFEDIPINE (EQV-CC) 90MG TAB,SA NIFEDIPI NE (EQV-CC) 90MG TAB,SA Active TAKE ONE TABLET BY MOUTH EVERY DAY FOR BLOOD PRESSURE FOR BLOOD PRESSURE Jul 17, 2023 90 Jul 17, 2024 [id number] Sep 19, 2023 AFRICA CHAUHAN [facility] ORAL ACTIVE 07/17/2024 [id number] AFRICA CHAUHAN 2023 90 [facility] NIFEDIPINE (EQV-CC) 90MG TAB,SA NIFEDIPI NE (EQV-CC) 90MG TAB,SA Disconti nued TAKE ONE TABLET BY MOUTH EVERY DAY FOR BLOOD PRESSURE INCREASE D DOSE PER CO-MANAG ED CARE INCREASE D DOSE PER CO-MANAG ED CARE FOR BLOOD PRESSURE Dec 12, 2022 90 Dec 13, 2023 [id number] Jul 01, 2023 AFRICA CHAUHAN [facility] ORAL DISCONT INUED 12/13/2023 [id number] AFRICA CHAUHAN 2022 90 [facility] POTASSIUM CHLORIDE 10MEQ TAB,SA POTASSIU M CHLORIDE 10MEQ TAB,SA Active TAKE ONE TABLET BY MOUTH THREE TIMES A WEEK FOR POTASSIU M SUPPLEME NT TAKE WITH FUROSEMI DE FOR POTASSIU M SUPPLEME NT Feb 24, 2023 39 Feb 25, 2024 [id number] Feb 28, 2023 [facility] 02/25/2024 [id number] Hong DONAHUE MUNIRAJALYN Parra 2022 39 [facility] POTASSIUM CHLORIDE 10MEQ TAB,SA POTASSIU M CHLORIDE 10MEQ TAB,SA Disconti nued TAKE ONE TABLET BY MOUTH EVERY OTHER DAY FOR POTASSIU M SUPPLEME NT FOR POTASSIU M SUPPLEME NT August 12, 2022 45 August 13, 2023 [id number] Nov 08, 2022 AFRICA CHAUHAN [facility] ORAL DISCONT INUED (EDIT) 08/13/2023 [id number] AFRICA CHAUHAN 2022 45 [facility] POTASSIUM CHLORIDE 10MEQ TAB,SA POTASSIU M CHLORIDE 10MEQ TAB,SA Disconti nued TAKE ONE TABLET BY MOUTH EVERY DAY FOR CONGESTI VE HEART FAILURE FOR POTASSIU M SUPPLEME NT August 07, 2022 90 August 08, 2023 [id number] August 07, 2022 AFRICA CHAUHAN [facility] ORAL DISCONT INUED 08/08/2023 [id number] AFRICA CHAUHAN 2022 90 [facility] POTASSIUM CHLORIDE 10MEQ TAB,SA POTASSIU M CHLORIDE 10MEQ TAB,SA Disconti nued TAKE ONE TABLET BY MOUTH EVERY DAY FOR CONGESTI VE HEART FAILURE Nov 15, 2021 90 Nov 16, 2022 [id number] August 15, 2022 AFRICA CHAUHAN [facility] ORAL DISCONT INUED 11/16/2022 [id number] AFRICA CHAUHAN 2021 90 [facility] ROSUVASTATI N CA 20MG TAB ROSUVAST ATIN CA 20MG TAB Active TAKE ONE TABLET BY MOUTH AT BEDTIME FOR CORONARY ARTERY DISEASE FOR CORONARY ARTERY DISEASE Jul 17, 2023 90 Jul 17, 2024 [id number] Sep 24, 2023 AFRICA CHAUHAN [facility] ORAL ACTIVE 07/17/2024 [id number] AFRICA CHAUHAN 2023 90 [facility] ROSUVASTATI N CA 20MG TAB ROSUVAST ATIN CA 20MG TAB Disconti nued TAKE ONE TABLET BY MOUTH AT BEDTIME FOR CORONARY ARTERY DISEASE FOR CORONARY ARTERY DISEASE August 07, 2022 90 August 08, 2023 [id number] Jun 09, 2023 AFRICA CHAUHAN [facility] ORAL DISCONT INUED 08/08/2023 [id number] AFRICA CHAUHAN 2022 90 [facility] TAMSULOSIN HCL 0.4MG CAP TAMSULOS IN HCL 0.4MG CAP Active TAKE ONE CAPSULE BY MOUTH EVERY EVENING FOR PROSTATE FOR PROSTATE Jul 17, 2023Jul 17, 2024 [id number] Oct 05, 2023 AFRICA CHAUHAN [facility] ORAL ACTIVE 07/17/2024 [id number] 4 AFRICA CHAUHAN 2023 30 [facility] Allergies, Adverse Reactions, Alerts Combined list of allergies from Department of Defense and Veterans Affairs facilities. It does not include entries that were removed or entered in error. Substance Category Reaction Severity Reaction type Status Date Reported Comments Source LISINOPRIL Propensity to adverse reactions to drug (finding) Cough active 0 [facility] Immunizations Combined list of available immunizations from the Department of Defense and Veterans Affairs facilities. Immunization Series Date Given Administered By Site Reaction Lot Number CVX Code Drug Can Washer Status Comments Source COVID-19 ([employer]), MRNA, LNP-S, BIVALENT, PF, 30 MCG/0.3 ML DOSE 2022 300 complet ed [facility] COVID-19 ([employer]), MRNA, LNP-S, PF, 30 MCG/0.3 ML DOSE, JAMES-SUCROSE (AGES 12+ YEARS) 2021 217 complet ed [facility] COVID-19 ([employer]), MRNA, LNP-S, PF, 30 MCG/0.3 ML DOSE 2020 208 complet ed [facility] ZOSTER RECOMBINANT 2 2020 187 complet ed [facility] INFLUENZA VACCINE, QUADRIVALENT, ADJUVANTED 2020 205 complet ed [facility] INFLUENZA, UNSPECIFIED FORMULATION 2020 88 complet ed [facility] ZOSTER RECOMBINANT [address] [facility] COVID-19 (PFIZER), MRNA, LNP-S, PF, 30 [...] PPV23 2016 33 complet ed [employer] , [id number], 06/03/18 [facility] TD (ADULT), 2 [...] Reporting Lab: [facility] [address] Performing Lab: [facility] [address] [facility] URINALYS IS SPECIFIC GRAVITY OF URINE 1.006 1.003 - 1.035 07/16 Specimen Type: URINE No comment entered. Ordering Provider: TERRENCE CHAUHAN Report Released Date/Time: Jul 17, 2023 04:23 PM Reporting Lab: [facility] [address] Performing Lab: [facility] [address] [facility] URINALYS IS BILIRUBIN. TOTAL [PRESENCE] IN URINE BY TEST STRIP NEGATIVE 07/16 Specimen Type: URINE No comment entered. Ordering Provider: TERRENCE CHAUHAN Report Released Date/Time: Jul 17, 2023 04:23 PM Reporting Lab: [facility] [address] Performing Lab: [facility] [address] [facility] URINALYS IS KETONES [MASS/VOLU ME] IN URINE BY TEST STRIP NEGATIVE 07/16 Specimen Type: URINE No comment entered. Ordering Provider: TERRENCE CHAUHAN Report Released Date/Time: Jul 17, 2023 04:23 PM Reporting Lab: [facility] [address] Performing Lab: [facility] [address] [place] [facility] URINALYS IS GLUCOSE [MASS/VOLU ME] IN URINE BY TEST STRIP NEGATIVE mg/dL 07/16 Specimen Type: URINE No comment entered. Ordering Provider: TERRENCE CHAUHAN Report Released Date/Time: Jul 17, 2023 04:23 PM Reporting Lab: [facility] [address] Performing Lab: [facility] [address] [place] [facility] URINALYS IS PROTEIN [MASS/VOLU ME] IN URINE BY TEST STRIP NEGATIVE mg/dL 07/16 Specimen Type: URINE No comment entered. Ordering Provider: TERRENCE CHAUHAN Report Released Date/Time: Jul 17, 2023 04:23 PM Reporting Lab: [facility] [address] Performing Lab: [facility] [address] [place] [facility] URINALYS IS PH OF URINE BY TEST STRIP 7.0 5.0 - 8.0 07/16 Specimen Type: URINE No comment entered. Ordering Provider: TERRENCE CHAUHAN Report Released Date/Time: Jul 17, 2023 04:23 PM Reporting Lab: [facility] [address] Performing Lab: [facility] [address] [facility] URINALYS IS LEUKOCYTES [#/AREA] IN URINE SEDIMENT BY MICROSCOPY HIGH POWER FIELD <1/[HPF] 0 - 7 07/16 Specimen Type: URINE No comment entered. Ordering Provider: TERRENCE CHAUHAN Report Released Date/Time: Jul 17, 2023 04:23 PM Reporting Lab: [facility] [address] Performing Lab: [facility] [address] [place] [facility] URINALYS IS BACTERIA [PRESENCE] IN URINE SEDIMENT BY LIGHT MICROSCOPY NONE SEEN 07/16 Specimen Type: URINE No comment entered. Ordering Provider: TERRENCE CHAUHAN Report Released Date/Time: Jul 17, 2023 04:23 PM Reporting Lab: [facility] [address] Performing Lab: [facility] [address] [place] [facility] URINALYS IS ERYTHROCYT ES [#/AREA] IN URINE SEDIMENT BY MICROSCOPY HIGH POWER FIELD <1/[HPF] 0 - 3 07/16 Specimen Type: URINE No comment entered. Ordering Provider: TERRENCE CHAUHAN Report Released Date/Time: Jul 17, 2023 04:23 PM Reporting Lab: [facility] [address] Performing Lab: [facility] [address] [place] [facility] URINALYS IS APPEARANCE OF URINE CLEAR 07/16 Specimen Type: URINE No comment entered. Ordering Provider: TERRENCE CHAUHAN Report Released Date/Time: Jul 17, 2023 04:23 PM Reporting Lab: [facility] [address] Performing Lab: [facility] [address] [place] [facility] URINALYS IS EPITHELIAL CELLS.SQUA MOUS [#/AREA] IN URINE SEDIMENT BY MICROSCOPY HIGH POWER FIELD NONE SEEN/[HP F] 07/16 Specimen Type: URINE No comment entered. Ordering Provider: TERRENCE CHAUHAN Report Released Date/Time: Jul 17, 2023 04:23 PM Reporting Lab: [facility] [address] Performing Lab: [facility] [address] [place] [facility] URINALYS IS HEMOGLOBIN [PRESENCE] IN URINE BY TEST STRIP NEGATIVE 07/16 Specimen Type: URINE No comment entered. Ordering Provider: TERRENCE CHAUHAN Report Released Date/Time: Jul 17, 2023 04:23 PM Reporting Lab: [facility] [address] Performing Lab: [facility] [address] [place] [facility] URINALYS IS NITRITE [PRESENCE] IN URINE BY TEST STRIP NEGATIVE 07/16 Specimen Type: URINE No comment entered. Ordering Provider: TERRENCE CHAUHAN Report Released Date/Time: Jul 17, 2023 04:23 PM Reporting Lab: [facility] [address] Performing Lab: [facility] [address] [place] [facility] URINALYS IS LEUKOCYTE ESTERASE [PRESENCE] IN URINE BY TEST STRIP NEGATIVE 07/16 Specimen Type: URINE No comment entered. Ordering Provider: TERRENCE CHAUHAN Report Released Date/Time: Jul 17, 2023 04:23 PM Reporting Lab: [facility] [address] Performing Lab: [facility] [address] [place] [facility] HEMOGLOB IN [...] Reporting Lab: [facility] [address] Performing Lab: [facility] [address] [place] [facility] BASIC METABOLI C PANEL+MG CREATININE [MASS/VOLU ME] IN SERUM OR PLASMA 1.3 mg/dL 0.7 - 1.2 07/16 H Specimen Type: PLASMA No comment entered. Ordering Provider: TERRENCE CHAUHAN Report Released Date/Time: August 07, 2022 02:21 PM Reporting Lab: [facility] [address] Performing Lab: [facility] [address] [place] [facility] BASIC METABOLI C PANEL+MG UREA NITROGEN [MASS/VOLU ME] IN SERUM OR PLASMA 15 mg/dL 8 - 26 07/16 Specimen Type: PLASMA No comment entered. Ordering Provider: TERRENCE CHAUHAN Report Released Date/Time: August 07, 2022 02:21 PM Reporting Lab: [facility] [address] Performing Lab: [facility] [address] [place] [facility] BASIC METABOLI C PANEL+MG GLUCOSE [MASS/VOLU ME] IN SERUM OR PLASMA 84 mg/dL 70 - 100 07/16 Specimen Type: PLASMA No comment entered. Ordering Provider: TERRENCE CHAUHAN Report Released Date/Time: August 07, 2022 02:21 PM Reporting Lab: [facility] [address] Performing Lab: [facility] [address] [place] [facility] BASIC METABOLI C PANEL+MG SODIUM [MOLES/VOL UME] IN SERUM OR PLASMA 137 mmol/L 136 - 145 07/16 Specimen Type: PLASMA No comment entered. Ordering Provider: TERRENCE CHAUHAN Report Released Date/Time: August 07, 2022 02:21 PM Reporting Lab: [facility] [address] Performing Lab: [facility] [address] [place] [facility] BASIC METABOLI C PANEL+MG POTASSIUM [MOLES/VOL UME] IN SERUM OR PLASMA 4.6 mmol/L 3.5 - 5.1 07/16 Specimen Type: PLASMA No comment entered. Ordering Provider: TERRENCE CHAUHAN Report Released Date/Time: August 07, 2022 02:21 PM Reporting Lab: [facility] [address] Performing Lab: [facility] [address] [place] [facility] BASIC METABOLI C PANEL+MG CHLORIDE [MOLES/VOL UME] IN SERUM OR PLASMA 105 mmol/L 98 - 107 07/16 Specimen Type: PLASMA No comment entered. Ordering Provider: TERRENCE CHAUHAN Report Released Date/Time: August 07, 2022 02:21 PM Reporting Lab: [facility] [address] Performing Lab: [facility] [address] [place] [facility] BASIC METABOLI C PANEL+MG CARBON DIOXIDE, TOTAL [MOLES/VOL UME] IN SERUM OR PLASMA 24 mmol/L 22 - 29 07/16 Specimen Type: PLASMA No comment entered. Ordering Provider: TERRENCE CHAUHAN Report Released Date/Time: August 07, 2022 02:21 PM Reporting Lab: [facility] [address] Performing Lab: [facility] [address] [place] [facility] BASIC METABOLI C PANEL+MG CALCIUM [MASS/VOLU ME] IN SERUM OR PLASMA 8.9 mg/dL 8.4 - 10.2 07/16 Specimen Type: PLASMA No comment entered. Ordering Provider: TERRENCE CHAUHAN Report Released Date/Time: August 07, 2022 02:21 PM Reporting Lab: [facility] [address] Performing Lab: [facility] [address] [place] [facility] BASIC METABOLI C PANEL+MG MAGNESIUM [MASS/VOLU ME] IN SERUM OR PLASMA 2.1 mg/dL 1.6 - 2.6 07/16 Specimen Type: PLASMA No comment entered. Ordering Provider: TERRENCE CHAUHAN Report Released Date/Time: August 07, 2022 02:21 PM Reporting Lab: [facility] [address] Performing Lab: [facility] [address] [place] [facility] BASIC METABOLI C PANEL+MG ANION GAP IN SERUM OR PLASMA 8 mmol/L 5 - 15 07/16 Specimen Type: PLASMA No comment entered. Ordering Provider: TERRENCE CHAUHAN Report Released Date/Time: August 07, 2022 02:21 PM Reporting Lab: [facility] [address] Performing Lab: [facility] [address] [place] [facility] BASIC METABOLI C PANEL+MG GLOMERULAR FILTRATION RATE/1.73 SQ M.PREDICTE D [VOLUME RATE/AREA] IN SERUM, PLASMA OR BLOOD BY CREATININE -BASED FORMULA (CKD-EPI 2020) 56 60 07/16 L Specimen Type: PLASMA No comment entered. Ordering Provider: TERRENCE CHAUHAN Report Released Date/Time: August 07, 2022 02:21 PM Reporting Lab: [facility] [id number] Performing Lab: [facility] [address] [facility] CBC LEUKOCYTES [#/VOLUME] IN BLOOD BY AUTOMATED COUNT 8.72 10*3/uL 4.0 - 11.0 07/16 Specimen Type: BLOOD No comment entered. Ordering Provider: TERRENCE CHAUHAN Report Released Date/Time: August 07, 2022 02:21 PM Reporting Lab: [facility] [phone] Performing Lab: [facility] [address] [facility] CBC ERYTHROCYT ES [#/VOLUME] IN BLOOD BY AUTOMATED COUNT 4.11 10*6/uL 4.6 - 6.2 07/16 L Specimen Type: BLOOD No comment entered. Ordering Provider: TERRENCE CHAUHAN Report Released Date/Time: August 07, 2022 02:21 PM Reporting Lab: [facility] [phone] Performing Lab: [facility] [address] [facility] CBC HEMOGLOBIN [MASS/VOLU ME] IN BLOOD 13.4 g/dL 13.5 - 17.9 07/16 L Specimen Type: BLOOD No comment entered. Ordering Provider: TERRENCE CHAUHAN Report Released Date/Time: August 07, 2022 02:21 PM Reporting Lab: [facility] [phone] Performing Lab: [facility] [address] [facility] CBC HEMATOCRIT [VOLUME FRACTION] OF BLOOD BY AUTOMATED COUNT 39.7 41 - 54 07/16 L Specimen Type: BLOOD No comment entered. Ordering Provider: TERRENCE CHAUHAN Report Released Date/Time: August 07, 2022 02:21 PM Reporting Lab: [facility] [address] Performing Lab: [facility] [address] [place] [facility] CBC MCV [ENTITIC VOLUME] BY AUTOMATED COUNT 96.6 fL 80 - 100 07/16 Specimen Type: BLOOD No comment entered. Ordering Provider: TERRENCE CHAUHAN Report Released Date/Time: August 07, 2022 02:21 PM Reporting Lab: [facility] [address] Performing Lab: [facility] [address] [place] [facility] CBC MCH [ENTITIC MASS] BY AUTOMATED COUNT 32.6 pg 27 - 33 07/16 Specimen Type: BLOOD No comment entered. Ordering Provider: TERRENCE CHAUHAN Report Released Date/Time: August 07, 2022 02:21 PM Reporting Lab: [facility] [address] Performing Lab: [facility] [address] [place] [facility] CBC MCHC [MASS/VOLU ME] BY AUTOMATED COUNT 33.8 g/dL 32.0 - 37.5 07/16 Specimen Type: BLOOD No comment entered. Ordering Provider: TERRENCE CHAUHAN Report Released Date/Time: August 07, 2022 02:21 PM Reporting Lab: [facility] [address] Performing Lab: [facility] [address] [place] [facility] CBC PLATELETS [#/VOLUME] IN BLOOD BY AUTOMATED COUNT 159 10*3/uL 150 - 400 07/16 Specimen Type: BLOOD No comment entered. Ordering Provider: TERRENCE CHAUHAN Report Released Date/Time: August 07, 2022 02:21 PM Reporting Lab: [facility] [address] Performing Lab: [facility] [address] [place] [facility] CBC PLATELET MEAN VOLUME [ENTITIC VOLUME] IN BLOOD BY AUTOMATED COUNT 9.6 fL 7.4 - 10.4 07/16 Specimen Type: BLOOD No comment entered. Ordering Provider: TERRENCE CHAUHAN Report Released Date/Time: August 07, 2022 02:21 PM Reporting Lab: [facility] [address] Performing Lab: [facility] [address] [place] [facility] CBC ERYTHROCYT E DISTRIBUTI ON WIDTH [RATIO] BY AUTOMATED COUNT 14.1 11.5 - 14.5 07/16 Specimen Type: BLOOD No comment entered. Ordering Provider: TERRENCE CHAUHAN Report Released Date/Time: August 07, 2022 02:21 PM Reporting Lab: [facility] [address] Performing Lab: [facility] [address] [place] [facility] LIVER FUNCTION TESTS BILIRUBIN. TOTAL [MASS/VOLU ME] IN SERUM OR PLASMA 0.8 mg/dL 0.2 - 1.2 07/16 Specimen Type: PLASMA No comment entered. Ordering Provider: TERRENCE CHAUHAN Report Released Date/Time: August 07, 2022 02:21 PM Reporting Lab: [facility] [address] Performing Lab: [facility] [address] [place] [facility] LIVER FUNCTION TESTS ALKALINE PHOSPHATAS E [ENZYMATIC ACTIVITY/V OLUME] IN SERUM OR PLASMA 52 U/L 40 - 150 07/16 Specimen Type: PLASMA No comment entered. Ordering Provider: TERRENCE CHAUHAN Report Released Date/Time: August 07, 2022 02:21 PM Reporting Lab: [facility] [address] Performing Lab: [facility] [address] [place] [facility] LIVER FUNCTION TESTS ALANINE AMINOTRANS FERASE [ENZYMATIC ACTIVITY/V OLUME] IN SERUM OR PLASMA 20 U/L <55 - 55 07/16 Specimen Type: PLASMA No comment entered. Ordering Provider: TERRENCE CHAUHAN Report Released Date/Time: August 07, 2022 02:21 PM Reporting Lab: [facility] [address] Performing Lab: [facility] [address] [place] [facility] LIVER FUNCTION TESTS ASPARTATE AMINOTRANS FERASE [ENZYMATIC ACTIVITY/V OLUME] IN SERUM OR PLASMA 19 U/L <34 - 34 07/16 Specimen Type: PLASMA No comment entered. Ordering Provider: TERRENCE CHAUHAN Report Released Date/Time: August 07, 2022 02:21 PM Reporting Lab: [facility] [address] Performing Lab: [facility] [address] [place] [facility] LIVER FUNCTION TESTS GAMMA GLUTAMYL TRANSFERAS E [ENZYMATIC ACTIVITY/V OLUME] IN SERUM OR PLASMA 38 U/L <64 - 64 07/16 Specimen Type: PLASMA No comment entered. Ordering Provider: TERRENCE CHAUHAN Report Released Date/Time: August 07, 2022 02:21 PM Reporting Lab: [place] [id number] Performing Lab: [place] [address] [place] [facility] PSA PROSTATE SPECIFIC AG [MASS/VOLU ME] IN SERUM OR PLASMA 3.84 ng/mL <4.00 - 4.00 07/16 Specimen Type: SERUM No comment entered. Ordering Provider: TERRENCE CHAUHAN Report Released Date/Time: August 07, 2022 02:21 PM Reporting Lab: [place] [address] Performing Lab: [place] [address] [place] [facility] CREATINI NE(INCLU SATHYA EGFR) CREATININE [MASS/VOLU ME] IN SERUM OR PLASMA 1.2 mg/dL 0.7 - 1.2 04/16 Specimen Type: PLASMA No comment entered. Ordering Provider: HUYEN HYLTON Report Released Date/Time: Mar 07, 2023 02:00 PM Reporting Lab: [place] [address] Performing Lab: [place] [address] [place] [facility] CREATINI NE(INCLU SATHYA EGFR) GLOMERULAR FILTRATION RATE/1.73 SQ M.PREDICTE D [VOLUME RATE/AREA] IN SERUM, PLASMA OR BLOOD BY CREATININE -BASED FORMULA (CKD-EPI 2020) 62 60 04/16 Specimen Type: PLASMA No comment entered. Ordering Provider: HUYEN HYLTON Report Released Date/Time: Mar 07, 2023 02:00 PM Reporting Lab: [address] Performing Lab: [address] [facility] CBC LEUKOCYTES [#/VOLUME] IN BLOOD BY AUTOMATED COUNT 8.06 10*3/uL 4.0 - 11.0 04/16 Specimen Type: BLOOD No comment entered. Ordering Provider: HUYEN HYLTON Report Released Date/Time: Mar 07, 2023 02:00 PM Reporting Lab: [place] [address] Performing Lab: [place] [address] [place] [facility] CBC ERYTHROCYT ES [#/VOLUME] IN BLOOD BY AUTOMATED COUNT 4.03 10*6/uL 4.6 - 6.2 04/16 L Specimen Type: BLOOD No comment entered. Ordering Provider: HUYEN HYLTON Report Released Date/Time: Mar 07, 2023 02:00 PM Reporting Lab: [place] [address] Performing Lab: [place] [address] [place] [facility] CBC HEMOGLOBIN [MASS/VOLU ME] IN BLOOD 13.1 g/dL 13.5 - 17.9 04/16 L Specimen Type: BLOOD No comment entered. Ordering Provider: HUYEN HYLTNO Report Released Date/Time: Mar 07, 2023 02:00 PM Reporting Lab: [place] [address] Performing Lab: [place] [address] [place] [facility] CBC HEMATOCRIT [VOLUME FRACTION] OF BLOOD BY AUTOMATED COUNT 38.9 41 - 54 04/16 L Specimen Type: BLOOD No comment entered. Ordering Provider: HUYEN HYLTON Report Released Date/Time: Mar 07, 2023 02:00 PM Reporting Lab: [place] [address] Performing Lab: [place] [address] [facility] CBC MCV [ENTITIC VOLUME] BY AUTOMATED COUNT 96.5 fL 80 - 100 04/16 Specimen Type: BLOOD No comment entered. Ordering Provider: HUYEN HYLTON Report Released Date/Time: Mar 07, 2023 02:00 PM Reporting Lab: [place] [address] Performing Lab: [place] [address] [place] [facility] CBC MCH [ENTITIC MASS] BY AUTOMATED COUNT 32.5 pg 27 - 33 04/16 Specimen Type: BLOOD No comment entered. Ordering Provider: HUYEN HYLTON Report Released Date/Time: Mar 07, 2023 02:00 PM Reporting Lab: [facility] [address] Performing Lab: [facility] [address] [place] [facility] CBC MCHC [MASS/VOLU ME] BY AUTOMATED COUNT 33.7 g/dL 32.0 - 37.5 04/16 Specimen Type: BLOOD No comment entered. Ordering Provider: HUYEN HYLTON Report Released Date/Time: Mar 07, 2023 02:00 PM Reporting Lab: [facility] [address] Performing Lab: [facility] [address] [place] [facility] CBC PLATELETS [#/VOLUME] IN BLOOD BY AUTOMATED COUNT 157 10*3/uL 150 - 400 04/16 Specimen Type: BLOOD No comment entered. Ordering Provider: HUYEN HYLTON Report Released Date/Time: Mar 07, 2023 02:00 PM Reporting Lab: [facility] [address] Performing Lab: [facility] [address] [facility] CBC PLATELET MEAN VOLUME [ENTITIC VOLUME] IN BLOOD BY AUTOMATED COUNT 9.7 fL 7.4 - 10.4 04/16 Specimen Type: BLOOD No comment entered. Ordering Provider: HUYEN HYLTON Report Released Date/Time: Mar 07, 2023 02:00 PM Reporting Lab: [facility] [address] Performing Lab: [facility] [address] [facility] CBC ERYTHROCYT E DISTRIBUTI ON WIDTH [RATIO] BY AUTOMATED COUNT 14.5 11.5 - 14.5 04/16 Specimen Type: BLOOD No comment entered. Ordering Provider: HUYEN HYLTON Report Released Date/Time: Mar 07, 2023 02:00 PM Reporting Lab: [facility] [address] Performing Lab: [facility] [address] [place] [facility] AST/SGOT ASPARTATE AMINOTRANS FERASE [ENZYMATIC ACTIVITY/V OLUME] IN SERUM OR PLASMA 22 U/L <34 - 34 04/16 Specimen Type: PLASMA No comment entered. Ordering Provider: HUYEN HYLTON Report Released Date/Time: Mar 07, 2023 02:00 PM Reporting Lab: [facility] [address] Performing Lab: [facility] [address] [place] [facility] ALT/SGPT ALANINE AMINOTRANS FERASE [ENZYMATIC ACTIVITY/V OLUME] IN SERUM OR PLASMA 19 U/L <55 - 55 04/16 Specimen Type: PLASMA No comment entered. Ordering Provider: HUYEN HYLTON Report Released Date/Time: Mar 07, 2023 02:00 PM Reporting Lab: [facility] [address] Performing Lab: [facility] [address] [place] [facility] Vital Signs [...] ADM Date DC Date Status Disposition Source [facility] DEPT VISIT SF MDM [id number] Diagnos is: ICD-10- CM Z76.0 Encount er for issue of repeat prescri ption<b r/> AICHA GALLEGOS 05/09 [facility] Outpatient Encounter [id number] 05/09 [facility] [place] [facility] Outpatient Encounter [id number] 06/12 [place] [facility] [place] [facility] Outpatient Encounter [id number] 07/15 [place] [facility] [place] [facility] OFFICE O/P EST MOD 30-39 MIN [id number] Diagnos is: ICD-10- CM Z00.01 Encount er for general adult medical exam w abnorma l finding s
DEDANETTE VALDEZ LY E 08/07 [place] [facility] [place] [facility] Outpatient Encounter [id number] 08/07 [place] [facility] [place] [facility] Outpatient Encounter [id number] JUSTIN ROGERSHong GLORIA M 08/12 [place] [facility] [place] [facility] Outpatient Encounter [id number] KENOLESYA GLORIA M 08/12 [place] [facility] [place] [facility] Outpatient Encounter [id number] Ana CHAUHAN 09/12 [place] [facility] [place] [facility] Outpatient Encounter [id number] 11/06 [place] [facility] [place] [facility] Outpatient Encounter [id number] 12/08 [place] [facility] [place] [facility] Outpatient Encounter [id number] 12/12 [place] [facility] [place] [facility] Outpatient Encounter [id number] 01/17 [place] [facility] [place] [facility] Outpatient Encounter [id number] 02/19 [place] [facility] [place] [facility] Outpatient Encounter [id number] 02/24 [place] [facility] [place] [facility] Outpatient Encounter [id number] 03/07 [place] [facility] [place] [facility] QNHP OL DIG ASSMT&MGMT 5-10 [id number] Diagnos is: ICD-10- CM Z79.01 jail (curren t) use of anticoa gulants
ELLEN GARCIA 05/29 [place] [facility] [place] [facility] OFFICE O/P EST MOD 30 MIN [id number] Diagnos is: ICD-10- CM Z00.01 Encount er for general adult medical exam w abnorma l finding s
Ana CHAUHAN 07/16 [facility] Outpatient Encounter [id number] 07/17 [facility] Social History Combined list of available smoking, tobacco, and other social history from [facility] of Defense and [facility] facilities. Social History Type Response Date Comment Sour e Tobacco smoking status W[facility]IS HI-TOBACCO FORMER USER 07/17/2023 [facility] of [facility]20[facility] History of tobacco use HI-TOBACCO FORMER USER 08/07/2022 [facility] History of tobacco use HI-TOBACCO FORMER USER 10/16/2020 [facility] of [facility] UN[facility] 03/29/2019 [facility] History of tobacco use HI-TOBACCO USE WI 30 MIN OF WAKEUP 02/17/2018 [facility] History of tobacco use CURRENT TOBACCO USER 02/12/2017 [facility] History of tobacco use CURRENT TOBACCO USER 04/25/2015 [facility] History of tobacco use CURRENT TOBACCO USER 04/21/2014 [facility] History of tobacco use CURRENT TOBACCO USER 04/20/2013 [facility] History of tobacco use CURRENT TOBACCO USER 03/20/2012 [facility] History of tobacco use CURRENT TOBACCO USER 02/06/2011 [facility] History of tobacco use CURRENT TOBACCO USER 01/02/2010 [facility]
== END 2023-11-03 10:24 | disposition home or self-care (01) ==
LOC: WOUND 10:23
PROVIDERS: Visit Provider Family Medicine
DX: S61.211A Laceration without foreign body of left index finger without damage to nail, initial encounter (principal); L72.0 Epidermal cyst
CPT/HCPCS: 11042

== ENCOUNTER 2023-11-17 10:48 | Outpatient (CLI) | payer MEDICARE, BC, SELFPAY ==
--- OUTSIDE RECORDS SUMMARY | 2023-11-17 10:49 | XMS_ITS | Clinical Summary ---
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 LLE angiogram 2. ALUM MIXER of [place] peroneal Panlobular emphysema 10/21/2018 COPD exacerbation 09/09/2018 [...] Department Care Team Description 10/29/2023 Nurse Triage [facility] [address] [place] [address] Klever Monte MD Bite from Last 3 Months Immunizations Name Administration [...] T Respiratory Rate 18 03/17/2023 3:35 PM [employer]PERATOR Oxygen Saturation 96% 08/04/2023 8:35 AM CDT Inhaled Oxygen Concentration - - Weight 90.7 kg (200 lb) 08/04/2023 8:35 AM CDT Height 190.5 cm (6' 3) 03/17/2023 2:07 PM [employer] PR[employer] OPERATOR Body Mass Index 25 03/17/2023 2:07 PM [employer] PRESS OPERATOR Plan of Treatment Health Maintenance Due Date [...] Procedure Name Priority Date/Time Associated Diagnosis Comments ANTI HCV Routine 05/16/2021 3:20 PM [employer] PR[employer] OPERATOR Need for hepatitis C screening test CT CHEST WO Routine 08/29/2010 4:53 PM CDT Pulmonary nodules from Last 3 Months or Most Recently Relevant to Health Maintenance Results * ANTI HCV (05/16/2021 3:20 PM ARBOR PRESS OPERATOR) HEPATITIS C ANTIBODY Non-React edelmira Non-React edelmira 05/17/2021 1:21 AM [facility] PRESS [facility]PER[facility] Comment:Antibodies to HCV no t detected; does not exclude the possibility of exposure to HCV. Blood BLOOD SPECIMEN / Unknown Venipuncture / Unknown 05/16/2021 3:20 PM ARBOR PRESS OPERATOR 05/16/2021 3:25 PM ARBOR PRESS OPERATOR Zak Garcia MD SEND OUTS [facility] [address] [place] [address], [place] * CT CHEST WO CONTRAST (08/29/2010 [...] Comments Code Status Discussion: Discussed Care Teams Kelp Cutter Relationship Specialty Start Date End Date Klever Monte MD [address] [place] [address] PCP - General Family Practice 06/12/22
--- OUTSIDE RECORDS SUMMARY | 2023-11-17 10:50 | XMS_ITS | Continuity of Care Document ---
Author Name [facility] Organization [facility] Care Team Providers Care Pulley Maintainer Name Role Phone [facility] Unavailable Unavailable Problems Combined list of problems from Department of Defense and Veterans Affairs facilities. It does not include entries that were removed or entered in error. Problem Status Onset Date Problem Type Date of Resolution Comments Source CVD - Cerebrovascular Disease ([facility] 74234314) Active 03/19/20 20 Condition May 01, 2020 Entered By: YOAV CHAUHAN Comment: 03/19/20: L MCA CVA, Admit ANW. Cardio-embol ic d/t Warfarin DC [facility] CAD - Coronary Artery Disease ([facility] [id number]) Active 01/27/20 20 Condition Mar 13, 2020 Entered By: YOAV CHAUHAN Comment: 01/27/20: LAD and Dx stented w/SATHYA at [facility]. Plavix +ASA thru 01/26/21 [facility] Peripheral arterial insufficiency Active 01/21/20 20 Condition Mar 13, 2020 Entered By: YOAV CHAUHAN Comment: 01/21/20: L femoral Art occlusion per [facility]-->Fem -Tibial bypass planned [facility] Allergic rhinitis (SNOMED CT 01250346) Active Condition [facility] Atrial fibrillation (SNOMED CT 79504701) Active Condition Apr 26, 2015 Entered By: YOAV CHAUHAN Comment: Warfarin through Miryam Rodriguez [facility] Co-Managed Care Active Condition Dec 25, 2017 Entered By: YOAV CHAUHAN Comment: Dr Garcia, Michael Moorhead, F: [phone] , [facility] COPD - Chronic Obstructive Pulmonary Disease ([facility] [id number]) Active Condition Dec 25, 2017 Entered By: YOAV CHAUHAN Comment: Mometasone & Albuterol MDI's [facility] Kosse of toe Active Condition Sep 08, 2019 Entered By: YOAV CHAUHAN Comment: R middle toe [facility] Current smoker Active Condition Apr 082015 Entered By: YOAV CHAUHAN Comment: Cigars, not cigarettes [facility] Essential hypertension (SNOMED CT 47147558) Active Condition [facility] Glucose intolerance Active Condition [facility] Nocturia due to benign prostatic hypertrophy Active Condition [facility] Health Maintenance (ICD-9-CM V65.9) Inactive Condition 04/26/2015 [facility] Diagnosis: ICD-10-CM Z00.01 Encounter for general adult medical exam w abnormal findings Active Diagnosis 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 APIXABAN 5MG TAB APIXABAN 5MG TAB Active TAKE ONE TABLET BY MOUTH EVERY 12 HOURS TO PREVENT BLOOD CLOTS AND STROKE (ELIQUIS ) May 29, 2023 180 May 29, 2024 [id number] C September 04, 2023 ZOFIA GARCIA [facility] ORAL ACTIVE 05/29/2024 [id number] 4 MARIANO GARCIA [address] [facility] APIXABAN 5MG TAB APIXABAN 5MG TAB Disconti nued TAKE ONE TABLET BY MOUTH EVERY 12 HOURS TO PREVENT BLOOD CLOTS AND STROKE (ELIQUIS ) May 08, 2022 180 May 09, 2023 [id number] B Mar 20, [address] [facility] ORAL DISCONT INUED 05/09/2023 [id number] MARIAN[facility]ARCIA 2022 180 [facility] CHOLECALCIF JONNA 25MCG (1,000UNIT) TAB CHOLECAL CIFEROL 25MCG (1,000UN IT) TAB Non-VA TAKE FIVE TABLETS BY MOUTH QOD Feb 12, 2017 Non-VA Document ed by: AFRICA CHAUHAN Document ed at: [facility] ORAL ACTIVE AFRICA CHAUHAN [address] [facility] FLUOCINONID E 0.1% CREAM,TOP FLUOCINO NIDE 0.1% CREAM,TO P Active APPLY A THIN LAYER TOPICALL Y TWICE A DAY NEEDED FOR RASH FOR RASH Dec 12, 2022 60 Dec 13, 2023 [id number] Dec 13, [address] [facility] TOPICA L ACTIVE 12/13/2023 [id number] AFRICA CHAUHAN [address] [facility] FLUTICASONE 250MCG/SALM ETEROL 50MCG INHL,ORAL,D ISKUS,60 FLUTICAS ONE 250MCG/S ALMETERO L 50MCG INHL,ORA L,DISKUS ,60 Active INHALE 1 PUFF BY INHALATI ON TWICE A DAY FOR COPD FOR COPD Jul 17, 2023 3 Jul 17, 2024 [id number] Oct 15, 2023 AFRICA CHAUHAN [facility] RESPIR ATORY (INHAL ATION) ACTIVE 07/17/2024 [id number] 4 AFRICA CHAUHAN 2023 3 [facility] FLUTICASONE 250MCG/SALM ETEROL 50MCG INHL,ORAL,D ISKUS,60 FLUTICAS ONE 250MCG/S ALMETERO L 50MCG INHL,ORA L,DISKUS ,60 Disconti nued INHALE 1 PUFF BY INHALATI ON TWICE A DAY FOR COPD THIS REPLACES YOUR MOMETASO NE FOR COPD August 07, 2022 3 August 08, 2023 [id number] Apr 24, 2023 [facility] RESPIR ATORY (INHAL ATION) DISCONT INUED 08/08/2023 [id number] 4 AFRICA CHAUHAN 2022 3 [place] [facility] FUROSEMIDE 20MG TAB FUROSEMI DE 20MG TAB Active TAKE ONE TABLET BY MOUTH THREE TIMES A WEEK FOR HEART FAILURE FOR HEART FAILURE Feb 24, 2023 39 Feb 25, 2024 [id number] Feb 28, 2023 SASHA DONAHUE [facility] ORAL ACTIVE 02/25/2024 [id number] Hong DONAHUE 2022 39 [facility] FUROSEMIDE 20MG TAB FUROSEMI DE 20MG TAB Disconti nued TAKE ONE TABLET BY MOUTH EVERY OTHER DAY FOR HEART FAILURE FOR HEART FAILURE August 12, 2022 45 August 13, 2023 [id number] Nov 08, 2022 [facility]AU[facility]AN [facility] ORAL DISCONT INUED (EDIT) 08/13/2023 [id number] AFRICA CHAUHAN 2022 45 [facility] METOPROLOL SUCCINATE 50MG TAB,SA METOPROL OL SUCCINAT E 50MG TAB,SA Disconti nued TAKE THREE TABLETS BY MOUTH EVERY DAY FOR BLOOD PRESSURE FOR BLOOD PRESSURE August 07, 2022 270 August 08, 2023 [id number] Sep 23, 2022 AFRICA CHAUHAN [facility] ORAL DISCONT INUED 08/08/2023 [id number] AFRICA CHAUHAN 2022 270 [facility] METOPROLOL TARTRATE 100MG TAB METOPROL OL TARTRATE 100MG TAB Active TAKE ONE TABLET BY MOUTH TWICE A DAY FOR BLOOD PRESSURE FOR BLOOD PRESSURE Dec 12, 2022 180 Dec 13, 2023 [id number] Sep 24, [address] [facility] ORAL ACTIVE 12/13/2023 [id number] AFRICA CHAUHAN 2022 180 [facility] NIFEDIPINE (EQV-CC) 60MG TAB,SA NIFEDIPI NE (EQV-CC) 60MG TAB,SA Disconti nued TAKE ONE TABLET BY MOUTH EVERY DAY FOR BLOOD PRESSURE FOR BLOOD PRESSURE August 07, 2022 90 August 08, 2023 [id number] Feb 20, [address] [facility] ORAL DISCONT INUED BY PROVIDE R 08/08/2023 [id number] AFRICA CHAUHAN [address] [facility] NIFEDIPINE (EQV-CC) 60MG TAB,SA NIFEDIPI NE (EQV-CC) 60MG TAB,SA Disconti nued TAKE ONE TABLET BY MOUTH EVERY DAY FOR BLOOD PRESSURE FOR BLOOD PRESSURE Jun 13, 2022 90 Sep 11, 2022 [id number] August 19, [address] [facility] ORAL DISCONT INUED 09/11/2022 [id number] AFRICA CHAUHAN [address] [facility] NIFEDIPINE (EQV-CC) 90MG TAB,SA NIFEDIPI NE (EQV-CC) 90MG TAB,SA Active TAKE ONE TABLET BY MOUTH EVERY DAY FOR BLOOD PRESSURE FOR BLOOD PRESSURE Jul 17, 2023 90 Jul 17, 2024 [id number] Sep 19, [address] [facility] ORAL ACTIVE 07/17/2024 [id number] 4 AFRICA CHAUHAN [address] [facility] NIFEDIPINE (EQV-CC) 90MG TAB,SA NIFEDIPI NE (EQV-CC) 90MG TAB,SA Disconti nued TAKE ONE TABLET BY MOUTH EVERY DAY FOR BLOOD PRESSURE INCREASE D DOSE PER CO-MANAG ED CARE INCREASE D DOSE PER CO-MANAG ED CARE FOR BLOOD PRESSURE Dec 12, 2022 90 Dec 13, 2023 [id number] Jul 01, [address] [facility] ORAL DISCONT INUED 12/13/2023 [id number] AFRICA CHAUHAN 2022 90 [place] [facility] POTASSIUM CHLORIDE 10MEQ TAB,SA POTASSIU M CHLORIDE 10MEQ TAB,SA Active TAKE ONE TABLET BY MOUTH THREE TIMES A WEEK FOR POTASSIU M SUPPLEME NT TAKE WITH FUROSEMI DE FOR POTASSIU M SUPPLEME NT Feb 24, 2023 39 Feb 25, 2024 [id number] Feb 28, 2023 SASHA DONAHUE [facility] ORAL ACTIVE 02/25/2024 [id number] Hong DONAHUE A 2022 39 [facility] POTASSIUM CHLORIDE 10MEQ TAB,SA POTASSIU M CHLORIDE 10MEQ TAB,SA Disconti nued TAKE ONE TABLET BY MOUTH EVERY OTHER DAY FOR POTASSIU M SUPPLEME NT FOR POTASSIU M SUPPLEME NT August 12, 2022 45 August 13, 2023 [id number] Nov 08, [address] [facility] ORAL DISCONT INUED (EDIT) 08/13/2023 [id number] AFRICA CHAUHAN 2022 45 [facility] ROSUVASTATI N CA 20MG TAB ROSUVAST ATIN CA 20MG TAB Active TAKE ONE TABLET BY MOUTH AT BEDTIME FOR CORONARY ARTERY DISEASE FOR CORONARY ARTERY DISEASE Jul 17, 2023 90 Jul 17, 2024 [id number] Sep 24, [address] [facility] ORAL ACTIVE 07/17/2024 [id number] AFRICA CHAUHAN 2023 90 [facility] ROSUVASTATI N CA 20MG TAB ROSUVAST ATIN CA 20MG TAB Disconti nued TAKE ONE TABLET BY MOUTH AT BEDTIME FOR CORONARY ARTERY DISEASE FOR CORONARY ARTERY DISEASE August 07, 2022 90 August 08, 2023 [id number] Jun 09, [address] [facility] ORAL DISCONT INUED 08/08/2023 [id number] AFRICA CHAUHAN 2022 90 [facility] TAMSULOSIN HCL 0.4MG CAP TAMSULOS IN HCL 0.4MG CAP Active TAKE ONE CAPSULE BY MOUTH EVERY EVENING FOR PROSTATE FOR PROSTATE Jul 17, 2023Jul 17, 2024 [id number] Nov 10, 2023 AFRICA CHAUHAN [facility] ORAL ACTIVE 07/17/2024 [id number] AFRICA CHAUHAN [address] [facility] Allergies, Adverse Reactions, Alerts Combined list of allergies from Department of Defense and Veterans Affairs facilities. It does not include entries that were removed or entered in error. Substance Category Reaction Severity Reaction type Status Date Reported Comments Source LISINOPRIL Propensity to adverse reactions to drug (finding) Cough active 0 [facility] Immunizations Combined list of available immunizations from the Department of [facility] and Veterans Affairs facilities. 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 COVID-19 ([employer]), MRNA, LNP-S, PF, 30 MCG/0.3 ML DOSE, JAMES-SUCROSE (AGES 12+ YEARS) [address] [facility] COVID-19 ([employer]), MRNA, LNP-S, PF, 30 MCG/0.3 ML DOSE [address] [facility] ZOSTER RECOMBINANT [address] [facility] INFLUENZA VACCINE, QUADRIVALENT, ADJUVANTED [address] [facility] INFLUENZA, UNSPECIFIED FORMULATION [address] [facility] ZOSTER RECOMBINANT [address] [facility] COVID-19 ([employer]), MRNA, LNP-S, PF, 30 MCG/0.3 ML DOSE 2 [address] [facility] COVID-19 ([employer]), MRNA, LNP-S, PF, 30 MCG/0.3 ML DOSE 1 [address] [facility] INFLUENZA VACCINE, QUADRIVALENT, ADJUVANTED [address] [facility] INFLUENZA, TRIVALENT, ADJUVANTED [address] [facility] INFLUENZA, SEASONAL, INJECTABLE [address] [facility] INFLUENZA, SEASONAL, INJECTABLE [address] [facility] INFLUENZA, TRIVALENT, ADJUVANTED [address] [facility] INFLUENZA, HIGH DOSE SEASONAL [address] [facility] PNEUMOCOCCAL POLYSACCHARID E PPV23 2016 33 complet ed [employer] , [id number], 06/03/18 [facility] TD (ADULT), 2 LF TETANUS TOXOID, PRESERVATIVE FREE, ADSORBED 2016 09 complet ed [employer] [id number], 12/19/18 [facility] INFLUENZA, HIGH DOSE SEASONAL [address] [facility] PNEUMOCOCCAL POLYSACCHARID E PPV23 [address] [facility] INFLUENZA, HIGH DOSE SEASONAL [address] [facility] PNEUMOCOCCAL CONJUGATE PCV 13 2015 133 complet ed [employer] M [facility] PNEUMOCOCCAL CONJUGATE PCV 13 [address] [facility] INFLUENZA, UNSPECIFIED FORMULATION [address] [facility] INFLUENZA, UNSPECIFIED FORMULATION [address] [facility] INFLUENZA, UNSPECIFIED FORMULATION [address] [facility] INFLUENZA, UNSPECIFIED FORMULATION [address] [facility] PNEUMOCOCCAL, UNSPECIFIED FORMULATION 2009 109 complet ed [employer],093 02, 011 [facility] TDAP [address] [facility] ZOSTER LIVE [address] [facility] TDAP [address] [facility] ZOSTER LIVE [address] [facility] Results Combined list of recent [...] Jul 17, 2023 04:23 PM Reporting Lab: [facility] [address] Performing Lab: [facility] [address] [place] [facility] URINALYS IS SPECIFIC GRAVITY OF URINE 1.006 1.003 - 1.035 07/16 Specimen Type: URINE No comment entered. Ordering Provider: TERRENCE CHAUHAN Report Released Date/Time: Jul 17, 2023 04:23 PM Reporting Lab: [facility] [address] Performing Lab: [facility] [address] [place] [facility] URINALYS IS BILIRUBIN. TOTAL [PRESENCE] IN URINE BY TEST STRIP NEGATIVE 07/16 Specimen Type: URINE No comment entered. Ordering Provider: TERRENCE CHAUHAN Report Released Date/Time: Jul 17, 2023 04:23 PM Reporting Lab: [facility] [address] Performing Lab: [facility] [address] [place] [facility] URINALYS IS KETONES [MASS/VOLU ME] IN URINE BY TEST STRIP NEGATIVE 07/16 Specimen Type: URINE No comment entered. Ordering Provider: TERRENCE CHAUHAN Report Released Date/Time: Jul 17, 2023 04:23 PM Reporting Lab: [facility] [address] Performing Lab: [facility] [address] [place] [facility] URINALYS IS GLUCOSE [MASS/VOLU ME] IN URINE BY TEST STRIP NEGATIVE mg/dL 07/16 Specimen Type: URINE No comment entered. Ordering Provider: TERRENCE CHAUHAN Report Released Date/Time: Jul 17, 2023 04:23 PM Reporting Lab: [facility] [address] Performing Lab: [facility] [address] [place] [facility] URINALYS IS PROTEIN [MASS/VOLU ME] IN URINE BY TEST STRIP NEGATIVE mg/dL 07/16 Specimen Type: URINE No comment entered. Ordering Provider: TERRENCE CHAUHAN Report Released Date/Time: Jul 17, 2023 04:23 PM Reporting Lab: [facility] [address] Performing Lab: [facility] [phone] [place] [facility] URINALYS IS PH OF URINE BY TEST STRIP 7.0 5.0 - 8.0 07/16 Specimen Type: URINE No comment entered. Ordering Provider: TERRENCE CHAUHAN Report Released Date/Time: Jul 17, 2023 04:23 PM Reporting Lab: [facility] [address] Performing Lab: [facility] [address] [facility] URINALYS IS LEUKOCYTES [#/AREA] IN URINE SEDIMENT BY MICROSCOPY HIGH POWER FIELD <1/[HPF] 0 - 7 07/16 Specimen Type: URINE No comment entered. Ordering Provider: TERRENCE CHAUHAN Report Released Date/Time: Jul 17, 2023 04:23 PM Reporting Lab: [facility] [address] Performing Lab: [facility] [address] [place] [facility] URINALYS IS BACTERIA [PRESENCE] IN URINE SEDIMENT BY LIGHT MICROSCOPY NONE SEEN 07/16 Specimen Type: URINE No comment entered. Ordering Provider: TERRENCE CHAUHAN Report Released Date/Time: Jul 17, 2023 04:23 PM Reporting Lab: [facility] [address] Performing Lab: [facility] [address] [place] [facility] URINALYS IS ERYTHROCYT ES [#/AREA] IN URINE SEDIMENT BY MICROSCOPY HIGH POWER FIELD <1/[HPF] 0 - 3 07/16 Specimen Type: URINE No comment entered. Ordering Provider: TERRENCE CHAUHAN Report Released Date/Time: Jul 17, 2023 04:23 PM Reporting Lab: [facility] [address] Performing Lab: [facility] [address] [place] [facility] URINALYS IS APPEARANCE OF URINE CLEAR 07/16 Specimen Type: URINE No comment entered. Ordering Provider: TERRENCE CHAUHAN Report Released Date/Time: Jul 17, 2023 04:23 PM Reporting Lab: [facility] [address] Performing Lab: [facility] [address] [place] [facility] URINALYS IS EPITHELIAL CELLS.SQUA MOUS [#/AREA] IN URINE SEDIMENT BY MICROSCOPY HIGH POWER FIELD NONE SEEN/[HP F] 07/16 Specimen Type: URINE No comment entered. Ordering Provider: TERRENCE CHAUHAN Report Released Date/Time: Jul 17, 2023 04:23 PM Reporting Lab: [facility] [address] Performing Lab: [facility] [address] [place] [facility] URINALYS IS HEMOGLOBIN [PRESENCE] IN URINE BY TEST STRIP NEGATIVE 07/16 Specimen Type: URINE No comment entered. Ordering Provider: TERRENCE CHAUHAN Report Released Date/Time: Jul 17, 2023 04:23 PM Reporting Lab: [facility] [address] Performing Lab: [facility] [phone] [place] [facility] URINALYS IS NITRITE [PRESENCE] IN URINE BY TEST STRIP NEGATIVE 07/16 Specimen Type: URINE No comment entered. Ordering Provider: TERRENCE CHAUHAN Report Released Date/Time: Jul 17, 2023 04:23 PM Reporting Lab: [facility] [address] Performing Lab: [facility] [address] [place] [facility] URINALYS IS LEUKOCYTE ESTERASE [PRESENCE] IN URINE BY TEST STRIP NEGATIVE 07/16 Specimen Type: URINE No comment entered. Ordering Provider: TERRENCE CHAUHAN Report Released Date/Time: Jul 17, 2023 04:23 PM Reporting Lab: [facility] [address] Performing Lab: [facility] [address] [place] [facility] HEMOGLOB IN A1C HEMOGLOBIN A1C/HEMOGL OBIN.TOTAL [...] August 07, 2022 02:21 PM Reporting Lab: [facility] [address] Performing Lab: [facility] [address] [place] [facility] BASIC METABOLI C PANEL+MG CREATININE [MASS/VOLU ME] IN SERUM OR PLASMA 1.3 mg/dL 0.7 - 1.2 07/16 H Specimen Type: PLASMA No comment entered. Ordering Provider: TERRENCE CHAUHAN Report Released Date/Time: August 07, 2022 02:21 PM Reporting Lab: [facility] [address] Performing Lab: [facility] [address] [place] [facility] BASIC METABOLI C PANEL+MG UREA NITROGEN [MASS/VOLU ME] IN SERUM OR PLASMA 15 mg/dL 8 - 26 07/16 Specimen Type: PLASMA No comment entered. Ordering Provider: TERRENCE CHAUHAN Report Released Date/Time: August 07, 2022 02:21 PM Reporting Lab: [facility] [address] Performing Lab: [facility] [address] [place] [facility] BASIC METABOLI C PANEL+MG GLUCOSE [MASS/VOLU ME] IN SERUM OR PLASMA 84 mg/dL 70 - 100 07/16 Specimen Type: PLASMA No comment entered. Ordering Provider: TERRENCE CHAUHAN Report Released Date/Time: August 07, 2022 02:21 PM Reporting Lab: [facility] [address] Performing Lab: [facility] [address] [place] [facility] BASIC METABOLI C PANEL+MG SODIUM [MOLES/VOL UME] IN SERUM OR PLASMA 137 mmol/L 136 - 145 07/16 Specimen Type: PLASMA No comment entered. Ordering Provider: TERRENCE CHAUHAN Report Released Date/Time: August 07, 2022 02:21 PM Reporting Lab: [facility] [address] Performing Lab: [facility] [address] [place] [facility] BASIC METABOLI C PANEL+MG POTASSIUM [MOLES/VOL UME] IN SERUM OR PLASMA 4.6 mmol/L 3.5 - 5.1 07/16 Specimen Type: PLASMA No comment entered. Ordering Provider: TERRENCE CHAUHAN Report Released Date/Time: August 07, 2022 02:21 PM Reporting Lab: [facility] [address] Performing Lab: [facility] [address] [place] [facility] BASIC METABOLI C PANEL+MG CHLORIDE [MOLES/VOL UME] IN SERUM OR PLASMA 105 mmol/L 98 - 107 07/16 Specimen Type: PLASMA No comment entered. Ordering Provider: TERRENCE CHAUHAN Report Released Date/Time: August 07, 2022 02:21 PM Reporting Lab: [facility] [address] Performing Lab: [facility] [address] [place] [facility] BASIC METABOLI C PANEL+MG CARBON DIOXIDE, TOTAL [MOLES/VOL UME] IN SERUM OR PLASMA 24 mmol/L 22 - 29 07/16 Specimen Type: PLASMA No comment entered. Ordering Provider: TERRENCE CHAUHAN Report Released Date/Time: August 07, 2022 02:21 PM Reporting Lab: [facility] [address] Performing Lab: [facility] [address] [place] [facility] BASIC METABOLI C PANEL+MG CALCIUM [MASS/VOLU ME] IN SERUM OR PLASMA 8.9 mg/dL 8.4 - 10.2 07/16 Specimen Type: PLASMA No comment entered. Ordering Provider: TERRENCE CHAUHAN Report Released Date/Time: August 07, 2022 02:21 PM Reporting Lab: [facility] [address] Performing Lab: [facility] [address] [place] [facility] BASIC METABOLI C PANEL+MG MAGNESIUM [MASS/VOLU ME] IN SERUM OR PLASMA 2.1 mg/dL 1.6 - 2.6 07/16 Specimen Type: PLASMA No comment entered. Ordering Provider: TERRENCE CHAUHAN Report Released Date/Time: August 07, 2022 02:21 PM Reporting Lab: [facility] [address] Performing Lab: [facility] [address] [place] [facility] BASIC METABOLI C PANEL+MG ANION GAP IN SERUM OR PLASMA 8 mmol/L 5 - 15 07/16 Specimen Type: PLASMA No comment entered. Ordering Provider: TERRENCE CHAUHAN Report Released Date/Time: August 07, 2022 02:21 PM Reporting Lab: [facility] [address] Performing Lab: [facility] [address] [place] [facility] BASIC METABOLI C PANEL+MG GLOMERULAR FILTRATION RATE/1.73 SQ M.PREDICTE D [VOLUME RATE/AREA] IN SERUM, PLASMA OR BLOOD BY CREATININE -BASED FORMULA (CKD-EPI 2020) 56 60 07/16 L Specimen Type: PLASMA No comment entered. Ordering Provider: TERRENCE CHAUHAN Report Released Date/Time: August 07, 2022 02:21 PM Reporting Lab: [facility] [address] Performing Lab: [facility] [address] [place] [facility] LEUKOCYTES [#/VOLUME] IN BLOOD BY AUTOMATED COUNT 8.72 10*3/uL 4.0 - 11.0 07/16 Specimen Type: BLOOD No comment entered. Ordering Provider: TERRENCE CHAUHAN Report Released Date/Time: August 07, 2022 02:21 PM Reporting Lab: [facility] [address] Performing Lab: [facility] [address] [place] [facility] CBC ERYTHROCYT ES [#/VOLUME] IN BLOOD BY AUTOMATED COUNT 4.11 10*6/uL 4.6 - 6.2 07/16 L Specimen Type: BLOOD No comment entered. Ordering Provider: TERRENCE CHAUHAN Report Released Date/Time: August 07, 2022 02:21 PM Reporting Lab: [facility] [address] Performing Lab: [facility] [address] [place] [facility] CBC HEMOGLOBIN [MASS/VOLU ME] IN BLOOD 13.4 g/dL 13.5 - 17.9 07/16 L Specimen Type: BLOOD No comment entered. Ordering Provider: TERRENCE CHAUHAN Report Released Date/Time: August 07, 2022 02:21 PM Reporting Lab: [facility] [address] Performing Lab: [facility] [address] [place] [facility] CBC HEMATOCRIT [VOLUME FRACTION] OF BLOOD BY AUTOMATED COUNT 39.7 41 - 54 07/16 L Specimen Type: BLOOD No comment entered. Ordering Provider: TERRENCE CHAUHAN Report Released Date/Time: August 07, 2022 02:21 PM Reporting Lab: [facility] [phone] Performing Lab: [facility] [address] [place] [facility] CBC MCV [ENTITIC VOLUME] BY AUTOMATED COUNT 96.6 fL 80 - 100 07/16 Specimen Type: BLOOD No comment entered. Ordering Provider: TERRENCE CHAUHAN Report Released Date/Time: August 07, 2022 02:21 PM Reporting Lab: [facility] [address] Performing Lab: [facility] [address] [place] [facility] CBC MCH [ENTITIC MASS] BY AUTOMATED COUNT 32.6 pg 27 - 33 07/16 Specimen Type: BLOOD No comment entered. Ordering Provider: TERRENCE CHAUHAN Report Released Date/Time: August 07, 2022 02:21 PM Reporting Lab: [facility] [address] Performing Lab: [facility] [address] [place] [facility] CBC MCHC [MASS/VOLU ME] BY AUTOMATED COUNT 33.8 g/dL 32.0 - 37.5 07/16 Specimen Type: BLOOD No comment entered. Ordering Provider: TERRENCE CHAUHAN Report Released Date/Time: August 07, 2022 02:21 PM Reporting Lab: [facility] [address] Performing Lab: [facility] [address] [facility] CBC PLATELETS [#/VOLUME] IN BLOOD BY AUTOMATED COUNT 159 10*3/uL 150 - 400 07/16 Specimen Type: BLOOD No comment entered. Ordering Provider: TERRENCE CHAUHAN Report Released Date/Time: August 07, 2022 02:21 PM Reporting Lab: [facility] [address] Performing Lab: [facility] [address] [place] [facility] CBC PLATELET MEAN VOLUME [ENTITIC VOLUME] IN BLOOD BY AUTOMATED COUNT 9.6 fL 7.4 - 10.4 07/16 Specimen Type: BLOOD No comment entered. Ordering Provider: TERRENCE CHAUHAN Report Released Date/Time: August 07, 2022 02:21 PM Reporting Lab: [facility] [address] Performing Lab: [facility] [address] [facility] CBC ERYTHROCYT E DISTRIBUTI ON WIDTH [RATIO] BY AUTOMATED COUNT 14.1 11.5 - 14.5 07/16 Specimen Type: BLOOD No comment entered. Ordering Provider: TERRENCE CHAUHAN Report Released Date/Time: August 07, 2022 02:21 PM Reporting Lab: [facility] [address] Performing Lab: [facility] [address] [facility] IS [facility] LIVER FUNCTION TESTS BILIRUBIN. TOTAL [MASS/VOLU ME] IN SERUM OR PLASMA 0.8 mg/dL 0.2 - 1.2 07/16 Specimen Type: PLASMA No comment entered. Ordering Provider: TERRENCE CHAUHAN Report Released Date/Time: August 07, 2022 02:21 PM Reporting Lab: [facility] [address] Performing Lab: [facility] [address] [place] [facility] LIVER FUNCTION TESTS ALKALINE PHOSPHATAS E [ENZYMATIC ACTIVITY/V OLUME] IN SERUM OR PLASMA 52 U/L 40 - 150 07/16 Specimen Type: PLASMA No comment entered. Ordering Provider: TERRENCE CHAUHAN Report Released Date/Time: August 07, 2022 02:21 PM Reporting Lab: [facility] [address] Performing Lab: [facility] [address] [place] [facility] LIVER FUNCTION TESTS ALANINE AMINOTRANS FERASE [ENZYMATIC ACTIVITY/V OLUME] IN SERUM OR PLASMA 20 U/L <55 - 55 07/16 Specimen Type: PLASMA No comment entered. Ordering Provider: TERRENCE CHAUHAN Report Released Date/Time: August 07, 2022 02:21 PM Reporting Lab: [facility] [address] Performing Lab: [facility] [address] [place] [facility] LIVER FUNCTION TESTS ASPARTATE AMINOTRANS FERASE [ENZYMATIC ACTIVITY/V OLUME] IN SERUM OR PLASMA 19 U/L <34 - 34 07/16 Specimen Type: PLASMA No comment entered. Ordering Provider: TERRENCE CHAUHAN Report Released Date/Time: August 07, 2022 02:21 PM Reporting Lab: [facility] [address] Performing Lab: [facility] [address] [place] [facility] LIVER FUNCTION TESTS GAMMA GLUTAMYL TRANSFERAS E [ENZYMATIC ACTIVITY/V OLUME] IN SERUM OR PLASMA 38 U/L <64 - 64 07/16 Specimen Type: PLASMA No comment entered. Ordering Provider: TERRENCE CHAUHAN Report Released Date/Time: August 07, 2022 02:21 PM Reporting Lab: [facility] [address] Performing Lab: [facility] [address] [place] [facility] PSA PROSTATE SPECIFIC AG [MASS/VOLU ME] IN SERUM OR PLASMA 3.84 ng/mL <4.00 - 4.00 07/16 Specimen Type: SERUM No comment entered. Ordering Provider: TERRENCE CHAUHAN Report Released Date/Time: August 07, 2022 02:21 PM Reporting Lab: [facility] [address] Performing Lab: [facility] [address] [place] [facility] CREATINI NE(INCLU SATHYA EGFR) CREATININE [MASS/VOLU ME] IN SERUM OR PLASMA 1.2 mg/dL 0.7 - 1.2 04/16 Specimen Type: PLASMA No comment entered. Ordering Provider: HUYEN HYLTON Report Released Date/Time: Mar 07, 2023 02:00 PM Reporting Lab: [facility] [address] Performing Lab: [place] [address] [place] [facility] CREATINI NE(INCLU SATHYA EGFR) GLOMERULAR FILTRATION RATE/1.73 SQ M.PREDICTE D [VOLUME RATE/AREA] IN SERUM, PLASMA OR BLOOD BY CREATININE -BASED FORMULA (CKD-EPI 2020) 62 60 04/16 Specimen Type: PLASMA No comment entered. Ordering Provider: HUYEN HYLTON Report Released Date/Time: Mar 07, 2023 02:00 PM Reporting Lab: [facility] [address] Performing Lab: [facility] [address] [facility] CBC LEUKOCYTES [#/VOLUME] IN BLOOD BY AUTOMATED COUNT 8.06 10*3/uL 4.0 - 11.0 04/16 Specimen Type: BLOOD No comment entered. Ordering Provider: HUYEN HYLTON Report Released Date/Time: Mar 07, 2023 02:00 PM Reporting Lab: [facility] [address] Performing Lab: [facility] [address] [place] [facility] CBC ERYTHROCYT ES [#/VOLUME] IN BLOOD BY AUTOMATED COUNT 4.03 10*6/uL 4.6 - 6.2 04/16 L Specimen Type: BLOOD No comment entered. Ordering Provider: HUYEN HYLTON Report Released Date/Time: Mar 07, 2023 02:00 PM Reporting Lab: [facility] [address] Performing Lab: [facility] [address] [place] [facility] CBC HEMOGLOBIN [MASS/VOLU ME] IN BLOOD 13.1 g/dL 13.5 - 17.9 04/16 L Specimen Type: BLOOD No comment entered. Ordering Provider: HUYEN HYLTON Report Released Date/Time: Mar 07, 2023 02:00 PM Reporting Lab: [facility] [address] Performing Lab: [facility] [address] [place] [facility] CBC HEMATOCRIT [VOLUME FRACTION] OF BLOOD BY AUTOMATED COUNT 38.9 41 - 54 04/16 L Specimen Type: BLOOD No comment entered. Ordering Provider: HUYEN HYLTON Report Released Date/Time: Mar 07, 2023 02:00 PM Reporting Lab: [facility] [address] Performing Lab: [facility] [address] [place] [facility] CBC MCV [ENTITIC VOLUME] BY AUTOMATED COUNT 96.5 fL 80 - 100 04/16 Specimen Type: BLOOD No comment entered. Ordering Provider: HUYEN HYLTON Report Released Date/Time: Mar 07, 2023 02:00 PM Reporting Lab: [facility] [address] Performing Lab: [facility] [address] [place] [facility] CBC MCH [ENTITIC MASS] BY AUTOMATED COUNT 32.5 pg 27 - 33 04/16 Specimen Type: BLOOD No comment entered. Ordering Provider: HUYEN HYLTON Report Released Date/Time: Mar 07, 2023 02:00 PM Reporting Lab: [facility] [address] Performing Lab: [facility] [address] [place] [facility] CBC MCHC [MASS/VOLU ME] BY AUTOMATED COUNT 33.7 g/dL 32.0 - 37.5 04/16 Specimen Type: BLOOD No comment entered. Ordering Provider: HUYEN HYLTON Report Released Date/Time: Mar 07, 2023 02:00 PM Reporting Lab: [facility] [address] Performing Lab: [facility] [address] [place] [facility] CBC PLATELETS [#/VOLUME] IN BLOOD BY AUTOMATED COUNT 157 10*3/uL 150 - 400 04/16 Specimen Type: BLOOD No comment entered. Ordering Provider: HUYEN HYLTON Report Released Date/Time: Mar 07, 2023 02:00 PM Reporting Lab: [facility] [address] Performing Lab: [facility] [address] [place] [facility] CBC PLATELET MEAN VOLUME [ENTITIC VOLUME] IN BLOOD BY AUTOMATED COUNT 9.7 fL 7.4 - 10.4 04/16 Specimen Type: BLOOD No comment entered. Ordering Provider: HUYEN HYLTON Report Released Date/Time: Mar 07, 2023 02:00 PM Reporting Lab: [facility] [address] Performing Lab: [facility] [address] [place] [facility] CBC ERYTHROCYT E DISTRIBUTI ON WIDTH [RATIO] BY AUTOMATED COUNT 14.5 11.5 - 14.5 04/16 Specimen Type: BLOOD No comment entered. Ordering Provider: HUYEN HYLTON Report Released Date/Time: Mar 07, 2023 02:00 PM Reporting Lab: [facility] [address] Performing Lab: [facility] [address] [place] [facility] AST/SGOT ASPARTATE AMINOTRANS FERASE [ENZYMATIC ACTIVITY/V OLUME] IN SERUM OR PLASMA 22 U/L <34 - 34 04/16 Specimen Type: PLASMA No comment entered. Ordering Provider: HUYEN HYLTON S Report Released Date/Time: Mar 07, 2023 02:00 PM Reporting Lab: [facility] [address] Performing Lab: [facility] [address] [facility] ALT/SGPT ALANINE AMINOTRANS FERASE [ENZYMATIC ACTIVITY/V OLUME] IN SERUM OR PLASMA 19 U/L <55 - 55 04/16 Specimen Type: PLASMA No comment entered. Ordering Provider: HUYEN HYLTON S Report Released Date/Time: Mar 07, 2023 02:00 PM Reporting Lab: [facility] [address] Performing Lab: [facility] [address] [place] [facility] Vital Signs Combined list of inpatient [...] DC Date Status Disposition Source [place] [facility] Outpatient Encounter [id number] 06/12 [facility] [place] [facility] Outpatient Encounter [id number] 07/15 [facility] [place] [facility] OFFICE O/P EST MOD 30-39 MIN [id number] Diagnos is: ICD-10- CM Z00.01 Encount er for general adult medical exam w abnorma l finding s
DANETTE LIN LY E 08/07 [facility] [place] [facility] Outpatient Encounter [id number] 08/07 [facility] [place] [facility] Outpatient Encounter [id number] OLESYA ROGERS 08/12 [facility] [place] [facility] Outpatient Encounter [id number] OLESYA ROGERS 08/12 [facility] [place] [facility] Outpatient Encounter [id number] Ana CHAUHAN 09/12 [facility] [place] [facility] Outpatient Encounter [id number] 11/06 [facility] [place] [facility] Outpatient Encounter [id number] 12/08 [facility] [place] [facility] Outpatient Encounter [id number] 12/12 [place] [facility] [place] [facility] Outpatient Encounter [id number] 01/17 [place] [facility] [place] [facility] Outpatient Encounter [id number] 02/19 [place] [facility] [place] [facility] Outpatient Encounter [id number] 02/24 [place] [facility] [place] [facility] Outpatient Encounter [id number] 03/07 [facility] QNHP OL DIG ASSMT&MGMT 5-10 [id number] Diagnos is: ICD-10- CM Z79.01 jail (curren t) use of anticoa gulants
[facility] OFFICE O/P EST MOD 30 MIN [id number] Diagnos is: ICD-10- CM Z00.01 Encount er for general adult medical exam w abnorma l finding s
Ana CHAUHAN 07/16 [facility] [place] [facility] Outpatient Encounter [id number] 07/17 [facility] Social History Combined list of available smoking, tobacco, and other social history from [employer] and [facility] Affairs facilities. Social History Type Response Date Comment Sourc e Tobacco smoking status NHIS DC-TOBACCO FORMER USER 07/17/2023 [facility] History of tobacco use DC-TOBACCO QUIT 1 TO < 5 YRS 07/17/2023 [facility] History of tobacco use DC-TOBACCO FORMER USER 08/07/2022 [facility] History of tobacco use DC-TOBACCO FORMER USER 10/16/2020 [facility] History of tobacco use DC-TOBACCO USE CO UNSEL NO 03/29/2019 [facility] History of tobacco use VA-TOBACCO USER E VERY DAY 02/17/2018 [facility] History of tobacco use CURRENT TOBACCO USER 02/12/2017 [facility] History of tobacco use CURRENT TOBACCO USER 04/25/2015 [facility] History of tobacco use CURRENT TOBACCO USER 04/21/2014 [facility] History of tobacco use CURRENT TOBACCO USER 04/20/2013 [facility] History of tobacco use CURRENT TOBACCO USER 03/20/2012 [facility] History of tobacco use CURRENT TOBACCO USER 02/06/2011 [facility] History of tobacco use CURRENT TOBACCO USER 01/02/2010 [facility]
== END 2023-11-17 10:49 | disposition home or self-care (01) ==
LOC: WOUND 10:48
PROVIDERS: Visit Provider Nurse Practitioner Family
DX: S61.211D Laceration without foreign body of left index finger without damage to nail, subsequent encounter (principal)
CPT/HCPCS: G0463

== ENCOUNTER 2024-02-09 11:59 | Outpatient (CLI) | payer MEDICARE, BC, SELFPAY ==
--- OUTSIDE RECORDS SUMMARY | 2024-02-09 12:04 | XMS_ITS | Continuity of Care Document ---
Author Name [facility] Organization [facility] Care Team Providers Care Guide Winder Name Role Phone [facility] Unavailable Unavailable Problems Combined list of problems from Department of Defense and Veterans Affairs facilities. It does not include entries that were removed or entered in error. Problem Status Onset Date Problem Type Date of Resolution Comments Source CVD - Cerebrovascular Disease ([facility] 87381578) Active 03/19/20 20 Condition May 01, 2020 Entered By: YOAV CHAUHAN Comment: 03/19/20: L MCA CVA, Admit ANW. Cardio-embol ic d/t Warfarin DC [facility] CAD - Coronary Artery Disease ([facility] 40719430) Active 01/27/20 20 Condition Mar 13, 2020 Entered By: YOAV CHAUHAN Comment: 01/27/20: LAD and Dx stented w/SATHYA at [facility]. Plavix +ASA thru 01/26/21 [facility] Peripheral arterial insufficiency Active 01/21/20 20 Condition Mar 13, 2020 Entered By: YOAV CHAUHAN Comment: 01/21/20: L femoral Art occlusion per [facility]-->Fem -Tibial bypass planned [facility] Allergic rhinitis (SNOMED CT 06799691) Active Condition [facility] Atrial fibrillation (SNOMED CT 20572281) Active Condition Apr 26, 2015 Entered By: YOAV CHAUHAN Comment: Warfarin through Miryam Rodriguez [facility] Co-Managed Care Active Condition Dec 25, 2017 Entered By: YOAV CHAUHAN Comment: Dr Garcia, [place], F: [phone] , [facility] COPD - Chronic Obstructive Pulmonary Disease ([facility] 27942191) Active Condition Dec 25, 2017 Entered By: YOAV CHAUHAN Comment: Mometasone & Albuterol MDI's [facility] [employer] of toe Active Condition Sep 08, 2019 Entered By: YOAV CHAUHAN Comment: R middle toe [facility] Current smoker Active Condition Apr 082015 Entered By: YOAV CHAUHAN Comment: Cigars, not cigarettes [facility] Essential hypertension (SNOMED CT 43971539) Active Condition [facility] Glucose intolerance Active Condition [facility] Nocturia due to benign prostatic hypertrophy Active Condition [facility] Health Maintenance (ICD-9-CM V65.9) Inactive Condition 04/26/[address] 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 [facility] Medications Combined list of outpatient medications [...] BREATH RESPIR ATORY (INHAL ATION) ACTIVE 07/17/2024 [id number] 4 AFRICA CHAUHAN 2023 2 [facility] APIXABAN 5MG TAB TAKE ONE TABLET BY MOUTH EVERY 12 HOURS TO PREVENT BLOOD CLOTS AND STROKE (ELIQUIS ) ORAL ACTIVE 05/29/2024 [id number] 4 MARIANO GARCIA 2023 180 [facility] APIXABAN 5MG TAB TAKE ONE TABLET BY MOUTH EVERY 12 HOURS TO PREVENT BLOOD CLOTS AND STROKE (ELIQUIS ) ORAL DISCONT INUED 05/09/2023 [id number] 3 MARIANO GARCIA 2022 180 [facility] CHOLECALCIF JONNA 25MCG (1,000UNIT) TAB TAKE FIVE TABLETS BY MOUTH QOD ORAL ACTIVE AFRICA CHAUHAN 2016 [facility] FLUOCINONID E 0.1% CREAM,TOP APPLY A THIN LAYER TOPICALL Y TWICE A DAY NEEDED FOR RASH TOPICA L 12/13/2023 [id number] 3 AFRICA CHAUHAN 2022 60 [facility] FLUTICASONE 250MCG/SALM ETEROL 50MCG INHL,ORAL,D ISKUS,60 INHALE 1 PUFF BY INHALATI ON TWICE A DAY FOR COPD RESPIR ATORY (INHAL ATION) ACTIVE 07/17/2024 [id number] 4 AFRICA CHAUHAN 2023 3 [facility] FLUTICASONE 250MCG/SALM ETEROL 50MCG INHL,ORAL,D ISKUS,60 INHALE 1 PUFF BY INHALATI ON TWICE A DAY FOR COPD THIS REPLACES YOUR MOMETASO NE RESPIR ATORY (INHAL ATION) DISCONT INUED 08/08/2023 [id number] 4 AFRICA CHAUHAN 2022 3 [facility] FUROSEMIDE 20MG TAB TAKE ONE TABLET BY MOUTH THREE TIMES A WEEK FOR HEART FAILURE ORAL ACTIVE 02/25/2024 [id number] 3 Hong DONAHUE 2022 39 [facility] FUROSEMIDE 20MG TAB TAKE ONE TABLET BY MOUTH EVERY OTHER DAY FOR HEART FAILURE ORAL DISCONT INUED (EDIT) 08/13/2023 [id number] 3 AFRICA CHAUHAN 2022 45 [facility] METOPROLOL TARTRATE 100MG TAB TAKE ONE TABLET BY MOUTH TWICE A DAY FOR BLOOD PRESSURE ORAL ACTIVE 12/23/2024 [id number] 4 AFRICA CHAUHAN 2023 180 [facility] METOPROLOL TARTRATE 100MG TAB TAKE ONE TABLET BY MOUTH TWICE A DAY FOR BLOOD PRESSURE ORAL DISCONT INUED 12/13/2023 [id number] 4 AFRICA CHAUHAN 2022 180 [facility] NIFEDIPINE (EQV-CC) 60MG TAB,SA TAKE ONE TABLET BY MOUTH EVERY DAY FOR BLOOD PRESSURE ORAL DISCONT INUED BY PROVIDE R 08/08/2023 [id number] 3 AFRICA CHAUHAN [address] [facility] NIFEDIPINE (EQV-CC) 90MG TAB,SA TAKE ONE TABLET BY MOUTH EVERY DAY FOR BLOOD PRESSURE ORAL SUSPEND ED 07/17/2024 [id number] 4 AFRICA CHAUHAN [address] [facility] [facility] NIFEDIPINE (EQV-CC) 90MG TAB,SA TAKE ONE TABLET BY MOUTH EVERY DAY FOR BLOOD PRESSURE INCREASE D DOSE PER CO-MANAG ED CARE INCREASE D DOSE PER CO-MANAG ED CARE ORAL DISCONT INUED 12/13/2023 [id number] 4 AFRICA CHAUHAN [address] [facility] POTASSIUM CHLORIDE 10MEQ TAB,SA TAKE ONE TABLET BY MOUTH THREE TIMES A WEEK FOR POTASSIU M SUPPLEME NT TAKE WITH FUROSEMI DE ORAL ACTIVE 02/25/2024 [id number] 3 Hong DONAHUE A 2022 39 [facility] POTASSIUM CHLORIDE 10MEQ TAB,SA TAKE ONE TABLET BY MOUTH EVERY OTHER DAY FOR POTASSIU M SUPPLEME NT ORAL DISCONT INUED (EDIT) 08/13/2023 [id number] 3 AFRICA CHAUHAN [address] [facility] ROSUVASTATI N CA 20MG TAB TAKE ONE TABLET BY MOUTH AT BEDTIME FOR CORONARY ARTERY DISEASE ORAL ACTIVE 07/17/2024 [id number] 4 AFRICA CHAUHAN [address] [facility] [facility] ROSUVASTATI N CA 20MG TAB TAKE ONE TABLET BY MOUTH AT BEDTIME FOR CORONARY ARTERY DISEASE ORAL DISCONT INUED 08/08/2023 [id number] 4 AFRICA CHAUHAN [address] [facility] [facility] TAMSULOSIN HCL 0.4MG CAP TAKE ONE CAPSULE BY MOUTH EVERY EVENING FOR PROSTATE ORAL ACTIVE 07/17/2024 [id number] 4 AFRICA CHAUHAN 2023 30 [place] [facility] Allergies, Adverse Reactions, Alerts Combined list of allergies from Department of Defense and Veterans Affairs facilities. It does not include entries that were removed or entered in error. Substance Category Reaction Severity Reaction type Status Date Reported Comments Source LISINOPRIL Propensity to adverse reactions to drug (finding) Cough active 0 [facility] Immunizations Combined list of available immunizations from the Department of Defense and Veterans Affairs facilities. Immunization Series Date Given Administered By Site Reaction Lot Number CVX Code Drug Sales Development Executive Status Comments Source COVID-19 (Notable Limited), MRNA, LNP-S, BIVALENT, PF, 30 MCG/0.3 ML DOSE 2022 300 complet [facility] COVID-19 (Notable Limited), MRNA, LNP-S, PF, 30 MCG/0.3 ML DOSE, JAMES-SUCROSE (AGES 12+ YEARS) 2021 217 complet [facility] COVID-19 (Notable Limited), MRNA, LNP-S, PF, 30 MCG/0.3 ML DOSE 2020 208 complet [facility] ZOSTER RECOMBINANT 2 2020 187 complet [facility] INFLUENZA VACCINE, QUADRIVALENT, ADJUVANTED 2020 205 complet [facility] INFLUENZA, UNSPECIFIED FORMULATION 2020 88 complet [facility] ZOSTER RECOMBINANT 1 2020 187 complet [facility] COVID-19 (Notable Limited), MRNA, LNP-S, PF, 30 MCG/0.3 ML DOSE 2 2020 208 complet [facility] COVID-19 (Notable Limited), MRNA, LNP-S, PF, 30 MCG/0.3 ML DOSE 1 2020 208 complet [facility] INFLUENZA VACCINE, QUADRIVALENT, ADJUVANTED 2019 205 complet [facility] INFLUENZA, TRIVALENT, ADJUVANTED 2018 168 complet [facility] INFLUENZA, SEASONAL, INJECTABLE 2018 141 complet [facility] INFLUENZA, SEASONAL, INJECTABLE 2017 141 complet [facility] INFLUENZA, TRIVALENT, ADJUVANTED 2017 168 complet [facility] INFLUENZA, HIGH DOSE SEASONAL 2016 135 complet ed [facility] PNEUMOCOCCAL POLYSACCHARID E PPV23 2016 33 complet ed [employer] , [id number], 06/03/18 [facility] TD (ADULT), 2 LF TETANUS TOXOID, PRESERVATIVE FREE, ADSORBED 2016 09 complet ed [employer] [id number], 12/19/18 [facility] INFLUENZA, HIGH DOSE SEASONAL 2016 135 complet ed [facility] PNEUMOCOCCAL POLYSACCHARID E PPV23 2016 33 complet ed [facility] INFLUENZA, HIGH DOSE SEASONAL 2015 135 complet ed [facility] PNEUMOCOCCAL CONJUGATE PCV 13 2015 133 complet ed [employer] [facility] PNEUMOCOCCAL CONJUGATE PCV 13 2014 133 complet ed [facility] INFLUENZA, UNSPECIFIED FORMULATION 2013 88 complet ed [facility] INFLUENZA, UNSPECIFIED FORMULATION 2013 88 complet ed [facility] INFLUENZA, UNSPECIFIED FORMULATION 2011 88 complet ed [facility] INFLUENZA, UNSPECIFIED FORMULATION 2010 88 complet ed [facility] PNEUMOCOCCAL, UNSPECIFIED FORMULATION 2009 109 complet ed merck,093 02, 011 [facility] TDAP 2009 115 complet ed [facility] ZOSTER LIVE 2008 121 complet ed [facility] TDAP 2007 115 complet ed private [facility] ZOSTER LIVE 2006 121 complet ed [facility] Results Combined list of recent chemistry, hematology [...] Jul 17, 2023 04:23 PM Reporting Lab: [facility] [address] Performing Lab: [facility] [address] [facility] URINALYS IS SPECIFIC GRAVITY OF URINE 1.006 1.003 - 1.035 07/16 Specimen Type: URINE No comment entered. Ordering Provider: TERRENCE CHAUHAN Report Released Date/Time: Jul 17, 2023 04:23 PM Reporting Lab: [facility] [address] Performing Lab: [facility] [address] [place] [facility] URINALYS IS BILIRUBIN. TOTAL [PRESENCE] IN URINE BY TEST STRIP NEGATIVE 07/16 Specimen Type: URINE No comment entered. Ordering Provider: TERRENCE CHAUHAN Report Released Date/Time: Jul 17, 2023 04:23 PM Reporting Lab: [facility] [address] Performing Lab: [facility] [address] [place] [facility] URINALYS IS KETONES [MASS/VOLU ME] IN URINE BY TEST STRIP NEGATIVE 07/16 Specimen Type: URINE No comment entered. Ordering Provider: TERRENCE CHAUHAN Report Released Date/Time: Jul 17, 2023 04:23 PM Reporting Lab: [facility] [address] Performing Lab: [facility] [address] [place] [facility] URINALYS IS GLUCOSE [MASS/VOLU ME] IN URINE BY TEST STRIP NEGATIVE mg/dL 07/16 Specimen Type: URINE No comment entered. Ordering Provider: TERRENCE CHAUHAN Report Released Date/Time: Jul 17, 2023 04:23 PM Reporting Lab: [facility] [address] Performing Lab: [facility] [address] [place] [facility] URINALYS IS PROTEIN [MASS/VOLU ME] IN URINE BY TEST STRIP NEGATIVE mg/dL 07/16 Specimen Type: URINE No comment entered. Ordering Provider: TERRENCE CHAUHAN Report Released Date/Time: Jul 17, 2023 04:23 PM Reporting Lab: [facility] [address] Performing Lab: [facility] [address] [place] [facility] URINALYS IS PH OF URINE BY TEST STRIP 7.0 5.0 - 8.0 07/16 Specimen Type: URINE No comment entered. Ordering Provider: TERRENCE CHAUHAN Report Released Date/Time: Jul 17, 2023 04:23 PM Reporting Lab: [facility] [address] Performing Lab: [facility] [address] [place] [facility] URINALYS IS LEUKOCYTES [#/AREA] IN URINE SEDIMENT BY MICROSCOPY HIGH POWER FIELD <1/[HPF] 0 - 7 07/16 Specimen Type: URINE No comment entered. Ordering Provider: TERRENCE CHAUHAN Report Released Date/Time: Jul 17, 2023 04:23 PM Reporting Lab: [facility] [address] Performing Lab: [facility] [address] [place] [facility] URINALYS IS BACTERIA [PRESENCE] IN URINE SEDIMENT BY LIGHT MICROSCOPY NONE SEEN 07/16 Specimen Type: URINE No comment entered. Ordering Provider: TERRENCE CHAUHAN Report Released Date/Time: Jul 17, 2023 04:23 PM Reporting Lab: [facility] [address] Performing Lab: [facility] [address] [place] [facility] URINALYS IS ERYTHROCYT ES [#/AREA] IN URINE SEDIMENT BY MICROSCOPY HIGH POWER FIELD <1/[HPF] 0 - 3 07/16 Specimen Type: URINE No comment entered. Ordering Provider: TERRENCE CHAUHAN Report Released Date/Time: Jul 17, 2023 04:23 PM Reporting Lab: [facility] [address] Performing Lab: [facility] [address] [place] [facility] URINALYS IS APPEARANCE OF URINE CLEAR 07/16 Specimen Type: URINE No comment entered. Ordering Provider: TERRENCE CHAUHAN Report Released Date/Time: Jul 17, 2023 04:23 PM Reporting Lab: [facility] [address] Performing Lab: [facility] [address] [place] [facility] URINALYS IS EPITHELIAL CELLS.SQUA MOUS [#/AREA] IN URINE SEDIMENT BY MICROSCOPY HIGH POWER FIELD NONE SEEN/[HP F] 07/16 Specimen Type: URINE No comment entered. Ordering Provider: TERRENCE CHAUHAN Report Released Date/Time: Jul 17, 2023 04:23 PM Reporting Lab: [facility] [address] Performing Lab: [facility] [address] [place] [facility] URINALYS IS HEMOGLOBIN [PRESENCE] IN URINE BY TEST STRIP NEGATIVE 07/16 Specimen Type: URINE No comment entered. Ordering Provider: TERRENCE CHAUHAN Report Released Date/Time: Jul 17, 2023 04:23 PM Reporting Lab: [facility] [address] Performing Lab: [facility] [address] [place] [facility] URINALYS IS NITRITE [PRESENCE] IN URINE BY TEST STRIP NEGATIVE 07/16 Specimen Type: URINE No comment entered. Ordering Provider: TERRENCE CHAUHAN Report Released Date/Time: Jul 17, 2023 04:23 PM Reporting Lab: [facility] [address] Performing Lab: [facility] [address] [place] [facility] URINALYS IS LEUKOCYTE ESTERASE [PRESENCE] IN URINE BY TEST STRIP NEGATIVE 07/16 Specimen Type: URINE No comment entered. Ordering Provider: TERRENCE CHAUHAN Report Released Date/Time: Jul 17, 2023 04:23 PM Reporting Lab: [facility] [address] Performing Lab: [facility] [address] [place] [facility] BASIC METABOLI C PANEL+MG CREATININE [MASS/VOLU ME] IN SERUM OR PLASMA 1.3 mg/dL 0.7 - 1.2 07/16 H Specimen Type: PLASMA No comment entered. Ordering Provider: TERRENCE CHAUHAN Report Released Date/Time: August 07, 2022 02:21 PM Reporting Lab: [facility] [address] Performing Lab: [facility] [address] [place] [facility] BASIC METABOLI C PANEL+MG UREA NITROGEN [MASS/VOLU ME] IN SERUM OR PLASMA 15 mg/dL 8 - 26 07/16 Specimen Type: PLASMA No comment entered. Ordering Provider: TERRENCE CHAUHAN Report Released Date/Time: August 07, 2022 02:21 PM Reporting Lab: [facility] [address] Performing Lab: [facility] [address] [place] [facility] BASIC METABOLI C PANEL+MG GLUCOSE [MASS/VOLU ME] IN SERUM OR PLASMA 84 mg/dL 70 - 100 07/16 Specimen Type: PLASMA No comment entered. Ordering Provider: TERRENCE CHAUHAN Report Released Date/Time: August 07, 2022 02:21 PM Reporting Lab: [facility] [address] Performing Lab: [facility] [address] [place] [facility] BASIC METABOLI C PANEL+MG SODIUM [MOLES/VOL UME] IN SERUM OR PLASMA 137 mmol/L 136 - 145 07/16 Specimen Type: PLASMA No comment entered. Ordering Provider: TERRENCE CHAUHAN Report Released Date/Time: August 07, 2022 02:21 PM Reporting Lab: [facility] [address] Performing Lab: [facility] [address] [place] [facility] BASIC METABOLI C PANEL+MG POTASSIUM [MOLES/VOL UME] IN SERUM OR PLASMA 4.6 mmol/L 3.5 - 5.1 07/16 Specimen Type: PLASMA No comment entered. Ordering Provider: TERRENCE CHAUHAN Report Released Date/Time: August 07, 2022 02:21 PM Reporting Lab: [facility] [address] Performing Lab: [facility] [address] [place] [facility] BASIC METABOLI C PANEL+MG CHLORIDE [MOLES/VOL UME] IN SERUM OR PLASMA 105 mmol/L 98 - 107 07/16 Specimen Type: PLASMA No comment entered. Ordering Provider: TERRENCE CHAUHAN Report Released Date/Time: August 07, 2022 02:21 PM Reporting Lab: [facility] [address] Performing Lab: [facility] [address] [place] [facility] BASIC METABOLI C PANEL+MG CARBON DIOXIDE, TOTAL [MOLES/VOL UME] IN SERUM OR PLASMA 24 mmol/L 22 - 29 07/16 Specimen Type: PLASMA No comment entered. Ordering Provider: TERRENCE CHAUHAN Report Released Date/Time: August 07, 2022 02:21 PM Reporting Lab: [facility] [address] Performing Lab: [facility] [address] [place] [facility] BASIC METABOLI C PANEL+MG CALCIUM [MASS/VOLU ME] IN SERUM OR PLASMA 8.9 mg/dL 8.4 - 10.2 07/16 Specimen Type: PLASMA No comment entered. Ordering Provider: TERRENCE CHAUHAN Report Released Date/Time: August 07, 2022 02:21 PM Reporting Lab: [facility] [address] Performing Lab: [facility] [address] [place] [facility] BASIC METABOLI C PANEL+MG MAGNESIUM [MASS/VOLU ME] IN SERUM OR PLASMA 2.1 mg/dL 1.6 - 2.6 07/16 Specimen Type: PLASMA No comment entered. Ordering Provider: TERRENCE CHAUHAN Report Released Date/Time: August 07, 2022 02:21 PM Reporting Lab: [facility] [address] Performing Lab: [facility] [address] [place] [facility] BASIC METABOLI C PANEL+MG ANION GAP IN SERUM OR PLASMA 8 mmol/L 5 - 15 07/16 Specimen Type: PLASMA No comment entered. Ordering Provider: TERRENCE CHAUHAN Report Released Date/Time: August 07, 2022 02:21 PM Reporting Lab: [facility] [address] Performing Lab: [facility] [address] [place] [facility] BASIC METABOLI C PANEL+MG GLOMERULAR FILTRATION RATE/1.73 SQ M.PREDICTE D [VOLUME RATE/AREA] IN SERUM, PLASMA OR BLOOD BY CREATININE -BASED FORMULA (CKD-EPI 2020) 56 60 07/16 L Specimen Type: PLASMA No comment entered. Ordering Provider: TERRENCE CHAUHAN Report Released Date/Time: August 07, 2022 02:21 PM Reporting Lab: [facility] [address] Performing Lab: [facility] [address] [place] [facility] CBC LEUKOCYTES [#/VOLUME] IN BLOOD BY AUTOMATED COUNT 8.72 10*3/uL 4.0 - 11.0 07/16 Specimen Type: BLOOD No comment entered. Ordering Provider: TERRENCE CHAUHAN Report Released Date/Time: August 07, 2022 02:21 PM Reporting Lab: [facility] [address] Performing Lab: [facility] [address] [place] [facility] CBC ERYTHROCYT ES [#/VOLUME] IN BLOOD BY AUTOMATED COUNT 4.11 10*6/uL 4.6 - 6.2 07/16 L Specimen Type: BLOOD No comment entered. Ordering Provider: TERRENCE CHAUHAN Report Released Date/Time: August 07, 2022 02:21 PM Reporting Lab: [facility] [address] Performing Lab: [facility] [address] [place] [facility] CBC HEMOGLOBIN [MASS/VOLU ME] IN BLOOD 13.4 g/dL 13.5 - 17.9 07/16 L Specimen Type: BLOOD No comment entered. Ordering Provider: TERRENCE CHAUHAN Report Released Date/Time: August 07, 2022 02:21 PM Reporting Lab: [facility] [address] Performing Lab: [facility] [address] [place] [facility] CBC HEMATOCRIT [VOLUME FRACTION] OF BLOOD BY AUTOMATED COUNT 39.7 41 - 54 07/16 L Specimen Type: BLOOD No comment entered. Ordering Provider: TERRENCE CHAUHAN Report Released Date/Time: August 07, 2022 02:21 PM Reporting Lab: [facility] [address] Performing Lab: [facility] [address] [place] [facility] CBC MCV [ENTITIC VOLUME] BY AUTOMATED COUNT 96.6 fL 80 - 100 07/16 Specimen Type: BLOOD No comment entered. Ordering Provider: TERRENCE CHAUHAN Report Released Date/Time: August 07, 2022 02:21 PM Reporting Lab: [facility] [address] Performing Lab: [facility] [address] [place] [facility] CBC MCH [ENTITIC MASS] BY AUTOMATED COUNT 32.6 pg 27 - 33 07/16 Specimen Type: BLOOD No comment entered. Ordering Provider: TERRENCE CHAUHAN Report Released Date/Time: August 07, 2022 02:21 PM Reporting Lab: [facility] [address] Performing Lab: [facility] [address] [place] [facility] CBC MCHC [MASS/VOLU ME] BY AUTOMATED COUNT 33.8 g/dL 32.0 - 37.5 07/16 Specimen Type: BLOOD No comment entered. Ordering Provider: TERRENCE CHAUHAN Report Released Date/Time: August 07, 2022 02:21 PM Reporting Lab: [facility] [address] Performing Lab: [facility] [address] [place] [facility] CBC PLATELETS [#/VOLUME] IN BLOOD BY AUTOMATED COUNT 159 10*3/uL 150 - 400 07/16 Specimen Type: BLOOD No comment entered. Ordering Provider: TERRENCE CHAUHAN Report Released Date/Time: August 07, 2022 02:21 PM Reporting Lab: [facility] [address] Performing Lab: [facility] [address] [place] [facility] CBC PLATELET MEAN VOLUME [ENTITIC VOLUME] IN BLOOD BY AUTOMATED COUNT 9.6 fL 7.4 - 10.4 07/16 Specimen Type: BLOOD No comment entered. Ordering Provider: TERRENCE CHAUHAN Report Released Date/Time: August 07, 2022 02:21 PM Reporting Lab: [facility] [address] Performing Lab: [facility] [address] [facility] CBC ERYTHROCYT E DISTRIBUTI ON WIDTH [RATIO] BY AUTOMATED COUNT 14.1 11.5 - 14.5 07/16 Specimen Type: BLOOD No comment entered. Ordering Provider: TERRENCE CHAUHAN Report Released Date/Time: August 07, 2022 02:21 PM Reporting Lab: [facility] [address] Performing Lab: [facility] [address] [facility] HEMOGLOB IN A1C HEMOGLOBIN A1C/HEMOGL OBIN.TOTAL [...] August 07, 2022 02:21 PM Reporting Lab: [facility] [address] Performing Lab: [facility] [address] [facility] BILIRUBIN. TOTAL [MASS/VOLU ME] IN SERUM OR PLASMA 0.8 mg/dL 0.2 - 1.2 07/16 Specimen Type: PLASMA No comment entered. Ordering Provider: TERRENCE CHAUHAN Report Released Date/Time: August 07, 2022 02:21 PM Reporting Lab: [facility] [address] Performing Lab: [facility] [address] [facility] ALKALINE PHOSPHATAS E [ENZYMATIC ACTIVITY/V OLUME] IN SERUM OR PLASMA 52 U/L 40 - 150 07/16 Specimen Type: PLASMA No comment entered. Ordering Provider: TERRENCE CHAUHAN Report Released Date/Time: August 07, 2022 02:21 PM Reporting Lab: [facility] [address] Performing Lab: [facility] [address] [place] [facility] LIVER FUNCTION TESTS ALANINE AMINOTRANS FERASE [ENZYMATIC ACTIVITY/V OLUME] IN SERUM OR PLASMA 20 U/L <55 - 55 07/16 Specimen Type: PLASMA No comment entered. Ordering Provider: TERRENCE CHAUHAN Report Released Date/Time: August 07, 2022 02:21 PM Reporting Lab: [facility] [address] Performing Lab: [facility] [address] [place] [facility] LIVER FUNCTION TESTS ASPARTATE AMINOTRANS FERASE [ENZYMATIC ACTIVITY/V OLUME] IN SERUM OR PLASMA 19 U/L <34 - 34 07/16 Specimen Type: PLASMA No comment entered. Ordering Provider: TERRENCE CHAUHAN Report Released Date/Time: August 07, 2022 02:21 PM Reporting Lab: [facility] [address] Performing Lab: [facility] [address] [place] [facility] LIVER FUNCTION TESTS GAMMA GLUTAMYL TRANSFERAS E [ENZYMATIC ACTIVITY/V OLUME] IN SERUM OR PLASMA 38 U/L <64 - 64 07/16 Specimen Type: PLASMA No comment entered. Ordering Provider: TERRENCE CHAUHAN Report Released Date/Time: August 07, 2022 02:21 PM Reporting Lab: [facility] [address] Performing Lab: [facility] [address] [place] [facility] PSA PROSTATE SPECIFIC AG [MASS/VOLU ME] IN SERUM OR PLASMA 3.84 ng/mL <4.00 - 4.00 07/16 Specimen Type: SERUM No comment entered. Ordering Provider: TERRENCE CHAUHAN Report Released Date/Time: August 07, 2022 02:21 PM Reporting Lab: [facility] [address] Performing Lab: [facility] [address] [place] [facility] ALT/SGPT ALANINE AMINOTRANS FERASE [ENZYMATIC ACTIVITY/V OLUME] IN SERUM OR PLASMA 19 U/L <55 - 55 04/16 Specimen Type: PLASMA No comment entered. Ordering Provider: HUYEN HYLTON S Report Released Date/Time: Mar 07, 2023 02:00 PM Reporting Lab: [facility] [address] Performing Lab: [facility] [address] [place] [facility] AST/SGOT ASPARTATE AMINOTRANS FERASE [ENZYMATIC ACTIVITY/V OLUME] IN SERUM OR PLASMA 22 U/L <34 - 34 04/16 Specimen Type: PLASMA No comment entered. Ordering Provider: HUYEN HYLTON S Report Released Date/Time: Mar 07, 2023 02:00 PM Reporting Lab: [facility] [address] Performing Lab: [facility] [address] [place] [facility] CBC LEUKOCYTES [#/VOLUME] IN BLOOD BY AUTOMATED COUNT 8.06 10*3/uL 4.0 - 11.0 04/16 Specimen Type: BLOOD No comment entered. Ordering Provider: HUYEN HYLTON S Report Released Date/Time: Mar 07, 2023 02:00 PM Reporting Lab: [facility] [address] Performing Lab: [facility] [address] [place] [facility] CBC ERYTHROCYT ES [#/VOLUME] IN BLOOD BY AUTOMATED COUNT 4.03 10*6/uL 4.6 - 6.2 04/16 L Specimen Type: BLOOD No comment entered. Ordering Provider: HUYEN HYLTON S Report Released Date/Time: Mar 07, 2023 02:00 PM Reporting Lab: [facility] [address] Performing Lab: [facility] [address] [place] [facility] CBC HEMOGLOBIN [MASS/VOLU ME] IN BLOOD 13.1 g/dL 13.5 - 17.9 04/16 L Specimen Type: BLOOD No comment entered. Ordering Provider: HUYEN HYLTON S Report Released Date/Time: Mar 07, 2023 02:00 PM Reporting Lab: [facility] [address] Performing Lab: [facility] [address] [place] [facility] CBC HEMATOCRIT [VOLUME FRACTION] OF BLOOD BY AUTOMATED COUNT 38.9 41 - 54 04/16 L Specimen Type: BLOOD No comment entered. Ordering Provider: HUYEN HYLTON Report Released Date/Time: Mar 07, 2023 02:00 PM Reporting Lab: [facility] [address] Performing Lab: [facility] [address] [place] [facility] CBC MCV [ENTITIC VOLUME] BY AUTOMATED COUNT 96.5 fL 80 - 100 04/16 Specimen Type: BLOOD No comment entered. Ordering Provider: HUYEN HYLTON S Report Released Date/Time: Mar 07, 2023 02:00 PM Reporting Lab: [facility] [address] Performing Lab: [facility] [address] [place] [facility] CBC MCH [ENTITIC MASS] BY AUTOMATED COUNT 32.5 pg 27 - 33 04/16 Specimen Type: BLOOD No comment entered. Ordering Provider: HUYEN HYLTON Report Released Date/Time: Mar 07, 2023 02:00 PM Reporting Lab: [facility] [address] Performing Lab: [facility] [address] [place] [facility] CBC MCHC [MASS/VOLU ME] BY AUTOMATED COUNT 33.7 g/dL 32.0 - 37.5 04/16 Specimen Type: BLOOD No comment entered. Ordering Provider: HUYEN HYLTON Report Released Date/Time: Mar 07, 2023 02:00 PM Reporting Lab: [facility] [address] Performing Lab: [facility] [address] [place] [facility] CBC PLATELETS [#/VOLUME] IN BLOOD BY AUTOMATED COUNT 157 10*3/uL 150 - 400 04/16 Specimen Type: BLOOD No comment entered. Ordering Provider: HUYEN HYLTON S Report Released Date/Time: Mar 07, 2023 02:00 PM Reporting Lab: [facility] [address] Performing Lab: [facility] [address] [place] [facility] CBC PLATELET MEAN VOLUME [ENTITIC VOLUME] IN BLOOD BY AUTOMATED COUNT 9.7 fL 7.4 - 10.4 04/16 Specimen Type: BLOOD No comment entered. Ordering Provider: HUYEN HYLTON Report Released Date/Time: Mar 07, 2023 02:00 PM Reporting Lab: [facility] [address] Performing Lab: [facility] [address] [place] [facility] CBC ERYTHROCYT E DISTRIBUTI ON WIDTH [RATIO] BY AUTOMATED COUNT 14.5 11.5 - 14.5 04/16 Specimen Type: BLOOD No comment entered. Ordering Provider: HUYEN HYLTON Report Released Date/Time: Mar 07, 2023 02:00 PM Reporting Lab: [facility] [address] Performing Lab: [facility] [address] [facility] CREATINI NE(INCLU SATHYA EGFR) CREATININE [MASS/VOLU ME] IN SERUM OR PLASMA 1.2 mg/dL 0.7 - 1.2 04/16 Specimen Type: PLASMA No comment entered. Ordering Provider: HUYEN HYLTON Report Released Date/Time: Mar 07, 2023 02:00 PM Reporting Lab: [facility] [address] Performing Lab: [facility] [address] [facility] CREATINI NE(INCLU SATHYA EGFR) GLOMERULAR FILTRATION RATE/1.73 SQ M.PREDICTE D [VOLUME RATE/AREA] IN SERUM, PLASMA OR BLOOD BY CREATININE -BASED FORMULA (CKD-EPI 2020) 62 60 04/16 Specimen Type: PLASMA No comment entered. Ordering Provider: HUYEN HYLTON Report Released Date/Time: Mar 07, 2023 02:00 PM Reporting Lab: [facility] [address] Performing Lab: [facility] [address] [facility] Vital Signs Combined list of inpatient and outpatient Vital Signs from Department of Defense and Veterans Affairs, ranging from 12 months to all on record, depending upon the facility. Vital Sign Value Date Comments Source SYSTOLIC BLOOD PRESSURE 135 07/17/2023 15:03:14 [facility] DIASTOLIC BLOOD PRESSURE 93 07/17/2023 15:03:14 [facility] PULSE OXIMETRY 96 07/17/2023 15:03:14 [place] [facility] WEIGHT 202.7 07/17/2023 15:03:14 [facility] BMI 26kg/m2 07/17/2023 15:03:14 [facility] PAIN 0 07/17/2023 15:03:14 [facility] HEIGHT 74 07/17/2023 15:03:14 [facility] TEMPERATURE 98.1 07/17/2023 15:03:14 [facility] PULSE 82 07/17/2023 15:03:14 [facility] RESPIRATION 16 07/17/2023 15:03:14 [facility] Encounters Combined list of: 1) Encounters from 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 2) Encounters from the Department of Defense facilities going back up to 280 months. Location Location Details Encounter Type Encounter Number Reason For Visit Attending Provider ADM Date DC Date Status Disposition Source [place] [facility] Outpatient Encounter [id number] OLESYA ROGERS 08/12 [facility] [place] [facility] Outpatient Encounter [id number] OLESYA ROGERS 08/[address] [facility] [place] [facility] Outpatient Encounter [id number] Ana CHAUHAN 09/12 [place] [facility] [place] [facility] Outpatient Encounter [id number] 11/06 [place] [facility] [place] [facility] Outpatient Encounter [id number] 12/08 [place] [facility] [place] [facility] Outpatient Encounter [id number] 12/12 [place] [facility] [place] [facility] Outpatient Encounter [id number] 01/17 [place] [facility] [place] [facility] Outpatient Encounter [id number] 02/19 [facility] Outpatient Encounter [id number] 02/[address] [facility] Outpatient Encounter [id number] 03/07 [facility] QNHP OL DIG ASSMT&MGMT 5-10 [id number] Diagnos is: ICD-10- CM Z79.01 correction (curren t) use of anticoa gulants
ELLEN GARCIA 05/29 [facility] OFFICE O/P EST MOD 30 MIN [id number] Diagnos is: ICD-10- CM Z00.01 Encount er for general adult medical exam w abnorma l finding s
Ana CHAUHAN 07/16 [facility] Outpatient Encounter [id number] 07/17 [facility] Social History Combined list of available smoking, tobacco, and other social history from Department of Defense and [facility] Affairs facilities. Social History Type Response Date Comment Sourc e Tobacco smoking status NHIS OR-TOBACCO FORMER USER 07/17/2023 [facility] History of tobacco use OR-TOBACCO QUIT 1 TO < 5 YRS 07/17/2023 [facility] History of tobacco use OR-TOBACCO FORMER USER 08/07/2022 [facility] History of tobacco use OR-TOBACCO FORMER USER 10/16/2020 [facility] History of tobacco use OR-TOBACCO USE CO UNSEL NO 03/29/2019 [facility] History of tobacco use OR-TOBACCO USE WI 30 MIN OF WAKEUP 02/17/2018 [facility] History of tobacco use CURRENT TOBACCO USER 02/12/2017 [facility] History of tobacco use CURRENT TOBACCO USER 04/25/2015 [facility] History of tobacco use CURRENT TOBACCO USER 04/21/2014 [facility] History of tobacco use CURRENT TOBACCO USER 04/20/2013 [facility] History of tobacco use CURRENT TOBACCO USER 03/20/2012 [facility] History of tobacco use CURRENT TOBACCO USER 02/06/2011 [facility] History of tobacco use CURRENT TOBACCO USER 01/02/2010 [facility]
--- OUTSIDE RECORDS SUMMARY | 2024-02-09 12:04 | XMS_ITS | Clinical Summary ---
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 LLE angiogram 2. FISH STRAIGHTENER of huslia peroneal Panlobular emphysema 10/21/2018 COPD exacerbation 09/09/2018 Acute on chronic systolic CHF (congestive heart failure) 09/09/2018 Pulmonary hypertension 11/11/2016 Overview (11/11/2016): Noted on 11/04/16 echo Vitamin D deficiency 03/27/2015 Cardiomyopathy 03/21/2015 Overview (11/11/2016): EF 45-50% on 11/04/16 echo Adenomatous colon polyp 03/05/2012 Overview (03/05/2012): Colonoscopy 02/2012 polyps repeat in 5 years Pulmonary nodules 04/24/2009 Benign neoplasm of colon 12/15/2006 Overview (12/06/2022): Colonoscopy 03/2017 polyp repeat in 5 years [...] Encounters Date Type Department Care Team Description 02/09/2024 Nurse Triage [facility] [address] [place] [address] Klever Monte MD Error-please disregard 02/09/2024 Nurse Triage [facility] [address] [place] [address] [address] Klever Monte MD Urinary Problem from Last 3 Months Immunizations Name Administration [...] 0 11/06/2022 Social Connections Answer Date Recorded Do you often feel lonely or isolated from those around you? 0 08/01/2023 Alcohol Use Answer Date Recorded [...] file 08/01/2023 Food Insecurity Answer Date Recorded Do you worry your food will run out before you are able to buy more? 1 08/01/2023 Transportation Needs Answer Date Record ed Does lack of transportation keep you from medica l appointments? 1 08/01/2023 Does lack of transportation keep you from work, meetings or getting things that you need? 1 08/01/2023 Housing Stability Answer Date Recorded What is your housing situation today? 1 08/01/2023 Sex and Gender Information Value [...] T Respiratory Rate 18 03/17/2023 3:35 PM [employer] Oxygen Saturation 96% 08/04/2023 8:35 AM CDT Inhaled Oxygen Concentration - - Weight 90.7 kg (200 lb) 08/04/2023 8:35 AM CDT Height 190.5 cm (6' 3) 03/17/2023 2:07 PM [employer] Body Mass Index 25 03/17/2023 2:07 PM [employer] Plan of Treatment Health Maintenance Due Date Last Done Comments Low Dose CT (for lung CA) ag e 50-80 08/30/2011 08/29/2010 RSV vaccine for adults or (1 - 1-dose 75+ series) 01/14/2020 BMI (ht and wt on same day) for age 18+ 11/07/2023 11/06/2022, 11/01/2021, 05/16/2021, Additional history exists Medicare Wellness for age 65+ 11/07/2023, 05/16/2021, 10/12/2019, Additional history exists Depression screening for age 12+ 11/09/2023 11/08/2022, 11/06/2022, 11/06/2022, Additional history exists COVID-19 vaccine series (2023- season) 2023 04/24/2022, 08/24/2021, 02/09/2021, Additional history exists Influenza for age 65+ [...] Comments ANTI HCV Routine 05/16/2021 3:20 PM [employer] Need for hepatitis C screening test CT CHEST WO Routine 08/29/2010 4:53 PM CDT Pulmonary nodules from Last 3 Months or Most Recently Relevant to Health Maintenance Results * ANTI HCV (05/16/2021 3:20 PM [employer]) HEPATITIS C ANTIBODY Non-React edelmira Non-React edelmira 05/17/2021 1:21 AM [employer] [facility] Comment:Antibodies to HCV no t detected; does not exclude the possibility of exposure to HCV. Blood BLOOD SPECIMEN / Unknown Venipuncture / Unknown 05/16/2021 3:20 PM [employer] 05/16/2021 3:25 PM [employer] Zak Garcia MD SEND OUTS [facility] [address] [place] [address], [place] * CT CHEST WO CONTRAST (08/29/2010 [...] Comments Code Status Discussion: Discussed Care Teams Mine Foreman Relationship Specialty Start Date End Date Klever [place] [address] [address] [place] [address] PCP - General Family Practice 06/12/22
--- OUTSIDE RECORDS SUMMARY | 2024-02-09 12:04 | XMS_ITS | Clinical Summary ---
Author Organization [facility] [employer] [facility] Address [address] [place] [address] Care Team Providers Care Sprinkler Fitter Name Role Phone Provider, No Attributed RESOURCE Unavailable Unavailable Social History Tobacco Use Types Packs/Day Years Used Date Smoking Tobacco: Never Assessed Sex and Gender Information Value Date Recorded Sex Assigned at Not on file Gender Identity Not on file Sexual Orientation Not on file Plan of Treatment Not on file Care Teams Sprinkler Fitter Relationship Specialty Start Date End Date Provider, No Attributed, RESOURCE [address] PCP - Attributed Provider 07/30/18
== END 2024-02-09 12:00 | disposition home or self-care (01) ==
LOC: NFLDUCREF 12:02
PROVIDERS: Visit Provider Nurse Practitioner Family
DX: R30.0 Dysuria (principal)
CPT/HCPCS: 87086

== ENCOUNTER 2024-04-05 10:16 | Inpatient (IN) | payer OTHER, SELFPAY ==
[2024-04-05] VITALS (12 sets, daily range): BP systolic 110–131; BP diastolic 71–97; PULSE 81–111; RESP 18–22; TEMP 36.6–37; O2SAT 87–921; BMI 25.0; BMI 24.6
--- OUTSIDE RECORDS SUMMARY | 2024-04-05 10:19 | XMS_ITS | Encounter Summary ---
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 [facility] Address [address] [place] [address] Care Team Providers Care Animal Services Officer Name Role Phone OZ HAWKINS Primary Care Provider Unavailabl e Insurance Providers: All historical and current Section [...] Name Patient's Relationship to Policy Kevin OPHELIA VILLAR[facility]AL [facility] ([facility]) [facility] [id number] Jan 05, 2010 [id number] [employer] ANUSHA DE PAZ PATIENT MEDICARE (WN) MEDICARE (M) PART A Jan 05, 2010 PART A [id number] [phone] ANUSHA DE PAZ PATIENT MEDICARE (WNR) MEDICARE (M) PART B Jan 05, 2010 PART B [id number] [phone] ZANDRA ANUSHA PATIENT MEDICARE (WNR) MEDICARE (M) PART A Jan 05, 2010 PART A [id number] ANUSHA DE PAZ PATIENT MEDICARE (WNR) MEDICARE (M) PART A Jan 05, 2010 PART A [id number] [phone] ZANDRA ANUSHA PATIENT MEDICARE (WNR) MEDICARE (M) PART B Jan 05, 2010 PART B [id number] [facility] [phone] ANUSHA DE PAZ PATIENT Selected Encounter This section includes the information on record at [place] for the Encounter. Date/Time Encounter Type Encounter Description Reason Pro vider Source Apr 05, 2024 09:36 AM Outpatient Encounter TELEPHONE TRIAGE IHE Encounter Template Text not used by [facility] Social History: Smoking Status (Most current) and Tobacco Use (All prior to encounter date) This section includes the most current, and the historical, smoking and tobacco- related health factors from the [place] facility where the Encounter took place. Current Smoking Status This section includes the most current smoking, or tobacco-related health factor, from the [place] facility where the Encounter took place. Date/Time Current Smoking Status Comment Facil ity Jul 17, 2023 03:00 PM VA-TOBACCO FORMER USER [facility] Tobacco Use History This section includes a history of the smoking, or tobacco-related health factors, that were collected on or before the date of the Encounter. The data comes from the [place] facility where the Encounter took place. Date/Time Smoking Status/Tobacco Use Comment F acility Jul 17, 2023 03:00 PM VA-TOBACCO QUIT 1 TO < 5 YRS [facility] August 07, 2022 01:30 PM VA-TOBACCO FORMER USER [facility] August 07, 2022 01:30 PM VA-TOBACCO QUIT 1 TO < 5 YRS [facility] Oct 16, 2020 02:45 PM VA-TOBACCO FORMER USER [facility] Oct 16, 2020 02:45 PM VA-TOBACCO QUIT 15 YRS OR MORE [facility] Mar 29, 2019 10:59 AM VA-TOBACCO USE > 1 5 LESS THAN 30 YEARS [facility] Mar 29, 2019 10:59 AM VA-TOBACCO USE ADVICE [facility] Mar 29, 2019 10:59 AM VA-TOBACCO USE FIRE HAZARD INSPECTOR NO [facility] Mar 29, 2019 10:59 AM VA-TOBACCO USE MED NO [facility] Mar 29, 2019 10:59 AM VA-TOBACCO USE WI 30 MIN OF WAKE UP [facility] Mar 29, 2019 10:59 AM VA-TOBACCO USER EVERY DAY [facility] Feb 17, 2018 03:39 PM VA-TOBACCO USE 30 YEARS OR MORE [facility] Feb 17, 2018 03:39 PM VA-TOBACCO USE ADVICE [facility] Feb 17, 2018 03:39 PM VA-TOBACCO USE FIRE HAZARD INSPECTOR NO [facility] Feb 17, 2018 03:39 PM VA-TOBACCO USE MED NO [facility] Feb 17, 2018 03:39 PM VA-TOBACCO USE WI 30 MIN OF WAKE UP [facility] Feb 17, 2018 03:39 PM VA-TOBACCO USER EVERY DAY [facility] Feb 12, 2017 12:38 PM CURRENT TOBACCO USER [facility] Apr 25, 2015 07:50 AM CURRENT TOBACCO USER [facility] Apr 21, 2014 08:25 AM CURRENT TOBACCO USER [facility] Apr 20, 2013 10:04 AM CURRENT TOBACCO USER [facility] Mar 20, 2012 09:53 AM CURRENT TOBACCO USER [facility] Feb 06, 2011 09:44 AM CURRENT TOBACCO USER [facility] Jan 02, 2010 09:22 AM CURRENT TOBACCO USER [facility] Encounter Notes: All associated encounter notes This section contains the clinical notes associated to the Encounter. Date/Time Encounter Note(s) Provider Source Apr 05, 2024 09:36 AM RN PROGRESS NOTE: LOCAL TITLE: CCC: CLINICAL TRIAGE STANDARD TITLE: RN PROGRESS NOTE DATE OF NOTE: APR 05, 2024@09:36:37 ENTRY DATE: APR 05, 2024@09:36:37 AUTHOR: NIR YOON COSIGNER: URGENCY: STATUS: COMPLETED Patient Demographics Patient Name: ANUSHA DE PAZ Patient Primary Address: [address] [place] [address] Patient Primary Phone: [phone] Patient : 1945 Patient Age: 79 Caller/Recipient Relation to Patient: Self Caller Name: ANUSHA DE PAZ Emergency Contact: JAVIER DE PAZ Triage Summary Conducted triage/discussed symptoms Utilized the Triage Tool: Yes Chief Complaint: Shortness Of Breath (wheezing) System WHEN: Now Nurse's Recommendation / WHEN: Within 24 Hours System WHERE: Emergency department Nurse's Recommendation / WHERE: [facility] Patient Disposition Patient/Caregiver agrees to plan of care: Yes Patient WHERE: Clinic/[facility] Patient WHEN: Within 24 hours Nursing Plan and Disposition Referred Patient for In-Person Appt No appt avail Advised Emergency Care Referred patient to higher level of care Advised of Financial Disclaimer: Patient advised that recommendation for care provided during the call does not constitute an approval or authorization for payment by the [place] or its staff. Patient advised to report a community ED visit to the [facility] at within 72 hours. Nurse Summary Nurse Summary: PATIENT CONCERN/DURATION/ONSET: Imelda c/o shortness of breath x 1 week. Reports he will wake up at night gasping for air then that starts it and he will not sleep well after. States he is also getting shortness of breath with walking. Reports he use to walk a mile a day and now has a hard time getting close to that. States he gets wheezing, and shortness of breath with walking short distances even around his house. Reports he gets weakness with shortness of breath. No shortness of breath at rest. [place] was heard walking in his house and no audible shortness of breath was hear and no changes in speech. Reports he had a fall 1 month ago and has no clue why, states he had no shortness of breath at the time. Denies recent illness, cough, swelling, and chest pain. WHAT HAS PATIENT TRIED TO TREAT THE SYMPTOMS: Albuterol not helping as much as it use to HISTORY/PREVIOUS TREATMENT: Atrial fibrillation, COPD, previous smoker WHAT IS PATIENT GOAL FOR THE CALL: Advice Was Virtual Care Visit considered (TELE or VVC)? 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 Call to scheduled with no openings available today, imelda prefers appointment today. [place] asks about going to local ER since that is closer to him and he would prefer to be seen there. [place] advised he has [facility] full insurance for everything, but medications. Advised he can be seen in the local ER and would just need to call the ER notification line within 72 hours of being seen as there is no authorization or guarantee of payment before being seen. [place] states he will go to the Local ER Now. Best contact for Imelda is . This note was created by a [facility] RN. Please do not alert this nurse by adding as a signer for future communications. Alerts are not monitored by this user, please reach out to [facility] Leadership instead if indicated. Clinical Contact Center Codes Clinic/Location: [facility] PHONE CCC RN Decision Support System Output: Triage Complete Triage Date: 04/05/2024, 09:09 AM Triage Note: Decision Support Tool Used: [facility] Phone Triage 05 Apr 2024 14:48:21 +0000 [facility] Demographics 79 y/o Male Results CC: Shortness Of Breath (wheezing) Software suggested: Now Software suggested follow-up location: Emergency department Values and Measures Duration of CC: 1 Weeks Positive Responses HPI: weakness, with dyspnea HPI: wheezing, within past 3 days PMH: angina PMH: COPD Negative Responses Denies: HPI: arm pain, with dyspnea Denies: HPI: diaphoresis, with dyspnea Denies: HPI: dyspnea, over the past hour, worsening Denies: HPI: jaw pain, with dyspnea Denies: HPI: nausea or vomiting, with dyspnea Denies: HPI: symptoms similar to past angina Denies: HPI: syncope, with dyspnea Denies: HPI: wheezing, within past hour Denies: PMH: asthma Denies: PMH: heart attack IMPORTANT: This note was created by [facility] Clinical Contact Center staff. Please do not alert the staff member by adding them as a signer for future communications. Alerts are not monitored by this user. 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
--- OUTSIDE RECORDS SUMMARY | 2024-04-05 10:19 | XMS_ITS | Continuity of Care Document ---
Author Name [facility] Organization [facility] Care Team Providers Care Delinquent Account Clerk Name Role Phone [facility] Unavailable Unavailable Problems Combined list of problems from Department of Defense and Veterans Affairs facilities. It does not include entries that were removed or entered in error. Problem Status Onset Date Problem Type Date of Resolution Comments Source CVD - Cerebrovascular Disease ([facility] 25029954) Active 03/19/20 20 Condition May 01, 2020 Entered By: YOAV CHAUHAN Comment: 03/19/20: L MCA CVA, Admit ANW. Cardio-embol ic d/t Warfarin DC [facility] CAD - Coronary Artery Disease ([facility] 78755986) Active 01/27/20 20 Condition Mar 13, 2020 Entered By: YOAV CHAUHAN Comment: 01/27/20: LAD and Dx stented w/SATHYA at [facility]. Plavix +ASA thru 01/26/21 [facility] Peripheral arterial insufficiency Active 01/21/20 20 Condition Mar 13, 2020 Entered By: YOAV CHAUHAN Comment: 01/21/20: L femoral Art occlusion per [facility]-->Fem -Tibial bypass planned [facility] Allergic rhinitis (SNOMED CT 45870191) Active Condition [facility] Atrial fibrillation (SNOMED CT 38019782) Active Condition Apr 26, 2015 Entered By: YOAV CHAUHAN Comment: Warfarin through Miryam Rodriguez [facility] Co-Managed Care Active Condition Dec 25, 2017 Entered By: YOAV CHAUHAN Comment: Dr Garcia, Michael Albers, F: [phone] , [facility] COPD - Chronic Obstructive Pulmonary Disease ([facility] 47639522) Active Condition Dec 25, 2017 Entered By: YOAV CHAUHAN Comment: Mometasone & Albuterol MDI's [facility] Cascade of toe Active Condition Sep 08, 2019 Entered By: YOAV CHAUHAN Comment: R middle toe [facility] Current smoker Active Condition Apr 082015 Entered By: YOAV CHAUHAN Comment: Cigars, not cigarettes [facility] Essential hypertension (SNOMED CT 95093803) Active Condition [facility] Glucose intolerance Active Condition [facility] Nocturia due to benign prostatic hypertrophy Active Condition [facility] Health Maintenance (ICD-9-CM V65.9) Inactive Condition [facility] Diagnosis: ICD-10-CM Z00.01 Encounter for general adult medical exam w abnormal findings Active Diagnosis [facility] Diagnosis: ICD-10-CM Z79.01 halfway (current) use of anticoagulants Active Diagnosis [facility] Medications Combined list of outpatient medications [...] BREATH RESPIR ATORY (INHAL ATION) ACTIVE 07/17/2024 [id number] 4 AFRICA CHAUHAN 2023 2 [facility] APIXABAN 5MG TAB TAKE ONE TABLET BY MOUTH EVERY 12 HOURS TO PREVENT BLOOD CLOTS AND STROKE (ELIQUIS ) ORAL ACTIVE 05/29/2024 [id number] 4 MARIANO GARCIA 2023 180 [facility] APIXABAN 5MG TAB TAKE ONE TABLET BY MOUTH EVERY 12 HOURS TO PREVENT BLOOD CLOTS AND STROKE (ELIQUIS ) ORAL DISCONT INUED 05/09/2023 [id number] 3 MARIANO GARCIA 2022 180 [facility] CHOLECALCIF JONNA 25MCG (1,000UNIT) TAB TAKE FIVE TABLETS BY MOUTH QOD ORAL ACTIVE AFRICA CHAUHAN 2016 [facility] FLUTICASONE 250MCG/SALM ETEROL 50MCG INHL,ORAL,D ISKUS,60 INHALE 1 PUFF BY INHALATI ON TWICE A DAY FOR COPD RESPIR ATORY (INHAL ATION) ACTIVE 07/17/2024 [id number] 4 AFRICA CHAUHAN 2023 3 [facility] FLUTICASONE 250MCG/SALM ETEROL 50MCG INHL,ORAL,D ISKUS,60 INHALE 1 PUFF BY INHALATI ON TWICE A DAY FOR COPD THIS REPLACES YOUR MOMETASO NE RESPIR ATORY (INHAL ATION) DISCONT INUED 08/08/2023 [id number] 4 AFRICA CHAUHAN 2022 3 [place] [facility] FUROSEMIDE 20MG TAB TAKE ONE TABLET BY MOUTH THREE TIMES A WEEK FOR HEART FAILURE ORAL ACTIVE 03/18/2025 [id number] 4 BEATRIZ HAWKINS 2023 39 [facility] FUROSEMIDE 20MG TAB TAKE ONE TABLET BY MOUTH THREE TIMES A WEEK FOR HEART FAILURE ORAL DISCONT INUED 02/25/2024 [id number] 3 Hong DONAHUE A 2022 39 [facility] METOPROLOL TARTRATE 100MG TAB TAKE ONE TABLET BY MOUTH TWICE A DAY FOR BLOOD PRESSURE ORAL ACTIVE 12/23/2024 [id number] 4 AFRICA CHAUHAN 2023 180 [place] [facility] METOPROLOL TARTRATE 100MG TAB TAKE ONE TABLET BY MOUTH TWICE A DAY FOR BLOOD PRESSURE ORAL DISCONT INUED 12/13/2023 [id number] 4 AFRICA CHAUHAN 2022 180 [place] NIFEDIPINE (EQV-CC) 60MG TAB,SA TAKE ONE TABLET BY MOUTH EVERY DAY FOR BLOOD PRESSURE ORAL DISCONT INUED BY PROVIDE R 08/08/2023 [id number] 3 AFRICA CHAUHAN 2022 90 [place] [facility] NIFEDIPINE (EQV-CC) 90MG TAB,SA TAKE ONE TABLET BY MOUTH EVERY DAY FOR BLOOD PRESSURE ORAL ACTIVE 07/17/2024 [id number] 4 AFRICA CHAUHAN 2023 90 [facility] NIFEDIPINE (EQV-CC) 90MG TAB,SA TAKE ONE TABLET BY MOUTH EVERY DAY FOR BLOOD PRESSURE INCREASE D DOSE PER CO-MANAG ED CARE INCREASE D DOSE PER CO-MANAG ED CARE ORAL DISCONT INUED 12/13/2023 [id number] 4 AFRICA CHAUHAN 2022 90 [facility] POTASSIUM CHLORIDE 10MEQ TAB,SA TAKE ONE TABLET BY MOUTH THREE TIMES A WEEK FOR POTASSIU M SUPPLEME NT TAKE WITH FUROSEMI DE ORAL 02/25/2024 [id number] 3 Hong DONAHUEKA A 2022 39 [facility] ROSUVASTATI N CA 20MG TAB TAKE ONE TABLET BY MOUTH AT BEDTIME FOR CORONARY ARTERY DISEASE ORAL ACTIVE 07/17/2024 [id number] 4 AFRICA CHAUHAN 2023 90 [facility] ROSUVASTATI N CA 20MG TAB TAKE ONE TABLET BY MOUTH AT BEDTIME FOR CORONARY ARTERY DISEASE ORAL DISCONT INUED 08/08/2023 [id number] 4 AFRICA CHAUHAN 2022 90 [facility] TAMSULOSIN HCL 0.4MG CAP TAKE ONE CAPSULE BY MOUTH EVERY EVENING FOR PROSTATE ORAL ACTIVE 07/17/2024 [id number] 4 AFRICA CHAUHAN 2023 30 [facility] Allergies, Adverse Reactions, Alerts Combined list of allergies from Department of Defense and Veterans Affairs facilities. It does not include entries that were removed or entered in error. Substance Category Reaction Severity Reaction type Status Date Reported Comments Source LISINOPRIL Propensity to adverse reactions to drug (finding) Cough active 0 [facility] Immunizations Combined list of available immunizations from the Department of Defense and Veterans Affairs facilities. Immunization Series Date Given Administered By Site Reaction Lot Number CVX Code Drug Parking Assistant Status Comments Source COVID-19 ([employer]), MRNA, LNP-S, BIVALENT, PF, 30 MCG/0.3 ML DOSE 2022 300 complet ed [facility] COVID-19 ([employer]), MRNA, LNP-S, PF, 30 MCG/0.3 ML DOSE, JAMES-SUCROSE (AGES 12+ YEARS) 2021 217 complet ed [facility] COVID-19 ([employer]), MRNA, LNP-S, PF, 30 MCG/0.3 ML DOSE 2020 208 complet ed [facility] ZOSTER RECOMBINANT 2 2020 187 complet ed [facility] INFLUENZA VACCINE, QUADRIVALENT, ADJUVANTED 2020 205 complet [facility] INFLUENZA, UNSPECIFIED FORMULATION 2020 88 complet ed [facility] ZOSTER RECOMBINANT 1 2020 187 complet ed [facility] COVID-19 ([employer]), MRNA, LNP-S, PF, 30 MCG/0.3 ML DOSE 2 2020 208 complet ed [facility] COVID-19 ([employer]), MRNA, LNP-S, PF, 30 MCG/0.3 ML DOSE 1 2020 208 complet ed [facility] INFLUENZA VACCINE, QUADRIVALENT, ADJUVANTED 2019 205 complet ed [facility] INFLUENZA, TRIVALENT, ADJUVANTED 2018 168 complet ed [facility] INFLUENZA, SEASONAL, INJECTABLE 2018 141 complet ed [facility] INFLUENZA, SEASONAL, INJECTABLE 2017 141 complet ed [facility] INFLUENZA, TRIVALENT, ADJUVANTED 2017 168 complet ed [facility] INFLUENZA, HIGH DOSE SEASONAL 2016 135 complet ed [facility] PNEUMOCOCCAL POLYSACCHARID E PPV23 2016 33 complet ed [employer] , [id number], 06/03/18 [facility] TD (ADULT), 2 LF TETANUS TOXOID, PRESERVATIVE FREE, ADSORBED 2016 09 complet ed [employer] [id number], 12/19/18 [facility] INFLUENZA, HIGH DOSE SEASONAL 2016 135 complet ed [facility] PNEUMOCOCCAL POLYSACCHARID E PPV23 2016 33 complet ed [facility] INFLUENZA, HIGH DOSE SEASONAL 2015 135 complet ed [facility] PNEUMOCOCCAL CONJUGATE PCV 13 2015 133 complet ed [employer] [facility] PNEUMOCOCCAL CONJUGATE PCV 13 2014 133 complet ed [facility] INFLUENZA, UNSPECIFIED FORMULATION 2013 88 complet ed [facility] INFLUENZA, UNSPECIFIED FORMULATION 2013 88 complet ed [facility] INFLUENZA, UNSPECIFIED FORMULATION 2011 88 complet ed [facility] INFLUENZA, UNSPECIFIED FORMULATION 2010 88 complet ed [facility] PNEUMOCOCCAL, UNSPECIFIED FORMULATION 2009 109 complet ed [employer],093 02, 011 [facility] TDAP 2009 115 complet ed [facility] ZOSTER LIVE 2008 121 complet ed [facility] TDAP 2007 115 complet ed private [facility] ZOSTER LIVE 2006 121 complet ed [facility] Results Combined list of recent chemistry, hematology [...] 04:23 PM Reporting Lab: [facility] [address] Performing Lab: [facility] [address] [facility] URINALYS IS SPECIFIC GRAVITY OF URINE 1.006 1.003 - 1.035 07/16 Specimen Type: URINE No comment entered. Ordering Provider: TERRENCE CHAUHAN Report Released Date/Time: Jul 17, 2023 04:23 PM Reporting Lab: [facility] [address] Performing Lab: [facility] [address] [facility] URINALYS IS BILIRUBIN. TOTAL [PRESENCE] IN URINE BY TEST STRIP NEGATIVE 07/16 Specimen Type: URINE No comment entered. Ordering Provider: TERRENCE CHAUHAN Report Released Date/Time: Jul 17, 2023 04:23 PM Reporting Lab: [facility] [address] Performing Lab: [place] [address] [place] [facility] URINALYS IS KETONES [MASS/VOLU ME] IN URINE BY TEST STRIP NEGATIVE 07/16 Specimen Type: URINE No comment entered. Ordering Provider: TERRENCE CHAUHAN Report Released Date/Time: Jul 17, 2023 04:23 PM Reporting Lab: [facility] [address] Performing Lab: [facility] [address] [place] [facility] URINALYS IS GLUCOSE [MASS/VOLU ME] IN URINE BY TEST STRIP NEGATIVE mg/dL 07/16 Specimen Type: URINE No comment entered. Ordering Provider: TERRENCE CHAUHAN Report Released Date/Time: Jul 17, 2023 04:23 PM Reporting Lab: [facility] [address] Performing Lab: [facility] [address] [place] [facility] URINALYS IS PROTEIN [MASS/VOLU ME] IN URINE BY TEST STRIP NEGATIVE mg/dL 07/16 Specimen Type: URINE No comment entered. Ordering Provider: TERRENCE CHAUHAN Report Released Date/Time: Jul 17, 2023 04:23 PM Reporting Lab: [facility] [address] Performing Lab: [facility] [address] [place] [facility] URINALYS IS PH OF URINE BY TEST STRIP 7.0 5.0 - 8.0 07/16 Specimen Type: URINE No comment entered. Ordering Provider: TERRENCE CHAUHAN Report Released Date/Time: Jul 17, 2023 04:23 PM Reporting Lab: [facility] [address] Performing Lab: [place] [address] [place] [facility] URINALYS IS LEUKOCYTES [#/AREA] IN URINE SEDIMENT BY MICROSCOPY HIGH POWER FIELD <1/[HPF] 0 - 7 07/16 Specimen Type: URINE No comment entered. Ordering Provider: TERRENCE CHAUHAN Report Released Date/Time: Jul 17, 2023 04:23 PM Reporting Lab: [facility] [address] Performing Lab: [facility] [address] [place] [facility] URINALYS IS BACTERIA [PRESENCE] IN URINE SEDIMENT BY LIGHT MICROSCOPY NONE SEEN 07/16 Specimen Type: URINE No comment entered. Ordering Provider: TERRENCE CHAUHAN Report Released Date/Time: Jul 17, 2023 04:23 PM Reporting Lab: [facility] [address] Performing Lab: [facility] [address] [place] [facility] URINALYS IS ERYTHROCYT ES [#/AREA] IN URINE SEDIMENT BY MICROSCOPY HIGH POWER FIELD <1/[HPF] 0 - 3 07/16 Specimen Type: URINE No comment entered. Ordering Provider: TERRENCE CHAUHAN Report Released Date/Time: Jul 17, 2023 04:23 PM Reporting Lab: [facility] [address] Performing Lab: [facility] [address] [place] [facility] URINALYS IS APPEARANCE OF URINE CLEAR 07/16 Specimen Type: URINE No comment entered. Ordering Provider: TERRENCE CHAUHAN Report Released Date/Time: Jul 17, 2023 04:23 PM Reporting Lab: [facility] [address] Performing Lab: [facility] [address] [place] [facility] URINALYS IS EPITHELIAL CELLS.SQUA MOUS [#/AREA] IN URINE SEDIMENT BY MICROSCOPY HIGH POWER FIELD NONE SEEN/[HP F] 07/16 Specimen Type: URINE No comment entered. Ordering Provider: TERRENCE CHAUHAN Report Released Date/Time: Jul 17, 2023 04:23 PM Reporting Lab: [facility] [address] Performing Lab: [facility] [address] [place] [facility] URINALYS IS HEMOGLOBIN [PRESENCE] IN URINE BY TEST STRIP NEGATIVE 07/16 Specimen Type: URINE No comment entered. Ordering Provider: TERRENCE CHAUHAN Report Released Date/Time: Jul 17, 2023 04:23 PM Reporting Lab: [facility] [address] Performing Lab: [facility] [address] [facility] URINALYS IS NITRITE [PRESENCE] IN URINE BY TEST STRIP NEGATIVE 07/16 Specimen Type: URINE No comment entered. Ordering Provider: TERRENCE CHAUHAN Report Released Date/Time: Jul 17, 2023 04:23 PM Reporting Lab: [facility] [address] Performing Lab: [facility] [address] [facility] URINALYS IS LEUKOCYTE ESTERASE [PRESENCE] IN URINE BY TEST STRIP NEGATIVE 07/16 Specimen Type: URINE No comment entered. Ordering Provider: TERRENCE CHAUHAN Report Released Date/Time: Jul 17, 2023 04:23 PM Reporting Lab: [facility] [address] Performing Lab: [facility] [address] [facility] HEMOGLOB IN A1C HEMOGLOBIN [...] 02:21 PM Reporting Lab: [facility] [address] Performing Lab: [facility] [address] [facility] BASIC METABOLI C PANEL+MG CREATININE [MASS/VOLU ME] IN SERUM OR PLASMA 1.3 mg/dL 0.7 - 1.2 07/16 H Specimen Type: PLASMA No comment entered. Ordering Provider: TERRENCE CHAUHAN Report Released Date/Time: August 07, 2022 02:21 PM Reporting Lab: [facility] [address] Performing Lab: [facility] [address] [place] [facility] BASIC METABOLI C PANEL+MG UREA NITROGEN [MASS/VOLU ME] IN SERUM OR PLASMA 15 mg/dL 8 - 26 07/16 Specimen Type: PLASMA No comment entered. Ordering Provider: TERRENCE CHAUHAN Report Released Date/Time: August 07, 2022 02:21 PM Reporting Lab: [facility] [address] Performing Lab: [facility] [address] [place] [facility] BASIC METABOLI C PANEL+MG GLUCOSE [MASS/VOLU ME] IN SERUM OR PLASMA 84 mg/dL 70 - 100 07/16 Specimen Type: PLASMA No comment entered. Ordering Provider: TERRENCE CHAUHAN Report Released Date/Time: August 07, 2022 02:21 PM Reporting Lab: [facility] [address] Performing Lab: [facility] [address] [place] [facility] BASIC METABOLI C PANEL+MG SODIUM [MOLES/VOL UME] IN SERUM OR PLASMA 137 mmol/L 136 - 145 07/16 Specimen Type: PLASMA No comment entered. Ordering Provider: TERRENCE CHAUHAN Report Released Date/Time: August 07, 2022 02:21 PM Reporting Lab: [facility] [address] Performing Lab: [facility] [address] [place] [facility] BASIC METABOLI C PANEL+MG POTASSIUM [MOLES/VOL UME] IN SERUM OR PLASMA 4.6 mmol/L 3.5 - 5.1 07/16 Specimen Type: PLASMA No comment entered. Ordering Provider: TERRENCE CHAUHAN Report Released Date/Time: August 07, 2022 02:21 PM Reporting Lab: [facility] [address] Performing Lab: [facility] [address] [place] [facility] BASIC METABOLI C PANEL+MG CHLORIDE [MOLES/VOL UME] IN SERUM OR PLASMA 105 mmol/L 98 - 107 07/16 Specimen Type: PLASMA No comment entered. Ordering Provider: TERRENCE CHAUHAN Report Released Date/Time: August 07, 2022 02:21 PM Reporting Lab: [facility] [address] Performing Lab: [facility] [address] [place] [facility] BASIC METABOLI C PANEL+MG CARBON DIOXIDE, TOTAL [MOLES/VOL UME] IN SERUM OR PLASMA 24 mmol/L 22 - 29 07/16 Specimen Type: PLASMA No comment entered. Ordering Provider: TERRENCE CHAUHAN Report Released Date/Time: August 07, 2022 02:21 PM Reporting Lab: [facility] [address] Performing Lab: [facility] [address] [place] [facility] BASIC METABOLI C PANEL+MG CALCIUM [MASS/VOLU ME] IN SERUM OR PLASMA 8.9 mg/dL 8.4 - 10.2 07/16 Specimen Type: PLASMA No comment entered. Ordering Provider: TERRENCE CHAUHAN Report Released Date/Time: August 07, 2022 02:21 PM Reporting Lab: [facility] [address] Performing Lab: [facility] [address] [place] [facility] BASIC METABOLI C PANEL+MG MAGNESIUM [MASS/VOLU ME] IN SERUM OR PLASMA 2.1 mg/dL 1.6 - 2.6 07/16 Specimen Type: PLASMA No comment entered. Ordering Provider: TERRENCE CHAUHAN Report Released Date/Time: August 07, 2022 02:21 PM Reporting Lab: [facility] [address] Performing Lab: [facility] [address] [place] [facility] BASIC METABOLI C PANEL+MG ANION GAP IN SERUM OR PLASMA 8 mmol/L 5 - 15 07/16 Specimen Type: PLASMA No comment entered. Ordering Provider: TERRENCE CHAUHAN Report Released Date/Time: August 07, 2022 02:21 PM Reporting Lab: [facility] [address] Performing Lab: [facility] [address] [place] [facility] BASIC METABOLI C PANEL+MG GLOMERULAR FILTRATION RATE/1.73 SQ M.PREDICTE D [VOLUME RATE/AREA] IN SERUM, PLASMA OR BLOOD BY CREATININE -BASED FORMULA (CKD-EPI 2020) 56 60 07/16 L Specimen Type: PLASMA No comment entered. Ordering Provider: TERRENCE CHAUHAN Report Released Date/Time: August 07, 2022 02:21 PM Reporting Lab: [facility] [address] Performing Lab: [facility] [address] [place] [facility] CBC LEUKOCYTES [#/VOLUME] IN BLOOD BY AUTOMATED COUNT 8.72 10*3/uL 4.0 - 11.0 07/16 Specimen Type: BLOOD No comment entered. Ordering Provider: TERRENCE CHAUHAN Report Released Date/Time: August 07, 2022 02:21 PM Reporting Lab: [facility] [address] Performing Lab: [facility] [address] [place] [facility] CBC ERYTHROCYT ES [#/VOLUME] IN BLOOD BY AUTOMATED COUNT 4.11 10*6/uL 4.6 - 6.2 07/16 L Specimen Type: BLOOD No comment entered. Ordering Provider: TERRENCE CHAUHAN Report Released Date/Time: August 07, 2022 02:21 PM Reporting Lab: [facility] [address] Performing Lab: [facility] [address] [place] [facility] CBC HEMOGLOBIN [MASS/VOLU ME] IN BLOOD 13.4 g/dL 13.5 - 17.9 07/16 L Specimen Type: BLOOD No comment entered. Ordering Provider: TERRENCE CHAUHAN Report Released Date/Time: August 07, 2022 02:21 PM Reporting Lab: [facility] [address] Performing Lab: [facility] [address] [place] [facility] CBC HEMATOCRIT [VOLUME FRACTION] OF BLOOD BY AUTOMATED COUNT 39.7 41 - 54 07/16 L Specimen Type: BLOOD No comment entered. Ordering Provider: TERRENCE CHAUHAN Report Released Date/Time: August 07, 2022 02:21 PM Reporting Lab: [facility] [address] Performing Lab: [facility] [address] [place] [facility] CBC MCV [ENTITIC VOLUME] BY AUTOMATED COUNT 96.6 fL 80 - 100 07/16 Specimen Type: BLOOD No comment entered. Ordering Provider: TERRENCE CHAUHAN Report Released Date/Time: August 07, 2022 02:21 PM Reporting Lab: [facility] [address] Performing Lab: [facility] [address] [place] [facility] CBC MCH [ENTITIC MASS] BY AUTOMATED COUNT 32.6 pg 27 - 33 07/16 Specimen Type: BLOOD No comment entered. Ordering Provider: TERRENCE CHAUHAN Report Released Date/Time: August 07, 2022 02:21 PM Reporting Lab: [facility] [address] Performing Lab: [facility] [address] [place] [facility] CBC MCHC [MASS/VOLU ME] BY AUTOMATED COUNT 33.8 g/dL 32.0 - 37.5 07/16 Specimen Type: BLOOD No comment entered. Ordering Provider: TERRENCE CHAUHAN Report Released Date/Time: August 07, 2022 02:21 PM Reporting Lab: [facility] [address] Performing Lab: [facility] [address] [place] [facility] CBC PLATELETS [#/VOLUME] IN BLOOD BY AUTOMATED COUNT 159 10*3/uL 150 - 400 07/16 Specimen Type: BLOOD No comment entered. Ordering Provider: TERRENCE CHAUHAN Report Released Date/Time: August 07, 2022 02:21 PM Reporting Lab: [facility] [address] Performing Lab: [facility] [address] [place] [facility] CBC PLATELET MEAN VOLUME [ENTITIC VOLUME] IN BLOOD BY AUTOMATED COUNT 9.6 fL 7.4 - 10.4 07/16 Specimen Type: BLOOD No comment entered. Ordering Provider: TERRENCE CHAUHAN Report Released Date/Time: August 07, 2022 02:21 PM Reporting Lab: [facility] [address] Performing Lab: [facility] [address] [place] [facility] CBC ERYTHROCYT E DISTRIBUTI ON WIDTH [RATIO] BY AUTOMATED COUNT 14.1 11.5 - 14.5 07/16 Specimen Type: BLOOD No comment entered. Ordering Provider: TERRENCE CHAUHAN Report Released Date/Time: August 07, 2022 02:21 PM Reporting Lab: [facility] [address] Performing Lab: [facility] [address] [place] [facility] LIVER FUNCTION TESTS BILIRUBIN. TOTAL [MASS/VOLU ME] IN SERUM OR PLASMA 0.8 mg/dL 0.2 - 1.2 07/16 Specimen Type: PLASMA No comment entered. Ordering Provider: TERRENCE CHAUHAN Report Released Date/Time: August 07, 2022 02:21 PM Reporting Lab: [facility] [id number] Performing Lab: [facility] [address] [place] [facility] LIVER FUNCTION TESTS ALKALINE PHOSPHATAS E [ENZYMATIC ACTIVITY/V OLUME] IN SERUM OR PLASMA 52 U/L 40 - 150 07/16 Specimen Type: PLASMA No comment entered. Ordering Provider: TERRENCE CHAUHAN Report Released Date/Time: August 07, 2022 02:21 PM Reporting Lab: [facility] [id number] Performing Lab: [facility] [address] [place] [facility] LIVER FUNCTION TESTS ALANINE AMINOTRANS FERASE [ENZYMATIC ACTIVITY/V OLUME] IN SERUM OR PLASMA 20 U/L <55 - 55 07/16 Specimen Type: PLASMA No comment entered. Ordering Provider: TERRENCE CHAUHAN Report Released Date/Time: August 07, 2022 02:21 PM Reporting Lab: [facility] [address] Performing Lab: [facility] [address] [place] [facility] LIVER FUNCTION TESTS ASPARTATE AMINOTRANS FERASE [ENZYMATIC ACTIVITY/V OLUME] IN SERUM OR PLASMA 19 U/L <34 - 34 07/16 Specimen Type: PLASMA No comment entered. Ordering Provider: TERRENCE CHAUHAN Report Released Date/Time: August 07, 2022 02:21 PM Reporting Lab: [facility] [address] Performing Lab: [place] [address] [place] [facility] LIVER FUNCTION TESTS GAMMA GLUTAMYL TRANSFERAS E [ENZYMATIC ACTIVITY/V OLUME] IN SERUM OR PLASMA 38 U/L <64 - 64 07/16 Specimen Type: PLASMA No comment entered. Ordering Provider: TERRENCE CHAUHAN Report Released Date/Time: August 07, 2022 02:21 PM Reporting Lab: [place] [id number] Performing Lab: [place] [id number] [place] [facility] [facility] PSA PROSTATE SPECIFIC AG [MASS/VOLU ME] IN SERUM OR PLASMA 3.84 ng/mL <4.00 - 4.00 07/16 Specimen Type: SERUM No comment entered. Ordering Provider: TERRENCE CHAUHAN Report Released Date/Time: August 07, 2022 02:21 PM Reporting Lab: [place] [address] Performing Lab: [place] [address] [facility] CREATINI NE(INCLU SATHYA EGFR) CREATININE [MASS/VOLU ME] IN SERUM OR PLASMA 1.2 mg/dL 0.7 - 1.2 04/16 Specimen Type: PLASMA No comment entered. Ordering Provider: HUYEN HYTLON Report Released Date/Time: Mar 07, 2023 02:00 PM Reporting Lab: [facility] [address] Performing Lab: [place] [address] [facility] CREATINI NE(INCLU SATHYA EGFR) GLOMERULAR FILTRATION RATE/1.73 SQ M.PREDICTE D [VOLUME RATE/AREA] IN SERUM, PLASMA OR BLOOD BY CREATININE -BASED FORMULA (CKD-EPI 2020) 62 60 04/16 Specimen Type: PLASMA No comment entered. Ordering Provider: HUYEN HYLTON Report Released Date/Time: Mar 07, 2023 02:00 PM Reporting Lab: [facility] [address] Performing Lab: [address] [place] [facility] CBC LEUKOCYTES [#/VOLUME] IN BLOOD BY AUTOMATED COUNT 8.06 10*3/uL 4.0 - 11.0 04/16 Specimen Type: BLOOD No comment entered. Ordering Provider: HUYEN HYLTON S Report Released Date/Time: Mar 07, 2023 02:00 PM Reporting Lab: [facility] [address] Performing Lab: [place] [address] [place] [facility] CBC ERYTHROCYT ES [#/VOLUME] IN BLOOD BY AUTOMATED COUNT 4.03 10*6/uL 4.6 - 6.2 04/16 L Specimen Type: BLOOD No comment entered. Ordering Provider: HUYEN HYLTON Report Released Date/Time: Mar 07, 2023 02:00 PM Reporting Lab: [facility] [address] Performing Lab: [facility] [address] [place] [facility] CBC HEMOGLOBIN [MASS/VOLU ME] IN BLOOD 13.1 g/dL 13.5 - 17.9 04/16 L Specimen Type: BLOOD No comment entered. Ordering Provider: HUYEN HYLTON Report Released Date/Time: Mar 07, 2023 02:00 PM Reporting Lab: [facility] [address] Performing Lab: [facility] [address] [place] [facility] CBC HEMATOCRIT [VOLUME FRACTION] OF BLOOD BY AUTOMATED COUNT 38.9 41 - 54 04/16 L Specimen Type: BLOOD No comment entered. Ordering Provider: HUYEN HYLTON Report Released Date/Time: Mar 07, 2023 02:00 PM Reporting Lab: [facility] [address] Performing Lab: [facility] [address] [place] [facility] CBC MCV [ENTITIC VOLUME] BY AUTOMATED COUNT 96.5 fL 80 - 100 04/16 Specimen Type: BLOOD No comment entered. Ordering Provider: HUYEN HYLTON Report Released Date/Time: Mar 07, 2023 02:00 PM Reporting Lab: [facility] [address] Performing Lab: [place] [phone] [place] [facility] CBC MCH [ENTITIC MASS] BY AUTOMATED COUNT 32.5 pg 27 - 33 04/16 Specimen Type: BLOOD No comment entered. Ordering Provider: HUYEN HYLTON S Report Released Date/Time: Mar 07, 2023 02:00 PM Reporting Lab: [facility] [address] Performing Lab: [facility] [address] [place] [facility] CBC MCHC [MASS/VOLU ME] BY AUTOMATED COUNT 33.7 g/dL 32.0 - 37.5 04/16 Specimen Type: BLOOD No comment entered. Ordering Provider: HUYEN HYLTON Report Released Date/Time: Mar 07, 2023 02:00 PM Reporting Lab: [facility] [address] Performing Lab: [facility] [address] [place] [facility] CBC PLATELETS [#/VOLUME] IN BLOOD BY AUTOMATED COUNT 157 10*3/uL 150 - 400 04/16 Specimen Type: BLOOD No comment entered. Ordering Provider: HUYEN HYLTON Report Released Date/Time: Mar 07, 2023 02:00 PM Reporting Lab: [facility] [address] Performing Lab: [facility] [address] [place] [facility] CBC PLATELET MEAN VOLUME [ENTITIC VOLUME] IN BLOOD BY AUTOMATED COUNT 9.7 fL 7.4 - 10.4 04/16 Specimen Type: BLOOD No comment entered. Ordering Provider: HUYEN HYLTON Report Released Date/Time: Mar 07, 2023 02:00 PM Reporting Lab: [facility] [address] Performing Lab: [facility] [address] [place] [facility] CBC ERYTHROCYT E DISTRIBUTI ON WIDTH [RATIO] BY AUTOMATED COUNT 14.5 11.5 - 14.5 04/16 Specimen Type: BLOOD No comment entered. Ordering Provider: HUYEN HYLTON Report Released Date/Time: Mar 07, 2023 02:00 PM Reporting Lab: [facility] [address] Performing Lab: [facility] [address] [place] [facility] AST/SGOT ASPARTATE AMINOTRANS FERASE [ENZYMATIC ACTIVITY/V OLUME] IN SERUM OR PLASMA 22 U/L <34 - 34 04/16 Specimen Type: PLASMA No comment entered. Ordering Provider: HUYEN HYLTON Report Released Date/Time: Mar 07, 2023 02:00 PM Reporting Lab: [facility] [address] Performing Lab: [facility] [address] [facility] ALT/SGPT ALANINE AMINOTRANS FERASE [ENZYMATIC ACTIVITY/V OLUME] IN SERUM OR PLASMA 19 U/L <55 - 55 04/16 Specimen Type: PLASMA No comment entered. Ordering Provider: HUYEN HYLTON Report Released Date/Time: Mar 07, 2023 02:00 PM Reporting Lab: [facility] [address] Performing Lab: [facility] [address] [facility] Vital Signs Combined list of inpatient and outpatient Vital Signs from Department of Defense and Veterans Affairs, ranging from 12 months to all on record, depending upon the facility. Vital Sign Value Date Comments Source SYSTOLIC BLOOD PRESSURE 135 07/17/2023 15:03:14 [facility] DIASTOLIC BLOOD PRESSURE 93 07/17/2023 15:03:14 [facility] PULSE OXIMETRY 96 07/17/2023 15:03:14 [place] [facility] WEIGHT 202.7 07/17/2023 15:03:14 [facility] BMI 26kg/m2 07/17/2023 15:03:14 [facility] PAIN 0 07/17/2023 15:03:14 [facility] HEIGHT 74 07/17/2023 15:03:14 [facility] TEMPERATURE 98.1 07/17/2023 15:03:14 [facility] PULSE 82 07/17/2023 15:03:14 [facility] RESPIRATION 16 07/17/2023 15:03:14 [facility] Encounters Combined list of: 1) Encounters from 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 2) Encounters from the Department of [facility] facilities going back up to 280 months. Location Location Details Encounter Type Encounter Number Reason For Visit Attending Provider ADM Date DC Date Status Disposition Source [place] [facility] Outpatient Encounter [id number] 11/06 [place] [place] [facility] Outpatient Encounter [id number] 12/08 [place] [place] [facility] Outpatient Encounter [id number] 12/12 [place] [facility] [place] [facility] Outpatient Encounter [id number] 01/17 [place] [facility] [place] [facility] Outpatient Encounter [id number] 02/19 [place] [facility] [place] [facility] Outpatient Encounter [id number] 02/24 [place] [facility] [place] [facility] Outpatient Encounter [id number] 03/07 [facility] [place] [facility] QNHP OL DIG ASSMT&MGMT 5-10 [id number] Diagnos is: ICD-10- CM Z79.01 halfway (curren t) use of anticoa gulants
ELLEN GARCIA 05/29 [facility] [place] [facility] OFFICE O/P EST MOD 30 MIN [id number] Diagnos is: ICD-10- CM Z00.01 Encount er for general adult medical exam w abnorma l finding s
Ana CHAUHAN 07/16 [facility] [place] [facility] Outpatient Encounter [id number] 07/17 [facility] [place] [facility] Outpatient Encounter [id number] 04/05 [facility] Social History Combined list of available smoking, tobacco, and other social history from Department of Defense and Veterans Affairs facilities. Social History Type Response Date Comment Sourc e Tobacco smoking status NHIS VA-TOBACCO FORMER USER 07/17/2023 [facility] History of tobacco use [place]-TOBACCO QUIT 1 TO < 5 YRS 07/17/2023 [facility] History of tobacco use [place]-TOBACCO FORMER USER 08/07/2022 [facility] History of tobacco use [place]-TOBACCO FORMER USER 10/16/2020 [facility] History of tobacco use [place]-TOBACCO USE CO UNSEL NO 03/29/2019 [facility] History of tobacco use [place]-TOBACCO USE WI 30 MIN OF WAKEUP 02/17/2018 [facility] History of tobacco use CURRENT TOBACCO USER 02/12/2017 [facility] History of tobacco use CURRENT TOBACCO USER 04/25/2015 [facility] History of tobacco use CURRENT TOBACCO USER 04/21/2014 [facility] History of tobacco use CURRENT TOBACCO USER 04/20/2013 [facility] History of tobacco use CURRENT TOBACCO USER 03/20/2012 [facility] History of tobacco use CURRENT TOBACCO USER 02/06/2011 [facility] History of tobacco use CURRENT TOBACCO USER 01/02/2010 [facility]
--- OUTSIDE RECORDS SUMMARY | 2024-04-05 10:19 | XMS_ITS | Encounter Summary ---
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 [place] [facility] [place] Address [address] [place] [address] Care Team Providers Care Wrapping Clerk Name Role Phone OZ HAWKINS Primary Care [...] Relationship to Policy Kevin BC BS [place] [facility] ORGANIZ [id number] Jan 05, 2010 [id number] [employer] [facility] PAZANUSHA PATIENT MEDICARE (WN) MEDICARE () PART A Jan 05, 2010 PART A [id number] [phone] ANUSHA DE PAZ PATIENT MEDICARE (WNR) MEDICARE (M) PART B Jan 05, 2010 PART B [id number] [phone] ANUSHA DE PAZ PATIENT MEDICARE (WNR) MEDICARE () PART A Jan 05, 2010 PART A [id number] [facility] ANUSHA DE PAZ PATIENT MEDICARE (WNR) MEDICARE (M) PART A Jan 05, 2010 PART A [id number] [phone] ANUSHA DE PAZ PATIENT MEDICARE (WN) MEDICARE (M) PART B Jan 05, 2010 PART B [id number] [facility] [phone] ANUSHA DE PAZ PATIENT Selected Encounter This section includes the information on record at [place] for the Encounter. Date/Time Encounter Type Encounter Description Reason Provider Source Jul 17, 2023 03:00 PM OFFICE O/P EST MOD 30 MIN PRIMARY CARE/MEDICINE ICD-10-CM Z00.01 Encounter for general adult medical exam w abnormal findings SARAH CONCEPCION E Encounter Template Text not used by [place] Assessments - Encounter Diagnoses This section includes the primary and secondary diagnoses documented for the Encounter. Date/Time Primary/Secondary Diagnosis Diagnosis Name Provider Source Jul 18, 2023 06:19 AM PRIMARY Encounter for general adult medical exam w abnormal findings ANAIS CONCEPCION [facility] Jul 18, 2023 06:19 AM SECONDARY Athscl heart disease of [place] coronary artery w/o ang pctrs CONCEPCION,ANAIS [facility] Jul 18, 2023 06:19 AM SECONDARY Benign prostatic hyperplasia with lower urinary tract symp CONCEPCIONANAIS YU CHRISTINA [facility] Jul 18, 2023 06:19 AM SECONDARY Cerebrovascular disease, unspecified CONCEPCION,ANAIS VASQUEZ [facility] Jul 18, 2023 06:19 AM SECONDARY Chronic atrial fibrillation, unspecified CONCEPCIONANAIS VASQUEZ [facility] Jul 18, 2023 06:19 AM SECONDARY Chronic obstructive pulmonary disease, unspecified CONCEPCION,ANAIS VASQUEZ [facility] Jul 18, 2023 06:19 AM SECONDARY Essential (primary) hypertension CONCEPCION,ANAIS VASQUEZ [facility] Jul 18, 2023 06:19 AM SECONDARY Hyperglycemia, unspecified CONCEPCION,ANAIS [facility] Jul 18, 2023 06:19 AM SECONDARY Peripheral vascular disease, unspecified CONCEPCION,ANAIS VASQUEZ [facility] Lab Results: +/- 30 days of the encounter This section includes the Chemistry and Hematology Lab Results on record with [place] for the patient. Radiology Reports and Pathology [...] Jul 17, 2023 04:23 PM Reporting Lab: [facility] [address] Performing Lab: [facility] [address] URINE COLOR COLORLESS SPECIFIC GRAVITY 1.006 1.003-1.035 URINE BILIRUBIN NEGATIVE NEGATIVE URINE KETONES NEGATIVE NEGATIVE URINE GLUCOSE NEGATIVE mg/dL URINE PROTEIN NEGATIVE mg/dL URINE PH 7.0 5.0-8.0 URINE WBC/HPF <1 [...] August 07, 2022 02:21 PM Reporting Lab: [facility] [address] Performing Lab: [facility] [address] HEMOGLOBIN A1C 6.0 4.0-6.0 Jul 17, 2023 02:17 PM [facility] BASIC METABOLIC PANEL+MG Specimen Type: PLASMA No comment entered. Ordering Provider: SARAH CONCEPCION Report Released Date/Time: August 07, 2022 02:21 PM Reporting Lab: [facility] [address] Performing Lab: [facility] [address] CREATININE 1.3 mg/dL H 0.7-1.2 UREA NITROGEN [...] August 07, 2022 02:21 PM Reporting Lab: [facility] [address] Performing Lab: [facility] [address] WBC 8.72 10*3/uL 4.0-11.0 RBC 4.11 10*6/uL [...] August 07, 2022 02:21 PM Reporting Lab: [facility] [address] Performing Lab: [facility] [address] BILIRUBIN, TOTAL 0.8 mg/dL 0.2-1.2 ALKALINE PHOSPHATASE 52 U/L 40-150 ALT/SGPT 20 U/L <55 AST/SGOT 19 U/L <34 GAMMA GTP 38 U/L <64 Jul 17, 2023 02:17 PM [facility] PSA Specimen Type: SERUM No comment entered. Ordering Provider: SARAH CONCEPCION Report Released Date/Time: August 07, 2022 02:21 PM Reporting Lab: [facility] [address] Performing Lab: [facility] [address] PSA 3.84 ng/mL <4.00 Vital Signs: All taken on the encounter date This section contains inpatient and outpatient Vital Signs collected on the date of the Encounter. Date/Time Temperature Pulse Blood Pressure Respiratory Rate SP02 Pain Height Weight Body Mass Index Source Jul 17, 2023 03:21 PM 74 142/90 [facility] Jul 17, 2023 03:03 PM 98.1 82 135/93 16 96 0 74 202.7 26 [facility] Social History: Smoking Status (Most current) [...] Mar 29, 2019 10:59 AM VA-TOBACCO USE [employer] [facility] NO [facility] Mar 29, 2019 10:59 [...] Feb 17, 2018 03:39 PM VA-TOBACCO USE [employer] [facility] Feb 17, 2018 03:39 [...] provided to the patient is available in [employer] SCANNED DOCUMENT SIGNATURE NOT REQUIRED Electronically Filed: [...] Nifedipine SA. L leg edema on Furosemide/KCl --. Trial of w/holding Furosemide to see if [...] of problems per problem list. Co-Managed at [facility] in [place], last seen 3 months ago. 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 No focal deficits at this point. Atrial fibrillation, apixaban for anticoagulation and Metoprolol succinate for rate control. Previous stent placement in 2019. Hypertension on Nifedipine SA and Metoprolol succinate. 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 Still follows with Michael for this. Wears [...] for the followin. Essential hypertension (SNOMED CT 19474791) 2. Atrial fibrillation (SNOMED CT 27369807) - Warfarin through [facility] 3. Allergic rhinitis (SNOMED CT 71476850) 4. Current smoker - Cigars, not cigarettes 5. Glucose intolerance 6. COPD - Chronic Obstructive Pulmonary Disease ([facility] [id number]) - Mometasone & Albuterol MDI's 7. Co-Managed Care - Dr Garcia [facility], F: [phone], 8. [place] of toe - R middle toe 9. Peripheral arterial insufficiency - 01/21/20: L femoral Art occlusion per [facility]-->Fem-Tibial bypass planned 10. CAD - Coronary Artery Disease ([facility] [id number]) - 01/27/20: LAD and Dx stented w/SATHYA at [facility]. Plavix +ASA thru 01/26/21 11. CVD - Cerebrovascular Disease ([facility] [id number]) - 03/19/20: L MCA CVA, Admit ANW. Cardio-embolic d/t Warfarin DC SURGERIES - NONE FOUND LISINOPRIL (Mar 05, 2010) FINAL MEDICATION RECONCILIATION See Medication Reconciliation below IM - Immunizations ADMINISTERED Immunization Series Date Facility Reaction Info COVID-19 ([employer]), MRNA, LNP-S, * 04/24/2022 [facility] COVID-19 ([employer]), MRNA, LNP-S, * 02/09/2021 [facility] [facility] COVID-19 ([employer]), MRNA, LNP-S, * 2 06/17/2020 [facility]* COVID-19 ([employer]), MRNA, LNP-S, * 1 [facility] ([employer]), MRNA, LNP-S, * 08/24/2021 [facility] INFLUENZA VACCINE, QUADRIVALENT,* 12/29/2020 [facility] INFLUENZA VACCINE, QUADRIVALENT,* 01/06/2020 [facility] [facility] INFLUENZA, HIGH DOSE SEASONAL 02/12/2017 [place]* INFLUENZA, HIGH DOSE SEASONAL 04/09/2016 [facility] [facility] INFLUENZA, HIGH DOSE SEASONAL 04/25/2015 [place]* INFLUENZA, SEASONAL, INJECTABLE [facility]* INFLUENZA, SEASONAL, INJECTABLE [place] INFLUENZA, TRIVALENT, ADJUVANTED 02/24/2019 [facility] [facility] INFLUENZA, [...] <C> TDAP 04/24/2009 [facility] [facility] TDAP 04/07/2007 [place]* <C> ZOSTER LIVE [place] ZOSTER LIVE 10/31/2006 [facility] [facility]OSTER RECOMBINANT [...] independent of and w/out assistance from this [place]. Through Michael. /naina/ Morgan Concepcion MD Staff [...] pressure ulcers, or a wound from a bio medical technician or Patient is bed-confined or a wheelchair-user or Patient requires assistance to transfer/change position No, Skin Screen is Negative Home Abuse/Violence Screen Is your home free of abuse and violence? Yes MOVE! Program Screen Body Mass Index (BMI)= 26.1 [place]: Collection DT Specimen Test Name Result Units Ref Range 07/17/2023 14:17 BLOOD !! HEMOGLOBIN A1C 6.0 % 4.0 - 6.0 !! Indicates COMMENTS AVAILABLE...Refer to Interim Lab Report. [place] Hgb A1C: No data available [place] Hgb A1C: No data available Point of Care Hgb A1C: POC HGB A1C____ Outpatient Nutrition Screen Body Mass Index (BMI)= 26.1 [place]: Collection DT Specimen Test Name Result Units Ref Range 07/17/2023 14:17 BLOOD !! HEMOGLOBIN A1C 6.0 % 4.0 - 6.0 !! Indicates COMMENTS AVAILABLE...Refer to Interim Lab Report. [place] Hgb A1C: No data available [place] Hgb A1C: No data available Point of [...] Not worried about housing near future [facility] [place] reports the following: Within the past 12 months, you worried whether your food would run out before you got money to buy more. Never true Within the past 12 months, the food you bought just didn't last and you didn't have money to get more. Never true Food Assistance Programs [facility] Food Assistance [facility] Depression Screening: Perform PHQ-2 A PHQ-2 screen was performed. The score was 0 which is a negative screen for depression. Over the past two weeks, how often have you been bothered by the following problems? 1. Little interest or pleasure in doing things Not at all 2. Feeling down, depressed, or hopeless Not at all Suicide Screen: C-SSRS Screening [place]-Suicide Severity Rating Scale (C-SSRS Screener) 1. Over [...] required due to responses to other questions. /sonu COTTRELL CREDIT ASSOCIATE Signed: 07/17/2023 15:19 07/17/2023 ADDENDUM STATUS: COMPLETED Procedure: Residual Urine Participant instructed and verbalized understanding of procedure. Patient instructed and verbalizes that they have emptied the bladder completely. Ultrasound RU: 111 cc /sonu COTTRELL CREDIT ASSOCIATE Signed: 07/17/2023 16:33 ANNA COTTRELL [facility] [...] treatment. 2. Complete a durable power of immigration attorney for health care. 3. Complete a living will. ADVANCE DIRECTIVE SCREENING: Does patient have an Advance Directive? The patient does not have an Advance Directive. The patient does not wish to create an Advance Directive for health care. Comment: DECLINED /sonu EGAN Advance Office Nurse Signed: 07/17/2023 14:26 AURELIA EGAN [facility]
--- OUTSIDE RECORDS SUMMARY | 2024-04-05 10:19 | XMS_ITS | Data Portability ---
Author Organization [place] - [facility], [employer] Address [address] [facility] [place] [address] Assessment Encounter Date Assessment Date Assessment LastModified [...] Reason for Referral None Reported. Problems Name Problem SNOMED Code Status Onset Date Resolution Date Notes Provider Name and Address Organization Details Recorded Time Tobacco user 130852888 Active 2015 Tobacco user; Original Code: 160673520 Original Codesystem : SNOMED CT Classif ication: Medical Co nfirmation Status: Probable Not Available [facility] 3 09:10:17 Onychomyc osis of toenails 107824320 Active 2015 Onychomyco sis of toenails; Original Code: 7921400834 Original Codesystem : SNOMED CT Classif ication: Medical Co nfirmation Status: Confirmed Not Available [facility] 3 09:10:17 Heart disease 63480469 Active 2021 Heart disease; Original Code: 10861690 O riginal Codesystem : SNOMED CT Classif ication: Medical Co nfirmation Status: Confirmed Not Available [facility] 3 09:10:17 Corns and callus Active 2015 Corns and callus; Original Code: 974031924 Original Codesystem : SNOMED CT Classif ication: Medical Co nfirmation Status: Confirmed Not Available [facility] 3 09:10:17 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 936074618 Active 2021 Atheroscle rosis of bypass graft of lower limb; Original Code: 3000799572 Original Codesystem : SNOMED CT Classif ication: Medical Co nfirmation Status: Confirmed Not Available [facility] 3 09:10:17 Foot pain 38244912 Active 2015 Foot pain; Original Code: 536910829 Original Codesystem : SNOMED CT Classif ication: Medical Co nfirmation Status: Confirmed Not Available [facility] 3 09:10:17 Acquired hallux valgus 97907863 Active 2015 Acquired hallux valgus; Original Code: 449355545 Original Codesystem : SNOMED CT Classif ication: Medical Co nfirmation Status: Confirmed Not Available [facility] 3 09:10:17 Acquired hallux malleus 83374895 Active 2015 Acquired hallux malleus; Original Code: 50211886 O riginal Codesystem : SNOMED CT Classif ication: Medical Co nfirmation Status: Confirmed Not Available [facility] 3 09:10:17 Atrial fibrillat ion 73252223 Active 2015 Atrial fibrillati on; Original Code: 59565672 O riginal Codesystem : SNOMED CT Classif ication: Medical Co nfirmation Status: Confirmed Not Available [facility] 3 09:10:17 Hypertens edelmira disorder 39642604 Active 2015 Hypertensi ve disorder; Original Code: 9644084808 Original Codesystem : SNOMED CT Classif ication: Medical Co nfirmation Status: Confirmed Not Available [facility] 09:10:17 Notes:H/O: anticoagulant yon hay Original Code: 041393647 Original Codesystem: SNOMED CT Classification: Medical Confirmation Status: Confirmed Problem Notes None recorded. Procedures Surgical History Date Name Laterality Status Provider Name and Address Organization Details Recorded Time 10/24/[address] Pitts completed Too Andres DPM [address] [place] [address], [phone], [facility] 10/23/2022 11:44:57 07/25/[address] Hong Andres DPM [address] [place] [address], [phone], [facility] 07/24/2022 10:35:10 04/24/[address] Hong Andres DPM [address] [place] [address], [phone], [facility] 04/24/2022 11:13:18 Imaging [...] Updated DateTime 04/24/2022 190.5 cm 25 kg/m2 76607.47 g Mamta Corbett [facility] 04/24/2022 10:32:58 Social History None recorded. Functional Status None recorded. Mental Status None recorded. Family History Nothing Reported. Medical History No medical history recorded. Past Encounters Encounter ID Performer Location Encounter Start Date Encounter Closed Date Diagnosis/Indication Diagnosis SNOMED-CT Code Diagnosis ICD10 Code [id number] Too Andres DPM [place] [facility]5 [facility] [address] [place] [address] 04/24/2022 10:31:04 04/24/2022 13:46:36 Onychomycosis 340505802 B35.1 Peripheral vascular disease 426697193 I73.9 [id number] Too Andres [facility] Office [address] [place] [phone] 07/24/2022 10:14:25 07/25/2022 09:45:42 Onychomycosis 060837527 B35.1 Peripheral vascular disease 250132327 I73.9 [id number] Too Andres [facility] Office [address] [place] [phone] 10/23/2022 10:13:43 10/24/2022 09:44:58 Onychomycosis 033593693 B35.1 Peripheral vascular disease 089587006 I73.9 Health Concerns Section Related Observation LastModified by Organization Detai ls LastModified Time None Recorded Concern Status LastModified by Organization Details LastModified Time None Recorded Advance Directives Directive None Recorded Payers Encounter Date Sequence Insurance Name Policy Number Policy Kevin Covered Member ID Kevin Member ID Guarantor Name 04/24/2022 1 [place] [id number] Bola Zurita [id number] Bola Zurita 07/24/2022 1 [place] [id number] Bola Zurita [id number] Bola Zurita 10/23/2022 1 [place] [id number] Bola Zurita [id number] Bola Zurita Notes Date Note Type Note Provider Name and Address Organization Details Recorded Time 04/24/2022 text/html Patient is a 77 year old male established patient who presents with the chief complaint. Presents today for evaluation of problematic toenails and feet in general. They relate chronic thickening and deformity to their toenails that has not responded to self-trimming, topical saqt-dhb-qebtqcv anti-fungal therapy, foot soaks, and other similar conservative treatments. Nails are painful with catching on shoegear and socks. Denies any recent foot injury or infection. Claudication symptoms: No Burning symptoms: No Paresthesia: Subjective numbness to the left lower extremity consistent with his previous surgical procedures performed through [facility] in [facility] Patient presents for further evaluation and treatment options. Too Andres DPM [address] [place], [address], [facility] 04/24/2022 11:14:44 07/24/2022 text/html Patient is a 77 year old male established patient who presents with the chief complaint. Presents today for evaluation of problematic toenails and feet in general. They relate chronic thickening and deformity to their toenails that has not responded to self-trimming, topical bjdb-piu-uvmnotu anti-fungal therapy, foot soaks, and other similar conservative treatments. Nails are painful with catching on shoegear and socks. Denies any recent foot injury or infection. Claudication symptoms: No Burning symptoms: No Paresthesia: Subjective numbness to the left lower extremity consistent with his previous surgical procedures performed through [facility] in [facility] Patient presents for further evaluation and treatment options. Too Andres DPM [address] [place], [address], [facility] 07/24/2022 10:35:54 10/23/2022 text/html Patient is a 77 year old male established patient who presents with the chief complaint. Presents today for evaluation of problematic toenails and feet in general. They relate chronic thickening and deformity to their toenails that has not responded to self-trimming, topical rbmo-wlj-lnecspe anti-fungal therapy, foot soaks, and other similar conservative treatments. Nails are painful with catching on shoegear and socks. Denies any recent foot injury or infection. Claudication symptoms: No Burning symptoms: No Paresthesia: Subjective numbness to the left lower extremity consistent with his previous surgical procedures performed through [facility] in [facility] Patient presents for further evaluation and treatment options. Too Andres DPM [address] [place], [address], [facility] 10/23/2022 11:45:19
--- OUTSIDE RECORDS SUMMARY | 2024-04-05 10:19 | XMS_ITS | Encounter Summary ---
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 [facility] [place] Address [address] [place] [address] Care Team Providers Care Mission Analyst Name Role Phone OZ HAWKINS Primary Care [...] Relationship to Policy Kevin BC BS [place] [facility] [id number] Jan 05, 2010 [id number] DEPEN[employer] ON [employer] ANUSHA DE PAZ PATIENT MEDICARE (WNR) MEDICARE (M) PART A Jan 05, 2010 PART A [id number] [phone] ANUSHA DE PAZ PATIENT MEDICARE (WNR) MEDICARE (M) PART B Jan 05, 2010 PART B [id number] ANUSHA DE PAZ PATIENT MEDICARE (WNR) MEDICARE (M) PART A Jan 05, 2010 PART A [id number] [facility] ANUSHA DE PAZ PATIENT MEDICARE (WNR) MEDICARE (M) PART A Jan 05, 2010 PART A [id number] [facility] [phone] ANUSHA DE PAZ PATIENT MEDICARE (WNR) MEDICARE () PART B Jan 05, 2010 PART B [id number] [facility] [phone] ANUSHA DE PAZ PATIENT Selected Encounter This section includes the information on record at [place] for the Encounter. Date/Time Encounter Type Encounter Description Reason Provider Source May 29, 2023 09:41 AM QNHP OL DIG ASSMT&MGMT 5-10 CLINICAL PHARMACY ICD-10-CM Z79.01 jail (current) use of anticoagulants GERRI GARCIA [facility] Encounter Template Text not used by [place] Assessments - Encounter Diagnoses This section includes the primary and secondary diagnoses documented for the Encounter. Date/Time Primary/Secondary Diagnosis Diagnosis Name Provider Source May 29, 2023 09:46 AM PRIMARY jail (current) use of anticoagulants GERRI GARCIA [facility] May 29, 2023 09:46 AM SECONDARY Unspecified atrial fibrillation GERRI GARCIA [facility] Plan of Treatment: Future Appointments (+ 6 months) and Future Tests (+/- 45 days) The Plan of Treatment section includes future care activities for the patient [facility] [place] [facility] This section includes future appointments and future orders which are active, pending or scheduled. Future Appointments This section includes appointments that were scheduled to occur 6 months from the date of the Encounter, up to a maximum of 20 appointments. The data comes from all [place] treatment facilities. Appointment Date/Time Appointment Type Appointme nt Facility Name Jul 17, 2023 03:00 PM AMBULATORY - MEDICINE [facility] Social History: Smoking Status (Most current) and Tobacco Use (All prior to encounter date) This section includes the most current, and the historical, smoking and tobacco- related health factors from the [place] facility where the Encounter took place. Current Smoking Status This section includes the most current smoking, or tobacco-related health factor, from the [place] facility where the Encounter took place. Date/Time Current Smoking Status Comment Facil ity August 07, 2022 01:30 PM VA-TOBACCO FORMER USER [facility] Tobacco Use History This section includes a history of the smoking, or tobacco-related health factors, that were collected on or before the date of the Encounter. The data comes from the [place] facility where the Encounter took place. 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 [facility] Mar 29, 2019 10:59 AM VA-TOBACCO USE MED NO [facility] Mar 29, 2019 10:59 AM VA-TOBACCO USE [place] 30 MIN OF WAKE UP [facility] Mar 29, 2019 10:59 AM VA-TOBACCO USER EVERY DAY [facility] Feb 17, 2018 03:39 PM VA-TOBACCO USE 30 YEARS OR MORE [facility] Feb 17, 2018 03:39 PM VA-TOBACCO USE ADVICE [facility] Feb 17, 2018 03:39 PM 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 [facility] Feb 17, 2018 03:39 PM VA-TOBACCO USE MED NO [facility] Feb 17, 2018 03:39 PM VA-TOBACCO USE [place] 30 MIN OF WAKE UP [facility] Feb 17, 2018 03:39 PM VA-TOBACCO USER EVERY DAY [facility] Feb 12, 2017 12:38 PM CURRENT TOBACCO USER [facility] Apr 25, 2015 07:50 AM CURRENT TOBACCO USER [facility] Apr 21, 2014 08:25 AM CURRENT TOBACCO USER [facility] Apr 20, 2013 10:04 AM CURRENT TOBACCO USER [facility] Mar 20, 2012 09:53 AM CURRENT TOBACCO USER [facility] Feb 06, 2011 09:44 AM CURRENT TOBACCO USER [facility] Jan 02, 2010 09:22 AM CURRENT TOBACCO USER [facility] Encounter Notes: All associated encounter notes [...] 15 min /naina/ Court Garcia, Pharm.D. Clinical Day Treatment Clinician/Art Therapist Signed: 05/29/2023 09:[address] GARC[address] [facility]
--- OUTSIDE RECORDS SUMMARY | 2024-04-05 10:19 | XMS_ITS | Encounter Summary ---
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 [place] [facility] [place] [facility] [place] Address [address] [place] [address] Care Team Providers Care Coverage Specialist Rn Name Role Phone OZ HAWKINS [facility] Insurance Providers: All historical and current [...] Patient's Relationship to Policy Kevin OPHELIA [place] [facility] [id number] Jan 05, 2010 [id number] DEPENDS ON [employer] DE PAZANUSHA PATIENT MEDICARE (WNR) MEDICARE (M) PART A Jan 05, 2010 PART A [id number] [phone] ANUSHA DE PAZ PATIENT MEDICARE (WNR) MEDICARE (M) PART B Jan 05, 2010 PART B [id number] [phone] ANUSHA DE PAZ PATIENT MEDICARE (WNR) MEDICARE (M) PART A Jan 05, 2010 PART A [id number] [facility] ANUSHA DE PAZ PATIENT MEDICARE (WNR) MEDICARE (M) PART A Jan 05, 2010 PART A [id number] [phone] ANUSHA DE PAZ PATIENT MEDICARE (WNR) MEDICARE (M) PART B Jan 05, 2010 PART B [id number] [facility] [phone] ANUSHA DE PAZ PATIENT Selected Encounter This section includes the information on record at [place] for the Encounter. Date/Time Encounter Type Encounter Description Reason Pro vider Source Jul 18, 2023 12:00 AM Outpatient Encounter EVENT (HISTORICAL) [facility] Encounter Template Text not used by [facility] Lab Results: +/- 30 days of the encounter This section includes the Chemistry and Hematology Lab Results on record with [place] for the patient. Radiology Reports and Pathology Reports are provided separately, in subsequent sections. Lab Results This section contains the Chemistry/Hematology Results that were resulted 30 days before or 30 daysafter the date of the Encounter. Date/Time Source Result Type Result - Unit Interpretation Reference Range Comment Jul 17, 2023 04:34 PM [facility] URINALYSIS Specimen Type: URINE No comment entered. Ordering Provider: SARAH CHAUHAN Report Released Date/Time: Jul 17, 2023 04:23 PM Reporting Lab: [facility] [id number] Performing Lab: [facility] [id number] URINE COLOR COLORLESS SPECIFIC GRAVITY 1.006 1.003-1.035 [...] NEGATIVE NEGATIVE Jul 17, 2023 02:17 PM [facility] HEMOGLOBIN A1C Specimen Type: BLOOD Comment: [...] August 07, 2022 02:21 PM Reporting Lab: [facility] [id number] Performing Lab: [facility] [id number] HEMOGLOBIN A1C 6.0 4.0-6.0 Jul 17, 2023 02:17 PM [facility] BASIC METABOLIC PANEL+MG Specimen Type: PLASMA No comment entered. Ordering Provider: SARAH CHAUHAN Report Released Date/Time: August 07, 2022 02:21 PM Reporting Lab: [facility] [id number] Performing Lab: [facility] [address] CREATININE 1.3 mg/dL H 0.7-1.2 UREA NITROGEN 15 mg/dL 8-26 GLUCOSE 84 mg/dL 70-100 SODIUM 137 mmol/L 136-145 POTASSIUM 4.6 mmol/L 3.5-5.1 CHLORIDE 105 mmol/L 98-107 CO2 24 mmol/L 22-29 CALCIUM 8.9 mg/dL 8.4-10.2 MAGNESIUM 2.1 mg/dL 1.6-2.6 ANION GAP 8 mmol/L 5-15 .CREAT EGFR(CKD-EPI) 56 L >60 Jul 17, 2023 02:17 PM [facility] CBC Specimen Type: BLOOD No comment entered. Ordering Provider: SARAH CHAUHAN Report Released Date/Time: August 07, 2022 02:21 PM Reporting Lab: [facility] [id number] Performing Lab: [facility] [address] WBC 8.72 10*3/uL 4.0-11.0 RBC 4.11 10*6/uL L 4.6-6.2 HGB 13.4 g/dL L 13.5-17.9 HCT 39.7 L 41-54 MCV 96.6 fL 80-100 MCH 32.6 pg 27-33 MCHC 33.8 g/dL 32.0-37.5 PLT 159 10*3/uL 150-400 MPV 9.6 fL 7.4-10.4 RDW 14.1 11.5-14.5 Jul 17, 2023 02:17 PM [facility] LIVER FUNCTION TESTS Specimen Type: PLASMA No comment entered. Ordering Provider: SARAH CHAUHAN Report Released Date/Time: August 07, 2022 02:21 PM Reporting Lab: [facility] [phone] Performing Lab: [facility] [address] BILIRUBIN, TOTAL 0.8 mg/dL 0.2-1.2 ALKALINE PHOSPHATASE 52 U/L 40-150 ALT/SGPT 20 U/L <55 AST/SGOT 19 U/L <34 GAMMA GTP 38 U/L <64 Jul 17, 2023 02:17 PM [facility] PSA Specimen Type: SERUM No comment entered. Ordering Provider: SARAH CHAUHAN Report Released Date/Time: August 07, 2022 02:21 PM Reporting Lab: [facility] [id number] Performing Lab: [facility] [id number] PSA 3.84 ng/mL <4.00 Social History: Smoking Status (Most current) and Tobacco Use (All prior to encounter date) This section includes the most current, and the historical, smoking and tobacco- related health factors from the [place] facility where the Encounter took place. Current Smoking Status This section includes the most current smoking, or tobacco-related health factor, from the [place] facility where the Encounter took place. Date/Time Current Smoking Status Comment Liam shah Jul 17, 2023 03:00 PM VA-TOBACCO FORMER USER [facility] Tobacco Use History This section includes a history of the smoking, or tobacco-related health factors, that were collected on or before the date of the Encounter. The data comes from the [place] facility where the Encounter took place. Date/Time Smoking Status/Tobacco Use Comment F amy Jul 17, 2023 03:00 PM VA-TOBACCO QUIT 1 TO < 5 YRS [facility] August 07, 2022 01:30 PM VA-TOBACCO FORMER USER [facility] August 07, 2022 01:30 PM VA-TOBACCO QUIT 1 TO < 5 YRS [facility] Oct 16, 2020 02:45 PM VA-TOBACCO FORMER USER [facility] Oct 16, 2020 02:45 PM VA-TOBACCO QUIT 15 YRS OR MORE [facility] Mar 29, 2019 10:59 AM VA-TOBACCO USE > 1 5 LESS THAN 30 YEARS [facility] Mar 29, 2019 10:59 AM VA-TOBACCO USE ADVICE [facility] Mar 29, 2019 10:59 AM 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 [facility] Mar 29, 2019 10:59 AM VA-TOBACCO USE MED NO [facility] Mar 29, 2019 10:59 AM VA-TOBACCO USE [place] 30 MIN OF WAKE UP [facility] Mar 29, 2019 10:59 AM VA-TOBACCO USER EVERY DAY [facility] Feb 17, 2018 03:39 PM VA-TOBACCO USE 30 YEARS OR MORE [facility] Feb 17, 2018 03:39 PM VA-TOBACCO USE ADVICE [facility] Feb 17, 2018 03:39 PM 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 [facility] Feb 17, 2018 03:39 PM VA-TOBACCO USE MED NO [facility] Feb 17, 2018 03:39 PM VA-TOBACCO USE [place] 30 MIN OF WAKE UP [facility] Feb 17, 2018 03:39 PM VA-TOBACCO USER EVERY DAY [facility] Feb 12, 2017 12:38 PM CURRENT TOBACCO USER [facility] Apr 25, 2015 07:50 AM CURRENT TOBACCO USER [facility] Apr 21, 2014 08:25 AM CURRENT TOBACCO USER [facility] Apr 20, 2013 10:04 AM CURRENT TOBACCO USER [facility] Mar 20, 2012 09:53 AM CURRENT TOBACCO USER [facility] Feb 06, 2011 09:44 AM CURRENT TOBACCO USER [facility] Jan 02, 2010 09:22 AM CURRENT TOBACCO USER [facility]
--- NOTE | 2024-04-05 10:40 | CRLHL7_ITS ---
For Patients: As a result of the Century Cures Act, medical imaging exams and procedure reports are released immediately into your electronic medical record. You may view this report before your referring provider. If you have questions, please contact your health care provider. INDICATION: Shortness of breath TECHNIQUE: Chest 2 views. COMPARISON: None FINDINGS: Cardiovascular and mediastinum: Heart size and vasculature are normal in caliber and appearance. Mediastinum is within normal limits. Lungs and pleural spaces: The lungs are hyperinflated. Prominent bronchovascular markings. Ill-defined opacification right perihilar region. Subtle opacifications right base and possibly left. Linear changes at both lung bases. Blunting of the costophrenic angles with thickening of the fissure suggesting small pleural effusions versus scarring. Bones and soft tissues: No significant findings. IMPRESSION: COPD with prominent bronchovascular markings. Superimposed right parahilar and bibasilar opacifications greater on the right consistent with pneumonia and/or CHF. Blunting both costophrenic angles may be due to hyperinflation, scarring or small pleural effusions. Dictated by Rahul Brown MD @ 04/05/2024 11:22:23 AM (Electronically Signed)
[2024-04-05 11:22] LABS: HCO3 VBG 24 mmol/L (21-28); PCO2 VBG 41 mmHG (40-50); PO2 VBG 35.3 mmHG (25-47); pH VBG 7.367 (7.32-7.43)
[2024-04-05 11:26] LABS: Troponin, Point-of-Care* 0.01 ng/ml (0.01-0.04)
[2024-04-05 11:30] LABS: Basophils Absolute Auto 0.02 K/uL (0.00-0.30); Basophils Percent Auto 0.2 % (0.0-3.0); Eosinophils Absolute Auto 0.12 K/uL (0.00-0.50); Eosinophils Percent Auto 1.4 % (0.0-7.0); Hematocrit 35.3 % (37.0-53.0); Hemoglobin* 11.5 gm/dL (13.5-17.5); Immature Granulocytes Abs Auto 0.08 K/uL (0.00-0.30); Lymphocytes Percent Auto 7.4 % (20-44); Mean Corpuscular HGB Conc 33 gm/dL (32-36); Mean Corpuscular Hemoglobin 32 pg (26-34); Mean Corpuscular Volume 97 fL (80-100); Platelet Count* 174 K/uL (140-440); RDW Coefficient of Variation % 15.2 % (11.5-15.5); Red Blood Count 3.63 m/uL (4.30-5.90); White Blood Count* 8.33 K/uL (4.50-11.00)
[2024-04-05 11:32] LABS: Slide Review Reflex No
[2024-04-05 11:42] LABS: Albumin* 3.8 g/dL (3.3-5.0); Chloride* 101 mmol/L (96-114)
[2024-04-05 11:42] LABS: SARS PCR* Negative SARS-CoV-2 (Negative)
[2024-04-05 11:43] LABS: Potassium* 4.2 mmol/L (3.6-5.1); Sodium* 132 mmol/L (135-149)
[2024-04-05 11:45] LABS: Creatinine* 0.9 mg/dL (0.5-1.5); Est. Creatinine Clearance* 71.59; Estimated Glomerular Filt Rate 87 ml/min
--- OUTSIDE RECORDS SUMMARY | 2024-04-05 11:45 | XMS_ITS | Continuity of Care Document ---
Author Name [facility] Organization [facility] Care Team Providers Care Marzipan Maker Name Role Phone [facility] Unavailable Unavailable Problems Combined list of problems from Department of Defense and Veterans Affairs facilities. It does not include entries that were removed or entered in error. Problem Status Onset Date Problem Type Date of Resolution Comments Source CVD - Cerebrovascular Disease ([facility] 82941935) Active 03/19/20 20 Condition May 01, 2020 Entered By: YOAV CHAUHAN Comment: 03/19/20: L MCA CVA, Admit ANW. Cardio-embol ic d/t Warfarin DC [facility] CAD - Coronary Artery Disease ([facility] 62279142) Active 01/27/20 20 Condition Mar 13, 2020 Entered By: YOAV CHAUHAN Comment: 01/27/20: LAD and Dx stented w/SATHYA at [facility]. Plavix +ASA thru 01/26/21 [facility] Peripheral arterial insufficiency Active 01/21/20 20 Condition Mar 13, 2020 Entered By: YOAV CHAUHAN Comment: 01/21/20: L femoral Art occlusion per [facility]-->Fem -Tibial bypass planned [facility] Allergic rhinitis (SNOMED CT 90279981) Active Condition [facility] Atrial fibrillation (SNOMED CT 98066231) Active Condition Apr 26, 2015 Entered By: YOAV CHAUHAN Comment: Warfarin through Miryam Rodriguez [facility] Co-Managed Care Active Condition Dec 25, 2017 Entered By: YOAV CHAUHAN Comment: Dr Garcia, Michael [place], F: [phone] , [facility] COPD - Chronic Obstructive Pulmonary Disease ([facility] 82085893) Active Condition Dec 25, 2017 Entered By: YOAV CHAUHAN Comment: Mometasone & Albuterol MDI's [facility] [place] of toe Active Condition Sep 08, 2019 Entered By: YOAV CHAUHAN Comment: R middle toe [facility] Current smoker Active Condition Apr 082015 Entered By: YOAV CHAUHAN Comment: Cigars, not cigarettes [facility] Essential hypertension (SNOMED CT 94863674) Active Condition [facility] Glucose intolerance Active Condition [facility] Nocturia due to benign prostatic hypertrophy Active Condition [facility] Health Maintenance (ICD-9-CM V65.9) Inactive Condition 04[facility]26/2015 [facility] Diagnosis: ICD-10-CM Z00.01 Encounter for general adult medical exam w abnormal findings Active Diagnosis [facility] Diagnosis: ICD-10-CM Z79.01 senior care (current) use of anticoagulants Active Diagnosis [facility] Medications Combined list of outpatient [...] BREATH RESPIR ATORY (INHAL ATION) ACTIVE 07/17/2024 [id number] 4 AFRICA CHAUHAN 2023 2 [facility] APIXABAN 5MG TAB TAKE ONE TABLET BY MOUTH EVERY 12 HOURS TO PREVENT BLOOD CLOTS AND STROKE (ELIQUIS ) ORAL ACTIVE 05/29/2024 [id number] 4 MARIANO GARCIA 2023 180 [facility] APIXABAN 5MG TAB TAKE ONE TABLET BY MOUTH EVERY 12 HOURS TO PREVENT BLOOD CLOTS AND STROKE (ELIQUIS ) ORAL DISCONT INUED 05/09/2023 [id number] 3 MARIANO GARCIA 2022 180 [facility] CHOLECALCIF JONNA 25MCG (1,000UNIT) TAB TAKE FIVE TABLETS BY MOUTH QOD ORAL ACTIVE AFRICA CHAUHAN 2016 [facility] FLUTICASONE 250MCG/SALM ETEROL 50MCG INHL,ORAL,D ISKUS,60 INHALE 1 PUFF BY INHALATI ON TWICE A DAY FOR COPD RESPIR ATORY (INHAL ATION) ACTIVE 07/17/2024 [id number] 4 AFRICA CHAUHAN 2023 3 [facility] FLUTICASONE 250MCG/SALM ETEROL 50MCG INHL,ORAL,D ISKUS,60 INHALE 1 PUFF BY INHALATI ON TWICE A DAY FOR COPD THIS REPLACES YOUR MOMETASO NE RESPIR ATORY (INHAL ATION) DISCONT INUED 08/08/2023 [id number] 4 AFRICA CHAUHAN 2022 3 [facility] FUROSEMIDE 20MG TAB TAKE ONE TABLET BY MOUTH THREE TIMES A WEEK FOR HEART FAILURE ORAL ACTIVE 03/18/2025 [id number] 4 BEATRIZ HAWKINS 2023 39 [facility] FUROSEMIDE 20MG TAB TAKE ONE TABLET BY MOUTH THREE TIMES A WEEK FOR HEART FAILURE ORAL DISCONT INUED 02/25/2024 [id number] 3 Hong DONAHUE A 2022 39 [facility] METOPROLOL TARTRATE 100MG TAB TAKE ONE TABLET BY MOUTH TWICE A DAY FOR BLOOD PRESSURE ORAL ACTIVE 12/23/2024 [id number] 4 AFRICA CHAUHAN 2023 180 [facility] METOPROLOL TARTRATE 100MG TAB TAKE ONE TABLET BY MOUTH TWICE A DAY FOR BLOOD PRESSURE ORAL DISCONT INUED 12/13/2023 [id number] 4 AFRICA CHAUHAN 2022 180 [facility] NIFEDIPINE (EQV-CC) 60MG TAB,SA TAKE ONE TABLET BY MOUTH EVERY DAY FOR BLOOD PRESSURE ORAL DISCONT INUED BY PROVIDE R 08/08/2023 [id number] 3 AFRICA CHAUHAN 2022 90 [facility] NIFEDIPINE (EQV-CC) 90MG TAB,SA TAKE ONE TABLET BY MOUTH EVERY DAY FOR BLOOD PRESSURE ORAL ACTIVE 07/17/2024 [id number] 4 AFRICA CHAUHAN 2023 90 [facility] NIFEDIPINE (EQV-CC) 90MG TAB,SA TAKE ONE TABLET BY MOUTH EVERY DAY FOR BLOOD PRESSURE INCREASE D DOSE PER CO-MANAG ED CARE INCREASE D DOSE PER CO-MANAG ED CARE ORAL DISCONT INUED 12/13/2023 [id number] 4 AFRICA CHAUHAN 2022 90 [facility] POTASSIUM CHLORIDE 10MEQ TAB,SA TAKE ONE TABLET BY MOUTH THREE TIMES A WEEK FOR POTASSIU M SUPPLEME NT TAKE WITH FUROSEMI DE ORAL 02/25/2024 [id number] 3 Hong DONAHUEKA A 2022 39 [facility] ROSUVASTATI N CA 20MG TAB TAKE ONE TABLET BY MOUTH AT BEDTIME FOR CORONARY ARTERY DISEASE ORAL ACTIVE 07/17/2024 [id number] 4 AFRICA CHAUHAN 2023 90 [facility] ROSUVASTATI N CA 20MG TAB TAKE ONE TABLET BY MOUTH AT BEDTIME FOR CORONARY ARTERY DISEASE ORAL DISCONT INUED 08/08/2023 [id number] 4 AFRICA CHAUHAN 2022 90 [facility] TAMSULOSIN HCL 0.4MG CAP TAKE ONE CAPSULE BY MOUTH EVERY EVENING FOR PROSTATE ORAL ACTIVE 07/17/2024 [id number] 4 AFRICA CHAUHAN 2023 30 [facility] Allergies, Adverse Reactions, Alerts Combined list of allergies from Department of Defense and Veterans Affairs facilities. It does not include entries that were removed or entered in error. Substance Category Reaction Severity Reaction type Status Date Reported Comments Source LISINOPRIL Propensity to adverse reactions to drug (finding) Cough active 0 [facility] Immunizations Combined list of available immunizations from the Department of Defense and Veterans Affairs facilities. Immunization Series Date Given Administered By Site Reaction Lot Number CVX Code Drug Sprinkler Inspector Status Comments Source COVID-19 ([employer]), MRNA, LNP-S, BIVALENT, PF, 30 MCG/0.3 ML DOSE 2022 300 complet ed [facility] COVID-19 ([employer]), MRNA, LNP-S, PF, 30 MCG/0.3 ML DOSE, JAMES-SUCROSE (AGES 12+ YEARS) 2021 217 complet ed [facility] COVID-19 ([employer]), MRNA, LNP-S, PF, 30 MCG/0.3 ML DOSE 2020 208 complet ed [facility] ZOSTER RECOMBINANT 2 2020 187 complet ed [facility] INFLUENZA VACCINE, QUADRIVALENT, ADJUVANTED 2020 205 complet [facility] INFLUENZA, UNSPECIFIED FORMULATION 2020 88 complet ed [facility] ZOSTER RECOMBINANT 1 2020 187 complet ed [facility] COVID-19 ([employer]), MRNA, LNP-S, PF, 30 MCG/0.3 ML DOSE 2 2020 208 complet ed [facility] COVID-19 ([employer]), MRNA, LNP-S, PF, 30 MCG/0.3 ML DOSE [...] PPV23 2016 33 complet ed [employer] , [id number], 06/03/18 [facility] TD (ADULT), 2 [...] Jul 17, 2023 04:23 PM Reporting Lab: [facility] [address] Performing Lab: [facility] [address] [facility] URINALYS IS SPECIFIC GRAVITY OF URINE 1.006 1.003 - 1.035 07/16 Specimen Type: URINE No comment entered. Ordering Provider: TERRENCE CHAUHAN Report Released Date/Time: Jul 17, 2023 04:23 PM Reporting Lab: [facility] [address] Performing Lab: [facility] [address] [facility] URINALYS IS BILIRUBIN. TOTAL [PRESENCE] IN URINE BY TEST STRIP NEGATIVE 07/16 Specimen Type: URINE No comment entered. Ordering Provider: TERRENCE CHAUHAN Report Released Date/Time: Jul 17, 2023 04:23 PM Reporting Lab: [facility] [address] Performing Lab: [place] [address] [place] [facility] URINALYS IS KETONES [MASS/VOLU ME] IN URINE BY TEST STRIP NEGATIVE 07/16 Specimen Type: URINE No comment entered. Ordering Provider: TERRENCE CHAUHAN Report Released Date/Time: Jul 17, 2023 04:23 PM Reporting Lab: [facility] [address] Performing Lab: [facility] [address] [place] [facility] URINALYS IS GLUCOSE [MASS/VOLU ME] IN URINE BY TEST STRIP NEGATIVE mg/dL 07/16 Specimen Type: URINE No comment entered. Ordering Provider: TERRENCE CHAUHAN Report Released Date/Time: Jul 17, 2023 04:23 PM Reporting Lab: [facility] [address] Performing Lab: [facility] [address] [place] [facility] URINALYS IS PROTEIN [MASS/VOLU ME] IN URINE BY TEST STRIP NEGATIVE mg/dL 07/16 Specimen Type: URINE No comment entered. Ordering Provider: TERRENCE CHAUHAN Report Released Date/Time: Jul 17, 2023 04:23 PM Reporting Lab: [facility] [address] Performing Lab: [facility] [address] [place] [facility] URINALYS IS PH OF URINE BY TEST STRIP 7.0 5.0 - 8.0 07/16 Specimen Type: URINE No comment entered. Ordering Provider: TERRENCE CHAUHAN Report Released Date/Time: Jul 17, 2023 04:23 PM Reporting Lab: [facility] [address] Performing Lab: [place] [address] [place] [facility] URINALYS IS LEUKOCYTES [#/AREA] IN URINE SEDIMENT BY MICROSCOPY HIGH POWER FIELD <1/[HPF] 0 - 7 07/16 Specimen Type: URINE No comment entered. Ordering Provider: TERRENCE CHAUHAN Report Released Date/Time: Jul 17, 2023 04:23 PM Reporting Lab: [facility] [address] Performing Lab: [facility] [address] [place] [facility] URINALYS IS BACTERIA [PRESENCE] IN URINE SEDIMENT BY LIGHT MICROSCOPY NONE SEEN 07/16 Specimen Type: URINE No comment entered. Ordering Provider: TERRENCE CHAUHAN Report Released Date/Time: Jul 17, 2023 04:23 PM Reporting Lab: [facility] [address] Performing Lab: [facility] [address] [place] [facility] URINALYS IS ERYTHROCYT ES [#/AREA] IN URINE SEDIMENT BY MICROSCOPY HIGH POWER FIELD <1/[HPF] 0 - 3 07/16 Specimen Type: URINE No comment entered. Ordering Provider: TERRENCE CHAUHAN Report Released Date/Time: Jul 17, 2023 04:23 PM Reporting Lab: [facility] [address] Performing Lab: [facility] [address] [place] [facility] URINALYS IS APPEARANCE OF URINE CLEAR 07/16 Specimen Type: URINE No comment entered. Ordering Provider: TERRENCE CHAUHAN Report Released Date/Time: Jul 17, 2023 04:23 PM Reporting Lab: [facility] [address] Performing Lab: [facility] [address] [place] [facility] URINALYS IS EPITHELIAL CELLS.SQUA MOUS [#/AREA] IN URINE SEDIMENT BY MICROSCOPY HIGH POWER FIELD NONE SEEN/[HP F] 07/16 Specimen Type: URINE No comment entered. Ordering Provider: TERRENCE CHAUHAN Report Released Date/Time: Jul 17, 2023 04:23 PM Reporting Lab: [facility] [address] Performing Lab: [facility] [address] [place] [facility] URINALYS IS HEMOGLOBIN [PRESENCE] IN URINE BY TEST STRIP NEGATIVE 07/16 Specimen Type: URINE No comment entered. Ordering Provider: TERRENCE CHAUHAN Report Released Date/Time: Jul 17, 2023 04:23 PM Reporting Lab: [facility] [address] Performing Lab: [facility] [address] [place] [facility] URINALYS IS NITRITE [PRESENCE] IN URINE BY TEST STRIP NEGATIVE 07/16 Specimen Type: URINE No comment entered. Ordering Provider: TERRENCE CHAUHAN Report Released Date/Time: Jul 17, 2023 04:23 PM Reporting Lab: [facility] [address] Performing Lab: [facility] [address] [place] [facility] URINALYS IS LEUKOCYTE ESTERASE [PRESENCE] IN URINE BY TEST STRIP NEGATIVE 07/16 Specimen Type: URINE No comment entered. Ordering Provider: TERRENCE CHAUHAN Report Released Date/Time: Jul 17, 2023 04:23 PM Reporting Lab: [facility] [address] Performing Lab: [facility] [address] [place] [facility] BASIC METABOLI C PANEL+MG CREATININE [MASS/VOLU ME] IN SERUM OR PLASMA 1.3 mg/dL 0.7 - 1.2 07/16 H Specimen Type: PLASMA No comment entered. Ordering Provider: TERRENCE CHAUHAN Report Released Date/Time: August 07, 2022 02:21 PM Reporting Lab: [facility] [address] Performing Lab: [facility] [address] [place] [facility] BASIC METABOLI C PANEL+MG UREA NITROGEN [MASS/VOLU ME] IN SERUM OR PLASMA 15 mg/dL 8 - 26 07/16 Specimen Type: PLASMA No comment entered. Ordering Provider: TERRENCE CHAUHAN Report Released Date/Time: August 07, 2022 02:21 PM Reporting Lab: [facility] [address] Performing Lab: [facility] [address] [place] [facility] BASIC METABOLI C PANEL+MG GLUCOSE [MASS/VOLU ME] IN SERUM OR PLASMA 84 mg/dL 70 - 100 07/16 Specimen Type: PLASMA No comment entered. Ordering Provider: TERRENCE CHAUHAN Report Released Date/Time: August 07, 2022 02:21 PM Reporting Lab: [facility] [address] Performing Lab: [facility] [address] [place] [facility] BASIC METABOLI C PANEL+MG SODIUM [MOLES/VOL UME] IN SERUM OR PLASMA 137 mmol/L 136 - 145 07/16 Specimen Type: PLASMA No comment entered. Ordering Provider: TERRENCE CHAUHAN Report Released Date/Time: August 07, 2022 02:21 PM Reporting Lab: [facility] [address] Performing Lab: [facility] [address] [place] [facility] BASIC METABOLI C PANEL+MG POTASSIUM [MOLES/VOL UME] IN SERUM OR PLASMA 4.6 mmol/L 3.5 - 5.1 07/16 Specimen Type: PLASMA No comment entered. Ordering Provider: TERRENCE CHAUHAN Report Released Date/Time: August 07, 2022 02:21 PM Reporting Lab: [facility] [address] Performing Lab: [facility] [address] [place] [facility] BASIC METABOLI C PANEL+MG CHLORIDE [MOLES/VOL UME] IN SERUM OR PLASMA 105 mmol/L 98 - 107 07/16 Specimen Type: PLASMA No comment entered. Ordering Provider: TERRENCE CHAUHAN Report Released Date/Time: August 07, 2022 02:21 PM Reporting Lab: [facility] [address] Performing Lab: [facility] [address] [place] [facility] BASIC METABOLI C PANEL+MG CARBON DIOXIDE, TOTAL [MOLES/VOL UME] IN SERUM OR PLASMA 24 mmol/L 22 - 29 07/16 Specimen Type: PLASMA No comment entered. Ordering Provider: TERRENCE CHAUHAN Report Released Date/Time: August 07, 2022 02:21 PM Reporting Lab: [facility] [address] Performing Lab: [facility] [address] [place] [facility] BASIC METABOLI C PANEL+MG CALCIUM [MASS/VOLU ME] IN SERUM OR PLASMA 8.9 mg/dL 8.4 - 10.2 07/16 Specimen Type: PLASMA No comment entered. Ordering Provider: TERRENCE CHAUHAN Report Released Date/Time: August 07, 2022 02:21 PM Reporting Lab: [facility] [address] Performing Lab: [facility] [address] [place] [facility] BASIC METABOLI C PANEL+MG MAGNESIUM [MASS/VOLU ME] IN SERUM OR PLASMA 2.1 mg/dL 1.6 - 2.6 07/16 Specimen Type: PLASMA No comment entered. Ordering Provider: TERRENCE CHAUHAN Report Released Date/Time: August 07, 2022 02:21 PM Reporting Lab: [facility] [address] Performing Lab: [facility] [address] [place] [facility] BASIC METABOLI C PANEL+MG ANION GAP IN SERUM OR PLASMA 8 mmol/L 5 - 15 07/16 Specimen Type: PLASMA No comment entered. Ordering Provider: TERRENCE CHAUHAN Report Released Date/Time: August 07, 2022 02:21 PM Reporting Lab: [facility] [address] Performing Lab: [facility] [address] [place] [facility] BASIC METABOLI C PANEL+MG GLOMERULAR FILTRATION RATE/1.73 SQ M.PREDICTE D [VOLUME RATE/AREA] IN SERUM, PLASMA OR BLOOD BY CREATININE -BASED FORMULA (CKD-EPI 2020) 56 60 07/16 L Specimen Type: PLASMA No comment entered. Ordering Provider: TERRENCE CHAUHAN Report Released Date/Time: August 07, 2022 02:21 PM Reporting Lab: [facility] [address] Performing Lab: [facility] [address] [place] [facility] CBC LEUKOCYTES [#/VOLUME] IN BLOOD BY AUTOMATED COUNT 8.72 10*3/uL 4.0 - 11.0 04/11 /2024 Specimen Type: BLOOD No comment entered. Ordering Provider: TERRENCE CHAUHAN Report Released Date/Time: August 07, 2022 02:21 PM Reporting Lab: [facility] [address] Performing Lab: [facility] [address] [place] [facility] CBC ERYTHROCYT ES [#/VOLUME] IN BLOOD BY AUTOMATED COUNT 4.11 10*6/uL 4.6 - 6.2 07/16 L Specimen Type: BLOOD No comment entered. Ordering Provider: TERRENCE CHAUHAN Report Released Date/Time: August 07, 2022 02:21 PM Reporting Lab: [facility] [address] Performing Lab: [facility] [address] [place] [facility] CBC HEMOGLOBIN [MASS/VOLU ME] IN BLOOD 13.4 g/dL 13.5 - 17.9 07/16 L Specimen Type: BLOOD No comment entered. Ordering Provider: TERRENCE CHAUHAN Report Released Date/Time: August 07, 2022 02:21 PM Reporting Lab: [facility] [address] Performing Lab: [facility] [address] [place] [facility] CBC HEMATOCRIT [VOLUME FRACTION] OF BLOOD BY AUTOMATED COUNT 39.7 41 - 54 07/16 L Specimen Type: BLOOD No comment entered. Ordering Provider: TERRENCE CHAUHAN Report Released Date/Time: August 07, 2022 02:21 PM Reporting Lab: [facility] [address] Performing Lab: [facility] [address] [place] [facility] CBC MCV [ENTITIC VOLUME] BY AUTOMATED COUNT 96.6 fL 80 - 100 07/16 Specimen Type: BLOOD No comment entered. Ordering Provider: TERRENCE CHAUHAN Report Released Date/Time: August 07, 2022 02:21 PM Reporting Lab: [facility] [address] Performing Lab: [facility] [address] [place] [facility] CBC MCH [ENTITIC MASS] BY AUTOMATED COUNT 32.6 pg 27 - 33 07/16 Specimen Type: BLOOD No comment entered. Ordering Provider: TERRENCE CHAUHAN Report Released Date/Time: August 07, 2022 02:21 PM Reporting Lab: [facility] [address] Performing Lab: [facility] [address] [place] [facility] CBC MCHC [MASS/VOLU ME] BY AUTOMATED COUNT 33.8 g/dL 32.0 - 37.5 07/16 Specimen Type: BLOOD No comment entered. Ordering Provider: TERRENCE CHAUHAN Report Released Date/Time: August 07, 2022 02:21 PM Reporting Lab: [facility] [address] Performing Lab: [facility] [address] [place] [facility] CBC PLATELETS [#/VOLUME] IN BLOOD BY AUTOMATED COUNT 159 10*3/uL 150 - 400 07/16 Specimen Type: BLOOD No comment entered. Ordering Provider: TERRENCE CHAUHAN Report Released Date/Time: August 07, 2022 02:21 PM Reporting Lab: [facility] [address] Performing Lab: [facility] [address] [place] [facility] CBC PLATELET MEAN VOLUME [ENTITIC VOLUME] IN BLOOD BY AUTOMATED COUNT 9.6 fL 7.4 - 10.4 07/16 Specimen Type: BLOOD No comment entered. Ordering Provider: TERRENCE CHAUHAN Report Released Date/Time: August 07, 2022 02:21 PM Reporting Lab: [facility] [address] Performing Lab: [facility] [address] [place] [facility] CBC ERYTHROCYT E DISTRIBUTI ON WIDTH [RATIO] BY AUTOMATED COUNT 14.1 11.5 - 14.5 07/16 Specimen Type: BLOOD No comment entered. Ordering Provider: TERRENCE CHAUHAN Report Released Date/Time: August 07, 2022 02:21 PM Reporting Lab: [facility] [address] Performing Lab: [facility] [address] [place] [facility] HEMOGLOB IN A1C HEMOGLOBIN [...] August 07, 2022 02:21 PM Reporting Lab: [facility] [address] Performing Lab: [facility] [address] [place] [facility] LIVER FUNCTION TESTS BILIRUBIN. TOTAL [MASS/VOLU ME] IN SERUM OR PLASMA 0.8 mg/dL 0.2 - 1.2 07/16 Specimen Type: PLASMA No comment entered. Ordering Provider: TERRENCE CHAUHAN Report Released Date/Time: August 07, 2022 02:21 PM Reporting Lab: [facility] [address] Performing Lab: [facility] [address] [place] [facility] LIVER FUNCTION TESTS ALKALINE PHOSPHATAS E [ENZYMATIC ACTIVITY/V OLUME] IN SERUM OR PLASMA 52 U/L 40 - 150 07/16 Specimen Type: PLASMA No comment entered. Ordering Provider: TERRENCE CHAUHAN Report Released Date/Time: August 07, 2022 02:21 PM Reporting Lab: [facility] [address] Performing Lab: [facility] [address] [place] [facility] LIVER FUNCTION TESTS ALANINE AMINOTRANS FERASE [ENZYMATIC ACTIVITY/V OLUME] IN SERUM OR PLASMA 20 U/L <55 - 55 07/16 Specimen Type: PLASMA No comment entered. Ordering Provider: TERRENCE CHAUHAN Report Released Date/Time: August 07, 2022 02:21 PM Reporting Lab: [facility] [address] Performing Lab: [facility] [address] [place] [facility] LIVER FUNCTION TESTS ASPARTATE AMINOTRANS FERASE [ENZYMATIC ACTIVITY/V OLUME] IN SERUM OR PLASMA 19 U/L <34 - 34 07/16 Specimen Type: PLASMA No comment entered. Ordering Provider: TERRENCE CHAUHAN Report Released Date/Time: August 07, 2022 02:21 PM Reporting Lab: [facility] [address] Performing Lab: [facility] [address] [place] [facility] LIVER FUNCTION TESTS GAMMA GLUTAMYL TRANSFERAS E [ENZYMATIC ACTIVITY/V OLUME] IN SERUM OR PLASMA 38 U/L <64 - 64 07/16 Specimen Type: PLASMA No comment entered. Ordering Provider: TERRENCE CHAUHAN Report Released Date/Time: August 07, 2022 02:21 PM Reporting Lab: [facility] [address] Performing Lab: [facility] [address] [place] [facility] PSA PROSTATE SPECIFIC AG [MASS/VOLU ME] IN SERUM OR PLASMA 3.84 ng/mL <4.00 - 4.00 07/16 Specimen Type: SERUM No comment entered. Ordering Provider: TERRENCE CHAUHAN Report Released Date/Time: August 07, 2022 02:21 PM Reporting Lab: [facility] [address] Performing Lab: [facility] [address] [place] [facility] ALT/SGPT ALANINE AMINOTRANS FERASE [ENZYMATIC ACTIVITY/V OLUME] IN SERUM OR PLASMA 19 U/L <55 - 55 04/16 Specimen Type: PLASMA No comment entered. Ordering Provider: HUYEN HYLTON Report Released Date/Time: Mar 07, 2023 02:00 PM Reporting Lab: [facility] [address] Performing Lab: [facility] [address] [place] [facility] AST/SGOT ASPARTATE AMINOTRANS FERASE [ENZYMATIC ACTIVITY/V OLUME] IN SERUM OR PLASMA 22 U/L <34 - 34 04/16 Specimen Type: PLASMA No comment entered. Ordering Provider: HUYEN HYLTON Report Released Date/Time: Mar 07, 2023 02:00 PM Reporting Lab: [address] Performing Lab: [place] [address] [place] [facility] CBC LEUKOCYTES [#/VOLUME] IN BLOOD BY AUTOMATED COUNT 8.06 10*3/uL 4.0 - 11.0 04/16 Specimen Type: BLOOD No comment entered. Ordering Provider: HUYEN HYLTON Report Released Date/Time: Mar 07, 2023 02:00 PM Reporting Lab: [place] [address] Performing Lab: [address] [facility] CBC ERYTHROCYT ES [#/VOLUME] IN BLOOD BY AUTOMATED COUNT 4.03 10*6/uL 4.6 - 6.2 04/16 L Specimen Type: BLOOD No comment entered. Ordering Provider: HUYEN HYLTON Report Released Date/Time: Mar 07, 2023 02:00 PM Reporting Lab: [place] [address] Performing Lab: [address] [facility] CBC HEMOGLOBIN [MASS/VOLU ME] IN BLOOD 13.1 g/dL 13.5 - 17.9 04/16 L Specimen Type: BLOOD No comment entered. Ordering Provider: HUYEN HYLTON Report Released Date/Time: Mar 07, 2023 02:00 PM Reporting Lab: [place] [address] Performing Lab: [address] [facility] CBC HEMATOCRIT [VOLUME FRACTION] OF BLOOD BY AUTOMATED COUNT 38.9 41 - 54 04/16 L Specimen Type: BLOOD No comment entered. Ordering Provider: HUYEN HYLTON Report Released Date/Time: Mar 07, 2023 02:00 PM Reporting Lab: [place] [address] Performing Lab: [address] [facility] CBC MCV [ENTITIC VOLUME] BY AUTOMATED COUNT 96.5 fL 80 - 100 04/16 Specimen Type: BLOOD No comment entered. Ordering Provider: HUYEN HYLTON Report Released Date/Time: Mar 07, 2023 02:00 PM Reporting Lab: [facility] [id number] Performing Lab: [place] [id number] [place] [facility] CBC MCH [ENTITIC MASS] BY AUTOMATED COUNT 32.5 pg 27 - 33 04/16 Specimen Type: BLOOD No comment entered. Ordering Provider: HUYEN HYLTON Report Released Date/Time: Mar 07, 2023 02:00 PM Reporting Lab: [place] [id number] Performing Lab: [place] [address] [place] [facility] CBC MCHC [MASS/VOLU ME] BY AUTOMATED COUNT 33.7 g/dL 32.0 - 37.5 04/16 Specimen Type: BLOOD No comment entered. Ordering Provider: HUYEN HYLTON Report Released Date/Time: Mar 07, 2023 02:00 PM Reporting Lab: [place] [address] Performing Lab: [address] [facility] CBC PLATELETS [#/VOLUME] IN BLOOD BY AUTOMATED COUNT 157 10*3/uL 150 - 400 04/16 Specimen Type: BLOOD No comment entered. Ordering Provider: HUYEN HYLTON Report Released Date/Time: Mar 07, 2023 02:00 PM Reporting Lab: [place] [address] Performing Lab: [place] [address] [place] [facility] CBC PLATELET MEAN VOLUME [ENTITIC VOLUME] IN BLOOD BY AUTOMATED COUNT 9.7 fL 7.4 - 10.4 04/16 Specimen Type: BLOOD No comment entered. Ordering Provider: HUYEN HYLTON Report Released Date/Time: Mar 07, 2023 02:00 PM Reporting Lab: [place] [address] Performing Lab: [place] [address] [place] [facility] CBC ERYTHROCYT E DISTRIBUTI ON WIDTH [RATIO] BY AUTOMATED COUNT 14.5 11.5 - 14.5 04/16 Specimen Type: BLOOD No comment entered. Ordering Provider: HUYEN HYLTON Report Released Date/Time: Mar 07, 2023 02:00 PM Reporting Lab: [facility] [address] Performing Lab: [facility] [address] [facility] CREATINI NE(INCLU SATHYA EGFR) CREATININE [MASS/VOLU ME] IN SERUM OR PLASMA 1.2 mg/dL 0.7 - 1.2 04/16 Specimen Type: PLASMA No comment entered. Ordering Provider: HUYEN HYLTON Report Released Date/Time: Mar 07, 2023 02:00 PM Reporting Lab: [facility] [address] Performing Lab: [facility] [address] [facility] CREATINI NE(INCLU SATHYA EGFR) GLOMERULAR FILTRATION RATE/1.73 SQ M.PREDICTE D [VOLUME RATE/AREA] IN SERUM, PLASMA OR BLOOD BY CREATININE -BASED FORMULA (CKD-EPI 2020) 62 60 04/16 Specimen Type: PLASMA No comment entered. Ordering Provider: HUYEN HYLTON Report Released Date/Time: Mar 07, 2023 02:00 PM Reporting Lab: [facility] [address] Performing Lab: [facility] [address] [facility] Vital Signs Combined list of inpatient and outpatient Vital Signs from Department of Defense and Veterans Affairs, ranging from 12 months to all on record, depending upon the facility. Vital Sign Value Date Comments Source SYSTOLIC BLOOD PRESSURE 135 07/17/2023 15:03:14 [facility] DIASTOLIC BLOOD PRESSURE 93 07/17/2023 15:03:14 [facility] PULSE OXIMETRY 96 07/17/2023 15:03:14 [place] [facility] WEIGHT 202.7 07/17/2023 15:03:14 [facility] BMI 26kg/m2 07/17/2023 15:03:14 [facility] PAIN 0 07/17/2023 15:03:14 [facility] HEIGHT 74 07/17/2023 15:03:14 [facility] TEMPERATURE 98.1 07/17/2023 15:03:14 [place] [facility] PULSE 82 07/17/2023 15:03:14 [facility] RESPIRATION 16 07/17/2023 15:03:14 [facility] Encounters Combined list of: 1) Encounters from 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 2) Encounters from the Department of [facility] facilities going back up to 280 months. Location Location Details Encounter Type Encounter Number Reason For Visit Attending Provider ADM Date DC Date Status Disposition Source [place] [facility] Outpatient Encounter [id number] 11/06 [place] [facility] [place] [facility] Outpatient Encounter [id number] 12/08 [place] [facility] [place] [facility] Outpatient Encounter [id number] 12/12 [place] [facility] [place] [facility] Outpatient Encounter [id number] 01/17 [place] [facility] [place] [facility] Outpatient Encounter [id number] 02/19 [place] [facility] [place] [facility] Outpatient Encounter [id number] 02/24 [place] [facility] [place] [facility] Outpatient Encounter [id number] 03/07 [facility] [place] [facility] QNHP OL DIG ASSMT&MGMT 5-10 [id number] Diagnos is: ICD-10- CM Z79.01 senior care (curren t) use of anticoa gulants
ELLEN GARCIA 05/29 [facility] [place] [facility] OFFICE O/P EST MOD 30 MIN [id number] Diagnos is: ICD-10- CM Z00.01 Encount er for general adult medical exam w abnorma l finding s
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 Social History Type Response Date Comment Sourc e Tobacco smoking status NHIS VA-TOBACCO FORMER USER 07/17/2023 [place] [facility] History of tobacco use NM-TOBACCO QUIT 1 TO < 5 YRS 07/17/2023 [facility] History of tobacco use NM-TOBACCO FORMER USER 08/07/2022 [facility] History of tobacco use NM-TOBACCO FORMER USER 10/16/2020 [facility] History of tobacco use NM-TOBACCO USE CO UNSEL NO 03/29/2019 [facility] History of tobacco use NM-TOBACCO USE WI 30 MIN OF WAKEUP 02/17/2018 [facility] History of tobacco use CURRENT TOBACCO USER 02/12/2017 [facility] History of tobacco use CURRENT TOBACCO USER 04/25/2015 [facility] History of tobacco use CURRENT TOBACCO USER 04/21/2014 [facility] History of tobacco use CURRENT TOBACCO USER 04/20/2013 [facility] History of tobacco use CURRENT TOBACCO USER 03/20/2012 [facility] History of tobacco use CURRENT TOBACCO USER 02/06/2011 [facility] History of tobacco use CURRENT TOBACCO USER 01/02/2010 [facility]
--- OUTSIDE RECORDS SUMMARY | 2024-04-05 11:45 | XMS_ITS | Encounter Summary ---
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 Name Role Phone OZ HAWKINS Primary Care [...] Patient's Relationship to Policy Kevin [facility] ORGANIZ [id number] Jan 05, 2010 [id number] [employer] ANUSHA DE PAZ PATIENT MEDICARE (WN) MEDICARE (M) PART A Jan 05, 2010 PART A [id number] [phone] ANUSHA DE PAZ PATIENT MEDICARE (WNR) MEDICARE (M) PART B Jan 05, 2010 PART B [id number] [phone] ZANDRA ANUSHA PATIENT MEDICARE (WNR) MEDICARE (M) PART A Jan 05, 2010 PART A [id number] ANUSHA DE PAZ PATIENT MEDICARE (WNR) MEDICARE (M) PART A Jan 05, 2010 PART A [id number] ZANDRA ANUSHA PATIENT MEDICARE (WNR) MEDICARE (M) PART B Jan 05, 2010 PART B [id number] [facility] [phone] ANUSHA DE PAZ PATIENT Selected Encounter This section includes the information on record at [place] for the Encounter. Date/Time Encounter Type Encounter Description Reason Pro vider Source Apr 05, 2024 10:22 AM Outpatient Encounter TELEPHONE TRIAGE IHE Encounter Template Text not used by [facility] Social History: Smoking Status (Most current) and Tobacco Use (All prior to encounter date) This section includes the most current, and the historical, smoking and tobacco- related health factors from the [place] facility where the Encounter took place. Current Smoking Status This section includes the most current smoking, or tobacco-related health factor, from the [place] facility where the Encounter took place. Date/Time Current Smoking Status Comment Facil ity Jul 17, 2023 03:00 PM VA-TOBACCO QUIT 1 TO < 5 YRS [facility] Tobacco Use History This section includes a history of the smoking, or tobacco-related health factors, that were collected on or before the date of the Encounter. The data comes from the [place] facility where the Encounter took place. Date/Time Smoking Status/Tobacco Use Comment F acility Jul 17, 2023 03:00 PM VA-TOBACCO QUIT 1 TO < 5 YRS [facility] August 07, 2022 01:30 PM VA-TOBACCO FORMER USER [facility] August 07, 2022 01:30 PM VA-TOBACCO QUIT 1 TO < 5 YRS [facility] Oct 16, 2020 02:45 PM VA-TOBACCO FORMER USER [facility] Oct 16, 2020 02:45 PM VA-TOBACCO QUIT 15 YRS OR MORE [facility] Mar 29, 2019 10:59 AM VA-TOBACCO USE > 1 5 LESS THAN 30 YEARS [facility] Mar 29, 2019 10:59 AM VA-TOBACCO USE ADVICE [facility] Mar 29, 2019 10:59 AM VA-TOBACCO USE RESET MERCHANDISER NO [facility] Mar 29, 2019 10:59 AM VA-TOBACCO USE MED NO [facility] Mar 29, 2019 10:59 AM VA-TOBACCO USE WI 30 MIN OF WAKE UP [facility] Mar 29, 2019 10:59 AM VA-TOBACCO USER EVERY DAY [facility] Feb 17, 2018 03:39 PM VA-TOBACCO USE 30 YEARS OR MORE [facility] Feb 17, 2018 03:39 PM VA-TOBACCO USE ADVICE [facility] Feb 17, 2018 03:39 PM VA-TOBACCO USE RESET MERCHANDISER NO [facility] Feb 17, 2018 03:39 PM VA-TOBACCO USE MED NO [facility] Feb 17, 2018 03:39 PM VA-TOBACCO USE WI 30 MIN OF WAKE UP [facility] Feb 17, 2018 03:39 PM VA-TOBACCO USER EVERY DAY [facility] Feb 12, 2017 12:38 PM CURRENT TOBACCO USER [facility] Apr 25, 2015 07:50 AM CURRENT TOBACCO USER [facility] Apr 21, 2014 08:25 AM CURRENT TOBACCO USER [facility] Apr 20, 2013 10:04 AM CURRENT TOBACCO USER [facility] Mar 20, 2012 09:53 AM CURRENT TOBACCO USER [facility] Feb 06, 2011 09:44 AM CURRENT TOBACCO USER [facility] Jan 02, 2010 09:22 AM CURRENT TOBACCO USER [facility] Encounter Notes: All associated encounter notes This section contains the clinical notes associated to the Encounter. Date/Time Encounter Note(s) Provider Source Apr 05, 2024 10:22 AM RN PROGRESS NOTE: [facility] TITLE: CCC: CLINICAL TRIAGE STANDARD TITLE: RN PROGRESS NOTE DATE OF NOTE: APR 05, 2024@10:22:04 ENTRY DATE: APR 05, 2024@10:22:04 AUTHOR: PATRICIA REDD COSIGNER: URGENCY: STATUS: COMPLETED Patient Demographics Patient Name: ANUSHA DE PAZ Patient Primary Address: [address] [place] [address] Patient Primary Phone: [phone] Patient : 1945 Patient Age: 79 Caller/Recipient Relation to Patient: Self Caller Name: ANUSHA DE PAZ Emergency Contact: JAVIER DE PAZ Triage Summary Conducted triage/discussed symptoms Pain Score: 0 (No Pain) Utilized the Triage Tool: Yes Chief Complaint: Difficulty Breathing System WHEN: Now, 911 Nurse's Recommendation / WHEN: Now System WHERE: Emergency department Nurse's Recommendation / WHERE: ED Other Nurse's Other / WHERE: is in local ER parking lot. Patient Disposition Patient/Caregiver agrees to plan of care: Yes Patient is Urgent or Emergent Nursing Plan and Disposition Referred patient to higher level of care Instructed to go to Emergency Room (ER) Advised of Financial Disclaimer: Patient advised that recommendation for care provided during the call does not constitute an approval or authorization for payment by the [place] or its staff. Patient advised to report a community ED visit to the [facility] Office of Community Care at within 72 hours. Other course(s) of action Provided guidance for worsening symptoms: *Caller/Patient* advised to call facilities [place] Clinical Contact Center or seek immediate medical attention for new or worsening symptoms Nurse Summary Nurse Summary: PATIENT CONCERN/DURATION/ONSET: [place] calls to tell investment underwriter he spoke with an RN about one hour ago. The nurse disposition from previous triage was less than 24 hours. Ameena tells investment underwriter there was an opening tomorrow which he declined as he wanted to be seen today. He is now calling from the local ER parking lot and has decided he wants an appt. at [facility] that was available tomorrow. [place] reports difficulty breathing which is mainly during NOC's. He describes the breathing as panting. He does have some production at times but has not visualized the mucous to describe color. Ameena then describes severe difficulty breathing with activity such as getting a cup of coffee. Triage is completed again with this additional information. denies: chest pain, N/V, fever, sore throat dizziness at time of call. Pain: Denies pain. WHAT HAS PATIENT TRIED TO TREAT THE SYMPTOMS: [place] is using his inhalers more than prescribed. HISTORY/PREVIOUS TREATMENT: COPD CAD A-fib CVD Peripheral artery insufficiency WHAT IS PATIENT GOAL FOR THE CALL: calls to schedule an appt. with his PACT tomorrow. Was Virtual Care Visit considered (TELE or VVC) No, ER is recommended. [employer]ENOGR[facility] [facility] REPORTER DISPOSITION: This [place] [facility] RN recommends ER secondary to reported difficulty breathing. Ameena is currently at local ER parking lot. [facility] is over 50 miles from his location. agrees to ER evaluation. Advised to have local ER facility call [facility] Centralized Call Center at ([phone]) within 72 hours of [id number]-ei-[id number]-of-care to report visit. All care with the exception of urgent care or Emergent/Inpatient (self-presenting) need pre-authorization prior to receiving care. We cannot authorize care to be paid after care has been completed. *Reinforced recommendation to that prolonging care could result in worsening of symptoms. s/s to call 911 discussed at time of call (chest pain, feeling faint, worse difficulty breathing, call 911) [place] may be reached at: [phone] This note was created by a 3 [facility] analyst food and beverage. Please do not alert this nurse by adding as a signer for future communications. Alerts are not monitored by this user, please reach out to [facility] Leadership instead if indicated Clinical Contact Center Codes Clinic/Location: 3 [facility] PHONE CCC RN Decision Support System Output: Triage Complete Triage Date: 04/05/2024, 10:13 AM Triage Note: Decision Support Tool Used: [facility] Phone Triage 05 Apr 2024 16:07:07 +0000 [place] Demographics 79 y/o Male Results CC: Difficulty Breathing Software suggested: , 91 Software suggested follow-up location: Emergency department Values and Measures Duration of CC: 1 Weeks Positive Responses HPI: dyspnea, severe VS: temperature not taken Negative Responses Denies: HPI: chest pain Denies: HPI: cough, new or worsening Denies: HPI: wheezing, new or worsening Denies: PMH: CHF Education Verbal Education Provided: Based on your responses, you should be treated in the emergency room. Take action: You need to see a provider now or your condition could worsen. Consider calling an ambulance. Education Log Delay in care could cause worsening of symptoms, poor outcome or even . IMPORTANT: This note was created by [facility] Clinical Contact Center staff. Please do not alert the staff member by adding them as a signer for future communications. Alerts are not monitored by this user. /naina/ PATRICIA BAUMAN 23 [facility] Signed: 04/05/2024 10:22 PATRICIA REDD [facility]
[2024-04-05 11:46] LABS: Alanine Aminotransferase* 24 U/L (4-50); Alkaline Phosphatase* 54 U/L (40-150); Anion Gap 10 mEq/L (7-15); Aspartate Amino Transferase* 22 U/L (12-35); Bilirubin Direct* 0.4 mg/dL (0.0-0.5); Bilirubin Total* 1.5 mg/dL (0.1-1.5); Blood Urea Nitrogen* 19 mg/dL (7-30); Calcium* 8.4 mg/dL (8.4-10.6); Carbon Dioxide* 21 mmol/L (20-32); Glucose* 204 mg/dL (60-115); Total Protein* 6.4 g/dL (6.0-8.3)
[2024-04-05 11:48] LABS: C Reactive Protein* 3.8 mg/dL (0.5-1.0)
[2024-04-05 11:50] LABS: D Dimer Quantitative* 0.41 ug/ml (0.00-0.50)
--- NOTE | 2024-04-05 11:54 | ED_ITS ---
HPI - General Adult General Date Seen: 04/05/24 Chief complaint: Shortness of Breath/Dyspnea Stated complaint: SOB Time Seen by Provider: 04/05/24 10:23 Source: patient History of Present Illness HPI narrative: Patient is a 79-year-old male who presents for evaluation of dyspnea on exertion. He is a little unclear about how long this is going on, told the nurse a week but he tells me that it might be longer. He feels okay at rest, b ut he says with walking he starts to feel quite winded. He does have a history of COPD for which he is on a couple of inhalers. He is wondering if those need to be adjusted. He denies fever, cough, denies any chest pain or pressure, leg swelling or pain. He denies a history of heart failure, does have a history of coronary artery disease as well as atrial fibrillation for which he is anticoagu lated on Eliquis. He is on Lasix as well. He says that his doctor retired, so he does not have a specific doctor at this time. He used to smoke, quit 5 years ago. Related Data Home Medications ?Medication ?Instructions ?Recorded ?Confirmed apixaban 5 mg tablet (Eliquis) 5 mg PO BID 10/29/23 02/09/24 albuterol sulfate 90 mcg/actuation 2 puff inhalation Q4H PRN 10/31/23 02/09/24 aerosol inhaler cholecalciferol (vitamin D3) 125 125 mcg PO QDAY 10/31/23 02/09/24 mcg (5,000 unit) capsule fluocinonide 0.05 % topical cream 1 applic topical BID-QID PRN 10/31/23 02/09/24 fluticasone propionate 50 1 spray intranasal BID 10/31/23 02/09/24 mcg/actuation nasal spray,suspension furosemide 20 mg tablet 20 mg PO .ud 10/31/23 02/09/24 metoprolol succinate 100 mg 100 mg PO BID 10/31/23 02/09/24 tablet,extended release 24 hr nifedipine 60 mg tablet,extended 60 mg PO QDAY 10/31/23 02/09/24 release potassium chloride 10 mEq 10 meq PO .ud 10/31/23 02/09/24 capsule,extended release rosuvastatin 20 mg tablet 20 mg PO QDAY 10/31/23 02/09/24 Previous Rx's ?Medication ?Instructions ?Recorded triamcinolone acetonide 0.5 % 1 applic topical TID #30 grams 10/29/23 topical cream phenazopyridine 100 mg tablet 100 mg PO TID PRN pain 6 doses #6 02/09/24 tabs Allergies Allergy/AdvReac Type Severity Reaction Status Date / Time No Known Drug Allergies Allergy Verified 04/05/24 10:29 Review of Systems Status of ROS: Reports: 10 or more systems reviewed and unremarkable except as noted in History and below PFSH [facility] Social History Smoking Status: Never smoker How often do you have a drink containing alcohol: 2-3 times a week AUDIT-C Alcohol total score: 3 Non-prescribed substance use: denies use Exam Narrative: Exam Narrative: Vital signs reviewed In general, alert, nontoxic Head: Normocephalic, atraumatic. Eyes: Sclera clear. Pupils equal and reactive. ENT: Mucous membranes moist. Neck: Supple without adenopathy. Heart: Regular rate and rhythm without murmur. Lungs: Clear. No increased work of breathing, crackles or wheezes. Abdomen: Soft, nontender to palpation. Extremities: Well perfused, pulses intact. No significant edema. Neurologic: Alert, conversant. Speech fluent, face symmetric. Moves all extremities equally. Skin: Warm, dry well perfused. Affect: Normal. Const: Vital Signs, click to edit/add: Vital Signs - 24 hr 04/05/24 10:24 04/05/24 10:39 04/05/24 12:29 Temperature 98.2 F 97.8 F Pulse Rate [Right Pulse Oximeter] 99 98 Respiratory Rate 18 20 Blood Pressure [Le ft Upper Arm] 125/96 H 125/82 Pulse Oximetry 90 91 88 Oxygen Delivery Me thod Room Air Room Air Oxygen Flow Rate 04/05/24 13:00 Temperature Pulse Rate [Right Pulse Oximeter] Respiratory Rate Blood Pressure [Le ft Upper Arm] Pulse Oximetry 87 L Oxygen Delivery Me thod Nasal Cannula Oxygen Flow Rate 4 Course Course ED Course: Patient presents with dyspnea on exertion for an un known amount of time in the setting of a history of COPD, and coronary artery disease, without known history of congestive heart failure by his report. He is anticoagulated, PE felt to be less likely but will check a D-dimer. Other considerations would be atypical angina,pneumonia, COPD exacerbation, pulmonary edema, pleural effusion, anemia, among others. Labs are notable for normal white blood cell count of 8.3, hemoglobin is 11.5 we do not have a previous. I do not think this is low enough for him to be significantly symptomatic but should be followed with primary care. His gas shows normal pH of 7.37, pCO2 is normal at 41. His metabolic panel is notable only for a sodium of 132, otherwise normal. COVID is negative. Point of care troponin was 0.01. An EKG done here shows atrial fibrillation, ventricular rate of 89. He has a left bundle branch block, previous EKG not available. At this time, there is no evidence of an acute coronary syndrome based on symptomatology. EKG is hard to interpret due to the left bundle branch block, which I cannot confirm is old. However, symptoms have been ongoing and sound fairly stable, and troponin is negative. I am going to try giving him a DuoNeb to see if he feels that improves anything, on exam, I do not hear significant bronchospasm. If he feels duo nebs improve him, then we could try using those at home. Chest x-ray read by Radiology as showing likely pulmonary edema verses pneumonia. Clinically, he does not have any symptoms suggestive of an i nfectious process, and his white blood cell count is normal, his BNP is elevated at 47 40. COVID is negative. Overall, I think his presentation is more consistent with congestive heart failure. He is markedly hypoxic with ambulation, sats are and the range of 81-83%. He has been sitting more at 88% on room air so I am putting him on some oxygen, I have given him 40 mg of Lasix and I have recommended hospitalization for diuresis. He does not believe he has ever had an echo although he is not sure. Vital Signs Vital signs: Initial Vital Signs Temperature 98.2 F 04/05/24 10:24 Temperature Source Temporal Artery Scan 04/05/24 10:24 Pulse Rate 99 04/05/24 10:24 Respiratory Rate 18 04/05/24 10:24 Blood Pressure 125/96 H 04/05/24 10:24 Blood Pressure Mean 105 04/05/24 10:24 Blood Pressure Position Sitting 04/05/24 10:24 Pulse Oximetry 90 12/30/24 10:24 Oxygen Delivery Method Room Air 04/05/24 10:24 Vital Signs Temperature 98.2 F 04/05/24 10:24 Pulse Rate 99 04/05/24 10:24 Respiratory Rate 18 04/05/24 10:24 Blood Pressure 125/96 H 04/05/24 10:24 Pulse Oximetry 90 04/05/24 10:24 Oxygen Delivery Method Room Air 04/05/24 10:24 Temperature 97.8 F 04/05/24 12:29 Pulse Rate 98 04/05/24 12:29 Respiratory Rate 20 04/05/24 12:29 Blood Pressure 125/82 04/05/24 12:29 Pulse Oximetry 87 L 04/05/24 13:00 Oxygen Delivery Method Nasal Cannula 04/05/24 13:00 Oxygen Flow Rate 4 04/05/24 13:00 Medications Administered Medications: Discontinued Medications Generic Name Dose Route Start Last Admin Trade Name Freq PRN Reason Stop Dose Admin Albuterol/Ipratropium 1 neb 04/05/24 11:57 04/05/24 12:01 Iprat-Albut 0.5-2.5 Mg/3 Ml Neb IH 04/05/24 11:58 1 neb ONCE ONE Administration Furosemide 40 mg 04/05/24 12:53 04/05/24 13:15 Furosemide 10 Mg/Ml Inj IVP 04/05/24 12:54 40 mg ONCE ONE Administration Medical Decision Making Lab Data Labs: Lab Results 04/05/24 04/05/24 04/05/24 Range/Units 10:40 10:41 11:08 WBC 8.33 (4.50-11.00) K/uL RBC 3.63 L (4.30-5.90) m/uL Hgb 11.5 L (13.5-17.5) gm/dL Hct 35.3 L (37.0-53.0) % MCV 97 (80-100) fL MCH 32 (26-34) pg MCHC 33 (32-36) gm/dL RDW Coeff of Ashley 15.2 (11.5-15.5) % Plt Count 174 (140-440) K/uL Neut % (Auto) 84.0 H (42.0-72.0) % Lymph % (Auto) 7.4 L (20-44) % [place] % (Auto) 6.0 (0.0-11.0) % Eos % (Auto) 1.4 (0.0-7.0) % Baso % (Auto) 0.2 (0.0-3.0) % Neut # (Auto) 7.00 (1.7-7.0) K/uL Lymph # (Auto) 0.60 L (0.90-2.90) K/uL Juncos # (Auto) 0.50 (0.00-0.90) K/UL Eos # (Auto) 0.12 (0.00-0.50) K/uL Baso # (Auto) 0.02 (0.00-0.30) K/uL Abs Immat Gran (auto) 0.08 (0.00-0.30) K/uL Imm/Tot Granulo (auto) 1.0 % D-Dimer Quant (PE/DVT) 0.41 (0.00-0.50) ug/ml VBG pH 7.367 (7.32-7.43) VBG pCO2 41 (40-50) mmHG VBG pO2 35.3 (25-47) mmHG VBG HCO3 24 (21-28) mmol/L Sodium 132 L (135-149) mmol/L Potassium 4.2 (3.6-5.1) mmol/L Chloride 101 (96-114) mmol/L Carbon Dioxide 21 (20-32) mmol/L Anion Gap 10 (7-15) mEq/L BUN 19 (7-30) mg/dL Creatinine 0.9 (0.5-1.5) mg/dL Estimated Creat Clear 71.59 Estimated GFR 87 ml/min Glucose 204 H (60-115) mg/dL Calcium 8.4 (8.4-10.6) mg/dL Total Bilirubin 1.5 (0.1-1.5) mg/dL Direct Bilirubin 0.4 (0.0-0.5) mg/dL AST 22 (12-35) U/L ALT 24 (4-50) U/L Alkaline Phosphatase 54 (40-150) U/L C-Reactive Protein 3.8 H (0.5-1.0) mg/dL NT-Pro-B Natriuret Pep 4740 pg/mL Total Protein 6.4 (6.0-8.3) g/dL Albumin 3.8 (3.3-5.0) g/dL SARS-CoV-2 (PCR) Negative SARS-CoV-2 (Negative) POC Troponin I 0.01 (0.01-0.04) ng/ml Imaging Data Chest x-ray: Attestation: I have reviewed the pertinent imaging results. Radiologist's impression: Patient: Bola Zurita MR#: [id number] : 1945 Acct:[id number] Loc: ED Service Date: 04/05/[address]: Ordering Physician: Dolores Kessler M.D. Date of Service: 04/05/24 Procedure(s): XR chest 2V Accession Number(s): [id number] cc: Dolores Kessler M.D.; Generic,Amb Provider~ For Patients: As a result of the Cures Act, medical imaging exams and procedure reports are released immediately into your electronic medical record. You may view this report before your referring provider. If you have questions, please contact your health care provider. INDICATION: Shortness of breath TECHNIQUE: Chest 2 views. COMPARISON: None FINDINGS: Cardiovascular and mediastinum: Heart size and vasculature are normal in caliber and appearance. Mediastinum is within normal limits. Lungs and pleural spaces: The lungs are hyperinflated. Prominent bronchovascular markings. Ill-defined opacification right perihilar region. Subtle opacifications right base and possibly left. Linear changes at both lung bases. Blunting of the costophrenic angles with thickening of the fissure suggesting small pleural effusions versus scarring. Bones and soft tissues: No significant findings. IMPRESSION: COPD with prominent bronchovascular markings. Superimposed right parahilar and bibasilar opacifications greater on the right consistent with pneumonia and/or CHF. Blunting both costophrenic angles may be due to hyperinflation, scarring or small pleural effusions. Dictated by Rahul Brown MD @ 04/05/2024 11:22:23 AM Discharge Plan Discharge Clinical Impression: Congestive heart failure Patient Disposition: Admitted As Observation Condition: Stable
[2024-04-05 11:55] LABS: NT Pro B Type NatriureticPept* 4740 pg/mL
[2024-04-05] MEDS: IPRAT-ALBUT 0.5-2.5 MG/3 ML NEB 1 NEB IH (12:01)
[2024-04-05] MEDS: FUROSEMIDE 10 MG/ML inj 40 MG IVP ×2 (13:15→18:48)
--- NOTE | 2024-04-05 17:31 | P.IMHP_ITS ---
Hospitalist- H&P: HPI History of Present Illness Date Seen: 04/05/24 Chief complaint: SOB Narrative: ADMISSION HISTORY AND PHYSICAL - HOSPITALIST Chief Complaint: Dyspnea on exertion HPI: 79-year-old Cristino presents to the emergency room with worsening dyspnea on exertion. He reports over the last 2 weeks each day has gotten worse. He has been unable to rest at night given his shortness of breath. He is describing 2- 3 pillow orthopnea. Mild PND. He also states that his left leg has been swelling more than usual. He has had a revascularization of that left leg given extensive P AD. He states it always swells more than the right. This initial swelling started about a month ago. He started back on Lasix taking 20 mg 3 times a day. He states it does not really seem to have done anything. His leg is still swelling and then his breathing progressively worsened in the last 2 weeks. No specific cough or fever or chills reported. No sputum changes. No sinus congestion or headaches. No chest heaviness or pressure. ER COURSE: Chest x-ray, diuretics, nebulizer. He needed oxygen by nasal cannula up to 4 L to keep his sats greater than 88 90%. Hospital medicine team was asked to evaluate for admission. CODE STATUS: FULL CODE EMERGENCY CONTACT PLAN: Ruthie Ferreira Rel To Pat Daughter Cell I've updated the PFSH, medications and allergies in the Expanse tabs. INVESTIGATIONS: LABS/MICRO/ECG/IMAGING Afebrile. Blood pressure stable 110/81. 117/97. Pulse rate 106-81. Respiratory rate 20 to 22. Pulse ox is 87-90 on 3-4 L of nasal cannula oxygen. Weight is 89.2 kilos. CBC reflects a normal white blood cell count. A mild anemia at 11.5, normal platelet count. D-dimer is normal. Blood gas is normal, no pCO2 elevation. Sodium is 132 but corrects to 134 given his mild hyperglycemia LFTs are normal CRP 3.8 BNP 4740 with no based Procalcitonin undetected Urine is normal. Negative Legionella and strep pneumo Negative respiratory swab CXR IMPRESSION: COPD with prominent bronchovascular markings. Superimposed right parahilar and bibasilar opacifications greater on the right consistent with pneumonia and/or CHF. Blunting both costophrenic angles may be due to hyperinflation, scarring or small pleural effusions. echo 03/26 Indication for study: Stroke Cardiac Rhythm: Regular.Study quality: ? Final Impressions: 1. Moderately enlarged left atrium. 2. Normal LV size, moderately increased wall thickness, normal global systolic function with an estimated EF of 55 - 60%. 3. Right ventricular cavity size is mildly enlarged, global systolic RV function is normal. 4. The aortic valve is sclerotic, no stenosis and no regurgitation. 5. The mitral valve is sclerotic, trace mitral regurgitation. 6. No pericardial effusion. ? Comparison Compared to prior exam images of 02/03/20, there has been no significant change. Apr 2022 Mr. Zurita is a 77-year-old gentleman who states that he was diagnosed with chronic atrial fibrillation back in 1999 and was started on Coumadin anticoagulation therapy. He was admitted to [facility] March 19 to March 21, 2020 with difficulty reading, word finding difficulties. ?He presented late and thrombolytic therapy was not administered. ?An MRI demonstrated an acute infarct in the left inferior MCA territory, and the presumed to be cardioembolic. ?His INR was subtherapeutic. ?He was reluctant to transition from warfarin to apixaban but eventually did. The MRI noted a possible small subarachnoid hemorrhage in the left lateral occipital sulcus. ?Neurosurgery and neurology did not recommend a change in therapy. February 01 through February 16 he was admitted for critical limb ischemia and underwent left common femoral to peroneal artery bypass. ?His hospital course was complicated by atrial fibrillation with rapid ventricular response. ?Metoprolol and digoxin were added to his medical regimen. On January 27, 2020 he underwent stent placement to his mid LAD and mid LCx vessels. He was then admitted to [facility] 03/13/20 to 03/16/20 with a purulent wound and underwent left medial calf wound debridement with wound vac placement on 03/14/[address] Espinosa. He underwent an echo on March 20, 2020 with normal LV function and no significant valve disease. He finally quit smoking! Vascular Surgery Clinic Note: 01/29/2023 ? ID: Pt is a 78 y/o male with history of the following vascular operations: ? 1) left common femoral artery to peroneal bypass with spliced GSV 02/02/2020 2) left lower extremity wound debridement with VAC placement 03/14/2020 3) left lower extremity angiogram with angioplasty of the femoral peroneal bypass 07/18/20 5) angioplasty of the peroneal artery 08/01/2020 6) angioplasty of the bypass graft 01/02/2021 REVIEW OF SYSTEMS: 12-point ROS completed with patient and negative unless otherwise stated in HPI or below. PHYSICAL EXAM: CONSTITUTIONAL: Conversive, good historian. A/O. Knows setting and context. GENERAL: Well-developed and at ideal body weight, in no significant distress. VITAL SIGNS: see record. HEENT: Sclerae are anicteric. No petechiae. CARDIAC: rhythm is irregular -tachy. There is no S3 or rub. No harsh murmurs. Extremities show 1+ edema with symmetrical weak pulses. PULM: good air entry with no wheeze. bibasilar crackles NEURO: Speech is fluent. A brief neurologic exam is negative. SKIN: No rashes, petechiae, concerning changes PSYCHIATRIC: Euthymic. ADMIT TO MEDSURG: FLOOR CARE DVT: home eliquis GI: PO intake Time spent: Today I spent 75 minutes seeing the patient, discussing the patient with ER staff, reviewing Expanse and EPIC notes/diagnostics, discussing the care plan with our care time that includes social work, PT/OT, pharmacy, RT, correction and documenting my impressions and plan in the medical record. MEDICAL NECESSITY FOR HOSPITALIZATION Anticipated midnights in the hospital: 2 Admitting diagnosis: Acute diastolic heart failure, 1st lifetime presentation Risk of morbidity and mortality: high Acuity is characterized as high and reflected in: Advanced age, lives alone, poor insight into the relationship between pulmonary edema, daily weights and overall understanding of diuretic therapy, IV diuretics for pulmonary congestion, severe PVD, CAD, COPD, hypoxic respiratory failure in need of continuous oxygen supplementation. This patient will require hospital services as outlined in the assessment and plan in order to stabilize and be safely discharged to a lower level of care. Because of the risk and acuity as described above, this patient cannot be managed at a lower level of care. LENGTH OF STAY: 2 IP ? Anticipated LOS>2 midnights due to acuity of clinical presentation requiring inpatient level of care [facility] Medical History (Updated 04/05/24 @ 21:37 by Caroline Ling MD) COPD (chronic obstructive pulmonary disease) ?J44.9 - Chronic obstructive pulmonary disease, unspecified (ICD-10) CAD (coronary artery disease) ?I25.10 - Atherosclerotic heart disease of [place] coronary artery without angina pectoris (ICD-10) Peripheral arterial disease ?I73.9 - Peripheral vascular disease, unspecified (ICD-10) BPH (benign prostatic hyperplasia) ?N40.0 - Benign prostatic hyperplasia without lower urinary tract symptoms (ICD-10) Hyperlipidemia ?E78.5 - Hyperlipidemia, unspecified (ICD-10) Former cigarette smoker ?Z87.891 - Personal history of nicotine dependence (ICD-10) Chronic wound of extremity Critical limb ischemia with history of revascularization of same extremity ?I70.229 - Atherosclerosis of [place] arteries of extremities with rest pain, unspecified extremity (ICD-10) ?Z98.890 - Other specified postprocedural states (ICD-10) Hx of ischemic left MCA stroke ?Z86.73 - Personal history of transient ischemic attack (TIA), and cerebral infarction without residual deficits (ICD-10) Chronic anticoagulation ?Z79.01 - senior care (current) use of anticoagulants (ICD-10) Chronic atrial fibrillation ?I48.20 - Chronic atrial fibrillation, unspecified (ICD-10) Surgical History (Updated 04/05/24 @ 18:45 by Caroline Ling MD) Hx of coronary angioplasty ?Z98.61 - Coronary angioplasty status (ICD-10) Status post stereotactic brain biopsy ?Z98.890 - Other specified postprocedural states (ICD-10) Peripheral vascular angioplasty status with implants and grafts ?Z95.820 - Peripheral vascular angioplasty status with implants and grafts (ICD-10) S/P femoral-popliteal bypass surgery ?Z95.828 - Presence of other vascular implants and grafts (ICD-10) Social History What is your current living situation?: I presently have a place to live Problems where you live: no known problems Problems where you live details: n/a In the past 12 months, utilities in danger of being shut off: no In past 12 months, lack of transportation kept you from medical appts, meetings, work, or getting things needed for daily living: no In the past 12 mos, have been you worried that your food would run out before you had money to buy more?: never true In the past 12 mos, the food you bought just didn't last and you didn't have money to buy more?: never true Highest level of school completed/degree received: Master's degree Smoking Status: Former smoker Do you use any of these nicotine containing products: None Second hand tobacco smoke exposure: No How often do you have a drink containing alcohol: 4 or more times a week Alcohol type: beer How many standard drinks containing alcohol do you have on a typical day: 3 or 4 How often do you have six or more drinks on one occasion: Less than monthly AUDIT-C Alcohol total score: 6 Non-prescribed substance use: denies use Caffeine: Yes (2 cup of coffee a.m.) How often does anyone, including family, friends and others, physically hurt you : never How often does anyone, including family, friends and others, insult or talk down to you: never How often does anyone, including family, friends and others, threaten you with harm: never How often does anyone, including family, friends and others, scream or curse at you: never service: Yes Meds Home Medications and Allergies Home Medications ?Medication ?Instructions ?Recorded ?Confirmed ?Type apixaban 5 mg tablet (Eliquis) 5 mg PO BID 10/29/23 04/05/24 History albuterol sulfate 90 mcg/actuation 2 puff inhalation QID PRN 10/31/23 04/05/24 History aerosol inhaler furosemide 20 mg tablet 20 mg PO MOWEFR@08 10/31/23 04/05/24 History rosuvastatin 20 mg tablet 20 mg PO QPM 10/31/23 04/05/24 History fluticasone 250 mcg-salmeterol 50 1 inh inhalation BID 04/05/24 04/05/24 History mcg/dose blistr powdr for inhalation metoprolol tartrate 100 mg tablet 100 mg PO BID 04/05/24 04/05/24 History nifedipine 90 mg tablet,extended 90 mg PO DAILY 04/05/24 04/05/24 History release 24 hr tamsulosin 0.4 mg capsule 0.4 mg PO HS 04/05/24 04/05/24 History Allergies Allergy/AdvReac Type Severity Reaction Status Date / Time No Known Drug Allergies Allergy Verified 04/05/24 10:29 Exam Const: Vital Signs, click to edit/add: Vital Signs - 24 hr 04/05/24 10:24 04/05/24 10:39 04/05/24 12:29 Temperature 98.2 F 97.8 F Pulse Rate [Pulse Oximeter] Pulse Rate [Right Pulse Oximeter] 99 98 Respiratory Rate 18 20 Blood Pressure [Le ft Arm] Blood Pressure [Le ft Upper Arm] 125/96 H 125/82 Pulse Oximetry 90 91 88 Oxygen Delivery Me thod Room Air Room Air Oxygen Flow Rate 04/05/24 13:00 04/05/24 15:11 04/05/24 15:45 Temperature 98.6 F 97.9 F Pulse Rate [Pulse Oximeter] 94 Pulse Rate [Right Pulse Oximeter] 106 H Respiratory Rate 18 22 Blood Pressure [Le ft Arm] 117/97 H Blood Pressure [Le ft Upper Arm] 110/78 Pulse Oximetry 87 L 92 92 Oxygen Delivery Me thod Nasal Cannula Room Air Nasal Cannula Oxygen Flow Rate 4 2.5 04/05/24 17:05 Temperature Pulse Rate [Pulse Oximeter] Pulse Rate [Right Pulse Oximeter] Respiratory Rate 22 Blood Pressure [Le ft Arm] Blood Pressure [Le ft Upper Arm] Pulse Oximetry 921 H Oxygen Delivery Me thod Nasal Cannula Oxygen Flow Rate 2.5 Hospitalist - H&P: Result Labs Labs: Short CBC 04/05/24 Range/Units 11:08 WBC 8.33 (4.50-11.00) K/uL Hgb 11.5 L (13.5-17.5) gm/dL Hct 35.3 L (37.0-53.0) % Plt Count 174 (140-440) K/uL BMP 04/05/24 11:08 Sodium 132 L Potassium 4.2 Chloride 101 Carbon Dioxide 21 BUN 19 Creatinine 0.9 Glucose 204 H Calcium 8.4 Liver Function 04/05/24 Range/Units 11:08 Total Bilirubin 1.5 (0.1-1.5) mg/dL Direct Bilirubin 0.4 (0.0-0.5) mg/dL AST 22 (12-35) U/L ALT 24 (4-50) U/L Alkaline Phosphatase 54 (40-150) U/L Albumin 3.8 (3.3-5.0) g/dL Assessment and Plan Assessment and plan (1) Acute diastolic congestive heart failure, NYHA class 4: Problem comment: -first lifetime presentation; has had diuretics in the past but never acute CHF -last echo was 03/26 - EF 55-60% with enlarged LV; echo ordered for 04/06 -iv lasix for diuresis. previously non compliant with oral lasix at home; dislikes the polyuria. he restarted the 3x a week in early mar 2024 without much effect; will start 40mg PO daily 04/06 -needs education on approach to dry weight and measuring oxygen saturation and dyspnea on exertion for daily lasix dosing - that buy in will increase compliance -recommend prescription compression stockings; L>>>R for peripheral edema due to bypass grafting -monitor potassium; starting replacement Status: Acute (2) Hypoxic respiratory failure: Problem comment: -oxygen by ID titrated to keep sats 88-92% - acutely hypoxic b/c of acute CHF but with hx of COPD. today's gas does not reflect CO2 retention Status: Acute (3) Atrial fibrillation with RVR: Problem comment: -on admission day - late with meds; on metoprolol 100 BID; giving this upon arrival to the floor with prn doses until pulse is [id number]. -on telemetry and oxygen Status: Acute (4) Peripheral arterial disease: Problem comment: hx of left femoral-PT bypass in 2019 chronic swelling in the left leg/ankle has had issues with chronic wounds in bilateral extremities Status: Acute (5) Chronic anticoagulation: Problem comment: Apixaban 5 mg q.12 Status: Acute (6) COPD (chronic obstructive pulmonary disease): Problem comment: -former smoker -on advair and albuterol -DuoNebs ordered prn Status: Acute (7) Hyperglycemia: Problem comment: -no history of diabetes. Admission blood sugar 204. Will check A1c and some bedside monitoring. Status: Acute (8) CAD (coronary artery disease): Problem comment: -01/2020 drug eluting stent placement to his mid LAD and mid LCx Status: Acute (9) Hyperlipidemia: Status: Acute (10) Former cigarette smoker: Status: Acute
[2024-04-05] MEDS: APIXABAN 5 MG TABLET PO (18:15)
[2024-04-05] MEDS: METOPROLOL TARTRATE 100 MG TABLET PO (18:15)
[2024-04-05] MEDS: TAMSULOSIN HCL 0.4 MG CAPSULE PO (18:15)
[2024-04-05] MEDS: ROSUVASTATIN CALCIUM 10 MG TABLET 20 MG PO (18:15)
[2024-04-05 18:46] LABS: Appearance Urine Clear (Clear); Bilirubin Urine Negative (Negative); Blood Urine Trace-intact (Negative); Color Urine Yellow (Yellow); Glucose Urine Negative (Negative); Ketones Urine Negative (Negative); Leukocyte Esterase Urine Negative (Negative); Nitrite Urine Negative (Negative); Protein Urine Negative (Negative)
[2024-04-05] MEDS: POTASSIUM BICARB 25 MEQ EFFERVESCENT TAB PO ×2 (18:48→20:11)
[2024-04-05 18:59] LABS: RBC Urine 0-2 (0-2); WBC Urine 0-2 (0-5)
[2024-04-05 19:01] LABS: PCR FLU A Negative PCR FLU A (Negative); PCR FLU B Negative PCR FLU B (Negative); PCR RSV Negative PCR RSV (Negative)
[2024-04-05 19:59] LABS: Procalcitonin* 0.06 ng/mL (<0.50)
[2024-04-05 20:05] LABS: Legionella pneumo Ag Urine L. pneumo Negative (Negative); S pneumo Ag Urine S. pneumo Negative (Negative)
[2024-04-05] MEDS: NIFEdipine 30 MG TAB.ER.24 90 MG PO (20:10)
[2024-04-05] MEDS: SODIUM CHLORIDE 0.9 % (FLUSH) 10 ML SYRINGE 5 ML IVF (20:11)
[2024-04-05 22:07] LABS: Hemoglobin A1C* 5.9 % (0-5.6)
[2024-04-06] VITALS (12 sets, daily range): BP systolic 85–111; BP diastolic 59–87; PULSE 84–133; RESP 16–20; TEMP 36.4–37.6; O2SAT 90–93
[2024-04-06] MEDS: METOPROLOL TARTRATE 100 MG TABLET PO (05:57)
[2024-04-06] MEDS: APIXABAN 5 MG TABLET PO ×2 (05:58→18:25)
--- NOTE | 2024-04-06 06:12 | PC.NURSE ---
End of shift report [id number]: Pleasant and cooperative with cares. Denies any pain this shift. Lung sounds clear to auscultation, denies any shortness of breath at rest or with exertion. Patient able to wean from 4L O2 down to 1.5L and tolerating well, maintaining O2 sats >91%. Trace pitting edema to BLE. Ambulates independently throughout room. IV metoprolol not given throughout this shift due to pulse less than 100 throughout the night, patients HR 84-93 throughout the night.
[2024-04-06 06:31] LABS: Hematocrit 35.3 % (37.0-53.0); Hemoglobin* 11.5 gm/dL (13.5-17.5); Mean Corpuscular HGB Conc 33 gm/dL (32-36); Mean Corpuscular Hemoglobin 31 pg (26-34); Mean Corpuscular Volume 95 fL (80-100); Platelet Count* 187 K/uL (140-440); Red Blood Count 3.73 m/uL (4.30-5.90)
[2024-04-06 06:43] LABS: Slide Review Reflex No
[2024-04-06 06:52] LABS: Chloride* 99 mmol/L (96-114); Potassium* 3.7 mmol/L (3.6-5.1); Sodium* 133 mmol/L (135-149)
[2024-04-06 06:55] LABS: Creatinine* 0.8 mg/dL (0.5-1.5); Est. Creatinine Clearance* 70.94; Estimated Glomerular Filt Rate 90 ml/min
[2024-04-06 06:56] LABS: Anion Gap 7 mEq/L (7-15); Blood Urea Nitrogen* 22 mg/dL (7-30); Calcium* 8.5 mg/dL (8.4-10.6); Carbon Dioxide* 27 mmol/L (20-32); Glucose* 121 mg/dL (60-115)
[2024-04-06 06:59] LABS: C Reactive Protein* 4.4 mg/dL (0.5-1.0)
[2024-04-06 07:07] LABS: Troponin I* 0.02 ng/mL (0.01-0.04)
[2024-04-06] MEDS: POTASSIUM CHLORIDE 10 MEQ CAPSULE ER 20 MEQ PO ×2 (09:08→18:25)
[2024-04-06] MEDS: SODIUM CHLORIDE 0.9 % (FLUSH) 10 ML SYRINGE 5 ML IVF ×2 (09:09→20:53)
--- NOTE | 2024-04-06 11:42 | NUTR.NU ---
DENNISEN with diet education related to heart failure exacerbation. Patient admitted for worsening dyspnea on exertion, found to have congestive heart failure exacerbation. Current weight 184lb 9.6oz; height 6ft 3in; BMI 23.1 kg/m2. Weight has been increased recently due to fluid accumulation. Patient currently on diuretics. Current diet is Regular. Meal intakes since admit 75%+. RDN visited with patient whom reports not following a specific diet at home. He has not received diet education for heart failure. RDN offered Heart Healthy diet education, however patient declined at this time. He accepted educational materials and reported he will review them on his own time. RDN's contact information was provided and patient was encouraged to call with questions. RDN also offered to change patient's diet to Heart Healthy, however patient also declined this.
--- NOTE | 2024-04-06 12:56 | P.IMPN_ITS ---
Progress Note: A&P Assessment and plan (1) Acute diastolic congestive heart failure, NYHA class 4: Problem details: -first lifetime presentation; has had diuretics in the past but never acute CHF -last echo was 03/26 - EF 55-60% with enlarged LV -iv lasix for diuresis. previously non compliant with oral lasix at home; dislikes the polyuria. he restarted the 3x a week in early mar 2024 without much effect; will start 40mg PO daily 04/06 -needs education on approach to dry weight and measuring oxygen saturation and dyspnea on exertion for daily lasix dosing - that buy in will increase compliance -recommend prescription compression stockings; L>>>R for peripheral edema due to bypass grafting -monitor potassium; starting replacement - improved 3.7 -weight improved 89 -> 83kg Repeat echo 04/06 Final Impressions: 1. Normal LV size, normal wall thickness, mildly reduced global systolic f unction with an estimated EF of 40 - 45%. 2. Severely enlarged left atrium. 3. Right ventricular cavity size is normal, global systolic RV function is mildly reduced. 4. The aortic valve is calcified and trileaflet, no stenosis and no regurgitation. 5. The mitral valve is sclerotic, mild to moderate mitral regurgitation. 6. Moderate tricuspid regurgitation. 7. Elevated estimated pulmonary pressures by tricuspid regurgitation velocity and right atrial pressure (30 mmHg plus RAP). Status: Acute (2) Hypoxic respiratory failure: Problem details: -oxygen by NC titrated to keep sats 88-92% - acutely hypoxic b/c of acute CHF but with hx of COPD. today's gas does not reflect CO2 retention -has been weaned to room air Status: Acute (3) Atrial fibrillation with RVR: Problem details: -on admission day - late with meds; on metoprolol 100 BID; giving this upon arrival to the floor with prn doses until pulse is . -on telemetry and oxygen Status: Acute (4) Peripheral arterial disease: Problem details: hx of left femoral-PT bypass in 2019 chronic swelling in the left leg/ankle has had issues with chronic wounds in bilateral extremities Status: Acute (5) Chronic anticoagulation: Problem details: Apixaban 5 mg q.12 Status: Acute (6) COPD (chronic obstructive pulmonary disease): Problem details: -former smoker -on advair and albuterol -DuoNebs ordered prn Status: Acute (7) Hyperglycemia: Problem details: -no history of diabetes. Admission blood sugar 204. A1c 5.9 Status: Acute (8) CAD (coronary artery disease): Problem details: -01/2020 drug eluting stent placement to his mid LAD and mid LCx Status: Acute (9) Hyperlipidemia: Problem details: Continue statin Status: Acute (10) Former cigarette smoker: Problem details: Reading noted Status: Acute (11) Hypertension: Problem details: -systolic pressures less than 100 consistently this morning. In reviewing EMR, systolic typically 110 or so -will reduce nifedipine to 60 mg nightly. Continue metoprolol at 100 mg b.i.d. given AFib and need for rate control Status: Acute Plan Improved diuresis however hypotensive. Will continue hospitalization overnight, monitoring, adjusting antihypertensives. Possible discharge 04/07/2024. Likely able to return to home setting, working with therapies to assess. Time Spent With Patient Total time spent: Total time spent caring for the patient today was 55 minutes. This includes time spent for the visit reviewing the chart, time spent during the visit, time spent after the visit and documentation and planning in coordination of care. Subjective Date Seen: 04/06/24 Interval history: Patient is seen sitting up in a chair with daughter and grandson at bedside. Reports feeling well. But really had no complaints other than weakness previously as well. Pressures have been soft this morning, SBP <100. Heart rate appropriate. Denies headache or dizziness. Able to ambulate without increased symptoms. Tolerating orals without nausea vomiting. Afebrile. Exam Narrative: Exam Narrative: PHYSICAL EXAM General: Pleasant, conversant, NAD HEENT: Normocephalic, atraumatic, sclera white, EOMI, oral mucosa moist Cardiovascular: RRR, S1S2. +1 pitting edema Pulmonary: CTA bilaterally without rhonchi, rales, expiratory wheezes. No dyspn ea on room air Neurological: Alert, answering questions appropriately, cranial nerves intact, no focal findings Extremities: No gross joint deformity or swelling. AROMI. Neurovascularly intact Skin: Warm, dry. Const: Vital Signs, click to edit/add: Vital Signs - 24 hr 04/05/24 13:00 04/05/24 15:11 04/05/24 15:45 Temperature 98.6 F 97.9 F Pulse Rate Pulse Rate [Pulse Oximeter] 94 Pulse Rate [Right Pulse Oximeter] 106 H Respiratory Rate 18 22 Blood Pressure [Le ft Arm] 117/97 H Blood Pressure [Le ft Upper Arm] 110/78 Pulse Oximetry 87 L 92 92 Oxygen Delivery Me thod Nasal Cannula Room Air Nasal Cannula Oxygen Flow Rate 4 2.5 04/05/24 17:05 04/05/24 17:30 04/05/24 17:30 Temperature Pulse Rate Pulse Rate [Pulse Oximeter] Pulse Rate [Right Pulse Oximeter] Respiratory Rate 22 20 Blood Pressure [Le ft Arm] Blood Pressure [Le ft Upper Arm] Pulse Oximetry 921 H 91 91 Oxygen Delivery Me thod Nasal Cannula Nasal Cannula Oxygen Flow Rate 2.5 2.5 04/05/24 17:53 04/05/24 19:00 04/05/24 19:07 Temperature 98.2 F Pulse Rate 111 H Pulse Rate [Pulse Oximeter] 81 Pulse Rate [Right Pulse Oximeter] Respiratory Rate 20 22 Blood Pressure [Le ft Arm] 110/81 Blood Pressure [Le ft Upper Arm] Pulse Oximetry 95 90 Oxygen Delivery Me thod Nasal Cannula Nasal Cannula Oxygen Flow Rate 3 4 04/05/24 23:00 04/05/24 23:00 04/05/24 23:00 Temperature Pulse Rate 95 Pulse Rate [Pulse Oximeter] 87 Pulse Rate [Right Pulse Oximeter] Respiratory Rate 20 Blood Pressure [Le ft Arm] Blood Pressure [Le ft Upper Arm] Pulse Oximetry 96 Oxygen Delivery Me thod Oxygen Flow Rate 04/05/24 23:00 04/05/24 23:00 04/06/24 03:00 Temperature 98.6 F 99.7 F H Pulse Rate Pulse Rate [Pulse Oximeter] 87 86 Pulse Rate [Right Pulse Oximeter] Respiratory Rate 20 20 18 Blood Pressure [Le ft Arm] 131/71 111/73 Blood Pressure [Le ft Upper Arm] Pulse Oximetry 95 95 93 Oxygen Delivery Me thod Nasal Cannula Nasal Cannula Nasal Cannula Oxygen Flow Rate 3 3 2 04/06/24 07:02 04/06/24 07:30 04/06/24 07:30 Temperature Pulse Rate 85 Pulse Rate [Pulse Oximeter] Pulse Rate [Right Pulse Oximeter] Respiratory Rate 18 Blood Pressure [Le ft Arm] Blood Pressure [Le ft Upper Arm] Pulse Oximetry 91 91 Oxygen Delivery Me thod Nasal Cannula Oxygen Flow Rate 04/06/24 07:30 04/06/24 08:00 04/06/24 09:20 Temperature 97.5 F L 97.5 F L Pulse Rate Pulse Rate [Pulse Oximeter] 86 86 133 H Pulse Rate [Right Pulse Oximeter] Respiratory Rate 18 18 18 Blood Pressure [Le ft Arm] 92/59 L 107/87 Blood Pressure [Le ft Upper Arm] Pulse Oximetry 91 91 Oxygen Delivery Me thod Room Air Room Air Oxygen Flow Rate 04/06/24 10:44 04/06/24 10:48 Temperature 97.5 F L 98.3 F Pulse Rate Pulse Rate [Pulse Oximeter] 86 86 Pulse Rate [Right Pulse Oximeter] Respiratory Rate 18 18 Blood Pressure [Le ft Arm] 92/59 L 85/60 L Blood Pressure [Le ft Upper Arm] Pulse Oximetry 91 90 Oxygen Delivery Me thod Room Air Room Air Oxygen Flow Rate 2 Labs Labs: Laboratory Results - last 24 hr 04/05/24 04/05/24 04/05/24 10:41 11:08 16:54 WBC RBC Hgb Hct MCV MCH MCHC Plt Count Sodium Potassium Chloride Carbon Dioxide Anion Gap BUN Creatinine Estimated Creat Clear Estimated GFR Glucose Hemoglobin A1c 5.9 H Calcium Troponin I C-Reactive Protein Procalcitonin 0.06 TSH Urine Color Urine Appearance Urine pH Ur Specific [place] Urine Protein Urine Glucose (UA) Urine Ketones Urine Blood Urine Nitrite Urine Bilirubin Urine Urobilinogen Ur Leukocyte Esterase Urine RBC Urine WBC Ur Squamous Epith Cells Urine Bacteria Urine L. pneumophilia Ag Urine Strep pneumoniae Ag SARS-CoV-2 (PCR) Negative SARS-CoV-2 Influenza Type A (PCR) Negative PCR FLU A Influenza Type B (PCR) Negative PCR FLU B RSV (PCR) Negative PCR RSV Lab Acknowledgement Test Added 04/05/24 04/05/24 04/05/24 18:38 18:41 21:35 WBC RBC Hgb Hct MCV MCH MCHC Plt Count Sodium Potassium Chloride Carbon Dioxide Anion Gap BUN Creatinine Estimated Creat Clear Estimated GFR Glucose Hemoglobin A1c Calcium Troponin I C-Reactive Protein Procalcitonin TSH Urine Color Yellow Urine Appearance Clear Urine pH 5.0 Ur Specific [place] 1.020 Urine Protein Negative Urine Glucose (UA) Negative Urine Ketones Negative Urine Blood Trace-intact A Urine Nitrite Negative Urine Bilirubin Negative Urine Urobilinogen 1.0 Ur Leukocyte Esterase Negative Urine RBC 0-2 Urine WBC 0-2 Ur Squamous Epith Cells None Urine Bacteria None Urine L. pneumophilia Ag L. pneumo Negative Urine Strep pneumoniae Ag S. pneumo Negative SARS-CoV-2 (PCR) Influenza Type A (PCR) Influenza Type B (PCR) RSV (PCR) Lab Acknowledgement Test Added 04/06/24 05:55 WBC 7.70 RBC 3.73 L Hgb 11.5 L Hct 35.3 L MCV 95 MCH 31 MCHC 33 Plt Count 187 Sodium 133 L Potassium 3.7 Chloride 99 Carbon Dioxide 27 Anion Gap 7 BUN 22 Creatinine 0.8 Estimated Creat Clear 70.94 Estimated GFR 90 Glucose 121 H Hemoglobin A1c Calcium 8.5 Troponin I 0.02 C-Reactive Protein 4.4 H Procalcitonin TSH 1.850 Urine Color Urine Appearance Urine pH Ur Specific [place] Urine Protein Urine Glucose (UA) Urine Ketones Urine Blood Urine Nitrite Urine Bilirubin Urine Urobilinogen Ur Leukocyte Esterase Urine RBC Urine WBC Ur Squamous Epith Cells Urine Bacteria Urine L. pneumophilia Ag Urine Strep pneumoniae Ag SARS-CoV-2 (PCR) Influenza Type A (PCR) Influenza Type B (PCR) RSV (PCR) Lab Acknowledgement
--- NOTE | 2024-04-06 17:51 | PC.NURSE ---
End of shift. pt has been very pleasant. he is cooperative with cares. no pain. . bp was low this am. md was updated. PT and OT worked with him. pt o2 was @ 1.5L this am. took o2 off. sao2 on ra 90-94%. Trace pitting edema to BLE. he is up ab ramiro. no lasix this am due to low BP. md is aware. tele shows Afib. he does repeat some statement.
[2024-04-06] MEDS: ROSUVASTATIN CALCIUM 10 MG TABLET 20 MG PO (18:25)
[2024-04-06] MEDS: TAMSULOSIN HCL 0.4 MG CAPSULE PO (18:25)
[2024-04-06] MEDS: METOPROLOL TARTRATE 50 MG TABLET PO (18:41)
[2024-04-06] MEDS: NIFEdipine 30 MG TAB.ER.24 60 MG PO (20:53)
[2024-04-07] VITALS (9 sets, daily range): BP systolic 96–119; BP diastolic 62–82; PULSE 77–116; RESP 18–20; TEMP 36.6–37.4; O2SAT 90–96
--- NOTE | 2024-04-07 05:53 | PC.NURSE ---
End of shift report [id number]: Alert and oriented with intermittent forgetfulness. Denies any pain, shortness of breath or chest pain. Lung sounds clear to auscultation, intermittent dry cough. Tolerated room air throughout the night, patient able to maintain O2 sats >90% while in bed. Blood pressures remained 97-102 systolic, denies any dizziness when going from laying to standing or sitting to stand. BLE edema 2+ pitting. Transfers and ambulates independently in room.
[2024-04-07] MEDS: APIXABAN 5 MG TABLET PO ×2 (06:40→18:36)
[2024-04-07 07:07] LABS: Hemoglobin* 11.8 gm/dL (13.5-17.5); Mean Corpuscular HGB Conc 33 gm/dL (32-36); Mean Corpuscular Hemoglobin 31 pg (26-34); Mean Corpuscular Volume 96 fL (80-100); Platelet Count* 191 K/uL (140-440); Red Blood Count 3.77 m/uL (4.30-5.90); White Blood Count* 7.06 K/uL (4.50-11.00)
[2024-04-07 07:13] LABS: Slide Review Reflex No
[2024-04-07 07:30] LABS: Chloride* 103 mmol/L (96-114); Potassium* 4.4 mmol/L (3.6-5.1); Sodium* 133 mmol/L (135-149)
[2024-04-07 07:32] LABS: Creatinine* 0.8 mg/dL (0.5-1.5); Est. Creatinine Clearance* 71.59; Estimated Glomerular Filt Rate 90 ml/min
[2024-04-07 07:33] LABS: Anion Gap 5 mEq/L (7-15); Blood Urea Nitrogen* 23 mg/dL (7-30); Carbon Dioxide* 25 mmol/L (20-32); Glucose* 128 mg/dL (60-115)
[2024-04-07 07:34] LABS: Calcium* 8.8 mg/dL (8.4-10.6)
[2024-04-07 07:36] LABS: C Reactive Protein* 4.9 mg/dL (0.5-1.0)
[2024-04-07] MEDS: FUROSEMIDE 20 MG TABLET 40 MG PO (08:06)
[2024-04-07] MEDS: POTASSIUM CHLORIDE 10 MEQ CAPSULE ER 20 MEQ PO ×2 (08:07→18:35)
[2024-04-07] MEDS: SODIUM CHLORIDE 0.9 % (FLUSH) 10 ML SYRINGE 5 ML IVF ×2 (08:07→20:35)
--- NOTE | 2024-04-07 12:44 | P.DS_ITS ---
DS: Providers Provider Date Seen: 04/07/24 Date of admission: 04/05/24 16:54 Primary care physician: Rossy Provider AAAGeneric Admitting Clinician: Richelle Ryan PA-C Consults: 04/05/24 16:54 Consult to Occupational Therapy [CONS] Routine Comment: Reason(s) for OT Consult:: Evaluate and Treat Any Restrictions?:: No Restrictions Consult to Physical Therapy [CONS] Routine Comment: Reason(s) for PT Consult:: Evaluate and Treat Any Restrictions?:: No Restrictions Consult to Respiratory Therapy [CONS] Routine Comment: Reason(s) for RT Consult:: Consult Consult to Veterinary Surgery Technologist [CONS] Routine Comment: Reason for Consult:: Social Service Consult Attending Physician on discharge: MARY Reynaga PA-C [facility] Date of Discharge: 04/07/24 DS: Diagnosis Discharge Diagnosis (1) Acute diastolic congestive heart failure, NYHA class 4: Status: Acute Problem details: -first lifetime presentation; has had diuretics in the past but never acute CHF -CXR c/w CHF findings -last echo was 03/26 - EF 55-60% with enlarged LV -iv lasix for diuresis. previously non compliant with oral lasix at home; dislikes the polyuria. he restarted the 3x a week in early mar 2024 without much effect; will start 40mg PO daily 04/06 -needs education on approach to dry weight and measuring oxygen saturation and dyspnea on exertion for daily lasix dosing - that buy in will increase compliance -recommend prescription compression stockings; L>>>R for peripheral edema due to bypass grafting -monitor potassium; starting replacement - improved 3.7 -weight improved 89 -> 83kg Repeat echo 04/06 Final Impressions: 1. Normal LV size, normal wall thickness, mildly reduced global systolic function with an estimated EF of 40 - 45%. 2. Severely enlarged left atrium. 3. Right ventricular cavity size is normal, global systolic RV function is mildly reduced. 4. The aortic valve is calcified and trileaflet, no stenosis and no regurgitation. 5. The mitral valve is sclerotic, mild to moderate mitral regurgitation. 6. Moderate tricuspid regurgitation. 7. Elevated estimated pulmonary pressures by tricuspid regurgitation velocity and right atrial pressure (30 mmHg plus RAP). Patient is discharged on usual home dose of Lasix. Discussed with patient and his daughter weighing himself daily and recording this. Should make plan with PCP for additional dosing based on increasing weight. Close follow-up with PCP 3-5 days. (2) Hypoxic respiratory failure: Status: Resolved Problem details: -oxygen by NC titrated to keep sats 88-92% - acutely hypoxic b/c of acute CHF but with hx of COPD. today's gas does not reflect CO2 retention -has been weaned to room air (3) Atrial fibrillation with RVR: Status: Acute Problem details: -on admission day - late with meds; on metoprolol 100 BID; giving this upon arrival to the floor with prn doses until pulse is [id number]. -on telemetry and oxygen Stable, discharged on home medications. (4) Peripheral arterial disease: Status: Acute Problem details: hx of left femoral-PT bypass in 2019 chronic swelling in the left leg/ankle has had issues with chronic wounds in bilateral extremities Consider compression stockings (5) Chronic anticoagulation: Status: Acute Problem details: Apixaban 5 mg q.12 (6) COPD (chronic obstructive pulmonary disease): Status: Acute Problem details: -former smoker -CXR showing COPD with prominent bronchovascular markings. -on advair and albuterol -DuoNebs ordered prn Continue home medications on discharge (7) Hyperglycemia: Status: Acute Problem details: -no history of diabetes. Admission blood sugar 204. A1c 5.9. Further outpatient follow-up with PCP (8) CAD (coronary artery disease): Status: Acute Problem details: -01/2020 drug eluting stent placement to his mid LAD and mid LCx (9) Hyperlipidemia: Status: Acute Problem details: Continue statin (10) Former cigarette smoker: Status: Acute Problem details: Noted (11) Hypertension: Status: Acute Problem details: -systolic pressures less than 100 consistently this morning. In reviewing EMR, systolic typically 110 or so -will reduce nifedipine to 60 mg nightly. Continue metoprolol at 100 mg b.i.d. given AFib and need for rate control Systolic pressures improved to normal prior to discharge, 110-119. Remained asymptomatic with soft pressures during course of hospital stay. Discharged with decreased dose nifedipine, 60 mg. Continue normal dosing metoprolol given AFib. Encouraged continuing usual daily check in with family until follow-up with PCP. DS: Summary Hospital Course Hospital Course: Course of care and details as noted above. Patient anxious to discharge home. Systolic pressures have improved. Hypoxia has resolved. Patient has 2 daughters with whom he will check in daily is as usual for him. Close outpatient follow-up with PCP. Remainder of chronic medical comorbidities were monitored and managed with home medications. Status at Discharge Functional status at discharge: independent ambulation Overall status at discharge: patient is back to baseline Time Spent with Patient Time attestation: Total time spent providing and/or coordinating discharge services: Time spent: Greater than 30 minutes Exam Narrative: Exam Narrative: PHYSICAL EXAM General: Pleasant, conversant, NAD Cardiovascular: RRR Pulmonary: No dyspnea Neurological: Alert, answering questions appropriately Skin: Warm, dry. Const: Vital Signs, click to edit/add: Vital Signs - 24 hr 04/06/24 15:00 04/06/24 15:00 04/06/24 16:00 Temperature Pulse Rate 84 Pulse Rate [Pulse Oximeter] 88 Respiratory Rate 18 Blood Pressure [Le ft Arm] Pulse Oximetry 92 Oxygen Delivery Me thod Oxygen Flow Rate 04/06/24 16:00 04/06/24 16:00 04/06/24 17:45 Temperature 98.3 F Pulse Rate Pulse Rate [Pulse Oximeter] 88 Respiratory Rate 18 18 18 Blood Pressure [Le ft Arm] 93/73 108/70 Pulse Oximetry 92 92 92 Oxygen Delivery Me thod Room Air Room Air Room Air Oxygen Flow Rate 2 2 04/06/24 19:00 04/06/24 23:00 04/06/24 23:00 Temperature 98.5 F Pulse Rate 100 Pulse Rate [Pulse Oximeter] 93 Respiratory Rate 20 Blood Pressure [Le ft Arm] 102/63 Pulse Oximetry 90 91 Oxygen Delivery Me thod Room Air Oxygen Flow Rate 04/06/24 23:00 04/06/24 23:00 04/06/24 23:00 Temperature 98.8 F Pulse Rate Pulse Rate [Pulse Oximeter] 87 87 Respiratory Rate 16 16 16 Blood Pressure [Le ft Arm] 98/63 Pulse Oximetry 91 91 Oxygen Delivery Me thod Room Air Room Air Oxygen Flow Rate 0 04/07/24 03:00 04/07/24 07:20 04/07/24 08:00 Temperature 99.4 F Pulse Rate 113 H Pulse Rate [Pulse Oximeter] 92 Respiratory Rate 18 Blood Pressure [Le ft Arm] 97/62 Pulse Oximetry 90 93 Oxygen Delivery Me thod Room Air Oxygen Flow Rate 04/07/24 08:00 04/07/24 08:00 04/07/24 08:00 Temperature 98.6 F Pulse Rate Pulse Rate [Pulse Oximeter] 93 99 Respiratory Rate 18 18 Blood Pressure [Le ft Arm] 107/63 Pulse Oximetry 93 93 Oxygen Delivery Me thod Room Air Room Air Oxygen Flow Rate 04/07/24 11:40 Temperature 98.3 F Pulse Rate Pulse Rate [Pulse Oximeter] 91 Respiratory Rate 18 Blood Pressure [Le ft Arm] 119/74 Pulse Oximetry 93 Oxygen Delivery Me thod Room Air Oxygen Flow Rate DS: Data Data Completed and Pending Labs on day of discharge: Labs from last 24 hours 04/07/24 06:46 WBC 7.06 RBC 3.77 L Hgb 11.8 L Hct 36.0 L MCV 96 MCH 31 MCHC 33 Plt Count 191 Sodium 133 L Potassium 4.4 Chloride 103 Carbon Dioxide 25 Anion Gap 5 L BUN 23 Creatinine 0.8 Estimated Creat Clear 71.59 Estimated GFR 90 Glucose 128 H Calcium 8.8 C-Reactive Protein 4.9 H Imaging Chest x-ray: Attestation: I have reviewed the pertinent imaging results. Radiologist's impression: Cardiovascular and mediastinum: Heart size and vasculature are normal in caliber and appearance. Mediastinum is within normal limits. Lungs and pleural spaces: The lungs are hyperinflated. Prominent bronchovascular markings. Ill-defined opacification right perihilar region. Subtle opacifications right base and possibly left. Linear changes at both lung bases. Blunting of the costophrenic angles with thickening of the fissure suggesting small pleural effusions versus scarring. Bones and soft tissues: No significant findings. IMPRESSION: COPD with prominent bronchovascular markings. Superimposed right parahilar and bibasilar opacifications greater on the right consistent with pneumonia and/or CHF. Blunting both costophrenic angles may be due to hyperinflation, scarring or small pleural effusions. Discharge Plan Discharge Disposition: Home, Self-Care Date of Admission: 04/05/24 16:54 Attending Provider on Discharge: Richelle Ryan Primary Care Provider: Rossy Gore Provider Condition: Stable Anticipated Discharge Date/Time: 04/07/24 12:33 Discharge Medications: New nifedipine 30 mg Tablet Extended Release 24hr 60 mg PO HS Qty: 60 0RF Continued Eliquis 5 mg tablet 5 mg PO BID fluticasone propion-salmeterol 250-50 mcg/dose blister with device 1 inh inhalation BID tamsulosin 0.4 mg capsule 0.4 mg PO HS metoprolol tartrate 100 mg tablet 100 mg PO BID furosemide 20 mg tablet 20 mg PO [id number]@08 Rx Instructions: take -- rosuvastatin 20 mg tablet 20 mg PO QPM albuterol sulfate 90 mcg/actuation HFA aerosol inhaler 2 puff inhalation QID PRN Discontinued nifedipine 90 mg tablet extended release 24hr 90 mg PO DAILY Discharge Orders: Discharge Order (Routine); Ordered 04/07/24 Ordered By: Richelle Ryan Patient Education: Heart Failure (GEN) Additional Instructions: MEDICATION CHANGES: TAKE 60MG NIFEDIPINE AT NIGHT (DECREASED FROM 90MG) CONTINUE TO TAKE YOUR LASIX PRESCRIBED. WEIGH YOURSELF DAILY. IF YOUR WEIGHT GOES UP 5 POUNDS, CONTACT YOUR PCP. Activity Level: Activity as Tolerated Discharge Diet: Regular Follow Up Appointments: Klever Monte MD [Staff Physician] - (Post hospital follow up 3-5 days) Forms: [employer] Info Instructions
[2024-04-07] MEDS: METOPROLOL TARTRATE 100 MG TABLET PO ×2 (13:34→18:35)
--- NOTE | 2024-04-07 13:46 | RESP.RT ---
Pt seen per consult. Hypoxia has resolved. Continue with frequent IS, cough and deep breathing.
[2024-04-07] MEDS: ROSUVASTATIN CALCIUM 10 MG TABLET 20 MG PO (18:35)
[2024-04-07] MEDS: TAMSULOSIN HCL 0.4 MG CAPSULE PO (18:36)
[2024-04-07] MEDS: NIFEdipine 30 MG TAB.ER.24 60 MG PO (20:34)
[2024-04-08 05:00] VITALS: BP 112/79; PULSE 114; RESP 20; TEMP 37.1; O2SAT 93
[2024-04-08] MEDS: METOPROLOL TARTRATE 100 MG TABLET PO (05:58)
[2024-04-08] MEDS: APIXABAN 5 MG TABLET PO (05:59)
--- NOTE | 2024-04-08 06:09 | PC.NURSE ---
End of shift summary: Pt has been A&O, afebrile and VSS all night. He is up independently in his room with a steady gait. TELE read A. Fib NVR w/ LBBB. Pt has no c/o pain, nausea or dizziness. PIV in right FA SL and C/D/I. Pt slept well in between cares. No BM overnight. Continent of urine. AM metoprolol given morning of 04/08/24 for BP 112/79 MAP 87. ?
[2024-04-08 07:00] VITALS: PULSE 84
[2024-04-08 07:00] LABS: Hematocrit 34.6 % (37.0-53.0); Hemoglobin* 11.3 gm/dL (13.5-17.5); Mean Corpuscular HGB Conc 33 gm/dL (32-36); Mean Corpuscular Hemoglobin 31 pg (26-34); Mean Corpuscular Volume 95 fL (80-100); Platelet Count* 191 K/uL (140-440); Red Blood Count 3.65 m/uL (4.30-5.90); White Blood Count* 7.28 K/uL (4.50-11.00)
[2024-04-08 07:02] LABS: Slide Review Reflex No
[2024-04-08 07:23] LABS: Chloride* 104 mmol/L (96-114); Potassium* 4.1 mmol/L (3.6-5.1); Sodium* 134 mmol/L (135-149)
[2024-04-08 07:26] LABS: Anion Gap 8 mEq/L (7-15); Blood Urea Nitrogen* 26 mg/dL (7-30); Carbon Dioxide* 22 mmol/L (20-32); Creatinine* 0.9 mg/dL (0.5-1.5); Est. Creatinine Clearance* 71.56; Estimated Glomerular Filt Rate 87 ml/min
[2024-04-08 07:27] LABS: Calcium* 8.6 mg/dL (8.4-10.6); Glucose* 122 mg/dL (60-115)
[2024-04-08 07:47] VITALS: BP 112/73; PULSE 84; RESP 20; TEMP 36.6; O2SAT 93
[2024-04-08] MEDS: POTASSIUM CHLORIDE 10 MEQ CAPSULE ER 20 MEQ PO (08:58)
[2024-04-08] MEDS: FUROSEMIDE 20 MG TABLET 40 MG PO (08:59)
[2024-04-08] MEDS: SODIUM CHLORIDE 0.9 % (FLUSH) 10 ML SYRINGE 5 ML IVF (08:59)
--- NOTE | 2024-04-08 10:22 | PM.DS1 ---
DS: Providers Provider Date Seen: 04/08/24 Date of admission: 04/05/24 16:54 Primary care physician: Rossy Provider AAAGeneric Admitting Clinician: Richelle Ryan PA-C Consults: 04/05/24 16:54 Consult to Occupational Therapy [CONS] Routine Comment: Reason(s) for OT Consult:: Evaluate and Treat Any Restrictions?:: No Restrictions Consult to Physical Therapy [CONS] Routine Comment: Reason(s) for PT Consult:: Evaluate and Treat Any Restrictions?:: No Restrictions Consult to Respiratory Therapy [CONS] Routine Comment: Reason(s) for RT Consult:: Consult Consult to Foreign Student Adviser Teacher [CONS] Routine Comment: Reason for Consult:: Social Service Consult Attending Physician on discharge: Heather Patton MD Date of Discharge: 04/08/24 DS: Diagnosis Discharge Diagnosis (1) Acute diastolic congestive heart failure, NYHA class 4: Status: Acute Problem details: - first lifetime presentation; has had diuretics in the past but never acute CHF - CXR c/w CHF findings - last TTE 03/26 - EF 55-60% with enlarged LV - IV lasix initiated upon admission, previously noncompliant with this 2/2 polyuria. Has taken MWF, continuing this dosing but will need escalation of diuretics in the outpatient setting - needs education on approach to dry weight and measuring oxygen saturation and dyspnea on exertion for daily lasix dosing - recommend prescription compression stockings; L>>>R for peripheral edema due to bypass grafting - monitor potassium; starting replacement - improved 3.7 - weight improved 89 -> 83kg - given TTE results below, d/c'd Nifedipine, initiated low dose Lisinopril Repeat echo 04/06 Final Impressions: 1. Normal LV size, normal wall thickness, mildly reduced global systolic function with an estimated EF of 40 - 45%. 2. Severely enlarged left atrium. 3. Right ventricular cavity size is normal, global systolic RV function is mildly reduced. 4. The aortic valve is calcified and trileaflet, no stenosis and no regurgitation. 5. The mitral valve is sclerotic, mild to moderate mitral regurgitation. 6. Moderate tricuspid regurgitation. 7. Elevated estimated pulmonary pressures by tricuspid regurgitation velocity and right atrial pressure (30 mmHg plus RAP). Patient is discharged on usual home dose of Lasix. Discussed with patient and his daughter weighing himself daily and recording this. Should make plan with PCP for additional dosing based on increasing weight. Close follow-up with PCP 3-5 days. (2) HFrEF (heart failure with reduced ejection fraction): Status: Acute Problem details: - see above - given decreased EF, stopped Nifedipine, initiated low dose Lisinopril at HS - will need close PCP f/u to titrate up GDMT Repeat echo 04/06 Final Impressions: 1. Normal LV size, normal wall thickness, mildly reduced global systolic function with an estimated EF of 40 - 45%. 2. Severely enlarged left atrium. 3. Right ventricular cavity size is normal, global systolic RV function is mildly reduced. 4. The aortic valve is calcified and trileaflet, no stenosis and no regurgitation. 5. The mitral valve is sclerotic, mild to moderate mitral regurgitation. 6. Moderate tricuspid regurgitation. 7. Elevated estimated pulmonary pressures by tricuspid regurgitation velocity and right atrial pressure (30 mmHg plus RAP). (3) Hypoxic respiratory failure: Status: Resolved Problem details: - oxygen by NC titrated to keep sats 88-92% - acutely hypoxic b/c of acute CHF but with hx of COPD. today's gas does not reflect CO2 retention - has been weaned to room air (4) Atrial fibrillation with RVR: Status: Acute Problem details: - long history of this, had two episodes of a fib/RVR during stay, both related to late dosing of Metoprolol, understands importance of compliance - anticoagulated on Eliquis (5) Peripheral arterial disease: Status: Acute Problem details: - hx of left femoral-PT bypass in 2019 - chronic swelling in the left leg/ankle - has had issues with chronic wounds in bilateral extremities - Consider compression stockings (6) Chronic anticoagulation: Status: Acute Problem details: - Apixaban 5 mg BID for a fib (7) COPD (chronic obstructive pulmonary disease): Status: Acute Problem details: -former smoker -CXR showing COPD with prominent bronchovascular markings. -on advair and albuterol -DuoNebs ordered prn Continue home medications on discharge (8) Hyperglycemia: Status: Acute Problem details: -no history of diabetes. Admission blood sugar 204. A1c 5.9. Further outpatient follow-up with PCP (9) CAD (coronary artery disease): Status: Acute Problem details: -01/2020 drug eluting stent placement to his mid LAD and mid LCx (10) Hyperlipidemia: Status: Acute Problem details: - Continue statin (11) Hypertension: Status: Acute Problem details: - systolic pressures less than 100 consistently this morning. In reviewing EMR, systolic typically 110 or so - improved during stay, asymptomatic. D/c BP of 114/68 DS: Summary Hospital Course Hospital Course: Bola was admitted to the hospital on 04/05 for acute exacerbation of systolic heart failure. Previously diagnosed with HFpEF, current TTE reveals HFrEF. Continue home dose of metoprolol, discontinued nifedipine given decreased EF and initiated low-dose lisinopril at at bedtime. Patient's blood pressure was limiting in initiating further GDMT. He was initially given IV Lasix, transitioned to oral Lasix with good results. He has previously been noncompliant with diuretics secondary to polyuria. He is willing to go back on thrice weekly diuretic use with close PCP follow-up to discuss symptoms and weight management, as well as further medication changes. Noted to have AFib with RVR twice during stay, both times associated with a late administration of metoprolol. RVR resolved with metoprolol. Understands the importance of taking this medication regularly. Seen by therapies during stay, no acute needs identified. Recommend home OT evaluation in the outpatient setting. Patient is medically appropriate for discharge home with daughter on 04/08/2024. He will see Dr. Moore for primary care Status at Discharge Functional status at discharge: independent ambulation Time Spent with Patient Time attestation: Total time spent providing and/or coordinating discharge services: Time spent: Greater than 30 minutes Exam Narrative: Exam Narrative: GEN: Alert and oriented, nontoxic. Sitting comfortably in bedside chair HEENT: EOMIs bilaterally, no scleral icterus CV: RRR, No concerning murmurs R: LCTA bilaterally without concerning wheezing Skin: No concerning skin lesions or rashes on exposed skin Neuro: Nonfocal Psych: Appropriate Const: Vital Signs, click to edit/add: Vital Signs - 24 hr 04/07/24 11:40 04/07/24 15:00 04/07/24 15:00 Temperature 98.3 F Pulse Rate 116 H Pulse Rate [Pulse Oximeter] 91 Pulse Rate [orthos tatic lying Pulse Oximeter] Pulse Rate [orthos tatic sitting Puls e Oximeter] Pulse Rate [orthos tatic standing Pul se Oximeter] Respiratory Rate 18 Blood Pressure [Le ft Arm] 119/74 Blood Pressure [or thostatic lying Le ft Arm] Blood Pressure [or thostatic sitting Left Arm] Blood Pressure [or thostatic standing Left Arm] Pulse Oximetry 93 96 Oxygen Delivery Me thod Room Air Oxygen Flow Rate 04/07/24 15:00 04/07/24 15:00 04/07/24 17:10 Temperature 97.8 F Pulse Rate Pulse Rate [Pulse Oximeter] 100 100 Pulse Rate [orthos tatic lying Pulse Oximeter] Pulse Rate [orthos tatic sitting Puls e Oximeter] Pulse Rate [orthos tatic standing Pul se Oximeter] Respiratory Rate 20 20 Blood Pressure [Le ft Arm] 96/82 Blood Pressure [or thostatic lying Le ft Arm] Blood Pressure [or thostatic sitting Left Arm] Blood Pressure [or thostatic standing Left Arm] Pulse Oximetry 96 96 Oxygen Delivery Me thod Room Air Room Air Oxygen Flow Rate 04/07/24 18:33 04/07/24 20:30 04/07/24 20:30 Temperature 98.6 F Pulse Rate Pulse Rate [Pulse Oximeter] 95 90 Pulse Rate [orthos tatic lying Pulse Oximeter] 85 Pulse Rate [orthos tatic sitting Puls e Oximeter] 77 Pulse Rate [orthos tatic standing Pul se Oximeter] 87 Respiratory Rate 20 Blood Pressure [Le ft Arm] 107/77 Blood Pressure [or thostatic lying Le ft Arm] 114/76 Blood Pressure [or thostatic sitting Left Arm] 108/80 Blood Pressure [or thostatic standing Left Arm] 112/69 Pulse Oximetry 96 93 Oxygen Delivery Me thod Room Air Room Air Oxygen Flow Rate 0 04/07/24 23:00 04/07/24 23:00 04/07/24 23:00 Temperature Pulse Rate 80 Pulse Rate [Pulse Oximeter] 90 Pulse Rate [orthos tatic lying Pulse Oximeter] Pulse Rate [orthos tatic sitting Puls e Oximeter] Pulse Rate [orthos tatic standing Pul se Oximeter] Respiratory Rate 20 20 Blood Pressure [Le ft Arm] Blood Pressure [or thostatic lying Le ft Arm] Blood Pressure [or thostatic sitting Left Arm] Blood Pressure [or thostatic standing Left Arm] Pulse Oximetry 93 Oxygen Delivery Me thod Room Air Oxygen Flow Rate 0 04/08/24 05:00 04/08/24 07:47 04/08/24 07:47 Temperature 98.7 F 97.8 F Pulse Rate Pulse Rate [Pulse Oximeter] 114 H 84 Pulse Rate [orthos tatic lying Pulse Oximeter] Pulse Rate [orthos tatic sitting Puls e Oximeter] Pulse Rate [orthos tatic standing Pul se Oximeter] Respiratory Rate 20 20 Blood Pressure [Le ft Arm] 112/79 112/73 Blood Pressure [or thostatic lying Le ft Arm] Blood Pressure [or thostatic sitting Left Arm] Blood Pressure [or thostatic standing Left Arm] Pulse Oximetry 93 93 93 Oxygen Delivery Me thod Room Air Room Air Oxygen Flow Rate 0 04/08/24 07:47 Temperature Pulse Rate Pulse Rate [Pulse Oximeter] Pulse Rate [orthos tatic lying Pulse Oximeter] Pulse Rate [orthos tatic sitting Puls e Oximeter] Pulse Rate [orthos tatic standing Pul se Oximeter] Respiratory Rate 20 Blood Pressure [Le ft Arm] Blood Pressure [or thostatic lying Le ft Arm] Blood Pressure [or thostatic sitting Left Arm] Blood Pressure [or thostatic standing Left Arm] Pulse Oximetry 93 Oxygen Delivery Me thod Room Air Oxygen Flow Rate 0 DS: Data Data Completed and Pending Labs on day of discharge: Labs from last 24 hours 04/08/24 06:27 WBC 7.28 RBC 3.65 L Hgb 11.3 L Hct 34.6 L MCV 95 MCH 31 MCHC 33 Plt Count 191 Sodium 134 L Potassium 4.1 Chloride 104 Carbon Dioxide 22 Anion Gap 8 BUN 26 Creatinine 0.9 Estimated Creat Clear 71.56 Estimated GFR 87 Glucose 122 H Calcium 8.6 Discharge Plan Discharge Disposition: Home, Self-Care Date of Admission: 04/05/24 16:54 Attending Provider on Discharge: Richelle Ryan Primary Care Provider: Rossy Gore Provider Condition: Stable Anticipated Discharge Date/Time: 04/07/24 12:33 Discharge Medications: New lisinopril 2.5 mg tablet 2.5 mg PO HS Qty: 30 3RF Continued Eliquis 5 mg tablet 5 mg PO BID fluticasone propion-salmeterol 250-50 mcg/dose blister with device 1 inh inhalation BID tamsulosin 0.4 mg capsule 0.4 mg PO HS metoprolol tartrate 100 mg tablet 100 mg PO BID furosemide 20 mg tablet 20 mg PO MOWEFR@08 Rx Instructions: take rosuvastatin 20 mg tablet 20 mg PO QPM albuterol sulfate 90 mcg/actuation HFA aerosol inhaler 2 puff inhalation QID PRN Discontinued nifedipine 90 mg tablet extended release 24hr 90 mg PO DAILY Discharge Orders: Discharge Order (Routine); Ordered 04/08/24 Ordered By: Heather Pattno Patient Education: Lisinopril (By mouth), Heart Failure (GEN), A-fib (Atrial Fibrillation) (DC) Additional Instructions: Medication changes: 1. STOP Nifedipine 2. START Lisinopril 2.5mg at night Continue your other home medications as prescribed. See Dr. Moore as scheduled, good idea to see him monthly for management. WEIGH YOURSELF DAILY. IF YOUR WEIGHT GOES UP 5 POUNDS, CONTACT YOUR PCP. Activity Level: Activity as Tolerated Discharge Diet: Regular Follow Up Appointments: Greg Moore MD [Referring] - 04/12/24 2:15 pm ([facility] for follow- and to establish care. ) Forms: Money Mover Info Instructions
[2024-04-08 11:17] VITALS: BP 114/68; PULSE 80; RESP 18; O2SAT 93
--- NOTE | 2024-04-08 12:10 | PC.NURSE ---
Pt alert and oriented. Pt had no complaints of pain. Pt up independently in room. Pt's IV removed; catheter intact. Pt's VS WNL. Pt's daughter at bedside for discharge instructions. CHF tote given to Pt.
--- NOTE | 2024-04-08 16:23 | PC.NURSE ---
Pt called to clarify discharge medications aand follow up appointment.
== END 2024-04-08 11:50 | disposition home or self-care (01) | DRG 291 ==
LOC: ED 14:59 → MEDSURG 15:35
PROVIDERS: Admitting Provider Family Medicine; Emergency Provider Emergency Medicine; Visit Provider Physician Assistant
DX: I50.31 Acute diastolic (congestive) heart failure (principal); J96.01 Acute respiratory failure with hypoxia; I48.20 Chronic atrial fibrillation, unspecified; Z87.891 Personal history of nicotine dependence; Z79.01 Long term (current) use of anticoagulants; J44.9 Chronic obstructive pulmonary disease, unspecified; I25.10 Atherosclerotic heart disease of native coronary artery without angina pectoris; I73.9 Peripheral vascular disease, unspecified; N40.0 Benign prostatic hyperplasia without lower urinary tract symptoms; Z86.73 Personal history of transient ischemic attack (TIA), and cerebral infarction without residual deficits; R73.9 Hyperglycemia, unspecified; E78.5 Hyperlipidemia, unspecified; I11.0 Hypertensive heart disease with heart failure
CPT/HCPCS: 36415; 71046; 80048; 80076; 81001; 82803; 83036; 83880; 84145; 84443; 84484; 85025; 85027; 85379; 86140; 87449; 87631; 87635; 87899; 93005; 93306; 94761; 97161; 97165; 97535; 99284; 99285; A9270; J1940

== ENCOUNTER 2024-06-18 14:14 | Outpatient (CLI) | payer OTHER, SELFPAY | END 2024-06-18 14:15 | disposition home or self-care (01) | PROVIDERS: Visit Provider Nurse Practitioner | DX: R06.02 Shortness of breath (principal) | CPT/HCPCS: 83880 ==

== ENCOUNTER 2024-12-06 10:25 | Inpatient (IN) | payer MEDICARE, BC, OTHER, SELFPAY ==
--- OUTSIDE RECORDS SUMMARY | 2024-05-12 10:18 | XMS_ITS | Encounter Summary ---
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 [facility] [place] Address [address] [place] [address] Care Team Providers Care Orthodontic Band Maker Name Role Phone OZ HAWKINS Primary Care [...] Kevin's Name Patient's Relationship to Policy Kevin SHUN GARCIA [facility] MEDICARE ADVANTAGE [facility](W NR) Jan 05, 2010 [id number] [phone] ANUSHA DE PAZ PATIENT BC BS [facility] [id number] Jan 05, 2010 [id number] DEPEN[employer] ON GROUP ANUSHA DE PAZ PATIENT BCBS [facility] ([place]) MEDICARE ADVANTAGE [facility] (WNR) Apr 07, 2016 [id number] [phone] ANUSHA DE PAZ PATIENT BC[place] OF [place] MEDICARE SECONDARY (NO B EXC) PLATI NUM BLUE Apr 07, 2016 [id number] [phone] ANUSHA DE PAZ PATIENT MEDICARE (WNR) MEDICARE (M) PART A Jan 05, 2010 PART A [id number] [phone] ANUSHA DE PAZ PATIENT MEDICARE (WNR) MEDICARE (M) PART B Jan 05, 2010 PART B [id number] ANUSHA DE PAZ PATIENT MEDICARE (WNR) MEDICARE (M) PART A Jan 05, 2010 PART A [id number] [phone] ANUSHA DE PAZ PATIENT MEDICARE (WNR) MEDICARE (M) PART B Jan 05, 2010 PART B [id number] [phone] ANUSHA DE PAZ PATIENT MEDICARE (WNR) MEDICARE (M) PART A Jan 05, 2010 PART A [id number] ANUSHA DE PAZ PATIENT PRIME [id number]/[facility] S PRESCRIPT ION [place]BS [place] Feb 06, 2024 [facility] [id number] [phone] ANUSHA DE PAZ PATIENT Selected Encounter This section includes the information on record at [place] for the Encounter. Date/Time Encounter Type Encounter Description Reason Pro vider Source May 12, 2024 03:18 PM Outpatient Encounter COMMUNITY CARE CONSULT IHE Encounter Template Text not used by [place] Plan of Treatment: Future Appointments (+ 6 months) and Future Tests (+/- 45 days) The Plan of Treatment section includes future care activities for the patient from all [place] treatmentfacilities. This section includes future appointments and future orders which are active, pending or scheduled. Future Appointments This section includes appointments that were scheduled to occur 6 months from the date of the Encounter, up to a maximum of 20 appointments. The data comes from all [place] treatment facilities. Appointment Date/Time Appointment Type Appointme nt Facility Name Jul 14, 2024 10:45 AM AMBULATORY - NONE [facility] Jul 14, 2024 11:30 AM AMBULATORY - MEDICINE [facility] August 24, 2024 02:00 PM AMBULATORY - NONE [facility] August 24, 2024 03:00 PM AMBULATORY - SURGERY [facility] Social History: Smoking Status (Most current) and Tobacco Use (All prior to encounter date) This section includes the most current, and the historical, smoking and tobacco- related health factors from the [place] facility where the Encounter took place. Current Smoking Status This section includes the most current smoking, or tobacco-related health factor, from the [place] facility where the Encounter took place. Date/Time Current Smoking Status Comment Facil ity Jul 17, 2023 03:00 PM VA-TOBACCO FORMER USER [facility] Tobacco Use History This section includes a history of the smoking, or tobacco-related health factors, that were collected on or before the date of the Encounter. The data comes from the [place] facility where the Encounter took place. Date/Time Smoking Status/Tobacco Use Comment Rafa amy Jul 17, 2023 03:00 PM VA-TOBACCO QUIT 1 TO < 5 YRS [facility] August 07, 2022 01:30 PM VA-TOBACCO FORMER USER [facility] August 07, 2022 01:30 PM VA-TOBACCO QUIT 1 TO < 5 YRS [facility] Oct 16, 2020 02:45 PM VA-TOBACCO FORMER USER [facility] Oct 16, 2020 02:45 PM VA-TOBACCO QUIT 15 YRS OR MORE [facility] Mar 29, 2019 10:59 AM VA-TOBACCO USE > 1 5 LESS THAN 30 YEARS [facility] Mar 29, 2019 10:59 AM VA-TOBACCO USE ADVICE [facility] Mar 29, 2019 10:59 AM VA-TOBACCO USE WASTE DUSTER NO [facility] Mar 29, 2019 10:59 AM VA-TOBACCO USE MED NO [facility] Mar 29, 2019 10:59 AM VA-TOBACCO USE WI 30 MIN OF WAKE UP [facility] Mar 29, 2019 10:59 AM VA-TOBACCO USER EVERY DAY [facility] Feb 17, 2018 03:39 PM VA-TOBACCO USE 30 YEARS OR MORE [facility] Feb 17, 2018 03:39 PM VA-TOBACCO USE ADVICE [facility] Feb 17, 2018 03:39 PM VA-TOBACCO USE WASTE DUSTER NO [facility] Feb 17, 2018 03:39 PM VA-TOBACCO USE MED NO [facility] Feb 17, 2018 03:39 PM VA-TOBACCO USE WI 30 MIN OF WAKE UP [facility] Feb 17, 2018 03:39 PM VA-TOBACCO USER EVERY DAY [facility] Feb 12, 2017 12:38 PM CURRENT TOBACCO USER [facility] Apr 25, 2015 07:50 AM CURRENT TOBACCO USER [facility] Apr 21, 2014 08:25 AM CURRENT TOBACCO USER [facility] Apr 20, 2013 10:04 AM CURRENT TOBACCO USER [facility] Mar 20, 2012 09:53 AM CURRENT TOBACCO USER [facility] Feb 06, 2011 09:44 AM CURRENT TOBACCO USER [facility] Jan 02, 2010 09:22 AM CURRENT TOBACCO USER [facility] Encounter Notes: All associated encounter notes This section contains the clinical notes associated to the Encounter. Date/Time Encounter Note(s) Provider Source May 12, 2024 03:18 PM PHARMACY NOTE: LOCAL TITLE: PHARMACY NON [place] CARE MEDICATIONS STANDARD TITLE: PHARMACY NOTE DATE OF NOTE: MAY 12, 2024@15:18 ENTRY DATE: MAY 12, 2024@15:18:59 AUTHOR: ZULEYKA ESTRADA EXP COSIGNER: URGENCY: STATUS: COMPLETED [facility] RECEIVED electronic prescription(s) (eRX(s)) from NON-[place] Provider: SERA TATUM [facility] Date eRX received: May Outside (NON-[place]) provider not authorized to write for prescription(s) through [place] pharmacy. Prescription request REDIRECTED via FAX to [facility] for review: eRx Prescription Information: 1. [id number] furosemide 20 mg tablet eRx Qty: 90 eRx # of Refills: 1 eRx Days Supply: SIG: Take 1 Tablet (20 mg) by mouth once daily in the morning. Lasix to 20 mg daily 2. [id number] empagliflozin 10 mg tablet eRx Qty: 45 eRx # of Refills: 0 eRx Days Supply: SIG: Take 1 Tablet (10 mg) by mouth once daily. /naina/ ZULEYKA ESTRADA pharmacist Signed: 05/12/2024 15:20 ZULEYKA ESTRADA [facility]
--- OUTSIDE RECORDS SUMMARY | 2024-05-14 07:30 | XMS_ITS | Encounter Summary ---
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 Address [address] [place] [address] Care Team Providers Care Milieu Counselor Name Role Phone OZ HAWKINS Primary Care [...] Patient's Relationship to Policy Kevin SHUN GARCIA [facility] ([facility]) MEDICARE ADVANTAGE [facility](W NR) Jan 05, 2010 [id number] ANUSHA DE PAZ PATIENT BC BS [facility] ([facility]) [facility] ORGANIZ [id number] Jan 05, 2010 [id number] DEPENDS ON [employer] DE PAZANUSHA PATIENT BCBS [facility] (WNR) MEDICARE ADVANTAGE [facility] (WNR) Apr 07, 2016 [id number] [phone] ANUSHA DE PAZ PATIENT [place] MEDICARE SECONDARY (NO B EXC) PLATI NUM BLUE Apr 07, 2016 [id number] [phone] ANUSHA DE PAZ PATIENT MEDICARE (WNR) MEDICARE (M) PART B Jan 05, 2010 PART B [id number] ANUSHA DE PAZ PATIENT MEDICARE ([place]) MEDICARE (M) PART A Jan 05, 2010 PART A [id number] ANUSHA DE PAZ PATIENT MEDICARE ([place]) MEDICARE (M) PART A Jan 05, 2010 PART A [id number] ANUSHA DE PAZ PATIENT MEDICARE ([place]NR) MEDICARE (M) PART B Jan 05, 2010 PART B [id number] ANUSHA DE PAZ PATIENT MEDICARE ([place]NR) MEDICARE (M) PART A Jan 05, 2010 PART A [id number] ANUSHA DE PAZ PATIENT PRIME [id number]/[facility] S PRESCRIPT ION [place] Feb 06, 2024 [facility] [id number] [phone] ANUSHA DE PAZ PATIENT Selected Encounter This section includes the information on record at [place] for the Encounter. Date/Time Encounter Type Encounter Description Reason Pro vider Source May 14, 2024 12:30 PM Outpatient Encounter COMMUNITY CARE CONSULT IHE Encounter Template Text not used by [place] Plan of Treatment: Future Appointments (+ 6 months) and Future Tests (+/- 45 days) The Plan of Treatment section includes future care activities for the patient from all [place] treatmentfacilities. This section includes future appointments and future orders which are active, pending or scheduled. Future Appointments This section includes appointments that were scheduled to occur 6 months from the date of the Encounter, up to a maximum of 20 appointments. The data comes from all [place] treatment facilities. Appointment Date/Time Appointment Type Appointme nt Facility Name Jul 14, 2024 10:45 AM AMBULATORY - NONE [facility] Jul 14, 2024 11:30 AM AMBULATORY - MEDICINE [facility] August 24, 2024 02:00 PM AMBULATORY - NONE [facility] August 24, 2024 03:00 PM AMBULATORY - SURGERY [facility] Social History: Smoking Status (Most current) and [...] 17, 2023 03:00 PM VA-TOBACCO FORMER USER [facility] Tobacco Use History This section includes a history of the smoking, or tobacco-related health factors, that were collected on or before the date of the Encounter. The data comes from the [place] facility where the Encounter took place. Date/Time Smoking Status/Tobacco Use Comment Rafa amy Jul 17, 2023 03:00 PM VA-TOBACCO QUIT 1 TO < 5 YRS [facility] August 07, 2022 01:30 PM VA-TOBACCO FORMER USER [facility] August 07, 2022 01:30 PM VA-TOBACCO QUIT 1 TO < 5 YRS [facility] Oct 16, 2020 02:45 PM VA-TOBACCO FORMER USER [facility] Oct 16, 2020 02:45 PM VA-TOBACCO QUIT 15 YRS OR MORE [facility] Mar 29, 2019 10:59 AM VA-TOBACCO USE > 1 5 LESS THAN 30 YEARS [facility] Mar 29, 2019 10:59 AM VA-TOBACCO USE ADVICE [facility] Mar 29, 2019 10:59 AM VA-TOBACCO USE LEG ASSEMBLER NO [facility] Mar 29, 2019 10:59 AM VA-TOBACCO USE MED NO [facility] Mar 29, 2019 10:59 AM VA-TOBACCO USE WI 30 MIN OF WAKE UP [facility] Mar 29, 2019 10:59 AM VA-TOBACCO USER EVERY DAY [facility] Feb 17, 2018 03:39 PM VA-TOBACCO USE 30 YEARS OR MORE [facility] Feb 17, 2018 03:39 PM VA-TOBACCO USE ADVICE [facility] Feb 17, 2018 03:39 PM VA-TOBACCO USE LEG ASSEMBLER NO [facility] Feb 17, 2018 03:39 PM VA-TOBACCO USE MED NO [facility] Feb 17, 2018 03:39 PM VA-TOBACCO USE WI 30 MIN OF WAKE UP [facility] Feb 17, 2018 03:39 PM VA-TOBACCO USER EVERY DAY [facility] Feb 12, 2017 12:38 PM CURRENT TOBACCO USER [facility] Apr 25, 2015 07:50 AM CURRENT TOBACCO USER [facility] Apr 21, 2014 08:25 AM CURRENT TOBACCO USER [facility] Apr 20, 2013 10:04 AM CURRENT TOBACCO USER [facility] Mar 20, 2012 09:53 AM CURRENT TOBACCO USER [facility] Feb 06, 2011 09:44 AM CURRENT TOBACCO USER [facility] Jan 02, 2010 09:22 AM CURRENT TOBACCO USER [facility] Encounter Notes: All associated encounter notes This section contains the clinical notes associated to the Encounter. Date/Time Encounter Note(s) Provider Source May 14, 2024 12:30 PM PHARMACY NOTE: LOCAL TITLE: PHARMACY NON [place] CARE MEDICATIONS STANDARD TITLE: PHARMACY NOTE DATE OF NOTE: MAY 14, 2024@12:30 ENTRY DATE: MAY 14, 2024@12:30:28 AUTHOR: MELISSA ARMANDO COSIGNER: URGENCY: STATUS: COMPLETED PHARMACY NON [place] CARE MEDICATIONS Has ADDENDA [facility] RECEIVED electronic prescription(s) (eRX(s))from NON- VA Provider: VERONICA COTO Date eRX received: MAY 14, 2024 The outside (NON-VA) provider is not authorized to write for prescription(s) through [place] pharmacy at this time. Prescription request REDIRECTED via FAX to [facility] department eRx Prescription Information: 1. [id number] empagliflozin 10 mg ta eRx Qty: 90 eRx # of Refills: 3 eRx Days Supply: SIG: Take 1 Tablet (10 mg) by mouth once daily. 2. [id number] sacubitriL 24 mg-valsartan 26 mg tablet (ENTRESTO) eRx Qty: 180 eRx # of Refills: 3 eRx Days Supply: SIG: Take 1 Tablet by mouth two times daily. /sonu ARMANDO PharmD CLINICAL PHARMACIST Signed: 05/14/2024 12:31 05/14/2024 ADDENDUM STATUS: COMPLETED Additional med forwared [facility] care: 1. [id number] metoprolol succinate E VERONICA COTO 05/14/24 N A A eRx Qty: 90 eRx # of Refills: 3 eRx Days Supply: SIG: Take 1 Tablet (100 mg) by mouth once daily. /naina/ JENNIFER BOTOH PharmD, [facility] PHARMACIST Signed: 05/14/2024 20:08 MELISSA ARMANDO [facility]
--- OUTSIDE RECORDS SUMMARY | 2024-06-21 09:29 | XMS_ITS | Encounter Summary ---
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 [place] Address [address] [place] [address] Care Team Providers Care Hoe Worker Name Role Phone OZ HAWKINS Primary Care [...] Patient's Relationship to Policy Kevin SHUN GARCIA [facility] ([facility]) MEDICARE ADVANTAGE [facility](W NR) Jan 05, 2010 [id number] [phone] ANUSHA DE PAZ PATIENT BC BS [facility] ([facility]) [facility] ORGANIZ [id number] Jan 05, 2010 [id number] DEPENDS ON GROUP ANUSHA DE PAZ PATIENT BCBS [facility] ([place]) MEDICARE ADVANTAGE [facility] (WNR) Apr 07, 2016 [id number] [phone] ANUSHA DE PAZ PATIENT [place] OF [place] MEDICARE SECONDARY (NO B EXC) PLATI NUM BLUE Apr 07, 2016 [id number] [phone] ANUSHA DE PAZ PATIENT MEDICARE (WNR) MEDICARE (M) PART A Jan 05, 2010 PART A [id number] [phone] ANUSHA DE PAZ PATIENT MEDICARE ([place]) MEDICARE (M) PART B Jan 05, 2010 PART B [id number] [phone] ANUSHA DE PAZ PATIENT MEDICARE ([place]) MEDICARE (M) PART A Jan 05, 2010 PART A [id number] [phone] ANUSHA DE PAZ PATIENT MEDICARE ([place]) MEDICARE (M) PART B Jan 05, 2010 PART B [id number] ANUSHA DE PAZ PATIENT MEDICARE ([place]NR) MEDICARE (M) PART A Jan 05, 2010 PART A [id number] ANUSHA DE PAZ PATIENT PRIME [id number][facility] PRES[facility]ON [place] Feb 06, 2024 [facility] [id number] [phone] ANUSHA DE PAZ PATIENT Selected Encounter This section includes the information on record at [place] for the Encounter. Date/Time Encounter Type Encounter Description Reason Pro vider Source Jun 21, 2024 02:29 PM Outpatient Encounter COMMUNITY CARE CONSULT IHE Encounter Template Text not used by [place] Plan of Treatment: Future Appointments (+ 6 months) and Future Tests (+/- 45 days) The Plan of Treatment section includes [facility] care activities for the [facility] [place] [facility] This section includes future appointments and future orders which are active, pending or scheduled. Future Appointments This section includes appointments that were scheduled to occur 6 months from the date of the Encounter, up to a maximum of 20 appointments. The data comes from all [facility]. Appointment Date/Time Appointment Type Appointme nt Facility Name Jul 14, 2024 10:45 AM AMBULATORY - NONE [facility] Jul 14, 2024 11:30 AM AMBULATORY - MEDICINE [facility] August 24, 2024 02:00 PM AMBULATORY - NONE [facility] August 24, 2024 03:00 PM AMBULATORY - SURGERY [facility] Active, Pending, and Scheduled Orders This section includes a listing of several types of active, pending, and scheduled orders, including clinic medications orders, diagnostic test orders, procedure orders and consult orders; where the start date of the order is 45 days before the date of the Encounter or 45 days after the date of theEncounter. The data comes from all [facility]. Test Date/Time Test Type Test Details Facility Name Jul 14, 2024 12:00 AM Laboratory - Chemi stry Order AST/SGOT PLASMA SP ONCE [facility] Jul 14, 2024 12:00 AM Laboratory - Chemi stry Order ALT/SGPT PLASMA SP ONCE [facility] Lab Results: +/- 30 days of the encounter This section includes the Chemistry and Hematology Lab Results on record with [place] for the patient. Radiology Reports and Pathology Reports are provided separately, in subsequent sections. Lab Results This section contains the Chemistry/Hematology Results that were resulted 30 days before or 30 daysafter the date of the Encounter. Date/Time Source Result Type Result - Unit Interpretation Reference Range Specimen Type Comment Jul 14, 2024 10:44 AM [facility] AST/SGOT PLASMA Specimen Type: PLASMA No comment entered. Ordering Provider: LEW KENT Report Released Date/Time: Jun 17, 2024 02:13 PM Reporting Lab: [facility] [id number] Performing Lab: [facility] [id number] AST/SGOT 26 U/L 11-34 Jul 14, 2024 10:44 AM [facility] ALT/SGPT PLASMA Specimen Type: PLASMA No comment entered. Ordering Provider: LEW KENT Report Released Date/Time: Jun 17, 2024 02:13 PM Reporting Lab: [facility] [id number] Performing Lab: [facility] [id number] ALT/SGPT 22 U/L <44 Jul 14, 2024 10:44 AM [facility] HEMOGLOBIN A1C BLOOD Specimen Type: BLOOD Comment: Values obtained from A1C measurements can vary. For typical A1C assays, a reported value of 7.0 could actually be between 6.7 and 7.3 if measured by a reference method. A reported value of 9.0 could actually be between 8.7 and 9.3. Ref: http://www.ngsp.org/CAPdata.asp Ordering Provider: AFRICA CHAUHAN Report Released Date/Time: Jul 17, 2023 04:31 PM Reporting Lab: [facility] [id number] Performing Lab: [facility] [id number] HEMOGLOBIN A1C 6.2 H 4.0-6.0 Jul 14, 2024 10:44 AM [facility] BASIC METABOLIC PANEL+MG PLASMA Spe cimen Type: PLASMA No comment entered. Ordering Provider: AFRICA CHAUHAN Report Released Date/Time: Jul 17, 2023 04:31 PM Reporting Lab: [facility] [phone] Performing Lab: [facility] [id number] CREATININE 1.1 mg/dL 0.7-1.2 UREA NITROGEN 23 mg/dL 8-26 GLUCOSE 82 mg/dL 70-100 SODIUM 143 mmol/L 136-145 POTASSIUM 4.2 mmol/L 3.5-5.1 CHLORIDE 108 mmol/L H 98-107 CO2 22 mmol/L 22-29 CALCIUM 9.0 mg/dL 8.4-10.2 MAGNESIUM 2.2 mg/dL 1.6-2.6 ANION GAP 13 mmol/L 5-15 .CREAT EGFR(CKD-EPI) 68 >60 Jul 14, 2024 10:44 AM [facility] CBC BLOOD Specimen Type: BLOOD No comment entered. Ordering Provider: AFRICA CHAUHAN Report Released Date/Time: Jul 17, 2023 04:31 PM Reporting Lab: [facility] [id number] Performing Lab: [facility] [id number] WBC 7.6 4.0-11.0 RBC 4.45 L 4.60-6.20 HGB 13.6 g/dL 13.5-17.9 HCT 43.9 41.0-54.0 MCV 98.7 fL 80.0-100.0 MCH 30.6 pg 27.0-33.0 MCHC 31.0 g/dL L 32.0-37.5 PLT 134 L 150-400 MPV 10.7 fL 9.1-13.0 RDW 17.9 H 11.5-14.5 IPF 6.3 0-10 Social History: Smoking Status (Most current) and [...] 17, 2023 03:00 PM VA-TOBACCO FORMER USER [facility] Tobacco Use History This section includes a history of the smoking, or tobacco-related health factors, that were collected on or before the date of the Encounter. The data comes from the [place] facility where the Encounter took place. Date/Time Smoking Status/Tobacco Use Comment F acility Jul 17, 2023 03:00 PM VA-TOBACCO QUIT 1 TO < 5 YRS [facility] August 07, 2022 01:30 PM VA-TOBACCO FORMER USER [facility] August 07, 2022 01:30 PM VA-TOBACCO QUIT 1 TO < 5 YRS [facility] Oct 16, 2020 02:45 PM VA-TOBACCO FORMER USER [facility] Oct 16, 2020 02:45 PM VA-TOBACCO QUIT 15 YRS OR MORE [facility] Mar 29, 2019 10:59 AM VA-TOBACCO USE > 1 5 LESS THAN 30 YEARS [facility] Mar 29, 2019 10:59 AM VA-TOBACCO USE ADVICE [facility] Mar 29, 2019 10:59 AM VA-TOBACCO USE SHOES HAND SEWER NO [facility] Mar 29, 2019 10:59 AM VA-TOBACCO USE MED NO [facility] Mar 29, 2019 10:59 AM VA-TOBACCO USE WI 30 MIN OF WAKE UP [facility] Mar 29, 2019 10:59 AM VA-TOBACCO USER EVERY DAY [facility] Feb 17, 2018 03:39 PM VA-TOBACCO USE 30 YEARS OR MORE [facility] Feb 17, 2018 03:39 PM VA-TOBACCO USE ADVICE [facility] Feb 17, 2018 03:39 PM VA-TOBACCO USE SHOES HAND SEWER NO [facility] Feb 17, 2018 03:39 PM VA-TOBACCO USE MED NO [facility] Feb 17, 2018 03:39 PM VA-TOBACCO USE WI 30 MIN OF WAKE UP [facility] Feb 17, 2018 03:39 PM VA-TOBACCO USER EVERY DAY [facility] Feb 12, 2017 12:38 PM CURRENT TOBACCO USER [facility] Apr 25, 2015 07:50 AM CURRENT TOBACCO USER [facility] Apr 21, 2014 08:25 AM CURRENT TOBACCO USER [facility] Apr 20, 2013 10:04 AM CURRENT TOBACCO USER [facility] Mar 20, 2012 09:53 AM CURRENT TOBACCO USER [facility] Feb 06, 2011 09:44 AM CURRENT TOBACCO USER [facility] Jan 02, 2010 09:22 AM CURRENT TOBACCO USER [facility] Encounter Notes: All associated encounter notes This section contains the clinical notes associated to the Encounter. Date/Time Encounter Note(s) Provider Source Jun 21, 2024 02:29 PM PHARMACY NOTE: LOCAL TITLE: PHARMACY NON [place] CARE MEDICATIONS STANDARD TITLE: PHARMACY NOTE DATE OF NOTE: JUN 21, 2024@14:29 ENTRY DATE: JUN 21, 2024@14:29:57 AUTHOR: LEODAN RAMESH COSIGNER: URGENCY: STATUS: COMPLETED from NON-[place] Provider: Date eRX received: JUN 21, 2024 Outside (NON-VA) provider not authorized to write for prescription(s) through [place] pharmacy. Prescription request REDIRECTED via FAX to one of the following for review: [X][facility] [ ]Other: eRx Prescription Information: 1. [id number] metoprolol succinate SERA MCGUIRE 06/21/24 N A AV A eRx Qty: 90 eRx # of Refills: 3 eRx Days Supply: SIG: Take 1 Tablet (100 mg) by mouth once daily. /naina/ LEODAN RAMESH Pharmacist Signed: 06/21/2024 14:30 LEODAN RAMESH [facility]
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
--- OUTSIDE RECORDS SUMMARY | 2024-08-11 07:03 | XMS_ITS | Encounter Summary ---
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 [place] [facility] [place] Address [address] [place] [address] Care Team Providers Care Support Technician Name Role Phone OZ HAWKINS Primary Care [...] Patient's Relationship to Policy Kevin SHUN GARCIA [facility] ([facility]) MEDICARE ADVANTAGE [facility](W NR) Jan 05, 2010 [id number] ANUSHA DE PAZ PATIENT BC BS [facility] ([facility] ORGANIZ [id number] Jan 05, 2010 [id number] DEPENDS ON GROUP ANUSHA DE PAZ PATIENT BCBS [facility] ([place]) MEDICARE ADVANTAGE [facility] (WNR) Apr 07, 2016 [id number] [phone] ANUHSA DE PAZ PATIENT [place] SECOND[place] (NO B EXC) PLATI NUM BLUE Apr 07, 2016 [id number] [phone] ANUSHA DE PAZ PATIENT MEDICARE (WNR) MEDICARE ([place]) PART A Jan 05, 2010 PART A [id number] [phone] ANUSHA DE PAZ PATIENT MEDICARE (WNR) MEDICARE ([place]) PART B Jan 05, 2010 PART B [id number] ANUSHA DE PAZ PATIENT MEDICARE ([place]NR) MEDICARE ([place]) PART A Jan 05, 2010 PART A [id number] ANUSHA DE PAZ PATIENT MEDICARE ([place]NR) MEDICARE (M) PART B Jan 05, 2010 PART B [id number] ANUSHA DE PAZ PATIENT MEDICARE ([place]NR) MEDICARE (M) PART A Jan 05, 2010 PART A [id number] ANUSHA DE PAZ PATIENT PRIME [id number]/[facility] S PRESCRIPT ION [place] Feb 06, 2024 [facility] [id number] [phone] ANUSHA DE PAZ PATIENT Selected Encounter This section includes the information on record at [place] for the Encounter. Date/Time Encounter Type Encounter Description Reason Pro vider Source August 11, 2024 12:03 PM Outpatient Encounter COMMUNITY CARE CONSULT IHE Encounter Template Text not used by [place] Plan of Treatment: Future Appointments (+ 6 months) and Future Tests (+/- 45 days) The Plan of Treatment section includes future care activities for the patient from all [place] treatmentfacilities. This section includes future appointments and future orders which are active, pending or scheduled. Future Appointments This section includes appointments that were scheduled to occur 6 months from the date of the Encounter, up to a maximum of 20 appointments. The data comes from all [facility]. Appointment Date/Time Appointment Type Appointme nt Facility Name August 24, 2024 02:00 PM AMBULATORY - NONE [facility] August 24, 2024 03:00 PM AMBULATORY - SURGERY [facility] Active, Pending, and Scheduled Orders This section includes a listing of several types of active, pending, and scheduled orders, including clinic medications orders, diagnostic test orders, procedure orders and consult orders; where the start date of the order is 45 days before the date of the Encounter or 45 days after the date of theEncounter. The data comes from all [facility]. Test Date/Time Test Type Test Details Facility Name Jul 14, 2024 12:00 AM Laboratory - Chemi stry Order ALT/SGPT PLASMA SP ONCE [facility] Jul 14, 2024 12:00 AM Laboratory - Chemi bryan Order AST/SGOT PLASMA SP ONCE [facility] Lab Results: +/- 30 days of the encounter This section includes the Chemistry and Hematology Lab Results on record with [place] for the patient. Radiology Reports and Pathology Reports are provided separately, in subsequent sections. Lab Results This section contains the Chemistry/Hematology Results that were resulted 30 days before or 30 daysafter the date of the Encounter. Date/Time Source Result Type Result - Unit Interpretation Reference Range Specimen Type Comment Jul 14, 2024 10:44 AM [facility] AST/SGOT PLASMA Specimen Type: PLASMA No comment entered. Ordering Provider: LEW KENT Report Released Date/Time: Jun 17, 2024 02:13 PM Reporting Lab: [facility] [id number] Performing Lab: [facility] [id number] AST/SGOT 26 U/L 11-34 Jul 14, 2024 10:44 AM [facility] ALT/SGPT PLASMA Specimen Type: PLASMA No comment entered. Ordering Provider: LEW KENT Report Released Date/Time: Jun 17, 2024 02:13 PM Reporting Lab: [facility] [id number] Performing Lab: [facility] [phone] ALT/SGPT 22 U/L <44 Jul 14, 2024 10:44 AM [facility] HEMOGLOBIN A1C BLOOD Specimen Type: BLOOD Comment: [...] Jul 17, 2023 04:31 PM Reporting Lab: [facility] [id number] Performing Lab: [facility] [id number] HEMOGLOBIN A1C 6.2 H 4.0-6.0 Jul 14, 2024 10:44 AM [facility] BASIC METABOLIC PANEL+MG PLASMA Spe cimen Type: PLASMA No comment entered. Ordering Provider: AFRICA CHAUHAN Report Released Date/Time: Jul 17, 2023 04:31 PM Reporting Lab: [facility] [phone] Performing Lab: [facility] [id number] CREATININE 1.1 mg/dL 0.7-1.2 UREA NITROGEN 23 mg/dL 8-26 GLUCOSE 82 mg/dL 70-100 SODIUM 143 mmol/L 136-145 POTASSIUM 4.2 mmol/L 3.5-5.1 CHLORIDE 108 mmol/L H 98-107 CO2 22 mmol/L 22-29 CALCIUM 9.0 mg/dL 8.4-10.2 MAGNESIUM 2.2 mg/dL 1.6-2.6 ANION GAP 13 mmol/L 5-15 .CREAT EGFR(CKD-EPI) 68 >60 Jul 14, 2024 10:44 AM [facility] CBC BLOOD Specimen Type: BLOOD No comment entered. Ordering Provider: AFRICA CHAUHAN Report Released Date/Time: Jul 17, 2023 04:31 PM Reporting Lab: [facility] [id number] Performing Lab: [facility] [phone] WBC 7.6 4.0-11.0 RBC 4.45 L 4.60-6.20 [...] and tobacco- related health factors from the [place] facility where the Encounter took place. Current Smoking Status This section includes the most current smoking, or tobacco-related health factor, from the [place] facility where the Encounter took place. Date/Time Current Smoking Status Comment Liam shah Jul 14, 2024 11:30 AM VA-TOBACCO USE FORMER CIGARETTES [facility] Tobacco Use History This section includes a history of the smoking, or tobacco-related health factors, that were collected on or before the date of the Encounter. The data comes from the [place] facility where the Encounter took place. Date/Time Smoking Status/Tobacco Use Comment F acility Jul 14, 2024 11:30 AM VA-TOBACCO USE FORMER CIGARETTES [facility] Jul 17, 2023 03:00 PM VA-TOBACCO FORMER USER [facility] Jul 17, 2023 03:00 PM VA-TOBACCO QUIT 1 TO < 5 YRS [facility] August 07, 2022 01:30 PM VA-TOBACCO FORMER USER [facility] August 07, 2022 01:30 PM VA-TOBACCO QUIT 1 TO < 5 YRS [facility] Oct 16, 2020 02:45 PM VA-TOBACCO FORMER USER [facility] Oct 16, 2020 02:45 PM VA-TOBACCO QUIT 15 YRS OR MORE [facility] Mar 29, 2019 10:59 AM VA-TOBACCO USE > 1 5 LESS THAN 30 YEARS [facility] Mar 29, 2019 10:59 AM VA-TOBACCO USE ADVICE [facility] Mar 29, 2019 10:59 AM VA-TOBACCO USE LINER MAN NO [facility] Mar 29, 2019 10:59 AM VA-TOBACCO USE MED NO [facility] Mar 29, 2019 10:59 AM VA-TOBACCO USE WI 30 MIN OF WAKE UP [facility] Mar 29, 2019 10:59 AM VA-TOBACCO USER EVERY DAY [facility] Feb 17, 2018 03:39 PM VA-TOBACCO USE 30 YEARS OR MORE [facility] Feb 17, 2018 03:39 PM VA-TOBACCO USE ADVICE [facility] Feb 17, 2018 03:39 PM VA-TOBACCO USE LINER MAN NO [facility] Feb 17, 2018 03:39 PM VA-TOBACCO USE MED NO [facility] Feb 17, 2018 03:39 PM VA-TOBACCO USE WI 30 MIN OF WAKE UP [facility] Feb 17, 2018 03:39 PM VA-TOBACCO USER EVERY DAY [facility] Feb 12, 2017 12:38 PM CURRENT TOBACCO USER [facility] Apr 25, 2015 07:50 AM CURRENT TOBACCO USER [facility] Apr 21, 2014 08:25 AM CURRENT TOBACCO USER [facility] Apr 20, 2013 10:04 AM CURRENT TOBACCO USER [facility] Mar 20, 2012 09:53 AM CURRENT TOBACCO USER [facility] Feb 06, 2011 09:44 AM CURRENT TOBACCO USER [facility] Jan 02, 2010 09:22 AM CURRENT TOBACCO USER [facility] Encounter Notes: All associated encounter notes This section contains the clinical notes associated to the Encounter. Date/Time Encounter Note(s) Provider Source August 11, 2024 12:03 PM PHARMACY NOTE: LOCAL TITLE: PHARMACY NON [place] CARE MEDICATIONS STANDARD TITLE: PHARMACY NOTE DATE OF NOTE: AUGUST 11, 2024@12:03 ENTRY DATE: AUGUST 11, 2024@12:03:37 AUTHOR: LEODAN RAMESH COSIGNER: URGENCY: STATUS: COMPLETED from NON-[place] Provider: Date eRX received: AUGUST 11, 2024 Outside (NON-VA) provider not authorized to write for prescription(s) through [place] pharmacy. Prescription request REDIRECTED via FAX to one of the following for review: [X][facility] (Dual) [facility] [ ]Other: eRx Prescription Information: 1. [id number] furosemide 20 mg table CASE,LC BUSTAMANTE 08/11/24 N A A A eRx Qty: 90 eRx # of Refills: 3 eRx Days Supply: SIG: Take 1 Tablet (20 mg) by mouth once daily in the morning. Lasix to 20 mg daily // LEODAN RAMESH Pharmacist Signed: 08/11/2024 12:03 LEODAN RAMESH [facility]
--- OUTSIDE RECORDS SUMMARY | 2024-08-24 10:00 | XMS_ITS | Encounter Summary ---
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 [place] Address [address] [place] [address] Care Team Providers Care Senior Business Consultant Name Role Phone OZ HAWKINS Primary Care [...] Patient's Relationship to Policy Kevin SHUN GARCIA [facility] ([facility]) MEDICARE ADVANTAGE [facility](W NR) Jan 05, 2010 [id number] [phone] ANUSHA DE PAZ PATIENT BC BS [facility] ([facility]) [facility] ORGANIZ [id number] Jan 05, 2010 [id number] DEPENDS ON GROUP ANUSHA DE PAZ PATIENT BCBS [facility] ([facility]) MEDICARE ADVANTAGE [facility] (WN) Apr 07, 2016 [id number] [phone] ANUSHA DE PAZ PATIENT [place] MED[place]ARE SECOND[place] (NO B EXC) PLATI NUM BLUE Apr 07, 2016 [id number] [phone] ANUSHA DE PAZ PATIENT MEDICARE ([facility]) MEDICARE ([place]) PART A Jan 05, 2010 PART A [id number] [phone] ANUSHA DE PAZ PATIENT MEDICARE (WNR) MEDICARE (M) PART B Jan 05, 2010 PART B [id number] ANUSHA DE PAZ PATIENT MEDICARE ([place]NR) MEDICARE ([place]) PART A Jan 05, 2010 PART A [id number] ANUSHA DE PAZ PATIENT MEDICARE ([place]NR) MEDICARE ([place]) PART B Jan 05, 2010 PART B [id number] ANUSHA DE PAZ PATIENT MEDICARE (WNR) MEDICARE ([place]) PART A Jan 05, 2010 PART A [id number] ANUSHA DE PAZ PATIENT PRIME [id number]/[facility] S PRESCRIPT ION [place] Feb 06, 2024 [facility] [id number] [phone] ANUSHA DE PAZ PATIENT Selected Encounter This section includes the information on record at [place] for the Encounter. Date/Time Encounter Type Encounter Description Reason Provider Source August 24, 2024 03:00 PM OFFICE O/P EST MOD 30 MIN DERMATOLOGY ICD-10-CM L57.0 Actinic keratosis RODRIGUEZ RAJPUT Encounter Template Text not used by [place] Assessments - Encounter Diagnoses This section includes the primary and secondary diagnoses documented for the Encounter. Date/Time Primary/Secondary Diagnosis Diagnosis Name Provider Source August 24, 2024 03:33 PM PRIMARY Actinic keratosis EVERETTMARK Henley [facility] August 24, 2024 03:33 PM SECONDARY Inflamed seborrheic keratosis [place],[facility] August 24, 2024 03:33 PM SECONDARY Other hypertrophic disorders of the skin MARK FLOYD [facility] August 24, 2024 03:33 PM SECONDARY Other melanin hyperpigmentation MARK FLOYD [facility] Plan of Treatment: Future Appointments (+ 6 months) and Future Tests (+/- 45 days) The Plan of Treatment section includes future care activities for the patient from all [place] treatmentfacilities. This section includes future appointments and future orders which are active, pending or scheduled. Active, Pending, and Scheduled Orders This section includes a listing of several types of active, pending, and scheduled orders, including clinic medications orders, diagnostic test orders, procedure orders and consult orders; where the start date of the order is 45 days before the date of the Encounter or 45 days after the date of theEncounter. The data comes from all [place] treatment facilities. Test Date/Time Test Type Test Details Facility Name Jul 14, 2024 12:00 AM Laboratory - Chemi stry Order AST/SGOT PLASMA SP ONCE [facility] Jul 14, 2024 12:00 AM Laboratory - Chemi stry Order ALT/SGPT PLASMA SP ONCE [facility] Social History: Smoking Status (Most [...] Current Smoking Status Comment Facil ity Jul 14, 2024 11:30 AM VA-TOBACCO USE FORMER CIGARETTES [facility] Tobacco Use History This section includes a history of the smoking, or tobacco-related health factors, that were collected on or before the date of the Encounter. The data comes from the [place] facility where the Encounter took place. Date/Time Smoking Status/Tobacco Use Comment F acility Jul 14, 2024 11:30 AM VA-TOBACCO USE FORMER CIGARETTES [facility] Jul 17, 2023 03:00 PM VA-TOBACCO FORMER USER [facility] Jul 17, 2023 03:00 PM VA-TOBACCO QUIT 1 TO < 5 YRS [facility] August 07, 2022 01:30 PM VA-TOBACCO FORMER USER [facility] August 07, 2022 01:30 PM VA-TOBACCO QUIT 1 TO < 5 YRS [facility] Oct 16, 2020 02:45 PM VA-TOBACCO FORMER USER [facility] Oct 16, 2020 02:45 PM VA-TOBACCO QUIT 15 YRS OR MORE [facility] Mar 29, 2019 10:59 AM VA-TOBACCO USE > 1 5 LESS THAN 30 YEARS [facility] Mar 29, 2019 10:59 AM VA-TOBACCO USE ADVICE [facility] Mar 29, 2019 10:59 AM VA-TOBACCO USE TRANSMISSION AND PROTECTION 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 NO [facility] Mar 29, 2019 10:59 AM VA-TOBACCO USE MED NO [facility] Mar 29, 2019 10:59 AM VA-TOBACCO USE WI 30 MIN OF WAKE UP [facility] Mar 29, 2019 10:59 AM VA-TOBACCO USER EVERY DAY [facility] Feb 17, 2018 03:39 PM VA-TOBACCO USE 30 YEARS OR MORE [facility] Feb 17, 2018 03:39 PM VA-TOBACCO USE ADVICE [facility] Feb 17, 2018 03:39 PM VA-TOBACCO USE TRANSMISSION AND PROTECTION ENGINEER NO [facility] Feb 17, 2018 03:39 PM VA-TOBACCO USE MED NO [facility] Feb 17, 2018 03:39 PM VA-TOBACCO USE WI 30 MIN OF WAKE UP [facility] Feb 17, 2018 03:39 PM VA-TOBACCO USER EVERY DAY [facility] Feb 12, 2017 12:38 PM CURRENT TOBACCO USER [facility] Apr 25, 2015 07:50 AM CURRENT TOBACCO USER [facility] Apr 21, 2014 08:25 AM CURRENT TOBACCO USER [facility] Apr 20, 2013 10:04 AM CURRENT TOBACCO USER [facility] Mar 20, 2012 09:53 AM CURRENT TOBACCO USER [facility] Feb 06, 2011 09:44 AM CURRENT TOBACCO USER [facility] Jan 02, 2010 09:22 AM CURRENT TOBACCO USER [facility] Encounter Notes: All associated encounter notes This section contains the clinical notes associated to the Encounter. Date/Time Encounter Note(s) Provider Source August 24, 2024 03:01 PM DERMATOLOGY CONSUL T: LOCAL TITLE: DERMATOLOGY CONSULT STANDARD TITLE: DERMATOLOGY CONSULT DATE OF NOTE: AUGUST 24, 2024@15:01 ENTRY DATE: AUGUST 24, 2024@15:01:13 AUTHOR: MARK FLOYD COSIGNER: URGENCY: STATUS: COMPLETED Dr. Rajput saw and evaluated the patient with me, and agrees with the findings, assessment and plan as outlined. Clinic Note Dermatology Problem List: UBSE 08/24/2024 # AK - LN2 # iSK - Ln2 # Xerosis - vanicream SUBJECTIVE: ANUSHA DE PAZ is a 79 year old MALE who presents today for skin check. Itchy bump on R trunk. Likes to mow his lawn, 2 acres every week. Likes to get garcia. Otherwise no new, tender, non-healing,or bleeding lesions. Wears sunscreen sometimes. No other concerns today. Review of systems: CONST: Otherwise in baseline state of health. SKIN: As above in HPI, no additional skin concerns. OBJECTIVE: GEN: No acute distress. SKIN: UBSE - Scalp with diffuse loose scale, greasy scale in a seborrheic distribution - On the L arm, R arm, sclap x 2, cheek x 3, L eyebrow, b/l helices x 2, there are gritty pink papules. - On the trunk and extremities, there are flesh-colored to light brown, waxy, stuck on papules and plaques. - On the trunk and extremities with accentuation in sun-exposed areas, there are light brown macules with uniform appearance. - On trunk and extremities, there are firm red papules. - diffuse xerosis ASSESSMENT & PLAN: # Actinic keratoses Etiology and treatment options reviewed. 12 total. Offered field therapy, pt elects for LN2. - Lesions treated with 1-2 freeze-thaw cycles of liquid nitrogen cryotherapy. Counseled that lesions will become red, may blister, and then heal in 1-2 weeks. Risks including recurrence and scar discussed. - Diligent sun protection with daily SPF30+ advised # Seborrheic keratoses, thomas angiomas. Reassured of benign etiology. R trunk. - No further intervention required - Symptomatic/irritated lesions were treated with 1-2 freeze-thaw cycles of liquid nitrogen cryotherapy. Counseled that lesions will become red, may blister, and then heal in 1-2 weeks. Risks including recurrence and scar discussed. # Xerosis Pt describes intermediate itch, uses vicky spring. Does not moisturize. - recommend vanicream daily - gentle skin cares handout provided - handout/pamphlets provided to pt for duaghter RTC 12 months for FBSE. Advised sooner for any tender, painful, bleeding, rapidly changing, or otherwise concerning lesions. Total encounter time (including chart review, counseling, documentation, ordering of labs/meds): 30-39 min /es/ MARK FLOYD MD RESIDENT Signed: 08/24/2024 15:34 MARK FLOYD [facility]
--- OUTSIDE RECORDS SUMMARY | 2024-09-01 09:56 | XMS_ITS | Encounter Summary ---
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 [place] [facility] [place] Address [address] [place] [address] Care Team Providers Care Extension Service Specialist Name Role Phone OZ HAWKINS Primary Care [...] Patient's Relationship to Policy Kevin SHUN GARCIA [facility] ([facility]) MEDICARE ADVANTAGE [facility](W NR) Jan 05, 2010 [id number] [phone] ANUSHA DE PAZ PATIENT BC BS [facility] ([facility]) [facility] ORGANIZ [id number] Jan 05, 2010 [id number] [employer] DE PAZANUSHA PATIENT BCBS [facility] (WNR) MEDICARE ADVANTAGE [facility] (WNR) Apr 07, 2016 [id number] [phone] ANUSHA DE PAZ PATIENT [place]BS [place] MEDICARE SECONDARY (NO B EXC) PLATI NUM BLUE Apr 07, 2016 [id number] [phone] ANUSHA DE PAZ PATIENT MEDICARE (WNR) MEDICARE (M) PART B Jan 05, 2010 PART B [id number] [phone] ANUSHA DE PAZ PATIENT MEDICARE ([place]NR) MEDICARE (M) PART A Jan 05, 2010 PART A [id number] ANUSHA ED PAZ PATIENT MEDICARE ([place]) MEDICARE (M) PART A Jan 05, 2010 PART A [id number] [phone] ANUSHA DE PAZ PATIENT MEDICARE ([place]NR) MEDICARE (M) PART B Jan 05, 2010 PART B [id number] [phone] ANUSHA DE PAZ PATIENT MEDICARE ([place]NR) MEDICARE (M) PART A Jan 05, 2010 PART A [id number] ANUSHA DE PAZ PATIENT PRIME [id number]/[facility] S PRESCRIPT ION [place] Feb 06, 2024 [facility] [id number] [phone] ANUSHA DE PAZ PATIENT Selected Encounter This section includes the information on record at [place] for the Encounter. Date/Time Encounter Type Encounter Description Reason Pro vider Source September 01, 2024 02:56 PM Outpatient Encounter COMMUNITY CARE CONSULT IHE Encounter Template Text not used by [place] Social History: Smoking Status (Most current) and Tobacco Use (All prior to encounter date) This section includes the most current, and the historical, smoking and tobacco- related health factors from the [place] facility where the Encounter took place. Current Smoking Status This section includes the most current smoking, or tobacco-related health factor, from the [place] facility where the Encounter took place. Date/Time Current Smoking Status Comment Liam ity Jul 14, 2024 11:30 AM VA-TOBACCO USE FORMER CIGARETTES [facility] Tobacco Use History This section includes a history of the smoking, or tobacco-related health factors, that were collected on or before the date of the Encounter. The data comes from the [place] facility where the Encounter took place. Date/Time Smoking Status/Tobacco Use Comment F acility Jul 14, 2024 11:30 AM VA-TOBACCO USE FORMER CIGARETTES [facility] Jul 17, 2023 03:00 PM VA-TOBACCO FORMER USER [facility] Jul 17, 2023 03:00 PM VA-TOBACCO QUIT 1 TO < 5 YRS [facility] August 07, 2022 01:30 PM VA-TOBACCO FORMER USER [facility] August 07, 2022 01:30 PM VA-TOBACCO QUIT 1 TO < 5 YRS [facility] Oct 16, 2020 02:45 PM VA-TOBACCO FORMER USER [facility] Oct 16, 2020 02:45 PM VA-TOBACCO QUIT 15 YRS OR MORE [facility] Mar 29, 2019 10:59 AM VA-TOBACCO USE > 1 5 LESS THAN 30 YEARS [facility] Mar 29, 2019 10:59 AM VA-TOBACCO USE ADVICE [facility] Mar 29, 2019 10:59 AM VA-TOBACCO USE COOK SPECIALTY NO [facility] Mar 29, 2019 10:59 AM VA-TOBACCO USE MED NO [facility] Mar 29, 2019 10:59 AM VA-TOBACCO USE WI 30 MIN OF WAKE UP [facility] Mar 29, 2019 10:59 AM VA-TOBACCO USER EVERY DAY [facility] Feb 17, 2018 03:39 PM VA-TOBACCO USE 30 YEARS OR MORE [facility] Feb 17, 2018 03:39 PM VA-TOBACCO USE ADVICE [facility] Feb 17, 2018 03:39 PM VA-TOBACCO USE COOK SPECIALTY NO [facility] Feb 17, 2018 03:39 PM VA-TOBACCO USE MED NO [facility] Feb 17, 2018 03:39 PM VA-TOBACCO USE WI 30 MIN OF WAKE UP [facility] Feb 17, 2018 03:39 PM VA-TOBACCO USER EVERY DAY [facility] Feb 12, 2017 12:38 PM CURRENT TOBACCO USER [facility] Apr 25, 2015 07:50 AM CURRENT TOBACCO USER [facility] Apr 21, 2014 08:25 AM CURRENT TOBACCO USER [facility] Apr 20, 2013 10:04 AM CURRENT TOBACCO USER [facility] Mar 20, 2012 09:53 AM CURRENT TOBACCO USER [facility] Feb 06, 2011 09:44 AM CURRENT TOBACCO USER [facility] Jan 02, 2010 09:22 AM CURRENT TOBACCO USER [facility] Encounter Notes: All associated encounter notes This section contains the clinical notes associated to the Encounter. Date/Time Encounter Note(s) Provider Source September 01, 2024 02:56 PM PHARMACY NOTE: LOCAL TITLE: PHARMACY NON [place] CARE MEDICATIONS STANDARD TITLE: PHARMACY NOTE DATE OF NOTE: SEPTEMBER 01, 2024@14:56 ENTRY DATE: SEPTEMBER 01, 2024@14:56:52 AUTHOR: ZOFIA CORREA COSIGNER: URGENCY: STATUS: COMPLETED [facility] RECEIVED electronic prescription(s) (eRX(s)) from NON-[place] Provider: SERA TATUM Date eRX received: August Outside (NON-VA) provider not authorized to write for prescription(s) through [place] pharmacy. Prescription request REDIRECTED via FAX to one of the following for review: [X][facility] (Dual) [facility] [ ]Other: eRx Prescription Information: 1. [id number] tiotropium 2.5 mcg-olSERA Fuentes 09/01/24 N A AV A eRx Qty: 4 eRx # of Refills: 0 eRx Days Supply: SIG: Inhale 2 Puffs by mouth once daily. 2. [id number] gabapentin 100 mg caps SERA TATUM 09/01/24 N A AV A eRx Qty: 60 eRx # of Refills: 1 eRx Days Supply: SIG: Take 1 Capsule (100 mg) by mouth 3 times daily if needed (for leg pain). /naina/ JB GOMEZ Pharmacist Signed: 09/01/2024 14:58 JB CORREA [facility]
--- OUTSIDE RECORDS SUMMARY | 2024-11-01 08:53 | XMS_ITS | Encounter Summary ---
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 [place] [facility] [place] [facility] [place] Address [address] [place] [address] Care Team Providers Care Blending Operator Name Role Phone OZ HAWKINS Primary Care [...] Patient's Relationship to Policy Kevin SHUN GARCIA [facility] ([facility]) MEDICARE ADVANTAGE [facility](W NR) Jan 05, 2010 [id number] ANUSHA DE PAZ PATIENT BC BS [facility] ([facility]) [facility] ORGANIZ [id number] Jan 05, 2010 [id number] DEPENDS ON [employer] ANUSHA DE PAZ PATIENT BCBS [facility] ([place]) MEDICARE ADVANTAGE [facility] (WNR) Apr 07, 2016 [id number] [phone] ANUSHA DE PAZ PATIENT [place] OF [place] MEDICARE SECONDARY (NO B EXC) PLATI NUM BLUE Apr 07, 2016 [id number] [phone] ANUSHA DE PAZ PATIENT MEDICARE (WNR) MEDICARE (M) PART A Jan 05, 2010 PART A [id number] ANUSHA DE PAZ PATIENT MEDICARE ([place]NR) MEDICARE (M) PART B Jan 05, 2010 PART B [id number] ANUSHA DE PAZ PATIENT MEDICARE ([place]) MEDICARE (M) PART A Jan 05, 2010 PART A [id number] ANUSHA DE PAZ PATIENT MEDICARE ([place]NR) MEDICARE (M) PART B Jan 05, 2010 PART B [id number] ANUSHA DE PAZ PATIENT MEDICARE ([place]NR) MEDICARE (M) PART A Jan 05, 2010 PART A [id number] ANUSHA DE PAZ PATIENT PRIME [id number]/[facility] S PRESCRIPT ION [place] Feb 06, 2024 [facility] [id number] [phone] ANUSHA DE PAZ PATIENT Selected Encounter This section includes the information on record at [place] for the Encounter. Date/Time Encounter Type Encounter Description Reason Pro vider Source Nov 01, 2024 01:53 PM Outpatient Encounter COMMUNITY CARE CONSULT IHE Encounter Template Text not used by [place] Social History: Smoking Status (Most current) and Tobacco Use (All prior to encounter date) This section includes the most current, and the historical, smoking and tobacco- related health factors from the [place] facility where the Encounter took place. Current Smoking Status This section includes the most current smoking, or tobacco-related health factor, from the [place] facility where the Encounter took place. Date/Time Current Smoking Status Comment Liam ity Jul 14, 2024 11:30 AM VA-TOBACCO USE FORMER CIGARETTES [facility] Tobacco Use History This section includes a history of the smoking, or tobacco-related health factors, that were collected on or before the date of the Encounter. The data comes from the [place] facility where the Encounter took place. Date/Time Smoking Status/Tobacco Use Comment F acility Jul 14, 2024 11:30 AM VA-TOBACCO USE FORMER CIGARETTES [facility] Jul 17, 2023 03:00 PM VA-TOBACCO FORMER USER [facility] Jul 17, 2023 03:00 PM VA-TOBACCO QUIT 1 TO < 5 YRS [facility] August 07, 2022 01:30 PM VA-TOBACCO FORMER USER [facility] August 07, 2022 01:30 PM VA-TOBACCO QUIT 1 TO < 5 YRS [facility] Oct 16, 2020 02:45 PM VA-TOBACCO FORMER USER [facility] Oct 16, 2020 02:45 PM VA-TOBACCO QUIT 15 YRS OR MORE [facility] Mar 29, 2019 10:59 AM VA-TOBACCO USE > 1 5 LESS THAN 30 YEARS [facility] Mar 29, 2019 10:59 AM VA-TOBACCO USE ADVICE [facility] Mar 29, 2019 10:59 AM 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 [facility] Mar 29, 2019 10:59 AM VA-TOBACCO USE MED NO [facility] Mar 29, 2019 10:59 AM VA-TOBACCO USE WI 30 MIN OF WAKE UP [facility] Mar 29, 2019 10:59 AM VA-TOBACCO USER EVERY DAY [facility] Feb 17, 2018 03:39 PM VA-TOBACCO USE 30 YEARS OR MORE [facility] Feb 17, 2018 03:39 PM VA-TOBACCO USE ADVICE [facility] Feb 17, 2018 03:39 PM 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 [facility] Feb 17, 2018 03:39 PM VA-TOBACCO USE MED NO [facility] Feb 17, 2018 03:39 PM VA-TOBACCO USE WI 30 MIN OF WAKE UP [facility] Feb 17, 2018 03:39 PM VA-TOBACCO USER EVERY DAY [facility] Feb 12, 2017 12:38 PM CURRENT TOBACCO USER [facility] Apr 25, 2015 07:50 AM CURRENT TOBACCO USER [facility] Apr 21, 2014 08:25 AM CURRENT TOBACCO USER [facility] Apr 20, 2013 10:04 AM CURRENT TOBACCO USER [facility] Mar 20, 2012 09:53 AM CURRENT TOBACCO USER [facility] Feb 06, 2011 09:44 AM CURRENT TOBACCO USER [facility] Jan 02, 2010 09:22 AM CURRENT TOBACCO USER [facility] Encounter Notes: All associated encounter notes This section contains the clinical notes associated to the Encounter. Date/Time Encounter Note(s) Provider Source Nov 01, 2024 01:53 PM PHARMACY NOTE: LOCAL TITLE: PHARMACY NON [place] CARE MEDICATIONS STANDARD TITLE: PHARMACY NOTE DATE OF NOTE: NOV 01, 2024@13:53 ENTRY DATE: NOV 01, 2024@13:53:59 AUTHOR: AGATHA MCKAY COSIGNER: URGENCY: STATUS: COMPLETED [facility] RECEIVED the following electronic prescription(s): 1. [id number] tamsulosin 0.4 mg capsule eRx Qty: 90 eRx # of Refills: 1 eRx Days Supply: SIG: Take 1 Capsule (0.4 mg) by mouth once daily after a meal. Date eRX received: 11/01/24 Ordering Provider: lynn simms The outside (NON-VA) provider not authorized to write for prescription(s) through community care at this [place] pharmacy at this time. Prescription request FORWARDED via FAX to Otto Barros /naina/ AGATHA MCKAY PharmD Signed: 11/01/2024 13:54 AGATHA MCKAY [facility]
[2024-12-06] VITALS (40 sets, daily range): BP systolic 62–106; BP diastolic 21–91; PULSE 92–130; RESP 13–28; TEMP 36.3–36.8; O2SAT 90–97; BMI 24.4
--- OUTSIDE RECORDS SUMMARY | 2024-12-06 05:26 | XMS_ITS | Continuity of Care Document ---
Author Name [facility] Organization [facility] Care Team Providers Care Director Customer Name Role Phone [facility] Unavailable Unavailable Problems Combined list of problems from Department of Defense and Veterans Affairs facilities. It does not include entries that were removed or entered in error. Problem Status Onset Date Problem Type Date of Resolution Comments Source CVD - Cerebrovascular Disease ([facility] 94789307) Active 03/19/20 20 Condition May 01, 2020 Entered By: YOAV CHAUHAN Comment: 03/19/20: L MCA CVA, Admit ANW. Cardio-embol ic d/t Warfarin DC [facility] CAD - Coronary Artery Disease ([facility] 74566383) Active 01/27/20 20 Condition Mar 13, 2020 Entered By: YOAV CHAUHAN Comment: 01/27/20: LAD and Dx stented w/SATHYA at [facility]. Plavix +ASA thru 01/26/21 [facility] Peripheral arterial insufficiency Active 01/21/20 20 Condition Mar 13, 2020 Entered By: YOAV CHAUHAN Comment: 01/21/20: L femoral Art occlusion per [facility]-->Fem -Tibial bypass planned [facility] Allergic rhinitis (SNOMED CT 98842636) Active Condition [facility] Atrial fibrillation (SNOMED CT 55584394) Active Condition Apr 26, 2015 Entered By: YOAV CHAUHAN Comment: Warfarin through Miryam Rodriguez [facility] Co-Managed Care Active Condition Dec 25, 2017 Entered By: YOAV CHAUHAN Comment: Dr Garcia, Michael [place], F: [phone] , [facility] COPD - Chronic Obstructive Pulmonary Disease ([facility] 34168848) Active Condition Dec 25, 2017 Entered By: YOAV CHAUHAN Comment: Mometasone & Albuterol MDI's [facility] [place] of toe Active Condition Sep 08, 2019 Entered By: YOAV CHAUHAN Comment: R middle toe [facility] Current smoker Active Condition Apr 082015 Entered By: YOAV CHAUHAN Comment: Cigars, not cigarettes [facility] Essential hypertension (SNOMED CT 61183656) Active Condition [facility] Glucose intolerance Active Condition [facility] Long-term current use of anticoagulant Active Condition [facility] Nocturia due to benign prostatic hypertrophy Active Condition [facility] Health Maintenance (ICD-9-CM V65.9) Inactive Condition 04/26/2015 BELGICA MANCILLA [facility] Diagnosis: ICD-10-CM L57.0 Actinic keratosis Active Diagnosis [facility] Diagnosis: ICD-10-CM I48.20 Chronic atrial fibrillation, unspecified Active Diagnosis [facility] Diagnosis: ICD-10-CM 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 Active Diagnosis [facility] Diagnosis: ICD-10-CM I50.21 Acute systolic (congestive) heart failure Active Diagnosis [facility] Diagnosis: ICD-10-CM Z00.01 Encounter for general adult medical exam w abnormal findings Active Diagnosis [facility] Medications Combined list of outpatient medications from Department of Defense and [facility] Affairs facilities.Medications provided include 1) outpatient medications [...] S OF BREATH RESPIR ATORY (INHAL ATION) 07/17/2024 [id number] AFRICA CHAUHAN 2023 2 [facility] APIXABAN 5MG TAB TAKE ONE TABLET BY MOUTH EVERY 12 HOURS TO PREVENT BLOOD CLOTS AND STROKE (ELIQUIS ) ORAL ACTIVE 05/12/2025 [id number] 5 ROBERTO WYNN 2024 180 [facility] APIXABAN 5MG TAB TAKE ONE TABLET BY MOUTH EVERY 12 HOURS TO PREVENT BLOOD CLOTS AND STROKE (ELIQUIS ) ORAL DISCONT INUED 05/29/2024 [id number] 4 MARIANO GARCIA 2023 180 [facility] CHOLECALCIF JONNA 25MCG (1,000UNIT) TAB TAKE FIVE TABLETS BY MOUTH QOD ORAL ACTIVE AFRICA CHAUHAN [place] 2016 [facility] EMPAGLIFLOZ IN 10MG TAB TAKE ONE TABLET BY MOUTH EVERY MORNING FOR DIABETES ORAL ACTIVE 05/19/2025 [id number] 5 BEATRIZ HAWKINS 2024 90 [facility] FLUTICASONE 250MCG/SALM ETEROL 50MCG INHL,ORAL,D ISKUS,60 INHALE 1 PUFF BY INHALATI ON TWICE A DAY FOR COPD RESPIR ATORY (INHAL ATION) ACTIVE 07/20/2025 [id number] 5 BEATRIZ HAWKINS 2024 3 [place] [facility] FLUTICASONE 250MCG/SALM ETEROL 50MCG INHL,ORAL,D ISKUS,60 INHALE 1 PUFF BY INHALATI ON TWICE A DAY FOR COPD RESPIR ATORY (INHAL ATION) DISCONT INUED 07/17/2024 [id number] 5 AFRICA CHAUHAN 2023 3 [facility] FUROSEMIDE 20MG TAB TAKE ONE TABLET BY MOUTH EVERY MORNING FOR HEART FAILURE ORAL ACTIVE 08/25/2025 [id number] 5 BEATRIZ HAWKINS 2024 90 [facility] FUROSEMIDE 20MG TAB TAKE ONE TABLET BY MOUTH EVERY MORNING FOR HEART FAILURE ORAL DISCONT INUED 08/19/2025 [id number] 5 BEATRIZ HAWKINS 2024 90 [facility] FUROSEMIDE 20MG TAB TAKE ONE TABLET BY MOUTH THREE TIMES A WEEK FOR HEART FAILURE ORAL DISCONT INUED (EDIT) 05/29/2025 [id number] 5 BEATRIZ HAWKINS 2024 39 [facility] FUROSEMIDE 20MG TAB TAKE ONE TABLET BY MOUTH THREE TIMES A WEEK FOR HEART FAILURE ORAL DISCONT INUED 05/19/2025 [id number] 5 BEATRIZ HAWKINS 2024 39 [facility] FUROSEMIDE 20MG TAB TAKE ONE TABLET BY MOUTH THREE TIMES A WEEK FOR HEART FAILURE ORAL DISCONT INUED 03/18/2025 [id number] 4 BEATRIZ HAWKINS 2023 39 [facility] GABAPENTIN 100MG CAP TAKE ONE CAPSULE BY MOUTH THREE TIMES A DAY NEEDED FOR PAIN AND NUMBNESS ORAL ACTIVE 09/14/2025 [id number] 5 BEATRIZ HAWKINS 2024 270 [facility] GABAPENTIN 100MG CAP TAKE ONE CAPSULE BY MOUTH THREE TIMES A DAY NEEDED FOR PAIN AND NUMBNESS ORAL DISCONT INUED 09/10/2025 [id number] 5 BEATRIZ HAWKINS 2024 90 [facility] LISINOPRIL 2.5MG TAB TAKE ONE TABLET BY MOUTH AT BEDTIME FOR BLOOD PRESSURE ORAL DISCONT INUED BY PROVIDE R 04/17/2025 [id number] 5 BEATRIZ HAWKINS 2024 90 [facility] METOPROLOL SUCCINATE 100MG TAB,SA TAKE ONE TABLET BY MOUTH EVERY DAY FOR BLOOD PRESSURE ORAL ACTIVE 07/15/2025 [id number] 5 BEATRIZ HAWKINS 2024 90 [facility] METOPROLOL SUCCINATE 100MG TAB,SA TAKE ONE TABLET BY MOUTH TWICE A DAY FOR HEART FAILURE ORAL DISCONT INUED 06/24/2025 [id number] 5 BEATRIZ HAWKINS 2024 180 [facility] METOPROLOL TARTRATE 100MG TAB TAKE ONE TABLET BY MOUTH TWICE A DAY FOR BLOOD PRESSURE ORAL DISCONT INUED BY PROVIDE R 05/19/2025 [id number] 5 BEATRIZ HAWKINS 2024 180 [facility] METOPROLOL TARTRATE 100MG TAB TAKE ONE TABLET BY MOUTH TWICE A DAY FOR BLOOD PRESSURE ORAL DISCONT INUED 12/23/2024 [id number] 4 AFRICA CHAUHAN 2023 180 [facility] METOPROLOL TARTRATE 100MG TAB TAKE ONE TABLET BY MOUTH TWICE A DAY FOR BLOOD PRESSURE ORAL DISCONT INUED 12/13/2023 [id number] 4 AFRICA CHAUHAN LATESHA 2022 180 [facility] NIFEDIPINE (EQV-CC) 90MG TAB,SA TAKE ONE TABLET BY MOUTH EVERY DAY FOR BLOOD PRESSURE ORAL DISCONT INUED BY PROVIDE R 07/17/2024 [id number] 4 CHAUHAN AFRICA LATESHA 2023 90 [facility] OLODATEROL 2.5MCG/TIOT ROPIUM 2.5MCG/ACTU AT INHL,ORAL,6 0D,4GM INHALE 2 PUFFS BY INHALATI ON EVERY DAY FOR COPD RESPIR ATORY (INHAL ATION) ACTIVE 09/17/2025 [id number] 5 BEATRIZ HAWKINS 2024 3 [facility] POTASSIUM CHLORIDE 10MEQ TAB,SA TAKE ONE TABLET BY MOUTH THREE TIMES A WEEK FOR POTASSIU M SUPPLEME NT TAKE WITH FUROSEMI DE ORAL SUSPEND ED 07/03/2025 [id number] 5 BEATRIZ HAWKINS 2024 39 [facility] ROSUVASTATI N CA 20MG TAB TAKE ONE TABLET BY MOUTH AT BEDTIME FOR CORONARY ARTERY DISEASE ORAL ACTIVE 09/08/2025 [id number] 5 BEATRIZ HAWKINS 2024 90 [facility] ROSUVASTATI N CA 20MG TAB TAKE ONE TABLET BY MOUTH AT BEDTIME FOR CORONARY ARTERY DISEASE ORAL 07/17/2024 [id number] 5 AFRICA CHAUHAN 2023 90 [facility] SACUBITRIL 24MG/VALSAR JOAQUIN 26MG TAB TAKE 1 TABLET BY MOUTH TWICE A DAY FOR HEART FAILURE ORAL ACTIVE 07/15/2025 [id number] 5 BEATRIZ HAWKINS 2024 180 [facility] SACUBITRIL 24MG/VALSAR JOAQUIN 26MG TAB TAKE 1 TABLET BY MOUTH EVERY DAY FOR HEART FAILURE ORAL DISCONT INUED (EDIT) 05/29/2025 [id number] 5 BEATRIZ HAWKINS 2024 90 [facility] SACUBITRIL 24MG/VALSAR JOAQUIN 26MG TAB TAKE 1 TABLET BY MOUTH EVERY DAY FOR HEART FAILURE ORAL DISCONT INUED 05/19/2025 [id number] 5 BEATRIZ HAWKINS 2024 90 [facility] SUNSCREEN 30-50/PHYSI MIKY BLOCK/PABA- FREE COMBO FACIAL CREAM APPLY TO SUN-EXPO SED SKIN TOPICALL Y EVERY DAY NEEDED SUN PROTECTI ON REAPPLY EVERY 2 HOURS NEEDED TOPICA L ACTIVE 08/25/2025 [id number] 5 ELLEN FLOYD 2024 120 [facility] TAMSULOSIN HCL 0.4MG CAP TAKE ONE CAPSULE BY MOUTH EVERY EVENING FOR PROSTATE ORAL ACTIVE 04/17/2025 [id number] 5 BEATRIZ HAWKINS 2024 90 [facility] TAMSULOSIN HCL 0.4MG CAP TAKE ONE CAPSULE BY MOUTH EVERY EVENING FOR PROSTATE ORAL DISCONT INUED (EDIT) 07/17/2024 [id number] 4 AFRICA CHAUHAN 2023 30 [facility] VANICREAM APPLY THIN LAYER TOPICALL Y EVERY DAY FOR DRY SKIN IDEALLY WITHIN 3 MINUTES AFTER BATH OR SHOWER. TOPICA L ACTIVE 08/25/2025 [id number] 5 ELLEN FLOYD 2024 454 [facility] Allergies, Adverse Reactions, Alerts Combined list of allergies from Department of Defense and Veterans Affairs facilities. It does not include entries that were removed or entered in error. Substance Category Reaction Severity Reaction type Status Date Reported Comments Source LISINOPRIL Propensity to adverse reactions to drug (finding) Cough active 0 [facility] Immunizations Combined list of available immunizations from the Department of Defense and Veterans Affairs facilities. 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 Status Comments Source COVID-19 (PFIZER), MRNA, LNP-S, PF, JAMES-SUCROSE, 30 MCG/0.3 ML (AGES 12+ YEARS) 2024 309 complet ed HISTORICA L INFORMATI ON - FROM OTHER REGISTRY, [facility] INFLUENZA, ADJUVANTED, TRIVALENT, PF 2024 168 complet ed HISTORICA L INFORMATI ON - FROM OTHER REGISTRY, [facility] COVID-19 (Gatheredtable), MRNA, LNP-S, BIVALENT, PF, 30 MCG/0.3 ML DOSE 2022 300 complet ed HISTORICA L INFORMATI ON - FROM OTHER REGISTRY, [facility] COVID-19 (Gatheredtable), MRNA, LNP-S, PF, 30 MCG/0.3 ML DOSE, JAMES-SUCROSE (AGES 12+ YEARS) 2021 217 complet ed HISTORICA L INFORMATI ON - FROM OTHER REGISTRY, [facility] COVID-19 (Gatheredtable), MRNA, LNP-S, PF, 30 MCG/0.3 ML DOSE 2020 208 complet ed HISTORICA L INFORMATI ON - FROM OTHER REGISTRY, [facility] ZOSTER RECOMBINANT 2 2020 187 complet ed [facility] INFLUENZA VACCINE, QUADRIVALENT, ADJUVANTED 2020 205 complet ed HISTORICA L INFORMATI ON - FROM OTHER REGISTRY, [facility] INFLUENZA, UNSPECIFIED FORMULATION 2020 88 complet ed [facility] ZOSTER RECOMBINANT 1 2020 187 complet ed [facility] COVID-19 (Gatheredtable), MRNA, LNP-S, PF, 30 MCG/0.3 ML DOSE 2 2020 208 complet ed [facility] COVID-19 (Gatheredtable), MRNA, LNP-S, PF, 30 MCG/0.3 ML DOSE 1 2020 208 complet ed [facility] INFLUENZA VACCINE, QUADRIVALENT, ADJUVANTED 2019 205 complet ed HISTORICA L INFORMATI ON - FROM OTHER REGISTRY, [facility] INFLUENZA, TRIVALENT, ADJUVANTED 2018 168 complet ed HISTORICA L INFORMATI ON - FROM OTHER REGISTRY, [facility] INFLUENZA, SEASONAL, INJECTABLE 2018 141 complet ed [facility] INFLUENZA, SEASONAL, INJECTABLE 2017 141 complet ed [facility] INFLUENZA, TRIVALENT, ADJUVANTED 2017 168 complet ed HISTORICA L INFORMATI ON - FROM OTHER REGISTRY, [facility] INFLUENZA, HIGH DOSE SEASONAL 2016 135 complet ed [facility] PNEUMOCOCCAL POLYSACCHARID E PPV23 2016 33 complet ed [employer] , [id number], 06/03/18 [facility] TD (ADULT), 2 LF TETANUS TOXOID, PRESERVATIVE FREE, ADSORBED 2016 09 complet ed [employer] [id number], 12/19/18 [facility] INFLUENZA, HIGH DOSE SEASONAL 2016 135 complet ed HISTORICA L INFORMATI ON - FROM OTHER REGISTRY, [facility] PNEUMOCOCCAL POLYSACCHARID E PPV23 2016 33 complet ed HISTORICA L INFORMATI ON - FROM OTHER REGISTRY, [facility] INFLUENZA, HIGH DOSE SEASONAL 2015 135 complet ed [facility] PNEUMOCOCCAL CONJUGATE PCV 13 2015 133 complet ed [employer] [facility] PNEUMOCOCCAL CONJUGATE PCV 13 2014 133 complet ed HISTORICA L INFORMATI ON - FROM OTHER REGISTRY, [facility] INFLUENZA, UNSPECIFIED FORMULATION 2013 88 complet ed [facility] INFLUENZA, UNSPECIFIED FORMULATION 2013 88 complet ed [facility] INFLUENZA, UNSPECIFIED FORMULATION 2011 88 complet ed [facility] INFLUENZA, UNSPECIFIED FORMULATION 2010 88 complet ed [facility] PNEUMOCOCCAL, UNSPECIFIED FORMULATION 2009 109 complet ed [employer],093 02, 011 [facility] TDAP 2009 115 complet ed HISTORICA L INFORMATI ON - FROM OTHER REGISTRY, [facility] ZOSTER LIVE 2008 121 complet ed [facility] TDAP 2007 115 complet ed private [facility] ZOSTER LIVE 2006 121 complet ed HISTORICA L INFORMATI ON - FROM OTHER REGISTRY, [facility] Results Combined list of recent chemistry, hematology and other laboratory results from Department of Defense and Veterans Affairs, ranging from 15 months to all on record, depending upon the facility. Order Name Results Value Reference Range Date Interpretation Specimen Comments Source ALT/SGPT ALANINE AMINOTRANS FERASE [ENZYMATIC ACTIVITY/V OLUME] IN SERUM OR PLASMA 22 U/L <44 - 44 07/14 Specimen Type: PLASMA No comment entered. Ordering Provider: WARREN KENT Report Released Date/Time: Jun 17, 2024 02:13 PM Reporting Lab: [facility] [address] Performing Lab: [facility] [address] [place] [facility] AST/SGOT ASPARTATE AMINOTRANS FERASE [ENZYMATIC ACTIVITY/V OLUME] IN SERUM OR PLASMA 26 U/L 11 - 34 07/14 Specimen Type: PLASMA No comment entered. Ordering Provider: WARREN KENT Report Released Date/Time: Jun 17, 2024 02:13 PM Reporting Lab: [facility] [address] Performing Lab: [facility] [address] [place] [facility] BASIC METABOLI C PANEL+MG CREATININE [MASS/VOLU ME] IN SERUM OR PLASMA 1.1 mg/dL 0.7 - 1.2 07/14 Specimen Type: PLASMA No comment entered. Ordering Provider: TERRENCE CHAUHAN Report Released Date/Time: Jul 17, 2023 04:31 PM Reporting Lab: [facility] [address] Performing Lab: [facility] [address] [place] [facility] BASIC METABOLI C PANEL+MG UREA NITROGEN [MASS/VOLU ME] IN SERUM OR PLASMA 23 mg/dL 8 - 26 07/14 Specimen Type: PLASMA No comment entered. Ordering Provider: TERRENCE CHAUHAN Report Released Date/Time: Jul 17, 2023 04:31 PM Reporting Lab: [facility] [address] Performing Lab: [facility] [address] [place] [facility] BASIC METABOLI C PANEL+MG GLUCOSE [MASS/VOLU ME] IN SERUM OR PLASMA 82 mg/dL 70 - 100 07/14 Specimen Type: PLASMA No comment entered. Ordering Provider: TERRENCE CHAUHAN Report Released Date/Time: Jul 17, 2023 04:31 PM Reporting Lab: [facility] [address] Performing Lab: [facility] [address] [place] [facility] BASIC METABOLI C PANEL+MG SODIUM [MOLES/VOL UME] IN SERUM OR PLASMA 143 mmol/L 136 - 145 07/14 Specimen Type: PLASMA No comment entered. Ordering Provider: TERRENCE CHAUHAN Report Released Date/Time: Jul 17, 2023 04:31 PM Reporting Lab: [facility] [address] Performing Lab: [facility] [address] [place] [facility] BASIC METABOLI C PANEL+MG POTASSIUM [MOLES/VOL UME] IN SERUM OR PLASMA 4.2 mmol/L 3.5 - 5.1 07/14 Specimen Type: PLASMA No comment entered. Ordering Provider: TERRENCE CHAUHAN Report Released Date/Time: Jul 17, 2023 04:31 PM Reporting Lab: [facility] [address] Performing Lab: [facility] [address] [place] [facility] BASIC METABOLI C PANEL+MG CHLORIDE [MOLES/VOL UME] IN SERUM OR PLASMA 108 mmol/L 98 - 107 07/14 H Specimen Type: PLASMA No comment entered. Ordering Provider: TERRENCE CHAUHAN Report Released Date/Time: Jul 17, 2023 04:31 PM Reporting Lab: [facility] [address] Performing Lab: [facility] [address] [place] [facility] BASIC METABOLI C PANEL+MG CARBON DIOXIDE, TOTAL [MOLES/VOL UME] IN SERUM OR PLASMA 22 mmol/L 22 - 29 07/14 Specimen Type: PLASMA No comment entered. Ordering Provider: TERRENCE CHAUHAN Report Released Date/Time: Jul 17, 2023 04:31 PM Reporting Lab: [facility] [address] Performing Lab: [facility] [address] [place] [facility] BASIC METABOLI C PANEL+MG CALCIUM [MASS/VOLU ME] IN SERUM OR PLASMA 9.0 mg/dL 8.4 - 10.2 07/14 Specimen Type: PLASMA No comment entered. Ordering Provider: TERRENCE CHAUHAN Report Released Date/Time: Jul 17, 2023 04:31 PM Reporting Lab: [facility] [address] Performing Lab: [facility] [address] [place] [facility] BASIC METABOLI C PANEL+MG MAGNESIUM [MASS/VOLU ME] IN SERUM OR PLASMA 2.2 mg/dL 1.6 - 2.6 07/14 Specimen Type: PLASMA No comment entered. Ordering Provider: TERRENCE CHAUHAN Report Released Date/Time: Jul 17, 2023 04:31 PM Reporting Lab: [facility] [address] Performing Lab: [facility] [address] [place] [facility] BASIC METABOLI C PANEL+MG ANION GAP IN SERUM OR PLASMA 13 mmol/L 5 - 15 07/14 Specimen Type: PLASMA No comment entered. Ordering Provider: TERRENCE CHAUHAN Report Released Date/Time: Jul 17, 2023 04:31 PM Reporting Lab: [facility] [address] Performing Lab: [facility] [address] [place] [facility] BASIC METABOLI C PANEL+MG GLOMERULAR FILTRATION RATE/1.73 SQ M.PREDICTE D [VOLUME RATE/AREA] IN SERUM, PLASMA OR BLOOD BY CREATININE -BASED FORMULA (CKD-EPI 2020) 68 60 07/14 Specimen Type: PLASMA No comment entered. Ordering Provider: TERRENCE CHAUHAN Report Released Date/Time: Jul 17, 2023 04:31 PM Reporting Lab: [facility] [address] Performing Lab: [facility] [address] [place] [facility] CBC LEUKOCYTES [#/VOLUME] IN BLOOD BY AUTOMATED COUNT 7.6 4.0 - 11.0 07/14 Specimen Type: BLOOD No comment entered. Ordering Provider: TERRENCE CHAUHAN Report Released Date/Time: Jul 17, 2023 04:31 PM Reporting Lab: [facility] [address] Performing Lab: [facility] [address] [place] [facility] CBC ERYTHROCYT ES [#/VOLUME] IN BLOOD BY AUTOMATED COUNT 4.45 4.60 - 6.20 07/14 L Specimen Type: BLOOD No comment entered. Ordering Provider: TERRENCE CHAUHAN Report Released Date/Time: Jul 17, 2023 04:31 PM Reporting Lab: [facility] [address] Performing Lab: [facility] [address] [place] [facility] CBC HEMOGLOBIN [MASS/VOLU ME] IN BLOOD 13.6 g/dL 13.5 - 17.9 07/14 Specimen Type: BLOOD No comment entered. Ordering Provider: TERRENCE CHAUHAN Report Released Date/Time: Jul 17, 2023 04:31 PM Reporting Lab: [facility] [address] Performing Lab: [facility] [address] [place] [facility] CBC HEMATOCRIT [VOLUME FRACTION] OF BLOOD BY AUTOMATED COUNT 43.9 41.0 - 54.0 07/14 Specimen Type: BLOOD No comment entered. Ordering Provider: TERRENCE CHAUHAN Report Released Date/Time: Jul 17, 2023 04:31 PM Reporting Lab: [facility] [address] Performing Lab: [facility] [address] [place] [facility] CBC MCV [ENTITIC VOLUME] BY AUTOMATED COUNT 98.7 fL 80.0 - 100.0 07/14 Specimen Type: BLOOD No comment entered. Ordering Provider: TERRENCE CHAUHAN Report Released Date/Time: Jul 17, 2023 04:31 PM Reporting Lab: [facility] [address] Performing Lab: [facility] [address] [place] [facility] CBC MCH [ENTITIC MASS] BY AUTOMATED COUNT 30.6 pg 27.0 - 33.0 07/14 Specimen Type: BLOOD No comment entered. Ordering Provider: TERRENCE CHAUHAN Report Released Date/Time: Jul 17, 2023 04:31 PM Reporting Lab: [facility] [address] Performing Lab: [facility] [address] [place] [facility] CBC MCHC [MASS/VOLU ME] BY AUTOMATED COUNT 31.0 g/dL 32.0 - 37.5 07/14 L Specimen Type: BLOOD No comment entered. Ordering Provider: TERRENCE CHAUHAN Report Released Date/Time: Jul 17, 2023 04:31 PM Reporting Lab: [facility] [address] Performing Lab: [facility] [address] [facility] IS [facility] CBC PLATELETS [#/VOLUME] IN BLOOD BY AUTOMATED COUNT 134 150 - 400 07/14 L Specimen Type: BLOOD No comment entered. Ordering Provider: TERRENCE CHAUHAN Report Released Date/Time: Jul 17, 2023 04:31 PM Reporting Lab: [facility] [address] Performing Lab: [facility] [address] [facility] CBC PLATELET MEAN VOLUME [ENTITIC VOLUME] IN BLOOD BY AUTOMATED COUNT 10.7 fL 9.1 - 13.0 07/14 Specimen Type: BLOOD No comment entered. Ordering Provider: TERRENCE CHAUHAN Report Released Date/Time: Jul 17, 2023 04:31 PM Reporting Lab: [facility] [address] Performing Lab: [facility] [address] [facility] ERYTHROCYT E DISTRIBUTI ON WIDTH [RATIO] BY AUTOMATED COUNT 17.9 11.5 - 14.5 07/14 H Specimen Type: BLOOD No comment entered. Ordering Provider: TERRENCE CHAUHAN Report Released Date/Time: Jul 17, 2023 04:31 PM Reporting Lab: [facility] [address] Performing Lab: [facility] [address] [facility] CBC PLATELETS RETICULATE D/100 PLATELETS IN BLOOD BY AUTOMATED COUNT 6.3 0 - 10 07/14 Specimen Type: BLOOD No comment entered. Ordering Provider: TERRENCE CHAUHAN Report Released Date/Time: Jul 17, 2023 04:31 PM Reporting Lab: [facility] [id number] Performing Lab: [facility] [id number] [place] [facility] HEMOGLOB IN A1C HEMOGLOBIN A1C/HEMOGL OBIN.TOTAL IN BLOOD 6.2 4.0 - 6.0 07/14 H Specimen Type: BLOOD Comment: Values obtained from [...] Jul 17, 2023 04:31 PM Reporting Lab: [facility] [id number] Performing Lab: [facility] [address] [facility] [place] URINALYS IS COLOR OF URINE COLORLES S 07/16 Specimen Type: URINE No comment entered. Ordering Provider: TERRENCE CHAUHAN Report Released Date/Time: Jul 17, 2023 04:23 PM Reporting Lab: [facility] [address] Performing Lab: [facility] [address] [place] [facility] URINALYS IS SPECIFIC GRAVITY OF URINE 1.006 1.003 - 1.035 07/16 Specimen Type: URINE No comment entered. Ordering Provider: TERRENCE CHAUHAN Report Released Date/Time: Jul 17, 2023 04:23 PM Reporting Lab: [facility] [id number] Performing Lab: [facility] [address] [facility] URIN[facility] IS BILIRUBIN. TOTAL [PRESENCE] IN URINE BY TEST STRIP NEGATIVE 07/16 Specimen Type: URINE No comment entered. Ordering Provider: TERRENCE CHAUHAN Report Released Date/Time: Jul 17, 2023 04:23 PM Reporting Lab: [facility] [address] Performing Lab: [facility] [address] [place] [facility] URINALYS IS KETONES [MASS/VOLU ME] IN URINE BY TEST STRIP NEGATIVE 07/16 Specimen Type: URINE No comment entered. Ordering Provider: TERRENCE CHAUHAN Report Released Date/Time: Jul 17, 2023 04:23 PM Reporting Lab: [facility] [address] Performing Lab: [facility] [address] [place] [facility] URINALYS IS GLUCOSE [MASS/VOLU ME] IN URINE BY TEST STRIP NEGATIVE mg/dL 07/16 Specimen Type: URINE No comment entered. Ordering Provider: TERRENCE CHAUHAN Report Released Date/Time: Jul 17, 2023 04:23 PM Reporting Lab: [facility] [address] Performing Lab: [facility] [address] [place] [facility] URINALYS IS PROTEIN [MASS/VOLU ME] IN URINE BY TEST STRIP NEGATIVE mg/dL 07/16 Specimen Type: URINE No comment entered. Ordering Provider: TERRENCE CHAUHAN Report Released Date/Time: Jul 17, 2023 04:23 PM Reporting Lab: [facility] [address] Performing Lab: [facility] [address] [place] [facility] URINALYS IS PH OF URINE BY TEST STRIP 7.0 5.0 - 8.0 07/16 Specimen Type: URINE No comment entered. Ordering Provider: TERRENEC CHAUHAN Report Released Date/Time: Jul 17, 2023 04:23 PM Reporting Lab: [facility] [address] Performing Lab: [facility] [address] [place] [facility] URINALYS IS LEUKOCYTES [#/AREA] IN URINE SEDIMENT BY MICROSCOPY HIGH POWER FIELD <1/[HPF] 0 - 7 07/16 Specimen Type: URINE No comment entered. Ordering Provider: TERRENCE CHAUHAN Report Released Date/Time: Jul 17, 2023 04:23 PM Reporting Lab: [facility] [address] Performing Lab: [facility] [address] [place] [facility] URINALYS IS BACTERIA [PRESENCE] IN URINE SEDIMENT BY LIGHT MICROSCOPY NONE SEEN 07/16 Specimen Type: URINE No comment entered. Ordering Provider: TERRENCE CHAUHAN Report Released Date/Time: Jul 17, 2023 04:23 PM Reporting Lab: [facility] [address] Performing Lab: [facility] [address] [place] [facility] URINALYS IS ERYTHROCYT ES [#/AREA] IN URINE SEDIMENT BY MICROSCOPY HIGH POWER FIELD <1/[HPF] 0 - 3 07/16 Specimen Type: URINE No comment entered. Ordering Provider: TERRNECE CHAUHAN Report Released Date/Time: Jul 17, 2023 04:23 PM Reporting Lab: [facility] [address] Performing Lab: [facility] [address] [place] [facility] URINALYS IS APPEARANCE OF URINE CLEAR 07/16 Specimen Type: URINE No comment entered. Ordering Provider: TERRENCE CHAUHAN Report Released Date/Time: Jul 17, 2023 04:23 PM Reporting Lab: [facility] [address] Performing Lab: [facility] [address] [place] [facility] URINALYS IS EPITHELIAL CELLS.SQUA MOUS [#/AREA] IN URINE SEDIMENT BY MICROSCOPY HIGH POWER FIELD NONE SEEN/[HP F] 07/16 Specimen Type: URINE No comment entered. Ordering Provider: TERRENCE CHAUHAN Report Released Date/Time: Jul 17, 2023 04:23 PM Reporting Lab: [facility] [address] Performing Lab: [facility] [address] [place] [facility] URINALYS IS HEMOGLOBIN [PRESENCE] IN URINE BY TEST STRIP NEGATIVE 07/16 Specimen Type: URINE No comment entered. Ordering Provider: TERRENCE CHAUHAN Report Released Date/Time: Jul 17, 2023 04:23 PM Reporting Lab: [facility] [address] Performing Lab: [facility] [address] [place] [facility] URINALYS IS NITRITE [PRESENCE] IN URINE BY TEST STRIP NEGATIVE 07/16 Specimen Type: URINE No comment entered. Ordering Provider: TERRENCE CHAUHAN Report Released Date/Time: Jul 17, 2023 04:23 PM Reporting Lab: [facility] [address] Performing Lab: [facility] [address] [place] [facility] URINALYS IS LEUKOCYTE ESTERASE [PRESENCE] IN URINE BY TEST STRIP NEGATIVE 07/16 Specimen Type: URINE No comment entered. Ordering Provider: TERRENCE CHAUHAN Report Released Date/Time: Jul 17, 2023 04:23 PM Reporting Lab: [facility] [address] Performing Lab: [facility] [address] [place] [facility] BASIC METABOLI C PANEL+MG CREATININE [MASS/VOLU ME] IN SERUM OR PLASMA 1.3 mg/dL 0.7 - 1.2 07/16 H Specimen Type: PLASMA No comment entered. Ordering Provider: TERRENCE CHAUHAN Report Released Date/Time: August 07, 2022 02:21 PM Reporting Lab: [facility] [address] Performing Lab: [facility] [address] [place] [facility] BASIC METABOLI C PANEL+MG UREA NITROGEN [MASS/VOLU ME] IN SERUM OR PLASMA 15 mg/dL 8 - 26 07/16 Specimen Type: PLASMA No comment entered. Ordering Provider: TERRENCE CHAUHAN Report Released Date/Time: August 07, 2022 02:21 PM Reporting Lab: [facility] [address] Performing Lab: [facility] [address] [place] [facility] BASIC METABOLI C PANEL+MG GLUCOSE [MASS/VOLU ME] IN SERUM OR PLASMA 84 mg/dL 70 - 100 07/16 Specimen Type: PLASMA No comment entered. Ordering Provider: TERRENCE CHAUHAN Report Released Date/Time: August 07, 2022 02:21 PM Reporting Lab: [facility] [address] Performing Lab: [facility] [address] [place] [facility] BASIC METABOLI C PANEL+MG SODIUM [MOLES/VOL UME] IN SERUM OR PLASMA 137 mmol/L 136 - 145 07/16 Specimen Type: PLASMA No comment entered. Ordering Provider: TERRENCE CHAUHAN Report Released Date/Time: August 07, 2022 02:21 PM Reporting Lab: [facility] [address] Performing Lab: [facility] [address] [place] [facility] BASIC METABOLI C PANEL+MG POTASSIUM [MOLES/VOL UME] IN SERUM OR PLASMA 4.6 mmol/L 3.5 - 5.1 07/16 Specimen Type: PLASMA No comment entered. Ordering Provider: TERRENCE CHAHUAN Report Released Date/Time: August 07, 2022 02:21 PM Reporting Lab: [facility] [address] Performing Lab: [facility] [address] [place] [facility] BASIC METABOLI C PANEL+MG CHLORIDE [MOLES/VOL UME] IN SERUM OR PLASMA 105 mmol/L 98 - 107 07/16 Specimen Type: PLASMA No comment entered. Ordering Provider: TERRENCE CHAUHAN Report Released Date/Time: August 07, 2022 02:21 PM Reporting Lab: [facility] [address] Performing Lab: [facility] [address] [place] [facility] BASIC METABOLI C PANEL+MG CARBON DIOXIDE, TOTAL [MOLES/VOL UME] IN SERUM OR PLASMA 24 mmol/L 22 - 29 07/16 Specimen Type: PLASMA No comment entered. Ordering Provider: TERRENCE CHAUHAN Report Released Date/Time: August 07, 2022 02:21 PM Reporting Lab: [facility] [address] Performing Lab: [facility] [address] [place] [facility] BASIC METABOLI C PANEL+MG CALCIUM [MASS/VOLU ME] IN SERUM OR PLASMA 8.9 mg/dL 8.4 - 10.2 07/16 Specimen Type: PLASMA No comment entered. Ordering Provider: TERRENCE CHAUHAN Report Released Date/Time: August 07, 2022 02:21 PM Reporting Lab: [facility] [address] Performing Lab: [facility] [address] [place] [facility] BASIC METABOLI C PANEL+MG MAGNESIUM [MASS/VOLU ME] IN SERUM OR PLASMA 2.1 mg/dL 1.6 - 2.6 07/16 Specimen Type: PLASMA No comment entered. Ordering Provider: TERRNECE CHAUHAN Report Released Date/Time: August 07, 2022 02:21 PM Reporting Lab: [facility] [address] Performing Lab: [facility] [address] [place] [facility] BASIC METABOLI C PANEL+MG ANION GAP IN SERUM OR PLASMA 8 mmol/L 5 - 15 07/16 Specimen Type: PLASMA No comment entered. Ordering Provider: TERRENCE CHAUHAN Report Released Date/Time: August 07, 2022 02:21 PM Reporting Lab: [facility] [address] Performing Lab: [facility] [address] [place] [facility]IC METABOLI C PANEL+MG GLOMERULAR FILTRATION RATE/1.73 SQ M.PREDICTE D [VOLUME RATE/AREA] IN SERUM, PLASMA OR BLOOD BY CREATININE -BASED FORMULA (CKD-EPI 2020) 56 60 07/16 L Specimen Type: PLASMA No comment entered. Ordering Provider: TERRENCE CHAUHAN Report Released Date/Time: August 07, 2022 02:21 PM Reporting Lab: [facility] [address] Performing Lab: [facility] [address] [place] [facility] CBC LEUKOCYTES [#/VOLUME] IN BLOOD BY AUTOMATED COUNT 8.72 10*3/uL 4.0 - 11.0 07/16 Specimen Type: BLOOD No comment entered. Ordering Provider: TERRENCE CHAUHAN Report Released Date/Time: August 07, 2022 02:21 PM Reporting Lab: [facility] [address] Performing Lab: [facility] [address] [place] [facility] CBC ERYTHROCYT ES [#/VOLUME] IN BLOOD BY AUTOMATED COUNT 4.11 10*6/uL 4.6 - 6.2 07/16 L Specimen Type: BLOOD No comment entered. Ordering Provider: TERRENCE CHAUHAN Report Released Date/Time: August 07, 2022 02:21 PM Reporting Lab: [facility] [address] Performing Lab: [facility] [address] [place] [facility] CBC HEMOGLOBIN [MASS/VOLU ME] IN BLOOD 13.4 g/dL 13.5 - 17.9 07/16 L Specimen Type: BLOOD No comment entered. Ordering Provider: TERRENCE CHAUHAN Report Released Date/Time: August 07, 2022 02:21 PM Reporting Lab: [facility] [address] Performing Lab: [facility] [address] [place] [facility] CBC HEMATOCRIT [VOLUME FRACTION] OF BLOOD BY AUTOMATED COUNT 39.7 41 - 54 07/16 L Specimen Type: BLOOD No comment entered. Ordering Provider: TERRENCE CHAUHAN Report Released Date/Time: August 07, 2022 02:21 PM Reporting Lab: [facility] [address] Performing Lab: [facility] [address] [place] [facility] CBC MCV [ENTITIC VOLUME] BY AUTOMATED COUNT 96.6 fL 80 - 100 07/16 Specimen Type: BLOOD No comment entered. Ordering Provider: TERRENCE CHAUHAN Report Released Date/Time: August 07, 2022 02:21 PM Reporting Lab: [facility] [address] Performing Lab: [facility] [address] [place] [facility] CBC MCH [ENTITIC MASS] BY AUTOMATED COUNT 32.6 pg 27 - 33 07/16 Specimen Type: BLOOD No comment entered. Ordering Provider: TERRENCE CHAUHAN Report Released Date/Time: August 07, 2022 02:21 PM Reporting Lab: [facility] [address] Performing Lab: [facility] [address] [facility] CBC MCHC [MASS/VOLU ME] BY AUTOMATED COUNT 33.8 g/dL 32.0 - 37.5 07/16 Specimen Type: BLOOD No comment entered. Ordering Provider: TERRENCE CHAUHAN Report Released Date/Time: August 07, 2022 02:21 PM Reporting Lab: [facility] [address] Performing Lab: [facility] [address] [facility] PLATELETS [#/VOLUME] IN BLOOD BY AUTOMATED COUNT 159 10*3/uL 150 - 400 07/16 Specimen Type: BLOOD No comment entered. Ordering Provider: TERRENCE CHAUHAN Report Released Date/Time: August 07, 2022 02:21 PM Reporting Lab: [facility] [address] Performing Lab: [facility] [address] [facility] CBC PLATELET MEAN VOLUME [ENTITIC VOLUME] IN BLOOD BY AUTOMATED COUNT 9.6 fL 7.4 - 10.4 07/16 Specimen Type: BLOOD No comment entered. Ordering Provider: TERRENCE CHAUHAN Report Released Date/Time: August 07, 2022 02:21 PM Reporting Lab: [facility] [address] Performing Lab: [facility] [address] [facility] CBC ERYTHROCYT E DISTRIBUTI ON WIDTH [RATIO] BY AUTOMATED COUNT 14.1 11.5 - 14.5 07/16 Specimen Type: BLOOD No comment entered. Ordering Provider: TERRENCE CHAUHAN Report Released Date/Time: August 07, 2022 02:21 PM Reporting Lab: [facility] [address] Performing Lab: [facility] [address] [facility] HEMOGLOB IN A1C HEMOGLOBIN A1C/HEMOGL OBIN.TOTAL [...] Reporting Lab: [facility] [address] Performing Lab: [facility] [address] [place] [facility] LIVER FUNCTION TESTS BILIRUBIN. TOTAL [MASS/VOLU ME] IN SERUM OR PLASMA 0.8 mg/dL 0.2 - 1.2 07/16 Specimen Type: PLASMA No comment entered. Ordering Provider: TERRENCE CHAUHAN Report Released Date/Time: August 07, 2022 02:21 PM Reporting Lab: [facility] [address] Performing Lab: [facility] [address] [place] [facility] LIVER FUNCTION TESTS ALKALINE PHOSPHATAS E [ENZYMATIC ACTIVITY/V OLUME] IN SERUM OR PLASMA 52 U/L 40 - 150 07/16 Specimen Type: PLASMA No comment entered. Ordering Provider: TERRENCE CHAUHAN Report Released Date/Time: August 07, 2022 02:21 PM Reporting Lab: [facility] [address] Performing Lab: [facility] [address] [place] [facility] LIVER FUNCTION TESTS ALANINE AMINOTRANS FERASE [ENZYMATIC ACTIVITY/V OLUME] IN SERUM OR PLASMA 20 U/L <55 - 55 07/16 Specimen Type: PLASMA No comment entered. Ordering Provider: TERRENCE CHAUHAN Report Released Date/Time: August 07, 2022 02:21 PM Reporting Lab: [facility] [address] Performing Lab: [facility] [address] [place] [facility] LIVER FUNCTION TESTS ASPARTATE AMINOTRANS FERASE [ENZYMATIC ACTIVITY/V OLUME] IN SERUM OR PLASMA 19 U/L <34 - 34 07/16 Specimen Type: PLASMA No comment entered. Ordering Provider: TERRENCE CHAUHAN Report Released Date/Time: August 07, 2022 02:21 PM Reporting Lab: [facility] [address] Performing Lab: [facility] [address] [facility] LIVER FUNCTION TESTS GAMMA GLUTAMYL TRANSFERAS E [ENZYMATIC ACTIVITY/V OLUME] IN SERUM OR PLASMA 38 U/L <64 - 64 07/16 Specimen Type: PLASMA No comment entered. 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 Vital Sign Value Date Comments Source SYSTOLIC BLOOD PRESSURE 103 07/14/2024 11:32:21 [facility] DIASTOLIC BLOOD PRESSURE 77 07/14/2024 11:32:21 [facility] PULSE OXIMETRY 98 07/14/2024 [facility]:32:[facility] WEIGHT 192.6 07/14/2024 11:32:21 [facility] BMI 25 kg/m2 07/14/2024 11:32:21 [facility] PAIN 5 07/14/2024 11:32:21 [facility] HEIGHT 74 07/14/2024 11:32:21 [facility] TEMPERATURE 97.7 07/14/2024 11:32:21 [facility] PULSE 55 07/14/2024 11:32:21 [facility] RESPIRATION 18 07/14/2024 11:32:21 [facility] Encounters Combined list of: 1) Encounters from Department of Veterans Affairs facilities going backup to the last 18 months, not all [place] inpatient encounters are included; 2) Encounters from the Department of Defense facilities going backup to 280 months. Location Location Details Encounter Type Encounter Number Reason For Visit Attending Provider ADM Date DC Date Status Disposition Source [facility] OFFICE O/P EST MOD 30 MIN [id number] Diagnos is: ICD-10- CM Z00.01 Encount er for general adult medical exam w shantella Ana Stanton 07[facility]16 [place] [facility] [place] [facility] Outpatient Encounter [id number] 07/17 [place] [facility] [place] [facility] Outpatient Encounter [id number] 04/05 [place] [facility] [place] [facility] Outpatient Encounter [id number] 04/05 [place] [facility] [place] [facility] Outpatient Encounter [id number] [facility] RUSS [facility] [place] [facility] PH1 ASSMT&MGMT NQHP 5-10 [id number] Diagnos is: ICD-10- CM I50.21 Acute systoli c (conges tive) heart failure OLESYA ROGERS 04/15 [place] [facility] [place] [facility] NQHP OL DIG ASSMT&MGMT 5-10 [id number] Diagnos is: ICD-10- CM Z79.01 [facility] (curren t) use of anticoa gulants Fidel WYNN 05/11 [facility] [place] [facility] Out[place] Encounter [id number] 05/12 [place] [facility] [place] [facility] Outpatient Encounter [id number] 05/14 [place] [facility] [place] [facility] Outpatient [facility]counter [id number] 05/18 [place] [facility] [place] [facility] Outpatient Encounter [id number] 06/05 [place] [facility] [place] [facility] Outpatient Encounter [id number] 06/21 [place] [facility] [place] [facility] Outpatient Encounter [id number] KAMI HAWKINS ERT A 07/14 [place] [facility] [place] [facility] OFFICE O/P EST MOD 30 MIN [id number] Diagnos is: ICD-10- CM I48.20 Chronic atrial fibrill ation, unspeci fied KAMI HAWKINS ERT A 07/14 [place] [facility] [place] [facility] Outpatient Encounter [id number] 07/18 [place] [facility] [place] [facility] Outpatient Encounter [id number] 08/11 [place] [facility] [place] [facility] Outpatient Encounter [id number] 08/18 [facility] [place] [facility] OFF[place] O/P EST MOD 30 MIN [id number] Diagnos is: ICD-10- CM L57.0 Actinic keratos is MIKE RAJPUT IN 08/24 [facility] [place] [facility] Outpatient Encounter [id number] 09/01 [place] [facility] [place] [facility] Outpatient Encounter [id number] 09/09 [facility] [place] [facility] Outpatient Encounter [id number] 11/01 [facility] Social History Combined list of available smoking, tobacco, and other social history from Department of Defense and [facility] Affairs facilities. Social History Type Response Date Comment Sourc e Tobacco smoking status NHIS VA-TOBACCO USE FORMER CIGARETTES 07/14/2024 [facility] History of tobacco use ND-TOBACCO NEVER USED OTHER TYPE 07/14/2024 [facility] History of tobacco use VA-TOBACCO FORMER USER 07/17/2023 [facility] History of tobacco use ND-TOBACCO QUIT 1 TO < 5 YRS 08/07/2022 [facility] History of tobacco use VA-TOBACCO FORMER USER 10/16/2020 [facility] History of tobacco use ND-TOBACCO USE MED NO 03/29/2019 [facility] History of tobacco use VA-TOBACCO USER EVERY DAY 8 [facility] History of tobacco use CURRENT TOBACCO USER 02/12/2017 [facility] History of tobacco use CURRENT TOBACCO USER 04/25/2015 [facility] History of tobacco use CURRENT TOBACCO USER 04/21/2014 [facility] History of tobacco use CURRENT TOBACCO USER 04/20/2013 [facility] History of tobacco use CURRENT TOBACCO USER 03/20/2012 [facility] History of tobacco use CURRENT TOBACCO USER 02/06/2011 [facility] History of tobacco use CURRENT TOBACCO USER 01/02/2010 [facility]
--- OUTSIDE RECORDS SUMMARY | 2024-12-06 05:26 | XMS_ITS | Continuity of Care Document ---
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 It does not include entries that were removed or entered in error. Problem Status Onset Date Problem Type Date of Resolution Comments Source CVD - Cerebrovascular Disease ([facility] 20671019) Active 03/19/20 20 Condition May 01, 2020 Entered By: YOAV CHAUHAN Comment: 03/19/20: L MCA CVA, Admit ANW. Cardio-embol ic d/t Warfarin DC [facility] CAD - Coronary Artery Disease ([facility] 30170511) Active 01/27/20 20 Condition Mar 13, 2020 Entered By: YOAV CHAUHAN Comment: 01/27/20: LAD and Dx stented w/SATHYA at [facility]. Plavix +ASA thru 01/26/21 [facility] Peripheral arterial insufficiency Active 01/21/20 20 Condition Mar 13, 2020 Entered By: YOAV CHAUHAN Comment: 01/21/20: L femoral Art occlusion per [facility]-->Fem -Tibial bypass planned [facility] Allergic rhinitis (SNOMED CT 68238192) Active Condition [facility] Atrial fibrillation (SNOMED CT 15238294) Active Condition Apr 26, 2015 Entered By: YOAV CHAUHAN Comment: Warfarin through Miryam Rodriguez [facility] Co-Managed Care Active Condition Dec 25, 2017 Entered By: YOAV CHAUHAN Comment: Dr Garcia, [place], F: [phone] , [facility] COPD - Chronic Obstructive Pulmonary Disease ([facility] 58402843) Active Condition Dec 25, 2017 Entered By: YOAV CHAUHAN Comment: Mometasone & Albuterol MDI's [facility] [place] of toe Active Condition Sep 08, 2019 Entered By: YOAV CHAUHAN Comment: R middle toe [facility] Current smoker Active Condition Apr 082015 Entered By: YOAV CHAUHAN Comment: Cigars, not cigarettes [facility] Essential hypertension (SNOMED CT 73009868) Active Condition [facility] Glucose intolerance Active Condition [facility] Long-term current use of anticoagulant Active Condition [facility] Nocturia due to benign prostatic hypertrophy Active Condition [facility] Health Maintenance (ICD-9-CM V65.9) Inactive Condition 04/26/2015 BELGICA MANCILLA [facility] Diagnosis: ICD-10-CM L57.0 Actinic keratosis Active Diagnosis [facility] Diagnosis: ICD-10-CM I48.20 Chronic atrial fibrillation, unspecified Active Diagnosis [facility] Diagnosis: 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-CM 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 Active Diagnosis [facility] Knox [facility] Diagnosis: ICD-10-CM I50.21 Acute systolic (congestive) heart failure Active Diagnosis [facility] Diagnosis: ICD-10-CM Z00.01 Encounter for general adult medical exam w abnormal findings Active Diagnosis [facility] Medications Combined list of outpatient medications from Department of Defense and [facility] Affairs facilities.Medications provided include 1) outpatient medications [...] OF BREATH RESPIR ATORY (INHAL ATION) 07/17/2024 [id number] 4 AFRICA CHAUHAN [address] [facility] APIXABAN 5MG TAB TAKE ONE TABLET BY MOUTH EVERY 12 HOURS TO PREVENT BLOOD CLOTS AND STROKE (ELIQUIS ) ORAL ACTIVE 05/12/2025 [id number] 5 ROBERTO WYNN [address] [facility] APIXABAN 5MG TAB TAKE ONE TABLET BY MOUTH EVERY 12 HOURS TO PREVENT BLOOD CLOTS AND STROKE (ELIQUIS ) ORAL DISCONT INUED 05/29/2024 [id number] 4 MARIANO GARCIA 2023 180 [facility] CHOLECALCIF JONNA 25MCG (1,000UNIT) TAB TAKE FIVE TABLETS BY MOUTH QOD ORAL ACTIVE AFRICA CHAUHAN [place] 2016 [facility] EMPAGLIFLOZ IN 10MG TAB TAKE ONE TABLET BY MOUTH EVERY MORNING FOR DIABETES ORAL ACTIVE 05/19/2025 [id number] 5 BEATRIZ HAWKINS 2024 90 [facility] FLUTICASONE 250MCG/SALM ETEROL 50MCG INHL,ORAL,D ISKUS,60 INHALE 1 PUFF BY INHALATI ON TWICE A DAY FOR COPD RESPIR ATORY (INHAL ATION) ACTIVE 07/20/2025 [id number] 5 BEATRIZ HAWKINS 2024 3 [place] [facility] [place] [facility] FLUTICASONE 250MCG/SALM ETEROL 50MCG INHL,ORAL,D ISKUS,60 INHALE 1 PUFF BY INHALATI ON TWICE A DAY FOR COPD RESPIR ATORY (INHAL ATION) DISCONT INUED 07/17/2024 [id number] 5 AFRICA CHAUHAN 2023 3 [facility] FUROSEMIDE 20MG TAB TAKE ONE TABLET BY MOUTH EVERY MORNING FOR HEART FAILURE ORAL ACTIVE 08/25/2025 [id number] 5 BEATRIZ HAWKINS 2024 90 [facility] FUROSEMIDE 20MG TAB TAKE ONE TABLET BY MOUTH EVERY MORNING FOR HEART FAILURE ORAL DISCONT INUED 08/19/2025 [id number] 5 BEATRIZ HAWKINS 2024 90 [facility] FUROSEMIDE 20MG TAB TAKE ONE TABLET BY MOUTH THREE TIMES A WEEK FOR HEART FAILURE ORAL DISCONT INUED (EDIT) 05/29/2025 [id number] 5 BEATRIZ HAWKINS 2024 39 [facility] FUROSEMIDE 20MG TAB TAKE ONE TABLET BY MOUTH THREE TIMES A WEEK FOR HEART FAILURE ORAL DISCONT INUED 05/19/2025 [id number] 5 BEATRIZ HAWKINS [address] [facility] FUROSEMIDE 20MG TAB TAKE ONE TABLET BY MOUTH THREE TIMES A WEEK FOR HEART FAILURE ORAL DISCONT INUED 03/18/2025 [id number] 4 BEATRIZ HAWKINS 2023 39 [facility] GABAPENTIN 100MG CAP TAKE ONE CAPSULE BY MOUTH THREE TIMES A DAY NEEDED FOR PAIN AND NUMBNESS ORAL ACTIVE 09/14/2025 [id number] 5 BEATRIZ HAWKINS 2024 270 [facility] GABAPENTIN 100MG CAP TAKE ONE CAPSULE BY MOUTH THREE TIMES A DAY NEEDED FOR PAIN AND NUMBNESS ORAL DISCONT INUED 09/10/2025 [id number] 5 BEATRIZ HAWKINS 2024 90 [facility] LISINOPRIL 2.5MG TAB TAKE ONE TABLET BY MOUTH AT BEDTIME FOR BLOOD PRESSURE ORAL DISCONT INUED BY PROVIDE R 04/17/2025 [id number] 5 BEATRIZ HAWKINS 2024 90 [facility] METOPROLOL SUCCINATE 100MG TAB,SA TAKE ONE TABLET BY MOUTH EVERY DAY FOR BLOOD PRESSURE ORAL ACTIVE 07/15/2025 [id number] 5 BEATRIZ HAWKINS 2024 90 [facility] METOPROLOL SUCCINATE 100MG TAB,SA TAKE ONE TABLET BY MOUTH TWICE A DAY FOR HEART FAILURE ORAL DISCONT INUED 06/24/2025 [id number] 5 BEATRIZ HAWKINS [address] [facility] METOPROLOL TARTRATE 100MG TAB TAKE ONE TABLET BY MOUTH TWICE A DAY FOR BLOOD PRESSURE ORAL DISCONT INUED BY PROVIDE R 05/19/2025 [id number] 5 BEATRIZ HAWKINS 2024 180 [facility] METOPROLOL TARTRATE 100MG TAB TAKE ONE TABLET BY MOUTH TWICE A DAY FOR BLOOD PRESSURE ORAL DISCONT INUED 12/23/2024 [id number] 4 AFRICA CHAUHAN 2023 180 [facility] METOPROLOL TARTRATE 100MG TAB TAKE ONE TABLET BY MOUTH TWICE A DAY FOR BLOOD PRESSURE ORAL DISCONT INUED 12/13/2023 [id number] 4 AFRICA CHAUHAN LATESHA 2022 180 [facility] NIFEDIPINE (EQV-CC) 90MG TAB,SA TAKE ONE TABLET BY MOUTH EVERY DAY FOR BLOOD PRESSURE ORAL DISCONT INUED BY PROVIDE R 07/17/2024 [id number] 4 CHAUHAN AFRICA LATESHA 2023 90 [facility] [place] [facility] OLODATEROL 2.5MCG/TIOT ROPIUM 2.5MCG/ACTU AT INHL,ORAL,6 0D,4GM INHALE 2 PUFFS BY INHALATI ON EVERY DAY FOR COPD RESPIR ATORY (INHAL ATION) ACTIVE 09/17/2025 [id number] 5 BEATRIZ HAWKINS 2024 3 [facility] POTASSIUM CHLORIDE 10MEQ TAB,SA TAKE ONE TABLET BY MOUTH THREE TIMES A WEEK FOR POTASSIU M SUPPLEME NT TAKE WITH FUROSEMI DE ORAL SUSPEND ED 07/03/2025 [id number] 5 BEATRIZ HAWKINS 2024 39 [facility] ROSUVASTATI N CA 20MG TAB TAKE ONE TABLET BY MOUTH AT BEDTIME FOR CORONARY ARTERY DISEASE ORAL ACTIVE 09/08/2025 [id number] 5 BEATRIZ HAWKINS 2024 90 [facility] ROSUVASTATI N CA 20MG TAB TAKE ONE TABLET BY MOUTH AT BEDTIME FOR CORONARY ARTERY DISEASE ORAL 07/17/2024 [id number] 5 AFRICA CHAUHAN 2023 90 [facility] SACUBITRIL 24MG/VALSAR JOAQUIN 26MG TAB TAKE 1 TABLET BY MOUTH TWICE A DAY FOR HEART FAILURE ORAL ACTIVE 07/15/2025 [id number] 5 BEATRIZ HAWKINS 2024 180 [facility] [place] [facility] SACUBITRIL 24MG/VALSAR JOAQUIN 26MG TAB TAKE 1 TABLET BY MOUTH EVERY DAY FOR HEART FAILURE ORAL DISCONT INUED (EDIT) 05/29/2025 [id number] 5 BEATRIZ HAWKINS [address] [facility] SACUBITRIL 24MG/VALSAR JOAQUIN 26MG TAB TAKE 1 TABLET BY MOUTH EVERY DAY FOR HEART FAILURE ORAL DISCONT INUED 05/19/2025 [id number] 5 BEATRIZ HAWKINS [address] [facility] SUNSCREEN 30-50/PHYSI MIKY BLOCK/PABA- FREE COMBO FACIAL CREAM APPLY TO SUN-EXPO SED SKIN TOPICALL Y EVERY DAY NEEDED SUN PROTECTI ON REAPPLY EVERY 2 HOURS NEEDED TOPICA L ACTIVE 08/25/2025 [id number] 5 ELLEN FLOYD [address] [facility] TAMSULOSIN HCL 0.4MG CAP TAKE ONE CAPSULE BY MOUTH EVERY EVENING FOR PROSTATE ORAL ACTIVE 04/17/2025 [id number] 5 BEATRIZ HAWKINS [address] [facility] TAMSULOSIN HCL 0.4MG CAP TAKE ONE CAPSULE BY MOUTH EVERY EVENING FOR PROSTATE ORAL DISCONT INUED (EDIT) 07/17/2024 [id number] 4 AFRICA CHAUHAN [address] [facility] VANICREAM APPLY THIN LAYER TOPICALL Y EVERY DAY FOR DRY SKIN IDEALLY WITHIN 3 MINUTES AFTER BATH OR SHOWER. TOPICA L ACTIVE 08/25/2025 [id number] 5 ELLEN FLOYD [address] [facility] Allergies, Adverse Reactions, Alerts Combined list of allergies from Department of Defense and Veterans Affairs facilities. It does not include entries that were removed or entered in error. Substance Category Reaction Severity Reaction type Status Date Reported Comments Source LISINOPRIL Propensity to adverse reactions to drug (finding) Cough active 0 [facility] Immunizations Combined list of available immunizations from the Department of Defense and Veterans Affairs facilities. 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 INFLUENZA, ADJUVANTED, TRIVALENT, PF 2024 168 complet ed HISTORICA L INFORMATI ON - FROM OTHER REGISTRY, [facility] COVID-19 ([employer]), MRNA, LNP-S, BIVALENT, PF, 30 MCG/0.3 ML DOSE 2022 300 complet ed HISTORICA L INFORMATI ON - FROM OTHER REGISTRY, [facility] COVID-19 ([employer]), MRNA, LNP-S, PF, 30 MCG/0.3 ML DOSE, JAMES-SUCROSE (AGES 12+ YEARS) 2021 217 complet ed HISTORICA L INFORMATI ON - FROM OTHER REGISTRY, [facility] COVID-19 ([employer]), MRNA, LNP-S, PF, 30 MCG/0.3 ML DOSE 2020 208 complet ed HISTORICA L INFORMATI ON - FROM OTHER REGISTRY, [facility] ZOSTER RECOMBINANT [address] [facility] INFLUENZA VACCINE, QUADRIVALENT, ADJUVANTED 2020 205 complet ed HISTORICA L INFORMATI ON - FROM OTHER REGISTRY, [facility] INFLUENZA, UNSPECIFIED FORMULATION [address] [facility] ZOSTER RECOMBINANT 1 [address] [facility] COVID-19 ([employer]), MRNA, LNP-S, PF, 30 MCG/0.3 ML DOSE 2 [address] [facility] COVID-19 ([employer]), MRNA, LNP-S, PF, 30 MCG/0.3 ML DOSE 1 [address] [facility] INFLUENZA VACCINE, QUADRIVALENT, ADJUVANTED 2019 205 complet ed HISTORICA L INFORMATI ON - FROM OTHER REGISTRY, [facility] INFLUENZA, TRIVALENT, ADJUVANTED 2018 168 complet ed HISTORICA L INFORMATI ON - FROM OTHER REGISTRY, [facility] INFLUENZA, SEASONAL, INJECTABLE [address] [facility] INFLUENZA, SEASONAL, INJECTABLE [address] [facility] INFLUENZA, TRIVALENT, ADJUVANTED 2017 168 complet ed HISTORICA L INFORMATI ON - FROM OTHER REGISTRY, [facility] INFLUENZA, HIGH DOSE SEASONAL [address] [facility] PNEUMOCOCCAL POLYSACCHARID E PPV23 2016 33 complet ed [employer] , [id number], 06/03/18 [facility] TD (ADULT), 2 LF TETANUS TOXOID, PRESERVATIVE FREE, ADSORBED 2016 09 complet ed [employer] [id number], 12/19/18 [facility] INFLUENZA, HIGH DOSE SEASONAL 2016 135 complet ed HISTORICA L INFORMATI ON - FROM OTHER REGISTRY, [facility] PNEUMOCOCCAL POLYSACCHARID E PPV23 2016 33 complet ed HISTORICA L INFORMATI ON - FROM OTHER REGISTRY, [facility] INFLUENZA, HIGH DOSE SEASONAL [address] [facility] PNEUMOCOCCAL CONJUGATE PCV 13 2015 133 complet ed [employer] M [facility] PNEUMOCOCCAL CONJUGATE PCV 13 2014 133 complet ed HISTORICA L INFORMATI ON - FROM OTHER REGISTRY, [facility] INFLUENZA, UNSPECIFIED FORMULATION [address] [facility] INFLUENZA, UNSPECIFIED FORMULATION [address] [facility] INFLUENZA, UNSPECIFIED FORMULATION [address] [facility] INFLUENZA, UNSPECIFIED FORMULATION [address] [facility] PNEUMOCOCCAL, UNSPECIFIED FORMULATION 2009 109 complet ed [employer],093 02, 011 [facility] TDAP 2009 115 complet ed HISTORICA L INFORMATI ON - FROM OTHER REGISTRY, [facility] ZOSTER LIVE [address] [facility] TDAP [address] [facility] ZOSTER LIVE 2006 121 complet ed HISTORICA L INFORMATI ON - FROM OTHER REGISTRY, [facility] Results Combined list of recent chemistry, hematology and other laboratory results from Department of Defense and Veterans Affairs, ranging from 15 months to all on record, depending upon the facility. Order Name Results Value Reference Range Date Interpretation Specimen Comments Source AST/SGOT ASPARTATE AMINOTRANS FERASE [ENZYMATIC ACTIVITY/V OLUME] IN SERUM OR PLASMA 26 U/L 11 - 34 07/14 Specimen Type: PLASMA No comment entered. Ordering Provider: WARREN KENT Report Released Date/Time: Jun 17, 2024 02:13 PM Reporting Lab: [facility] [address] Performing Lab: [facility] [address] [place] [facility] ALT/SGPT ALANINE AMINOTRANS FERASE [ENZYMATIC ACTIVITY/V OLUME] IN SERUM OR PLASMA 22 U/L <44 - 44 07/14 Specimen Type: PLASMA No comment entered. Ordering Provider: WARREN KENT Report Released Date/Time: Jun 17, 2024 02:13 PM Reporting Lab: [facility] [address] Performing Lab: [facility] [address] [place] [facility] HEMOGLOB IN A1C HEMOGLOBIN A1C/HEMOGL OBIN.TOTAL [...] Jul 17, 2023 04:31 PM Reporting Lab: [facility] [address] Performing Lab: [facility] [address] [place] [facility] BASIC METABOLI C PANEL+MG CREATININE [MASS/VOLU ME] IN SERUM OR PLASMA 1.1 mg/dL 0.7 - 1.2 07/14 Specimen Type: PLASMA No comment entered. Ordering Provider: TERRENCE CHAUHAN Report Released Date/Time: Jul 17, 2023 04:31 PM Reporting Lab: [facility] [address] Performing Lab: [facility] [address] [place] [facility] BASIC METABOLI C PANEL+MG UREA NITROGEN [MASS/VOLU ME] IN SERUM OR PLASMA 23 mg/dL 8 - 26 07/14 Specimen Type: PLASMA No comment entered. Ordering Provider: TERRENCE CHAUHAN Report Released Date/Time: Jul 17, 2023 04:31 PM Reporting Lab: [facility] [address] Performing Lab: [place] [address] [place] [facility] BASIC METABOLI C PANEL+MG GLUCOSE [MASS/VOLU ME] IN SERUM OR PLASMA 82 mg/dL 70 - 100 07/14 Specimen Type: PLASMA No comment entered. Ordering Provider: TERRENCE CHAUHAN Report Released Date/Time: Jul 17, 2023 04:31 PM Reporting Lab: [place] [id number] Performing Lab: [place] [address] [place] [facility] BASIC METABOLI C PANEL+MG SODIUM [MOLES/VOL UME] IN SERUM OR PLASMA 143 mmol/L 136 - 145 07/14 Specimen Type: PLASMA No comment entered. Ordering Provider: TERRENCE CHAUHAN Report Released Date/Time: Jul 17, 2023 04:31 PM Reporting Lab: [facility] [address] Performing Lab: [place] [address] [place] [facility] BASIC METABOLI C PANEL+MG POTASSIUM [MOLES/VOL UME] IN SERUM OR PLASMA 4.2 mmol/L 3.5 - 5.1 07/14 Specimen Type: PLASMA No comment entered. Ordering Provider: TERRENCE CHAUHAN Report Released Date/Time: Jul 17, 2023 04:31 PM Reporting Lab: [facility] [address] Performing Lab: [facility] [address] [place] [facility] BASIC METABOLI C PANEL+MG CHLORIDE [MOLES/VOL UME] IN SERUM OR PLASMA 108 mmol/L 98 - 107 07/14 H Specimen Type: PLASMA No comment entered. Ordering Provider: TERRENCE CHAUHAN Report Released Date/Time: Jul 17, 2023 04:31 PM Reporting Lab: [facility] [address] Performing Lab: [facility] [address] [place] [facility] BASIC METABOLI C PANEL+MG CARBON DIOXIDE, TOTAL [MOLES/VOL UME] IN SERUM OR PLASMA 22 mmol/L 22 - 29 07/14 Specimen Type: PLASMA No comment entered. Ordering Provider: TERRENCE CHAUHAN Report Released Date/Time: Jul 17, 2023 04:31 PM Reporting Lab: [facility] [address] Performing Lab: [facility] [address] [place] [facility] BASIC METABOLI C PANEL+MG CALCIUM [MASS/VOLU ME] IN SERUM OR PLASMA 9.0 mg/dL 8.4 - 10.2 07/14 Specimen Type: PLASMA No comment entered. Ordering Provider: TERRENCE CHAUHAN Report Released Date/Time: Jul 17, 2023 04:31 PM Reporting Lab: [facility] [address] Performing Lab: [facility] [address] [place] [facility] BASIC METABOLI C PANEL+MG MAGNESIUM [MASS/VOLU ME] IN SERUM OR PLASMA 2.2 mg/dL 1.6 - 2.6 07/14 Specimen Type: PLASMA No comment entered. Ordering Provider: TERRENCE CHAUHAN Report Released Date/Time: Jul 17, 2023 04:31 PM Reporting Lab: [facility] [address] Performing Lab: [facility] [address] [place] [facility] BASIC METABOLI C PANEL+MG ANION GAP IN SERUM OR PLASMA 13 mmol/L 5 - 15 07/14 Specimen Type: PLASMA No comment entered. Ordering Provider: TERRENCE CHAUHAN Report Released Date/Time: Jul 17, 2023 04:31 PM Reporting Lab: [facility] [address] Performing Lab: [facility] [address] [place] [facility] BASIC METABOLI C PANEL+MG GLOMERULAR FILTRATION RATE/1.73 SQ M.PREDICTE D [VOLUME RATE/AREA] IN SERUM, PLASMA OR BLOOD BY CREATININE -BASED FORMULA (CKD-EPI 2020) 68 60 07/14 Specimen Type: PLASMA No comment entered. Ordering Provider: TERRENCE CHAUHAN Report Released Date/Time: Jul 17, 2023 04:31 PM Reporting Lab: [facility] [address] Performing Lab: [facility] [address] [place] [facility] CBC LEUKOCYTES [#/VOLUME] IN BLOOD BY AUTOMATED COUNT 7.6 4.0 - 11.0 07/14 Specimen Type: BLOOD No comment entered. Ordering Provider: TERRENCE CHAUHAN Report Released Date/Time: Jul 17, 2023 04:31 PM Reporting Lab: [facility] [address] Performing Lab: [facility] [address] [place] [facility] CBC ERYTHROCYT ES [#/VOLUME] IN BLOOD BY AUTOMATED COUNT 4.45 4.60 - 6.20 07/14 L Specimen Type: BLOOD No comment entered. Ordering Provider: TERRENCE CHAUHAN Report Released Date/Time: Jul 17, 2023 04:31 PM Reporting Lab: [facility] [address] Performing Lab: [facility] [address] [place] [facility] CBC HEMOGLOBIN [MASS/VOLU ME] IN BLOOD 13.6 g/dL 13.5 - 17.9 07/14 Specimen Type: BLOOD No comment entered. Ordering Provider: TERRENCE CHAUHAN Report Released Date/Time: Jul 17, 2023 04:31 PM Reporting Lab: [facility] [address] Performing Lab: [facility] [address] [place] [facility] CBC HEMATOCRIT [VOLUME FRACTION] OF BLOOD BY AUTOMATED COUNT 43.9 41.0 - 54.0 07/14 Specimen Type: BLOOD No comment entered. Ordering Provider: TERRENCE CHAUHAN Report Released Date/Time: Jul 17, 2023 04:31 PM Reporting Lab: [facility] [address] Performing Lab: [facility] [address] [place] [facility] CBC MCV [ENTITIC VOLUME] BY AUTOMATED COUNT 98.7 fL 80.0 - 100.0 07/14 Specimen Type: BLOOD No comment entered. Ordering Provider: TERRENCE CHAUHAN Report Released Date/Time: Jul 17, 2023 04:31 PM Reporting Lab: [facility] [address] Performing Lab: [facility] [address] [place] [facility] CBC MCH [ENTITIC MASS] BY AUTOMATED COUNT 30.6 pg 27.0 - 33.0 07/14 Specimen Type: BLOOD No comment entered. Ordering Provider: TERRENCE CHAUHAN Report Released Date/Time: Jul 17, 2023 04:31 PM Reporting Lab: [facility] [address] Performing Lab: [facility] [address] [place] [facility] CBC MCHC [MASS/VOLU ME] BY AUTOMATED COUNT 31.0 g/dL 32.0 - 37.5 07/14 L Specimen Type: BLOOD No comment entered. Ordering Provider: TERRENCE CHAUHAN Report Released Date/Time: Jul 17, 2023 04:31 PM Reporting Lab: [facility] [address] Performing Lab: [facility] [address] [place] [facility] CBC PLATELETS [#/VOLUME] IN BLOOD BY AUTOMATED COUNT 134 150 - 400 07/14 L Specimen Type: BLOOD No comment entered. Ordering Provider: TERRENCE CHAUHAN Report Released Date/Time: Jul 17, 2023 04:31 PM Reporting Lab: [facility] [address] Performing Lab: [facility] [address] [place] [facility] CBC PLATELET MEAN VOLUME [ENTITIC VOLUME] IN BLOOD BY AUTOMATED COUNT 10.7 fL 9.1 - 13.0 07/14 Specimen Type: BLOOD No comment entered. Ordering Provider: TERRENCE CHAUHAN Report Released Date/Time: Jul 17, 2023 04:31 PM Reporting Lab: [facility] [address] Performing Lab: [facility] [address] [place] [facility] CBC ERYTHROCYT E DISTRIBUTI ON WIDTH [RATIO] BY AUTOMATED COUNT 17.9 11.5 - 14.5 07/14 H Specimen Type: BLOOD No comment entered. Ordering Provider: TERRENCE CHAUHAN Report Released Date/Time: Jul 17, 2023 04:31 PM Reporting Lab: [facility] [address] Performing Lab: [facility] [address] [place] [facility] CBC PLATELETS RETICULATE D/100 PLATELETS IN BLOOD BY AUTOMATED COUNT 6.3 0 - 10 07/14 Specimen Type: BLOOD No comment entered. Ordering Provider: TERRENCE CHAUHAN Report Released Date/Time: Jul 17, 2023 04:31 PM Reporting Lab: [facility] [id number] Performing Lab: [facility] [address] [facility] URINALYS IS COLOR OF URINE COLORLES S 07/16 Specimen Type: URINE No comment entered. Ordering Provider: TERRENCE CHAUHAN Report Released Date/Time: Jul 17, 2023 04:23 PM Reporting Lab: [facility] [id number] Performing Lab: [facility] [id number] [facility] URINALYS IS SPECIFIC GRAVITY OF URINE 1.006 1.003 - 1.035 07/16 Specimen Type: URINE No comment entered. Ordering Provider: TERRENCE CHAUHAN Report Released Date/Time: Jul 17, 2023 04:23 PM Reporting Lab: [facility] [address] Performing Lab: [facility] [address] [facility] URINALYS IS BILIRUBIN. TOTAL [PRESENCE] IN URINE BY TEST STRIP NEGATIVE 07/16 Specimen Type: URINE No comment entered. Ordering Provider: TERRENCE CHAUHAN Report Released Date/Time: Jul 17, 2023 04:23 PM Reporting Lab: [facility] [address] Performing Lab: [facility] [address] [place] [facility] URINALYS IS KETONES [MASS/VOLU ME] IN URINE BY TEST STRIP NEGATIVE 07/16 Specimen Type: URINE No comment entered. Ordering Provider: TERRENCE CHAUHAN Report Released Date/Time: Jul 17, 2023 04:23 PM Reporting Lab: [facility] [address] Performing Lab: [facility] [address] [place] [facility] URINALYS IS GLUCOSE [MASS/VOLU ME] IN URINE BY TEST STRIP NEGATIVE mg/dL 07/16 Specimen Type: URINE No comment entered. Ordering Provider: TERRENCE CHAUHAN Report Released Date/Time: Jul 17, 2023 04:23 PM Reporting Lab: [facility] [address] Performing Lab: [facility] [address] [place] [facility] URINALYS IS PROTEIN [MASS/VOLU ME] IN URINE BY TEST STRIP NEGATIVE mg/dL 07/16 Specimen Type: URINE No comment entered. Ordering Provider: TERRENCE CHAUHAN Report Released Date/Time: Jul 17, 2023 04:23 PM Reporting Lab: [facility] [address] Performing Lab: [facility] [address] [place] [facility] URINALYS IS PH OF URINE BY TEST STRIP 7.0 5.0 - 8.0 07/16 Specimen Type: URINE No comment entered. Ordering Provider: TERRENCE CHAUHAN Report Released Date/Time: Jul 17, 2023 04:23 PM Reporting Lab: [facility] [address] Performing Lab: [facility] [address] [place] [facility] URINALYS IS LEUKOCYTES [#/AREA] IN URINE SEDIMENT BY MICROSCOPY HIGH POWER FIELD <1/[HPF] 0 - 7 07/16 Specimen Type: URINE No comment entered. Ordering Provider: TERRENCE CHAUHAN Report Released Date/Time: Jul 17, 2023 04:23 PM Reporting Lab: [facility] [address] Performing Lab: [facility] [address] [place] [facility] URINALYS IS BACTERIA [PRESENCE] IN URINE SEDIMENT BY LIGHT MICROSCOPY NONE SEEN 07/16 Specimen Type: URINE No comment entered. Ordering Provider: TERRENCE CHAUHAN Report Released Date/Time: Jul 17, 2023 04:23 PM Reporting Lab: [facility] [address] Performing Lab: [facility] [address] [place] [facility] URINALYS IS ERYTHROCYT ES [#/AREA] IN URINE SEDIMENT BY MICROSCOPY HIGH POWER FIELD <1/[HPF] 0 - 3 07/16 Specimen Type: URINE No comment entered. Ordering Provider: TERRENCE CHAUHAN Report Released Date/Time: Jul 17, 2023 04:23 PM Reporting Lab: [facility] [address] Performing Lab: [facility] [address] [place] [facility] URINALYS IS APPEARANCE OF URINE CLEAR 07/16 Specimen Type: URINE No comment entered. Ordering Provider: TERRENCE CHAUHAN Report Released Date/Time: Jul 17, 2023 04:23 PM Reporting Lab: [facility] [address] Performing Lab: [facility] [address] [place] [facility] URINALYS IS EPITHELIAL CELLS.SQUA MOUS [#/AREA] IN URINE SEDIMENT BY MICROSCOPY HIGH POWER FIELD NONE SEEN/[HP F] 07/16 Specimen Type: URINE No comment entered. Ordering Provider: TERRENCE CHAUHAN Report Released Date/Time: Jul 17, 2023 04:23 PM Reporting Lab: [facility] [address] Performing Lab: [facility] [address] [place] [facility] URINALYS IS HEMOGLOBIN [PRESENCE] IN URINE BY TEST STRIP NEGATIVE 07/16 Specimen Type: URINE No comment entered. Ordering Provider: TERRENCE CHAUHAN Report Released Date/Time: Jul 17, 2023 04:23 PM Reporting Lab: [facility] [address] Performing Lab: [facility] [address] [place] [facility] URINALYS IS NITRITE [PRESENCE] IN URINE BY TEST STRIP NEGATIVE 07/16 Specimen Type: URINE No comment entered. Ordering Provider: TERRENCE CHAUHAN Report Released Date/Time: Jul 17, 2023 04:23 PM Reporting Lab: [facility] [address] Performing Lab: [facility] [address] [place] [facility] URINALYS IS LEUKOCYTE ESTERASE [PRESENCE] IN URINE BY TEST STRIP NEGATIVE 07/16 Specimen Type: URINE No comment entered. Ordering Provider: TERRENCE CHAUHAN Report Released Date/Time: Jul 17, 2023 04:23 PM Reporting Lab: [facility] [address] Performing Lab: [facility] [address] [place] [facility] HEMOGLOB IN A1C HEMOGLOBIN A1C/HEMOGL OBIN.TOTAL [...] August 07, 2022 02:21 PM Reporting Lab: [facility] [address] Performing Lab: [facility] [address] [place] [facility] BASIC METABOLI C PANEL+MG CREATININE [MASS/VOLU ME] IN SERUM OR PLASMA 1.3 mg/dL 0.7 - 1.2 07/16 H Specimen Type: PLASMA No comment entered. Ordering Provider: TERRENCE CHAUHAN Report Released Date/Time: August 07, 2022 02:21 PM Reporting Lab: [facility] [address] Performing Lab: [facility] [address] [place] [facility] BASIC METABOLI C PANEL+MG UREA NITROGEN [MASS/VOLU ME] IN SERUM OR PLASMA 15 mg/dL 8 - 26 07/16 Specimen Type: PLASMA No comment entered. Ordering Provider: TERRENCE CHAUHAN Report Released Date/Time: August 07, 2022 02:21 PM Reporting Lab: [facility] [address] Performing Lab: [facility] [address] [place] [facility] BASIC METABOLI C PANEL+MG GLUCOSE [MASS/VOLU ME] IN SERUM OR PLASMA 84 mg/dL 70 - 100 07/16 Specimen Type: PLASMA No comment entered. Ordering Provider: TERRENCE CHAUHAN Report Released Date/Time: August 07, 2022 02:21 PM Reporting Lab: [facility] [address] Performing Lab: [facility] [address] [place] [facility] BASIC METABOLI C PANEL+MG SODIUM [MOLES/VOL UME] IN SERUM OR PLASMA 137 mmol/L 136 - 145 07/16 Specimen Type: PLASMA No comment entered. Ordering Provider: TERRENCE CHAUHAN Report Released Date/Time: August 07, 2022 02:21 PM Reporting Lab: [facility] [address] Performing Lab: [facility] [address] [place] [facility] BASIC METABOLI C PANEL+MG POTASSIUM [MOLES/VOL UME] IN SERUM OR PLASMA 4.6 mmol/L 3.5 - 5.1 07/16 Specimen Type: PLASMA No comment entered. Ordering Provider: TERRENCE CHAUHAN Report Released Date/Time: August 07, 2022 02:21 PM Reporting Lab: [facility] [address] Performing Lab: [facility] [address] [place] [facility] BASIC METABOLI C PANEL+MG CHLORIDE [MOLES/VOL UME] IN SERUM OR PLASMA 105 mmol/L 98 - 107 07/16 Specimen Type: PLASMA No comment entered. Ordering Provider: TERRENCE CHAUHAN Report Released Date/Time: August 07, 2022 02:21 PM Reporting Lab: [facility] [address] Performing Lab: [facility] [address] [place] [facility] BASIC METABOLI C PANEL+MG CARBON DIOXIDE, TOTAL [MOLES/VOL UME] IN SERUM OR PLASMA 24 mmol/L 22 - 29 07/16 Specimen Type: PLASMA No comment entered. Ordering Provider: TERRENCE CHAUHAN Report Released Date/Time: August 07, 2022 02:21 PM Reporting Lab: [facility] [address] Performing Lab: [facility] [address] [place] [facility] BASIC METABOLI C PANEL+MG CALCIUM [MASS/VOLU ME] IN SERUM OR PLASMA 8.9 mg/dL 8.4 - 10.2 07/16 Specimen Type: PLASMA No comment entered. Ordering Provider: TERRENCE CHAUHAN Report Released Date/Time: August 07, 2022 02:21 PM Reporting Lab: [facility] [address] Performing Lab: [facility] [address] [place] [facility] BASIC METABOLI C PANEL+MG MAGNESIUM [MASS/VOLU ME] IN SERUM OR PLASMA 2.1 mg/dL 1.6 - 2.6 07/16 Specimen Type: PLASMA No comment entered. Ordering Provider: TERRENCE CHAUHAN Report Released Date/Time: August 07, 2022 02:21 PM Reporting Lab: [facility] [address] Performing Lab: [facility] [address] [place] [facility] BASIC METABOLI C PANEL+MG ANION GAP IN SERUM OR PLASMA 8 mmol/L 5 - 15 07/16 Specimen Type: PLASMA No comment entered. Ordering Provider: TERRENCE CHAUHAN Report Released Date/Time: August 07, 2022 02:21 PM Reporting Lab: [facility] [address] Performing Lab: [facility] [address] [place] [facility] BASIC METABOLI C PANEL+MG GLOMERULAR FILTRATION RATE/1.73 SQ M.PREDICTE D [VOLUME RATE/AREA] IN SERUM, PLASMA OR BLOOD BY CREATININE -BASED FORMULA (CKD-EPI 2020) 56 60 07/16 L Specimen Type: PLASMA No comment entered. Ordering Provider: TERRENCE CHAUHAN Report Released Date/Time: August 07, 2022 02:21 PM Reporting Lab: [facility] [address] Performing Lab: [facility] [address] [place] [facility] LIVER FUNCTION TESTS BILIRUBIN. TOTAL [MASS/VOLU ME] IN SERUM OR PLASMA 0.8 mg/dL 0.2 - 1.2 07/16 Specimen Type: PLASMA No comment entered. Ordering Provider: TERRENCE CHAUHAN Report Released Date/Time: August 07, 2022 02:21 PM Reporting Lab: [facility] [address] Performing Lab: [facility] [address] [place] [facility] LIVER FUNCTION TESTS ALKALINE PHOSPHATAS E [ENZYMATIC ACTIVITY/V OLUME] IN SERUM OR PLASMA 52 U/L 40 - 150 07/16 Specimen Type: PLASMA No comment entered. Ordering Provider: TERRENCE CHAUHAN Report Released Date/Time: August 07, 2022 02:21 PM Reporting Lab: [facility] [address] Performing Lab: [facility] [address] [place] [facility] LIVER FUNCTION TESTS ALANINE AMINOTRANS FERASE [ENZYMATIC ACTIVITY/V OLUME] IN SERUM OR PLASMA 20 U/L <55 - 55 07/16 Specimen Type: PLASMA No comment entered. Ordering Provider: TERRENCE CHAUHAN Report Released Date/Time: August 07, 2022 02:21 PM Reporting Lab: [facility] [address] Performing Lab: [facility] [address] [place] [facility] LIVER FUNCTION TESTS ASPARTATE AMINOTRANS FERASE [ENZYMATIC ACTIVITY/V OLUME] IN SERUM OR PLASMA 19 U/L <34 - 34 07/16 Specimen Type: PLASMA No comment entered. Ordering Provider: TERRENCE CHAUHAN Report Released Date/Time: August 07, 2022 02:21 PM Reporting Lab: [facility] [address] Performing Lab: [facility] [address] [place] [facility] LIVER FUNCTION TESTS GAMMA GLUTAMYL TRANSFERAS E [ENZYMATIC ACTIVITY/V OLUME] IN SERUM OR PLASMA 38 U/L <64 - 64 07/16 Specimen Type: PLASMA No comment entered. Ordering Provider: TERRENCE CHAUHAN Report Released Date/Time: August 07, 2022 02:21 PM Reporting Lab: [facility] [address] Performing Lab: [facility] [address] [place] [facility] CBC LEUKOCYTES [#/VOLUME] IN BLOOD BY AUTOMATED COUNT 8.72 10*3/uL 4.0 - 11.0 07/16 Specimen Type: BLOOD No comment entered. Ordering Provider: TERRENCE CHAUHAN Report Released Date/Time: August 07, 2022 02:21 PM Reporting Lab: [facility] [address] Performing Lab: [facility] [address] [place] [facility] CBC ERYTHROCYT ES [#/VOLUME] IN BLOOD BY AUTOMATED COUNT 4.11 10*6/uL 4.6 - 6.2 07/16 L Specimen Type: BLOOD No comment entered. Ordering Provider: TERRENCE CHAUHAN Report Released Date/Time: August 07, 2022 02:21 PM Reporting Lab: [facility] [address] Performing Lab: [facility] [address] [place] [facility] CBC HEMOGLOBIN [MASS/VOLU ME] IN BLOOD 13.4 g/dL 13.5 - 17.9 07/16 L Specimen Type: BLOOD No comment entered. Ordering Provider: TERRENCE CHAUHAN Report Released Date/Time: August 07, 2022 02:21 PM Reporting Lab: [facility] [address] Performing Lab: [facility] [address] [place] [facility] CBC HEMATOCRIT [VOLUME FRACTION] OF BLOOD BY AUTOMATED COUNT 39.7 41 - 54 07/16 L Specimen Type: BLOOD No comment entered. Ordering Provider: TERRENCE CHAUHAN Report Released Date/Time: August 07, 2022 02:21 PM Reporting Lab: [facility] [address] Performing Lab: [facility] [address] [place] [facility] CBC MCV [ENTITIC VOLUME] BY AUTOMATED COUNT 96.6 fL 80 - 100 07/16 Specimen Type: BLOOD No comment entered. Ordering Provider: TERRENCE CHAUHNA Report Released Date/Time: August 07, 2022 02:21 PM Reporting Lab: [facility] [address] Performing Lab: [facility] [address] [place] [facility] CBC MCH [ENTITIC MASS] BY AUTOMATED COUNT 32.6 pg 27 - 33 07/16 Specimen Type: BLOOD No comment entered. Ordering Provider: TERRENCE CHAUHAN Report Released Date/Time: August 07, 2022 02:21 PM Reporting Lab: [facility] [address] Performing Lab: [facility] [address] [place] [facility] CBC MCHC [MASS/VOLU ME] BY AUTOMATED COUNT 33.8 g/dL 32.0 - 37.5 07/16 Specimen Type: BLOOD No comment entered. Ordering Provider: TERRENCE CHAUHAN Report Released Date/Time: August 07, 2022 02:21 PM Reporting Lab: [facility] [address] Performing Lab: [facility] [address] [place] [facility] CBC PLATELETS [#/VOLUME] IN BLOOD BY AUTOMATED COUNT 159 10*3/uL 150 - 400 07/16 Specimen Type: BLOOD No comment entered. Ordering Provider: TERRENCE CHAUHAN Report Released Date/Time: August 07, 2022 02:21 PM Reporting Lab: [facility] [address] Performing Lab: [facility] [address] [place] [facility] CBC PLATELET MEAN VOLUME [ENTITIC VOLUME] IN BLOOD BY AUTOMATED COUNT 9.6 fL 7.4 - 10.4 07/16 Specimen Type: BLOOD No comment entered. Ordering Provider: TERRENCE CHAUHAN Report Released Date/Time: August 07, 2022 02:21 PM Reporting Lab: [facility] [address] Performing Lab: [facility] [address] [facility] CBC ERYTHROCYT E DISTRIBUTI ON WIDTH [RATIO] BY AUTOMATED COUNT 14.1 11.5 - 14.5 07/16 Specimen Type: BLOOD No comment entered. Ordering Provider: TERRENCE CHAUHAN Report Released Date/Time: August 07, 2022 02:21 PM Reporting Lab: [facility] [address] Performing Lab: [facility] [address] [facility] Vital Signs Combined list of inpatient and outpatient Vital Signs from Department of Defense and Veterans Affairs, ranging from 12 months to all on record, depending upon the facility. Vital Sign Value Date Comments Source SYSTOLIC BLOOD PRESSURE 103 07/14/2024 11:32:21 [facility] DIASTOLIC BLOOD PRESSURE 77 07/14/2024 11:32:21 [facility] PULSE OXIMETRY 98 07/14/2024 [facility]32[facility] 192.6 07/14/2024 11:32:21 [facility] BMI 25 kg/m2 07/14/2024 11:32:21 [facility] PAIN 5 07/14/2024 11:32:21 [facility] HEIGHT 74 07/14/2024 11:32:21 [facility] TEMPERATURE 97.7 07/14/2024 [facility] 07/14/2024 11:32:21 [facility] RESPIRATION 18 07/14/2024 11:32:21 [facility] Encounters Combined list of: 1) Encounters from Department of Veterans Affairs facilities going backup to the last 18 months, not all [place] inpatient encounters are included; 2) Encounters from the Department of Defense facilities going backup to 280 months. Location Location Details Encounter Type Encounter Number Reason For Visit Attending Provider ADM Date DC Date Status Disposition Source [facility] OFFICE O/P EST MOD 30 MIN [id number] Diagnos is: ICD-10- CM Z00.01 Encount er for general adult medical exam w shantella Ana Stanton 07[facility] [place] [facility] [place] [facility] Outpatient Encounter [id number] 07/17 [place] [place] [facility] Outpatient Encounter [id number] 04/05 [place] [facility] [place] [facility] Outpatient Encounter [id number] 04/05 [place] [facility] [place] [facility] Outpatient Encounter [id number] [facility] RUSS [facility] [place] [facility] PH1 ASSMT&MGMT NQHP 5-10 [id number] Diagnos is: ICD-10- CM I50.21 Acute systoli c (conges tive) heart failure OLESYA ROGERS 04/15 [place] [facility] [place] [facility] NQHP OL DIG ASSMT&MGMT 5-10 [id number] Diagnos is: ICD-10- CM Z79.01 custodial (curren t) use of anticoa gulants Fidel WYNN 05/11 [facility] [place] [facility] Outpatient Encounter [id number] 05/12 [place] [facility] [place] [facility] Outpatient Encounter [id number] 05/14 [place] [facility] [place] [facility] Outpatient Encounter [id number] 05/18 [place] [facility] [place] [facility] Outpatient Encounter [id number] 06/05 [place] [facility] [place] [facility] Outpatient Encounter [id number] 06/21 [place] [facility] [place] [facility] Outpatient Encounter [id number] KAMI HAWKINS ERT A 07/14 [place] [facility] [place] [facility] OFFICE O/P EST MOD 30 MIN [id number] Diagnos is: ICD-10- CM I48.20 Chronic atrial fibrill ation, unspeci fied KAMI HAWKINS ERT A 07/14 [place] [facility] [place] [facility] Outpatient Encounter [id number] 07/18 [place] [facility] [place] [facility] Outpatient Encounter [id number] 08/11 [place] [facility] [place] [facility] Outpatient Encounter [id number] 08/18 [facility] [place] [facility] OFFICE O/P EST MOD 30 MIN [id number] Diagnos is: ICD-10- CM L57.0 Actinic keratos is MIKE RAJPUT IN 08/24 [facility] [place] [facility] Outpatient Encounter [id number] 09/01 [place] [facility] [place] [facility] Outpatient Encounter [id number] 09/09 [facility] [place] [facility] Outpatient Encounter [id number] 11/01 [facility] Social History Combined list of available smoking, tobacco, and other social history from Department of Defense and [facility] Affairs facilities. Social History Type Response Date Comment Sourc e Tobacco smoking status NHIS VA-TOBACCO USE FORMER CIGARETTES 07/14/2024 [facility] History of tobacco use [place]-TOBACCO NEVER USED OTHER TYPE 07/14/2024 [facility] History of tobacco use VA-TOBACCO FORMER USER 07/17/2023 [facility] History of tobacco use AZ-TOBACCO QUIT 1 TO < 5 YRS 08/07/2022 [facility] History of tobacco use VA-TOBACCO FORMER USER 10/16/2020 [facility] History of tobacco use [place]-TOBACCO USE MED NO 03/29/2019 [facility] History of tobacco use VA-TOBACCO USER EVERY DAY 8 [facility] History of tobacco use CURRENT TOBACCO USER 02/12/2017 [facility] History of tobacco use CURRENT TOBACCO USER 04/25/2015 [facility] History of tobacco use CURRENT TOBACCO USER 04/21/2014 [facility] History of tobacco use CURRENT TOBACCO USER 04/20/2013 [facility] History of tobacco use CURRENT TOBACCO USER 03/20/2012 [facility] History of tobacco use CURRENT TOBACCO USER 02/06/2011 [facility] History of tobacco use CURRENT TOBACCO USER 01/02/2010 [facility]
--- OUTSIDE RECORDS SUMMARY | 2024-12-06 10:28 | XMS_ITS | Clinical Summary ---
Author Organization [facility] Address [address] [place] [address] Care Team Providers Care Pododermatologist Name Role Phone Provider, No Attributed RESOURCE Unavailable Unavailable Social History Tobacco Use Types Packs/Day Years Used Date Smoking Tobacco: Never Assessed Sex and Gender Information Value Date Recorded Sex Assigned at Not on file Legal Sex Male 9:55 AM CDT Gender Identity Not on file Sexual Orientation Not on file Plan of Treatment Not on file Care Teams Pododermatologist Relationship Specialty Start Date End Date Provider, No Attributed, RESOURCE [facility] - Attributed Provider 07/30/18
--- OUTSIDE RECORDS SUMMARY | 2024-12-06 10:28 | XMS_ITS | Clinical Summary ---
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 90 Tablet 3 3 Active apixaban (ELIQUIS) 5 mg tabletIndication s:Permanent atrial fibrillation with rapid ventricular response (HC),Cerebrovasc ular accident (CVA) due to thrombosis of left anterior cerebral artery (HC) Take 1 Tablet (5 mg) by mouth two times daily. 180 Tablet 3 3 Active potassium chloride 10 mEq extended-release tablet (part/cryst)Ofe cations:Chronic diastolic congestive heart failure (HC) Potassium 10 meq on Friday, Friday and Friday. 45 Tablet 3 3 Active Additional Information Patient taking differently: Potassium 10 meq on Friday, Friday and Friday. Taking everyday with Lasix, Reported on 11/01/2024 empagliflozin (JARDIANCE) 10 mg tabletIndication s:Chronic diastolic congestive heart failure (HC) Take 1 Tablet (10 mg) by mouth once daily. 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 180 Tablet 3 5 Active metoprolol succinate (Toprol XL) 100 mg Sustained-Releas e tabletIndication s:Permanent atrial fibrillation (HC),Chronic diastolic congestive heart failure (HC) Take 1 Tablet (100 mg) by mouth once daily. 90 Tablet 3 5 Active tiotropium-oloda teroL 2.5-2.5 mcg/actuation inhalerIndicatio ns:Panlobular emphysema (HC) Inhale 2 Puffs by mouth once daily. 4 g 5 Active furosemide (LASIX) 40 mg tabletIndication s:Chronic diastolic congestive heart failure (HC) Take 1 Tablet (40 mg) by mouth once daily in the morning. 90 Tablet 1 5 Active tamsulosin 0.4 mg capsuleIndicatio ns:BPH with urinary obstruction Take 1 Capsule (0.4 mg) by mouth once daily after a meal. 90 Capsule 1 5 Active Active Problems Problem Noted Date Diagnosed Date Type 2 diabetes mellitus 09/30/2024 Overview (11/01/2024): 07/26/24: A1c 6.6 % 07/26/24: Cr 1.31 mg/dL On meds: empagliflozin Stage 3 chronic kidney disease 07/26/2024 Overview (11/01/2024): 06/21/24: Cr 1.58 mg/dL 06/21/24: GFR 44 mL/min/1.73m2 06/21/24: BUN 21 mg/dL On meds: cholecalciferol, empagliflozin, furosemide, metoprolol succinate, potassium chloride, sacubitril / valsartan AI Summary: As of 08/11/24: The patient had a history of stage 3 chronic kidney disease, with the stage 3a designation added on 07/26/2024. On 07/26/2024, the patient's chronic kidney disease was unspecified as to whether it was stage 3a or 3b. The patient's chronic kidney disease was documented as an active problem on 08/11/2024. 07/26/24: Cr 1.31 mg/dL 07/26/24: GFR 55 mL/min/1.73m2 07/26/24: BUN 27 mg/dL On meds: cholecalciferol, empagliflozin, furosemide, metoprolol succinate, potassium chloride, sacubitril / valsartan Recent encounter dx: 07/26/24: Appointment - [facility] Recent notes: 08/11/24: Progress Notes by DYLAN Munoz ... [+] ? Stage 3a chronic kidney disease (HC) 07/26/2024 07/26/24: Progress Notes - Medicare Wellness Visit by Sera Tatum MD ... [+] ? Stage 3 chronic kidney disease (HC) N18.30 ... [+] Stage 3 chronic kidney disease, unspecified whether stage 3a or 3b CKD (HC) N18.30 Heart failure 05/14/2024 Overview (11/01/2024): AI Summary: As of 06/21/24: The patient has a history of chronic diastolic and systolic congestive heart failure, with multiple hospitalizations for exacerbations, most recently from 04/05/2024 to 04/08/2024. The patient's ejection fraction has ranged from mildly reduced (41-49%) to 55-60% in the past. Management includes Jardiance for heart failure, and furosemide and potassium chloride have been prescribed at various times for symptom management. 04/06/24: LVEF 40 - 45% 06/21/24: BP 100/80 06/21/24: HR 76 /min On meds: furosemide, metoprolol succinate, sacubitril / valsartan Recent encounter dx: 06/21/24: Appointment - [facility] 06/06/24: Support OP Encounter - [facility] 05/24/24: Appointment - [facility] 05/14/24: Appointment - [facility] 05/12/24: Appointment - [facility] Recent studies: 06/21/24: Corresp-Imaging - [facility] ... [+] Known left rib fractures with shortness of breath and history of congestive heart failure 01/21/20: CT CARDIAC CORONARY ARTERIES DUAL READ by Loagn Chandler MD, Miguel Edwards MD, Vitaly Rosenthal MD ... [-] INDICATIONS: Chest discomfort, possibly cardiomyopathy, history of heart failure, evaluate. 12/02/19: ECHO COMPLETE WO CONTRAST by Lowell Espinosa MD, Catrachito Barcenas MD ... [+] Indication for study: Acute on Chronic Systolic CHF Cardiac Rhythm: Atrial fibrillation.Study quality: Fair. Recent notes: 06/21/24: Progress Notes - Office visit by Sera Tatum MD ... [+] Chronic diastolic congestive heart failure (HC) ... [-] Heart failure 06/21/24: Progress Notes - Office visit by Sera Tatum MD ... [+] Acute heart failure with mildly reduced ejection fraction (HFmrEF, 41- 49%) (HC) 06/21/24: Corresp-Clinical Notes - [facility] ... [+] HFrEF (heart failure with reduced ejection fraction) (Acute) ... [+] Unspecified systolic (congestive) heart failure (ICD-10) Acute diastolic congestive heart failure, NYHA class 4 (Acute) ... [+] Acute diastolic (congestive) heart failure (ICD-10) Chronic anticoagulation (Acute) 06/10/24: Progress Notes - Nursing Notes by Donnell Gallardo MD ... [+] ? Acute systolic (congestive) heart failure (HC) I50.21 ... [+] ? Chronic diastolic congestive heart failure (HC) I50.32 ... [+] ? Acute heart failure with mildly reduced ejection fraction (HFmrEF, 41- 49%) (HC) I50.21 05/24/24: Progress Notes - Office visit by Sera [place]le Tatum MD ... [-] Heart failure. AI Summary: As of 08/11/24: The patient has a history of chronic diastolic and systolic congestive heart failure, with multiple hospitalizations for exacerbations, most recently from 04/05/2024 to 04/08/2024. Currently, the patient presents with acute heart failure with mildly reduced ejection fraction (41-49%), managed with Jardiance, and furosemide and potassium chloride as needed for symptom management. The patient also has a history of left rib fractures and shortness of breath; cardiomyopathy was considered in the differential diagnosis. 04/06/24: LVEF 40 - 45% 08/11/24: BP 102/70 08/11/24: HR 88 /min On meds: furosemide, metoprolol succinate, sacubitril / valsartan Recent encounter dx: 08/11/24: Appointment - [facility] 07/26/24: Appointment - [facility] 06/21/24: Appointment - [facility] 06/06/24: Support OP Encounter - [facility] 05/24/24: Appointment - [facility] Recent studies: 06/21/24: Corresp-Imaging - [facility] ... [+] Known left rib fractures with shortness of breath and history of congestive heart failure 01/21/20: CTA FRACTIONAL FLOW RESERVE by Logan Chandler MD, Miguel Edwards MD ... [-] INDICATIONS: Chest discomfort, possibly cardiomyopathy, history of heart failure, evaluate. 12/02/19: ECHO COMPLETE WO CONTRAST by Lowell Espinosa MD, Catrachito Barcenas MD ... [+] Indication for study: Acute on Chronic Systolic CHF Cardiac Rhythm: Atrial fibrillation.Study quality: Fair. Recent notes: 08/11/24: Progress Notes by DYLAN Munoz ... [+] Patient was admitted to [facility] in late March 2024 through early April 2024 for CHF exacerbation. ... [+] Heart failure with mildly reduced ejection fraction (HFmrEF, 41-49%) ... [-] From a heart failure standpoint, we will not increase dose above 10 mg daily as this is the only dose indicated for GDMT. ... [+] Chronic diastolic congestive heart failure (HC) ... [+] ? Heart failure (HC) 05/14/2024 07/26/24: Progress Notes - Medicare Wellness Visit by Sera Tatum MD ... [+] ? Heart failure (HC) I50.9 ... [+] Chronic diastolic congestive heart failure (HC) I50.32 BASIC METABOLIC PANEL ... [+] HFrEF (heart failure with reduced ejection fraction) (HC) I50.20 06/21/24: Progress Notes - Office visit by Sera Tatum MD ... [-] Heart failure 06/21/24: Progress Notes - Office visit by Sera Tatum MD ... 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 [+] ? Acute systolic (congestive) heart failure (HC) I50.21 ... [+] ? Chronic diastolic congestive heart failure (HC) I50.32 ... [+] ? 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 Plavix +ASA thru 01/26/21 Peripheral artery insufficiency 11/08/2019 Overview (04/12/2024): Hx of left femoral- PT bypass 07/18/20 [...] glide device 08/01/20 1. LLE angiogram 2. RECREATION COORDINATOR of [place] peroneal Mar 13, 2020 Entered By: AFRICA CHAUHAN Comment: 01/21/20: L femoral Art occlusion per [facility]-->Fem-Tibial bypass planned Chronic obstructive airway disease 09/09/2018 Overview (11/01/2024): >>OVERVIEW FOR OTHER EMPHYSEMA (HC) WRITTEN ON 04/12/2024 4:28 PM BY SERA TATUM MD Dec 25, 2017 Entered By: AFRICA CHAUHAN Comment: Mometasone & Albuterol REMEDIOS's AI Summary: As of 08/11/24: The patient has a history of panlobular emphysema, first mentioned 10/21/2018, and COPD, mentioned in multiple notes from 08/02/2020 to 08/11/2024. The patient was prescribed Mometasone (ASMANEX TWISTHALER) 220 mcg/ actuation (120) inhaler on 11/06/2022 and 06/12/2022. Other significant comorbidities include peripheral vascular disease, coronary artery disease, and atrial fibrillation. 08/11/24: SpO2 97 % 05/07/25: HR 88 /min On meds: albuterol, fluticasone / salmeterol, fluticasone propionate (external) Recent encounter dx: 05/24/24: Appointment - [facility] 05/12/24: Appointment - [facility] 04/12/24: Appointment - [facility] 12/05/22: Support OP Encounter - [facility] 11/06/22: Appointment - [facility] Recent studies: 01/21/20: CT CARDIAC CORONARY ARTERIES DUAL READ by Logan Chandler MD, Miguel Edwards MD, Vitaly Rosenthal MD ... [+] Mild centrilobular emphysema. Recent notes: 08/11/24: Progress Notes by DYLAN Munoz ... [+] ? Panlobular emphysema (HC) 09/09/2018 ... [+] The condition is mentioned in the context of other significant comorbidities including COPD, peripheral vascular disease, coronary artery disease, and atrial fibrillation. ... [+] [+] Summary: 75 y.o. male with COPD, severe peripheral vascular disease, occluded SFA and disease anterior tibial with claudication and rest pain, pulmonary hypertension, permanent atrial fibrillation on warfarin and coronary artery disease with recent SATHYA to mLAD and dLCx on 01/27/20 as part of preoperative clearance. ... [+] [+] Bola Zurita is a 75 y.o. male with a past medical history of HTN, recent hx tobacco use, CAD with recent SATHYA (LAD and LCx 01/27/20), COPD, severe peripheral vascular disease, pulmonary hypertension, permanent atrial fibrillation now s/p LE revascularization. 07/26/24: Progress Notes - Medicare Wellness Visit by Sera Tatum MD ... [+] ? Panlobular emphysema (HC) J43.1 06/09/24: ED Notes - ED Provider Notes by Anand Jon M.D. (from [facility]) ... [+] Chronic Obstructive Pulmonary Disease (HCC) 05/24/24: Progress Notes - Office visit by Sera Tatum MD ... [+] Panlobular emphysema (HC) 04/12/24: Progress Notes - Nursing Notes by Sera Tatum MD ... [+] Panlobular emphysema (HC) J43.1 Pulmonary hypertension 11/11/2016 Overview (11/01/2024): Noted on 11/04/16 echo AI Summary: As of 06/10/24: The patient has a history of pulmonary hypertension, first noted on echocardiogram 11/11/2016. The condition is mentioned in the context of other significant comorbidities including COPD, peripheral vascular disease, coronary artery disease, and atrial fibrillation. The patient underwent lower extremity revascularization on 02/03/2020, and a cardiac catheterization with possible PCI on 01/27/2020. 06/21/24: BP 100/80 07/17/23: A1c 6.0 1 On meds: apixaban, furosemide, metoprolol succinate, rosuvastatin, sacubitril / valsartan Recent encounter dx: 06/21/24: Appointment - [facility] 05/24/24: Appointment - [facility] 05/12/24: Appointment - [facility] 12/23/17: Appointment - [facility] 11/11/16: Appointment - [facility] Recent notes: 06/21/24: Progress Notes - Office visit by Sera Tatum MD ... [+] Pulmonary hypertension (HC) 06/10/24: Progress Notes - Nursing Notes by Donnell Gallardo MD ... [+] ? Pulmonary hypertension (HC) I27.20 05/14/24: Progress Notes by Abel Boykin MD ... [+] ? Pulmonary hypertension (HC) 11/11/2016 02/13/20: Progress Notes - Cardiology Progress Note by Milla Mcintosh MD ... [+] Summary: 75 y.o. male with COPD, severe peripheral vascular disease, occluded SFA and disease anterior tibial with claudication and rest pain, pulmonary hypertension, permanent atrial fibrillation on warfarin and coronary artery disease with recent SATHYA to mLAD and dLCx on 01/27/20 as part of preoperative clearance. 02/13/20: Progress Notes - [facility] HOSPITALIST SERVICE -- DAILY PROGRESS NOTE by Carolina Ramires MD ... [+] Bola Zurita is a 75 y.o. male with a past medical history of HTN, recent hx tobacco use, CAD with recent SATHYA (LAD and LCx 01/27/20), COPD, severe peripheral vascular disease, pulmonary hypertension, permanent atrial fibrillation now s/p LE revascularization. AI Summary: As of 08/11/24: The patient has a history of pulmonary hypertension, first noted on echocardiogram 11/11/2016. The condition was mentioned in multiple progress notes and assessments from 05/14/24 to 08/11/2024. Associated conditions mentioned include COPD, peripheral vascular disease, coronary artery disease, atrial fibrillation, and hypertension; the patient underwent LE revascularization on 02/03/2020. 08/11/24: BP 102/70 07/26/24: A1c 6.6 % On meds: apixaban, furosemide, metoprolol succinate, rosuvastatin, sacubitril / valsartan Recent encounter dx: 07/26/24: Appointment - [facility] 06/21/24: Appointment - [facility] 05/24/24: Appointment - [facility] 05/12/24: Appointment - [facility] 12/23/17: Appointment - [facility] Recent notes: 08/11/24: Progress Notes by DYLAN Munoz ... [+] ? Pulmonary hypertension (HC) 11/11/2016 ... [+] [+] Bola Zurita is a 75 y.o. male with a past medical history of HTN, recent hx tobacco use, CAD with recent SATHYA (LAD and LCx 01/27/20), COPD, severe peripheral vascular disease, pulmonary hypertension, permanent atrial fibrillation now s/p LE revascularization. ... [+] AI Summary: As of 06/10/24: The patient has a history of pulmonary hypertension, first noted on echocardiogram 11/11/2016. ... [+] [+] Pulmonary hypertension (HC) 06/10/24: Progress Notes - Nursing Notes by Donnell Gallardo MD ... ... [+] [+] ? Pulmonary hypertension (HC) I27.20 05/14/24: Progress Notes by Abel Boykin MD ... 07/26/24: Progress Notes - Medicare Wellness Visit by Sera Tatum MD ... [+] ? Pulmonary hypertension (HC) I27.20 ... [+] Pulmonary hypertension (HC) I27.20 06/21/24: Progress Notes - Office visit by Sera Tatum MD ... [+] Pulmonary hypertension (HC) 02/13/20: Progress Notes - Cardiology Progress Note by Milla Mcintosh MD ... [+] Summary: 75 y.o. male with COPD, severe peripheral vascular disease, occluded SFA and disease anterior tibial with claudication and rest pain, pulmonary hypertension, permanent atrial fibrillation on warfarin and coronary artery disease with recent SATHYA to mLAD and dLCx on 01/27/20 as part of preoperative clearance. 02/13/20: Progress Notes - [facility] HOSPITALIST SERVICE -- DAILY PROGRESS NOTE by Carolina Ramires MD ... [+] Bola Zurita is a 75 y.o. male with a past medical history of HTN, recent hx tobacco use, CAD with recent SATHYA (LAD and LCx 01/27/20), COPD, severe peripheral vascular disease, pulmonary hypertension, permanent atrial fibrillation now s/p LE revascularization. Acquired hallux valgus 09/14/2015 Overview (04/12/2024): Acquired hallux malleus; Original Code: [id number] Original Codesystem: SNOMED CT Classification: Medical Confirmation Status: Confirmed Acquired hallux valgus; Original Code: [id number] Original Codesystem: SNOMED CT Classification: Medical Confirmation Status: Confirmed Acquired hallux valgus; Original Code: [id number] Original Codesystem: SNOMED CT Classification: Medical Confirmation Status: Confirmed Primary hypertension 09/14/2015 Overview (04/12/2024): Hypertensive disorder; Original Code: [id number] Original Codesystem: SNOMED CT Classification: Medical Confirmation Status: Confirmed Vitamin D deficiency 03/27/2015 Benign neoplasm of colon 12/15/2006 Overview (04/12/2024): Colonoscopy 03/2017 polyp repeat in 5 years Colonoscopy 11/2022 multiple TA, repeat in 3 years >>OVERVIEW FOR ADENOMATOUS COLON POLYP WRITTEN ON 03/05/2012 3:47 PM BY CHAITANYA MARCELO MD Colonoscopy 02/2012 polyps repeat in 5 years Impotence of organic origin 10/31/2006 BPH (benign prostatic hyperplasia) 10/31/2006 Permanent atrial fibrillation 08/07/2006 Overview (04/12/2024): Apr 26, 2015 Entered By: AFRICA CHAUHAN Comment: Warfarin through [facility] Resolved Problems Problem Noted Date Diagnosed Date Resolved Date Prediabetes 07/26/2024 11/01/2024 Nocturia associated with daily ign prostatic hyperplasia 04/12/2024 04/12/2024 Postoperative wound infection 04/12/2024 04/12/2024 Current smoker 04/12/2024 04/12/2024 Overview (04/12/2024): Apr 26, 2015 Entered By: AFRICA CHAUHAN Comment: Cigars, not cigarettes Chronic diastolic congestive heart failure 08/01/2020 07/26/2024 Anticoagulation monitoring, DOAC 06/02/2020 09/09/2022 Surgical wound, non healing 05/26/2020 04/12/2024 Open wound of right great toe 05/26/2020 04/12/2024 Concern about stroke without diagnosis 03/19/2020 03/20/2020 Cerebrovascular disease 03/19/2020 04/04/2024 Overview (04/12/2024): May 01, 2020 Entered By: AFRICA CHAUHAN Comment: 03/19/20: L MCA CVA, Admit ANW. Cardio-embolic d/t Warfarin DC Acute systolic (congestive) heart failure 09/09/2018 07/26/2024 Tobacco user 09/14/2015 04/12/2024 Overview (04/12/2024): Tobacco user; Original Code: [id number] Original Codesystem: SNOMED CT Classification: Medical Confirmation Status: Probable Cardiomyopathy 03/21/2015 07/26/2024 Overview (11/11/2016): EF 45-50% on 11/04/16 echo Anticoagulation monitoring, INR range 2-3 02/21/2014 06/02/2020 Pulmonary nodules 04/24/2009 05/24/2024 Overview (04/12/2024): Several small pulmonary nodules noted CT scan 2019. Radiologist recommended option for repeat 12-month CT scan Secondary cardiomyopathy, unspecified 10/31/2006 03/21/2015 Tobacco use disorder 10/31/2006 025 Impaired fasting glucose Hyponatremia 04/13/2024 Wound, surgical, infected Encounters Date Type Department Care Team Description 11/01/2024 1:00 PM CDT Office Visit [address] [address] Sera Tatum MD Wound Check (RT knee 4 months- red tender to touch ); Follow Up (Things are getting better with breathing ) 11/01/2024 Travel 10/21/2024 E-Visit [address] [address] [facility]/05/[facility] E-Visit [address] [phone] Sera Tatum MD Message about your results 09/29/2024 2:00 PM CDT Ancillary Procedure [address] [id number] 09/29/2024 1:00 PM CDT Office Visit [address] [address] Sera Tatum MD Medication Management (Follow up Metoprolol, SOB ) 09/29/2024 Travel 09/06/[address] [address] Sera Tatum MD Medication Management from Last 3 Months Immunizations Immunization Administration Dates Next Due AMB INFLUENZA IIV3 (AGE 65+ YRS) PF (Flu Clinic Only) 02/24/2019 COVID-19 vaccine ([employer] 30mcg/0.3mL) 12YO+ JAMES-SUCROSE PF, MDV 08/24/2021 COVID-19 vaccine ([employer] 30mcg/0.3mL) PF, MDV 06/17/2020,05/27/2020 Influenza Virus, Unspecified 12/29/2020, 01/05/2018,02/12/2017,2015,02/07/2014,04/20/2013,03/20/2012,1 04/08/2010 Influenza, High-dose Inactivated 04/09/2016 Influenza, IIV3 (Age >=3 years) 02/05/2019 Influenza, Inactivated AIIV4 (Age 65+ Years) Preserv Free 12/29/2020,01/06/2020 Influenza, Inactivated IIV3 (Age 65+ Years) Preserv Free 06/05/2024,12/23/2017 Pneumococcal Poly,23-Valent (Pneumovax) 02/12/2017,04/09/2016,12/14/1997 Pneumococcal conj 13-Valent [...] 02/08/2020, 01/28/2020 Alcohol Use Standard Drinks/Week Comments Yes 30 (1 standard drink = 0.6 oz pu re alcohol) 2-3/day PHQ-2 Answer Date Recorded PHQ-2 TOTAL SCORE 0 07/26/2024 Social Connections Answer Date Recorded Do you often feel lonely or isolated from those around you? 0 09/01/2024 Alcohol Use Answer Date Recorded How often do you have a drink containing alcohol ? 4 11/06/2022 How many drinks containing a lcohol do you have on a typical day when you are drinking? 1 11/06/2022 How often do you have five or more drinks on one occasion? 2 11/06/2022 Financial Resource Strain Answer Date R ecorded Difficulty of Paying Living Expenses 3 09/01/2024 Difficulty of Paying Living Expenses Not on file 09/01/2024 Food Insecurity Answer Date Recorded Do you worry your food will run out before you are able to buy more? 1 09/01/2024 Transportation Needs Answer Date Record ed Does lack of transportation keep you from medica l appointments? 1 09/01/2024 Does lack of transportation keep you from work, meetings or getting things that you need? 1 09/01/2024 Housing Stability Answer Date Recorded What is your housing situation today? 1 09/01/2024 Utilities Answer Date Recorded Do you have trouble paying f or utilities (for example, heat, electricity, water, phone)? 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 Oxygen Saturation 98% 11/01/2024 1:12 PM CDT Inhaled Oxygen Concentration - - Weight 89 kg (196 lb 3.2 oz) 11/01/2024 1:12 PM CDT Height 190.5 cm (6' 3) 08/11/2024 10:55 AM CDT Body Mass Index 24.52 08/11/2024 10:55 AM CDT Plan of Treatment Upcoming Encounters Date Type Department Care Team (Late st Contact Info) Description 01/03/2025 1:00 PM CDT Office Visit [facility] [address] [place] [address] Sera Tatum MD [address] [place] [address] 01/12/2025 1:00 PM CDT Appointment [facility] [address] [place] [address] 01/26/2025 3:30 PM CDT Office Visit [facility] [place] [address] [facility] [place] [address] [place] [address] Abel Boykin MD [address] [facility] [address] [place] [address] Health Maintenance Due Date Last Done Comments Low Dose CT (for lung CA) age 50-80 08/30/2011 08/29/2010 RSV vaccine for adults or (1 - 1-dose 75+ series) 01/14/2020 COVID-19 vaccine series ( season) 2024 06/05/2024, 04/24/2022, 08/24/2021, Additional history exists Influenza Vaccine (#1) 2024 , 12/29/2020, 12/29/2020, Additional history exists Depression screening for age 12+ 07/26/2025 07/26/2024, 11/08/2022, 11/06/2022, Additional history exists Medicare Wellness for age 65+ 07/27/2025 07/26/2024, 11/06/2022, 05/16/2021, Additional history exists BMI (ht and wt on same day) for age 18+ 08/11/2025 08/11/2024, 07/26/2024, 06/10/2024, Additional history exists Tetanus booster 02/12/2027 02/12/2017, 04/07, 04/07/2007 Pneumococcal series for age 50+ Completed 02/12/2017, 04/09/2016, 04/25/2015, Additional history exists Zoster (shingles) series for age 50+ Completed 01/18/2021, 10/16/2020, 04/07/2008, Additional history exists Hepatitis C screening for age 18-79 Completed 05/16/2021 Hepatitis B series for 19+ Aged Out N o longer eligible based on patient's age to complete this topic Procedures Procedure Name Priority Date/Time Associated Diagnosis Comments BASIC METABOLIC PANEL Routine 11/01/2024 3:02 PM CDT Chronic diastolic congestive heart failure (HC) URINE ALBUMIN TO CREATININE RATIO, RANDOM Routine 11/01/2024 2:28 PM CDT Type 2 diabetes mellitus without complication, without long-term current use of insulin (HC) HEMOGLOBIN A1C Routine 09/29/2024 3:13 PM CDT Elevated blood sugar BASIC METABOLIC PANEL Routine 09/29/2024 3:13 PM CDT SOB (shortness of breath) XR CHEST 2 VIEWS PA AND LATERAL Routine 09/29/2024 1:58 PM CDT SOB (shortness of breath) ANTI HCV Routine 05/16/2021 3:20 PM PRODUCTION SHIFT SUPERVISOR Need for hepatitis C screening test CT CHEST WO Routine 08/29/2010 4:53 PM CDT Pulmonary nodules from Last 3 Months or Most Recently Relevant to Health Maintenance Results * (ABNORMAL) BASIC METABOLIC PANEL (11/01/2024 3:02 PM CDT) Only the most recent of2 resultswithin the time period is included. GLUCOSE 114(H) 65 - 99 mg/dL [facility] Comment: Fasting reference interval For someone without known diabetes, a glucose value between 100 and 125 mg/dL is consistent with prediabetes and should be confirmed with a follow-up test. UREA NITROGEN (BUN) 26(H) 7 - 25 mg/dL [facility] CREATININE 1.41(H) 0.70 - 1.28 mg/dL [facility] EGFR 51(L) > OR = 60 mL/min/1.7 3m2 [facility] BUN/CREATININE RATIO 18 6 - 22 (calc) [facility] SODIUM 137 135 - 146 mmol/L [facility] POTASSIUM 4.8 3.5 - 5.3 mmol/L [facility] CHLORIDE 101 98 - 110 mmol/L [facility] CARBON DIOXIDE 26 20 - 32 mmol/L [facility] ELECTROLYTE BALANCE 10 7 - 17 mmol/L (calc) [facility] CALCIUM 8.8 8.6 - 10.3 mg/dL [facility] Blood BLOOD SPECIMEN / Unknown 11/01/2024 3:02 PM CDT 11/01/2024 3:02 PM CDT Sera Tatum MD CHEMISTRY Final Result [facility] [address] [place] [address], [facility] [address] * (ABNORMAL) URINE ALBUMIN TO CREATININE RATIO, RANDOM (11/01/2024 2:28 PM CDT) ALB RAND URINE 15.9 mg/L 11/01/2024 11:28 PM CDT [facility] CREATININE,URIN E 0.43 g/L 11/01/2024 11:28 PM CDT [facility] ALBUMIN TO CREATININE RATIO,RAND UR 37.0(H) <30.0 mg/g creat 11/01/2024 11:28 PM CDT [facility] Urine URINE SPECIMEN / Unknown Non-Blood / Unknown 11/01/2024 2:28 PM CDT 11/01/2024 2:28 PM CDT Health system LAB[facility]ATORY-[facility] - 11/01/2024 11:28 PM CDT If Albumin to Creatinine Ratio is elevated, consider the following: Elevations seen with incipient nephropathy associated with diabetes mellitus or hypertension. Stress, exercise,hematuria, and urinary tract infection may also produce elevated results. If clinically indicated, confirm with 24 Hour Albumin to Creatinine Ratio. Sera Tatum MD URINE Final Result Performing Organization Address City/[facility]/ZIP Co de Phone Number [facility] [address] [place] [address], [place] * (ABNORMAL) HEMOGLOBIN A1C (09/29/2024 3:13 PM CDT) HEMOGLOBIN A1C 6.6(H) <5.7 % [facility] Comment: For someone without known diabetes, a hemoglobin A1c value of 6.5% or greater indicates that they may have diabetes and this should be confirmed with a follow-up test. For someone with known diabetes, a value <7% indicates that their diabetes is well controlled and a value greater than or equal to 7% indicates suboptimal control. A1c targets should be individualized based on duration of diabetes, age, comorbid conditions, and other considerations. Currently, no consensus exists regarding use of hemoglobin A1c for diagnosis of diabetes for children. Blood BLOOD SPECIMEN / Unknown 09/29/2024 3:13 PM CDT 09/29/2024 3:14 PM CDT Sera Tatum MD CHEMISTRY Final Result Performing Organization Address City/[facility]/ZIP Co de Phone Number [facility] [address] [place] [address], [place] [phone] [facility] [address] [place] [address] * XR CHEST 2 VIEWS PA AND LATERAL (09/29/2024 1:58 PM CDT) Anatomical Region Laterality Modality CHEST, THORAX, Lung, HEART Compu ant Radiography 09/29/2024 3:32 PM CDT Impressions 09/29/2024 3:32 PM CDT Increased posterior bibasilar densities suggesting aspiration pneumonitis. Small pleural effusions noted. Dictated by Vitaly Garcia MD @ 09/29/2024 3:32:57 PM (Electronically Signed) Narrative 09/29/2024 3:32 PM CDT For Patients: As a result of the Cures Act, medical imaging exams and procedure reports are released immediately into your electronic medical record. You may view this report before your referring provider. If you have questions, please contact your health care provider. INDICATION: SOB (shortness of breath) TECHNIQUE: Chest 2 views COMPARISON: 05/12/2024 FINDINGS: Increased posterior basilar densities compared to the prior study with small bilateral pleural effusions. Increased thoracic kyphosis, chronic. Cardiomegaly. No pneumothorax. Procedure Note Vitaly Garcia MD - 09/29/2024 For Patients: As a result of the Cures Act, medical imagingexams and procedure reports are released immediately into your electronicmedical record. You may view this report before your referring provider.If you have questions, please contact your health care provider. INDICATION: SOB (shortness of breath) TECHNIQUE: Chest 2 views COMPARISON: 05/12/2024 FINDINGS: Increased posterior basilar densities compared to the prior study withsmall bilateral pleural effusions. Increased thoracic kyphosis, chronic.Cardiomegaly. No pneumothorax. IMPRESSION: Increased posterior bibasilar densities suggesting aspiration pneumonitis.Small pleural effusions noted. Dictated by Vitaly Garcia MD @ 09/29/2024 3:32:57 PM (Electronically Signed) Sera Tatum MD GENERAL IMAGING Final Result * ANTI HCV (05/16/2021 3:20 PM PRODUCTION SHIFT SUPERVISOR) HEPATITIS C ANTIBODY Non-React edelmira Non-React edelmira 05/17/2021 1:21 AM PRODUCTION SHIFT SUPERVISOR [facility] Comment:Antibodies to HCV no t detected; does not exclude the possibility of exposure to HCV. Blood BLOOD SPECIMEN / Unknown Venipuncture / Unknown 05/16/2021 3:20 PM PRODUCTION SHIFT SUPERVISOR 05/16/2021 3:25 PM PRODUCTION SHIFT SUPERVISOR us Zak Garcia MD SEND OUTS Final Re sult [facility] [address] [place] [address], [place] * CT CHEST WO CONTRAST (08/29/2010 4:53 PM CDT) Anatomical Region Laterality Modality CHEST, THORAX, HEART Computed To mography Impressions 08/30/2010 2:43 PM CDT 1. The previously-seen pulmonary nodules have resolved. 2. The infiltrate at the left lung base has also resolved. 3. No masses, nodules or significant mediastinal lymphadenopathy is identified. 4. There is some scattered fibrosis seen, particularly in the right middle lobe, but the previous infiltrates have resolved. 5. Incidental note is made of a stable diverticulum off there stomach and a probable 3.8-cm cyst off the right kidney on image #153 of series #2. Narrative 08/30/2010 2:[address] CHEST WITHOUT CONTRAST CLINICAL HISTORY: Follow up pulmonary nodule. TECHNIQUE: The chest was scanned from the apices through the lung bases without contrast. COMPARISON: Prior CT of the chest of 09/27/08. FINDINGS: The previously-seen nodule in the right upper lobe appears to have resolved. The nodule in the right lung seen previously near the oblique fissure in the right lower lobe has also resolved and the 3 to 4-mm nodule in the right upper lobe on image #67 is also not seen with certainty. Lungs are now clear. No masses or nodules are identified. There is some fibrosis seen in the region of the right middle lobe on image #79 of series #3, and there are some scattered emphysematous changes noted. The moderate-sized area of atelectasis or consolidation involving the basilar portion of the left lower lobe has resolved. Procedure Note Naman Lenz MD - 08/30/2010 [...] of series #2. Zak Garcia MD CT Final Re sult from Last 3 Months or Most Recently Relevant to Health Maintenance Insurance BLUE CROSS WAINWRIGHT BLUE MR PB ONLY BLUE CROSS WAINWRIGHT BLUE HB ONLY MEDICARE PART B HB ONLY MEDICARE PART A HB ONLY [facility] Advance Directives * Full Code (Latest Code [...] Comments Code Status Discussion: Discussed Care Teams Hollow Tile Partition Erector Relationship Specialty Start Date End Date Sera Tatum MD [address] [place] [address] PCP - General Family Practice 04/12/24
--- OUTSIDE RECORDS SUMMARY | 2024-12-06 10:28 | XMS_ITS | Clinical Summary ---
Author Organization [facility] Address [address] [place] [address] Care Team Providers Care Rotary Dump Operator Name Role Phone Elsewhere, Pcp Primary Care Provider Unavailabl e Source Comments Patient records contain information from all sites at [facility]. For routine questions regarding patient records, call [phone] during business hours, M-F 8:00 AM - 5:00 PM Central Time. Record requests for emergency care only can be directed to [phone] at any time.[facility] Allergies No known active allergies Medications apixaban (Eliquis) 5 mg tablet Take 5 mg by mouth 2 (two) times a day. Active metoprolol tartrate (Lopressor) 100 mg tablet Take 100 mg by mouth daily. Active fluticasone propionate (Flovent Diskus) 50 mcg/actuation diskus inhaler Inhale 1 puff 2 (two) times a day. Rinse mouth with water after use to reduce aftertaste and incidence of candidiasis. Do not swallow. Active Research IRB [id number] sacubitril-vals luli 24 mg-26 mg or placebo capsule Take by mouth 2 (two) times a day. Active cholecalciferol (Vitamin D3) 125 mcg (5,000 Unit) capsule Take 125 mcg by mouth daily. M, Wed. Fri Active furosemide (Lasix) 20 mg tablet Take 20 mg by mouth daily. Active potassium chloride 10 mEq ER tablet Take 10 mEq by mouth daily with morning meal. Do not crush or chew. Active empagliflozin (Jardiance) 10 mg tablet Take 10 mg by mouth daily before morning meal. Active rosuvastatin (Crestor) 20 mg tablet Take 20 mg by mouth daily. Active tamsulosin (Flomax) 0.4 mg 24 hr capsule Take 0.4 mg by mouth daily. Active albuterol 90 mcg/actuation inhaler Inhale. 4 Active fluticasone propion-salmete roL 250-50 mcg/dose diskus inhaler Inhale 1 puff every 12 (twelve) hours. 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) Anticoagulant Treatment 08/2024 Atrial Fibrillation Unspecified 06/09/2024 Hypertension Essential Primary 06/09/2024 Social History Tobacco Use Types Packs/Day Years Used Date Smoking Tobacco: Never Smokeless Tobacco: Never Tobacco Cessation:Counseling Given: Not Answered Alcohol Use Standard Drinks/Week Comments Yes 3 (1 standard drink = 0.6 oz pur e alcohol) nightly Sex and Gender Information Value Date Recorded Sex Assigned at Not on file Legal Sex Male 11:02 PM MANUFACTURING ANALYST Gender Identity Not on file Sexual Orientation Not on file Last Filed Vital Signs Vital Sign Reading Time Taken Comments Blood Pressure 117/69 06/09/2024 7:13 PM MANUFACTURING ANALYST Pulse 68 06/09/2024 7:13 PM MANUFACTURING ANALYST Temperature 36.3 C (97.3 F) 06/09/2024 7:13 PM MANUFACTURING ANALYST Respiratory Rate 23 06/09/2024 7:13 PM MANUFACTURING ANALYST Oxygen Saturation 95% 06/09/2024 7:13 PM MANUFACTURING ANALYST Inhaled Oxygen Concentration - - Weight 89.2 kg (196 lb 10.4 oz) 06/09/2024 3:19 PM MANUFACTURING ANALYST Height - - Body Mass Index - - Plan of Treatment Health Maintenance Due Date Last Done Comments Hepatitis C Screening 1945 Office Visit for Blood Pressure Check / Re-check 1945 DTaP,Tdap,and Td Vaccines (3 - Td or Tdap) 04/24/2019 04/24/2009, 04/07/2007 RSV vaccine - (32-36 weeks) or 60+ years (1 - 1-dose 75+ series) 01/14/2020 COVID-19 Vaccine (2023- season) 2023 04/24/2022, 08/24/2021, 02/09/2021, Additional history exists Depression Screening (Annual PHQ-2) 04/07/2024 Fall Risk Screen (Annual) 04/07/2024 Influenza Vaccine (#1) 2024 5, 12/29/2020, 01/06/2020, Additional history exists Creatinine Level (Kidney Function Test) 06/09/2025 06/09/2024, 03/17/2023, 11/06/2022, Additional history exists Potassium Level 06/09/2025 06/09/2024, 03/07, 11/06/2022, Additional history exists Sodium Level 06/09/2025 06/09/2024, 03/07, 11/06/2022, Additional history exists Pneumococcal vaccine (50+ years) Completed 02/12/2017, 04/09/2016, 04/25/2015, Additional history exists Zoster Vaccines Completed 01/18/2021, 10/05, 04/07/2008, Additional history exists Abdominal Aortic Aneurysm (AAA) Screen Discontinued 06/09/2024 IPV Vaccines Aged Out No longer eligi ble based on patient's age to complete this topic Medical Devices Implanted Type Area Billiard Player Device Identifier Shelf Expiration Date Model / Serial / Lot W Khris-Screw Centerdr 1.5x 4.0 - [place] [id number] Implanted:Qty: 13 on 06/23/2000 Hardware e.g. pins/screws/ rods Anurag Khris Description:Device Manufactu rer - Anurag Khris. Device Status Text - [id number]. W Khris-Plate 1.5 Str 4ho [place] - [place] [id number] Implanted:Qty: 2 on 06/23/2000 Hardware e.g. pins/screws/ rods Anurag Khris Description:Device Manufactu rer - Anurag Khris. Device Status Text - [id number]. W Khris-Plate [place] - [place] [id number] Implanted:Qty: 1 on 06/23/2000 Hardware e.g. pins/screws/ rods Anurag Khris Description:Device Manufactu rer - Anurag Khris. Device Status Text - [id number]. Procedures Procedure Name Priority Date/Time Associated Diagnosis Comments CT ABDOMEN PELVIS WITH IV CONTRAST RAD - Emergent (Fastest; for the most critically ill patients) 06/09/2024 4:26 PM MANUFACTURING ANALYST COMPREHENSIVE METABOLIC PANEL, S/P STAT 06/09/2024 3:32 PM MANUFACTURING ANALYST from Last 3 Months or Most Recently Relevant to Health Maintenance Results * CT Abdomen Pelvis with IV Contrast (06/09/2024 4:26 PM MANUFACTURING ANALYST) Anatomical Region Laterality Modality Abdomen, Pelvis, Abdominal R ST LOS, Abdominal ARZ LOS, Abdominal FLA LOS N/A Computed Tomography 06/09/2024 4:27 PM MANUFACTURING ANALYST Impressions 06/09/2024 4:48 PM MANUFACTURING ANALYST 1. Nondisplaced buckle fractures of left anterior ribs 7-9. 2. No other acute traumatic abnormality of the chest, abdomen and pelvis. 3. Moderate cardiomegaly, with mild interstitial pulmonary edema and small layering right pleural effusion. 4. Liver cirrhosis, with mild splenomegaly. 5. Central prostatomegaly. Narrative 06/09/2024 4:48 PM MANUFACTURING ANALYST EXAM: CT CHEST WITH IV CONTRAST, CT ABDOMEN PELVIS WITH IV CONTRAST COMPARISON: None. FINDINGS: CHEST: Small layering non hyperdense hyperdense right pleural effusion dependent subsegmental atelectasis in both lungs, predominantly in the lung bases. No pulmonary consolidation. Mild pulmonary interlobular septal thickening, best seen in the upper lungs. Mild bronchial wall thickening in both lungs. Upper lobe centrilobular emphysematous changes. No pneumothorax. Moderate cardiomegaly, with relatively greater prominence of the right-sided heart chambers. No pericardial effusion. Normal caliber thoracic aorta and pulmonary trunk. Arterial atheromatous calcifications, including in the coronary arteries. Mild prominence of mediastinal and hilar lymph nodes. The largest lymph node in the precarinal region (series 8 image 185) shows a preserved fatty hilum. The other lymph nodes measure up to 9 mm in short axis dimension. These lymph nodes are nonspecific, but favored to be reactive. No axillary lymphadenopathy. Nondisplaced buckle fractures of left anterior ribs 7-9. Thoracic spine dextroconvex curvature ABDOMEN PELVIS: Nodular liver contour, consistent with cirrhosis. The gallbladder is nondistended. The spleen is mildly enlarged, measuring 12.4 cm in craniocaudal length. The pancreas and adrenal glands show no significant abnormality. Right lower pole renal cysts, larger measuring 3.7 cm in size.. Nonspecific perinephric fat stranding. No hydronephrosis. The urinary bladder is mildly distended. The prostate appears centrally hypertrophied and indents the bladder base. The bowel appears grossly intact. The appendix is normal. No intraperitoneal free air or fluid. Arterial atheromatous plaque. 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 Left inguinal surgical clips are noted. No lymphadenopathy. Small fat-containing right inguinal hernia. No acute osseous abnormality. Bone island in the left pubic body. Procedure Note Randall Grande M.D. - 06/09/2024 EXAM: CT CHEST WITH IV CONTRAST, CT ABDOMEN PELVIS WITH IV CONTRAST COMPARISON: None. FINDINGS: CHEST: Small layering non hyperdense hyperdense right pleural effusiondependent subsegmental atelectasis in both lungs, predominantly in thelung bases. No pulmonary consolidation. Mild pulmonary interlobular septalthickening, best seen in the upper lungs. Mild bronchial wall thickening in both lungs. Upper lobecentrilobular emphysematous changes. No pneumothorax. Moderate cardiomegaly, with relatively greater prominence of theright-sided heart chambers. No pericardial effusion. Normal caliberthoracic aorta and pulmonary trunk. Arterial atheromatous calcifications,including in the coronary arteries. Mild prominence of mediastinal and hilar lymph nodes. The largest lymphnode in the precarinal region (series 8 image 185) shows a preserved fattyhilum. The other lymph nodes measure up to 9 mm in short axis dimension.These lymph nodes are nonspecific, but favored to be reactive. No axillary lymphadenopathy. Nondisplaced buckle fractures of left anterior ribs 7-9. Thoracic spinedextroconvex curvature ABDOMEN PELVIS: Nodular liver contour, consistent with cirrhosis. Thegallbladder is nondistended. The spleen is mildly enlarged, measuring 12.4cm in craniocaudal length. The pancreas and adrenal glands show nosignificant abnormality. Right lower pole renal cysts, larger measuring 3.7 cm in size..Nonspecific perinephric fat stranding. No hydronephrosis. The urinarybladder is mildly distended. The prostate appears centrally hypertrophiedand indents the bladder base. The bowel appears grossly intact. The appendix is normal. No intraperitoneal free air or fluid. Arterial atheromatous plaque. Occlusion of the than left femoral artery,favored to be chronic given collateral vessel seen arising anteriorly fromthe common femoral artery. Left inguinal surgical clips are noted. No lymphadenopathy. Small fat-containing right inguinal hernia. No acute osseous abnormality. Bone island in the left pubic body. IMPRESSION: 1. Nondisplaced buckle fractures of left anterior ribs 7-9. 2. No other acute traumatic abnormality of the chest, abdomen andpelvis. 3. Moderate cardiomegaly, with mild interstitial pulmonary edema andsmall layering right pleural effusion. 4. Liver cirrhosis, with mild splenomegaly. 5. Central prostatomegaly. us Anand Jon M.D. IMG CT PROCEDURES Final Res ult * (ABNORMAL) Comprehensive Metabolic Panel (06/09/2024 3:32 PM MANUFACTURING ANALYST) Potassium, P 4.6 3.6 - 5.2 mmol/L 06/09/2024 3:55 PM MANUFACTURING ANALYST NPRG Sodium, P 140 135 - 145 mmol/L 06/09/2024 3:55 PM MANUFACTURING ANALYST NPRG Chloride, P 102 98 - 107 mmol/L 06/09/2024 3:55 PM MANUFACTURING ANALYST NPRG Bicarbonate, P 23 22 - 29 mmol/L 06/09/2024 3:55 PM MANUFACTURING ANALYST NPRG Anion Gap, P 15 7 - 15 06/09/2024 3:55 PM MANUFACTURING ANALYST NPRG BUN (Blood Urea Nitrogen), P 26(H) 8 - 24 mg/dL 06/09/2024 3:55 PM MANUFACTURING ANALYST NPRG Creatinine 1.39(H) 0.74 - 1.35 mg/dL 06/09/2024 3:55 PM MANUFACTURING ANALYST NPRG Estimated GFR (eGFR) 52(L) >=60 mL/min/BS A 06/09/2024 3:55 PM MANUFACTURING ANALYST NPRG Comment: Estimated GFR calculated using the 2020 CKD_EPI creatinine equation. Calcium, Total, P 9.3 8.8 - 10.2 mg/dL 06/09/2024 3:55 PM MANUFACTURING ANALYST NPRG Glucose, P 140 70 - 140 mg/dL 06/09/2024 3:55 PM MANUFACTURING ANALYST NPRG Protein, Total, P 6.6 6.3 - 7.9 g/dL 06/09/2024 3:55 PM MANUFACTURING ANALYST NPRG Albumin, P 4.0 3.5 - 5.0 g/dL 06/09/2024 3:55 PM MANUFACTURING ANALYST NPRG Aspartate Aminotransferase (AST), P 28 8 - 48 U/L 06/09/2024 3:55 PM MANUFACTURING ANALYST NPRG Alkaline Phosphatase, P 72 40 - 129 U/L 06/09/2024 3:55 PM MANUFACTURING ANALYST NPRG Alanine Aminotransferase (ALT), P 30 7 - 55 U/L 06/09/2024 3:55 PM MANUFACTURING ANALYST NPRG Bilirubin, Total, P 1.0 0.0 - 1.2 mg/dL 06/09/2024 3:55 PM MANUFACTURING ANALYST NPRG Blood (Blood, Venous) 06/09/2024 3:32 PM MANUFACTURING ANALYST 06/09/2024 3:35 PM MANUFACTURING ANALYST Anand Jon M.D. LAB BLOOD ADD-ON Final Resu lt [facility] [address] [place] [address], [facility] [address] [place] [address] from Last 3 Months or Most Recently Relevant to Health Maintenance Insurance [employer] Care Teams Rotary Dump Operator Relationship Specialty Start Date End Date Elsewhere, Pcp PCP - General Internal Medicine 06/09/24
--- NOTE | 2024-12-06 10:47 | CRLHL7_ITS ---
For Patients: As a result of the Cures Act, medical imaging exams and procedure reports are released immediately into your electronic medical record. You may view this report before your referring provider. If you have questions, please contact your health care provider. INDICATION: : Shortness of breath COMPARISON: Chest radiograph on June 18, 2024 and prior studies TECHNIQUE: One view(s) of the chest FINDINGS/IMPRESSION: The heart is mildly enlarged, accentuated by portable technique. Faint lower lung zone opacities bilaterally, may represent an acute infectious/inflammatory process versus atelectasis in the appropriate clinical context. Questionable faint diffuse interstitial markings may represent mild pulmonary interstitial edema. There is no pleural effusion or pneumothorax. No displaced fractures. Dictated by Husam Oconnor MD @ 12/06/2024 11:15:05 AM (Electronically Signed)
--- NOTE | 2024-12-06 10:49 | ED.GENADULT ---
HPI - General Adult General Chief complaint: Shortness of Breath/Dyspnea Stated complaint: hard time breathing Time Seen by Provider: 12/06/24 10:26 History of Present Illness HPI narrative: Patient is a 79-year-old gentleman who has history of congestive heart failure and atrial fibrillation who presents with shortness of breath. He has not been feeling well for last several days. He has had increased lower extremity edema as well. Patient arrives in the emergency room via private vehicle with a pulse of 130 respirations of 28 but is not hypoxic. Patient states he has been taking his medications as prescribed. It appears he is on apixaban for anticoagulation lisinopril for Lasix metoprolol. Patient lives alone but notified his neighbor that he was not feeling well and was brought to the emergency room. No overt chest pain. No neurologic findings. Related Data Home Medications ?Medication ?Instructions ?Recorded ?Confirmed apixaban 5 mg tablet (Eliquis) 5 mg PO BID 10/29/23 06/18/24 albuterol sulfate 90 mcg/actuation 2 puff inhalation QID PRN 10/31/23 06/18/24 aerosol inhaler furosemide 20 mg tablet 20 mg PO MOWEFR@08 10/31/23 06/18/24 fluticasone 250 mcg-salmeterol 50 1 inh inhalation BID 04/05/24 06/18/24 mcg/dose blistr powdr for inhalation tamsulosin 0.4 mg capsule 0.4 mg PO HS 04/05/24 06/18/24 metoprolol succinate 100 mg mg PO DAILY 06/12/24 06/18/24 tablet,extended release 24 hr Previous Rx's ?Medication ?Instructions ?Recorded lisinopril 2.5 mg tablet 2.5 mg PO HS #30 tabs 04/08/24 Allergies Allergy/AdvReac Type Severity Reaction Status Date / Time No Known Drug Allergies Allergy Verified 12/06/24 12:34 Review of Systems Status of ROS: Reports: 10 or more systems reviewed and unremarkable except as noted in History and below [facility] Medical History Atrial fibrillation with RVR ?I48.91 - Unspecified atrial fibrillation (ICD-10) Hypertension ?I10 - Essential (primary) hypertension (ICD-10) COPD (chronic obstructive pulmonary disease) ?J44.9 - Chronic obstructive pulmonary disease, unspecified (ICD-10) CAD (coronary artery disease) ?I25.10 - Atherosclerotic heart disease of [place] coronary artery without angina pectoris (ICD-10) Peripheral arterial disease ?I73.9 - Peripheral vascular disease, unspecified (ICD-10) BPH (benign prostatic hyperplasia) ?N40.0 - Benign prostatic hyperplasia without lower urinary tract symptoms (ICD-10) Hyperlipidemia ?E78.5 - Hyperlipidemia, unspecified (ICD-10) Former cigarette smoker ?Z87.891 - Personal history of nicotine dependence (ICD-10) Chronic wound of extremity Critical limb ischemia with history of revascularization of same extremity ?I70.229 - Atherosclerosis of [place] arteries of extremities with rest pain, unspecified extremity (ICD-10) ?Z98.890 - Other specified postprocedural states (ICD-10) Hx of ischemic left MCA stroke ?Z86.73 - Personal history of transient ischemic attack (TIA), and cerebral infarction without residual deficits (ICD-10) Chronic anticoagulation ?Z79.01 - [place] (current) use of anticoagulants (ICD-10) Chronic atrial fibrillation ?I48.20 - Chronic atrial fibrillation, unspecified (ICD-10) Surgical History Hx of coronary angioplasty ?Z98.61 - Coronary angioplasty status (ICD-10) Status post stereotactic brain biopsy ?Z98.890 - Other specified postprocedural states (ICD-10) Peripheral vascular angioplasty status with implants and grafts ?Z95.820 - Peripheral vascular angioplasty status with implants and grafts (ICD-10) S/P femoral-popliteal bypass surgery ?Z95.828 - Presence of other vascular implants and grafts (ICD-10) Social History What is your current living situation?: I presently have a place to live Problems where you live: no known problems Problems where you live details: n/a In the past 12 months, utilities in danger of being shut off: no In past 12 months, lack of transportation kept you from medical appts, meetings, work, or getting things needed for daily living: no In the past 12 mos, have been you worried that your food would run out before you had money to buy more?: never true In the past 12 mos, the food you bought just didn't last and you didn't have money to buy more?: never true Highest level of school completed/degree received: Master's degree Smoking Status: Former smoker Do you use any of these nicotine containing products: None Second hand tobacco smoke exposure: No How often do you have a drink containing alcohol: 4 or more times a week Alcohol type: beer How many standard drinks containing alcohol do you have on a typical day: 3 or 4 How often do you have six or more drinks on one occasion: Less than monthly AUDIT-C Alcohol total score: 6 Non-prescribed substance use: denies use Caffeine: Yes (2 cup of coffee a.m.) How often does anyone, including family, friends and others, physically hurt you: never How often does anyone, including family, friends and others, insult or talk down to you: never How often does anyone, including family, friends and others, threaten you with harm: never How often does anyone, including family, friends and others, scream or curse at you: never service: Yes Exam Narrative: Exam Narrative: EXAM GENERAL: Patient appears anxious. EYES: No scleral icterus. LYMPH: No supraclavicular or cervical lymphadenopathy. SKIN: Visible skin seen during exam normal or with benign process only. EXT: 1+ symmetric lower extremity edema. HEART: Irregularly irregular and tachycardic. LUNGS: Decreased breath sounds with scattered rhonchi. ABD: Soft, non tender, non distended. PSYCH: Good eye contact, speech is not pressured. Const: Vital Signs, click to edit/add: Vital Signs - 24 hr 12/06/24 10:36 12/06/24 10:40 12/06/24 10:41 Temperature 97.3 F L Pulse Rate 126 H 111 H Pulse Rate [Pulse Oximeter] 130 H Respiratory Rate 28 H 19 20 Blood Pressure 99/77 Blood Pressure [Ri ght Upper Arm] 99/77 Pulse Oximetry 94 90 97 Oxygen Delivery Me thod Room Air 12/06/24 10:45 12/06/24 11:00 12/06/24 11:15 Temperature Pulse Rate 122 H 103 H 118 H Pulse Rate [Pulse Oximeter] Respiratory Rate 17 19 16 Blood Pressure Blood Pressure [Ri ght Upper Arm] Pulse Oximetry 96 95 93 Oxygen Delivery Me thod 12/06/24 11:20 12/06/24 11:30 12/06/24 11:45 Temperature Pulse Rate 107 H 100 112 H Pulse Rate [Pulse Oximeter] Respiratory Rate 15 18 19 Blood Pressure 103/79 Blood Pressure [Ri ght Upper Arm] Pulse Oximetry 97 94 95 Oxygen Delivery Me thod 12/06/24 12:15 12/06/24 12:30 12/06/24 12:45 Temperature Pulse Rate Pulse Rate [Pulse Oximeter] Respiratory Rate 23 13 20 Blood Pressure Blood Pressure [Ri ght Upper Arm] Pulse Oximetry Oxygen Delivery Wa thod 12/06/24 13:00 12/06/24 13:15 12/06/24 13:30 Temperature Pulse Rate Pulse Rate [Pulse Oximeter] Respiratory Rate 19 13 17 Blood Pressure Blood Pressure [Ri ght Upper Arm] Pulse Oximetry Oxygen Delivery Wa thod 12/06/24 13:45 Temperature Pulse Rate Pulse Rate [Pulse Oximeter] Respiratory Rate 21 Blood Pressure Blood Pressure [Ri ght Upper Arm] [facility]ulse [facility] Course: Patient seen examined. Will be given him a little bit of a fluid bolus to try to improve his blood pressure initially. We are sending off chest x-ray troponin D-dimer BNP CMP. EKG upon my review shows atrial fibrillation with frequent premature ventricular contractions. Vital Signs Vital signs: Initial Vital Signs Temperature 97.3 F L 12/06/24 10:36 Temperature Source Temporal Artery Scan 12/06/24 10:36 Pulse Rate 130 H 12/06/24 10:36 Respiratory Rate 28 H 12/06/24 10:36 Blood Pressure 99/77 12/06/24 10:36 Blood Pressure Mean 84 12/06/24 10:36 Blood Pressure Position Sitting 12/06/24 10:36 Pulse Oximetry 94 12/06/24 10:36 Oxygen Delivery Method Room Air 12/06/24 10:36 Vital Signs Temperature 97.3 F L 12/06/24 10:36 Pulse Rate 130 H 12/06/24 10:36 Respiratory Rate 28 H 12/06/24 10:36 Blood Pressure 99/77 12/06/24 10:36 Pulse Oximetry 94 12/06/24 10:36 Oxygen Delivery Method Room Air 12/06/24 10:36 Temperature 97.3 F L 12/06/24 10:36 Pulse Rate 112 H 12/06/24 11:45 Respiratory Rate 21 12/06/24 13:45 Blood Pressure 103/79 12/06/24 11:20 Pulse Oximetry 95 12/06/24 11:45 Oxygen Delivery Method Room Air 12/06/24 10:36 Medical Decision Making MDM Narrative Medical decision making narrative: Patient is a 79-year-old gentleman who presents with shortness of breath and lower extremity edema. He initially had a pulse of 130 with atrial fibrillation as the predominant rhythm. He was hypotensive upon arrival in the range of 85/50. Initial I did consider giving him IV fluids due to his hypotension but I elected not to. His pulse is stabilized at approximately 110 and his blood pressure is also around 110. Troponin is negative x2. BNP elevated as compared to previous. EKG shows increased voltage in the precordial leads. D-dimer was elevated and chest x-ray shows pleural effusions with pulmonary edema. At this time patient is medically stable but does need further attention to his congestive heart failure. He will be admitted for further evaluation and treatment. Lab Data Labs: Lab Results 12/06/24 12/06/24 12/06/24 Range/Units 10:35 11:05 12:21 WBC 8.18 (4.50-11.00) K/uL RBC 4.20 L (4.30-5.90) m/uL Hgb 13.3 L (13.5-17.5) gm/dL Hct 41.2 (37.0-53.0) % MCV 98 (80-100) fL MCH 32 (26-34) pg MCHC 32 (32-36) gm/dL RDW Coeff of Ashley 17.0 H (11.5-15.5) % Plt Count 142 (140-440) K/uL Neut % (Auto) 81.3 H (42.0-72.0) % Lymph % (Auto) 11.4 L (20-44) % [place] % (Auto) 5.7 (0.0-11.0) % Eos % (Auto) 1.0 (0.0-7.0) % Baso % (Auto) 0.4 (0.0-3.0) % Neut # (Auto) 6.70 (1.7-7.0) K/uL Lymph # (Auto) 0.90 (0.90-2.90) K/uL [place] # (Auto) 0.50 (0.00-0.90) K/UL Eos # (Auto) 0.08 (0.00-0.50) K/uL Baso # (Auto) 0.03 (0.00-0.30) K/uL Abs Immat Gran (auto) 0.02 (0.00-0.30) K/uL Imm/Tot Granulo (auto) 0.2 % D-Dimer Quant (PE/DVT) 1.14 H (0.00-0.50) ug/ml Sodium 133 L (135-149) mmol/L Potassium 4.5 (3.6-5.1) mmol/L Chloride 98 (96-114) mmol/L Carbon Dioxide 21 (20-32) mmol/L Anion Gap 14 (7-15) mEq/L BUN 24 (7-30) mg/dL Creatinine 1.5 (0.5-1.5) mg/dL Estimated Creat Clear 47.73 Estimated GFR 47 ml/min Glucose 188 H (60-115) mg/dL Calcium 9.0 (8.4-10.6) mg/dL Total Bilirubin 1.7 H (0.1-1.5) mg/dL AST 43 H (12-35) U/L ALT 36 (4-50) U/L Alkaline Phosphatase 68 (40-150) U/L Troponin I 0.03 (0.01-0.04) ng/mL NT-Pro-B Natriuret Pep 9800 H (See Note) pg/mL Total Protein 6.6 (6.0-8.3) g/dL Albumin 4.0 (3.3-5.0) g/dL SARS-CoV-2 (PCR) (Negative) Influenza Type A (PCR) (Negative) Influenza Type B (PCR) (Negative) RSV (PCR) (Negative) POC Troponin I 0.04 0.02 (0.01-0.04) ng/ml 12/06/24 Range/Units 12:40 WBC (4.50-11.00) K/uL RBC (4.30-5.90) m/uL Hgb (13.5-17.5) gm/dL Hct (37.0-53.0) % MCV (80-100) fL MCH (26-34) pg MCHC (32-36) gm/dL RDW Coeff of Ashley (11.5-15.5) % Plt Count (140-440) K/uL Neut % (Auto) (42.0-72.0) % Lymph % (Auto) (20-44) % [place] % (Auto) (0.0-11.0) % Eos % (Auto) (0.0-7.0) % Baso % (Auto) (0.0-3.0) % Neut # (Auto) (1.7-7.0) K/uL Lymph # (Auto) (0.90-2.90) K/uL [place] # (Auto) (0.00-0.90) K/UL Eos # (Auto) (0.00-0.50) K/uL Baso # (Auto) (0.00-0.30) K/uL Abs Immat Gran (auto) (0.00-0.30) K/uL Imm/Tot Granulo (auto) % D-Dimer Quant (PE/DVT) (0.00-0.50) ug/ml Sodium (135-149) mmol/L Potassium (3.6-5.1) mmol/L Chloride (96-114) mmol/L Carbon Dioxide (20-32) mmol/L Anion Gap (7-15) mEq/L BUN (7-30) mg/dL Creatinine (0.5-1.5) mg/dL Estimated Creat Clear Estimated GFR ml/min Glucose (60-115) mg/dL Calcium (8.4-10.6) mg/dL Total Bilirubin (0.1-1.5) mg/dL AST (12-35) U/L ALT (4-50) U/L Alkaline Phosphatase (40-150) U/L Troponin I (0.01-0.04) ng/mL NT-Pro-B Natriuret Pep (See Note) pg/mL Total Protein (6.0-8.3) g/dL Albumin (3.3-5.0) g/dL SARS-CoV-2 (PCR) Negative SARS-CoV-2 (Negative) Influenza Type A (PCR) Negative PCR FLU A (Negative) Influenza Type B (PCR) Negative PCR FLU B (Negative) RSV (PCR) Negative PCR RSV (Negative) POC Troponin I (0.01-0.04) ng/ml Discharge Plan Discharge Clinical Impression: Congestive heart failure Patient Disposition: Admitted As Observation Condition: Stable Activity Level: Other Discharge Diet: Other
[2024-12-06 11:00] LABS: Hematocrit 41.2 % (37.0-53.0); Hemoglobin* 13.3 gm/dL (13.5-17.5); Immature Granulocytes Abs Auto 0.02 K/uL (0.00-0.30); Immature Granulocytes Pct Auto 0.2 %; Mean Corpuscular HGB Conc 32 gm/dL (32-36); Mean Corpuscular Hemoglobin 32 pg (26-34); Mean Corpuscular Volume 98 fL (80-100); RDW Coefficient of Variation % 17.0 % (11.5-15.5); Red Blood Count 4.20 m/uL (4.30-5.90); White Blood Count* 8.18 K/uL (4.50-11.00)
[2024-12-06 11:03] LABS: Lymphocytes Absolute Auto 0.90 K/uL (0.90-2.90); Slide Review Reflex No
[2024-12-06 11:18] LABS: Albumin* 4.0 g/dL (3.3-5.0); Chloride* 98 mmol/L (96-114); Potassium* 4.5 mmol/L (3.6-5.1); Sodium* 133 mmol/L (135-149)
[2024-12-06 11:20] LABS: Blood Urea Nitrogen* 24 mg/dL (7-30); Creatinine* 1.5 mg/dL (0.5-1.5); Est. Creatinine Clearance* 47.73; Estimated Glomerular Filt Rate 47 ml/min
[2024-12-06 11:21] LABS: Alanine Aminotransferase* 36 U/L (4-50); Alkaline Phosphatase* 68 U/L (40-150); Anion Gap 14 mEq/L (7-15); Aspartate Amino Transferase* 43 U/L (12-35); Bilirubin Total* 1.7 mg/dL (0.1-1.5); Calcium* 9.0 mg/dL (8.4-10.6); Carbon Dioxide* 21 mmol/L (20-32); Glucose* 188 mg/dL (60-115); Total Protein* 6.6 g/dL (6.0-8.3)
[2024-12-06 11:22] LABS: D Dimer Quantitative* 1.14 ug/ml (0.00-0.50)
[2024-12-06 11:25] LABS: Troponin, Point-of-Care* 0.04 ng/ml (0.01-0.04)
[2024-12-06 11:35] LABS: NT Pro B Type NatriureticPept* 9800 pg/mL (See Note)
--- NOTE | 2024-12-06 11:37 | CRLHL7_ITS ---
For Patients: As a result of the 21st Century Cures Act, medical imaging exams and procedure reports are released immediately into your electronic medical record. You may view this report before your referring provider. If you have questions, please contact your health care provider. INDICATION: Shortness of breath. Elevated D-dimer. TECHNIQUE: CT chest PE was acquired with 95 cc Isovue 370 IV contrast. COMPARISON: None available at the time the study was interpreted. FINDINGS: Heart and vasculature: Cardiomegaly. Atherosclerotic coronary artery calcifications. No filling defects identified within the main, lobar, and contrast opacified portions of the segmental pulmonary arteries. However, several segmental pulmonary arteries are inadequately contrast opacified, and can not be evaluated for acute pulmonary embolus, particularly in the bilateral lower lobes. Lungs and pleura: Moderate right pleural effusion, small left pleural effusion, with associated bilateral lower lobe compressive atelectasis. Additional small areas of loculated pleural fluid versus subsegmental atelectasis in the right middle lobe and lingula. Mild background centrilobular emphysema. Mild septal thickening, compatible with component of pulmonary edema. Lung parenchyma evaluation is limited due to motion artifact, no large focal consolidation or pulmonary masses identified. No evidence of pulmonary infarct. Thyroid and lower neck: No suspicious thyroid nodule. Mediastinum/art: Mildly enlarged mediastinal lymph nodes, which may be reactive. Chest wall: No axillary lymphadenopathy. Upper abdomen: Nodular liver contour, compatible with cirrhosis. Exophytic 3.0 cm gastric diverticulum versus gastric mass (series 4, image 163). Mild ascites. Bones: Multilevel degenerative changes of the spine. Bones are diffusely osteopenic. IMPRESSION: 1. No large central pulmonary embolus identified. However, several segmental pulmonary arteries are inadequately contrast opacified and can not be evaluated for acute pulmonary embolus, particularly in the bilateral lower lobes. 2. Significant cardiomegaly. Moderate right pleural effusion, small left pleural effusion. Mild septal thickening, compatible with component of pulmonary edema. 3. Mildly enlarged mediastinal lymph nodes, which may be reactive. 4. Cirrhotic liver. Mild ascites. Exophytic 3.0 cm gastric diverticulum versus gastric mass. Recommend comparison with prior studies, consider GI consultation. Please note that all CT scans at this facility use dose modulation, iterative reconstruction, and/or weight-based dosing when appropriate to reduce radiation dose to as low as reasonably achievable. Dictated by Earl Batista MD @ 12/06/2024 1:32:35 PM (Electronically Signed)
[2024-12-06 12:45] LABS: Troponin, Point-of-Care* 0.02 ng/ml (0.01-0.04)
[2024-12-06 13:26] LABS: PCR FLU A Negative PCR FLU A (Negative); PCR FLU B Negative PCR FLU B (Negative); PCR RSV Negative PCR RSV (Negative); SARS PCR* Negative SARS-CoV-2 (Negative)
--- NOTE | 2024-12-06 14:12 | PM.ANBPRC ---
[facility] Medical History Atrial fibrillation with RVR ?I48.91 - Unspecified atrial fibrillation (ICD-10) Hypertension ?I10 - Essential (primary) hypertension (ICD-10) COPD (chronic obstructive pulmonary disease) ?J44.9 - Chronic obstructive pulmonary disease, unspecified (ICD-10) CAD (coronary artery disease) ?I25.10 - Atherosclerotic heart disease of [place] coronary artery without angina pectoris (ICD-10) Peripheral arterial disease ?I73.9 - Peripheral vascular disease, unspecified (ICD-10) BPH (benign prostatic hyperplasia) ?N40.0 - Benign prostatic hyperplasia without lower urinary tract symptoms (ICD-10) Hyperlipidemia ?E78.5 - Hyperlipidemia, unspecified (ICD-10) Former cigarette smoker ?Z87.891 - Personal history of nicotine dependence (ICD-10) Chronic wound of extremity Critical limb ischemia with history of revascularization of same extremity ?I70.229 - Atherosclerosis of [place] arteries of extremities with rest pain, unspecified extremity (ICD-10) ?Z98.890 - Other specified postprocedural states (ICD-10) Hx of ischemic left MCA stroke ?Z86.73 - Personal history of transient ischemic attack (TIA), and cerebral infarction without residual deficits (ICD-10) Chronic anticoagulation ?Z79.01 - halfway (current) use of anticoagulants (ICD-10) Chronic atrial fibrillation ?I48.20 - Chronic atrial fibrillation, unspecified (ICD-10) Surgical History Hx of coronary angioplasty ?Z98.61 - Coronary angioplasty status (ICD-10) Status post stereotactic brain biopsy ?Z98.890 - Other specified postprocedural states (ICD-10) Peripheral vascular angioplasty status with implants and grafts ?Z95.820 - Peripheral vascular angioplasty status with implants and grafts (ICD-10) S/P femoral-popliteal bypass surgery ?Z95.828 - Presence of other vascular implants and grafts (ICD-10) Social History What is your current living situation?: I presently have a place to live Problems where you live: no known problems Problems where you live details: n/a In the past 12 months, utilities in danger of being shut off: no In past 12 months, lack of transportation kept you from medical appts, meetings, work, or getting things needed for daily living: no In the past 12 mos, have been you worried that your food would run out before you had money to buy more?: never true In the past 12 mos, the food you bought just didn't last and you didn't have money to buy more?: never true Highest level of school completed/degree received: Master's degree Smoking Status: Former smoker Do you use any of these nicotine containing products: None Second hand tobacco smoke exposure: No How often do you have a drink containing alcohol: 4 or more times a week Alcohol type: beer How many standard drinks containing alcohol do you have on a typical day: 3 or 4 How often do you have six or more drinks on one occasion: Less than monthly AUDIT-C Alcohol total score: 6 Non-prescribed substance use: denies use Caffeine: Yes (2 cup of coffee a.m.) How often does anyone, including family, friends and others, physically hurt you: never How often does anyone, including family, friends and others, insult or talk down to you: never How often does anyone, including family, friends and others, threaten you with harm: never How often does anyone, including family, friends and others, scream or curse at you: never service: Yes Meds Home Medications and Allergies Home Medications ?Medication ?Instructions ?Recorded ?Confirmed ?Type apixaban 5 mg tablet (Eliquis) 5 mg PO BID 10/29/23 06/18/24 History albuterol sulfate 90 mcg/actuation 2 puff inhalation QID PRN 10/31/23 06/18/24 History aerosol inhaler furosemide 20 mg tablet 20 mg PO MOWEFR@08 10/31/23 06/18/24 History fluticasone 250 mcg-salmeterol 50 1 inh inhalation BID 04/05/24 06/18/24 History mcg/dose blistr powdr for inhalation tamsulosin 0.4 mg capsule 0.4 mg PO HS 04/05/24 06/18/24 History lisinopril 2.5 mg tablet 2.5 mg PO HS #30 tabs 04/08/24 06/18/24 Rx metoprolol succinate 100 mg mg PO DAILY 06/12/24 06/18/24 History tablet,extended release 24 hr Allergies Allergy/AdvReac Type Severity Reaction Status Date / Time No Known Drug Allergies Allergy Verified 12/06/24 12:34 Results Labs Labs: Laboratory Results - last 24 hr 12/06/24 12/06/24 12/06/24 10:35 11:05 12:21 WBC 8.18 RBC 4.20 L Hgb 13.3 L Hct 41.2 MCV 98 MCH 32 MCHC 32 RDW Coeff of Ashley 17.0 H Plt Count 142 Neut % (Auto) 81.3 H Lymph % (Auto) 11.4 L Ray % (Auto) 5.7 Eos % (Auto) 1.0 Baso % (Auto) 0.4 Neut # (Auto) 6.70 Lymph # (Auto) 0.90 Ray # (Auto) 0.50 Eos # (Auto) 0.08 Baso # (Auto) 0.03 Abs Immat Gran (auto) 0.02 Imm/Tot Granulo (auto) 0.2 D-Dimer Quant (PE/DVT) 1.14 H Sodium 133 L Potassium 4.5 Chloride 98 Carbon Dioxide 21 Anion Gap 14 BUN 24 Creatinine 1.5 Estimated Creat Clear 47.73 Estimated GFR 47 Glucose 188 H Calcium 9.0 Total Bilirubin 1.7 H AST 43 H ALT 36 Alkaline Phosphatase 68 Troponin I 0.03 NT-Pro-B Natriuret Pep 9800 H Total Protein 6.6 Albumin 4.0 SARS-CoV-2 (PCR) Influenza Type A (PCR) Influenza Type B (PCR) RSV (PCR) POC Troponin I 0.04 0.02 12/06/24 12:40 WBC RBC Hgb Hct MCV MCH MCHC RDW Coeff of Ashley Plt Count Neut % (Auto) Lymph % (Auto) Ray % (Auto) Eos % (Auto) Baso % (Auto) Neut # (Auto) Lymph # (Auto) Ray # (Auto) Eos # (Auto) Baso # (Auto) Abs Immat Gran (auto) Imm/Tot Granulo (auto) D-Dimer Quant (PE/DVT) Sodium Potassium Chloride Carbon Dioxide Anion Gap BUN Creatinine Estimated Creat Clear Estimated GFR Glucose Calcium Total Bilirubin AST ALT Alkaline Phosphatase Troponin I NT-Pro-B Natriuret Pep Total Protein Albumin SARS-CoV-2 (PCR) Negative SARS-CoV-2 Influenza Type A (PCR) Negative PCR FLU A Influenza Type B (PCR) Negative PCR FLU B RSV (PCR) Negative PCR RSV POC Troponin I Vital Signs Vital Signs: Last Vital Signs Temp 97.3 F L 12/06/24 10:36 Pulse 118 H 12/06/24 14:00 Resp 15 12/06/24 14:00 BP 101/68 12/06/24 14:00 Pulse Ox 95 12/06/24 14:00 O2 Del Method Room Air 12/06/24 10:36 Weight: 88.451 kg Height: 190.5 cm Anesthesia Procedures Epidural Blood Patch Patient Location: ED Start Time: 13:45 Stop Time: 14:20 Start Date: 12/06/24 Stop Date: 12/06/24 Reason for Blood Patch: spinal headache and CSF leak PRINCIPAL ACCOUNTS CLERK: Jean Christianson Preanesthetic Checklist: IV checked, risks and benefits discussed, surgical consent, monitors and equipment checked, pre-op evaluation, timeout performed and anesthesia consent Patient Symptoms: postural headache, nausea, photophobia and neck stiffness Pain (1-10): 8 Pain duration: 5 days Pain Frequency: intermittent Quality of Pain: aching, pressure and throbbing Pain exacerbated by: cough/straining, standing and sitting Pain Made Worse: body movement Pain made better: position change Diagnosis of PDPH: Yes Volume of Blood Injected (mL): 18 Patient Position: sitting Prep: Chloraprep Monitoring: cont pulse oximetry and BP monitoring Approach: midline Location: L4-5 Injection Technique: HUMAIRA saline Injection Method: Touhy needle Needle Gauge Used: 17 Needle Length (cm): 10 cm Catheter Type: none Notes: Patient tolerated slow injection of autologous blood well
--- NOTE | 2024-12-06 15:50 | PM.IMHP1 ---
Assessment and Plan Assessment and plan (1) Dyspnea on exertion: Problem comment: - Differential diagnosis includes: Exacerbation of congestive heart failure, less likely bilateral lower lobes segmental PE as CTA was with inadequate contrast in the segm periph arteries. In addition, patient was not hypoxic on presentation, his tachycardia was not sinus it was irregular and likely secondary to his chronic AFib RVR. CT scan did not show right heart strain and troponin was negative. D-dimer mildly elevated. My exam did not suggest DVT, but if patient develops more signs or symptoms we could repeat CTA chest and may consider bilateral lower extremity venous Doppler. Currently patient is on Eliquis and is compliant on it. - Troponin is negative x2. BNP elevated at 9800 as compared to previous. EKG shows AFib with frequent PVCs (similar to previous EKG). - D-dimer mildly elevated at 1.1. CTA chest was done and it showed the following: No large central pulmonary embolus identified. However, several segmental pulmonary arteries are inadequately contrast opacified and can not be evaluated for acute pulmonary embolus, particularly in the bilateral lower lobes. Moderate right pleural effusion, small left pleural effusion. Mild septal thickening, compatible with component of pulmonary edema. - patient is on GDMT: Beta-timothy, Entresto, SGLT 2 inhibitor. - patient is on furosemide 40 mg daily he said it was increased a month ago, previously he used to be on furosemide 20 mg daily. - Echo 04/06: Mildly reduced global systolic function with an estimated EF of 40 - 45%. global systolic RV function is mildly reduced, mild to moderate mitral regurgitation. Moderate tricuspid regurgitation. Elevated estimated pulmonary pressures by tricuspid regurgitation velocity and right atrial pressure (30 mmHg plus RAP). - Ordered repeat echo - daily weight - patient will need diuresis, taking into consideration his low blood pressure on admission. - will need to control his heart rate (Hx of AFib), as he presented with Afib w/ rapid ventricular response. - optimize guideline-directed medical therapy for heart failure with reduced ejection fraction. Status: Acute (2) HFrEF (heart failure with reduced ejection fraction): Problem comment: - patient is on GDMT: Beta-timothy, Entresto, SGLT 2 inhibitor. - patient is on furosemide 40 mg daily he said it was increased a month ago, previously he used to be on furosemide 20 mg daily. - Echo 04/06: Mildly reduced global systolic function with an estimated EF of 40 - 45%. global systolic RV function is mildly reduced, mild to moderate mitral regurgitation. Moderate tricuspid regurgitation. Elevated estimated pulmonary pressures by tricuspid regurgitation velocity and right atrial pressure (30 mmHg plus RAP). - repeat echo Status: Acute (3) Atrial fibrillation with RVR: Problem comment: - on metoprolol succinate 100 mg daily, will continue. - anticoagulated on Eliquis - on telemetry Status: Inactive (4) TITA (acute kidney injury): Problem comment: -patient has creatinine baseline is 0.8, today he came in with creatinine of 1.5. -differential diagnosis: Could be related to congestive heart failure, patient will need diuresis. -repeat labs Status: Acute (5) CAD (coronary artery disease): Problem comment: -01/2020 drug eluting stent placement to his mid LAD and mid LCx Status: Acute (6) Peripheral arterial disease: Problem comment: - hx of left femoral-PT bypass in 2019 - chronic swelling in the left leg/ankle - has had issues with chronic wounds in bilateral extremities - Consider compression stockings Status: Acute (7) Chronic anticoagulation: Problem comment: - Apixaban 5 mg BID for a fib Status: Acute (8) COPD (chronic obstructive pulmonary disease): Problem comment: -no exacerbation of COPD at this admission -former smoker -CXR showing COPD with prominent bronchovascular markings. -on advair and albuterol -DuoNebs ordered prn Continue home medications on discharge Status: Acute (9) Hyperglycemia: Problem comment: - A1c 5.9 in 03/30 -Further outpatient follow-up with PCP Status: Acute (10) Hyperlipidemia: Problem comment: - Continue statin Status: Acute (11) Abnormal finding on imaging of liver: Problem comment: - CTA chest on admission showed: Cirrhotic liver. Mild ascites. Exophytic 3.0 cm gastric diverticulum versus gastric mass. - patient will need to follow-up with his PCP and may need a GI consultation as an outpatient. Status: Acute (12) Abnormal CT scan, stomach: Problem comment: - CTA chest on admission showed: Cirrhotic liver. Mild ascites. Exophytic 3.0 cm gastric diverticulum versus gastric mass. - patient will need to follow-up with his PCP and may need a GI consultation as an outpatient. Status: Acute Total Time Spent Total Time Spent: Time spent: Today I spent 75 minutes seeing the patient, discussing the patient with ER staff, reviewing [facility] and EPIC notes/diagnostics, discussing the care plan with our care time that includes social work, PT/OT, pharmacy, RT, chcf and documenting my impressions and plan in the medical record. Hospitalist- H&P: JACOBY History of Present Illness Date Seen: 12/06/24 Chief complaint: hard time breathing Narrative: Bola Zurita is a 79 year old male with past medical history of atrial fibrillation on Eliquis, coronary artery disease status post PCI in 2019, heart failure with reduced ejection fraction, history of stroke in 2020, COPD and peripheral arterial disease who presents to the ED complaining of dyspnea on exertion for the past few days. I interviewed the patient while his daughter came was there. Both the patient and the family states that he started to feel unwell about 5 days-7 days ago. Patient states that for the past couple of days he thinks that he would be short of breath walking a short distance and thus he was not able to do his regular ADLs. He states that he does not have orthopnea but they said that his weight increased by 7-9 lb in the past week. He denies history of DVT/PE. He confirms that he takes his medications including Eliquis 5 mg twice daily religiously. He took his morning medications already. Patient states that he was told that he has chronic pleural effusion. Both the patient and the family does not know of any liver cirrhosis/fibrosis history but patient states that he drinks of 2 beers every night for a long time. Patient denies fevers, cough or phlegm. He also denies chest pain/discomfort or palpitations. At the ED, patient was tachycardic in the 130s on presentation, hypotensive with blood pressure of about 85/50 mm Hg. WBCs within normal limits, labs suggest TITA w/ Cr 1.5 (previously 0.8). Troponin is negative x2. BNP elevated at 9800 as compared to previous. EKG shows AFib with frequent PVCs (similar to previous EKG). D-dimer mildly elevated at 1.1. CTA chest was done and it showed the following: No large central pulmonary embolus identified. However, several segmental pulmonary arteries are inadequately contrast opacified and can not be evaluated for acute pulmonary embolus, particularly in the bilateral lower lobes. Moderate right pleural effusion, small left pleural effusion. Mild septal thickening, compatible with component of pulmonary edema. Cirrhotic liver. Mild ascites. Exophytic 3.0 cm gastric diverticulum versus gastric mass. Recommend comparison with prior studies, consider GI consultation. Review of Systems Status of ROS: Reports: 6 or more systems reviewed and unremarkable except as noted in History and below Medical Decision Making Medical Decision Making Has patient completed a Health Care Directive: Yes PFSH PFSH Medical History Atrial fibrillation with RVR ?I48.91 - Unspecified atrial fibrillation (ICD-10) Hypertension ?I10 - Essential (primary) hypertension (ICD-10) COPD (chronic obstructive pulmonary disease) ?J44.9 - Chronic obstructive pulmonary disease, unspecified (ICD-10) CAD (coronary artery disease) ?I25.10 - Atherosclerotic heart disease of [place] coronary artery without angina pectoris (ICD-10) Peripheral arterial disease ?I73.9 - Peripheral vascular disease, unspecified (ICD-10) BPH (benign prostatic hyperplasia) ?N40.0 - Benign prostatic hyperplasia without lower urinary tract symptoms (ICD-10) Hyperlipidemia ?E78.5 - Hyperlipidemia, unspecified (ICD-10) Former cigarette smoker ?Z87.891 - Personal history of nicotine dependence (ICD-10) Chronic wound of extremity Critical limb ischemia with history of revascularization of same extremity ?I70.229 - Atherosclerosis of [place] arteries of extremities with rest pain, unspecified extremity (ICD-10) ?Z98.890 - Other specified postprocedural states (ICD-10) Hx of ischemic left MCA stroke ?Z86.73 - Personal history of transient ischemic attack (TIA), and cerebral infarction without residual deficits (ICD-10) Chronic anticoagulation ?Z79.01 - intermodal customer service (current) use of anticoagulants (ICD-10) Chronic atrial fibrillation ?I48.20 - Chronic atrial fibrillation, unspecified (ICD-10) Surgical History Hx of coronary angioplasty ?Z98.61 - Coronary angioplasty status (ICD-10) Status post stereotactic brain biopsy ?Z98.890 - Other specified postprocedural states (ICD-10) Peripheral vascular angioplasty status with implants and grafts ?Z95.820 - Peripheral vascular angioplasty status with implants and grafts (ICD-10) S/P femoral-popliteal bypass surgery ?Z95.828 - Presence of other vascular implants and grafts (ICD-10) Social History What is your current living situation?: I presently have a place to live Problems where you live: no known problems Problems where you live details: N/A In the past 12 months, utilities in danger of being shut off: no In past 12 months, lack of transportation kept you from medical appts, meetings, work, or getting things needed for daily living: no In the past 12 mos, have been you worried that your food would run out before you had money to buy more?: never true In the past 12 mos, the food you bought just didn't last and you didn't have money to buy more?: never true Highest level of school completed/degree received: Bachelor's degree Smoking Status: Former smoker Do you use any of these nicotine containing products: None Second hand tobacco smoke exposure: No How often do you have a drink containing alcohol: 4 or more times a week Alcohol type: beer Alcohol type details: 3 beer/day How many standard drinks containing alcohol do you have on a typical day: 3 or 4 How often do you have six or more drinks on one occasion: Less than monthly AUDIT-C Alcohol total score: 6 Non-prescribed substance use: denies use Caffeine: Yes (2 cup of coffee a.m.) How often does anyone, including family, friends and others, physically hurt you: never How often does anyone, including family, friends and others, insult or talk down to you: never How often does anyone, including family, friends and others, threaten you with harm: never How often does anyone, including family, friends and others, scream or curse at you: never service: Yes Meds Home Medications and Allergies Home Medications ?Medication ?Instructions ?Recorded ?Confirmed ?Type apixaban 5 mg tablet (Eliquis) 5 mg PO BID 10/29/23 12/06/24 History albuterol sulfate 90 mcg/actuation 2 puff inhalation QID PRN 10/31/23 12/06/24 History aerosol inhaler fluticasone 250 mcg-salmeterol 50 1 inh inhalation BID 04/05/24 12/06/24 History mcg/dose blistr powdr for inhalation tamsulosin 0.4 mg capsule 0.4 mg PO HS 04/05/24 12/06/24 History metoprolol succinate 100 mg 100 mg PO DAILY 06/12/24 12/06/24 History tablet,extended release 24 hr cholecalciferol (vitamin D3) 25 5,000 unit PO Q OTHER DAY 12/06/24 12/06/24 History mcg (1,000 unit) tablet emollient (Vanicream topical) 1 applic topical DAILY PRN 12/06/24 12/06/24 History empagliflozin 10 mg tablet 10 mg PO DAILY 12/06/24 12/06/24 History furosemide 40 mg tablet 40 mg PO DAILY 12/06/24 12/06/24 History gabapentin 100 mg capsule 100 mg PO TID PRN 12/06/24 12/06/24 History rosuvastatin 20 mg tablet (Crestor) 20 mg PO HS 12/06/24 12/06/24 History sacubitril 24 mg-valsartan 26 mg 1 tab PO BID 12/06/24 12/06/24 History tablet (Entresto) tiotropium 2.5 mcg-olodaterol 2.5 2 inh inhalation DAILY 12/06/24 12/06/24 History mcg/actuation mist for inhalation (Stiolto Respimat) Allergies Allergy/AdvReac Type Severity Reaction Status Date / Time No Known Drug Allergies Allergy Verified 12/06/24 16:26 Exam Narrative: Exam Narrative: Physical exam GENERAL: Comfortable, no acute distress. HEAD AND NECK: Atraumatic, normocephalic CARDIOVASCULAR: Irregular. Normal S1, S2. No murmurs. RESPIRATORY: Clear to auscultation B/L. Decreased air entry on the right side compared to the left side. No wheezes or rhonchi. Bilateral pitting edema. GASTROINTESTINAL: Not tender to palpation. NEUROLOGY: Alert, awake, oriented X 3. Normal speech. PSYCH: Normal mood, normal affect. Const: Vital Signs, click to edit/add: Vital Signs - 24 hr 12/06/24 10:36 12/06/24 10:40 12/06/24 10:41 Temperature 97.3 F L Pulse Rate 126 H 111 H Pulse Rate [Pulse Oximeter] 130 H Respiratory Rate 28 H 19 20 Blood Pressure 99/77 Blood Pressure [Ri ght Upper Arm] 99/77 Pulse Oximetry 94 90 97 Oxygen Delivery Me od Room Air 12/06/24 10:45 12/06/24 11:00 12/06/24 11:15 Temperature Pulse Rate 122 H 103 H 118 H Pulse Rate [Pulse Oximeter] Respiratory Rate 17 19 16 Blood Pressure Blood Pressure [Ri ght Upper Arm] Pulse Oximetry 96 95 [facility] 12[facility]24 11:20 12/06/24 11:30 12/06/24 11:45 Temperature Pulse Rate 107 H 100 112 H Pulse Rate [Pulse Oximeter] Respiratory Rate 15 18 19 Blood Pressure 103/79 Blood Pressure [Ri ght Upper Arm] Pulse Oximetry 97 94 95 [facility] 12/06/24 12:15 12/06/24 12:30 12/06/24 12:45 Temperature Pulse Rate Pulse Rate [Pulse Oximeter] Respiratory Rate 23 13 20 Blood Pressure Blood Pressure [Ri ght Upper Arm] Pulse Oximetry [facility] 12/06/24 13:00 12/06/24 13:15 12/06/24 13:30 Temperature Pulse Rate Pulse Rate [Pulse Oximeter] Respiratory Rate 19 13 17 Blood Pressure Blood Pressure [Ri ght Upper Arm] Pulse Oximetry [facility] 12/06/24 13:45 12/06/24 14:00 Temperature Pulse Rate 118 H Pulse Rate [Pulse Oximeter] Respiratory Rate 21 15 Blood Pressure 101/68 Blood Pressure [Ri ght Upper Arm] Pulse Oximetry 95 [facility] - H&P: Result Labs Labs: Short CBC 12/06/24 Range/Units 10:35 WBC 8.18 (4.50-11.00) K/uL Hgb 13.3 L (13.5-17.5) gm/dL Hct 41.2 (37.0-53.0) % Plt Count 142 (140-440) K/uL BMP 12/06/24 10:35 Sodium 133 L Potassium 4.5 Chloride 98 Carbon Dioxide 21 BUN 24 Creatinine 1.5 Glucose 188 H Calcium 9.0 Cardiac Enzymes 12/06/24 Range/Units 10:35 Troponin I 0.03 (0.01-0.04) ng/mL Liver Function 12/06/24 Range/Units 10:35 Total Bilirubin 1.7 H (0.1-1.5) mg/dL AST 43 H (12-35) U/L ALT 36 (4-50) U/L Alkaline Phosphatase 68 (40-150) U/L Albumin 4.0 (3.3-5.0) g/dL ECG Attestation: I personally reviewed and interpreted this ECG as follows: ECG interpretation date: 12/06/24 Prior ECG tracings: available for review Interpretation: AFib RVR with multiple PVCs, similar to previous EKG in March 2024. No new ischemic changes. Imaging CT scan - chest: Attestation: I have reviewed the pertinent imaging results. Radiologist's impression: INDICATION: Shortness of breath. Elevated D-dimer. TECHNIQUE: CT chest PE was acquired with 95 cc Isovue 370 IV contrast. COMPARISON: None available at the time the study was interpreted. FINDINGS: Heart and vasculature: Cardiomegaly. Atherosclerotic coronary artery calcifications. No filling defects identified within the main, lobar, and contrast opacified portions of the segmental pulmonary arteries. However, several segmental pulmonary arteries are inadequately contrast opacified, and can not be evaluated for acute pulmonary embolus, particularly in the bilateral lower lobes. Lungs and pleura: Moderate right pleural effusion, small left pleural effusion, with associated bilateral lower lobe compressive atelectasis. Additional small areas of loculated pleural fluid versus subsegmental atelectasis in the right middle lobe and lingula. Mild background centrilobular emphysema. Mild septal thickening, compatible with component of pulmonary edema. Lung parenchyma evaluation is limited due to motion artifact, no large focal consolidation or pulmonary masses identified. No evidence of pulmonary infarct. Thyroid and lower neck: No suspicious thyroid nodule. Mediastinum/art: Mildly enlarged mediastinal lymph nodes, which may be reactive. Chest wall: No axillary lymphadenopathy. Upper abdomen: Nodular liver contour, compatible with cirrhosis. Exophytic 3.0 cm gastric diverticulum versus gastric mass (series 4, image 163). Mild ascites. Bones: Multilevel degenerative changes of the spine. Bones are diffusely osteopenic. IMPRESSION: 1. No large central pulmonary embolus identified. However, several segmental pulmonary arteries are inadequately contrast opacified and can not be evaluated for acute pulmonary embolus, particularly in the bilateral lower lobes. 2. Significant cardiomegaly. Moderate right pleural effusion, small left pleural effusion. Mild septal thickening, compatible with component of pulmonary edema. 3. Mildly enlarged mediastinal lymph nodes, which may be reactive. 4. Cirrhotic liver. Mild ascites. Exophytic 3.0 cm gastric diverticulum versus gastric mass. Recommend comparison with prior studies, consider GI consultation. Please note that all CT scans at this facility use dose modulation, iterative reconstruction, and/or weight-based dosing when appropriate to reduce radiation dose to as low as reasonably achievable. Dictated by Earl Batista MD @ 12/06/2024 1:32:35 PM
[2024-12-06] MEDS: DIGOXIN 250 MCG TABLET 500 MCG PO (17:54)
--- NOTE | 2024-12-06 19:25 | PC.NURSE ---
End of Shift ([id number]): Patient admitted to [facility]. Pleasant and cooperative. Afebrile. O2 sats greater than 90% on room air. SOB with activity. Patient up with SBA. Tele showing a-fib with heart rate in the 90s-120. Systolic BP 80-100, see frequent vital signs.. MD aware of heart rate and blood pressure. Patient denies any lightheadedness or dizziness.
[2024-12-06] MEDS: APIXABAN 5 MG TABLET PO (21:02)
[2024-12-06] MEDS: ROSUVASTATIN CALCIUM 10 MG TABLET 20 MG PO (21:03)
[2024-12-06] MEDS: MIDODRINE HCL 5 MG TABLET 10 MG PO (21:05)
[2024-12-06] MEDS: SODIUM CHLORIDE 0.9 % (FLUSH) 10 ML SYRINGE 5 ML IVF (21:05)
[2024-12-06] MEDS: TAMSULOSIN HCL 0.4 MG CAPSULE PO (21:06)
--- NOTE | 2024-12-06 22:52 | PC.NURSE ---
End of shift report [id number]: Pt has been hypotensive throughout this shift, MD George notified and Midodrine was given at med pass. Pt is on RA. Afebrile. Denies pain. Pt did not ambulate out of bed this shift due to low BP, utilized the urinal at bedside. Denies dyspnea at rest. Pt is asymptomatic with low BP, denies dizziness. Pt asked many questions throughout the shift regarding his BP and HR, senior underwriter educated him on the normal range for HR and BP and wrote it on the whiteboard. Pt is resting in bed, call light within reach.
[2024-12-06] MEDS: DIGOXIN 250 MCG TABLET PO (23:43)
[2024-12-07] VITALS (25 sets, daily range): BP systolic 80–119; BP diastolic 54–95; PULSE 71–149; RESP 16–20; TEMP 36.3–36.6; O2SAT 91–99
--- NOTE | 2024-12-07 05:14 | PC.NURSE ---
Shift note: Patient continue to run low on Bp but asymptomatic. Bp set to check every 30 minutes and put in supine position. At 0230, systolic Bp became stabilized above 90. Alert but confused and forgetful. No SOB, light headedness or fever recorded. Patient uses urinal in bed. Patient has been in bed throughout the night. Had adequate sleep.
[2024-12-07] MEDS: MIDODRINE HCL 5 MG TABLET 10 MG PO ×2 (05:34→17:29)
[2024-12-07] MEDS: DIGOXIN 250 MCG TABLET PO (05:34)
[2024-12-07 06:31] LABS: Hematocrit 35.7 % (37.0-53.0); Hemoglobin* 11.7 gm/dL (13.5-17.5); Mean Corpuscular HGB Conc 33 gm/dL (32-36); Mean Corpuscular Hemoglobin 32 pg (26-34); Mean Corpuscular Volume 97 fL (80-100); Red Blood Count 3.70 m/uL (4.30-5.90); White Blood Count* 6.52 K/uL (4.50-11.00)
[2024-12-07 06:37] LABS: Slide Review Reflex No
[2024-12-07 06:52] LABS: Albumin* 3.2 g/dL (3.3-5.0); Chloride* 102 mmol/L (96-114); Potassium* 4.1 mmol/L (3.6-5.1); Sodium* 130 mmol/L (135-149)
[2024-12-07 06:55] LABS: Alanine Aminotransferase* 23 U/L (4-50); Aspartate Amino Transferase* 27 U/L (12-35); Blood Urea Nitrogen* 25 mg/dL (7-30); Creatinine* 1.4 mg/dL (0.5-1.5); Est. Creatinine Clearance* 51.14; Estimated Glomerular Filt Rate 51 ml/min
[2024-12-07 06:56] LABS: Alkaline Phosphatase* 68 U/L (40-150); Anion Gap 8 mEq/L (7-15); Bilirubin Total* 1.3 mg/dL (0.1-1.5); Calcium* 8.6 mg/dL (8.4-10.6); Carbon Dioxide* 20 mmol/L (20-32); Glucose* 103 mg/dL (60-115); Total Protein* 5.6 g/dL (6.0-8.3)
[2024-12-07] MEDS: APIXABAN 5 MG TABLET PO ×2 (08:36→21:05)
[2024-12-07] MEDS: SODIUM CHLORIDE 0.9 % (FLUSH) 10 ML SYRINGE 5 ML IVF ×2 (08:37)
[2024-12-07] MEDS: FUROSEMIDE 10 MG/ML inj 20 MG IVP ×2 (08:43→14:27)
[2024-12-07] MEDS: METOPROLOL SUCCINATE (XL) 50 MG TAB PO ×2 (08:44→21:05)
--- NOTE | 2024-12-07 08:59 | NUTR.NU ---
Addendum entered and electronically signed by Jane Dove 12/07/24 09:59: RDN with MD consult for diarrhea > 3 days and heart failure. RDN visited patient and RN, both report no diarrhea noted recently. Per chart review, no diarrhea noted. Heart failure nutrition education provided. See below. RDN will continue to follow prn. Original Note: RDN with nutrition screen for a heart healthy diet. Patient admitted with dyspnea on exertion and heart failure exacerbation. Medical history includes, but not limited to atrial fibrillation with RVR, TITA, CAD, peripheral arterial disease, COPD, hyperglycemia, and cirrhotic liver with mild ascites. Patient reports a good appetite with eating 2 meals/day with a snack. Per hydrometallurgical engineer, patient consumed 100% at dinner yesterday. Current weight 197lb, height 6ft 3in, and BMI 24.7kg/m2. Weight fluctuations noted per weight history likely related to fluid status and current diagnosis. Weight hx: 190lbs 06/18/24, 186lbs 04/08/24, 02/09/24 200lbs. Patient was accepting of nutrition education for heart failure. Patient reports being mindful of sodium he adds at mealtimes and when cooking, but does consume higher sodium foods such as hotdogs and spam. Patient declined verbal education for designated caregiver and will pass along the handouts provided. Nutrition education provided on a low sodium diet related to heart failure.? Verbal and written information provided. Recommend limiting sodium to 2,000 mg per day.? Discussed foods recommended and to avoid.?Also discussed limiting saturated fat intake. Handouts provided from [facility] on heart failure nutrition therapy, sodium content of foods, heart healthy label reading tips, sodium-free flavoring tips and heart healthy cooking and shopping tips. Patient verbalized understanding.?RDN's contact information was provided and patient was encouraged to call with questions.? RDN will follow-up prn.
--- NOTE | 2024-12-07 09:00 | P.IMPN_ITS ---
Assessment and Plan Assessment and plan (1) Dyspnea on exertion: Problem comment: - Differential diagnosis includes: Exacerbation of congestive heart failure, less likely bilateral lower lobes segmental PE as CTA was with inadequate contrast in the segm periph arteries. In addition, patient was not hypoxic on presentation, his tachycardia was not sinus it was irregular and likely secondary to his chronic AFib RVR. CT scan did not show right heart strain and troponin was negative. D-dimer mildly elevated. My exam did not suggest DVT, but if patient develops more signs or symptoms we could repeat CTA chest and may consider bilateral lower extremity venous Doppler. Currently patient is on Eliquis and is compliant on it. - Troponin is negative x2. BNP elevated at 9800 as compared to previous. EKG shows AFib with frequent PVCs (similar to previous EKG). - D-dimer mildly elevated at 1.1. CTA chest was done and it showed the following: No large central pulmonary embolus identified. However, several segmental pulmonary arteries are inadequately contrast opacified and can not be evaluated for acute pulmonary embolus, particularly in the bilateral lower lobes. Moderate right pleural effusion, small left pleural effusion. Mild septal thickening, compatible with component of pulmonary edema. - patient is on GDMT: Beta-timothy, Entresto, SGLT 2 inhibitor. - patient is on furosemide 40 mg daily he said it was increased a month ago, previously he used to be on furosemide 20 mg daily. - Echo 04/06: Mildly reduced global systolic function with an estimated EF of 40 - 45%. global systolic RV function is mildly reduced, mild to moderate mitral regurgitation. Moderate tricuspid regurgitation. Elevated estimated pulmonary pressures by tricuspid regurgitation velocity and right atrial pressure (30 mmHg plus RAP). - Ordered repeat echo - daily weight - patient will need diuresis, taking into consideration his low blood pressure on admission. - will need to control his heart rate (Hx of AFib), as he presented with Afib w/ rapid ventricular response. - optimize guideline-directed medical therapy for heart failure with reduced ejection fraction: for now change metoprolol succinate to 50 mg po BID, stop sacubitril-valsartan (entresto), stop empagliflozin, change furosemide to 20 mg IV BID Status: Acute (2) HFrEF (heart failure with reduced ejection fraction): Problem comment: - patient is on GDMT: Beta-timothy, Entresto, SGLT 2 inhibitor - change metoprolol succinate to 50 mg po bid, stop entresto and empagliflozin for now - patient is on furosemide 40 mg daily he said it was increased a month ago, previously he used to be on furosemide 20 mg daily. - Echo 04/06: Mildly reduced global systolic function with an estimated EF of 40 - 45%. global systolic RV function is mildly reduced, mild to moderate mitral regurgitation. Moderate tricuspid regurgitation. Elevated estimated pulmonary pressures by tricuspid regurgitation velocity and right atrial pressure (30 mmHg plus RAP). - repeat echo Status: Acute (3) Atrial fibrillation with RVR: Problem comment: - on metoprolol succinate 100 mg daily, will change to 50 mg po bid. - anticoagulated on Eliquis - on telemetry Status: Inactive (4) TITA (acute kidney injury): Problem comment: -patient has creatinine baseline is 0.8, today he came in with creatinine of 1.5. -differential diagnosis: Could be related to congestive heart failure, patient will need diuresis. -repeat labs Status: Acute (5) CAD (coronary artery disease): Problem comment: -01/2020 drug eluting stent placement to his mid LAD and mid LCx Status: Acute (6) Peripheral arterial disease: Problem comment: - hx of left femoral-PT bypass in 2019 - chronic swelling in the left leg/ankle - has had issues with chronic wounds in bilateral extremities - Consider compression stockings Status: Acute (7) Chronic anticoagulation: Problem comment: - Apixaban 5 mg BID for a fib Status: Acute (8) COPD (chronic obstructive pulmonary disease): Problem comment: -no exacerbation of COPD at this admission -former smoker -CXR showing COPD with prominent bronchovascular markings. -on advair and albuterol -DuoNebs ordered prn Continue home medications on discharge Status: Acute (9) Hyperglycemia: Problem comment: - A1c 5.9 in 03/30 -Further outpatient follow-up with PCP Status: Acute (10) Hyperlipidemia: Problem comment: - Continue statin Status: Acute (11) Abnormal finding on imaging of liver: Problem comment: - CTA chest on admission showed: Cirrhotic liver. Mild ascites. Exophytic 3.0 cm gastric diverticulum versus gastric mass. - patient will need to follow-up with his PCP and may need a GI consultation as an outpatient. Status: Acute (12) Abnormal CT scan, stomach: Problem comment: - CTA chest on admission showed: Cirrhotic liver. Mild ascites. Exophytic 3.0 cm gastric diverticulum versus gastric mass. - patient will need to follow-up with his PCP and may need a GI consultation as an outpatient. Status: Acute (13) Cardiogenic shock: Problem comment: - 12/07/2024: Systolic blood pressures on admission were as low as 70-80 mmHg. Initiated midodrine 10 mg p.o. b.i.d.. Systolic blood pressures 100-110 mmHg this morning - Continue with efforts to manage his heart failure and assess his heart failure. Status: Acute Plan 1. Reviewed impression, plans, recommendations with patient 2. Answered his questions to his satisfaction 3. Try to assure him that has nearly as we can tell he is not actively dying, which is a concern of his 4. Patient agreeable with above stated plans recommendation Total Time Spent Total Time Spent: 50 minutes Subjective Date Seen: 12/07/24 Interval history: Admission history of present illness: ?79 year old male with past medical history of atrial fibrillation on Eliquis, coronary artery disease status post PCI in 2019, heart failure with reduced ejection fraction, history of stroke in 2019, COPD and peripheral arterial disease who presents to the ED complaining of dyspnea on exertion for the past few days. I interviewed the patient while his daughter came was there. Both the patient and the family states that he started to feel unwell about 5 days-7 days ago. Patient states that for the past couple of days he thinks that he would be short of breath walking a short distance and thus he was not able to do his regular ADLs. He states that he does not have orthopnea but they said that his weight increased by 7-9 lb in the past week. He denies history of DVT/PE. He confirms that he takes his medications including Eliquis 5 mg twice daily religiously. He took his morning medications already. Patient states that he was told that he has chronic pleural effusion. Both the patient and the family does not know of any liver cirrhosis/fibrosis history but patient states that he drinks of 2 beers every night for a long time. Patient denies fevers, cough or phlegm. He also denies chest pain/discomfort or palpitations. At the ED, patient was tachycardic in the 130s on presentation, hypotensive with blood pressure of about 85/50 mm Hg. WBCs within normal limits, labs suggest TITA w/ Cr 1.5 (previously 0.8). Troponin is negative x2. BNP elevated at 9800 as compared to previous. EKG shows AFib with frequent PVCs (similar to previous EKG). D-dimer mildly elevated at 1.1. CTA chest was done and it showed the following: No large central pulmonary embolus identified. However, several segmental pulmonary arteries are inadequately contrast opacified and can not be evaluated for acute pulmonary embolus, particularly in the bilateral lower lobes. Moderate right pleural effusion, small left pleural effusion. Mild septal thickening, compatible with component of pulmonary edema. Cirrhotic liver. Mild ascites. Exophytic 3.0 cm gastric diverticulum versus gastric mass. Recommend comparison with prior studies, consider GI consultation. 12/07/2024, hospital day 2. Continues to have dyspnea with exertion and with conversation. Denies paroxysmal nocturnal dyspnea orthopnea. Little sleep last night due to various measurements and activities. Denies orthostasis, lightheadedness, syncope or near syncope. Admittedly anxious about living and dying. Tells me how to friends last week. Exam Narrative: Exam Narrative: Exam patient in his hospital room. When I 1st walk into his hospital room he is sound asleep laying supine on his bed. He is having apneic episodes lasting up to 15 seconds. He awakens easily and engages meaningfully in dialogue. Vision and hearing are adequate. Alert and oriented x4. With head of bed elevated at 60? he has jugular venous distention and hepatojugular reflux. Dependent edema up to his knees bilaterally. Decreased breath sounds in bases right more so than left, otherwise lungs are clear to auscultation. Heart tones with regular rhythm, normal S1-S2, S3 matthew Abdomen with active bowel sounds, soft, non-tender No focl motor neurological deficits Const: Vital Signs, click to edit/add: Vital Signs - 24 hr 12/06/24 10:36 12/06/24 10:40 12/06/24 10:41 Temperature 97.3 F L Pulse Rate 126 H 111 H Pulse Rate [Left A pical] Pulse Rate [Left P ulse Oximeter] Pulse Rate [Pulse Oximeter] 130 H Respiratory Rate 28 H 19 20 Blood Pressure 99/77 Blood Pressure [Le ft Arm] Blood Pressure [Ri ght Arm] Blood Pressure [Ri ght Upper Arm] 99/77 Pulse Oximetry 94 90 97 Oxygen Delivery [facility] Room Air 12/06/24 10:45 12/06/24 11:00 12/06/24 11:15 Temperature Pulse Rate 122 H 103 H 118 H Pulse Rate [Left A pical] Pulse Rate [Left P ulse Oximeter] Pulse Rate [Pulse Oximeter] Respiratory Rate 17 19 16 Blood Pressure Blood Pressure [Le ft Arm] Blood Pressure [Ri ght Arm] Blood Pressure [Ri ght Upper Arm] Pulse Oximetry 96 95 93 Oxygen Delivery [facility] 12/06/24 11:20 12/06/24 11:30 12/06/24 11:45 Temperature Pulse Rate 107 H 100 112 H Pulse Rate [Left A pical] Pulse Rate [Left P ulse Oximeter] Pulse Rate [Pulse Oximeter] Respiratory Rate 15 18 19 Blood Pressure 103/79 Blood Pressure [Le ft Arm] Blood Pressure [Ri ght Arm] Blood Pressure [Ri ght Upper Arm] Pulse Oximetry 97 94 95 Oxygen Delivery [facility] 12/06/24 12:15 12/06/24 12:30 12/06/24 12:45 Temperature Pulse Rate Pulse Rate [Left A pical] Pulse Rate [Left P ulse Oximeter] Pulse Rate [Pulse Oximeter] Respiratory Rate 23 13 20 Blood Pressure Blood Pressure [Le ft Arm] Blood Pressure [Ri ght Arm] Blood Pressure [Ri ght Upper Arm] Pulse Oximetry Oxygen Delivery [facility] 12/06/24 13:00 12/06/24 13:15 12/06/24 13:30 Temperature Pulse Rate Pulse Rate [Left A pical] Pulse Rate [Left P ulse Oximeter] Pulse Rate [Pulse Oximeter] Respiratory Rate 19 13 17 Blood Pressure Blood Pressure [Le ft Arm] Blood Pressure [Ri ght Arm] Blood Pressure [Ri ght Upper Arm] Pulse Oximetry Oxygen Delivery [facility] 12/06/24 13:45 12/06/24 14:00 12/06/24 15:51 Temperature 98.2 F Pulse Rate 118 H Pulse Rate [Left A pical] 98 Pulse Rate [Left P ulse Oximeter] Pulse Rate [Pulse Oximeter] Respiratory Rate 21 15 22 Blood Pressure 101/68 Blood Pressure [Le ft Arm] Blood Pressure [Ri ght Arm] 106/78 Blood Pressure [Ri ght Upper Arm] Pulse Oximetry 95 95 Oxygen Delivery [facility] Room Air 12/06/24 15:51 12/06/24 16:00 12/06/24 16:30 Temperature Pulse Rate Pulse Rate [Left A pical] 104 H 92 Pulse Rate [Left P ulse Oximeter] Pulse Rate [Pulse Oximeter] Respiratory Rate 22 Blood Pressure Blood Pressure [Le ft Arm] Blood Pressure [Ri ght Arm] 105/91 H 102/87 Blood Pressure [Ri ght Upper Arm] Pulse Oximetry Oxygen Delivery [facility] 12/06/24 16:45 12/06/24 17:00 12/06/24 17:30 Temperature Pulse Rate 114 H Pulse Rate [Left A pical] 100 106 H Pulse Rate [Left P ulse Oximeter] Pulse Rate [Pulse Oximeter] Respiratory Rate Blood Pressure Blood Pressure [Le ft Arm] Blood Pressure [Ri ght Arm] 88/69 L 99/82 Blood Pressure [Ri ght Upper Arm] Pulse Oximetry Oxygen Delivery [facility] 12/06/24 17:54 12/06/24 18:00 12/06/24 18:30 Temperature Pulse Rate 113 H Pulse Rate [Left A pical] 109 H 118 H Pulse Rate [Left P ulse Oximeter] Pulse Rate [Pulse Oximeter] Respiratory Rate Blood Pressure Blood Pressure [Le ft Arm] Blood Pressure [Ri ght Arm] 96/81 80/61 L Blood Pressure [Ri ght Upper Arm] Pulse Oximetry Oxygen Delivery [facility] 12/06/24 19:00 12/06/24 19:25 12/06/24 20:00 Temperature 97.6 F Pulse Rate Pulse Rate [Left A pical] 100 Pulse Rate [Left P ulse Oximeter] 93 Pulse Rate [Pulse Oximeter] Respiratory Rate 20 Blood Pressure Blood Pressure [Le ft Arm] Blood Pressure [Ri ght Arm] 82/53 L 89/58 L 88/72 L Blood Pressure [Ri ght Upper Arm] Pulse Oximetry 94 Oxygen Delivery [facility] Room Air 12/06/24 20:30 12/06/24 20:34 12/06/24 20:41 Temperature Pulse Rate Pulse Rate [Left A pical] Pulse Rate [Left P ulse Oximeter] Pulse Rate [Pulse Oximeter] Respiratory Rate Blood Pressure Blood Pressure [Le ft Arm] 73/21 L 62/52 L Blood Pressure [Ri ght Arm] 85/64 L Blood Pressure [Ri ght Upper Arm] Pulse Oximetry [facility] 12/06/24 21:00 12/06/24 21:09 12/06/24 21:47 Temperature Pulse Rate Pulse Rate [Left A pical] Pulse Rate [Left P ulse Oximeter] Pulse Rate [Pulse Oximeter] Respiratory Rate Blood Pressure Blood Pressure [Le ft Arm] Blood Pressure [Ri ght Arm] 84/27 L 87/67 L 96/77 Blood Pressure [Ri ght Upper Arm] Pulse Oximetry [facility] 12/06/24 22:04 12/06/24 22:30 12/06/24 23:00 Temperature Pulse Rate Pulse Rate [Left A pical] Pulse Rate [Left P ulse Oximeter] Pulse Rate [Pulse Oximeter] Respiratory Rate Blood Pressure Blood Pressure [Le ft Arm] Blood Pressure [Ri ght Arm] 95/78 87/60 L 90/72 Blood Pressure [Ri ght Upper Arm] Pulse Oximetry Oxygen Delivery [facility] 12/06/24 23:00 12/06/24 23:00 12/06/24 23:00 Temperature Pulse Rate 100 Pulse Rate [Left A pical] Pulse Rate [Left P ulse Oximeter] 100 Pulse Rate [Pulse Oximeter] Respiratory Rate 20 Blood Pressure Blood Pressure [Le ft Arm] Blood Pressure [Ri ght Arm] Blood Pressure [Ri ght Upper Arm] Pulse Oximetry 93 Oxygen Delivery [facility] 12/06/24 23:41 12/06/24 23:43 12/07/24 00:00 Temperature 97.6 F Pulse Rate 100 Pulse Rate [Left A pical] Pulse Rate [Left P ulse Oximeter] 100 99 Pulse Rate [Pulse Oximeter] Respiratory Rate 20 Blood Pressure Blood Pressure [Le ft Arm] 90/69 Blood Pressure [Ri ght Arm] 89/66 L Blood Pressure [Ri ght Upper Arm] Pulse Oximetry 93 Oxygen Delivery [facility] Room Air 12/07/24 00:30 12/07/24 01:00 12/07/24 01:30 Temperature Pulse Rate Pulse Rate [Left A pical] Pulse Rate [Left P ulse Oximeter] 100 110 H 98 Pulse Rate [Pulse Oximeter] Respiratory Rate Blood Pressure Blood Pressure [Le ft Arm] Blood Pressure [Ri ght Arm] 83/70 L 91/65 102/78 Blood Pressure [Ri ght Upper Arm] Pulse Oximetry Oxygen Delivery [facility] 12/07/24 02:32 12/07/24 03:00 12/07/24 03:30 Temperature 97.8 F Pulse Rate Pulse Rate [Left A pical] Pulse Rate [Left P ulse Oximeter] 94 97 100 Pulse Rate [Pulse Oximeter] Respiratory Rate 20 Blood Pressure Blood Pressure [Le ft Arm] Blood Pressure [Ri ght Arm] 100/70 89/75 L 105/72 Blood Pressure [Ri ght Upper Arm] Pulse Oximetry 92 Oxygen Delivery [facility] Room Air 12/07/24 04:00 12/07/24 07:00 12/07/24 07:30 Temperature 97.7 F Pulse Rate 84 Pulse Rate [Left A pical] Pulse Rate [Left P ulse Oximeter] 98 92 Pulse Rate [Pulse Oximeter] Respiratory Rate 16 Blood Pressure Blood Pressure [Le ft Arm] 111/81 Blood Pressure [Ri ght Arm] 100/82 Blood Pressure [Ri ght Upper Arm] Pulse Oximetry 92 Oxygen Delivery [facility] Room Air 12/07/24 08:00 12/07/24 08:30 Temperature Pulse Rate Pulse Rate [Left A pical] Pulse Rate [Left P ulse Oximeter] 103 H 113 H Pulse Rate [Pulse Oximeter] Respiratory Rate Blood Pressure Blood Pressure [Le ft Arm] 103/80 115/92 H Blood Pressure [Ri ght Arm] Blood Pressure [Ri ght Upper Arm] Pulse Oximetry Oxygen Delivery [facility] Labs Labs: Laboratory Results - last 24 hr 12/06/24 12/06/24 12/06/24 10:35 11:05 12:21 WBC 8.18 RBC 4.20 L Hgb 13.3 L Hct 41.2 MCV 98 MCH 32 MCHC 32 RDW Coeff of Ashley 17.0 H Plt Count 142 Neut % (Auto) 81.3 H Lymph % (Auto) 11.4 L [place] % (Auto) 5.7 Eos % (Auto) 1.0 Baso % (Auto) 0.4 Neut # (Auto) 6.70 Lymph # (Auto) 0.90 [place] # (Auto) 0.50 Eos # (Auto) 0.08 Baso # (Auto) 0.03 Abs Immat Gran (auto) 0.02 Imm/Tot Granulo (auto) 0.2 D-Dimer Quant (PE/DVT) 1.14 H Sodium 133 L Potassium 4.5 Chloride 98 Carbon Dioxide 21 Anion Gap 14 BUN 24 Creatinine 1.5 Estimated Creat Clear 47.73 Estimated GFR 47 Glucose 188 H Calcium 9.0 Magnesium Total Bilirubin 1.7 H AST 43 H ALT 36 Alkaline Phosphatase 68 Troponin I 0.03 C-Reactive Protein NT-Pro-B Natriuret Pep 9800 H Total Protein 6.6 Albumin 4.0 SARS-CoV-2 (PCR) Influenza Type A (PCR) Influenza Type B (PCR) RSV (PCR) POC Troponin I 0.04 0.02 12/06/24 12/07/24 12:40 06:00 WBC 6.52 RBC 3.70 L Hgb 11.7 L Hct 35.7 L MCV 97 MCH 32 MCHC 33 RDW Coeff of Ashley Plt Count 126 L Neut % (Auto) Lymph % (Auto) [place] % (Auto) Eos % (Auto) Baso % (Auto) Neut # (Auto) Lymph # (Auto) [place] # (Auto) Eos # (Auto) Baso # (Auto) Abs Immat Gran (auto) Imm/Tot Granulo (auto) D-Dimer Quant (PE/DVT) Sodium 130 L Potassium 4.1 Chloride 102 Carbon Dioxide 20 Anion Gap 8 BUN 25 Creatinine 1.4 Estimated Creat Clear 51.14 Estimated GFR 51 Glucose 103 Calcium 8.6 Magnesium 2.1 Total Bilirubin 1.3 AST 27 ALT 23 Alkaline Phosphatase 68 Troponin I C-Reactive Protein 0.5 NT-Pro-B Natriuret Pep Total Protein 5.6 L Albumin 3.2 L SARS-CoV-2 (PCR) Negative SARS-CoV-2 Influenza Type A (PCR) Negative PCR FLU A Influenza Type B (PCR) Negative PCR FLU B RSV (PCR) Negative PCR RSV POC Troponin I Imaging CT scan - chest: Attestation: I have reviewed the pertinent imaging results. Radiologist's impression: FINDINGS: Heart and vasculature: Cardiomegaly. Atherosclerotic coronary artery calcifications. No filling defects identified within the main, lobar, and contrast opacified portions of the segmental pulmonary arteries. However, several segmental pulmonary arteries are inadequately contrast opacified, and can not be evaluated for acute pulmonary embolus, particularly in the bilateral lower lobes. Lungs and pleura: Moderate right pleural effusion, small left pleural effusion, with associated bilateral lower lobe compressive atelectasis. Additional small areas of loculated pleural fluid versus subsegmental atelectasis in the right middle lobe and lingula. Mild background centrilobular emphysema. Mild septal thickening, compatible with component of pulmonary edema. Lung parenchyma evaluation is limited due to motion artifact, no large focal consolidation or pulmonary masses identified. No evidence of pulmonary infarct. Thyroid and lower neck: No suspicious thyroid nodule. Mediastinum/art: Mildly enlarged mediastinal lymph nodes, which may be reactive. Chest wall: No axillary lymphadenopathy. Upper abdomen: Nodular liver contour, compatible with cirrhosis. Exophytic 3.0 cm gastric diverticulum versus gastric mass (series 4, image 163). Mild ascites. Bones: Multilevel degenerative changes of the spine. Bones are diffusely osteopenic. IMPRESSION: 1. No large central pulmonary embolus identified. However, several segmental pulmonary arteries are inadequately contrast opacified and can not be evaluated for acute pulmonary embolus, particularly in the bilateral lower lobes. 2. Significant cardiomegaly. Moderate right pleural effusion, small left pleural effusion. Mild septal thickening, compatible with component of pulmonary edema. 3. Mildly enlarged mediastinal lymph nodes, which may be reactive. 4. Cirrhotic liver. Mild ascites. Exophytic 3.0 cm gastric diverticulum versus gastric mass. Recommend comparison with prior studies, consider GI consultation. Please note that all CT scans at this facility use dose modulation, iterative reconstruction, and/or weight-based dosing when appropriate to reduce radiation dose to as low as reasonably achievable.
--- NOTE | 2024-12-07 14:07 | PC.SOCIAL ---
out of school hours care worker completed the Initial Psychosocial Assessment with the pt and will have to finish some of the questions later as the pt's lunch came and he wanted to eat... Initial Psychosocial Assessment: 1.? Assessment completed with: Patient, Spouse, Child, Friend, Other: Patient. 2.? Pt lives at address and phone number on face sheet? Own home; facility , [place] 3.?Insurance information? on face sheet is correct? Yes. 4.?Contacts? on face sheet are correct? Yes. 5.? Does pt have a Healthcare Directive, POLST or Guardian? States that he has started working on a Health Care Directive, but hasn't finished it. 6.? Who is the pt?s main source/sources of emotional/physical support? Three daughters. 7.? Prior to admission did pt need assistance? Yes/No No. 8.? Who provided and what was the assistance needed? N/A. 9.? Was Home Health being provided, by what agency? No. 10. Does pt use/have medical equipment at home already? What? Canes that he does not use. 11. Will there be a need for additional assistance at discharge and is this available in previous setting? 12. If pt needs to go to a higher level of care, are they open to this and do they have facilities they are interested in? 13. How would pt plan to transport at discharge? Daughter. 14. Is there anyone pt would like nursing home social worker to contact to discuss discharge plans? No. Social work to follow-up as needed.
--- NOTE | 2024-12-07 14:53 | PC.NURSE ---
Pt is doing well today. Pleasant to care for. A&Ox4, intermittently forgetful. Pt continues to have soft BP's and an elevated heart rate. Pt is ambulating with stand by assist, SOB with activity has resolved. Pt denies dizziness or lightheadedness with activity. Pt reports feeling much stronger today than he did yesterday. Tolerating regular diet. Having adequate urine output. Pt is resting well at this time.
[2024-12-07] MEDS: ROSUVASTATIN CALCIUM 10 MG TABLET 20 MG PO (21:05)
[2024-12-07] MEDS: TAMSULOSIN HCL 0.4 MG CAPSULE PO (21:05)
--- NOTE | 2024-12-07 23:26 | PC.NURSE ---
end of shift: Pt is AOx4. Pt is forgetful. Pt daughter bedside. Medication education provided. Pt. AMB w/ SBA. Pt. up to chair for supper. Pt. denies pain and nausea. +2 pitting edema in bilateral LE. Pt. resting comfortably in bed, call light w/i reach.
[2024-12-08] VITALS (9 sets, daily range): BP systolic 96–116; BP diastolic 65–80; PULSE 64–113; RESP 17–20; TEMP 36.4–36.9; O2SAT 90–95
[2024-12-08] MEDS: MIDODRINE HCL 5 MG TABLET 10 MG PO ×2 (05:29→18:11)
--- NOTE | 2024-12-08 05:57 | PC.NURSE ---
End of shift report [id number]: Jayjay x4 but is forgetful at times. VSS. Afebrile. Denies pain. Pt ambulates SBA. Pt is on 2000 ml fluid restriction. Pt has BLE 2+ pitting edema. Pt is resting in bed, call light within reach.?
[2024-12-08] MEDS: FUROSEMIDE 10 MG/ML inj 20 MG IVP (08:24)
[2024-12-08] MEDS: SODIUM CHLORIDE 0.9 % (FLUSH) 10 ML SYRINGE 5 ML IVF ×2 (08:26→20:34)
[2024-12-08] MEDS: APIXABAN 5 MG TABLET PO ×2 (09:36→20:35)
[2024-12-08] MEDS: METOPROLOL SUCCINATE (XL) 50 MG TAB PO ×2 (09:36→20:34)
[2024-12-08] MEDS: DIGOXIN 125 MCG TABLET PO (09:37)
[2024-12-08] MEDS: SPIRONOLACTONE 25 MG TABLET 12.5 MG PO (10:33)
--- NOTE | 2024-12-08 12:43 | PC.SOCIAL ---
Discharge planning: community center worker finished the following questions from the Initial Psychosocial Assessment: 11.? Will there be a need for additional assistance at discharge and is this available in previous setting? Not at this time. 12.? If pt needs to go to a higher level of care, are they open to this and do they have facilities they are interested in? N/A. Social work to follow-up as needed.
--- NOTE | 2024-12-08 13:48 | P.IMPN_ITS ---
Assessment and Plan Assessment and plan (1) Dyspnea on exertion: Problem comment: - Differential diagnosis includes: Exacerbation of congestive heart failure, less likely bilateral lower lobes segmental PE as CTA was with inadequate contrast in the segm periph arteries. In addition, patient was not hypoxic on presentation, his tachycardia was not sinus it was irregular and likely secondary to his chronic AFib RVR. CT scan did not show right heart strain and troponin was negative. D-dimer mildly elevated. My exam did not suggest DVT, but if patient develops more signs or symptoms we could repeat CTA chest and may consider bilateral lower extremity venous Doppler. Currently patient is on Eliquis and is compliant on it. - Troponin is negative x2. BNP elevated at 9800 as compared to previous. EKG shows AFib with frequent PVCs (similar to previous EKG). - D-dimer mildly elevated at 1.1. CTA chest was done and it showed the following: No large central pulmonary embolus identified. However, several segmental pulmonary arteries are inadequately contrast opacified and can not be evaluated for acute pulmonary embolus, particularly in the bilateral lower lobes. Moderate right pleural effusion, small left pleural effusion. Mild septal thickening, compatible with component of pulmonary edema. - patient is on GDMT: Beta-timothy, Entresto, SGLT 2 inhibitor. - patient is on furosemide 40 mg daily he said it was increased a month ago, previously he used to be on furosemide 20 mg daily. - Echo 04/06: Mildly reduced global systolic function with an estimated EF of 40 - 45%. global systolic RV function is mildly reduced, mild to moderate mitral regurgitation. Moderate tricuspid regurgitation. Elevated estimated pulmonary pressures by tricuspid regurgitation velocity and right atrial pressure (30 mmHg plus RAP). - Ordered repeat echo - daily weight - patient will need diuresis, taking into consideration his low blood pressure on admission. - will need to control his heart rate (Hx of AFib), as he presented with Afib w/ rapid ventricular response. - optimize guideline-directed medical therapy for heart failure with reduced ejection fraction: for now change metoprolol succinate to 50 mg po BID, stop sacubitril-valsartan (entresto), stop empagliflozin, change furosemide to 20 mg IV BID Status: Acute (2) HFrEF (heart failure with reduced ejection fraction): Problem comment: - patient is on GDMT: Beta-timothy, Entresto, SGLT 2 inhibitor - change metoprolol succinate to 50 mg po bid, stop entresto and empagliflozin for now - patient is now on furosemide 40 mg po daily and said it was increased a month ago from furosemide 20 mg po daily. - Echo 04/06/2024: Mildly reduced global systolic function with an estimated EF of 40 - 45%. global systolic RV function is mildly reduced, mild to moderate mitral regurgitation. Moderate tricuspid regurgitation. Elevated estimated pulmonary pressures by tricuspid regurgitation velocity and right atrial pressure (30 mmHg plus RAP). - EDEN 12/07/2024: LVEF 25-30%, mild LV dilatation; moderately dilated RV with moderately reduced global function; moderate TR; [id number] MR; severe bi- atrial enlargement; moderate pulmonary hypertension with estimated right ventricular systolic pressure 45 mmHg plus right atrial pressure, right atrial pressure of 15 mmHg, for a total pulmonary artery systolic pressure estimate of 60 mmHg. - 12/08/2024: stop IV furosemide 20 mg twice daily, and start furosemide 40 mg po twice daily; start spironolactone 12.5 mg po daily; start lisinopril 2.5 mg po daily; continue to monitor VS and weights and physical ability Status: Acute (3) Atrial fibrillation with RVR: Problem comment: - on metoprolol succinate 100 mg daily, will change to 50 mg po bid. - anticoagulated on Eliquis - on telemetry with resting HR 70-90 Status: Inactive (4) TITA (acute kidney injury): Problem comment: -patient has creatinine baseline is 0.8, today he came in with creatinine of 1.5. -differential diagnosis: Could be related to congestive heart failure, patient will need diuresis. -repeat labs Status: Acute (5) CAD (coronary artery disease): Problem comment: -01/2020 drug eluting stent placement to his mid LAD and mid LCx Status: Acute (6) Peripheral arterial disease: Problem comment: - hx of left femoral-PT bypass in 2019 - chronic swelling in the left leg/ankle - has had issues with chronic wounds in bilateral extremities - Consider compression stockings Status: Acute (7) Chronic anticoagulation: Problem comment: - Apixaban 5 mg BID for a fib Status: Acute (8) COPD (chronic obstructive pulmonary disease): Problem comment: -no exacerbation of COPD at this admission -former smoker -CXR showing COPD with prominent bronchovascular markings. -on advair and albuterol -DuoNebs ordered prn Continue home medications on discharge Status: Acute (9) Hyperglycemia: Problem comment: - A1c 5.9 in 03/30 -Further outpatient follow-up with PCP Status: Acute (10) Hyperlipidemia: Problem comment: - Continue statin Status: Acute (11) Abnormal finding on imaging of liver: Problem comment: - CTA chest on admission showed: Cirrhotic liver. Mild ascites. Exophytic 3.0 cm gastric diverticulum versus gastric mass. - patient will need to follow-up with his PCP and may need a GI consultation as an outpatient. Status: Acute (12) Abnormal CT scan, stomach: Problem comment: - CTA chest on admission showed: Cirrhotic liver. Mild ascites. Exophytic 3.0 cm gastric diverticulum versus gastric mass. - patient will need to follow-up with his PCP and may need a GI consultation as an outpatient. Status: Acute (13) Cardiogenic shock: Problem comment: - 12/07/2024: Systolic blood pressures on admission were as low as 70-80 mmHg. Initiated midodrine 10 mg p.o. b.i.d.. Systolic blood pressures 100-110 mmHg this morning - Continue with efforts to manage his heart failure and assess his heart failure. Status: Acute Plan 1. Reviewed impression, plans, recommendations with patient and daughter, including that we need to change his medication regimen to home going medication and see how he does overnight before deciding about possible discharge 2. Answered their questions to their satisfaction 3. They are agreeable with above stated plans and recommendations Total Time Spent Total Time Spent: 35 minutes Subjective Date Seen: 12/08/24 Interval history: Admission history of present illness: ?79 year old male with past medical history of atrial fibrillation on Eliquis, coronary artery disease status post PCI in 2019, heart failure with reduced ejection fraction, history of stroke in 2019, COPD and peripheral arterial disease who presents to the ED complaining of dyspnea on exertion for the past few days. I interviewed the patient while his daughter came was there. Both the patient and the family states that he started to feel unwell about 5 days-7 days ago. Patient states that for the past couple of days he thinks that he would be short of breath walking a short distance and thus he was not able to do his regular ADLs. He states that he does not have orthopnea but they said that his weight increased by 7-9 lb in the past week. He denies history of DVT/PE. He confirms that he takes his medications including Eliquis 5 mg twice daily religiously. He took his morning medications already. Patient states that he was told that he has chronic pleural effusion. Both the patient and the family does not know of any liver cirrhosis/fibrosis history but patient states that he drinks of 2 beers every night for a long time. Patient denies fevers, cough or phlegm. He also denies chest pain/discomfort or palpitations. At the ED, patient was tachycardic in the 130s on presentation, hypotensive with blood pressure of about 85/50 mm Hg. WBCs within normal limits, labs suggest TITA w/ Cr 1.5 (previously 0.8). Troponin is negative x2. BNP elevated at 9800 as compared to previous. EKG shows AFib with frequent PVCs (similar to previous EKG). D-dimer mildly elevated at 1.1. CTA chest was done and it showed the following: No large central pulmonary embolus identified. However, several segmental pulmonary arteries are inadequately contrast opacified and can not be evaluated for acute pulmonary embolus, particularly in the bilateral lower lobes. Moderate right pleural effusion, small left pleural effusion. Mild septal thickening, compatible with component of pulmonary edema. Cirrhotic liver. Mild ascites. Exophytic 3.0 cm gastric diverticulum versus gastric mass. Recommend comparison with prior studies, consider GI consultation. 12/07/2024, hospital day 2. Continues to have dyspnea with exertion and with conversation. Denies paroxysmal nocturnal dyspnea orthopnea. Little sleep last night due to various measurements and activities. Denies orthostasis, lightheadedness, syncope or near syncope. Admittedly anxious about living and dying. Tells me how to friends last week. 12/08/2024: Hospital day 3. He did realize how dyspneic he was with exertion until this morning when he notes he is starting to feel better than previously. Denies orthostasis. Tolerating diuresis. Diet is slowly returning. Able to tolerate more activity now. Exam Narrative: Exam Narrative: Examine him in his hospital room. Appears comfortable. Vision and hearing are adequate. Alert and oriented x4. Lungs are clear to auscultation. Heart tones with chaotic rhythm. Abdomen with active bowel sounds. Extremities with trace edema up to the knees. Const: Vital Signs, click to edit/add: Vital Signs - 24 hr 12/07/24 14:26 12/07/24 15:28 12/07/24 15:54 Temperature Pulse Rate 96 Pulse Rate [Left P ulse Oximeter] Respiratory Rate Blood Pressure [Le ft Arm] 101/70 Blood Pressure [Ri ght Arm] 106/70 Pulse Oximetry 96 Oxygen Delivery Me thod 12/07/24 15:56 12/07/24 16:00 12/07/24 17:30 Temperature 97.4 F L Pulse Rate Pulse Rate [Left P ulse Oximeter] 84 84 Respiratory Rate 16 Blood Pressure [Le ft Arm] 94/67 107/79 Blood Pressure [Ri ght Arm] Pulse Oximetry 96 Oxygen Delivery Me thod Room Air 12/07/24 19:03 12/07/24 22:36 12/07/24 23:00 Temperature 97.8 F 97.9 F Pulse Rate Pulse Rate [Left P ulse Oximeter] 85 89 74 Respiratory Rate 16 16 16 Blood Pressure [Le ft Arm] 102/54 L 94/54 L Blood Pressure [Ri ght Arm] 85/73 L Pulse Oximetry 95 92 91 Oxygen Delivery Me thod Room Air Room Air 12/07/24 23:00 12/07/24 23:00 12/07/24 23:00 Temperature Pulse Rate 96 Pulse Rate [Left P ulse Oximeter] 74 Respiratory Rate 16 Blood Pressure [Le ft Arm] Blood Pressure [Ri ght Arm] Pulse Oximetry 91 Oxygen Delivery Me thod 12/08/24 03:00 12/08/24 07:00 12/08/24 08:55 Temperature 97.6 F 98.0 F Pulse Rate 113 H Pulse Rate [Left P ulse Oximeter] 80 91 Respiratory Rate 18 17 Blood Pressure [Le ft Arm] Blood Pressure [Ri ght Arm] 106/65 113/75 Pulse Oximetry 90 92 Oxygen Delivery Me thod Room Air Room Air 12/08/24 10:39 Temperature 97.6 F Pulse Rate Pulse Rate [Left P ulse Oximeter] 85 Respiratory Rate 18 Blood Pressure [Le ft Arm] Blood Pressure [Ri ght Arm] 116/80 Pulse Oximetry 95 Oxygen Delivery Me thod Room Air
[2024-12-08] MEDS: FUROSEMIDE 40 MG TABLET PO (14:34)
--- NOTE | 2024-12-08 15:09 | PC.NURSE ---
Pt is alert and oriented. denies pain. Afib with a BBB.?Pt is standby assist.?
--- NOTE | 2024-12-08 18:56 | PC.NURSE ---
End of shit Note (247)? ? Patient was very pleasant and cooperative throughout shift. He was admitted for shortness of breath that interfered with his ADLs. He has been alert and oriented x4, afebrile and vitally stable. Patient states that he has not been nauseated or felt any lightheadeness.? Patient has not complained of any shortness of breath in this shift ([id number]). Appetite is good. Moves SBA. Patient is on a 1999 fluid restriction.? ?
[2024-12-08] MEDS: TAMSULOSIN HCL 0.4 MG CAPSULE PO (20:34)
[2024-12-08] MEDS: ROSUVASTATIN CALCIUM 10 MG TABLET 20 MG PO (20:35)
[2024-12-09 03:00] VITALS: BP 112/79; PULSE 84; RESP 18; O2SAT 90
[2024-12-09] MEDS: MIDODRINE HCL 5 MG TABLET 10 MG PO (05:35)
[2024-12-09 06:04] LABS: Hematocrit 35.9 % (37.0-53.0); Hemoglobin* 11.7 gm/dL (13.5-17.5); Mean Corpuscular HGB Conc 33 gm/dL (32-36); Mean Corpuscular Hemoglobin 32 pg (26-34); Mean Corpuscular Volume 98 fL (80-100); Red Blood Count 3.66 m/uL (4.30-5.90); White Blood Count* 6.40 K/uL (4.50-11.00)
[2024-12-09 06:07] LABS: Slide Review Reflex No
--- NOTE | 2024-12-09 06:19 | PC.NURSE ---
end of shift: Pt is AOx4. VSS. Afebrile. Pt is up SBA GB & walker. Pt denies pain >3 throughout shift, pain med offered; pt. declined. See EMAR. Pt resting comfortably in bed, call light w/i reach.
[2024-12-09 06:20] LABS: Albumin* 3.1 g/dL (3.3-5.0); Chloride* 103 mmol/L (96-114); Potassium* 3.8 mmol/L (3.6-5.1); Sodium* 136 mmol/L (135-149)
[2024-12-09 06:23] LABS: Anion Gap 8 mEq/L (7-15); Blood Urea Nitrogen* 28 mg/dL (7-30); Calcium* 8.4 mg/dL (8.4-10.6); Carbon Dioxide* 25 mmol/L (20-32); Creatinine* 1.1 mg/dL (0.5-1.5); Est. Creatinine Clearance* 65.08; Estimated Glomerular Filt Rate 68 ml/min; Glucose* 100 mg/dL (60-115)
[2024-12-09 07:00] VITALS: BP 98/71; PULSE 88; RESP 18; TEMP 36.4; O2SAT 92
[2024-12-09 07:40] VITALS: PULSE 85
[2024-12-09 08:30] VITALS: PULSE 88
[2024-12-09] MEDS: DIGOXIN 125 MCG TABLET PO (08:30)
[2024-12-09] MEDS: METOPROLOL SUCCINATE (XL) 50 MG TAB PO (08:30)
[2024-12-09] MEDS: APIXABAN 5 MG TABLET PO (08:30)
[2024-12-09] MEDS: SPIRONOLACTONE 25 MG TABLET 12.5 MG PO (08:30)
[2024-12-09] MEDS: FUROSEMIDE 40 MG TABLET PO (08:30)
[2024-12-09] MEDS: SODIUM CHLORIDE 0.9 % (FLUSH) 10 ML SYRINGE 5 ML IVF (08:31)
[2024-12-09 09:13] VITALS: PULSE 88
--- NOTE | 2024-12-09 11:19 | PC.SOCIAL ---
Discharge planning: animal husbandry worker met with pt and his ex- this morning before discharge and explained the Medicare Rights Form and pt's right to appeal. Pt has no concerns about discharging from the hospital and is pleased to return home. Pt did express interest in [employer] Whe[employer]. Pt's address is in [place], so this worker left a message with [facility] requesting a call back to place a referral for meals on wheels. Social work to follow-up as needed.
--- NOTE | 2024-12-09 14:07 | PC.NURSE ---
Discharge - Pt alert, oriented, cooperative. Up with standby assistance. Tolerating RA and regular diet and fluids restriction per MD order. Pt denied pain, SOB, n/v. RN provided medication education to pt and friend per request. IV removed with catheter intact. Pt and friend verbalized understanding to discharge education. Pt d/c to home with friend via wheelchair at approximately 1142.
--- NOTE | 2024-12-09 15:16 | P.DS_ITS ---
DS: Providers Provider Date Seen: 12/09/24 Date of admission: 12/06/24 16:59 Primary care physician: Greg Moore MD Admitting Clinician: Wander Mendoza MD Consults: 12/06/24 16:21 Consult to Occupational Therapy [CONS] Routine Comment: Reason(s) for OT Consult:: Evaluate and Treat Any Restrictions?:: No Restrictions Consult to Physical Therapy [CONS] Routine Comment: Reason(s) for PT Consult:: Evaluate and Treat Any Restrictions?:: No Restrictions Consult to Test Baker [CONS] Routine Comment: Reason for Consult:: Discharge Planning Needs 12/07/24 08:58 Consult to Nutrition [CONS] Routine Comment: Reason for consult:: Diarrhea > 3 days Comment: HF Attending Physician on discharge: Wander Mendoza MD Date of Discharge: 12/09/24 DS: Diagnosis Discharge Diagnosis (1) Cardiogenic shock: Status: Acute Problem details: - 12/07/2024: Systolic blood pressures on admission were as low as 70-80 mmHg. Initiated midodrine 10 mg p.o. b.i.d.. Systolic blood pressures 100-110 mmHg this morning - Continue with efforts to manage his heart failure and assess his heart failure. (2) Atrial fibrillation with RVR: Status: Acute Problem details: - on metoprolol succinate 100 mg daily, will change to 50 mg po bid. - anticoagulated on Eliquis - on telemetry with resting HR 70-90 (3) Dyspnea on exertion: Status: Acute Problem details: - Differential diagnosis includes: Exacerbation of congestive heart failure, less likely bilateral lower lobes segmental PE as CTA was with inadequate contrast in the segm periph arteries. In addition, patient was not hypoxic on presentation, his tachycardia was not sinus it was irregular and likely secondary to his chronic AFib RVR. CT scan did not show right heart strain and troponin was negative. D-dimer mildly elevated. My exam did not suggest DVT, but if patient develops more signs or symptoms we could repeat CTA chest and may consider bilateral lower extremity venous Doppler. Currently patient is on Eliquis and is compliant on it. - Troponin is negative x2. BNP elevated at 9800 as compared to previous. EKG shows AFib with frequent PVCs (similar to previous EKG). - D-dimer mildly elevated at 1.1. CTA chest was done and it showed the following: No large central pulmonary embolus identified. However, several segmental pulmonary arteries are inadequately contrast opacified and can not be evaluated for acute pulmonary embolus, particularly in the bilateral lower lobes. Moderate right pleural effusion, small left pleural effusion. Mild septal thickening, compatible with component of pulmonary edema. - patient is on GDMT: Beta-timothy, Entresto, SGLT 2 inhibitor. - patient is on furosemide 40 mg daily he said it was increased a month ago, previously he used to be on furosemide 20 mg daily. - Echo 04/06: Mildly reduced global systolic function with an estimated EF of 40 - 45%. global systolic RV function is mildly reduced, mild to moderate mitral regurgitation. Moderate tricuspid regurgitation. Elevated estimated pulmonary pressures by tricuspid regurgitation velocity and right atrial pressure (30 mmHg plus RAP). - Ordered repeat echo - daily weight - patient will need diuresis, taking into consideration his low blood pressure on admission. - will need to control his heart rate (Hx of AFib), as he presented with Afib w/ rapid ventricular response. - optimize guideline-directed medical therapy for heart failure with reduced ejection fraction: for now change metoprolol succinate to 50 mg po BID, stop sacubitril-valsartan (entresto), stop empagliflozin, change furosemide to 20 mg IV BID (4) TITA (acute kidney injury): Status: Acute Problem details: -patient has creatinine baseline is 0.8, today he came in with creatinine of 1.5. -differential diagnosis: Could be related to congestive heart failure, patient will need diuresis. -repeat labs (5) HFrEF (heart failure with reduced ejection fraction): Status: Acute Problem details: - patient is on GDMT: Beta-timothy, Entresto, SGLT 2 inhibitor - change metoprolol succinate to 50 mg po bid, stop entresto and empagliflozin for now - patient is now on furosemide 40 mg po daily and said it was increased a month ago from furosemide 20 mg po daily. - Echo 04/06/2024: Mildly reduced global systolic function with an estimated EF of 40 - 45%. global systolic RV function is mildly reduced, mild to moderate mitral regurgitation. Moderate tricuspid regurgitation. Elevated estimated pulmonary pressures by tricuspid regurgitation velocity and right atrial pressure (30 mmHg plus RAP). - EDEN 12/07/2024: LVEF 25-30%, mild LV dilatation; moderately dilated RV with moderately reduced global function; moderate TR; [id number] MR; severe bi- atrial enlargement; moderate pulmonary hypertension with estimated right ventricular systolic pressure 45 mmHg plus right atrial pressure, right atrial pressure of 15 mmHg, for a total pulmonary artery systolic pressure estimate of 60 mmHg. - 12/08/2024: stop IV furosemide 20 mg twice daily, and start furosemide 40 mg po twice daily; start spironolactone 12.5 mg po daily; start lisinopril 2.5 mg po daily; continue to monitor VS and weights and physical ability (6) Abnormal finding on imaging of liver: Status: Acute Problem details: - CTA chest on admission showed: Cirrhotic liver. Mild ascites. Exophytic 3.0 cm gastric diverticulum versus gastric mass. - patient will need to follow-up with his PCP and may need a GI consultation as an outpatient. (7) Abnormal CT scan, stomach: Status: Acute Problem details: - CTA chest on admission showed: Cirrhotic liver. Mild ascites. Exophytic 3.0 cm gastric diverticulum versus gastric mass. - patient will need to follow-up with his PCP and may need a GI consultation as an outpatient. (8) Acute diastolic congestive heart failure, NYHA class 4: Status: Acute Problem details: - first lifetime presentation; has had diuretics in the past but never acute CHF - CXR c/w CHF findings - last TTE 03/26 - EF 55-60% with enlarged LV - IV lasix initiated upon admission, previously noncompliant with this 2/2 polyuria. Has taken MWF, continuing this dosing but will need escalation of diuretics in the outpatient setting - needs education on approach to dry weight and measuring oxygen saturation and dyspnea on exertion for daily lasix dosing - recommend prescription compression stockings; L>>>R for peripheral edema due to bypass grafting - monitor potassium; starting replacement - improved 3.7 - weight improved 89 -> 83kg - given TTE results below, d/c'd Nifedipine, initiated low dose Lisinopril Repeat Patient is discharged on usual home dose of Lasix. Discussed with patient and his daughter weighing himself daily and recording this. Should make plan with PCP for additional dosing based on increasing weight. Close follow-up with PCP 3-5 days. (9) Chronic anticoagulation: Status: Acute Problem details: - Apixaban 5 mg BID for a fib (10) Peripheral arterial disease: Status: Acute Problem details: - hx of left femoral-PT bypass in 2019 - chronic swelling in the left leg/ankle - has had issues with chronic wounds in bilateral extremities - Consider compression stockings (11) COPD (chronic obstructive pulmonary disease): Status: Acute Problem details: -no exacerbation of COPD at this admission -former smoker -CXR showing COPD with prominent bronchovascular markings. -on advair and albuterol -DuoNebs ordered prn Continue home medications on discharge (12) Hyperglycemia: Status: Acute Problem details: - A1c 5.9 in 03/30 -Further outpatient follow-up with PCP (13) CAD (coronary artery disease): Status: Acute Problem details: -01/2020 drug eluting stent placement to his mid LAD and mid LCx (14) Hyperlipidemia: Status: Acute Problem details: - Continue statin DS: Summary Hospital Course Hospital Course: Admission history of present illness: ?79 year old male with past medical history of atrial fibrillation on Eliquis, coronary artery disease status post PCI in 2019, heart failure with reduced ejection fraction, history of stroke in 2019, COPD and peripheral arterial disease who presents to the ED complaining of dyspnea on exertion for the past few days. I interviewed the patient while his daughter came was there. Both the patient and the family states that he started to feel unwell about 5 days-7 days ago. Patient states that for the past couple of days he thinks that he would be short of breath walking a short distance and thus he was not able to do his regular ADLs. He states that he does not have orthopnea but they said that his weight increased by 7-9 lb in the past week. He denies history of DVT/PE. He confirms that he takes his medications including Eliquis 5 mg twice daily religiously. He took his morning medications already. Patient states that he was told that he has chronic pleural effusion. Both the patient and the family does not know of any liver cirrhosis/fibrosis history but patient states that he drinks of 2 beers every night for a long time. Patient denies fevers, cough or phlegm. He also denies chest pain/discomfort or palpitations. At the ED, patient was tachycardic in the 130s on presentation, hypotensive with blood pressure of about 85/50 mm Hg. WBCs within normal limits, labs suggest TITA w/ Cr 1.5 (previously 0.8). Troponin is negative x2. BNP elevated at 9800 as compared to previous. EKG shows AFib with frequent PVCs (similar to previous EKG). D-dimer mildly elevated at 1.1. CTA chest was done and it showed the following: No large central pulmonary embolus identified. However, several segmental pulmonary arteries are inadequately contrast opacified and can not be evaluated for acute pulmonary embolus, particularly in the bilateral lower lobes. Moderate right pleural effusion, small left pleural effusion. Mild septal thickening, compatible with component of pulmonary edema. Cirrhotic liver. Mild ascites. Exophytic 3.0 cm gastric diverticulum versus gastric mass. Recommend comparison with prior studies, consider GI consultation. 12/07/2024, hospital day 2. Continues to have dyspnea with exertion and with conversation. Denies paroxysmal nocturnal dyspnea orthopnea. Little sleep last night due to various measurements and activities. Denies orthostasis, lightheadedness, syncope or near syncope. Admittedly anxious about living and dying. Tells me how to friends last week. 12/08/2024: Hospital day 3. He did realize how dyspneic he was with exertion until this morning when he notes he is starting to feel better than previously. Denies orthostasis. Tolerating diuresis. Diet is slowly returning. Able to tolerate more activity now. 12/09/2024, hospital day 4. He is feeling well enough to go home. Denies orthostasis, lightheadedness, nausea, vomiting. Still has dyspnea with exertion but much less so than when he 1st presented to the hospital. Denies paroxysmal nocturnal dyspnea or orthopnea. Denies chest heaviness, pressure, tightness, pain. Notices his peripheral edema is vastly improved. Weight on presentation 89.5 kg and today's weight is 85.4 kg. Has lost a total of 4.1 kg while in the hospital due to diuresis efforts. Status at Discharge Overall status at discharge: patient is progressing back to baseline Time Spent with Patient Time attestation: Total time spent providing and/or coordinating discharge services: Time spent: Greater than 30 minutes Exam Narrative: Exam Narrative: Examine him in his hospital room. Appears comfortable. Vision and hearing are adequate. Alert and oriented x4. Lungs are clear to auscultation. Heart tones with chaotic rhythm. Abdomen with active bowel sounds. Extremities with trace edema up to the knees. Skin changes in lower extremity consistent with chronic stasis dermatitis. Const: Vital Signs, click to edit/add: Vital Signs - 24 hr 12/08/24 16:19 12/08/24 20:10 12/08/24 23:00 Temperature 97.6 F 98.4 F Pulse Rate 73 Pulse Rate [Left P ulse Oximeter] 66 76 Respiratory Rate 20 18 Blood Pressure [Le ft Arm] 96/76 Blood Pressure [Ri ght Arm] 104/67 Pulse Oximetry 94 91 Oxygen Delivery Me thod Room Air Room Air 12/08/24 23:00 12/08/24 23:00 12/08/24 23:12 Temperature Pulse Rate 64 Pulse Rate [Left P ulse Oximeter] 76 Respiratory Rate 18 Blood Pressure [Le ft Arm] Blood Pressure [Ri ght Arm] Pulse Oximetry 91 Oxygen Delivery Me thod 12/09/24 03:00 12/09/24 07:00 12/09/24 07:00 Temperature 97.6 F Pulse Rate Pulse Rate [Left P ulse Oximeter] 84 88 Respiratory Rate 18 18 Blood Pressure [Le ft Arm] 112/79 98/71 Blood Pressure [Ri ght Arm] Pulse Oximetry 90 92 92 Oxygen Delivery Me thod Room Air Room Air 12/09/24 07:40 12/09/24 08:30 12/09/24 09:13 Temperature Pulse Rate 85 88 Pulse Rate [Left P ulse Oximeter] 88 Respiratory Rate Blood Pressure [Le ft Arm] Blood Pressure [Ri ght Arm] Pulse Oximetry Oxygen Delivery Me thod DS: Data Data Completed and Pending Completed studies during hospitalization: Procedures Introduction of Other Therapeutic Substance into Respiratory Tract, Via Natural or Artificial Opening (04/05/24) Labs on day of discharge: Labs from last 24 hours 12/09/24 05:37 WBC 6.40 RBC 3.66 L Hgb 11.7 L Hct 35.9 L MCV 98 MCH 32 MCHC 33 Plt Count 112 L Sodium 136 Potassium 3.8 Chloride 103 Carbon Dioxide 25 Anion Gap 8 BUN 28 Creatinine 1.1 Estimated Creat Clear 65.08 Estimated GFR 68 Glucose 100 Calcium 8.4 Phosphorus 3.8 Magnesium 1.7 Albumin [address] angiogram of chest: Radiologist's impression: FINDINGS: Heart and vasculature: Cardiomegaly. Atherosclerotic coronary artery calcifications. No filling defects identified within the main, lobar, and contrast opacified portions of the segmental pulmonary arteries. However, several segmental pulmonary arteries are inadequately contrast opacified, and can not be evaluated for acute pulmonary embolus, particularly in the bilateral lower lobes. Lungs and pleura: Moderate right pleural effusion, small left pleural effusion, with associated bilateral lower lobe compressive atelectasis. Additional small areas of loculated pleural fluid versus subsegmental atelectasis in the right middle lobe and lingula. Mild background centrilobular emphysema. Mild septal thickening, compatible with component of pulmonary edema. Lung parenchyma evaluation is limited due to motion artifact, no large focal consolidation or pulmonary masses identified. No evidence of pulmonary infarct. Thyroid and lower neck: No suspicious thyroid nodule. Mediastinum/art: Mildly enlarged mediastinal lymph nodes, which may be reactive. Chest wall: No axillary lymphadenopathy. Upper abdomen: Nodular liver contour, compatible with cirrhosis. Exophytic 3.0 cm gastric diverticulum versus gastric mass (series 4, image 163). Mild ascites. Bones: Multilevel degenerative changes of the spine. Bones are diffusely osteopenic. IMPRESSION: 1. No large central pulmonary embolus identified. However, several segmental pulmonary arteries are inadequately contrast opacified and can not be evaluated for acute pulmonary embolus, particularly in the bilateral lower lobes. 2. Significant cardiomegaly. Moderate right pleural effusion, small left pleural effusion. Mild septal thickening, compatible with component of pulmonary edema. 3. Mildly enlarged mediastinal lymph nodes, which may be reactive. 4. Cirrhotic liver. Mild ascites. Exophytic 3.0 cm gastric diverticulum versus gastric mass. Recommend comparison with prior studies, consider GI consultation. Please note that all CT scans at this facility use dose modulation, iterative reconstruction, and/or weight-based dosing when appropriate to reduce radiation dose to as low as reasonably achievable. Dictated by Earl Batista MD @ 12/06/2024 1:32:35 PM ----- ADDENDUM ----- Coronal and sagittal MIP reconstructions were performed. Discharge Plan Discharge Disposition: Home, Self-Care Date of Admission: 12/06/24 16:59 Attending Provider on Discharge: Wander Mendoza Primary Care Provider: Greg Moore Condition: Improved Anticipated Discharge Date/Time: 12/09/24 11:00 Discharge Medications: New furosemide 40 mg Tablet 40 mg PO BID@0800,1400 Qty: 60 2RF metoprolol succinate 50 mg Tablet Extended Release 24 Hr 50 mg PO BID 30 Days Qty: 60 2RF midodrine 5 mg Tablet 10 mg PO 0600,1800 30 Days Qty: 120 0RF spironolactone 25 mg Tablet 12.5 mg PO DAILY 30 Days Qty: 30 1RF digoxin 125 mcg (0.125 mg) Tablet 125 mcg PO DAILY 30 Days Qty: 30 2RF Continued Eliquis 5 mg tablet 5 mg PO BID fluticasone propion-salmeterol 250-50 mcg/dose blister with device 1 inh inhalation BID tamsulosin 0.4 mg capsule 0.4 mg PO HS cholecalciferol (vitamin D3) 25 mcg (1,000 unit) tablet 5,000 unit PO Q OTHER DAY gabapentin 100 mg capsule 100 mg PO TID PRN Stiolto Respimat 2.5-2.5 mcg/actuation mist 2 inh inhalation DAILY rosuvastatin [Crestor] 20 mg tablet 20 mg PO HS emollient [Vanicream] Cream 1 applic topical DAILY PRN albuterol sulfate 90 mcg/actuation HFA aerosol inhaler 2 puff inhalation QID PRN Discontinued metoprolol succinate 100 mg tablet extended release 24 hr 100 mg PO DAILY empagliflozin 10 mg tablet 10 mg PO DAILY furosemide 40 mg tablet 40 mg PO DAILY sacubitril-valsartan [Entresto] 24-26 mg tablet 1 tab PO BID Discharge Orders: Discharge Order (Routine); Ordered 12/09/24 Ordered By: Wander Mendoza Patient Education: Spironolactone (By mouth), Digoxin (By mouth), Midodrine (By mouth), Heart Failure (DC) Additional Instructions: 1. Weigh self and record results once daily around the same time of day, best in the morning after eliminating in the bathroom - bring this record with you to you clinic appointments 2. Follow-up with primary care physician in 5-10 days 3. Follow-up with newspaper carrier in next 2-4 weeks Activity Level: Activity as Tolerated and Other Discharge Diet: Heart Healthy (2 gm sodium, low fat) and Other Follow Up Appointments: Greg Moore MD [Primary Care Provider, Family Practice] - 12/15/24 10:50 am Referral Note: [facility] for hospital follow-up. Provider,Not a Local [Non-Staff, Family Practice] Forms: Patient Belongings, MyHealth Info Instructions
--- NOTE | 2024-12-10 10:24 | PC.SOCIAL ---
Discharge planning: wireworker supervisor spoke to Haley Alegre from [facility] this morning #[phone] who stated she would reach out to the pt about Meals on Wheels. Social work to follow-up as needed.
== END 2024-12-09 11:42 | disposition home or self-care (01) | DRG 291 ==
LOC: ED 14:04 → MEDSURG 14:31
PROVIDERS: Admitting Provider Student in an Organized Health Care Education/Training Program; Emergency Provider Internal Medicine; PCP Student in an Organized Health Care Education/Training Program; Visit Provider Internal Medicine
DX: R57.0 Cardiogenic shock (principal); I50.43 Acute on chronic combined systolic (congestive) and diastolic (congestive) heart failure; I48.20 Chronic atrial fibrillation, unspecified; N17.9 Acute kidney failure, unspecified; R18.8 Other ascites; K74.60 Unspecified cirrhosis of liver; I11.0 Hypertensive heart disease with heart failure; R73.9 Hyperglycemia, unspecified; J44.9 Chronic obstructive pulmonary disease, unspecified; Z79.01 Long term (current) use of anticoagulants; I25.10 Atherosclerotic heart disease of native coronary artery without angina pectoris; I73.9 Peripheral vascular disease, unspecified; I08.1 Rheumatic disorders of both mitral and tricuspid valves; Z98.61 Coronary angioplasty status; Z95.820 Peripheral vascular angioplasty status with implants and grafts; Z95.828 Presence of other vascular implants and grafts; Z87.891 Personal history of nicotine dependence; Z86.73 Personal history of transient ischemic attack (TIA), and cerebral infarction without residual deficits; E78.5 Hyperlipidemia, unspecified
CPT/HCPCS: 36415; 62273; 71045; 71275; 80053; 80069; 83735; 83880; 84484; 85025; 85027; 85379; 86140; 87631; 93005; 93306; 94761; 97110; 97116; 97161; 97165; 97530; 97535; 99283; 99285; A9270; J1938; Q9967